=== PATIENT | male | born 1955 | race Caucasian/White ===

== ENCOUNTER 2025-06-23 22:57 | Emergency (ER) | payer SELFPAY ==
--- OUTSIDE RECORDS SUMMARY | 2025-06-04 17:25 | XMS_ITS | Encounter Summary ---
Author Organization [employer] [facility] tem Address [id number] [address] [place] [address] Care Team Providers Care Process Manager Name Role Phone Hansen Clarisadieudonne GUZMAN-GAME PROTECTOR Primary Care Provider Reason for Referral * Misc (Routine) - Pending ReviewSpecialtyDiagnoses / ProceduresReferred By ContactReferred To Contact Procedures Discharge Follow-Up Mable Marroquin MD [address] [place] [address] Phone: tel: fax: Referral IDStatusReasonStart DateExpiration DateVisits RequestedVisits [id number] * Misc (Routine) - Pending ReviewSpecialtyDiagnoses / ProceduresReferred By ContactReferred To Contact Diagnoses Nontraumatic intracerebral hemorrhage, unspecified cerebral location, unspecified laterality ([facility]) Procedures Follow-up with primary care provider Mable Marroquin MD [address] [place] [address] Phone: tel: fax: Referral IDStatusReasonStart DateExpiration DateVisits RequestedVisits [id number] * Diagnostic Imaging (Routine) - Pending ReviewSpecialtyDiagnoses / Procedures Referred By ContactReferred To ContactRadiology Diagnoses Nontraumatic intracerebral hemorrhage, unspecified cerebral location, unspecified laterality ([facility]) Procedures CT brain without contrast Mable Marroquin MD [address] [place] [address] Phone: tel: fax: Referral IDStatusReasonStart DateExpiration DateVisits RequestedVisits [id number] * Vascular (Routine) - AuthorizedSpecialtyDiagnoses / ProceduresReferred By ContactReferred To Contact Diagnoses Nontraumatic intracerebral hemorrhage, unspecified cerebral location, unspecified laterality ([facility]) Procedures Vas venous duplex lwr bilateral Mable Marroquin MD [address] [place] [address] Phone: tel: fax: Referral IDStatusReasonStart DateExpiration DateVisits RequestedVisits [id number]/31/202510/31/202666 Reason for Visit * ReasonCommentsFall * Auth/CertSpecialtyDiagnoses / ProceduresReferred By ContactReferred To Contact Diagnoses ICH (intracerebral hemorrhage) ([facility]) [facility] - Emergency Department [address] [place] [address] Phone: tel: fax: Referral IDStatusReasonStart DateExpiration DateVisits RequestedVisits [id number] Encounter Details DateTypeDepartmentCare Team (Latest Contact Info)Jxngapslzrr54/13/2025 5:25 PM EDT - 06/22/2025 5:58 PM EDTHospital Encounter [facility] - GEN 8 Acute [address] [facility] [place] [address] Carter Smith W, DO [address] [place] [address] Patricia Mcclellan MD [address] [place] [address], [facility] [address] [place] [address] Traumatic intracerebral hemorrhage with unknown loss of consciousness status, unspecified laterality, subsequent encounter (Primary Dx); Type 2 diabetes mellitus with other specified complication, unspecified whether detention insulin use ([facility]); Nontraumatic intracerebral hemorrhage, unspecified cerebral location, unspecified laterality [place] Discharge Disposition: [facility] Facility-Medicare Cert Social History Tobacco UseTypesPacks/DayYears UsedDateSmoking Tobacco: Every VvvHtljoiqqho260.8 Started: 1970Smokeless Tobacco: Never Tobacco Cessation:Ready to Q uit: No; Counseling Given: Yes Alcohol UseStandard Drinks/WeekCommentsYes0 (1 standard drink = 0.6 oz pure alcohol)[facility] UtilitiesAnswerDate RecordedIn the past 12 months has the [employer], gas, oil, or water fitaborate threatened to shut off services in your home?No 06/05/2025UDIT-CAnswerDate RecordedQ1: How often do you have a drink containing alcohol?Patient unable to kjhivb2606/05/2025Q2: How many drinks containing alcohol do you have on a typical day when you are drinking?Patient unable to answer 06/05/2025Q3: How often do you have six or more drinks on one occasion?Patient unable to tqxkbc4206/05/2025PRAPARE - TransportationAnswerDate RecordedIn the past 12 months, [...] as a part of a household?No5ChildcareAnswer Date OtrfpormBumcylxrxDbvarlz57/12/2019EmploymentAnswerDate RecordedEmployment Srvkdsf7102/01/2019Hunger ScreeningAnswerDate RecordedWithin the past 12 months we worried whether our food would run out before we got money to buy more.Never True06/11/2025Within the past 12 months the food we bought just didn't last and we didn't have money to get more.Never True06/11/2025Sex and Gender Information ValueDate RecordedSex Assigned at BirthNot on fileLegal PtoHhbm1203/28/2015 11:52 AM EDTGender IdentityNot on fileSexual OrientationNot on filedocumented as of this encounter Last Filed Vital Signs Vital SignReadingTime TakenCommentsBlood Uizjnugn602/6506/22/2025 11:12 AM EDT Uwdmr939706/22/2025 11:12 AM JXTDuykbeddjtj09.8 ??C (98.3 ??F)06/22/2025 11:12 AM EDTRespiratory Pacd012006/22/2025 11:12 AM EDTOxygen Neyiuawlaf49%06/22/2025 11:12 AM EDTInhaled Oxygen Concentration--Fdxkqj72.6 kg (215 lb 2.7 oz)06/22/2025 5:00 AM RWWCcxkow070.9 cm (6')06/12/2025 4:00 AM EDTBody Mass Index29.181 4:00 AM EDTdocumented in this encounter Functional Status * AUDIT-C ScoreAnswerDate of AssessmentAuthor- 10:09 AM Laura Johnson RN * QuestionAnswerDate of AssessmentAuthorQ1: How often do you have a drink containing alcohol?Patient unable to dyuojt6406/05/2025 10:09 AM Laura Johnson RNQ2: How many drinks containing alcohol do you have on a typical day when you are drinking?Patient unable to hxocxs4006/05/2025 10:09 AM Laura Johnson RNQ3: How often do you have six or more drinks on one occasion?Patient unable to znnmea4606/05/2025 10:09 AM Laura Johnson RN * QuestionAnswerDate of AssessmentAuthorFunctional QzcjdiXfzwpcphmwg86/14/2025 9:59 AM Laura Johnson RN documented as of this encounter Mental Status * QuestionAnswerEntry DateAuthorOverall Cognitive HeuxeyC33/27/2025 9:45 AM EDT Sue Hernandez OTA/Brendon * QuestionAnswerEntry DateAuthorOverall Cognitive LdulceL50/15/2025 9:37 AM EDT Gary Hernandez, RAKEL-HOSPITALITY DIRECTOR documented in this encounter Discharge Instructions * [...] of Discharge MedicationSigDispense QuantityRefillsLast FilledStart DateEnd Date aspirin 81 mg Take 1 tablet (81 mg total) by mouth in the morning. atorvastatin (LIPITOR) 20 mg tablet Take 1 tablet (20 mg total) by mouth every morning. TAKE 1 TABLET (20 MG) BY MOUTH IN THE LYGFOUH6705/15/2025 magnesium aspart,citrate,oxide (TRIPLE MAGNESIUM COMPLEX) 400 mg magnesium capsule Take 400 mg by mouth in the morning. ACCU-CHEK GUIDE ME GLUCOSE MTR misc USE DAILY OR DIRECTED FOR MONITORING OF DIABETES.05/15/2025 ACCU-CHEK GUIDE TEST STRIPS strip USE DAILY05/15/2025 ACCU-CHEK SOFTCLIX LANCETS lancets USE TO TEST DAILY05/15/2025 amLODIPine (NORVASC) 10 mg tablet Take 1 tablet (10 mg total) by mouth in the morning. 90 tablet carvediloL (COREG) 12.5 mg tablet Take 1 [...] mellitus with other specified complication, unspecified whether chain builder insulin use ([facility])Inject 12 Units under the skin in the morning. 15 mL 06/22/2025 insulin lispro (HumaLOG) 100 unit/mL insulin pen Give 6 units with meals and follow sliding scale 15 mL insulin lispro (HumaLOG) 100 unit/mL insulin pen Inject 1-5 Units under the skin 4 (four) times a day with meals and nightly. 15 mL QUEtiapine (SEROquel) 25 mg tablet Take 1 tablet (25 mg total) by mouth nightly. 30 tablet documented as of this encounter Progress Notes * [...] jelly in kit into urethra, advanced 16 Cymro coude into patient's bladder without difficulty, return of yellow urine. Patient tolerated well. As per previous note patient to discharge home with Mayo catheter, and follow up in 1-2 weeks [address]Dr. Bess to discuss possible options for intervention. - ANDREW SERNA 06/22/25 2:54 PM ANDREW Serna 06/22/25 1453 * Renita Matson DO - 06/22/2025 12:23 [...] which is 53. Rheumatoid factor is normal. Ymdk-bydjud-sulxntyf DNA is negative. LUIZA is negative. Glomerular [...] WEIGHT: Wt Readings from Last 3 Encounters: 06/22/25 97.6 kg (215 lb 2.7 oz) 06/04/25 [...] Results from last 7 days Lab Units 06/22/2579906/21/2560906/20/2561006/19/2560006/18/25 0555 SODIUM mmol/L 150* 148* 146 144 [...] from last 7 days Lab Units 06/22/25 0806/21/2560906/20/2561006/19/25 0606/18/25 0555 WBC x10E9/L 5.6 5.0 4.6 5.6 5.5 HEMOGLOBIN g/dL 13.6 13.2 13.3 13.4 13.6 HEMATOCRIT % 40.1 38.9* 39.3 39.3 39.6 PLATELETS X10E9/L 261 270 245 225 225 Results from last 7 days Lab Units 06/22/25 0806/21/2560906/20/2561006/19/25 0606/18/25 0555 PROTEIN TOTAL g/dL 7.2 7.0 6.9 [...] name. RENITA MATSON D.O. [facility] Thank you for your consultation and allowing us to participate in the care of Gianni Montelongo please do not hesitate to call us with any questions at: Office: [phone] Office Answering Service: [phone] Please feel free to contact me through [employer] chat during the daytime hours, if [...] which is 53. Rheumatoid factor is normal. Uprc-ukvnit-zpktmgze DNA is negative. LUIZA is negative. Glomerular [...] 3.9 3.7 3.7 3.8 3.7 AST U/L ALT U/L Vas venous duplex lwr bilateral Result Date: [...] name. RENITA MATSON D.O. [facility] Thank you for your consultation and allowing us to participate in the care of Gianni Montelongo please do not hesitate to call us with any questions at: Office: [phone] Office Answering Service: [phone] Please feel free to contact me through [employer] chat during the daytime hours, if [...] outside hospital and thereafter was transferred to [facility] via air. Past medical history significant [...] by the trauma service and transferred to [facility]. Upon arrival to [facility] ED, vascular neurology consulted. Upon my evaluation [...] Diagnosis Date Diabetes mellitus type 2, controlled ([facility] DVT (deep venous thrombosis) [place] GERD (gastroesophageal reflux disease) Hyperlipidemia Hypertension ICH (intracerebral hemorrhage) ([facility] 06/04/2025 Osteoarthritis Past surgical history: Past Surgical [...] and therefore the patient was transferred to [facility] for further workup. On examination, the patient [...] Heparin 5000U TID Staffed with: Dr. Rimma Butt MD PGY-2 Neurology Resident 06/21/25 11:30 [...] Tests, and Procedures: 06/06- failed BSSE 06/08- HOSPITALITY DIRECTOR still with NPO recs NGT placed 06/11- [...] (H) 06/05/2025 Lab Results Component Value Date NUWINTMC03 274 06/07/2025 Lab Results Component Value Date [...] injection 5,000 Units 5,000 Units subcutaneous Q8H [facility] Alphonse Cuenca MD 5,000 Units at 06/20/25 1332 hydrALAZINE (APRESOLINE) injection 10 mg 10 mg intravenous Q4H PRN Alphonse Cuenca MD 10 mg at 06/05/25 1430 hydrALAZINE (APRESOLINE) tablet 100 mg 100 mg oral Q8H [facility] Vicollin Yuko, DO 100 mg at 06/20/25 1332 [...] mg/mL premix) 4,000 mg intravenous PRN Alphonse uCenca MD melatonin (CIRCADIN) tablet 5 mg 5 [...] Nightly Alphonse Cuenca MD 25 mg at 06/19/252101 sodium phosphate 20 mmol in sodium chloride [...] at 06/20/25 0551 Nutrition Focused Physical Findings stools 2175ml UO Skin (per nursing flow sheets): Skin Color: [place]; Pale (06/20/25 1200) Skin Temp: Dry (06/20/25 [...] Frozen Dessert Supplement Frequency: TID 06/14/25 1053 Inpatient Nutrition Support History: 06/06- TF [...] 06/11) Admit Weight: 117.3kg (Bed Scale, 06/04) [place] Body Weight: 80.9kg Weight Changes: - Admit Body Mass Index: 35.1 kg/m??. Current Body Mass Index: Body mass index is 29.97 kg/m??. Comparative Standards: Estimated Energy Needs: 4041-2796 kcals daily. Method and weight used: 25-32 kcal/kg ibw Estimated Protein Needs: 97-160 grams daily. Method and weight used: 1.2-2g protein/kg ibw Estimated Fluid Needs: 9612-5608 ml daily. Method weight used: 1 ml/kg/kcal [...] EVALUATION: I/O,wts, labs, supplements, POC Pippa Cowart R.D,LRommel Clinical dietitian Patient Touch extension:[phone] Direct Dial phone number: [phone] 06/20/25 2:22 PM * Lux Anglin MD - 06/20/2025 1:00 PM EDT Images from the original note were not included. [facility] Endocrinology [facility] [address] [place] [address] Service Pager: Reinier Patel MD, Interim Chief MD Henry Mulligan MD Margo Joubran, PA-C Alexandrea Vizzaccaro, PA-C Austin Howard, PA-C Manali Pragani, MD, Fellow Herbie Zhao MD, Fellow Ricardo Real MD, Fellow Katrin Jules MD, Fellow NO NEED to PAGE for NEW CONSULTS Secure [employer] chat to Academic Endocrinology Page for immediate [...] appropriate. Blood glucoses above 200 mg/dl are [facility] monitored performance measures. 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 [...] Lux Anglin MD PGY 1 Internal Medicine [facility] Cosigned by Henry Godwin MD at 06/20/2025 [...] appropriate, while patient is in the hospital Henyr Godwin MD 06/20/25 * Ed Ortiz MD [...] which is 53. Rheumatoid factor is normal. Itzl-wsrnjf-efaejhld DNA is negative. LUIZA is negative. Glomerular [...] 114* 112* 110* 110* 112* CO2 mmol/L BUN mg/dL 47* 55* 55* 51* 54* [...] Units 06/20/25 0611 06/19/25 0601 06/18/25 0555 06/17/2508 06/16/25 0548 PROTEIN TOTAL g/dL 6.9 7.0 7.0 7.0 6.9 ALBUMIN g/dL 3.7 3.7 3.8 3.7 3.7 AST U/L 32 ALT U/L No results found. IMPRESSION: Acute Kidney Injuiry [...] scale Ed Ortiz M.D. [facility] Thank you for your consultation and allowing us to participate in the care of Gianni Montelongo please do not hesitate to call us with any questions at: Office: [phone] Office Answering Service: [phone] Please feel free to contact me through [employer] chat during the daytime hours, if [...] outside hospital and thereafter was transferred to [facility] via air. Past medical history significant [...] by the trauma service and transferred to [facility]. Upon arrival to [facility] ED, vascular neurology consulted. Upon my evaluation [...] Diagnosis Date Diabetes mellitus type 2, controlled ([facility] DVT (deep venous thrombosis) [place] GERD (gastroesophageal reflux disease) Hyperlipidemia Hypertension ICH (intracerebral hemorrhage) ([facility] 06/04/2025 Osteoarthritis Past surgical history: Past Surgical [...] and therefore the patient was transferred to [facility] for further workup. On examination, the patient [...] the original note were not included. Jr Mackenzie.Liborio M.D., Peter Bhatti M.D., Gianni Escalante M.D., Leatha [...] Eliquis, diabetes, and hypertension who presented to [facility] on 06/04/2025 due to altered mental status. [...] Units Date/Time Urine Culture Urine, Indwelling Catheter [[id number]] Collected: 06/17/25 1348 Specimen: Urine, Indwelling Catheter Updated: 06/18/25 1246 CULTURE RESULTS NO GROWTH AT <1000 CFU/mL Blood culture #1 [[id number]] Collected: 06/17/25 1320 Specimen: Blood, Venous Updated: 06/19/25 1401 CULTURE RESULTS NO GROWTH 2 DAYS Narrative: Suboptimal volume of blood collected, Results may be affected. Blood culture #2 [[id number]] Collected: 06/17/25 1320 Specimen: Blood, Venous Updated: [...] Units Date/Time Urine Culture Urine, Indwelling Catheter [[id number]] Collected: 06/17/25 1348 Specimen: Urine, Indwelling Catheter Updated: 06/18/25 1246 CULTURE RESULTS NO GROWTH AT <1000 CFU/mL Blood culture #1 [[id number]] Collected: 06/17/25 1320 Specimen: Blood, Venous Updated: 06/19/25 1401 CULTURE RESULTS NO GROWTH 2 DAYS Narrative: Suboptimal volume of blood collected, Results may be affected. Blood culture #2 [[id number]] Collected: 06/17/25 1320 Specimen: Blood, Venous Updated: [...] IMPRESSION: Feeding tube tip in stomach. Wo rkstation:[id number] Finalized by Alexis Sánchez MD on 06/09/2025 [...] from the original result were not included. [facility] Neurology Video/EEG Monitoring REPORT EEG Service Date(s): 06/06/25 from 06:30 until 10:35 Date of Report: 06/06/25 History: Gianni Babin is 70 y.o. male with a history of intraparenchymal hemorrhage and encephalopathy who isundergoing video/EEG monitoring to evaluate for seizures. Centrally active medications: Keppra Procedure: This video/EEG monitoring was acquired with electrodes placed according to the Wlbobcmxyqjwp11-79 electrode placement system,using collodion. The EEG was [...] the referring provider. Jennifer German M.D., Ph.D. [facility] Neurology X-ray abdomen NG Tube placement 1 [...] from the original result were not included. [facility] Neurology Video/EEG Monitoring REPORT EEG Service Date(s): 06/05/25 @ 06:30 until @ 06:30 Date of Report: 06/06/25 History: Gianni Babin is 70 y.o. male with a history of intraparenchymal hemorrhage and encephalopathywho is undergoing video/EEG monitoring to evaluate for seizures. Centrally active medications: Keppra Procedure: This video/EEG monitoring was acquired with electrodes placed according to the Zonxwngbaxmjp79-27 electrode placement system,using collodion. The EEG was [...] the referring provider. Jennifer German M.D., Ph.D. [facility] Neurology Background with right temporal slowing EEG Video Monitoring Daily Result Date: 06/05/2025 Narrative: Images from the original result were not included. [facility] Neurology Video/EEG Monitoring REPORT EEG Service Date(s): 06/05/25 form 04:27 until 06:30 Date of Report: 06/05/25 History: Gianni Babin is 70 y.o. male with a history of intraparenchymal hemorrhage and encephalopathy who isundergoing video/EEG monitoring to evaluate for seizures. Centrally active medications: Keppra Procedure: This video/EEG monitoring was acquired with electrodes placed according to the Oamuktekezauv90-75 electrode placement system,using collodion. The EEG was [...] seizures were recorded. Ronda Rowell M.D., Ph.D. [facility] Neurology Baseline Routine EEG Result Date: 06/05/2025 Narrative: Images from the original result were not included. PA Neurology EEG REPORT EEG Service Date: 06/05/25 Date of Report: 06/05/25 History: Gianni Babin is a 70 y.o. male with alteredmental status and right intraparenchymal hemorrhage who is undergoing EEG to evaluate for seizures. Centrally active medications: Keppra. Procedure: This EEG was acquired with electrodes placed according to the Dxirwcpkoyacv16-62 electrode placement system. The EEG was acquired [...] of intermittent seizures. Jennifer German M.D., Ph.D. [facility] Neurology Background CT brain without contrast [...] Automated exposure control was utilized. The [place] Symptomatic carotid Endarterectomy Trial (NASCET) method for [...] Patient asleep upon my arrival. IMPRESSIONS: 1. 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 Liborio Mann Jr., M.D. [facility] [phone] 3:40 p.m. on 06/20/2025 addendum: Discussed patient's [...] indwelling Mayo catheter. Liborio Mann Jr., M.D. [facility] [phone] * Katrin Jules MD - 06/19/2025 2:07 PM EDT Images from the original note were not included. [facility] Endocrinology [facility] [address] [place] [address] Service Pager: Reinier Patel MD, Interim Chief MD Henry Mulligan MD Margo Joubran, PACASSANDRA Jeffries PA-C Manali Pragani, MD, Fellow Herbie Zhao MD, Fellow Ricardo Real MD, Fellow Katrin Jules MD, Fellow NO NEED to PAGE for NEW CONSULTS Secure [employer] chat to Academic Endocrinology Page for immediate attention. Diabetes Management Service Progress Note Patient : Gianni Babin; 70 y.o. Location: [facility] Admit Date: 06/04/2025 Hospital Day: [...] appropriate. Blood glucoses above 200 mg/dl are [facility] monitored performance measures. 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 [...] 110* 112* -- 116* CO2 mmol/L 23 -- 24 BUN mg/dL 55* 55* [...] which is 53. Rheumatoid factor is normal. Jmor-tndosr-ldivjkmw DNA is negative. LUIZA is negative. Glomerular [...] scale Ed Ortiz M.D. [facility] Thank you for your consultation and allowing us to participate in the care of Gianni Montelongo please do not hesitate to call us with any questions at: Office: [phone] Office Answering Service: [phone] Please feel free to contact me through [employer] chat during the daytime hours, if [...] outside hospital and thereafter was transferred to [facility] via air. Past medical history significant [...] by the trauma service and transferred to [facility]. Upon arrival to [facility] ED, vascular neurology consulted. Upon my evaluation [...] Diagnosis Date Diabetes mellitus type 2, controlled [place] DVT (deep venous thrombosis) [place] GERD (gastroesophageal reflux disease) Hyperlipidemia Hypertension ICH (intracerebral hemorrhage) ([facility] 06/04/2025 Osteoarthritis Past surgical history: Past Surgical [...] and therefore the patient was transferred to [facility] for further workup. On examination, the patient [...] Eliquis, diabetes, and hypertension who presented to [facility] on 06/04/2025 due to altered mental status. [...] Intake/Output Summary (Last 24 hours) at 06/19/2025 075 Last data filed at 06/19/2025 0413 Gross [...] Units Date/Time Urine Culture Urine, Indwelling Catheter [[id number]] Collected: 06/17/25 1348 Specimen: Urine, Indwelling Catheter Updated: 06/18/25 1246 CULTURE RESULTS NO GROWTH AT <1000 CFU/mL Blood culture #1 [[id number]] Collected: 06/17/25 1320 Specimen: Blood, Venous Updated: 06/19/25201 CULTURE RESULTS NO GROWTH AT 36 HOURS Narrative: Suboptimal volume of blood collected, Results may be affected. Blood culture #2 [[id number]] Collected: 06/17/25 1320 Specimen: Blood, Venous Updated: 06/19/25201 CULTURE RESULTS NO GROWTH AT 36 HOURS [...] Units Date/Time Urine Culture Urine, Indwelling Catheter [[id number]] Collected: 06/17/25 1348 Specimen: Urine, Indwelling Catheter Updated: 06/18/25 1246 CULTURE RESULTS NO GROWTH AT <1000 CFU/mL Blood culture #1 [[id number]] Collected: 06/17/25 1320 Specimen: Blood, Venous Updated: 06/19/25 0202 CULTURE RESULTS NO GROWTH AT 36 HOURS Narrative: Suboptimal volume of blood collected, Results may be affected. Blood culture #2 [[id number]] Collected: 06/17/25 1320 Specimen: Blood, Venous Updated: [...] IMPRESSION: Feeding tube tip in stomach. Wo rkstation:[id number] Finalized by Alexis Sánchez MD on 06/09/2025 [...] from the original result were not included. PA Neurology Video/EEG Monitoring REPORT EEG Service Date(s): 06/06/25 from 06:30 until 10:35 Date of Report: 06/06/25 History: Gianni Babin is 70 y.o. male with a history of intraparenchymal hemorrhage and encephalopathy who isundergoing video/EEG monitoring to evaluate for seizures. Centrally active medications: Keppra Procedure: This video/EEG monitoring was acquired with electrodes placed according to the Tmglxtnkaxzro54-66 electrode placement system,using collodion. The EEG was [...] the referring provider. Jennifer German M.D., Ph.D. [facility] X-ray abdomen NG Tube placement 1 [...] from the original result were not included. [facility] Neurology Video/EEG Monitoring REPORT EEG Service Date(s): 06/05/25 @ 06:30 until @ 06:30 Date of Report: 06/06/25 History: Gianni Babin is 70 y.o. male with a history of intraparenchymal hemorrhage and encephalopathywho is undergoing video/EEG monitoring to evaluate for seizures. Centrally active medications: Keppra Procedure: This video/EEG monitoring was acquired with electrodes placed according to the Kwlelslgdfpnd46-20 electrode placement system,using collodion. The EEG was [...] the referring provider. Jennifer German M.D., Ph.D. [facility]rology Background with right temporal slowing EEG Video Monitoring Daily Result Date: 06/05/2025 Narrative: Images from the original result were not included. [facility] Neu[facility] Video/EEG Monitoring REPORT EEG Service Date(s): 06/05/25 form 04:27 until 06:30 Date of Report: 06/05/25 History: Gianni Babin is 70 y.o. male with a history of intraparenchymal hemorrhage and encephalopathy who isundergoing video/EEG monitoring to evaluate for seizures. Centrally active medications: Keppra Procedure: This video/EEG monitoring was acquired with electrodes placed according to the Rwgdvwcylykng45-47 electrode placement system,using collodion. The EEG was [...] seizures were recorded. Ronda Rowell M.D., Ph.D. [facility] Baseline Routine EEG Result Date: 06/05/2025 Narrative: Images from the original result were not included. [facility] Neurology EEG REPORT EEG Service Date: 06/05/25 Date of Report: 06/05/25 History: Gianni Babin is a 70 y.o. male with alteredmental status and right intraparenchymal hemorrhage who is undergoing EEG to evaluate for seizures. Centrally active medications: Keppra. Procedure: This EEG was acquired with electrodes placed according to the Uutxfpamxelix80-95 electrode placement system. The EEG was acquired [...] of intermittent seizures. Jennifer German M.D., Ph.D. [facility] Neurology Background CT brain without contrast [...] Automated exposure control was utilized. The [place] Symptomatic carotid Endarterectomy Trial (NASCET) method for [...] orientation based on speech difficulties. IMPRESSIONS: 1. 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 Liborio Mann Jr., M.D. [facility] [phone] 5:31 p.m. on 06/19/2025 addendum: Very helpful [...] this patient's care. Liborio Mann Jr., M.D. [facility] [phone] * Lux Anglin MD - 06/18/2025 1:25 PM EDT Images from the original note were not included. [facility]ocrinology [facility] [address] [place] [address] Service Pager: Reinier Patel MD, Interim Chief MD Henry Mulligan MD Margo Joubran, CASSANDRA Seth PA-C Manali Pragani, MD, Fellow Herbie Zhao MD, Fellow Ricardo Real MD, Fellow Katrin Jules MD, Fellow NO NEED to PAGE for NEW CONSULTS Secure epic chat to Academic Endocrinology Page for immediate attention. Diabetes Management Service Progress Note Patient : Gianni Babin; 70 y.o. Location: [place] [address] Admit Date: 06/04/2025 Hospital Day: Hospital Day: [...] appropriate. Blood glucoses above 200 mg/dl are [facility] monitored performance measures. 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 [...] 112* CO2 mmol/L 23 -- 24 25 BUN mg/dL 55* 51* 54* -- 49* [...] Lux Anglin MD PGY 1 Internal Medicine [facility] Cosigned by Henry Godwin MD at 06/18/2025 [...] 112* -- 116* 112* CO2 mmol/L 23 26 23 -- 24 25 ANION GAP mmol/L [...] -- 25 32 27 28 ALT U/L - 24 17 15 BILIRUBIN, TOTAL mg/dL 0.6 [...] PLATELETS X10E9/L 225 237 213 201 217 @RESUFAST(IRON,TIBC,FERRITIN,IRONSAT,FOLATE,[id number]))@ Results from last 7 days Lab Units [...] which is 53. Rheumatoid factor is normal. Lfdu-qxxaag-udkonavb DNA is negative. LUIZA is negative. Glomerular [...] For questions please call: Answering Service at [phone] Or Office at [phone] This note was created with the assistance of a speech-recognition program. Although the intention is to generate a document that actually reflects the content of the visit, no guarantees can be provided that every mistake has been identified and corrected by editing. * Guzman Lees MD - 06/18/2025 9:13 AM EDT Images from the original note were not included. Jr. Mann Gregor, M.D., Peter Bhatti M.D., Gianni Escalante M.D., Leatha [...] Eliquis, diabetes, and hypertension who presented to [facility] on 06/04/2025 due to altered mental status. [...] ??F) Axillary 71 23 100 % -- 06/17/25 220 -- -- -- 73 19 99 % [...] Units Date/Time Urine Culture Urine, Indwelling Catheter [[id number]] Collected: 06/17/25 1348 Specimen: Urine, Indwelling Catheter Updated: 06/17/251417 Blood culture #1 [[id number]] Collected: 06/17/251319 Specimen: Blood, Venous Updated: 06/18/25202 CULTURE RESULTS NO GROWTH <24 HRS Narrative: Suboptimal volume of blood collected, Results may be affected. Blood culture #2 [[id number]] Collected: 06/17/251319 Specimen: Blood, Venous Updated: 06/18/25202 CULTURE RESULTS [...] Units Date/Time Urine Culture Urine, Indwelling Catheter [[id number]] Collected: 06/17/25 1348 Specimen: Urine, Indwelling Catheter Updated: 06/17/25 1418 Blood culture #1 [[id number]] Collected: 06/17/25 1320 Specimen: Blood, Venous Updated: 06/18/25202 CULTURE RESULTS NO GROWTH <24 HRS Narrative: Suboptimal volume of blood collected, Results may be affected. Blood culture #2 [[id number]] Collected: 06/17/25 1320 Specimen: Blood, Venous Updated: 10/27/25 0203 CULTURE RESULTS NO GROWTH <24 HRS Narrative: [...] compressible popliteal, posterior tibial and peroneal veins withisoechoic intraluminal content andspontaneous spectral Doppler signals. Common femoral, femoral anddeep calf muscle veins are compressible without intraluminal content. Spontaneous puldatile common femoral, and femoral spectral Doppler signals. Evaluation of superficial veins was not performed. General: In-patient, bedside examination. Conclusions: RIGHT:NO EVIDENCE of deep vein thrombosis (DVT)of the lower extremity. LEFT:CHRONIC post thrombotic popliteal [...] IMPRESSION: Feeding tube tip in stomach. Wo rkstation:[id number] Finalized by Alexis Sánchez MD on 06/09/2025 [...] from the original result were not included. [facility] Neurology Video/EEG Monitoring REPORT EEG Service Date(s): 06/06/25 from 06:30 until 10:35 Date of Report: 06/06/25 History: Gianni Babin is 70 y.o. male with a history of intraparenchymal hemorrhage and encephalopathy who isundergoing video/EEG monitoring to evaluate for seizures. Centrally active medications: Keppra Procedure: This video/EEG monitoring was acquired with electrodes placed according to the Zqwsxyrzudwbx81-26 electrode placement system,using collodion. The EEG was [...] the referring provider. Jennifer German M.D., Ph.D. [facility] Neurology X-ray abdomen NG Tube placement 1 [...] from the original result were not included. [facility] Neurology Video/EEG Monitoring REPORT EEG Service Date(s): 06/05/25 @ 06:30 until @ 06:30 Date of Report: 06/06/25 History: Gianni Babin is 70 y.o. male with a history of intraparenchymal hemorrhage and encephalopathywho is undergoing video/EEG monitoring to evaluate for seizures. Centrally active medications: Keppra Procedure: This video/EEG monitoring was acquired with electrodes placed according to the Kbinzmagrpfsv64-60 electrode placement system,using collodion. The EEG was [...] the referring provider. Jennifer German M.D., Ph.D. [facility]rology Background with right temporal slowing EEG Video Monitoring Daily Result Date: 06/05/2025 Narrative: Images from the original result were not included. [facility] Neurology Video/EEG Monitoring REPORT EEG Service Date(s): 06/05/25 form 04:27 until 06:30 Date of Report: 06/05/25 History: Gianni Babin is 70 y.o. male with a history of intraparenchymal hemorrhage and encephalopathy who isundergoing video/EEG monitoring to evaluate for seizures. Centrally active medications: Keppra Procedure: This video/EEG monitoring was acquired with electrodes placed according to the Mfldencbxcsxu28-04 electrode placement system,using collodion. The EEG was [...] seizures were recorded. Ronda Rowell M.D., Ph.D. [facility]rology Baseline Routine EEG Result Date: 06/05/2025 Narrative: Images from the original result were not included. [facility] Neurology EEG REPORT EEG Service Date: 06/05/25 Date of Report: 06/05/25 History: Gianni Babin is a 70 y.o. male with alteredmental status and right intraparenchymal hemorrhage who is undergoing EEG to evaluate for seizures. Centrally active medications: Keppra. Procedure: This EEG was acquired with electrodes placed according to the Nftfslyzyvkte00-84 electrode placement system. The EEG was acquired [...] of intermittent seizures. Jennifer German M.D., Ph.D. [facility] Neurology Background CT brain without contrast Result [...] Automated exposure control was utilized. The [place] Symptomatic carotid Endarterectomy Trial (NASCET) method for [...] speaks or attempts to speak. IMPRESSIONS: 1. 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 Liborio Mann Jr., M.D. [facility] [phone] * Alphonse Cuenca MD - 06/18/2025 8:50 [...] outside hospital and thereafter was transferred to [facility] via air. Past medical history significant [...] by the trauma service and transferred to [facility]. Upon arrival to [facility] ED, vascular neurology consulted. Upon my evaluation [...] Diagnosis Date Diabetes mellitus type 2, [place] [place]deep [place] [place] GERD (gastroesophageal reflux disease) Hyperlipidemia Hypertension [place] (intracerebral hemorrhage) [place] [place] 06/04/2025 Osteoarthritis Past surgical history: Past Surgical [...] and therefore the patient was transferred to [facility] for further workup. On examination, the patient [...] which is 53. Rheumatoid factor is normal. Pibj-buhiua-kwqpeucz DNA is negative. LUIZA is negative. Glomerular [...] Units 06/17/25 0608 06/16/25 0548 06/15/25 1752 06/15/2559 06/14/2562406/13/25 0558 SODIUM mmol/L 141 145 147* 148* 146 146 POTASSIUM mmol/L 4.3 4.8 4.5 4.4 5.1* 4.7 CHLORIDE mmol/L 110* 112* -- 116* 112* 109 CO2 mmol/L -- BUN mg/dL 51* 54* -- 49* 39* 36* CREATININE mg/dL 1.99* 1.93* -- 1.81* 1.67* 1.61* CALCIUM mg/dL 9.4 9.3 -- 9.1 9.4 9.5 MAGNESIUM mg/dL 2.6 2.6 -- 2.8* 2.5 2.4 PHOSPHORUS mg/dL 4.7 5.1* -- 4.5 4.1 3.5 Results from last 7 days Lab Units 06/17/25 0608 06/16/25 0548 06/15/2559 06/14/2562406/13/25 0558 WBC x10E9/L 5.5 5.5 4.2 6.5 6.3 HEMOGLOBIN g/dL 14.1 13.2 13.1 13.9 14.4 HEMATOCRIT % 41.0 38.8* 38.5* 40.9 41.9 PLATELETS X10E9/L 237 213 201 217 217 Results from last 7 days Lab Units 06/17/25 0608 06/16/25 0548 06/15/25 0659 06/14/2562406/13/25 0558 PROTEIN TOTAL g/dL 7.0 6.9 6.6 [...] family Ed Ortiz M.D. [facility] Thank you for your consultation and allowing us to participate in the care of Gianni Montelongo please do not hesitate to call us with any questions at: Office: [phone] Office Answering Service: [phone] Please feel free to contact me through [employer] Secure chat during the daytime hours, if [...] outside hospital and thereafter was transferred to [facility] via air. Past medical history significant [...] by the trauma service and transferred to [facility]. Upon arrival to [facility] ED, vascular neurology consulted. Upon my evaluation [...] Diagnosis Date Diabetes mellitus type 2, controlled [place] [place]deep [place] [place] [place] GERD (gastroesophageal reflux disease) Hyperlipidemia Hypertension [place]CH (intracerebral hemorrhage) [place] [place] [place] 06/04/2025 Osteoarthritis Past surgical history: Past Surgical [...] and therefore the patient was transferred to [facility] for further workup. On examination, the patient [...] 06/17/2025 7:38 AM EDT UROLOGY PROGRESS NOTE NUIQSUT: Enlarged bladder bilateral hydroureteronephrosis with intracranial hemorrhage. [...] on the drainage pattern there. IMPRESSIONS: 1. 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 Emphasizedthis [...] all oriented. Labs as above. IMPRESSIONS: 1. 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 Liborio Mann Jr., M.D. [facility] [phone] * Ed Ortiz MD - 06/16/2025 12:35 [...] which is 53. Rheumatoid factor is normal. Jjhc-angsad-feydiblg DNA is negative. LUIZA is negative. Glomerular [...] 7 days Lab Units 06/16/25 0548 06/15/25 1752 06/15/25 0659 06/14/25 0625 06/13/25 0558 06/12/25 0424 SODIUM mmol/L 145 147* 148* 146 146 144 POTASSIUM mmol/L 4.8 4.5 4.4 5.1* 4.7 4.6 CHLORIDE mmol/L 112* -- 116* 112* 109 103 CO2 mmol/L BUN mg/dL 54* -- 49* 39* 36* 32* CREATININE mg/dL 1.93* -- 1.81* 1.67* 1.61* 1.62* CALCIUM mg/dL 9.3 -- 9.1 9.4 9.5 9.9 MAGNESIUM mg/dL 2.6 -- 2.8* 2.5 2.4 2.6 PHOSPHORUS mg/dL 5.1* -- 4.5 4.1 3.5 4.6 Results from last 7 days Lab Units 06/16/2548 06/15/2559 06/14/2525 06/13/25 0558 06/12/25 0424 WBC x10E9/L 5.5 4.2 6.5 6.3 5.0 HEMOGLOBIN g/dL 13.2 13.1 13.9 14.4 13.9 HEMATOCRIT % 38.8* 38.5* 40.9 41.9 40.7 PLATELETS X10E9/L 213 201 217 217 211 Results from last 7 days Lab Units 06/16/25 0548 06/15/2559 06/14/2562406/13/2558 06/12/25 0424 PROTEIN TOTAL g/dL 6.9 6.6 [...] stasis on the left may be present. Workstation:[id number] by Bradford Marroquin MD on 06/15/2025 4:29 [...] family Ed Ortiz M.D. [facility] Thank you for your consultation and allowing us to participate in the care of Gianni Montelongo please do not hesitate to call us with any questions at: Office: [phone] Office Answering Service: [phone] Please feel free to contact me through [employer] Secure chat during the daytime hours, if [...] 06/16/2025 9:39 AM EDT UROLOGY PROGRESS NOTE NUIQSUT: Enlarged bladder bilateral hydroureteronephrosis with intracranial hemorrhage [...] on the drainage pattern there. IMPRESSIONS: 1. 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 Emphasizedthis is not an emergent situation. We will follow with you. Thank you very much. I appreciate being asked to help with this patient's care. Liborio Mann Jr., M.D. [facility] [phone] * Alphonse Cuenca MD - 06/16/2025 8:18 AM EDT Neurovascular / Interventional neurology Intraparenchymal Hemorrhage Progress Note Date of admission 06/04/2025 5:25 PM PCP: CLARISA HANSEN APRN-GAME PROTECTOR Reason of admission: IPH Deficit: AMS Last [...] outside hospital and thereafter was transferred to [facility] via air. Past medical history significant [...] by the trauma service and transferred to [facility]. Upon arrival to [facility] ED, vascular neurology consulted. Upon my evaluation [...] Diagnosis Date Diabetes mellitus type 2, controlled [place] [place] [place]deep venous [place] [place] GERD (gastroesophageal reflux disease) Hyperlipidemia Hypertension [place] (intracerebral hemorrhage) [place] [place] [place] 06/04/2025 Osteoarthritis Past surgical history: Past Surgical [...] stasis on the left may be present. Workstation:[id number] by Bradford Marroquin MD on 06/15/2025 4:29 [...] and therefore the patient was transferred to [facility] for further workup. On examination, the patient [...] from the original note were not included. [facility] [address] [place] [address] Service Pager: Reinier Patel MD, Interim Chief MD Henry Mulligan MD Margo Joubran, CASSANDRA Bettencourt, CASSANDRA Marmolejo MD, Fellow Herbie Zhao MD, Fellow Ricardo Real MD, Fellow Katrin Jules MD, Fellow NO NEED to PAGE for NEW CONSULTS Secure [employer] chat to Academic Endocrinology Page for immediate [...] appropriate. Blood glucoses above 200 mg/dl are [facility] monitored performance measures. 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 [...] 0625 06/13/25 0558 06/12/25 0424 06/11/25 0305 SODIUM mmol/L 148* 146 146 144 140 POTASSIUM mmol/L 4.4 5.1* 4.7 4.6 4.3 CHLORIDE mmol/L 116* 112* 109 103 103 CO2 mmol/L 28 31 27 BUN mg/dL 49* 39* [...] which is 53. Rheumatoid factor is normal. Ujpy-jeoaqj-qucoxrvz DNA is negative. LUIZA is negative. Glomerular [...] 0625 06/13/25 0558 06/12/25 0424 06/11/25 0305 SODIUM mmol/L [...] 7 days Lab Units 06/15/25 0659 06/14/25 0606/13/25 0558 06/12/2542306/11/25 0305 PROTEIN TOTAL g/dL 6.6 7.1 7.2 6.7 6.7 ALBUMIN g/dL 3.6 3.7 3.8 3.6 3.6 AST U/L 27 28 20 18 14 ALT U/L 17 15 16 14 7 BILIRUBIN, TOTAL mg/dL 0.5 0.6 0.6 0.5 0.4 ALK PHOS U/L 77 76 75 72 68 Results from last 7 days Lab Units 06/15/25 0659 06/14/25 0606/13/25 0558 06/12/2542306/11/25 0305 WBC x10E9/L 4.2 6.5 6.3 5.0 5.4 HEMOGLOBIN g/dL 13.1 13.9 14.4 13.9 13.3 HEMATOCRIT % 38.5* 40.9 41.9 40.7 39.2 PLATELETS X10E9/L 201 217 217 211 203 @RESUFAST(IRON,TIBC,FERRITIN,IRONSAT,FOLATE,[id number]))@ Results from last 7 days Lab Units 06/15/25 0759 06/15/25 0659 06/14/25 21006/14/25 1632 06/14/25 1145 BEDSIDE GLUCOSE mg/dL 146* -- 107* 145* 210* GLUCOSE mg/dL -- 140* -- -- -- Results from last 7 days Lab Units 06/12/2542306/11/25 0305 06/10/25 0252 BNP pg/mL 101* 314* [...] For questions please call: Answering Service at [phone] Or Office at [phone] This note was created with the assistance [...] outside hospital and thereafter was transferred to [facility] via air. Past medical history significant [...] by the trauma service and transferred to [facility]. Upon arrival to [facility] ED, vascular neurology consulted. Upon my evaluation [...] Diagnosis Date Diabetes mellitus type 2, controlled [place] [place] [place] GERD (gastroesophageal reflux disease) Hyperlipidemia Hypertension [place]intracerebral hemorrhage) [place] [place] [place] 06/04/2025 Osteoarthritis Past surgical history: Past Surgical [...] and therefore the patient was transferred to [facility] for further workup. On examination, the patient [...] F/u with vascular surgery to see if nursing home AC is needed. * ANDREW Serna - [...] which is 53. Rheumatoid factor is normal. Borf-ifaunp-msqnlqaj DNA is negative. LUIZA is negative. Glomerular [...] ??C (97.1 ??F) Pulse: [60-89] 65 Resp: [17-] 23 BP: (113-149)/(48-89) 129/75 SpO2: [95 %-98 [...] Results from last 7 days Lab Units 06/14/2562406/13/2555706/12/2542306/11/2530406/10/25 025 SODIUM mmol/L 146 146 144 140 147* [...] Results from last 7 days Lab Units 06/14/2562406/13/2555706/12/2542306/11/2530406/10/25 025 PROTEIN TOTAL g/dL 7.1 7.2 6.7 6.7 6.4 ALBUMIN g/dL 3.7 3.8 3.6 3.6 3.4 AST U/L 28 20 18 14 13 ALT U/L 15 16 14 7 11 BILIRUBIN, TOTAL mg/dL 0.6 0.6 0.5 0.4 0.5 ALK PHOS U/L 76 75 72 68 64 Results from last 7 days Lab Units 06/14/2562406/13/2555706/12/2542306/11/2530406/10/25 025 WBC x10E9/L 6.5 6.3 5.0 5.4 4.9 HEMOGLOBIN g/dL 13.9 14.4 13.9 13.3 13.1 HEMATOCRIT % 40.9 41.9 40.7 39.2 38.5* PLATELETS X10E9/L 217 217 211 203 209 @RESUFAST(IRON,TIBC,FERRITIN,IRONSAT,FOLATE,[id number]))@ Results from last 7 days Lab Units 06/14/25 1145 06/14/25 0902 06/14/25 0625 06/13/25 2057 06/13/25 1717 BEDSIDE GLUCOSE mg/dL 210* 156* -- [...] For questions please call: Answering Service at [phone] Or Office at [phone] This note was created with the assistance of a speech-recognition program. Although the intention is to generate a document that actually reflects the content of the visit, no guarantees can be provided that every mistake has been identified and corrected by editing. * Lux Anglin MD - 06/14/2025 1:15 PM EDT Images from the original note were not included. [facility] [address] [place] [address] Service Pager: Reinier Patel MD, Interim Chief MD eHnry Mulligan MD Margo Joubran, PA-C Alexandrea Vizzaccaro, PA-C Austin Howard, PA-C Manali Pragani, MD, Fellow Herbie Zhao MD, Fellow Ricardo Real MD, Fellow Katrin Jules MD, Fellow NO NEED to PAGE for NEW CONSULTS Secure [employer] chat to Academic Endocrinology Page for immediate attention. Diabetes Management Service Progress Note Patient : Gianni Babin; 70 y.o. Location: 830 Admit Date: 06/04/2025 Hospital Day: Hospital Day: [...] diabetic management, he did not follow any linotype machinist in thecompliance with the metformin is questionable. [...] Results from last 7 days Lab Units 06/14/2562406/13/2558 06/12/2542306/11/25 03006/10/25 0252 WBC x10E9/L 6.5 6.3 5.0 5.4 4.9 HEMOGLOBIN g/dL 13.9 14.4 13.9 13.3 13.1 HEMATOCRIT % 40.9 41.9 40.7 39.2 38.5* PLATELETS X10E9/L 217 217 211 203 209 Results from last 7 days Lab Units 06/14/2562406/13/2555706/12/2542306/11/2530406/10/25 0252 SODIUM mmol/L 146 146 144 140 [...] Results from last 7 days Lab Units 06/14/2562406/13/2555706/12/2542306/11/25 03006/10/25 0252 ALBUMIN g/dL 3.7 3.8 3.6 3.6 3.4 Last HbA1c: Lab Results Component Value Date HGBA1C 8.3 (H) 06/07/2025 Lux Garcia MD Pgy 1 Internal Medicine [facility] Cosigned by Henry Godwin MD at 06/14/2025 [...] 10 days Admission Diagnosis: ICH (intracerebral hemorrhage) (CMS-HCC) [I61.9] ST elevation [R94.31] Reviewing patient due to his recent transfer out from Intensive Care. Recorded vital signs are stable and the patient is not noted to be in any apparent distress. Telemetry and monitoring noted. Staff may call with any issues or concerns regarding his clinical presentation or stability. Thank you, Christiano Viera RN Rapid Response: [facility] * BRANDON Barahona - 06/14/2025 9:59 AM EDT NUTRITION ADULT FOLLOW UP NUTRITION ASSESSMENT: Patient History: Brief Clinical Summary: Pt admitted for ICH. Not ready for oral feedings per HOSPITALITY DIRECTOR eval today. Past medical history significant for hypertension, DM, HLD, Obesity, DM2, recent DVT on Eliquis. Renal following. NOTE IVF has been discontinued. Biochemical Data, Medical Tests, and Procedures: 06/06- failed BSSE 06/08- HOSPITALITY DIRECTOR still with NPO recs NGT placed 06/11- pulled out NGT 06/12- VFSS- passed for pureed no oral fluids Labs: Results from last 3 days Lab Units 06/14/2562406/13/2555706/12/25 042 SODIUM mmol/L 146 146 144 POTASSIUM mmol/L [...] Results from last 3 days Lab Units 06/14/2562406/13/2558 06/12/25 042 WBC x10E9/L 6.5 6.3 5.0 HEMOGLOBIN g/dL 13.9 14.4 13.9 HEMATOCRIT % 40.9 41.9 40.7 PLATELETS X10E9/L 217 217 211 MCV fL 93 93 92 Results from last 3 days Lab Units 06/14/2562406/13/2555706/12/25 0424 06/11/25 1310 MAGNESIUM mg/dL 2.5 2.4 2.6 -- IONIZED MAGNESIUM mmol/L -- -- -- 0.70 Results from last 3 days Lab Units 06/14/2562406/13/25 0558 06/12/25 0424 PHOSPHORUS mg/dL 4.1 3.5 [...] (H) 06/05/2025 Lab Results Component Value Date [id number] 274 06/07/2025 Lab Results Component Value Date [...] injection 5,000 Units 5,000 Units subcutaneous Q8H [facility] Alphonse Cuenca MD 5,000 Units at 06/14/25 0504 hydrALAZINE (APRESOLINE) injection 10 mg 10 mg intravenous Q4H PRN Alphonse Cuenca MD 10 mg at 06/05/25 1430 hydrALAZINE (APRESOLINE) tablet 25 mg 25 mg oral Q8H [facility] Alphonse Cuenca MD 25 mg at 06/14/25 0504 insulin glargine (LANTUS, SEMGLEE) injection pen 10 Units 10 Units subcutaneous Daily Lux Anglin MD 10 Units at 06/13/25 1444 insulin lispro (HumaLOG) injection 1-5 Units 1-5 Units subcutaneous With meals and nightly Lux Anglin MD 4 Units at 06/13/25 1813 insulin lispro (HumaLOG) injection 1-5 Units 1-5 Units subcutaneous With meals and nightly Lux Anglin MD 1 Units at 06/13/252155 labetaloL (NORMODYNE,TRANDATE) injection 10 mg 10 mg intravenous Q5 Min PRN Alphonse Cuenca MD 10 mgat 06/10/25 192 lisinopriL (PRINIVIL,ZESTRIL) tablet 40 mg 40 mg [...] Skin (per nursing flow sheets): Skin Color: [place]; Pale (06/13/252199) Skin Temp: Cool; Dry (06/13/252199) [...] 06/11) Admit Weight: 117.3kg (Bed Scale, 06/04) [place] Body Weight: 80.9kg Weight Changes: - Admit Body Mass Index: 35.1 kg/m??. Current Body Mass Index: Body mass index is 30.26 kg/m??. Comparative Standards: Estimated Energy Needs: 3062-1674 kcals daily. Method and weight used: 25-32 kcal/kg ibw Estimated Protein Needs: 97-160 grams daily. Method and weight used: 1.2-2g protein/kg ibw Estimated Fluid Needs: 5954-4514 ml daily. Method weight used: 1 ml/kg/kcal [...] I/O,wts, labs TF tolerance, POC Pippa Cowart R.D, L.D. Clinical dietitian Patient Touch extension:[phone] Direct Dial phone number: [phone] 06/14/25 10:00 AM * Mable Butt MD [...] outside hospital and thereafter was transferred to [facility] via air. Past medical history significant [...] by the trauma service and transferred to [facility]. Upon arrival to [facility] ED, vascular neurology consulted. Upon my evaluation [...] Diagnosis Date Diabetes mellitus type 2, [place] GERD (gastroesophageal reflux disease) Hyperlipidemia Hypertension ICH (intracerebral hemorrhage) [place] [place] 06/04/2025 Osteoarthritis Past surgical history: Past Surgical [...] and therefore the patient was transferred to [facility] for further workup. On examination, the patient [...] 9 days Admission Diagnosis: ICH (intracerebral hemorrhage) (CMS-HCC) [I61.9] ST elevation [R94.31] Reviewing patient due to his recent transfer out from Intensive Care. Recorded vital signs are stable and the patient is not noted to be in any apparent distress. Telemetry and monitoring noted. Staff may call with any issues or concerns regarding his clinical presentation or stability. Thank you, Anuj Zheng RN Rapid Response: [facility] * Curt Vogt MD - 06/13/2025 1:43 [...] 0424 06/11/25 0305 06/10/25 0252 06/09/25 0316 WBC x10E9/L 6.3 5.0 5.4 4.9 5.1 HEMOGLOBIN g/dL 14.4 13.9 13.3 13.1 12.8* HEMATOCRIT % 41.9 40.7 39.2 38.5* 37.2* PLATELETS X10E9/L 217 211 203 209 186 @RESUFAST(IRON,TIBC,FERRITIN,IRONSAT,FOLATE,[id number]))@ Results from last 7 days Lab Units [...] which is 53. Rheumatoid factor is normal. Mpgi-dafznz-lfpvppox DNA is negative. LUIZA isnegative. Glomerular basement [...] For questions please call: Answering Service at [phone] Or Office at [phone] This note was created with the assistance of a speech-recognition program. Although the intention is to generate a document that actually reflects the content of the visit, no guarantees can be provided that every mistake has been identified and corrected by editing. * Lux Anglin MD - 06/13/2025 11:27 AM EDT Images from the original note were not included. [facility] Academic Endocrinology [facility] [address] [place] [address] Service Pager: Reinier Patel MD, Interim Chief MD Henry Mulligan MD Margo Joubran, CASSANDRA Bettencourt, CASSANDRA Marmolejo MD, Fellow Herbie Zhao MD, Fellow Ricardo Real MD, Fellow Katrin Jules MD, Fellow NO NEED to PAGE for NEW CONSULTS Secure epic chat to Academic Endocrinology Page for immediate attention. Diabetes Management Service Progress Note Patient : Gianni Babin; 70 y.o. Location: [place] [address] Admit Date: 06/04/2025 Hospital Day: Hospital Day: [...] appropriate. Blood glucoses above 200 mg/dl are [facility] monitored performance measures. 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 [...] Results from last 7 days Lab Units 06/13/2555706/12/2542306/11/2530406/10/2525106/09/256 WBC x10E9/L 6.3 5.0 5.4 4.9 5.1 HEMOGLOBIN g/dL 14.4 13.9 13.3 13.1 12.8* HEMATOCRIT % 41.9 40.7 39.2 38.5* 37.2* PLATELETS X10E9/L 217 211 203 209 186 Results from last 7 days Lab Units 06/13/2555706/12/2542306/11/2530406/10/2525106/09/256 SODIUM mmol/L 146 144 140 147* 146 [...] 0424 06/11/25 0305 06/10/25 0252 06/09/25 0316 ALBUMIN g/dL 3.8 3.6 3.6 3.4 3.2 Last HbA1c: Lab Results Component Value Date HGBA1C 8.3 (H) 06/07/2025 Lux Garcia MD Pgy 1 Internal Medicine [facility] Cosigned by Henry Godwin MD at 06/13/2025 [...] is in the hospital Henry Godwin MD 06/13/25 * Christiano Viera RN - 06/13/2025 9:08 AM EDT Images from the original note were not included. FOLLOW-UP: Post-Intensive Care Rounding Note Patient: Gianni Babin : 1955 Age: 70 y.o. Length of Stay: 9 days Admission Diagnosis: ICH (intracerebral hemorrhage) (CMS-HCC) [I61.9] ST elevation [R94.31] Reviewing patient due to his recent transfer out from Intensive Care. Recorded vital signs are stable and the patient is not noted to be in any apparent distress. Telemetry and monitoring noted. Staff may call with any issues or concerns regarding his clinical presentation or stability. Thank you, Christiano Viera RN Rapid Response: [facility] * Alphonse Cuenca MD - 06/13/2025 8:56 [...] outside hospital and thereafter was transferred to [facility] via air. Past medical history significant [...] by the trauma service and transferred to [facility]. Upon arrival to [facility] ED, vascular neurology consulted. Upon my evaluation [...] Diagnosis Date Diabetes mellitus type 2, controlled ([facility]) [place]deep venous thrombosis) [place] [place] GERD (gastroesophageal reflux disease) Hyperlipidemia Hypertension I[place] (intracerebral hemorrhage) [place] [place] 06/04/2025 Osteoarthritis Past surgical history: Past Surgical [...] and therefore the patient was transferred to [facility] for further workup. On examination, the patient [...] from the original note were not included. [facility] Endocrinology [facility] [address] [place] [address] Service Pager: Reinier Patel MD, Interim Chief MD Henry Mulligan MD Margo Joubran, CASSANDRA Bettencourt, CASSANDRA Marmolejo MD, Fellow Herbie Zhao MD, Fellow Ricardo Real MD, Fellow Katrin Jules MD, Fellow NO NEED to PAGE for NEW CONSULTS Secure epic chat to Academic Endocrinology Page for immediate attention. Diabetes Management Service progress Note Patient : Gianni Babin; 70 y.o. Location: [place] [address] Admit Date: 06/04/2025 Hospital Day: Hospital Day: [...] appropriate. Blood glucoses above 200 mg/dl are [facility] monitored performance measures. ASSESSMENT and PLAN: [x] [...] Diagnosis Date Diabetes mellitus type 2, controlled [place] [place] venous [place]) [place] [place] [place] GERD (gastroesophageal reflux disease) Hyperlipidemia Hypertension ICH (intracerebral hemorrhage) [place] [place] [place] 06/04/2025 Osteoarthritis Past Surgical History: Procedure Laterality [...] mL IVPB, 4,000 mg, intravenous, PRN, Adan Renya MD calcium gluconate IVPB 2000 mg/100 mL (20 mg/mL premix), 2,000 mg, intravenous, PRN, Aadn Plasencia MD carvediloL (COREG) tablet 25 mg, [...] CATRINA, Adan Plasencia MD, 25 mg at 06/12/25 [...] Units 06/12/25 0424 06/11/25 0305 06/10/25 0252 06/09/25 0316 06/08/25 0249 WBC x10E9/L 5.0 5.4 4.9 5.1 5.8 HEMOGLOBIN g/dL 13.9 13.3 13.1 12.8* 13.3 HEMATOCRIT % 40.7 39.2 38.5* 37.2* 39.0 PLATELETS X10E9/L 211 203 209 186 189 Results from last 7 days Lab Units 06/12/25 0424 06/11/25 0305 06/10/25 0252 06/09/25 0316 06/08/25 0249 SODIUM mmol/L 144 140 147* 146 [...] Units 06/12/25 0424 06/11/25 0305 06/10/25 0252 06/09/25 0316 06/08/25 0249 ALBUMIN g/dL 3.6 3.6 3.4 3.2 [...] Units 06/12/25 0424 06/11/25 0305 06/10/25 0252 06/09/25 0316 06/08/25 0249 WBC x10E9/L 5.0 5.4 4.9 5.1 5.8 HEMOGLOBIN g/dL 13.9 13.3 13.1 12.8* 13.3 HEMATOCRIT % 40.7 39.2 38.5* 37.2* 39.0 PLATELETS X10E9/L 211 203 209 186 189 @RESUFAST(IRON,TIBC,FERRITIN,IRONSAT,FOLATE,[id number]))@ Results from last 7 days Lab Units [...] which is 53. Rheumatoid factor is normal. Vmvd-lddeev-duivtnlp DNA is negative. LUIZA isnegative. Glomerular basement [...] For questions please call: Answering Service at [phone] Or Office at [phone] This note was created with the assistance [...] outside hospital and thereafter was transferred to [facility] via air. Past medical history significant [...] by the trauma service and transferred to [facility]. Upon arrival to [facility] ED, vascular neurology consulted. Upon my evaluation [...] Diagnosis Date Diabetes mellitus type 2, controlled [place] [place] [place] venous [place] [place] GERD (gastroesophageal reflux disease) Hyperlipidemia Hypertension [place] (intracerebral hemorrhage) [place] [place] [place] 06/04/2025 Osteoarthritis Past surgical history: Past Surgical [...] and therefore the patient was transferred to [facility] for further workup. On examination, the patient [...] outside hospital and thereafter was transferred to [facility] via air. Past medical history significant [...] by the trauma service and transferred to [facility]. Upon arrival to [facility] ED, vascular neurology consulted. Upon my evaluation [...] Diagnosis Date Diabetes mellitus type 2, controlled [place] [place] venous [place]) [place] GERD (gastroesophageal reflux disease) Hyperlipidemia Hypertension [place]CH (intracerebral hemorrhage) [place] [place] 06/04/2025 Osteoarthritis Past surgical history: Past Surgical [...] and therefore the patient was transferred to [facility] for further workup. On examination, the patient [...] ICH. Not ready for oral feedings per HOSPITALITY DIRECTOR eval today. Past medical history significant for hypertension, DM, HLD, Obesity, DM2, recent DVT on Eliquis. Renal following- today diuretic held and free water / D2.5 continues Biochemical Data, Medical Tests, and Procedures: 06/06- failed BSSE 06/08- HOSPITALITY DIRECTOR still with NPO recs NGT placed Labs: Results from last 3 days Lab Units 06/11/25 0305 06/10/25 0252 06/09/25 0316 SODIUM mmol/L 140 147* 146 POTASSIUM [...] from last 3 days Lab Units 06/11/25 03006/10/252 06/09/25 0316 WBC x10E9/L 5.4 4.9 5.1 HEMOGLOBIN g/dL 13.3 13.1 12.8* HEMATOCRIT % 39.2 38.5* 37.2* PLATELETS X10E9/L 203 209 186 MCV fL 93 93 92 Results from last 3 days Lab Units 06/11/25 03006/10/25 025 MAGNESIUM mg/dL 1.9 2.0 Results from last 3 days Lab Units 06/11/25 0305 06/10/25 0252 PHOSPHORUS mg/dL 4.8 4.7 CALCIUM, IONIZED mg/dL 4.5 5.0 Results from last 3 days Lab Units 06/11/25 03006/10/252 06/09/256 BILIRUBIN, TOTAL mg/dL 0.4 0.5 0.5 Lab [...] (H) 06/05/2025 Lab Results Component Value Date [id number] 274 06/07/2025 Lab Results Component Value Date [...] injection 5,000 Units 5,000 Units subcutaneous Q8H CATRINA Cuenca MD 5,000 Units at 06/11/25 0513 hydrALAZINE (APRESOLINE) injection 10 mg 10 mg intravenous Q4H PRN Alphonse Cuenca MD 10 mg at 06/05/25 1430 hydrALAZINE (APRESOLINE) tablet 25 mg 25 mg g-tube Q8H [facility] Adan Plasencia MD 25 mg at 06/11/25 [...] Skin (per nursing flow sheets): Skin Color: [place]; Pale (06/11/25 0800) Skin Temp: Cool; Dry (06/11/25 0800) Wound (per nursing flow sheets): Gastrointestinal (per nursing flow sheets): Abdomen Assessment: Soft; Nondistended; Rounded (06/11/25 0800) Last BM Date: 06/10/25 (06/10/25 1200) RUQ Bowel Sounds: Active (06/11/25 0800) LUQ Bowel Sounds: Active (06/11/25 0800) RLQ Bowel Sounds: Active (06/11/25 0800) LLQ Bowel Sounds: Active (06/11/25 0800) Edema (per nursing flow sheets): Generalized Edema: +1 (06/11/25 0800) RUE Edema: +1 (06/11/25 0800) LUE Edema: +1 (06/11/25 0800) RLE Edema: +2 (06/11/25 0800) LLE Edema: +2 (06/11/25 0800) Intake/ Output [...] oz) Admit Weight: 117.3kg (Bed Scale, 06/04) [place] Body Weight: 80.9kg Weight Changes: - Admit Body Mass Index: 35.1 kg/m??. Current Body Mass Index: Body mass index is 32.62 kg/m??. Comparative Standards: Estimated Energy Needs: 0586-4916 kcals daily. Method and weight used: 25-32 kcal/kg ibw Estimated Protein Needs: 97-160 grams daily. Method and weight used: 1.2-2g protein/kg ibw Estimated Fluid Needs: 0304-9517 ml daily. Method weight used: 1 ml/kg/kcal [...] Pippa Cowart R.D,L.DPaddy Clinical dietitian Patient Touch extension:[phone] Direct Dial phone number: [phone] 06/11/25 12:30 PM * Curt Vogt MD [...] 7 days Lab Units 06/11/2530406/10/2525106/09/2531506/08/25 0249 06/07/25 1227 06/07/25 0407 06/04/25 1958 06/04/25 [...] Results from last 7 days Lab Units 10/20/25 0305 10/19/25 0252 06/09/2531506/08/2524806/07/25224606/07/25199906/07/25162006/07/25406 PROTEIN TOTAL g/dL 6.7 6.4 5.8* 6.1 [...] Results from last 7 days Lab Units 06/11/2530406/10/2525106/09/2531506/08/2524806/07/25199906/07/25406 WBC x10E9/L 5.4 4.9 5.1 5.8 -- 4.9 HEMOGLOBIN g/dL 13.3 13.1 12.8* 13.3 13.1 13.5 HEMATOCRIT % 39.2 38.5* 37.2* 39.0 38.1* 38.9* PLATELETS X10E9/L 203 209 186 189 -- 211 @RESUFAST(IRON,TIBC,FERRITIN,IRONSAT,FOLATE,[id number]))@ Results from last 7 days Lab Units 06/11/25 0833 06/11/2530406/10/2525106/09/2531506/08/25248 BEDSIDE GLUCOSE mg/dL 328* -- -- -- -- GLUCOSE mg/dL -- 303* 269* 214* 162* Results from last 7 days Lab Units 06/08/25248 CPK ISOENZYMES U/L 123 Results from last 7 days Lab Units 06/11/2530406/10/2525106/07/25406 BNP pg/mL 314* 291* 163* CURRENT MEDICATIONS: [...] which is 53. Rheumatoid factor is normal. Gcol-jemzha-jqxyokva DNA is negative. LUIZA isnegative. Glomerular basement [...] For questions please call: Answering Service at [phone] Or Office at [phone] This note was created with the assistance [...] 0316 06/08/25 0249 06/07/25 1227 06/07/25 0407 1065106/04/25195706/04/25 1345 SODIUM mmol/L 147* 146 143 -- [...] from last 7 days Lab Units 06/10/2525106/09/2531506/08/2524806/07/25224606/07/25162006/07/2540606/06/25 06 PROTEIN TOTAL g/dL 6.4 5.8* 6.1 -- [...] Results from last 7 days Lab Units 06/10/2525106/09/2531506/08/2524806/07/25199906/07/2540606/06/2552 WBC x10E9/L 4.9 5.1 5.8 -- 4.9 4.3 HEMOGLOBIN g/dL 13.1 12.8* 13.3 13.1 13.5 13.7 HEMATOCRIT % 38.5* 37.2* 39.0 38.1* 38.9* 39.2 PLATELETS X10E9/L 209 186 189 -- 211 191 @RESUFAST(IRON,TIBC,FERRITIN,IRONSAT,FOLATE,[id number]))@ Results from last 7 days Lab Units 06/10/25 0252 06/09/25 0316 06/08/25 0249 06/07/25 0407 06/06/25 0652 GLUCOSE mg/dL 269* 214* 162* 171* [...] which is 53. Rheumatoid factor is normal. Tqff-jvirze-zqpiurpb DNA is negative. LUIZA isnegative. Glomerular basement [...] For questions please call: Answering Service at [phone] Or Office at [phone] This note was created with the assistance [...] admission 06/04/2025 5:25 PM PCP: CLARISA HANSEN APRN-GAME PROTECTOR Reason of admission: IPH Deficit: AMS Last [...] outside hospital and thereafter was transferred to [facility] via air. Past medical history significant [...] by the trauma service and transferred to [facility]. Upon arrival to [facility] ED, vascular neurology consulted. Upon my evaluation [...] Diagnosis Date Diabetes mellitus type 2, controlled [place] [place] [place] GERD (gastroesophageal reflux disease) Hyperlipidemia Hypertension ICH (intracerebral hemorrhage) [place] [place] 06/04/2025 Osteoarthritis Past surgical history: Past Surgical [...] and therefore the patient was transferred to [facility] for further workup. On examination, the patient [...] reported) ? Patricia Mcclellan MD Vascular Neurologist [facility] Neurology ([facility])? Important Notice:??This note was created with the [...] outside hospital and thereafter was transferred to [facility] via air. Past medical history significant [...] by the trauma service and transferred to [facility]. Upon arrival to [facility] ED, vascular neurology consulted. Upon my evaluation [...] Diagnosis Date Diabetes mellitus type 2, controlled [place] D[place] venous [place]) [place] GERD (gastroesophageal reflux disease) Hyperlipidemia Hypertension ICH (intracerebral hemorrhage) [place] [place] 06/04/2025 Osteoarthritis Past surgical history: Past Surgical [...] and therefore the patient was transferred to [facility] for further workup. On examination, the patient [...] reported) ? Patricia Mcclellan MD Vascular Neurologist [facility] Neurology ([facility])? Important Notice:??This note was created with the [...] 141/80 Pulse: 78 82 90 83 Resp: Temp: 36.8 ??C (98.3 ??F) TempSrc: Oral [...] Results from last 7 days Lab Units 06/09/2531506/08/25 0249 06/07/25 1227 06/07/25 0407 06/06/25 0652 [...] Results from last 7 days Lab Units 06/09/2531506/08/259 06/07/25 2247 06/07/25 1621 06/07/25 0407 06/06/2552 06/05/25 031 PROTEIN TOTAL g/dL 5.8* 6.1 -- -- [...] from last 7 days Lab Units 06/09/2531506/08/2524806/07/25199906/07/2540606/06/2565106/05/25 031 WBC x10E9/L 5.1 5.8 -- 4.9 4.3 4.4 HEMOGLOBIN g/dL 12.8* 13.3 13.1 13.5 13.7 13.3 HEMATOCRIT % 37.2* 39.0 38.1* 38.9* 39.2 37.3* PLATELETS X10E9/L 186 189 -- 211 191 202 @RESUFAST(IRON,TIBC,FERRITIN,IRONSAT,FOLATE,[id number]))@ Results from last 7 days Lab Units 06/09/2531506/08/2524806/07/2540606/06/2565106/05/25 1552 BEDSIDE GLUCOSE mg/dL -- -- -- -- 145* GLUCOSE mg/dL 214* 162* 171* 145* -- Results from last 7 days Lab Units 06/08/25248 CPK ISOENZYMES U/L 123 Results from last 7 days Lab Units 06/07/25406 BNP pg/mL 163* CURRENT MEDICATIONS: carvediloL, 12.5 [...] are negative C3 is normal. C4 is onthe high side which is 53. Rheumatoid factor is normal. Hcxd-ungovq-ctzhqsse DNA is negative. LUIZA is negative. Glomerular [...] For questions please call: Answering Service at [phone] Or Office at [phone] This note was created with the assistance [...] outside hospital and thereafter was transferred to [facility] via air. Past medical history significant [...] by the trauma service and transferred to [facility]. Upon arrival to [facility] ED, vascular neurology consulted. Upon my evaluation [...] Diagnosis Date Diabetes mellitus type 2, controlled [place]deep venous [place]) [place] GERD (gastroesophageal reflux disease) Hyperlipidemia Hypertension ICH (intracerebral hemorrhage) [place] 06/04/2025 Osteoarthritis Past surgical history: Past Surgical [...] and therefore the patient was transferred to [facility] for further workup. On examination, the patient [...] reported) ? Patricia Mcclellan MD Vascular Neurologist [facility] Neurology ([facility])? Important Notice:??This note was created with the [...] which is 53. Rheumatoid factor is normal. Esft-pwnezk-gdavysul DNA is negative. LUIZA isnegative. Glomerular basement membrane antibodies are negative. SPEP is pending. Anca is pending. Right intraparenchymal hemorrhage with intraventricular extension Type 2 diabetes mellitus DVT on Eliquis GERD Hypertension Hyperlipidemia Osteoarthritis Total hip arthroplasty VITAL SIGNS TREND: Vitals: 06/08/25 0300 06/08/25 0400 06/08/25 0500 06/08/25 0600 BP: 139/64 145/71 (!) 138/93 136/80 Pulse: 82 89 87 84 Resp: 15 Temp: 37.1 ??C (98.7 ??F) TempSrc: [...] 7 days Lab Units 06/08/25 0249 06/07/25 1227 06/07/25 0407 06/06/25 0652 06/05/25 1445 06/05/25 0310 06/04/25 1958 06/04/25 1345 SODIUM mmol/L 143 -- 141 141 [...] Results from last 7 days Lab Units 06/08/2524806/07/25199906/07/2540606/06/2565106/05/2530906/04/251957 WBC x10E9/L 5.8 -- 4.9 4.3 4.4 5.9 HEMOGLOBIN g/dL 13.3 13.1 13.5 13.7 13.3 13.7 HEMATOCRIT % 39.0 38.1* 38.9* 39.2 37.3* 40.5 PLATELETS X10E9/L 189 -- 211 191 202 231 Results from last 7 days Lab Units 06/08/2524806/07/2540606/06/2565106/05/2530906/04/251957 PROTEIN TOTAL g/dL 6.1 6.4 6.2 6.1 6.3 ALBUMIN g/dL 3.3 3.5 3.4 3.3 3.4 AST U/L 22 17 16 15 17 ALT U/L 8 7 8 7 9 Results from last 7 days Lab Units 06/08/25248 CPK ISOENZYMES U/L 123 X-ray abdomen NG [...] patient's Ed Ortiz M.D. [facility] Thank you for your consultation and allowing us to participate in the care of Gianni Montelongo please do not hesitate to call us with any questions at: Office: [phone] Office Answering Service: [phone] Please feel free to contact me through [employer] Secure chat during the daytime hours, if no response after 5 minutes then call the answering service. This note was created with the assistance of a speech-recognition program. Although the intention is to generate a document that actually reflects the content of the visit, no guarantees can be provided that every mistake has been identified and corrected by editing. * PippaBRANDON Baac - 06/08/2025 11:19 AM EDT NUTRITION ADULT FOLLOW UP NUTRITION ASSESSMENT: Patient History: Brief Clinical Summary: Pt admitted for ICH. Not ready for oral feedings per HOSPITALITY DIRECTOR eval today. Past medical history significant for hypertension, DM, HLD, Obesity, DM2, recent DVT on Eliquis. Biochemical Data, Medical Tests, and Procedures: 06/06- failed BSSE 06/08- HOSPITALITY DIRECTOR still with NPO recs Labs: Results from last 3 days Lab Units 06/08/2524806/07/25 1227 06/07/2540606/06/25 0652 SODIUM mmol/L 143 -- 141 141 [...] U/L 8 -- 7 8 AST U/L 22 -- 17 16 Results from last 7 days Lab Units 06/08/2524806/07/25 0407 06/06/25 0652 06/05/25 1552 06/05/25 1158 06/05/25 0820 06/05/25 0310 BEDSIDE GLUCOSE mg/dL -- -- -- 145* 140* 147* -- GLUCOSE mg/dL 162* 171* 145* -- -- -- 163* Results from last 3 days Lab Units 06/08/25 02406/07/25 2000 06/07/25 0407 06/06/25 0652 WBC x10E9/L 5.8 -- 4.9 4.3 HEMOGLOBIN g/dL 13.3 13.1 13.5 13.7 HEMATOCRIT % 39.0 38.1* 38.9* 39.2 PLATELETS X10E9/L 189 -- 211 191 MCV fL 93 -- 92 92 No data from last 3 days. No data from last 3 days. Results from last 3 days Lab Units 06/08/25 0249 06/07/25 2247 06/07/25 1621 BILIRUBIN, TOTAL mg/dL 0.6 -- [...] (H) 06/05/2025 Lab Results Component Value Date [id number] 06/07/2025 Lab Results Component Value Date [...] injection 5,000 Units 5,000 Units subcutaneous Q8H [facility] Alphonse Cuenca MD hydrALAZINE (APRESOLINE) injection 10 mg 10 mg intravenous Q4H PRN Alphonse Cuenca MD 10 mg at 06/05/25 1430 labetaloL (NORMODYNE,TRANDATE) injection 10 mg 10 mg intravenous Q5 Min PRN Alphonse Cuenca MD 10 mg at 06/06/25 0128 levETIRAcetam (KEPPRA) 750 mg in [...] 2 tablet 2 tablet oral PRN Alphonse Ceunca MD thiamine (B-1) 500 mg in sodium chloride 0.9 % 50 mL IVPB 500 mg intravenous TID Alphonse Cuenca MD Nutrition Focused Physical Findings no BM since 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 Current Body Mass Index: Body mass index is 34.06 kg/m??. Comparative Standards: Estimated Energy Needs: 9720-1519 kcals daily. Method and weight used: 25-32 kcal/kg ibw Estimated Protein Needs: 97-160 grams daily. Method and weight used: 1.2-2g protein/kg ibw Estimated Fluid Needs: 6905-0972 ml daily. Method weight used: 1 ml/kg/kcal Comments: general needs Malnutrition Status: Malnutrition Present: not with information reviewed NUTRITION DIAGNOSIS: Intake Diagnosis: Inadequate oral intake (NI 2.1) related to neurological event as evidenced by ICHand HOSPITALITY DIRECTOR BSSE rec pt NPO. NUTRITION INTERVENTIONS: Enteral & parenteral nutrition:continue Osmolite 1.5 25ml/hr with goal rate of 65ml/hr for 2340kcal and 97g protein, 1189ml free water Nutrition related medication management: continue free water flushes of 200ml 4x/day for [id number]. Coordination of nutrition care: contacted RN re consult. GOAL(S): pt to receive estimated nutrition needs NUTRITION MONITORING AND EVALUATION: I/O,wts, labs TF tolerance, POC Pippa Cowart R.D,LRommel Clinical dietitian Patient Touch extension:[phone] Direct Dial phone number: [phone] 06/08/25 11:29 AM * Mable Butt MD [...] sputum and has been gurgling. Subjective: Gianni Babni is a 70 y.o. male who initially presented to an outside hospital and thereafter was transferred to [facility] via air. Past medical history significant [...] by the trauma service and transferred to [facility]. Upon arrival to [facility] ED, vascular neurology consulted. Upon my evaluation [...] Diagnosis Date Diabetes mellitus type 2, [place] GERD (gastroesophageal reflux disease) Hyperlipidemia Hypertension [place] (intracerebral hemorrhage) [place] 06/04/2025 Osteoarthritis Past surgical history: Past Surgical [...] from the original result were not included. PA Neurology Video/EEG Monitoring REPORT EEG Service Date(s): 06/06/25 from 06:30 until 10:35 Date of Report: 06/06/25 History: Gianni Babin is 70 y.o. male with a history of intraparenchymal hemorrhage and encephalopathy who is undergoingvideo/EEG monitoring to evaluate for seizures. Centrally active medications: Keppra Procedure: Thisvideo/EEG monitoring was acquired with electrodes placed according to the Cdyuxkjlvzhnj86-12 electrode placement system,using collodion. The EEG was [...] the referring provider. Jennifer German M.D., Ph.D. Rope [facility] Neurology X-ray abdomen NG Tube placement 1 [...] and therefore the patient was transferred to [facility] for further workup. On examination, the patient [...] reported) ? Patricia Mcclellan MD Vascular Neurologist [facility] Neurology ([facility])? Important Notice:??This note was created with the [...] outside hospital and thereafter was transferred to [facility] via air. Past medical history significant [...] by the trauma service and transferred to [facility]. Upon arrival to [facility] ED, vascular neurology consulted. Upon my evaluation [...] Diagnosis Date Diabetes mellitus type 2, controlled ([facility]) DVT (deep venous thrombosis) ([facility]) GERD (gastroesophageal reflux disease) Hyperlipidemia Hypertension [place] (intracerebral hemorrhage) [place] [place] 06/04/2025 Osteoarthritis Past surgical history: Past Surgical [...] from the original result were not included. PA Neurology Video/EEG Monitoring REPORT EEG Service Date(s): 06/06/25 from 06:30 until 10:35 Date of Report: 06/06/25 History: Gianni Babin is 70 y.o. male with a history of intraparenchymal hemorrhage and encephalopathy who is undergoingvideo/EEG monitoring to evaluate for seizures. Centrally active medications: Keppra Procedure: Thisvideo/EEG monitoring was acquired with electrodes placed according to the Tgmorvqvfdxdj77-80 electrode placement system,using collodion. The EEG was [...] the referring provider. Jennifer German M.D., Ph.D. R[facility] Neurology X-ray abdomen NG Tube placement 1 [...] from the original result were not included. PA Neurology Video/EEG Monitoring REPORT EEG Service Date(s): 06/05/25 @ 06:30 until @ 06:30 Date of Report: 06/06/25 History: Gianni Padilla is 70 y.o. male with a history of intraparenchymal hemorrhage and encephalopathy who is undergoing video/EEG monitoring to evaluate for seizures. Centrally active medications: Keppra Procedure: This video/EEG monitoring was acquired with electrodes placed according to the Loqgzzsmtlske08-88wuolsnltp placement system,using collodion. The EEG was reviewed [...] waves. No electrographic seizure activity is recorded. StageII sleep is noted, correlated with the presence of bilaterally symmetric spindle activity and generalized delta frequencies. EEG diagnosis: This video/EEG monitoring is abnormal due to: Focal intermittent right temporal slowing.. Mild generalized background slowing. EEG interpretation: This video/EE G monitoring is abnormal due to the presence of intermittent right temporal slowing, consistent with structural lesion. Mild generalized background slowing is consistent with encephalopathy of nonspecific etiology. No epileptiform abnormalities or seizures were recorded. Video/EEG monitoring may becontinued or discontinued at the discretion of the referring provider. Jennifer German M.D.,Ph.D. [facility] Neurology Background with right temporal slowing [...] and therefore the patient was transferred to [facility] for further workup. On examination, the patient [...] reported) ? Patricia Mcclellan MD Vascular Neurologist [facility] Neurology ([facility])? Important Notice:??This note was created with the [...] outside hospital and thereafter was transferred to [facility] via air. Past medical history significant [...] by the trauma service and transferred to [facility]. Upon arrival to [facility] ED, vascular neurology consulted. Upon my evaluation [...] Diagnosis Date Diabetes mellitus type 2, controlled [place] [place] [place] GERD (gastroesophageal reflux disease) Hyperlipidemia Hypertension [place] (intracerebral hemorrhage) [place] [place] [place] 06/04/2025 Osteoarthritis Past surgical history: Past Surgical [...] from the original result were not included. PA Neurology Video/EEG Monitoring REPORT EEG Service Date(s): 06/05/25 form 04:27 until 06:30 Date of Report: 06/05/25 History: Gianni Babin is 70 y.o. male with a history of intraparenchymal hemorrhage and encephalopathy who is undergoingvideo/EEG monitoring to evaluate for seizures. Centrally active medications: Keppra Procedure: Thisvideo/EEG monitoring was acquired with electrodes placed according to the Qasvafmpgvsjt92-67 electrode placement system,using collodion. The EEG was [...] noted in the form of spikes or sh kayley waves. No electrographic seizure activity is recorded. Stage II sleep is noted, correlated withthe presence of bilaterally symmetric spindle activity and [...] seizures were recorded. Jennifer German M.D., Ph.D. Rope [facility] Neurology Baseline Routine EEG Result Date: 06/05/2025 Images from the original result were not included. PA Neurology EEG REPORT EEG Service Date: 06/05/25 Date of Report: 06/05/25 History: Gianni Babin is a 70 y.o. male with altered mental status and right intraparenchymal hemorrhage who is undergoing EEG to evaluate for seizures. Centrally active medications: Keppra. Procedure: This EEG was acquired with electrodes placed according to wrkDpyfvtaewfpzf76-04 electrode placement system. The EEG was acquired [...] of intermittent seizures. Jennifer German M.D., Ph.D. AssociateProfessor [place] Neurology Background CT brain without contrast Result [...] are obtained of the abdomen and pelvis [id number] cc omnipaque 300 intravenous contrast. Coronal and [...] Automated exposure control was utilized. The [place] Symptomatic carotid Endarterectomy Trial (NASCET) method for [...] and therefore the patient was transferred to [facility] for further workup. On examination, the patient [...] reported) ? Patricia Mcclellan MD Vascular Neurologist [facility] Neurology ([facility])? Important Notice:??This note was created with the [...] outside hospital and thereafter was transferred to [facility] via air. Past medical history significant [...] by the trauma service and transferred to [facility]. Upon arrival to [facility] ED, vascular neurology consulted. Upon my evaluation [...] are obtained of the abdomen and pelvis vtie275 cc omnipaque 300 intravenous contrast. Coronal and [...] Automated exposure control was utilized. The [place] Symptomatic carotid Endarterectomy Trial (NASCET) method for [...] and therefore the patient was transferred to [facility] for further workup. On examination, the patient [...] reported) ? Patricia Mcclellan MD Vascular Neurologist [facility] ([facility])? 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 Procedure Abnormality Status --------- ------ Light Blue Top[[id number]] In process PST TOP[[id number]] In process Lavender Top[[id number]] In process Cruz Top On Ice[[id number]] In process Please view results for these [...] Automated exposure control was utilized. The [place] Symptomatic carotid Endarterectomy Trial (NASCET) method for [...] Motor: Left Side Strength: Shoulder Elbow: 4/5 Outbound Sales Executive: 4/5 Hip: 4/5 Knee: 4/5 Dorsi/Plantar Flexion: 4/5 Right Side Strength: Shoulder Elbow: 4/5 Outbound Sales Executive: 4/5 Hip: 4/5 Knee: 4/5 Dorsi/Plantar Flexion: [...] Present: Carlton TRUJILLO Trauma Team Arrival time: 6865 Attending: Dr. Peter Rajput MD saw patient on the floor Christiano Novoa MD 06/04/25 6:54 PM Trauma can be reached via Patient Touch Pager: [phone] Cosigned by Peter Rajput MD at 06/04/2025 [...] questions or clarification anytime. Peter Rajput MD [facility] Trauma, Acute Care Surgery and Surgical Critical Care documented in this encounter Consult Notes * BRANDON Mae - 06/13/2025 12:04 PM EDTAssociated Order(s): IP CONSULT TO NUTRITION SERVICES NUTRITION BRIEF NOTE: Consult received as patient repeatedly pulls NGT. Patient is eating 100% of meals, but is not cleared for any fluid intake orally at this time per HOSPITALITY DIRECTOR. Inpatient Nutrition Support History: 06/06 TF started [...] oz) Admit Weight: 117.3kg (Bed Scale, 06/04) [place] Body Weight: 80.9kg Weight Changes: - Admit Body Mass Index: 35.1 kg/m??. Current Body Mass Index: Body mass index is 32.62 kg/m??. Comparative Standards: Estimated Energy Needs: 0774-1364 kcals daily. Method and weight used: 25-32 kcal/kg ibw Estimated Protein Needs: 97-160 grams daily. Method and weight used: 1.2-2g protein/kg ibw Estimated Fluid Needs: 1863-6411 ml daily. Method weight used: 1 ml/kg/kcal Comments: general needs NUTRITION DIAGNOSIS: Intake Diagnosis: Inadequate fluid intake (NI 3.1) related to swallowing difficulty as evidenced byno fluids per HOSPITALITY DIRECTOR. NUTRITION INTERVENTIONS: Continue current diet order Spoke with Clifford TELLEZ and Bang ZULUAGA regarding fluids RECOMMENDATIONS: Provide fluids via IV pending next speech eval May need PEG for fluids pending HOSPITALITY DIRECTOR eval GOAL(S): Meet estimated calorie and protein needs. NUTRITION MONITORING AND EVALUATION: PO intakes, weight trend, labs, POC and overall status. Trini Pradhan RD, LD Clinical Dietitian Direct Line * Pietro Dela Cruz PA-C - 06/11/2025 5:04 PM EDTAssociated Order(s): IP CONSULT TO ENDOCRINOLOGY Images from the original note were not included. [facility] [address] [place] [address] Service Pager: Reinier Patel MD, Interim Chief MD Henry Mulligan MD Margo Joubran, CASSANDRA Seth PA-C Manali Pragani, MD, Fellow Herbie Zhao MD, Fellow Ricardo Real MD, Fellow Katrin Jules MD, Fellow NO NEED to PAGE for NEW CONSULTS Secure [employer] chat to Academic Endocrinology Page for immediate [...] appropriate. Blood glucoses above 200 mg/dl are [facility] monitored performance measures. ASSESSMENT and PLAN: [x] [...] Diagnosis Date Diabetes mellitus type 2, controlled [place] [place] [place] venous [place]) [place] GERD (gastroesophageal reflux disease) Hyperlipidemia Hypertension [place] (intracerebral hemorrhage) [place] [place] 06/04/2025 Osteoarthritis Past Surgical History: Procedure Laterality [...] IVPB W/ADAPTER, 1,000 mg, intravenous, Q24H, Alphonse Cuneca MD, Stopped at 06/11/25 1142 dextrose (GLUTOSE) [...] tablet 25 mg, 25 mg, g-tube, Q8H [facility], Adan Plasencia MD, 25 mg at 06/11/25 [...] last 7 days Lab Units 06/11/25 0305 06/10/25 0252 06/09/25 0316 06/08/25 0249 06/07/25 2000 06/07/25 0407 WBC x10E9/L 5.4 4.9 5.1 5.8 -- 4.9 HEMOGLOBIN g/dL 13.3 13.1 12.8* 13.3 < > 13.5 HEMATOCRIT % 39.2 38.5* 37.2* 39.0 < > 38.9* PLATELETS X10E9/L 203 209 186 189 -- 211 < > = values in this interval not displayed. Results from last 7 days Lab Units 06/11/25 0305 06/10/25 0252 06/09/25 0316 06/08/25 0249 06/07/25 1227 06/07/25 0407 SODIUM mmol/L 140 [...] last 7 days Lab Units 06/11/25 0305 06/10/25 0252 06/09/25 0316 06/08/25 [...] DVT on Eliquis, alcohol abuse, presented to [facility] [place] with AMS with possible fall at home [...] Diagnosis Date Diabetes mellitus type 2, controlled [place] venous [place]) [place] GERD (gastroesophageal reflux disease) Hyperlipidemia Hypertension ICH (intracerebral hemorrhage) [place] 06/04/2025 Osteoarthritis Past Surgical History: Past Surgical [...] Diagnosis Date Diabetes mellitus type 2, controlled [place]deep venous [place]) [place] GERD (gastroesophageal reflux disease) Hyperlipidemia Hypertension ICH (intracerebral hemorrhage) [place] 06/04/2025 Osteoarthritis Past Surgical History: Procedure Laterality [...] BALJIT Referring Physician: Mable Butt MD PCP: CLARISA HANSEN APRN-ANDREA History of Present Illness: Gianni Babin is [...] Diagnosis Date Diabetes mellitus type 2, controlled ([facility]) DVT (deep venous thrombosis) ([facility]) GERD (gastroesophageal reflux disease) Hyperlipidemia Hypertension ICH (intracerebral hemorrhage) ([facility]) 06/04/2025 Osteoarthritis Past Surgical History: Procedure Laterality [...] days Lab Units 06/07/25 0407 06/06/25 0652 06/05/2530906/04/25195706/04/25 1345 WBC x10E9/L 4.9 4.3 4.4 5.9 [...] duplex Ed Ortiz MD [facility] Thank you for your consultation and allowing us to participate in the care of Gianni Montelongo please do not hesitate to call us with any questions at: Office: [phone] Office Answering Service: [phone] Please feel free to contact me through [employer] Secure chat during the daytime hours, if [...] Active Problem List Diagnosis [place]intracerebral [place]) [place] [place] Past Medical History: Past Medical History: Diagnosis Date Diabetes mellitus type 2, controlled [place] [place]deep venous [place]) [place] GERD (gastroesophageal reflux disease) Hyperlipidemia Hypertension ICH (intracerebral hemorrhage) [place] 06/04/2025 Osteoarthritis Past Surgical History: Past Surgical History: Procedure Laterality Date TONSILLECTOMY TOTAL HIP ARTHROPLASTY 06/2010 Social/ Cognitive/ Economic: from home Brief Clinical Summary: PT admitted for ICH. Not ready for oral feedings per HOSPITALITY DIRECTOR eval today. Past medical history significant for hypertension, DM, HLD, Obesity, DM2, recent DVT on Eliquis. Biochemical Data, Medical Tests, and Procedures: 06/06- BSSE Labs: Results from last 3 days Lab Units 06/06/25 0652 06/05/25 1445 06/05/2530906/04/251957 SODIUM mmol/L 141 -- 136 134 POTASSIUM [...] last 3 days Lab Units 06/06/25 0652 06/05/2530906/04/251957 WBC x10E9/L 4.3 4.4 5.9 HEMOGLOBIN g/dL 13.7 13.3 13.7 HEMATOCRIT % 39.2 37.3* 40.5 PLATELETS X10E9/L 191 202 231 MCV fL 92 91 91 Results from last 3 days Lab Units 06/04/25 134 MAGNESIUM mg/dL 1.9 No data from last 3 days. Results from last 3 days Lab Units 06/06/25 0652 06/05/2530906/04/251957 BILIRUBIN, TOTAL mg/dL 0.7 0.6 0.6 Lab [...] 47 (H) 06/05/2025 No results found for: [id number] No results found for: FOLATE No results [...] 250 mL IVPB 20 mmol intravenous PRN Alphones Cuenca MD Or sodium phosphate 20 mmol in sodium chloride 0.9 % 100 mL IVPB 20 mmol intravenous PRN Alphonse Cuenca MD Or sod phos di, mono-K phos mono (K-PHOS NEUTRAL) 250 mg tablet 2 tablet 2 tablet oral PRN Alphonse Cuenca MD Nutrition Focused Physical Findings remote charting at this time Skin (per nursing flow sheets): Skin Color: [place]; Pale (06/06/25 1200) Skin Temp: Warm; Dry (06/06/25 1200) Wound (per nursing flow sheets): Gastrointestinal (per nursing flow sheets): Abdomen Assessment: Distended; Obese (06/06/25 1200) RUQ Bowel Sounds: Active (06/06/25 1200) LUQ Bowel Sounds: Active (06/06/25 1200) RLQ Bowel Sounds: Active (06/06/25 1200) LLQ Bowel Sounds: Active (06/06/25 1200) Edema (per nursing flow sheets): RLE Edema: +2 (06/06/25 1200) LLE Edema: +2 (06/06/25 1200) Intake/ Output Last 24 hrs: Intake/Output Summary (Last 24 hours) at 06/06/2025 1251 Last data filed at 06/06/2025 0900 Gross per 24 hour Intake 746.58 ml Output 1925 ml Net -1178.42 ml Food/Nutrition Related History: Diet History: jose david Allergies: No Known Allergies Diet/ Nutrition Order Review: Dietary Orders (From admission, onward) Start Ordered 06/04/25 191 Adult diet NPO Diet effective now Comments: [...] (Bed Scale, 06/04) Usual Body Weight: NA [place] Body Weight: 80.9kg Percent [place] Body Weight: 145 Weight Changes: - Body Mass Index: Body mass index is 35.1 kg/m??. BMI Category: Obese class 2 (35.00- 39.99) Comparative Standards: Estimated Energy Needs: 0021-0911 kcals daily. Method and weight used: 25-32 kcal/kg ibw Estimated Protein Needs: 97-160 grams daily. Method and weight used: 1.2-2g protein/kg ibw Estimated Fluid Needs: 4049-9518 ml daily. Method weight used: 1 ml/kg/kcal Comments: general needs Malnutrition Status: Malnutrition Present: not with information reviewed NUTRITION DIAGNOSIS: Intake Diagnosis: Inadequate oral intake (NI 2.1) related to neurological event as evidenced by ICHand HOSPITALITY DIRECTOR BSSE rec pt NPO. NUTRITION INTERVENTIONS: Enteral & parenteral nutrition: will use Osmolite 1.5 25ml/hr with goal rate of 65ml/hr for 2340kcal and 97g protein, 1189ml free water Nutrition related medication management: will add free water flushes of 200ml 4x/day for [id number]. Coordination of nutrition care: contacted RN re consult. GOAL(S): pt to receive estimated nutrition needs NUTRITION MONITORING AND EVALUATION: I/O,wts, labs TF tolerance, POC Pippa Cowart R.D,L.D. Clinical dietitian Patient Touch extension:[phone] Direct Dial phone number: [phone] 06/06/25 1:10 PM documented in this encounter [...] Rate (mL/hour): 65 06/06/25 1314 PT OT HOSPITALITY DIRECTOR: PT OT HOSPITALITY DIRECTOR Orders (From admission, onward) Start Ordered 06/04/251916 [...] Rate (mL/hour): 65 06/06/25 1314 PT OT HOSPITALITY DIRECTOR: PT OT HOSPITALITY DIRECTOR Orders (From admission, onward) Start Ordered 06/04/251916 [...] Rate (mL/hour): 65 06/06/25 1314 PT OT HOSPITALITY DIRECTOR: PT OT HOSPITALITY DIRECTOR Orders (From admission, onward) Start Ordered 06/04/251916 [...] Rate (mL/hour): 65 06/06/25 1314 PT OT HOSPITALITY DIRECTOR: PT OT HOSPITALITY DIRECTOR Orders (From admission, onward) Start Ordered 06/04/251916 [...] Diet Type: Answer: NPO 06/04/251917 PT OT HOSPITALITY DIRECTOR: PT OT HOSPITALITY DIRECTOR Orders (From admission, onward) Start Ordered 06/04/251916 [...] Diet Type: Answer: NPO 06/04/251917 PT OT HOSPITALITY DIRECTOR: PT OT HOSPITALITY DIRECTOR Orders (From admission, onward) Start Ordered 06/04/251916 [...] order is placed Reason for PT? Stroke 06/04/258 06/04/251916 ST consult eval and treat Once Question [...] from the original note were not included. [facility] - EMERGENCY DEPARTMENT Pt Name: Gianni Babin Birthdate: 1955 Chief Complaint: Chief Complaint Patient presents with ??? Fall History of Present Illness: Pt is a 70 y.o. male has no past medical history on file. that presents to the ED today with chief complaint of AMS. Patient presents as a transfer from [facility] [place] for trauma consult. Family believes patient might [...] never appears intoxicated. Patient also smokes. At [place], patient was given Kcentra, Keppra and started [...] Summary: Patient presents as a transfer from [place] after he was found to have a [...] at outside facility Discussion with other providers: Tactical Air Control Party Case was discussed with Dr. Smith, who agrees with the plan of care Amount and/or Complexity of Data Reviewed Labs: ordered. ED Course: Clinical Impressions as of 06/05/25 0028 Traumatic intracerebral hemorrhage with unknown loss of consciousness status, unspecified laterality, subsequent encounter . ED Disposition ED Disposition Admit Date/Time WedJun 04, 2025 7:19 PM Comment Diagnosis: ICH (intracerebral hemorrhage) ([facility]) [[id number]] Attending Provider: PATRICIA MCCLELLAN [[id number]] Estimated length of stay?: >2 midnights/In-patient only procedure/<96 hours Critical Access Certification: I certify that inpatient services are medically necessary for this patient for a duration of greater than two midnights. See H&P and MD Progress Notes for additional information about the patient's course of treatment. Medications Prescribed this Visit This print group is not available in inpatient encounters. Please contact a sprinkling system irrigator. Shared/Split Visit 18:03 EDT IDia (scribe), scribed for and in the presence of: Dr. James Smith who performed the aboveservice. I, Dr. James Smith personally performed a gerp-su-thty diagnostic evaluation on this patient. I personally [...] time: Means of arrival: [facility] Comments: [place] Trauma Consult Gianni Babin 70 yrs M (1955) Fall 2 days ago Brain Bleed Trauma Consult Dr Rajput AMS CT brain 2.3cm 2350units K-centra, 2000mg keppra, 20mg Labatolol Cardene started on 10mg/hr IVx2 A&O x2, slightly confused On Eliquis Sinus 74 96% 2L 134/83 ETA 10 minutes documented in this encounter Miscellaneous Notes * Discharge Planning Note - Chloe Denis - 06/22/2025 2:26 PM EDT DISCHARGE PLANNING NOTE CRF/Med Rec [facility] to[facility] (P# ; F# ) * Discharge Planning Note - Chaya Yoder - 06/22/2025 1:58 PM EDT DISCHARGE PLANNING NOTE 2nd IMM letter sent via certified mail Olinda Babin * Discharge Planning Note - Shawna Corral - 06/22/2025 10:48 AM EDT DISCHARGE PLANNING NOTE Clinical updates sent to [facility] (P# ; F# ) * Discharge Planning [...] Disposition SNF SNF Name [facility] SNF Accepted? Yes PreCertification Authorization Number [id number] PreCertification Expiration Date 06/27/25 PreCertification Expiration Time 9735 Does the patient need discharge transportation arranged? Yes Mobility issues discussed with transportation provider No Patient choice offered Yes List Provided Yes CarePort List Provided [facility] Facility Per RN during discharge transition rounds, barriers to discharge are: lab work, planning discharge today. Need DC orders for SNF. Discharge Plan: SNF. [facility] . We received auth today. Dates 06/22- 06/27. PTN BLS scheduled for 3pm. CN called , no answer. CN called and left message for son Raghavendra. Tasked [facility] to send IMM to . Case Planner will continue to follow for any discharge needs. - Olinda Huddleston RN 06/22/25 10:48 AM Addendum: [facility] at 530pm now by BLS. Patient removed mayo and nurse replaced mayo. Discussed discharge plans with this afternoon by phone. HENS completed. DC CRF completed and tasked [facility] to send DC CRF to [facility]. Epic link opened for [facility] - Olinda Huddleston RN 06/22/25 2:29 PM * Plan of Care - Peter Rubio RN - 06/22/2025 10:09 AM EDT Problem: Pain Goal: Patient goal is pain score less than 4, able to rest, and participant in treatment plan as appropriate Description: INTERVENTIONS: 1. Encourage patient or legal sales representative printing supplies to report early pain and ask for [...] per policy 9. Teach patient or legal sales representative printing supplies interventions for comforting Outcome: Adequate for Discharge [...] at the bedside 7. Instruct patient/ patient sales representative printing supplies about use of safety devices 8. Include patient/ patient sales representative printing supplies in decisions related to safety Outcome: Adequate [...] hygiene technique. 7. Identify and instruct patient/patient sales representative printing supplies in use of appropriate isolation precautionsfor identified infection/symptoms. 8. Provide and discuss with patient/patient sales representative printing supplies on educational MDRO sheet. 9. Encourage and monitor nutritional status daily and consult instructor painting if indicated. 10. Implement neutropenic guidelines as needed. Outcome: Adequate for Discharge Problem: Knowledge Deficit Goal: Patient/patient sales representative printing supplies demonstrates understanding of disease process, treatment plan,medications, [...] develop effective communication strategies 4. Include patient/patient sales representative printing supplies in decisions related to communication Outcome: Adequate [...] Collaborate with ancillary departments 14. Include patient/patient sales representative printing supplies in decisions related to anxiety Outcome: Adequate [...] supplement as ordered 13. Collaborate with clinical instructor painting 14. Include patient/ patient's sales representative printing supplies in decisions related to nutrition Outcome: Adequate [...] Score of =/> 25 or indicated by [facility] Assessment Goal: Patient should be free from fall Description: Interventions: 1. [place] to environment 2. Hourly rounds addressing the [...] non-skid footwear 11. Teach patient and patient sales representative printing supplies to maintain environment for safety and engage [...] (cane, walker) within reach 19. Request patient sales representative printing supplies bring adaptive equipment/mobility aids from home or obtain and provide as needed 20. Consult pharmacy regarding effects of med's affecting mobility, cognition, and alternatives 21. Obtain physician order for PT if risk factors associated with mobility are present 22. Obtain physician order for OT as appropriate 23. Utilize diversional activities 24. Educate patient and patient sales representative printing supplies how to maintain a safe environment during visitationtimes (notify nurse prior to leaving bedside) 25. Consider appropriateness of medical or non-medical review specialist 26. Set up voiding schedule as appropriate [...] on patient's door 9. Provide patient/ patient sales representative printing supplies with isolation education. Outcome: Adequate for Discharge Problem: Safety - Medical Restraint Goal: Remains free of injury from restraints (Restraint for Interference with Inventory Control Analyst) Description: INTERVENTIONS: 1. Determine that other, less [...] Free from restraint(s) (Restraint for Interference with Inventory Control Analyst) Description: INTERVENTIONS: 1. Hourly rounds addressing the [...] Prior Auth approved for admission to : [facility] (P# ; F# ) Approval #[id number] Valid for Dates: 06.21.2025-06.27.2025 * Plan of Care - Cooper Zavala RN - 06/22/2025 1:04 AM EDT Problem: Pain Goal: Patient goal is pain score less than 4, able to rest, and participant in treatment plan as appropriate Description: INTERVENTIONS: 1. Encourage patient or legal sales representative printing supplies to report early pain and ask for [...] per policy 9. Teach patient or legal sales representative printing supplies interventions for comforting Outcome: Progressing Note: Patient [...] at the bedside 7. Instruct patient/ patient sales representative printing supplies about use of safety devices 8. Include patient/ patient sales representative printing supplies in decisions related to safety Outcome: Progressing [...] hygiene technique. 7. Identify and instruct patient/patient sales representative printing supplies in use of appropriate isolation precautionsfor identified infection/symptoms. 8. Provide and discuss with patient/patient sales representative printing supplies on educational MDRO sheet. 9. Encourage and monitor nutritional status daily and consult instructor painting if indicated. 10. Implement neutropenic guidelines as needed. Outcome: Progressing Note: Evaluation of progress towards goal: Patient will not acquire any infections during stay Problem: Knowledge Deficit Goal: Patient/patient sales representative printing supplies demonstrates understanding of disease process, treatment plan,medications, [...] develop effective communication strategies 4. Include patient/patient sales representative printing supplies in decisions related to communication Outcome: Progressing [...] Collaborate with ancillary departments 14. Include patient/patient sales representative printing supplies in decisions related to anxiety Outcome: Progressing [...] supplement as ordered 13. Collaborate with clinical instructor painting 14. Include patient/ patient's sales representative printing supplies in decisions related to nutrition Outcome: Progressing [...] Score of =/> 25 or indicated by [facility] Assessment Goal: Patient should be free from fall Description: Interventions: 1. [place] to environment 2. Hourly rounds addressing the [...] non-skid footwear 11. Teach patient and patient sales representative printing supplies to maintain environment for safety and engage [...] (cane, walker) within reach 19. Request patient sales representative printing supplies bring adaptive equipment/mobility aids from home or obtain and provide as needed 20. Consult pharmacy regarding effects of med's affecting mobility, cognition, and alternatives 21. Obtain physician order for PT if risk factors associated with mobility are present 22. Obtain physician order for OT as appropriate 23. Utilize diversional activities 24. Educate patient and patient sales representative printing supplies how to maintain a safe environment during visitationtimes (notify nurse prior to leaving bedside) 25. Consider appropriateness of medical or non-medical review specialist 26. Set up voiding schedule as appropriate [...] on patient's door 9. Provide patient/ patient sales representative printing supplies with isolation education. Outcome: Progressing Note: Patient infection control precautions in place Problem: Safety - Medical Restraint Goal: Remains free of injury from restraints (Restraint for Interference with Inventory Control Analyst) Description: INTERVENTIONS: 1. Determine that other, less [...] Free from restraint(s) (Restraint for Interference with Inventory Control Analyst) Description: INTERVENTIONS: 1. Hourly rounds addressing the [...] Via: Juan On behalf of : [facility] (P# ; F# ) * Discharge Planning Note - Chloe Denis - 06/21/2025 1:42 PM EDT DISCHARGE PLANNING NOTE Referrals sent to [facility] (P# ; F# ), [facility] (P# ; F# ) and to [facility] Bed unit for our records P# ; F# ). E-mail sent to [facility] Patient Access team (#[facility] - [facility] Admits for [facility], regarding acceptance. * Discharge Planning Note - [...] Discharge Disposition Discharge Disposition SNF SNF Name [facility]/ [place] SN[facility] SNF Accepted? Yes Does the patient need discharge transportation arranged? Yes Mobility issues discussed with transportation provider No Patient choice offered Yes List Provided Yes CarePort List Provided [facility] Facility Discussed patient today during rounds. Plan- SNF. Spoke with patient's to get more SNF choices. Tasked [facility] to send referrals. Barriers- dopplers, acceptance, auth. - JODI PAYNE, YUMIKO 06/21/25 1:10 PM Spoke with patient's to update her that [facility] is able to accept. She is in agreement. Tasked [facility] to start auth. - YUMIKO PLASENCIA 06/21/25 3:58 PM * PT/OT/HOSPITALITY DIRECTOR - XANDER Orozco - 06/21/2025 1:07 PM EDT Speech Therapy HOSPITALITY DIRECTOR Type of Visit: Medical deferral Reasons for Medical Deferral: Surgery/procedure/other testing Pt off the floor/ * Plan of Care - Fátima Alvarez RN - 06/20/2025 11:20 PM EDT Problem: Pain Goal: Patient goal is pain score less than 4, able to rest, and participant in treatment plan as appropriate Description: INTERVENTIONS: 1. Encourage patient or legal sales representative printing supplies to report early pain and ask for [...] per policy 9. Teach patient or legal sales representative printing supplies interventions for comforting Outcome: Progressing Note: Pain [...] at the bedside 7. Instruct patient/ patient sales representative printing supplies about use of safety devices 8. Include patient/ patient sales representative printing supplies in decisions related to safety Outcome: Progressing [...] hygiene technique. 7. Identify and instruct patient/patient sales representative printing supplies in use of appropriate isolation precautionsfor identified infection/symptoms. 8. Provide and discuss with patient/patient sales representative printing supplies on educational MDRO sheet. 9. Encourage and monitor nutritional status daily and consult instructor painting if indicated. 10. Implement neutropenic guidelines as [...] Score of =/> 25 or indicated by [facility] Assessment Goal: Patient should be free from fall Description: Interventions: 1. [place] to environment 2. Hourly rounds addressing the [...] non-skid footwear 11. Teach patient and patient sales representative printing supplies to maintain environment for safety and engage [...] (cane, walker) within reach 19. Request patient sales representative printing supplies bring adaptive equipment/mobility aids from home or obtain and provide as needed 20. Consult pharmacy regarding effects of med's affecting mobility, cognition, and alternatives 21. Obtain physician order for PT if risk factors associated with mobility are present 22. Obtain physician order for OT as appropriate 23. Utilize diversional activities 24. Educate patient and patient sales representative printing supplies how to maintain a safe environment during visitationtimes (notify nurse prior to leaving bedside) 25. Consider appropriateness of medical or non-medical review specialist 26. Set up voiding schedule as appropriate (every 2 hours) Outcome: Progressing Note: Evaluation of progress towards goal: Patient educated on proper use of call light before getting up. Fall precautions including bed alarm are on at this time. * Discharge Planning Note - Cheryl Craig - 06/20/2025 2:08 PM EDT DISCHARGE PLANNING NOTE Updates sent to [facility], [facility] (P# ; F# ) [facility] [place], [place] (P# ; F# ) * Discharge [...] Discharge Disposition Discharge Disposition [facility] SN[facility] Accepted? Yes Does the patient need discharge transportation arranged? Yes Mobility issues discussed with transportation provider No Patient choice offered Yes List Provided Yes CarePort List Provided [facility] Discussed patient today during rounds. Plan- SNF. Barriers- restraints removed today at 9:45 am perfloor nurse, bed availability, auth, BRANDON, IVF, mayo. - YUMIKO PLASENCIA 06/20/25 11:15 AM Called admissions at both [facility] and [place] and asked them to call this health underwriter if they can accept patient or not. Left callback #. - YUMIKO PLASENCIA 06/20/25 11:28 AM Tasked [facility] to send updated notes to reviewing SNFs. - YUMIKO PLASENCIA 06/20/25 1:16 PM * PT/OT/HOSPITALITY DIRECTOR - Danny Herrera PTA - 06/20/2025 9:32 AM EDT Physical Therapy [...] ok for therapy per GEOFF Sanchez Equipment: rolling walker, gait belt, Mayo catheter, IV, restraints at this time due to pulling onlines Telemetry/Radiation Control Worker: Yes Oxygen Used: room air Other: high [...] Outcomes Date/Time User Outcome 06/20/25 0917 Danny Hererra HOTEL SERVICE SUPERVISOR Progressing 06/18/25 1034 Bautista Doyle HOTEL SERVICE SUPERVISOR Progressing 06/14/25 1025 Danny Herrera PTA Progressing 06/12/25 1451 Danny Herrera PTA Progressing 06/09/25 1445 [facility], HOTEL SERVICE SUPERVISOR Progressing Goal Note filed on 06/20/25 0917 by Danny Herrera PTA Evaluation of progress towards goal: Problem: Bed Mobility Dates: Start: 06/07/25 Disciplines: PT Goal: Patient will perform bed mobility with Minimum Assist Dates: Start: 06/07/25 Expected End: 06/30/25 Description: Goal Description: Disciplines: PT Outcomes Date/Time User Outcome 06/20/25 0917 Danny Herrera PTA Progressing 06/18/25 1034 Bautista Doyel HOTEL SERVICE SUPERVISOR Progressing 06/14/25 1025 Danny Herrera PTA Progressing 06/09/25 1445 [facility], HOTEL SERVICE SUPERVISOR Progressing Goal Note filed on 06/20/25 0917 by Danny Herrera PTA Evaluation of progress towards goal: Problem: Gait Dates: Start: 06/07/25 Disciplines: PT Goal: Patient will perform gait with Minimum Assist Dates: Start: 06/07/25 Expected End: 06/30/25 Description: 100 feet with RW support for safe mobility Goal Description: Disciplines: PT Outcomes Date/Time User Outcome 06/18/25 1034 Bautista Doyle PTA Progressing 06/14/25 1025 Danny Herrera, HOTEL SERVICE SUPERVISOR Progressing 06/12/25 1451 Danny Herrera, HOTEL SERVICE SUPERVISOR Progressing 06/09/25 1445 Stan Graham, HOTEL SERVICE SUPERVISOR Progressing Goal Note filed on 06/14/25 1025 by Danny Herrera PTA Evaluation of progress towards goal: Problem: Sitting Balance Dates: Start: 06/07/25 Disciplines: PT Goal: Improve balance to good Dates: Start: 06/07/25 Expected End: 06/30/25 Description: Static Dynamic for safe ADLs and transfers Disciplines: PT Outcomes Date/Time User Outcome 06/20/25 0917 Danny Herrera, HOTEL SERVICE SUPERVISOR Progressing 06/18/25 1034 Bautista Doyle, HOTEL SERVICE SUPERVISOR Progressing 06/14/25 1025 Danny Herrera, HOTEL SERVICE SUPERVISOR Progressing 06/12/25 1451 Danny Herrera, HOTEL SERVICE SUPERVISOR Progressing 06/09/25 1445 Stan Graham, HOTEL SERVICE SUPERVISOR Progressing Goal Note filed on 06/20/25 0917 by Danny Herrera PTA Evaluation of progress towards goal: Problem: Standing Balance Dates: Start: 06/07/25 Disciplines: PT Goal: Improve balance to fair Dates: Start: 06/07/25 Expected End: 06/30/25 Description: Static Dynamic with walker support for safe mobility, decreased fall risk Disciplines: PT Outcomes Date/Time User Outcome 06/18/25 1034 Bautista Doyle, HOTEL SERVICE SUPERVISOR Progressing 06/14/25 1025 Danny Herrera, HOTEL SERVICE SUPERVISOR Progressing 06/12/25 1451 Danny Herrera, HOTEL SERVICE SUPERVISOR Progressing 06/09/25 1445 Stan Graham, HOTEL SERVICE SUPERVISOR Progressing Goal Note filed on 06/14/25 1025 by Danny Herrera PTA Evaluation of progress towards goal: Problem: Transfers Dates: Start: 06/07/25 Disciplines: PT Goal: Patient will perform transfers with Minimum Assist Dates: Start: 06/07/25 Expected End: 06/30/25 Description: Goal Description: with RW support Disciplines: PT Outcomes Date/Time User Outcome 06/18/25 1034 Bautista Doyle, HOTEL SERVICE SUPERVISOR Progressing 06/14/25 1025 Danny Herrera, HOTEL SERVICE SUPERVISOR Progressing 06/12/25 1451 Danny Herrera, HOTEL SERVICE SUPERVISOR Progressing 06/09/25 1445 Stan Graham, HOTEL SERVICE SUPERVISOR Progressing Goal Note filed on 06/14/25 1025 by Danny Herrera PTA Evaluation of progress towards goal: Physical Therapy Care Plan (Resolved) There are no resolved problems. Principal Problem: ICH (intracerebral hemorrhage) ([facility]) Cosigned by Yelitza Jauregui PT at 06/20/2025 11:27 AM EDT Associated attestation - Yelitza Jauregui PT - 06/20/2025 11:27 AM EDT I have reviewed and agree with this note and education documentation for this visit. * PT/OT/HOSPITALITY DIRECTOR - MARU Brown - 06/20/2025 9:29 AM EDT Occupational Therapy [...] little Scoring Daily Activity Raw Score: 11 [facility] G Code Modifier: CL Therapy Plan Need [...] Sanchez Equipment: mayo, IV and bed alarm Telemetry/Radiation Control Worker: Yes Oxygen Used: room air Other: high fall risk, seizure precautions, confusion Pain Assessment Pain Assessment: No/denies pain ADL / IADL Hand Dominance: Right Where Assessed: Edge of bed Grooming Assistance: (when health underwriter placed wash cloth in front of pt to offer to wash face with, pt leaned forward and placed face in health underwriter's hand and shook head side to side [...] Date/Time User Outcome 06/20/25 0928 Sue Yousif-Rawls, PRODUCT OWNER/L Not Progressing 06/18/25 1040 Sue Benja-Rawls, PRODUCT OWNER/L Progressing 06/14/25 1035 Sue Benja-Rawls, BATOOL/L Progressing 06/12/25 1458 Phyllis Kunz, SAMUEL/L Progressing 06/09/25 1503 Sue Benja-Rawls, PRODUCT OWNER/L Progressing Problem: Bathing LB Dates: Start: 06/07/25 [...] BATOOL/L Not Progressing 06/18/25 1040 Sue Yousif-Rawls, BATOOL/L Not Progressing 06/14/25 1035 Sue Yousif-Rawls, BATOOL/L Progressing 06/09/25 1503 Sue Yousif-Rawls, BATOOL/L Progressing Problem: Cognition Dates: Start: 06/07/25 Disciplines: OT Goal: Improve cognition Dates: Start: 06/07/25 Expected End: 07/08/25 Description: Follow one step commands 100% of the time Disciplines: OT Outcomes Date/Time User Outcome 06/20/25 0928 Sue Yousif-Rawls, PRODUCT OWNER/L Not Progressing 06/18/25 1040 Sue Yousif-Rawls, PRODUCT OWNER/L Not Progressing 06/14/25 1035 Sue Yousif-Rawls, PRODUCT OWNER/L Not Progressing 06/12/25 1458 Phyllis Kunz, SAMUEL/L [...] BATOOL/L Not Progressing 06/14/25 1035 Sue Yousif-Rawls, PRODUCT OWNER/L Progressing 06/12/25 1458 Phyllis Dickeyllinger, SAMUEL/L Progressing 06/09/25 1503 Sue Yousif-Rawls, BATOOL/L Progressing Problem: Grooming Dates: Start: 06/07/25 Disciplines: OT Goal: Patient will perform grooming with Minimum Assist Dates: Start: 06/07/25 Expected End: 07/08/25 Description: Goal Description: Disciplines: OT Outcomes Date/Time User Outcome 06/20/25 0928 Sue Yousif-Rawls, BATOOL/L Not Progressing 06/12/25 1458 Phyllis Dickeylllois, SAMUEL/L Progressing 06/09/25 1503 Sue Yousif-Rawls, PRODUCT OWNER/L Progressing Problem: Home Management Dates: Start: 06/07/25 [...] BATOOL/L Not Progressing 06/18/25 1040 Sue Yousif-Rawls, PRODUCT OWNER/L Progressing 06/14/25 1035 Sue Yousif-Rawls, BATOOL/L Progressing 06/12/25 1458 Phyllis Hullinger, SAMUEL/L Progressing 06/09/25 1503 Sue Yousif-Rawls, PRODUCT OWNER/L Progressing Problem: Standing Balance Dates: Start: 06/07/25 Disciplines: OT Goal: Improve balance to good Dates: Start: 06/07/25 Expected End: 07/08/25 Description: Good dynamic balance. Disciplines: OT Outcomes Date/Time User Outcome 06/18/25 1040 Sue Yousif-Rawls, PRODUCT OWNER/L Progressing 06/14/25 1035 Sue Yousif-Rawls, PRODUCT OWNER/L Progressing 06/12/25 1458 Phyllis Kunz, SAMUEL/L Progressing 06/09/25 1503 Sue Yousif-Rawls, PRODUCT OWNER/L Progressing Problem: Strength Dates: Start: 06/07/25 Disciplines: OT Goal: Improve strength Dates: Start: 06/07/25 Expected End: 07/08/25 Description: Improve bilateral upper extremity strength to be able to complete full ADL tasks without rest breaks. Disciplines: OT Outcomes Date/Time User Outcome 06/20/25 0928 Sue Yousif-Rawls, PRODUCT OWNER/L Not Progressing 06/18/25 1040 Sue Yousif-Rawls, BATOOL/L Progressing 06/14/25 1035 Sue Yousif-Rawls, BATOOL/L Progressing 06/14/25 1033 Sue Yousif-Rawls, PRODUCT OWNER/L Progressing 06/12/25 1458 Phyllis Kunz, SAMUEL/L Progressing 06/09/25 1503 Sue Yousif-Rawls, PRODUCT OWNER/L Progressing Problem: Toilet Transfers Dates: Start: 06/07/25 Disciplines: OT Goal: Patient will perform toilet transfers with Minimum Assist Dates: Start: 06/07/25 Expected End: 07/08/25 Description: Goal Description: Disciplines: OT Problem: Toileting Dates: Start: 06/07/25 Disciplines: OT Goal: Patient will perform toileting with Minimum Assist Dates: Start: 06/07/25 Expected End: 07/08/25 Description: Goal Description: Disciplines: OT Outcomes Date/Time User Outcome 06/18/25 1040 Sue Yousif-Rawls, PRODUCT OWNER/L Not Progressing 06/09/25 1503 Sue Yousif-Rawls, PRODUCT OWNER/L Not Progressing Problem: Transfers Dates: Start: 06/07/25 Disciplines: OT Goal: Patient will perform transfers with Contact Guard Dates: Start: 06/07/25 Expected End: 07/08/25 Description: Goal Description: Disciplines: OT Outcomes Date/Time User Outcome 06/18/25 1040 Sue Hernandez BATOOL/L Progressing 06/14/25 1035 Sue Hernandez PRODUCT OWNER/L Progressing 06/12/25 1458 Phyllis Kunz SAMUEL/L Progressing 06/09/25 1503 Sue Hernandez BATOOL/L Progressing Occupational Therapy Care Plan (Resolved) There are no resolved problems. Principal Problem: ICH (intracerebral hemorrhage) ([facility]) Cosigned by STEPH Gant/Brendon at 06/20/2025 11:32 AM EDT Associated attestation - Dixon Murphy OTR/Brendon - 06/20/2025 11:32 AM EDT I have reviewed and agree with this note and education documentation for this visit. * Plan of Care - Laura Jeff RN - 06/20/2025 8:38 AM EDT Problem: Pain Goal: Patient goal is pain score less than 4, able to rest, and participant in treatment plan as appropriate Description: INTERVENTIONS: 1. Encourage patient or legal sales representative printing supplies to report early pain and ask for [...] per policy 9. Teach patient or legal sales representative printing supplies interventions for comforting Outcome: Progressing Note: Evaluation [...] at the bedside 7. Instruct patient/ patient sales representative printing supplies about use of safety devices 8. Include patient/ patient sales representative printing supplies in decisions related to safety Outcome: Progressing [...] hygiene technique. 7. Identify and instruct patient/patient sales representative printing supplies in use of appropriate isolation precautionsfor identified infection/symptoms. 8. Provide and discuss with patient/patient sales representative printing supplies on educational MDRO sheet. 9. Encourage and monitor nutritional status daily and consult instructor painting if indicated. 10. Implement neutropenic guidelines as needed. Outcome: Progressing Note: Evaluation of progress towards goal: assess Problem: Knowledge Deficit Goal: Patient/patient sales representative printing supplies demonstrates understanding of disease process, treatment plan,medications, [...] develop effective communication strategies 4. Include patient/patient sales representative printing supplies in decisions related to communication Outcome: Progressing [...] Collaborate with ancillary departments 14. Include patient/patient sales representative printing supplies in decisions related to anxiety Outcome: Progressing [...] supplement as ordered 13. Collaborate with clinical instructor painting 14. Include patient/ patient's sales representative printing supplies in decisions related to nutrition Outcome: Progressing [...] Score of =/> 25 or indicated by [facility] Assessment Goal: Patient should be free from fall Description: Interventions: 1. [place] to environment 2. Hourly rounds addressing the [...] non-skid footwear 11. Teach patient and patient sales representative printing supplies to maintain environment for safety and engage [...] (cane, walker) within reach 19. Request patient sales representative printing supplies bring adaptive equipment/mobility aids from home or obtain and provide as needed 20. Consult pharmacy regarding effects of med's affecting mobility, cognition, and alternatives 21. Obtain physician order for PT if risk factors associated with mobility are present 22. Obtain physician order for OT as appropriate 23. Utilize diversional activities 24. Educate patient and patient sales representative printing supplies how to maintain a safe environment during visitationtimes (notify nurse prior to leaving bedside) 25. Consider appropriateness of medical or non-medical review specialist 26. Set up voiding schedule as appropriate [...] on patient's door 9. Provide patient/ patient sales representative printing supplies with isolation education. Outcome: Progressing Note: Evaluation of progress towards goal: assess Problem: Safety - Medical Restraint Goal: Remains free of injury from restraints (Restraint for Interference with Inventory Control Analyst) Description: INTERVENTIONS: 1. Determine that other, less [...] Free from restraint(s) (Restraint for Interference with Inventory Control Analyst) Description: INTERVENTIONS: 1. Hourly rounds addressing the [...] Description: INTERVENTIONS: 1. Encourage patient or legal sales representative printing supplies to report early pain and ask for [...] per policy 9. Teach patient or legal sales representative printing supplies interventions for comforting Outcome: Progressing Note: Evaluation [...] at the bedside 7. Instruct patient/ patient sales representative printing supplies about use of safety devices 8. Include patient/ patient sales representative printing supplies in decisions related to safety Outcome: Progressing [...] hygiene technique. 7. Identify and instruct patient/patient sales representative printing supplies in use of appropriate isolation precautionsfor identified infection/symptoms. 8. Provide and discuss with patient/patient sales representative printing supplies on educational MDRO sheet. 9. Encourage and monitor nutritional status daily and consult instructor painting if indicated. 10. Implement neutropenic guidelines as needed. Outcome: Progressing Note: Evaluation of progress towards goal: Assess and monitor for signs and symptoms of infection. Problem: Knowledge Deficit Goal: Patient/patient sales representative printing supplies demonstrates understanding of disease process, treatment plan,medications, [...] develop effective communication strategies 4. Include patient/patient sales representative printing supplies in decisions related to communication Outcome: Progressing [...] Collaborate with ancillary departments 14. Include patient/patient sales representative printing supplies in decisions related to anxiety Outcome: Progressing [...] supplement as ordered 13. Collaborate with clinical instructor painting 14. Include patient/ patient's sales representative printing supplies in decisions related to nutrition Outcome: Progressing [...] Score of =/> 25 or indicated by [facility] Assessment Goal: Patient should be free from fall Description: Interventions: 1. [place] to environment 2. Hourly rounds addressing the [...] non-skid footwear 11. Teach patient and patient sales representative printing supplies to maintain environment for safety and engage [...] (cane, walker) within reach 19. Request patient sales representative printing supplies bring adaptive equipment/mobility aids from home or obtain and provide as needed 20. Consult pharmacy regarding effects of med's affecting mobility, cognition, and alternatives 21. Obtain physician order for PT if risk factors associated with mobility are present 22. Obtain physician order for OT as appropriate 23. Utilize diversional activities 24. Educate patient and patient sales representative printing supplies how to maintain a safe environment during visitationtimes (notify nurse prior to leaving bedside) 25. Consider appropriateness of medical or non-medical review specialist 26. Set up voiding schedule as appropriate (every 2 hours) Outcome: Progressing Note: Evaluation of progress towards goal: Hourly rounds addressing the 4 P's (Pain, Positioning, Possessions, Potty) Problem: Safety - Medical Restraint Goal: Remains free of injury from restraints (Restraint for Interference with Inventory Control Analyst) Description: INTERVENTIONS: 1. Determine that other, less [...] Free from restraint(s) (Restraint for Interference with Inventory Control Analyst) Description: INTERVENTIONS: 1. Hourly rounds addressing the [...] on patient's door 9. Provide patient/ patient sales representative printing supplies with isolation education. Outcome: Progressing Note: Evaluation [...] Discharge Disposition Discharge Disposition SNF SNF Name [facility]/ [facility] Accepted? Yes Does the patient need discharge transportation arranged? Yes Mobility issues discussed with transportation provider No Patient choice offered Yes List Provided Yes [facility] List Provided [facility] Facility Discussed patient today during rounds. Plan- [facility] accepting. Barriers- restraints, stent today, BRANDON, IVF, auth. - YUMIKO PLASENCIA 06/19/25 10:04 AM * Plan of Care - Laura Jeff RN - 06/19/2025 8:36 AM EDT Problem: Pain Goal: Patient goal is pain score less than 4, able to rest, and participant in treatment plan as appropriate Description: INTERVENTIONS: 1. Encourage patient or legal sales representative printing supplies to report early pain and ask for [...] per policy 9. Teach patient or legal sales representative printing supplies interventions for comforting Outcome: Progressing Note: Evaluation [...] at the bedside 7. Instruct patient/ patient sales representative printing supplies about use of safety devices 8. Include patient/ patient sales representative printing supplies in decisions related to safety Outcome: Progressing [...] hygiene technique. 7. Identify and instruct patient/patient sales representative printing supplies in use of appropriate isolation precautionsfor identified infection/symptoms. 8. Provide and discuss with patient/patient sales representative printing supplies on educational MDRO sheet. 9. Encourage and monitor nutritional status daily and consult instructor painting if indicated. 10. Implement neutropenic guidelines as needed. Outcome: Progressing Note: Evaluation of progress towards goal: assess Problem: Knowledge Deficit Goal: Patient/patient sales representative printing supplies demonstrates understanding of disease process, treatment plan,medications, [...] develop effective communication strategies 4. Include patient/patient sales representative printing supplies in decisions related to communication Outcome: Progressing [...] Collaborate with ancillary departments 14. Include patient/patient sales representative printing supplies in decisions related to anxiety Outcome: Progressing [...] supplement as ordered 13. Collaborate with clinical instructor painting 14. Include patient/ patient's sales representative printing supplies in decisions related to nutrition Outcome: Progressing [...] Score of =/> 25 or indicated by [facility] Assessment Goal: Patient should be free from fall Description: Interventions: 1. [place] to environment 2. Hourly rounds addressing the [...] non-skid footwear 11. Teach patient and patient sales representative printing supplies to maintain environment for safety and engage [...] (cane, walker) within reach 19. Request patient sales representative printing supplies bring adaptive equipment/mobility aids from home or obtain and provide as needed 20. Consult pharmacy regarding effects of med's affecting mobility, cognition, and alternatives 21. Obtain physician order for PT if risk factors associated with mobility are present 22. Obtain physician order for OT as appropriate 23. Utilize diversional activities 24. Educate patient and patient sales representative printing supplies how to maintain a safe environment during visitationtimes (notify nurse prior to leaving bedside) 25. Consider appropriateness of medical or non-medical review specialist 26. Set up voiding schedule as appropriate [...] on patient's door 9. Provide patient/ patient sales representative printing supplies with isolation education. Outcome: Progressing Note: Evaluation of progress towards goal: assess Problem: Safety - Medical Restraint Goal: Remains free of injury from restraints (Restraint for Interference with Inventory Control Analyst) Description: INTERVENTIONS: 1. Determine that other, less [...] Free from restraint(s) (Restraint for Interference with Inventory Control Analyst) Description: INTERVENTIONS: 1. Hourly rounds addressing the [...] Description: INTERVENTIONS: 1. Encourage patient or legal sales representative printing supplies to report early pain and ask for [...] per policy 9. Teach patient or legal sales representative printing supplies interventions for comforting Outcome: Progressing Note: Evaluation [...] at the bedside 7. Instruct patient/ patient sales representative printing supplies about use of safety devices 8. Include patient/ patient sales representative printing supplies in decisions related to safety Outcome: Progressing [...] hygiene technique. 7. Identify and instruct patient/patient sales representative printing supplies in use of appropriate isolation precautionsfor identified infection/symptoms. 8. Provide and discuss with patient/patient sales representative printing supplies on educational MDRO sheet. 9. Encourage and monitor nutritional status daily and consult instructor painting if indicated. 10. Implement neutropenic guidelines as needed. Outcome: Progressing Note: Evaluation of progress towards goal: assess Problem: Knowledge Deficit Goal: Patient/patient sales representative printing supplies demonstrates understanding of disease process, treatment plan,medications, [...] develop effective communication strategies 4. Include patient/patient sales representative printing supplies in decisions related to communication Outcome: Progressing [...] Collaborate with ancillary departments 14. Include patient/patient sales representative printing supplies in decisions related to anxiety Outcome: Progressing [...] supplement as ordered 13. Collaborate with clinical instructor painting 14. Include patient/ patient's sales representative printing supplies in decisions related to nutrition Outcome: Progressing [...] Score of =/> 25 or indicated by [facility] Assessment Goal: Patient should be free from fall Description: Interventions: 1. [place] to environment 2. Hourly rounds addressing the [...] non-skid footwear 11. Teach patient and patient sales representative printing supplies to maintain environment for safety and engage [...] (cane, walker) within reach 19. Request patient sales representative printing supplies bring adaptive equipment/mobility aids from home or obtain and provide as needed 20. Consult pharmacy regarding effects of med's affecting mobility, cognition, and alternatives 21. Obtain physician order for PT if risk factors associated with mobility are present 22. Obtain physician order for OT as appropriate 23. Utilize diversional activities 24. Educate patient and patient sales representative printing supplies how to maintain a safe environment during visitationtimes (notify nurse prior to leaving bedside) 25. Consider appropriateness of medical or non-medical review specialist 26. Set up voiding schedule as appropriate [...] on patient's door 9. Provide patient/ patient sales representative printing supplies with isolation education. Outcome: Progressing Note: Evaluation of progress towards goal: assess Problem: Safety - Medical Restraint Goal: Remains free of injury from restraints (Restraint for Interference with Inventory Control Analyst) Description: INTERVENTIONS: 1. Determine that other, less [...] Free from restraint(s) (Restraint for Interference with Inventory Control Analyst) Description: INTERVENTIONS: 1. Hourly rounds addressing the [...] Discharge Disposition [facility] Accepted? Yes Does the patient need discharge transportation arranged? Yes Mobility issues discussed with transportation provider No Patient choice offered Yes List Provided Yes [facility] List Provided [facility] Facility Discussed patient today during rounds. Plan- [facility] accepting and will have a bed for him on 06/20/25. Needs to be off restraints for 24 hours prior to d/c. Barriers- restraints, stent needed today, updated therapy notes for auth. - YUMIKO PLASENCIA 06/18/25 11:05 AM * PT/OT/HOSPITALITY DIRECTOR - MARU Brown 06/18/2025 10:42 AM EDT Occupational Therapy Treatment [...] Equipment: gait belt, RW, bed alarm, mayo Telemetry/Radiation Control Worker: Yes Oxygen Used: room air Other: Seizure precautions. High fall risk, confusion Pain Assessment Pain Assessment: No/denies pain ADL / IADL Hand Dominance: Right Where Assessed: Other (Comment) (standing at EOB) Toilet/Commode Assistance: Total assist (for hygiene; once pt was standing at EOB health underwriter noticed stool, pt unaware; required totalA for [...] Date/Time User Outcome 06/18/25 1040 Sue Yousif-Rawls, PRODUCT OWNER/L Progressing 06/14/25 1035 Sue Yousif-Rawls, PRODUCT OWNER/L Progressing 06/12/25 1458 Phyllis Kunz, SAMUEL/L Progressing 06/09/25 1503 Sue Yousif-Rawls, PRODUCT OWNER/L Progressing Problem: Bathing LB Dates: Start: 06/07/25 [...] Progressing 06/14/25 1035 Sue Yousif-Rawls, BATOOL/L Progressing 06/09/25 1503 Sue Yousif-Rawls, PRODUCT OWNER/L Progressing Problem: Cognition Dates: Start: 06/07/25 Disciplines: OT Goal: Improve cognition Dates: Start: 06/07/25 Expected End: 07/08/25 Description: Follow one step commands 100% of the time Disciplines: OT Outcomes Date/Time User Outcome 06/18/25 1040 Sue Yousif-Rawls, PRODUCT OWNER/L Not Progressing 06/14/25 1035 Sue Yousif-Rawls, BATOOL/L Not Progressing 06/12/25 1458 Phyllis Kunz, SAMUEL/L Progressing 06/09/25 1503 Sue Yousif-Rawls, PRODUCT OWNER/L Progressing Problem: Dressing LB Dates: Start: 06/07/25 [...] Date/Time User Outcome 06/18/25 1040 Sue Yousif-Rawls, PRODUCT OWNER/L Not Progressing 06/14/25 1035 Sue Yousif-Rawls, PRODUCT OWNER/L Progressing 06/12/25 1458 Phyllis Kunz, SAMUEL/L Progressing 06/09/25 1503 Sue Yousif-Arwls, BATOOL/L Progressing Problem: Grooming Dates: Start: 06/07/25 [...] Date/Time User Outcome 06/18/25 1040 Sue Yousif-Rawls, PRODUCT OWNER/L Progressing 06/14/25 1035 Sue Yousif-Rawls, BATOOL/L Progressing 06/12/25 1458 Phyllis Kunz, SAMUEL/L Progressing 06/09/25 1503 Sue Yousif-Rawls, PRODUCT OWNER/L Progressing Problem: Standing Balance Dates: Start: 06/07/25 Disciplines: OT Goal: Improve balance to good Dates: Start: 06/07/25 Expected End: 07/08/25 Description: Good dynamic balance. Disciplines: OT Outcomes Date/Time User Outcome 06/18/25 1040 Sue Yousif-Rawls, BATOOL/L Progressing 06/14/25 1035 Sue Yousif-Rawls, PRODUCT OWNER/L Progressing 06/12/25 1458 Phyllis Kunz, SAMUEL/L Progressing [...] Sue Yousif-Rawls, BATOOL/L Progressing 06/14/25 1033 Sue Youisf-Rawls, BATOOL/L Progressing 06/12/25 1458 Phyllis Kunz, SAMUEL/L Progressing 06/09/25 1503 Sue Yousif-Rawls, PRODUCT OWNER/L Progressing Problem: Toilet Transfers Dates: Start: 06/07/25 Disciplines: OT Goal: Patient will perform toilet transfers with Minimum Assist Dates: Start: 06/07/25 Expected End: 07/08/25 Description: Goal Description: Disciplines: OT Problem: Toileting Dates: Start: 06/07/25 Disciplines: OT Goal: Patient will perform toileting with Minimum Assist Dates: Start: 06/07/25 Expected End: 07/08/25 Description: Goal Description: Disciplines: OT Outcomes Date/Time User Outcome 06/18/25 1040 Sue Yousif-Rawls, PRODUCT OWNER/L Not Progressing 06/09/25 1503 Sue Yousif-Rawls, PRODUCT OWNER/L Not Progressing Problem: Transfers Dates: Start: 06/07/25 Disciplines: OT Goal: Patient will perform transfers with Contact Guard Dates: Start: 06/07/25 Expected End: 07/08/25 Description: Goal Description: Disciplines: OT Outcomes Date/Time User Outcome 06/18/25 1040 Sue Hernandez PRODUCT OWNER/L Progressing 06/14/25 1035 Sue Hernandez BATOOL/L Progressing 06/12/25 1458 Phyllis Kunz, SAMUEL/L Progressing 06/09/25 1503 Sue Hernandez PRODUCT OWNER/L Progressing Occupational Therapy Care Plan (Resolved) There are no resolved problems. Principal Problem: ICH (intracerebral hemorrhage) ([facility]) Cosigned by STEPH Gant/Brendon at 06/18/2025 2:47 PM EDT Associated attestation - Dixon Murphy OTR/Brendon - 06/18/2025 2:47 PM EDT I have reviewed and agree with this note and education documentation for this visit. * PT/OT/HOSPITALITY DIRECTOR - Bautista Doyle PTA - 06/18/2025 9:46 [...] at this time due to pulling onlines Telemetry/Radiation Control Worker: Yes Oxygen Used: room air Other: high [...] Danny Herrera PTA Progressing 06/12/25 1451 Danny eHrrera PTA Progressing 06/09/25 1445 Stan Graham PTA Progressing Goal Note filed on 06/14/25 1025 by Danny Herrera PTA Evaluation of progress towards goal: Problem: Bed Mobility Dates: Start: 06/07/25 Disciplines: PT Goal: Patient will perform bed mobility with Minimum Assist Dates: Start: 06/07/25 Expected End: 06/30/25 Description: Goal Description: Disciplines: PT Outcomes Date/Time User Outcome 06/18/25 1034 Bautista Doyle, HOTEL SERVICE SUPERVISOR Progressing 06/14/25 1025 Danny Herrera, HOTEL SERVICE SUPERVISOR Progressing 06/09/25 1445 Stan Erie, HOTEL SERVICE SUPERVISOR Progressing Goal Note filed on 06/14/25 1025 by Danny Herrera PTA Evaluation of progress towards goal: Problem: Gait Dates: Start: 06/07/25 Disciplines: PT Goal: Patient will perform gait with Minimum Assist Dates: Start: 06/07/25 Expected End: 06/30/25 Description: 100 feet with RW support for safe mobility Goal Description: Disciplines: PT Outcomes Date/Time User Outcome 06/18/25 1034 Bautista Doyle, HOTEL SERVICE SUPERVISOR Progressing 06/14/25 1025 Danny Herrera, HOTEL SERVICE SUPERVISOR Progressing 06/12/25 1451 Danny Herrera, HOTEL SERVICE SUPERVISOR Progressing 06/09/25 [facility] HOTEL SERVICE SUPERVISOR Progressing Goal Note filed on 06/14/25 1025 by Danny Herrera PTA Evaluation of progress towards goal: Problem: Sitting Balance Dates: Start: 06/07/25 Disciplines: PT Goal: Improve balance to good Dates: Start: 06/07/25 Expected End: 06/30/25 Description: Static Dynamic for safe ADLs and transfers Disciplines: PT Outcomes Date/Time User Outcome 06/18/25 1034 Bautista Doyle, HOTEL SERVICE SUPERVISOR Progressing 06/14/25 1025 Danny Herrera, HOTEL SERVICE SUPERVISOR Progressing 06/12/25 1451 Danny Herrera, HOTEL SERVICE SUPERVISOR Progressing 06/09/25 1445 Stan Erie, HOTEL SERVICE SUPERVISOR Progressing Goal Note filed on 06/14/25 1025 by Danny Herrera PTA Evaluation of progress towards goal: Problem: Standing Balance Dates: Start: 06/07/25 Disciplines: PT Goal: Improve balance to fair Dates: Start: 06/07/25 Expected End: 06/30/25 Description: Static Dynamic with walker support for safe mobility, decreased fall risk Disciplines: PT Outcomes Date/Time User Outcome 06/18/25 1034 Bautista Doyle, HOTEL SERVICE SUPERVISOR Progressing 06/14/25 1025 Danny Herrera, HOTEL SERVICE SUPERVISOR Progressing 06/12/25 1451 Danny Herrera, HOTEL SERVICE SUPERVISOR Progressing 06/09/25 1445 [facility] HOTEL SERVICE SUPERVISOR Progressing Goal Note filed on 06/14/25 1025 by Danny Herrera PTA Evaluation of progress towards goal: Problem: Transfers Dates: Start: 06/07/25 Disciplines: PT Goal: Patient will perform transfers with Minimum Assist Dates: Start: 06/07/25 Expected End: 06/30/25 Description: Goal Description: with RW support Disciplines: PT Outcomes Date/Time User Outcome 06/18/25 1034 Bautista Doyle, VERN Progressing 06/14/25 1025 Danny Herrera PTA Progressing 06/12/25 1451 Danny Herrera PTA Progressing 06/09/25 1445 [facility], HOTEL SERVICE SUPERVISOR Progressing Goal Note filed on 06/14/25 1025 by Danny Herrera PTA Evaluation of progress towards goal: Physical Therapy Care Plan (Resolved) There are no resolved problems. Principal Problem: ICH (intracerebral hemorrhage) ([facility]) Cosigned by Yelitza Jauregui PT at 06/18/2025 [...] Description: INTERVENTIONS: 1. Encourage patient or legal sales representative printing supplies to report early pain and ask for [...] per policy 9. Teach patient or legal sales representative printing supplies interventions for comforting Outcome: Progressing Note: Evaluation [...] at the bedside 7. Instruct patient/ patient sales representative printing supplies about use of safety devices 8. Include patient/ patient sales representative printing supplies in decisions related to safety Outcome: Progressing [...] hygiene technique. 7. Identify and instruct patient/patient sales representative printing supplies in use of appropriate isolation precautionsfor identified infection/symptoms. 8. Provide and discuss with patient/patient sales representative printing supplies on educational MDRO sheet. 9. Encourage and monitor nutritional status daily and consult instructor painting if indicated. 10. Implement neutropenic guidelines as needed. Outcome: Progressing Note: Evaluation of progress towards goal: assess Problem: Knowledge Deficit Goal: Patient/patient sales representative printing supplies demonstrates understanding of disease process, treatment plan,medications, [...] develop effective communication strategies 4. Include patient/patient sales representative printing supplies in decisions related to communication Outcome: Progressing [...] Collaborate with ancillary departments 14. Include patient/patient sales representative printing supplies in decisions related to anxiety Outcome: Progressing [...] supplement as ordered 13. Collaborate with clinical instructor painting 14. Include patient/ patient's sales representative printing supplies in decisions related to nutrition Outcome: Progressing [...] Score of =/> 25 or indicated by [facility] Assessment Goal: Patient should be free from fall Description: Interventions: 1. [place] to environment 2. Hourly rounds addressing the [...] non-skid footwear 11. Teach patient and patient sales representative printing supplies to maintain environment for safety and engage [...] (cane, walker) within reach 19. Request patient sales representative printing supplies bring adaptive equipment/mobility aids from home or obtain and provide as needed 20. Consult pharmacy regarding effects of med's affecting mobility, cognition, and alternatives 21. Obtain physician order for PT if risk factors associated with mobility are present 22. Obtain physician order for OT as appropriate 23. Utilize diversional activities 24. Educate patient and patient sales representative printing supplies how to maintain a safe environment during visitationtimes (notify nurse prior to leaving bedside) 25. Consider appropriateness of medical or non-medical review specialist 26. Set up voiding schedule as appropriate [...] on patient's door 9. Provide patient/ patient sales representative printing supplies with isolation education. Outcome: Progressing Note: Evaluation of progress towards goal: assess Problem: Safety - Medical Restraint Goal: Remains free of injury from restraints (Restraint for Interference with Inventory Control Analyst) Description: INTERVENTIONS: 1. Determine that other, less [...] Free from restraint(s) (Restraint for Interference with Inventory Control Analyst) Description: INTERVENTIONS: 1. Hourly rounds addressing the [...] maintained * Plan of Care - Tramaine Saeman RN - 06/18/2025 4:37 AM EDT Problem: Pain Goal: Patient goal is pain score less than 4, able to rest, and participant in treatment plan as appropriate Description: INTERVENTIONS: 1. Encourage patient or legal sales representative printing supplies to report early pain and ask for [...] per policy 9. Teach patient or legal sales representative printing supplies interventions for comforting Outcome: Progressing Note: Evaluation [...] at the bedside 7. Instruct patient/ patient sales representative printing supplies about use of safety devices 8. Include patient/ patient sales representative printing supplies in decisions related to safety Outcome: Progressing [...] hygiene technique. 7. Identify and instruct patient/patient sales representative printing supplies in use of appropriate isolation precautionsfor identified infection/symptoms. 8. Provide and discuss with patient/patient sales representative printing supplies on educational MDRO sheet. 9. Encourage and monitor nutritional status daily and consult instructor painting if indicated. 10. Implement neutropenic guidelines as needed. Outcome: Progressing Note: Evaluation of progress towards goal: . Monitor lab/diagnostic results. Problem: Knowledge Deficit Goal: Patient/patient sales representative printing supplies demonstrates understanding of disease process, treatment plan,medications, [...] develop effective communication strategies 4. Include patient/patient sales representative printing supplies in decisions related to communication Outcome: Progressing [...] Collaborate with ancillary departments 14. Include patient/patient sales representative printing supplies in decisions related to anxiety Outcome: Progressing [...] supplement as ordered 13. Collaborate with clinical instructor painting 14. Include patient/ patient's sales representative printing supplies in decisions related to nutrition Outcome: Progressing [...] Score of =/> 25 or indicated by [facility] Assessment Goal: Patient should be free from fall Description: Interventions: 1. [place] to environment 2. Hourly rounds addressing the [...] non-skid footwear 11. Teach patient and patient sales representative printing supplies to maintain environment for safety and engage [...] (cane, walker) within reach 19. Request patient sales representative printing supplies bring adaptive equipment/mobility aids from home or obtain and provide as needed 20. Consult pharmacy regarding effects of med's affecting mobility, cognition, and alternatives 21. Obtain physician order for PT if risk factors associated with mobility are present 22. Obtain physician order for OT as appropriate 23. Utilize diversional activities 24. Educate patient and patient sales representative printing supplies how to maintain a safe environment during visitationtimes (notify nurse prior to leaving bedside) 25. Consider appropriateness of medical or non-medical review specialist 26. Set up voiding schedule as appropriate (every 2 hours) Outcome: Progressing Note: Evaluation of progress towards goal: Problem: Safety - Medical Restraint Goal: Remains free of injury from restraints (Restraint for Interference with Inventory Control Analyst) Description: INTERVENTIONS: 1. Determine that other, less [...] of restraint application 06/17/2025 [id number] by GEOFF Rded Outcome: Progressing Note: Evaluation of progress towards goal: Goal: Free from restraint(s) (Restraint for Interference with Inventory Control Analyst) Description: INTERVENTIONS: 1. Hourly rounds addressing the [...] on patient's door 9. Provide patient/ patient sales representative printing supplies with isolation education. Outcome: Progressing Note: Evaluation of progress towards goal: * Plan of Care - Tramaine Seaman RN - 06/17/2025 10:00 PM EDT Problem: Pain Goal: Patient goal is pain score less than 4, able to rest, and participant in treatment plan as appropriate Description: INTERVENTIONS: 1. Encourage patient or legal sales representative printing supplies to report early pain and ask for [...] per policy 9. Teach patient or legal sales representative printing supplies interventions for comforting Outcome: Progressing Note: Evaluation [...] at the bedside 7. Instruct patient/ patient sales representative printing supplies about use of safety devices 8. Include patient/ patient sales representative printing supplies in decisions related to safety Outcome: Progressing [...] hygiene technique. 7. Identify and instruct patient/patient sales representative printing supplies in use of appropriate isolation precautionsfor identified infection/symptoms. 8. Provide and discuss with patient/patient sales representative printing supplies on educational MDRO sheet. 9. Encourage and monitor nutritional status daily and consult instructor painting if indicated. 10. Implement neutropenic guidelines as needed. Outcome: Progressing Note: Evaluation of progress towards goal: . Monitor lab/diagnostic results. Problem: Knowledge Deficit Goal: Patient/patient sales representative printing supplies demonstrates understanding of disease process, treatment plan,medications, [...] develop effective communication strategies 4. Include patient/patient sales representative printing supplies in decisions related to communication Outcome: Progressing [...] on patient's door 9. Provide patient/ patient sales representative printing supplies with isolation education. Outcome: Progressing Note: Evaluation of progress towards goal: * Plan of Care - Shawna Moncada RN - 06/17/2025 10:08 AM EDT Problem: Pain Goal: Patient goal is pain score less than 4, able to rest, and participant in treatment plan as appropriate Description: INTERVENTIONS: 1. Encourage patient or legal sales representative printing supplies to report early pain and ask for [...] per policy 9. Teach patient or legal sales representative printing supplies interventions for comforting Outcome: Progressing Note: Evaluation [...] at the bedside 7. Instruct patient/ patient sales representative printing supplies about use of safety devices 8. Include patient/ patient sales representative printing supplies in decisions related to safety Outcome: Progressing [...] hygiene technique. 7. Identify and instruct patient/patient sales representative printing supplies in use of appropriate isolation precautionsfor identified infection/symptoms. 8. Provide and discuss with patient/patient sales representative printing supplies on educational MDRO sheet. 9. Encourage and monitor nutritional status daily and consult instructor painting if indicated. 10. Implement neutropenic guidelines as needed. Outcome: Progressing Note: Evaluation of progress towards goal: standard precautions Problem: Knowledge Deficit Goal: Patient/patient sales representative printing supplies demonstrates understanding of disease process, treatment plan,medications, [...] develop effective communication strategies 4. Include patient/patient sales representative printing supplies in decisions related to communication Outcome: Progressing [...] Collaborate with ancillary departments 14. Include patient/patient sales representative printing supplies in decisions related to anxiety Outcome: Progressing [...] supplement as ordered 13. Collaborate with clinical instructor painting 14. Include patient/ patient's sales representative printing supplies in decisions related to nutrition Outcome: Progressing [...] Score of =/> 25 or indicated by [facility] Assessment Goal: Patient should be free from fall Description: Interventions: 1. [place] to environment 2. Hourly rounds addressing the [...] non-skid footwear 11. Teach patient and patient sales representative printing supplies to maintain environment for safety and engage [...] (cane, walker) within reach 19. Request patient sales representative printing supplies bring adaptive equipment/mobility aids from home or obtain and provide as needed 20. Consult pharmacy regarding effects of med's affecting mobility, cognition, and alternatives 21. Obtain physician order for PT if risk factors associated with mobility are present 22. Obtain physician order for OT as appropriate 23. Utilize diversional activities 24. Educate patient and patient sales representative printing supplies how to maintain a safe environment during visitationtimes (notify nurse prior to leaving bedside) 25. Consider appropriateness of medical or non-medical review specialist 26. Set up voiding schedule as appropriate [...] on patient's door 9. Provide patient/ patient sales representative printing supplies with isolation education. Outcome: Progressing Note: Evaluation of progress towards goal: standard precautions Problem: Safety - Medical Restraint Goal: Remains free of injury from restraints (Restraint for Interference with Inventory Control Analyst) Description: INTERVENTIONS: 1. Determine that other, less [...] Free from restraint(s) (Restraint for Interference with Inventory Control Analyst) Description: INTERVENTIONS: 1. Hourly rounds addressing the [...] Description: INTERVENTIONS: 1. Encourage patient or legal sales representative printing supplies to report early pain and ask for [...] per policy 9. Teach patient or legal sales representative printing supplies interventions for comforting Outcome: Progressing Note: Evaluation [...] at the bedside 7. Instruct patient/ patient sales representative printing supplies about use of safety devices 8. Include patient/ patient sales representative printing supplies in decisions related to safety Outcome: Progressing [...] hygiene technique. 7. Identify and instruct patient/patient sales representative printing supplies in use of appropriate isolation precautionsfor identified infection/symptoms. 8. Provide and discuss with patient/patient sales representative printing supplies on educational MDRO sheet. 9. Encourage and monitor nutritional status daily and consult instructor painting if indicated. 10. Implement neutropenic guidelines as needed. Outcome: Progressing Note: Evaluation of progress towards goal: Assess and monitor for signs and symptoms of infection. Problem: Knowledge Deficit Goal: Patient/patient sales representative printing supplies demonstrates understanding of disease process, treatment plan,medications, [...] develop effective communication strategies 4. Include patient/patient sales representative printing supplies in decisions related to communication Outcome: Progressing [...] Collaborate with ancillary departments 14. Include patient/patient sales representative printing supplies in decisions related to anxiety Outcome: Progressing [...] supplement as ordered 13. Collaborate with clinical instructor painting 14. Include patient/ patient's sales representative printing supplies in decisions related to nutrition Outcome: Progressing [...] be free from fall Description: Interventions: 1. [place] to environment 2. Hourly rounds addressing the [...] non-skid footwear 11. Teach patient and patient sales representative printing supplies to maintain environment for safety and engage [...] (cane, walker) within reach 19. Request patient sales representative printing supplies bring adaptive equipment/mobility aids from home or obtain and provide as needed 20. Consult pharmacy regarding effects of med's affecting mobility, cognition, and alternatives 21. Obtain physician order for PT if risk factors associated with mobility are present 22. Obtain physician order for OT as appropriate 23. Utilize diversional activities 24. Educate patient and patient sales representative printing supplies how to maintain a safe environment during visitationtimes (notify nurse prior to leaving bedside) 25. Consider appropriateness of medical or non-medical review specialist 26. Set up voiding schedule as appropriate (every 2 hours) Outcome: Progressing Note: Evaluation of progress towards goal: Hourly rounds addressing the 4 P's (Pain, Positioning, Possessions, Potty) Problem: Safety - Medical Restraint Goal: Remains free of injury from restraints (Restraint for Interference with Inventory Control Analyst) Description: INTERVENTIONS: 1. Determine that other, less [...] Free from restraint(s) (Restraint for Interference with Inventory Control Analyst) Description: INTERVENTIONS: 1. Hourly rounds addressing the [...] on patient's door 9. Provide patient/ patient sales representative printing supplies with isolation education. Outcome: Progressing Note: Evaluation of progress towards goal: Wear gloves for direct and indirect contact with patientor contaminants * Plan of Care - Bella Cintron RN - 06/16/2025 4:08 PM EDT Problem: Pain Goal: Patient goal is pain score less than 4, able to rest, and participant in treatment plan as appropriate Description: INTERVENTIONS: 1. Encourage patient or legal sales representative printing supplies to report early pain and ask for [...] per policy 9. Teach patient or legal sales representative printing supplies interventions for comforting Outcome: Progressing Note: Evaluation [...] at the bedside 7. Instruct patient/ patient sales representative printing supplies about use of safety devices 8. Include patient/ patient sales representative printing supplies in decisions related to safety Outcome: Progressing Note: Evaluation of progress towards goal: Pt safety maintained, hourly rounding, call light withinreach, bed alarm on, family at bedside * PT/OT/HOSPITALITY DIRECTOR - Danny Herrera PTA - 06/16/2025 10:33 [...] and education documentation for this visit. * PT/OT/HOSPITALITY DIRECTOR - MARU Brown - 06/16/2025 10:32 AM EDT Occupational Therapy OT Type of Visit: Medical deferral Reason For Medical Deferral: (pt sleeping soundly; attempted several times to arouse pt however unable) Cosigned by GREGORIO Holliday at 06/16/2025 2:00 PM EDT Associated attestation - Isa Andrade OT/L - 06/16/2025 2:00 PM EDT I have reviewed and agree with this note and education documentation for this visit. * Plan of Care - Serena Prince RN - 06/16/2025 3:10 AM EDT Problem: Safety - Medical Restraint Goal: Remains free of injury from restraints (Restraint for Interference with Inventory Control Analyst) Description: INTERVENTIONS: 1. Determine that other, less [...] Free from restraint(s) (Restraint for Interference with Inventory Control Analyst) Description: INTERVENTIONS: 1. ONCE/SHIFT or MINIMUM Q12H: [...] duration of the episode of care * PT/OT/HOSPITALITY DIRECTOR - Bautista Doyle PTA - 06/15/2025 3:57 [...] Description: INTERVENTIONS: 1. Encourage patient or legal sales representative printing supplies to report early pain and ask for [...] per policy 9. Teach patient or legal sales representative printing supplies interventions for comforting Outcome: Progressing Note: Evaluation [...] at the bedside 7. Instruct patient/ patient sales representative printing supplies about use of safety devices 8. Include patient/ patient sales representative printing supplies in decisions related to safety Outcome: Progressing [...] hygiene technique. 7. Identify and instruct patient/patient sales representative printing supplies in use of appropriate isolation precautionsfor identified infection/symptoms. 8. Provide and discuss with patient/patient sales representative printing supplies on educational MDRO sheet. 9. Encourage and monitor nutritional status daily and consult instructor painting if indicated. 10. Implement neutropenic guidelines as needed. Outcome: Progressing Note: Evaluation of progress towards goal: assess Problem: Knowledge Deficit Goal: Patient/patient sales representative printing supplies demonstrates understanding of disease process, treatment plan,medications, [...] develop effective communication strategies 4. Include patient/patient sales representative printing supplies in decisions related to communication Outcome: Progressing [...] Collaborate with ancillary departments 14. Include patient/patient sales representative printing supplies in decisions related to anxiety Outcome: Progressing [...] supplement as ordered 13. Collaborate with clinical instructor painting 14. Include patient/ patient's sales representative printing supplies in decisions related to nutrition Outcome: Progressing [...] Score of =/> 25 or indicated by [facility] Assessment Goal: Patient should be free from fall Description: Interventions: 1. [place] to environment 2. Hourly rounds addressing the [...] non-skid footwear 11. Teach patient and patient sales representative printing supplies to maintain environment for safety and engage [...] (cane, walker) within reach 19. Request patient sales representative printing supplies bring adaptive equipment/mobility aids from home or obtain and provide as needed 20. Consult pharmacy regarding effects of med's affecting mobility, cognition, and alternatives 21. Obtain physician order for PT if risk factors associated with mobility are present 22. Obtain physician order for OT as appropriate 23. Utilize diversional activities 24. Educate patient and patient sales representative printing supplies how to maintain a safe environment during visitationtimes (notify nurse prior to leaving bedside) 25. Consider appropriateness of medical or non-medical review specialist 26. Set up voiding schedule as appropriate [...] on patient's door 9. Provide patient/ patient sales representative printing supplies with isolation education. Outcome: Progressing Note: Evaluation [...] Discharge Disposition Discharge Disposition SNF SNF Name [facility] [employer] [facility] SN[facility] SNF Accepted? Yes Does the patient need discharge transportation arranged? Yes Mobility issues discussed with transportation provider No Patient choice offered Yes List Provided Yes [facility] List Provided [facility] Facility Case discussed in daily transition rounds and chart reviewed by CN. Barriers to discharge include IVF, mayo, telesitter, venous duplex, renogram, hydration - level 3 mod thick spoon only Discharge Plan remains: SNF. [facility]. CN spoke [...] Description: INTERVENTIONS: 1. Encourage patient or legal sales representative printing supplies to report early pain and ask for [...] per policy 9. Teach patient or legal sales representative printing supplies interventions for comforting Outcome: Progressing Note: Evaluation [...] at the bedside 7. Instruct patient/ patient sales representative printing supplies about use of safety devices 8. Include patient/ patient sales representative printing supplies in decisions related to safety Outcome: Progressing [...] hygiene technique. 7. Identify and instruct patient/patient sales representative printing supplies in use of appropriate isolation precautionsfor identified infection/symptoms. 8. Provide and discuss with patient/patient sales representative printing supplies on educational MDRO sheet. 9. Encourage and monitor nutritional status daily and consult instructor painting if indicated. 10. Implement neutropenic guidelines as [...] be free from fall Description: Interventions: 1. [place] to environment 2. Hourly rounds addressing the [...] non-skid footwear 11. Teach patient and patient sales representative printing supplies to maintain environment for safety and engage [...] (cane, walker) within reach 19. Request patient sales representative printing supplies bring adaptive equipment/mobility aids from home or obtain and provide as needed 20. Consult pharmacy regarding effects of med's affecting mobility, cognition, and alternatives 21. Obtain physician order for PT if risk factors associated with mobility are present 22. Obtain physician order for OT as appropriate 23. Utilize diversional activities 24. Educate patient and patient sales representative printing supplies how to maintain a safe environment during visitationtimes (notify nurse prior to leaving bedside) 25. Consider appropriateness of medical or non-medical review specialist 26. Set up voiding schedule as appropriate [...] Description: INTERVENTIONS: 1. Encourage patient or legal sales representative printing supplies to report early pain and ask for [...] per policy 9. Teach patient or legal sales representative printing supplies interventions for comforting Outcome: Progressing Note: Evaluation [...] at the bedside 7. Instruct patient/ patient sales representative printing supplies about use of safety devices 8. Include patient/ patient sales representative printing supplies in decisions related to safety Outcome: Progressing [...] Q4 hourneurological checks. Clifford Mix RN * HOSPITALITY DIRECTOR Procedure Note - Gary JohnRAKEL tee-HOSPITALITY DIRECTOR - 06/14/2025 2:20 PM EDT Speech Therapy Videofluoroscopic Swallow Study Evaluation Discharge Recommendations for Safe Patient Transition HOSPITALITY DIRECTOR Discharge Disposition Recommendation: Post acute - moderate [...] PO intake following exam. Prognosis Services: Skilled HOSPITALITY DIRECTOR services to address above deficits Prognosis/Potential: Good [...] Dysphagia Problem: Swallowing Dates: Start: 06/06/25 Disciplines: HOSPITALITY DIRECTOR Goal: LTG: Patient will maintain adequate nutrition/ hydration with optimum safety and efficiency of swallowing function of oral intake without overt signs/symptoms of aspiration for the highest appropriate diet level Dates: Start: 06/06/25 Expected End: 07/12/25 Disciplines: HOSPITALITY DIRECTOR Outcomes Date/Time User Outcome 06/08/25 1029 Gary Helnay, CCC-HOSPITALITY DIRECTOR Not Progressing Goal: STG: Pt will tolerate ice chip/therapeutic water trials without overt s/s of aspiration with 90% accuracy with min cues and use of compensatory strategies Dates: Start: 06/06/25 Expected End: 07/12/25 Disciplines: HOSPITALITY DIRECTOR Outcomes Date/Time User Outcome 06/14/25 1152 Gary Helo, CCC-HOSPITALITY DIRECTOR Not Progressing 06/12/25 0849 Gary Hernandez, CCC-HOSPITALITY DIRECTOR Progressing Template: ST - Rehab Speech Problem: Auditory Comprehension Dates: Start: 06/06/25 Disciplines: HOSPITALITY DIRECTOR Goal: LTG: Patient will comprehend communication related to basic medical and social needs and utilize compensatory strategies to maintain safety in a functional living environment Dates: Start: 06/06/25 Expected End: 07/12/25 Disciplines: HOSPITALITY DIRECTOR Goal: STG: Patient will complete complex, paragraph level auditory comprehension tasks with 90% accuracy with minimal cueing Dates: Start: 06/06/25 Expected End: 07/12/25 Disciplines: HOSPITALITY DIRECTOR Problem: Cognitive Linguistic Dates: Start: 06/06/25 Disciplines: HOSPITALITY DIRECTOR Goal: LTG: Patient will display functional cognitive-linguistic skills to demonstrate appropriate communication and safety within daily activities in a functional living environment Dates: Start: 06/06/25 Expected End: 07/12/25 Disciplines: HOSPITALITY DIRECTOR Goal: STG: Patient will recall information discussed during therapy session via retelling/answeringquestions with 90% accuracy with minimal cueing Dates: Start: 06/06/25 Expected End: 07/12/25 Disciplines: HOSPITALITY DIRECTOR Problem: High Level Language Dates: Start: 06/06/25 Disciplines: HOSPITALITY DIRECTOR Goal: LTG: Patient will demonstrate use of self-awareness, goal setting, planning, initiation, self-monitoring and problem solving during daily activities to improve safety and awareness in a functional living environment Dates: Start: 06/06/25 Expected End: 07/12/25 Disciplines: HOSPITALITY DIRECTOR Goal: STG: Patient will demonstrate functional problem solving and safety awareness with 90% accuracy in daily living tasks in order to increase safe interactions with environment and decrease assistance from caregivers Dates: Start: 06/06/25 Expected End: 07/12/25 Disciplines: HOSPITALITY DIRECTOR Goal: STG: Patient will complete simple to complex organization, scheduling, planning and reasoningtasks to improve problem solving and safety awareness with 90% accuracy with minimal cueing Dates: Start: 06/06/25 Expected End: 07/12/25 Disciplines: HOSPITALITY DIRECTOR Problem: Verbal Expression Dates: Start: 06/06/25 Disciplines: HOSPITALITY DIRECTOR Goal: LTG: Patient will utilize compensatory strategies to communicate wants and needs effectively to different conversational partners, maintain safety and participate socially in a functional living environment Dates: Start: 06/06/25 Expected End: 07/12/25 Disciplines: HOSPITALITY DIRECTOR Goal: STG: Patient will complete simple to complex divergent and convergent naming tasks with 90% accuracy with minimal cueing to improve thought organization Dates: Start: 06/06/25 Expected End: 07/12/25 Disciplines: HOSPITALITY DIRECTOR Goal: STG: Patient will complete abstract naming tasks with 90% accuracy with minimum cueing to improve narrative expansion and discourse during activities of daily living Dates: Start: 06/06/25 Expected End: 07/12/25 Disciplines: HOSPITALITY DIRECTOR Speech Therapy Care Plan (Resolved) There are no resolved problems. Principal Problem: ICH (intracerebral hemorrhage) ([facility]) * PT/OT/HOSPITALITY DIRECTOR - XANDER Boland - 06/14/2025 11:52 AM [...] Dysphagia Problem: Swallowing Dates: Start: 06/06/25 Disciplines: HOSPITALITY DIRECTOR Goal: LTG: Patient will maintain adequate nutrition/ hydration with optimum safety and efficiency of swallowing function of oral intake without overt signs/symptoms of aspiration for the highest appropriate diet level Dates: Start: 06/06/25 Expected End: 07/12/25 Disciplines: HOSPITALITY DIRECTOR Outcomes Date/Time User Outcome 06/08/25 1029 Gary Hernandez CCC-HOSPITALITY DIRECTOR Not Progressing Goal: STG: Pt will tolerate ice chip/therapeutic water trials without overt s/s of aspiration with 90% accuracy with min cues and use of compensatory strategies Dates: Start: 06/06/25 Expected End: 07/12/25 Disciplines: HOSPITALITY DIRECTOR Outcomes Date/Time User Outcome 06/14/25 1152 Gary Hernandez CCC-HOSPITALITY DIRECTOR Not Progressing 06/12/25 0849 Gary Hernandez CCC-HOSPITALITY DIRECTOR Progressing Template: ST - Rehab Speech Problem: Auditory Comprehension Dates: Start: 06/06/25 Disciplines: HOSPITALITY DIRECTOR Goal: LTG: Patient will comprehend communication related to basic medical and social needs and utilize compensatory strategies to maintain safety in a functional living environment Dates: Start: 06/06/25 Expected End: 07/12/25 Disciplines: HOSPITALITY DIRECTOR Goal: STG: Patient will complete complex, paragraph level auditory comprehension tasks with 90% accuracy with minimal cueing Dates: Start: 06/06/25 Expected End: 07/12/25 Disciplines: HOSPITALITY DIRECTOR Problem: Cognitive Linguistic Dates: Start: 06/06/25 Disciplines: HOSPITALITY DIRECTOR Goal: LTG: Patient will display functional cognitive-linguistic skills to demonstrate appropriate communication and safety within daily activities in a functional living environment Dates: Start: 06/06/25 Expected End: 07/12/25 Disciplines: HOSPITALITY DIRECTOR Goal: STG: Patient will recall information discussed during therapy session via retelling/answeringquestions with 90% accuracy with minimal cueing Dates: Start: 06/06/25 Expected End: 07/12/25 Disciplines: HOSPITALITY DIRECTOR Problem: High Level Language Dates: Start: 06/06/25 Disciplines: HOSPITALITY DIRECTOR Goal: LTG: Patient will demonstrate use of self-awareness, goal setting, planning, initiation, self-monitoring and problem solving during daily activities to improve safety and awareness in a functional living environment Dates: Start: 06/06/25 Expected End: 07/12/25 Disciplines: HOSPITALITY DIRECTOR Goal: STG: Patient will demonstrate functional problem solving and safety awareness with 90% accuracy in daily living tasks in order to increase safe interactions with environment and decrease assistance from caregivers Dates: Start: 06/06/25 Expected End: 07/12/25 Disciplines: HOSPITALITY DIRECTOR Goal: STG: Patient will complete simple to complex organization, scheduling, planning and reasoningtasks to improve problem solving and safety awareness with 90% accuracy with minimal cueing Dates: Start: 06/06/25 Expected End: 07/12/25 Disciplines: HOSPITALITY DIRECTOR Problem: Verbal Expression Dates: Start: 06/06/25 Disciplines: HOSPITALITY DIRECTOR Goal: LTG: Patient will utilize compensatory strategies to communicate wants and needs effectively to different conversational partners, maintain safety and participate socially in a functional living environment Dates: Start: 06/06/25 Expected End: 07/12/25 Disciplines: HOSPITALITY DIRECTOR Goal: STG: Patient will complete simple to complex divergent and convergent naming tasks with 90% accuracy with minimal cueing to improve thought organization Dates: Start: 06/06/25 Expected End: 07/12/25 Disciplines: HOSPITALITY DIRECTOR Goal: STG: Patient will complete abstract naming tasks with 90% accuracy with minimum cueing to improve narrative expansion and discourse during activities of daily living Dates: Start: 06/06/25 Expected End: 07/12/25 Disciplines: HOSPITALITY DIRECTOR Speech Therapy Care Plan (Resolved) There are no resolved problems. Principal Problem: ICH (intracerebral hemorrhage) ([facility]) * Discharge Planning Note - Shawna Corral - 06/14/2025 11:17 AM EDT DISCHARGE PLANNING NOTE Clinical updates sent to [facility]/ [facility], [place], [place] (P# ; F# ) * Discharge [...] Yes List Provided Yes CarePort List Provided [facility] Facility Discussed patient today during rounds. Plan- SNF. Barriers- tele-sitter, IVF, hydration plan, auth. - YUMIKO PLASENCIA 06/14/25 11:09 AM * PT/OT/HOSPITALITY DIRECTOR - Danny Herrera, VERN - 06/14/2025 10:37 AM EDT Physical Therapy [...] RW, telesitter, IV, mayo and bed alarm Telemetry/Radiation Control Worker: Yes Oxygen Used: room air Other: Seizure [...] 1451 Danny Herrera PTA Progressing 06/09/25 1445 [facility] Progressing Goal Note filed on 06/14/25 1025 [...] Outcomes Date/Time User Outcome 06/14/25 1025 Danny Herrera, HOTEL SERVICE SUPERVISOR Progressing 06/12/25 1451 Danny Herrera PTA Progressing [...] Outcomes Date/Time User Outcome 06/14/25 1025 Danny Herrera, HOTEL SERVICE SUPERVISOR Progressing 06/12/25 1451 Danny eHrrera PTA Progressing 06/09/25 1445 Stan Graham PTA Progressing Goal Note filed on 06/14/25 1025 by Danny Herrera PTA Evaluation of progress towards goal: Physical Therapy Care Plan (Resolved) There are no resolved problems. Principal Problem: ICH (intracerebral hemorrhage) ([facility]) Cosigned by Yelitza Jauregui PT at 06/14/2025 12:02 PM EDT Associated attestation - Yelitza Jauregui PT - 06/14/2025 12:02 PM EDT I have reviewed and agree with this note and education documentation for this visit. * PT/OT/HOSPITALITY DIRECTOR - MARU Brown - 06/14/2025 10:37 AM EDT Occupational Therapy [...] little Scoring Daily Activity Raw Score: 11 [facility] G Code Modifier: CL Therapy Plan Need [...] RW, telesitter, IV, mayo and bed alarm Telemetry/Radiation Control Worker: Yes Oxygen Used: room air Pain Assessment [...] OT Outcomes Date/Time User Outcome 06/14/25 1035 BATOOL Brown/Brendon Progressing 06/12/25 1458 Phyllis Kunz, SAMUEL/L Progressing 06/09/25 1503 Sue Yousif-Rawls, PRODUCT OWNER/L Progressing Problem: Bathing LB Dates: Start: 06/07/25 [...] Date/Time User Outcome 06/14/25 1035 Sue Yousif-Rawls, PRODUCT OWNER/L Progressing 06/09/25 1503 Sue Yousif-Rawls, PRODUCT OWNER/L Progressing Problem: Cognition Dates: Start: 06/07/25 Disciplines: OT Goal: Improve cognition Dates: Start: 06/07/25 Expected End: 07/08/25 Description: Follow one step commands 100% of the time Disciplines: OT Outcomes Date/Time User Outcome 06/14/25 1035 Sue Yousif-Rawls, PRODUCT OWNER/L Not Progressing 06/12/25 1458 Phyllis Kunz, SAMUEL/L [...] Date/Time User Outcome 06/14/25 1035 Sue Yousif-Rawls, PRODUCT OWNER/L Progressing 06/12/25 1458 Phyllis Kunz, SAMUEL/L Progressing 06/09/25 1503 Sue Yousif-Rawls, BATOOL/L Progressing Problem: Grooming Dates: Start: 06/07/25 Disciplines: OT Goal: Patient will perform grooming with Minimum Assist Dates: Start: 06/07/25 Expected End: 07/08/25 Description: Goal Description: Disciplines: OT Outcomes Date/Time User Outcome 06/12/25 1458 Phyllis Kunz, SAMUEL/L Progressing 06/09/25 1503 Sue Yousif-Rawls, PRODUCT OWNER/L Progressing Problem: Home Management Dates: Start: 06/07/25 Disciplines: OT Goal: Patient will perform home management with Minimum Assist Dates: Start: 06/07/25 Expected End: 07/08/25 Description: Goal Description: Disciplines: OT Problem: Sitting Balance Dates: Start: 06/07/25 Disciplines: OT Goal: Improve balance to good Dates: Start: 06/07/25 Expected End: 07/08/25 Description: Good dynamic balance, Disciplines: OT Outcomes Date/Time User Outcome 06/14/25 1035 Sue Yousif-Rawls, PRODUCT OWNER/L Progressing 06/12/25 1458 Phyllis Kunz, SAMUEL/L Progressing 06/09/25 1503 Sue Yousif-Rawls, PRODUCT OWNER/L Progressing Problem: Standing Balance Dates: Start: 06/07/25 Disciplines: OT Goal: Improve balance to good Dates: Start: 06/07/25 Expected End: 07/08/25 Description: Good dynamic balance. Disciplines: OT Outcomes Date/Time User Outcome 06/14/25 1035 Sue Yousif-Rawls, PRODUCT OWNER/L Progressing 06/12/25 1458 Phyllis Kunz, SAMUEL/L Progressing 06/09/25 1503 Sue Yousif-Rawls, BATOOL/L Progressing Problem: Strength Dates: Start: 06/07/25 Disciplines: OT Goal: Improve strength Dates: Start: 06/07/25 Expected End: 07/08/25 Description: Improve bilateral upper extremity strength to be able to complete full ADL tasks without rest breaks. Disciplines: OT Outcomes Date/Time User Outcome 06/14/25 1035 Sue Yousif-Rawls, PRODUCT OWNER/L Progressing 06/14/25 1033 Sue Yousif-Rawls, BATOOL/L Progressing 06/12/25 1458 Phyllis Kunz, SAMUEL/L Progressing 06/09/25 1503 Sue Yousif-Rawls, PRODUCT OWNER/L Progressing Problem: Toilet Transfers Dates: Start: 06/07/25 [...] Kunz, SAMUEL/L Progressing 06/09/25 1503 Sue Yousif-Rawls, PRODUCT OWNER/L Progressing Occupational Therapy Care Plan (Resolved) There are no resolved problems. Principal Problem: ICH (intracerebral hemorrhage) ([facility]) Cosigned by Holli Weston OTR/L at 06/14/2025 [...] Description: INTERVENTIONS: 1. Encourage patient or legal sales representative printing supplies to report early pain and ask for [...] per policy 9. Teach patient or legal sales representative printing supplies interventions for comforting Outcome: Progressing Note: Evaluation [...] at the bedside 7. Instruct patient/ patient sales representative printing supplies about use of safety devices 8. Include patient/ patient sales representative printing supplies in decisions related to safety Outcome: Not [...] hygiene technique. 7. Identify and instruct patient/patient sales representative printing supplies in use of appropriate isolation precautionsfor identified infection/symptoms. 8. Provide and discuss with patient/patient sales representative printing supplies on educational MDRO sheet. 9. Encourage and monitor nutritional status daily and consult instructor painting if indicated. 10. Implement neutropenic guidelines as needed. Outcome: Progressing Note: Evaluation of progress towards goal: Patient was assessed and monitored for signs/symptoms ofinfection. Laboratory and diagnostics results were monitored. Vital signs including temperature were monitored. Problem: Knowledge Deficit Goal: Patient/patient sales representative printing supplies demonstrates understanding of disease process, treatment plan,medications, [...] supplement as ordered 13. Collaborate with clinical instructor painting 14. Include patient/ patient's sales representative printing supplies in decisions related to nutrition Outcome: Progressing Note: Evaluation of progress towards goal: Nutritional intake is being assessed and monitored. Patient is currently tolerating their ordered diet. Problem: Moderate - High Risk Fall Score Description: Long Fall Score of =/> 25 or indicated by [facility] Assessment Goal: Patient should be free from fall Description: Interventions: 1. [place] to environment 2. Hourly rounds addressing the [...] non-skid footwear 11. Teach patient and patient sales representative printing supplies to maintain environment for safety and engage [...] (cane, walker) within reach 19. Request patient sales representative printing supplies bring adaptive equipment/mobility aids from home or obtain and provide as needed 20. Consult pharmacy regarding effects of med's affecting mobility, cognition, and alternatives 21. Obtain physician order for PT if risk factors associated with mobility are present 22. Obtain physician order for OT as appropriate 23. Utilize diversional activities 24. Educate patient and patient sales representative printing supplies how to maintain a safe environment during visitationtimes (notify nurse prior to leaving bedside) 25. Consider appropriateness of medical or non-medical review specialist 26. Set up voiding schedule as appropriate [...] injury from restraints (Restraint for Interference with Inventory Control Analyst) Description: INTERVENTIONS: 1. Determine that other, less [...] Free from restraint(s) (Restraint for Interference with Inventory Control Analyst) Description: INTERVENTIONS: 1. ONCE/SHIFT or MINIMUM Q12H: [...] Description: INTERVENTIONS: 1. Encourage patient or legal sales representative printing supplies to report early pain and ask for [...] per policy 9. Teach patient or legal sales representative printing supplies interventions for comforting Outcome: Progressing Note: Evaluation [...] at the bedside 7. Instruct patient/ patient sales representative printing supplies about use of safety devices 8. Include patient/ patient sales representative printing supplies in decisions related to safety Outcome: Progressing [...] Q4 hourneurological checks. Clifford Mix RN * PT/OT/HOSPITALITY DIRECTOR - BATOOL Brown/Brendon - 06/13/2025 1:53 PM EDT Occupational Therapy OT Type of Visit: Medical deferral Reason For Medical Deferral: (pt w/other staff; waited about 10mins; will check back as able) Cosigned by Dixon Murphy OTR/Brendon at 06/13/2025 2:42 PM EDT Associated attestation - Dixon Murphy OTR/Brendon - 06/13/2025 2:42 PM EDT I have reviewed and agree with this note and education documentation for this visit. * PT/OT/HOSPITALITY DIRECTOR - Danny Herrera PTA - 06/13/2025 1:52 PM EDT Physical Therapy PT Type of Visit: (P) Medical deferral Reason For Medical Deferral: (P) (with other staff, will continue per POC as able.) Cosigned by Yelitza Jauregui PT at 06/13/2025 3:05 PM EDT Associated attestation - Yelitza Jauregui, PT - 06/13/2025 3:05 PM EDT I [...] Yes List Provided Yes [facility]Port List Provided [facility] Facility Discussed patient today during rounds. Plan- [...] Description: INTERVENTIONS: 1. Encourage patient or legal sales representative printing supplies to report early pain and ask for [...] per policy 9. Teach patient or legal sales representative printing supplies interventions for comforting Outcome: Progressing Note: Evaluation [...] at the bedside 7. Instruct patient/ patient sales representative printing supplies about use of safety devices 8. Include patient/ patient sales representative printing supplies in decisions related to safety Outcome: Progressing [...] hygiene technique. 7. Identify and instruct patient/patient sales representative printing supplies in use of appropriate isolation precautionsfor identified infection/symptoms. 8. Provide and discuss with patient/patient sales representative printing supplies on educational MDRO sheet. 9. Encourage and monitor nutritional status daily and consult instructor painting if indicated. 10. Implement neutropenic guidelines as needed. Outcome: Progressing Note: Evaluation of progress towards goal: Patient remains afebrile. No signs and symptoms of infection. Problem: Knowledge Deficit Goal: Patient/patient sales representative printing supplies demonstrates understanding of disease process, treatment plan,medications, [...] develop effective communication strategies 4. Include patient/patient sales representative printing supplies in decisions related to communication Outcome: Progressing [...] Collaborate with ancillary departments 14. Include patient/patient sales representative printing supplies in decisions related to anxiety Outcome: Progressing [...] supplement as ordered 13. Collaborate with clinical instructor painting 14. Include patient/ patient's sales representative printing supplies in decisions related to nutrition Outcome: Progressing Note: Evaluation of progress towards goal: modified diet ordered Problem: Moderate - High Risk Fall Score Description: Long Fall Score of =/> 25 or indicated by [facility] Assessment Goal: Patient should be free from fall Description: Interventions: 1. [place] to environment 2. Hourly rounds addressing the [...] non-skid footwear 11. Teach patient and patient sales representative printing supplies to maintain environment for safety and engage [...] (cane, walker) within reach 19. Request patient sales representative printing supplies bring adaptive equipment/mobility aids from home or obtain and provide as needed 20. Consult pharmacy regarding effects of med's affecting mobility, cognition, and alternatives 21. Obtain physician order for PT if risk factors associated with mobility are present 22. Obtain physician order for OT as appropriate 23. Utilize diversional activities 24. Educate patient and patient sales representative printing supplies how to maintain a safe environment during visitationtimes (notify nurse prior to leaving bedside) 25. Consider appropriateness of medical or non-medical review specialist 26. Set up voiding schedule as appropriate [...] providing care 6. Collaborate with pastoral/spiritual care, psychiatric social worker supervisor, mental health counselor as needed. 7. Instruct patient on diversional activities such as physical activity, distraction, and deep breathing exercises to assist with coping 8. Involve patient's sales representative printing supplies in care Outcome: Completed Note: Evaluation of [...] question(s) below. - Dear Dr. Cuenca, A [id number] relationship between diagnoses and underlying causes may not be assumed. Please document the relationship, if any, between the R IPH w intra- ventricular extension and anticoagulant therapy Eliquis -There is a [id number] relationship between the bleeding/hemorrhage and the anticoagulant therapy -The anticoagulant therapy enhanced/contributed to the bleeding/hemorrhage -There is NOT a [id number] relationship between the bleeding and the anticoagulant therapy -Other (Specify) Thank you for your time and assistance, Yoli Woo RN Clinical Documentation Rose Grower Clinical Revenue Cycle E-Mail: [email or web address] The patient's Clinical Indicators include: - H&P 06/04/25: 70 y/o male presented to OSH for eval of AMS. 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 He was on Eliquis due to recent DVT. In ED Kcentra was given for reversal of Eliquis. He was also given Keppra 2 gm and started on Cardene infusion. Transferred to [facility] for R IPH with intra-ventricular extension, likely 2/2 HTN. CDI RESPONSE TEXT: ICH, likely 2/2 HTN and AC use. Query created by: Yoli Woo on 06/08/2025 9:09 AM Electronically signed by: Alphonse Cuenca MD 06/12/2025 6:07 PM * Discharge Planning Note - Chaya Yoder - 06/12/2025 3:47 PM EDT DISCHARGE PLANNING NOTE Referral sent to [facility], [facility] / [facility] (P# ; F# ) [facility]/ [facility], [place] (P# ; F# ) [facility] in [place], [place] (P# ; F# ) * PT/OT/HOSPITALITY DIRECTOR - PARVEEN Boyd - 06/12/2025 3:11 PM [...] Equipment: gait belt, RW, IV pole, mayo Telemetry/Radiation Control Worker: Yes Oxygen Used: 4L Other: Seizure precautions. [...] Phyllis Kunz, SAMUEL/L Progressing 06/09/25 1503 Sue Benja-Rawls, BATOOL/L Progressing Problem: Bathing LB Dates: Start: [...] Date/Time User Outcome 06/09/25 1503 Sue Yousif-Rawls, PRODUCT OWNER/L Progressing Problem: Cognition Dates: Start: 06/07/25 Disciplines: [...] Kunz, SAMUEL/L Progressing 06/09/25 1503 Sue Yousif-Rawls, PRODUCT OWNER/L Progressing Problem: Grooming Dates: Start: 06/07/25 Disciplines: [...] Dickeyperezlois, SAMUEL/L Progressing 06/09/25 1503 Sue Yousif-Rawls, PRODUCT OWNER/L Progressing Problem: Standing Balance Dates: Start: 06/07/25 Disciplines: OT Goal: Improve balance to good Dates: Start: 06/07/25 Expected End: 07/08/25 Description: Good dynamic balance. Disciplines: OT Outcomes Date/Time User Outcome 06/12/25 1458 Phyllis Kunz, SAMUEL/L Progressing 06/09/25 1503 Sue Yousif-Rawls, PRODUCT OWNER/L Progressing Problem: Strength Dates: Start: 06/07/25 Disciplines: OT Goal: Improve strength Dates: Start: 06/07/25 Expected End: 07/08/25 Description: Improve bilateral upper extremity strength to be able to complete full ADL tasks without rest breaks. Disciplines: OT Outcomes Date/Time User Outcome 06/12/25 1458 Phyllis Kunz, SAMUEL/L Progressing 06/09/25 1503 Sue Yousif-Rawls, PRODUCT OWNER/L Progressing Problem: Toilet Transfers Dates: Start: 06/07/25 Disciplines: OT Goal: Patient will perform toilet transfers with Minimum Assist Dates: Start: 06/07/25 Expected End: 07/08/25 Description: Goal Description: Disciplines: OT Problem: Toileting Dates: Start: 06/07/25 Disciplines: OT Goal: Patient will perform toileting with Minimum Assist Dates: Start: 06/07/25 Expected End: 07/08/25 Description: Goal Description: Disciplines: OT Outcomes Date/Time User Outcome 06/09/25 1503 Sue Yousif-Rawls, PRODUCT OWNER/L Not Progressing Problem: Transfers Dates: Start: 06/07/25 Disciplines: OT Goal: Patient will perform transfers with Contact Guard Dates: Start: 06/07/25 Expected End: 07/08/25 Description: Goal Description: Disciplines: OT Outcomes Date/Time User Outcome 06/12/25 1458 Phyllis Kunz, SAMUEL/L Progressing 06/09/25 1503 Sue Yousif-Rawls, PRODUCT OWNER/L Progressing Occupational Therapy Care Plan (Resolved) There are no resolved problems. Principal Problem: ICH (intracerebral hemorrhage) ([facility]) Cosigned by STEPH Gant/Brendon at 06/13/2025 10:21 AM EDT Associated attestation - Dixon Murphy OTR/L - 06/13/2025 10:21 AM EDT I have [...] Yes List Provided Yes [facility]Port List Provided [facility] Facility Discussed patient today during rounds. Plan- SNF. Spoke with patient's and she asked that referrals be sent to [facility], [facility]. Tasked [facility] to send. Floor nurse aware. - YUMIKO PLASENCIA 06/12/25 3:09 PM * PT/OT/HOSPITALITY DIRECTOR - Danny Herrera PTA - 06/12/2025 3:02 PM EDT Physical Therapy [...] Equipment: gait belt, RW IV pole, mayo Telemetry/Radiation Control Worker: Yes Oxygen Used: 4LO2 via NC Other: [...] Outcomes Date/Time User Outcome 06/09/25 1445 Stan Graham, HOTEL SERVICE SUPERVISOR Progressing Problem: Gait Dates: Start: 06/07/25 Disciplines: [...] resolved problems. Principal Problem: ICH (intracerebral hemorrhage) ([facility]) Cosigned by Yelitza Jauregui PT at 06/12/2025 3:14 PM EDT Associated attestation - Yelitza Jauregui PT - 06/12/2025 3:14 PM EDT I have reviewed and agree with this note and education documentation for this visit. * HOSPITALITY DIRECTOR Procedure Note - Gary Hernandez CCC-HOSPITALITY DIRECTOR - 06/12/2025 10:20 AM EDT Speech Therapy Videofluoroscopic Swallow Study Evaluation Discharge Recommendations for Safe Patient Transition HOSPITALITY DIRECTOR Therapy Recommendations: Continue ST services Recommendations Diet [...] PO intake following exam. Prognosis Services: Skilled HOSPITALITY DIRECTOR services to address above deficits Prognosis/Potential: Good [...] Dysphagia Problem: Swallowing Dates: Start: 06/06/25 Disciplines: HOSPITALITY DIRECTOR Goal: LTG: Patient will maintain adequate nutrition/ hydration with optimum safety and efficiency of swallowing function of oral intake without overt signs/symptoms of aspiration for the highest appropriate diet level Dates: Start: 06/06/25 Expected End: 07/12/25 Disciplines: HOSPITALITY DIRECTOR Outcomes Date/Time User Outcome 06/08/25 1029 XANDER Boland Not Progressing Goal: STG: Pt will tolerate ice chip/therapeutic water trials without overt s/s of aspiration with 90% accuracy with min cues and use of compensatory strategies Dates: Start: 06/06/25 Expected End: 07/12/25 Disciplines: HOSPITALITY DIRECTOR Outcomes Date/Time User Outcome 06/12/25 0849 XANDER Boland Progressing Template: ST - Rehab Speech Problem: Auditory Comprehension Dates: Start: 06/06/25 Disciplines: HOSPITALITY DIRECTOR Goal: LTG: Patient will comprehend communication related to basic medical and social needs and utilize compensatory strategies to maintain safety in a functional living environment Dates: Start: 06/06/25 Expected End: 07/12/25 Disciplines: HOSPITALITY DIRECTOR Goal: STG: Patient will complete complex, paragraph level auditory comprehension tasks with 90% accuracy with minimal cueing Dates: Start: 06/06/25 Expected End: 07/12/25 Disciplines: HOSPITALITY DIRECTOR Problem: Cognitive Linguistic Dates: Start: 06/06/25 Disciplines: HOSPITALITY DIRECTOR Goal: LTG: Patient will display functional cognitive-linguistic skills to demonstrate appropriate communication and safety within daily activities in a functional living environment Dates: Start: 06/06/25 Expected End: 07/12/25 Disciplines: HOSPITALITY DIRECTOR Goal: STG: Patient will recall information discussed during therapy session via retelling/answeringquestions with 90% accuracy with minimal cueing Dates: Start: 06/06/25 Expected End: 07/12/25 Disciplines: HOSPITALITY DIRECTOR Problem: High Level Language Dates: Start: 06/06/25 Disciplines: HOSPITALITY DIRECTOR Goal: LTG: Patient will demonstrate use of self-awareness, goal setting, planning, initiation, self-monitoring and problem solving during daily activities to improve safety and awareness in a functional living environment Dates: Start: 06/06/25 Expected End: 07/12/25 Disciplines: HOSPITALITY DIRECTOR Goal: STG: Patient will demonstrate functional problem solving and safety awareness with 90% accuracy in daily living tasks in order to increase safe interactions with environment and decrease assistance from caregivers Dates: Start: 06/06/25 Expected End: 07/12/25 Disciplines: HOSPITALITY DIRECTOR Goal: STG: Patient will complete simple to complex organization, scheduling, planning and reasoningtasks to improve problem solving and safety awareness with 90% accuracy with minimal cueing Dates: Start: 06/06/25 Expected End: 07/12/25 Disciplines: HOSPITALITY DIRECTOR Problem: Verbal Expression Dates: Start: 06/06/25 Disciplines: HOSPITALITY DIRECTOR Goal: LTG: Patient will utilize compensatory strategies to communicate wants and needs effectively to different conversational partners, maintain safety and participate socially in a functional living environment Dates: Start: 06/06/25 Expected End: 07/12/25 Disciplines: HOSPITALITY DIRECTOR Goal: STG: Patient will complete simple to complex divergent and convergent naming tasks with 90% accuracy with minimal cueing to improve thought organization Dates: Start: 06/06/25 Expected End: 07/12/25 Disciplines: HOSPITALITY DIRECTOR Goal: STG: Patient will complete abstract naming tasks with 90% accuracy with minimum cueing to improve narrative expansion and discourse during activities of daily living Dates: Start: 06/06/25 Expected End: 07/12/25 Disciplines: HOSPITALITY DIRECTOR Speech Therapy Care Plan (Resolved) There are no resolved problems. Principal Problem: ICH (intracerebral hemorrhage) ([facility]) * PT/OT/HOSPITALITY DIRECTOR - XANDER Boland - 06/12/2025 8:49 AM [...] Dysphagia Problem: Swallowing Dates: Start: 06/06/25 Disciplines: HOSPITALITY DIRECTOR Goal: LTG: Patient will maintain adequate nutrition/ hydration with optimum safety and efficiency of swallowing function of oral intake without overt signs/symptoms of aspiration for the highest appropriate diet level Dates: Start: 06/06/25 Expected End: 07/12/25 Disciplines: HOSPITALITY DIRECTOR Outcomes Date/Time User Outcome 06/08/25 1029 XANDER Boland Not Progressing Goal: STG: Pt will tolerate ice chip/therapeutic water trials without overt s/s of aspiration with 90% accuracy with min cues and use of compensatory strategies Dates: Start: 06/06/25 Expected End: 07/12/25 Disciplines: HOSPITALITY DIRECTOR Outcomes Date/Time User Outcome 06/12/25 0849 XANDER Boland Progressing Template: ST - Rehab Speech Problem: Auditory Comprehension Dates: Start: 06/06/25 Disciplines: HOSPITALITY DIRECTOR Goal: LTG: Patient will comprehend communication related to basic medical and social needs and utilize compensatory strategies to maintain safety in a functional living environment Dates: Start: 06/06/25 Expected End: 07/12/25 Disciplines: HOSPITALITY DIRECTOR Goal: STG: Patient will complete complex, paragraph level auditory comprehension tasks with 90% accuracy with minimal cueing Dates: Start: 06/06/25 Expected End: 07/12/25 Disciplines: HOSPITALITY DIRECTOR Problem: Cognitive Linguistic Dates: Start: 06/06/25 Disciplines: HOSPITALITY DIRECTOR Goal: LTG: Patient will display functional cognitive-linguistic skills to demonstrate appropriate communication and safety within daily activities in a functional living environment Dates: Start: 06/06/25 Expected End: 07/12/25 Disciplines: HOSPITALITY DIRECTOR Goal: STG: Patient will recall information discussed during therapy session via retelling/answeringquestions with 90% accuracy with minimal cueing Dates: Start: 06/06/25 Expected End: 07/12/25 Disciplines: HOSPITALITY DIRECTOR Problem: High Level Language Dates: Start: 06/06/25 Disciplines: HOSPITALITY DIRECTOR Goal: LTG: Patient will demonstrate use of self-awareness, goal setting, planning, initiation, self-monitoring and problem solving during daily activities to improve safety and awareness in a functional living environment Dates: Start: 06/06/25 Expected End: 07/12/25 Disciplines: HOSPITALITY DIRECTOR Goal: STG: Patient will demonstrate functional problem solving and safety awareness with 90% accuracy in daily living tasks in order to increase safe interactions with environment and decrease assistance from caregivers Dates: Start: 06/06/25 Expected End: 07/12/25 Disciplines: HOSPITALITY DIRECTOR Goal: STG: Patient will complete simple to complex organization, scheduling, planning and reasoningtasks to improve problem solving and safety awareness with 90% accuracy with minimal cueing Dates: Start: 06/06/25 Expected End: 07/12/25 Disciplines: HOSPITALITY DIRECTOR Problem: Verbal Expression Dates: Start: 06/06/25 Disciplines: HOSPITALITY DIRECTOR Goal: LTG: Patient will utilize compensatory strategies to communicate wants and needs effectively to different conversational partners, maintain safety and participate socially in a functional living environment Dates: Start: 06/06/25 Expected End: 07/12/25 Disciplines: HOSPITALITY DIRECTOR Goal: STG: Patient will complete simple to complex divergent and convergent naming tasks with 90% accuracy with minimal cueing to improve thought organization Dates: Start: 06/06/25 Expected End: 07/12/25 Disciplines: HOSPITALITY DIRECTOR Goal: STG: Patient will complete abstract naming tasks with 90% accuracy with minimum cueing to improve narrative expansion and discourse during activities of daily living Dates: Start: 06/06/25 Expected End: 07/12/25 Disciplines: HOSPITALITY DIRECTOR Speech Therapy Care Plan (Resolved) There are no resolved problems. Principal Problem: ICH (intracerebral hemorrhage) ([facility]) * Plan of Care - Shantel Gunn RN - 06/12/2025 5:49 AM EDT Problem: Pain Goal: Patient goal is pain score less than 4, able to rest, and participant in treatment plan as appropriate Description: INTERVENTIONS: 1. Encourage patient or legal sales representative printing supplies to report early pain and ask for [...] per policy 9. Teach patient or legal sales representative printing supplies interventions for comforting Outcome: Progressing Note: Evaluation [...] at the bedside 7. Instruct patient/ patient sales representative printing supplies about use of safety devices 8. Include patient/ patient sales representative printing supplies in decisions related to safety Outcome: Progressing [...] hygiene technique. 7. Identify and instruct patient/patient sales representative printing supplies in use of appropriate isolation precautionsfor identified infection/symptoms. 8. Provide and discuss with patient/patient sales representative printing supplies on educational MDRO sheet. 9. Encourage and monitor nutritional status daily and consult instructor painting if indicated. 10. Implement neutropenic guidelines as needed. Outcome: Progressing Note: Evaluation of progress towards goal: Patient remains free from signs of infection at this time. Will continue to monitor. Problem: Knowledge Deficit Goal: Patient/patient sales representative printing supplies demonstrates understanding of disease process, treatment plan,medications, [...] develop effective communication strategies 4. Include patient/patient sales representative printing supplies in decisions related to communication Outcome: Progressing [...] Collaborate with ancillary departments 14. Include patient/patient sales representative printing supplies in decisions related to anxiety Outcome: Progressing [...] providing care 6. Collaborate with pastoral/spiritual care, psychiatric social worker supervisor, mental health counselor as needed. 7. Instruct patient on diversional activities such as physical activity, distraction, and deep breathing exercises to assist with coping 8. Involve patient's sales representative printing supplies in care Outcome: Progressing Note: Evaluation of [...] supplement as ordered 13. Collaborate with clinical instructor painting 14. Include patient/ patient's sales representative printing supplies in decisions related to nutrition Outcome: Progressing [...] Score of =/> 25 or indicated by [facility] Assessment Goal: Patient should be free from fall Description: Interventions: 1. [place] to environment 2. Hourly rounds addressing the [...] non-skid footwear 11. Teach patient and patient sales representative printing supplies to maintain environment for safety and engage [...] (cane, walker) within reach 19. Request patient sales representative printing supplies bring adaptive equipment/mobility aids from home or obtain and provide as needed 20. Consult pharmacy regarding effects of med's affecting mobility, cognition, and alternatives 21. Obtain physician order for PT if risk factors associated with mobility are present 22. Obtain physician order for OT as appropriate 23. Utilize diversional activities 24. Educate patient and patient sales representative printing supplies how to maintain a safe environment during visitationtimes (notify nurse prior to leaving bedside) 25. Consider appropriateness of medical or non-medical review specialist 26. Set up voiding schedule as appropriate (every 2 hours) Outcome: Progressing Note: Evaluation of progress towards goal: Fall risk assessment preformed and safety measures in place. Education given to family/patient. Will continue to monitor. Problem: Safety - Medical Restraint Goal: Remains free of injury from restraints (Restraint for Interference with Inventory Control Analyst) Description: INTERVENTIONS: 1. Determine that other, less [...] Free from restraint(s) (Restraint for Interference with Inventory Control Analyst) Description: INTERVENTIONS: 1. ONCE/SHIFT or MINIMUM Q12H: [...] on patient's door 9. Provide patient/ patient sales representative printing supplies with isolation education. Outcome: Progressing Note: Evaluation of progress towards goal: Patient remains free from signs of infection at this time. Will continue to monitor. * Plan of Care - Keshawn Alex MD - 06/11/2025 3:53 PM EDT Images from the original note were not included. [facility] [place] VASCULAR MEDICINE 70-year-old man with recent possibly [...] Yes List Provided Yes [facility]Port List Provided [facility] Facility Discussed patient during rounds today. Met with patient's and son Sanket in room and explained role. Patient is sleeping. Patient was admitted for: ICH. Prior to arrival patient lived with son Raghavendra in a 1 story home with 2 stairs to enter into home. Support system: and sons and dtr. Confirmed PCP with patient's : ANDREA Hansen. Confirmed pharmacy with patient's : [facility]. Previous DME at home: none. Previous Home [...] - YUMIKO PLASENCIA 06/11/25 3:40 PM * PT/OT/HOSPITALITY DIRECTOR - Danny Herrera HOTEL SERVICE SUPERVISOR - 06/11/2025 1:33 PM EDT Physical Therapy [...] and education documentation for this visit. * PT/OT/HOSPITALITY DIRECTOR - BATOOL Brown/Brendon - 06/11/2025 1:29 PM EDT Occupational Therapy OT Type of Visit: Medical deferral (pt sleeping soundly, not able to arouse pt) Cosigned by Dixon Murphy OTR/Brendon at 06/11/2025 2:56 PM EDT Associated attestation [...] Description: INTERVENTIONS: 1. Encourage patient or legal sales representative printing supplies to report early pain and ask for [...] per policy 9. Teach patient or legal sales representative printing supplies interventions for comforting Outcome: Progressing Note: Evaluation [...] at the bedside 7. Instruct patient/ patient sales representative printing supplies about use of safety devices 8. Include patient/ patient sales representative printing supplies in decisions related to safety Outcome: Progressing [...] hygiene technique. 7. Identify and instruct patient/patient sales representative printing supplies in use of appropriate isolation precautionsfor identified infection/symptoms. 8. Provide and discuss with patient/patient sales representative printing supplies on educational MDRO sheet. 9. Encourage and monitor nutritional status daily and consult instructor painting if indicated. 10. Implement neutropenic guidelines as needed. Outcome: Progressing Note: Evaluation of progress towards goal: Gianni was assessed for possible risk of infection. After implementation of interventions the patient remains free of signs and symptoms that might indicate infection at this time. Lab testing, temperature, and skin integrity within defined limits. Infection control interventions maintained. Problem: Knowledge Deficit Goal: Patient/patient sales representative printing supplies demonstrates understanding of disease process, treatment plan,medications, [...] maintained to prevent possible impaired skin integrity. Gianni's skin integrity is maintained at this time. [...] supplement as ordered 13. Collaborate with clinical instructor painting 14. Include patient/ patient's sales representative printing supplies in decisions related to nutrition Outcome: Progressing Note: Evaluation of progress towards goal: Interventions implemented and maintained. Assessment findings indicate no evidence of impaired nutrition at this time. Gianni remains on a Tube Feed diet at a goal rate of 65 at this time. Problem: Moderate - High Risk Fall Score Description: Long Fall Score of =/> 25 or indicated by [facility] Assessment Goal: Patient should be free from fall Description: Interventions: 1. [place] to environment 2. Hourly rounds addressing the [...] non-skid footwear 11. Teach patient and patient sales representative printing supplies to maintain environment for safety and engage [...] (cane, walker) within reach 19. Request patient sales representative printing supplies bring adaptive equipment/mobility aids from home or obtain and provide as needed 20. Consult pharmacy regarding effects of med's affecting mobility, cognition, and alternatives 21. Obtain physician order for PT if risk factors associated with mobility are present 22. Obtain physician order for OT as appropriate 23. Utilize diversional activities 24. Educate patient and patient sales representative printing supplies how to maintain a safe environment during visitationtimes (notify nurse prior to leaving bedside) 25. Consider appropriateness of medical or non-medical review specialist 26. Set up voiding schedule as appropriate [...] injury from restraints (Restraint for Interference with Inventory Control Analyst) Description: INTERVENTIONS: 1. Determine that other, less [...] Free from restraint(s) (Restraint for Interference with Inventory Control Analyst) Description: INTERVENTIONS: 1. ONCE/SHIFT or MINIMUM Q12H: [...] PM EDT Problem: Knowledge Deficit Goal: Patient/patient sales representative printing supplies demonstrates understanding of disease process, treatment plan,medications, [...] injury from restraints (Restraint for Interference with Inventory Control Analyst) Description: INTERVENTIONS: 1. Determine that other, less [...] Free from restraint(s) (Restraint for Interference with Inventory Control Analyst) Description: INTERVENTIONS: 1. ONCE/SHIFT or MINIMUM Q12H: [...] Description: INTERVENTIONS: 1. Encourage patient or legal sales representative printing supplies to report early pain and ask for [...] per policy 9. Teach patient or legal sales representative printing supplies interventions for comforting Outcome: Adequate for Discharge * PT/OT/HOSPITALITY DIRECTOR - BATOOL Brown/Brendon - 06/09/2025 3:05 PM [...] Precautions Activity: ok for therapy per GEOFF Young Equipment: gait belt, RW, NG, bilat UE Telemetry/Radiation Control Worker: Yes Oxygen Used: 4L Pain Assessment Pain [...] User Outcome 06/09/25 1503 BATOOL Brown/Brendon Progressing Problem: Bathing LB Dates: Start: 06/07/25 [...] Date/Time User Outcome 06/09/25 1503 Sue Yousif-Rawls, PRODUCT OWNER/L Progressing Problem: Cognition Dates: Start: 06/07/25 Disciplines: [...] Date/Time User Outcome 06/09/25 1503 Sue Yousif-Rawls, PRODUCT OWNER/L Progressing Problem: Grooming Dates: Start: 06/07/25 Disciplines: OT Goal: Patient will perform grooming with Minimum Assist Dates: Start: 06/07/25 Expected End: 07/08/25 Description: Goal Description: Disciplines: OT Outcomes Date/Time User Outcome 06/09/25 1503 Sue Yousif-Rawls, PRODUCT OWNER/L Progressing Problem: Home Management Dates: Start: 06/07/25 [...] Date/Time User Outcome 06/09/25 1503 Sue Yousif-Rawls, PRODUCT OWNER/L Progressing Problem: Strength Dates: Start: 06/07/25 Disciplines: OT Goal: Improve strength Dates: Start: 06/07/25 Expected End: 07/08/25 Description: Improve bilateral upper extremity strength to be able to complete full ADL tasks without rest breaks. Disciplines: OT Outcomes Date/Time User Outcome 06/09/25 1503 Sue Yousif-Rawls, PRODUCT OWNER/L Progressing Problem: Toilet Transfers Dates: Start: 06/07/25 Disciplines: OT Goal: Patient will perform toilet transfers with Minimum Assist Dates: Start: 06/07/25 Expected End: 07/08/25 Description: Goal Description: Disciplines: OT Problem: Toileting Dates: Start: 06/07/25 Disciplines: OT Goal: Patient will perform toileting with Minimum Assist Dates: Start: 06/07/25 Expected End: 07/08/25 Description: Goal Description: Disciplines: OT Outcomes Date/Time User Outcome 06/09/25 1503 Sue Yousif-Rwals, PRODUCT OWNER/L Not Progressing Problem: Transfers Dates: Start: 06/07/25 Disciplines: OT Goal: Patient will perform transfers with Contact Guard Dates: Start: 06/07/25 Expected End: 07/08/25 Description: Goal Description: Disciplines: OT Outcomes Date/Time User Outcome 06/09/25 1503 Sue Yousif-Rawls, PRODUCT OWNER/L Progressing Occupational Therapy Care Plan (Resolved) There are no resolved problems. Principal Problem: ICH (intracerebral hemorrhage) ([facility]) Cosigned by Holli Weston OTR/Brendon at 06/10/2025 6:51 AM EDT Associated attestation - Holli Weston, OTR/L - 06/10/2025 6:51 AM EDT I have reviewed and agree with this note and education documentation for this visit. * PT/OT/HOSPITALITY DIRECTOR - Stanshiva Graham PTA - 06/09/2025 1:50 PM EDT [...] gait belt, RW, NG, IV pole, mayo Telemetry/Radiation Control Worker: Yes Oxygen Used: 4L O2 via NC [...] PT Outcomes Date/Time User Outcome 06/09/25 1445 [facility], [facility] Progressing Problem: Bed Mobility Dates: Start: 06/07/25 Disciplines: PT Goal: Patient will perform bed mobility with Minimum Assist Dates: Start: 06/07/25 Expected End: 06/30/25 Description: Goal Description: Disciplines: PT Outcomes Date/Time User Outcome 06/09/25 1445 [facility], [facility] Progressing Problem: Gait Dates: Start: 06/07/25 Disciplines: PT Goal: Patient will perform gait with Minimum Assist Dates: Start: 06/07/25 Expected End: 06/30/25 Description: 100 feet with RW support for safe mobility Goal Description: Disciplines: PT Outcomes Date/Time User Outcome 06/09/25 1445 [facility], [facility] Progressing Problem: Sitting Balance Dates: Start: 06/07/25 Disciplines: PT Goal: Improve balance to good Dates: Start: 06/07/25 Expected End: 06/30/25 Description: Static Dynamic for safe ADLs and transfers Disciplines: PT Outcomes Date/Time User Outcome 06/09/25 1445 Stanmateo Graham PTA Progressing Problem: Standing Balance Dates: Start: 06/07/25 Disciplines: PT Goal: Improve balance to fair Dates: Start: 06/07/25 Expected End: 06/30/25 Description: Static Dynamic with walker support for safe mobility, decreased fall risk Disciplines: PT Outcomes Date/Time User Outcome 06/09/25 1445 Stan Graham PTA Progressing Problem: Transfers Dates: Start: 06/07/25 Disciplines: PT Goal: Patient will perform transfers with Minimum Assist Dates: Start: 06/07/25 Expected End: 06/30/25 Description: Goal Description: with RW support Disciplines: PT Outcomes Date/Time User Outcome 06/09/25 1445 Stan VERN Graham Progressing Physical Therapy Care Plan (Resolved) There are no resolved problems. Principal Problem: ICH (intracerebral hemorrhage) ([facility]) Cosigned by Kali Hall PT at 06/10/2025 6:49 AM EDT Associated attestation - Kali Hall, PT - 06/10/2025 6:49 AM EDT I have reviewed and agree with this note and education documentation for this visit. * Plan of Care - Shantel Gunn RN - 06/08/2025 7:42 PM EDT Problem: Pain Goal: Patient goal is pain score less than 4, able to rest, and participant in treatment plan as appropriate Description: INTERVENTIONS: 1. Encourage patient or legal sales representative printing supplies to report early pain and ask for [...] per policy 9. Teach patient or legal sales representative printing supplies interventions for comforting Outcome: Progressing Note: Evaluation [...] at the bedside 7. Instruct patient/ patient sales representative printing supplies about use of safety devices 8. Include patient/ patient sales representative printing supplies in decisions related to safety Outcome: Progressing [...] hygiene technique. 7. Identify and instruct patient/patient sales representative printing supplies in use of appropriate isolation precautionsfor identified infection/symptoms. 8. Provide and discuss with patient/patient sales representative printing supplies on educational MDRO sheet. 9. Encourage and monitor nutritional status daily and consult instructor painting if indicated. 10. Implement neutropenic guidelines as needed. Outcome: Progressing Note: Evaluation of progress towards goal: Patient remains free from signs of infection at this time. Will continue to monitor. Problem: Knowledge Deficit Goal: Patient/patient sales representative printing supplies demonstrates understanding of disease process, treatment plan,medications, [...] develop effective communication strategies 4. Include patient/patient sales representative printing supplies in decisions related to communication Outcome: Progressing [...] Collaborate with ancillary departments 14. Include patient/patient sales representative printing supplies in decisions related to anxiety Outcome: Progressing [...] providing care 6. Collaborate with pastoral/spiritual care, psychiatric social worker supervisor, mental health counselor as needed. 7. Instruct patient on diversional activities such as physical activity, distraction, and deep breathing exercises to assist with coping 8. Involve patient's sales representative printing supplies in care Outcome: Progressing Note: Evaluation of [...] supplement as ordered 13. Collaborate with clinical instructor painting 14. Include patient/ patient's sales representative printing supplies in decisions related to nutrition Outcome: Progressing [...] Score of =/> 25 or indicated by [facility] Assessment Goal: Patient should be free from fall Description: Interventions: 1. [place] to environment 2. Hourly rounds addressing the [...] non-skid footwear 11. Teach patient and patient sales representative printing supplies to maintain environment for safety and engage [...] (cane, walker) within reach 19. Request patient sales representative printing supplies bring adaptive equipment/mobility aids from home or obtain and provide as needed 20. Consult pharmacy regarding effects of med's affecting mobility, cognition, and alternatives 21. Obtain physician order for PT if risk factors associated with mobility are present 22. Obtain physician order for OT as appropriate 23. Utilize diversional activities 24. Educate patient and patient sales representative printing supplies how to maintain a safe environment during visitationtimes (notify nurse prior to leaving bedside) 25. Consider appropriateness of medical or non-medical review specialist 26. Set up voiding schedule as appropriate (every 2 hours) Outcome: Progressing Note: Evaluation of progress towards goal: Fall risk assessment preformed and safety measures in place. Education given to family/patient. Will continue to monitor. Problem: Safety - Medical Restraint Goal: Remains free of injury from restraints (Restraint for Interference with Inventory Control Analyst) Description: INTERVENTIONS: 1. Determine that other, less [...] Free from restraint(s) (Restraint for Interference with Inventory Control Analyst) Description: INTERVENTIONS: 1. ONCE/SHIFT or MINIMUM Q12H: [...] on patient's door 9. Provide patient/ patient sales representative printing supplies with isolation education. Outcome: Progressing Note: Evaluation of progress towards goal: Patient remains free from signs of infection at this time. Will continue to monitor. * PT/OT/HOSPITALITY DIRECTOR - Gary Hernandez CCC-HOSPITALITY DIRECTOR - 06/08/2025 10:29 AM EDT Speech Therapy [...] Dysphagia Problem: Swallowing Dates: Start: 06/06/25 Disciplines: HOSPITALITY DIRECTOR Goal: LTG: Patient will maintain adequate nutrition/ hydration with optimum safety and efficiency of swallowing function of oral intake without overt signs/symptoms of aspiration for the highest appropriate diet level Dates: Start: 06/06/25 Expected End: 07/12/25 Disciplines: HOSPITALITY DIRECTOR Outcomes Date/Time User Outcome 06/08/25 1029 Gary Hernandez CCC-HOSPITALITY DIRECTOR Not Progressing Goal: STG: Pt will tolerate ice chip/therapeutic water trials without overt s/s of aspiration with 90% accuracy with min cues and use of compensatory strategies Dates: Start: 06/06/25 Expected End: 07/12/25 Disciplines: HOSPITALITY DIRECTOR Template: ST - Rehab Speech Problem: Auditory Comprehension Dates: Start: 06/06/25 Disciplines: HOSPITALITY DIRECTOR Goal: LTG: Patient will comprehend communication related to basic medical and social needs and utilize compensatory strategies to maintain safety in a functional living environment Dates: Start: 06/06/25 Expected End: 07/12/25 Disciplines: HOSPITALITY DIRECTOR Goal: STG: Patient will complete complex, paragraph level auditory comprehension tasks with 90% accuracy with minimal cueing Dates: Start: 06/06/25 Expected End: 07/12/25 Disciplines: HOSPITALITY DIRECTOR Problem: Cognitive Linguistic Dates: Start: 06/06/25 Disciplines: HOSPITALITY DIRECTOR Goal: LTG: Patient will display functional cognitive-linguistic skills to demonstrate appropriate communication and safety within daily activities in a functional living environment Dates: Start: 06/06/25 Expected End: 07/12/25 Disciplines: HOSPITALITY DIRECTOR Goal: STG: Patient will recall information discussed during therapy session via retelling/answeringquestions with 90% accuracy with minimal cueing Dates: Start: 06/06/25 Expected End: 07/12/25 Disciplines: HOSPITALITY DIRECTOR Problem: High Level Language Dates: Start: 06/06/25 Disciplines: HOSPITALITY DIRECTOR Goal: LTG: Patient will demonstrate use of self-awareness, goal setting, planning, initiation, self-monitoring and problem solving during daily activities to improve safety and awareness in a functional living environment Dates: Start: 06/06/25 Expected End: 07/12/25 Disciplines: HOSPITALITY DIRECTOR Goal: STG: Patient will demonstrate functional problem solving and safety awareness with 90% accuracy in daily living tasks in order to increase safe interactions with environment and decrease assistance from caregivers Dates: Start: 06/06/25 Expected End: 07/12/25 Disciplines: HOSPITALITY DIRECTOR Goal: STG: Patient will complete simple to complex organization, scheduling, planning and reasoningtasks to improve problem solving and safety awareness with 90% accuracy with minimal cueing Dates: Start: 06/06/25 Expected End: 07/12/25 Disciplines: HOSPITALITY DIRECTOR Problem: Verbal Expression Dates: Start: 06/06/25 Disciplines: HOSPITALITY DIRECTOR Goal: LTG: Patient will utilize compensatory strategies to communicate wants and needs effectively to different conversational partners, maintain safety and participate socially in a functional living environment Dates: Start: 06/06/25 Expected End: 07/12/25 Disciplines: HOSPITALITY DIRECTOR Goal: STG: Patient will complete simple to complex divergent and convergent naming tasks with 90% accuracy with minimal cueing to improve thought organization Dates: Start: 06/06/25 Expected End: 07/12/25 Disciplines: HOSPITALITY DIRECTOR Goal: STG: Patient will complete abstract naming tasks with 90% accuracy with minimum cueing to improve narrative expansion and discourse during activities of daily living Dates: Start: 06/06/25 Expected End: 07/12/25 Disciplines: HOSPITALITY DIRECTOR Speech Therapy Care Plan (Resolved) There are no resolved problems. Principal Problem: ICH (intracerebral hemorrhage) ([facility]) * Plan of Care - Lydia Romero [...] in progress with appropriate multidisciplinary teams. * PT/OT/HOSPITALITY DIRECTOR - XANDER Boland - 06/07/2025 2:41 PM EDT Speech Therapy HOSPITALITY DIRECTOR Type of Visit: Medical deferral Remains inappropriate for PO. * PT/OT/HOSPITALITY DIRECTOR - LALA Coulter - 06/07/2025 12:40 PM EDT Occupational Therapy Evaluation Discharge Recommendations for Safe Patient Transition OT Discharge Disposition Recommendation: Post acute - moderate OT Post Acute Moderate Rehab Needs: Recommend moderate intensity rehab, Tolerate 1-2 hrs of therapy3-5 days/wk, Subacute or chronic functional impairment Current Impairments Informing Therapy Recommendation: Ambulation status/safety, Cognition, ADL status, Communication needs, Endurance level, Swallowing Modified [place] Level of Disability: Moderately severe disability 0= [...] lot Scoring Daily Activity Raw Score: 12 [facility] G Code Modifier: CL Occupational Profile Patient is a 70 year old male admitted 06/04 with confusion. Pt up in AM, able to make coffee and then went to bathroom. Son found him 4 hrs later. Imaging - thalamic bleed. Transfer to [facility]. Possiblefall per family previous week. Hx [...] Diagnosis Date Diabetes mellitus type 2, controlled [place] [place] [place] GERD (gastroesophageal reflux disease) Hyperlipidemia Hypertension [place] (intracerebral hemorrhage) [place] [place] 06/04/2025 Osteoarthritis Past Surgical History: Procedure Laterality [...] telemetry, external cath, IV, bilateral hand mitts. 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 ADL / IADL Where Assessed: Chair (patient was up in chair upon writers arrival. Returned to chair at end of session.) Equipment Utilized: (Had NG tube in at start of session. Patient sneezed and NG tube came out. RNSilverio.) Grooming Assistance: Max assist Bathing/Showering Assistance: Max [...] resolved problems. Principal Problem: ICH (intracerebral hemorrhage) ([facility]) * PT/OT/HOSPITALITY DIRECTOR - Yelitza Jauregui, PT - 06/07/2025 11:53 [...] 6 Clicks: Basic Mobility Raw Score: 9 [facility] G Code Modifier: CL SwePASS score = 10/36 Pt is a 70 yo male to ED 06/04 by family with confusion. Pt up in AM, able to make coffee and then went to bathroom. Son found him 4 hrs later. Imaging - thalamic bleed. Transfer to [facility]. Possible fall per family previous week. [...] Diagnosis Date Diabetes mellitus type 2, controlled [place] [place]deep [place]) [place] [place] [place] GERD (gastroesophageal reflux disease) Hyperlipidemia Hypertension [place]intracerebral hemorrhage) [place] [place] 06/04/2025 Osteoarthritis Past Surgical History: Procedure Laterality Date TONSILLECTOMY TOTAL HIP ARTHROPLASTY 06/2010 Modified [place] Level of Disability: Moderately severe disability 0= [...] restraints, B mitts, chair alarm, walker, IV Telemetry/Radiation Control Worker: Yes Oxygen Used: room air Other: Resp rule-out - panel pending; seizure precautions. High fall risk, confusion Pain Assessment Pain Assessment: No/denies pain Home Living Other : Home info not available due to pt confusion and no family present. 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 Hearing / Speech / Vision Hearing: (appears [...] resolved problems. Principal Problem: ICH (intracerebral hemorrhage) ([facility]) * Plan of Care - Jenniffer Mix RN - 06/06/2025 7:50 PM EDT Problem: Pain Goal: Patient goal is pain score less than 4, able to rest, and participant in treatment plan as appropriate Description: INTERVENTIONS: 1. Encourage patient or legal sales representative printing supplies to report early pain and ask for [...] per policy 9. Teach patient or legal sales representative printing supplies interventions for comforting Outcome: Progressing Note: Evaluation [...] at the bedside 7. Instruct patient/ patient sales representative printing supplies about use of safety devices 8. Include patient/ patient sales representative printing supplies in decisions related to safety Outcome: Progressing [...] hygiene technique. 7. Identify and instruct patient/patient sales representative printing supplies in use of appropriate isolation precautionsfor identified infection/symptoms. 8. Provide and discuss with patient/patient sales representative printing supplies on educational MDRO sheet. 9. Encourage and monitor nutritional status daily and consult instructor painting if indicated. 10. Implement neutropenic guidelines as needed. Outcome: Progressing Note: Evaluation of progress towards goal: Labs and vitals monitored as ordered. Medications administered as ordered. Patient remains free from infection at this time. Problem: Knowledge Deficit Goal: Patient/patient sales representative printing supplies demonstrates understanding of disease process, treatment plan,medications, [...] develop effective communication strategies 4. Include patient/patient sales representative printing supplies in decisions related to communication Outcome: Progressing [...] Collaborate with ancillary departments 14. Include patient/patient sales representative printing supplies in decisions related to anxiety Outcome: Progressing [...] providing care 6. Collaborate with pastoral/spiritual care, psychiatric social worker supervisor, mental health counselor as needed. 7. Instruct patient on diversional activities such as physical activity, distraction, and deep breathing exercises to assist with coping 8. Involve patient's sales representative printing supplies in care Outcome: Progressing Note: Evaluation of [...] supplement as ordered 13. Collaborate with clinical instructor painting 14. Include patient/ patient's sales representative printing supplies in decisions related to nutrition Outcome: Progressing [...] Score of =/> 25 or indicated by [facility] Assessment Goal: Patient should be free from fall Description: Interventions: 1. [place] to environment 2. Hourly rounds addressing the [...] non-skid footwear 11. Teach patient and patient sales representative printing supplies to maintain environment for safety and engage [...] (cane, walker) within reach 19. Request patient sales representative printing supplies bring adaptive equipment/mobility aids from home or obtain and provide as needed 20. Consult pharmacy regarding effects of med's affecting mobility, cognition, and alternatives 21. Obtain physician order for PT if risk factors associated with mobility are present 22. Obtain physician order for OT as appropriate 23. Utilize diversional activities 24. Educate patient and patient sales representative printing supplies how to maintain a safe environment during visitationtimes (notify nurse prior to leaving bedside) 25. Consider appropriateness of medical or non-medical review specialist 26. Set up voiding schedule as appropriate (every 2 hours) Outcome: Progressing Note: Evaluation of progress towards goal: Fall risk assessment preformed and safety measures in place. Education given to family/patient. Will continue to monitor. Problem: Safety - Medical Restraint Goal: Remains free of injury from restraints (Restraint for Interference with Inventory Control Analyst) Description: INTERVENTIONS: 1. Determine that other, less [...] Free from restraint(s) (Restraint for Interference with Inventory Control Analyst) Description: INTERVENTIONS: 1. ONCE/SHIFT or MINIMUM Q12H: [...] aware of need at this time. * PT/OT/HOSPITALITY DIRECTOR - Gary Hernandez CCC-HOSPITALITY DIRECTOR - 06/06/2025 9:37 AM EDT Speech Therapy Evaluation Bedside Swallow/Feeding Evaluation Speech & Language Cognitive Evaluation Discharge Recommendations for Safe Patient Transition HOSPITALITY DIRECTOR Therapy Recommendations: Continue ST services Not appropriate [...] decline resulting from ICH. Prognosis Services: Skilled HOSPITALITY DIRECTOR services to address above deficits Discharge Recommendations for Safe PatientTransition HOSPITALITY DIRECTOR Therapy Recommendations: Continue ST services Impressions Receptive [...] complete SLUMS and PHQ2. Prognosis Services: Skilled HOSPITALITY DIRECTOR services to address the above deficits Prognosis/Potential: [...] Dysphagia Problem: Swallowing Dates: Start: 06/06/25 Disciplines: HOSPITALITY DIRECTOR Goal: LTG: Patient will maintain adequate nutrition/ hydration with optimum safety and efficiency of swallowing function of oral intake without overt signs/symptoms of aspiration for the highest appropriate diet level Dates: Start: 06/06/25 Expected End: 07/12/25 Disciplines: HOSPITALITY DIRECTOR Goal: STG: Pt will tolerate ice chip/therapeutic water trials without overt s/s of aspiration with 90% accuracy with min cues and use of compensatory strategies Dates: Start: 06/06/25 Expected End: 07/12/25 Disciplines: HOSPITALITY DIRECTOR Template: ST - Rehab Speech Problem: Auditory Comprehension Dates: Start: 06/06/25 Disciplines: HOSPITALITY DIRECTOR Goal: LTG: Patient will comprehend communication related to basic medical and social needs and utilize compensatory strategies to maintain safety in a functional living environment Dates: Start: 06/06/25 Expected End: 07/12/25 Disciplines: HOSPITALITY DIRECTOR Goal: STG: Patient will complete complex, paragraph level auditory comprehension tasks with 90% accuracy with minimal cueing Dates: Start: 06/06/25 Expected End: 07/12/25 Disciplines: HOSPITALITY DIRECTOR Problem: Cognitive Linguistic Dates: Start: 06/06/25 Disciplines: HOSPITALITY DIRECTOR Goal: LTG: Patient will display functional cognitive-linguistic skills to demonstrate appropriate communication and safety within daily activities in a functional living environment Dates: Start: 06/06/25 Expected End: 07/12/25 Disciplines: HOSPITALITY DIRECTOR Goal: STG: Patient will recall information discussed during therapy session via retelling/answeringquestions with 90% accuracy with minimal cueing Dates: Start: 06/06/25 Expected End: 07/12/25 Disciplines: HOSPITALITY DIRECTOR Problem: High Level Language Dates: Start: 06/06/25 Disciplines: HOSPITALITY DIRECTOR Goal: LTG: Patient will demonstrate use of self-awareness, goal setting, planning, initiation, self-monitoring and problem solving during daily activities to improve safety and awareness in a functional living environment Dates: Start: 06/06/25 Expected End: 07/12/25 Disciplines: HOSPITALITY DIRECTOR Goal: STG: Patient will demonstrate functional problem solving and safety awareness with 90% accuracy in daily living tasks in order to increase safe interactions with environment and decrease assistance from caregivers Dates: Start: 06/06/25 Expected End: 07/12/25 Disciplines: HOSPITALITY DIRECTOR Goal: STG: Patient will complete simple to complex organization, scheduling, planning and reasoningtasks to improve problem solving and safety awareness with 90% accuracy with minimal cueing Dates: Start: 06/06/25 Expected End: 07/12/25 Disciplines: HOSPITALITY DIRECTOR Problem: Verbal Expression Dates: Start: 06/06/25 Disciplines: HOSPITALITY DIRECTOR Goal: LTG: Patient will utilize compensatory strategies to communicate wants and needs effectively to different conversational partners, maintain safety and participate socially in a functional living environment Dates: Start: 06/06/25 Expected End: 07/12/25 Disciplines: HOSPITALITY DIRECTOR Goal: STG: Patient will complete simple to complex divergent and convergent naming tasks with 90% accuracy with minimal cueing to improve thought organization Dates: Start: 06/06/25 Expected End: 07/12/25 Disciplines: HOSPITALITY DIRECTOR Goal: STG: Patient will complete abstract naming tasks with 90% accuracy with minimum cueing to improve narrative expansion and discourse during activities of daily living Dates: Start: 06/06/25 Expected End: 07/12/25 Disciplines: HOSPITALITY DIRECTOR Speech Therapy Care Plan (Resolved) There are no resolved problems. Principal Problem: ICH (intracerebral hemorrhage) ([facility]) * Plan of Care - Jenniffer Mix RN - 06/05/2025 7:12 PM EDT Problem: Pain Goal: Patient goal is pain score less than 4, able to rest, and participant in treatment plan as appropriate Description: INTERVENTIONS: 1. Encourage patient or legal sales representative printing supplies to report early pain and ask for [...] per policy 9. Teach patient or legal sales representative printing supplies interventions for comforting Outcome: Progressing Note: Evaluation [...] at the bedside 7. Instruct patient/ patient sales representative printing supplies about use of safety devices 8. Include patient/ patient sales representative printing supplies in decisions related to safety Outcome: Progressing [...] hygiene technique. 7. Identify and instruct patient/patient sales representative printing supplies in use of appropriate isolation precautionsfor identified infection/symptoms. 8. Provide and discuss with patient/patient sales representative printing supplies on educational MDRO sheet. 9. Encourage and monitor nutritional status daily and consult instructor painting if indicated. 10. Implement neutropenic guidelines as needed. Outcome: Progressing Note: Evaluation of progress towards goal: Labs and vitals monitored as ordered. Medications administered as ordered. Patient remains free from infection at this time. Problem: Knowledge Deficit Goal: Patient/patient sales representative printing supplies demonstrates understanding of disease process, treatment plan,medications, [...] develop effective communication strategies 4. Include patient/patient sales representative printing supplies in decisions related to communication Outcome: Progressing [...] Collaborate with ancillary departments 14. Include patient/patient sales representative printing supplies in decisions related to anxiety Outcome: Progressing [...] providing care 6. Collaborate with pastoral/spiritual care, psychiatric social worker supervisor, mental health counselor as needed. 7. Instruct patient on diversional activities such as physical activity, distraction, and deep breathing exercises to assist with coping 8. Involve patient's sales representative printing supplies in care Outcome: Progressing Note: Evaluation of [...] supplement as ordered 13. Collaborate with clinical instructor painting 14. Include patient/ patient's sales representative printing supplies in decisions related to nutrition Outcome: Progressing [...] Score of =/> 25 or indicated by [facility] Assessment Goal: Patient should be free from fall Description: Interventions: 1. [place] to environment 2. Hourly rounds addressing the [...] non-skid footwear 11. Teach patient and patient sales representative printing supplies to maintain environment for safety and engage [...] (cane, walker) within reach 19. Request patient sales representative printing supplies bring adaptive equipment/mobility aids from home or obtain and provide as needed 20. Consult pharmacy regarding effects of med's affecting mobility, cognition, and alternatives 21. Obtain physician order for PT if risk factors associated with mobility are present 22. Obtain physician order for OT as appropriate 23. Utilize diversional activities 24. Educate patient and patient sales representative printing supplies how to maintain a safe environment during visitationtimes (notify nurse prior to leaving bedside) 25. Consider appropriateness of medical or non-medical review specialist 26. Set up voiding schedule as appropriate (every 2 hours) Outcome: Progressing Note: Evaluation of progress towards goal: Fall risk assessment preformed and safety measures in place. Education given to family/patient. Will continue to monitor. Problem: Safety - Medical Restraint Goal: Remains free of injury from restraints (Restraint for Interference with Inventory Control Analyst) Description: INTERVENTIONS: 1. Determine that other, less [...] Free from restraint(s) (Restraint for Interference with Inventory Control Analyst) Description: INTERVENTIONS: 1. ONCE/SHIFT or MINIMUM Q12H: [...] aware of need at this time. * PT/OT/HOSPITALITY DIRECTOR - XANDER Patel - 06/05/2025 9:49 AM EDT Speech Therapy HOSPITALITY DIRECTOR Type of Visit: Medical deferral Reasons for Medical Deferral: Other (see comments) Per RN, pt too tired/lethargic for ST eval at this time. * PT/OT/HOSPITALITY DIRECTOR - Juan Kim PT - 06/05/2025 8:18 AM EDT Physical Therapy PT Type of Visit: Medical deferral Reason For Medical Deferral: RN deems inappropriate (hold per morning rounds, will see pt as able) Activity Limitations: Strict bedrest * PT/OT/HOSPITALITY DIRECTOR - STEPH Gant/Brendon - 06/05/2025 7:42 AM EDT Occupational Therapy [...] Description: INTERVENTIONS: 1. Encourage patient or legal sales representative printing supplies to report early pain and ask for [...] per policy 9. Teach patient or legal sales representative printing supplies interventions for comforting Outcome: Progressing Note: Evaluation [...] at the bedside 7. Instruct patient/ patient sales representative printing supplies about use of safety devices 8. Include patient/ patient sales representative printing supplies in decisions related to safety Outcome: Progressing [...] hygiene technique. 7. Identify and instruct patient/patient sales representative printing supplies in use of appropriate isolation precautionsfor identified infection/symptoms. 8. Provide and discuss with patient/patient sales representative printing supplies on educational MDRO sheet. 9. Encourage and monitor nutritional status daily and consult instructor painting if indicated. 10. Implement neutropenic guidelines as needed. Outcome: Progressing Note: Evaluation of progress towards goal: Labs and vitals monitored as ordered. Medications administered as ordered. Patient remains free from infection at this time. Problem: Knowledge Deficit Goal: Patient/patient sales representative printing supplies demonstrates understanding of disease process, treatment plan,medications, [...] develop effective communication strategies 4. Include patient/patient sales representative printing supplies in decisions related to communication Outcome: Progressing [...] Collaborate with ancillary departments 14. Include patient/patient sales representative printing supplies in decisions related to anxiety Outcome: Progressing [...] providing care 6. Collaborate with pastoral/spiritual care, psychiatric social worker supervisor, mental health counselor as needed. 7. Instruct patient on diversional activities such as physical activity, distraction, and deep breathing exercises to assist with coping 8. Involve patient's sales representative printing supplies in care Outcome: Progressing Note: Evaluation of [...] supplement as ordered 13. Collaborate with clinical instructor painting 14. Include patient/ patient's sales representative printing supplies in decisions related to nutrition Outcome: Progressing [...] Score of =/> 25 or indicated by [facility] Assessment Goal: Patient should be free from fall Description: Interventions: 1. [place] to environment 2. Hourly rounds addressing the [...] non-skid footwear 11. Teach patient and patient sales representative printing supplies to maintain environment for safety and engage [...] (cane, walker) within reach 19. Request patient sales representative printing supplies bring adaptive equipment/mobility aids from home or obtain and provide as needed 20. Consult pharmacy regarding effects of med's affecting mobility, cognition, and alternatives 21. Obtain physician order for PT if risk factors associated with mobility are present 22. Obtain physician order for OT as appropriate 23. Utilize diversional activities 24. Educate patient and patient sales representative printing supplies how to maintain a safe environment during visitationtimes (notify nurse prior to leaving bedside) 25. Consider appropriateness of medical or non-medical review specialist 26. Set up voiding schedule as appropriate (every 2 hours) Outcome: Progressing Note: Evaluation of progress towards goal: Fall risk assessment preformed and safety measures in place. Education given to family/patient. Will continue to monitor. Problem: Safety - Medical Restraint Goal: Remains free of injury from restraints (Restraint for Interference with Inventory Control Analyst) Description: INTERVENTIONS: 1. Determine that other, less [...] Free from restraint(s) (Restraint for Interference with Inventory Control Analyst) Description: INTERVENTIONS: 1. ONCE/SHIFT or MINIMUM Q12H: [...] Plan of Treatment DateTypeDepartmentCare Team (Latest Contact Info)Kumlcgzyocn63/06/2025 9:00 AM ESTOffice Visit [facility] [place] [place] [address] Marion Martines, CONSTRUCTION FOREMAN-GAME PROTECTOR NITA SAM [address] [address] 07/18/2025 3:30 PM ESTOffice Visit [facility] Department of [address] [place] [id number] Yani Moses MD [address] [place] [address] [address] [place], [place] [id number] NameTypePriorityAssociated DiagnosesDate/TimeDISCONTINUE IN PROCESS EEG TESTING YlibmbgupXoglwur35/15/2025 10:38 AM EDTNameTypePriorityAssociated DiagnosesOrder ScheduleDISCONTINUE IN PROCESS [...] TypeAssociated ProblemsRecent ProgressPatient-Stated?Author <enter goal here> Jodi Rivera, YUMIKO Note: Evaluation of progress towards goal: SNF documented as of this encounter Procedures Procedure NamePriorityDate/TimeAssociated DiagnosisCommentsBEDSIDE GLUCOSE Gvbhzjl9206/22/2025 4:05 PM EDT BEDSIDE MHGNHFATvjzocf97/31/2025 11:32 AM EDT BEDSIDE EZWLFUCZuowezq53/31/2025 8:29 AM EDT CBC WITH AUTO TQTPVUNKUCLQKirxvzn93/31/2025 8:00 AM EDT VTCJEPVLEMQjwwykz22/31/2025 8:00 AM EDT SYEGTFMLGYzntpsb09/31/2025 8:00 AM EDT IONIZED ITZABKVLexviid27/31/2025 8:00 AM EDT COMPREHENSIVE METABOLIC MRXFURfpoula91/31/2025 8:00 AM EDT BEDSIDE OWXOWOBSqnaaar65/30/2025 9:22 PM EDT BEDSIDE JXVGDCIYgqjfig36/30/2025 4:[address] BRAIN WO GPBLTQRI05/30/2025 2:07 PM EDT VASC VENOUS DUPLEX LOWER EWREFRJLUFcdfwwu06/30/2025 1:26 PM EDT BEDSIDE RFXMQDXPwqkfdz45/30/2025 11:54 AM EDT BEDSIDE IRHNOKXCzikrzu13/30/2025 7:44 AM EDT CBC WITH AUTO PAOIFWEFBGXOKrdrxmg58/30/2025 6:10 AM EDT EMPAFMHCJCWllfmnh04/30/2025 6:10 AM EDT OXFGZKIPSEwrbkah39/30/2025 6:10 AM EDT IONIZED CTLFVBCWobbsdb08/30/2025 6:10 AM EDT COMPREHENSIVE METABOLIC CXDPFQdzeqmb70/30/2025 6:10 AM EDT BEDSIDE FZABMPFVbdyhoq72/29/2025 9:24 PM EDT BEDSIDE QTGDBWUYjcjkng37/29/2025 3:37 PM EDT BEDSIDE SGPSJMDNyrmmia06/29/2025 11:52 AM EDT BEDSIDE ULDKZFIJyqnbuz10/29/2025 7:21 AM EDT CBC WITH AUTO NZECGWXUYKECPyzlprg62/29/2025 6:11 AM EDT SFYDZTNPLUQbuoppz53/29/2025 6:11 AM EDT IFLANPYELYakrdzu97/29/2025 6:11 AM EDT IONIZED QFKVFGOByspsqe09/29/2025 6:11 AM EDT COMPREHENSIVE METABOLIC MHLNLBjchqyv47/29/2025 6:11 AM EDT BEDSIDE EUZAJEBBiirlyj61/28/2025 9:05 PM EDT BEDSIDE FHFHULBUiwkztv76/28/2025 12:09 PM EDT BEDSIDE MGYUZKKAoabqed28/28/2025 7:19 AM EDT CBC WITH AUTO ORUIHNKRJPAYUbrhrld58/28/2025 6:01 AM EDT UTXHQNCKAMHlpohoy27/28/2025 6:01 AM EDT GYQPWUXJXWbjnbiu92/28/2025 6:01 AM EDT IONIZED CJJBGJAHammrko27/28/2025 6:01 AM EDT COMPREHENSIVE METABOLIC ENLUARgscton40/28/2025 6:01 AM EDT BEDSIDE ORSQOXNTjsedlq84/27/2025 9:48 PM EDT BEDSIDE APHZDIQRktotpp91/27/2025 4:25 PM EDT BEDSIDE MGZIFKQYljputc28/27/2025 11:29 AM EDT BEDSIDE CIWTRWDAtlsinf46/27/2025 7:50 AM EDT CBC WITH AUTO CJNOGLHGFYELHrwmaov05/27/2025 5:55 AM EDT ZQYYNBTDAXXznmxyd67/27/2025 5:55 AM EDT HXWRSMDMGVdpcsao04/27/2025 5:55 AM EDT IONIZED QNQWLLDVynjtbo02/27/2025 5:55 AM EDT COMPREHENSIVE METABOLIC BAIASAyntpnp42/27/2025 5:55 AM EDT BEDSIDE BUGYTVZUvqdszn26/26/2025 9:11 PM EDT BEDSIDE HSTTTYWCuijtxd74/26/2025 4:05 PM EDT XR CHEST 1 FSNresmxq99/26/2025 2:34 PM EDT MHBWULHUXHOzafyuz11/26/2025 2:14 PM EDT URINE JWWXXWRCtyzmpj91/26/2025 1:48 PM EDT BLOOD PFLWNGPLEPQ07/26/2025 1:20 PM EDT BLOOD XZQIAWUREFD24/26/2025 1:20 PM EDT BEDSIDE DKHIMEXCxjdiem73/26/2025 11:24 AM EDT BEDSIDE JMYOINDOfxjruf94/26/2025 7:44 AM EDT CBC WITH AUTO WOGXDEVWVXQHOvsczvu03/26/2025 6:08 AM EDT JVTJOANQTDWkbwbwu79/26/2025 6:08 AM EDT BPEBKCISXLbwqgsm82/26/2025 6:08 AM EDT IONIZED GGXPSGMSucusmm50/26/2025 6:08 AM EDT COMPREHENSIVE METABOLIC IOFKVCisuuvu04/26/2025 6:08 AM EDT BEDSIDE VZSOEOTObimlnw21/25/2025 9:06 PM EDT BEDSIDE PYRFBYKWiizqic31/25/2025 3:58 PM EDT BEDSIDE XFUGLXSYlwdmsn77/25/2025 12:36 PM EDT BEDSIDE CWDPVQHSgxztcv00/25/2025 7:55 AM EDT CBC WITH AUTO BNWVFVULNKLKZukxbgo34/25/2025 5:48 AM EDT DIJDNNNTDOJytvnkn61/25/2025 5:48 AM EDT BQGJYBNNRSvehvsn69/25/2025 5:48 AM EDT IONIZED SPOBMWJDwlvcny40/25/2025 5:48 AM EDT COMPREHENSIVE METABOLIC XTPHPAxwciql37/25/2025 5:48 AM EDT BEDSIDE UFORPWOXabmbqr94/24/2025 8:58 PM EDT SLYQQSQkdxdoe56/24/2025 5:52 PM EDT LYTMHPGHPXQWN65/24/2025 5:52 PM EDT BEDSIDE AGRBNWNSdnujwq04/24/2025 4:04 PM EDT VASC VENOUS DUPLEX LOWER MHQBUPEARMzrmhwf88/24/2025 3:37 PM EDT BEDSIDE FZBQOOAHgmfvdg21/24/2025 12:48 PM EDT NM RENOGRAM WITH VLUJMDyqpbwp14/24/2025 12:38 PM EDT BEDSIDE YABJILUQaqhvkt23/24/2025 7:59 AM EDT CBC WITH AUTO EUODWSXZWAPRYdztoqp15/24/2025 6:59 AM EDT KIYYGAGZNAHljedbg66/24/2025 6:59 AM EDT TGAMPMOPVOuhxdsf80/24/2025 6:59 AM EDT IONIZED BNIRCTJBssugej53/24/2025 6:59 AM EDT COMPREHENSIVE METABOLIC MVXLNZqknjdu98/24/2025 6:59 AM EDT BEDSIDE WKMPMDQZbvtvtz44/23/2025 9:02 PM EDT BEDSIDE ZYPJAXBGtknxcb07/23/2025 4:32 PM EDT FL SWALLOW MOTILITY FVHJLVNSVlgnlkp28/23/2025 2:24 PM EDT BEDSIDE RXEVHPIKqpivnv44/23/2025 11:45 AM EDT BEDSIDE IOWQBHHAifnsrt98/23/2025 9:02 AM EDT CBC WITH AUTO PZFBWQLQPYPFOyctdwu42/23/2025 6:25 AM EDT AECQHRMISAImftrff90/23/2025 6:25 AM EDT GAYCTGKRTZbmehiu39/23/2025 6:25 AM EDT IONIZED GCGOKLEJjhegjd56/23/2025 6:25 AM EDT COMPREHENSIVE METABOLIC AKXJDHktdfur40/23/2025 6:25 AM EDT BEDSIDE FSDPVJOMduuluc75/22/2025 8:57 PM EDT BEDSIDE VITDJXIQyhtevt33/22/2025 5:17 PM EDT BEDSIDE MIGJMZSRrtnpea80/22/2025 12:51 PM EDT VASC RENAL ARTERY DUPLEX OKGTZHSYEyqpsye08/22/2025 12:20 PM EDT BEDSIDE JXILIIGSvieotd36/22/2025 8:14 AM EDT CBC WITH AUTO ZCXCSBTYLQCDMudabtu04/22/2025 5:58 AM EDT NWXIOGJKFXAxrrvdv57/22/2025 5:58 AM EDT XZRYXFECJQdjroff48/22/2025 5:58 AM EDT IONIZED WUCKNLRAmzqjrb00/22/2025 5:58 AM EDT COMPREHENSIVE METABOLIC CWMEXDfquvqr29/22/2025 5:58 AM EDT BEDSIDE EOGTSJULukmgsp98/21/2025 9:49 PM EDT BEDSIDE PDESQOOEnctduh27/21/2025 5:14 PM EDT BEDSIDE MWZIIKSZskzavg04/21/2025 10:57 AM EDT FL SWALLOW MOTILITY SPLWLEYHUbmtrwe97/21/2025 10:10 AM EDT BEDSIDE VMSKXGSJcqgffj35/21/2025 9:09 AM EDT BEDSIDE TMYRJFIEhtidsg86/21/2025 6:27 AM EDT XR ABD NG TUBE PLACEMENT 1 RDNSRgwepzz86/21/2025 4:43 AM EDT CBC WITH AUTO BORVEPOHEZCDXwzhpvz38/21/2025 4:24 AM EDT UQERSAWGNXUxpgzxx71/21/2025 4:24 AM EDT B-TYPE NATRIURETIC WTGLJCIMuogwgq55/21/2025 4:24 AM EDT FYBHWTSGWXvlsdzy54/21/2025 4:24 AM EDT IONIZED PJDAICKRbvwzfp93/21/2025 4:24 AM EDT COMPREHENSIVE METABOLIC OGDSWUpkkgfz48/21/2025 4:24 AM EDT BEDSIDE ZDZERDXMbbeqru81/21/2025 4:18 AM EDT BEDSIDE ANKRWOUEglaqbg42/20/2025 11:29 PM EDT BEDSIDE AKNGAAZAtzytha30/20/2025 7:38 PM EDT BEDSIDE VEIHKMPKdshmya35/20/2025 3:14 PM EDT IONIZED UKKHLMPMORfhtckw33/20/2025 1:10 PM EDT BEDSIDE ZJPWCDJUovvoza37/20/2025 12:26 PM EDT CLINICAL PATHOLOGY BWGUBUKerxkay43/20/2025 11:31 AM EDT BEDSIDE NMLKNTHKrrhpcs81/20/2025 8:[address] BRAIN WO EPVZHulnmzi63/20/2025 6:40 AM EDT XR CHEST 1 QVWzekcnr60/20/2025 3:47 AM EDT CBC WITH AUTO HBLGYRAJBFFHXsiewmo04/20/2025 3:05 AM EDT RPEVIVPMZHMmqaipc16/20/2025 3:05 AM EDT B-TYPE NATRIURETIC JHDDXUGIqgyujs34/20/2025 3:05 AM EDT IYAMQZOJQKtfuiue52/20/2025 3:05 AM EDT IONIZED DLCGVCNTeyswhx45/20/2025 3:05 AM EDT COMPREHENSIVE METABOLIC QDLWTDcgkeat24/20/2025 3:05 AM EDT TROP I, HIGH SENSITIVITY 1 WZRTXATH47/19/2025 3:33 AM EDT TROPONIN I, HIGH SENSITIVITY 0 TWVUVCUO05/19/2025 2:52 AM EDT TROPONIN I, HIGH SENSITIVITY 0 LKZEKSXD77/19/2025 2:52 AM EDT CBC WITH AUTO VVJEVYVHICKNXmkhdmi53/19/2025 2:52 AM EDT HSKBVAGFMKXijucrr60/19/2025 2:52 AM EDT B-TYPE NATRIURETIC XUZUMSKFgyijly67/19/2025 2:52 AM EDT BXVAXTCGTXxhmywg63/19/2025 2:52 AM EDT IONIZED OUWNQBXXpgeqou87/19/2025 2:52 AM EDT COMPREHENSIVE METABOLIC BMOMYIoqtlcb14/19/2025 2:52 AM EDT ECG 12-NQUMJaiszpx27/19/2025 1:28 AM EDT XR CHEST 1 MATggekhg10/18/2025 11:46 AM EDT XR ABD NG TUBE PLACEMENT 1 GZZCXduwvnq38/18/2025 4:52 AM EDT CBC WITH AUTO OCHAGVFIJOEDLtsyzul51/18/2025 3:16 AM EDT COMPREHENSIVE METABOLIC RPZRLGuptrdb66/18/2025 3:16 AM EDT VASC VENOUS DUPLEX LOWER OHNISMMMERykzyos04/17/2025 5:51 PM EDT ECHO COMPLETE W NKPNKVMLXjuiyga08/17/2025 2:02 PM EDT XR ABD NG TUBE PLACEMENT 1 TGPHXMYM67/17/2025 12:44 PM EDT CBC WITH AUTO GHAFIRBJCYTOLoqkkha04/17/2025 2:49 AM EDT CK VAVTOOzoyvfz48/17/2025 2:49 AM EDT COMPREHENSIVE METABOLIC ZRXWDJugxzpt06/17/2025 2:49 AM EDT XR ABD NG TUBE PLACEMENT 1 VTQJXJHD41/17/2025 2:38 AM EDT CGSBTBVSJILeplaqu04/16/2025 10:47 PM EDT EXTRA TUBES PST ZJESwdhdnk76/16/2025 8:02 PM EDT EXTRA FJQQAMekwxrp08/16/2025 8:02 PM EDT DILUTE SAMIA'S VIPER VENOM AAHBNXLBXSTUEelujxh52/16/2025 8:00 PM EDT CYTOPLASMIC NEUTROPHILIC AB (ANCA), RYmtbupe45/16/2025 8:00 PM EDT ANTI CARDIOLIPIN AB IGG IGA UINTywlxro67/16/2025 8:00 PM EDT GLOMERULAR BASEMENT MEMBRANE IGG RQWvhczlj31/16/2025 8:00 PM EDT COMPLEMENT PROFILE (C3 AND C4)Ilysiqj9806/07/2025 8:00 PM EDT HEMOGLOBIN AND HEMATOCRIT, BLOODAdd-On06/07/2025 8:00 PM EDT HEPATITIS PANEL, MAOGLNqqdjki37/16/2025 8:00 PM EDT KIPCWRsiyvbr94/16/2025 8:00 PM EDT IMMUNOELECTROPHORESIS FOR THERAPY WWWGXNHOBJCniurng59/16/2025 8:00 PM EDT PROTEIN ELECTROPHORESIS, GCKUUPzgetev24/16/2025 8:00 PM EDT HEMOGLOBIN L9QBobnpbw99/16/2025 8:00 PM EDT US RETROPERITONEAL COMPLETE WITH HNSERLSrfninn01/16/2025 7:22 PM EDT PROTEIN CREAT TJFOVSuvsofu95/16/2025 4:21 PM EDT URINE CREATININE,QCQYWZGubqtvh57/16/2025 4:21 PM EDT MICROALBUMIN / CREATININE URINE YJGRECavruab98/16/2025 4:21 PM EDT SODIUM, URINE, MRBEKXIimfyco23/16/2025 4:21 PM EDT SGCNLNAEVRNviowra15/16/2025 4:21 PM EDT XR ABD NG TUBE PLACEMENT 1 AYPMMOQK54/16/2025 2:28 PM EDT LEVETIRACETAM, ZCpuktfc89/16/2025 12:27 PM EDT HIV 1&2 AB/AG SCREEN (P24 AG)Add-On06/07/2025 12:27 PM EDT IRON AND TIBCAdd-On06/07/2025 12:27 PM EDT DOUBLE STRANDED DNA ABAdd-On06/07/2025 12:27 PM EDT BETA-2 GLYCOPROTEIN ANTIBODIESAdd-On06/07/2025 12:27 PM EDT RHEUMATOID FACTORAdd-On06/07/2025 12:27 PM EDT LUIZA SCREEN W/ REFLEXAdd-On06/07/2025 12:27 PM EDT JDIYBGRXDOuatywv71/16/2025 12:27 PM EDT FOLATEAdd-On06/07/2025 12:27 PM EDT FERRITINAdd-On06/07/2025 12:27 PM EDT VITAMIN I50Egw-Cm62/16/2025 12:27 PM EDT RESP PATHOGENS PANEL/GHEN-TSE-4Fbaofhl61/16/2025 11:11 AM EDT XR CHEST 1 KFMnxctgt05/16/2025 9:54 AM EDT CBC WITH AUTO XIDTFABCKYBVHaqdtlb65/16/2025 4:07 AM EDT B-TYPE NATRIURETIC PEPTIDEAdd-On06/07/2025 4:07 AM EDT COMPREHENSIVE METABOLIC ZZCRDGhcqrup34/16/2025 4:07 AM EDT MR BRAIN W WO UXJWDHQH89/15/2025 11:53 PM EDT XR ABD NG TUBE PLACEMENT 1 BXAEOAHC38/15/2025 11:33 AM EDT EEG VIDEO TAKCXLIXGOWlvpwtn89/15/2025 10:38 AM EDT CBC WITH AUTO DGGSWMZCTJBVAykwolx85/15/2025 6:52 AM EDT COMPREHENSIVE METABOLIC ARKBVSnmwqll05/15/2025 6:52 AM EDT EEG VIDEO SOEKIBELDZXvtaqyx96/15/2025 6:00 AM EDT BEDSIDE PQIAOFQEqyjqyl37/14/2025 3:52 PM EDT YXANMWBALFvhbxmn80/14/2025 2:45 PM EDT BEDSIDE OHLDPOCSsbblmx78/14/2025 11:58 AM EDT BEDSIDE MGDYRITVawwdnq26/14/2025 8:[address] BRAIN WO PQNXNLJC29/ 7:42 AM EDT EEG VIDEO TAMZZDGWHFPdcjosk36/14/2025 6:00 AM EDT DJTOcqrhde89/14/2025 4:24 AM EDT CBC WITH AUTO WFIHYXBKBEDPDodnejk41/14/2025 3:10 AM EDT LIPID EOXQHXQKdrnmdh65/14/2025 3:10 AM EDT COMPREHENSIVE METABOLIC SOOFEEnaduii41/14/2025 3:[address] BRAIN WO UDZROzrlawb94/14/2025 1:57 AM EDT BEDSIDE SEEDCMBPmyafzl46/13/2025 9:35 PM EDT CBC WITH AUTO KMASJMKEPCARXOMN11/13/2025 7:58 PM EDT TYPE AND ZNECHRILOI92/13/2025 7:58 PM EDT COMPREHENSIVE METABOLIC UZLFJZOAV78/13/2025 7:58 PM EDT BEDSIDE TIJEFNIAqhzblh71/13/2025 7:54 PM EDT REPEATED DDCHABanfrir66/13/2025 6:00 PM EDT CRUZ TOP ON LQHEHHA5706/04/2025 6:00 PM EDT LAVENDER KSQHRSA0106/04/2025 6:00 PM EDT PST WDJSWVP5706/04/2025 6:00 PM EDT BLUE IBQSXBT1106/04/2025 6:00 PM EDT RAINBOW JDXDUTZK16/13/2025 6:00 PM EDT HEMOGLOBIN E7GGjr-Zq42/13/2025 6:00 PM EDT documented in this encounter Results * (ABNORMAL) Bedside Glucose *Place/Obtain serum glucose if >500 per glucometer. (06/22/2025 4:05 PM EDT)ComponentValueRef RangeTest MethodAnalysis Time Performed AtPathologist SignatureBedside Glucose (POC)143(H)65 - 99 mg/dL 06/22/2025 4:10 PM [facility] LAB[facility]ATORYSpecimen (Source)Anatomical Location / LateralityCollection Method / VolumeCollection TimeReceived Time arterial/hdcdfaowh03/31/2025 4:05 PM EDT1 4:10 PM EDT Narrative Authorizing ProviderResult TypeResult StatusEhad Monika MDPOINT OF CARE TEST ORDERABLESFinal ResultPerforming OrganizationAddressty/State/ZIP CodePhone Number [facility] [address] [place] [address], [place] * (ABNORMAL) Bedside Glucose *Place/Obtain serum glucose if >500 per glucometer. (06/22/2025 11:32AM EDT)ComponentValueRef RangeTest MethodAnalysis Time Performed AtPathologist SignatureBedside Glucose (POC)215(H)65 - 99 mg/dL 06/22/2025 11:42 AM [facility] LABORATORYSpecimen (Source)Anatomical Location / LateralityCollection Method / VolumeCollection TimeReceived Time arterial/odlnrooxq70/31/2025 11:32 AM EDT1 11:42 AM EDT Narrative Authorizing ProviderResult TypeResult StatusEhad Monika MDPOINT OF CARE TEST ORDERABLESFinal ResultPerforming OrganizationAddressC[facility] Clinic Foundation/State/ZIP CodePhone Number [facility] [address] [place] [address], [place] * (ABNORMAL) Bedside Glucose *Place/Obtain serum glucose if >500 per glucometer. (06/22/2025 8:29 AM EDT)ComponentValueRef RangeTest MethodAnalysis Time Performed AtPathologist SignatureBedside Glucose (POC)165(H)65 - 99 mg/dL 06/22/2025 11:32 AM [facility] LABORATORYSpecimen (Source)Anatomical Location / LateralityCollection Method / VolumeCollection TimeReceived Time arterial/xgrjyjcsr90/31/2025 8:29 AM EDT1 11:32 AM EDT Narrative Authorizing ProviderResult TypeResult StatusEhad Monika MDPOINT OF CARE TEST ORDERABLESFinal ResultPerforming OrganizationAddressCity/State/ZIP CodePhone Number [facility] [address] [place] [address], [place] * Ionized calcium (06/22/2025 8:00 AM EDT)ComponentValueRef RangeTest Method Analysis TimePerformed AtPathologist SignatureIONIZED CALCIUM - ICAN5.14.5 - 5.3 mg/dL06/22/2025 9:17 AM [facility] LABORATORYSpecimen (Source)Anatomical Location / LateralityCollection Method / VolumeCollection TimeReceived TimeBloodVenous blood / UnknownVenipuncture / Fzykzdj5006/22/2025 8:00 AM EDT1 9:09 AM EDT Narrative Authorizing ProviderResult TypeResult StatusRamy Luciana BARNES BLOOD ORDERABLES Final ResultPerforming OrganizationAddressCity/State/ZIP CodePhone Number [address] [place] [address], * Phosphorus (06/22/2025 8:00 AM EDT)ComponentValueRef RangeTest MethodAnalysis TimePerformed AtPathologist SignaturePHOSPHORUS4.62.4 - 4.9 mg/dL06/22/2025 9:36 AM [facility] LABORATORYSpecimen (Source)Anatomical Location / LateralityCollection Method / VolumeCollection TimeReceived Time BloodVenous blood / UnknownVenipuncture / Ikmijok5406/22/2025 8:00 AM EDT 06/22/2025 9:07 AM EDT Narrative Authorizing ProviderResult TypeResult StatusRamy Luciana BARNES BLOOD ORDERABLES Final ResultPerforming OrganizationAddressCity/State/ZIP CodePhone Number [facility] [address] [address] [place] [address], [place] [phone] * Magnesium (06/22/2025 8:00 AM EDT)ComponentValueRef RangeTest MethodAnalysis TimePerformed AtPathologist SignatureMAGNESIUM2.31.8 - 2.6 mg/dL06/22/2025 9:36 AM [facility] LABORATORYSpecimen (Source)Anatomical Location / LateralityCollection Method / VolumeCollection TimeReceived Time BloodVenous blood / UnknownVenipuncture / Caorrsf4506/22/2025 8:00 AM EDT 06/22/2025 9:07 AM EDT Narrative Authorizing ProviderResult TypeResult StatusRamy Luciana BARNES BLOOD ORDERABLES Final ResultPerforming OrganizationAddressCity/State/ZIP CodePhone Number [facility] [address] [place] [address], * CBC auto differential (06/22/2025 8:00 AM EDT)ComponentValueRef RangeTest MethodAnalysis TimePerformed AtPathologist SignatureWBC5.64 - 11 x10E9/L 06/22/2025 9:23 AM [facility] LABORATORYRBC Count4.324.1 - 5.7 X10E12/L1 9:23 AM [facility] Ygqbwotqui43.613 - 17 g/dL06/22/2025 9:23 AM [facility] PUGXOUIJCBHedefxious38.139 - 50 %06/22/2025 9:23 AM [facility] PQLSJWFMPNKPZ3778 - 100 fL06/22/2025 9:23 AM [facility] XDPJBIKXYJXWV94.527 - 34 pg06/22/2025 9:23 AM [facility] HYKUOWTPVPBNXV13.032 - 36 g/dL06/22/2025 9:23 AM [facility] IPNFAIQHAVIDH46.211.5 - 15 %06/22/2025 9:23 AM [facility] LABORATORYPlatelet Jbtmi436190 - 450 X10E9/L1 9:23 AM EDT [facility]ORYMPV8.77 - 12 fL06/22/2025 9:23 AM [facility] LABORATORYNeutrophils %58.9%06/22/2025 9:23 AM [facility] LABORATORYLymphocytes %24.8%06/22/2025 9:23 AM [facility] LABORATORYMonocytes %10.5%06/22/2025 9:23 AM [facility] LABORATORYEosinophils %4.8%06/22/2025 9:23 AM [facility] LABORATORYBasophils %1.0%06/22/2025 9:23 AM [facility] LABORATORYNeutrophils Absolute (A)3.31.5 - 6.6 10*3/uL 06/22/2025 9:23 AM [facility] LABORATORYLymphocytes Absolute 1.41.0 - 3.5 10*3/uL06/22/2025 9:23 AM [facility] Monocytes Absolute0.60.0 - 0.9 10*3/uL06/22/2025 9:23 AM [facility] LABORATORYEosinophils Absolute0.30.0 - 0.4 10*3/uL06/22/2025 9:23 AM [facility] LABORATORYBasophils Absolute0.10.0 - 0.2 10*3/uL 06/22/2025 9:23 AM [facility] LABORATORYDifferential Type AUTOMATED FIMZNDWRQVAV40/31/2025 9:23 AM [facility] LABORATORYSpecimen (Source)Anatomical Location / LateralityCollection Method / VolumeCollection TimeReceived TimeBloodVenous blood / UnknownVenipuncture / Zyjspcg1206/22/2025 8:00 AM EDT1 9:07 AM EDT Narrative Authorizing ProviderResult TypeResult StatusFahpipe BARNES BLOOD ORDERABLES Final ResultPerforming OrganizationAddressCity/State/ZIP CodePhone Number [facility] [address] [place] [address], * (ABNORMAL) Comprehensive metabolic panel (06/22/2025 8:00 AM EDT)Component ValueRef RangeTest MethodAnalysis TimePerformed AtPathologist SignatureSODIUM 150(H)134 - 146 mmol/L1 9:36 AM [facility] LABORATORYPOTASSIUM4.63.5 - 5.0 mmol/L1 9:36 AM [facility] WPNYMDWFEETIPKUSOV727(H)98 - 109 mmol/L1 9:36 AM [facility] LABORATORYCARBON DWLSAWQ5256 - 32 mmol/L1 9:36 AM [facility] LABORATORYANION XAN832 - 15 mmol/L1 9:36 AM [facility] LABORATORYBLOOD UREA TRBBGNVG13(H)5 - 27 mg/dL 06/22/2025 9:36 AM [facility] LABORATORYCREATININE1.75(H)0.60 - 1.30 mg/dL06/22/2025 9:36 AM [facility] LABORATORYComment: METHOD TRACEABLE TO IDFL NEEREDXUZAYBVCG437(H)65 - 99 mg/dL06/22/2025 9:36 AM [facility] LABORATORYCALCIUM9.98.5 - 10.5 mg/dL06/22/2025 9:36 AM [facility] LABORATORYTOTAL PROTEIN7.26.0 - 8.0 g/dL 06/22/2025 9:36 AM [facility] LABORATORYALBUMIN3.73.2 - 5.3 g/dL06/22/2025 9:36 AM [facility] LABORATORYALKALINE WKTMUBYFRRJ2149 - 130 U/L1 9:36 AM [facility] EVTGDZYHJXBHG82<=41 U/L1 9:36 AM [facility] KUZLFQQDYHDKA76<=40 U/L1 9:36 AM [facility] LABORATORYBILIRUBIN,TOTAL0.40.3 - 1.2 mg/dL06/22/2025 9:36 AM [facility]OR[facility]ORYEGFR Non-Race Eiynfbrkn18(L)>=60 ml/min/1.73sq.m 06/22/2025 9:36 AM [facility] LABORATORYComment: Reported eGFR is based on the CKD-EPI 2020 equation that does not use a race coefficient. Specimen (Source)Anatomical Location / LateralityCollection Method / Volume Collection TimeReceived TimeBloodVenous blood / UnknownVenipuncture / Unknown 06/22/2025 8:00 AM EDT1 9:07 AM EDT Narrative Authorizing ProviderResult TypeResult StatusAlphonse BARNES BLOOD ORDERABLES Final ResultPerforming OrganizationAddressCity/State/ZIP CodePhone Number [facility] [address] [place] [address], [place] [phone] * (ABNORMAL) Bedside Glucose *Place/Obtain serum glucose if >500 per glucometer. (06/21/2025 9:22 PM EDT)ComponentValueRef RangeTest MethodAnalysis Time Performed AtPathologist SignatureBedside Glucose (POC)177(H)65 - 99 mg/dL 06/21/2025 9:35 PM [facility] LABORATORYSpecimen (Source)Anatomical Location / LateralityCollection Method / VolumeCollection TimeReceived Time arterial/uyxgsgvau86/30/2025 9:22 PM EDT1 9:35 PM EDT Narrative Authorizing ProviderResult TypeResult StatusEhad Monika MDPOINT OF CARE TEST ORDERABLESFinal ResultPerforming OrganizationAddressCity/State/ZIP CodePhone Number [facility] [address] [place] [address], [place] * (ABNORMAL) Bedside Glucose *Place/Obtain serum glucose if >500 per glucometer. (06/21/2025 4:56 PM EDT)ComponentValueRef RangeTest MethodAnalysis Time Performed AtPathologist SignatureBedside Glucose (POC)240(H)65 - 99 mg/dL 06/21/2025 5:02 PM [facility] LABORATORYSpecimen (Source)Anatomical Location / LateralityCollection Method / VolumeCollection TimeReceived Time arterial/rvnfmypfz76/30/2025 4:56 PM EDT1 5:01 PM EDT Narrative Authorizing ProviderResult TypeResult StatusEhad Monika MDPOINT OF CARE TEST ORDERABLESFinal ResultPerforming OrganizationAddressCity/State/ZIP CodePhone Number [facility] [address] [place] [address], [place] * CT brain without contrast (06/21/2025 [...] Sequelae other nonacute ischemic events. Approved by Res Ishan J Vanderhoof, DO ??on 06/21/2025 2:20 PM Stiven Wyman [...] Med Vidal DO on 06/21/2025 2:20 PM Stiven Wmyan MD have personally reviewed the image(s) and agreewith and/or edited the report Finalized by Stiven Vu MD on 06/21/2025 2:55 PM Authorizing ProviderResult TypeResult StatusAhmed Luciana Butt MDIMG CT ORDERABLES Final Result * Vas [...] phone number besidetheir name. Authorizing ProviderResult TypeResult StatusJameyheritage valley health system Bang [facility] VASCULAR ORDERABLESFinal Result * (ABNORMAL) Bedside Glucose *Place/Obtain serum glucose if >500 per glucometer. (06/21/2025 11:54AM EDT)ComponentValueRef RangeTest MethodAnalysis Time Performed AtPathologist SignatureBedside Glucose (POC)148(H)65 - 99 mg/dL 06/21/2025 11:55 AM [facility] LABORATORYSpecimen (Source)Anatomical Location / LateralityCollection Method / VolumeCollection TimeReceived Time arterial/emfkbbvlv91/30/2025 11:54 AM EDT1 11:55 AM EDT Narrative Authorizing ProviderResult TypeResult StatusEhad Monika MDPOINT OF CARE TEST ORDERABLESFinal ResultPerforming OrganizationAddressCity/State/ZIP CodePhone Number [facility] [address] [place] [address], [place] * (ABNORMAL) Bedside Glucose *Place/Obtain serum glucose if >500 per glucometer. (06/21/2025 7:44 AM EDT)ComponentValueRef RangeTest MethodAnalysis Time Performed AtPathologist SignatureBedside Glucose (POC)145(H)65 - 99 mg/dL 06/21/2025 7:45 AM [facility] LABORATORYSpecimen (Source)Anatomical Location / LateralityCollection Method / VolumeCollection TimeReceived Time arterial//30/2025 7:44 AM EDT1 7:45 AM EDT Narrative Authorizing ProviderResult TypeResult StatusEhad Monika MDPOINT OF CARE TEST ORDERABLESFinal ResultPerforming OrganizationAddressty/State/ZIP CodePhone Number [facility] [address] [place] [address], [place] * Ionized calcium (06/21/2025 6:10 AM EDT)ComponentValueRef RangeTest Method Analysis TimePerformed AtPathologist SignatureIONIZED CALCIUM - ICAN5.24.5 - 5.3 mg/dL06/21/2025 6:25 AM [facility] LABORATORYSpecimen (Source)Anatomical Location / LateralityCollection Method / VolumeCollection TimeReceived TimeBloodVenous blood / UnknownVenipuncture / Dwnlhge9206/21/2025 6:10 AM EDT1 6:19 AM EDT Narrative Authorizing ProviderResult TypeResult StatusRamy Luciana BARNES BLOOD ORDERABLES Final ResultPerforming OrganizationAddressCity/State/ZIP CodePhone Number [address] [place] [address], * Phosphorus (06/21/2025 6:10 AM EDT)ComponentValueRef RangeTest MethodAnalysis TimePerformed AtPathologist SignaturePHOSPHORUS4.72.4 - 4.9 mg/dL06/21/2025 6:50 AM [facility] LABORATORYSpecimen (Source)Anatomical Location / LateralityCollection Method / VolumeCollection TimeReceived Time BloodVenous blood / UnknownVenipuncture / Zslfbff3706/21/2025 6:10 AM EDT 06/21/2025 6:20 AM EDT Narrative Authorizing ProviderResult TypeResult StatusRamy Luciana BARNES BLOOD ORDERABLES Final ResultPerforming OrganizationAddressCity/State/ZIP CodePhone Number [address] [place] [address], * Magnesium (06/21/2025 6:10 AM EDT)ComponentValueRef RangeTest MethodAnalysis TimePerformed AtPathologist SignatureMAGNESIUM2.31.8 - 2.6 mg/dL06/21/2025 6:50 AM [facility] LABORATORYSpecimen (Source)Anatomical Location / LateralityCollection Method / VolumeCollection TimeReceived Time BloodVenous blood / UnknownVenipuncture / Jteajcd1406/21/2025 6:10 AM EDT 06/21/2025 6:20 AM EDT Narrative Authorizing ProviderResult TypeResult StatusRamy Lucaina BARNES BLOOD ORDERABLES Final ResultPerforming OrganizationAddressCity/State/ZIP CodePhone Number [facility] [address] [place] [address], * (ABNORMAL) CBC auto differential (06/21/2025 6:10 AM EDT)ComponentValueRef RangeTest MethodAnalysis TimePerformed AtPathologist SignatureWBC5.04 - 11 x10E9/L1 6:32 AM [facility] LABORATORYRBC Count4.16 4.1 - 5.7 X10E12/L1 6:32 AM [facility] Aszrnzttta47.213 - 17 g/dL06/21/2025 6:32 AM [facility] SBRCGUEZMCDsipqwpykg85.9(L)39 - 50 %06/21/2025 6:32 AM [facility] ONZNZOBAKLFAO2466 - 100 fL06/21/2025 6:32 AM [facility] DPHTXWDVLQGPK69.727 - 34 pg06/21/2025 6:32 AM [facility] XVGLKWRSHXIMNA66.932 - 36 g/dL06/21/2025 6:32 AM [facility] KOKBMRWCNWWHP66.211.5 - 15 %06/21/2025 6:32 AM [facility] LABORATORYPlatelet Dfwgx052299 - 450 X10E9/L1 6:32 AM EDT [facility]ORYMPV8.27 - 12 fL06/21/2025 6:32 AM [facility] LABORATORYNeutrophils %55.1%06/21/2025 6:32 AM [facility] LABORATORYLymphocytes %26.7%06/21/2025 6:32 AM [facility] LABORATORYMonocytes %11.8%06/21/2025 6:32 AM [facility] LABORATORYEosinophils %5.7%06/21/2025 6:32 AM [facility] LABORATORYBasophils %0.7%06/21/2025 6:32 AM [facility] LABORATORYNeutrophils Absolute (A)2.71.5 - 6.6 10*3/uL 06/21/2025 6:32 AM [facility] LABORATORYLymphocytes Absolute 1.31.0 - 3.5 10*3/uL06/21/2025 6:32 AM [facility] Monocytes Absolute0.60.0 - 0.9 10*3/uL06/21/2025 6:32 AM [facility] LABORATORYEosinophils Absolute0.30.0 - 0.4 10*3/uL06/21/2025 6:32 AM [facility] LABORATORYBasophils Absolute0.00.0 - 0.2 10*3/uL 06/21/2025 6:32 AM [facility] LABORATORYDifferential Type AUTOMATED NFUZHEZLJVYM28/30/2025 6:32 AM [facility] LABORATORYSpecimen (Source)Anatomical Location / LateralityCollection Method / VolumeCollection TimeReceived TimeBloodVenous blood / UnknownVenipuncture / Fcijpsk9206/21/2025 6:10 AM EDT1 6:20 AM EDT Narrative Authorizing ProviderResult TypeResult StatusFahpipe BARNES BLOOD ORDERABLES Final ResultPerforming OrganizationAddressCity/State/ZIP CodePhone Number [facility] [address] [place] [address], * (ABNORMAL) Comprehensive metabolic panel (06/21/2025 6:10 AM EDT)Component ValueRef RangeTest MethodAnalysis TimePerformed AtPathologist SignatureSODIUM 148(H)134 - 146 mmol/L1 6:50 AM [facility] LABORATORYPOTASSIUM4.83.5 - 5.0 mmol/L1 6:50 AM [facility] ZVFPWGLQUHSWAZWTND315(H)98 - 109 mmol/L1 6:50 AM [facility] LABORATORYCARBON OTVDQHD66(L)22 - 32 mmol/L1 6:50 AM [facility] LABORATORYANION ZEV100 - 15 mmol/L1 6:50 AM [facility] LABORATORYBLOOD UREA AUSIQQMF61(H)5 - 27 mg/dL06/21/2025 6:50 AM [facility] LABORATORYCREATININE1.68 (H)0.60 - 1.30 mg/dL06/21/2025 6:50 AM [facility] Comment:METHOD TRACEABLE TO IDMS OPXYGTOEYYNFFTY940(H)65 - 99 mg/dL06/21/2025 6:50 AM [facility] LABORATORYCALCIUM9.58.5 - 10.5 mg/dL 06/21/2025 6:50 AM [facility] LABORATORYTOTAL PROTEIN7.06.0 - 8.0 g/dL06/21/2025 6:50 AM [facility] LABORATORYALBUMIN3.93.2 - 5.3 g/dL06/21/2025 6:50 AM [facility] LABORATORYALKALINE AMFWDASLTKF6050 - 130 U/L1 6:50 AM [facility] SQATIFIFIBVRU05<=41 U/L1 6:50 AM [facility] GMXMMAOUJZKFQ72<=40 U/L1 6:50 AM [facility] LABORATORYBILIRUBIN,TOTAL0.50.3 - 1.2 mg/dL06/21/2025 6:50 AM [facility] LABORATORYEGFR Non-Race Krlrimpba95(L)>=60 ml/min/1.73sq.m 06/21/2025 6:50 AM [facility] LABORATORYComment: Reported eGFR is based on the CKD-EPI 2020 equation that does not use a race coefficient. Specimen (Source)Anatomical Location / LateralityCollection Method / Volume Collection TimeReceived TimeBloodVenous blood / UnknownVenipuncture / Unknown 06/21/2025 6:10 AM EDT1 6:20 AM EDT Narrative Authorizing ProviderResult TypeResult StatusFahham Bang MDLAB BLOOD ORDERABLES Final ResultPerforming OrganizationAddressty/State/ZIP CodePhone Number [facility] [address] [place] [address], [place] [phone] * (ABNORMAL) Bedside Glucose *Place/Obtain serum glucose if >500 per glucometer. (06/20/2025 9:24 PM EDT)ComponentValueRef RangeTest MethodAnalysis Time Performed AtPathologist SignatureBedside Glucose (POC)164(H)65 - 99 mg/dL 06/20/2025 9:30 PM [facility] LABORATORYSpecimen (Source)Anatomical Location / LateralityCollection Method / VolumeCollection TimeReceived Time arterial/galdxnigu69/29/2025 9:24 PM EDT1 9:30 PM EDT Narrative Authorizing ProviderResult TypeResult StatusEhad Monika MDPOINT OF CARE TEST ORDERABLESFinal ResultPerforming OrganizationAddressCity/State/ZIP CodePhone Number [facility] [address] [place] [address], [place] * Bedside Glucose *Place/Obtain serum glucose if >500 per glucometer. (06/20/2025 3:37 PM EDT)ComponentValueRef RangeTest MethodAnalysis Time Performed AtPathologist SignatureBedside Glucose (POC)9065 - 99 mg/dL 06/20/2025 3:39 PM [facility] LABORATORYSpecimen (Source)Anatomical Location / LateralityCollection Method / VolumeCollection TimeReceived Time arterial/pocyhnnlm43/29/2025 3:37 PM EDT1 3:39 PM EDT Narrative Authorizing ProviderResult TypeResult StatusEhad Monika MDPOINT OF CARE TEST ORDERABLESFinal ResultPerforming OrganizationAddLehigh [facility]/State/ZIP CodePhone Number [facility] [address] [place] [address], [place] * (ABNORMAL) Bedside Glucose *Place/Obtain serum glucose if >500 per glucometer. (06/20/2025 11:52AM EDT)ComponentValueRef RangeTest MethodAnalysis Time Performed AtPathologist SignatureBedside Glucose (POC)223(H)65 - 99 mg/dL 06/20/2025 11:53 AM [facility] LABORATORYSpecimen (Source)Anatomical Location / LateralityCollection Method / VolumeCollection TimeReceived Time arterial/ueclxzkxx59/29/2025 11:52 AM EDT1 11:53 AM EDT Narrative Authorizing ProviderResult TypeResult StatusEhad Monika MDPOINT OF CARE TEST ORDERABLESFinal ResultPerforming OrganizationAddressCity/State/ZIP CodePhone Number [facility] [address] [place] [address], [place] * (ABNORMAL) Bedside Glucose *Place/Obtain serum glucose if >500 per glucometer. (06/20/2025 7:21 AM EDT)ComponentValueRef RangeTest MethodAnalysis Time Performed AtPathologist SignatureBedside Glucose (POC)153(H)65 - 99 mg/dL 06/20/2025 7:22 AM [facility] LABORATORYSpecimen (Source)Anatomical Location / LateralityCollection Method / VolumeCollection TimeReceived Time arterial/itvzdtifw29/29/2025 7:21 AM EDT1 7:22 AM EDT Narrative Authorizing ProviderResult TypeResult StatusEhad Monika MDPOINT OF CARE TEST ORDERABLESFinal ResultPerforming OrganizationAddressty/State/ZIP CodePhone Number [facility] [address] [place] [address], [place] * Ionized calcium (06/20/2025 6:11 AM EDT)ComponentValueRef RangeTest Method Analysis TimePerformed AtPathologist SignatureIONIZED CALCIUM - ICAN5.04.5 - 5.3 mg/dL06/20/2025 7:31 AM [facility] LABORATORYSpecimen (Source)Anatomical Location / LateralityCollection Method / VolumeCollection TimeReceived TimeBloodVenous blood / UnknownVenipuncture / Brhdhsb2006/20/2025 6:11 AM EDT1 6:22 AM EDT Narrative Authorizing ProviderResult TypeResult StatusAdan BARNES BLOOD ORDERABLES Final ResultPerforming OrganizationAddressty/State/ZIP CodePhone Number [facility] [address] [place] [address], [place] [phone] * Phosphorus (06/20/2025 6:11 AM EDT)ComponentValueRef RangeTest MethodAnalysis TimePerformed AtPathologist SignaturePHOSPHORUS4.82.4 - 4.9 mg/dL06/20/2025 6:53 AM [facility] LABORATORYSpecimen (Source)Anatomical Location / LateralityCollection Method / VolumeCollection TimeReceived Time BloodVenous blood / UnknownVenipuncture / Vewfdqu1506/20/2025 6:11 AM EDT 06/20/2025 6:21 AM EDT Narrative Authorizing ProviderResult TypeResult StatusRamy Luciana BARNES BLOOD ORDERABLES Final ResultPerforming OrganizationAddressCity/State/ZIP CodePhone Number [facility] [address] [place] [address], * Magnesium (06/20/2025 6:11 AM EDT)ComponentValueRef RangeTest MethodAnalysis TimePerformed AtPathologist SignatureMAGNESIUM2.51.8 - 2.6 mg/dL06/20/2025 6:53 AM [facility] LABORATORYSpecimen (Source)Anatomical Location / LateralityCollection Method / VolumeCollection TimeReceived Time BloodVenous blood / UnknownVenipuncture / Rlftfee1606/20/2025 6:11 AM EDT 06/20/2025 6:21 AM EDT Narrative Authorizing ProviderResult TypeResult StatusRamy Luciana BARNES BLOOD ORDERABLES Final ResultPerforming OrganizationAddressCity/State/ZIP CodePhone Number [facility] [address] [place] [address], [place] [phone] * CBC auto differential (06/20/2025 6:11 AM EDT)ComponentValueRef RangeTest MethodAnalysis TimePerformed AtPathologist SignatureWBC4.64 - 11 x10E9/L 06/20/2025 6:36 AM [facility] LABORATORYRBC Count4.254.1 - 5.7 X10E12/L1 6:36 AM [facility] Vbymagdsqi27.313 - 17 g/dL06/20/2025 6:36 AM [facility] PLFZUIDSNRBdaudgyjkl14.339 - 50 %06/20/2025 6:36 AM [facility] HXRYSZETPLANT0739 - 100 fL06/20/2025 6:36 AM [facility] JGJZGDHNJNWFE95.327 - 34 pg06/20/2025 6:36 AM [facility] WWMDOVDEBDMXFR23.732 - 36 g/dL06/20/2025 6:36 AM [facility] INJKLOWKBFAQI94.311.5 - 15 %06/20/2025 6:36 AM [facility] LABORATORYPlatelet Vpplj146444 - 450 X10E9/L1 6:36 AM [facility] LABORATORYMPV8.47 - 12 fL06/20/2025 6:36 AM [facility] LABORATORYNeutrophils %52.7%06/20/2025 6:36 AM [facility] LABORATORYLymphocytes %28.3%06/20/2025 6:36 AM [facility] LABORATORYMonocytes %11.9%06/20/2025 6:36 AM [facility] LABORATORYEosinophils %6.1%06/20/2025 6:36 AM [facility] LABORATORYBasophils %1.0%06/20/2025 6:36 AM [facility] LABORATORYNeutrophils Absolute (A)2.41.5 - 6.6 10*3/uL 06/20/2025 6:36 AM [facility] LABORATORYLymphocytes Absolute 1.31.0 - 3.5 10*3/uL06/20/2025 6:36 AM [facility] Monocytes Absolute0.50.0 - 0.9 10*3/uL06/20/2025 6:36 AM [facility] LABORATORYEosinophils Absolute0.30.0 - 0.4 10*3/uL06/20/2025 6:36 AM [facility] LABORATORYBasophils Absolute0.00.0 - 0.2 10*3/uL 06/20/2025 6:36 AM [facility] LABORATORYDifferential Type AUTOMATED OQNGVBEMLNRC48/29/2025 6:36 AM [facility] LABORATORYSpecimen (Source)Anatomical Location / LateralityCollection Method / VolumeCollection TimeReceived TimeBloodVenous blood / UnknownVenipuncture / Iadevpe3506/20/2025 6:11 AM EDT1 6:21 AM EDT Narrative Authorizing ProviderResult TypeResult StatusFahpipe BARNES BLOOD ORDERABLES Final ResultPerforming OrganizationAddressCity/State/ZIP CodePhone Number [facility] [address] [place] [phone], * (ABNORMAL) Comprehensive metabolic panel (06/20/2025 6:11 AM EDT)Component ValueRef RangeTest MethodAnalysis TimePerformed AtPathologist SignatureSODIUM 169261 - 146 mmol/L1 6:53 AM [facility] POTASSIUM4.63.5 - 5.0 mmol/L1 6:53 AM [facility] ZTOHCHMBSWSDTFMPHZ610(H)98 - 109 mmol/L1 6:53 AM [facility] LABORATORYCARBON JBUANTF1923 - 32 mmol/L1 6:53 AM [facility] LABORATORYANION GAP95 - 15 mmol/L1 6:53 AM EDT [facility] LABORATORYBLOOD UREA FSWVRXNZ14(H)5 - 27 mg/dL 06/20/2025 6:53 AM [facility] LABORATORYCREATININE1.71(H)0.60 - 1.30 mg/dL06/20/2025 6:53 AM [facility] LABORATORYComment: METHOD TRACEABLE TO IDMS YHENIFMYLIQBPZR673(H)65 - 99 mg/dL06/20/2025 6:53 AM [facility] LABORATORYCALCIUM9.68.5 - 10.5 mg/dL06/20/2025 6:53 AM [facility] LABORATORYTOTAL PROTEIN6.96.0 - 8.0 g/dL 06/20/2025 6:53 AM [facility] LABORATORYALBUMIN3.73.2 - 5.3 g/dL06/20/2025 6:53 AM [facility] LABORATORYALKALINE KDLFMJKSNCL6488 - 130 U/L1 6:53 AM [facility] BXMKBQWBBTCRB41<=41 U/L1 6:53 AM [facility] EAIVGTDYWTNOV29<=40 U/L1 6:53 AM [facility] LABORATORYBILIRUBIN,TOTAL0.50.3 - 1.2 mg/dL06/20/2025 6:53 AM [facility] LABORATORYEGFR Non-Race Iuoqypbhf11(L)>=60 ml/min/1.73sq.m 06/20/2025 6:53 AM [facility] LABORATORYComment: Reported eGFR is based on the CKD-EPI 2020 equation that does not use a race coefficient. Specimen (Source)Anatomical Location / LateralityCollection Method / Volume Collection TimeReceived TimeBloodVenous blood / UnknownVenipuncture / Unknown 06/20/2025 6:11 AM EDT1 6:21 AM EDT Narrative Authorizing ProviderResult TypeResult StatusFamatthew BARNES BLOOD ORDERABLES Final ResultPerforming OrganizationAddressCity/State/ZIP CodePhone Number [facility] [address] [place] [address], * (ABNORMAL) Bedside Glucose *Place/Obtain serum glucose if >500 per glucometer. (06/19/2025 9:05 PM EDT)ComponentValueRef RangeTest MethodAnalysis Time Performed AtPathologist SignatureBedside Glucose (POC)169(H)65 - 99 mg/dL 06/19/2025 9:11 PM [facility] LABORATORYSpecimen (Source)Anatomical Location / LateralityCollection Method / VolumeCollection TimeReceived Time arterial/hogfiqfvj25/28/2025 9:05 PM EDT1 9:11 PM EDT Narrative Authorizing ProviderResult TypeResult StatusEhad Monika MDPOINT OF CARE TEST ORDERABLESFinal ResultPerforming OrganizationAddressCleveland Clinic Foundation/State/ZIP CodePhone Number [facility] [address] [place] [address], * (ABNORMAL) Bedside Glucose *Place/Obtain serum glucose if >500 per glucometer. (06/19/2025 12:09PM EDT)ComponentValueRef RangeTest MethodAnalysis Time Performed AtPathologist SignatureBedside Glucose (POC)157(H)65 - 99 mg/dL 06/19/2025 4:36 PM [facility] LABORATORYSpecimen (Source)Anatomical Location / LateralityCollection Method / VolumeCollection TimeReceived Time arterial/djgqoidbj81/28/2025 12:09 PM EDT1 4:36 PM EDT Narrative Authorizing ProviderResult TypeResult StatusEhad Monika MDPOINT OF CARE TEST ORDERABLESFinal ResultPerforming OrganizationAddPenn State Health Rehabilitation Hospitalty/State/ZIP CodePhone [facility] [address] [place] [address], [place] * (ABNORMAL) Bedside Glucose *Place/Obtain serum glucose if >500 per glucometer. (06/19/2025 7:19 AM EDT)ComponentValueRef RangeTest MethodAnalysis Time Performed AtPathologist SignatureBedside Glucose (POC)147(H)65 - 99 mg/dL 06/19/2025 7:22 AM [facility] LABORATORYSpecimen (Source)Anatomical Location / LateralityCollection Method / VolumeCollection TimeReceived Time arterial/gjsoqshcf00/28/2025 7:19 AM EDT1 7:21 AM EDT Narrative Authorizing ProviderResult TypeResult StatusEhad Monika MDPOINT OF CARE TEST ORDERABLESFinal ResultPerforming OrganizationAddLe[facility] [facility] [place]/State/ZIP CodePhone Number [facility] [address] [place] [address], [place] * Ionized calcium (06/19/2025 6:01 AM EDT)ComponentValueRef RangeTest Method Analysis TimePerformed AtPathologist SignatureIONIZED CALCIUM - ICAN5.04.5 - 5.3 mg/dL06/19/2025 6:27 AM [facility] LABORATORYSpecimen (Source)Anatomical Location / LateralityCollection Method / VolumeCollection TimeReceived TimeBloodVenous blood / UnknownVenipuncture / Rxzqihq4606/19/2025 6:01 AM EDT1 6:13 AM EDT Narrative Authorizing ProviderResult TypeResult StatusRamy Luciana BARNES BLOOD ORDERABLES Final ResultPerforming OrganizationAddressCity/State/ZIP CodePhone Number [address] [place] [address], * Phosphorus (06/19/2025 6:01 AM EDT)ComponentValueRef RangeTest MethodAnalysis TimePerformed AtPathologist SignaturePHOSPHORUS4.72.4 - 4.9 mg/dL06/19/2025 6:45 AM [facility] LABORATORYSpecimen (Source)Anatomical Location / LateralityCollection Method / VolumeCollection TimeReceived Time BloodVenous blood / UnknownVenipuncture / Rijmfzj9006/19/2025 6:01 AM EDT 06/19/2025 6:14 AM EDT Narrative Authorizing ProviderResult TypeResult StatusRamy Luciana BARNES BLOOD ORDERABLES Final ResultPerforming OrganizationAddressCity/State/ZIP CodePhone Number [address] [place] [phone], * (ABNORMAL) Magnesium (06/19/2025 6:01 AM EDT)ComponentValueRef RangeTest MethodAnalysis TimePerformed AtPathologist SignatureMAGNESIUM2.7(H)1.8 - 2.6 mg/dL06/19/2025 6:45 AM [facility] LABORATORYSpecimen (Source)Anatomical Location / LateralityCollection Method / VolumeCollection TimeReceived TimeBloodVenous blood / UnknownVenipuncture / Emgbkap6006/19/2025 6:01 AM EDT1 6:14 AM EDT Narrative Authorizing ProviderResult TypeResult StatusRamy Luciana BARNES BLOOD ORDERABLES Final ResultPerforming OrganizationAddressCity/State/ZIP CodePhone Number [facility] [address] [place] [phone], * CBC auto differential (06/19/2025 6:01 AM EDT)ComponentValueRef RangeTest MethodAnalysis TimePerformed AtPathologist SignatureWBC5.64 - 11 x10E9/L 06/19/2025 6:28 AM [facility] LABORATORYRBC Count4.234.1 - 5.7 X10E12/L1 6:28 AM [facility] Vdbirabhnw61.413 - 17 g/dL06/19/2025 6:28 AM [facility] GAUQIJCIEOInponetsaw13.339 - 50 %06/19/2025 6:28 AM [facility] RGMGWGAGYFIJB2360 - 100 fL06/19/2025 6:28 AM [facility] IBNMWWCXHMXHN81.627 - 34 pg06/19/2025 6:28 AM [facility] QNEQZGCSXDCDZS36.032 - 36 g/dL06/19/2025 6:28 AM [facility] UOMNNWHCVMYJW77.411.5 - 15 %06/19/2025 6:28 AM [facility] LABORATORYPlatelet Crbue733753 - 450 X10E9/L1 6:28 AM EDT [facility]ATORYMPV8.47 - 12 fL06/19/2025 6:28 AM [facility] LABORATORYNeutrophils %58.6%06/19/2025 6:28 AM [facility] LABORATORYLymphocytes %25.1%06/19/2025 6:28 AM [facility] LABORATORYMonocytes %10.4%06/19/2025 6:28 AM [facility] LABORATORYEosinophils %5.0%06/19/2025 6:28 AM [facility] LABORATORYBasophils %0.9%06/19/2025 6:28 AM [facility] LABORATORYNeutrophils Absolute (A)3.31.5 - 6.6 10*3/uL 06/19/2025 6:28 AM [facility] LABORATORYLymphocytes Absolute 1.41.0 - 3.5 10*3/uL06/19/2025 6:28 AM [facility] Monocytes Absolute0.60.0 - 0.9 10*3/uL06/19/2025 6:28 AM [facility] LABORATORYEosinophils Absolute0.30.0 - 0.4 10*3/uL06/19/2025 6:28 AM [facility] LABORATORYBasophils Absolute0.10.0 - 0.2 10*3/uL 06/19/2025 6:28 AM [facility] LABORATORYDifferential Type AUTOMATED LUPYLRTXHFHG05/28/2025 6:28 AM [facility] LABORATORYSpecimen (Source)Anatomical Location / LateralityCollection Method / VolumeCollection TimeReceived TimeBloodVenous blood / UnknownVenipuncture / Uscjodd8106/19/2025 6:01 AM EDT1 6:14 AM EDT Narrative Authorizing ProviderResult TypeResult StatusFahpipe BARNES BLOOD ORDERABLES Final ResultPerforming OrganizationAddressCity/State/ZIP CodePhone Number [facility] [address] [place] [address], * (ABNORMAL) Comprehensive metabolic panel (06/19/2025 6:01 AM EDT)Component ValueRef RangeTest MethodAnalysis TimePerformed AtPathologist SignatureSODIUM 555548 - 146 mmol/L1 6:45 AM [facility] POTASSIUM4.73.5 - 5.0 mmol/L1 6:45 AM [facility] DNBTDHHDXGIKBKWDFK141(H)98 - 109 mmol/L1 6:45 AM [facility] LABORATORYCARBON LGJWMYY0382 - 32 mmol/L1 6:45 AM [facility] LABORATORYANION GAP95 - 15 mmol/L1 6:45 AM EDT [facility]ATORYBLOOD UREA UWNHQTLC22(H)5 - 27 mg/dL 06/19/2025 6:45 AM [facility] LABORATORYCREATININE1.90(H)0.60 - 1.30 mg/dL06/19/2025 6:45 AM [facility] LABORATORYComment: METHOD TRACEABLE TO IDFL VUTPGWDWQQNUYKD961(H)65 - 99 mg/dL06/19/2025 6:45 AM [facility] LABORATORYCALCIUM9.68.5 - 10.5 mg/dL06/19/2025 6:45 AM [facility] LABORATORYTOTAL PROTEIN7.06.0 - 8.0 g/dL 06/19/2025 6:45 AM [facility] LABORATORYALBUMIN3.73.2 - 5.3 g/dL06/19/2025 6:45 AM [facility] LABORATORYALKALINE XDDZZBSIGQO8770 - 130 U/L1 6:45 AM [facility] TQBIOESRYLSEM68<=41 U/L1 6:45 AM [facility] FFJWIHBIWTPKX99<=40 U/L1 6:45 AM [facility] LABORATORYBILIRUBIN,TOTAL0.50.3 - 1.2 mg/dL06/19/2025 6:45 AM [facility] LABORATORYEGFR Non-Race Qunruttxe80(L)>=60 ml/min/1.73sq.m 06/19/2025 6:45 AM [facility] LABORATORYComment: Reported eGFR is based on the CKD-EPI 2020 equation that does not use a race coefficient. Specimen (Source)Anatomical Location / LateralityCollection Method / Volume Collection TimeReceived TimeBloodVenous blood / UnknownVenipuncture / Unknown 06/19/2025 6:01 AM EDT1 6:14 AM EDT Narrative Authorizing ProviderResult TypeResult StatusFahpipe BARNES BLOOD ORDERABLES Final ResultPerforming OrganizationAddressCity/State/ZIP CodePhone Number [facility] [address] [place] [address], * (ABNORMAL) Bedside Glucose *Place/Obtain serum glucose if >500 per glucometer. (06/18/2025 9:48 PM EDT)ComponentValueRef RangeTest MethodAnalysis Time Performed AtPathologist SignatureBedside Glucose (POC)109(H)65 - 99 mg/dL 06/18/2025 9:53 PM [facility] LABORATORYSpecimen (Source)Anatomical Location / LateralityCollection Method / VolumeCollection TimeReceived Time arterial/lvsectqdn25/27/2025 9:48 PM EDT1 9:53 PM EDT Narrative Authorizing ProviderResult TypeResult StatusEhad Monika MDPOINT OF CARE TEST ORDERABLESFinal ResultPerforming OrganizationAddressCleveland Clinic Foundation/State/ZIP CodePhone [facility] LABORATORY [address] [place] [id number], [place] * (ABNORMAL) Bedside Glucose *Place/Obtain serum glucose if >500 per glucometer. (06/18/2025 4:25 PM EDT)ComponentValueRef RangeTest MethodAnalysis Time Performed AtPathologist SignatureBedside Glucose (POC)173(H)65 - 99 mg/dL 06/18/2025 4:27 PM [facility] LABORATORYSpecimen (Source)Anatomical Location / LateralityCollection Method / VolumeCollection TimeReceived Time arterial/irlkpziae94/27/2025 4:25 PM EDT1 4:27 PM EDT Narrative Authorizing ProviderResult TypeResult StatusEhad Monika MDPOINT OF CARE TEST ORDERABLESFinal ResultPerforming OrganizationAddressCleveland Clinic Foundation/State/ZIP CodePhone Number [facility] [address] [place] [address], [place] * (ABNORMAL) Bedside Glucose *Place/Obtain serum glucose if >500 per glucometer. (06/18/2025 11:29AM EDT)ComponentValueRef RangeTest MethodAnalysis Time Performed AtPathologist SignatureBedside Glucose (POC)242(H)65 - 99 mg/dL 06/18/2025 11:31 AM [facility] LABORATORYSpecimen (Source)Anatomical Location / LateralityCollection Method / VolumeCollection TimeReceived Time arterial/aputshqou44/27/2025 11:29 AM EDT1 11:31 AM EDT Narrative Authorizing ProviderResult TypeResult StatusEhad Monika MDPOINT OF CARE TEST ORDERABLESFinal ResultPerforming OrganizationAddressty/State/ZIP CodePhone Number [facility] [address] [place] [address], * (ABNORMAL) Bedside Glucose *Place/Obtain serum glucose if >500 per glucometer. (06/18/2025 7:50 AM EDT)ComponentValueRef RangeTest MethodAnalysis Time Performed AtPathologist SignatureBedside Glucose (POC)146(H)65 - 99 mg/dL 06/18/2025 7:52 AM [facility] LABORATORYSpecimen (Source)Anatomical Location / LateralityCollection Method / VolumeCollection TimeReceived Time arterial/lpybabwlr77/27/2025 7:50 AM EDT1 7:52 AM EDT Narrative Authorizing ProviderResult TypeResult StatusEhad Monika MDPOINT OF CARE TEST ORDERABLESFinal ResultPerforming OrganizationAddressCity/State/ZIP CodePhone Number [facility] [address] [place] [address], [place] * Ionized calcium (06/18/2025 5:55 AM EDT)ComponentValueRef RangeTest Method Analysis TimePerformed AtPathologist SignatureIONIZED CALCIUM - ICAN5.04.5 - 5.3 mg/dL06/18/2025 6:32 AM [facility] LABORATORYSpecimen (Source)Anatomical Location / LateralityCollection Method / VolumeCollection TimeReceived TimeBloodVenous blood / UnknownVenipuncture / Vgejkaz8306/18/2025 5:55 AM EDT1 6:05 AM EDT Narrative Authorizing ProviderResult TypeResult StatusAdan BARNES BLOOD ORDERABLES Final ResultPerforming OrganizationAddressty/State/ZIP CodePhone Number [facility] [address] [place] [address], [place] [phone] * Phosphorus (06/18/2025 5:55 AM EDT)ComponentValueRef RangeTest MethodAnalysis TimePerformed AtPathologist SignaturePHOSPHORUS4.72.4 - 4.9 mg/dL06/18/2025 6:44 AM [facility] LABORATORYSpecimen (Source)Anatomical Location / LateralityCollection Method / VolumeCollection TimeReceived Time BloodVenous blood / UnknownVenipuncture / Ktinxbi0806/18/2025 5:55 AM EDT 06/18/2025 6:06 AM EDT Narrative Authorizing ProviderResult TypeResult StatusRamy Luciana BARNES BLOOD ORDERABLES Final ResultPerforming OrganizationAddressCity/State/ZIP CodePhone Number [facility] [address] [place] [address], * (ABNORMAL) Magnesium (06/18/2025 5:55 AM EDT)ComponentValueRef RangeTest MethodAnalysis TimePerformed AtPathologist SignatureMAGNESIUM2.7(H)1.8 - 2.6 mg/dL06/18/2025 6:44 AM [facility] LABORATORYSpecimen (Source)Anatomical Location / LateralityCollection Method / VolumeCollection TimeReceived TimeBloodVenous blood / UnknownVenipuncture / Cabkbql9406/18/2025 5:55 AM EDT1 6:06 AM EDT Narrative Authorizing ProviderResult TypeResult StatusRamy Luciana BARNES BLOOD ORDERABLES Final ResultPerforming OrganizationAddressCity/State/ZIP CodePhone Number [facility] [address] [place] [address], * CBC auto differential (06/18/2025 5:55 AM EDT)ComponentValueRef RangeTest MethodAnalysis TimePerformed AtPathologist SignatureWBC5.54 - 11 x10E9/L 06/18/2025 6:18 AM [facility] LABORATORYRBC Count4.284.1 - 5.7 X10E12/L1 6:18 AM [facility] Owtgcncybw80.613 - 17 g/dL06/18/2025 6:18 AM [facility] TKJUYEJFNMDtwaypvdye28.639 - 50 %06/18/2025 6:18 AM [facility] LEVDWOAQTLHZI9118 - 100 fL06/18/2025 6:18 AM [facility] MIKJOXSTIUZRK27.727 - 34 pg06/18/2025 6:18 AM [facility] XHWNHYOGSFJLMZ40.332 - 36 g/dL06/18/2025 6:18 AM [facility] CZIRNCQMDIOTH89.211.5 - 15 %06/18/2025 6:18 AM [facility] LABORATORYPlatelet Mhwin586311 - 450 X10E9/L1 6:18 AM [facility] LABORATORYMPV8.37 - 12 fL06/18/2025 6:18 AM [facility] LABORATORYNeutrophils %55.5%06/18/2025 6:18 AM [facility] LABORATORYLymphocytes %26.2%06/18/2025 6:18 AM [facility] LABORATORYMonocytes %11.5%06/18/2025 6:18 AM [facility] LABORATORYEosinophils %5.6%06/18/2025 6:18 AM [facility] LABORATORYBasophils %1.2%06/18/2025 6:18 AM [facility] LABORATORYNeutrophils Absolute (A)3.11.5 - 6.6 10*3/uL 06/18/2025 6:18 AM [facility] LABORATORYLymphocytes Absolute 1.41.0 - 3.5 10*3/uL06/18/2025 6:18 AM [facility] Monocytes Absolute0.60.0 - 0.9 10*3/uL06/18/2025 6:18 AM [facility] LABORATORYEosinophils Absolute0.30.0 - 0.4 10*3/uL06/18/2025 6:18 AM [facility] LABORATORYBasophils Absolute0.10.0 - 0.2 10*3/uL 06/18/2025 6:18 AM [facility] LABORATORYDifferential Type AUTOMATED QOEZUCIRCBVP07/27/2025 6:18 AM [facility] LABORATORYSpecimen (Source)Anatomical Location / LateralityCollection Method / VolumeCollection TimeReceived TimeBloodVenous blood / UnknownVenipuncture / Hsruqsd4306/18/2025 5:55 AM EDT1 6:06 AM EDT Narrative Authorizing ProviderResult TypeResult StatusFamatthew BARNES BLOOD ORDERABLES Final ResultPerforming OrganizationAddressCity/State/ZIP CodePhone Number [facility] [address] [place] [address], * (ABNORMAL) Comprehensive metabolic panel (06/18/2025 5:55 AM EDT)Component ValueRef RangeTest MethodAnalysis TimePerformed AtPathologist SignatureSODIUM 321285 - 146 mmol/L1 6:44 AM [facility] POTASSIUM4.43.5 - 5.0 mmol/L1 6:44 AM [facility] OXJAEPVINDHLLIAQQJ345(H)98 - 109 mmol/L1 6:44 AM [facility] LABORATORYCARBON ECZHZJU6911 - 32 mmol/L1 6:44 AM [facility] LABORATORYANION LJB387 - 15 mmol/L1 6:44 AM EDT [facility] LABORATORYBLOOD UREA EUFRGOCE98(H)5 - 27 mg/dL 06/18/2025 6:44 AM [facility] LABORATORYCREATININE2.04(H)0.60 - 1.30 mg/dL06/18/2025 6:44 AM [facility] LABORATORYComment: METHOD TRACEABLE TO IDMS EMCPUESZYPFYOVE192(H)65 - 99 mg/dL06/18/2025 6:44 AM [facility] LABORATORYCALCIUM9.58.5 - 10.5 mg/dL06/18/2025 6:44 AM [facility] LABORATORYTOTAL PROTEIN7.06.0 - 8.0 g/dL 06/18/2025 6:44 AM [facility] LABORATORYALBUMIN3.83.2 - 5.3 g/dL06/18/2025 6:44 AM [facility] LABORATORYALKALINE RBUNTMGGIZR4578 - 130 U/L1 6:44 AM [facility] AIIHSBJAACCNP35<=41 U/L1 6:44 AM [facility] THCENBZEJXVJJ95<=40 U/L1 6:44 AM [facility] LABORATORYBILIRUBIN,TOTAL0.60.3 - 1.2 mg/dL06/18/2025 6:44 AM [facility] LABORATORYEGFR Non-Race Arorvaxzl70(L)>=60 ml/min/1.73sq.m 06/18/2025 6:44 AM [facility] LABORATORYComment: Reported eGFR is based on the CKD-EPI 2020 equation that does not use a race coefficient. Specimen (Source)Anatomical Location / LateralityCollection Method / Volume Collection TimeReceived TimeBloodVenous blood / UnknownVenipuncture / Unknown 06/18/2025 5:55 AM EDT1 6:06 AM EDT Narrative Authorizing ProviderResult TypeResult StatusFamatthew BARNES BLOOD ORDERABLES Final ResultPerforming OrganizationAddressCity/State/ZIP CodePhone Number [facility] [address] [place] [address], * (ABNORMAL) Bedside Glucose *Place/Obtain serum glucose if >500 per glucometer. (06/17/2025 9:11 PM EDT)ComponentValueRef RangeTest MethodAnalysis Time Performed AtPathologist SignatureBedside Glucose (POC)166(H)65 - 99 mg/dL 06/17/2025 9:24 PM [facility] LABORATORYSpecimen (Source)Anatomical Location / LateralityCollection Method / VolumeCollection TimeReceived Time arterial/wbybqlebx49/26/2025 9:11 PM EDT1 9:24 PM EDT Narrative Authorizing ProviderResult TypeResult StatusEhad Monika MDPOINT OF CARE TEST ORDERABLESFinal ResultPerforming OrganizationAddressCity/State/ZIP CodePhone Number [facility] [address] [facility] [place] [address], [place] * Bedside Glucose *Place/Obtain serum glucose if >500 per glucometer. (06/17/2025 4:05 PM EDT)ComponentValueRef RangeTest MethodAnalysis Time Performed AtPathologist SignatureBedside Glucose (POC)9865 - 99 mg/dL 06/17/2025 4:10 PM [facility] LABORATORYSpecimen (Source)Anatomical Location / LateralityCollection Method / VolumeCollection TimeReceived Time arterial//26/2025 4:05 PM EDT1 4:10 PM EDT Narrative Authorizing ProviderResult TypeResult StatusEhad Monika MDPOINT OF CARE TEST ORDERABLESFinal ResultPerforming OrganizationAddressCity/State/ZIP CodePhone Number [facility] [address] [facility] [place] [address], [place] * X-ray chest 1 view (06/17/2025 2:34 [...] on 06/17/2025 3:12 PM Authorizing ProviderResult TypeResult Janet WASSERMAN DIAGNOST[facility] IMAG[facility] ORDERABLESFinal Result * (ABNORMAL) Urinalysis (06/17/2025 2:14 PM EDT)ComponentValueRef RangeTest MethodAnalysis TimePerformed AtPathologist SignatureCOLORYellowYellow 06/17/2025 2:55 PM [facility] LABORATORYTURBIDITYHazy(A)Clear 06/17/2025 2:55 PM [facility] LABORATORYSPECIFIC GRAVITY1.015 1.003 - 1.9150906/17/2025 2:55 PM [facility] LABORATORYNITRITE JuhhzruaZgxbqahb07/26/2025 2:55 PM [facility] PH,URINE6.05.0 - 8. 2:55 PM [facility] LEUKOCYTE ESTERASESmall(A)Vgrefvmf92/26/2025 2:55 PM [facility] DHXBJHOVJDFNAZBRL947 mg/dL(A)Gwrahvrx93/26/2025 2:55 PM [facility] LABORATORYKETONES (URINE)GppuevwwLdziqxxq97/26/2025 2:55 PM [facility] LABORATORYUROBILINOGEN<1.1 eu/dL<1.1 eu/dL 06/17/2025 2:55 PM [facility] LABORATORYBILIRUBIN (URINE) QnebbxqlSiwzvzxf54/26/2025 2:55 PM [facility] BLOOD/HGBLarge(A)Sbnjujdz32/26/2025 2:55 PM [facility] LABORATORYHYALINE CASTS4(H)0 - 2:55 PM [facility] LABORATORYR.B.CELLS>720(H)0 - 2:55 PM [facility] LABORATORYW.B.CELLS11(H)0 - 2:55 PM [facility] LABORATORYGLUCOSE (URINE)XctnybjoBtavwakb47/26/2025 2:55 PM [facility] LABORATORYSpecimen (Source)Anatomical Location / LateralityCollection Method / VolumeCollection TimeReceived TimeUrine (Urine, Indwelling Catheter) 06/17/2025 2:14 PM EDT1 2:18 PM EDT Narrative Authorizing ProviderResult TypeResult StatusAlphonse LEWIS ORDERABLES Final ResultPerforming OrganizationAddressCity/State/ZIP CodePhone Number [facility] [address] [place] [address], [place] [phone] * Urine Culture Urine, Indwelling Catheter (06/17/2025 1:48 PM EDT)Component ValueRef RangeTest MethodAnalysis TimePerformed AtPathologist SignatureCULTURE RESULTSNO GROWTH AT <1000 CFU/mL06/18/2025 12:46 PM [facility] LABORATORYSpecimen (Source)Anatomical Location / LateralityCollection Method / VolumeCollection TimeReceived TimeUrine (Urine, Indwelling Catheter) 06/17/2025 1:48 PM EDT1 2:18 PM EDT Narrative Authorizing ProviderResult TypeResult StatusAlphonse LUCIANOICROBIOLOGY - GENERAL ORDERABLESFinal ResultPerforming OrganizationAddressCity/State/ZIP Code Phone Number [facility] [address] [place] [address], [place] [phone] * Blood culture #2 (06/17/2025 1:20 PM EDT)ComponentValueRef RangeTest Method Analysis TimePerformed AtPathologist SignatureCULTURE RESULTSNO GROWTH 5 DAYS 06/22/2025 2:02 PM [facility] LABORATORYSpecimen (Source) Anatomical Location / LateralityCollection Method / VolumeCollection Time Received TimeBloodVenous blood / UnknownVenipuncture / Gdpgmot3306/17/2025 1:20 PM EDT1 1:49 PM EDT Narrative [facility] - 06/22/2025 2:02 PM EDT Suboptimal volume of blood collected, Results may be affected. Authorizing ProviderResult TypeResult StatusAlphonse LUCIANOICROBIOLOGY - GENERAL ORDERABLESFinal ResultPerforming OrganizationAddressCity/State/ZIP Code Phone Number [facility] [address] [place] [address], [place] [phone] * Blood culture #1 (06/17/2025 1:20 PM EDT)ComponentValueRef RangeTest Method Analysis TimePerformed AtPathologist SignatureCULTURE RESULTSNO GROWTH 5 DAYS 06/22/2025 2:02 PM [facility] LABORATORYSpecimen (Source) Anatomical Location / LateralityCollection Method / VolumeCollection Time Received TimeBloodVenous blood / UnknownVenipuncture / Huxtndt0006/17/2025 1:20 PM EDT1 1:49 PM EDT Narrative [facility] - 06/22/2025 2:02 PM EDT Suboptimal volume of blood collected, Results may be affected. Authorizing ProviderResult TypeResult StatusFaheritage valley health system Abng MDMICROBIOLOGY - GENERAL ORDERABLESFinal ResultPerforming OrganizationAddressCity/State/ZIP Code Phone Number [facility] [address] [place] [address], [place] [phone] * (ABNORMAL) Bedside Glucose *Place/Obtain serum glucose if >500 per glucometer. (06/17/2025 11:24AM EDT)ComponentValueRef RangeTest MethodAnalysis Time Performed AtPathologist SignatureBedside Glucose (POC)146(H)65 - 99 mg/dL 06/17/2025 11:31 AM [facility] LABORATORYSpecimen (Source)Anatomical Location / LateralityCollection Method / VolumeCollection TimeReceived Time arterial/tbivnsczs44/26/2025 11:24 AM EDT1 11:31 AM EDT Narrative Authorizing ProviderResult TypeResult StatusEhad Monika MDPOINT OF CARE TEST ORDERABLESFinal ResultPerforming OrganizationAddressCity/State/ZIP CodePhone Number [facility] [address] [place] [address], [place] * (ABNORMAL) Bedside Glucose *Place/Obtain serum glucose if >500 per glucometer. (06/17/2025 7:44 AM EDT)ComponentValueRef RangeTest MethodAnalysis Time Performed AtPathologist SignatureBedside Glucose (POC)163(H)65 - 99 mg/dL 06/17/2025 7:49 AM [facility] LABORATORYSpecimen (Source)Anatomical Location / LateralityCollection Method / VolumeCollection TimeReceived Time arterial/jvgymnrkk83/26/2025 7:44 AM EDT1 7:49 AM EDT Narrative Authorizing ProviderResult TypeResult StatusEhad Monika MDPOINT OF CARE TEST ORDERABLESFinal ResultPerforming OrganizationAddressCity/State/ZIP CodePhone Number [facility] [address] [place] [address], [place] * Ionized calcium (06/17/2025 6:08 AM EDT)ComponentValueRef RangeTest Method Analysis TimePerformed AtPathologist SignatureIONIZED CALCIUM - ICAN5.04.5 - 5.3 mg/dL06/17/2025 6:51 AM [facility] LABORATORYSpecimen (Source)Anatomical Location / LateralityCollection Method / VolumeCollection TimeReceived TimeBloodVenous blood / UnknownVenipuncture / Icyhqnk7306/17/2025 6:08 AM EDT1 6:43 AM EDT Narrative Authorizing ProviderResult TypeResult StatusRampreston BARNES BLOOD ORDERABLES Final ResultPerforming OrganizationAddressCity/State/ZIP CodePhone Number [facility] [address] [place] [address], * Phosphorus (06/17/2025 6:08 AM EDT)ComponentValueRef RangeTest MethodAnalysis TimePerformed AtPathologist SignaturePHOSPHORUS4.72.4 - 4.9 mg/dL06/17/2025 7:16 AM [facility] LABORATORYSpecimen (Source)Anatomical Location / LateralityCollection Method / VolumeCollection TimeReceived Time BloodVenous blood / UnknownVenipuncture / Fshuzhf0706/17/2025 6:08 AM EDT 06/17/2025 6:42 AM EDT Narrative Authorizing ProviderResult TypeResult StatusRampreston BARNES BLOOD ORDERABLES Final ResultPerforming OrganizationAddressCity/State/ZIP CodePhone Number [facility] [address] [place] [address], * Magnesium (06/17/2025 6:08 AM EDT)ComponentValueRef RangeTest MethodAnalysis TimePerformed AtPathologist SignatureMAGNESIUM2.61.8 - 2.6 mg/dL06/17/2025 7:16 AM [facility] LABORATORYSpecimen (Source)Anatomical Location / LateralityCollection Method / VolumeCollection TimeReceived Time BloodVenous blood / UnknownVenipuncture / Fdctalu9006/17/2025 6:08 AM EDT 06/17/2025 6:42 AM EDT Narrative Authorizing ProviderResult TypeResult StatusRamy Luciana BARNES BLOOD ORDERABLES Final ResultPerforming OrganizationAddressCity/State/ZIP CodePhone Number [facility] [address] [place] [address], * CBC auto differential (06/17/2025 6:08 AM EDT)ComponentValueRef RangeTest MethodAnalysis TimePerformed AtPathologist SignatureWBC5.54 - 11 x10E9/L 06/17/2025 6:58 AM [facility] LABORATORYRBC Count4.404.1 - 5.7 X10E12/L1 6:58 AM [facility] Uxnlusqqwk47.113 - 17 g/dL06/17/2025 6:58 AM [facility] KHSJGBVAPELcxinlckmo99.039 - 50 %06/17/2025 6:58 AM [facility] XIJTARYEONRSF3516 - 100 fL06/17/2025 6:58 AM [facility] PYJUEVMRQAUOT42.127 - 34 pg06/17/2025 6:58 AM [facility] MPABIYANKKVFUG63.432 - 36 g/dL06/17/2025 6:58 AM [facility] UGUUUGLFGXCLS26.111.5 - 15 %06/17/2025 6:58 AM [facility] LABORATORYPlatelet Onbnu011567 - 450 X10E9/L1 6:58 AM EDT [facility]MPV8.67 - 12 fL06/17/2025 6:58 AM [facility] LABORATORYNeutrophils %56.4%06/17/2025 6:58 AM [facility] LABORATORYLymphocytes %27.1%06/17/2025 6:58 AM [facility] LABORATORYMonocytes %10.8%06/17/2025 6:58 AM [facility] LABORATORYEosinophils %4.9%06/17/2025 6:58 AM [facility] LABORATORYBasophils %0.8%06/17/2025 6:58 AM [facility] LABORATORYNeutrophils Absolute (A)3.11.5 - 6.6 10*3/uL 06/17/2025 6:58 AM [facility] LABORATORYLymphocytes Absolute 1.51.0 - 3.5 10*3/uL06/17/2025 6:58 AM [facility] Monocytes Absolute0.60.0 - 0.9 10*3/uL06/17/2025 6:58 AM [facility] LABORATORYEosinophils Absolute0.30.0 - 0.4 10*3/uL06/17/2025 6:58 AM [facility] LABORATORYBasophils Absolute0.00.0 - 0.2 10*3/uL 06/17/2025 6:58 AM [facility] LABORATORYDifferential Type AUTOMATED SAQDQJBRHIDB14/26/2025 6:58 AM [facility] LABORATORYSpecimen (Source)Anatomical Location / LateralityCollection Method / VolumeCollection TimeReceived TimeBloodVenous blood / UnknownVenipuncture / Fymyvjh1406/17/2025 6:08 AM EDT1 6:42 AM EDT Narrative Authorizing ProviderResult TypeResult StatusFahpipe BARNES BLOOD ORDERABLES Final ResultPerforming OrganizationAddressCity/State/ZIP CodePhone Number [facility] [address] [place] [address], [place] [phone] * (ABNORMAL) Comprehensive metabolic panel (06/17/2025 6:08 AM EDT)Component ValueRef RangeTest MethodAnalysis TimePerformed AtPathologist SignatureSODIUM 243172 - 146 mmol/L1 7:16 AM [facility] POTASSIUM4.33.5 - 5.0 mmol/L1 7:16 AM [facility] ASPZAIPZOLTZHUTLBD033(H)98 - 109 mmol/L1 7:16 AM [facility] LABORATORYCARBON REYMCUB6054 - 32 mmol/L1 7:16 AM [facility] LABORATORYANION GAP55 - 15 mmol/L1 7:16 AM [facility] LABORATORYBLOOD UREA CRJLFRNX69(H)5 - 27 mg/dL 06/17/2025 7:16 AM [facility] LABORATORYCREATININE1.99(H)0.60 - 1.30 mg/dL06/17/2025 7:16 AM [facility] LABORATORYComment: METHOD TRACEABLE TO IDMS DHTJOKSKERYMWUC341(H)65 - 99 mg/dL06/17/2025 7:16 AM [facility] LABORATORYCALCIUM9.48.5 - 10.5 mg/dL06/17/2025 7:16 AM [facility] LABORATORYTOTAL PROTEIN7.06.0 - 8.0 g/dL 06/17/2025 7:16 AM [facility] LABORATORYALBUMIN3.73.2 - 5.3 g/dL06/17/2025 7:16 AM [facility] LABORATORYALKALINE YSXCLQGKVIM8727 - 130 U/L1 7:16 AM [facility] QUVOHSWDAXIMC82<=41 U/L1 7:16 AM [facility] CPYIQFRZEPYBU07<=40 U/L1 7:16 AM [facility] LABORATORYBILIRUBIN,TOTAL0.60.3 - 1.2 mg/dL06/17/2025 7:16 AM [facility] LABORATORYEGFR Non-Race Fiwdypoaw73(L)>=60 ml/min/1.73sq.m 06/17/2025 7:16 AM [facility] LABORATORYComment: Reported eGFR is based on the CKD-EPI 2020 equation that does not use a race coefficient. Specimen (Source)Anatomical Location / LateralityCollection Method / Volume Collection TimeReceived TimeBloodVenous blood / UnknownVenipuncture / Unknown 06/17/2025 6:08 AM EDT1 6:42 AM EDT Narrative Authorizing ProviderResult TypeResult StatusAlphonse BARNES BLOOD ORDERABLES Final ResultPerforming OrganizationAddressCity/State/ZIP CodePhone Number [facility] [address] [place] [address], [place] [phone] * (ABNORMAL) Bedside Glucose *Place/Obtain serum glucose if >500 per glucometer. (06/16/2025 9:06 PM EDT)ComponentValueRef RangeTest MethodAnalysis Time Performed AtPathologist SignatureBedside Glucose (POC)230(H)65 - 99 mg/dL 06/16/2025 9:08 PM [facility] LABORATORYSpecimen (Source)Anatomical Location / LateralityCollection Method / VolumeCollection TimeReceived Time arterial/pncupinah45/25/2025 9:06 PM EDT1 9:08 PM EDT Narrative Authorizing ProviderResult TypeResult StatusEhad Monika MDPOINT OF CARE TEST ORDERABLESFinal ResultPerforming OrganizationAddressCity/State/ZIP CodePhone Number [facility] [address] [place] [address], [place] * (ABNORMAL) Bedside Glucose *Place/Obtain serum glucose if >500 per glucometer. (06/16/2025 3:58 PM EDT)ComponentValueRef RangeTest MethodAnalysis Time Performed AtPathologist SignatureBedside Glucose (POC)145(H)65 - 99 mg/dL 06/16/2025 4:03 PM [facility] LABORATORYSpecimen (Source)Anatomical Location / LateralityCollection Method / VolumeCollection TimeReceived Time arterial/yahxdqssq22/25/2025 3:58 PM EDT1 4:03 PM EDT Narrative Authorizing ProviderResult TypeResult StatusEhad Monika MDPOINT OF CARE TEST ORDERABLESFinal ResultPerforming OrganizationAddressCity/State/ZIP CodePhone Number [facility] [address] [place] [address], [place] * (ABNORMAL) Bedside Glucose *Place/Obtain serum glucose if >500 per glucometer. (06/16/2025 12:36PM EDT)ComponentValueRef RangeTest MethodAnalysis Time Performed AtPathologist SignatureBedside Glucose (POC)154(H)65 - 99 mg/dL 06/16/2025 12:41 PM [facility] LABORATORYSpecimen (Source)Anatomical Location / LateralityCollection Method / VolumeCollection TimeReceived Time arterial/viqnhcxdd91/25/2025 12:36 PM EDT1 12:41 PM EDT Narrative Authorizing ProviderResult TypeResult StatusEhad Monika MDPOINT OF CARE TEST ORDERABLESFinal ResultPerforming OrganizationAddressCity/State/ZIP CodePhone Number [facility] [address] [place] [address], [place] * (ABNORMAL) Bedside Glucose *Place/Obtain serum glucose if >500 per glucometer. (06/16/2025 7:55 AM EDT)ComponentValueRef RangeTest MethodAnalysis Time Performed AtPathologist SignatureBedside Glucose (POC)162(H)65 - 99 mg/dL 06/16/2025 8:01 AM [facility] LABORATORYSpecimen (Source)Anatomical Location / LateralityCollection Method / VolumeCollection TimeReceived Time arterial/naklhkxdr43/25/2025 7:55 AM EDT1 8:01 AM EDT Narrative Authorizing ProviderResult TypeResult StatusEhad Monika MDPOINT OF CARE TEST ORDERABLESFinal ResultPerforming OrganizationAddressty/State/ZIP CodePhone Number [facility] [address] [place] [address], [place] * Ionized calcium (06/16/2025 5:48 AM EDT)ComponentValueRef RangeTest Method Analysis TimePerformed AtPathologist SignatureIONIZED CALCIUM - ICAN4.64.5 - 5.3 mg/dL06/16/2025 10:18 AM [facility] MAIN LABSpecimen (Source) Anatomical Location / LateralityCollection Method / VolumeCollection Time Received TimeBloodVenous blood / UnknownVenipuncture / Lpqqkmu4506/16/2025 5:48 AM EDT1 6:24 AM EDT Narrative Authorizing ProviderResult TypeResult StatusRamy Luciana BARNES BLOOD ORDERABLES Final ResultPerforming OrganizationAddressCity/State/ZIP CodePhone Number [facility] [address] [place] [address], [place] * (ABNORMAL) Phosphorus (06/16/2025 5:48 AM EDT)ComponentValueRef RangeTest MethodAnalysis TimePerformed AtPathologist SignaturePHOSPHORUS5.1(H)2.4 - 4.9 mg/dL06/16/2025 7:00 AM [facility] LABORATORYComment:R- Specimen slightly hemolyzed, results increasedSpecimen (Source)Anatomical Location / LateralityCollection Method / VolumeCollection TimeReceived Time BloodVenous blood / UnknownVenipuncture / Apkafay5206/16/2025 5:48 AM EDT 06/16/2025 6:39 AM EDT Narrative Authorizing ProviderResult TypeResult StatusRamy Luciana Plasencia MDLAB BLOOD ORDERABLES Final ResultPerforming OrganizationAddressCity/State/ZIP CodePhone Number [facility] [address] [place] [address], * Magnesium (06/16/2025 5:48 AM EDT)ComponentValueRef RangeTest MethodAnalysis TimePerformed AtPathologist SignatureMAGNESIUM2.61.8 - 2.6 mg/dL06/16/2025 7:00 AM [facility] LABORATORYSpecimen (Source)Anatomical Location / LateralityCollection Method / VolumeCollection TimeReceived Time BloodVenous blood / UnknownVenipuncture / Qxzkndf3206/16/2025 5:48 AM EDT 06/16/2025 6:39 AM EDT Narrative Authorizing ProviderResult TypeResult StatusRamy Luciana Plasencia MDLAB BLOOD ORDERABLES Final ResultPerforming OrganizationAddressCity/State/ZIP CodePhone Number [facility] [address] [place] [address], * (ABNORMAL) CBC auto differential (06/16/2025 5:48 AM EDT)ComponentValueRef RangeTest MethodAnalysis TimePerformed AtPathologist SignatureWBC5.54 - 11 x10E9/L1 6:38 AM [facility] LABORATORYRBC Count4.17 4.1 - 5.7 X10E12/L1 6:38 AM [facility] Dphvpafixw18.213 - 17 g/dL06/16/2025 6:38 AM [facility] PKEBZEPTPYJrnpqradmy49.8(L)39 - 50 %06/16/2025 6:38 AM [facility] DDGVOBXLLIXZV7877 - 100 fL06/16/2025 6:38 AM [facility] BVYWRSPGVKHDF01.527 - 34 pg06/16/2025 6:38 AM [facility] UDRFFDOKDVJQIA03.932 - 36 g/dL06/16/2025 6:38 AM [facility] TDZEKZZUABRXU15.411.5 - 15 %06/16/2025 6:38 AM [facility] LABORATORYPlatelet Szyjy058690 - 450 X10E9/L1 6:38 AM EDT [facility]ORYMPV8.67 - 12 fL06/16/2025 6:38 AM [facility] LABORATORYNeutrophils %56.3%06/16/2025 6:38 AM [facility] LABORATORYLymphocytes %27.7%06/16/2025 6:38 AM [facility] LABORATORYMonocytes %10.8%06/16/2025 6:38 AM [facility] LABORATORYEosinophils %4.1%06/16/2025 6:38 AM [facility] LABORATORYBasophils %1.1%06/16/2025 6:38 AM [facility] LABORATORYNeutrophils Absolute (A)3.11.5 - 6.6 10*3/uL 06/16/2025 6:38 AM [facility] LABORATORYLymphocytes Absolute 1.51.0 - 3.5 10*3/uL06/16/2025 6:38 AM [facility] Monocytes Absolute0.60.0 - 0.9 10*3/uL06/16/2025 6:38 AM [facility] LABORATORYEosinophils Absolute0.20.0 - 0.4 10*3/uL06/16/2025 6:38 AM [facility] LABORATORYBasophils Absolute0.10.0 - 0.2 10*3/uL 06/16/2025 6:38 AM [facility] LABORATORYDifferential Type AUTOMATED MMPDCRPJCEXZ58/25/2025 6:38 AM [facility] LABORATORYSpecimen (Source)Anatomical Location / LateralityCollection Method / VolumeCollection TimeReceived TimeBloodVenous blood / UnknownVenipuncture / Mocnwyq9506/16/2025 5:48 AM EDT1 6:22 AM EDT Narrative Authorizing ProviderResult TypeResult StatusFamatthew BARNES BLOOD ORDERABLES Final ResultPerforming OrganizationAddressCity/State/ZIP CodePhone Number [facility] [address] [place] [address], * (ABNORMAL) Comprehensive metabolic panel (06/16/2025 5:48 AM EDT)Component ValueRef RangeTest MethodAnalysis TimePerformed AtPathologist SignatureSODIUM 732639 - 146 mmol/L1 7:00 AM [facility] POTASSIUM4.83.5 - 5.0 mmol/L1 7:00 AM [facility] SFPGCFLBMCMZHBRRFA998(H)98 - 109 mmol/L1 7:00 AM [facility] LABORATORYCARBON XFJCEWG3361 - 32 mmol/L1 7:00 AM [facility] LABORATORYANION ELY815 - 15 mmol/L1 7:00 AM EDT [facility]ORYBLOOD UREA AQSXWMDZ66(H)5 - 27 mg/dL 06/16/2025 7:00 AM [facility] LABORATORYCREATININE1.93(H)0.60 - 1.30 mg/dL06/16/2025 7:00 AM [facility] LABORATORYComment: METHOD TRACEABLE TO IDMS JNCMXAWNCORAILB950(H)65 - 99 mg/dL06/16/2025 7:00 AM [facility] LABORATORYCALCIUM9.38.5 - 10.5 mg/dL06/16/2025 7:00 AM [facility] LABORATORYTOTAL PROTEIN6.96.0 - 8.0 g/dL 06/16/2025 7:00 AM [facility] LABORATORYALBUMIN3.73.2 - 5.3 g/dL06/16/2025 7:00 AM [facility] LABORATORYALKALINE EVSFUNKCCWQ3737 - 130 U/L1 7:00 AM [facility] QUSCTKNUTKUXU57<=41 U/L1 7:00 AM [facility] LJBERZRSVWNCA93<=40 U/L1 7:00 AM [facility] LABORATORYBILIRUBIN,TOTAL0.50.3 - 1.2 mg/dL06/16/2025 7:00 AM [facility] LABORATORYEGFR Non-Race Thhgplvhx09(L)>=60 ml/min/1.73sq.m 06/16/2025 7:00 AM [facility] LABORATORYComment: Reported eGFR is based on the CKD-EPI 2020 equation that does not use a race coefficient. Specimen (Source)Anatomical Location / LateralityCollection Method / Volume Collection TimeReceived TimeBloodVenous blood / UnknownVenipuncture / Unknown 06/16/2025 5:48 AM EDT1 6:39 AM EDT Narrative Authorizing ProviderResult TypeResult StatusFamatthew BARNES BLOOD ORDERABLES Final ResultPerforming OrganizationAddressCity/State/ZIP CodePhone Number [facility] [address] [place] [address], * (ABNORMAL) Bedside Glucose *Place/Obtain serum glucose if >500 per glucometer. (06/15/2025 8:58 PM EDT)ComponentValueRef RangeTest MethodAnalysis Time Performed AtPathologist SignatureBedside Glucose (POC)193(H)65 - 99 mg/dL 06/15/2025 9:03 PM [facility] LABORATORYSpecimen (Source)Anatomical Location / LateralityCollection Method / VolumeCollection TimeReceived Time arterial/ojyzujptt75/24/2025 8:58 PM EDT1 9:03 PM EDT Narrative Authorizing ProviderResult TypeResult StatusEhad Monika MDPOINT OF CARE TEST ORDERABLESFinal ResultPerforming OrganizationAddressCity/State/ZIP CodePhone Number [facility] [address] [place] [address], [place] * (ABNORMAL) Sodium (06/15/2025 5:52 PM EDT)ComponentValueRef RangeTest Method Analysis TimePerformed AtPathologist ZubsforunOMATUR138(H)134 - 146 mmol/L 06/15/2025 7:11 PM [facility] LABORATORYSpecimen (Source) Anatomical Location / LateralityCollection Method / VolumeCollection Time Received TimeBloodVenous blood / UnknownVenipuncture / Irbgpak2006/15/2025 5:52 PM EDT1 6:31 PM EDT Narrative Authorizing ProviderResult TypeResult StatusVidhit Yuko DOLAB BLOOD ORDERABLES Final ResultPerforming OrganizationAddressCity/State/ZIP CodePhone Number [facility] [address] [place] [address], [place] [phone] * Potassium (06/15/2025 5:52 PM EDT)ComponentValueRef RangeTest MethodAnalysis TimePerformed AtPathologist SignaturePOTASSIUM4.53.5 - 5.0 mmol/L1 7:11 PM [facility] LABORATORYSpecimen (Source)Anatomical Location / LateralityCollection Method / VolumeCollection TimeReceived Time BloodVenous blood / UnknownVenipuncture / Ofbhvqy9106/15/2025 5:52 PM EDT 06/15/2025 6:31 PM EDT Narrative Authorizing ProviderResult TypeResult StatusAlphonse BARNES BLOOD ORDERABLES Final ResultPerforming OrganizationAddressCity/State/ZIP CodePhone Number [facility] [address] [place] [address], [place] [phone] * (ABNORMAL) Bedside Glucose *Place/Obtain serum glucose if >500 per glucometer. (06/15/2025 4:04 PM EDT)ComponentValueRef RangeTest MethodAnalysis Time Performed AtPathologist SignatureBedside Glucose (POC)227(H)65 - 99 mg/dL 06/15/2025 4:10 PM [facility]TTO[facility] LABORATORYSpecimen (Source)Anatomical Location / LateralityCollection Method / VolumeCollection TimeReceived Time arterial/ygrgykbkc62/24/2025 4:04 PM EDT1 4:10 PM EDT Narrative Authorizing ProviderResult TypeResult StatusEhad Monika MDPOINT OF CARE TEST ORDERABLESFinal ResultPerforming OrganizationAddressCity/State/ZIP CodePhone Number [facility] [address] [place] [address], [place] * Vas venous duplex lwr bilateral [...] number beside their name. Procedure Note Sen Rice DO - 06/15/2025 Right: Limited visualization of [...] besidetheir name. Authorizing ProviderResult TypeResult StatusFahham Bang [facility] VASCULAR ORDERABLESFinal Result * (ABNORMAL) Bedside Glucose *Place/Obtain serum glucose if >500 per glucometer. (06/15/2025 12:48PM EDT)ComponentValueRef RangeTest MethodAnalysis Time Performed AtPathologist SignatureBedside Glucose (POC)231(H)65 - 99 mg/dL 06/15/2025 12:53 PM [facility] LABORATORYSpecimen (Source)Anatomical Location / LateralityCollection Method / VolumeCollection TimeReceived Time arterial/mhikvjacr46/24/2025 12:48 PM EDT1 12:53 PM EDT Narrative Authorizing ProviderResult TypeResult StatusEhad Monika MDPOINT OF CARE TEST ORDERABLESFinal ResultPerforming OrganizationAddressCity/State/ZIP CodePhone Number [facility] [address] [place] [address], * NM renogram with lasix (06/15/2025 12:38 [...] on 06/15/2025 4:29 PM Authorizing ProviderResult TypeResult StatusRebecca Bob [facility] ORDERABLESFinal Result * (ABNORMAL) Bedside Glucose *Place/Obtain serum glucose if >500 per glucometer. (06/15/2025 7:59 AM EDT)ComponentValueRef RangeTest MethodAnalysis Time Performed AtPathologist SignatureBedside Glucose (POC)146(H)65 - 99 mg/dL 06/15/2025 8:11 AM [facility] LABORATORYSpecimen (Source)Anatomical Location / LateralityCollection Method / VolumeCollection TimeReceived Time arterial/vqyaazkcz55/24/2025 7:59 AM EDT1 8:11 AM EDT Narrative Authorizing ProviderResult TypeResult StatusEhad Monika MDPOINT OF CARE TEST ORDERABLESFinal ResultPerforming OrganizationAddressCity/State/ZIP CodePhone Number [facility] [address] [place] [address], [place] * Ionized calcium (06/15/2025 6:59 AM EDT)ComponentValueRef RangeTest Method Analysis TimePerformed AtPathologist SignatureIONIZED CALCIUM - ICAN4.74.5 - 5.3 mg/dL06/15/2025 7:50 AM [facility] LABORATORYSpecimen (Source)Anatomical Location / LateralityCollection Method / VolumeCollection TimeReceived TimeBloodVenous blood / UnknownVenipuncture / Riflsst3706/15/2025 6:59 AM EDT1 7:23 AM EDT Narrative Authorizing ProviderResult TypeResult StatusRamy Luciana BARNES BLOOD ORDERABLES Final ResultPerforming OrganizationAddressCity/State/ZIP CodePhone Number [facility] [address] [place] [address], [place] [phone] * Phosphorus (06/15/2025 6:59 AM EDT)ComponentValueRef RangeTest MethodAnalysis TimePerformed AtPathologist SignaturePHOSPHORUS4.52.4 - 4.9 mg/dL06/15/2025 7:58 AM [facility] LABORATORYSpecimen (Source)Anatomical Location / LateralityCollection Method / VolumeCollection TimeReceived Time BloodVenous blood / UnknownVenipuncture / Joftoks7406/15/2025 6:59 AM EDT 06/15/2025 7:23 AM EDT Narrative Authorizing ProviderResult TypeResult StatusRamy Luciana BARNES BLOOD ORDERABLES Final ResultPerforming OrganizationAddressCity/State/ZIP CodePhone Number [facility] [address] [place] [address], [place] [phone] * (ABNORMAL) Magnesium (06/15/2025 6:59 AM EDT)ComponentValueRef RangeTest MethodAnalysis TimePerformed AtPathologist SignatureMAGNESIUM2.8(H)1.8 - 2.6 mg/dL06/15/2025 7:58 AM [facility] LABORATORYSpecimen (Source)Anatomical Location / LateralityCollection Method / VolumeCollection TimeReceived TimeBloodVenous blood / UnknownVenipuncture / Pzfmtrk9306/15/2025 6:59 AM EDT1 7:23 AM EDT Narrative Authorizing ProviderResult TypeResult StatusRamy Luciana BARNES BLOOD ORDERABLES Final ResultPerforming OrganizationAddressCity/State/ZIP CodePhone Number [facility] [address] [place] [address], * (ABNORMAL) CBC auto differential (06/15/2025 6:59 AM EDT)ComponentValueRef RangeTest MethodAnalysis TimePerformed AtPathologist SignatureWBC4.24 - 11 x10E9/L1 7:37 AM [facility] LABORATORYRBC Count4.13 4.1 - 5.7 X10E12/L1 7:37 AM [facility] Dxrqfbpows23.113 - 17 g/dL06/15/2025 7:37 AM [facility] VYDYWNHRKTZqgpkkqnsg53.5(L)39 - 50 %06/15/2025 7:37 AM [facility] JKJFQFRZZMPGX2465 - 100 fL06/15/2025 7:37 AM [facility] RUPQDRXTZOSHU65.627 - 34 pg06/15/2025 7:37 AM [facility] BJFHARBVPGSALG60.932 - 36 g/dL06/15/2025 7:37 AM [facility] KZXJLVEFLLFLK06.111.5 - 15 %06/15/2025 7:37 AM [facility] LABORATORYPlatelet Owuij813680 - 450 X10E9/L1 7:37 AM EDT [facility]ORYMPV8.67 - 12 fL06/15/2025 7:37 AM [facility] LABORATORYNeutrophils %51.2%06/15/2025 7:37 AM [facility] LABORATORYLymphocytes %33.5%06/15/2025 7:37 AM [facility] LABORATORYMonocytes %9.5%06/15/2025 7:37 AM [facility] LABORATORYEosinophils %4.8%06/15/2025 7:37 AM [facility] LABORATORYBasophils %1.0%06/15/2025 7:37 AM [facility] LABORATORYNeutrophils Absolute (A)2.21.5 - 6.6 10*3/uL 06/15/2025 7:37 AM [facility] LABORATORYLymphocytes Absolute 1.41.0 - 3.5 10*3/uL06/15/2025 7:37 AM [facility] Monocytes Absolute0.40.0 - 0.9 10*3/uL06/15/2025 7:37 AM [facility] LABORATORYEosinophils Absolute0.20.0 - 0.4 10*3/uL06/15/2025 7:37 AM [facility] LABORATORYBasophils Absolute0.00.0 - 0.2 10*3/uL 06/15/2025 7:37 AM [facility] LABORATORYDifferential Type AUTOMATED BGQVYXGOYNDB84/24/2025 7:37 AM [facility] LABORATORYSpecimen (Source)Anatomical Location / LateralityCollection Method / VolumeCollection TimeReceived TimeBloodVenous blood / UnknownVenipuncture / Tylecfh1706/15/2025 6:59 AM EDT1 7:24 AM EDT Narrative Authorizing ProviderResult TypeResult StatusFapipe BARNES BLOOD ORDERABLES Final ResultPerforming OrganizationAddressCity/State/ZIP CodePhone Number [facility] [address] [place] [address], * (ABNORMAL) Comprehensive metabolic panel (06/15/2025 6:59 AM EDT)Component ValueRef RangeTest MethodAnalysis TimePerformed AtPathologist SignatureSODIUM 148(H)134 - 146 mmol/L1 7:58 AM [facility] LABORATORYPOTASSIUM4.43.5 - 5.0 mmol/L1 7:58 AM [facility] MXZKVWINSOMPUCGMER713(H)98 - 109 mmol/L1 7:58 AM [facility] LABORATORYCARBON [id number] - 32 mmol/L1 7:58 AM [place] [facility]ORYANION GAP85 - 15 mmol/L1 7:58 AM [facility] LABORATORYBLOOD UREA BFGHXQRH74(H)5 - 27 mg/dL 06/15/2025 7:58 AM [facility] LABORATORYCREATININE1.81(H)0.60 - 1.30 mg/dL06/15/2025 7:58 AM [facility] LABORATORYComment: METHOD TRACEABLE TO IDMS [id number](H)65 - 99 mg/dL06/15/2025 7:58 AM [facility] LABORATORYCALCIUM9.18.5 - 10.5 mg/dL06/15/2025 7:58 AM [facility] LABORATORYTOTAL PROTEIN6.66.0 - 8.0 g/dL 06/15/2025 7:58 AM [facility] LABORATORYALBUMIN3.63.2 - 5.3 g/dL06/15/2025 7:58 AM [facility] LABORATORYALKALINE GPBYTUNOFHK2734 - 130 U/L1 7:58 AM [facility] EFCMOXVOWDIQD45<=41 U/L1 7:58 AM [facility] JKBLYPZZSRWZJ05<=40 U/L1 7:58 AM [facility] LABORATORYBILIRUBIN,TOTAL0.50.3 - 1.2 mg/dL06/15/2025 7:58 AM [facility] LABORATORYEGFR Non-Race Wdqczqsbu69(L)>=60 ml/min/1.73sq.m 06/15/2025 7:58 AM [facility] LABORATORYComment: Reported eGFR is based on the CKD-EPI 2020 equation that does not use a race coefficient. Specimen (Source)Anatomical Location / LateralityCollection Method / Volume Collection TimeReceived TimeBloodVenous blood / UnknownVenipuncture / Unknown 06/15/2025 6:59 AM EDT1 7:23 AM EDT Narrative Authorizing ProviderResult TypeResult Janet BARNES BLOOD ORDERABLES Final ResultPerforming OrganizationAddressty/State/ZIP CodePhone Number [facility] [address] [place] [address], [place] [phone] * (ABNORMAL) Bedside Glucose *Place/Obtain serum glucose if >500 per glucometer. (06/14/2025 9:02 PM EDT)ComponentValueRef RangeTest MethodAnalysis Time Performed AtPathologist SignatureBedside Glucose (POC)107(H)65 - 99 mg/dL 06/14/2025 9:10 PM [facility] LABORATORYSpecimen (Source)Anatomical Location / LateralityCollection Method / VolumeCollection TimeReceived Time arterial/ynqissxgg97/23/2025 9:02 PM EDT1 9:10 PM EDT Narrative Authorizing ProviderResult TypeResult StatusEhad Monika MDPOINT OF CARE TEST ORDERABLESFinal ResultPerforming OrganizationAddressCity/State/ZIP CodePhone Number [facility] [address] [place] [address], [place] * (ABNORMAL) Bedside Glucose *Place/Obtain serum glucose if >500 per glucometer. (06/14/2025 4:32 PM EDT)ComponentValueRef RangeTest MethodAnalysis Time Performed AtPathologist SignatureBedside Glucose (POC)145(H)65 - 99 mg/dL 06/14/2025 4:33 PM [facility] LABORATORYSpecimen (Source)Anatomical Location / LateralityCollection Method / VolumeCollection TimeReceived Time arterial/ogmchjefv22/23/2025 4:32 PM EDT1 4:33 PM EDT Narrative Authorizing ProviderResult TypeResult StatusEhad Monika MDPOINT OF CARE TEST ORDERABLESFinal ResultPerforming OrganizationAddLehigh [facility]/State/ZIP CodePhone Number [facility] [address] [place] [address], [place] * Fluoroscopy swallow motility function (06/14/2025 [...] on 06/14/2025 2:38 PM Authorizing ProviderResult TypeResult StatusVieh Josué MDIMG FLUOROSCOPY ORDERABLESFinal Result * (ABNORMAL) Bedside Glucose *Place/Obtain serum glucose if >500 per glucometer. (06/14/2025 11:45AM EDT)ComponentValueRef RangeTest MethodAnalysis Time Performed AtPathologist SignatureBedside Glucose (POC)210(H)65 - 99 mg/dL 06/14/2025 11:46 AM [facility] LABORATORYSpecimen (Source)Anatomical Location / LateralityCollection Method / VolumeCollection TimeReceived Time arterial/wmgisbvpw94/23/2025 11:45 AM EDT1 11:46 AM EDT Narrative Authorizing ProviderResult TypeResult StatusEhad Monika MDPOINT OF CARE TEST ORDERABLESFinal ResultPerforming OrganizationAddressty/State/ZIP CodePhone [facility]AT[facility] [address] [place] [phone], * (ABNORMAL) Bedside Glucose *Place/Obtain serum glucose if >500 per glucometer. (06/14/2025 9:02 AM EDT)ComponentValueRef RangeTest MethodAnalysis Time Performed AtPathologist SignatureBedside Glucose (POC)156(H)65 - 99 mg/dL 06/14/2025 9:03 AM [facility] LABORATORYSpecimen (Source)Anatomical Location / LateralityCollection Method / VolumeCollection TimeReceived Time arterial//23/2025 9:02 AM EDT1 9:03 AM EDT Narrative Authorizing ProviderResult TypeResult StatusEhad Monika MDPOINT OF CARE TEST ORDERABLESFinal ResultPerforming OrganizationAddressC[facility] Clinic Foundation/State/ZIP CodePhone Number [facility] [address] [place] [phone], [place] * Ionized calcium (06/14/2025 6:25 AM EDT)ComponentValueRef RangeTest Method Analysis TimePerformed AtPathologist SignatureIONIZED CALCIUM - ICAN4.94.5 - 5.3 mg/dL06/14/2025 7:24 AM [facility] LABORATORYSpecimen (Source)Anatomical Location / LateralityCollection Method / VolumeCollection TimeReceived TimeBloodVenous blood / UnknownVenipuncture / Ccldlfg19/ 6:25 AM EDT1 7:08 AM EDT Narrative Authorizing ProviderResult TypeResult StatusRamy Luciana BARNES BLOOD ORDERABLES Final ResultPerforming OrganizationAddressCity/State/ZIP CodePhone Number [facility] [address] [place] [address], * Phosphorus (06/14/2025 6:25 AM EDT)ComponentValueRef RangeTest MethodAnalysis TimePerformed AtPathologist SignaturePHOSPHORUS4.12.4 - 4.9 mg/dL06/14/2025 7:41 AM [facility] LABORATORYComment:R-Specimen moderately hemolyzed, results increasedSpecimen (Source)Anatomical Location / Laterality Collection Method / VolumeCollection TimeReceived TimeBloodVenous blood / UnknownVenipuncture / Yxsdwre8806/14/2025 6:25 AM EDT1 7:04 AM EDT Narrative Authorizing ProviderResult TypeResult StatusRamy Luciana Plasencia MDLAB BLOOD ORDERABLES Final ResultPerforming OrganizationAddressCity/State/ZIP CodePhone Number [facility] [address] [place] [address], * Magnesium (06/14/2025 6:25 AM EDT)ComponentValueRef RangeTest MethodAnalysis TimePerformed AtPathologist SignatureMAGNESIUM2.51.8 - 2.6 mg/dL06/14/2025 7:41 AM [facility] LABORATORYSpecimen (Source)Anatomical Location / LateralityCollection Method / VolumeCollection TimeReceived Time BloodVenous blood / UnknownVenipuncture / Cweurme1206/14/2025 6:25 AM EDT 06/14/2025 7:04 AM EDT Narrative Authorizing ProviderResult TypeResult StatusRamy Luciana Plasencia MDLAB BLOOD ORDERABLES Final ResultPerforming OrganizationAddressCity/State/ZIP CodePhone Number [facility] [address] [place] [address], * CBC auto differential (06/14/2025 6:25 AM EDT)ComponentValueRef RangeTest MethodAnalysis TimePerformed AtPathologist SignatureWBC6.54 - 11 x10E9/L 06/14/2025 7:23 AM [facility] LABORATORYRBC Count4.384.1 - 5.7 X10E12/L1 7:23 AM [facility] Bmrkudbqiv97.913 - 17 g/dL06/14/2025 7:23 AM [facility] ZVXNFDTFYVZyqyvrsmzd56.939 - 50 %06/14/2025 7:23 AM [facility] VDTSEZPSHAFTB1278 - 100 fL06/14/2025 7:23 AM [facility] DLEURDOWCXRHV82.827 - 34 pg06/14/2025 7:23 AM [facility] KZOAOKZCTYEMOH50.132 - 36 g/dL06/14/2025 7:23 AM [facility] FZHIYONFUMQVG46.311.5 - 15 %06/14/2025 7:23 AM [facility] LABORATORYPlatelet Avfmg660763 - 450 X10E9/L1 7:23 AM [facility] LABORATORYMPV8.67 - 12 fL06/14/2025 7:23 AM [facility] LABORATORYNeutrophils %63.6%06/14/2025 7:23 AM [facility] LABORATORYLymphocytes %22.8%06/14/2025 7:23 AM [facility] LABORATORYMonocytes %9.3%06/14/2025 7:23 AM [facility] LABORATORYEosinophils %3.3%06/14/2025 7:23 AM [facility] LABORATORYBasophils %1.0%06/14/2025 7:23 AM [facility] LABORATORYNeutrophils Absolute (A)4.11.5 - 6.6 10*3/uL 06/14/2025 7:23 AM [facility] LABORATORYLymphocytes Absolute 1.51.0 - 3.5 10*3/uL06/14/2025 7:23 AM [facility] Monocytes Absolute0.60.0 - 0.9 10*3/uL06/14/2025 7:23 AM [facility] LABORATORYEosinophils Absolute0.20.0 - 0.4 10*3/uL06/14/2025 7:23 AM [facility] LABORATORYBasophils Absolute0.10.0 - 0.2 10*3/uL 06/14/2025 7:23 AM [facility] LABORATORYDifferential Type AUTOMATED NRJPSWXWXEMB02/23/2025 7:23 AM [facility] LABORATORYSpecimen (Source)Anatomical Location / LateralityCollection Method / VolumeCollection TimeReceived TimeBloodVenous blood / UnknownVenipuncture / Qwmbvvz3806/14/2025 6:25 AM EDT1 7:04 AM EDT Narrative Authorizing ProviderResult TypeResult StatusFahpipe BARNES BLOOD ORDERABLES Final ResultPerforming OrganizationAddressCity/State/ZIP CodePhone Number [facility] [address] [place] [address], * (ABNORMAL) Comprehensive metabolic panel (06/14/2025 6:25 AM EDT)Component ValueRef RangeTest MethodAnalysis TimePerformed AtPathologist SignatureSODIUM 756335 - 146 mmol/L1 7:41 AM [facility] POTASSIUM5.1(H)3.5 - 5.0 mmol/L1 7:41 AM [facility] LABORATORYComment:R-Specimen moderately hemolyzed, results increasedCHLORIDE 112(H)98 - 109 mmol/L1 7:41 AM [facility] CARBON MGKSJZF2191 - 32 mmol/L1 7:41 AM [facility] LABORATORYANION GAP95 - 15 mmol/L1 7:41 AM [facility] LABORATORYBLOOD UREA OAAFAFWX02(H)5 - 27 mg/dL06/14/2025 7:41 AM EDT [facility]ORATORYCREATININE1.67(H)0.60 - 1.30 mg/dL 06/14/2025 7:41 AM [facility] LABORATORYComment:METHOD TRACEABLE TO IDMS [id number](H)65 - 99 mg/dL06/14/2025 7:41 AM EDT [facility]ORATORYCALCIUM9.48.5 - 10.5 mg/dL06/14/2025 7:41 AM [facility] LABORATORYTOTAL PROTEIN7.16.0 - 8.0 g/dL 06/14/2025 7:41 AM [facility] LABORATORYALBUMIN3.73.2 - 5.3 g/dL06/14/2025 7:41 AM [facility] LABORATORYALKALINE FLNBLQQOJAW0208 - 130 U/L1 7:41 AM [facility] GJJMDKAMDBSEM10<=41 U/L1 7:41 AM [facility] UHFZQYDNKFUUT92<=40 U/L1 7:41 AM [facility] LABORATORYBILIRUBIN,TOTAL0.60.3 - 1.2 mg/dL06/14/2025 7:41 AM [facility] LABORATORYEGFR Non-Race Vqkilahiy97(L)>=60 ml/min/1.73sq.m 06/14/2025 7:41 AM [facility] LABORATORYComment: Reported eGFR is based on the CKD-EPI 2020 equation that does not use a race coefficient. Specimen (Source)Anatomical Location / LateralityCollection Method / Volume Collection TimeReceived TimeBloodVenous blood / UnknownVenipuncture / Unknown 06/14/2025 6:25 AM EDT1 7:04 AM EDT Narrative Authorizing ProviderResult TypeResult StatusFahpipe BARNES BLOOD ORDERABLES Final ResultPerforming OrganizationAddressCity/State/ZIP CodePhone Number [facility] [address] [place] [address], * (ABNORMAL) Bedside Glucose *Place/Obtain serum glucose if >500 per glucometer. (06/13/2025 8:57 PM EDT)ComponentValueRef RangeTest MethodAnalysis Time Performed AtPathologist SignatureBedside Glucose (POC)161(H)65 - 99 mg/dL 06/13/2025 8:58 PM [facility] LABORATORYSpecimen (Source)Anatomical Location / LateralityCollection Method / VolumeCollection TimeReceived Time arterial/fxpqcyicb92/22/2025 8:57 PM EDT1 8:58 PM EDT Narrative Authorizing ProviderResult TypeResult StatusEhad Monika MDPOINT OF CARE TEST ORDERABLESFinal ResultPerforming OrganizationAddressty/State/ZIP CodePhone Number [facility] [address] [place] [address], [place] * (ABNORMAL) Bedside Glucose *Place/Obtain serum glucose if >500 per glucometer. (06/13/2025 5:17 PM EDT)ComponentValueRef RangeTest MethodAnalysis Time Performed AtPathologist SignatureBedside Glucose (POC)266(H)65 - 99 mg/dL 06/13/2025 5:18 PM [facility] LABORATORYSpecimen (Source)Anatomical Location / LateralityCollection Method / VolumeCollection TimeReceived Time arterial/trnvccote80/22/2025 5:17 PM EDT1 5:18 PM EDT Narrative Authorizing ProviderResult TypeResult StatusEhad Monika MDPOINT OF CARE TEST ORDERABLESFinal ResultPerforming OrganizationAddressty/State/ZIP CodePhone Number [facility] [address] [place] [address], [place] * (ABNORMAL) Bedside Glucose *Place/Obtain serum glucose if >500 per glucometer. (06/13/2025 12:51PM EDT)ComponentValueRef RangeTest MethodAnalysis Time Performed AtPathologist SignatureBedside Glucose (POC)211(H)65 - 99 mg/dL 06/13/2025 12:53 PM [facility] LABORATORYSpecimen (Source)Anatomical Location / LateralityCollection Method / VolumeCollection TimeReceived Time arterial/qultjbmux92/22/2025 12:51 PM EDT1 12:53 PM EDT Narrative Authorizing ProviderResult TypeResult StatusEhad Monika MDPOINT OF CARE TEST ORDERABLESFinal ResultPerforming OrganizationAddressCity/State/ZIP CodePhone Number [facility] [address] [place] [address], [place] * Vas renal artery duplex complete [...] phone number besidetheir name. Authorizing ProviderResult TypeResult StatusMohamjoyce Ortiz [facility] VASCULAR ORDERABLESFinal Result * (ABNORMAL) Bedside Glucose *Place/Obtain serum glucose if >500 per glucometer. (06/13/2025 8:14 AM EDT)ComponentValueRef RangeTest MethodAnalysis Time Performed AtPathologist SignatureBedside Glucose (POC)184(H)65 - 99 mg/dL 06/13/2025 8:16 AM [facility] LABORATORYSpecimen (Source)Anatomical Location / LateralityCollection Method / VolumeCollection TimeReceived Time arterial/eyhkgvula48/22/2025 8:14 AM EDT1 8:15 AM EDT Narrative Authorizing ProviderResult TypeResult StatusEhad Monika MDPOINT OF CARE TEST ORDERABLESFinal ResultPerforming OrganizationAddressCity/State/ZIP CodePhone Number [facility] [address] [place] [address], [place] * Ionized calcium (06/13/2025 5:58 AM EDT)ComponentValueRef RangeTest Method Analysis TimePerformed AtPathologist SignatureIONIZED CALCIUM - ICAN5.14.5 - 5.3 mg/dL06/13/2025 7:51 AM [facility] LABORATORYSpecimen (Source)Anatomical Location / LateralityCollection Method / VolumeCollection TimeReceived TimeBloodVenous blood / UnknownVenipuncture / Velcpyk8706/13/2025 5:58 AM EDT1 6:12 AM EDT Narrative Authorizing ProviderResult TypeResult StatusRampreston BARNES BLOOD ORDERABLES Final ResultPerforming OrganizationAddressCity/State/ZIP CodePhone Number [facility] [address] [place] [address], [place] [phone] * Phosphorus (06/13/2025 5:58 AM EDT)ComponentValueRef RangeTest MethodAnalysis TimePerformed AtPathologist SignaturePHOSPHORUS3.52.4 - 4.9 mg/dL06/13/2025 6:46 AM [facility] LABORATORYSpecimen (Source)Anatomical Location / LateralityCollection Method / VolumeCollection TimeReceived Time BloodVenous blood / UnknownVenipuncture / Voxollh6106/13/2025 5:58 AM EDT 06/13/2025 6:17 AM EDT Narrative Authorizing ProviderResult TypeResult StatusRamy Luciana BARNES BLOOD ORDERABLES Final ResultPerforming OrganizationAddressCity/State/ZIP CodePhone Number [facility] [address] [address] [place] [address], * Magnesium (06/13/2025 5:58 AM EDT)ComponentValueRef RangeTest MethodAnalysis TimePerformed AtPathologist SignatureMAGNESIUM2.41.8 - 2.6 mg/dL06/13/2025 6:46 AM [facility] LABORATORYSpecimen (Source)Anatomical Location / LateralityCollection Method / VolumeCollection TimeReceived Time BloodVenous blood / UnknownVenipuncture / Gfckzey0206/13/2025 5:58 AM EDT 06/13/2025 6:17 AM EDT Narrative Authorizing ProviderResult TypeResult StatusRamy Luciana BARNES BLOOD ORDERABLES Final ResultPerforming OrganizationAddressCity/State/ZIP CodePhone Number [facility] [address] [place] [address], * CBC auto differential (06/13/2025 5:58 AM EDT)ComponentValueRef RangeTest MethodAnalysis TimePerformed AtPathologist SignatureWBC6.34 - 11 x10E9/L 06/13/2025 6:31 AM [facility] LABORATORYRBC Count4.514.1 - 5.7 X10E12/L1 6:31 AM [facility] Vxmpjplcqr07.413 - 17 g/dL06/13/2025 6:31 AM [facility] MRRWGPQTHFIxyvybjqtv37.939 - 50 %06/13/2025 6:31 AM [facility] HJKMSKMXSGFVB3368 - 100 fL06/13/2025 6:31 AM [facility] BBKTPAPYGSVSO82.027 - 34 pg06/13/2025 6:31 AM [facility] MDMCGVBVXOTRJG59.532 - 36 g/dL06/13/2025 6:31 AM [facility] XANSXSVCJZSDW63.211.5 - 15 %06/13/2025 6:31 AM [facility] LABORATORYPlatelet Gosnk815615 - 450 X10E9/L1 6:31 AM [facility] LABORATORYMPV8.47 - 12 fL06/13/2025 6:31 AM [facility] LABORATORYNeutrophils %63.1%06/13/2025 6:31 AM [facility] LABORATORYLymphocytes %22.0%06/13/2025 6:31 AM [facility] LABORATORYMonocytes %9.8%06/13/2025 6:31 AM [facility] LABORATORYEosinophils %3.7%06/13/2025 6:31 AM [facility] LABORATORYBasophils %1.4%06/13/2025 6:31 AM [facility] LABORATORYNeutrophils Absolute (A)4.01.5 - 6.6 10*3/uL 06/13/2025 6:31 AM [facility] LABORATORYLymphocytes Absolute 1.41.0 - 3.5 10*3/uL06/13/2025 6:31 AM [facility] Monocytes Absolute0.60.0 - 0.9 10*3/uL06/13/2025 6:31 AM [facility] LABORATORYEosinophils Absolute0.20.0 - 0.4 10*3/uL06/13/2025 6:31 AM [facility] LABORATORYBasophils Absolute0.10.0 - 0.2 10*3/uL 06/13/2025 6:31 AM [facility] LABORATORYDifferential Type AUTOMATED EHRRDIBQWXIC24/22/2025 6:31 AM [facility] LABORATORYSpecimen (Source)Anatomical Location / LateralityCollection Method / VolumeCollection TimeReceived TimeBloodVenous blood / UnknownVenipuncture / Nftbmxi6706/13/2025 5:58 AM EDT1 6:17 AM EDT Narrative Authorizing ProviderResult TypeResult StatusFamatthew BARNES BLOOD ORDERABLES Final ResultPerforming OrganizationAddressCity/State/ZIP CodePhone Number [facility] [address] [place] [address], * (ABNORMAL) Comprehensive metabolic panel (06/13/2025 5:58 AM EDT)Component ValueRef RangeTest MethodAnalysis TimePerformed AtPathologist SignatureSODIUM 259768 - 146 mmol/L1 6:46 AM [facility] POTASSIUM4.73.5 - 5.0 mmol/L1 6:46 AM [facility] FBOVLVWYBZMIKIJQXL08671 - 109 mmol/L1 6:46 AM [facility] LABORATORYCARBON VIVJIAG1182 - 32 mmol/L1 6:46 AM [facility] LABORATORYANION GAP95 - 15 mmol/L1 6:46 AM EDT [facility]ORATORYBLOOD UREA ZBGXVNZR53(H)5 - 27 mg/dL 06/13/2025 6:46 AM [facility] LABORATORYCREATININE1.61(H)0.60 - 1.30 mg/dL06/13/2025 6:46 AM [facility] LABORATORYComment: METHOD TRACEABLE TO IDMS [id number](H)65 - 99 mg/dL06/13/2025 6:46 AM [facility] LABORATORYCALCIUM9.58.5 - 10.5 mg/dL06/13/2025 6:46 AM [facility] LABORATORYTOTAL PROTEIN7.26.0 - 8.0 g/dL 06/13/2025 6:46 AM [facility] LABORATORYALBUMIN3.83.2 - 5.3 g/dL06/13/2025 6:46 AM [facility] LABORATORYALKALINE OKGHICEPCWX8303 - 130 U/L1 6:46 AM [facility] WSNXTQTGCPHRN78<=41 U/L1 6:46 AM [facility] UDDZQYJVQCILC48<=40 U/L1 6:46 AM [facility] LABORATORYBILIRUBIN,TOTAL0.60.3 - 1.2 mg/dL06/13/2025 6:46 AM [facility] LABORATORYEGFR Non-Race Mhvpzkvbu83(L)>=60 ml/min/1.73sq.m 06/13/2025 6:46 AM [facility] LABORATORYComment: Reported eGFR is based on the CKD-EPI 2020 equation that does not use a race coefficient. Specimen (Source)Anatomical Location / LateralityCollection Method / Volume Collection TimeReceived TimeBloodVenous blood / UnknownVenipuncture / Unknown 06/13/2025 5:58 AM EDT1 6:17 AM EDT Narrative Authorizing ProviderResult TypeResult StatusFahpipe BARNES BLOOD ORDERABLES Final ResultPerforming OrganizationAddressCity/State/ZIP CodePhone Number [facility] [address] [place] [address], * (ABNORMAL) Bedside Glucose *Place/Obtain serum glucose if >500 per glucometer. (06/12/2025 9:49 PM EDT)ComponentValueRef RangeTest MethodAnalysis Time Performed AtPathologist SignatureBedside Glucose (POC)187(H)65 - 99 mg/dL 06/12/2025 9:54 PM [facility] LABORATORYSpecimen (Source)Anatomical Location / LateralityCollection Method / VolumeCollection TimeReceived Time arterial/qkidcupxx50/21/2025 9:49 PM EDT1 9:54 PM EDT Narrative Authorizing ProviderResult TypeResult StatusEhad Monika MDPOINT OF CARE TEST ORDERABLESFinal ResultPerforming OrganizationAddressCity/State/ZIP CodePhone Number [facility] [address] [place] [address], [place] * (ABNORMAL) Bedside Glucose *Place/Obtain serum glucose if >500 per glucometer. (06/12/2025 5:14 PM EDT)ComponentValueRef RangeTest MethodAnalysis Time Performed AtPathologist SignatureBedside Glucose (POC)205(H)65 - 99 mg/dL 06/12/2025 5:19 PM [facility] LABORATORYSpecimen (Source)Anatomical Location / LateralityCollection Method / VolumeCollection TimeReceived Time arterial/edowwsfhl40/21/2025 5:14 PM EDT1 5:19 PM EDT Narrative Authorizing ProviderResult TypeResult StatusEhad Monika MDPOINT OF CARE TEST ORDERABLESFinal ResultPerforming OrganizationAddressty/State/ZIP CodePhone Number [facility] [address] [place] [address], [place] * (ABNORMAL) Bedside Glucose *Place/Obtain serum glucose if >500 per glucometer. (06/12/2025 10:57AM EDT)ComponentValueRef RangeTest MethodAnalysis Time Performed AtPathologist SignatureBedside Glucose (POC)115(H)65 - 99 mg/dL 06/12/2025 11:02 AM [facility] LABORATORYSpecimen (Source)Anatomical Location / LateralityCollection Method / VolumeCollection TimeReceived Time arterial/zckldfuds48/21/2025 10:57 AM EDT1 11:02 AM EDT Narrative Authorizing ProviderResult TypeResult StatusEhad Monika MDPOINT OF CARE TEST ORDERABLESFinal ResultPerforming OrganizationAddressty/State/ZIP CodePhone Number [facility] [address] [place] [address], [place] * Fluoroscopy swallow motility function (06/12/2025 [...] agree withand/or edited the report Finalized by Uli Dinh MD on 06/12/2025 10:47 AM Authorizing ProviderResult TypeResult StatusFahst. mary medical center Bang [place] FLUOROSCOPY ORDERABLESFinal Result * (ABNORMAL) Bedside Glucose *Place/Obtain serum glucose if >500 per glucometer. (06/12/2025 9:09 AM EDT)ComponentValueRef RangeTest MethodAnalysis Time Performed AtPathologist SignatureBedside Glucose (POC)117(H)65 - 99 mg/dL 06/12/2025 9:14 AM [facility] LABORATORYSpecimen (Source)Anatomical Location / LateralityCollection Method / VolumeCollection TimeReceived Time arterial/agvdkpwba13/21/2025 9:09 AM EDT1 9:14 AM EDT Narrative Authorizing ProviderResult TypeResult StatusEhad Monika MDPOINT OF CARE TEST ORDERABLESFinal ResultPerforming OrganizationAddLehigh [facility]/ZIP CodePhone Number [facility] [address] [place], [place] [id number], * (ABNORMAL) Bedside Glucose *Place/Obtain serum glucose if >500 per glucometer. (06/12/2025 6:27 AM EDT)ComponentValueRef RangeTest MethodAnalysis Time Performed AtPathologist SignatureBedside Glucose (POC)145(H)65 - 99 mg/dL 06/12/2025 6:29 AM [facility] LABORATORYSpecimen (Source)Anatomical Location / LateralityCollection Method / VolumeCollection TimeReceived Time arterial/uhdvxcjxe57/21/2025 6:27 AM EDT1 6:29 AM EDT Narrative Authorizing ProviderResult TypeResult StatusEhad Monika MDPOINT OF CARE TEST ORDERABLESFinal ResultPerforming OrganizationAddLehigh [facility] Hospital [facility]/ZIP CodePhone Number [facility] [address] [place] [address], [place] * X-ray abdomen NG Tube placement 1 [...] Peter Sarabia MD on 06/12/2025 4:47 AM Procedure Note [...] - ICAN5.14.5 - 5.3 mg/dL06/12/2025 6:04 AM [facility] LABORATORYSpecimen (Source)Anatomical Location / LateralityCollection Method / VolumeCollection TimeReceived TimeBloodVenous blood / UnknownVenipuncture / Gdqvoqn4806/12/2025 4:24 AM EDT1 5:27 AM EDT Narrative Authorizing ProviderResult TypeResult StatusRampreston BARNES BLOOD ORDERABLES Final ResultPerforming OrganizationAddressCity/State/ZIP CodePhone Number [facility] [address] [place] [address], * Phosphorus (06/12/2025 4:24 AM EDT)ComponentValueRef RangeTest MethodAnalysis TimePerformed AtPathologist SignaturePHOSPHORUS4.62.4 - 4.9 mg/dL06/12/2025 6:09 AM [facility] LABORATORYSpecimen (Source)Anatomical Location / LateralityCollection Method / VolumeCollection TimeReceived Time BloodVenous blood / UnknownVenipuncture / Jphvgwl1206/12/2025 4:24 AM EDT 06/12/2025 5:30 AM EDT Narrative Authorizing ProviderResult TypeResult StatusRampreston BARNES BLOOD ORDERABLES Final ResultPerforming OrganizationAddressCity/State/ZIP CodePhone Number [facility] [address] [place] [address], * Magnesium (06/12/2025 4:24 AM EDT)ComponentValueRef RangeTest MethodAnalysis TimePerformed AtPathologist SignatureMAGNESIUM2.61.8 - 2.6 mg/dL06/12/2025 6:09 AM [facility] LABORATORYSpecimen (Source)Anatomical Location / LateralityCollection Method / VolumeCollection TimeReceived Time BloodVenous blood / UnknownVenipuncture / Ulqvcyl2706/12/2025 4:24 AM EDT 06/12/2025 5:30 AM EDT Narrative Authorizing ProviderResult TypeResult StatusRamy Luciana BARNES BLOOD ORDERABLES Final ResultPerforming OrganizationAddressCity/State/ZIP CodePhone Number [facility] [address] [place] [address], * CBC auto differential (06/12/2025 4:24 AM EDT)ComponentValueRef RangeTest MethodAnalysis TimePerformed AtPathologist SignatureWBC5.04 - 11 x10E9/L 06/12/2025 5:49 AM [facility] LABORATORYRBC Count4.414.1 - 5.7 X10E12/L1 5:49 AM [facility] Kupohaisrn31.913 - 17 g/dL06/12/2025 5:49 AM [facility] NHAVGJTUFNZhirznazvf27.739 - 50 %06/12/2025 5:49 AM [facility] RFOEEJHWRBLBI9207 - 100 fL06/12/2025 5:49 AM [facility] DQGPVDXTJZQXP68.627 - 34 pg06/12/2025 5:49 AM [facility] UFJWILPRGIXVQT92.232 - 36 g/dL06/12/2025 5:49 AM [facility] YDRPCJCEXNTJU43.111.5 - 15 %06/12/2025 5:49 AM [facility] LABORATORYPlatelet Dutru280529 - 450 X10E9/L1 5:49 AM EDT [facility]ORYMPV8.67 - 12 fL06/12/2025 5:49 AM [facility] LABORATORYNeutrophils %54.3%06/12/2025 5:49 AM [facility] LABORATORYLymphocytes %28.2%06/12/2025 5:49 AM [facility] LABORATORYMonocytes %10.3%06/12/2025 5:49 AM [facility] LABORATORYEosinophils %5.7%06/12/2025 5:49 AM [facility] LABORATORYBasophils %1.5%06/12/2025 5:49 AM [facility] LABORATORYNeutrophils Absolute (A)2.71.5 - 6.6 10*3/uL 06/12/2025 5:49 AM [facility] LABORATORYLymphocytes Absolute 1.41.0 - 3.5 10*3/uL06/12/2025 5:49 AM [facility] Monocytes Absolute0.50.0 - 0.9 10*3/uL06/12/2025 5:49 AM [facility] LABORATORYEosinophils Absolute0.30.0 - 0.4 10*3/uL06/12/2025 5:49 AM [facility] LABORATORYBasophils Absolute0.10.0 - 0.2 10*3/uL 06/12/2025 5:49 AM [facility] LABORATORYDifferential Type AUTOMATED OZWKUWGQDBDU96/21/2025 5:49 AM [facility] LABORATORYSpecimen (Source)Anatomical Location / LateralityCollection Method / VolumeCollection TimeReceived TimeBloodVenous blood / UnknownVenipuncture / Zvwsnav2506/12/2025 4:24 AM EDT1 5:30 AM EDT Narrative Authorizing ProviderResult TypeResult StatusFamatthew BARNES BLOOD ORDERABLES Final ResultPerforming OrganizationAddressCity/State/ZIP CodePhone Number [facility] [address] [place] [address], [place] [phone] * (ABNORMAL) Comprehensive metabolic panel (06/12/2025 4:24 AM EDT)Component ValueRef RangeTest MethodAnalysis TimePerformed AtPathologist SignatureSODIUM 291349 - 146 mmol/L1 6:09 AM [facility] POTASSIUM4.63.5 - 5.0 mmol/L1 6:09 AM [facility] LQWXATSGVXGSLKAWEJ34865 - 109 mmol/L1 6:09 AM [facility] LABORATORYCARBON ZBPSXOH1974 - 32 mmol/L1 6:09 AM [facility] LABORATORYANION IXR288 - 15 mmol/L1 6:09 AM [facility] LABORATORYBLOOD UREA EQXSPHLK27(H)5 - 27 mg/dL 06/12/2025 6:09 AM [facility] LABORATORYCREATININE1.62(H)0.60 - 1.30 mg/dL06/12/2025 6:09 AM [facility] LABORATORYComment: METHOD TRACEABLE TO IDMS JOPRMGHRZCIRYDD459(H)65 - 99 mg/dL06/12/2025 6:09 AM [facility] LABORATORYCALCIUM9.98.5 - 10.5 mg/dL06/12/2025 6:09 AM [facility] LABORATORYTOTAL PROTEIN6.76.0 - 8.0 g/dL 06/12/2025 6:09 AM [facility] LABORATORYALBUMIN3.63.2 - 5.3 g/dL06/12/2025 6:09 AM [facility] LABORATORYALKALINE NVQOMNPRPHT2062 - 130 U/L1 6:09 AM [facility] FBQSHPHQFDTUL79<=41 U/L1 6:09 AM [facility] WOSERHTQWQGGE98<=40 U/L1 6:09 AM [facility] LABORATORYBILIRUBIN,TOTAL0.50.3 - 1.2 mg/dL06/12/2025 6:09 AM [facility] LABORATORYEGFR Non-Race Sulngxtqd92(L)>=60 ml/min/1.73sq.m 06/12/2025 6:09 AM [facility] LABORATORYComment: Reported eGFR is based on the CKD-EPI 2020 equation that does not use a race coefficient. Specimen (Source)Anatomical Location / LateralityCollection Method / Volume Collection TimeReceived TimeBloodVenous blood / UnknownVenipuncture / Unknown 06/12/2025 4:24 AM EDT1 5:30 AM EDT Narrative Authorizing ProviderResult TypeResult StatusAlphonse BARNES BLOOD ORDERABLES Final ResultPerforming OrganizationAddressCity/State/ZIP CodePhone Number [facility] [address] [place] [address], * (ABNORMAL) B-type natriuretic peptide (06/12/2025 4:24 AM EDT)ComponentValue Ref RangeTest MethodAnalysis TimePerformed AtPathologist ItybfrbbqTSV021(H) <=100 pg/mL06/12/2025 6:27 AM [facility] LABORATORYSpecimen (Source)Anatomical Location / LateralityCollection Method / VolumeCollection TimeReceived TimeBloodVenous blood / UnknownVenipuncture / Exgzswk6906/12/2025 4:24 AM EDT1 5:30 AM EDT Narrative Authorizing ProviderResult TypeResult StatusAdan BARNES BLOOD ORDERABLES Final ResultPerforming OrganizationAddressCity/State/ZIP CodePhone Number [facility] [address] [place] [address], * (ABNORMAL) Bedside Glucose *Place/Obtain serum glucose if >500 per glucometer. (06/12/2025 4:18 AM EDT)ComponentValueRef RangeTest MethodAnalysis Time Performed AtPathologist SignatureBedside Glucose (POC)204(H)65 - 99 mg/dL 06/12/2025 6:29 AM [facility] LABORATORYSpecimen (Source)Anatomical Location / LateralityCollection Method / VolumeCollection TimeReceived Time arterial/joiuwcaic89/21/2025 4:18 AM EDT1 6:29 AM EDT Narrative Authorizing ProviderResult TypeResult StatusEhad Monika MDPOINT OF CARE TEST ORDERABLESFinal ResultPerforming OrganizationAddressCity/State/ZIP CodePhone Number [facility] [address] [place] [address], [place] * (ABNORMAL) Bedside Glucose *Place/Obtain serum glucose if >500 per glucometer. (06/11/2025 11:29PM EDT)ComponentValueRef RangeTest MethodAnalysis Time Performed AtPathologist SignatureBedside Glucose (POC)194(H)65 - 99 mg/dL 06/11/2025 11:34 PM [facility] LABORATORYSpecimen (Source)Anatomical Location / LateralityCollection Method / VolumeCollection TimeReceived Time arterial/iedtdbzrm01/20/2025 11:29 PM EDT1 11:34 PM EDT Narrative Authorizing ProviderResult TypeResult StatusEhad Monika MDPOINT OF CARE TEST ORDERABLESFinal ResultPerforming OrganizationAddressty/State/ZIP CodePhone Number [facility] [address] [place] [address], [place] * (ABNORMAL) Bedside Glucose *Place/Obtain serum glucose if >500 per glucometer. (06/11/2025 7:38 PM EDT)ComponentValueRef RangeTest MethodAnalysis Time Performed AtPathologist SignatureBedside Glucose (POC)261(H)65 - 99 mg/dL 06/11/2025 11:34 PM [facility] LABORATORYSpecimen (Source)Anatomical Location / LateralityCollection Method / VolumeCollection TimeReceived Time arterial/fonsdikna60/20/2025 7:38 PM EDT1 11:34 PM EDT Narrative Authorizing ProviderResult TypeResult StatusEhad Monika MDPOINT OF CARE TEST ORDERABLESFinal ResultPerforming OrganizationAddPenn State Health Rehabilitation Hospitalty/State/ZIP CodePhone [facility]AT[facility] [address] [place] [address], [place] * (ABNORMAL) Bedside Glucose *Place/Obtain serum glucose if >500 per glucometer. (06/11/2025 3:14 PM EDT)ComponentValueRef RangeTest MethodAnalysis Time Performed AtPathologist SignatureBedside Glucose (POC)330(H)65 - 99 mg/dL 06/11/2025 7:38 PM [facility] LABORATORYSpecimen (Source)Anatomical Location / LateralityCollection Method / VolumeCollection TimeReceived Time arterial/liayhpvoy30/20/2025 3:14 PM EDT1 7:38 PM EDT Narrative Authorizing ProviderResult TypeResult StatusEhad Monika MDPOINT OF CARE TEST ORDERABLESFinal ResultPerforming OrganizationAddressCity/State/ZIP CodePhone Number [facility] [address] [place] [address], [place] * Ionized magnesium (06/11/2025 1:10 PM EDT)ComponentValueRef RangeTest Method Analysis TimePerformed AtPathologist SignatureIONIZED MAGNESIUM0.700.45 - 0.74 mmol/L1 1:43 PM [facility] LABORATORYSpecimen (Source)Anatomical Location / LateralityCollection Method / VolumeCollection TimeReceived TimeBloodVenous blood / UnknownVenipuncture / Cblvfft8406/11/2025 1:10 PM EDT1 1:23 PM EDT Narrative Authorizing ProviderResult TypeResult StatusEhad Monika MDLAB BLOOD ORDERABLES Final ResultPerforming OrganizationAddressCity/State/ZIP CodePhone Number [facility] [address] [place] [address], * (ABNORMAL) Bedside Glucose *Place/Obtain serum glucose if >500 per glucometer. (06/11/2025 12:26PM EDT)ComponentValueRef RangeTest MethodAnalysis Time Performed AtPathologist SignatureBedside Glucose (POC)340(H)65 - 99 mg/dL 06/11/2025 12:32 PM [facility] LABORATORYSpecimen (Source)Anatomical Location / LateralityCollection Method / VolumeCollection TimeReceived Time arterial/vwljwuogq56/20/2025 12:26 PM EDT1 12:32 PM EDT Narrative Authorizing ProviderResult TypeResult StatusEhad Monika MDPOINT OF CARE TEST ORDERABLESFinal ResultPerforming OrganizationAddressCity/State/ZIP CodePhone Number [facility] [address] [place] [address], [place] * Clinical Pathology Review (06/11/2025 11:31 AM EDT)ComponentValueRef RangeTest MethodAnalysis TimePerformed AtPathologist SignatureCase ReportClinical Pathology Report ? Case: [id number] ? Authorizing Provider: ??Ed Ortiz MD ?Collected: ? 06/11/2025 1131 ? [facility] ??Received: ?06/11/2025 1131 ? - GEN 8 ICU ? Pathologist: ? Basilio Garrido MD ? Specimen: ?Blood, Venous ? 06/13/2025 8:09 PM [facility] LABORATORYFinal DiagnosisNo monoclonal protein identified. 06/13/2025 8:09 PM [facility] at 2009 EDTSpecimen (Source)Anatomical Location / LateralityCollection Method / VolumeCollection TimeReceived Time Venous blood / Fblfanl9006/11/2025 11:31 AM EDT1 11:31 AM EDT Narrative Authorizing ProviderResult TypeResult StatusMojose Ortiz MD PATHOLOGY/CYTOLOGY ORDERABLESFinal ResultPerforming OrganizationAddress City/State/ZIP CodePhone Number [facility] [address] [place] [address], [place] [phone] * (ABNORMAL) Bedside Glucose *Place/Obtain serum glucose if >500 per glucometer. (06/11/2025 8:33 AM EDT)ComponentValueRef RangeTest MethodAnalysis Time Performed AtPathologist SignatureBedside Glucose (POC)328(H)65 - 99 mg/dL 06/11/2025 8:39 AM [facility] LABORATORYSpecimen (Source)Anatomical Location / LateralityCollection Method / VolumeCollection TimeReceived Time arterial/kjvyezlfw55/20/2025 8:33 AM EDT1 8:39 AM EDT Narrative Authorizing ProviderResult TypeResult StatusEhad Monika MDPOINT OF CARE TEST ORDERABLESFinal ResultPerforming OrganizationAddressCity/State/ZIP CodePhone Number [facility] [address] [place] [address], [place] * CT brain without contrast (06/11/2025 [...] low as reasonably achievable. Finalized by Lucas Salavdor MD on 06/11/2025 7:13 AM Procedure Note [...] on 06/11/2025 7:13 AM Authorizing ProviderResult TypeResult StatusFapipe WASSERMAN CT ORDERABLES Final Result * X-ray chest [...] - ICAN4.54.5 - 5.3 mg/dL06/11/2025 4:25 AM [facility] LABORATORYSpecimen (Source)Anatomical Location / LateralityCollection Method / VolumeCollection TimeReceived TimeBloodVenous blood / UnknownVenipuncture / Ipzbzag6806/11/2025 3:05 AM EDT1 3:59 AM EDT Narrative Authorizing ProviderResult TypeResult StatusRamy Luciana BARNES BLOOD ORDERABLES Final ResultPerforming OrganizationAddressCity/State/ZIP CodePhone Number [facility] [address] [place] [address], * Phosphorus (06/11/2025 3:05 AM EDT)ComponentValueRef RangeTest MethodAnalysis TimePerformed AtPathologist SignaturePHOSPHORUS4.82.4 - 4.9 mg/dL06/11/2025 4:27 AM [facility] LABORATORYSpecimen (Source)Anatomical Location / LateralityCollection Method / VolumeCollection TimeReceived Time BloodVenous blood / UnknownVenipuncture / Gdofuiz8106/11/2025 3:05 AM EDT 06/11/2025 4:02 AM EDT Narrative Authorizing ProviderResult TypeResult StatusRamy Luciana BARNES BLOOD ORDERABLES Final ResultPerforming OrganizationAddressCity/State/ZIP CodePhone Number [facility] [address] [place] [address] [address] [place] [address], * Magnesium (06/11/2025 3:05 AM EDT)ComponentValueRef RangeTest MethodAnalysis TimePerformed AtPathologist SignatureMAGNESIUM1.91.8 - 2.6 mg/dL06/11/2025 4:27 AM [facility] LABORATORYSpecimen (Source)Anatomical Location / LateralityCollection Method / VolumeCollection TimeReceived Time BloodVenous blood / UnknownVenipuncture / Ccowodq4806/11/2025 3:05 AM EDT 06/11/2025 4:02 AM EDT Narrative Authorizing ProviderResult TypeResult StatusRamy Luciana BARNES BLOOD ORDERABLES Final ResultPerforming OrganizationAddressty/State/ZIP CodePhone Number [facility] [address] [place] [address] [address] [place] [phone], * CBC auto differential (06/11/2025 3:05 AM EDT)ComponentValueRef RangeTest MethodAnalysis TimePerformed AtPathologist SignatureWBC5.44 - 11 x10E9/L 06/11/2025 4:14 AM [facility] LABORATORYRBC Count4.224.1 - 5.7 X10E12/L1 4:14 AM [facility] Kkwslvuwor21.313 - 17 g/dL06/11/2025 4:14 AM [facility] FLZJNUOYNLLqlxrndnsf55.239 - 50 %06/11/2025 4:14 AM [facility] NUMOGVHHLUURM9448 - 100 fL06/11/2025 4:14 AM [facility] DIIFMRBEDYVML97.627 - 34 pg06/11/2025 4:14 AM [facility] JAZYBPRMKNHAQG06.032 - 36 g/dL06/11/2025 4:14 AM [facility] VPMRXXUIYPCEZ35.111.5 - 15 %06/11/2025 4:14 AM [facility] LABORATORYPlatelet Gengq155097 - 450 X10E9/L1 4:14 AM [facility] LABORATORYMPV8.27 - 12 fL06/11/2025 4:14 AM [facility] LABORATORYNeutrophils %52.3%06/11/2025 4:14 AM [facility] LABORATORYLymphocytes %28.7%06/11/2025 4:14 AM [facility] LABORATORYMonocytes %11.0%06/11/2025 4:14 AM [facility] LABORATORYEosinophils %6.0%06/11/2025 4:14 AM [facility] LABORATORYBasophils %2.0%06/11/2025 4:14 AM [facility] LABORATORYNeutrophils Absolute (A)2.81.5 - 6.6 10*3/uL 06/11/2025 4:14 AM [facility] LABORATORYLymphocytes Absolute 1.51.0 - 3.5 10*3/uL06/11/2025 4:14 AM [facility] Monocytes Absolute0.60.0 - 0.9 10*3/uL06/11/2025 4:14 AM [facility] LABORATORYEosinophils Absolute0.30.0 - 0.4 10*3/uL06/11/2025 4:14 AM [facility] LABORATORYBasophils Absolute0.10.0 - 0.2 10*3/uL 06/11/2025 4:14 AM [facility] LABORATORYDifferential Type AUTOMATED ZYSAUTCMRBPS87/20/2025 4:14 AM [facility] LABORATORYSpecimen (Source)Anatomical Location / LateralityCollection Method / VolumeCollection TimeReceived TimeBloodVenous blood / UnknownVenipuncture / Upaxybn8006/11/2025 3:05 AM EDT1 4:02 AM EDT Narrative Authorizing ProviderResult TypeResult StatusFamatthew BARNES BLOOD ORDERABLES Final ResultPerforming OrganizationAddressCity/State/ZIP CodePhone Number [facility] [address] [place] [address], * (ABNORMAL) Comprehensive metabolic panel (06/11/2025 3:05 AM EDT)Component ValueRef RangeTest MethodAnalysis TimePerformed AtPathologist SignatureSODIUM 492382 - 146 mmol/L1 4:27 AM [facility] POTASSIUM4.33.5 - 5.0 mmol/L1 4:27 AM [facility] IRSTOYXULIDJWDILYZ79600 - 109 mmol/L1 4:27 AM [facility] LABORATORYCARBON WWWXVXI1893 - 32 mmol/L1 4:27 AM [facility] LABORATORYANION KGC657 - 15 mmol/L1 4:27 AM EDT [facility] LABORATORYBLOOD UREA CCFFXVZP086 - 27 mg/dL06/11/2025 4:27 AM [facility] LABORATORYCREATININE1.84(H)0.60 - 1.30 mg/dL06/11/2025 4:27 AM [facility] LABORATORYComment:METHOD TRACEABLE TO IDMS XNWSLRVBYVHNAFI208(H)65 - 99 mg/dL06/11/2025 4:27 AM T [facility] LABORATORYCALCIUM9.38.5 - 10.5 mg/dL06/11/2025 4:27 AM [facility] LABORATORYTOTAL PROTEIN6.76.0 - 8.0 g/dL 06/11/2025 4:27 AM [facility] LABORATORYALBUMIN3.63.2 - 5.3 g/dL06/11/2025 4:27 AM [facility] LABORATORYALKALINE HAXWSXHQFPW3034 - 130 U/L1 4:27 AM [facility] VWZVPZCOGKPFF05<=41 U/L1 4:27 AM [facility] LABORATORYALT7<=40 U/L1 4:27 AM [facility] LABORATORYBILIRUBIN,TOTAL0.40.3 - 1.2 mg/dL06/11/2025 4:27 AM [facility] LABORATORYEGFR Non-Race Iacbcwklr97(L)>=60 ml/min/1.73sq.m 06/11/2025 4:27 AM [facility] LABORATORYComment: Reported eGFR is based on the CKD-EPI 2020 equation that does not use a race coefficient. Specimen (Source)Anatomical Location / LateralityCollection Method / Volume Collection TimeReceived TimeBloodVenous blood / UnknownVenipuncture / Unknown 06/11/2025 3:05 AM EDT1 4:02 AM EDT Narrative Authorizing ProviderResult TypeResult StatusFamatthew BARNES BLOOD ORDERABLES Final ResultPerforming OrganizationAddressCity/State/ZIP CodePhone Number [facility] [address] [place] [address], * (ABNORMAL) B-type natriuretic peptide (06/11/2025 3:05 AM EDT)ComponentValue Ref RangeTest MethodAnalysis TimePerformed AtPathologist DpczmzzbgCTZ401(H) <=100 pg/mL06/11/2025 4:51 AM [facility] LABORATORYSpecimen (Source)Anatomical Location / LateralityCollection Method / VolumeCollection TimeReceived TimeBloodVenous blood / UnknownVenipuncture / Ymjqbey8506/11/2025 3:05 AM EDT1 4:02 AM EDT Narrative Authorizing ProviderResult TypeResult StatusRampreston BARNES BLOOD ORDERABLES Final ResultPerforming OrganizationAddressCity/State/ZIP CodePhone Number [facility] [address] [place] [phone], * Troponin I, High Sensitivity 1 Hour (06/10/2025 3:33 AM EDT)ComponentValueRef RangeTest MethodAnalysis TimePerformed AtPathologist SignatureTROPONIN I, HIGH HDBTRZWIUGY64<21 ng/L1 4:15 AM [facility] Specimen (Source)Anatomical Location / LateralityCollection Method / Volume Collection TimeReceived TimeBloodVenous blood / UnknownVenipuncture / Unknown 06/10/2025 3:33 AM EDT1 3:42 AM EDT Narrative Authorizing ProviderResult TypeResult StatusBhavanireji Drake CTLAB BLOOD ORDERABLESFinal ResultPerforming OrganizationAddressCity/State/ZIP CodePhone Number [facility] [address] [place] [address] [address] [place] [address], * Troponin I, High Sensitivity 0 Hour (06/10/2025 2:52 AM EDT)ComponentValueRef RangeTest MethodAnalysis TimePerformed AtPathologist SignatureTROPONIN I, HIGH QRQULWMLTSY59<21 ng/L1 3:35 AM [facility] Specimen (Source)Anatomical Location / LateralityCollection Method / Volume Collection TimeReceived TimeBloodVenous blood / UnknownVenipuncture / Unknown 06/10/2025 2:52 AM EDT1 3:03 AM EDT Narrative Authorizing ProviderResult TypeResult StatusBhavanireji Drake CTLAB BLOOD ORDERABLESFinal ResultPerforming OrganizationAddressty/State/ZIP CodePhone Number [facility] [address] [place] [address], * Ionized calcium (06/10/2025 2:52 AM EDT)ComponentValueRef RangeTest Method Analysis TimePerformed AtPathologist SignatureIONIZED CALCIUM - ICAN5.04.5 - 5.3 mg/dL06/10/2025 3:24 AM [facility] LABORATORYSpecimen (Source)Anatomical Location / LateralityCollection Method / VolumeCollection TimeReceived TimeBloodVenous blood / UnknownVenipuncture / Pqaruee8906/10/2025 2:52 AM EDT1 3:03 AM EDT Narrative Authorizing ProviderResult TypeResult StatusRamy A Erinn MDLAB BLOOD ORDERABLES Final ResultPerforming OrganizationAddressty/State/ZIP CodePhone Number [address] [place] [address], * Phosphorus (06/10/2025 2:52 AM EDT)ComponentValueRef RangeTest MethodAnalysis TimePerformed AtPathologist SignaturePHOSPHORUS4.72.4 - 4.9 mg/dL06/10/2025 3:31 AM [facility] LABORATORYSpecimen (Source)Anatomical Location / LateralityCollection Method / VolumeCollection TimeReceived Time BloodVenous blood / UnknownVenipuncture / Satubit9206/10/2025 2:52 AM EDT 06/10/2025 3:03 AM EDT Narrative Authorizing ProviderResult TypeResult StatusRamy A Erinn MDLAB BLOOD ORDERABLES Final ResultPerforming OrganizationAddressCity/State/ZIP CodePhone Number [address] [place] [address], * Magnesium (06/10/2025 2:52 AM EDT)ComponentValueRef RangeTest MethodAnalysis TimePerformed AtPathologist SignatureMAGNESIUM2.01.8 - 2.6 mg/dL06/10/2025 3:31 AM [facility] LABORATORYSpecimen (Source)Anatomical Location / LateralityCollection Method / VolumeCollection TimeReceived Time BloodVenous blood / UnknownVenipuncture / Mepqsyy0806/10/2025 2:52 AM EDT 06/10/2025 3:03 AM EDT Narrative Authorizing ProviderResult TypeResult StatusRamy A Erinn MDLAB BLOOD ORDERABLES Final ResultPerforming OrganizationAddressty/State/ZIP CodePhone Number [address] [address], * (ABNORMAL) CBC auto differential (06/10/2025 2:52 AM EDT)ComponentValueRef RangeTest MethodAnalysis TimePerformed AtPathologist SignatureWBC4.94 - 11 x10E9/L1 3:06 AM [facility] LABORATORYRBC Count4.17 4.1 - 5.7 X10E12/L1 3:06 AM [facility] Vnmimsoedk39.113 - 17 g/dL06/10/2025 3:06 AM [facility] ZROOJJBVOICcocrplxly23.5(L)39 - 50 %06/10/2025 3:06 AM [facility] QYHGJOCJOMFYK3146 - 100 fL06/10/2025 3:06 AM [facility] JNYDJIKKWJUKL81.627 - 34 pg06/10/2025 3:06 AM [facility] WPOMKGEOUMMRGW95.132 - 36 g/dL06/10/2025 3:06 AM [facility] FWFWGSZNOFYQG24.311.5 - 15 %06/10/2025 3:06 AM [facility] LABORATORYPlatelet Cfkzq917458 - 450 X10E9/L1 3:06 AM [facility] LABORATORYMPV7.47 - 12 fL06/10/2025 3:06 AM [facility] LABORATORYNeutrophils %57.2%06/10/2025 3:06 AM [facility] LABORATORYLymphocytes %26.4%06/10/2025 3:06 AM [facility] LABORATORYMonocytes %11.0%06/10/2025 3:06 AM [facility] LABORATORYEosinophils %4.3%06/10/2025 3:06 AM [facility] LABORATORYBasophils %1.1%06/10/2025 3:06 AM [facility] LABORATORYNeutrophils Absolute (A)2.81.5 - 6.6 10*3/uL 06/10/2025 3:06 AM [facility] LABORATORYLymphocytes Absolute 1.31.0 - 3.5 10*3/uL06/10/2025 3:06 AM [facility] Monocytes Absolute0.50.0 - 0.9 10*3/uL06/10/2025 3:06 AM [facility] LABORATORYEosinophils Absolute0.20.0 - 0.4 10*3/uL06/10/2025 3:06 AM [facility] LABORATORYBasophils Absolute0.10.0 - 0.2 10*3/uL 06/10/2025 3:06 AM [facility] LABORATORYDifferential Type AUTOMATED QDDIJFKOQCFB49/19/2025 3:06 AM [facility] LABORATORYSpecimen (Source)Anatomical Location / LateralityCollection Method / VolumeCollection TimeReceived TimeBloodVenous blood / UnknownVenipuncture / Xbsalbd1206/10/2025 2:52 AM EDT1 3:03 AM EDT Narrative Authorizing ProviderResult TypeResult StatusFahpipe BARNES BLOOD ORDERABLES Final ResultPerforming OrganizationAddressCity/State/ZIP CodePhone Number [facility] [address] [place] [address], * (ABNORMAL) Comprehensive metabolic panel (06/10/2025 2:52 AM EDT)Component ValueRef RangeTest MethodAnalysis TimePerformed AtPathologist SignatureSODIUM 147(H)134 - 146 mmol/L1 3:31 AM [facility] LABORATORYPOTASSIUM3.93.5 - 5.0 mmol/L1 3:31 AM [facility] BHMDZMWKVYNEPQPKYP59878 - 109 mmol/L1 3:31 AM [facility] LABORATORYCARBON GIONGZM9101 - 32 mmol/L1 3:31 AM [facility] LABORATORYANION TQN094 - 15 mmol/L1 3:31 AM [facility] LABORATORYBLOOD UREA GBMSTKZM186 - 27 mg/dL 06/10/2025 3:31 AM [facility] LABORATORYCREATININE1.63(H)0.60 - 1.30 mg/dL06/10/2025 3:31 AM [facility] LABORATORYComment: METHOD TRACEABLE TO IDMS IRIFZIBGJXANOMM575(H)65 - 99 mg/dL06/10/2025 3:31 AM [facility] LABORATORYCALCIUM9.48.5 - 10.5 mg/dL06/10/2025 3:31 AM [facility] LABORATORYTOTAL PROTEIN6.46.0 - 8.0 g/dL 06/10/2025 3:31 AM [facility] LABORATORYALBUMIN3.43.2 - 5.3 g/dL06/10/2025 3:31 AM [facility] LABORATORYALKALINE CBRHJIXVYBZ6258 - 130 U/L1 3:31 AM [facility] CWYCUZTVYKWXK05<=41 U/L1 3:31 AM [facility] IQMUIGQNNEKQK25<=40 U/L1 3:31 AM [facility] LABORATORYBILIRUBIN,TOTAL0.50.3 - 1.2 mg/dL06/10/2025 3:31 AM [facility] LABORATORYEGFR Non-Race Mctwyzvkr20(L)>=60 ml/min/1.73sq.m 06/10/2025 3:31 AM [facility] LABORATORYComment: Reported eGFR is based on the CKD-EPI 2020 equation that does not use a race coefficient. Specimen (Source)Anatomical Location / LateralityCollection Method / Volume Collection TimeReceived TimeBloodVenous blood / UnknownVenipuncture / Unknown 06/10/2025 2:52 AM EDT1 3:03 AM EDT Narrative Authorizing ProviderResult TypeResult StatusFahpipe BARNES BLOOD ORDERABLES Final ResultPerforming OrganizationAddressCity/State/ZIP CodePhone Number [facility] [address] [place] [address], * (ABNORMAL) B-type natriuretic peptide (06/10/2025 2:52 AM EDT)ComponentValue Ref RangeTest MethodAnalysis TimePerformed AtPathologist QknhcvjfzJYU475(H) <=100 pg/mL06/10/2025 3:38 AM [facility] LABORATORYSpecimen (Source)Anatomical Location / LateralityCollection Method / VolumeCollection TimeReceived TimeBloodVenous blood / UnknownVenipuncture / Chzvhbl1606/10/2025 2:52 AM EDT1 3:03 AM EDT Narrative Authorizing ProviderResult TypeResult StatusAdan BARNES BLOOD ORDERABLES Final ResultPerforming OrganizationAddressCity/State/ZIP CodePhone Number [facility] [address] [place] [address], * ECG 12 lead (06/10/2025 1:28 AM EDT)Specimen (Source)Anatomical Location / LateralityCollection Method / VolumeCollection TimeReceived Time06/10/2025 1:28 AM EDT Narrative TRACEMASTERVUE - 06/10/2025 9:22 AM EDT Authorizing ProviderResult TypeResult StatusMargo KENNYG ORDERABLES Final ResultPerforming OrganizationAddressCity/State/ZIP CodePhone Number TRACEMASTERVUE * X-ray chest 1 view (06/09/2025 11:46 [...] on 06/09/2025 12:40 PM Authorizing ProviderResult TypeResult StatusRamy A Erinn [facility] DIAGNOSTIC IMAGING ORDERABLESFinal Result * X-ray abdomen [...] 4:53 AM Authorizing ProviderResult TypeResult StatusEhad Monika MDG DIAGNOSTIC IMAGING ORDERABLESFinal Result * (ABNORMAL) CBC auto differential (06/09/2025 3:16 AM EDT)ComponentValueRef RangeTest MethodAnalysis TimePerformed AtPathologist SignatureWBC5.14 - 11 x10E9/L1 4:24 AM [facility] LABORATORYRBC Count4.02 (L)4.1 - 5.7 X10E12/L1 4:24 AM [facility] Vhaskhrxlb25.8(L)13 - 17 g/dL06/09/2025 4:24 AM [facility] NUCHFKJPNCDaowpgwuxj99.2(L)39 - 50 %06/09/2025 4:24 AM [facility] TWRJXJALDIEEK1931 - 100 fL06/09/2025 4:24 AM [facility] YDMWMVSRPMLYP33.727 - 34 pg06/09/2025 4:24 AM [facility] ARTXHADYTONOOZ99.332 - 36 g/dL06/09/2025 4:24 AM [facility] WHQCUQYPXATLV18.711.5 - 15 %06/09/2025 4:24 AM [facility] LABORATORYPlatelet Ymyuy980273 - 450 X10E9/L1 4:24 AM [facility] LABORATORYMPV7.77 - 12 fL06/09/2025 4:24 AM [facility] LABORATORYNeutrophils %63.1%06/09/2025 4:24 AM [facility] LABORATORYLymphocytes %21.3%06/09/2025 4:24 AM [facility] LABORATORYMonocytes %11.2%06/09/2025 4:24 AM [facility] LABORATORYEosinophils %3.4%06/09/2025 4:24 AM [facility] LABORATORYBasophils %1.0%06/09/2025 4:24 AM [facility] LABORATORYNeutrophils Absolute (A)3.21.5 - 6.6 10*3/uL 06/09/2025 4:24 AM [facility] LABORATORYLymphocytes Absolute 1.11.0 - 3.5 10*3/uL10/ 4:24 AM [facility] Monocytes Absolute0.60.0 - 0.9 10*3/uL06/09/2025 4:24 AM [facility] LABORATORYEosinophils Absolute0.20.0 - 0.4 10*3/uL06/09/2025 4:24 AM [facility] LABORATORYBasophils Absolute0.00.0 - 0.2 10*3/uL 06/09/2025 4:24 AM [facility] LABORATORYDifferential Type AUTOMATED LGYEFNCDBWZN43/18/2025 4:24 AM [facility] LABORATORYSpecimen (Source)Anatomical Location / LateralityCollection Method / VolumeCollection TimeReceived TimeBloodVenous blood / UnknownVenipuncture / Liwbjsx5806/09/2025 3:16 AM EDT1 4:11 AM EDT Narrative Authorizing ProviderResult TypeResult StatusFamatthew BARNES BLOOD ORDERABLES Final ResultPerforming OrganizationAddressCity/State/ZIP CodePhone Number [facility] [address] [place] [address], * (ABNORMAL) Comprehensive metabolic panel (06/09/2025 3:16 AM EDT)Component ValueRef RangeTest MethodAnalysis TimePerformed AtPathologist SignatureSODIUM 999536 - 146 mmol/L1 4:43 AM [facility] POTASSIUM3.93.5 - 5.0 mmol/L1 4:43 AM [facility] ZRNDWTZBJZKOIJWKNY387(H)98 - 109 mmol/L1 4:43 AM [facility] LABORATORYCARBON PXBLIEO4166 - 32 mmol/L1 4:43 AM [facility] LABORATORYANION GAP85 - 15 mmol/L1 4:43 AM EDT [facility] LABORATORYBLOOD UREA DYSFEILN973 - 27 mg/dL06/09/2025 4:43 AM [facility] LABORATORYCREATININE1.47(H)0.60 - 1.30 mg/dL06/09/2025 4:43 AM [facility] LABORATORYComment:METHOD TRACEABLE TO IDMS EBOWKIRYAMALKCU722(H)65 - 99 mg/dL06/09/2025 4:43 AM EDT [facility] LABORATORYCALCIUM9.08.5 - 10.5 mg/dL06/09/2025 4:43 AM [facility] LABORATORYTOTAL PROTEIN5.8(L)6.0 - 8.0 g/dL 06/09/2025 4:43 AM [facility] LABORATORYALBUMIN3.23.2 - 5.3 g/dL06/09/2025 4:43 AM [facility] LABORATORYALKALINE XEMGWQTBJFD2033 - 130 U/L1 4:43 AM [facility] KXILQBUBQTPSG55<=41 U/L1 4:43 AM [facility] LABORATORYALT6<=40 U/L1 4:43 AM [facility] LABORATORYBILIRUBIN,TOTAL0.50.3 - 1.2 mg/dL06/09/2025 4:43 AM [facility] LABORATORYEGFR Non-Race Zcgzqofai41(L)>=60 ml/min/1.73sq.m 06/09/2025 4:43 AM [facility] LABORATORYComment: Reported eGFR is based on the CKD-EPI 2020 equation that does not use a race coefficient. Specimen (Source)Anatomical Location / LateralityCollection Method / Volume Collection TimeReceived TimeBloodVenous blood / UnknownVenipuncture / Unknown 06/09/2025 3:16 AM EDT1 4:11 AM EDT Narrative Authorizing ProviderResult TypeResult StatusFamatthew BARNES BLOOD ORDERABLES Final ResultPerforming OrganizationAddressCity/State/ZIP CodePhone Number [facility] [address] [place] [address], * Vas venous duplex lwr bilateral (06/08/2025 [...] besidetheir name. Authorizing ProviderResult TypeResult StatusOlubode Jonathan Alex [facility] [place] VASCULAR ORDERABLESEdited Result - Final * Echo complete W/ contrast (06/08/2025 2:02 PM EDT)ComponentValueRef RangeTest MethodAnalysis TimePerformed AtPathologist SignatureLVOT stroke .40ml VICHQEYNT6676 - 44 %XCELERALVIDd4.708.34 - 11.59 cmXCELERALVIDs3.204.80 - 7.27 cmXCELERAIVS1.300.6 - 1.1 cmXCELERAPW1.300.6 - 1.1 cmXCELERALVOT diameter2.00 cmXCELERATDI6.96cm/sXCELERAMV TDI E' (medial)6.42cm/sXCELERALA Volume Index 30.6mL/g4ZSMTTWIF/A ratio0.87XCELERAE wave deceleration ogyu211.00msecXCELERA MV Peak E Zbz281.00cm/sXCELERAMV Peak A Wmz441.00cm/sXCELERALA size2.90cm XCELERAAortic root3.90cmXCELERALA .04hu2MGMHEYIJCGSD5.08cmXCELERAAV peak wah279.00cm/sXCELERALVOT peak vel1.31m/sXCELERAAV VTI23.20cmXCELERALVOT peak VTI24.00cmXCELERAAV mean gradient5.00mmHgXCELERAAV peak gradient8.41mmHg XCELERAAV valve area3.25XCELERAValve area - Index1.3XCELERAMV pressure 1/2 time75.00msXCELERAMV valve area p 1/2 method2.70un3FFYTYYLWY peak gradient3.16 mmHgXCELERALV ESV A2C63.40mLXCELERALV ESV A4C75.80mLXCELERALV RWT 2D55.32 XCELERAAV Velocity Ratio1.03XCELERALeft Ventricle Mzsc728.271639282583634s XCELERAInterventricular Septum Diastolic Thickness by 2P45ytFAPVAIGPE area13.1 ke0THAZETGVrkddxrim aorta3.70cmXCELERAAo asc z-score3.46cmXCELERARV diastolic dimension (basal)34.5mmXCELERAEst. RA mvnbqdxl4tsYyXQQGPKTQJKBOU-4.85XCELERA ZLVIDD-7.38XCELERAEnergy loss index28.06XCELERAAnatomical RegionLaterality ModalityChestN/AUltrasoundSpecimen (Source)Anatomical Location [...] follow commands. Authorizing ProviderResult TypeResult StatusAhmed Luciana Farfan [facility] ECHO ORDERABLESFinal Result * X-ray abdomen NG [...] 12:47 PM Authorizing ProviderResult TypeResult StatusSyed Angel MALDONADOG DIAGNOSTIC IMAGING ORDERABLESFinal Result * CBC auto differential (06/08/2025 2:49 AM EDT)ComponentValueRef RangeTest MethodAnalysis TimePerformed AtPathologist SignatureWBC5.84 - 11 x10E9/L 06/08/2025 4:10 AM [facility] LABORATORYRBC Count4.214.1 - 5.7 X10E12/L1 4:10 AM [facility] Txiqbbtihq99.313 - 17 g/dL06/08/2025 4:10 AM [facility] FORXYEAIMHGffvepaspl43.039 - 50 %06/08/2025 4:10 AM [facility] FKPIAVLHZCJQF5317 - 100 fL06/08/2025 4:10 AM [facility] NSUSHBBCWMSQI34.727 - 34 pg06/08/2025 4:10 AM [facility] OBTGGTFXLUZQUG98.232 - 36 g/dL06/08/2025 4:10 AM [facility] DAIKTAQKQGZTV14.611.5 - 15 %06/08/2025 4:10 AM [facility] LABORATORYPlatelet Cnudp516291 - 450 X10E9/L1 4:10 AM [facility] LABORATORYMPV7.37 - 12 fL06/08/2025 4:10 AM [facility] LABORATORYNeutrophils %63.1%06/08/2025 4:10 AM [facility] LABORATORYLymphocytes %21.8%06/08/2025 4:10 AM [facility] LABORATORYMonocytes %11.6%06/08/2025 4:10 AM [facility] LABORATORYEosinophils %2.9%06/08/2025 4:10 AM [facility] LABORATORYBasophils %0.6%06/08/2025 4:10 AM [facility] LABORATORYNeutrophils Absolute (A)3.71.5 - 6.6 10*3/uL 06/08/2025 4:10 AM [facility] LABORATORYLymphocytes Absolute 1.31.0 - 3.5 10*3/uL06/08/2025 4:10 AM [facility] Monocytes Absolute0.70.0 - 0.9 10*3/uL06/08/2025 4:10 AM [facility] LABORATORYEosinophils Absolute0.20.0 - 0.4 10*3/uL06/08/2025 4:10 AM [facility] LABORATORYBasophils Absolute0.00.0 - 0.2 10*3/uL 06/08/2025 4:10 AM [facility] LABORATORYDifferential Type AUTOMATED ZFJJOLCCYHRN03/17/2025 4:10 AM [facility] LABORATORYSpecimen (Source)Anatomical Location / LateralityCollection Method / VolumeCollection TimeReceived TimeBloodVenous blood / UnknownVenipuncture / Cfcclsm7306/08/2025 2:49 AM EDT1 3:53 AM EDT Narrative Authorizing ProviderResult TypeResult StatusFamatthew BARNES BLOOD ORDERABLES Final ResultPerforming OrganizationAddressCity/State/ZIP CodePhone Number [facility] [address] [place] [address], * (ABNORMAL) Comprehensive metabolic panel (06/08/2025 2:49 AM EDT)Component ValueRef RangeTest MethodAnalysis TimePerformed AtPathologist SignatureSODIUM 704646 - 146 mmol/L1 4:36 AM [facility] POTASSIUM3.63.5 - 5.0 mmol/L1 4:36 AM [facility] LABORATORYComment:R-Specimen moderately hemolyzed, results increasedCHLORIDE 111(H)98 - 109 mmol/L1 4:36 AM [facility] [place] RQNPJZS5199 - 32 mmol/L1 4:36 AM [facility] LABORATORYANION GAP75 - 15 mmol/L1 4:36 AM [facility] LABORATORYBLOOD UREA QDGGSCBD653 - 27 mg/dL06/08/2025 4:36 AM [facility] LABORATORYCREATININE1.43(H)0.60 - 1.30 mg/dL06/08/2025 4:36 AM [facility] LABORATORYComment:METHOD TRACEABLE TO IDMS PRFDZQMXZSGBIKV662(H)65 - 99 mg/dL06/08/2025 4:36 AM [facility] LABORATORYCALCIUM9.08.5 - 10.5 mg/dL06/08/2025 4:36 AM [facility] LABORATORYTOTAL PROTEIN6.16.0 - 8.0 g/dL06/08/2025 4:36 AM [facility] LABORATORYALBUMIN3.33.2 - 5.3 g/dL06/08/2025 4:36 AM [facility] LABORATORYALKALINE EXWYCKNONID8132 - 130 U/L 06/08/2025 4:36 AM [facility] ETFUJYBDNMNXJ57<=41 U/L 06/08/2025 4:36 AM [facility] LABORATORYALT8<=40 U/L 06/08/2025 4:36 AM [facility] LABORATORYBILIRUBIN,TOTAL0.60.3 - 1.2 mg/dL06/08/2025 4:36 AM [facility] LABORATORYEGFR Non- Race Afriulpup72(L)>=60 ml/min/1.73sq.m1 4:36 AM [facility] LABORATORYComment: Reported eGFR is based on the CKD-EPI 2020 equation that does not use a race coefficient. Specimen (Source)Anatomical Location / LateralityCollection Method / Volume Collection TimeReceived TimeBloodVenous blood / UnknownVenipuncture / Unknown 06/08/2025 2:49 AM EDT1 3:53 AM EDT Narrative Authorizing ProviderResult TypeResult StatusFamatthew BARNES BLOOD ORDERABLES Final ResultPerforming OrganizationAddressCity/State/ZIP CodePhone Number [facility] [address] [place] [address], * CK Total (06/08/2025 2:49 AM EDT)ComponentValueRef RangeTest MethodAnalysis TimePerformed AtPathologist VoenogpslSHB30944 - 195 U/L1 4:36 AM EDT [facility]ORATORYSpecimen (Source)Anatomical Location / LateralityCollection Method / VolumeCollection TimeReceived TimeBloodVenous blood / UnknownVenipuncture / Qzgapfm7806/08/2025 2:49 AM EDT1 3:53 AM EDT Narrative Authorizing ProviderResult TypeResult StatusMojose BARNES BLOOD ORDERABLESFinal ResultPerforming OrganizationAddressCity/State/ZIP CodePhone Number [facility] [address] [place] [address], [place] [phone] * X-ray abdomen NG Tube placement 1 [...] MethodAnalysis TimePerformed AtPathologist SignatureCOLORRed(A)Yellow 06/07/2025 11:23 PM [facility] LABORATORYTURBIDITYHazy(A) Clear06/07/2025 11:23 PM [facility] LABORATORYSPECIFIC GRAVITY1.0131.003 - 1.3879906/07/2025 11:23 PM [facility] ZDLCTGZGZZRBIAQOROgnzauvqGwookzkj74/16/2025 11:23 PM [facility] LABORATORYPH,URINE7.05.0 - 8.510 11:23 PM [facility] LABORATORYLEUKOCYTE ESTERASETrace(A)Voltgikr51/16/2025 11:23 PM EDT [facility] ZVFDUKCPTDHQZQSXZ447 mg/dL(A)Advwexze24/16/2025 11:23 PM [facility] LABORATORYKETONES (URINE)NegativeNegative 06/07/2025 11:23 PM [facility] LABORATORYUROBILINOGEN<1.1 eu/dL<1.1 eu/dL06/07/2025 11:23 PM [facility] BILIRUBIN (URINE)PreqrdnaIswtursc57/16/2025 11:23 PM [facility] LABORATORYBLOOD/HGBLarge(A)Iexnakto35/16/2025 11:23 PM [facility] LABORATORYMUCOUSPresent(A)None06/07/2025 11:23 PM [facility] LABORATORYR.B.CELLS>720(H)0 - 11:23 PM [facility] LABORATORYW.B.CELLS00 - 11:23 PM [facility] LABORATORYGLUCOSE (URINE)500 mg/dL(A)Nzloqrro90/16/2025 11:23 PM [facility] LABORATORYSpecimen (Source)Anatomical Location / LateralityCollection Method / VolumeCollection TimeReceived Time Urine (Urine, Indwelling Catheter)06/07/2025 10:47 PM EDT1 11:03 PM EDT Narrative Authorizing ProviderResult TypeResult StatusMoeliecer Whaley MDURINE ORDERABLES Final ResultPerforming OrganizationAddressCity/State/ZIP CodePhone Number [facility] [address] [place] [address], [place] [phone] * PST TOP (06/07/2025 8:02 PM EDT)ComponentValueRef RangeTest MethodAnalysis TimePerformed AtPathologist SignatureExtra TubeAuto Xglvaeok23/16/2025 10:02 PM [facility] LABORATORYSpecimen (Source)Anatomical Location / LateralityCollection Method / VolumeCollection TimeReceived TimeBloodVenous blood / Hiivzui9306/07/2025 8:02 PM EDT1 8:16 PM EDT Narrative Authorizing ProviderResult TypeResult StatusEhad Monika ZULUAGALAB BLOOD ORDERABLES Final ResultPerforming OrganizationAddressCity/State/ZIP CodePhone Number [facility] [address] [place] [address], [place] [phone] * Dilute Samia's Viper Venom Confirmation (06/07/2025 8:00 PM EDT)Specimen (Source)Anatomical Location / LateralityCollection Method / VolumeCollection TimeReceived TimeBloodVenous blood / UnknownVenipuncture / Hgqkxaw0206/07/2025 8:00 PM EDT1 8:15 PM EDT Narrative Authorizing ProviderResult TypeResult StatusOlubode Jonathan Alex MDLAB BLOOD ORDERABLESFinal ResultPerforming OrganizationAddressCity/State/ZIP CodePhone Number [facility] [address] [place] [address], * (ABNORMAL) Hemoglobin and hematocrit, blood (06/07/2025 8:00 PM EDT)Component ValueRef RangeTest MethodAnalysis TimePerformed AtPathologist Signature Cwznkgxgkg03.113 - 17 g/dL06/08/2025 3:47 AM [facility] OACQFEVKOGBwwqryzodr98.1(L)39 - 50 %06/08/2025 3:47 AM [facility] LABORATORYSpecimen (Source)Anatomical Location / LateralityCollection Method / VolumeCollection TimeReceived TimeBloodVenous blood / Unknown Venipuncture / Ksnvxeq4306/07/2025 8:00 PM EDT1 8:15 PM EDT Narrative Authorizing ProviderResult TypeResult StatusMohamad Bob BARNES BLOOD ORDERABLESFinal ResultPerforming OrganizationAddressCity/State/ZIP CodePhone Number [facility] [address] [place] [address], [place] [phone] * (ABNORMAL) Immunoelectrophoresis for Therapy Monitoring (06/07/2025 8:00 PM EDT)ComponentValueRef RangeTest MethodAnalysis TimePerformed AtPathologist GhuucglmbOBP15811 - 378 mg/dL06/13/2025 8:15 PM [facility] DPRUKVAPFDXRH703912 - 1,741 mg/dL06/13/2025 8:15 PM [facility] ZURYCDQNHIZZU45695 - 281 mg/dL06/13/2025 8:15 PM [facility] LABORATORYFREE KAPPA LT CHAINS3.96(H)0.33 - 1.94 mg/dL06/13/2025 8:15 PM [facility] LABORATORYImmune Profile InterpretationSee Pathology Dpeehw9106/13/2025 8:15 PM [facility] LABORATORYFREE LAMBDA LT CHAINS2.65(H)0.57 - 2.63 mg/dL06/13/2025 8:15 PM [facility] LABORATORYFREE JULIENNE/LAMBD RATIO1.490.26 - 1.6506/13/2025 8:15 PM EDT [facility]Source)Anatomical Location / LateralityCollection Method / VolumeCollection TimeReceived TimeBloodVenous blood / UnknownVenipuncture / Hlirdjc5506/07/2025 8:00 PM EDT1 8:15 PM EDT Narrative Authorizing ProviderResult TypeResult StatusMohamed Luciana BARNES BLOOD ORDERABLESFinal ResultPerforming OrganizationAddressCity/State/ZIP CodePhone Number [facility] [address] [place] [address], [place] [phone] * Cytoplasmic Neutrophilic Ab (ANCA), S (06/07/2025 8:00 PM EDT)ComponentValue Ref RangeTest MethodAnalysis TimePerformed AtPathologist SignatureC-ANCA XtxqckxxLydfqheo57/17/2025 2:44 PM [facility]IESP-ANCANegative Qsrtijdd53/17/2025 2:44 PM [facility] LABORATORIESComment: Negative for cANCA and pANCA patterns by immunofluorescence. ADDITIONAL INFORMATION This test was developed and its performance characteristics determined by [facility] in a manner consistent with CLIA requirements. This test has not been cleared or approved by the [place]. Food and Drug Administration. Test Performed by: [facility] [address] [facility] [address] [place] [address] [employer] Professional: Anastasiya Alegria Ph.D.; CLIA# [id number] Specimen (Source)Anatomical Location / LateralityCollection Method / Volume Collection TimeReceived TimeBloodVenous blood / UnknownVenipuncture / Unknown 06/07/2025 8:00 PM EDT1 8:15 PM EDT Narrative Authorizing ProviderResult TypeResult StatusMohamed Luciana Tolerx BLOOD ORDERABLESFinal ResultPerforming OrganizationAddressCity/State/ZIP CodePhone Number [facility] [address] [place] [address], * Glomerular basement membrane IgG AB (06/07/2025 8:00 PM EDT)ComponentValueRef RangeTest MethodAnalysis TimePerformed AtPathologist SignatureGBM IGG AB<0.2 <1.0 AI06/07/2025 10:33 PM [facility] LABORATORYSpecimen (Source)Anatomical Location / LateralityCollection Method / VolumeCollection TimeReceived TimeBloodVenous blood / UnknownVenipuncture / Dkgposc6606/07/2025 8:00 PM EDT1 8:15 PM EDT Narrative Authorizing ProviderResult TypeResult StatusMohamed Luciana Tolerx BLOOD ORDERABLESFinal ResultPerforming OrganizationAddressCity/State/ZIP CodePhone Number [facility] [address] [place] [address], [place] [phone] * (ABNORMAL) Hemoglobin A1c (06/07/2025 8:00 PM EDT)ComponentValueRef RangeTest MethodAnalysis TimePerformed AtPathologist SignatureHEMOGLOBIN A1C8.3(H)4.4 - 5.6 %06/07/2025 8:43 PM [facility] LABORATORYComment: ?ADA Guidelines ?Result ?HgbA1c ? Normal : ? less than 5.7 % ? Prediabetes : ?5.7 % ??to 6.4 % Diabetes : > 6.4 % ?Use with caution in patients with abnormal hemoglobin variants as ??the half-life of red blood cells and in vivo glycation rates are ??affected. EST. AVERAGE LPMUAFL267ql/dL06/07/2025 8:43 PM [facility] LABORATORYSpecimen (Source)Anatomical Location / LateralityCollection Method / VolumeCollection TimeReceived TimeBloodVenous blood / UnknownVenipuncture / Kxtiuyu2406/07/2025 8:00 PM EDT1 8:15 PM EDT Narrative Authorizing ProviderResult TypeResult StatusMohamed Luciana BARNES BLOOD ORDERABLESFinal ResultPerforming OrganizationAddressCity/State/ZIP CodePhone Number [facility] [address] [place] [address], [place] [phone] * (ABNORMAL) Protein electrophoresis, serum (06/07/2025 8:00 PM EDT)Component ValueRef RangeTest MethodAnalysis TimePerformed AtPathologist SignatureTOTAL PROTEIN5.9(L)6.0 - 8.0 g/dL06/11/2025 8:47 AM [facility] LABORATORYALPHA 1 GLOBULIN0.30.1 - 0.4 g/dL06/11/2025 8:47 AM [facility] LABORATORYALPHA 2 GLOBULIN0.60.4 - 1.1 g/dL06/11/2025 8:47 AM [facility] LABORATORYBETA GLOBULIN0.90.5 - 1.2 g/dL 06/11/2025 8:47 AM [facility] LABORATORYGAMMA GLOBULIN0.90.5 - 1.6 g/dL06/11/2025 8:47 AM [facility] LABORATORYProtein Electrophoresis InterpUnremarkable protein distribution, no monoclonal bands 06/11/2025 8:47 AM [facility] LABORATORYAlbumin3.3(L)3.4 - 5.3 g/dL06/11/2025 8:47 AM [facility] LABORATORYSpecimen (Source)Anatomical Location / LateralityCollection Method / VolumeCollection TimeReceived TimeBloodVenous blood / UnknownVenipuncture / Qsxwwlg5206/07/2025 8:00 PM EDT1 8:15 PM EDT Narrative Authorizing ProviderResult TypeResult StatusMohamed Luciana Ortiz MDNEWMAN REGION[facility] BLOOD ORDERABLESFinal ResultPerforming OrganizationAddressCity/State/ZIP CodePhone Number [facility] [address] [place] [address], * Hepatitis panel, acute (06/07/2025 8:00 PM EDT)ComponentValueRef RangeTest MethodAnalysis TimePerformed AtPathologist SignatureHEPATITIS B SURF AG Lhf-TbkzaxahJua-Wmxrvocc34/16/2025 10:26 PM [facility] LABORATORYHEPATITIS A IAHBkc-BavjqwjxLtj-Wkbvquqe31/16/2025 10:26 PM [facility] LABORATORYHEPATITIS B CORE YSMSpu-YdmosljiDmd-Hnuonztt 06/07/2025 10:26 PM [facility] LABORATORYANTI HCV W/PCR REFLX Upx-RtwcshrtSoy-Galtognj83/16/2025 10:26 PM [facility] LABORATORYComment: If recent infection suspected, recommend repeat testing (>2 months). Rfcroz-pl-vgpxoy ratio is <1.0. Specimen (Source)Anatomical Location / LateralityCollection Method / Volume Collection TimeReceived TimeBloodVenous blood / UnknownVenipuncture / Unknown 06/07/2025 8:00 PM EDT1 8:15 PM EDT Narrative Authorizing ProviderResult TypeResult StatusMohamed Luciana Ortiz the Shelf BLOOD ORDERABLESFinal ResultPerforming OrganizationAddressCity/State/ZIP CodePhone Number [facility] [address] [place] [address], * (ABNORMAL) Complement profile (C3 AND C4) (06/07/2025 8:00 PM EDT)Component ValueRef RangeTest MethodAnalysis TimePerformed AtPathologist Signature COMPLEMENT [id number] - 184 mg/dL06/07/2025 8:50 PM [facility] LABORATORYCOMPLEMENT C453(H)16 - 47 mg/dL06/07/2025 8:50 PM [facility] LABORATORYSpecimen (Source)Anatomical Location / LateralityCollection Method / VolumeCollection TimeReceived TimeBloodVenous blood / Unknown Venipuncture / Mgfnqse2006/07/2025 8:00 PM EDT1 8:15 PM EDT Narrative Authorizing ProviderResult TypeResult StatusMohamed Luciana Josealejandra the Shelf BLOOD ORDERABLESFinal ResultPerforming OrganizationAddressty/State/ZIP CodePhone Number [facility] [address] [place] [address], * Anti cardiolipin AB IgG IgA IgM (06/07/2025 8:00 PM EDT)ComponentValueRef RangeTest MethodAnalysis TimePerformed AtPathologist SignatureACA IGA<2.00.0 - 19.9 APL06/07/2025 9:47 PM [facility]ORATORYACA IGG<1.6 0.0 - 19.9 GPL1 9:47 PM [facility] LABORATORYACA IGM <1.50.0 - 19.9 MPL06/07/2025 9:47 PM [facility] Specimen (Source)Anatomical Location / LateralityCollection Method / Volume Collection TimeReceived TimeBloodVenous blood / UnknownVenipuncture / Unknown 06/07/2025 8:00 PM EDT1 8:15 PM EDT Narrative Authorizing ProviderResult TypeResult StatusOlubdarline Alex MDLAB BLOOD ORDERABLESFinal ResultPerforming OrganizationAddressCity/State/ZIP CodePhone Number [facility] [address] [place] [address], * DRVVT (06/07/2025 8:00 PM EDT)ComponentValueRef RangeTest MethodAnalysis Time Performed AtPathologist SignatureDILUTE SAMIA'S VIPER VENOMNEGATIVE FOR LUPUS QGUXDWBCDCIPN80/20/2025 9:36 AM [facility] Specimen (Source)Anatomical Location / LateralityCollection Method / Volume Collection TimeReceived TimeBloodVenous blood / UnknownVenipuncture / Unknown 06/07/2025 8:00 PM EDT1 8:15 PM EDT Narrative Authorizing ProviderResult TypeResult StatusOlkaushal BARNES BLOOD ORDERABLESFinal ResultPerforming OrganizationAddressCity/State/ZIP CodePhone Number [facility] [address] [place] [address], * Ultrasound retroperitoneal complete with duplex (06/07/2025 [...] 9:30 PM Authorizing ProviderResult TypeResult StatusMohamed Luciana WASSERMAN ORDERABLESFinal Result * (ABNORMAL) Urinalysis (06/07/2025 4:21 PM EDT)ComponentValueRef RangeTest MethodAnalysis TimePerformed AtPathologist SignatureCOLORYellowYellow 06/07/2025 7:03 PM [facility] LABORATORYTURBIDITYClearClear 06/07/2025 7:03 PM [facility] LABORATORYSPECIFIC GRAVITY1.015 1.003 - 1.4589306/07/2025 7:03 PM [facility] LABORATORYNITRITE MeuiodzzDldzwjnr87/16/2025 7:03 PM [facility] PH,URINE6.55.0 - 8.510 7:03 PM [facility] LEUKOCYTE TRXRAIVUAnimjidtKnvjmeyg42/16/2025 7:03 PM [facility] BQLTEEXAFIBFZYMYB42 mg/dL(A)Stglfmpv78/16/2025 7:03 PM [facility] LABORATORYKETONES (URINE)GaalqazcFfgwukmr94/16/2025 7:03 PM [facility] LABORATORYUROBILINOGEN<1.1 eu/dL<1.1 eu/dL 06/07/2025 7:03 PM [facility] LABORATORYBILIRUBIN (URINE) TnbjsmqlDuuawcjf10/16/2025 7:03 PM [facility] BLOOD/HGBSmall(A)Iaqmxttg81/16/2025 7:03 PM [facility] LABORATORYMUCOUSPresent(A)None06/07/2025 7:03 PM [facility] LABORATORYR.B.CELLS20 - 510 7:03 PM [facility] LABORATORYW.B.CELLS20 - 510 7:03 PM [facility] LABORATORYGLUCOSE (URINE)150 mg/dL(A)Waxzgqgs76/16/2025 7:03 PM [facility] LABORATORYSpecimen (Source)Anatomical Location / Laterality Collection Method / VolumeCollection TimeReceived TimeUrineUrine / Unknown 06/07/2025 4:21 PM EDT1 5:17 PM EDT Narrative Authorizing ProviderResult TypeResult StatusMohamed Luciana LEWIS ORDERABLES Final ResultPerforming OrganizationAddressCity/State/ZIP CodePhone Number [facility] [address] [place] [address], * (ABNORMAL) Protein creat ratio (06/07/2025 4:21 PM EDT)ComponentValueRef Range Test MethodAnalysis TimePerformed AtPathologist SignatureURINE PROTEIN, RANDOM (MG/L)1,120(H)<120 mg/L1 6:31 PM [facility] LABORATORYURINE CREATININE,TDG952.24mg/dL06/07/2025 6:31 PM [facility] LABORATORYU/PRO/MUCKER COFFERDAM RATIO CALC1.00(H)<=0. 6:31 PM EDT [facility]Source)Anatomical Location / LateralityCollection Method / VolumeCollection TimeReceived TimeUrineUrine / Attgecd7706/07/2025 4:21 PM EDT1 5:17 PM EDT Narrative [facility] - 06/07/2025 6:31 PM EDT Nephrotic Syndrome is associated with ratios >3.5 Authorizing ProviderResult TypeResult StatusMohamjoyce LEWIS ORDERABLES Final ResultPerforming OrganizationAddressCity/State/ZIP CodePhone Number [facility] [address] [place] [address], * (ABNORMAL) Microalbumin - Albumin: Creatinine Urine Ratio (06/07/2025 4:21 PM EDT)ComponentValueRef RangeTest MethodAnalysis TimePerformed AtPathologist SignatureURINE CREATININE,JHI855.24mg/dL06/07/2025 6:31 PM [facility] LABORATORYMALB/CREAT JRGKC304.9(H)0.0 - 30.0 mg/g1 6:31 PM [facility] LABORATORYMICROALBUMIN, URINE74.4(H)0.0 - 1.9 mg/dL06/07/2025 6:31 PM [facility] LABORATORYSpecimen (Source)Anatomical Location / LateralityCollection Method / VolumeCollection TimeReceived TimeUrineUrine / Fadfcfs3206/07/2025 4:21 PM EDT1 5:17 PM EDT Narrative Authorizing ProviderResult TypeResult StatusMohamjoyce LEWIS ORDERABLES Final ResultPerforming OrganizationAddressCity/State/ZIP CodePhone Number [facility] [address] [place] [address], * Sodium, urine, random (06/07/2025 4:21 PM EDT)ComponentValueRef RangeTest MethodAnalysis TimePerformed AtPathologist SignatureURINE SODIUM,IOIICH07 mmol/L1 6:31 PM [facility] LABORATORYSpecimen (Source)Anatomical Location / LateralityCollection Method / VolumeCollection TimeReceived TimeUrineUrine / Cnhnczg8906/07/2025 4:21 PM EDT1 5:17 PM EDT Narrative Authorizing ProviderResult TypeResult StatusMohamed Luciana LEWIS ORDERABLES Final ResultPerforming OrganizationAddressCity/State/ZIP CodePhone Number [facility] [address] [place] [address], * Urine Creatinine,random (06/07/2025 4:21 PM EDT)ComponentValueRef RangeTest MethodAnalysis TimePerformed AtPathologist SignatureURINE CREATININE,FZX147.24 mg/dL06/07/2025 6:31 PM [facility] LABORATORYSpecimen (Source)Anatomical Location / LateralityCollection Method / VolumeCollection TimeReceived TimeUrineUrine / Lcdtsva4606/07/2025 4:21 PM EDT1 5:17 PM EDT Narrative Authorizing ProviderResult TypeResult StatusMohamed Luciana LEWIS ORDERABLES Final ResultPerforming OrganizationAddressCity/State/ZIP CodePhone Number [facility] [address] [place] [address], * X-ray abdomen NG Tube placement 1 [...] 2:32 PM Authorizing ProviderResult TypeResult StatusSyed Jagdeep Baltazar MDIMG DIAGNOSTIC IMAGING ORDERABLESFinal Result * Rheumatoid factor (06/07/2025 12:27 PM EDT)ComponentValueRef RangeTest Method Analysis TimePerformed AtPathologist SignatureRHEUMATOID FACTOR<10<20 IU/mL 06/07/2025 3:08 PM [facility] LABORATORYSpecimen (Source) Anatomical Location / LateralityCollection Method / VolumeCollection Time Received TimeBloodVenous blood / UnknownVenipuncture / Yzxgawd3106/07/2025 12:27 PM EDT1 12:38 PM EDT Narrative Authorizing ProviderResult TypeResult StatusMohamed Luciana BARNES BLOOD ORDERABLESFinal ResultPerforming OrganizationAddressCity/State/ZIP CodePhone Number [facility] [address] [place] [address], [place] [phone] * LUIZA Screen w/ Reflex (06/07/2025 12:27 PM EDT)ComponentValueRef RangeTest MethodAnalysis TimePerformed AtPathologist SignatureANA SCREEN W/REFLEX PybnypaaAzueuiie12/16/2025 6:34 PM [facility] Specimen (Source)Anatomical Location / LateralityCollection Method / Volume Collection TimeReceived TimeBloodVenous blood / UnknownVenipuncture / Unknown 06/07/2025 12:27 PM EDT1 12:38 PM EDT Narrative [facility] - 06/07/2025 6:34 PM EDT Testing performed using multiplex flow immunoassay. Eleven difference antigens associated with systemic autoimmunie diseases (dsDNA, Sm, Sm/FIELD MACHINIST, FIELD MACHINIST, Chromatin, SSA, SSB, Katarina-1, Sc170, Ribo P, Centromere B) are included in this sreening tests. Authorizing ProviderResult TypeResult StatusMohamed A Tolerx BLOOD ORDERABLESFinal ResultPerforming OrganizationAddressCity/State/ZIP CodePhone Number [facility] [address] [place] [address], * HIV 1&2 AB/AG Screen (P24 AG) (06/07/2025 12:27 PM EDT)ComponentValueRef Range Test MethodAnalysis TimePerformed AtPathologist SignatureHIV 1 AND 2 AB/AG WGJGFEGep-WrkgwfpjUht-Gckzceee36/16/2025 5:19 PM [facility]ATORYSpecimen (Source)Anatomical Location / LateralityCollection Method / VolumeCollection TimeReceived TimeBloodVenous blood / UnknownVenipuncture / Nygpvix1906/07/2025 12:27 PM EDT1 12:38 PM EDT Narrative [facility] - 06/07/2025 5:19 PM EDT This [...] or diagnoses. Authorizing ProviderResult TypeResult StatusMohamed A Tolerx BLOOD ORDERABLESFinal ResultPerforming OrganizationAddressCity/State/ZIP CodePhone Number [facility] [address] [place] [address], [place] [phone] * DNA double-stranded (dsDNA) Abs (06/07/2025 12:27 PM EDT)ComponentValueRef RangeTest MethodAnalysis TimePerformed AtPathologist SignatureDouble Stranded DNA Ab<1<5 IU/ML06/07/2025 6:34 PM [facility] Specimen (Source)Anatomical Location / LateralityCollection Method / Volume Collection TimeReceived TimeBloodVenous blood / UnknownVenipuncture / Unknown 06/07/2025 12:27 PM EDT1 12:38 PM EDT Narrative [facility] - 06/07/2025 6:34 PM EDT Interpretation < 5 Negative 5 - 9 Indeterminate > 9 Positive Authorizing ProviderResult TypeResult StatusMohamed Luciana BARNES BLOOD ORDERABLESFinal ResultPerforming OrganizationAddressCity/State/ZIP CodePhone Number [facility] [address] [place] [address], * (ABNORMAL) Iron and TIBC (06/07/2025 12:27 PM EDT)ComponentValueRef RangeTest MethodAnalysis TimePerformed AtPathologist GodckaqaeUPBY1083 - 212 ug/dL 06/07/2025 2:44 PM [facility] ZAJTRSHDLDLSIDNEYVMZW997154 - 336 mg/dL06/07/2025 2:44 PM [facility] LABORATORYIRON BINDING 667326 - 425 ug/dL06/07/2025 2:44 PM [facility] IRON VYFYGNMVJA12(L)20 - 50 % UQOCMGNHNN54/16/2025 2:44 PM [facility] LABORATORYSpecimen (Source)Anatomical Location / LateralityCollection Method / VolumeCollection TimeReceived TimeBloodVenous blood / Unknown Venipuncture / Sobxajh7206/07/2025 12:27 PM EDT1 12:38 PM EDT Narrative Authorizing ProviderResult TypeResult StatusMohamed Luciana BARNES BLOOD ORDERABLESFinal ResultPerforming OrganizationAddressCity/State/ZIP CodePhone Number [facility] [address] [place] [address], [place] [phone] * Ferritin (06/07/2025 12:27 PM EDT)ComponentValueRef RangeTest MethodAnalysis TimePerformed AtPathologist KwzyqgfngNWXTQGBL82469 - 336 ng/mL06/07/2025 3:25 PM [facility] LABORATORYSpecimen (Source)Anatomical Location / LateralityCollection Method / VolumeCollection TimeReceived TimeBloodVenous blood / UnknownVenipuncture / Ifjpcrt8606/07/2025 12:27 PM EDT1 12:38 PM EDT Narrative Authorizing ProviderResult TypeResult StatusMohamed Luciana Ortiz MDBrain in Hand BLOOD ORDERABLESFinal ResultPerforming OrganizationAddressCity/State/ZIP CodePhone Number [facility] [address] [place] [address], * Vitamin B12 (06/07/2025 12:27 PM EDT)ComponentValueRef RangeTest Method Analysis TimePerformed AtPathologist SignatureVITAMIN [id number] - 914 pg/mL 06/07/2025 3:29 PM [facility] LABORATORYSpecimen (Source) Anatomical Location / LateralityCollection Method / VolumeCollection Time Received TimeBloodVenous blood / UnknownVenipuncture / Phfwhrb3806/07/2025 12:27 PM EDT1 12:38 PM EDT Narrative Authorizing ProviderResult TypeResult StatusMohamed Luciana Ortiz MDBrain in Hand BLOOD ORDERABLESFinal ResultPerforming OrganizationAddressCity/State/ZIP CodePhone Number [facility] [address] [place] [address], * Folate (06/07/2025 12:27 PM EDT)ComponentValueRef RangeTest MethodAnalysis TimePerformed AtPathologist SignatureFOLIC ACID11.1>5.8 ng/mL06/07/2025 3:28 PM [facility] LABORATORYSpecimen (Source)Anatomical Location / LateralityCollection Method / VolumeCollection TimeReceived TimeBloodVenous blood / UnknownVenipuncture / Luvnzbz7306/07/2025 12:27 PM EDT1 12:38 PM EDT Narrative Authorizing ProviderResult TypeResult StatusMohamed Luciana Ortiz MDBrain in Hand BLOOD ORDERABLESFinal ResultPerforming OrganizationAddressCity/State/ZIP CodePhone Number [facility] [address] [place] [address], * Beta-2 glycoprotein antibodies (06/07/2025 12:27 PM EDT)ComponentValueRef RangeTest MethodAnalysis TimePerformed AtPathologist SignatureBeta-2 Glycoproteins GPI IgG<1.40.0 - 19.9 u/mL06/07/2025 6:36 PM [facility] LABORATORYBeta-2 Glycoproteins GPI IgM<1.50.0 - 19.9 u/mL06/07/2025 6:36 PM [facility] LABORATORYBeta-2 Glycoproteins GPI IgA<2.0 0.0 - 19.9 u/mL06/07/2025 6:36 PM [facility] Specimen (Source)Anatomical Location / LateralityCollection Method / Volume Collection TimeReceived TimeBloodVenous blood / UnknownVenipuncture / Unknown 06/07/2025 12:27 PM EDT1 12:38 PM EDT Narrative Authorizing ProviderResult TypeResult StatusOlubode Jonathan lAex MDLAB BLOOD ORDERABLESFinal ResultPerforming OrganizationAddressCity/State/ZIP CodePhone Number [facility] [address] [place] [address], * Levetiracetam, S (06/07/2025 12:27 PM EDT)ComponentValueRef RangeTest Method Analysis TimePerformed AtPathologist SignatureLEVETIRACETAM, S26.510.0 - 40.0 mcg/mL06/08/2025 11:54 AM [facility]ORATORIESComment: ADDITIONAL INFORMATION This test was developed and its performance characteristics determined by [facility] in a manner consistent with CLIA requirements. This test has not been cleared or approved by the U.S. Food and Drug Administration. Test Performed by: [facility] [address] [facility] [place] [id number] [employer] Professional: Anastasiya Alegria Ph.D.; CLIA# [id number] Specimen (Source)Anatomical Location / LateralityCollection Method / Volume Collection TimeReceived TimeBloodVenous blood / UnknownVenipuncture / Unknown 06/07/2025 12:27 PM EDT1 12:38 PM EDT Narrative Authorizing ProviderResult TypeResult StatusAhmed A Adolph Butt MDLAB BLOOD ORDERABLESFinal ResultPerforming OrganizationAddressCity/State/ZIP CodePhone Number [facility] [address] [place] [address], * Potassium (06/07/2025 12:27 PM EDT)ComponentValueRef RangeTest MethodAnalysis TimePerformed AtPathologist SignaturePOTASSIUM3.63.5 - 5.0 mmol/L1 1:06 PM [facility] LABORATORYSpecimen (Source)Anatomical Location / LateralityCollection Method / VolumeCollection TimeReceived Time BloodVenous blood / UnknownVenipuncture / Wyxgsij4306/07/2025 12:27 PM EDT 06/07/2025 12:38 PM EDT Narrative Authorizing ProviderResult TypeResult StatusEhad Monika MDLAB BLOOD ORDERABLES Final ResultPerforming OrganizationAddressCity/State/ZIP CodePhone Number [facility] [address] [place] [address], * Resp Pathogens Panel/SARS CoV-2 (06/07/2025 11:11 AM EDT)ComponentValueRef RangeTest MethodAnalysis TimePerformed AtPathologist SignatureSARS COV 2 BY PCRNot DetectedNot Rerigjll43/16/2025 12:25 PM [facility] LABORATORYADENOVIRUSNot DetectedNot Qtzwukwz03/16/2025 12:25 PM [facility] LABORATORYCORONAVIRUS 229ENot DetectedNot Gfgucpju29/16/2025 12:25 PM [facility] LABORATORYCORONAVIRUS XMD8Mui DetectedNot Ccguioox65/16/2025 12:25 PM [facility] LABORATORYCORONAVIRUS LX06Syt DetectedNot Goiivhjo53/16/2025 12:25 PM [facility] LABORATORYCORONAVIRUS WU00Ssa DetectedNot Fnrgnzlr32/16/2025 12:25 PM EDT [facility]ORYHUMAN METAPNEUVIRUSNot DetectedNot Detected 06/07/2025 12:25 PM [facility] LABORATORYRHINO/ENTEROVIRUSNot DetectedNot Ltqepint97/16/2025 12:25 PM [facility] INFLUENZA ANot DetectedNot Vezfbtqo67/16/2025 12:25 PM [facility] LABORATORYINFLUENZA BNot DetectedNot Kpjtuswb87/16/2025 12:25 PM EDT [facility]ORYPARAINFLUENZA 1Not DetectedNot Detected 06/07/2025 12:25 PM [facility] LABORATORYPARAINFLUENZA 2Not DetectedNot Joftkroi88/16/2025 12:25 PM [facility] PARAINFLUENZA 3Not DetectedNot Jocqzzoy95/16/2025 12:25 PM [facility] LABORATORYPARAINFLUENZA 4Not DetectedNot Jxamlhpm92/16/2025 12:25 PM [facility] LABORATORYRESP SYNCYTIAL VIRUSNot DetectedNot Euvyndkq07/16/2025 12:25 PM [facility] LABORATORYBORD PARAPERTUSSISNot DetectedNot Nwladuzr28/16/2025 12:25 PM [facility] LABORATORYBORDETELLA PERTUSSISNot DetectedNot Srevhylj56/16/2025 12:25 PM [facility] LABORATORYCHLAM.PNEUMONIAENot DetectedNot Jkqqmqls80/16/2025 12:25 PM [facility] LABORATORYMYCOPLASMA PNEUMONIAENot DetectedNot Ftuwydbc46/16/2025 12:25 PM [facility] LABORATORYSpecimen (Source)Anatomical Location / LateralityCollection Method / VolumeCollection TimeReceived TimeSwabNasopharyngeal structure / Etsxqvj5106/07/2025 11:11 AM EDT1 11:24 AM EDT [facility] - 06/07/2025 12:25 PM EDT [...] other pathogens. The agent(s) detected by the Covestore RP2.1 may not be the definite cause [...] infection. Authorizing ProviderResult TypeResult StatusAhmed A Adolph Theportia MDMICROBIOLOGY - GENERAL ORDERABLESFinal ResultPerforming OrganizationAddressCity/State/ZIP Code Phone Number [facility] [address] [place] [address], * X-ray chest 1 view (06/07/2025 9:54 [...] on 06/07/2025 10:09 AM Authorizing ProviderResult TypeResult StatusMable Butt MDIMG DIAGNOSTIC IMAGING ORDERABLESFinal Result * (ABNORMAL) B-type natriuretic peptide (06/07/2025 4:07 AM EDT)ComponentValue Ref RangeTest MethodAnalysis TimePerformed AtPathologist WvijolpvzKMT013(H) <=100 pg/mL06/07/2025 10:25 AM [facility] LABORATORYSpecimen (Source)Anatomical Location / LateralityCollection Method / VolumeCollection TimeReceived TimeBloodVenous blood / UnknownVenipuncture / Xdgbcnq6606/07/2025 4:07 AM EDT1 4:23 AM EDT Narrative Authorizing ProviderResult TypeResult StatusAhmed Luciana Butt MDLAB BLOOD ORDERABLESFinal ResultPerforming OrganizationAddressCity/State/ZIP CodePhone Number [facility] [address] [place] [address], [place] [phone] * (ABNORMAL) CBC auto differential (06/07/2025 4:07 AM EDT)ComponentValueRef RangeTest MethodAnalysis TimePerformed AtPathologist SignatureWBC4.94 - 11 x10E9/L1 4:38 AM [facility] LABORATORYRBC Count4.22 4.1 - 5.7 X10E12/L1 4:38 AM [facility] Sezexhqacz39.513 - 17 g/dL06/07/2025 4:38 AM [facility] QXCJHJIVNJCjhexqcayr43.9(L)39 - 50 %06/07/2025 4:38 AM [facility] KEFKCHUNHCTZD4174 - 100 fL06/07/2025 4:38 AM [facility] MPUJBWUNXRLUF87.027 - 34 pg06/07/2025 4:38 AM [facility] [facility] DLFCBDWRCUBVHN03.832 - 36 g/dL06/07/2025 4:38 AM [facility] FRMIYAWSFVTTL31.611.5 - 15 %06/07/2025 4:38 AM [facility] LABORATORYPlatelet Cmfzw294764 - 450 X10E9/L1 4:38 AM [facility] LABORATORYMPV7.07 - 12 fL06/07/2025 4:38 AM [facility] LABORATORYNeutrophils %58.4%06/07/2025 4:38 AM [facility] LABORATORYLymphocytes %25.8%06/07/2025 4:38 AM [facility] LABORATORYMonocytes %10.9%06/07/2025 4:38 AM [facility] LABORATORYEosinophils %4.0%06/07/2025 4:38 AM [facility] LABORATORYBasophils %0.9%06/07/2025 4:38 AM [facility] LABORATORYNeutrophils Absolute (A)2.91.5 - 6.6 10*3/uL 06/07/2025 4:38 AM [facility] LABORATORYLymphocytes Absolute 1.31.0 - 3.5 10*3/uL06/07/2025 4:38 AM [facility] Monocytes Absolute0.50.0 - 0.9 10*3/uL06/07/2025 4:38 AM [facility] LABORATORYEosinophils Absolute0.20.0 - 0.4 10*3/uL06/07/2025 4:38 AM [facility] LABORATORYBasophils Absolute0.00.0 - 0.2 10*3/uL 06/07/2025 4:38 AM [facility] LABORATORYDifferential Type AUTOMATED MOTMESREPFIK86/16/2025 4:38 AM [facility] LABORATORYSpecimen (Source)Anatomical Location / LateralityCollection Method / VolumeCollection TimeReceived TimeBloodVenous blood / UnknownVenipuncture / Omdjuuc9006/07/2025 4:07 AM EDT1 4:23 AM EDT Narrative Authorizing ProviderResult TypeResult StatusFamatthew BARNES BLOOD ORDERABLES Final ResultPerforming OrganizationAddressCity/State/ZIP CodePhone Number [facility] [address] [place] [address], * (ABNORMAL) Comprehensive metabolic panel (06/07/2025 4:07 AM EDT)Component ValueRef RangeTest MethodAnalysis TimePerformed AtPathologist SignatureSODIUM 597407 - 146 mmol/L1 4:54 AM [facility] POTASSIUM3.53.5 - 5.0 mmol/L1 4:54 AM [facility] MXMZIYIKJULKXQPQXT17893 - 109 mmol/L1 4:54 AM [facility] LABORATORYCARBON IVKZLIO1113 - 32 mmol/L1 4:54 AM [facility] LABORATORYANION GAP95 - 15 mmol/L1 4:54 AM EDT [facility]ORYBLOOD UREA OLTUBZVN032 - 27 mg/dL06/07/2025 4:54 AM [facility] LABORATORYCREATININE1.49(H)0.60 - 1.30 mg/dL06/07/2025 4:54 AM [facility] LABORATORYComment:METHOD TRACEABLE TO IDMS KGYUZNRCIDPSLJP639(H)65 - 99 mg/dL06/07/2025 4:54 AM EDT [facility]ORATORYCALCIUM9.18.5 - 10.5 mg/dL06/07/2025 4:54 AM [facility] LABORATORYTOTAL PROTEIN6.46.0 - 8.0 g/dL 06/07/2025 4:54 AM [facility] LABORATORYALBUMIN3.53.2 - 5.3 g/dL06/07/2025 4:54 AM [facility] LABORATORYALKALINE PCHDXOPTMUH5859 - 130 U/L1 4:54 AM [facility] VRAPGSIGDUUJT25<=41 U/L1 4:54 AM [facility] LABORATORYALT7<=40 U/L1 4:54 AM [facility] LABORATORYBILIRUBIN,TOTAL0.70.3 - 1.2 mg/dL06/07/2025 4:54 AM [facility] LABORATORYEGFR Non-Race Mpupbmvkt04(L)>=60 ml/min/1.73sq.m 06/07/2025 4:54 AM [facility] LABORATORYComment: Reported eGFR is based on the CKD-EPI 2020 equation that does not use a race coefficient. Specimen (Source)Anatomical Location / LateralityCollection Method / Volume Collection TimeReceived TimeBloodVenous blood / UnknownVenipuncture / Unknown 06/07/2025 4:07 AM EDT1 4:23 AM EDT Narrative Authorizing ProviderResult TypeResult StatusFahpipe BARNES BLOOD ORDERABLES Final ResultPerforming OrganizationAddressCity/State/ZIP CodePhone Number [facility] [address] [place] [address], * MR brain with and without contrast (06/06/2025 11:53 PM EDT)Anatomical Region LateralityModalityNeuro, Head, Head and Neck, Neuro CoveraN/AMagnetic ResonanceSpecimen (Source)Anatomical Location / LateralityCollection Method / VolumeCollection TimeReceived Time06/06/2025 11:57 PM EDT Narrative 06/07/2025 12:03 AM EDT EXAM:MR BRAIN W WO CONT INDICATION: [facility] neuro deficit COMPARISON: CT of the [...] on 06/07/2025 12:03 AM Authorizing ProviderResult TypeResult StatusFapipe WASSERMAN MRI ORDERABLES Final Result * X-ray abdomen [...] the upper stomach, approximately 10 cmbeyond the [place] Finalized by Talat Elkins MD on 06/06/2025 11:38 AM Authorizing ProviderResult TypeResult StatusFaheritage valley health system Bang ZULUAGAIMFreeman DIAGNOSTIC IMAGING ORDERABLESFinal Result * EEG VIDEO MONITORING (06/06/2025 10:38 AM EDT)Specimen (Source)Anatomical Location / LateralityCollection Method / VolumeCollection TimeReceived Time Narrative MANUALLY TRANSCRIBED RESULTS - 06/06/2025 1:02 PM EDT Images from the original result were not included. ?? [facility] Neu[facility] Video/EEG Monitoring REPORT EEG Service Date(s): 06/06/25 from 06:30 until 10:35 Date of Report: 06/06/25 History: Gianni Babin is 70 y.o. 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 Centrally active medications: ??Keppra Procedure: This video/EEG monitoring was acquired with electrodes placed according to the Kyyqsbkginzkv51-62 electrode placement system,using collodion. The EEG was [...] the referring provider. Jennifer German M.D., Ph.D. [facility] Authorizing ProviderResult TypeResult StatusFaheritage valley health system Bang MDNEUROLOGY ORDERABLES Final ResultPerforming OrganizationAddressCity/State/ZIP CodePhone Number MANUALLY TRANSCRIBED RESULTS * CBC auto differential (06/06/2025 6:52 AM EDT)ComponentValueRef RangeTest MethodAnalysis TimePerformed AtPathologist SignatureWBC4.34 - 11 x10E9/L 06/06/2025 7:18 AM [facility] LABORATORYRBC Count4.274.1 - 5.7 X10E12/L1 7:18 AM [facility] Mfcikdinoz43.713 - 17 g/dL06/06/2025 7:18 AM [facility] VZGJDMKKZSIalppcfrsa65.239 - 50 %06/06/2025 7:18 AM [facility] NOVBOLTRDEELQ8021 - 100 fL06/06/2025 7:18 AM [facility] VJKXSFWLAALAC73.127 - 34 pg06/06/2025 7:18 AM [facility] DSKLNUKNCUBOJD79.032 - 36 g/dL06/06/2025 7:18 AM [facility] YAIAIBWRTQXLH78.311.5 - 15 %06/06/2025 7:18 AM [facility] LABORATORYPlatelet Dtstl287838 - 450 X10E9/L1 7:18 AM [facility] LABORATORYMPV7.17 - 12 fL06/06/2025 7:18 AM [facility] LABORATORYNeutrophils %56.3%06/06/2025 7:18 AM [facility] LABORATORYLymphocytes %27.0%06/06/2025 7:18 AM [facility] LABORATORYMonocytes %11.5%06/06/2025 7:18 AM [facility] LABORATORYEosinophils %4.2%06/06/2025 7:18 AM [facility] LABORATORYBasophils %1.0%06/06/2025 7:18 AM [facility] LABORATORYNeutrophils Absolute (A)2.41.5 - 6.6 10*3/uL 06/06/2025 7:18 AM [facility] LABORATORYLymphocytes Absolute 1.21.0 - 3.5 10*3/uL06/06/2025 7:18 AM [facility] Monocytes Absolute0.50.0 - 0.9 10*3/uL06/06/2025 7:18 AM [facility] LABORATORYEosinophils Absolute0.20.0 - 0.4 10*3/uL06/06/2025 7:18 AM [facility] LABORATORYBasophils Absolute0.00.0 - 0.2 10*3/uL 06/06/2025 7:18 AM [facility] LABORATORYDifferential Type AUTOMATED OOJXSTAXZYMB25/15/2025 7:18 AM [facility] LABORATORYSpecimen (Source)Anatomical Location / LateralityCollection Method / VolumeCollection TimeReceived TimeBloodVenous blood / UnknownVenipuncture / Hyxblxl4106/06/2025 6:52 AM EDT1 7:02 AM EDT Narrative Authorizing ProviderResult TypeResult StatusFamatthew BARNES BLOOD ORDERABLES Final ResultPerforming OrganizationAddressCity/State/ZIP CodePhone Number [facility] [address] [place] [phone], * (ABNORMAL) Comprehensive metabolic panel (06/06/2025 6:52 AM EDT)Component ValueRef RangeTest MethodAnalysis TimePerformed AtPathologist SignatureSODIUM 005629 - 146 mmol/L1 7:36 AM [facility] POTASSIUM3.53.5 - 5.0 mmol/L1 7:36 AM [facility] UUWKFFQWYGJKUPVYQV42108 - 109 mmol/L1 7:36 AM [facility] LABORATORYCARBON ULOQZWQ8783 - 32 mmol/L1 7:36 AM [facility] LABORATORYANION VES009 - 15 mmol/L1 7:36 AM EDT [facility]ORYBLOOD UREA HTJKTVUY122 - 27 mg/dL06/06/2025 7:36 AM [facility] LABORATORYCREATININE1.43(H)0.60 - 1.30 mg/dL06/06/2025 7:36 AM [facility] LABORATORYComment:METHOD TRACEABLE TO IDFL MMTZKPYWERIHMIF483(H)65 - 99 mg/dL06/06/2025 7:36 AM EDT [facility]ORATORYCALCIUM8.68.5 - 10.5 mg/dL06/06/2025 7:36 AM [facility] LABORATORYTOTAL PROTEIN6.26.0 - 8.0 g/dL 06/06/2025 7:36 AM [facility] LABORATORYALBUMIN3.43.2 - 5.3 g/dL06/06/2025 7:36 AM [facility] LABORATORYALKALINE TCWVETNDJGS5149 - 130 U/L1 7:36 AM [facility] AKYKZWTXBZEFU07<=41 U/L1 7:36 AM [facility] LABORATORYALT8<=40 U/L1 7:36 AM [facility] LABORATORYBILIRUBIN,TOTAL0.70.3 - 1.2 mg/dL06/06/2025 7:36 AM [facility] LABORATORYEGFR Non-Race Ybubawqvi31(L)>=60 ml/min/1.73sq.m 06/06/2025 7:36 AM [facility] LABORATORYComment: Reported eGFR is based on the CKD-EPI 2020 equation that does not use a race coefficient. Specimen (Source)Anatomical Location / LateralityCollection Method / Volume Collection TimeReceived TimeBloodVenous blood / UnknownVenipuncture / Unknown 06/06/2025 6:52 AM EDT1 7:02 AM EDT Narrative Authorizing ProviderResult TypeResult StatusFahpipe BARNES BLOOD ORDERABLES Final ResultPerforming OrganizationAddressCity/State/ZIP CodePhone Number [facility] [address] [place] [address], * EEG VIDEO MONITORING IN PROGRESS (06/06/2025 6:00 AM EDT)Specimen (Source) Anatomical Location / LateralityCollection Method / VolumeCollection Time Received Time Narrative MANUALLY TRANSCRIBED RESULTS - 06/06/2025 9:20 AM EDT Images from the original result were not included. ?? [facility] Neurology Video/EEG Monitoring REPORT EEG Service Date(s): 06/05/25 @ 06:30 until @ 06:30 Date of Report: 06/06/25 History: Gianni Babin is 70 y.o. 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 Centrally active medications: ??Keppra Procedure: This video/EEG monitoring was acquired with electrodes placed according to the Fgfwdvuuvxbgg48-63 electrode placement system,using collodion. The EEG was [...] the referring provider. Jennifer German M.D., Ph.D. [employer] Background with right temporal slowing Authorizing ProviderResult TypeResult StatusFamatthew Cuenca MDNEUROLOGY ORDERABLES Final ResultPerforming OrganizationAddressCity/State/ZIP CodePhone Number MANUALLY TRANSCRIBED RESULTS * (ABNORMAL) Bedside Glucose *Place/Obtain serum glucose if >500 per glucometer. (06/05/2025 3:52 PM EDT)ComponentValueRef RangeTest MethodAnalysis Time Performed AtPathologist SignatureBedside Glucose (POC)145(H)65 - 99 mg/dL 06/05/2025 3:58 PM [facility] LABORATORYSpecimen (Source)Anatomical Location / LateralityCollection Method / VolumeCollection TimeReceived Time arterial/jfydnfacp20/14/2025 3:52 PM EDT1 3:58 PM EDT Narrative Authorizing ProviderResult TypeResult StatusEhad Monika MDPOINT OF CARE TEST ORDERABLESFinal ResultPerforming OrganizationAddressCity/State/ZIP CodePhone Number [facility] [address] [place] [address], [place] * (ABNORMAL) Potassium (06/05/2025 2:45 PM EDT)ComponentValueRef RangeTest MethodAnalysis TimePerformed AtPathologist SignaturePOTASSIUM3.3(L)3.5 - 5.0 mmol/L1 3:47 PM [facility] LABORATORYSpecimen (Source)Anatomical Location / LateralityCollection Method / VolumeCollection TimeReceived TimeBloodVenous blood / Nbdbyen3406/05/2025 2:45 PM EDT1 3:01 PM EDT Narrative Authorizing ProviderResult TypeResult StatusEhad Monika MDLAB BLOOD ORDERABLES Final ResultPerforming OrganizationAddressCity/State/ZIP CodePhone Number [facility] [address] [place] [address], [place] [phone] * (ABNORMAL) Bedside Glucose *Place/Obtain serum glucose if >500 per glucometer. (06/05/2025 11:58AM EDT)ComponentValueRef RangeTest MethodAnalysis Time Performed AtPathologist SignatureBedside Glucose (POC)140(H)65 - 99 mg/dL 06/05/2025 12:06 PM [facility] LABORATORYSpecimen (Source)Anatomical Location / LateralityCollection Method / VolumeCollection TimeReceived Time arterial/yywqhmxqc08/14/2025 11:58 AM EDT1 12:06 PM EDT Narrative Authorizing ProviderResult TypeResult StatusEhad Monika MDPOINT OF CARE TEST ORDERABLESFinal ResultPerforming OrganizationAddressCity/State/ZIP CodePhone Number [facility] [address] [place] [address], [place] * (ABNORMAL) Bedside Glucose *Place/Obtain serum glucose if >500 per glucometer. (06/05/2025 8:20 AM EDT)ComponentValueRef RangeTest MethodAnalysis Time Performed AtPathologist SignatureBedside Glucose (POC)147(H)65 - 99 mg/dL 06/05/2025 8:25 AM [facility] LABORATORYSpecimen (Source)Anatomical Location / LateralityCollection Method / VolumeCollection TimeReceived Time arterial/ccdflrfug69/14/2025 8:20 AM EDT1 8:25 AM EDT Narrative Authorizing ProviderResult TypeResult StatusEhad Monika MDPOINT OF CARE TEST ORDERABLESFinal ResultPerforming OrganizationAddressCity/State/ZIP CodePhone Number [facility] [address] [place] [address], [place] * CT brain without contrast (06/05/2025 [...] on 06/05/2025 8:18 AM Authorizing ProviderResult TypeResult StatusNakia Delgado MDFreeman CT ORDERABLESFinal Result * EEG VIDEO MONITORING IN PROGRESS (06/05/2025 6:00 AM EDT)Specimen (Source) Anatomical Location / LateralityCollection Method / VolumeCollection Time Received Time Narrative MANUALLY TRANSCRIBED RESULTS - 06/05/2025 10:50 AM EDT Images from the original result were not included. ?? [facility] Neurology Video/EEG Monitoring REPORT EEG Service Date(s): 06/05/25 form 04:27 until 06:30 Date of Report: 06/05/25 History: Gianni Babin is 70 y.o. 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 Centrally active medications: ??Keppra Procedure: This video/EEG monitoring was acquired with electrodes placed according to the Odxwbrqnfxebn67-77 electrode placement system,using collodion. The EEG was [...] seizures were recorded. Jennifer German M.D., Ph.D. [employer] Authorizing ProviderResult TypeResult StatusFaFormerly [facility] MDNEUROLOGY ORDERABLES Final ResultPerforming OrganizationAddressCity/State/ZIP CodePhone Number MANUALLY TRANSCRIBED RESULTS * EEG (06/05/2025 4:24 AM EDT)Specimen (Source)Anatomical Location / Laterality Collection Method / VolumeCollection TimeReceived Time Narrative MANUALLY TRANSCRIBED RESULTS - 06/05/2025 10:46 AM EDT Images from the original result were not included. ?? [facility] Neurology EEG REPORT EEG Service Date: 06/05/25 Date of Report: 06/05/25 History: Gianni Babin is a 70 y.o. male with altered mental status and right intraparenchymal hemorrhage who is undergoing EEG to evaluate for seizures. Centrally active medications: ??Keppra. Procedure: This EEG was acquired with electrodes placed according to the Cvmoyszbdwtwo49-89 electrode placement system. The EEG was acquired [...] intermittent seizures. ?? Jennifer German M.D., Ph.D. [employer] [facility] Background Authorizing ProviderResult TypeResult StatusFaFormerly [facility] MDNEUROLOGY ORDERABLES Final ResultPerforming OrganizationAddressCity/State/ZIP CodePhone Number MANUALLY TRANSCRIBED RESULTS * (ABNORMAL) CBC auto differential (06/05/2025 3:10 AM EDT)ComponentValueRef RangeTest MethodAnalysis TimePerformed AtPathologist SignatureWBC4.44 - 11 x10E9/L1 4:24 AM [facility] LABORATORYRBC Count4.12 4.1 - 5.7 X10E12/L1 4:24 AM [facility] Hrcdmogiuu01.313 - 17 g/dL06/05/2025 4:24 AM [facility] GUHHSKAZLSWcaletxfvq06.3(L)39 - 50 %06/05/2025 4:24 AM [facility] XNCTQPPIFWLZB4561 - 100 fL06/05/2025 4:24 AM [facility] EJPQWIUVGWMBD55.427 - 34 pg06/05/2025 4:24 AM [facility] GWZPBYDKWXZRWJ39.732 - 36 g/dL06/05/2025 4:24 AM [facility] HJVQHHIGCYFQR74.511.5 - 15 %06/05/2025 4:24 AM [facility] LABORATORYPlatelet Zlcaz393787 - 450 X10E9/L1 4:24 AM [facility] LABORATORYMPV7.37 - 12 fL06/05/2025 4:24 AM [facility] LABORATORYNeutrophils %58.2%06/05/2025 4:24 AM [facility] LABORATORYLymphocytes %26.5%06/05/2025 4:24 AM [facility] LABORATORYMonocytes %10.5%06/05/2025 4:24 AM [facility] LABORATORYEosinophils %3.6%06/05/2025 4:24 AM [facility] LABORATORYBasophils %1.2%06/05/2025 4:24 AM [facility] LABORATORYNeutrophils Absolute (A)2.61.5 - 6.6 10*3/uL 06/05/2025 4:24 AM [facility] LABORATORYLymphocytes Absolute 1.21.0 - 3.5 10*3/uL06/05/2025 4:24 AM [facility] Monocytes Absolute0.50.0 - 0.9 10*3/uL06/05/2025 4:24 AM [facility] LABORATORYEosinophils Absolute0.20.0 - 0.4 10*3/uL06/05/2025 4:24 AM [facility] LABORATORYBasophils Absolute0.10.0 - 0.2 10*3/uL 06/05/2025 4:24 AM [facility] LABORATORYDifferential Type AUTOMATED JCZZEOAVKIGQ27/14/2025 4:24 AM [facility] LABORATORYSpecimen (Source)Anatomical Location / LateralityCollection Method / VolumeCollection TimeReceived TimeBloodVenous blood / UnknownVenipuncture / Patjwsx1606/05/2025 3:10 AM EDT1 4:10 AM EDT Narrative Authorizing ProviderResult TypeResult StatusFamatthew BARNES BLOOD ORDERABLES Final ResultPerforming OrganizationAddressCity/State/ZIP CodePhone Number [facility] [address] [place] [address], * (ABNORMAL) Comprehensive metabolic panel (06/05/2025 3:10 AM EDT)Component ValueRef RangeTest MethodAnalysis TimePerformed AtPathologist SignatureSODIUM 570041 - 146 mmol/L1 4:38 AM [facility] POTASSIUM3.3(L)3.5 - 5.0 mmol/L1 4:38 AM [facility] JHIJXARYLREZWGQKWB40594 - 109 mmol/L1 4:38 AM [facility] LABORATORYCARBON UDYTCRE3830 - 32 mmol/L1 4:38 AM [facility] LABORATORYANION GAP85 - 15 mmol/L1 4:38 AM EDT [facility]ATORYBLOOD UREA BFKGMCGS222 - 27 mg/dL06/05/2025 4:38 AM [facility] LABORATORYCREATININE1.44(H)0.60 - 1.30 mg/dL06/05/2025 4:38 AM [facility] LABORATORYComment:METHOD TRACEABLE TO IDMS ISHAUTLHTGZSSUZ792(H)65 - 99 mg/dL06/05/2025 4:38 AM EDT [facility] LABORATORYCALCIUM8.78.5 - 10.5 mg/dL06/05/2025 4:38 AM [facility] LABORATORYTOTAL PROTEIN6.16.0 - 8.0 g/dL 06/05/2025 4:38 AM [facility] LABORATORYALBUMIN3.33.2 - 5.3 g/dL06/05/2025 4:38 AM [facility] LABORATORYALKALINE PIUVAFXXCCV6701 - 130 U/L1 4:38 AM [facility] NMBUDZEUXQUZX32<=41 U/L1 4:38 AM [facility] LABORATORYALT7<=40 U/L1 4:38 AM [facility] LABORATORYBILIRUBIN,TOTAL0.60.3 - 1.2 mg/dL06/05/2025 4:38 AM [facility] LABORATORYEGFR Non-Race Sctmkshdy05(L)>=60 ml/min/1.73sq.m 06/05/2025 4:38 AM [facility] LABORATORYComment: Reported eGFR is based on the CKD-EPI 2020 equation that does not use a race coefficient. Specimen (Source)Anatomical Location / LateralityCollection Method / Volume Collection TimeReceived TimeBloodVenous blood / UnknownVenipuncture / Unknown 06/05/2025 3:10 AM EDT1 4:10 AM EDT Narrative Authorizing ProviderResult TypeResult StatusFamatthew BARNES BLOOD ORDERABLES Final ResultPerforming OrganizationAddressCity/State/ZIP CodePhone Number [facility] [address] [place] [address], * (ABNORMAL) Lipid profile (06/05/2025 3:10 AM EDT)ComponentValueRef RangeTest MethodAnalysis TimePerformed AtPathologist VezphxfjcPPANYKSSNHU500551 - 200 mg/dL06/05/2025 4:38 AM [facility] ARNEHENMNZVRQOISRCNABO372 (H)27 - 150 mg/dL06/05/2025 4:38 AM [facility] LABORATORYHDL URNGOKPTFFX59(L)>39 mg/dL06/05/2025 4:38 AM [facility] LABORATORYComment: HDL <40 mg/dL - High Risk HDL > or = 40mg/dL- Desirable HDL >60 mg/dL - Negative Risk LDL (CALC)77<130 mg/dL06/05/2025 4:38 AM [facility] Comment: LDL <100 mg/dL - Desirable LDL >160 mg/dL - High Risk CHOLESTEROL:HDL5.01.0 - 5.010/ 4:38 AM [facility] LABORATORYVERY LOW RYIKZBICQRL60(H)0 - 30 mg/dL06/05/2025 4:38 AM [facility] LABORATORYSpecimen (Source)Anatomical Location / Laterality Collection Method / VolumeCollection TimeReceived TimeBloodVenous blood / UnknownVenipuncture / Cgzqutg2006/05/2025 3:10 AM EDT1 4:10 AM EDT Narrative Authorizing ProviderResult TypeResult StatusFamatthew BARNES BLOOD ORDERABLES Final ResultPerforming OrganizationAddressCity/State/ZIP CodePhone Number [facility] [address] [place] [address], * CT brain without contrast (06/05/2025 1:57 [...] on 06/05/2025 4:50 AM Authorizing ProviderResult TypeResult StatusRadha Danny MDIMG CT ORDERABLESFinal Result * (ABNORMAL) Bedside Glucose *Place/Obtain serum glucose if >500 per glucometer. (06/04/2025 9:35 PM EDT)ComponentValueRef RangeTest MethodAnalysis Time Performed AtPathologist SignatureBedside Glucose (POC)180(H)65 - 99 mg/dL 06/04/2025 9:41 PM [facility] LABORATORYSpecimen (Source)Anatomical Location / LateralityCollection Method / VolumeCollection TimeReceived Time arterial/dftwcdexn71/13/2025 9:35 PM EDT1 9:41 PM EDT Narrative Authorizing ProviderResult TypeResult StatusEhad Monika MDPOINT OF CARE TEST ORDERABLESFinal ResultPerforming OrganizationAddressCity/State/ZIP CodePhone Number [facility] [address] [place] [address], * CBC auto differential (06/04/2025 7:58 PM EDT)ComponentValueRef RangeTest MethodAnalysis TimePerformed AtPathologist SignatureWBC5.94 - 11 x10E9/L 06/04/2025 8:29 PM [facility] LABORATORYRBC Count4.474.1 - 5.7 X10E12/L1 8:29 PM [facility] Jdpaqznzlf27.713 - 17 g/dL06/04/2025 8:29 PM [facility] MPZCBXRDYKFvnipcnoqt66.539 - 50 %06/04/2025 8:29 PM [facility] SKPGAINUNSNYY1926 - 100 fL06/04/2025 8:29 PM [facility] IEPJYTMVWZRIC69.627 - 34 pg06/04/2025 8:29 PM [facility] XGPPQAGHKYWXEK96.732 - 36 g/dL06/04/2025 8:29 PM [facility] HTJBPZLRYBAHX77.611.5 - 15 %06/04/2025 8:29 PM [facility] LABORATORYPlatelet [id number] - 450 X10E9/L1 8:29 PM [facility]ORYMPV7.17 - 12 fL06/04/2025 8:29 PM [facility] LABORATORYNeutrophils %60.4%06/04/2025 8:29 PM [facility] LABORATORYLymphocytes %26.8%06/04/2025 8:29 PM [facility] LABORATORYMonocytes %9.2%06/04/2025 8:29 PM [facility] LABORATORYEosinophils %2.6%06/04/2025 8:29 PM [facility] LABORATORYBasophils %1.0%06/04/2025 8:29 PM [facility] LABORATORYNeutrophils Absolute (A)3.51.5 - 6.6 10*3/uL 06/04/2025 8:29 PM [facility] LABORATORYLymphocytes Absolute 1.61.0 - 3.5 10*3/uL06/04/2025 8:29 PM [facility] Monocytes Absolute0.50.0 - 0.9 10*3/uL06/04/2025 8:29 PM [facility] LABORATORYEosinophils Absolute0.20.0 - 0.4 10*3/uL06/04/2025 8:29 PM [facility] LABORATORYBasophils Absolute0.10.0 - 0.2 10*3/uL 06/04/2025 8:29 PM [facility] LABORATORYDifferential Type AUTOMATED ECKZTXXZZLYR81/13/2025 8:29 PM [facility] LABORATORYSpecimen (Source)Anatomical Location / LateralityCollection Method / VolumeCollection TimeReceived TimeBloodVenous blood / Colband7806/04/2025 7:58 PM EDT1 8:09 PM EDT Narrative Authorizing ProviderResult TypeResult StatusFamatthew BARNES BLOOD ORDERABLES Final ResultPerforming OrganizationAddressCity/State/ZIP CodePhone Number [facility] [address] [place] [address], * (ABNORMAL) Comprehensive metabolic panel (06/04/2025 7:58 PM EDT)Component ValueRef RangeTest MethodAnalysis TimePerformed AtPathologist SignatureSODIUM [id number] - 146 mmol/L1 8:37 PM [facility] POTASSIUM3.3(L)3.5 - 5.0 mmol/L1 8:37 PM [facility] CXBRIFXCWIHNOYFRNN16103 - 109 mmol/L1 8:37 PM [facility] LABORATORYCARBON VVEYQJI7762 - 32 mmol/L1 8:37 PM [facility] LABORATORYANION GAP95 - 15 mmol/L1 8:37 PM EDT [facility]ORYBLOOD UREA URKKVWBU754 - 27 mg/dL06/04/2025 8:37 PM [facility] LABORATORYCREATININE1.42(H)0.60 - 1.30 mg/dL06/04/2025 8:37 PM [facility] LABORATORYComment:METHOD TRACEABLE TO IDFL TYKVOLWREGYMKLS735(H)65 - 99 mg/dL06/04/2025 8:37 PM EDT [facility]ORYCALCIUM8.88.5 - 10.5 mg/dL06/04/2025 8:37 PM [facility] LABORATORYTOTAL PROTEIN6.36.0 - 8.0 g/dL 06/04/2025 8:37 PM [facility] LABORATORYALBUMIN3.43.2 - 5.3 g/dL06/04/2025 8:37 PM [facility] LABORATORYALKALINE LRDZRARSSJE2626 - 130 U/L1 8:37 PM [facility] WYOTLNFTRBQBQ62<=41 U/L1 8:37 PM [facility] LABORATORYALT9<=40 U/L1 8:37 PM [facility] LABORATORYBILIRUBIN,TOTAL0.60.3 - 1.2 mg/dL06/04/2025 8:37 PM [facility] LABORATORYEGFR Non-Race Pgmimgzdy76(L)>=60 ml/min/1.73sq.m 06/04/2025 8:37 PM [facility] LABORATORYComment: Reported eGFR is based on the CKD-EPI 2020 equation that does not use a race coefficient. Specimen (Source)Anatomical Location / LateralityCollection Method / Volume Collection TimeReceived TimeBloodVenous blood / Sccgths0406/04/2025 7:58 PM EDT 06/04/2025 8:09 PM EDT Narrative Authorizing ProviderResult TypeResult StatusFamatthew BARNES BLOOD ORDERABLES Final ResultPerforming OrganizationAddressCity/State/ZIP CodePhone Number [facility] [address] [place] [address], * Type and screen(includes indirect rita) (06/04/2025 7:58 PM EDT)Component ValueRef RangeTest MethodAnalysis TimePerformed AtPathologist SignatureABOO 06/04/2025 9:01 PM [facility] DTHOBPRBVQRSIphqjqha75/13/2025 9:01 PM [facility] LABORATORYAntibody AfemvjYqewphrz95/13/2025 9:01 PM EDT [facility] LABORATORYSpecimen (Source)Anatomical Location / Laterality Collection Method / VolumeCollection TimeReceived TimeBloodVenous blood / Agouxxn6306/04/2025 7:58 PM EDT1 8:13 PM EDT Narrative Authorizing ProviderResult TypeResult StatusManal W Luis DOBLOOD BANK TEST ORDERABLESEdited Result - FinalPerforming OrganizationAddressCity/State/ZIP Code Phone Number [facility] [address] [place] [address], [facility] [address] [place] [address], * (ABNORMAL) Bedside Glucose *Place/Obtain serum glucose if >500 per glucometer. (06/04/2025 7:54 PM EDT)ComponentValueRef RangeTest MethodAnalysis Time Performed AtPathologist SignatureBedside Glucose (POC)161(H)65 - 99 mg/dL 06/04/2025 7:55 PM [facility] LABORATORYSpecimen (Source)Anatomical Location / LateralityCollection Method / VolumeCollection TimeReceived Time arterial/igjevegqt98/13/2025 7:54 PM EDT1 7:55 PM EDT Narrative Authorizing ProviderResult TypeResult StatusManal W Luis DOPOINT OF CARE TEST ORDERABLESFinal ResultPerforming OrganizationAddressCity/State/ZIP CodePhone Number [facility] [address] [place] [address], * ABO Rh Repeat (06/04/2025 6:00 PM EDT)ComponentValueRef RangeTest Method Analysis TimePerformed AtPathologist IgpjklokcZKNU29/13/2025 6:37 PM [facility] RKTXIYMAYUUSZfjdgwtg20/13/2025 6:37 PM [facility] Specimen (Source)Anatomical Location / LateralityCollection Method / Volume Collection TimeReceived Time06/04/2025 6:00 PM EDT1 6:24 PM EDT Narrative Authorizing ProviderResult TypeResult StatusManal Lanette Smith DOBLOOD BANK TEST ORDERABLESFinal ResultPerforming OrganizationAddressCity/State/ZIP CodePhone Number [facility] [address] [place] [address], * (ABNORMAL) Hemoglobin A1c (06/04/2025 6:00 PM EDT)ComponentValueRef RangeTest MethodAnalysis TimePerformed AtPathologist SignatureHEMOGLOBIN A1C8.9(H)4.4 - 5.6 %06/04/2025 8:33 PM [facility] LABORATORYComment: ?ADA Guidelines ?Result ?HgbA1c ? Normal : ? less than 5.7 % ? Prediabetes : ?5.7 % ??to 6.4 % Diabetes : > 6.4 % ?Use with caution in patients with abnormal hemoglobin variants as ??the half-life of red blood cells and in vivo glycation rates are ??affected. EST. AVERAGE BKZVWHD325yc/dL06/04/2025 8:33 PM [facility] LABORATORYSpecimen (Source)Anatomical Location / LateralityCollection Method / VolumeCollection TimeReceived TimeBloodVenous blood / Slusjsp7906/04/2025 6:00 PM EDT1 6:14 PM EDT Narrative Authorizing ProviderResult TypeResult StatusFamatthew BARNES BLOOD ORDERABLES Final ResultPerforming OrganizationAddressCity/State/ZIP CodePhone Number [facility] [address] [place] [address], * Cruz Top On Ice (06/04/2025 6:00 PM EDT)ComponentValueRef RangeTest Method Analysis TimePerformed AtPathologist SignatureExtra TubeAuto Resulted 06/04/2025 7:01 PM [facility] LABORATORYSpecimen (Source) Anatomical Location / LateralityCollection Method / VolumeCollection Time Received TimeBloodVenous blood / Sxaxxmt0306/04/2025 6:00 PM EDT1 6:14 PM EDT Narrative Authorizing ProviderResult TypeResult StatusManal W Luis DOLAB BLOOD ORDERABLES Final ResultPerforming OrganizationAddressCity/State/ZIP CodePhone Number [facility] [address] [place] [address], * Lavender Top (06/04/2025 6:00 PM EDT)ComponentValueRef RangeTest Method Analysis TimePerformed AtPathologist SignatureExtra TubeAuto Resulted 06/04/2025 7:01 PM [facility] LABORATORYSpecimen (Source) Anatomical Location / LateralityCollection Method / VolumeCollection Time Received TimeBloodVenous blood / Xhnbtdi9306/04/2025 6:00 PM EDT1 6:14 PM EDT Narrative Authorizing ProviderResult TypeResult StatusManal W Luis DOLAB BLOOD ORDERABLES Final ResultPerforming OrganizationAddressCity/State/ZIP CodePhone Number [facility] [address] [place] [address], * PST TOP (06/04/2025 6:00 PM EDT)ComponentValueRef RangeTest MethodAnalysis TimePerformed AtPathologist SignatureExtra TubeAuto Gueyaegk08/13/2025 7:01 PM [facility] LABORATORYSpecimen (Source)Anatomical Location / LateralityCollection Method / VolumeCollection TimeReceived TimeBloodVenous blood / Aolyvzu0306/04/2025 6:00 PM EDT1 6:14 PM EDT Narrative Authorizing ProviderResult TypeResult StatusManal W Luis DOLAB BLOOD ORDERABLES Final ResultPerforming OrganizationAddressCity/State/ZIP CodePhone Number [facility] [address] [place] [address], * Light Blue Top (06/04/2025 6:00 PM EDT)ComponentValueRef RangeTest Method Analysis TimePerformed AtPathologist SignatureExtra TubeAuto Resulted 06/04/2025 7:01 PM [facility] LAB[facility]ATORYSpecimen (Source) Anatomical Location / LateralityCollection Method / VolumeCollection Time Received TimeBloodVenous blood / Ozwfjit0806/04/2025 6:00 PM EDT1 6:14 PM EDT Narrative Authorizing ProviderResult TypeResult StatusManal W Luis ANDERSON BLOOD ORDERABLES Final ResultPerforming OrganizationAddressCity/State/ZIP CodePhone Number [facility] [address] [place] [address], documented in this encounter Visit Diagnoses Diagnosis ICH (intracerebral hemorrhage) ([facility] Primary Intracerebral hemorrhage Traumatic intracerebral hemorrhage with unknown loss of consciousness status, unspecified laterality, subsequent encounter Type 2 diabetes mellitus with other specified complication, unspecified whether detention insulin use ([facility]) Nontraumatic intracerebral hemorrhage, unspecified cerebral location, unspecified laterality ([facility]) documented in this encounter Admitting Diagnoses Diagnosis ICH (intracerebral hemorrhage) ([facility]) Intracerebral hemorrhage documented in this encounter Administered Medications Medication OrderMAR ActionAction DateDoseRateSite acetaminophen (OFIRMEV) IVPB Premix 1,000 mg 1,000 mg, intravenous, at 400 mL/hr, Administer over 15 Minutes, Every 6 hours PRN, mild pain - pain scale 1-3, headaches, Starting on Wed06/04/25 at 2249, For 24 hours New Bag06/05/2025 7:47 PM EDT1,000 mg400 mL/hrNew Bag06/05/2025 4:33 AM EDT1,000 mg400 mL/hrNew Bag06/04/2025 11:00 PM EDT1,000 mg400 mL/hr acetaminophen (OFIRMEV) [...] Once, On Wed06/15/25 at 0400, For1 dose Poaeecdoc52/24/2025 4:34 AM INI949 mL/hrNew 06/15/2025 4:22 AM EDT1,000 mg400 mL/hr acetaminophen (OFIRMEV) IVPB Premix 1,000 mg 1,000 mg, intravenous, at 400 mL/hr, Administer over 15 Minutes, Once, On 06/16/25 at 1215, For1 dose New 06/16/2025 1:54 PM EDT1,000 mg400 mL/hr amLODIPine (NORVASC) tablet 10 mg 10 mg, g-tube, Daily, First dose (after last modification) on 06/11/25 at 0900, Hold for systolic blood pressure less than 110 Look-alike/sound-alike medication - verify indication for use. Avoidgrapefruit juice. Given06/13/2025 8:26 AM EDT10 xdOsqwu7106/12/2025 10:43 AM EDT10 ewSksst4706/11/2025 8:37 AM EDT10 mg amLODIPine (NORVASC) tablet 10 mg 10 mg, oral, Daily, First dose (after last modification) on Joanie 06/14/25 at 0900, Hold for systolicblood pressure less than 110 Look-alike/sound-alike medication - verify indication for use. Avoid grapefruit juice. Given06/22/2025 8:32 AM EDT10 xmVnvqk7906/21/2025 8:26 AM EDT10 wvHfchl3806/20/2025 10:19 AM EDT10 mg amLODIPine (NORVASC) tablet 5 mg 5 mg, g-tube, Daily, First dose on 06/09/25 at 1015, Hold for systolic blood pressure less mvls574 Look-alike/sound-alike medication - verify indication for use. Avoid grapefruit juice. Given06/10/2025 8:16 AM EDT5 hyAnikl0206/09/2025 11:21 AM EDT5 mg amLODIPine (NORVASC) tablet [...] crush or chew. Given06/22/2025 8:32 AM EDT81 dkDfqzj9206/21/2025 8:26 AM EDT81 plDgssc8006/20/2025 10:19 AM EDT81 mg atorvastatin (LIPITOR) tablet 20 mg 20 mg, oral, Nightly, First dose on Joanie 06/14/25 at 2200, Look-alike/sound-alike medication - verify indication for use. Given06/21/2025 9:33 PM EDT20 uzDmclr3106/20/2025 9:26 PM EDT20 eiAqzck6706/19/2025 9:02 PM EDT20 mg barium sulfate (E-Z-HD) [...] % (w/v), 30% (w/w) oralpaste, Starting on Wed06/14/25 at 1424, For 1 dose Given06/14/2025 2:36 PM EDT30 mL barium sulfate (VARIBAR THIN HONEY) 40 %(w/v), 29% (w/w)(1500 CPS) suspension 20 mL 20 mL, oral, Once in imaging, contrast, Radiology, Starting on Wed06/12/25 at 1002, For 1 dose Given06/12/2025 10:13 AM EDT30 mL barium sulfate (VARIBAR THIN HONEY) 40 %(w/v), 29% (w/w)(1500 CPS) suspension 20 mL 20 mL, oral, Once in imaging, contrast, Radiology, Starting on Wed06/14/25 at 1431, For 1 dose Given06/14/2025 2:37 PM EDT30 mL barium sulfate (VARIBAR THIN) 81 % (w/w) powder 148 g 148 g, oral, Once in imaging, contrast, barium sulfate (VARIBAR THIN) 40 % (w/v) powder, Starting on Wed06/12/25 at 1002, For 1 [...] indication for use. Given06/09/2025 8:20 AM EDT12.5 skMkvnu8606/08/2025 8:22 PM EDT12.5 mgGiven 06/08/2025 1:21 PM EDT12.5 mg carvediloL (COREG) tablet 12.5 mg 12.5 mg, oral, Once, On 06/09/25 at 1000, For 1 dose, Additional dose [...] indication for use. Given06/22/2025 8:32 AM EDT12.5 vtVsllg8406/21/2025 9:33 PM EDT12.5 mgGiven 06/21/2025 8:26 AM EDT12.5 mg carvediloL (COREG) tablet 25 mg 25 mg, g-tube, 2 times daily, First dose (after last modification) on Wed06/09/25 at 2100, Hold for systolic blood pressure less than 110 or heart rate less than 60 Give with meal or snack. Look-alike/sound-alike medication - verify indication for use. Given06/13/2025 8:26 AM EDT25 ckIvvby7206/12/2025 9:08 PM EDT25 cpYajtw2206/12/2025 10:43 AM EDT25 mg carvediloL (COREG) tablet 25 mg 25 mg, oral, 2 times daily, First dose (after last modification) on Wed06/13/25 at 2100, Hold for systolic blood pressure less than 110 or heart rate less than 60 Give with meal or snack. Look-alike/sound-alike medication - verify indication for use. Given06/14/2025 10:46 PM EDT25 vkXrgcj6406/14/2025 10:30 AM EDT25 mgGiven 06/13/2025 9:55 PM [...] For 10 hours, solution= dextrose 2.5 % 06/10/2025 1:54 PM CTA916 mL/hr100 mL/hr dextrose 2.5 % in water, 1,000 mL infusion 50 mL/hr, intravenous, Continuous, Starting on Wed06/13/25 at 1400, solution= dextrose 2.5 % 06/13/2025 3:06 PM EDT50 mL/hr50 mL/hr dextrose 2.5 % in water, 1,000 mL infusion 50 mL/hr, intravenous, Continuous, Starting on Wed06/15/25 at 1030, solution= dextrose 2.5 % New 06/17/2025 2:00 PM EDT50 mL/hr50 mL/hrRate/Dose Bclttz4506/17/2025 12:28 PM EDT50 mL/hr50 mL/hrNew 06/17/2025 1:39 AM EDT75 mL/hr75 mL/hr dextrose 2.5 % in water, 1,000 mL infusion 100 mL/hr, intravenous, Continuous, Starting on Wed06/18/25 at 1115, For 6 hours, solution= dextrose 2.5 % New Bag06/18/2025 12:10 PM ZDF233 mL/hr100 mL/hrRate/Dose Ubyadf4606/18/2025 11:15 AM ZLR460 mL/hr100 mL/hr dextrose 2.5 % in water, [...] On Wed06/22/25 at 1230, For 1 dose 06/22/2025 1:10 PM EDT1,000 mL500 mL/hr dextrose 50 [...] = 20 mg/min Given06/11/2025 10:01 AM EDT40 vxDcmml2206/10/2025 9:56 PM EDT40 ofHzyab3606/10/2025 10:58 AM EDT40 mg furosemide (LASIX) injection [...] (RED), Indications: magnetic resonance imaging Indications:magnetic resonance tcexhyfKeqvh34/15/2025 11:40 PM EDT10 mmol glucagon HCL injection [...] for bleeding. Given06/22/2025 1:11 PM EDT5,000 UnitsLeft SqzWryou58/31/2025 6:36 AM EDT5,000 UnitsAbdominal KzcjhtLjlls54/30/2025 9:39 PM EDT5,000 UnitsAbdominal Tissue hydrALAZINE (APRESOLINE) [...] rate: 5 mg/minute. Given06/05/2025 2:30 PM EDT10 afVehbd0506/05/2025 2:20 PM EDT10 nhTjbyy3206/05/2025 10:45 AM EDT10 mg hydrALAZINE (APRESOLINE) tablet 100 mg 100 mg, oral, Every 8 hours scheduled, First dose (after last modification) on Joanie 06/14/25 at 2200, Hold for systolic blood pressure less than 110 Look-alike/sound-alike medication - verify indication for use. Given06/22/2025 1:11 PM RCP373 djKwpdt3806/21/2025 9:31 PM QTK195 mgGiven 06/21/2025 3:29 PM NYN749 mg hydrALAZINE (APRESOLINE) tablet 25 mg 25 mg, g-tube, Every 8 hours scheduled, First dose on Wed06/10/25 at 1000, Hold for systolic bloodpressure less than 110 Look-alike/sound-alike medication - verify indication for use. Given06/13/2025 5:34 AM EDT25 unXgabx6506/12/2025 9:55 PM EDT25 waYxenp7106/12/2025 2:43 PM EDT25 mg hydrALAZINE (APRESOLINE) tablet 25 mg 25 mg, oral, Every 8 hours scheduled, First dose (after last modification) on Wed06/13/25 at 1400,Hold for systolic blood pressure less than 110 Look-alike/sound-alike medication - verify indication for use. Given06/14/2025 1:12 PM EDT25 oiZbxlh8406/14/2025 5:04 AM EDT25 xqWuuco1806/13/2025 9:56 PM EDT25 mg hydrOXYzine (ATARAX) tablet 25 mg 25 mg, oral, Once, On 06/16/25 at 2215, For 1 dose, Look-alike/sound-alike medication - verify indication for use. Given06/16/2025 10:17 PM EDT25 mg insulin glargine (LANTUS, SEMGLEE) injection pen 10 Units 10 Units, subcutaneous, Daily, First dose on Wed06/11/25 at 1715, Look-alike/sound-alike medication - verify indication for use. Prime with 2 units of insulin prior to administration. Basal (long acting) insulin for subcutaneous administration only. Do not mix with any other insulin. Pre-filled pens stable 28 days at room temperature. Given06/12/2025 9:14 AM EDT10 UnitsAbdominal DlgdxiJnhcz53/20/2025 5:48 PM EDT10 UnitsAbdominal Tissue insulin glargine [...] room temperature. Given06/15/2025 10:50 AM EDT10 UnitsAbdominal WlzbelOzxth00/23/2025 10:16 AM EDT 10 UnitsAbdominal QybjyuLznty24/22/2025 2:44 PM EDT10 UnitsAbdominal Tissue insulin glargine (LANTUS, SEMGLEE) injection pen 10 Units 10 Units, subcutaneous, Daily, First dose (after last modification) on Wed06/16/25 at 1315, Look-alike/sound-alike medication - verify indication for use. Prime with 2 units of insulin prior to administration. Basal (long acting) insulin for subcutaneous administration only. Do not mix with any other insulin. Pre-filled pens stable 28 days at room temperature. Indications:Type 2 diabetes mellitus with other specified complication, unspecified whether detention insulin use ([facility])Given06/19/2025 8:47 AM EDT10 UnitsAbdominal IhbbefNasue43/27/2025 9:02 AM EDT10 UnitsAbdominal TissueGiven 06/17/2025 8:46 [...] mellitus with other specified complication, unspecified whether chain builder insulin use ([facility])Given06/22/2025 9:00 AM EDT12 UnitsAbdominal WxebwlHoqaw92/30/2025 8:28 AM EDT12 UnitsLeft HnoCybwq66/29/2025 10:22 AM EDT12 UnitsAbdominal Tissue insulin glargine (LANTUS, SEMGLEE) injection pen 2 Units 2 Units, subcutaneous, Once, On Tu06/19/25 at 1415, For 1 dose, Look-alike/sound-alike medication- verify indication for use. Prime with 2 units of insulin prior to administration. Basal (long acting) insulin for subcutaneous administration only. Do not mix with any other insulin. Pre-filled pens stable 28 days at room temperature. Indications:Type 2 diabetes mellitus with other specified complication, unspecified whether chain builder insulin use ([facility])Given06/19/2025 3:21 PM EDT2 UnitsAbdominal Tissue insulin lispro [...] a meal. Given06/22/2025 1:14 PM EDT7 UnitsAbdominal TlwwlbMloax11/31/2025 9:25 AM EDT10 UnitsAbdominal HavrgxAtrye94/30/2025 5:02 PM EDT6 UnitsLeft Arm insulin lispro [...] a meal. Given06/11/2025 12:27 PM EDT4 UnitsAbdominal MosbjwCydba78/20/2025 8:53 AM EDT4 UnitsAbdominal Tissue insulin lispro (HumaLOG) injection 1-5 Units 1-5 Units, subcutaneous, 4 times daily with meals and nightly, First dose on Wed06/13/25 at 1330, Please give 1 units per 15 grams of carbohydrates up to 5 units per 75 grams of carbohydrates [id number] minutes of finishing meals together with correction insulin when needed. Notify prescriber if blood glucose greater than 400 mg/dL. Look-alike/sound-alike medication - verify indication for use. Prime with 2 units of insulin prior to administration. Prandial/supplemental Insulin. Pre-filled pensstable 28 days at room temperature. Insulin lispro should be administered within 15 minutes before or immediately after a meal. Given06/15/2025 2:47 PM EDT2 UnitsAbdominal QxhpjrGsuao93/24/2025 10:50 AM EDT2 UnitsAbdominal XmgqnyWmpeo06/23/2025 1:10 PM EDT5 UnitsAbdominal Tissue insulin lispro [...] a meal. Given06/22/2025 1:14 PM EDT2 UnitsLeft MjoAykrm24/31/2025 9:25 AM EDT1 UnitsLeft ZyzDqnim59/30/2025 9:46 PM EDT1 UnitsAbdominal Tissue insulin lispro [...] a meal. Given06/12/2025 4:18 AM EDT2 UnitsAbdominal RlmbuoEiptp62/20/2025 11:30 PM EDT2 UnitsAbdominal UczlviBpptb85/20/2025 7:40 PM EDT6 UnitsAbdominal Tissue insulin lispro [...] a meal. Given06/13/2025 1:04 PM EDT4 UnitsAbdominal KnwhqhWjpwz57/22/2025 8:25 AM EDT2 UnitsAbdominal IbezdoAsdwv77/21/2025 5:14 PM EDT4 UnitsLeft Arm insulin lispro [...] a meal. Given06/12/2025 6:28 AM EDT4 UnitsAbdominal YdpidtGscoj98/21/2025 4:20 AM EDT4 UnitsAbdominal HgqkgpTfodh60/20/2025 11:31 PM EDT4 UnitsAbdominal Tissue kit prep [...] indication for use. Given06/10/2025 7:27 PM EDT10 adJtbxi9606/10/2025 5:17 PM EDT10 fgDwxpi2306/10/2025 4:33 AM EDT10 mg levETIRAcetam (KEPPRA) 750 mg in sodium chloride 0.9 % 107.5 mL IVPB 750 mg, intravenous, at 430 mL/hr, Administer over 15 Minutes, Every 12 hours, First dose on Wed06/04/25 at 2300, Look-alike/sound-alike medication. Verify indication for use. New Bag06/09/2025 3:32 AM WKE335 mg430 mL/hrNew Bag06/08/2025 2:00 PM XBG279 mg 430 mL/hrNew Bag06/08/2025 2:36 AM OGB858 mg430 mL/hr levETIRAcetam (KEPPRA) 750 mg in sodium chloride 0.9 % 107.5 mL IVPB 750 mg, intravenous, at 430 mL/hr, Administer over 15 Minutes, Every 12 hours, First dose (after last modification) on Wed06/09/25 at 1400, For 7 doses, Look-alike/sound-alike medication. Verify indication for use. New Bag06/12/2025 2:29 PM BSB385 mg430 mL/hrNew Bag06/12/2025 4:15 AM FKH836 mg 430 mL/hrNew Bag06/11/2025 2:41 PM WUB568 mg430 mL/hr lidocaine (URO-JET) 2 % jelly 1 Application 1 Application, urethral, Once, On Wed06/22/25 at 1330, For 1 dose Given06/22/2025 1:30 PM EDT1 Application lisinopriL (PRINIVIL,ZESTRIL) tablet 40 mg 40 mg, nasogastric, Daily, First dose on Wed06/06/25 at 1030, Hold for systolic blood pressure less than 110 Look-alike/sound-alike medication - verify indication for use. Given06/13/2025 8:26 AM EDT40 pcGumep9906/12/2025 10:43 AM EDT40 xrRchbe8006/11/2025 8:38 AM EDT40 mg lisinopriL (PRINIVIL,ZESTRIL) tablet 40 mg 40 mg, oral, Daily, First dose (after last modification) on Joanie 06/14/25 at 0900, Hold for systolicblood pressure less than 110 Look-alike/sound-alike medication - verify indication for use. Given06/14/2025 10:30 AM EDT40 mg magnesium oxide (MAGOX) tablet 400 mg 400 mg, g-tube, Daily, First dose on 06/09/25 at 1015 Given06/13/2025 8:26 AM WEP936 teSjkhl3506/12/2025 10:43 AM OEY012 mgGiven 06/11/2025 8:37 AM UKY926 mg magnesium oxide (MAGOX) tablet 400 mg 400 mg, oral, Daily, First dose (after last modification) on [facility] 06/14/25 at 0900 Given06/14/2025 10:30 AM NXG791 mg magnesium sulfate IVPB 2000 mg/50 mL [...] 5 mg, oral, Nightly, First dose on [facility] 06/14/25 at 2200 Given06/21/2025 9:32 PM EDT5 rqSyvcd5906/20/2025 9:26 PM EDT5 rsJaxku9806/19/2025 10:00 PM EDT5 mg niCARdipine (CARDENE-IV) infusion [...] Frequency -As Frequent As: 3 minutes Rate/Dose Yzopod0006/09/2025 11:45 AM EDT5 mg/hr25 mL/hrRate/Dose Tlnyyx2606/09/2025 11:32 AM EDT7.5 mg/hr37.5 mL/hrRate/Dose Lajska0906/09/2025 11:22 AM EDT10 mg/hr50 mL/hr OLANZapine (ZyPREXA) [...] 20 mEq, g-tube, Daily, First dose on 06/09/25 at 1015, Hold for potassium more than 4.5 Must dilute before use - Mix in 3-8 ounces of water or juice before administration When administering in feeding tube, flush before and after per policy and monitor potassium levels Given06/11/2025 8:37 AM EDT20 oNiVoyig14/19/2025 8:16 AM EDT20 mEqGiven 06/09/2025 11:21 AM EDT20 mEq potassium chloride (KAYCIEL) 20 mEq/15 mL solution 20-50 mEq 20-50 mEq, oral, As needed, potassium replacement, Starting on 06/04/25 at 1915, Progress to oral potassium replacement [...] monitor potassium levels Given06/08/2025 9:35 AM EDT30 rBrAwhik15/16/2025 5:47 AM EDT20 mEq potassium chloride (KAYCIEL) [...] 1 hour. New Bag06/06/2025 12:15 AM EDT10 cLm961 mL/hrNew Bag06/05/2025 8:34 PM EDT10 mEq 100 mL/hrRate/Dose Nhpxyv4506/05/2025 10:49 AM VGH833 mL/hr potassium chloride IVPB 10 mEq/100 mL in water (0.1 mEq/mL premix) 10 mEq, intravenous, at 100 mL/hr, Administer over 60 Minutes, As needed, POTASSIUM REPLACEMENT, Starting on Wed06/09/25 at 0959, IV if unable to use [...] 1.2 = 40 mEq VESICANT (YELLOW) New Bag06/05/2025 5:29 PM EDT10 mEq50 mL/hr QUEtiapine (SEROquel) tablet 12.5 mg 12.5 mg, oral, Nightly, First dose on Wed06/15/25 at 2200, Look-alike/sound-alike medication - verify indication for use. Given06/15/2025 9:02 PM EDT12.5 mg QUEtiapine (SEROquel) tablet 25 mg 25 mg, oral, Nightly, First dose (after last modification) on Wed06/16/25 at 2200, Look-alike/sound-alike medication - verify indication for use. Given06/21/2025 9:31 PM EDT25 svAxwps3106/20/2025 9:26 PM EDT25 bnXelbl2306/19/2025 9:02 PM EDT25 mg sod phos di, [...] Wed06/12/25 at 1415, For 1 day New Bag06/13/2025 8:50 AM EDT75 mL/hr75 mL/hrRate/Dose Udyoma5206/13/2025 3:53 AM EDT75 mL/jmZzthwaeki10/22/2025 3:27 AM EDT75 mL/hr sodium chloride 0.45 % infusion 50 mL/hr, intravenous, Continuous, Starting on Wed06/14/25 at 1345, For 1 day Rplaevteq85/23/2025 10:31 PM EDT50 mL/hrRate/Dose Mdiocr8406/14/2025 3:15 PM EDT50 mL/hrNew Bag06/14/2025 3:14 PM [...] intravenous, Continuous, Starting on Wed06/12/25 at 1100 06/12/2025 11:01 AM EDT75 mL/hr75 mL/hr sodium chloride 0.9 % infusion 50 mL/hr, intravenous, Continuous, Starting on Wed06/13/25 at 1615, For 12 hours 06/13/2025 5:21 PM EDT50 mL/hr50 mL/hr sodium chloride 0.9 % infusion 50 mL/hr, intravenous, Continuous, Starting on Wed06/14/25 at 1100, For 12 hours 06/14/2025 11:05 AM EDT50 mL/hr50 mL/hr sodium [...] For 1 dose, Indications: diagnostic imaging Indications:diagnostic dukatskDudta67/24/2025 11:23 AM EDT4.4 millicuries thiamine (B-1) 500 mg in sodium chloride 0.9 % 50 mL IVPB 500 mg, intravenous, at 110 mL/hr, Administer over 30 Minutes, 3 times daily, First dose on Wed06/08/25 at 1400, For 5 days, Look-alike/sound-alike medication. Verify indication for use. New 06/13/2025 5:35 AM BJI196 mg110 mL/hrNew Bag06/12/2025 10:00 PM PEG966 mg 110 mL/hrNew Bag06/12/2025 2:50 PM DRH045 mg110 mL/hrdocumented in this encounter Active and [...] * 0826 (Given - Provider: Peter Rubio, GEOFF) * 0832 (Given - Provider: Peter Rubio, RN) atorvastatin (LIPITOR) tablet 20 mg 20 mg, oral, Nightly, First dose on Joanie 06/14/25 at 2200, Look-alike/sound-alike medication - verify indication for use. * 2125 (Given - Provider: Fátima Alvarez RN) * 2132 (Given - Provider: Cooper Zavala, RN) carvediloL (COREG) tablet 12.5 mg 12.5 mg, oral, 2 times daily, First dose (after last modification) on Wed06/15/25 at 2100, Hold for systolic blood pressure less than 110 or heart rate less than 60 Give with meal or snack. Look-alike/sound-alike medication - verify indication for use. * 1019 (Given - Provider: Laura Jeff RN) * 2126 (Given - Provider: Fátima Alvarez, GEOFF) * 0826 (Given - Provider: Peter Rubio, GEOFF) * 2132 (Given - Provider: Cooper Zavala, RN) * [...] * 1528 (New Bag - Provider: Peter Rubio, RN) * 1558 (Stop Bag - Provider: Peter Rubio, RN) * 1647 (New Bag - Provider: Peter Rubio, RN) * 1717 (Stop Bag - Provider: Peter Rubio, RN) dextrose 5 % bolus (COMPLETED) 1,000 mL, intravenous, at 500 mL/hr, Administer over 2 Hours, Once, On Wed06/22/25 at 1230, For 1 dose * 1310 (New Bag - Provider: Peter Rubio, RN) * 1510 (Stop Bag - Provider: Peter Rubio, RN) heparin (porcine) injection 5,000 Units 5,000 Units, subcutaneous, Every 8 hours scheduled, First dose (after last modification) on Wed06/08/25 at 1600, Look-alike/sound-alike medication - verify indication for use. Observe for bleeding. * 0531 (Given - Provider: Fátima Alvarez RN) * 1332 (Given - Provider: Laura Jeff RN) * 2126 (Given - Provider: Fátima Alvarez, RN) * 0511 (Given - Provider: Fátima Alvarez, RN) * 1529 (Given - Provider: Peter Rubio, RN) * 2139 (Given - Provider: Cooper Zavala, RN) * 0636 (Given - Provider: Cooper Zavala, RN) * 1311 (Given - Provider: Peter Rubio, RN) hydrALAZINE (APRESOLINE) tablet 100 mg 100 mg, oral, Every 8 hours scheduled, First dose (after last modification) on Wed06/14/25 at 2200, Hold for systolic blood pressure less than 110 Look-alike/sound-alike medication - verify indication for use. * 0532 (Given - Provider: Fátima Alvarez RN) * 1332 (Given - Provider: Laura Jeff RN) * 2126 (Given - Provider: Fátima Alvarez RN) * 0511 (Given - Provider: Fátima Alvarez RN) * 1529 (Given - Provider: Peter Rubio, GEOFF) * 2131 (Given - Provider: Cooper Zavala, RN) * 0636 (Not Given - Provider: Cooper Zavala RN - Reason: Order parameters not met) * 1311 (Given - Provider: Peter Rubio, RN) insulin glargine (LANTUS, SEMGLEE) injection pen [...] RN) * 0828 (Given - Provider: Peter Rubio, GEOFF) * 0900 (Given - Provider: Peter Rubio, GEOFF) insulin lispro (HumaLOG) injection 1-10 Units 1-10 [...] met) * 2200 (Not Given - Provider: áFtima Alvarez RN - Reason: Order parameters not met) * 0800 (Not Given - Provider: Peter Rubio RN - Reason: Contraindicated) * 1200 (Not Given - Provider: Peter Rubio RN - Reason: Contraindicated - Comment: 148) * 1703 (Given - Provider: Peter Rubio RN - Comment: 240) * 214 (Given - Provider: Cooper Zavala RN) * [...] First dose on Joanie 06/14/25 at 2200 * 2125 (Given - Provider: Fátima Alvarez RN) * 2131 (Given - Provider: Cooper Zavala RN) OLANZapine (ZyPREXA) injection 5 mg 5 [...] (Given - Provider: Cooper Zavala, RN) Medication Order/ dextrose 2.5 % in water, 1,000 mL infusion (CANCELED) 75 mL/hr, intravenous, Continuous, Starting on Joanie 06/21/25 at 1400, Hold for sodium less than 140 solution= dextrose 2.5 % * 1700 (New Bag - Provider: Peter Rubio RN) * 0251 (New Bag - Provider: Cooper Zavala RN) * 1225 (Stop Bag - Provider: Peter Rubio, RN - Comment: [Order ends at this time. Document the following action when infusion is complete: Stop Bag]) sodium chloride 0.45 % infusion (CANCELED) 50 mL/hr, intravenous, Continuous, Starting on Wed06/18/25 at 1800 * 0551 (New Bag - Provider: Fátima Alvarez, RN) * 0510 (New Bag - Provider: Fátima Alvarez, GEOFF) * 1348 (Stop Bag - Provider: Peter Rubio, RN - Comment: [Order ends at this time. Document the following action when infusion is complete: Stop Bag]) Medication Order barium sulfate (E-Z-HD) 98 % suspension 340 [...] calcium 3.5 to 3.9 mg/dL, Starting on Wed06/09/25 at 1000, IV [...] Additional Health Concerns InfectionOnset DateLast IndicatedResolved TimeRespiratory Rule-Out1006/07/2025 12:25 PM EDTdocumented as of this encounter Care Teams Team MemberRelationshipSpecialtyStart DateEnd Date Clarisa Hansen APRN-ANRDEA [address] [place] [address] PCP - GeneralFamily Medicine05/15/25documented as of this encounter
--- NOTE | 2025-06-23 23:05 | ED.GENADUL1 ---
HPI HPI - General Adult General Chief complaint: Urogenital-Male Stated complaint: Other Time Seen by Provider: 06/23/25 22:59 History of Present Illness HPI narrative: 70-year-old male presented to the emergency department for clogged Mayo catheter. He comes in from [facility] by paramedics and is unable to provide any history. 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 It is not clear when this started but when he came in there is been very little urine in the tubing or the bag. No further history is obtainable. Related Data Allergies Allergy/AdvReac Type Severity Reaction Status Date / Time No Known Drug Allergies Allergy Verified 06/23/25 23:16 Review of Systems ROS Narrative Not obtainable Exam Narrative Exam Narrative: Nurses note and vital signs reviewed General:The patient appears well and in no apparent distress.Patient is resting comfortably on cart. Skin:Warm, dry, no pallor noted.There is no rash noted. Head:Normocephalic, atraumatic Eye: no drainage Ears, Nose, Mouth, and Throat: oral mucosa is moist. Nares patent. Cardiovascular:Regular Rate and Rhythm Respiratory:Patient is in no distress, no accessory muscle use, lungs are clear to auscultation, no wheezing, rales or rhonchi Back:non-tender GI: Soft and nontender : Mayo catheter in place with no urine in the bag or in the tubing Musculoskeletal: The patient has no evidence of calf tenderness, no pitting edema, symmetrical pulses noted bilaterally Neurological: Awake and alert. Speech is very difficult to understand. Psychiatric: Not uncooperative Constitutional Vital Signs, click to edit/add: Last Vital Signs Temp 98.0 F 06/23/25 23:06 Pulse 116 H 06/23/25 23:06 Resp 20 06/23/25 23:06 BP 116/68 06/23/25 23:06 Pulse Ox 95 06/23/25 23:06 O2 Del Method Room Air 06/23/25 23:06 Course Vital Signs Vital signs: Vital Signs Temperature 98.0 F 06/23/25 23:06 Pulse Rate 116 H 06/23/25 23:06 Respiratory Rate 20 06/23/25 23:06 Blood Pressure 116/68 06/23/25 23:06 Pulse Oximetry 95 06/23/25 23:06 Oxygen Delivery Method Room Air 06/23/25 23:06 Temperature 98.0 F 06/23/25 23:06 Pulse Rate 116 H 06/23/25 23:06 Respiratory Rate 20 06/23/25 23:06 Blood Pressure 116/68 06/23/25 23:06 Pulse Oximetry 95 06/23/25 23:06 Oxygen Delivery Method Room Air 06/23/25 23:06 Medical Decision Making MDM Narrative Medical decision making narrative: The Mayo catheter was irrigated by nursing staff and this was successful in breaking the obstruction. Some blood clots were obtained through the catheter with irrigation and then the urine cleared and there is no more blood or clots present. No residual urine was present on bladder scan after this was performed by nursing staff. Differential Diagnosis Differential Diagnosis: Mayo catheter obstruction Discharge Plan Discharge Chief Complaint: Urogenital-Male Clinical Impression: Mayo catheter problem Patient Disposition: Home, Self-Care Time of Disposition Decision: 00:25 Condition: Good Mode of Transportation: EMS Print Language: Malawian Instructions: Mayo Catheter Placement and Care (ED) Referrals: JAMES CURRIE DO [Primary Care Provider, Family Practice] - 1 week
[2025-06-23 23:06] VITALS: BP 116/68; PULSE 116; TEMP 36.7; O2SAT 95; BMI 28.7
--- NOTE | 2025-06-23 23:14 | PC.NURSE ---
Mayo catheter in place, draining small amount of bloody urine.
--- OUTSIDE RECORDS SUMMARY | 2025-06-23 23:16 | XMS_ITS | Encounter Summary ---
Author Organization [facility] Address [id number] [address] [place] [address] Care Team Providers Care Review Analyst Name Role Phone Clarisa Nunez DIE CUT OPERATOR-TOOL SALVAGE WORKER Primary Care Provider Encounter Details DateTypeDepartmentCare Team (Latest Contact Info)Bqqukzyyent14/29/2025Telephone [facility] [address] [place], [place] [phone] Liborio Mann Jr., MD [address] [place] [phone] Social History Tobacco UseTypesPacks/DayYears UsedDateSmoking Tobacco: Every QshUsnuvuxcsz761.8 Started: 1970Smokeless Tobacco: NeverAlcohol UseStandard Drinks/WeekCommentsYes0 (1 standard drink = 0.6 oz pure alcohol)[facility] UtilitiesAnswerDate RecordedIn the past 12 months has the [employer] in [place], gas, oil, or water [employer] threatened to shut off services in your home?No06/05/2025UDIT-CAnswerDate RecordedQ1: How often do you have a drink containing alcohol?Patient unable to mpeudm0106/05/2025Q2: How many drinks containing alcohol do you have on a typical day when you are drinking?Patient unable to wetcik5806/05/2025Q3: How often do you have six or more drinks on one occasion?Patient unable to txflho8206/05/2025PRAPARE - TransportationAnswerDate RecordedIn the past 12 months, has lack of transportation kept you from medical appointments or from getting medications?No 06/05/2025In the past 12 months, has lack of transportation kept you from meetings, work, or from getting things needed for daily living?No06/05/2025 Housing InstabilityAnswerDate RecordedAre you worried or concerned that in the next two months you may not have stable housing that you own, rent or stay in as a part of a household?No06/05/2025hildcareAnswerDate RecordedChildcareUnknown 02/01/2019EmploymentAnswerDate TgjfdeofQlzhrycmtcPcckwdb62/12/2019Hunger ScreeningAnswerDate RecordedWithin the past 12 months we worried whether our food would run out before we got money to buy more.Never True06/11/2025Within the past 12 months the food we bought just didn't last and we didn't have money to get more.Never True06/11/2025Sex and Gender InformationValueDate RecordedSex Assigned at BirthNot on fileLegal OvjRbzx0203/28/2015 11:52 AM EDTGender Identity Not on fileSexual OrientationNot on filedocumented as of this encounter Miscellaneous Notes * Telephone Encounter - Liborio Mann Jr., MD - 06/20/2025 3:39 PM EDT Kaye, Established patient of Dr. Bess. Hydronephrosis and thick-walled bladder. Patient still at the hospital. Get him appointment to see Dr. Bess 1-2 weeks off day with hospital discharge summary and urology progress note 06/20/2025. Amanda documented in this encounter Plan of Treatment DateTypeDepartmentCare Team (Latest Contact Info)Vvlxcutdvsl81/06/2025 9:00 AM ESTOffice Visit [facility] [address] [place] [address] Marion Martines, DIE CUT OPERATOR-TOOL SALVAGE WORKER [address] [place] [address] 07/18/2025 3:30 PM ESTOffice Visit [facility] [address] [place] [phone] Yani Moses MD [address] [place] [address] [address] [place] [address] documented as of this encounter Goals GoalPatient Goal TypeAssociated ProblemsRecent ProgressPatient-Stated?Author <enter goal here> Jodi Rivera, YUMIKO Note: Evaluation of progress towards goal: SNF documented as of this encounter Visit Diagnoses Not on filedocumented in this encounter Care Teams Team MemberRelationshipSpecialtyStart DateEnd Date Clarisa Nunez, MEGAN-TOOL SALVAGE WORKER [address] [place] [address] PCP - GeneralFamily Medicine05/15/25documented as of this encounter
--- OUTSIDE RECORDS SUMMARY | 2025-06-23 23:16 | XMS_ITS | Clinical Summary ---
Author Organization [employer] tem Address [id number] [address] [place] [address] Care Team Providers Care Cartoon Designer Name Role Phone Clarisa Nunez MEGAN-CALIBRATION LABORATORY TECHNICIAN Primary Care Provider Allergies No known active allergies Medications MedicationSigDispense QuantityRefillsLast FilledStart DateEnd DateStatus aspirin 81 mg Take 1 tablet (81 mg total) by mouth in the morning.Active atorvastatin (LIPITOR) 20 mg tablet Take 1 tablet (20 mg total) by mouth every morning. TAKE 1 TABLET (20 MG) BY MOUTH IN THE WLCNERA51/23/2025Active ACCU-CHEK GUIDE TEST STRIPS strip USE DAILY5Active ACCU-CHEK GUIDE ME GLUCOSE MTR misc USE DAILY OR DIRECTED FOR MONITORING OF DIABETES.5Active ACCU-CHEK SOFTCLIX LANCETS lancets USE TO TEST DAILY5Active magnesium aspart,citrate,oxide (TRIPLE MAGNESIUM COMPLEX) 400 mg magnesium capsule Take 400 mg by mouth in the morning.Active amLODIPine (NORVASC) 10 mg tablet Take 1 tablet (10 mg total) by mouth in the morning. 90 tablet 5Active carvediloL (COREG) 12.5 mg tablet Take 1 tablet (12.5 mg total) by mouth in the morning and 1 tablet (12.5 mg total) before bedtime. 60 tablet 5Active hydrALAZINE (APRESOLINE) 100 mg tablet Take 0.5 tablets (50 mg total) by mouth every 8 (eight) hours. 45 tablet 5Active QUEtiapine (SEROquel) 25 mg tablet Take 1 tablet (25 mg total) by mouth nightly. 30 tablet 5Active insulin glargine (LANTUS, SEMGLEE) 100 unit/mL (3 mL) insulin pen Indications:Type 2 diabetes mellitus with other specified complication, unspecified whether correction insulin use ([facility])Inject 12 Units under the skin in the morning. 15 mL 5Active insulin lispro (HumaLOG) 100 unit/mL insulin pen Give 6 units with meals and follow sliding scale 15 mL 1215Active insulin lispro (HumaLOG) 100 unit/mL insulin pen Inject 1-5 Units under the skin 4 (four) times a day with meals and nightly. 15 mL 5Active ELIQUIS 5 mg tablet Take 1 tablet (5 mg total) by mouth in the morning and 1 tablet (5 mg total) before bedtime.06/22/2025Discontinued(Stop Taking at Discharge) fenofibrate (LOFIBRA) 160 mg tablet Take 1 tablet (160 mg total) by mouth in the morning. Discontinued(Stop Taking at Discharge) lisinopriL (PRINIVIL,ZESTRIL) 40 mg tablet Take 1 tablet (40 mg total) by mouth in the morning. Discontinued(Stop Taking at Discharge) metFORMIN (GLUCOPHAGE) 1000 mg tablet Take 1 tablet (1,000 mg total) by mouth in the morning and 1 tablet (1,000 mg total) in the evening. Take with meals.Discontinued(Stop Taking at Discharge) Active Problems ProblemNoted DateDiagnosed DateICH (intracerebral hemorrhage)06/04/2025 Encounters DateTypeDepartmentCare WnopSoiyquiruli44/29/2025Telephone [facility] [address] [place] [phone] Liborio Mann Jr., MD 06/04/2025 5:25 PM EDT - 06/22/2025 5:58 PM EDTHospital Encounter [facility] [address] Acute [address] [place] [address] Carter Smith DO Afreen, Ehad, MD Traumatic intracerebral hemorrhage with unknown loss of consciousness status, unspecified laterality, subsequent encounter (Primary Dx); Type 2 diabetes mellitus with other specified complication, unspecified whether correction insulin use ([facility]); Nontraumatic intracerebral hemorrhage, unspecified cerebral location, unspecified laterality ([facility]) Discharge Disposition: Penitentiary Facility-Medicare Cert06/04/2025 1:06 PM EDT - 06/04/2025 4:44 [facility] [address] [place] [address] James Vaughn MD Acute cerebral hemorrhage ([facility]) (Primary Dx) Discharge Disposition: Institution Not Defined Ihajygtdf53/13/2025Travelfrom Last 3 Months Immunizations ImmunizationAdministration DatesNext EebHbbl62/28/2016 Family History Medical HistoryRelationNameCommentsHeart attackFatherPancreatic cancerFather LeukemiaMotherLymphomaMotherRelationNameStatusCommentsFatherMother Social History Tobacco UseTypesPacks/DayYears UsedDateSmoking Tobacco: Every DpfRkqgkolzhu038.8 Started: 1972Smokeless Tobacco: Never Tobacco Cessation:Ready to Q uit: No; Counseling Given: Yes Alcohol UseStandard Drinks/WeekCommentsYes0 (1 standard drink = 0.6 oz pure alcohol)[facility] UtilitiesAnswerDate RecordedIn the past 12 months has the [employer], [employer], or water Dmailer threatened to shut off services in your home?No 06/05/2025UDIT-CAnswerDate RecordedQ1: How often do you have a drink containing alcohol?Patient unable to ptubco9906/05/2025Q2: How many drinks containing alcohol do you have on a typical day when you are drinking?Patient unable to answer 06/05/2025Q3: How often do you have six or more drinks on one occasion?Patient unable to ahwasi3706/05/2025PRAPARE - TransportationAnswerDate RecordedIn the past 12 months, [...] stay in as a part of a household?No06/05/2025hildcareAnswer Date LaqwgatjIvksannukMdyjrbc46/12/2019EmploymentAnswerDate RecordedEmployment Qyotztr4602/01/2019Hunger ScreeningAnswerDate RecordedWithin the past 12 months we worried whether our food would run out before we got money to buy more.Never True06/11/2025Within the past 12 months the food we bought just didn't last and we didn't have money to get more.Never True06/11/2025Sex and Gender Information ValueDate RecordedSex Assigned at BirthNot on fileLegal ZgyJsxq3703/28/2015 11:52 AM EDTGender IdentityNot on fileSexual OrientationNot on file Last Filed Vital Signs Vital SignReadingTime TakenCommentsBlood Bpksltsc833/6506/22/2025 11:12 AM EDT Kutbw852506/22/2025 11:12 AM WYEUaffwgfpeqr63.8 ??C (98.3 ??F)06/22/2025 11:12 AM EDTRespiratory Ddjg624006/22/2025 11:12 AM EDTOxygen Pyjlmfjwai28%06/22/2025 11:12 AM EDTInhaled Oxygen Concentration--Zrqiou50.6 kg (215 lb 2.7 oz)06/22/2025 5:00 AM VPBKopovu576.9 cm (6')06/12/2025 4:00 AM EDTBody Mass Index29.181 4:00 AM EDT Plan of Treatment DateTypeDepartmentCare Team (Latest Contact Info)Eikivlfipmy63/06/2025 9:00 AM ESTOffice Visit [facility] [place] [address] [place] [address] Marion Martines, CAMP MANAGER-CALIBRATION LABORATORY TECHNICIAN [address] [place] [address] 07/18/2025 3:30 PM ESTOffice Visit [facility] [address] [place] [phone] Yani Moses MD [address] [place] [address] [address] [place] [address] Health MaintenanceDue DateLast DoneCommentsDiabetic Ophthalmology Exam1957 Depression Cxtwbbnjd85/16/1969Adult BMI Follow Up Plan1975Diabetic Foot Exam1975Zoster (Shingles) Vaccine (1 of 2)2007RSV ( or age 60+ yrs) (1 - Risk 60-74 years 1-dose series)2017Abdominal Aortic Aneurysm (AAA) Jjdjru0504/07/2022Fall Risk Pfvtmuphh57/16/2022OVID-19 Vaccine ( season), 12/30/2020, 12/02/2020Influenza Bgbiruj7704/23/2025 Statin Use: Jhgvabli37Tobacco Qionppgnc65 Adult BMI Wterdoosv63DTaP,Tdap and Td Vaccines (2 - Td or Tdap)Tobacco Iygrnzidct98 Goals GoalPatient Goal TypeAssociated ProblemsRecent ProgressPatient-Stated?Author <enter goal here> Jodi Rivera LSW Note: Evaluation of progress towards goal: SNF Medical Devices Not on file Procedures Procedure NamePriorityDate/TimeAssociated DiagnosisCommentsBEDSIDE GLUCOSE Uuojhsw4306/22/2025 4:05 PM EDT BEDSIDE IXDLXVDPdfambk85/31/2025 11:32 AM EDT BEDSIDE YBYOLBMTqdntdw32/31/2025 8:29 AM EDT IONIZED VHWNNGGLvauwpo75/31/2025 8:00 AM EDT QILFGVKAIFAplveqx06/31/2025 8:00 AM EDT ECLNERDDQKhezdqa66/31/2025 8:00 AM EDT CBC WITH AUTO ZLMMZKSGJVPPUddyeid72/31/2025 8:00 AM EDT COMPREHENSIVE METABOLIC LOIVQEqiybpk13/31/2025 8:00 AM EDT BEDSIDE DZPFGDBJkogtny06/30/2025 9:22 PM EDT BEDSIDE REDRHVPPrxxsjr77/30/2025 4:[address] BRAIN WO SRVEONLZ55/30/2025 2:07 PM EDT VASC VENOUS DUPLEX LOWER QVOZZKFULLiabunz11/30/2025 1:26 PM EDT BEDSIDE JLNOJPYFfyvwnb38/30/2025 11:54 AM EDT BEDSIDE PKNZPPILkjeljg45/30/2025 7:44 AM EDT IONIZED UMWIALBTcdcico88/30/2025 6:10 AM EDT QRAFQFITJHLdrslsm80/30/2025 6:10 AM EDT DFJBHMAVKKnqitzk18/30/2025 6:10 AM EDT CBC WITH AUTO QMVMYUTEVWDPVoclbvt76/30/2025 6:10 AM EDT COMPREHENSIVE METABOLIC DELZBWkbtgoq96/30/2025 6:10 AM EDT BEDSIDE YPKCHHQSpwdrwd32/29/2025 9:24 PM EDT BEDSIDE ETIICGEHdimmzy40/29/2025 3:37 PM EDT BEDSIDE SZBTVSHKngjbxx26/29/2025 11:52 AM EDT BEDSIDE TXHDSIUYnjlwvt78/29/2025 7:21 AM EDT IONIZED GFPVFYUIziuzce01/29/2025 6:11 AM EDT CNJNUICPQQDtiaidf96/29/2025 6:11 AM EDT FLPULCDNYZdbzblo41/29/2025 6:11 AM EDT CBC WITH AUTO QANVGMCKDGOQXnvzkos58/29/2025 6:11 AM EDT COMPREHENSIVE METABOLIC ZJIDYIphztqp85/29/2025 6:11 AM EDT BEDSIDE WDONSSOCqdhtfe38/28/2025 9:05 PM EDT BEDSIDE JFBMNAZIdbnxoo40/28/2025 12:09 PM EDT BEDSIDE RCUQJQGJkfsmkz81/28/2025 7:19 AM EDT IONIZED GIQLURPQnrsnvu06/28/2025 6:01 AM EDT OIFSGFGQMFCpnizrv55/28/2025 6:01 AM EDT NCDREVWFELxrxghc61/28/2025 6:01 AM EDT CBC WITH AUTO PTANGWHFZIWSZeosjjz83/28/2025 6:01 AM EDT COMPREHENSIVE METABOLIC XSYBUSsvijlz69/28/2025 6:01 AM EDT BEDSIDE TLSTBQZZiauvjj86/27/2025 9:48 PM EDT BEDSIDE ARZXTNUGjhrqww36/27/2025 4:25 PM EDT BEDSIDE DILEMUQIzhxedg19/27/2025 11:29 AM EDT BEDSIDE IZOWYIHSzriaxe78/27/2025 7:50 AM EDT IONIZED CEYVQEDXgjocdl05/27/2025 5:55 AM EDT EVIKPKHPYPHnzcmtw00/27/2025 5:55 AM EDT QMEDUPWCNHzojayx26/27/2025 5:55 AM EDT CBC WITH AUTO HMPPROFKTDLBHvzoriy34/27/2025 5:55 AM EDT COMPREHENSIVE METABOLIC HWIZOTghmsce46/27/2025 5:55 AM EDT BEDSIDE AUJDEMBBslurzy30/26/2025 9:11 PM EDT BEDSIDE VGLDQSISbolbgf86/26/2025 4:05 PM EDT XR CHEST 1 XRUltecoo91/26/2025 2:34 PM EDT QHBRQRWPHKEvqkbsc52/26/2025 2:14 PM EDT URINE ZAWULMJPwcvacd73/26/2025 1:48 PM EDT BLOOD BOYHVQDRBSM86/26/2025 1:20 PM EDT BLOOD FYAVUKYKUGJ70/26/2025 1:20 PM EDT BEDSIDE LQRUHDJLiarqkn72/26/2025 11:24 AM EDT BEDSIDE WVJBAACYyleksh36/26/2025 7:44 AM EDT IONIZED SEALOWRUvxxyep08/26/2025 6:08 AM EDT OUMTGAHVKYRynpusi37/26/2025 6:08 AM EDT GCHSWSPTGQudlsij96/26/2025 6:08 AM EDT CBC WITH AUTO WBYTDNDCVKYAWntyixy15/26/2025 6:08 AM EDT COMPREHENSIVE METABOLIC BXMUKOuocfjp21/26/2025 6:08 AM EDT BEDSIDE WQQPSXKKzkxnvc42/25/2025 9:06 PM EDT BEDSIDE MQDWAUNGewmxcl27/25/2025 3:58 PM EDT BEDSIDE YIIWOBRFuvwele15/25/2025 12:36 PM EDT BEDSIDE GLRQDTQKhpgtdp44/25/2025 7:55 AM EDT IONIZED HPRGTMOHgqfdqb58/25/2025 5:48 AM EDT XLEGDZYGCOFlluvah65/25/2025 5:48 AM EDT AXVCXZZKZLbgmvvj11/25/2025 5:48 AM EDT CBC WITH AUTO WNTJJZCZNEEQQfdrzfo25/25/2025 5:48 AM EDT COMPREHENSIVE METABOLIC VPMJMXgurand24/25/2025 5:48 AM EDT BEDSIDE BFHONQHHsemdod20/24/2025 8:58 PM EDT LNMXWYLtxlfxi13/24/2025 5:52 PM EDT NSSBCCOHAMOWE72/24/2025 5:52 PM EDT BEDSIDE DVPIQBDMnlzito21/24/2025 4:04 PM EDT VASC VENOUS DUPLEX LOWER GMAODIOVKRxewcki22/ 3:37 PM EDT BEDSIDE DECKIKWKajssah77/24/2025 12:48 PM EDT NM RENOGRAM WITH OFBTYVvpknkd03/24/2025 12:38 PM EDT BEDSIDE PHHGYQHCmpoidj30/24/2025 7:59 AM EDT IONIZED TAIGZMOCboaxyp29/24/2025 6:59 AM EDT XJELOKKSQWXlattaa19/24/2025 6:59 AM EDT EIFGLFYVBKxhyfvl22/24/2025 6:59 AM EDT CBC WITH AUTO ARBDZSUFGCUVBylgxrp14/24/2025 6:59 AM EDT COMPREHENSIVE METABOLIC NAYUYJqncnqv47/24/2025 6:59 AM EDT BEDSIDE CSYIQGFJfggbwc88/23/2025 9:02 PM EDT BEDSIDE YAOVPYSSfwkcvn42/23/2025 4:32 PM EDT FL SWALLOW MOTILITY RBLOKNRFNemeeiw09/23/2025 2:24 PM EDT BEDSIDE IVFTXHREjgrflb52/23/2025 11:45 AM EDT BEDSIDE TRVHDIJTgpcdoz70/23/2025 9:02 AM EDT IONIZED DBJLVHARankyaz72/23/2025 6:25 AM EDT GKOJUQZJPKGyluvor62/23/2025 6:25 AM EDT BUHYZORLMMsyskok04/23/2025 6:25 AM EDT CBC WITH AUTO TLIRYEQKWOLUFxtcbry62/23/2025 6:25 AM EDT COMPREHENSIVE METABOLIC AQUSHFvdprwe97/23/2025 6:25 AM EDT BEDSIDE INSMORGGsavypz34/22/2025 8:57 PM EDT BEDSIDE QEDOFDWPdfulpw28/22/2025 5:17 PM EDT BEDSIDE NSFHEEJKtpxttx75/22/2025 12:51 PM EDT VASC RENAL ARTERY DUPLEX IZYYWZZFAqmaeqr64/22/2025 12:20 PM EDT BEDSIDE AFMLHWUIevzrdj22/22/2025 8:14 AM EDT IONIZED AGBDGNUVypbkvn84/22/2025 5:58 AM EDT GVPFLYYMSZAslsaxl22/22/2025 5:58 AM EDT ZCIIUNUGHJqiudof57/22/2025 5:58 AM EDT CBC WITH AUTO MDHKDEYQWZTRMewikif24/22/2025 5:58 AM EDT COMPREHENSIVE METABOLIC TLEFAZcimmue52/22/2025 5:58 AM EDT BEDSIDE RGIIBRXNtwtnjk53/21/2025 9:49 PM EDT BEDSIDE ZGPUKGGWjfppqs13/21/2025 5:14 PM EDT BEDSIDE UEVSUSORfmcopc96/21/2025 10:57 AM EDT FL SWALLOW MOTILITY NJEDBPPEFqovynx07/21/2025 10:10 AM EDT BEDSIDE HLIUOOGLvqczwp61/21/2025 9:09 AM EDT BEDSIDE RGBQERVTvyxcrv85/21/2025 6:27 AM EDT XR ABD NG TUBE PLACEMENT 1 UJIBWhngdmd74/ 4:43 AM EDT B-TYPE NATRIURETIC RBXKTCXJlulxib45/21/2025 4:24 AM EDT IONIZED JIXTROXGonmyll27/21/2025 4:24 AM EDT MOCANZUGDCHwcofeu46/21/2025 4:24 AM EDT JBWZAMFHLCphxnrp11/21/2025 4:24 AM EDT CBC WITH AUTO ZFNYYQNCAKWXQzvfmnd17/21/2025 4:24 AM EDT COMPREHENSIVE METABOLIC OTQAGLomtlmr18/21/2025 4:24 AM EDT BEDSIDE TYBROSNTzgpprd01/21/2025 4:18 AM EDT BEDSIDE NUKFNZJQozvqpu10/20/2025 11:29 PM EDT BEDSIDE SXPOZNYNfhlyxe97/20/2025 7:38 PM EDT BEDSIDE WZHSJXWSdlkprt01/20/2025 3:14 PM EDT IONIZED ZNUOEMJOPRpelvjo21/20/2025 1:10 PM EDT BEDSIDE VEGFLTMVeuupbk61/20/2025 12:26 PM EDT CLINICAL PATHOLOGY IMMEAGHraheak97/20/2025 11:31 AM EDT BEDSIDE VCMNGPJAspujwd09/20/2025 8:[address] BRAIN WO VGTTIagtrnz64/20/2025 6:40 AM EDT XR CHEST 1 PVKyqcuct27/20/2025 3:47 AM EDT B-TYPE NATRIURETIC JJGZRIVUurgmqv39/20/2025 3:05 AM EDT IONIZED UFJFZXFVopndna33/20/2025 3:05 AM EDT REGIYZUIGOHoxggvs45/20/2025 3:05 AM EDT IURCUXKAVSigvthc41/20/2025 3:05 AM EDT CBC WITH AUTO MEGALXTJJUOUJuugkht78/20/2025 3:05 AM EDT COMPREHENSIVE METABOLIC JBZRJHeekhgc86/20/2025 3:05 AM EDT TROP I, HIGH SENSITIVITY 1 UDBMPNRP05/19/2025 3:33 AM EDT TROPONIN I, HIGH SENSITIVITY 0 PBXZTITP25/19/2025 2:52 AM EDT TROPONIN I, HIGH SENSITIVITY 0 EGJUCQHU54/19/2025 2:52 AM EDT B-TYPE NATRIURETIC PBCQISQVgfpobx25/19/2025 2:52 AM EDT IONIZED HIJQROYNeudmnu96/19/2025 2:52 AM EDT OFEMTXIVCSFoiwawj28/19/2025 2:52 AM EDT YFFCEEHLHVgoxwzb96/19/2025 2:52 AM EDT CBC WITH AUTO AHSWCJSLEWSDWvrgbyx27/19/2025 2:52 AM EDT COMPREHENSIVE METABOLIC LUMJZMnvpswy29/19/2025 2:52 AM EDT ECG 12-NHTZMsywwmy42/19/2025 1:28 AM EDT XR CHEST 1 QJPftttnz33/18/2025 11:46 AM EDT XR ABD NG TUBE PLACEMENT 1 HUJMHhlosjw46/18/2025 4:52 AM EDT CBC WITH AUTO GZKLMKJXYTRNJjgrxna05/18/2025 3:16 AM EDT COMPREHENSIVE METABOLIC UAWIIAhocfsu58/18/2025 3:16 AM EDT VASC VENOUS DUPLEX LOWER DCAKOOTSCNhectug86/17/2025 5:51 PM EDT ECHO COMPLETE W ZSCNSHJJIcxppyv47/17/2025 2:02 PM EDT XR ABD NG TUBE PLACEMENT 1 WOHNJAOC65/17/2025 12:44 PM EDT CK QZPQRUefejey60/17/2025 2:49 AM EDT CBC WITH AUTO BEUGNUVYSRHZWtfwozh78/17/2025 2:49 AM EDT COMPREHENSIVE METABOLIC DKUFMPzerevy32/17/2025 2:49 AM EDT XR ABD NG TUBE PLACEMENT 1 LFRTXEXQ20/17/2025 2:38 AM EDT PCZKSPRNTXFigtdqh08/16/2025 10:47 PM EDT EXTRA TUBES PST GTQCzumhum07/16/2025 8:02 PM EDT EXTRA QGCDVYgzcmdf50/16/2025 8:02 PM EDT DILUTE SAMIA'S VIPER VENOM IIEIBRUMAZQHCphcmzt67/16/2025 8:00 PM EDTHEMOGLOBIN AND HEMATOCRIT, BLOODAdd-On06/07/2025 8:00 PM EDT IMMUNOELECTROPHORESIS FOR THERAPY NFNSVFITZOBgzpogj80/16/2025 8:00 PM EDT CYTOPLASMIC NEUTROPHILIC AB (ANCA), TXqvcrbb44/16/2025 8:00 PM EDT GLOMERULAR BASEMENT MEMBRANE IGG VSFxasqlh70/16/2025 8:00 PM EDT HEMOGLOBIN W5IPpfwdqv98/16/2025 8:00 PM EDT PROTEIN ELECTROPHORESIS, DGIHLLogoxxo53/16/2025 8:00 PM EDT HEPATITIS PANEL, XHWOJAzselmo04/16/2025 8:00 PM EDT COMPLEMENT PROFILE (C3 AND C4)Iyitopr8806/07/2025 8:00 PM EDT ANTI CARDIOLIPIN AB IGG IGA TLFInisybl33/16/2025 8:00 PM EDT YOUCUGjpklwk38/16/2025 8:00 PM EDT US RETROPERITONEAL COMPLETE WITH IUOWEQDwggsgf34/16/2025 7:22 PM EDT UVOGJQJXXVKrbtpgg91/16/2025 4:21 PM EDT PROTEIN CREAT METSSBtxcroc96/16/2025 4:21 PM EDT MICROALBUMIN / CREATININE URINE OLJSXKzwdbfk81/16/2025 4:21 PM EDT SODIUM, URINE, RANWQRIfxlnda26/16/2025 4:21 PM EDT URINE CREATININE,UAMIZXHnufeyv54/16/2025 4:21 PM EDT XR ABD NG TUBE PLACEMENT 1 SBVNAYRO39/16/2025 2:28 PM EDT RHEUMATOID FACTORAdd-On06/07/2025 12:27 PM EDT LUIZA SCREEN W/ REFLEXAdd-On06/07/2025 12:27 PM EDT HIV 1&2 AB/AG SCREEN (P24 AG)Add-On06/07/2025 12:27 PM EDT DOUBLE STRANDED DNA ABAdd-On06/07/2025 12:27 PM EDT IRON AND TIBCAdd-On06/07/2025 12:27 PM EDT FERRITINAdd-On06/07/2025 12:27 PM EDT VITAMIN U27Ofh-Lq47/16/2025 12:27 PM EDT FOLATEAdd-On06/07/2025 12:27 PM EDT BETA-2 GLYCOPROTEIN ANTIBODIESAdd-On06/07/2025 12:27 PM EDT LEVETIRACETAM, FHreiziq65/16/2025 12:27 PM EDT CLZZLNJRNMhahgel57/16/2025 12:27 PM EDT RESP PATHOGENS PANEL/NQWI-PLN-0Lfpyfra38/16/2025 11:11 AM EDT XR CHEST 1 KOWnziylx42/16/2025 9:54 AM EDT B-TYPE NATRIURETIC PEPTIDEAdd-On06/07/2025 4:07 AM EDT CBC WITH AUTO IQDQQGPFFVLSComuoqj50/16/2025 4:07 AM EDT COMPREHENSIVE METABOLIC MVTTQGijwvuz97/16/2025 4:07 AM EDT MR BRAIN W WO TAUTILUR04/15/2025 11:53 PM EDT XR ABD NG TUBE PLACEMENT 1 CRHJTMDK33/15/2025 11:33 AM EDT EEG VIDEO KQFXCEXXXPUudttvj59/15/2025 10:38 AM EDT CBC WITH AUTO CVJEVKNHAYSMBmxmpne97/15/2025 6:52 AM EDT COMPREHENSIVE METABOLIC TDRSPQuyvphg09/15/2025 6:52 AM EDT EEG VIDEO YJGDXKHMTTMehpqve19/15/2025 6:00 AM EDT BEDSIDE AHXJTKFAiyflvm64/14/2025 3:52 PM EDT TXGFNCQLPTugheee65/14/2025 2:45 PM EDT BEDSIDE GCFMLLDGtxalwp17/14/2025 11:58 AM EDT BEDSIDE DQNUQDZZwnyvek57/14/2025 8:[address] BRAIN WO HMCJNPOX73/14/2025 7:42 AM EDT EEG VIDEO HHEMGTPTQTRvbptjw46/14/2025 6:00 AM EDT DVEUdtzhfg51/14/2025 4:24 AM EDT LIPID JHBDZQETvscziu91/14/2025 3:10 AM EDT CBC WITH AUTO TNMHBJNQBGJSRnsduxn58/14/2025 3:10 AM EDT COMPREHENSIVE METABOLIC YQDAGBmoymdo94/14/2025 3:[address] BRAIN WO KILEOqpkzxg13/14/2025 1:57 AM EDT BEDSIDE WKOFDFIXsmnnic47/13/2025 9:35 PM EDT TYPE AND OLWEPFOMFR19/13/2025 7:58 PM EDT CBC WITH AUTO OQHYJRIIZAPJXQDT21/13/2025 7:58 PM EDT COMPREHENSIVE METABOLIC PYIKEUIUD81/13/2025 7:58 PM EDT BEDSIDE PSIUNBPJhazajj85/13/2025 7:54 PM EDT REPEATED PGEEUMopmokl37/13/2025 6:00 PM EDT BETHEA TOP ON LAHXVRU1206/04/2025 6:00 PM EDT LAVENDER RSLQVPW8106/04/2025 6:00 PM EDT PST JRBWJIF0206/04/2025 6:00 PM EDT BLUE DIJABSB5306/04/2025 6:00 PM EDT HEMOGLOBIN E3VFba-Ku54/13/2025 6:00 PM EDT RAINBOW PHHFRPTZ97/13/2025 6:[address] ABDOMEN AND PELVIS W HDJXXURK31/13/2025 3:[address] CHEST W FCJQIMZV39/13/2025 3:[address] CERVICAL FXDBGBSRDOHKJYWITJ08/13/2025 2:59 PM EDT REPEATED EZKVHHfbcgmc57/13/2025 2:31 PM EDT FIBRINOGENAdd-On06/04/2025 2:[address] CTA OUFMVWJSSXR48/13/2025 2:[address] CTA FAWDOICT22/13/2025 2:19 PM EDT BLOOD GAS, XBXOVMHOUZ29/13/2025 2:[address] BRAIN WO HWSLAWVD51/13/2025 2:08 PM EDT BB ARC DHTMHFbwifgj91/13/2025 1:45 PM EDT TYPE AND HNJIJVBPKD98/13/2025 1:45 PM EDT SALICYLATE VQXNKHEQG20/13/2025 1:45 PM EDT ACETAMINOPHEN YEBHBNIFB30/13/2025 1:45 PM EDT COMPREHENSIVE METABOLIC NKZZBYPRU21/13/2025 1:45 PM EDT QMKSNBYTKGT77/13/2025 1:45 PM EDT RBNPAOXJZNFPS95/13/2025 1:45 PM EDT LACTATE W/ OCUKLXCTWJ99/13/2025 1:45 PM EDT QZQMVWKNMLU69/13/2025 1:45 PM EDT CBC WITH AUTO TINETAGKKRRZJFVH81/13/2025 1:45 PM EDT EXTRA TUBES BLUE QRJJkkvaea75/13/2025 1:43 PM EDT PROTIME & INRAdd-On06/04/2025 1:43 PM EDT APTTAdd-On06/04/2025 1:43 PM EDT EXTRA DCLFWAbjkidc99/13/2025 1:43 PM EDT ECG 12-JVPSXUEF52/13/2025 1:32 PM EDT PM ED CRITICAL SDNVNmejmau50/13/2025 1:20 PM EDT from Last 3 Months Results * (ABNORMAL) Bedside Glucose *Place/Obtain serum glucose if >500 per glucometer. (06/22/2025 4:05 PM EDT) Only the most recent of54 resultswithin the time period is included. ComponentValueRef RangeTest MethodAnalysis TimePerformed AtPathologist Signature Bedside Glucose (POC)143(H)65 - 99 mg/dL06/22/2025 4:10 PM [facility]YS[facility] (Source)Anatomical Location / LateralityCollection Method / VolumeCollection TimeReceived Timearterial//31/2025 4:05 PM EDT 06/22/2025 4:10 PM EDT Narrative Authorizing ProviderResult TypeResult StatusEhad Monika MDPOINT OF CARE TEST ORDERABLESFinal ResultPerforming OrganizationAddressCity/State/ZIP CodePhone Number [facility] [address] [place] [phone], * CBC auto differential (06/22/2025 8:00 AM EDT) Only the most recent of20 resultswithin the time period is included. ComponentValueRef RangeTest MethodAnalysis TimePerformed AtPathologist Signature WBC5.64 - 11 x10E9/L1 9:23 AM [facility] LABORATORYRBC Count4.324.1 - 5.7 X10E12/L1 9:23 AM [facility] MDYKQGDJUTYcuscupejg76.613 - 17 g/dL06/22/2025 9:23 AM [facility] YVOTBFSSXYSyplnlehkg34.139 - 50 %06/22/2025 9:23 AM [facility] FOYJUZVZWPLCM2721 - 100 fL06/22/2025 9:23 AM [facility] YWIOSFQAEFGDG53.527 - 34 pg06/22/2025 9:23 AM [facility] DMDQATLVACPLAO56.032 - 36 g/dL06/22/2025 9:23 AM [facility] MRFPYRKYDFEGT62.211.5 - 15 %06/22/2025 9:23 AM [facility] LABORATORYPlatelet Dpngo172481 - 450 X10E9/L1 9:23 AM [facility] LABORATORYMPV8.77 - 12 fL06/22/2025 9:23 AM [facility] LABORATORYNeutrophils %58.9%06/22/2025 9:23 AM [facility]ORATORYLymphocytes %24.8%06/22/2025 9:23 AM [facility] LABORATORYMonocytes %10.5%06/22/2025 9:23 AM [facility]ORATORYEosinophils %4.8%06/22/2025 9:23 AM [facility] LABORATORYBasophils %1.0%06/22/2025 9:23 AM [facility] LABORATORYNeutrophils Absolute (A)3.31.5 - 6.6 10*3/uL06/22/2025 9:23 AM EDT [facility]ORYLymphocytes Absolute1.41.0 - 3.5 10*3/uL 06/22/2025 9:23 AM [facility] LABORATORYMonocytes Absolute0.6 0.0 - 0.9 10*3/uL06/22/2025 9:23 AM [facility] Eosinophils Absolute0.30.0 - 0.4 10*3/uL06/22/2025 9:23 AM [facility] LABORATORYBasophils Absolute0.10.0 - 0.2 10*3/uL06/22/2025 9:23 AM EDT [facility] LABORATORYDifferential TypeAUTOMATED DIFFERENTIAL 06/22/2025 9:23 AM [facility]ORATORYSpecimen (Source) Anatomical Location / LateralityCollection Method / VolumeCollection Time Received TimeBloodVenous blood / UnknownVenipuncture / Hbjvnss5306/22/2025 8:00 AM EDT1 9:07 AM EDT Narrative Authorizing ProviderResult TypeResult StatusFahpipe BARNES BLOOD ORDERABLES Final ResultPerforming OrganizationAddressCity/State/ZIP CodePhone Number [facility] [address] [place] [address], * Phosphorus (06/22/2025 8:00 AM EDT) Only the most recent of13 resultswithin the time period is included. ComponentValueRef RangeTest MethodAnalysis TimePerformed AtPathologist Signature PHOSPHORUS4.62.4 - 4.9 mg/dL06/22/2025 9:36 AM [facility]ORATORYSpecimen (Source)Anatomical Location / LateralityCollection Method / VolumeCollection TimeReceived TimeBloodVenous blood / UnknownVenipuncture / Ugobkim5306/22/2025 8:00 AM EDT1 9:07 AM EDT Narrative Authorizing ProviderResult TypeResult StatusRamy A Erinn MDLAB BLOOD ORDERABLES Final ResultPerforming OrganizationAddressCity/State/ZIP CodePhone Number [facility] [address] [place] [address] [address] [place] [address], * Magnesium (06/22/2025 8:00 AM EDT) Only the most recent of14 resultswithin the time period is included. ComponentValueRef RangeTest MethodAnalysis TimePerformed AtPathologist Signature MAGNESIUM2.31.8 - 2.6 mg/dL06/22/2025 9:36 AM [facility]ORATORYSpecimen (Source)Anatomical Location / LateralityCollection Method / VolumeCollection TimeReceived TimeBloodVenous blood / UnknownVenipuncture / Rjvdpjy9006/22/2025 8:00 AM EDT1 9:07 AM EDT Narrative Authorizing ProviderResult TypeResult StatusRamy Luciana Plasencia MDLAB BLOOD ORDERABLES Final ResultPerforming OrganizationAddressCity/State/ZIP CodePhone Number [facility] [address] [place] [address] [address] [place] [address], * Ionized calcium (06/22/2025 8:00 AM EDT) Only the most recent of13 resultswithin the time period is included. ComponentValueRef RangeTest MethodAnalysis TimePerformed AtPathologist Signature IONIZED CALCIUM - ICAN5.14.5 - 5.3 mg/dL06/22/2025 9:17 AM [facility] LABORATORYSpecimen (Source)Anatomical Location / LateralityCollection Method / VolumeCollection TimeReceived TimeBloodVenous blood / Unknown Venipuncture / Yzestpl1806/22/2025 8:00 AM EDT1 9:09 AM EDT Narrative Authorizing ProviderResult TypeResult StatusRamy Luciana BARNES BLOOD ORDERABLES Final ResultPerforming OrganizationAddressCity/State/ZIP CodePhone Number [facility] [address] [place] [address], * (ABNORMAL) Comprehensive metabolic panel (06/22/2025 8:00 AM EDT) Only the most recent of20 resultswithin the time period is included. ComponentValueRef RangeTest MethodAnalysis TimePerformed AtPathologist Signature SRWPWC903(H)134 - 146 mmol/L1 9:36 AM [facility] LABORATORYPOTASSIUM4.63.5 - 5.0 mmol/L1 9:36 AM [facility] QNHTIQXBLCVJQWAWIB672(H)98 - 109 mmol/L1 9:36 AM [facility] LABORATORYCARBON XLICUMR5738 - 32 mmol/L1 9:36 AM EDT [facility]ORYANION MSE630 - 15 mmol/L1 9:36 AM [facility] LABORATORYBLOOD UREA ANHDLKBS78(H)5 - 27 mg/dL 06/22/2025 9:36 AM [facility] LABORATORYCREATININE1.75(H)0.60 - 1.30 mg/dL06/22/2025 9:36 AM [facility]ORATORYComment: METHOD TRACEABLE TO IDMS DYDYQDIZZBEAQQN161(H)65 - 99 mg/dL06/22/2025 9:36 AM [facility] LABORATORYCALCIUM9.98.5 - 10.5 mg/dL06/22/2025 9:36 AM [facility] LABORATORYTOTAL PROTEIN7.26.0 - 8.0 g/dL 06/22/2025 9:36 AM [facility] LABORATORYALBUMIN3.73.2 - 5.3 g/dL06/22/2025 9:36 AM [facility]OR[facility]ORYALKALINE QEDYVQPBTQS7156 - 130 U/L1 9:36 AM [facility] WHEONULDIPCIY73<=41 U/L1 9:36 AM [facility] ALT29<=40 U/L1 9:36 AM [facility] BILIRUBIN,TOTAL0.40.3 - 1.2 mg/dL06/22/2025 9:36 AM [facility]ORYEGFR Non-Race Jkbqhahbp39(L)>=60 ml/min/1.73sq.m1 9:36 AM EDT [facility]Comment: Reported eGFR is based on the CKD-EPI 2020 equation that does not use a race coefficient. Specimen (Source)Anatomical Location / LateralityCollection Method / Volume Collection TimeReceived TimeBloodVenous blood / UnknownVenipuncture / Unknown 06/22/2025 8:00 AM EDT1 9:07 AM EDT Narrative Authorizing ProviderResult TypeResult StatusFahpipe BARNES BLOOD ORDERABLES Final ResultPerforming OrganizationAddressCity/State/ZIP CodePhone Number [facility] [address] [place] [address], * CT brain without contrast (06/21/2025 2:07 PM EDT) Only the most recent of5 resultswithin the time period is included. Anatomical RegionLateralityModalityNeuro, Head, Head and Neck, Neuro CoveraN/A Computed TomographySpecimen (Source)Anatomical Location / LateralityCollection Method / [...] nonacute ischemic events. Approved by Res Ishan Vidal, DO ??on 06/21/2025 2:20 PM IStiven MD have personally [...] PM Authorizing ProviderResult TypeResult StatusAhmed A Adolph The MDIMG CT ORDERABLES Final Result * Vas venous duplex lwr bilateral (06/21/2025 1:26 PM EDT) Only the most recent of3 resultswithin the time period is included. Anatomical RegionLateralityModalityVascularBilateralUltrasoundSpecimen (Source) Anatomical Location / LateralityCollection Method / VolumeCollection Time Received Time06/21/2025 1:29 PM EDT Narrative 06/21/2025 2:00 PM [...] besidetheir name. Authorizing ProviderResult TypeResult StatusFahham Bang [facility] VASCULAR ORDERABLESFinal Result * X-ray chest 1 view (06/17/2025 2:34 PM EDT) Only the most recent of4 resultswithin the time period is included. Anatomical RegionLateralityModalityBody, ChestN/AComputed RadiographySpecimen (Source)Anatomical Location / LateralityCollection Method [...] on 06/17/2025 3:12 PM Authorizing ProviderResult TypeResult StatusFaSumma Health [facility] DIAGNOSTIC IMAGING ORDERABLESFinal Result * (ABNORMAL) Urinalysis (06/17/2025 2:14 PM EDT) Only the most recent of3 resultswithin the time period is included. ComponentValueRef RangeTest MethodAnalysis TimePerformed AtPathologist Signature GRWZFCmetvgOxdiql02/26/2025 2:55 PM [facility] TURBIDITYHazy(A)Clear06/17/2025 2:55 PM [facility] SPECIFIC GRAVITY1.0151.003 - 1.9806206/17/2025 2:55 PM [facility] UQYLWYYJPXWEDAOEUIekwldeuTxvmsgmu66/26/2025 2:55 PM [facility] LABORATORYPH,URINE6.05.0 - 8.510 2:55 PM [facility] LABORATORYLEUKOCYTE ESTERASESmall(A)Xkywiiwn42/26/2025 2:55 PM [facility] JHJDUBMVROGLKTMYG583 mg/dL(A)Aenzxsqe84/26/2025 2:55 PM EDT [facility]ORYKETONES (URINE)VadcxrwpHqdbjyvl80/26/2025 2:55 PM [facility] LABORATORYUROBILINOGEN<1.1 eu/dL<1.1 eu/dL 06/17/2025 2:55 PM [facility] LABORATORYBILIRUBIN (URINE) OvcvkrfxDnbpkxxv44/26/2025 2:55 PM [facility] BLOOD/HGBLarge(A)Lgodisip23/26/2025 2:55 PM [facility]ATORYHYALINE CASTS4(H)0 - 2:55 PM [facility]ORATORYR.B.CELLS>720(H)0 - 2:55 PM [facility] LABORATORYW.B.CELLS11(H)0 - 2:55 PM [facility] LABORATORYGLUCOSE (URINE)TepryxmoXcamriun17/26/2025 2:55 PM [facility] LABORATORYSpecimen (Source)Anatomical Location / LateralityCollection Method / VolumeCollection TimeReceived TimeUrine (Urine, Indwelling Catheter) 06/17/2025 2:14 PM EDT1 2:18 PM EDT Narrative Authorizing ProviderResult TypeResult StatusAlphonse Cuenca MDURINE ORDERABLES Final ResultPerforming OrganizationAddressCity/State/ZIP CodePhone Number [facility] [address] [place] [address], * Urine Culture Urine, Indwelling Catheter (06/17/2025 1:48 PM EDT)Component ValueRef RangeTest MethodAnalysis TimePerformed AtPathologist SignatureCULTURE RESULTSNO GROWTH AT <1000 CFU/mL06/18/2025 12:46 PM [facility] LABORATORYSpecimen (Source)Anatomical Location / LateralityCollection Method / VolumeCollection TimeReceived TimeUrine (Urine, Indwelling Catheter) 06/17/2025 1:48 PM EDT1 2:18 PM EDT Narrative Authorizing ProviderResult TypeResult Janet Cuenca MDMICROBIOLOGY - GENERAL ORDERABLESFinal ResultPerforming OrganizationAddressCity/State/ZIP Code Phone Number [facility] [address] [place] [address], [place] [phone] * Blood culture #2 (06/17/2025 1:20 PM EDT) Only the most recent of2 resultswithin the time period is included. ComponentValueRef RangeTest MethodAnalysis TimePerformed AtPathologist Signature CULTURE RESULTSNO GROWTH 5 DAYS06/22/2025 2:02 PM [facility] LABORATORYSpecimen (Source)Anatomical Location / LateralityCollection Method / VolumeCollection TimeReceived TimeBloodVenous blood / UnknownVenipuncture / Nnzcvmp2206/17/2025 1:20 PM EDT1 1:49 PM EDT Narrative [facility] - 06/22/2025 2:02 PM EDT Suboptimal volume of blood collected, Results may be affected. Authorizing ProviderResult TypeResult StatusFamercy [facility] Bang MDMICROBIOLOGY - GENERAL ORDERABLESFinal ResultPerforming OrganizationAddressCity/State/ZIP Code Phone Number [facility] [address] [place] [address], * (ABNORMAL) Sodium (06/15/2025 5:52 PM EDT)ComponentValueRef RangeTest Method Analysis TimePerformed AtPathologist HdkosadnkZNUBVL293(H)134 - 146 mmol/L 06/15/2025 7:11 PM [facility] LABORATORYSpecimen (Source) Anatomical Location / LateralityCollection Method / VolumeCollection Time Received TimeBloodVenous blood / UnknownVenipuncture / Iqbfoia0006/15/2025 5:52 PM EDT1 6:31 PM EDT Narrative Authorizing ProviderResult TypeResult StatusVidhit Yuko DOLAB BLOOD ORDERABLES Final ResultPerforming OrganizationAddressCity/State/ZIP CodePhone Number [facility] [address] [place] [address], * Potassium (06/15/2025 5:52 PM EDT) Only the most recent of3 resultswithin the time period is included. ComponentValueRef RangeTest MethodAnalysis TimePerformed AtPathologist Signature POTASSIUM4.53.5 - 5.0 mmol/L1 7:11 PM [facility] LABORATORYSpecimen (Source)Anatomical Location / LateralityCollection Method / VolumeCollection TimeReceived TimeBloodVenous blood / UnknownVenipuncture / Vvuapzi3306/15/2025 5:52 PM EDT1 6:31 PM EDT Narrative Authorizing ProviderResult TypeResult StatusFamatthew BARNES BLOOD ORDERABLES Final ResultPerforming OrganizationAddressCity/State/ZIP CodePhone Number [facility] [address] [place] [address], [place] [phone] * NM renogram with lasix (06/15/2025 12:38 [...] StatusRebeckesha Tim PAIMG NM ORDERABLESFinal Result * Fluoroscopy swallow motility function (06/14/2025 2:24 PM EDT) Only the most recent of2 resultswithin the time period is included. Anatomical RegionLateralityModalityChest, Abdomen, BodyRadio FluoroscopySpecimen (Source)Anatomical Location / LateralityCollection Method / VolumeCollection TimeReceived Time06/14/2025 2:33 PM EDT Narrative 06/14/2025 2:38 [...] Med Figueroa MD ??on 06/14/2025 2:33 PM IStiven MD have personally [...] 06/14/2025 2:38 PM Authorizing ProviderResult TypeResult Cas Moses MDIMG FLUOROSCOPY ORDERABLESFinal Result * Vas renal artery duplex complete (06/13/2025 [...] phone number besidetheir name. Authorizing ProviderResult TypeResult StatusMojose Ortiz [facility] [place] VASCULAR ORDERABLESFinal Result * X-ray abdomen NG Tube placement 1 view (06/12/2025 4:43 AM EDT) Only the most recent of6 resultswithin the time period is included. Anatomical RegionLateralityModalityBody, AbdomenN/AComputed RadiographySpecimen (Source)Anatomical Location / LateralityCollection Method / VolumeCollection TimeReceived Time06/12/2025 4:46 AM EDT Narrative 06/12/2025 4:47 [...] on 06/12/2025 4:47 AM Authorizing ProviderResult TypeResult StatusAmee Whaley MDIMG DIAGNOSTIC IMAGING ORDERABLESFinal Result * (ABNORMAL) B-type natriuretic peptide (06/12/2025 4:24 AM EDT) Only the most recent of4 resultswithin the time period is included. ComponentValueRef RangeTest MethodAnalysis TimePerformed AtPathologist Signature AXV453(H)<=100 pg/mL06/12/2025 6:27 AM [facility] Specimen (Source)Anatomical Location / LateralityCollection Method / Volume Collection TimeReceived TimeBloodVenous blood / UnknownVenipuncture / Unknown 06/12/2025 4:24 AM EDT1 5:30 AM EDT Narrative Authorizing ProviderResult TypeResult StatusAdan Plasencia MDLAB BLOOD ORDERABLES Final ResultPerforming OrganizationAddressty/State/ZIP CodePhone Number [facility] [address] [place] [address], * Ionized magnesium (06/11/2025 1:10 PM EDT)ComponentValueRef RangeTest Method Analysis TimePerformed AtPathologist SignatureIONIZED MAGNESIUM0.700.45 - 0.74 mmol/L1 1:43 PM [facility] LABORATORYSpecimen (Source)Anatomical Location / LateralityCollection Method / VolumeCollection TimeReceived TimeBloodVenous blood / UnknownVenipuncture / Pexsnoi4706/11/2025 1:10 PM EDT1 1:23 PM EDT Narrative Authorizing ProviderResult TypeResult StatusEhtaqueria Frank MDLAB BLOOD ORDERABLES Final ResultPerforming OrganizationAddressty/State/ZIP CodePhone Number [facility] [address] [place] [address], * Clinical Pathology Review (06/11/2025 11:31 AM EDT)ComponentValueRef RangeTest MethodAnalysis TimePerformed AtPathologist SignatureCase ReportClinical Pathology Report ? Case: [id number] ? Authorizing Provider: ??Ed Ortiz MD ?Collected: ? 06/11/2025 1131 ? Ordering Location: ? [facility] ??Received: ?06/11/2025 1131 ? - GEN 8 ICU ? Pathologist: ? Basilio Garrido MD ? Specimen: ?Blood, Venous ? 06/13/2025 8:09 PM [facility]ATORYFinal DiagnosisNo monoclonal protein identified. 06/13/2025 8:09 PM [facility] at 2009 EDTSpecimen (Source)Anatomical Location / LateralityCollection Method / VolumeCollection TimeReceived Time Venous blood / Jfgkdvk5006/11/2025 11:31 AM EDT1 11:31 AM EDT Narrative Authorizing ProviderResult TypeResult StatusMohamed Luciana Ortiz MD PATHOLOGY/CYTOLOGY ORDERABLESFinal ResultPerforming OrganizationAddress City/State/ZIP CodePhone Number [facility] [address] [place] [id number], * Troponin I, High Sensitivity 1 Hour (06/10/2025 3:33 AM EDT)ComponentValueRef RangeTest MethodAnalysis TimePerformed AtPathologist SignatureTROPONIN I, HIGH SWSANDFWMZJ36<21 ng/L1 4:15 AM [facility] Specimen (Source)Anatomical Location / LateralityCollection Method / Volume Collection TimeReceived TimeBloodVenous blood / UnknownVenipuncture / Unknown 06/10/2025 3:33 AM EDT1 3:42 AM EDT Narrative Authorizing ProviderResult TypeResult StatusMargo Drake MDLAB BLOOD ORDERABLESFinal ResultPerforming OrganizationAddressCity/State/ZIP CodePhone Number [facility] [address] [place] [address], * Troponin I, High Sensitivity 0 Hour (06/10/2025 2:52 AM EDT)ComponentValueRef RangeTest MethodAnalysis TimePerformed AtPathologist SignatureTROPONIN I, HIGH ADLPEDJIDPS86<21 ng/L1 3:35 AM [facility] Specimen (Source)Anatomical Location / LateralityCollection Method / Volume Collection TimeReceived TimeBloodVenous blood / UnknownVenipuncture / Unknown 06/10/2025 2:52 AM EDT1 3:03 AM EDT Narrative Authorizing ProviderResult TypeResult StatusMargo Drake MDLAB BLOOD ORDERABLESFinal ResultPerforming OrganizationAddressCity/State/ZIP CodePhone Number [facility] [address] [place] [address], * ECG 12 lead (06/10/2025 1:28 AM EDT) Only the most recent of2 resultswithin the time period is included. Specimen (Source)Anatomical Location / LateralityCollection Method / Volume Collection TimeReceived Time06/10/2025 1:28 AM EDT Narrative [facility] - 06/10/2025 9:22 AM EDT Authorizing ProviderResult TypeResult StatusMargo Drake MDECG ORDERABLES Final ResultPerforming OrganizationAddressCity/State/ZIP CodePhone Number [facility] * Echo complete W/ contrast (06/08/2025 2:02 PM EDT)ComponentValueRef RangeTest MethodAnalysis TimePerformed AtPathologist SignatureLVOT stroke flafzx08.40ml TJCEKBOIT4989 - 44 %XCELERALVIDd4.708.34 - 11.59 cmXCELERALVIDs3.204.80 - 7.27 cmXCELERAIVS1.300.6 - 1.1 cmXCELERAPW1.300.6 - 1.1 cmXCELERALVOT diameter2.00 cmXCELERATDI6.96cm/sXCELERAMV TDI E' (medial)6.42cm/sXCELERALA Volume Index 30.6mL/u0WGAISAPB/A ratio0.87XCELERAE wave deceleration otcl707.00msecXCELERA MV Peak E Mkv847.00cm/sXCELERAMV Peak A Mtb038.00cm/sXCELERALA size2.90cm XCELERAAortic root3.90cmXCELERALA masnsa34.35am3LYAPRQTVPSGW2.08cmXCELERAAV peak uvp761.00cm/sXCELERALVOT peak vel1.31m/sXCELERAAV VTI23.20cmXCELERALVOT peak VTI24.00cmXCELERAAV mean gradient5.00mmHgXCELERAAV peak gradient8.41mmHg XCELERAAV valve area3.25XCELERAValve area - Index1.3XCELERAMV pressure 1/2 time75.00msXCELERAMV valve area p 1/2 method2.28wu1UUTVWRUZI peak gradient3.16 mmHgXCELERALV ESV A2C63.40mLXCELERALV ESV A4C75.80mLXCELERALV RWT 2D55.32 XCELERAAV Velocity Ratio1.03XCELERALeft Ventricle Tfmz719.910222112764558o XCELERAInterventricular Septum Diastolic Thickness by 1D42kxCULHROYQT area13.1 aa1YJWIQEUYytrzqtcj aorta3.70cmXCELERAAo asc z-score3.46cmXCELERARV diastolic dimension (basal)34.5mmXCELERAEst. RA ipeugzqs5yjSoWFPCOEPSVLDJT-2.85XCELERA ZLVIDD-7.38XCELERAEnergy loss index28.06XCELERAAnatomical RegionLaterality ModalityChestN/AUltrasoundSpecimen (Source)Anatomical Location [...] to follow commands. Authorizing ProviderResult TypeResult StatusAhmed A Adolph Theeb MDCV ECHO ORDERABLESFinal Result * CK Total (06/08/2025 2:49 AM EDT)ComponentValueRef RangeTest MethodAnalysis TimePerformed AtPathologist YauigqtcqWXB44427 - 195 U/L1 4:36 AM EDT [facility]YSpecimen (Source)Anatomical Location / LateralityCollection Method / VolumeCollection TimeReceived TimeBloodVenous blood / UnknownVenipuncture / Hrhwjut7406/08/2025 2:49 AM EDT1 3:53 AM EDT Narrative Authorizing ProviderResult TypeResult StatusMohamed Luciana Ortiz MDLAB BLOOD ORDERABLESFinal ResultPerforming OrganizationAddressCity/State/ZIP CodePhone Number [facility] [address] [place] [address], * PST TOP (06/07/2025 8:02 PM EDT)ComponentValueRef RangeTest MethodAnalysis TimePerformed AtPathologist SignatureExtra TubeAuto Oinhsfty88/16/2025 10:02 PM [facility]TTC[facility] LABORATORYSpecimen (Source)Anatomical Location / LateralityCollection Method / VolumeCollection TimeReceived TimeBloodVenous blood / Vfmlfpl3806/07/2025 8:02 PM EDT1 8:16 PM EDT Narrative Authorizing ProviderResult TypeResult StatusEhad Monika MDLAB BLOOD ORDERABLES Final ResultPerforming OrganizationAddressCity/State/ZIP CodePhone Number [facility] [address] [place] [address], * Dilute Samia's Viper Venom Confirmation (06/07/2025 8:00 PM EDT)Specimen (Source)Anatomical Location / LateralityCollection Method / VolumeCollection TimeReceived TimeBloodVenous blood / UnknownVenipuncture / Weaejug6606/07/2025 8:00 PM EDT1 8:15 PM EDT Narrative Authorizing ProviderResult TypeResult StatusOlubode Jonathan Alex [facility] BLOOD ORDERABLESFinal ResultPerforming OrganizationAddressCity/State/ZIP CodePhone Number [facility] [address] [place] [address], * Cytoplasmic Neutrophilic Ab (ANCA), S (06/07/2025 8:00 PM EDT)ComponentValue Ref RangeTest MethodAnalysis TimePerformed AtPathologist SignatureC-ANCA SeakjehuYukttqdu12/17/2025 2:44 PM EDHCA [facility] LABORATORIESP-ANCANegative Njkpliqm26/17/2025 2:44 PM [facility] LABORATORIESComment: Negative for cANCA and pANCA patterns by immunofluorescence. ADDITIONAL INFORMATION This test was developed and its performance characteristics determined by [facility] in a manner consistent with CLIA requirements. This test has not been cleared or approved by the [place].S. Food and Drug Administration. Test Performed by: [facility] [address] [place] [address] Tag Stringer: Anastasiya Alegria Ph.D.; CLIA# [id number] Specimen (Source)Anatomical Location / LateralityCollection Method / Volume Collection TimeReceived TimeBloodVenous blood / UnknownVenipuncture / Unknown 06/07/2025 8:00 PM EDT1 8:15 PM EDT Narrative Authorizing ProviderResult TypeResult StatusMohamed Luciana Ortiz [facility] BLOOD ORDERABLESFinal ResultPerforming OrganizationAddressCity/State/ZIP CodePhone Number [facility] [address] [place] [address], * Anti cardiolipin AB IgG IgA IgM (06/07/2025 8:00 PM EDT)ComponentValueRef RangeTest MethodAnalysis TimePerformed AtPathologist SignatureACA IGA<2.00.0 - 19.9 APL06/07/2025 9:47 PM [facility]DUNL[facility] LABORATORYACA IGG<1.6 0.0 - 19.9 GPL1 9:47 PM [facility]ORATORYACA IGM <1.50.0 - 19.9 MPL06/07/2025 9:47 PM [facility] Specimen (Source)Anatomical Location / LateralityCollection Method / Volume Collection TimeReceived TimeBloodVenous blood / UnknownVenipuncture / Unknown 06/07/2025 8:00 PM EDT1 8:15 PM EDT Narrative Authorizing ProviderResult TypeResult StatusOlubode Jonathan Alex UTLAB BLOOD ORDERABLESFinal ResultPerforming OrganizationAddressCity/State/ZIP CodePhone Number [facility] [address] [place] [address], * Glomerular basement membrane IgG AB (06/07/2025 8:00 PM EDT)ComponentValueRef RangeTest MethodAnalysis TimePerformed AtPathologist SignatureGBM IGG AB<0.2 <1.0 06/07/2025 10:33 PM [facility] LABORATORYSpecimen (Source)Anatomical Location / LateralityCollection Method / VolumeCollection TimeReceived TimeBloodVenous blood / UnknownVenipuncture / Nxfgoyp1006/07/2025 8:00 PM EDT1 8:15 PM EDT Narrative Authorizing ProviderResult TypeResult StatusMohamjoyce Luciana Angel [facility] BLOOD ORDERABLESFinal ResultPerforming OrganizationAddressCity/State/ZIP CodePhone Number [facility] [address] [place] [address], * (ABNORMAL) Complement profile (C3 AND C4) (06/07/2025 8:00 PM EDT)Component ValueRef RangeTest MethodAnalysis TimePerformed AtPathologist Signature COMPLEMENT C323893 - 184 mg/dL06/07/2025 8:50 PM [facility] LABORATORYCOMPLEMENT C453(H)16 - 47 mg/dL06/07/2025 8:50 PM [facility] LABORATORYSpecimen (Source)Anatomical Location / LateralityCollection Method / VolumeCollection TimeReceived TimeBloodVenous blood / Unknown Venipuncture / Ajcjegr4406/07/2025 8:00 PM EDT1 8:15 PM EDT Narrative Authorizing ProviderResult TypeResult StatusMohamjoyce Ortiz UTLAB BLOOD ORDERABLESFinal ResultPerforming OrganizationAddressCity/State/ZIP CodePhone Number [facility] [address] [place] [address], * (ABNORMAL) Hemoglobin and hematocrit, blood (06/07/2025 8:00 PM EDT)Component ValueRef RangeTest MethodAnalysis TimePerformed AtPathologist Signature Uniegwyrnu72.113 - 17 g/dL06/08/2025 3:47 AM [facility] NIJMPISPHMLntqpyprmh07.1(L)39 - 50 %06/08/2025 3:47 AM [facility] LABORATORYSpecimen (Source)Anatomical Location / LateralityCollection Method / VolumeCollection TimeReceived TimeBloodVenous blood / Unknown Venipuncture / Uptmymc8906/07/2025 8:00 PM EDT1 8:15 PM EDT Narrative Authorizing ProviderResult TypeResult StatusMohamad Bob Whaley UTLAB BLOOD ORDERABLESFinal ResultPerforming OrganizationAddressCity/State/ZIP CodePhone Number [facility] [address] [place] [address], * Hepatitis panel, acute (06/07/2025 8:00 PM EDT)ComponentValueRef RangeTest MethodAnalysis TimePerformed AtPathologist SignatureHEPATITIS B SURF AG Joy-GvxrgpznPrg-Jvipzhxc59/16/2025 10:26 PM [facility] LABORATORYHEPATITIS A AFJFqr-RpiigkfgHzo-Zpwvjscm99/16/2025 10:26 PM [facility] LABORATORYHEPATITIS B CORE BGVYew-VzuwtqdbOfh-Rendzomt 06/07/2025 10:26 PM [facility] LABORATORYANTI HCV W/PCR REFLX Hna-XnsfsmisLil-Itkeswnx29/16/2025 10:26 PM [facility]ORATORYComment: If recent infection suspected, recommend repeat testing (>2 months). Zlilpa-lt-chskph ratio is <1.0. Specimen (Source)Anatomical Location / LateralityCollection Method / Volume Collection TimeReceived TimeBloodVenous blood / UnknownVenipuncture / Unknown 06/07/2025 8:00 PM EDT1 8:15 PM EDT Narrative Authorizing ProviderResult TypeResult StatusMohamjoyce Ortiz UTLAB BLOOD ORDERABLESFinal ResultPerforming OrganizationAddressCity/State/ZIP CodePhone Number [facility] [address] [place] [address], * DRVVT (06/07/2025 8:00 PM EDT)ComponentValueRef RangeTest MethodAnalysis Time Performed AtPathologist SignatureDILUTE SAMIA'S VIPER VENOMNEGATIVE FOR LUPUS BCUFSPTBGWOOZ98/20/2025 9:36 AM [facility] Specimen (Source)Anatomical Location / LateralityCollection Method / Volume Collection TimeReceived TimeBloodVenous blood / UnknownVenipuncture / Unknown 06/07/2025 8:00 PM EDT1 8:15 PM EDT Narrative Authorizing ProviderResult TypeResult StatusOlubdarline Alex [facility] BLOOD ORDERABLESFinal ResultPerforming OrganizationAddressCity/State/ZIP CodePhone Number [facility] [address] [place] [address], * (ABNORMAL) Immunoelectrophoresis for Therapy Monitoring (06/07/2025 8:00 PM EDT)ComponentValueRef RangeTest MethodAnalysis TimePerformed AtPathologist WckbxdpnhNGF83208 - 378 mg/dL06/13/2025 8:15 PM [facility] MLLWSTDFIQZVK664574 - 1,741 mg/dL06/13/2025 8:15 PM [facility] VNUAGFXJMFKOX03377 - 281 mg/dL06/13/2025 8:15 PM [facility] LABORATORYFREE KAPPA LT CHAINS3.96(H)0.33 - 1.94 mg/dL06/13/2025 8:15 PM [facility] LABORATORYImmune Profile InterpretationSee Pathology Kjujrf6006/13/2025 8:15 PM [facility] LABORATORYFREE LAMBDA LT CHAINS2.65(H)0.57 - 2.63 mg/dL06/13/2025 8:15 PM [facility] LABORATORYFREE JULIENNE/LAMBD RATIO1.490.26 - 1.6506/13/2025 8:15 PM EDT [facility]YSpecimen (Source)Anatomical Location / LateralityCollection Method / VolumeCollection TimeReceived TimeBloodVenous blood / UnknownVenipuncture / Ncobfij5106/07/2025 8:00 PM EDT1 8:15 PM EDT Narrative Authorizing ProviderResult TypeResult StatusMohamed Luciana BARNES BLOOD ORDERABLESFinal ResultPerforming OrganizationAddressCity/State/ZIP CodePhone Number [facility] [address] [place] [address], * (ABNORMAL) Protein electrophoresis, serum (06/07/2025 8:00 PM EDT)Component ValueRef RangeTest MethodAnalysis TimePerformed AtPathologist SignatureTOTAL PROTEIN5.9(L)6.0 - 8.0 g/dL06/11/2025 8:47 AM [facility]ORATORYALPHA 1 GLOBULIN0.30.1 - 0.4 g/dL06/11/2025 8:47 AM [facility]ORYALPHA 2 GLOBULIN0.60.4 - 1.1 g/dL06/11/2025 8:47 AM [facility]ATORYBETA GLOBULIN0.90.5 - 1.2 g/dL 06/11/2025 8:47 AM [facility] LABORATORYGAMMA GLOBULIN0.90.5 - 1.6 g/dL06/11/2025 8:47 AM [facility]ORYProtein Electrophoresis InterpUnremarkable protein distribution, no monoclonal bands 06/11/2025 8:47 AM [facility]ORYAlbumin3.3(L)3.4 - 5.3 g/dL06/11/2025 8:47 AM [facility] LABORATORYSpecimen (Source)Anatomical Location / LateralityCollection Method / VolumeCollection TimeReceived TimeBloodVenous blood / UnknownVenipuncture / Wgmrfvs8306/07/2025 8:00 PM EDT1 8:15 PM EDT Narrative Authorizing ProviderResult TypeResult StatusMohamed Luciana BARNES BLOOD ORDERABLESFinal ResultPerforming OrganizationAddressCity/State/ZIP CodePhone Number [facility] [address] [place] [address], * (ABNORMAL) Hemoglobin A1c (06/07/2025 8:00 PM EDT) Only the most recent of2 resultswithin the time period is included. ComponentValueRef RangeTest MethodAnalysis TimePerformed AtPathologist Signature HEMOGLOBIN A1C8.3(H)4.4 - 5.6 %06/07/2025 8:43 PM [facility]ORATORYComment: ?ADA Guidelines ?Result ?HgbA1c ? Normal : ? less than 5.7 % ? Prediabetes : ?5.7 % ??to 6.4 % Diabetes : > 6.4 % ?Use with caution in patients with abnormal hemoglobin variants as ??the half-life of red blood cells and in vivo glycation rates are ??affected. EST. AVERAGE FHKCIYT251of/dL06/07/2025 8:43 PM [facility]ORATORYSpecimen (Source)Anatomical Location / LateralityCollection Method / VolumeCollection TimeReceived TimeBloodVenous blood / UnknownVenipuncture / Zmsieyx8706/07/2025 8:00 PM EDT1 8:15 PM EDT Narrative Authorizing ProviderResult TypeResult StatusMohamed Luciana BARNES BLOOD ORDERABLESFinal ResultPerforming OrganizationAddressCity/State/ZIP CodePhone Number [facility] [address] [place] [address], [place] [phone] * Ultrasound retroperitoneal complete with duplex (06/07/2025 [...] on 06/07/2025 9:30 PM Authorizing ProviderResult TypeResult StatusMojose WASSERMAN ORDERABLESFinal Result * (ABNORMAL) Protein creat ratio (06/07/2025 4:21 PM EDT)ComponentValueRef Range Test MethodAnalysis TimePerformed AtPathologist SignatureURINE PROTEIN, RANDOM (MG/L)1,120(H)<120 mg/L1 6:31 PM [facility]ORATORYURINE CREATININE,QVF284.24mg/dL06/07/2025 6:31 PM [facility]ORATORYU/PRO/CATCHER PLUG RATIO CALC1.00(H)<=0. 6:31 PM EDT [facility]pecimen (Source)Anatomical Location / LateralityCollection Method / VolumeCollection TimeReceived TimeUrineUrine / Wgkwvgt3106/07/2025 4:21 PM EDT1 5:17 PM EDT Narrative [facility] - 06/07/2025 6:31 PM EDT Nephrotic Syndrome is associated with ratios >3.5 Authorizing ProviderResult TypeResult StatusMohamjoyce LEWIS ORDERABLES Final ResultPerforming OrganizationAddressCity/State/ZIP CodePhone Number [facility] [address] [place] [address], [place] [phone] * Urine Creatinine,random (06/07/2025 4:21 PM EDT)ComponentValueRef RangeTest MethodAnalysis TimePerformed AtPathologist SignatureURINE CREATININE,ZRH197.24 mg/dL06/07/2025 6:31 PM [facility]ORATORYSpecimen (Source)Anatomical Location / LateralityCollection Method / VolumeCollection TimeReceived TimeUrineUrine / Qnrpvup3906/07/2025 4:21 PM EDT1 5:17 PM EDT Narrative Authorizing ProviderResult TypeResult StatusMohamed Luciana LEWIS ORDERABLES Final ResultPerforming OrganizationAddressCity/State/ZIP CodePhone Number [facility] [address] [place] [address], * (ABNORMAL) Microalbumin - Albumin: Creatinine Urine Ratio (06/07/2025 4:21 PM EDT)ComponentValueRef RangeTest MethodAnalysis TimePerformed AtPathologist SignatureURINE CREATININE,OUX160.24mg/dL06/07/2025 6:31 PM [facility] LABORATORYMALB/CREAT EATLR804.9(H)0.0 - 30.0 mg/g1 6:31 PM [facility] LABORATORYMICROALBUMIN, URINE74.4(H)0.0 - 1.9 mg/dL06/07/2025 6:31 PM [facility] LABORATORYSpecimen (Source)Anatomical Location / LateralityCollection Method / VolumeCollection TimeReceived TimeUrineUrine / Vstnxoh2806/07/2025 4:21 PM EDT1 5:17 PM EDT Narrative Authorizing ProviderResult TypeResult StatusMohamed Luciana LEWIS ORDERABLES Final ResultPerforming OrganizationAddressCity/State/ZIP CodePhone Number [facility] [address] [place] [address], [place] [phone] * Sodium, urine, random (06/07/2025 4:21 PM EDT)ComponentValueRef RangeTest MethodAnalysis TimePerformed AtPathologist SignatureURINE SODIUM,NUYFVP93 mmol/L1 6:31 PM [facility]ORATORYSpecimen (Source)Anatomical Location / LateralityCollection Method / VolumeCollection TimeReceived TimeUrineUrine / Okowhlq4806/07/2025 4:21 PM EDT1 5:17 PM EDT Narrative Authorizing ProviderResult TypeResult StatusMohamed Luciana LEWIS ORDERABLES Final ResultPerforming OrganizationAddressCity/State/ZIP CodePhone Number [facility] [address] [place] [address], * Levetiracetam, S (06/07/2025 12:27 PM EDT)ComponentValueRef RangeTest Method Analysis TimePerformed AtPathologist SignatureLEVETIRACETAM, S26.510.0 - 40.0 mcg/mL06/08/2025 11:54 AM [facility]ORATORIESComment: ADDITIONAL INFORMATION This test was developed and its performance characteristics determined by [facility] in a manner consistent with CLIA requirements. This test has not been cleared or approved by the U.S. Food and Drug Administration. Test Performed by: [facility] [address] [place] [address] Tag Stringer: Anastasiya Alegria Ph.D.; CLIA# [id number] Specimen (Source)Anatomical Location / LateralityCollection Method / Volume Collection TimeReceived TimeBloodVenous blood / UnknownVenipuncture / Unknown 06/07/2025 12:27 PM EDT1 12:38 PM EDT Narrative Authorizing ProviderResult TypeResult StatusAhmed Luciana BARNES BLOOD ORDERABLESFinal ResultPerforming OrganizationAddressCity/State/ZIP CodePhone Number [facility] [address] [place] [address], * HIV 1&2 AB/AG Screen (P24 AG) (06/07/2025 12:27 PM EDT)ComponentValueRef Range Test MethodAnalysis TimePerformed AtPathologist SignatureHIV 1 AND 2 AB/AG FIMUDSBii-LkqztqfvJau-Xiodqcgv70/16/2025 5:19 PM [facility]ORATORYSpecimen (Source)Anatomical Location / LateralityCollection Method / VolumeCollection TimeReceived TimeBloodVenous blood / UnknownVenipuncture / Hwcvqgr2206/07/2025 12:27 PM EDT1 12:38 PM EDT Narrative [facility] - 06/07/2025 5:19 PM EDT This [...] results or diagnoses. Authorizing ProviderResult TypeResult StatusMohamed Luciana PagaTuAlquiler BLOOD ORDERABLESFinal ResultPerforming OrganizationAddressCity/State/ZIP CodePhone Number [facility] [address] [place] [address], * (ABNORMAL) Iron and TIBC (06/07/2025 12:27 PM EDT)ComponentValueRef RangeTest MethodAnalysis TimePerformed AtPathologist LofxqronwLHBW5769 - 212 ug/dL 06/07/2025 2:44 PM [facility] JYTTWHPBSSAAIXSKURQRX708722 - 336 mg/dL06/07/2025 2:44 PM [facility] LABORATORYIRON BINDING 761418 - 425 ug/dL06/07/2025 2:44 PM [facility] IRON VSJCYPUFTQ38(L)20 - 50 % FULXUWKGHS12/16/2025 2:44 PM [facility]ORATORYSpecimen (Source)Anatomical Location / LateralityCollection Method / VolumeCollection TimeReceived TimeBloodVenous blood / Unknown Venipuncture / Hzignao9906/07/2025 12:27 PM EDT1 12:38 PM EDT Narrative Authorizing ProviderResult TypeResult StatusMohamed Luciana RashidAffinity Edge BLOOD ORDERABLESFinal ResultPerforming OrganizationAddressCity/State/ZIP CodePhone Number [facility] [address] [place] [address], * DNA double-stranded (dsDNA) Abs (06/07/2025 12:27 PM EDT)ComponentValueRef RangeTest MethodAnalysis TimePerformed AtPathologist SignatureDouble Stranded DNA Ab<1<5 IU/ML06/07/2025 6:34 PM [facility] Specimen (Source)Anatomical Location / LateralityCollection Method / Volume Collection TimeReceived TimeBloodVenous blood / UnknownVenipuncture / Unknown 06/07/2025 12:27 PM EDT1 12:38 PM EDT Narrative [facility] - 06/07/2025 6:34 PM EDT Interpretation < 5 Negative 5 - 9 Indeterminate > 9 Positive Authorizing ProviderResult TypeResult StatusMohamed Luciana Ortiz UTLAB BLOOD ORDERABLESFinal ResultPerforming OrganizationAddressCity/State/ZIP CodePhone Number [facility] [address] [place] [address], * Beta-2 glycoprotein antibodies (06/07/2025 12:27 PM EDT)ComponentValueRef RangeTest MethodAnalysis TimePerformed AtPathologist SignatureBeta-2 Glycoproteins GPI IgG<1.40.0 - 19.9 u/mL06/07/2025 6:36 PM [facility] LABORATORYBeta-2 Glycoproteins GPI IgM<1.50.0 - 19.9 u/mL06/07/2025 6:36 PM [facility] LABORATORYBeta-2 Glycoproteins GPI IgA<2.0 0.0 - 19.9 u/mL06/07/2025 6:36 PM [facility] Specimen (Source)Anatomical Location / LateralityCollection Method / Volume Collection TimeReceived TimeBloodVenous blood / UnknownVenipuncture / Unknown 06/07/2025 12:27 PM EDT1 12:38 PM EDT Narrative Authorizing ProviderResult TypeResult StatusOlubdarline Alex [facility] BLOOD ORDERABLESFinal ResultPerforming OrganizationAddressCity/State/ZIP CodePhone Number [facility] [address] [place] [address], * Rheumatoid factor (06/07/2025 12:27 PM EDT)ComponentValueRef RangeTest Method Analysis TimePerformed AtPathologist SignatureRHEUMATOID FACTOR<10<20 IU/mL 06/07/2025 3:08 PM [facility]ORATORYSpecimen (Source) Anatomical Location / LateralityCollection Method / VolumeCollection Time Received TimeBloodVenous blood / UnknownVenipuncture / Dpmuppd5606/07/2025 12:27 PM EDT1 12:38 PM EDT Narrative Authorizing ProviderResult TypeResult StatusMohamed A RachidAffinity Edge BLOOD ORDERABLESFinal ResultPerforming OrganizationAddressCity/State/ZIP CodePhone Number [facility] [address] [place] [address], * LUIZA Screen w/ Reflex (06/07/2025 12:27 PM EDT)ComponentValueRef RangeTest MethodAnalysis TimePerformed AtPathologist SignatureANA SCREEN W/REFLEX DrewafghOgolgegb79/16/2025 6:34 PM [facility] Specimen (Source)Anatomical Location / LateralityCollection Method / Volume Collection TimeReceived TimeBloodVenous blood / UnknownVenipuncture / Unknown 06/07/2025 12:27 PM EDT1 12:38 PM EDT Narrative [facility] - 06/07/2025 6:34 PM EDT Testing performed using multiplex flow immunoassay. Eleven difference antigens associated with systemic autoimmunie diseases (dsDNA, Sm, Sm/BUILDING APPRAISER, BUILDING APPRAISER, Chromatin, SSA, SSB, Katarina-1, Sc170, Ribo P, Centromere B) are included in this sreening tests. Authorizing ProviderResult TypeResult StatusMohamed A RachidAffinity Edge BLOOD ORDERABLESFinal ResultPerforming OrganizationAddressty/State/ZIP CodePhone Number [facility] [address] [place] [address], * Folate (06/07/2025 12:27 PM EDT)ComponentValueRef RangeTest MethodAnalysis TimePerformed AtPathologist SignatureFOLIC ACID11.1>5.8 ng/mL06/07/2025 3:28 PM [facility]YSpecimen (Source)Anatomical Location / LateralityCollection Method / VolumeCollection TimeReceived TimeBloodVenous blood / UnknownVenipuncture / Cujaybb6406/07/2025 12:27 PM EDT1 12:38 PM EDT Narrative Authorizing ProviderResult TypeResult StatusMohamed A Angel ZULUAGACritique^It BLOOD ORDERABLESFinal ResultPerforming OrganizationAddressCity/State/ZIP CodePhone Number [facility] [address] [place] [address], * Ferritin (06/07/2025 12:27 PM EDT)ComponentValueRef RangeTest MethodAnalysis TimePerformed AtPathologist JxzzqosncTJRXBONO59909 - 336 ng/mL06/07/2025 3:25 PM [facility]YSpecimen (Source)Anatomical Location / LateralityCollection Method / VolumeCollection TimeReceived TimeBloodVenous blood / UnknownVenipuncture / Dywrtsj0106/07/2025 12:27 PM EDT1 12:38 PM EDT Narrative Authorizing ProviderResult TypeResult StatusMohamed Luciana Ortiz MDCritique^It BLOOD ORDERABLESFinal ResultPerforming OrganizationAddressCity/State/ZIP CodePhone Number [facility] [address] [place] [address], * Vitamin B12 (06/07/2025 12:27 PM EDT)ComponentValueRef RangeTest Method Analysis TimePerformed AtPathologist SignatureVITAMIN [id number] - 914 pg/mL 06/07/2025 3:29 PM [facility]YSpecimen (Source) Anatomical Location / LateralityCollection Method / VolumeCollection Time Received TimeBloodVenous blood / UnknownVenipuncture / Vdegowe7406/07/2025 12:27 PM EDT1 12:38 PM EDT Narrative Authorizing ProviderResult TypeResult StatusMohamed A Angel Q.branch BLOOD ORDERABLESFinal ResultPerforming OrganizationAddressCity/State/ZIP CodePhone Number [facility] [address] [place] [address], * Resp Pathogens Panel/SARS CoV-2 (06/07/2025 11:11 AM EDT)ComponentValueRef RangeTest MethodAnalysis TimePerformed AtPathologist SignatureSARS COV 2 BY PCRNot DetectedNot Omngdiyj61/16/2025 12:25 PM [facility]ORATORYADENOVIRUSNot DetectedNot Rhclfhem64/16/2025 12:25 PM [facility] LABORATORYCORONAVIRUS 229ENot DetectedNot Upalfvie60/16/2025 12:25 PM [facility] LABORATORYCORONAVIRUS HWF7Wbn DetectedNot Wjofqmpy11/16/2025 12:25 PM [facility] LABORATORYCORONAVIRUS KB79Iqq DetectedNot Aglvpfdb99/16/2025 12:25 PM [facility] LABORATORYCORONAVIRUS ID13Qye DetectedNot Fdalpuyo02/16/2025 12:25 PM [facility] LABORATORYHUMAN METAPNEUVIRUSNot DetectedNot Detected 06/07/2025 12:25 PM [facility]ORATORYRHINO/ENTEROVIRUSNot DetectedNot Xyrmhkak67/16/2025 12:25 PM [facility] INFLUENZA ANot DetectedNot Amzscgbm24/16/2025 12:25 PM [facility] LABORATORYINFLUENZA BNot DetectedNot Uneypnuh04/16/2025 12:25 PM [facility] LABORATORYPARAINFLUENZA 1Not DetectedNot Detected 06/07/2025 12:25 PM [facility]ATORYPARSIERRA VISTA REGIONAL HEALTH CENTERFLUCLEVELAND CLINIC MERCY HOSPITALA 2Not DetectedNot Lunldxpp38/16/2025 12:25 PM [facility] PARAINFLUENZA 3Not DetectedNot Hsrwywcu38/16/2025 12:25 PM [facility] LABORATORYPARAINFLUENZA 4Not DetectedNot Ljowieqq67/16/2025 12:25 PM [facility]ATORYRESP SYNCYTIAL VIRUSNot DetectedNot Wyzzdqsv59/16/2025 12:25 PM [facility] LABORATORYBORD PARAPERTUSSISNot DetectedNot Kgmovsll41/16/2025 12:25 PM [facility] LABORATORYBORDETELLA PERTUSSISNot DetectedNot Yzkjflgv02/16/2025 12:25 PM [facility] LABORATORYCHLAM.PNEUMONIAENot DetectedNot Caqjlszj91/16/2025 12:25 PM [facility]ATORYMYCOPLASMA PNEUMONIAENot DetectedNot Mdpxfhef39/16/2025 12:25 PM [facility]ORATORYSpecimen (Source)Anatomical Location / LateralityCollection Method / VolumeCollection TimeReceived TimeSwabNasopharyngeal structure / Izhcsfc2606/07/2025 11:11 AM EDT1 11:24 AM EDT [facility] - 06/07/2025 12:25 PM EDT [...] infection. Authorizing ProviderResult TypeResult StatusAhmed A Adolph Theeb MDMICROBIOLOGY - GENERAL ORDERABLESFinal ResultPerforming OrganizationAddressCity/State/ZIP Code Phone Number [facility] [address] [place] [address], * MR brain with and without contrast [...] on 06/07/2025 12:03 AM Authorizing ProviderResult TypeResult StatusF[facility] Bang MDFreeman MRI ORDERABLES Final Result * EEG VIDEO MONITORING (06/06/2025 10:38 AM EDT)Specimen (Source)Anatomical Location / LateralityCollection Method / VolumeCollection TimeReceived Time Narrative MANUALLY TRANSCRIBED RESULTS - 06/06/2025 1:02 PM EDT Images from the original result were not included. ?? [place] [facility] Video/EEG Monitoring REPORT EEG Service Date(s): 06/06/25 from 06:30 until 10:35 Date of Report: 06/06/25 History: Gianni Babin is 70 y.o. 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 Centrally active medications: ??Keppra Procedure: This video/EEG monitoring was acquired with electrodes placed according to the Jetfrhhwkfnbv49-19 electrode placement system,using collodion. The EEG was [...] the referring provider. Jennifer German M.D., Ph.D. [employer] [place] [facility] Authorizing ProviderResult TypeResult StatusF[facility] Bang MDNEUROLOGY ORDERABLES Final ResultPerforming OrganizationAddressCity/State/ZIP CodePhone Number MANUALLY TRANSCRIBED RESULTS * EEG VIDEO MONITORING IN PROGRESS (06/06/2025 6:00 AM EDT)Specimen (Source) Anatomical Location / LateralityCollection Method / VolumeCollection Time Received Time Narrative MANUALLY TRANSCRIBED RESULTS - 06/06/2025 9:20 AM EDT Images from the original result were not included. ?? [facility] Video/EEG Monitoring REPORT EEG Service Date(s): 06/05/25 @ 06:30 until @ 06:30 Date of Report: 06/06/25 History: Gianni Babin is 70 y.o. 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 Centrally active medications: ??Keppra Procedure: This video/EEG monitoring was acquired with electrodes placed according to the Lwwwswcgetdbn96-61 electrode placement system,using collodion. The EEG was [...] the referring provider. Jennifer German M.D., Ph.D. [facility] [place] [facility] Background with right temporal slowing Authorizing ProviderResult TypeResult StatusFapipe Cuenca MDNEUROLOGY ORDERABLES Final ResultPerforming OrganizationAddressCity/State/ZIP CodePhone Number MANUALLY TRANSCRIBED RESULTS * EEG VIDEO MONITORING IN PROGRESS (06/05/2025 6:00 AM EDT)Specimen (Source) Anatomical Location / LateralityCollection Method / VolumeCollection Time Received Time Narrative MANUALLY TRANSCRIBED RESULTS - 06/05/2025 10:50 AM EDT Images from the original result were not included. ?? [place] [facility] Video/EEG Monitoring REPORT EEG Service Date(s): 06/05/25 form 04:27 until 06:30 Date of Report: 06/05/25 History: Gianni Babin is 70 y.o. 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 Centrally active medications: ??Keppra Procedure: This video/EEG monitoring was acquired with electrodes placed according to the Anllvmnlngubs58-16 electrode placement system,using collodion. The EEG was [...] seizures were recorded. Jennifer German M.D., Ph.D. [employer] [place] [facility] Authorizing ProviderResult TypeResult StatusFapipe Resendizghar MDNEUROLOGY ORDERABLES Final ResultPerforming OrganizationAddressCity/State/ZIP CodePhone Number MANUALLY TRANSCRIBED RESULTS * EEG (06/05/2025 4:24 AM EDT)Specimen (Source)Anatomical Location / Laterality Collection Method / VolumeCollection TimeReceived Time Narrative MANUALLY TRANSCRIBED RESULTS - 06/05/2025 10:46 AM EDT Images from the original result were not included. ?? [place] [facility] EEG REPORT EEG Service Date: 06/05/25 Date of Report: 06/05/25 History: Gianni Babin is a 70 y.o. male with altered mental status and right intraparenchymal hemorrhage who is undergoing EEG to evaluate for seizures. Centrally active medications: ??Keppra. Procedure: This EEG was acquired with electrodes placed according to the Lvqjvzttnfmcg85-68 electrode placement system. The EEG was acquired [...] intermittent seizures. ?? Jennifer German M.D., Ph.D. [employer] [place] [facility] Background Authorizing ProviderResult TypeResult Janet Cuenca MDNEUROLOGY ORDERABLES Final ResultPerforming OrganizationAddressCity/State/ZIP CodePhone Number MANUALLY TRANSCRIBED RESULTS * (ABNORMAL) Lipid profile (06/05/2025 3:10 AM EDT)ComponentValueRef RangeTest MethodAnalysis TimePerformed AtPathologist SqwjpzwdrPTLWXOANINV040579 - 200 mg/dL06/05/2025 4:38 AM [facility] VRDTDHEMHUPJQQZYIOHYNI043 (H)27 - 150 mg/dL06/05/2025 4:38 AM [facility] LABORATORYHDL CFBEQDLXKAD45(L)>39 mg/dL06/05/2025 4:38 AM [facility] LABORATORYComment: HDL <40 mg/dL - High Risk HDL > or = 40mg/dL- Desirable HDL >60 mg/dL - Negative Risk LDL (CALC)77<130 mg/dL06/05/2025 4:38 AM [facility] Comment: LDL <100 mg/dL - Desirable LDL >160 mg/dL - High Risk CHOLESTEROL:HDL5.01.0 - 5.010/ 4:38 AM [facility] LABORATORYVERY LOW PZJUOPYLWBA96(H)0 - 30 mg/dL06/05/2025 4:38 AM [facility] LABORATORYSpecimen (Source)Anatomical Location / Laterality Collection Method / VolumeCollection TimeReceived TimeBloodVenous blood / UnknownVenipuncture / Mbeazww9006/05/2025 3:10 AM EDT1 4:10 AM EDT Narrative Authorizing ProviderResult TypeResult Janet BARNES BLOOD ORDERABLES Final ResultPerforming OrganizationAddressCity/State/ZIP CodePhone Number [facility] [address] [place] [address], [place] [phone] * Type and screen(includes indirect rita) (06/04/2025 7:58 PM EDT) Only the most recent of2 resultswithin the time period is included. ComponentValueRef RangeTest MethodAnalysis TimePerformed AtPathologist Signature ABOO1 9:01 PM [facility] HKBYSBDXRJAVAdtogqxw90/13/2025 9:01 PM [facility] LABORATORYAntibody KkjfnoCcsadnke21/13/2025 9:01 PM [facility] LABORATORYSpecimen (Source)Anatomical Location / LateralityCollection Method / VolumeCollection TimeReceived TimeBloodVenous blood / Hqrrobv9606/04/2025 7:58 PM EDT1 8:13 PM EDT Narrative Authorizing ProviderResult TypeResult StatusManal W [place] [employer] BANK TEST ORDERABLESEdited Result - FinalPerforming OrganizationAddressCity/State/ZIP Code Phone Number [facility] [address] [place] [address], [facility] [address] [place] [address], [place] * ABO Rh Repeat (06/04/2025 6:00 PM EDT) Only the most recent of2 resultswithin the time period is included. ComponentValueRef RangeTest MethodAnalysis TimePerformed AtPathologist Signature ABOO1 6:37 PM [facility] TBSKTVDKAGDNIudqaxnv82/13/2025 6:37 PM [facility] LABORATORYSpecimen (Source)Anatomical Location / Laterality Collection Method / VolumeCollection TimeReceived Time06/04/2025 6:00 PM EDT 06/04/2025 6:24 PM EDT Narrative Authorizing ProviderResult TypeResult StatusManal W [place] [employer] BANK TEST ORDERABLESFinal ResultPerforming OrganizationAddressCity/State/ZIP CodePhone Number [facility] [address] [place] [address], [place] * Bethea Top On Ice (06/04/2025 6:00 PM EDT)ComponentValueRef RangeTest Method Analysis TimePerformed AtPathologist SignatureExtra TubeAuto Resulted 06/04/2025 7:01 PM [facility] LABORATORYSpecimen (Source) Anatomical Location / LateralityCollection Method / VolumeCollection Time Received TimeBloodVenous blood / Ljasxdl0706/04/2025 6:00 PM EDT1 6:14 PM EDT Narrative Authorizing ProviderResult TypeResult StatusManal W Luis DOLAB BLOOD ORDERABLES Final ResultPerforming OrganizationAddressCity/State/ZIP CodePhone Number [facility] [address] [place] [address], [place] [phone] * Lavender Top (06/04/2025 6:00 PM EDT)ComponentValueRef RangeTest Method Analysis TimePerformed AtPathologist SignatureExtra TubeAuto Resulted 06/04/2025 7:01 PM [facility] [facility]pecimen (Source) Anatomical Location / LateralityCollection Method / VolumeCollection Time Received TimeBloodVenous blood / Iremrgr6906/04/2025 6:00 PM EDT1 6:14 PM EDT Narrative Authorizing ProviderResult TypeResult StatusManal W Luis DOLAB BLOOD ORDERABLES Final ResultPerforming OrganizationAddressCity/State/ZIP CodePhone Number [facility] [address] [place] [address], [place] [phone] * PST TOP (06/04/2025 6:00 PM EDT)ComponentValueRef RangeTest MethodAnalysis TimePerformed AtPathologist SignatureExtra TubeAuto Qgzugmfx03/13/2025 7:01 PM [facility] LABORATORYSpecimen (Source)Anatomical Location / LateralityCollection Method / VolumeCollection TimeReceived TimeBloodVenous blood / Riycqfp1306/04/2025 6:00 PM EDT1 6:14 PM EDT Narrative Authorizing ProviderResult TypeResult StatusManal W Luis DOLAB BLOOD ORDERABLES Final ResultPerforming OrganizationAddressCity/State/ZIP CodePhone Number [facility] [address] [place] [address], [place] [phone] * Light Blue Top (06/04/2025 6:00 PM EDT)ComponentValueRef RangeTest Method Analysis TimePerformed AtPathologist SignatureExtra TubeAuto Resulted 06/04/2025 7:01 PM [facility] (Source) Anatomical Location / LateralityCollection Method / VolumeCollection Time Received TimeBloodVenous blood / Vveosto1806/04/2025 6:00 PM EDT1 6:14 PM EDT Narrative Authorizing ProviderResult TypeResult StatusManal W Luis DOLAB BLOOD ORDERABLES Final ResultPerforming OrganizationAddressCity/State/ZIP CodePhone Number [facility] [address] [place] [address], [place] [phone] * CT abdomen and pelvis with contrast (06/04/2025 3:35 PM EDT)Anatomical Region LateralityModalityBody, Abdomen, Body CoveraN/AComputed TomographySpecimen (Source)Anatomical Location / LateralityCollection Method / VolumeCollection TimeReceived Time06/04/2025 3:38 PM EDT Narrative 06/04/2025 3:49 PM EDT History: . fall Exam/Technique: ??Contiguous axial images are obtained of the abdomen and pelvis with 100 cc omnipaque 300 intravenous contrast. ??Coronal and sagittal reconstructions were performed and reviewed. Automatic dose exposure reduction technique utilized. Comparison: ??CT chest. Findings: ?? LUNGS AND CARDIOMEDIASTINAL STRUCTURES: no abnormality. LIVER: ??is normal. SPLEEN: ??is normal. GALLBLADDER: normal. BILIARY TREE:Normal PANCREAS: normal. [...] TERMINAL ILEUM: normal. COLON: Colonic diverticulosis with fecal loading without diverticulitis. APPENDIX: normal. HERNIAL [...] Right hip degenerative changes noted. . IMPRESSION: ?? Advanced degenerative changes with chronic artifact in [...] Bradford Marroquin MD on 06/04/2025 3:49 PM Procedure Note Bradford Marroquin MD - 06/04/2025 History: . fall Exam/Technique: Contiguous axial images are obtained of the abdomen andpelvis with 100 cc omnipaque 300 intravenous contrast. Coronal andsagittal reconstructions were performed and reviewed. Automatic doseexposure reduction technique utilized. Comparison: CT chest. Findings: LUNGS AND CARDIOMEDIASTINAL STRUCTURES: no abnormality. LIVER: is normal. SPLEEN: is normal. GALLBLADDER: normal. BILIARY TREE:Normal PANCREAS: normal. ADRENAL GLANDS are normal. RIGHT KIDNEY: Cortical scarring with significant caliectasis andhydronephrosis. The right ureter is dilated down to the urinary bladder.Cortical scarring. LEFT KIDNEY: Significant hydronephrosis and caliectasis. No discretecortical scarring. The left ureter is not opacified and demonstrates thick wall withdilatation. 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 There is extensive disease also traction intothe internal and external vessels. PORTAL VEIN: Patent IVC is normal. There is no paraaortic or paracaval adenopathy. FREE AIR: Absent SIGNIFICANT FREE FLUID:absent MESENTERY: Normal BODY WALL: Normal SMALL BOWEL AND TERMINAL ILEUM: normal. COLON: Colonic diverticulosis with fecal loading without diverticulitis. APPENDIX: normal. HERNIAL ORIFICES:Fat-containing inguinal hernias.. PELVIC ORGANS: Prostate gland with dystrophic calcification. Significant degenerative labrum with thick wall and lobulated outline which may be dueto chronic outlet obstruction, inflammation and neoplastic disease cannotbe completely excluded. BONES AND SOFT TISSUES: Osteopenia degenerative changes. There is no lossof vertebral body height. The left hip arthroplasty partially visualized with no acuteabnormality. Right hip degenerative changes noted. . 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 Significant hydronephrosis and caliectasis and hydroureter bilaterallywith a thick walled urinary bladder likely related to obstruction orchronic inflammation and the enlarged prostate gland. Reflux may be noted bilaterally. All CT scans at this facility use dose modulation, iterativereconstruction, and/or weight based dosing when appropriate to reduceradiation dose to as low as reasonably achievable. Finalized by Bradford Marroquin MD on 06/04/2025 3:49 PM Authorizing ProviderResult TypeResult StatusJames Vaughn MDFreeman CT ORDERABLES Final Result * CT chest with contrast (06/04/2025 3:34 PM EDT)Anatomical RegionLaterality ModalityBody, Lung, Chest, Body CoveraN/AComputed TomographySpecimen (Source) Anatomical Location / LateralityCollection Method / VolumeCollection Time Received Time06/04/2025 3:35 PM EDT Narrative 06/04/2025 3:[address] CHEST W CONT 06/04/2025 3:18 PM INDICATION: Fall. Pain. COMPARISON: None TECHNIQUE: Contrast-enhanced CT images of the chest were obtained. ??All CT scans at this facility use [...] Eron Walton MD on 06/04/2025 3:42 PM Procedure Note Eron Walton MD - 06/04/2025 CT CHEST W CONT 06/04/2025 3:18 PM INDICATION: Fall. Pain. COMPARISON: None TECHNIQUE: Contrast-enhanced CT images of the chest were obtained. All CTscans at this facility use dose modulation, iterative reconstruction,and/or weight based dosing when appropriate to reduce radiation dose to aslow as reasonably achievable. FINDINGS: Evaluation compromised by arm positioning at time of scanning. Thyroid gland is unremarkable. No supraclavicular adenopathy. Ascending thoracic aorta measures 4.4 cm in diameter. Conventionalbranching of the aortic arch. Heart size is within normal limits. No pericardial effusion. Coronaryartery calcifications are present. Main pulmonary trunk size is withinnormal limits. No enlarged mediastinal or hilar lymph nodes by sizecriteria. Trachea shows no acute abnormality. Secretions noted within the midthoracic trachea. Mild nonspecific bilateral peribronchial wallthickening. No pleural effusion. No pneumothorax. Dependent atelectasis. No focal consolidation. Small right posterior diaphragmatic hernia containing fat. Chest wall soft tissue show no acute abnormality. No acute or aggressiveosseous lesion. Degenerative changes of the bilateral shoulders. Remoteleft-sided rib fractures. Multilevel degenerative changes of the thoracicspine with slightly exaggerated thoracic kyphosis. CT abdomen was performed concurrently but reported separately. IMPRESSION: No acute posttraumatic findings within the chest. Finalized by Eron Walton MD on 06/04/2025 3:42 PM Authorizing ProviderResult TypeResult StatusJames Vaughn MDG CT ORDERABLES Final Result * CT cervical reconstruction (06/04/2025 2:59 PM EDT)Anatomical RegionLaterality ModalityMSK, Neuro, Spine, C-spine, Spine CoveraComputed TomographySpecimen (Source)Anatomical Location / LateralityCollection Method / VolumeCollection TimeReceived Time06/04/2025 3:00 PM EDT Narrative 06/04/2025 3:02 PM EDT CLINICAL INFORMATION: Cervical spine pain. Neck pain PROCEDURE: Routine cervical spine protocol CT was obtained without intravenous contrast. Sagittal and coronal reformatted images were obtained from the axial data. Automated exposure control was utilized. ??All CT scans at this facility dose modulation, [...] consider flex-ex radiographs or MRI. IMPRESSION: * ??No acute osseous abnormalities in the cervical spine. Finalized by Stan Overton MD on 06/04/2025 3:02 PM Procedure Note Stan Overton MD - 06/04/2025 CLINICAL INFORMATION: Cervical spine pain. Neck pain PROCEDURE: Routine cervical spine protocol CT was obtained withoutintravenous contrast. Sagittal and coronal reformatted images wereobtained from the axial data. Automated exposure control was utilized.All CT scans at this facility dose modulation, iterative reconstruction,and/or weight based dosing when appropriate to reduce radiation dose to as low as reasonably achievable. FINDINGS: Satisfactory alignment of the cervical spine. The vertebral body heights are preserved. No fracture. No malalignment.Mild multifocal degenerative changes with endplate sclerosis andosteophyte formation. The atlantoaxial space is intact with degenerative sclerosis. Posterior elements are intact with facet hypertrophy. No acute findings inthe soft tissues. Please note, ligamentous injury is not well evaluated on a neutralposition CT. If concern for ligamentous injury consider flex-exradiographs or MRI. IMPRESSION: * No acute osseous abnormalities in the cervical spine. Finalized by Stan Overton MD on 06/04/2025 3:02 PM Authorizing ProviderResult TypeResult Roland WASSERMAN CT ORDERABLES Final Result * Fibrinogen (06/04/2025 2:31 PM EDT)ComponentValueRef RangeTest MethodAnalysis TimePerformed AtPathologist [id number] - 480 mg/dL06/04/2025 10:00 PM EDTTCLEVELAND [facility]YSpecimen (Source)Anatomical Location / LateralityCollection Method / VolumeCollection TimeReceived Time BloodVenous blood / UnknownVenipuncture / Pxmglxx3006/04/2025 2:31 PM EDT 06/04/2025 2:44 PM EDT Narrative Authorizing ProviderResult TypeResult Roland Vaughn MDLAB BLOOD ORDERABLES Final ResultPerforming OrganizationAddressCity/State/ZIP CodePhone Number [facility] [address] [place] [address], * CT angiogram carotid (06/04/2025 2:20 PM EDT)Anatomical RegionLaterality ModalityNeuro, Neck, Vascular, Neuro CoveraN/AComputed TomographySpecimen (Source)Anatomical Location / LateralityCollection Method / VolumeCollection TimeReceived Time06/04/2025 2:23 PM EDT Narrative 06/04/2025 2:26 PM EDT CLINICAL INFORMATION: Stroke. Neurologic deficit. COMPARISON: None PROCEDURE: CT angiogram of the neck with IV contrast. ??Sagittal and coronal reformatted images with 3-D Maximum intensity projection reconstructions constructed under concurrent physician supervision on a independent workstation for evaluation of carotid and vertebral arteries. ??Automated exposure control was utilized. ??The [place] Symptomatic carotid Endarterectomy Trial (NASCET) methodfor calculating the degree of stenosis was utilized for stenosis measurements. 3-D reformatted images confirm the source data findings. stenosis is calculated as compared to the distal lumen of the ICA (NASCET). ??All CT scans at this facility dose modulation, iterative reconstruction, and/or weight based dosing when appropriate to reduce radiation dose to as low as reasonably achievable. FINDINGS: No acute findings at the partially visualized aortic arch. Three-vessel branching pattern. Subclavian arteries are patent. The [...] findings in the soft tissues. IMPRESSION: 1. ??No acute findings. No significant carotid or vertebral artery stenosis. 2. ??Mild atherosclerotic calcification at the bilateral carotid bifurcations and proximal internalcarotid arteries with less than 50% stenosis. Finalized by Stan Overton MD on 06/04/2025 2:26 PM Procedure Note Stan Overton MD - 06/04/2025 CLINICAL INFORMATION: Stroke. Neurologic deficit. COMPARISON: None PROCEDURE: CT angiogram of the neck with IV contrast. Sagittal andcoronal reformatted images with 3-D Maximum intensity projectionreconstructions constructed under concurrent physician supervision on [facility] workstation for evaluation of carotid and vertebral arteries.Automated exposure control was utilized. The [place] Symptomatic carotidEndarterectomy Trial (NASCET) method for calculating the degree ofstenosis was utilized for stenosis measurements. 3-D reformatted images confirm the source data findings. stenosis is calculated as compared to the distal lumen of the ICA(NASCET). All CT scans at this facility dose modulation, iterativereconstruction, and/or weight based dosing when appropriate to reduceradiation dose to as low as reasonably achievable. FINDINGS: No acute findings at the partially visualized aortic arch. Three-vesselbranching pattern. Subclavian arteries are patent. The vertebral arteries originate from the subclavian arteries and arenormal in course and caliber. The common carotid arteries are patent. There is mild scatteredatherosclerotic calcification. There is atherosclerotic calcification at the proximal bilateral internalcarotid arteries with less than 50% stenosis. The internal carotidarteries are otherwise normal in course and caliber. Partially visualizing apices are unremarkable. No acute findings in the soft tissues. IMPRESSION: 1. No acute findings. No significant carotid or vertebral arterystenosis. 2. Mild atherosclerotic calcification at the bilateral carotidbifurcations and proximal internal carotid arteries with less than 50%stenosis. Finalized by Stan Overton MD on 06/04/2025 2:26 PM Authorizing ProviderResult TypeResult Roland WASSERMAN CT ORDERABLES Final Result * CT angiogram head (06/04/2025 2:19 PM EDT)Anatomical RegionLateralityModality Head, Neuro, Vascular, Head and Neck, Neuro CoveraN/AComputed Tomography Specimen (Source)Anatomical Location / LateralityCollection Method / Volume Collection TimeReceived Time06/04/2025 2:24 PM EDT Narrative 06/04/2025 2:26 PM EDT CLINICAL INFORMATION: Altered mental status TECHNIQUE: CT angiogram of the head was performed following intravenous administration of nonionic intravenouscontrast. 3-D maximum intensity projection images generated and reviewed under concurrent physician supervision. Automated exposure control was utilized. Arterial blood flow was measured to assist the stroke clinical team in the diagnosis of large vessel occlusion in patients undergoing screening for acute ischemic stroke using Rapid AI software when clinically indicated. ?? All CT scans at this facility use dose modulation, iterative reconstruction, and/or weight based dosing when appropriate to reduce radiation dose to as low as reasonably achievable. COMPARISON: No relevant prior studies available. FINDINGS: Evaluation significantly limited due to patient motion. The internal carotid arteries are patent throughout their course in the carotid canal and cavernoussegment with moderate atherosclerotic calcification. Evaluation of the anterior cerebral arteries is nondiagnostic due to patient motion. The proximal MCAs are patent, evaluation beyond this is nondiagnostic due to patient motion. The V4 segment of the vertebral arteries is patent, the basilar artery is patent. The P1 segment ofthe posterior cerebral arteries is patent however evaluation beyond this is nondiagnostic. IMPRESSION: * ??Partially nondiagnostic evaluation due to patient motion as described above. Moderate atherosclerotic calcification of the internal carotid arteries within the carotid canal and cavernous segment. Finalized by Amee Vargas MD on 06/04/2025 2:26 PM Procedure Note Amee Vargas MD - 06/04/2025 CLINICAL INFORMATION: Altered mental status TECHNIQUE: CT angiogram of the head was performed following intravenousadministration of nonionic intravenous contrast. 3-D maximum intensity projection images generated and reviewed underconcurrent physician supervision. Automated exposure control wasutilized. Arterial blood flow was measured to assist the stroke clinical team in the diagnosis of large vessel occlusion in patients undergoing screening foracute ischemic stroke using Rapid AI software when clinically indicated. All CT scans at this facility use dose modulation, iterativereconstruction, and/or weight based dosing when appropriate to reduceradiation dose to as low as reasonably achievable. COMPARISON: No relevant prior studies available. FINDINGS: Evaluation significantly limited due to patient motion. The internal carotid arteries are patent throughout their course in thecarotid canal and cavernous segment with moderate atheroscleroticcalcification. Evaluation of the anterior cerebral arteries isnondiagnostic due to patient motion. The proximal MCAs are patent,evaluation beyond this is nondiagnostic due to patient motion. The V4 segment of the vertebral arteries is patent, the basilar artery ispatent. The P1 segment of the posterior cerebral arteries is patenthowever evaluation beyond this is nondiagnostic. IMPRESSION: * Partially nondiagnostic evaluation due to patient motion as describedabove. Moderate atherosclerotic calcification of the internal carotidarteries within the carotid canal and cavernous segment. Finalized by Amee Vargas MD on 06/04/2025 2:26 PM Authorizing ProviderResult TypeResult StatusJames Vaughn MDFreeman CT ORDERABLES Final Result * (ABNORMAL) Blood gas, venous (06/04/2025 2:19 PM EDT)ComponentValueRef Range Test MethodAnalysis TimePerformed AtPathologist SignatureSample typeVENOUS 06/04/2025 2:21 PM EDUNIVERSITY HOSPITALS TRIPOINT MEDICAL CENTERpH, Venous7.4187.320 - 7.7268806/04/2025 2:21 PM EDUNIVERSITY HOSPITALS TRIPOINT MEDICAL CENTERpCO2, Venous 39.235.0 - 50.0 mmHg06/04/2025 2:21 PM [facility] pO2, Glinlx0872 - 50 mmHg06/04/2025 2:21 PM [facility] HOSPITALBase, Excess1.00.0 - 2.0 mmol/L1 2:21 PM [facility] HOSPITALHCO3, Rdqshd81.3(H)20.0 - 24.0 mmol/L1 2:21 PM EDT [facility]%O2 Saturation, Fnzusk68.0%06/04/2025 2:21 PM EDTPCLEVELAND CLINIC HILLCREST HOSPITALAllen's testN/A1 2:21 PM EDT [facility]USample siteN/A1 2:21 PM EDT [facility]ITALInsp. O2 conc.21%06/04/2025 2:21 PM EDT [facility]USource Of OxygenRoom Air06/04/2025 2:21 PM EDPREMIER HEALTH ATRIUM MEDICAL CENTERpececu health chow[facility] hospitaln (Source)Anatomical Location / LateralityCollection Method / VolumeCollection TimeReceived TimevenousVenous blood / Grgdcon7806/04/2025 2:19 PM EDT1 2:21 PM EDT Narrative Authorizing ProviderResult TypeResult StatusJames Vaughn MDLAB BLOOD ORDERABLES Final ResultPerforming OrganizationAddressCity/State/ZIP CodePhone Number [facility] [address] [place] [address], [place] * BB ARC TUBES (06/04/2025 1:45 PM EDT)ComponentValueRef RangeTest Method Analysis TimePerformed AtPathologist SignatureExtra TubeAuto Resulted 06/04/2025 3:01 PM EDTFRE AME Arguello (Source)Anatomical Location / LateralityCollection Method / VolumeCollection TimeReceived TimeBloodVenous blood / UnknownVenipuncture / Vapfcrr7006/04/2025 1:45 PM EDT1 1:47 PM EDT Narrative Authorizing ProviderResult TypeResult StatusJames Vaughn MDBLOOD BANK TEST ORDERABLESFinal ResultPerforming OrganizationAddressty/State/ZIP CodePhone Number [facility] [address] [place] [address], [place] * Lactate w/ Reflex (06/04/2025 1:45 PM EDT)ComponentValueRef RangeTest Method Analysis TimePerformed AtPathologist SignatureLACTATE W/REFLEX1.30.4 - 2.0 mmol/L1 2:09 PM EDPREMIER HEALTH ATRIUM MEDICAL CENTERpecimen (Source)Anatomical Location / LateralityCollection Method / VolumeCollection TimeReceived TimeBloodVenous blood / UnknownVenipuncture / Uulmvnv1806/04/2025 1:45 PM EDT1 1:47 PM EDT Narrative [facility] - 06/04/2025 2:09 PM EDT Result did not trigger repeat Lactate, re-order if needed. Authorizing ProviderResult TypeResult StatusJames Vaughn MDLAB BLOOD ORDERABLES Final ResultPerforming OrganizationAddressCity/State/ZIP CodePhone Number [address] [place] [address], [place] * Ammonia (06/04/2025 1:45 PM EDT)ComponentValueRef RangeTest MethodAnalysis TimePerformed AtPathologist UjmbwzpezNYVPSYA2524 - 35 umol/L1 2:10 PM EDPREMIER HEALTH ATRIUM MEDICAL CENTERpecimen (Source)Anatomical Location / LateralityCollection Method / VolumeCollection TimeReceived TimeBloodVenous blood / UnknownVenipuncture / Icdytqf9506/04/2025 1:45 PM EDT1 1:47 PM EDT Narrative Authorizing ProviderResult TypeResult StatusJames BARNES BLOOD ORDERABLES Final ResultPerforming OrganizationAddressCity/State/ZIP CodePhone Number [address] [place] [address], [place] * Ethanol (06/04/2025 1:45 PM EDT)ComponentValueRef RangeTest MethodAnalysis TimePerformed AtPathologist SignatureETHANOL<0.010<=0.080 g/dL06/04/2025 2:11 PM EDUNIVERSITY HOSPITALS TRIPOINT MEDICAL CENTERComment: This report is intended for use in clinical monitoring or management of patients. Specimen (Source)Anatomical Location / LateralityCollection Method / Volume Collection TimeReceived TimeBloodVenous blood / UnknownVenipuncture / Unknown 06/04/2025 1:45 PM EDT1 1:47 PM EDT Narrative Authorizing ProviderResult TypeResult StatusRyan M Hartle MDLAB BLOOD ORDERABLES Final ResultPerforming OrganizationAddressty/State/ZIP CodePhone Number [address] [place] [address], [place] * (ABNORMAL) Acetaminophen level (06/04/2025 1:45 PM EDT)ComponentValueRef Range Test MethodAnalysis TimePerformed AtPathologist SignatureACETAMINOPHEN6.5(L) 10.0 - 30.0 ug/mL06/04/2025 2:11 PM EDUNIVERSITY HOS[facility]ITALS [facility] Specimen (Source)Anatomical Location / LateralityCollection Method / Volume Collection TimeReceived TimeBloodVenous blood / UnknownVenipuncture / Unknown 06/04/2025 1:45 PM EDT1 1:47 PM EDT Narrative [facility] - 06/04/2025 2:11 PM EDT Reference ranges are for therapeutic limits. Authorizing ProviderResult TypeResult StatusJames BARNES BLOOD ORDERABLES Final ResultPerforming OrganizationAddressty/State/ZIP CodePhone Number [address] [place] [address], [place] * Salicylate level (06/04/2025 1:45 PM EDT)ComponentValueRef RangeTest Method Analysis TimePerformed AtPathologist SignatureSALICYLATE<4.02.0 - 25.0 mg/dL 06/04/2025 2:11 PM EDPREMIER HEALTH ATRIUM MEDICAL CENTERpecimen (Source) Anatomical Location / LateralityCollection Method / VolumeCollection Time Received TimeBloodVenous blood / UnknownVenipuncture / Ftdbkhe4606/04/2025 1:45 PM EDT1 1:47 PM EDT Narrative [facility] - 06/04/2025 2:11 PM EDT Reference ranges are for therapeutic limits. Authorizing ProviderResult TypeResult StatusJames BARNES BLOOD ORDERABLES Final ResultPerforming OrganizationAddressCity/State/ZIP CodePhone Number [address] [place] [address], [place] * Light Blue Top (06/04/2025 1:43 PM EDT)ComponentValueRef RangeTest Method Analysis TimePerformed AtPathologist SignatureExtra TubeAuto Resulted 06/04/2025 3:01 PM EDTPCommunity Regional Medical Center (Source) Anatomical Location / LateralityCollection Method / VolumeCollection Time Received TimeBloodVenous blood / Iezwfva6006/04/2025 1:43 PM EDT1 1:49 PM EDT Narrative Authorizing ProviderResult TypeResult StatusJames Vaughn MDLAB BLOOD ORDERABLES Final ResultPerforming OrganizationAddressCity/State/ZIP CodePhone Number [address] [place] [address], [place] * APTT (06/04/2025 1:43 PM EDT)ComponentValueRef RangeTest MethodAnalysis Time Performed AtPathologist CdixdonemGCZB1576 - 37 sec06/04/2025 2:54 PM EDT [facility] (Source)Anatomical Location / LateralityCollection Method / VolumeCollection TimeReceived TimeBloodVenous blood / Wqgkppq5706/04/2025 1:43 PM EDT1 1:49 PM EDT Narrative Authorizing ProviderResult TypeResult StatusJames BARNES BLOOD ORDERABLES Final ResultPerforming OrganizationAddressty/State/[facility] CodePhone Number [address] [place] [address], [place] * (ABNORMAL) Protime & INR (06/04/2025 1:43 PM EDT)ComponentValueRef RangeTest MethodAnalysis TimePerformed AtPathologist PbpaatwcwFIYLHTP88.7(H)9.8 - 13.2 sec06/04/2025 2:54 PM EDTPCLEVELAND CLINIC HILLCREST HOSPITALINR1.5(H)0.9 - 1.210 2:54 PM EDKettering Health [facility] (Source) Anatomical Location / LateralityCollection Method / VolumeCollection Time Received TimeBloodVenous blood / Ytsfvuu1606/04/2025 1:43 PM EDT1 1:49 PM EDT Narrative Authorizing ProviderResult TypeResult StatusJames Vaughn MDLAB BLOOD ORDERABLES Final ResultPerforming OrganizationAddressCity/State/ZIP CodePhone Number [facility] [address] [place] [address], * Critical Care (06/04/2025 1:20 PM EDT) James Frances MD - 06/04/2025 1:20 PM EDT James Vaughn MD 06/04/2025 2:37 PM Critical Care Performed by: James Vaughn MD Authorized by: James Vaughn MD ?? Critical care provider statement: ??Critical care time (minutes): ??60 ??Critical care time was exclusive of: ??Separately billable procedures and treating other patients and teaching time ??Critical care was necessary to treat or prevent imminent or life-threatening deterioration of the following conditions: ??Trauma ??Critical care was time spent personally by me on the following activities: ??Blood draw for specimens, development of treatment plan with patient or surrogate, discussions with consultants, evaluation of patient's response to treatment, examination of patient, interpretation of cardiac output measurements, obtaining history from patient or surrogate, ordering and review of radiographic studies, ordering and review of laboratory studies, ordering and performing treatments and interventions, re-evaluation of patient's condition, pulse oximetry and review of old charts ??I assumed direction of critical care for this patient from another provider in my specialty: no ?Care discussed with: accepting provider at another facility ?? Authorizing ProviderResult TypeResult StatusJames Vaughn MDPROCEDURE/MINOR SURGICAL ORDERABLESFinal Result from Last 3 Months Insurance * Guarantor: Gianni BabinAccount TypeRelation to PatientDate of PhoneBilling AddressPersonal/EqvfloDnpd1955 [facility] [place] [phone] Advance Directives * Full Code (Latest Code Status on File) Date ActivatedDate QvxceuoexhvEpicbzty43/13/2025 7:19 06/22/2025 8:03 PM Care Teams Team MemberRelationshipSpecialtyStart DateEnd Date Clarisa Nunez APRN-ANDREA [address] [place] [address] PCP - GeneralFamily Medicine05/15/25
--- NOTE | 2025-06-23 23:56 | PC.NURSE ---
Mayo catheter irrigated and multiple large blood clots on return. Mayo catheter drains pink tinged urine for short periods then irrigation needed again. Patient confused and is pulling at catheter tubing and clothing.
--- NOTE | 2025-06-24 01:27 | PC.NURSE ---
Pt not listening and trying to get oob, pt assisted into wheelchair and placed in nursing station. ETa for transport back is 30 min. Report called to half-way, that he would be returning, sending irrigation supplies back with him.
== END 2025-06-24 01:13 | disposition home or self-care (01) ==
PROVIDERS: Emergency Provider Emergency Medicine; PCP Family Medicine
DX: T83.098A Other mechanical complication of other urinary catheter, initial encounter (principal)
CPT/HCPCS: 51798; 99283

== ENCOUNTER 2025-06-25 23:53 | Emergency (ER) | payer SELFPAY ==
--- OUTSIDE RECORDS SUMMARY | 2025-06-04 16:25 | XMS_ITS | Encounter Summary ---
Author Organization Giving Assistant [facility] tem Address [id number] [address] [place] [address] Care Team Providers Care State Trooper Name Role Phone Hansen Clarisadieudonne GUZMAN-OBSTETRICS GYN Primary Care Provider Reason for Referral * Misc (Routine) - Pending ReviewSpecialtyDiagnoses / ProceduresReferred By ContactReferred To Contact Procedures Discharge Follow-Up Mable Marroquin MD [address] [place] [address] Phone: tel: fax: Referral IDStatusReasonStart DateExpiration DateVisits RequestedVisits [id number] * Misc (Routine) - Pending ReviewSpecialtyDiagnoses / ProceduresReferred By ContactReferred To Contact Diagnoses Nontraumatic intracerebral hemorrhage, unspecified cerebral location, unspecified laterality ([facility]) Procedures Follow-up with primary care provider Mable Marroquin MD [address] [place] [address] Phone: tel: fax: Referral IDStatusReasonStart DateExpiration DateVisits RequestedVisits [id number] * Diagnostic Imaging (Routine) - Pending ReviewSpecialtyDiagnoses / Procedures Referred By ContactReferred To ContactRadiology Diagnoses Nontraumatic intracerebral hemorrhage, unspecified cerebral location, unspecified laterality ([facility]) Procedures CT brain without contrast Mable Marroquin MD [address] [place] [address] Phone: tel: fax: Referral IDStatusReasonStart DateExpiration DateVisits RequestedVisits [id number] * Vascular (Routine) - AuthorizedSpecialtyDiagnoses / ProceduresReferred By ContactReferred To Contact Diagnoses Nontraumatic intracerebral hemorrhage, unspecified cerebral location, unspecified laterality ([facility]) Procedures Vas venous duplex lwr bilateral Mable Marroquin MD [address] [place] [address] Phone: tel: fax: Referral IDStatusReasonStart DateExpiration DateVisits RequestedVisits [id number]/[id number]/31/[id number] Reason for Visit * ReasonCommentsFall * Auth/CertSpecialtyDiagnoses / ProceduresReferred By ContactReferred To Contact Diagnoses ICH (intracerebral hemorrhage) ([facility]) [facility] - Emergency Department [address] [place] [address] Phone: tel: fax: Referral IDStatusReasonStart DateExpiration DateVisits RequestedVisits [id number] Encounter Details DateTypeDepartmentCare Team (Latest Contact Info)Blggbfwoqyf49/13/2025 5:25 PM EDT - 06/22/2025 5:58 PM EDTHospital Encounter [facility] - GEN 8 Acute [address] [facility] [place] [address] Carter Smith W, DO [address] [place] [address] Patricia Mcclellan MD [address] [place] [address], [facility] [address] [place] [address] Traumatic intracerebral hemorrhage with unknown loss of consciousness status, unspecified laterality, subsequent encounter (Primary Dx); Type 2 diabetes mellitus with other specified complication, unspecified whether residential insulin use ([facility]); Nontraumatic intracerebral hemorrhage, unspecified cerebral location, unspecified laterality ([facility]) Discharge Disposition: Nursing Home Facility-Medicare Cert Social History Tobacco UseTypesPacks/DayYears UsedDateSmoking Tobacco: Every UblInrwandxxv562.8 Started: 1972Smokeless Tobacco: Never Tobacco Cessation:Ready to Q uit: No; Counseling Given: Yes Alcohol UseStandard Drinks/WeekCommentsYes0 (1 standard drink = 0.6 oz pure alcohol)[facility] UtilitiesAnswerDate RecordedIn the past 12 months has the [employer], gas, oil, or water [employer] threatened to shut off services in your home?No 06/05/2025UDIT-CAnswerDate RecordedQ1: How often do you have a drink containing alcohol?Patient unable to aatbsr9206/05/2025Q2: How many drinks containing alcohol do you have on a typical day when you are drinking?Patient unable to answer 06/05/2025Q3: How often do you have six or more drinks on one occasion?Patient unable to kggxdg4706/05/2025PRAPARE - TransportationAnswerDate RecordedIn the past 12 months, has lack of transportation kept you from medical appointments or from getting medications?No06/05/2025In the past 12 months, has lack of transportation kept you from meetings, work, or from getting things needed for daily living?No06/05/2025Housing InstabilityAnswerDate RecordedAre you worried or concerned that in the next two months you may not have stable housing that you own, rent or stay in as a part of a household?No5ChildcareAnswer Date YddhpqmvGyxpbfixkVwafzpr79/12/2019EmploymentAnswerDate RecordedEmployment Apolrch9002/01/2019Hunger ScreeningAnswerDate RecordedWithin the past 12 months we worried whether our food would run out before we got money to buy more.Never True06/11/2025Within the past 12 months the food we bought just didn't last and we didn't have money to get more.Never True06/11/2025Sex and Gender Information ValueDate RecordedSex Assigned at BirthNot on fileLegal EauTijc8003/28/2015 11:52 AM EDTGender IdentityNot on fileSexual OrientationNot on filedocumented as of this encounter Last Filed Vital Signs Vital SignReadingTime TakenCommentsBlood Agmkkawx805/6506/22/2025 11:12 AM EDT Fbnfu413806/22/2025 11:12 AM HHSZptmfztaste23.8 ??C (98.3 ??F)06/22/2025 11:12 AM EDTRespiratory Gqyf118906/22/2025 11:12 AM EDTOxygen Elcvadeahp87%06/22/2025 11:12 AM EDTInhaled Oxygen Concentration--Mxxldg67.6 kg (215 lb 2.7 oz)06/22/2025 5:00 AM VKHPzfegu870.9 cm (6')06/12/2025 4:00 AM EDTBody Mass Index29.181 4:00 AM EDTdocumented in this encounter Functional Status * AUDIT-C ScoreAnswerDate of AssessmentAuthor- 10:09 AM Laura Johnson RN * QuestionAnswerDate of AssessmentAuthorQ1: How often do you have a drink containing alcohol?Patient unable to nuvdks9606/05/2025 10:09 AM Laura Johnson RNQ2: How many drinks containing alcohol do you have on a typical day when you are drinking?Patient unable to bmimlc8306/05/2025 10:09 AM Laura Johnson RNQ3: How often do you have six or more drinks on one occasion?Patient unable to waeiqs7306/05/2025 10:09 AM Laura Johnson RN * QuestionAnswerDate of AssessmentAuthorFunctional TeedtuLjzbrufbyyy68/14/2025 9:59 AM Laura Johnson RN documented as of this encounter Mental Status * QuestionAnswerEntry DateAuthorOverall Cognitive ZfgucrY24/27/2025 9:45 AM EDT Sue Hernandez BATOOL/L * QuestionAnswerEntry DateAuthorOverall Cognitive SvdnfqG45/15/2025 9:37 AM EDT Gary Hernandez CCC-BLOCK HACKER documented in this encounter Discharge Summaries * Mable Butt MD - 06/22/2025 7:39 AM EDT Images from the original note were not included. Vascular neurology Inpatient Discharge Summary BRIEF OVERVIEW Admitting Provider: Patricia Mcclellan MD Discharge Provider: Patricia Mcclellan MD Primary Care Physician at Discharge: SIENNA BARRIENTOS [phone] Admission Date: 06/04/2025 Discharge Date: No discharge date for patient encounter. Primary Discharge Diagnosis R IPH with intra-ventricular extension, likely 2/2 HTN (ICH score 2) Secondary Discharge Diagnosis Unprovoked DVT, plans for weekly duplex Possible ureteral stent placement in the outpatient setting Discharge Disposition Institution Not Defined Elsewhere Code Status at Discharge: Full Active Issues Requiring Follow-up Vascular medicine follow up to determine if patient needs anticoagulation for previous DVT, plans for weekly duplex Possible ureteral stent placement SOFIA evaluation outpatient BALJIT on CKD Outpatient Follow-Up Future Appointments Date Time Provider Department Center 06/28/2025 9:00 AM SIENNA Walter [facility] 07/18/2025 3:30 PM Yani Moses MD [facility] Referrals and Follow-ups to Schedule CT brain without contrast Release to patient via MyChart?: Immediate Reason for Exam: CVA Test Results Pending at Discharge Pending Labs Order Current Status Bedside Glucose *Place/Obtain serum glucose if >500 per glucometer. Collected (06/04/251954) Blood culture #1 Preliminary result Blood culture #2 Preliminary result DETAILS OF HOSPITAL STAY Presenting Problem/History of Present Illness ICH (intracerebral hemorrhage) ([facility]) [I61.9] ST elevation [R94.31] Deficit: AMS Last known well: Unclear, some time on 06/03/25 Patient seen at: ED Initial NIHSS: 9 Premorbid mRS: 0 Initial imaging: R Thalamic IPH with IVH ICH Score: 2 Initial BP reported: 134/83 Hospital Course Gianni Babin is a 70 y.o. male who initially presented to an outside hospital and thereafter was transferred to [facility] via air. Past medical history significant for hypertension, DM, HLD,Obesity, DM2, recent DVT on Eliquis. Per chart review, the patient was initially taken to an outside hospital ED by EMS for evaluation of altered mental status. The patient was not aware of where he was, what year it was or who the president was. Imaging studies were done at the outside hospital including CT brain which showed 2.3 cm right thalamic hemorrhage with intraventricular extension. He was on Eliquis due to recent DVT and started on Eliquis. In the ED Kcentra was given for reversal of Eliquis. He was also given Keppra 2g at the outside hospital and started on Cardene infusion. The patient was accepted by the trauma service and transferred to [facility]. Upon arrival to [facility] ED, vascular neurology consulted. Upon my evaluation the patient is currently on room air. He appears to be confused, answering questions but incorrectly. He is able to follow commands intermittently. The patient has stable blood pressure, currently 119/80. According to the family he had an episode of fall 3 days back. However, themain onset of confusion was this morning. Past medical history: DVT on Eliquis, HTN, HLD, Obesity, DM2 Home medications: Eliquis, Aspirin, Lipitor, Lisinopril, Metformin Social history: Daily alcohol drinker, chronic smoking CT head showed intraparenchymal hemorrhage with intra-ventricular extension CTA: ICAD, no LVO MRI brain on 06/07: redemonstrated right thalamic hematoma with intraventricular extension HbA1c: 8.9 LDL: 77 Echo: EF 55-60%, normal LA. No mention of PFO Patient was resumed on his home aspirin 81 mg Home Eliquis for recent DVT prior to this admission was held Patient to follow-up with vascular surgery in the outpatient setting and based on further duplex studies, they will determine anticoagulation therapy. Plans for weekly Doppler. Urology wanted to do inpatient procedure pending clearance from neurology attending on service. spoke with Dr. Mann on phone, will recommend holding off any procedures atleast 10 days after discharge for now. Patient was treated for UTI with ceftriaxone Patient had intermittent hypernatremia during his hospital stay as well as BALJIT on CKD, Nephrology was on board Considering patient is chronic alcoholic and slow in communication, completed thiamine 500mg TID course. vEEG discontinued on 06/06. Levetiracetam levels therapeutic. Given Keppra due to provoked seizure at the outside hospital. Completed a 7 day course. Patient exhibited daytime excessive sleepiness along with snoring at night, we will arrange a follow up with for evaluation for SOFIA. OT/PT recommendations: SNF Modified [facility] score on discharge: [address] [facility] score: 0 NIHSS at discharge: 8 Operative Procedures Performed Treatments: home aspirin, Keppra for 7 days Consults: nephrology, urology, and vascular surgery Procedures: None Pertinent Test Results: HbA1c: 8.9 LDL: 77 Echo: EF 55-60%, normal LA. No mention of PFO CT brain without contrast Result Date: 06/21/2025 CT BRAIN WO CONT HISTORY: Lethargy COMPARISON: CT head 06/11/2025, 06/05/2025, MR brain 06/06/2025 TECHNIQUE: CT brain obtained without intravenous contrast. Automated exposure control was utilized. All CT scans at this facility use dose modulation, iterative reconstruction, and/or weight based dosing when appropriate to reduce radiation dose to as low as reasonably achievable. FINDINGS: Expectedevolution sizable right thalamic parenchymal hematoma, decreased in size and attenuation, now approximately 2.3 cm. Intraventricular blood products are conspicuous a hyperdense, overall volume is slightly reduced with respect to 06/11/2025. No new site of intracranial hemorrhage. No ventricular outflow obstruction. Sequelae multiple ischemic events within the basal ganglia, some of which are decidedly nonacute, others which are more recent [such as right lateral lenticulostriate supervision, 1.5 cm [series 3 3 image #34]. No territorial region of diminished velazquez-white differentiation. Moderate heterogeneity throughout the white matter. Fluid left greater than right mastoids. Unremarkable visualized suprahyoid neck. CSF engorged optic nerve sheaths. Unremarkable scalp soft tissues. No depressed or calvarial fracture. IMPRESSION: 1. Evolving hematoma of the right thalamus, volume of intraventricular blood proximal appears slightly reduced. However, there is persistent hyperdensity, which is somewhat unusual for overall time course, slow ongoing bleed is possible, however appearance may also relate to coalescence of prior blood products. No evidence of hydrocephalus or new or enlarging intraparenchymal hemorrhage. 2. Increased conspicuity of recent infarct of the right basal ganglia. Sequelae other nonacute ischemic events. Approved by Med Vidal DO on 06/21/2025 2:20 PM IStiven MD have personally reviewed the image(s) and agree with and/or edited the report Finalized by Stiven Vu MD on 06/21/2025 2:55 PM Vas venous duplex lwr bilateral Result Date: 06/21/2025 Right: Limited visualization of veins in the thigh and calf due to excessive patient movement. Lower extremity deep veins are compressible with spontaneous phasic spectral Doppler waveforms; superficial small saphenous vein is compressible without intraluminal content. Non-visualized, absent or surgically harvested Great saphenous superficial vein in the thigh and calf. Left: Limited visualization of veins in the thigh and calf due to excessive patient movement. Lower extremity deep veins are compressible with spontaneous phasic spectral Doppler waveforms; superficial small saphenous vein is compressible without intraluminal content. Non-visualized, absent or surgically harvested Great saphe nous superficial vein in the thigh and calf. Conclusions: BILATERAL: NO EVIDENCE of deep or superficial vein thrombosis of the lower extremities with limited visualization of lower extremity vein segments as described above. The great saphenous vein is not visualized or surgically absent. Recommendations: Any questions prior to finalization, please call the reading physician during normal business hours at the phone number beside their name. Physical Exam at Discharge Pulse: 76 Resp: 21 BP: 123/65 Temp: 36.8 ??C (98.3 ??F) Weight: 97.6 kg (215 lb 2.7 oz) NIHSS: 1a Level of consciousness: 1=not alert but arousable by minor stimulation to obey, answer or respond 1b. LOC questions: 2=Performs neither task correctly 1c. LOC commands: 2=Performs neither task correctly 2. Best Gaze: 0=normal 3. Visual: 1=Partial hemianopia 4. Facial Palsy: 0=Normal symmetric movement 5a. Motor left arm: 0=No drift, limb holds 90 (or 45) degrees for full 10 seconds 5b. Motor right arm: 0=No drift, limb holds 90 (or 45) degrees for full 10 seconds 6a. motor left le=No drift, limb holds 90 (or 45) degrees for full 10 seconds 6b Motor right le=No drift, limb holds 90 (or 45) degrees for full 10 seconds 7. Limb Ataxia: 0=Absent 8. Sensory: 0=Normal; no sensory loss 9. Best Language: 1=Mild to moderate aphasia; some obvious loss of fluency or facility of comprehension without significant limitation on ideas expressed or form of expression. 10. Dysarthria: 1=Mild to moderate, patient slurs at least some words and at worst, can be understood with some difficulty 11. Extinction and Inattention: 0=No abnormality Medication List START taking these medications Instructions Last Dose Given Next Dose Due amLODIPine 10 mg tablet Commonly known as: NORVASC Start taking on: June 23, 2025 Take 1 tablet (10 mg total) by mouth in the morning. carvediloL 12.5 mg tablet Commonly known as: COREG Take 1 tablet (12.5 mg total) by mouth in the morning and 1 tablet (12.5 mg total) before bedtime. hydrALAZINE 100 mg tablet Commonly known as: APRESOLINE Take 0.5 tablets (50 mg total) by mouth every 8 (eight) hours. insulin glargine 100 unit/mL (3 mL) insulin pen Commonly known as: LANTUS, SEMGLEE Inject 12 Units under the skin in the morning. * insulin lispro 100 unit/mL insulin pen Commonly known as: HumaLOG Give 6 units with meals and follow sliding scale * insulin lispro 100 unit/mL insulin pen Commonly known as: HumaLOG Inject 1-5 Units under the skin 4 (four) times a day with meals and nightly. QUEtiapine 25 mg tablet Commonly known as: SEROquel Take 1 tablet (25 mg total) by mouth nightly. * This list has 2 medication(s) that are the same as other medications prescribed for you. Read thedirections carefully, and ask your doctor or other care provider to review them with you. CONTINUE taking these medications Instructions Last Dose Given Next Dose Due ACCU-CHEK GUIDE ME GLUCOSE MTR misc Generic drug: blood-glucose meter USE DAILY OR DIRECTED FOR MONITORING OF DIABETES. ACCU-CHEK GUIDE TEST STRIPS strip Generic drug: blood sugar diagnostic USE DAILY ACCU-CHEK SOFTCLIX LANCETS lancets Generic drug: lancets USE TO TEST DAILY aspirin 81 mg Take 1 tablet (81 mg total) by mouth in the morning. atorvastatin 20 mg tablet Commonly known as: LIPITOR Take 1 tablet (20 mg total) by mouth every morning. TAKE 1 TABLET (20 MG) BY MOUTH IN THE MORNING TRIPLE MAGNESIUM COMPLEX 400 mg magnesium capsule Generic drug: magnesium aspart,citrate,oxide Take 400 mg by mouth in the morning. STOP taking these medications ELIQUIS 5 mg tablet Generic drug: apixaban lisinopriL 40 mg tablet Commonly known as: PRINIVIL,ZESTRIL metFORMIN 1000 mg tablet Commonly known as: GLUCOPHAGE Where to Get Your Medications These medications were sent to [facility]/pharmacy [address] [place], [place] [id number] amLODIPine 10 mg tablet carvediloL 12.5 mg tablet hydrALAZINE 100 mg tablet insulin glargine 100 unit/mL (3 mL) insulin pen insulin lispro 100 unit/mL insulin pen insulin lispro 100 unit/mL insulin pen QUEtiapine 25 mg tablet Case was seen and discussed with Dr. Rimma Chowdhury. Adolph Butt MD PGY-2 Neurology Resident 06/22/25 Cosigned by Chris Shanks MD at 06/24/2025 9:53 PM EST Associated attestation - Chris Shanks MD - 06/24/2025 9:53 PM EST Patient seen & examined in conjunction with PGy3. I have reviewed and agree with the HPI, Past/Family/Social histories, ROS, examination, assessment and plan as outlined in the H&P/consultation note above. documented in this encounter Discharge Instructions * Discharge Instructions* Mable Butt MD - 06/16/2025 8:25 AM EDT The best way to ensure good health maintenance and avoid rehospitalization is to ensure strict medication compliance and close outpatient follow up. Please ensure you take all medications as prescribed. This includes your home medication regimen, plus the following adjustments: STOP taking Eliquis. This medication is being discontinued because it is a blood thinner and you have a bleed in your brain. The plan was discussed with vascular surgery team who recommend resumptionof the medication only after duplex scan and discussing it with them in their outpatient clinic. You need to follow up with the your PCP for further management in 4-6 weeks You follow up with vascular surgery in 4-6 weeks. On your outpatient appointment with vascular surgery, please discuss when to resume the blood thinner (Eliquis). You will need to do weekly ultrasound duplex of your legs. You will follow up with the urology in 1-2 weeks, and they will discuss doing a seizure for you You will also follow up with stroke in 4-[address] head will be done in 4 weeks You will follow up with Nephrology in 4-6 weeks Please ensure appropriate follow up, including being seen by your primary care provider (PCP), vascular neurologist, vascular surgeon, sleep neurologist within two weeks of discharge for a post-hospitalization follow up. The purpose of this visit is to ensure you are recovering appropriately from your recent hospitalization, and for a medication review. If you develop new or concerning symptoms, including fever, chills, shortness of breath, chest pain, or palpitations, please present to the nearest emergency department. documented in this encounter Medications at Time of Discharge MedicationSigDispense QuantityRefillsLast FilledStart DateEnd Date ACCU-CHEK GUIDE ME GLUCOSE MTR misc USE DAILY OR DIRECTED FOR MONITORING OF DIABETES.05/15/2025 ACCU-CHEK GUIDE TEST STRIPS strip USE DAILY05/15/2025 ACCU-CHEK SOFTCLIX LANCETS lancets USE TO TEST DAILY05/15/2025 amLODIPine (NORVASC) 10 mg tablet Take 1 tablet (10 mg total) by mouth in the morning. 90 tablet aspirin 81 mg Take 1 tablet (81 mg total) by mouth in the morning. atorvastatin (LIPITOR) 20 mg tablet Take 1 tablet (20 mg total) by mouth every morning. TAKE 1 TABLET (20 MG) BY MOUTH IN THE HLEBXLX7805/15/2025 carvediloL (COREG) 12.5 mg tablet Take 1 tablet (12.5 mg total) by mouth in the morning and 1 tablet (12.5 mg total) before bedtime. 60 tablet hydrALAZINE (APRESOLINE) 100 mg tablet Take 0.5 tablets (50 mg total) by mouth every 8 (eight) hours. 45 tablet insulin glargine (LANTUS, SEMGLEE) 100 unit/mL (3 mL) insulin pen Indications:Type 2 diabetes mellitus with other specified complication, unspecified whether terminal superintendent insulin use ([facility])Inject 12 Units under the skin in the morning. 15 mL 06/22/2025 insulin lispro (HumaLOG) 100 unit/mL insulin pen Give 6 units with meals and follow sliding scale 15 mL insulin lispro (HumaLOG) 100 unit/mL insulin pen Inject 1-5 Units under the skin 4 (four) times a day with meals and nightly. 15 mL magnesium aspart,citrate,oxide (TRIPLE MAGNESIUM COMPLEX) 400 mg magnesium capsule Take 400 mg by mouth in the morning. QUEtiapine (SEROquel) 25 mg tablet Take 1 tablet (25 mg total) by mouth nightly. 30 tablet [id number] as of this encounter Progress Notes * ANDREW Serna - 06/22/2025 2:50 PM EDT Called by nursing staff as patient pulled out his Mayo catheter. Advised them to replace it, they were unable to do so. Patient's vitals are stable temp 36.8??, heart rate 76, respirations 21, blood pressure 123/65 General exam no acute distress, remains with some confusion, partially mumbling and unable to understand completely. States does have some urge to void, but unable to. Abdomen is soft, nondistended, some mild suprapubic tenderness, in sterile manner I prepped phalluswith Betadine, injected KY jelly in kit into urethra, advanced 16 Romanian coude into patient's bladder without difficulty, return of yellow urine. Patient tolerated well. As per previous note patient to discharge home with Mayo catheter, and follow up in 1-2 [address]Dr. Bess to discuss possible options for intervention. - ANDREW SERNA 06/22/25 2:54 PM ANDREW Serna 06/22/25 1454 * Renita Matson DO - 06/22/2025 12:23 PM EDT Images from the original note were not included. Nephrology Daily Progress Note IMPRESSION: Nonoliguric acute kidney injury underlying chronic kidney disease stage IIIA with baseline creatinine around 1.3-1.4 mg/dL, renal function near baseline creatinine of 1.7 mg/dL. Bilateral hydronephrosis status post Mayo catheter placement, renal scan showed no evidence of high-grade obstruction, split renal function with 32% of the left kidney and 68% of the right kidney noted. Noted serologies plans for left ureteral stent placement at some point as outpatient. Intrapericardial hemorrhage with intraventricular extension likely secondary to hypertensive emergency, neuro service following Metabolic encephalopathy secondary to above Hypertension, blood pressure currently controlled Hypernatremia due to free water deficit on hypotonic fluids Plan : Give 1 L D 2.5 bolus Renal panel daily Strict I&Os Encourage oral fluid intake Patient will need a BMP to be checked weekly for the next 2 weeks Patient can follow up in our clinic in 8 weeks. INTERVAL HISTORY/History of present illness: Patient seen examined at bedside hemodynamically stable. On room air. Appetite fair. 1.6 L of urineoutput documented over the last 24 hours. Patient ripped out his Mayo catheter. Patient remains confused. PROBLEM LIST: Acute kidney injury on Chronic kidney disease stage IIIA with baseline creatinine around 1.3-1.4 mg/dL: CT scan of abdomen pelvis with contrast on 06/04/2025 showed cortical scarring with significantcaliectasis and hydronephrosis right ureter is dilated down to the urinary bladder. Cortical scarring. Left kidney significant hydronephrosis and caliectasis no discrete cortical scarring. Renal ultrasound showed right hydronephrosis and mild left hydronephrosis. Urine protein to creatinine ratio is 1 g/g. Hepatitis panel and HIV are negative C3 is normal. C4 is on the high side which is 53. Rheumatoid factor is normal. Heoy-ivpnbe-wwhncdnf DNA is negative. LUIZA is negative. Glomerular basement membrane antibodies are negative. SPEP is negative for M bands. Anca was negative. 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 VITAL SIGNS TREND: Vitals: 06/22/25 0500 06/22/25 0636 06/22/25 0740 06/22/25 1112 BP: 95/71 152/89 123/65 Pulse: 74 71 76 Resp: 20 14 21 Temp: 36.6 ??C (97.9 ??F) 36.8 ??C (98.3 ??F) TempSrc: Oral Oral SpO2: 94% 96% Weight: 97.6 kg (215 lb 2.7 oz) Height: INTAKE/OUTPUT: Intake/Output Summary (Last 24 hours) at 06/22/2025 1223 Last data filed at 06/22/2025 1116 Gross per 24 hour Intake -- Output 2100 ml Net -2100 ml I/O this shift: In: - Out: 450 [Urine:450] WEIGHT: Wt Readings from Last 3 Encounters: 10/31/25 97.6 kg (215 lb 2.7 oz) 06/04/25 93 kg (205 lb) amLODIPine, 10 mg, oral, Daily aspirin, 81 mg, oral, Daily atorvastatin, 20 mg, oral, Nightly carvediloL, 12.5 mg, oral, BID cefTRIAXone (ROCEPHIN) IV, 1,000 mg, intravenous, Q24H heparin (porcine), 5,000 Units, subcutaneous, Q8H CATRINA hydrALAZINE, 100 mg, oral, Q8H CATRINA insulin glargine, 12 Units, subcutaneous, Daily insulin lispro, 1-10 Units, subcutaneous, With meals and nightly insulin lispro, 1-5 Units, subcutaneous, With meals and nightly melatonin, 5 mg, oral, Nightly OLANZapine, 5 mg, intramuscular, Once QUEtiapine, 25 mg, oral, Nightly dextrose 2.5 % in water, 1,000 mL infusion, 75 mL/hr, Last Rate: 75 mL/hr (06/22/25 0251) dextrose 5 % in water, 100 mL/hr PHYSICAL EXAM: Blood pressure 123/65, pulse 76, temperature 36.8 ??C (98.3 ??F), temperature source Oral, resp. rate 21, height 182.9 cm (6'), weight 97.6 kg (215 lb 2.7 oz), SpO2 96%. Temp: [36.2 ??C (97.2 ??F)-37 ??C (98.6 ??F)] 36.8 ??C (98.3 ??F) Pulse: [68-86] 76 Resp: [14-21] 21 BP: (95-152)/(65-90) 123/65 SpO2: [93 %-96 %] 96 % O2 Device: None (Room air) O2 Flow Rate (L/min): [0 L/min] 0 L/min General appearance: Confused, awake, in no acute distress HEENT: no JVD, no carotid bruits, no lymphadenopathy. Cardiovascular: normal S1-S2 Respiratory: clear to auscultation bilaterally Gastrointestinal: soft, no tenderness, no guarding, positive bowel sounds Musculoskeletal: no edema Skin : No Rash. Neuro: Awake but confused LABORATORY EVALUATION: Results from last 7 days Lab Units 06/22/25 0800 06/21/25 0610 06/20/25 0611 06/19/25 0601 06/18/25 0555 SODIUM mmol/L 150* 148* 146 144 143 POTASSIUM mmol/L 4.6 4.8 4.6 4.7 4.4 CHLORIDE mmol/L 116* 116* 114* 112* 110* CO2 mmol/L 24 21* 23 23 23 BUN mg/dL 41* 40* 47* 55* 55* CREATININE mg/dL 1.75* 1.68* 1.71* 1.90* 2.04* CALCIUM mg/dL 9.9 9.5 9.6 9.6 9.5 MAGNESIUM mg/dL 2.3 2.3 2.5 2.7* 2.7* PHOSPHORUS mg/dL 4.6 4.7 4.8 4.7 4.7 Results from last 7 days Lab Units 06/22/25 0800 06/21/25 0610 06/20/25 0611 06/19/25 0601 06/18/25 0555 WBC x10E9/L 5.6 5.0 4.6 5.6 5.5 HEMOGLOBIN g/dL 13.6 13.2 13.3 13.4 13.6 HEMATOCRIT % 40.1 38.9* 39.3 39.3 39.6 PLATELETS X10E9/L 261 270 245 225 225 Results from last 7 days Lab Units 06/22/25 0800 06/21/25 0610 06/20/25 0611 06/19/25 0601 06/18/25 0555 PROTEIN TOTAL g/dL 7.2 7.0 6.9 7.0 7.0 ALBUMIN g/dL 3.7 3.9 3.7 3.7 3.8 AST U/L 21 26 23 22 24 ALT U/L [address] brain without contrast Result Date: 06/21/2025 CT BRAIN WO CONT HISTORY: Lethargy COMPARISON: CT head 06/11/2025, 06/05/2025, MR brain 06/06/2025 TECHNIQUE: CT brain obtained without intravenous contrast. Automated exposure control was utilized. All CT scans at this facility use dose modulation, iterative reconstruction, and/or weight based dosing when appropriate to reduce radiation dose to as low as reasonably achievable. FINDINGS: Expectedevolution sizable right thalamic parenchymal hematoma, decreased in size and attenuation, now approximately 2.3 cm. Intraventricular blood products are conspicuous a hyperdense, overall volume is slightly reduced with respect to 06/11/2025. No new site of intracranial hemorrhage. No ventricular outflow obstruction. Sequelae multiple ischemic events within the basal ganglia, some of which are decidedly nonacute, others which are more recent [such as right lateral lenticulostriate supervision, 1.5 cm [series 3 3 image #34]. No territorial region of diminished velazquez-white differentiation. Moderate heterogeneity throughout the white matter. Fluid left greater than right mastoids. Unremarkable visualized suprahyoid neck. CSF engorged optic nerve sheaths. Unremarkable scalp soft tissues. No depressed or calvarial fracture. IMPRESSION: 1. Evolving hematoma of the right thalamus, volume of intraventricular blood proximal appears slightly reduced. However, there is persistent hyperdensity, which is somewhat unusual for overall time course, slow ongoing bleed is possible, however appearance may also relate to coalescence of prior blood products. No evidence of hydrocephalus or new or enlarging intraparenchymal hemorrhage. 2. Increased conspicuity of recent infarct of the right basal ganglia. Sequelae other nonacute ischemic events. Approved by Med Vidal DO on 06/21/2025 2:20 PM I, Stiven Vu MD have personally reviewed the image(s) and agree with and/or edited the report Finalized by Stiven Vu MD on 06/21/2025 2:55 PM Vas venous duplex lwr bilateral Result Date: 06/21/2025 Right: Limited visualization of veins in the thigh and calf due to excessive patient movement. Lower extremity deep veins are compressible with spontaneous phasic spectral Doppler waveforms; superficial small saphenous vein is compressible without intraluminal content. Non-visualized, absent or surgically harvested Great saphenous superficial vein in the thigh and calf. Left: Limited visualization of veins in the thigh and calf due to excessive patient movement. Lower extremity deep veins are compressible with spontaneous phasic spectral Doppler waveforms; superficial small saphenous vein is compressible without intraluminal content. Non-visualized, absent or surgically harvested Great saphe nous superficial vein in the thigh and calf. Conclusions: BILATERAL: NO EVIDENCE of deep or superficial vein thrombosis of the lower extremities with limited visualization of lower extremity vein segments as described above. The great saphenous vein is not visualized or surgically absent. Recommendations: Any questions prior to finalization, please call the reading physician during normal business hours at the phone number beside their name. RENITA MATSON D.O. [facility] Thank you for your consultation and allowing us to participate in the care of Gianni Montelongo please do not hesitate to call us with any questions at: Office: [phone] Office Answering Service: [phone] Please feel free to contact me through [email or web address] Secure chat during the daytime hours, if no response after 5 minutes then call the answering service. This note was created with the assistance of a speech-recognition program. Although the intention is to generate a document that actually reflects the content of the visit, no guarantees can be provided that every mistake has been identified and corrected by editing. * Renita Matson DO - 06/21/2025 1:44 PM EDT Images from the original note were not included. Nephrology Daily Progress Note IMPRESSION: Nonoliguric acute kidney injury underlying chronic kidney disease stage IIIA with baseline creatinine around 1.3-1.4 mg/dL, renal function near baseline creatinine of 1.6 mg/dL. Bilateral hydronephrosis status post Mayo catheter placement, renal scan showed no evidence of high-grade obstruction, split renal function with 32% of the left kidney and 68% of the right kidney noted. Noted serologies plans for left ureteral stent placement at some point. Intrapericardial hemorrhage with intraventricular extension likely secondary to hypertensive emergency, neuro service following Hypertension, blood pressure currently controlled Hypernatremia due to free water deficit Plan : Continue D2.5 with parameters Renal panel daily Strict I&Os Appreciate urology input Plan discussed with patient's sister at bedside Plan discussed with bedside nurse INTERVAL HISTORY/History of present illness: Patient currently not at bedside receiving imaging. Hemodynamically stable. On room air. 2.1 L of urine output documented over the last 24 hours. PROBLEM LIST: Acute kidney injury on Chronic kidney disease stage IIIA with baseline creatinine around 1.3-1.4 mg/dL: CT scan of abdomen pelvis with contrast on 06/04/2025 showed cortical scarring with significantcaliectasis and hydronephrosis right ureter is dilated down to the urinary bladder. Cortical scarring. Left kidney significant hydronephrosis and caliectasis no discrete cortical scarring. Renal ultrasound showed right hydronephrosis and mild left hydronephrosis. Urine protein to creatinine ratio is 1 g/g. Hepatitis panel and HIV are negative C3 is normal. C4 is on the high side which is 53. Rheumatoid factor is normal. Ljde-jsipwu-arkoukzg DNA is negative. LUIZA is negative. Glomerular basement membrane antibodies are negative. SPEP is negative for M bands. Anca was negative. 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 VITAL SIGNS TREND: Vitals: 06/21/25 0400 06/21/25 0500 06/21/25 0745 06/21/25 1138 BP: 125/72 121/72 129/64 Pulse: 79 Resp: 16 Temp: 36.6 ??C (97.8 ??F) 36.7 ??C (98.1 ??F) (!) 35.9 ??C (96.6 ??F) TempSrc: Oral Oral Axillary SpO2: 94% 97% Weight: 98.9 kg (218 lb 0.6 oz) Height: INTAKE/OUTPUT: Intake/Output Summary (Last 24 hours) at 06/21/2025 1344 Last data filed at 06/21/2025 0600 Gross per 24 hour Intake -- Output 1625 ml Net -1625 ml No intake/output data recorded. WEIGHT: Wt Readings from Last 3 Encounters: 06/21/25 98.9 kg (218 lb 0.6 oz) 06/04/25 93 kg (205 lb) amLODIPine, 10 mg, oral, Daily aspirin, 81 mg, oral, Daily atorvastatin, 20 mg, oral, Nightly carvediloL, 12.5 mg, oral, BID cefTRIAXone (ROCEPHIN) IV, 1,000 mg, intravenous, Q24H heparin (porcine), 5,000 Units, subcutaneous, Q8H CATRINA hydrALAZINE, 100 mg, oral, Q8H CATRINA insulin glargine, 12 Units, subcutaneous, Daily insulin lispro, 1-10 Units, subcutaneous, With meals and nightly insulin lispro, 1-5 Units, subcutaneous, With meals and nightly melatonin, 5 mg, oral, Nightly OLANZapine, 5 mg, intramuscular, Once QUEtiapine, 25 mg, oral, Nightly dextrose 5 % in water, 100 mL/hr sodium chloride, 50 mL/hr, Last Rate: 50 mL/hr (06/21/25 0510) PHYSICAL EXAM: Blood pressure 129/64, pulse 79, temperature (!) 35.9 ??C (96.6 ??F), temperature source Axillary, resp. rate 16, height 182.9 cm (6'), weight 98.9 kg (218 lb 0.6 oz), SpO2 97%. Temp: [35.9 ??C (96.6 ??F)-37 ??C (98.6 ??F)] 35.9 ??C (96.6 ??F) Pulse: [76-82] 79 Resp: [16-20] 16 BP: (121-145)/(64-75) 129/64 SpO2: [94 %-97 %] 97 % O2 Device: None (Room air) O2 Flow Rate (L/min): [0 L/min] 0 L/min Unable to assess as patient currently not at bedside receiving imaging LABORATORY EVALUATION: Results from last 7 days Lab Units 06/21/25 0610 06/20/25 0611 06/19/25 0601 06/18/25 0555 06/17/25 0608 SODIUM mmol/L 148* 146 144 143 141 POTASSIUM mmol/L 4.8 4.6 4.7 4.4 4.3 CHLORIDE mmol/L 116* 114* 112* 110* 110* CO2 mmol/L 21* 23 23 23 26 BUN mg/dL 40* 47* 55* 55* 51* CREATININE mg/dL 1.68* 1.71* 1.90* 2.04* 1.99* CALCIUM mg/dL 9.5 9.6 9.6 9.5 9.4 MAGNESIUM mg/dL 2.3 2.5 2.7* 2.7* 2.6 PHOSPHORUS mg/dL 4.7 4.8 4.7 4.7 4.7 Results from last 7 days Lab Units 06/21/25 0610 06/20/25 0611 06/19/25 0601 06/18/25 0555 06/17/25 0608 WBC x10E9/L 5.0 4.6 5.6 5.5 5.5 HEMOGLOBIN g/dL 13.2 13.3 13.4 13.6 14.1 HEMATOCRIT % 38.9* 39.3 39.3 39.6 41.0 PLATELETS X10E9/L 270 245 225 225 237 Results from last 7 days Lab Units 06/21/25 0610 06/20/25 0611 06/19/25 0601 06/18/25 0555 06/17/25 0608 PROTEIN TOTAL g/dL 7.0 6.9 7.0 7.0 7.0 ALBUMIN g/dL 3.9 3.7 3.7 3.8 3.7 AST U/L 26 23 22 24 25 ALT U/L 24 27 27 29 Vas venous duplex lwr bilateral Result Date: 06/21/2025 Right: Limited visualization of veins in the thigh and calf due to excessive patient movement. Lower extremity deep veins are compressible with spontaneous phasic spectral Doppler waveforms; superficial small saphenous vein is compressible without intraluminal content. Non-visualized, absent or surgically harvested Great saphenous superficial vein in the thigh and calf. Left: Limited visualization of veins in the thigh and calf due to excessive patient movement. Lower extremity deep veins are compressible with spontaneous phasic spectral Doppler waveforms; superficial small saphenous vein is compressible without intraluminal content. Non-visualized, absent or surgically harvested Great saphe nous superficial vein in the thigh and calf. Recommendations: Any questions prior to finalization, please call the reading physician during normal business hours at the phone number beside their name. RENITA MATSON D.O. [facility] Thank you for your consultation and allowing us to participate in the care of Gianni Youngbloodorquidea please do not hesitate to call us with any questions at: Office: [phone] Office Answering Service: [phone] Please feel free to contact me through [email or web address] Secure chat during the daytime hours, if no response after 5 minutes then call the answering service. This note was created with the assistance of a speech-recognition program. Although the intention is to generate a document that actually reflects the content of the visit, no guarantees can be provided that every mistake has been identified and corrected by editing. * Mable Butt MD - 06/21/2025 11:30 AM EDT Neurovascular / Interventional neurology Intraparenchymal Hemorrhage Progress Note Date of admission 06/04/2025 5:25 PM PCP: SIENNA BARRIENTOS Reason of admission: IPH Deficit: AMS Last known well: Unclear, some time on 06/03/25 Patient seen at: ED Initial NIHSS: 9 Premorbid mRS: 0 Initial imaging: R Thalamic IPH with IVH ICH Score: 2 Initial BP reported: 134/83 Interval: Patient was seen and examined at bedside this morning. He remains afebrile and vitally stable. Labsare remarkable for Na 148. He was agitated overnight, for which he was given Zyprexa. He remains onSeroquel 25 mg nightly for agitation. Patient seemed more lethargic today, repeat CT head was stable. Restarting patient's Eliquis was discussed with the vascular surgery team who recommend that it is usually a common practice to give anticoagulant medication for 3 months in the setting of unprovokedDVTs, however in the patient's case the resumption of AC can be discussed in the outpatient settingafter discharge and repeating duplex. Subjective: Gianni Babin is a 70 y.o. male who initially presented to an outside hospital and thereafter was transferred to [facility] via air. Past medical history significant for hypertension, DM, HLD,Obesity, DM2, recent DVT on Eliquis. Per chart review, the patient was initially taken to an outside hospital ED by EMS for evaluation of altered mental status. The patient was not aware of where he was, what year it was or who the president was. Imaging studies were done at the outside hospital including CT brain which showed 2.3 cm right thalamic hemorrhage with intraventricular extension. He was on Eliquis due to recent DVT and started on Eliquis. In the ED Kcentra was given for reversal of Eliquis. He was also given Keppra 2g at the outside hospital and started on Cardene infusion. The patient was accepted by the trauma service and transferred to [facility]. Upon arrival to [facility] ED, vascular neurology consulted. Upon my evaluation the patient is currently on room air. He appears to be confused, answering questions but incorrectly. He is able to follow commands intermittently. The patient has stable blood pressure, currently 119/80. According to the family he had an episode of fall 3 days back. However, themain onset of confusion was this morning. Past medical history: DVT on Eliquis, HTN, HLD, Obesity, DM2 Home medications: Eliquis, Aspirin, Lipitor, Lisinopril, Metformin Social history: Daily alcohol drinker, chronic smoking Home medications: Medications Prior to Admission Medication Sig Dispense Refill Last Dose/Taking aspirin 81 mg Take 1 tablet (81 mg total) by mouth in the morning. Taking atorvastatin (LIPITOR) 20 mg tablet Take 1 tablet (20 mg total) by mouth every morning. TAKE 1 TABLET (20 MG) BY MOUTH IN THE MORNING Taking ELIQUIS 5 mg tablet Take 1 tablet (5 mg total) by mouth in the morning and 1 tablet (5 mg total) before bedtime. Taking fenofibrate (LOFIBRA) 160 mg tablet Take 1 tablet (160 mg total) by mouth in the morning. Taking lisinopriL (PRINIVIL,ZESTRIL) 40 mg tablet Take 1 tablet (40 mg total) by mouth in the morning. Taking magnesium aspart,citrate,oxide (TRIPLE MAGNESIUM COMPLEX) 400 mg magnesium capsule Take 400 mg by mouth in the morning. Taking metFORMIN (GLUCOPHAGE) 1000 mg tablet Take 1 tablet (1,000 mg total) by mouth in the morning and 1 tablet (1,000 mg total) in the evening. Take with meals. Taking ACCU-CHEK GUIDE ME GLUCOSE MTR misc USE DAILY OR DIRECTED FOR MONITORING OF DIABETES. ACCU-CHEK GUIDE TEST STRIPS strip USE DAILY ACCU-CHEK SOFTCLIX LANCETS lancets USE TO TEST DAILY Past medical history: Past Medical History: Diagnosis Date Diabetes mellitus type 2, controlled ([facility]) DVT (deep venous thrombosis) ([facility]) GERD (gastroesophageal reflux disease) Hyperlipidemia Hypertension ICH (intracerebral hemorrhage) ([facility]) 06/04/2025 Osteoarthritis Past surgical history: Past Surgical History: Procedure Laterality Date TONSILLECTOMY TOTAL HIP ARTHROPLASTY 06/2010 Family history: Hefamily history includes Heart attack in his father; Leukemia in his mother; Lymphoma in his mother; Pancreatic cancer in his father. Allergies: Hehas no known allergies. Social history: Social History Socioeconomic History Marital status: Spouse name: Not on file Number of children: Not on file Years of education: Not on file Highest education level: Not on file Occupational History Not on file Tobacco Use Smoking status: Every Day Current packs/day: 1.00 Average packs/day: 1 pack/day for 52.8 years (52.8 ttl pk-yrs) Types: Cigarettes Start date: 1972 Smokeless tobacco: Never Substance and Sexual Activity Alcohol use: Yes Drug use: Never Sexual activity: Not on file Other Topics Concern Not on file Social History Narrative Not on file Social Drivers of Health Financial Resource Strain: Not on file Food Insecurity: No Food Insecurity (06/11/2025) Hunger Screening Food Insecurity - Worry: Never True Food Insecurity - Inability: Never True Transportation Needs: No Transportation Needs (06/05/2025) PRAPARE - Transportation Lack of Transportation (Medical): No Lack of Transportation (Non-Medical): No Physical Activity: Not on file Stress: Not on file Social Connections: Not on file Interpersonal Safety: Patient Unable To Answer (06/05/2025) Humiliation, Afraid, Rape, and Kick questionnaire Fear of Current or Ex-Partner: Patient unable to answer Emotionally Abused: Patient unable to answer Physically Abused: Patient unable to answer Sexually Abused: Patient unable to answer Housing Instability: Low Risk (06/05/2025) Housing Instability Housing Instability: No Physical exam: Vital Signs: Blood pressure 121/72, pulse 79, temperature 36.7 ??C (98.1 ??F), temperature source Oral, resp. rate 16, height 182.9 cm (6'), weight 98.9 kg (218 lb 0.6 oz), SpO2 97%. Respiratory Source: O2 Device: None (Room air) Admission Weight: Weight: 117.3 kg (258 lb 9.6 oz) NIHSS: 1a Level of consciousness: 1=not alert but arousable by minor stimulation to obey, answer or respond 1b. LOC questions: 2=Performs neither task correctly 1c. LOC commands: 2=Performs neither task correctly 2. Best Gaze: 0=normal 3. Visual: 1=Partial hemianopia 4. Facial Palsy: 0=Normal symmetric movement 5a. Motor left arm: 0=No drift, limb holds 90 (or 45) degrees for full 10 seconds 5b. Motor right arm: 0=No drift, limb holds 90 (or 45) degrees for full 10 seconds 6a. motor left le=No drift, limb holds 90 (or 45) degrees for full 10 seconds 6b Motor right le=No drift, limb holds 90 (or 45) degrees for full 10 seconds 7. Limb Ataxia: 0=Absent 8. Sensory: 0=Normal; no sensory loss 9. Best Language: 1=Mild to moderate aphasia; some obvious loss of fluency or facility of comprehension without significant limitation on ideas expressed or form of expression. 10. Dysarthria: 1=Mild to moderate, patient slurs at least some words and at worst, can be understood with some difficulty 11. Extinction and Inattention: 0=No abnormality Total: 8 Labs/Imaging: Objective Lab work/Imaging: Lab Results Component Value Date HGBA1C 8.3 (H) 06/07/2025 CALCIUM 9.5 06/21/2025 K 4.8 06/21/2025 CO2 21 (L) 06/21/2025 BUN 40 (H) 06/21/2025 CREATININE 1.68 (H) 06/21/2025 Lab Results Component Value Date WBC 5.0 06/21/2025 HGB 13.2 06/21/2025 MCV 94 06/21/2025 PLT 270 06/21/2025 Lab Results Component Value Date INR 1.5 (H) 06/04/2025 No results found for: LDL , CHOLESTEROLT Imaging: No results found. Assessment: 70 years old male with past medical history of hypertension, hyperlipidemia, diabetes, obesity, recent DVT (on Eliquis) who had an episode of fall 3 days ago. Later on, the patient had an acute onsetof confusion in the morning and was taken to an outside hospital. CT head showed intraparenchymal hemorrhage and therefore the patient was transferred to [facility] for further workup. On examination, the patient was confused but no significant motor deficits at that time. They were admitted to the ICU for workup. MRI brain on 06/07: redemonstrated right thalamic hematoma with intraventricular extension Impression: R IPH with intra-ventricular extension, likely 2/2 HTN (ICH score 2) Others: Unprovoked DVT, plans for weekly duplex Possible ureteral stent placement, urology on board Plan: - Continue care on the intermediate floor with stroke service. - Urology wants to do inpatient procedure pending clearance from neurology attending on service. Dr. Shanks spoke with Dr. Mann on phone, will recommend holding off any procedures atleast 10 days after discharge for now. - Appears encephalopathic, UA positive for LE, continue ceftriaxone course for UTI. - Patient seemed more lethargic, repeat CT head was stable. - Continue nightly Seroquel 25mg. - Resumed home aspirin 81mg OD. - Antithrombotic plans: Patient to follow-up with vascular surgery in the outpatient setting and based on further duplex studies get their advice regarding need for therapy and resumption. - Currently on NaCL 0.45% 50cc/hour. Nephrology on board, appreciate recommendations and management. - Weekly duplex of LE to monitor and DVT prophylaxis per vascular surgery recommended - Fluctuating blood glucose levels after feeds, endocrinology on board, appreciate recommendations and management. - Nephrology on board for blood pressure medication adjustments and CKD. Currently on coreg, amlodipine, lasix, lisinopril. - Considering patient is chronic alcoholic and slow in communication, completed thiamine 500mg TID course. - vEEG discontinued on 06/06. Levetiracetam levels therapeutic. - Given Keppra due to provoked seizure at the outside hospital. Completed a 7 day course. - Target SBP 130-150. PRN Hydralazine and labetalol - Will need outpatient evaluation for SOFIA. - Code status: Full - Dispo: SNF - DVT px: Heparin 5000U TID Staffed with: Dr. Rmima Butt MD PGY-2 Neurology Resident 06/21/25 11:30 AM Cosigned by Chris Shanks MD at 06/21/2025 10:11 PM EDT Associated attestation - Chris Shanks MD - 06/21/2025 10:11 PM EDT Patient seen & examined in conjunction with PGy3. I have reviewed and agree with the HPI, Past/Family/Social histories, ROS, examination, assessment and plan as outlined in the H&P/consultation note above. * BRANDON Barahona - 06/20/2025 2:03 PM EDT NUTRITION ADULT FOLLOW UP NUTRITION ASSESSMENT: Patient History: Brief Clinical Summary: Pt admitted for ICH. . Past medical history significant for hypertension, DM, HLD, Obesity, DM2, recent DVT on Eliquis. Renal following. NOTE IVF has been discontinued. Biochemical Data, Medical Tests, and Procedures: 06/06- failed BSSE 06/08- BLOCK HACKER still with NPO recs NGT placed 06/11- pulled out NGT 06/12- VFSS- passed for pureed no oral fluids 06/14- VFSS- level 3 liquids pureed solids Labs: Results from last 3 days Lab Units 06/20/25 0611 06/19/25 0601 06/18/25 0555 SODIUM mmol/L 146 144 143 POTASSIUM mmol/L 4.6 4.7 4.4 CHLORIDE mmol/L 114* 112* 110* CO2 mmol/L 23 23 23 BUN mg/dL 47* 55* 55* CREATININE mg/dL 1.71* 1.90* 2.04* CALCIUM mg/dL 9.6 9.6 9.5 ALBUMIN g/dL 3.7 3.7 3.8 ALK PHOS U/L 82 87 89 ALT U/L 24 27 27 AST U/L 23 22 24 Results from last 7 days Lab Units 06/20/25 1152 06/20/25 0721 06/20/25 0611 06/19/25 2105 06/19/25 1209 06/19/25 0719 06/19/25 0601 BEDSIDE GLUCOSE mg/dL 223* 153* -- 169* 157* 147* -- GLUCOSE mg/dL -- -- 141* -- -- -- 157* Results from last 3 days Lab Units 06/20/25 0611 06/19/25 0601 06/18/25 0555 WBC x10E9/L 4.6 5.6 5.5 HEMOGLOBIN g/dL 13.3 13.4 13.6 HEMATOCRIT % 39.3 39.3 39.6 PLATELETS X10E9/L 245 225 225 MCV fL 93 93 93 Results from last 3 days Lab Units 06/20/25 0611 06/19/25 0601 06/18/25 0555 MAGNESIUM mg/dL 2.5 2.7* 2.7* Results from last 3 days Lab Units 06/20/25 0611 06/19/25 0601 06/18/25 0555 PHOSPHORUS mg/dL 4.8 4.7 4.7 CALCIUM, IONIZED mg/dL 5.0 5.0 5.0 Results from last 3 days Lab Units 06/20/25 0611 06/19/25 0601 06/18/25 0555 BILIRUBIN, TOTAL mg/dL 0.5 0.5 0.6 Lab Results Component Value Date HGBA1C 8.3 (H) 06/07/2025 Lab Results Component Value Date IRON 55 06/07/2025 TIBC 314 06/07/2025 FERRITIN 127 06/07/2025 Lab Results Component Value Date IRONSAT 18 (L) 06/07/2025 Lab Results Component Value Date CHOL 155 06/05/2025 Lab Results Component Value Date CHDL 5.0 06/05/2025 Lab Results Component Value Date HDL 31 (L) 06/05/2025 Lab Results Component Value Date LDLCALC 77 06/05/2025 Lab Results Component Value Date TRIG 237 (H) 06/05/2025 Lab Results Component Value Date VERYLOWLIP 47 (H) 06/05/2025 Lab Results Component Value Date [id number] 274 06/07/2025 Lab Results Component Value Date FOLATE 11.1 06/07/2025 No results found for: VITD25 Comments (labs): reviewed K 5.1 Medications/ Parenteral: Mag oxide Current Facility-Administered Medications Medication Dose Route Frequency Provider Last Rate Last Admin amLODIPine (NORVASC) tablet 10 mg 10 mg oral Daily Alphonse Cuenca MD 10 mg at 06/20/25 1019 aspirin EC tablet 81 mg 81 mg oral Daily Alphonse Cuenca MD 81 mg at 06/20/25 1019 atorvastatin (LIPITOR) tablet 20 mg 20 mg oral Nightly Mable Butt MD 20 mg at 06/19/252101 barium sulfate (E-Z-HD) 98 % suspension 340 g 340 g oral Once in imaging Patricia Mcclellan MD barium sulfate (VARIBAR HONEY) 40 % (w/v) 29% (w/w) suspension 60 mL 60 mL oral Once in imaging Patricia Mcclellan MD barium sulfate (VARIBAR PUDDING) 40 % (w/v), 30% (w/w) oral paste 60 mL 60 mL oral Once in imaging Patricia Mcclellan MD calcium gluconate 3,000 mg in sodium chloride 0.9 % 100 mL IVPB 3,000 mg intravenous PRN Adan Plasencia MD calcium gluconate 4,000 mg in sodium chloride 0.9 % 250 mL IVPB 4,000 mg intravenous PRN Adan Plasencia MD calcium gluconate IVPB 2000 mg/100 mL (20 mg/mL premix) 2,000 mg intravenous PRN Adan Plasencia MD carvediloL (COREG) tablet 12.5 mg 12.5 mg oral BID Vidhit Yuko, DO 12.5 mg at 06/20/25 1019 cefTRIAXone (ROCEPHIN) 1,000 mg in sodium chloride 0.9 % 50 mL IVPB W/ADAPTER 1,000 mg intravenous Q24H Alphonse Cuenca MD Stopped at 06/19/25 1823 dextrose (GLUTOSE) 40 % gel 15 g 15 g oral PRN Alphonse Cuenca MD dextrose 5 % (D5W) infusion 100 mL/hr intravenous Continuous PRN Alphonse Cuenca MD dextrose 50 % in water (D50W) 50% solution 25 mL 25 mL intravenous PRN Alphonse Cuenca MD glucagon HCL injection 1 mg 1 mg intramuscular PRN Alphonse Cuenca MD heparin (porcine) injection 5,000 Units 5,000 Units subcutaneous Q8H [facility] Alphonse Cuenca MD 5,000 Units at 06/20/25 1332 hydrALAZINE (APRESOLINE) injection 10 mg 10 mg intravenous Q4H PRN Alphonse Cuenca MD 10 mg at 06/05/25 1430 hydrALAZINE (APRESOLINE) tablet 100 mg 100 mg oral Q8H [facility] Vidhit Yuko, DO 100 mg at 06/20/25 1332 insulin glargine (LANTUS, SEMGLEE) injection pen 12 Units 12 Units subcutaneous Daily Katrin Jules MD 12 Units at 06/20/25 1022 insulin lispro (HumaLOG) injection 1-10 Units 1-10 Units subcutaneous With meals and nightly Henry Chi MD 10 Units at 06/20/25 1329 insulin lispro (HumaLOG) injection 1-5 Units 1-5 Units subcutaneous With meals and nightly Lux Anglin MD 2 Units at 06/20/25 1329 kit prep Tc 99m-pentetic acid 20 mg recon soln 5 millicurie 5 millicurie intravenous Once in imaging Patricia Mcclellan MD labetaloL (NORMODYNE,TRANDATE) injection 10 mg 10 mg intravenous Q5 Min PRN Alphonse Cuenca MD 10 mgat 06/10/25 1927 magnesium sulfate IVPB 2000 mg/50 mL in iso-osmotic water (40 mg/mL premix) 2,000 mg intravenous PRN Alphonse Cuenca MD Stopped at 06/11/25 0643 Or magnesium sulfate IVPB 4000 mg/100 mL in iso-osmotic water (40 mg/mL premix) 4,000 mg intravenous PRN Alphonse Cuenca MD melatonin (CIRCADIN) tablet 5 mg 5 mg oral Nightly Mable Butt MD 5 mg at 06/19/25 2200 potassium chloride (K-TAB,KLOR-CON) CR tablet 20-60 mEq 20-60 mEq oral PRN Adan Plasencia MD Or potassium chloride (KAYCIEL) 20 mEq/15 mL solution 20-60 mEq 20-60 mEq oral PRN Adan Plasencia MD Or potassium chloride IVPB 10 mEq/100 mL in water (0.1 mEq/mL premix) 10 mEq intravenous PRN Adan Plasencia MD QUEtiapine (SEROquel) tablet 25 mg 25 mg oral Nightly Alphonse Cuenca MD 25 mg at 06/19/25 210 sodium phosphate 20 mmol in sodium chloride 0.9 % 250 mL IVPB 20 mmol intravenous PRN Adan Plasencia MD Or sodium phosphate 20 mmol in sodium chloride 0.9 % 100 mL IVPB 20 mmol intravenous PRN Adan Plasencia MD Or sod phos di, mono-K phos mono (K-PHOS NEUTRAL) 250 mg tablet 2 tablet 2 tablet oral PRN Adan Plasencia MD sodium chloride 0.45 % infusion 50 mL/hr intravenous Continuous Adan Plasencia MD 50 mL/hr at 06/20/25 0551 50 mL/hr at 06/20/25 0551 Nutrition Focused Physical Findings 06/19- stools 2175ml UO Skin (per nursing flow sheets): Skin Color: [place]; Pale (06/20/25 1200) Skin Temp: Dry (06/20/25 1200) Wound (per nursing flow sheets): Gastrointestinal (per nursing flow sheets): Abdomen Assessment: Soft; Nondistended (06/20/25 1200) Last BM Date: 06/20/25 (06/20/25 1000) Passing Flatus: Yes (06/17/25 0800) RUQ Bowel Sounds: Active (06/20/25 1200) LUQ Bowel Sounds: Active (06/20/25 1200) RLQ Bowel Sounds: Active (06/20/25 1200) LLQ Bowel Sounds: Active (06/20/25 1200) GI Symptoms: None (06/17/25 0800) Edema (per nursing flow sheets): Generalized Edema: +1 (06/20/25 1200) RUE Edema: +1 (06/20/25 1200) LUE Edema: +1 (06/20/25 1200) RLE Edema: +2 (06/20/25 1200) LLE Edema: +2 (06/20/25 1200) Intake/ Output Last 24 hrs: Intake/Output Summary (Last 24 hours) at 06/20/2025 1404 Last data filed at 06/20/2025 1000 Gross per 24 hour Intake -- Output 2675 ml Net -2675 ml Food/Nutrition Related History: Diet/ Nutrition Order Review: Dietary Orders (From admission, onward) Start Ordered 06/19/25 1619 Adult diet Level 4 Pureed diet; Level 3 Moderately Thick Diet effective now Question Answer Comment Diet Type: Level 4 Pureed diet Liquid Modifiers: Level 3 Moderately Thick 06/19/25 1619 06/14/25 1054 Adult nutrition supplements Continuous Question Answer Comment Diet Type or Consistency: Level 4 Pureed diet Select Supplement: Thick Frozen Dessert Supplement Frequency: TID 10/23/25 1053 Inpatient Nutrition Support History: 06/06- TF started 06/12- TF stopped with pulling of NGT 06/12- oral diet started NO oral fluids magic cups added 06/14- pureed diet with moderately thick liquids Anthropometrics: Ht Readings from Last 1 Encounters: 06/12/25 182.9 cm (6') Last 3 Weight Readings 06/16/25 0500 06/17/25 0500 06/18/25 0500 Weight: 101.7 kg (224 lb 3.3 oz) 100.4 kg (221 lb 5.5 oz) 100.2 kg (221 lb) Current 101.2kg ( 06/11) Admit Weight: 117.3kg (Bed Scale, 06/04) [place] Body Weight: 80.9kg Weight Changes: - Admit Body Mass Index: 35.1 kg/m??. Current Body Mass Index: Body mass index is 29.97 kg/m??. Comparative Standards: Estimated Energy Needs: 7972-6167 kcals daily. Method and weight used: 25-32 kcal/kg ibw Estimated Protein Needs: 97-160 grams daily. Method and weight used: 1.2-2g protein/kg ibw Estimated Fluid Needs: 9529-6979 ml daily. Method weight used: 1 ml/kg/kcal Comments: general needs Malnutrition Status: Malnutrition Present: not with information reviewed NUTRITION DIAGNOSIS: Intake Diagnosis: Inadequate oral intake (NI 2.1) -progressing NUTRITION INTERVENTIONS: Meals/Snacks-will add magic cups to trays, pt is taking his pureed diet very well. Supplements- will also add Ensure plus TID for 350 kcal and 20 g protein per serving ( thickened) GOAL(S): pt to receive estimated nutrition needs NUTRITION MONITORING AND EVALUATION: I/O,wts, labs, supplements, POC Pippa Cowart R.D,L.D. Clinical dietitian Patient Touch extension:[phone] Direct Dial phone number: [phone] 06/20/25 2:22 PM * Lux Anglin MD - 06/20/2025 1:00 PM EDT Images from the original note were not included. [facility] Academic Endocrin[facility] [place] [facility] [address] [place] [address] Service Pager: Reinier Patel MD, Interim Chief MD Henry Mulligan MD Margo Joubran, CASSANDRA Bettencourt, CASSANDRA Marmolejo MD, Fellow Herbie Zhao MD, Fellow Ricardo Real MD, Fellow Katrin Jules MD, Fellow NO NEED to PAGE for NEW CONSULTS Secure Giving Assistant chat to Academic Endocrinology Page for immediate attention. Diabetes Management Service Progress Note Patient : Gianni Babin; 70 y.o. Location: [facility] Admit Date: 06/04/2025 Hospital Day: Hospital Day: 17 Reason for Consult: Diabetes management Assessment/Plan Blood Glucose Monitoring Results, Interpretation Results from last 7 days Lab Units 06/20/25 1152 06/20/25 0721 06/20/25 0611 06/19/25 2105 06/19/25 1209 06/19/25 0719 06/19/25 0601 06/18/25 2148 BEDSIDE GLUCOSE mg/dL 223* 153* -- 169* 157* 147* -- 109* GLUCOSE mg/dL -- -- 141* -- -- -- 157* -- Results/Impression/Conclusion: [] Basal/Bolus insulin imbalance with significant glycemic variability: consider adjusting basal insulin-bolus insulin ratio close to 50%-50% of TDD (total daily insulin) [] Overnight blood glucose reduction: consider decreasing basal insulin (Lantus) or bedtime correctional insulin (Humalog) [] Fasting hypoglycemia: consider decreasing basal insulin (Lantus) or bedtime correctional insulin(Humalog) [] Postprandial hypoglyemia: consider decreasing prandial or meal insulin (Humalog) after [] breakfast [] lunch [] evening meal [] nighttime snack [] Hypoglycemia due to over-correction [x] Fasting hyperglycemia: consider increasing basal insulin (Lantus) [x] Postprandial hyperglycemia: consider increasing prandial or meal insulin (Humalog) after [x] breakfast [] lunch [] evening meal [] nighttime snack [] Hyperglycemia due to missing or improper timing of the scheduled dose of insulin/glucose-lowering medication Generally, change insulin by 10 to 30 % depending on the severity of glycemic excursions. For noncritically ill individuals (those not in the ICU), a glycemic goal of 100-180 mg/dL (premeal<140 mg/dL) is recommended. For most critically ill individuals (those in the ICU), a glycemic goal of 140- 180 mg/dL is recommended. For selected individuals (e.g., those undergoing cardiac surgery), more stringent glycemic goals (110-140 mg/dL) may be appropriate. Blood glucoses above 200 mg/dl are [facility] monitored performance measures. ASSESSMENT and PLAN: Gianni Babin has diabetes mellitus type 2 complicated by cardiovascular disease. Admitted with Intracerebral hemorrhage.. 1. Hypoglycemia due to current illness -Tube feeding discontinued on 06/12/25 -Patient on Pureed diet. -Will continue the same regimen of insulin since fasting glucose responded to increasing insulin lantus to 12 units nightly. 2. DM Type 2 with hyperglycemia Last HbA1c: Lab Results Component Value Date HGBA1C 8.3 (H) 06/07/2025 Results from last 7 days Lab Units 06/20/25 0611 CREATININE mg/dL 1.71* EGFR (CKD-EPI) NON-RACE DEPENDENT ml/min/1.73sq.m 43* [x] Unstable-Improving but further adjustment needed as below [] Unstable-Worse and significant adjustment needed as below [] Stable and no changes needed The following changes were made: Basal insulin: Glargine (or Lantus) : _12_units, (increased from 10 units) [] daily AM [x] daily at bedtime [] BID (9 AM, 9 PM) Prandial or meal insulin: Lispro (or Humalog) [x] by insulin to carb ratio = _1_units: 10 grams of carbohydrate in a meal AC [] _ _ units every 4 hours for continuous tube feeding (Provide ~30% of TDI as basal insulin) Correctional insulin: Lispro (or Humalog): [x] 1-5 AC (above 150), 1-4 HS (above 200) [] 2-10 AC (above 150), 2-8 HS (above 200) [] 3-15 AC (above 150), 3-12 HS (above 200) For while NPO or tube feeding or TPN [] 1-5 q4h (above 180) [] 2-10 q4h (above 180) [] 3-15 q4h (above 180) Thank you for consulting our Diabetes Management Team (Endocrinology). We will continue to follow up. Subjective Chief Complaint Patient presents with Fall Mr Archer was seen at bedside with fellow and attending, he is looking same in terms of his orientation , his speech is partially understate and not corresponds exactly to the question asked . His blood glucose was 141 and 153 in morning indicating good response to increasing the lomg actinginsulin. History: Gianni Babin is a 70-year-old male known case of hypertension, hyperlipidemia, DM type 2 admitted with a complaint of fall and had an intracranial hemorrhage found to be at the site of the right thalamic area and ventricular extension of the bleed. The patient was consulted for the diabetic management, he did not follow any electrical parts reconditioner in thecompliance with the metformin is questionable. No use of insulin previously. A1c is 8.3 on June 07, 2025. ROS/Subjective/Interval history: Patient is pleasantly confused Food intake: [x] Good [] Decreased [] Poor [] NPO Symptom Yes No Comment Hypoglycemia [] [x] When: Decreased appetite [] [x] Nausea [] [x] Vomiting [] [x] Abdominal discomfort/pain [] [x] Review of Systems Constitutional: Negative for activity change, fatigue and fever. HENT: Negative for congestion and drooling. Respiratory: Negative for apnea and choking. Cardiovascular: Negative for chest pain and leg swelling. Gastrointestinal: Negative for abdominal distention and abdominal pain. Endocrine: Negative for polydipsia, polyphagia and polyuria. Psychiatric/Behavioral: Positive for confusion. Objective Physical Exam: BP 115/69 Pulse 65 Temp 36.9 ??C (98.5 ??F) (Oral) Resp 13 Ht 182.9 cm (6') Wt 100.2 kg (221 lb) SpO2 97% BMI 29.97 kg/m?? Physical Exam HENT: Head: Normocephalic. Nose: Nose normal. Mouth/Throat: Mouth: Mucous membranes are moist. Cardiovascular: Rate and Rhythm: Normal rate. Pulses: Normal pulses. Heart sounds: Normal heart sounds. Pulmonary: Effort: Pulmonary effort is normal. Abdominal: Palpations: Abdomen is soft. Musculoskeletal: General: Normal range of motion. Cervical back: Normal range of motion. Skin: General: Skin is warm. Neurological: Mental Status: He is alert. Comments: Not oriented Psychiatric: Mood and Affect: Mood normal. Intake/Output: Intake/Output Summary (Last 24 hours) at 06/20/2025 1459 Last data filed at 06/20/2025 1000 Gross per 24 hour Intake -- Output 2675 ml Net -2675 ml Steroids / Other Glycemia-Affecting Medications: [No] Diet/Nutrition: Dietary Orders (From admission, onward) Start Ordered 06/20/25 1431 Adult nutrition supplements Continuous Question Answer Comment Diet Type or Consistency: Level 4 Pureed diet Select Supplement: Standard House Supplement 8 oz Supplement Frequency: TID 06/20/25 1431 06/19/25 1619 Adult diet Level 4 Pureed diet; Level 3 Moderately Thick Diet effective now Question Answer Comment Diet Type: Level 4 Pureed diet Liquid Modifiers: Level 3 Moderately Thick 06/19/25 1619 06/14/25 1054 Adult nutrition supplements Continuous Question Answer Comment Diet Type or Consistency: Level 4 Pureed diet Select Supplement: Thick Frozen Dessert Supplement Frequency: TID 06/14/25 1053 Recent Labs: Results from last 7 days Lab Units 06/20/25 0611 06/19/25 0601 06/18/25 0555 06/17/25 0608 06/16/25 0548 WBC x10E9/L 4.6 5.6 5.5 5.5 5.5 HEMOGLOBIN g/dL 13.3 13.4 13.6 14.1 13.2 HEMATOCRIT % 39.3 39.3 39.6 41.0 38.8* PLATELETS X10E9/L 245 225 225 237 213 Results from last 7 days Lab Units 06/20/25 0611 06/19/25 0601 06/18/25 0555 06/17/25 0608 06/16/25 0548 SODIUM mmol/L 146 144 143 141 145 POTASSIUM mmol/L 4.6 4.7 4.4 4.3 4.8 CHLORIDE mmol/L 114* 112* 110* 110* 112* CO2 mmol/L 23 23 23 26 23 BUN mg/dL 47* 55* 55* 51* 54* CREATININE mg/dL 1.71* 1.90* 2.04* 1.99* 1.93* EGFR (CKD-EPI) NON-RACE DEPENDENT ml/min/1.73sq.m 43* 38* 35* 36* 37* CALCIUM mg/dL 9.6 9.6 9.5 9.4 9.3 Results from last 7 days Lab Units 06/20/25 0611 06/19/25 0601 06/18/25 0555 06/17/25 0608 06/16/25 0548 ALBUMIN g/dL 3.7 3.7 3.8 3.7 3.7 Last HbA1c: Lab Results Component Value Date HGBA1C 8.3 (H) 06/07/2025 Lux Anglin MD PGY 1 Internal Medicine [facility] Cosigned by Henry Godwin MD at 06/20/2025 3:53 PM EDT Associated attestation - Henry Godwin MD - 06/20/2025 3:53 PM EDT I have discussed the patient's history, exam findings and reviewed pertinent studies with Dr. Anglin. I personally evaluated this patient on the day of the encounter, performed dill portion(s) of the service, participated in the management and agree with overall evaluation plan as delineated above. I have the following additional comments: 70 year old male with T2DM admitted for ICH - We have maintained inpatient glucose lowering regimen as follows: Glargine 12 units daily + lispro CR 10 + STUART, potential modification if preprandial hyperglycemia persists We will continue to monitor blood glucose trends and adjust glucose lowering regimen as appropriate, while patient is in the hospital Henry Godwin MD 06/20/25 * Ed Ortiz MD - 06/20/2025 11:52 AM EDT Images from the original note were not included. Nephrology Daily Progress Note INTERVAL HISTORY/History of present illness: Patient remained confused PROBLEM LIST: Acute kidney injury on Chronic kidney disease stage IIIA with baseline creatinine around 1.3-1.4 mg/dL: CT scan of abdomen pelvis with contrast on 06/04/2025 showed cortical scarring with significantcaliectasis and hydronephrosis right ureter is dilated down to the urinary bladder. Cortical scarring. Left kidney significant hydronephrosis and caliectasis no discrete cortical scarring. Renal ultrasound showed right hydronephrosis and mild left hydronephrosis. Urine protein to creatinine ratio is 1 g/g. Hepatitis panel and HIV are negative C3 is normal. C4 is on the high side which is 53. Rheumatoid factor is normal. Iuki-epgcag-iwfkaqcf DNA is negative. LUIZA is negative. Glomerular basement membrane antibodies are negative. SPEP is negative for M bands. Anca was negative. 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 VITAL SIGNS TREND: Vitals: 06/20/25 0715 06/20/25 1005 06/20/25 1020 06/20/25 1025 BP: 134/80 129/80 Pulse: 57 69 73 74 Resp: 14 13 17 16 Temp: TempSrc: SpO2: Weight: Height: INTAKE/OUTPUT: Intake/Output Summary (Last 24 hours) at 06/20/2025 1152 Last data filed at 06/20/2025 1000 Gross per 24 hour Intake -- Output 2675 ml Net -2675 ml I/O this shift: In: - Out: 500 [Urine:500] WEIGHT: Wt Readings from Last 3 Encounters: 06/18/25 100.2 kg (221 lb) 06/04/25 93 kg (205 lb) amLODIPine, 10 mg, oral, Daily aspirin, 81 mg, oral, Daily atorvastatin, 20 mg, oral, Nightly carvediloL, 12.5 mg, oral, BID cefTRIAXone (ROCEPHIN) IV, 1,000 mg, intravenous, Q24H heparin (porcine), 5,000 Units, subcutaneous, Q8H [place] hydrALAZINE, 100 mg, oral, Q8H [place] insulin glargine, 12 Units, subcutaneous, Daily insulin lispro, 1-10 Units, subcutaneous, With meals and nightly insulin lispro, 1-5 Units, subcutaneous, With meals and nightly melatonin, 5 mg, oral, Nightly QUEtiapine, 25 mg, oral, Nightly dextrose 5 % in water, 100 mL/hr sodium chloride, 50 mL/hr, Last Rate: 50 mL/hr (06/20/25 0551) PHYSICAL EXAM: Blood pressure 129/80, pulse 74, temperature 36.5 ??C (97.7 ??F), temperature source Oral, resp. rate 16, height 182.9 cm (6'), weight 100.2 kg (221 lb), SpO2 97%. Temp: [36.2 ??C (97.2 ??F)-36.8 ??C (98.3 ??F)] 36.5 ??C (97.7 ??F) Pulse: [57-78] 74 Resp: [13-23] 16 BP: (124-142)/(58-90) 129/80 SpO2: [94 %-97 %] 97 % O2 Device: None (Room air) General appearance: Confused. Lying in bed. HEENT: no JVD, no carotid bruits, no lymphadenopathy. Cardiovascular: normal S1-S2 Respiratory: clear to auscultation bilaterally Gastrointestinal: soft, no tenderness, no guarding, positive bowel sounds Musculoskeletal: no edema Skin : No Rash. Neuro: Awake but confused LABORATORY EVALUATION: Results from last 7 days Lab Units 06/20/25 0611 06/19/25 0601 06/18/25 0555 06/17/25 0608 06/16/25 0548 SODIUM mmol/L 146 144 143 141 145 POTASSIUM mmol/L 4.6 4.7 4.4 4.3 4.8 CHLORIDE mmol/L 114* 112* 110* 110* 112* CO2 mmol/L 23 23 23 26 23 BUN mg/dL 47* 55* 55* 51* 54* CREATININE mg/dL 1.71* 1.90* 2.04* 1.99* 1.93* CALCIUM mg/dL 9.6 9.6 9.5 9.4 9.3 MAGNESIUM mg/dL 2.5 2.7* 2.7* 2.6 2.6 PHOSPHORUS mg/dL 4.8 4.7 4.7 4.7 5.1* Results from last 7 days Lab Units 06/20/25 0611 06/19/25 0601 06/18/25 0555 06/17/25 0608 06/16/25 0548 WBC x10E9/L 4.6 5.6 5.5 5.5 5.5 HEMOGLOBIN g/dL 13.3 13.4 13.6 14.1 13.2 HEMATOCRIT % 39.3 39.3 39.6 41.0 38.8* PLATELETS X10E9/L 245 225 225 237 213 Results from last 7 days Lab Units 06/20/25 0611 06/19/25 0601 06/18/25 0555 06/17/25 0608 06/16/25 0548 PROTEIN TOTAL g/dL 6.9 7.0 7.0 7.0 6.9 ALBUMIN g/dL 3.7 3.7 3.8 3.7 3.7 AST U/L 23 22 24 25 32 ALT U/L 24 27 27 29 24 No results found. IMPRESSION: Acute Kidney Injuiry on Chronic kidney disease stage IIIA baseline creatinine is around 1.3-1.4 mg/dL. Creatinine is better today Bilateral hydronephrosis status post Mayo catheter placement. Renal ultrasound on [id number] showed bilateral hydronephrosis urology service is following. Renal scan showed no evidence of high-grade obstruction. Split renal function was 32% on the left and 68% on the right. Cysto with stent placement is pending Hypertensive emergency: Blood pressure is currently under good control Hypernatremia due to free water deficit. Improved Encephalopathy with intraparenchymal hemorrhage with intraventricular extension likely secondary tohypertensive emergency. Neuro interventional is following Plan : Continue with hypotonic IV fluid. Awaiting further input from Urology Replace electrolytes per scale Ed Ortiz M.D. [facility] Thank you for your consultation and allowing us to participate in the care of Gianni Montelongo please do not hesitate to call us with any questions at: Office: [phone] Office Answering Service: [phone] Please feel free to contact me through [email or web address] Secure chat during the daytime hours, if no response after 5 minutes then call the answering service. This note was created with the assistance of a speech-recognition program. Although the intention is to generate a document that actually reflects the content of the visit, no guarantees can be provided that every mistake has been identified and corrected by editing. * Alphonse Cuenca MD - 06/20/2025 8:57 AM EDT Neurovascular / Interventional neurology Intraparenchymal Hemorrhage Progress Note Date of admission 06/04/2025 5:25 PM PCP: SIENNA BARRIENTOS Reason of admission: IPH Deficit: AMS Last known well: Unclear, some time on 06/03/25 Patient seen at: ED Initial NIHSS: 9 Premorbid mRS: 0 Initial imaging: R Thalamic IPH with IVH ICH Score: 2 Initial BP reported: 134/83 Interval: Patient was seen and examined at bedside this morning. Vitals stable overnight, afebrile, CBC and CMP are stable. Discussed with team Urology yesterday and currently recommend no procedures requiringgeneral anesthesia for at least 10 days after discharge. Restarting patient's Eliquis was discussed with the vascular surgery team who recommend that it is usually a common practice to give anticoagulant medication for 3 months in the setting of unprovokedDVTs, however in the patient's case the resumption of AC can be discussed in the outpatient settingafter discharge and repeating duplex. Subjective: Gianni Babin is a 70 y.o. male who initially presented to an outside hospital and thereafter was transferred to [facility] via air. Past medical history significant for hypertension, DM, HLD,Obesity, DM2, recent DVT on Eliquis. Per chart review, the patient was initially taken to an outside hospital ED by EMS for evaluation of altered mental status. The patient was not aware of where he was, what year it was or who the president was. Imaging studies were done at the outside hospital including CT brain which showed 2.3 cm right thalamic hemorrhage with intraventricular extension. He was on Eliquis due to recent DVT and started on Eliquis. In the ED Kcentra was given for reversal of Eliquis. He was also given Keppra 2g at the outside hospital and started on Cardene infusion. The patient was accepted by the trauma service and transferred to [facility]. Upon arrival to [facility] ED, vascular neurology consulted. Upon my evaluation the patient is currently on room air. He appears to be confused, answering questions but incorrectly. He is able to follow commands intermittently. The patient has stable blood pressure, currently 119/80. According to the family he had an episode of fall 3 days back. However, themain onset of confusion was this morning. Past medical history: DVT on Eliquis, HTN, HLD, Obesity, DM2 Home medications: Eliquis, Aspirin, Lipitor, Lisinopril, Metformin Social history: Daily alcohol drinker, chronic smoking Home medications: Medications Prior to Admission Medication Sig Dispense Refill Last Dose/Taking aspirin 81 mg Take 1 tablet (81 mg total) by mouth in the morning. Taking atorvastatin (LIPITOR) 20 mg tablet Take 1 tablet (20 mg total) by mouth every morning. TAKE 1 TABLET (20 MG) BY MOUTH IN THE MORNING Taking ELIQUIS 5 mg tablet Take 1 tablet (5 mg total) by mouth in the morning and 1 tablet (5 mg total) before bedtime. Taking fenofibrate (LOFIBRA) 160 mg tablet Take 1 tablet (160 mg total) by mouth in the morning. Taking lisinopriL (PRINIVIL,ZESTRIL) 40 mg tablet Take 1 tablet (40 mg total) by mouth in the morning. Taking magnesium aspart,citrate,oxide (TRIPLE MAGNESIUM COMPLEX) 400 mg magnesium capsule Take 400 mg by mouth in the morning. Taking metFORMIN (GLUCOPHAGE) 1000 mg tablet Take 1 tablet (1,000 mg total) by mouth in the morning and 1 tablet (1,000 mg total) in the evening. Take with meals. Taking ACCU-CHEK GUIDE ME GLUCOSE MTR misc USE DAILY OR DIRECTED FOR MONITORING OF DIABETES. ACCU-CHEK GUIDE TEST STRIPS strip USE DAILY ACCU-CHEK SOFTCLIX LANCETS lancets USE TO TEST DAILY Past medical history: Past Medical History: Diagnosis Date Diabetes mellitus type 2, controlled ([facility]) DVT (deep venous thrombosis) ([facility]) GERD (gastroesophageal reflux disease) Hyperlipidemia Hypertension ICH (intracerebral hemorrhage) ([facility]) 06/04/2025 Osteoarthritis Past surgical history: Past Surgical History: Procedure Laterality Date TONSILLECTOMY TOTAL HIP ARTHROPLASTY 06/2010 Family history: Hefamily history includes Heart attack in his father; Leukemia in his mother; Lymphoma in his mother; Pancreatic cancer in his father. Allergies: Hehas no known allergies. Social history: Social History Socioeconomic History Marital status: Spouse name: Not on file Number of children: Not on file Years of education: Not on file Highest education level: Not on file Occupational History Not on file Tobacco Use Smoking status: Every Day Current packs/day: 1.00 Average packs/day: 1 pack/day for 52.8 years (52.8 ttl pk-yrs) Types: Cigarettes Start date: 1972 Smokeless tobacco: Never Substance and Sexual Activity Alcohol use: Yes Drug use: Never Sexual activity: Not on file Other Topics Concern Not on file Social History Narrative Not on file Social Drivers of Health Financial Resource Strain: Not on file Food Insecurity: No Food Insecurity (06/11/2025) Hunger Screening Food Insecurity - Worry: Never True Food Insecurity - Inability: Never True Transportation Needs: No Transportation Needs (06/05/2025) PRAPARE - Transportation Lack of Transportation (Medical): No Lack of Transportation (Non-Medical): No Physical Activity: Not on file Stress: Not on file Social Connections: Not on file Interpersonal Safety: Patient Unable To Answer (06/05/2025) Humiliation, Afraid, Rape, and Kick questionnaire Fear of Current or Ex-Partner: Patient unable to answer Emotionally Abused: Patient unable to answer Physically Abused: Patient unable to answer Sexually Abused: Patient unable to answer Housing Instability: Low Risk (06/05/2025) Housing Instability Housing Instability: No Physical exam: Vital Signs: Blood pressure 134/80, pulse 57, temperature 36.3 ??C (97.3 ??F), temperature source Oral, resp. rate 14, height 182.9 cm (6'), weight 100.2 kg (221 lb), SpO2 94%. Respiratory Source: O2 Device: None (Room air) Admission Weight: Weight: 117.3 kg (258 lb 9.6 oz) NIHSS: 1a Level of consciousness: 1=not alert but arousable by minor stimulation to obey, answer or respond 1b. LOC questions: 2=Performs neither task correctly 1c. LOC commands: 2=Performs neither task correctly 2. Best Gaze: 0=normal 3. Visual: 1=Partial hemianopia 4. Facial Palsy: 0=Normal symmetric movement 5a. Motor left arm: 0=No drift, limb holds 90 (or 45) degrees for full 10 seconds 5b. Motor right arm: 0=No drift, limb holds 90 (or 45) degrees for full 10 seconds 6a. motor left le=No drift, limb holds 90 (or 45) degrees for full 10 seconds 6b Motor right le=No drift, limb holds 90 (or 45) degrees for full 10 seconds 7. Limb Ataxia: 0=Absent 8. Sensory: 0=Normal; no sensory loss 9. Best Language: 1=Mild to moderate aphasia; some obvious loss of fluency or facility of comprehension without significant limitation on ideas expressed or form of expression. 10. Dysarthria: 1=Mild to moderate, patient slurs at least some words and at worst, can be understood with some difficulty 11. Extinction and Inattention: 0=No abnormality Total: 8 Labs/Imaging: Objective Lab work/Imaging: Lab Results Component Value Date HGBA1C 8.3 (H) 06/07/2025 CALCIUM 9.6 06/20/2025 K 4.6 06/20/2025 CO2 23 06/20/2025 BUN 47 (H) 06/20/2025 CREATININE 1.71 (H) 06/20/2025 Lab Results Component Value Date WBC 4.6 06/20/2025 HGB 13.3 06/20/2025 MCV 93 06/20/2025 PLT 245 06/20/2025 Lab Results Component Value Date INR 1.5 (H) 06/04/2025 No results found for: LDL , CHOLESTEROLT Imaging: No results found. Assessment: 70 years old male with past medical history of hypertension, hyperlipidemia, diabetes, obesity, recent DVT (on Eliquis) who had an episode of fall 3 days ago. Later on, the patient had an acute onsetof confusion in the morning and was taken to an outside hospital. CT head showed intraparenchymal hemorrhage and therefore the patient was transferred to [facility] for further workup. On examination, the patient was confused but no significant motor deficits at that time. They were admitted to the ICU for workup. MRI brain on 06/07: redemonstrated right thalamic hematoma with intraventricular extension Impression: R IPH with intra-ventricular extension, likely 2/2 HTN (ICH score 2) Others: Unprovoked DVT, plans for weekly duplex Possible ureteral stent placement, urology on board Plan: - Continue care on the intermediate floor with stroke service. - Urology wants to do inpatient procedure pending clearance from neurology attending on service. Dr. Shanks spoke with Dr. Mann on phone, will recommend holding off any procedures atleast 10 days after discharge for now. - Appears encephalopathic, UA positive for LE, continue ceftriaxone course for UTI. - Continue nightly Seroquel 25mg. - Resumed home aspirin 81mg OD. - Antithrombotic plans: Patient to follow-up with vascular surgery in the outpatient setting and based on further duplex studies get their advice regarding need for therapy and resumption. - Currently on NaCL 0.45% 50cc/hour. Nephrology on board, appreciate recommendations and management. - Weekly duplex of LE to monitor and DVT prophylaxis per vascular surgery recommended - Fluctuating blood glucose levels after feeds, endocrinology on board, appreciate recommendations and management. - Nephrology on board for blood pressure medication adjustments and CKD. Currently on coreg, amlodipine, lasix, lisinopril. - Considering patient is chronic alcoholic and slow in communication, completed thiamine 500mg TID course. - vEEG discontinued on 06/06. Levetiracetam levels therapeutic. - Given Keppra due to provoked seizure at the outside hospital. Completed a 7 day course. - Target SBP 130-150. PRN Hydralazine and labetalol - Will need outpatient evaluation for SOFIA. - Code status: Full - Dispo: SNF - DVT px: Heparin 5000U TID Staffed with: Dr. Rimma Cuenca MD PGY-3 Neurology Resident 06/20/25 8:58 AM Cosigned by Chris Shanks MD at 06/21/2025 10:11 PM EDT Associated attestation - Chris Shanks MD - 06/21/2025 10:11 PM EDT Patient seen & examined in conjunction with PGy3. I have reviewed and agree with the HPI, Past/Family/Social histories, ROS, examination, assessment and plan as outlined in the H&P/consultation note above. * Char Khoury MD - 06/20/2025 8:44 AM EDT Images from the original note were not included. Jr. Mackenzie, Kim Capone., Peter Bhatti M.D., Gianni Escalante M.D., Leatha Fajardo M.D., Candie Schreiber M.D., Carl Bess M.D., Raghu Davila M.D., Arash Lan M.D, Dk Tam M.D. Hospital day: 16 Chief Complaint: Bilateral hydroureteronephrosis Subjective: No acute overnight events reported to me. Vital signs stable and afebrile. Patient appeared confused and disorientated this morning. Mayo catheter draining clear yellow urine. Urine output last 24 hours, 2175 cc. On labs, no leukocytosis and hemoglobin stable. Creatinine further improved, 1.71 today. No new events reported. Impression: Patient is a 70-year-old male with past medical history of lobe of the left lower extremity DVT on chronic Eliquis, diabetes, and hypertension who presented to [facility] on 06/04/2025 due to altered mental status. Patient was noted to have an intra thalamic hemorrhage, secondary to a fall that same day. Additionally, CT imaging revealed bilateral hydroureteronephrosis, more pronounced on the left. Throughout this hospital admission, patient with a Mayo catheter and creatininewith initially increasing and then decreasing trend Mag 3 nuclear scan suggestive of left-sided obstruction Plan: Diet as tolerated Nausea and pain control via p.r.n. medication Trend creatinine Maintain Mayo catheter Monitor urine output Further plans of care pending interdisciplinary discussions, neurology input appreciated. Please see attending attestation from 06/19/25 Rest of medical management per primary and other consultants Patient Vitals for the past 24 hrs: BP Temp Temp src Pulse Resp SpO2 06/20/25 0715 134/80 -- -- 57 14 -- 06/20/25 0357 142/77 36.3 ??C (97.3 ??F) Oral 77 17 94 % 06/20/25 0300 -- -- -- 71 14 -- 06/19/25 2334 124/58 36.2 ??C (97.2 ??F) Oral 63 23 -- 06/19/25 1927 136/74 36.4 ??C (97.6 ??F) Oral 78 17 94 % 06/19/25 1514 133/73 36.8 ??C (98.3 ??F) Oral 61 16 94 % 06/19/25 1202 125/90 36.5 ??C (97.7 ??F) Oral 73 19 -- Intake/Output Summary (Last 24 hours) at 06/20/2025 0844 Last data filed at 06/20/2025 0300 Gross per 24 hour Intake -- Output 2175 ml Net -2175 ml Results from last 7 days Lab Units 06/20/25 0721 06/20/25 0611 06/19/25 0719 06/19/25 0601 WBC x10E9/L -- 4.6 -- 5.6 HEMOGLOBIN g/dL -- 13.3 -- 13.4 MCV fL -- 93 -- 93 MCHC g/dL -- 33.7 -- 34.0 PLATELETS X10E9/L -- 245 -- 225 SODIUM mmol/L -- 146 -- 144 POTASSIUM mmol/L -- 4.6 -- 4.7 PHOSPHORUS mg/dL -- 4.8 -- 4.7 CALCIUM mg/dL -- 9.6 -- 9.6 ANION GAP mmol/L -- 9 -- 9 CREATININE mg/dL -- 1.71* -- 1.90* BUN mg/dL -- 47* -- 55* BEDSIDE GLUCOSE mg/dL 153* -- < > -- GLUCOSE mg/dL -- 141* -- 157* ALBUMIN g/dL -- 3.7 -- 3.7 BILIRUBIN, TOTAL mg/dL -- 0.5 -- 0.5 AST U/L -- 23 -- 22 ALT U/L -- 24 -- 27 ALK PHOS U/L -- 82 -- 87 < > = values in this interval not displayed. Microbiology Results Procedure Component Value Units Date/Time Urine Culture Urine, Indwelling Catheter [[id number]] Collected: 06/17/25 1348 Specimen: Urine, Indwelling Catheter Updated: 06/18/25 1246 CULTURE RESULTS NO GROWTH AT <1000 CFU/mL Blood culture #1 [[id number]] Collected: 06/17/25 1320 Specimen: Blood, Venous Updated: 06/19/25 1401 CULTURE RESULTS NO GROWTH 2 DAYS Narrative: Suboptimal volume of blood collected, Results may be affected. Blood culture #2 [[id number]] Collected: 06/17/25 1320 Specimen: Blood, Venous Updated: 06/19/25 1401 CULTURE RESULTS NO GROWTH 2 DAYS Narrative: Suboptimal volume of blood collected, Results may be affected. Weight: 100.2 kg (221 lb) Results from last 7 days Lab Units 06/20/25 0721 06/20/25 0611 06/19/25 0719 06/19/25 0601 06/18/25 0750 06/18/25 0555 POTASSIUM mmol/L -- 4.6 -- 4.7 -- 4.4 CHLORIDE mmol/L -- 114* -- 112* -- 110* CO2 mmol/L -- 23 -- 23 -- 23 BUN mg/dL -- 47* -- 55* -- 55* CREATININE mg/dL -- 1.71* -- 1.90* -- 2.04* BEDSIDE GLUCOSE mg/dL 153* -- < > -- < > -- GLUCOSE mg/dL -- 141* -- 157* -- 144* CALCIUM mg/dL -- 9.6 -- 9.6 -- 9.5 < > = values in this interval not displayed. Results from last 7 days Lab Units 06/20/25 0611 06/19/25 0601 06/18/25 0555 WBC x10E9/L 4.6 5.6 5.5 HEMOGLOBIN g/dL 13.3 13.4 13.6 HEMATOCRIT % 39.3 39.3 39.6 PLATELETS X10E9/L 245 225 225 Lab Results Component Value Date SPECIFICGRA 1.015 06/17/2025 LEUKOCYTE Small (A) 06/17/2025 GLU 153 (H) 06/20/2025 UROBILINOGEN <1.1 eu/dL 06/17/2025 Additional Lab/culture results: Microbiology Results Procedure Component Value Units Date/Time Urine Culture Urine, Indwelling Catheter [[id number]] Collected: 06/17/25 1348 Specimen: Urine, Indwelling Catheter Updated: 06/18/25 1246 CULTURE RESULTS NO GROWTH AT <1000 CFU/mL Blood culture #1 [[id number]] Collected: 06/17/25 1320 Specimen: Blood, Venous Updated: 06/19/25 1401 CULTURE RESULTS NO GROWTH 2 DAYS Narrative: Suboptimal volume of blood collected, Results may be affected. Blood culture #2 [[id number]] Collected: 06/17/25 1320 Specimen: Blood, Venous Updated: 06/19/25 1401 CULTURE RESULTS NO GROWTH 2 DAYS Narrative: Suboptimal volume of blood collected, Results may be affected. Lab Results Component Value Date SPECIFICGRA 1.015 06/17/2025 LEUKOCYTE Small (A) 06/17/2025 GLU 153 (H) 06/20/2025 UROBILINOGEN <1.1 eu/dL 06/17/2025 Physical Exam: Constitutional: NAD. Chronically ill HEENT: NCAT, PERRLA, EOMI Card: RRR, extremities warm well perfused Pulm: no SOB, no increased WOB Abdominal: no tenderness, distension, pain. exam: no suprapubic tenderness, no flank pain. Mayo catheter in place, clear yellow urine MSK: no overt deformities Neuro: no focal deficits Interval Imaging Findings: X-ray chest 1 view Result Date: 06/17/2025 Narrative: Single view chest History:Sepsis Difficulty breathing, shortness of breath Comparison: 06/11/2025 Findings: Single portable view of the chest. Stable cardiac mediastinal silhouette. No newfocal opacity, effusion or pneumothorax. Impression: No definitive acute process. Finalized by Peter Sarabia MD on 06/17/2025 3:12 PM Vas venous duplex lwr bilateral Result Date: 06/15/2025 Narrative: Right: Limited visualization of veins in the thigh and calf due to body habitus and patient positioning. Lower extremity deep veins are compressible with spontaneous phasic spectral Doppler waveforms; superficial veins are compressible without intraluminal content. Left: Limited visualization of veins in the thigh and calf due to body habitus and patient positioning. Lower extremity deep veins are compressible with spontaneous phasic spectral Doppler waveforms; superficial veins are compressible without intraluminal content. Conclusions: BILATERAL: NO EVIDENCE of deep or superficial vein thrombosis of the lower extremities with limited visualization of lower extremity vein segments as described above. Recommendations: Any questions prior to finalization, please call the readingphysician during normal business hours at the phone number beside their name. NM renogram with lasix Result Date: 06/15/2025 Narrative: NM RENOGRAM WITH LASIX CLINICAL INDICATION: evaluate for obstructive uropathy . PREPARATION: Oral hydration. TECHNIQUE: Following intravenous injection of 4.4 mCi of Tc-99m MAG-3, dynamic renal blood flow and excretory phase imaging with quantitative analysis were performed. At 7 minutespost- tracer, intravenous furosemide, 40 mg, was administered and sequential imaging monitoring diuretic response and quantitative analysis were performed COMPARISON: Ultrasound dated 06/07/2025. Patient demonstrated mild right hydronephrosis and left hydronephrosis. There was prominence of both extrarenal pelvis. FINDINGS: Timing of renal blood flow, cortical uptake, and excretion are prompt and symmetric. Parenchymal uptake is asymmetrical. Some delay and decrease in the right No gross cortical defect. The effective renal plasma flow in the right kidney 139.6mL/m and the left kidney is 65.1 mL/m. Time to maximum radiotracer uptake on the right is 12 minutes and the left is 8 minutes.(Normal <= 5 min.) Relative uptake right kidney 68% and left kidney 32%. 20min after T peak/max:Mild bilateral delayed. (Normal<= 35%). After administration of intravenous furosemide, there was promptclearance of radiotracer from the right and left renal pelves with T-1/2 on the right of 64.8 minutes and the left 85.1 minutes. (T1/2 Normal<= 10-15 min). IMPRESSION: 1. No scintigraphic evidenceof high-grade obstruction. 2. Split renal function 32% on the left and 68% on the right. 3. There is persistent retention of activity in the dilated collecting systems no obstruction on the right andno high-grade obstruction but low-grade obstruction or stasis on the left may be present. Finalized by Bradford Marroquin MD on 06/15/2025 4:29 PM Fluoroscopy swallow motility function Result Date: 06/14/2025 Narrative: FL SWALLOW MOTILITY FUNCTION HISTORY: Oropharyngeal dysphagia COMPARISON: Swallow study 06/12/2025 TECHNIQUE: Video fluoroscopic swallow study was performed in conjunction with speech pathologist. Barium contrast materials of varying consistencies administered. FINDINGS: Fluoroscopy time: 2.4 minutes Reference air kerma: 6.3 mGy Runs: 11 Thin: Penetration. Mildly thick: Penetration. Moderately thick: No penetration or aspiration. Applesauce: No penetration or aspiration. IMPRESSION: 1. Abnormal swallow study as outlined above. 2. Please correlate with dedicated speech pathology report for additional details and recommendations. Approved by Med Figueroa MD on 06/14/2025 2:33 PM I, Stiven Vu MD have personally reviewed the image(s) and agree with and/or edited the report Finalized by Stiven Vu MD on 06/14/2025 2:38 PM Vas renal artery duplex complete Result Date: 06/13/2025 Narrative: Right: Non-visualization of the renal artery, renal vein, and parenchymal arteries due to patient body habitus, positioning, and excessive patient breathing. Normal kidney size noted (9-12cm) with color flow. Left: Non- visualization of the renal artery and renal vein due to patient bodyhabitus, positioning, and excessive patient breathing. Normal kidney size noted (9-12 cm) with color flow. Normal parenchymal resistive index (RI), normal range is 0.53- 0.70 noted. Conclusions: RIGHT:Non-visualization of the abdomen, as describe above Technically inadequate renal duplex evaluation as described above, suggest alternative imaging modality if clinically warranted.LEFT:Non-visualization of the renal artery and renal veins due to body habitus; alternative imaging is recommended. Normal kidney size Recommendations: Any questions prior to finalization, please call the reading physician during normal business hours at the phone number beside their name. Fluoroscopy swallow motility function Result Date: 06/12/2025 Narrative: FL SWALLOW MOTILITY FUNCTION HISTORY: Oropharyngeal dysphagia COMPARISON: None TECHNIQUE: Video fluoroscopic swallow study was performed in conjunction with speech pathologist. Barium contrast materials of varying consistencies administered. FINDINGS: Fluoroscopy time: 2.3 minutes Reference air kerma: 5.1 mGy Runs: 17 Thin: Aspiration. Mildly thick: Penetration. Moderately thick: Penetration. Applesauce: No penetration or aspiration. Fruit: No penetration or aspiration. Cracker: No penetration or aspiration. IMPRESSION: 1. Abnormal swallow study as outlined above. 2. Please correlate with dedicated speech pathology report for additional details and recommendations. Approved by Med Figueroa MD on 06/12/2025 10:32 AM Uli Wyman MD have personally reviewed the image(s) and agree with and/or edited the report Finalized by Uli Dinh MD on 06/12/2025 10:47 AM X-ray abdomen NG Tube placement 1 view Result Date: 06/12/2025 Narrative: XR ABD NG TUBE PLACEMENT 1 VIEW Clinical history:NG placement enteric catheter placementand verification Comparison: 06/09/2025 Impression: Enteric catheter tip in the region of the distal stomach. Finalized by Peter Sarabia MD on 06/12/2025 4:[address] brain without contrast Result Date: 06/11/2025 Narrative: STUDY: CT HEAD WITHOUT CONTRAST CLINICAL HISTORY: Intraparenchymal hematoma COMPARISON: 06/05/2025 TECHNIQUE: CT head was performed without contrast utilizing axial reconstruction with images reviewed in bone and brain windows. Automated exposure control was utilized. FINDINGS: Focal hemorrhage involving the right thalamus with intraventricular extension. On today's exam there is significantly less. Blood within the ventricles. Ventricular size stable. The hemorrhage is approximately2.4 cm in similar to the previous exam. No new hemorrhages. Motion artifact present. No midline shift nor mass effect. Chronic microvascular ischemic changes present. Chronic inflammation involving the sphenoid sinus. IMPRESSION: * Stable hemorrhage involving the right thalamus. There is persistentbut reduced intraventricular blood as compared to previous exam. No new nor advancing abnormality All CT scans at this facility use dose modulation, iterative reconstruction, and/or weight based dosing when appropriate to reduce radiation dose to as low as reasonably achievable. Finalized by Lucas Salvador MD on 06/11/2025 7:13 AM X-ray chest 1 view Result Date: 06/11/2025 Narrative: CHEST ONE VIEW COMPARISON: 06/09/2025 HISTORY: Pulmonary edema. Impression: 1. Enteric catheter extends at least to the diaphragm, with the discs catheter not well-visualized due to body habitus. 2. Stable cardiomediastinal silhouette. Pulmonary vasculature is now within normal limits. 2. No evidence for a pneumothorax, focal consolidation, or pleural effusion. Finalized by Mason Berry MD on 06/11/2025 3:53 AM Vas venous duplex lwr bilateral Result Date: 06/09/2025 Narrative: Right: Portable lower extremity deep vein thrombosis (DVT) exam performed. Common femoral, femoral, popliteal and deep calf muscle veins are compressible without intraluminal content. Spontaneous pulsatile common femoral, femoral and popliteal spectral Doppler signals. Evaluation of superficial veins was not performed. Left: Portable lower extremity deep vein thrombosis (DVT) exam performed. Minimally dilated partially compressible popliteal, posterior tibial and peroneal veins with isoechoic intraluminal content andspontaneous spectral Doppler signals. Common femoral, femoral and deep calf muscle veins are compressible without intraluminal content. Spontaneous puldatile common fe moral, and femoral spectral Doppler signals. Evaluation of superficial veins was not performed. General: In-patient, bedside examination. Conclusions: RIGHT:NO EVIDENCE of deep vein thrombosis (DVT) of the lower extremity. LEFT:CHRONIC post thrombotic popliteal venous disease. CHRONIC post thrombotic tibioperoneal venous disease. Recommendations: Any questions prior to finalization, please call the reading physician during normal business hours at the phone number beside their name. X-ray chest 1 view Result Date: 06/09/2025 Narrative: Clinical History: Hypoxia. Portable Upright chest: 06/09/2025 Comparison: 06/07/2025 Findings: A single portable view of the chest was obtained. The enteric tube extends through the mediastinum to the upper abdomen, the tip beyond the field of visualization. There is no acute pulmonary in filtrate. The aorta is tortuous with mild passive prominent centrally. There is no pneumothorax. IMPRESSION: Aortic tortuosity with no definite change. Mild vascular prominence with no peripheral infiltrate. Finalized by Gianni Levy MD on 06/09/2025 12:40 PM X-ray abdomen NG Tube placement 1 view Result Date: 06/09/2025 Narrative: EXAM: XR ABD NG TUBE PLACEMENT 1 VIEW CLINICAL INFORMATION: NG placement. COMPARISON: 06/08/2025 FINDINGS: There is a feeding tube with the tip extending into the stomach. The visualized lungs are well aerated. There are no focal consolidations. IMPRESSION: Feeding tube tip in stomach. Wo rkstation:[id number] Finalized by Alexis Sánchez MD on 06/09/2025 4:53 AM Echo complete W/ contrast Result Date: 06/08/2025 Narrative: Left Ventricle: Left ventricle appears normal in size. Systolic function is normal with an ejection fraction of 55-60%. X-ray abdomen NG Tube placement 1 view Result Date: 06/08/2025 Narrative: XR ABD NG TUBE PLACEMENT 1 VIEW Clinical history:ng placement enteric catheter placementand verification Comparison: 06/08/2025 Impression: Enteric catheter tip in the expected location of the proximal stomach. Finalized by Peter Sarabia MD on 06/08/2025 12:47 PM X-ray abdomen NG Tube placement 1 view Result Date: 06/08/2025 Narrative: History: NG tube placement Exam/Technique: Supine views of the abdomen were obtained. Comparison: 06/07/2025 Findings: A feeding tube is again seen with its tip just distal to the gastroesophageal junction. Advancement further the stomach is recommended. The visualized portions of the bowel gas pattern are nonspecific. IMPRESSION: Feeding tube has its tip just distal to the gastroesophageal junction and advancement further into the stomach is recommended. Finalized by aRghu Villegas MD on 06/08/2025 2:56 AM Ultrasound retroperitoneal complete with duplex Result Date: 06/07/2025 Narrative: History: Acute renal failure Exam/Technique: Ultrasound of the kidneys with duplex Doppler. Comparison: Contrast-enhanced CT from 06/04/2025 Findings: On the right there is prominent dilatation of the extrarenal pelvis redemonstrated with just minimal calyceal dilatation. On the left there is very severe renal pelvis dilatation and mild dilatation of calyces. No focal renal lesions aredisplayed on either side with patient body habitus and positioning significantly compromising depiction of the right kidney.. The right kidney measures 11.2 centimeters in length , and the left kidney 12.7 centimeters. Resistive indices in the right kidney range from 0.57-0.62, and in the left kidney from 0.63-0.69 The urinary bladder is decompressed with a Mayo catheter in place. IMPRESSION: Mild right hydronephrosis and mild left hydronephrosis are decreased from the appearance on CT 3 days ago with significant dilatation of both extrarenal pelves remaining. Finalized by Mason Cruz MD on 06/07/2025 9:30 PM X-ray abdomen NG Tube placement 1 view Result Date: 06/07/2025 Narrative: Portable upright single view abdomen dated 06/07/2025 at 2:28 PM INDICATION: NG tube placement. FINDINGS: Comparison is 06/06/2015. Feeding tube tip at the GE junction. IMPRESSION: 1. Feeding tube tip at the GE junction. Finalized by Mamie Nazario MD on 06/07/2025 2:32 PM X-ray chest 1 view Result Date: 06/07/2025 Narrative: Single view chest History:Congestion Difficulty breathing, shortness of breath Comparison: None Findings: Single portable view of the chest. Enteric catheter extends below the inferior edge of the radiograph. There is hypoventilatory change with lower lung atelectasis. Mild vascular congestion. Impression: Mild vascular congestion with bilateral lower lung atelectasis. Finalized by Peter Sarabia MD on 06/07/2025 10:09 AM MR brain with and without contrast Result Date: 06/07/2025 Narrative: EXAM:MR BRAIN W WO CONT INDICATION: IPH neuro deficit COMPARISON: CT of the head from 06/05/2025 TECHNIQUE: Multiplanar multisequence pre and post contrast MR sequences through the head/brain. CONTRAST: 20mL ProHance IV. BRAIN FINDINGS: The study is motion degraded Brain Parenchyma: Redemonstrated intraparenchymal hematoma centered along the anterior right thalamus. The overall size and configuration of the hematoma is not significantly changed given variation in imaging technique. Maximal dimension is approximately 2.4 cm. Intraventricular extension into the adjacent anterior bodyof the right lateral ventricle. There is layering blood within the bilateral occipital horns, similar volume to prior from 06/05/2025. There are scattered bilateral acute to subacute infarcts within the right basal ganglia and bilateral centrum semiovale. No definite evidence of convexity subarachnoid hemorrhage however evaluation is limited due to motion. Intracranial Flow-Voids: Arterial and gabi ous sinus flow voids appear normal. Orbits: Normal Paranasal Sinuses: Normal Mastoid Air Cells: Bilateral mastoid effusions Cranium: Normal Extracranial Soft Tissues: Normal IMPRESSION: Significantlylimited study due to motion. Redemonstrated right thalamic hematoma with intraventricular extension. Overall size and morphology is not significantly changed compared to prior CT. Similar volume of intraventricular layering blood products. Enhancement along the anterior basal ganglia likely involving the putamen and caudate head likely sequelae of subacute infarct. There is corresponding diffusion restriction. Characterization is limited by motion. Metastatic disease favored to be less likely in the absence of a known malignancy. Consider short interval follow-up to assess for expected evolution of the infarcted territories and hematoma. Finalized by Peter Ramon on 06/07/2025 12:03 AM EEG Video Monitoring Daily Result Date: 06/06/2025 Narrative: Images from the original result were not included. [facility] Video/EEG Monitoring REPORT EEG Service Date(s): 06/06/25 from 06:30 until 10:35 Date of Report: 06/06/25 History: Gianni Babin is 70 y.o. male with a history of intraparenchymal hemorrhage and encephalopathy who isundergoing video/EEG monitoring to evaluate for seizures. Centrally active medications: Keppra Procedure: This video/EEG monitoring was acquired with electrodes placed according to the [id number] electrode placement system,using collodion. The EEG was reviewed using multiple, reformattable montages. Closed captioned video monitoring of behavior, synchronous with EEG recording is included in the analysis, as is digital/spectral analysis of EEG waveforms. A single EKG channel was recordedfor cardiac rhythm monitoring. Technical description: Background over the left hemisphere is composed of 5-10 ??V frontal and centrally predominant intermittent beta frequency intermixed with 20-25 ??V posterior slow alpha and theta frequencies. There is an 8 Hz posterior dominant rhyhtm seen over the left hemisphere, but not on the right side. Background over the right hemisphere is composed of 5 ??V frontal and centrally predominant intermittent beta frequency intermixed with 20-30 ??V posterior alpha>theta frequency and intermittent right temporal polymorphic delta frequencies. No epileptiform abnormalities are noted in the form of spikes or sharp waves. No electrographic seizure activity is recorded. Stage II sleep is noted, correlated with the presence of bilaterally symmetric spindle activity and generalized delta frequencies. Events: None. EEG diagnosis: This video/EEG monitoring is abnormal due to: Focal intermittent right temporal slowing.. Mild generalized background slowing. EEG interpretation: This video/EEG monitoring is abnormal due to the presence of intermittent right temporal slowing, consistent with structural lesion. Mild generalized background slowing is consistent with encephalopathy of nonspecific etiology. No epileptiform abnormalities or seizures were recorded. Video/EEG monitoring may be continued or discontinued at the discretion of the referring provider. Jennifer German M.D., Ph.D. [facility] X-ray abdomen NG Tube placement 1 view Result Date: 06/06/2025 Narrative: ABDOMEN RADIOGRAPH DATE: 06/06/2025 11:32 AM CLINICAL INDICATION: Verify NG tube placement TECHNIQUE: Single radiograph of the lower chest/upper abdomen COMPARISON: None FINDINGS: Lung bases: Unremarkable Bowel: No free air under the diaphragm. Bowel gas pattern appears nonobstructive. Bones / soft tissue: No acute appearing bony abnormality is noted Other: Enteric tube projects belowthe diaphragm, with the tip in the location of the upper stomach. IMPRESSION: 1. Enteric tube tip location is in the upper stomach, approximately 10 cm beyond the GE junction Finalized by Talat Elkins MD on 06/06/2025 11:38 AM EEG Video Monitoring Daily Result Date: 06/06/2025 Narrative: Images from the original result were not included. [facility] Video/EEG Monitoring REPORT EEG Service Date(s): 06/05/25 @ 06:30 until @ 06:30 Date of Report: 06/06/25 History: Gianni Babin is 70 y.o. male with a history of intraparenchymal hemorrhage and encephalopathywho is undergoing video/EEG monitoring to evaluate for seizures. Centrally active medications: Keppra Procedure: This video/EEG monitoring was acquired with electrodes placed according to the [id number] electrode placement system,using collodion. The EEG was reviewed using multiple, reformattable montages. Closed captioned video monitoring of behavior, synchronous with EEG recording is included in the analysis, as is digital/spectral analysis of EEG waveforms. A single EKG channel was recorded for cardiac rhythm monitoring. Technical description: Background over the left hemisphere iscomposed of 5-10 ??V frontal and centrally predominant intermittent beta frequency intermixed with 20-25 ??V posterior slow alpha and theta frequencies. There is an 8 Hz posterior dominant rhyhtm seen over the left hemisphere, but not on the right side. Background over the right hemisphere is composed of 5 ??V frontal and centrally predominant intermittent beta frequency intermixed with 20-40 ??V posterior theta and intermittent right temporal polymorphic delta frequencies. No epileptiform abnormalities are noted in the form of spikes or sharp waves. No electrographic seizure activity is recorded. Stage II sleep is noted, correlated with the presence of bilaterally symmetric spindle activity and generalized delta frequencies. EEG diagnosis: This video/EEG monitoring is abnormal due to: Focal intermittent right temporal slowing.. Mild generalized background slowing. EEG interpretation: This video/EEG monitoring is abnormal due to the presence of intermittent right temporal slowing, consistent with structural lesion. Mild generalized background slowing is consistent with encephalopathy of nonspecific etiology. No epileptiform abnormalities or seizures were recorded. Video/EEG monitoring may be continued or discontinued at the discretion of the referring provider. Jennifer German M.D., Ph.D. [facility] Background with right temporal slowing EEG Video Monitoring Daily Result Date: 06/05/2025 Narrative: Images from the original result were not included. [facility] Video/EEG Monitoring REPORT EEG Service Date(s): 06/05/25 form 04:27 until 06:30 Date of Report: 06/05/25 History: Gianni Babin is 70 y.o. male with a history of intraparenchymal hemorrhage and encephalopathy who isundergoing video/EEG monitoring to evaluate for seizures. Centrally active medications: Keppra Procedure: This video/EEG monitoring was acquired with electrodes placed according to the [id number] electrode placement system,using collodion. The EEG was reviewed using multiple, reformattable montages. Closed captioned video monitoring of behavior, synchronous with EEG recording is included in the analysis, as is digital/spectral analysis of EEG waveforms. A single EKG channel was recordedfor cardiac rhythm monitoring. Technical description: Background over the left hemisphere is composed of 5-10 ??V frontal and centrally predominant intermittent beta frequency intermixed with 20-25 ??V posterior slow alpha and theta frequencies. There is an 8 Hz posterior dominant rhyhtm seen over the left hemisphere, but not on the right side. Background over the right hemisphere is composed of 5 ??V frontal and centrally predominant intermittent beta frequency intermixed with 20-40 ??V posterior theta and polymorphic delta frequencies. No epileptiform abnormalities are noted in the form of spikes or sharp waves. No electrographic seizure activity is recorded. Stage II sleep is noted, correlated with the presence of bilaterally symmetric spindle activity and generalized delta frequencies. EEG diagnosis: This video/EEG monitoring is abnormal due to: Hemispheric asymmetry with lower amplitudes and frequencies on the right side. Mild generalized background slowing. EEG interpretation: This video/EEG monitoring is abnormal due to the presence of right hemispheric slowing and lower amplitudes, consistent with structural lesion. Mild generalized background slowing is consistent with encephalopathy of nonspecific etiology. No epileptiform abnormalities or seizures were recorded. Ronda Rowell M.D., Ph.D. [facility] Baseline Routine EEG Result Date: 06/05/2025 Narrative: Images from the original result were not included. [facility] EEG REPORT EEG Service Date: 06/05/25 Date of Report: 06/05/25 History: Gianni Babin is a 70 y.o. male with alteredmental status and right intraparenchymal hemorrhage who is undergoing EEG to evaluate for seizures. Centrally active medications: Keppra. Procedure: This EEG was acquired with electrodes placed according to the [id number] electrode placement system. The EEG was acquired and reviewed using multiple, reformattable montages. A single EKG channel was recorded for cardiac rhythm monitoring. Sina hnical description: Background over the left hemisphere is composed of 5-10 ??V frontal and centrally predominant intermittent beta frequency intermixed with 20-25 ??V posterior slow alpha and theta frequencies. There is an 8 Hz posterior dominant rhyhtm seen over the left hemisphere, but not on the right side. Background over the right hemisphere is composed of 5 ??V frontal and centrally predominant intermittent beta frequency intermixed with 20-40 ??V posterior theta and polymorphic delta frequencies. No epileptiform abnormalities are noted in the form of spikes or sharp waves. No electrographic seizure activity is recorded. Stage II sleep is noted, correlated with the presence of bilaterally symmetric spindle activity and generalized delta frequencies. Hyperventilation was deferred. Photic stimulation failed to elicit posterior driving responses. EEG diagnosis: This EEG is abnormal due to: Hemispheric asymmetry with lower amplitudes and frequencies on the right side. Mild generalized background slowing. EEG interpretation: This EEG is abnormal due to the presence of right hemispheric slowing and lower amplitudes, consistent with structural lesion. Mild generalized background slowing is consistent with encephalopathy of nonspecific etiology. The absence of epileptiform abnormalities does not exclude the possibility of intermittent seizures. Jennifer German M.D., Ph.D. [facility] Background CT brain without contrast Result Date: 06/05/2025 Narrative: CT BRAIN WO CONT CLINICAL HISTORY: Follow-up for intracranial hemorrhage. COMPARISON: CTbrain 06/05/2025 and 06/04/2025. TECHNIQUE: CT brain without intravenous contrast. Automated exposure control was utilized. All CT scans at this facility use dose modulation, iterative reconstruction, and/or weight based dosing when appropriate to reduce radiation dose to as low as reasonably achievable. FINDINGS: Redemonstrated acute parenchymal hemorrhage centered within the anterior right thalamus with adjacent edema. Intraventricular extension within the right lateral ventricle, third ventricle, and dependent portions of the lateral ventricles. Ventricular system size and morphology are unchanged, basal cisterns are patent. No new or enlarging intracranial hemorrhage. Patchy areas of hypoattenuation within the supratentorial white matter nonspecific but most commonly associated with ch ronic microvascular ischemic change. Orbits are symmetric. No depressed or displaced calvarial fracture. Partial opacification of the bilateral mastoid air cells. Partially visualized cystic lesion within the right maxillary alveolar recess is unchanged. IMPRESSION: * Similar intraparenchymal hemorrhage centered within the anterior right thalamus with intraventricular extension. No change in sizeor configuration of the ventricular system. All CT scans at this facility use dose modulation, iterative reconstruction, and/or weight based dosing when appropriate to reduce radiation dose to as lowas reasonably achievable. Finalized by Eron Walton MD on 06/05/2025 8:[address] brain without contrast Result Date: 06/05/2025 Narrative: History: Stroke Technique: Contiguous axial images through the brain were obtained without the administration of intravenous contrast material. Automated exposure control was utilized. Comparison: 06/04/2025 Findings: The previous described acute intracranial hemorrhage involving the right thalamus and extending into the right lateral ventricle is again seen and has not changed significantly since the prior study. There is now increasing blood products in the dependent portion of thelateral ventricles bilaterally. No new areas of hemorrhage are identified. There is no evidence of major vessel infarct or mass lesion. Impression: Stable appearance of the acute hemorrhage in the right thalamus with intraventricular extension with more acute blood product now seen layering in the dependent portion of the lateral ventricles since the previous examination dated 06/04/2025. All CT scans at this facility use dose modulation, iterative reconstruction, and/or weight based dosing when appropriate to reduce radiation dose to as low as reasonably achievable. Fi nalized by Raghu Villegas MD on 06/05/2025 4:[address] abdomen and pelvis with contrast Result Date: 06/04/2025 Narrative: History: . fall Exam/Technique: Contiguous axial images are obtained of the abdomen and pelvis with 100 cc omnipaque 300 intravenous contrast. Coronal and sagittal reconstructions were performed and reviewed. Automatic dose exposure reduction technique utilized. Comparison: CT chest. Findings: LUNGS AND CARDIOMEDIASTINAL STRUCTURES: no abnormality. LIVER: is normal. SPLEEN: is normal. GALLBLADDER: normal. BILIARY TREE:Normal PANCREAS: normal. ADRENAL GLANDS are normal. RIGHT KIDNEY: Cortical scarring with significant caliectasis and hydronephrosis. The right ureter is dilated down to the urinary bladder. Cortical scarring. LEFT KIDNEY: Significant hydronephrosis and caliectasis. No discrete cortical scarring. The left ureter is not opacified and demonstrates thick wall with dilatation. 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 There is extensive disease also traction into the internal and external vessels. PORTAL VEIN: Patent IVC is normal. There is no paraaortic or paracaval adenopathy. FREE AIR: Absent SIGNIFICANT FREE FLUID:absent MESENTERY: Normal BODY WALL: Normal SMALL BOWEL AND TERMINAL ILEUM: normal. COLON: Colonic diverticulosiswith fecal loading without diverticulitis. APPENDIX: normal. HERNIAL ORIFICES:Fat-containing inguinal hernias.. PELVIC ORGANS: Prostate gland with dystrophic calcification. Significant degenerative labrum with thick wall and lobulated outline which may be due to chronic outlet obstruction, inflammation and neoplastic disease cannot be completely excluded. BONES AND SOFT TISSUES: Osteopenia degenerative changes. There is no loss of vertebral body height. The left hip arthroplasty partially visualized with no acute abnormality. Right hip degenerative changes noted. . 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 Significant hydronephrosis and caliectasis andhydroureter bilaterally with a thick walled urinary bladder likely related to obstruction or chronic inflammation and the enlarged prostate gland. Reflux may be noted bilaterally. All CT scans at this facility use dose modulation, iterative reconstruction, and/or weight based dosing when appropriate to reduce radiation dose to as low as reasonably achievable. Finalized by Bradford Marroquin MD on 06/04/2025 3:[address] chest with contrast Result Date: 06/04/2025 Narrative: CT CHEST W CONT 06/04/2025 3:18 PM INDICATION: Fall. Pain. COMPARISON: None TECHNIQUE: Contrast-enhanced CT images of the chest were obtained. All CT scans at this facility use dose modulation, iterative reconstruction, and/or weight based dosing when appropriate to reduce radiation doseto as low as reasonably achievable. FINDINGS: Evaluation compromised by arm positioning at time of scanning. Thyroid gland is unremarkable. No supraclavicular adenopathy. Ascending thoracic aorta measures 4.4 cm in diameter. Conventional branching of the aortic arch. Heart size is within normal limits. No pericardial effusion. Coronary artery calcifications are present. Main pulmonary trunk size is within normal limits. No enlarged mediastinal or hilar lymph nodes by size criteria. Trachea shows no acute abnormality. Secretions noted within the mid thoracic trachea. Mild nonspecific bilateral peribronchial wall thickening. No pleural effusion. No pneumothorax. Dependent atelectasis. No focal consolidation. Small right posterior diaphragmatic hernia containing fat. Chest wall soft tissue show no acute abnormality. No acute or aggressive osseous lesion. Degenerative changes of the bilateral shoulders. Remote left-sided rib fractures. Multilevel degenerative changes of the thoracic spinewith slightly exaggerated thoracic kyphosis. CT abdomen was performed concurrently but reported separately. IMPRESSION: No acute posttraumatic findings within the chest. Finalized by Eron Walton MD on 06/04/2025 3:[address] cervical reconstruction Result Date: 06/04/2025 Narrative: CLINICAL INFORMATION: Cervical spine pain. Neck pain PROCEDURE: Routine cervical spine protocol CT was obtained without intravenous contrast. Sagittal and coronal reformatted images were obtained from the axial data. Automated exposure control was utilized. All CT scans at this facility dose modulation, iterative reconstruction, and/or weight based dosing when appropriate to reduce radiation dose to as low as reasonably achievable. FINDINGS: Satisfactory alignment of the cervical spine. The vertebral body heights are preserved. No fracture. No malalignment. Mild multifocal degenerat nighat changes with endplate sclerosis and osteophyte formation. The atlantoaxial space is intact withdegenerative sclerosis. Posterior elements are intact with facet hypertrophy. No acute findings in the soft tissues. Please note, ligamentous injury is not well evaluated on a neutral position CT. Ifconcern for ligamentous injury consider flex-ex radiographs or MRI. IMPRESSION: * No acute osseous abnormalities in the cervical spine. Finalized by Stan Overton MD on 06/04/2025 3:[address] angiogram head Result Date: 06/04/2025 Narrative: CLINICAL INFORMATION: Altered mental status TECHNIQUE: CT angiogram of the head was performed following intravenous administration of nonionic intravenous contrast. 3-D maximum intensity projection images generated and reviewed under concurrent physician supervision. Automated exposure control was utilized. Arterial blood flow was measured to assist the stroke clinical team in the diagnosis of large vessel occlusion in patients undergoing screening for acute ischemic stroke using Rapid AI software when clinically indicated. All CT scans at this facility use dose modulation, iterative reconstruction, and/or weight based dosing when appropriate to reduce radiation dose to as low as reasonably achievable. COMPARISON: No relevant prior studies available. FINDINGS: Evaluation significantly limited due to patient motion. The internal carotid arteries are patent throughout their course in the carotid canal and cavernous segment with moderate atherosclerotic calcification. Evaluation of the anterior cerebral arteries is nondiagnostic due to patient motion. The proximal MCAs are patent, evaluation beyond this is nondiagnostic due to patient motion. The V4 segment of the vertebral arteries is patent, the basilar artery is patent. The P1 segment of the posterior cerebral arteries is patent however evaluation beyond this is nondiagnostic. IMPRESSION: * Partially nondiagnostic evaluation due to patient motion as described above. Moderate atherosclerotic calcification of the internal carotid arteries within the carotid canal and cavernous segment. Finalized by Amee Vargas MD on 06/04/2025 2:[address] angiogram carotid Result Date: 06/04/2025 Narrative: CLINICAL INFORMATION: Stroke. Neurologic deficit. COMPARISON: None PROCEDURE: CT angiogram of the neck with IV contrast. Sagittal and coronal reformatted images with 3-D Maximum intensity projection reconstructions constructed under concurrent physician supervision on a independent workstation for evaluation of carotid and vertebral arteries. Automated exposure control was utilized. The [place] Symptomatic carotid Endarterectomy Trial (NASCET) method for calculating the degreeof stenosis was utilized for stenosis measurements. 3-D reformatted images confirm the source data findings. stenosis is calculated as compared to the distal lumen of the ICA (NASCET). All CT scans at this facility dose modulation, iterative reconstruction, and/or weight based dosing when appropriate to reduce radiation dose to as low as reasonably achievable. FINDINGS: No acute findings at the partially visualized aortic arch. Three-vessel branching pattern. Subclavian arteries are patent. Thevertebral arteries originate from the subclavian arteries and are normal in course and caliber. Thecommon carotid arteries are patent. There is mild scattered atherosclerotic calcification. There isatherosclerotic calcification at the proximal bilateral internal carotid arteries with less than 50% stenosis. The internal carotid arteries are otherwise normal in course and caliber. Partially visualizing apices are unremarkable. No acute findings in the soft tissues. IMPRESSION: 1. No acute findings. No significant carotid or vertebral artery stenosis. 2. Mild atherosclerotic calcification at the bilateral carotid bifurcations and proximal internal carotid arteries with less than 50% stenosis. Finalized by Stan Overton MD on 06/04/2025 2:[address] brain without contrast Result Date: 06/04/2025 Narrative: CLINICAL INFORMATION: Altered mental status TECHNIQUE: CT BRAIN WO CONT CT images of thebrain were obtained. There is a 2.3 cm right thalamic hemorrhage with intraventricular extension ofblood products. Blood proximal within mid the lateral ventricles as well as the third ventricle. Nomidline shift or basilar cisternal effacement. Chronic ischemic changes appear moderate. IMPRESSION: 2.3 cm right thalamic hemorrhage with intraventricular extension. I personally called these findings to the emergency department at time of dictation. Dr. Vaughn aware of findings. All CT scans at this facility use dose modulation, iterative reconstruction, and/or weight based dosing when appropria te to reduce radiation dose to as low as reasonably achievable. Finalized by Cdoy Orourke MD on 06/04/2025 2:17 PM Char Khoury MD PGY2 Urology Resident 06/20/25 Cosigned by Liborio Mann Jr., MD at 06/20/2025 3:42 PM EDT Associated attestation - Liborio Mann Jr., MD - 06/20/2025 3:42 PM EDT Attending Attestation: I saw the patient. I participated and was physically present during the critical/dill portions of the service. I was directly involved in the management and treatment plan of the patient. I reviewed the resident's note. Additional Notes/Findings: Interval endocrinology note reviewed. Creatinine was previously 2.04 on 06/18/2025, now 1.71. Patient asleep upon my arrival. IMPRESSIONS: 1. 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 Confirmed with conversation with neurology attending 06/19/2025 Dr. Shanks neurologic risks wouldbe improved if procedures with general anesthesia could be avoided until at least 06/29/2025 Recommendations: 1. Extensive telephone conversation 06/18/2025 with patient's discussion options of nonintervention with consideration of clinical expectations from his intracranial bleed, observation, cystoscopy, left retrograde pyelogram with possible placement left ureteral stent requiring a general anesthetic, or left nephrostomy tube placement request. The procedure of cystoscopic stent insertion was described. Risks of bleeding, infection, inability to place stent, possible need for retrograde pyelogram, stent side effects and need for timely removal or replacement, ureteroscopy, or nephrostomy tube, injury to urinary tract structures, and anesthetic risks including , mi, CVA, DVT, and PE were reviewed. Reviewed empirically there would be some increased risk with general anesthetic given his intracranial bleed. Also reviewed risks of nephrostomy tube including bleeding, infection, pain, inability to place tube, and injury to kidney or surrounding structures and need for maintenance of nephrostomy tube. Further advised nephrostomy tube would give more definitive relief of any obstruction present, and I am not particularly confident that a stent will improve his renal function, and a nephrostomy tubemay not either. Reviewed and nephrostomy tube could always be removed if it fails to improve the situation. She states she spoken with family,, and they desire placement of a left ureteral stent, despite risks as discussed above. We reviewed this is not an emergent procedure. Anticoagulants would not need to be held. We will follow with you. To rediscuss with family again and Dr. Bess as able. Thank you very much. I appreciate being asked to help with this patient's care. Liborio Mann Jr., M.D. [facility] [phone] 3:40 p.m. on 06/20/2025 addendum: Discussed patient's care with Dr. Bess as well as subsequently with patient's by telephone. Due to the above concerns regarding short term surgery as well as stabilization and actually short term improvement of patient's renal function, the plan will be discharge to home with Mayo catheter when acceptable to other services and follow up 1-2 weeks in the office with Dr. Bess to further assess the patient and possible options for intervention or not intervention regarding a stent or other pathway. We will sign off for now. Okay to discharge from Urology standpoint with indwelling Mayo catheter. Liborio Mann Jr., M.D. [facility] [phone] * Katrin Jules MD - 06/19/2025 2:07 PM EDT Images from the original note were not included. [facility] [place] [facility] [address] [place] [address] Service Pager: Reinier Patel MD, Interim Chief Kathrin Skinner, MD Henry Jodeh, MD CASSANDRA Ayala PA-C Austin Howard, PA-C Manali Pragani, MD, Fellow Herbie Zhao MD, Fellow Ricardo Real MD, Fellow Katrin Jules MD, Fellow NO NEED to PAGE for NEW CONSULTS Secure Giving Assistant chat to Academic Endocrinology Page for immediate attention. Diabetes Management Service Progress Note Patient : Gianni Babin; 70 y.o. Location: [id number] Admit Date: 06/04/2025 Hospital Day: Hospital Day: 16 Reason for Consult: Diabetes management Assessment/Plan Blood Glucose Monitoring Results, Interpretation Results from last 7 days Lab Units 06/19/25 0719 06/19/25 0601 06/18/25 2148 06/18/25 1625 06/18/25 1129 06/18/25 0750 06/18/25 0555 06/17/25 2111 BEDSIDE GLUCOSE mg/dL 147* -- 109* 173* 242* 146* -- 166* GLUCOSE mg/dL -- 157* -- -- -- -- 144* -- Results/Impression/Conclusion: [] Basal/Bolus insulin imbalance with significant glycemic variability: consider adjusting basal insulin-bolus insulin ratio close to 50%-50% of TDD (total daily insulin) [] Overnight blood glucose reduction: consider decreasing basal insulin (Lantus) or bedtime correctional insulin (Humalog) [] Fasting hypoglycemia: consider decreasing basal insulin (Lantus) or bedtime correctional insulin(Humalog) [] Postprandial hypoglyemia: consider decreasing prandial or meal insulin (Humalog) after [] breakfast [] lunch [] evening meal [] nighttime snack [] Hypoglycemia due to over-correction [x] Fasting hyperglycemia: consider increasing basal insulin (Lantus) [x] Postprandial hyperglycemia: consider increasing prandial or meal insulin (Humalog) after [x] breakfast [] lunch [] evening meal [] nighttime snack [] Hyperglycemia due to missing or improper timing of the scheduled dose of insulin/glucose-lowering medication Generally, change insulin by 10 to 30 % depending on the severity of glycemic excursions. For noncritically ill individuals (those not in the ICU), a glycemic goal of 100-180 mg/dL (premeal<140 mg/dL) is recommended. For most critically ill individuals (those in the ICU), a glycemic goal of 140- 180 mg/dL is recommended. For selected individuals (e.g., those undergoing cardiac surgery), more stringent glycemic goals (110-140 mg/dL) may be appropriate. Blood glucoses above 200 mg/dl are CMS monitored performance measures. ASSESSMENT and PLAN: Gianni Babin has diabetes mellitus type 2 complicated by cardiovascular disease. Admitted with Intracerebral hemorrhage.. 1. Hypoglycemia due to current illness -Tube feeding discontinued on 06/12/25 -Patient on Pureed diet. 2. DM Type 2 with hyperglycemia Last HbA1c: Lab Results Component Value Date HGBA1C 8.3 (H) 06/07/2025 Results from last 7 days Lab Units 06/19/25 0601 CREATININE mg/dL 1.90* EGFR (CKD-EPI) NON-RACE DEPENDENT ml/min/1.73sq.m 38* [x] Unstable-Improving but further adjustment needed as below [] Unstable-Worse and significant adjustment needed as below [] Stable and no changes needed The following changes were made: Basal insulin: Glargine (or Lantus) : _12_units, (increased from 10 units) [] daily AM [x] daily at bedtime [] BID (9 AM, 9 PM) Prandial or meal insulin: Lispro (or Humalog) [x] by insulin to carb ratio = _1_units: 10 grams of carbohydrate in a meal AC [] _ _ units every 4 hours for continuous tube feeding (Provide ~30% of TDI as basal insulin) Correctional insulin: Lispro (or Humalog): [x] 1-5 AC (above 150), 1-4 HS (above 200) [] 2-10 AC (above 150), 2-8 HS (above 200) [] 3-15 AC (above 150), 3-12 HS (above 200) For while NPO or tube feeding or TPN [] 1-5 q4h (above 180) [] 2-10 q4h (above 180) [] 3-15 q4h (above 180) Thank you for consulting our Diabetes Management Team (Endocrinology). We will continue to follow up. Subjective Chief Complaint Patient presents with Fall Visited the patient bedside he was sleeping without any fiend or family accompanied,. No over nightevent was documented. Will folloew the bllod glucose at dinner time and adjust the insulin accordingly. History: Gianni Babin is a 70-year-old male known case of hypertension, hyperlipidemia, DM type 2 admitted with a complaint of fall and had an intracranial hemorrhage found to be at the site of the right thalamic area and ventricular extension of the bleed. The patient was consulted for the diabetic management, he did not follow any electrical parts reconditioner in thecompliance with the metformin is questionable. No use of insulin previously. A1c is 8.3 on June 07, 2025. ROS/Subjective/Interval history: Patient is pleasantly confused Food intake: [x] Good [] Decreased [] Poor [] NPO Symptom Yes No Comment Hypoglycemia [] [x] When: Decreased appetite [] [x] Nausea [] [x] Vomiting [] [x] Abdominal discomfort/pain [] [x] Review of Systems Constitutional: Negative for fever. Gastrointestinal: Negative for abdominal distention and abdominal pain. Psychiatric/Behavioral: Positive for confusion. Objective Physical Exam: BP 125/90 Pulse 73 Temp 36.5 ??C (97.7 ??F) (Oral) Resp 19 Ht 182.9 cm (6') Wt 100.2 kg (221 lb) SpO2 92% BMI 29.97 kg/m?? Physical Exam HENT: Head: Normocephalic. Nose: Nose normal. Mouth/Throat: Mouth: Mucous membranes are moist. Cardiovascular: Rate and Rhythm: Normal rate. Pulses: Normal pulses. Heart sounds: Normal heart sounds. Pulmonary: Effort: Pulmonary effort is normal. Abdominal: Palpations: Abdomen is soft. Musculoskeletal: General: Normal range of motion. Cervical back: Normal range of motion. Skin: General: Skin is warm. Intake/Output: Intake/Output Summary (Last 24 hours) at 06/19/2025 1407 Last data filed at 06/19/2025 0413 Gross per 24 hour Intake -- Output 1150 ml Net -1150 ml Steroids / Other Glycemia-Affecting Medications: [No] Diet/Nutrition: Dietary Orders (From admission, onward) Start Ordered 06/19/25 0630 Adult diet NPO; Except medications Diet effective now Question Answer Comment Diet Type: NPO NPO Except: Except medications 06/19/25 0629 06/14/25 1054 Adult nutrition supplements Continuous Question Answer Comment Diet Type or Consistency: Level 4 Pureed diet Select Supplement: Thick Frozen Dessert Supplement Frequency: TID 06/14/25 1053 Recent Labs: Results from last 7 days Lab Units 06/19/25 0601 06/18/25 0555 06/17/25 0608 06/16/25 0548 06/15/25 0659 WBC x10E9/L 5.6 5.5 5.5 5.5 4.2 HEMOGLOBIN g/dL 13.4 13.6 14.1 13.2 13.1 HEMATOCRIT % 39.3 39.6 41.0 38.8* 38.5* PLATELETS X10E9/L 225 225 237 213 201 Results from last 7 days Lab Units 06/19/25 0601 06/18/25 0555 06/17/25 0608 06/16/25 0548 06/15/25 1752 06/15/25 0659 SODIUM mmol/L 144 143 141 145 < > 148* POTASSIUM mmol/L 4.7 4.4 4.3 4.8 < > 4.4 CHLORIDE mmol/L 112* 110* 110* 112* -- 116* CO2 mmol/L 23 23 26 23 -- 24 BUN mg/dL 55* 55* 51* 54* -- 49* CREATININE mg/dL 1.90* 2.04* 1.99* 1.93* -- 1.81* EGFR (CKD-EPI) NON-RACE DEPENDENT ml/min/1.73sq.m 38* 35* 36* 37* -- 40* CALCIUM mg/dL 9.6 9.5 9.4 9.3 -- 9.1 < > = values in this interval not displayed. Results from last 7 days Lab Units 06/19/25 0601 06/18/25 0555 06/17/25 0608 06/16/25 0548 06/15/25 0659 ALBUMIN g/dL 3.7 3.8 3.7 3.7 3.6 Last HbA1c: Lab Results Component Value Date HGBA1C 8.3 (H) 06/07/2025 Cosigned by Henry Godwin MD at 06/19/2025 8:08 PM EDT Associated attestation - Henry Godwin MD - 06/19/2025 8:08 PM EDT I have discussed the patient's history, exam findings and reviewed pertinent studies with Dr. Jules. I personally evaluated this patient on the day of the encounter, performed dill portion(s) of the service, participated in the management and agree with overall evaluation plan as delineated above. I have the following additional comments: 70 year old male with T2DM admitted for ICH - We have updated inpatient glucose lowering regimen as follows: Glargine 12 units daily + lispro CR 10 + STUART, potential modification if preprandial hyperglycemia persists We will continue to monitor blood glucose trends and adjust glucose lowering regimen as appropriate, while patient is in the hospital Henry Godwin MD 06/19/25 * Ed Ortiz MD - 06/19/2025 10:46 AM EDT Images from the original note were not included. Nephrology Daily Progress Note INTERVAL HISTORY/History of present illness: Patient remained confused. No events overnight PROBLEM LIST: Acute kidney injury on Chronic kidney disease stage IIIA with baseline creatinine around 1.3-1.4 mg/dL: CT scan of abdomen pelvis with contrast on 06/04/2025 showed cortical scarring with significantcaliectasis and hydronephrosis right ureter is dilated down to the urinary bladder. Cortical scarring. Left kidney significant hydronephrosis and caliectasis no discrete cortical scarring. Renal ultrasound showed right hydronephrosis and mild left hydronephrosis. Urine protein to creatinine ratio is 1 g/g. Hepatitis panel and HIV are negative C3 is normal. C4 is on the high side which is 53. Rheumatoid factor is normal. Ylxt-vxqgjq-vjisgqlw DNA is negative. LUIZA is negative. Glomerular basement membrane antibodies are negative. SPEP is negative for M bands. Anca was negative. 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 VITAL SIGNS TREND: Vitals: 06/19/25 0414 06/19/25 0457 06/19/25 0715 06/19/25 0836 BP: 154/55 138/65 127/62 Pulse: 64 67 61 Resp: 14 14 16 Temp: 36.7 ??C (98.1 ??F) TempSrc: Axillary SpO2: 92% Weight: Height: INTAKE/OUTPUT: Intake/Output Summary (Last 24 hours) at 06/19/2025 1046 Last data filed at 06/19/2025 0413 Gross per 24 hour Intake -- Output 1800 ml Net -1800 ml No intake/output data recorded. WEIGHT: Wt Readings from Last 3 Encounters: 06/18/25 100.2 kg (221 lb) 06/04/25 93 kg (205 lb) amLODIPine, 10 mg, oral, Daily aspirin, 81 mg, oral, Daily atorvastatin, 20 mg, oral, Nightly carvediloL, 12.5 mg, oral, BID cefTRIAXone (ROCEPHIN) IV, 1,000 mg, intravenous, Q24H heparin (porcine), 5,000 Units, subcutaneous, Q8H CATRINA hydrALAZINE, 100 mg, oral, Q8H CATRINA insulin glargine, 10 Units, subcutaneous, Daily insulin lispro, 1-10 Units, subcutaneous, With meals and nightly insulin lispro, 1-5 Units, subcutaneous, With meals and nightly melatonin, 5 mg, oral, Nightly QUEtiapine, 25 mg, oral, Nightly dextrose 5 % in water, 100 mL/hr sodium chloride, 50 mL/hr, Last Rate: 50 mL/hr (06/18/25 1808) PHYSICAL EXAM: Blood pressure 127/62, pulse 61, temperature 36.7 ??C (98.1 ??F), temperature source Axillary, resp. rate 16, height 182.9 cm (6'), weight 100.2 kg (221 lb), SpO2 92%. Temp: [36.6 ??C (97.8 ??F)-36.8 ??C (98.3 ??F)] 36.7 ??C (98.1 ??F) Pulse: [61-75] 61 Resp: [14-27] 16 BP: (114-154)/(55-89) 127/62 SpO2: [92 %] 92 % O2 Device: None (Room air) O2 Flow Rate (L/min): [0 L/min] 0 L/min General appearance: Confused. Lying in bed. HEENT: no JVD, no carotid bruits, no lymphadenopathy. Cardiovascular: normal S1-S2 Respiratory: clear to auscultation bilaterally Gastrointestinal: soft, no tenderness, no guarding, positive bowel sounds Musculoskeletal: no edema Skin : No Rash. Neuro: Awake but confused LABORATORY EVALUATION: Results from last 7 days Lab Units 06/19/25 0606/18/25 0555 06/17/25 0608 06/16/25 0548 06/15/25 1752 06/15/25 0659 SODIUM mmol/L 144 143 141 145 147* 148* POTASSIUM mmol/L 4.7 4.4 4.3 4.8 4.5 4.4 CHLORIDE mmol/L 112* 110* 110* 112* -- 116* CO2 mmol/L 23 23 26 23 -- 24 BUN mg/dL 55* 55* 51* 54* -- 49* CREATININE mg/dL 1.90* 2.04* 1.99* 1.93* -- 1.81* CALCIUM mg/dL 9.6 9.5 9.4 9.3 -- 9.1 MAGNESIUM mg/dL 2.7* 2.7* 2.6 2.6 -- 2.8* PHOSPHORUS mg/dL 4.7 4.7 4.7 5.1* -- 4.5 Results from last 7 days Lab Units 06/19/25 0601 06/18/25 0555 06/17/25 0608 06/16/25 0548 06/15/25 0659 WBC x10E9/L 5.6 5.5 5.5 5.5 4.2 HEMOGLOBIN g/dL 13.4 13.6 14.1 13.2 13.1 HEMATOCRIT % 39.3 39.6 41.0 38.8* 38.5* PLATELETS X10E9/L 225 225 237 213 201 Results from last 7 days Lab Units 06/19/25 0601 06/18/25 0555 06/17/25 0608 06/16/25 0548 06/15/25 0659 PROTEIN TOTAL g/dL 7.0 7.0 7.0 6.9 6.6 ALBUMIN g/dL 3.7 3.8 3.7 3.7 3.6 AST U/L 22 24 25 32 27 ALT U/L 27 27 29 24 17 No results found. IMPRESSION: Acute Kidney Injuiry on Chronic kidney disease stage IIIA baseline creatinine is around 1.3-1.4 mg/dL. Creatinine is relatively stable Bilateral hydronephrosis status post Mayo catheter placement. Renal ultrasound on [id number] showed bilateral hydronephrosis urology service is following. Renal scan showed no evidence of high-grade obstruction. Split renal function was 32% on the left and 68% on the right. Cysto with stent placement is pending Hypertensive emergency: Blood pressure is currently under good control Hypernatremia due to free water deficit. Improved Encephalopathy with intraparenchymal hemorrhage with intraventricular extension likely secondary tohypertensive emergency. Neuro interventional is following Plan : Continue with hypotonic IV fluid Awaiting further input from Urology regarding cystoscopy/ureteral stent placement Replace electrolytes per scale Ed Ortiz M.D. [facility] Thank you for your consultation and allowing us to participate in the care of Gianni Montelongo please do not hesitate to call us with any questions at: Office: [phone] Office Answering Service: [phone] Please feel free to contact me through [email or web address] Secure chat during the daytime hours, if no response after 5 minutes then call the answering service. This note was created with the assistance of a speech-recognition program. Although the intention is to generate a document that actually reflects the content of the visit, no guarantees can be provided that every mistake has been identified and corrected by editing. * Alphonse Cuenca MD - 06/19/2025 9:47 AM EDT Neurovascular / Interventional neurology Intraparenchymal Hemorrhage Progress Note Date of admission 06/04/2025 5:25 PM PCP: CLARISA HANSEN APRN-OBSTETRICS GYN Reason of admission: IPH Deficit: AMS Last known well: Unclear, some time on 06/03/25 Patient seen at: ED Initial NIHSS: 9 Premorbid mRS: 0 Initial imaging: R Thalamic IPH with IVH ICH Score: 2 Initial BP reported: 134/83 Interval: Patient was seen and examined at bedside this morning. Vitals stable, no acute events reported overnight. Afebrile, WBC 5.6. Renogram shows findings suggestive of left-sided obstruction and Urology wants to do a stent placement under general anesthesia pending clearance from Neurology. The attending Urologist only wants to discuss the plan with the attending physician and not the resident on service at this time. Restarting patient's Eliquis was discussed with the vascular surgery team who recommend that it is usually a common practice to give anticoagulant medication for 3 months in the setting of unprovokedDVTs, however in the patient's case the resumption of AC can be discussed in the outpatient settingafter discharge and repeating duplex. Subjective: Gianni Babin is a 70 y.o. male who initially presented to an outside hospital and thereafter was transferred to [facility] via air. Past medical history significant for hypertension, DM, HLD,Obesity, DM2, recent DVT on Eliquis. Per chart review, the patient was initially taken to an outside hospital ED by EMS for evaluation of altered mental status. The patient was not aware of where he was, what year it was or who the president was. Imaging studies were done at the outside hospital including CT brain which showed 2.3 cm right thalamic hemorrhage with intraventricular extension. He was on Eliquis due to recent DVT and started on Eliquis. In the ED Kcentra was given for reversal of Eliquis. He was also given Keppra 2g at the outside hospital and started on Cardene infusion. The patient was accepted by the trauma service and transferred to [facility]. Upon arrival to [facility] ED, vascular neurology consulted. Upon my evaluation the patient is currently on room air. He appears to be confused, answering questions but incorrectly. He is able to follow commands intermittently. The patient has stable blood pressure, currently 119/80. According to the family he had an episode of fall 3 days back. However, themain onset of confusion was this morning. Past medical history: DVT on Eliquis, HTN, HLD, Obesity, DM2 Home medications: Eliquis, Aspirin, Lipitor, Lisinopril, Metformin Social history: Daily alcohol drinker, chronic smoking Home medications: Medications Prior to Admission Medication Sig Dispense Refill Last Dose/Taking aspirin 81 mg Take 1 tablet (81 mg total) by mouth in the morning. Taking atorvastatin (LIPITOR) 20 mg tablet Take 1 tablet (20 mg total) by mouth every morning. TAKE 1 TABLET (20 MG) BY MOUTH IN THE MORNING Taking ELIQUIS 5 mg tablet Take 1 tablet (5 mg total) by mouth in the morning and 1 tablet (5 mg total) before bedtime. Taking fenofibrate (LOFIBRA) 160 mg tablet Take 1 tablet (160 mg total) by mouth in the morning. Taking lisinopriL (PRINIVIL,ZESTRIL) 40 mg tablet Take 1 tablet (40 mg total) by mouth in the morning. Taking magnesium aspart,citrate,oxide (TRIPLE MAGNESIUM COMPLEX) 400 mg magnesium capsule Take 400 mg by mouth in the morning. Taking metFORMIN (GLUCOPHAGE) 1000 mg tablet Take 1 tablet (1,000 mg total) by mouth in the morning and 1 tablet (1,000 mg total) in the evening. Take with meals. Taking ACCU-CHEK GUIDE ME GLUCOSE MTR misc USE DAILY OR DIRECTED FOR MONITORING OF DIABETES. ACCU-CHEK GUIDE TEST STRIPS strip USE DAILY ACCU-CHEK SOFTCLIX LANCETS lancets USE TO TEST DAILY Past medical history: Past Medical History: Diagnosis Date Diabetes mellitus type 2, controlled ([facility]) DVT (deep venous thrombosis) ([facility]) GERD (gastroesophageal reflux disease) Hyperlipidemia Hypertension ICH (intracerebral hemorrhage) ([facility]) 06/04/2025 Osteoarthritis Past surgical history: Past Surgical History: Procedure Laterality Date TONSILLECTOMY TOTAL HIP ARTHROPLASTY 06/2010 Family history: Hefamily history includes Heart attack in his father; Leukemia in his mother; Lymphoma in his mother; Pancreatic cancer in his father. Allergies: Hehas no known allergies. Social history: Social History Socioeconomic History Marital status: Spouse name: Not on file Number of children: Not on file Years of education: Not on file Highest education level: Not on file Occupational History Not on file Tobacco Use Smoking status: Every Day Current packs/day: 1.00 Average packs/day: 1 pack/day for 52.8 years (52.8 ttl pk-yrs) Types: Cigarettes Start date: 1972 Smokeless tobacco: Never Substance and Sexual Activity Alcohol use: Yes Drug use: Never Sexual activity: Not on file Other Topics Concern Not on file Social History Narrative Not on file Social Drivers of Health Financial Resource Strain: Not on file Food Insecurity: No Food Insecurity (06/11/2025) Hunger Screening Food Insecurity - Worry: Never True Food Insecurity - Inability: Never True Transportation Needs: No Transportation Needs (06/05/2025) PRAPARE - Transportation Lack of Transportation (Medical): No Lack of Transportation (Non-Medical): No Physical Activity: Not on file Stress: Not on file Social Connections: Not on file Interpersonal Safety: Patient Unable To Answer (06/05/2025) Humiliation, Afraid, Rape, and Kick questionnaire Fear of Current or Ex-Partner: Patient unable to answer Emotionally Abused: Patient unable to answer Physically Abused: Patient unable to answer Sexually Abused: Patient unable to answer Housing Instability: Low Risk (06/05/2025) Housing Instability Housing Instability: No Physical exam: Vital Signs: Blood pressure 127/62, pulse 61, temperature 36.7 ??C (98.1 ??F), temperature source Axillary, resp. rate 16, height 182.9 cm (6'), weight 100.2 kg (221 lb), SpO2 92%. Respiratory Source: O2 Device: None (Room air) Admission Weight: Weight: 117.3 kg (258 lb 9.6 oz) NIHSS: 1a Level of consciousness: 1=not alert but arousable by minor stimulation to obey, answer or respond 1b. LOC questions: 2=Performs neither task correctly 1c. LOC commands: 2=Performs neither task correctly 2. Best Gaze: 0=normal 3. Visual: 1=Partial hemianopia 4. Facial Palsy: 0=Normal symmetric movement 5a. Motor left arm: 0=No drift, limb holds 90 (or 45) degrees for full 10 seconds 5b. Motor right arm: 0=No drift, limb holds 90 (or 45) degrees for full 10 seconds 6a. motor left le=No drift, limb holds 90 (or 45) degrees for full 10 seconds 6b Motor right le=No drift, limb holds 90 (or 45) degrees for full 10 seconds 7. Limb Ataxia: 0=Absent 8. Sensory: 0=Normal; no sensory loss 9. Best Language: 1=Mild to moderate aphasia; some obvious loss of fluency or facility of comprehension without significant limitation on ideas expressed or form of expression. 10. Dysarthria: 1=Mild to moderate, patient slurs at least some words and at worst, can be understood with some difficulty 11. Extinction and Inattention: 0=No abnormality Total: 8 Labs/Imaging: Objective Lab work/Imaging: Lab Results Component Value Date HGBA1C 8.3 (H) 06/07/2025 CALCIUM 9.6 06/19/2025 K 4.7 06/19/2025 CO2 23 06/19/2025 BUN 55 (H) 06/19/2025 CREATININE 1.90 (H) 06/19/2025 Lab Results Component Value Date WBC 5.6 06/19/2025 HGB 13.4 06/19/2025 MCV 93 06/19/2025 PLT 225 06/19/2025 Lab Results Component Value Date INR 1.5 (H) 06/04/2025 No results found for: LDL , CHOLESTEROLT Imaging: No results found. Assessment: 70 years old male with past medical history of hypertension, hyperlipidemia, diabetes, obesity, recent DVT (on Eliquis) who had an episode of fall 3 days ago. Later on, the patient had an acute onsetof confusion in the morning and was taken to an outside hospital. CT head showed intraparenchymal hemorrhage and therefore the patient was transferred to [facility] for further workup. On examination, the patient was confused but no significant motor deficits at that time. They were admitted to the ICU for workup. MRI brain on 06/07: redemonstrated right thalamic hematoma with intraventricular extension Impression: R IPH with intra-ventricular extension, likely 2/2 HTN (ICH score 2) Others: Unprovoked DVT, plans for weekly duplex Possible ureteral stent placement, urology on board Plan: - Continue care on the intermediate floor with stroke service. - Urology wants to do inpatient procedure pending clearance from neurology attending on service. Dr. Shanks spoke with Dr. Mann on phone, will recommend holding off any procedures atleast 10 days after discharge for now. - Appears encephalopathic, UA positive for LE, continue ceftriaxone course for UTI. - Continue nightly Seroquel 25mg. - Resumed home aspirin 81mg OD. - Antithrombotic plans: Patient to follow-up with vascular surgery in the outpatient setting and based on further duplex studies get their advice regarding need for therapy and resumption. - Currently on NaCL 0.45% 50cc/hour. Nephrology on board, appreciate recommendations and management. - Weekly duplex of LE to monitor and DVT prophylaxis per vascular surgery recommended - Fluctuating blood glucose levels after feeds, endocrinology on board, appreciate recommendations and management. - Nephrology on board for blood pressure medication adjustments and CKD. Currently on coreg, amlodipine, lasix, lisinopril. - Considering patient is chronic alcoholic and slow in communication, completed thiamine 500mg TID course. - vEEG discontinued on 06/06. Levetiracetam levels therapeutic. - Given Keppra due to provoked seizure at the outside hospital. Completed a 7 day course. - Target SBP 130-150. PRN Hydralazine and labetalol - Will need outpatient evaluation for SOFIA. - Code status: Full - Dispo: SNF - DVT px: Heparin 5000U TID Staffed with: Dr. Rimma Cuenca MD PGY-3 Neurology Resident 06/19/25 9:47 AM Cosigned by Chris Shanks MD at 06/21/2025 10:10 PM EDT Associated attestation - Chris Shanks MD - 06/21/2025 10:10 PM EDT Patient seen & examined in conjunction with PGy3. I have reviewed and agree with the HPI, Past/Family/Social histories, ROS, examination, assessment and plan as outlined in the H&P/consultation note above. * Char Khoury MD - 06/19/2025 7:53 AM EDT Images from the original note were not included. Jr Mackenzie., Kim Capone., Peter Bhatti M.D., Gianni Escalante M.D., Leatha Fajardo M.D., Candie Schreiber M.D., Carl Bess M.D., Raghu Davila M.D., Arash Lan M.D, Dk Tam M.D. Hospital day: 15 Chief Complaint: Bilateral hydroureteronephrosis Subjective: No acute overnight events reported. Vital signs stable and afebrile. Patient appeared confused and disorientated this morning. Mayo catheter draining clear yellow urine. Urine output last 24 hours, 1000 cc. On labs, no leukocytosis and hemoglobin stable. Creatinine slightly improved, 1.9 today. Nonew events reported. Impression: Patient is a 70-year-old male with past medical history of lobe of the left lower extremity DVT on chronic Eliquis, diabetes, and hypertension who presented to [facility] on 06/04/2025 due to altered mental status. Patient was noted to have an intra thalamic hemorrhage, secondary to a fall that same day. Additionally, CT imaging revealed bilateral hydroureteronephrosis, more pronounced on the left. Throughout this hospital admission, patient with a Mayo catheter and creatininewith increasing trend. Mag 3 nuclear scan suggestive of left-sided obstruction Plan: Diet as tolerated Nausea and pain control via p.r.n. medication Trend creatinine Maintain Mayo catheter Monitor urine output Further plans of care pending interdisciplinary discussions, neurology input appreciated Rest of medical management per primary and other consultants Patient Vitals for the past 24 hrs: BP Temp Temp src Pulse Resp SpO2 06/19/25 0715 127/62 36.7 ??C (98.1 ??F) Axillary 67 14 92 % 06/19/25 0457 138/65 -- -- -- -- -- 06/19/25 0414 154/55 -- -- 64 14 -- 06/18/25 2345 114/89 36.8 ??C (98.3 ??F) Axillary 75 (!) 27 -- 06/18/25 1942 124/73 36.7 ??C (98 ??F) Axillary -- -- 92 % 06/18/25 1626 134/64 36.6 ??C (97.8 ??F) Oral 66 17 -- 06/18/25 1505 152/87 -- -- 70 19 -- 06/18/25 1125 118/71 -- -- 64 16 -- 06/18/25 1114 -- -- -- 69 15 -- Intake/Output Summary (Last 24 hours) at 06/19/2025 0753 Last data filed at 06/19/2025 0413 Gross per 24 hour Intake -- Output 1800 ml Net -1800 ml Results from last 7 days Lab Units 06/19/25 0719 06/19/25 0601 06/18/25 0750 06/18/25 0555 WBC x10E9/L -- 5.6 -- 5.5 HEMOGLOBIN g/dL -- 13.4 -- 13.6 MCV fL -- 93 -- 93 MCHC g/dL -- 34.0 -- 34.3 PLATELETS X10E9/L -- 225 -- 225 SODIUM mmol/L -- 144 -- 143 POTASSIUM mmol/L -- 4.7 -- 4.4 PHOSPHORUS mg/dL -- 4.7 -- 4.7 CALCIUM mg/dL -- 9.6 -- 9.5 ANION GAP mmol/L -- 9 -- 10 CREATININE mg/dL -- 1.90* -- 2.04* BUN mg/dL -- 55* -- 55* BEDSIDE GLUCOSE mg/dL 147* -- < > -- GLUCOSE mg/dL -- 157* -- 144* ALBUMIN g/dL -- 3.7 -- 3.8 BILIRUBIN, TOTAL mg/dL -- 0.5 -- 0.6 AST U/L -- 22 -- 24 ALT U/L -- 27 -- 27 ALK PHOS U/L -- 87 -- 89 < > = values in this interval not displayed. Microbiology Results Procedure Component Value Units Date/Time Urine Culture Urine, Indwelling Catheter [[id number]] Collected: 06/17/25 1348 Specimen: Urine, Indwelling Catheter Updated: 06/18/25 1246 CULTURE RESULTS NO GROWTH AT <1000 CFU/mL Blood culture #1 [[id number]] Collected: 06/17/25 1320 Specimen: Blood, Venous Updated: 06/19/25 0202 CULTURE RESULTS NO GROWTH AT 36 HOURS Narrative: Suboptimal volume of blood collected, Results may be affected. Blood culture #2 [[id number]] Collected: 06/17/25 1320 Specimen: Blood, Venous Updated: 06/19/25 020 CULTURE RESULTS NO GROWTH AT 36 HOURS Narrative: Suboptimal volume of blood collected, Results may be affected. Weight: 100.2 kg (221 lb) Results from last 7 days Lab Units 06/19/25 0719 06/19/25 0601 06/18/25 0750 06/18/25 0555 06/17/25 0744 06/17/25 0608 POTASSIUM mmol/L -- 4.7 -- 4.4 -- 4.3 CHLORIDE mmol/L -- 112* -- 110* -- 110* CO2 mmol/L -- 23 -- 23 -- 26 BUN mg/dL -- 55* -- 55* -- 51* CREATININE mg/dL -- 1.90* -- 2.04* -- 1.99* BEDSIDE GLUCOSE mg/dL 147* -- < > -- < > -- GLUCOSE mg/dL -- 157* -- 144* -- 155* CALCIUM mg/dL -- 9.6 -- 9.5 -- 9.4 < > = values in this interval not displayed. Results from last 7 days Lab Units 06/19/25 0601 06/18/25 0555 06/17/25 0608 WBC x10E9/L 5.6 5.5 5.5 HEMOGLOBIN g/dL 13.4 13.6 14.1 HEMATOCRIT % 39.3 39.6 41.0 PLATELETS X10E9/L 225 225 237 Lab Results Component Value Date SPECIFICGRA 1.015 06/17/2025 LEUKOCYTE Small (A) 06/17/2025 GLU 147 (H) 06/19/2025 UROBILINOGEN <1.1 eu/dL 06/17/2025 Additional Lab/culture results: Microbiology Results Procedure Component Value Units Date/Time Urine Culture Urine, Indwelling Catheter [[id number]] Collected: 06/17/25 1348 Specimen: Urine, Indwelling Catheter Updated: 06/18/25 1246 CULTURE RESULTS NO GROWTH AT <1000 CFU/mL Blood culture #1 [[id number]] Collected: 06/17/25 1320 Specimen: Blood, Venous Updated: 06/19/25 0202 CULTURE RESULTS NO GROWTH AT 36 HOURS Narrative: Suboptimal volume of blood collected, Results may be affected. Blood culture #2 [[id number]] Collected: 06/17/25 1320 Specimen: Blood, Venous Updated: 06/19/25 0202 CULTURE RESULTS NO GROWTH AT 36 HOURS Narrative: Suboptimal volume of blood collected, Results may be affected. Lab Results Component Value Date SPECIFICGRA 1.015 06/17/2025 LEUKOCYTE Small (A) 06/17/2025 GLU 147 (H) 06/19/2025 UROBILINOGEN <1.1 eu/dL 06/17/2025 Physical Exam: Constitutional: NAD. Chronically ill HEENT: NCAT, PERRLA, EOMI Card: RRR, extremities warm well perfused Pulm: no SOB, no increased WOB Abdominal: no tenderness, distension, pain. exam: no suprapubic tenderness, no flank pain. Mayo catheter in place, clear yellow urine MSK: no overt deformities Neuro: no focal deficits Interval Imaging Findings: X-ray chest 1 view Result Date: 06/17/2025 Narrative: Single view chest History:Sepsis Difficulty breathing, shortness of breath Comparison: 06/11/2025 Findings: Single portable view of the chest. Stable cardiac mediastinal silhouette. No newfocal opacity, effusion or pneumothorax. Impression: No definitive acute process. Finalized by Peter Sarabia MD on 06/17/2025 3:12 PM Vas venous duplex lwr bilateral Result Date: 06/15/2025 Narrative: Right: Limited visualization of veins in the thigh and calf due to body habitus and patient positioning. Lower extremity deep veins are compressible with spontaneous phasic spectral Doppler waveforms; superficial veins are compressible without intraluminal content. Left: Limited visualization of veins in the thigh and calf due to body habitus and patient positioning. Lower extremity deep veins are compressible with spontaneous phasic spectral Doppler waveforms; superficial veins are compressible without intraluminal content. Conclusions: BILATERAL: NO EVIDENCE of deep or superficial vein thrombosis of the lower extremities with limited visualization of lower extremity vein segments as described above. Recommendations: Any questions prior to finalization, please call the readingphysician during normal business hours at the phone number beside their name. NM renogram with lasix Result Date: 06/15/2025 Narrative: NM RENOGRAM WITH LASIX CLINICAL INDICATION: evaluate for obstructive uropathy . PREPARATION: Oral hydration. TECHNIQUE: Following intravenous injection of 4.4 mCi of Tc-99m MAG-3, dynamic renal blood flow and excretory phase imaging with quantitative analysis were performed. At 7 minutespost- tracer, intravenous furosemide, 40 mg, was administered and sequential imaging monitoring diuretic response and quantitative analysis were performed COMPARISON: Ultrasound dated 06/07/2025. Patient demonstrated mild right hydronephrosis and left hydronephrosis. There was prominence of both extrarenal pelvis. FINDINGS: Timing of renal blood flow, cortical uptake, and excretion are prompt and symmetric. Parenchymal uptake is asymmetrical. Some delay and decrease in the right No gross cortical defect. The effective renal plasma flow in the right kidney 139.6mL/m and the left kidney is 65.1 mL/m. Time to maximum radiotracer uptake on the right is 12 minutes and the left is 8 minutes.(Normal <= 5 min.) Relative uptake right kidney 68% and left kidney 32%. 20min after T peak/max:Mild bilateral delayed. (Normal<= 35%). After administration of intravenous furosemide, there was promptclearance of radiotracer from the right and left renal pelves with T-1/2 on the right of 64.8 minutes and the left 85.1 minutes. (T1/2 Normal<= 10-15 min). IMPRESSION: 1. No scintigraphic evidenceof high-grade obstruction. 2. Split renal function 32% on the left and 68% on the right. 3. There is persistent retention of activity in the dilated collecting systems no obstruction on the right andno high-grade obstruction but low-grade obstruction or stasis on the left may be present. Finalized by Bradford Marroquin MD on 06/15/2025 4:29 PM Fluoroscopy swallow motility function Result Date: 06/14/2025 Narrative: FL SWALLOW MOTILITY FUNCTION HISTORY: Oropharyngeal dysphagia COMPARISON: Swallow study 06/12/2025 TECHNIQUE: Video fluoroscopic swallow study was performed in conjunction with speech pathologist. Barium contrast materials of varying consistencies administered. FINDINGS: Fluoroscopy time: 2.4 minutes Reference air kerma: 6.3 mGy Runs: 11 Thin: Penetration. Mildly thick: Penetration. Moderately thick: No penetration or aspiration. Applesauce: No penetration or aspiration. IMPRESSION: 1. Abnormal swallow study as outlined above. 2. Please correlate with dedicated speech pathology report for additional details and recommendations. Approved by Med Figueroa MD on 06/14/2025 2:33 PM Stiven Wyman MD have personally reviewed the image(s) and agree with and/or edited the report Finalized by Stiven Vu MD on 06/14/2025 2:38 PM Vas renal artery duplex complete Result Date: 06/13/2025 Narrative: Right: Non-visualization of the renal artery, renal vein, and parenchymal arteries due to patient body habitus, positioning, and excessive patient breathing. Normal kidney size noted (9-12cm) with color flow. Left: Non- visualization of the renal artery and renal vein due to patient bodyhabitus, positioning, and excessive patient breathing. Normal kidney size noted (9-12 cm) with color flow. Normal parenchymal resistive index (RI), normal range is 0.53- 0.70 noted. Conclusions: RIGHT:Non-visualization of the abdomen, as describe above Technically inadequate renal duplex evaluation as described above, suggest alternative imaging modality if clinically warranted.LEFT:Non-visualization of the renal artery and renal veins due to body habitus; alternative imaging is recommended. Normal kidney size Recommendations: Any questions prior to finalization, please call the reading physician during normal business hours at the phone number beside their name. Fluoroscopy swallow motility function Result Date: 06/12/2025 Narrative: FL SWALLOW MOTILITY FUNCTION HISTORY: Oropharyngeal dysphagia COMPARISON: None TECHNIQUE: Video fluoroscopic swallow study was performed in conjunction with speech pathologist. Barium contrast materials of varying consistencies administered. FINDINGS: Fluoroscopy time: 2.3 minutes Reference air kerma: 5.1 mGy Runs: 17 Thin: Aspiration. Mildly thick: Penetration. Moderately thick: Penetration. Applesauce: No penetration or aspiration. Fruit: No penetration or aspiration. Cracker: No penetration or aspiration. IMPRESSION: 1. Abnormal swallow study as outlined above. 2. Please correlate with dedicated speech pathology report for additional details and recommendations. Approved by Med Figueroa MD on 06/12/2025 10:32 AM Uli Wyman MD have personally reviewed the image(s) and agree with and/or edited the report Finalized by Uli Dinh MD on 06/12/2025 10:47 AM X-ray abdomen NG Tube placement 1 view Result Date: 06/12/2025 Narrative: XR ABD NG TUBE PLACEMENT 1 VIEW Clinical history:NG placement enteric catheter placementand verification Comparison: 06/09/2025 Impression: Enteric catheter tip in the region of the distal stomach. Finalized by Peter Sarabia MD on 06/12/2025 4:[address] brain without contrast Result Date: 06/11/2025 Narrative: STUDY: CT HEAD WITHOUT CONTRAST CLINICAL HISTORY: Intraparenchymal hematoma COMPARISON: 06/05/2025 TECHNIQUE: CT head was performed without contrast utilizing axial reconstruction with images reviewed in bone and brain windows. Automated exposure control was utilized. FINDINGS: Focal hemorrhage involving the right thalamus with intraventricular extension. On today's exam there is significantly less. Blood within the ventricles. Ventricular size stable. The hemorrhage is approximately2.4 cm in similar to the previous exam. No new hemorrhages. Motion artifact present. No midline shift nor mass effect. Chronic microvascular ischemic changes present. Chronic inflammation involving the sphenoid sinus. IMPRESSION: * Stable hemorrhage involving the right thalamus. There is persistentbut reduced intraventricular blood as compared to previous exam. No new nor advancing abnormality All CT scans at this facility use dose modulation, iterative reconstruction, and/or weight based dosing when appropriate to reduce radiation dose to as low as reasonably achievable. Finalized by Lucas Salvador MD on 06/11/2025 7:13 AM X-ray chest 1 view Result Date: 06/11/2025 Narrative: CHEST ONE VIEW COMPARISON: 06/09/2025 HISTORY: Pulmonary edema. Impression: 1. Enteric catheter extends at least to the diaphragm, with the discs catheter not well-visualized due to body habitus. 2. Stable cardiomediastinal silhouette. Pulmonary vasculature is now within normal limits. 2. No evidence for a pneumothorax, focal consolidation, or pleural effusion. Finalized by Mason Berry MD on 06/11/2025 3:53 AM Vas venous duplex lwr bilateral Result Date: 06/09/2025 Narrative: Right: Portable lower extremity deep vein thrombosis (DVT) exam performed. Common femoral, femoral, popliteal and deep calf muscle veins are compressible without intraluminal content. Spontaneous pulsatile common femoral, femoral and popliteal spectral Doppler signals. Evaluation of superficial veins was not performed. Left: Portable lower extremity deep vein thrombosis (DVT) exam performed. Minimally dilated partially compressible popliteal, posterior tibial and peroneal veins with isoechoic intraluminal content andspontaneous spectral Doppler signals. Common femoral, femoral and deep calf muscle veins are compressible without intraluminal content. Spontaneous puldatile common fe moral, and femoral spectral Doppler signals. Evaluation of superficial veins was not performed. General: In-patient, bedside examination. Conclusions: RIGHT:NO EVIDENCE of deep vein thrombosis (DVT) of the lower extremity. LEFT:CHRONIC post thrombotic popliteal venous disease. CHRONIC post thrombotic tibioperoneal venous disease. Recommendations: Any questions prior to finalization, please call the reading physician during normal business hours at the phone number beside their name. X-ray chest 1 view Result Date: 06/09/2025 Narrative: Clinical History: Hypoxia. Portable Upright chest: 06/09/2025 Comparison: 06/07/2025 Findings: A single portable view of the chest was obtained. The enteric tube extends through the mediastinum to the upper abdomen, the tip beyond the field of visualization. There is no acute pulmonary in filtrate. The aorta is tortuous with mild passive prominent centrally. There is no pneumothorax. IMPRESSION: Aortic tortuosity with no definite change. Mild vascular prominence with no peripheral infiltrate. Finalized by Gianni Levy MD on 06/09/2025 12:40 PM X-ray abdomen NG Tube placement 1 view Result Date: 06/09/2025 Narrative: EXAM: XR ABD NG TUBE PLACEMENT 1 VIEW CLINICAL INFORMATION: NG placement. COMPARISON: 06/08/2025 FINDINGS: There is a feeding tube with the tip extending into the stomach. The visualized lungs are well aerated. There are no focal consolidations. IMPRESSION: Feeding tube tip in stomach. Wo rkstation:[id number] Finalized by Alexis Sánchez MD on 06/09/2025 4:53 AM Echo complete W/ contrast Result Date: 06/08/2025 Narrative: Left Ventricle: Left ventricle appears normal in size. Systolic function is normal with an ejection fraction of 55-60%. X-ray abdomen NG Tube placement 1 view Result Date: 06/08/2025 Narrative: XR ABD NG TUBE PLACEMENT 1 VIEW Clinical history:ng placement enteric catheter placementand verification Comparison: 06/08/2025 Impression: Enteric catheter tip in the expected location of the proximal stomach. Finalized by Peter Sarabia MD on 06/08/2025 12:47 PM X-ray abdomen NG Tube placement 1 view Result Date: 06/08/2025 Narrative: History: NG tube placement Exam/Technique: Supine views of the abdomen were obtained. Comparison: 06/07/2025 Findings: A feeding tube is again seen with its tip just distal to the gastroesophageal junction. Advancement further the stomach is recommended. The visualized portions of the bowel gas pattern are nonspecific. IMPRESSION: Feeding tube has its tip just distal to the gastroesophageal junction and advancement further into the stomach is recommended. Finalized by Raghu Villegas MD on 06/08/2025 2:56 AM Ultrasound retroperitoneal complete with duplex Result Date: 06/07/2025 Narrative: History: Acute renal failure Exam/Technique: Ultrasound of the kidneys with duplex Doppler. Comparison: Contrast-enhanced CT from 06/04/2025 Findings: On the right there is prominent dilatation of the extrarenal pelvis redemonstrated with just minimal calyceal dilatation. On the left there is very severe renal pelvis dilatation and mild dilatation of calyces. No focal renal lesions aredisplayed on either side with patient body habitus and positioning significantly compromising depiction of the right kidney.. The right kidney measures 11.2 centimeters in length , and the left kidney 12.7 centimeters. Resistive indices in the right kidney range from 0.57-0.62, and in the left kidney from 0.63-0.69 The urinary bladder is decompressed with a Mayo catheter in place. IMPRESSION: Mild right hydronephrosis and mild left hydronephrosis are decreased from the appearance on CT 3 days ago with significant dilatation of both extrarenal pelves remaining. Finalized by Mason Cruz MD on 06/07/2025 9:30 PM X-ray abdomen NG Tube placement 1 view Result Date: 06/07/2025 Narrative: Portable upright single view abdomen dated 06/07/2025 at 2:28 PM INDICATION: NG tube placement. FINDINGS: Comparison is 06/06/2015. Feeding tube tip at the GE junction. IMPRESSION: 1. Feeding tube tip at the GE junction. Finalized by Mamie Nazario MD on 06/07/2025 2:32 PM X-ray chest 1 view Result Date: 06/07/2025 Narrative: Single view chest History:Congestion Difficulty breathing, shortness of breath Comparison: None Findings: Single portable view of the chest. Enteric catheter extends below the inferior edge of the radiograph. There is hypoventilatory change with lower lung atelectasis. Mild vascular congestion. Impression: Mild vascular congestion with bilateral lower lung atelectasis. Finalized by Peter Sarabia MD on 06/07/2025 10:09 AM MR brain with and without contrast Result Date: 06/07/2025 Narrative: EXAM:MR BRAIN W WO CONT INDICATION: IPH neuro deficit COMPARISON: CT of the head from 06/05/2025 TECHNIQUE: Multiplanar multisequence pre and post contrast MR sequences through the head/brain. CONTRAST: 20mL ProHance IV. BRAIN FINDINGS: The study is motion degraded Brain Parenchyma: Redemonstrated intraparenchymal hematoma centered along the anterior right thalamus. The overall size and configuration of the hematoma is not significantly changed given variation in imaging technique. Maximal dimension is approximately 2.4 cm. Intraventricular extension into the adjacent anterior bodyof the right lateral ventricle. There is layering blood within the bilateral occipital horns, similar volume to prior from 06/05/2025. There are scattered bilateral acute to subacute infarcts within the right basal ganglia and bilateral centrum semiovale. No definite evidence of convexity subarachnoid hemorrhage however evaluation is limited due to motion. Intracranial Flow-Voids: Arterial and gabi ous sinus flow voids appear normal. Orbits: Normal Paranasal Sinuses: Normal Mastoid Air Cells: Bilateral mastoid effusions Cranium: Normal Extracranial Soft Tissues: Normal IMPRESSION: Significantlylimited study due to motion. Redemonstrated right thalamic hematoma with intraventricular extension. Overall size and morphology is not significantly changed compared to prior CT. Similar volume of intraventricular layering blood products. Enhancement along the anterior basal ganglia likely involving the putamen and caudate head likely sequelae of subacute infarct. There is corresponding diffusion restriction. Characterization is limited by motion. Metastatic disease favored to be less likely in the absence of a known malignancy. Consider short interval follow-up to assess for expected evolution of the infarcted territories and hematoma. Finalized by Peter Ramon on 06/07/2025 12:03 AM EEG Video Monitoring Daily Result Date: 06/06/2025 Narrative: Images from the original result were not included. [facility] Video/EEG Monitoring REPORT EEG Service Date(s): 06/06/25 from 06:30 until 10:35 Date of Report: 06/06/25 History: Gianni Babin is 70 y.o. male with a history of intraparenchymal hemorrhage and encephalopathy who isundergoing video/EEG monitoring to evaluate for seizures. Centrally active medications: Keppra Procedure: This video/EEG monitoring was acquired with electrodes placed according to the [id number] electrode placement system,using collodion. The EEG was reviewed using multiple, reformattable montages. Closed captioned video monitoring of behavior, synchronous with EEG recording is included in the analysis, as is digital/spectral analysis of EEG waveforms. A single EKG channel was recordedfor cardiac rhythm monitoring. Technical description: Background over the left hemisphere is composed of 5-10 ??V frontal and centrally predominant intermittent beta frequency intermixed with 20-25 ??V posterior slow alpha and theta frequencies. There is an 8 Hz posterior dominant rhyhtm seen over the left hemisphere, but not on the right side. Background over the right hemisphere is composed of 5 ??V frontal and centrally predominant intermittent beta frequency intermixed with 20-30 ??V posterior alpha>theta frequency and intermittent right temporal polymorphic delta frequencies. No epileptiform abnormalities are noted in the form of spikes or sharp waves. No electrographic seizure activity is recorded. Stage II sleep is noted, correlated with the presence of bilaterally symmetric spindle activity and generalized delta frequencies. Events: None. EEG diagnosis: This video/EEG monitoring is abnormal due to: Focal intermittent right temporal slowing.. Mild generalized background slowing. EEG interpretation: This video/EEG monitoring is abnormal due to the presence of intermittent right temporal slowing, consistent with structural lesion. Mild generalized background slowing is consistent with encephalopathy of nonspecific etiology. No epileptiform abnormalities or seizures were recorded. Video/EEG monitoring may be continued or discontinued at the discretion of the referring provider. Jennifer German M.D., Ph.D. [facility] X-ray abdomen NG Tube placement 1 view Result Date: 06/06/2025 Narrative: ABDOMEN RADIOGRAPH DATE: 06/06/2025 11:32 AM CLINICAL INDICATION: Verify NG tube placement TECHNIQUE: Single radiograph of the lower chest/upper abdomen COMPARISON: None FINDINGS: Lung bases: Unremarkable Bowel: No free air under the diaphragm. Bowel gas pattern appears nonobstructive. Bones / soft tissue: No acute appearing bony abnormality is noted Other: Enteric tube projects below the diaphragm, with the tip in the location of the upper stomach. IMPRESSION: 1. Enteric tube tip location is in the upper stomach, approximately 10 cm beyond the GE junction Finalized by Talat Elkins MD on 06/06/2025 11:38 AM EEG Video Monitoring Daily Result Date: 06/06/2025 Narrative: Images from the original result were not included. [facility] Video/EEG Monitoring REPORT EEG Service Date(s): 06/05/25 @ 06:30 until @ 06:30 Date of Report: 06/06/25 History: Gianni Babin is 70 y.o. male with a history of intraparenchymal hemorrhage and encephalopathywho is undergoing video/EEG monitoring to evaluate for seizures. Centrally active medications: Keppra Procedure: This video/EEG monitoring was acquired with electrodes placed according to the [id number] electrode placement system,using collodion. The EEG was reviewed using multiple, reformattable montages. Closed captioned video monitoring of behavior, synchronous with EEG recording is included in the analysis, as is digital/spectral analysis of EEG waveforms. A single EKG channel was recorded for cardiac rhythm monitoring. Technical description: Background over the left hemisphere iscomposed of 5-10 ??V frontal and centrally predominant intermittent beta frequency intermixed with 20-25 ??V posterior slow alpha and theta frequencies. There is an 8 Hz posterior dominant rhyhtm seen over the left hemisphere, but not on the right side. Background over the right hemisphere is composed of 5 ??V frontal and centrally predominant intermittent beta frequency intermixed with 20-40 ??V posterior theta and intermittent right temporal polymorphic delta frequencies. No epileptiform abnormalities are noted in the form of spikes or sharp waves. No electrographic seizure activity is recorded. Stage II sleep is noted, correlated with the presence of bilaterally symmetric spindle activity and generalized delta frequencies. EEG diagnosis: This video/EEG monitoring is abnormal due to: Focal intermittent right temporal slowing.. Mild generalized background slowing. EEG interpretation: This video/EEG monitoring is abnormal due to the presence of intermittent right temporal slowing, consistent with structural lesion. Mild generalized background slowing is consistent with encephalopathy of nonspecific etiology. No epileptiform abnormalities or seizures were recorded. Video/EEG monitoring may be continued or discontinued at the discretion of the referring provider. Jennifer German M.D., Ph.D. [facility] Background with right temporal slowing EEG Video Monitoring Daily Result Date: 06/05/2025 Narrative: Images from the original result were not included. [facility] Video/EEG Monitoring REPORT EEG Service Date(s): 06/05/25 form 04:27 until 06:30 Date of Report: 06/05/25 History: Gianni Babin is 70 y.o. male with a history of intraparenchymal hemorrhage and encephalopathy who isundergoing video/EEG monitoring to evaluate for seizures. Centrally active medications: Keppra Procedure: This video/EEG monitoring was acquired with electrodes placed according to the [id number] electrode placement system,using collodion. The EEG was reviewed using multiple, reformattable montages. Closed captioned video monitoring of behavior, synchronous with EEG recording is included in the analysis, as is digital/spectral analysis of EEG waveforms. A single EKG channel was recordedfor cardiac rhythm monitoring. Technical description: Background over the left hemisphere is composed of 5-10 ??V frontal and centrally predominant intermittent beta frequency intermixed with 20-25 ??V posterior slow alpha and theta frequencies. There is an 8 Hz posterior dominant rhyhtm seen over the left hemisphere, but not on the right side. Background over the right hemisphere is composed of 5 ??V frontal and centrally predominant intermittent beta frequency intermixed with 20-40 ??V posterior theta and polymorphic delta frequencies. No epileptiform abnormalities are noted in the form of spikes or sharp waves. No electrographic seizure activity is recorded. Stage II sleep is noted, correlated with the presence of bilaterally symmetric spindle activity and generalized delta frequencies. EEG diagnosis: This video/EEG monitoring is abnormal due to: Hemispheric asymmetry with lower amplitudes and frequencies on the right side. Mild generalized background slowing. EEG interpretation: This video/EEG monitoring is abnormal due to the presence of right hemispheric slowing and lower amplitudes, consistent with structural lesion. Mild generalized background slowing is consistent with encephalopathy of nonspecific etiology. No epileptiform abnormalities or seizures were recorded. Ronda Rowell M.D., Ph.D. [facility] Baseline Routine EEG Result Date: 06/05/2025 Narrative: Images from the original result were not included. [facility] EEG REPORT EEG Service Date: 06/05/25 Date of Report: 06/05/25 History: Gianni Babin is a 70 y.o. male with alteredmental status and right intraparenchymal hemorrhage who is undergoing EEG to evaluate for seizures. Centrally active medications: Keppra. Procedure: This EEG was acquired with electrodes placed according to the [id number] electrode placement system. The EEG was acquired and reviewed using multiple, reformattable montages. A single EKG channel was recorded for cardiac rhythm monitoring. Sina hnical description: Background over the left hemisphere is composed of 5-10 ??V frontal and centrally predominant intermittent beta frequency intermixed with 20-25 ??V posterior slow alpha and theta frequencies. There is an 8 Hz posterior dominant rhyhtm seen over the left hemisphere, but not on the right side. Background over the right hemisphere is composed of 5 ??V frontal and centrally predominant intermittent beta frequency intermixed with 20-40 ??V posterior theta and polymorphic delta frequencies. No epileptiform abnormalities are noted in the form of spikes or sharp waves. No electrographic seizure activity is recorded. Stage II sleep is noted, correlated with the presence of bilaterally symmetric spindle activity and generalized delta frequencies. Hyperventilation was deferred. Photic stimulation failed to elicit posterior driving responses. EEG diagnosis: This EEG is abnormal due to: Hemispheric asymmetry with lower amplitudes and frequencies on the right side. Mild generalized background slowing. EEG interpretation: This EEG is abnormal due to the presence of right hemispheric slowing and lower amplitudes, consistent with structural lesion. Mild generalized background slowing is consistent with encephalopathy of nonspecific etiology. The absence of epileptiform abnormalities does not exclude the possibility of intermittent seizures. Jennifer German M.D., Ph.D. [facility] Background CT brain without contrast Result Date: 06/05/2025 Narrative: CT BRAIN WO CONT CLINICAL HISTORY: Follow-up for intracranial hemorrhage. COMPARISON: CTbrain 06/05/2025 and 06/04/2025. TECHNIQUE: CT brain without intravenous contrast. Automated exposure control was utilized. All CT scans at this facility use dose modulation, iterative reconstruction, and/or weight based dosing when appropriate to reduce radiation dose to as low as reasonably achievable. FINDINGS: Redemonstrated acute parenchymal hemorrhage centered within the anterior right thalamus with adjacent edema. Intraventricular extension within the right lateral ventricle, third ventricle, and dependent portions of the lateral ventricles. Ventricular system size and morphology are unchanged, basal cisterns are patent. No new or enlarging intracranial hemorrhage. Patchy areas of hypoattenuation within the supratentorial white matter nonspecific but most commonly associated with ch ronic microvascular ischemic change. Orbits are symmetric. No depressed or displaced calvarial fracture. Partial opacification of the bilateral mastoid air cells. Partially visualized cystic lesion within the right maxillary alveolar recess is unchanged. IMPRESSION: * Similar intraparenchymal hemorrhage centered within the anterior right thalamus with intraventricular extension. No change in sizeor configuration of the ventricular system. All CT scans at this facility use dose modulation, iterative reconstruction, and/or weight based dosing when appropriate to reduce radiation dose to as lowas reasonably achievable. Finalized by Eron Walton MD on 06/05/2025 8:[address] brain without contrast Result Date: 06/05/2025 Narrative: History: Stroke Technique: Contiguous axial images through the brain were obtained without the administration of intravenous contrast material. Automated exposure control was utilized. Comparison: 06/04/2025 Findings: The previous described acute intracranial hemorrhage involving the right thalamus and extending into the right lateral ventricle is again seen and has not changed significantly since the prior study. There is now increasing blood products in the dependent portion of thelateral ventricles bilaterally. No new areas of hemorrhage are identified. There is no evidence of major vessel infarct or mass lesion. Impression: Stable appearance of the acute hemorrhage in the right thalamus with intraventricular extension with more acute blood product now seen layering in the dependent portion of the lateral ventricles since the previous examination dated 06/04/2025. All CT scans at this facility use dose modulation, iterative reconstruction, and/or weight based dosing when appropriate to reduce radiation dose to as low as reasonably achievable. Fi nalized by Raghu Villegas MD on 06/05/2025 4:[address] abdomen and pelvis with contrast Result Date: 06/04/2025 Narrative: History: . fall Exam/Technique: Contiguous axial images are obtained of the abdomen and pelvis with 100 cc omnipaque 300 intravenous contrast. Coronal and sagittal reconstructions were performed and reviewed. Automatic dose exposure reduction technique utilized. Comparison: CT chest. Findings: LUNGS AND CARDIOMEDIASTINAL STRUCTURES: no abnormality. LIVER: is normal. SPLEEN: is normal. GALLBLADDER: normal. BILIARY TREE:Normal PANCREAS: normal. ADRENAL GLANDS are normal. RIGHT KIDNEY: Cortical scarring with significant caliectasis and hydronephrosis. The right ureter is dilated down to the urinary bladder. Cortical scarring. LEFT KIDNEY: Significant hydronephrosis and caliectasis. No discrete cortical scarring. The left ureter is not opacified and demonstrates thick wall with dilatation. 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 There is extensive disease also traction into the internal and external vessels. PORTAL VEIN: Patent IVC is normal. There is no paraaortic or paracaval adenopathy. FREE AIR: Absent SIGNIFICANT FREE FLUID:absent MESENTERY: Normal BODY WALL: Normal SMALL BOWEL AND TERMINAL ILEUM: normal. COLON: Colonic diverticulosiswith fecal loading without diverticulitis. APPENDIX: normal. HERNIAL ORIFICES:Fat-containing inguinal hernias.. PELVIC ORGANS: Prostate gland with dystrophic calcification. Significant degenerative labrum with thick wall and lobulated outline which may be due to chronic outlet obstruction, inflammation and neoplastic disease cannot be completely excluded. BONES AND SOFT TISSUES: Osteopenia degenerative changes. There is no loss of vertebral body height. The left hip arthroplasty partially visualized with no acute abnormality. Right hip degenerative changes noted. . 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 Significant hydronephrosis and caliectasis andhydroureter bilaterally with a thick walled urinary bladder likely related to obstruction or chronic inflammation and the enlarged prostate gland. Reflux may be noted bilaterally. All CT scans at this facility use dose modulation, iterative reconstruction, and/or weight based dosing when appropriate to reduce radiation dose to as low as reasonably achievable. Finalized by Bradford Marroquin MD on 06/04/2025 3:[address] chest with contrast Result Date: 06/04/2025 Narrative: CT CHEST W CONT 06/04/2025 3:18 PM INDICATION: Fall. Pain. COMPARISON: None TECHNIQUE: Contrast-enhanced CT images of the chest were obtained. All CT scans at this facility use dose modulation, iterative reconstruction, and/or weight based dosing when appropriate to reduce radiation doseto as low as reasonably achievable. FINDINGS: Evaluation compromised by arm positioning at time of scanning. Thyroid gland is unremarkable. No supraclavicular adenopathy. Ascending thoracic aorta measures 4.4 cm in diameter. Conventional branching of the aortic arch. Heart size is within normal limits. No pericardial effusion. Coronary artery calcifications are present. Main pulmonary trunk size is within normal limits. No enlarged mediastinal or hilar lymph nodes by size criteria. Trachea shows no acute abnormality. Secretions noted within the mid thoracic trachea. Mild nonspecific bilateral peribronchial wall thickening. No pleural effusion. No pneumothorax. Dependent atelectasis. No focal consolidation. Small right posterior diaphragmatic hernia containing fat. Chest wall soft tissue show no acute abnormality. No acute or aggressive osseous lesion. Degenerative changes of the bilateral shoulders. Remote left-sided rib fractures. Multilevel degenerative changes of the thoracic spinewith slightly exaggerated thoracic kyphosis. CT abdomen was performed concurrently but reported separately. IMPRESSION: No acute posttraumatic findings within the chest. Finalized by Eron Walton MD on 06/04/2025 3:[address] cervical reconstruction Result Date: 06/04/2025 Narrative: CLINICAL INFORMATION: Cervical spine pain. Neck pain PROCEDURE: Routine cervical spine protocol CT was obtained without intravenous contrast. Sagittal and coronal reformatted images were obtained from the axial data. Automated exposure control was utilized. All CT scans at this facility dose modulation, iterative reconstruction, and/or weight based dosing when appropriate to reduce radiation dose to as low as reasonably achievable. FINDINGS: Satisfactory alignment of the cervical spine. The vertebral body heights are preserved. No fracture. No malalignment. Mild multifocal degenerat nighat changes with endplate sclerosis and osteophyte formation. The atlantoaxial space is intact withdegenerative sclerosis. Posterior elements are intact with facet hypertrophy. No acute findings in the soft tissues. Please note, ligamentous injury is not well evaluated on a neutral position CT. Ifconcern for ligamentous injury consider flex-ex radiographs or MRI. IMPRESSION: * No acute osseous abnormalities in the cervical spine. Finalized by Stan Overton MD on 06/04/2025 3:[address] angiogram head Result Date: 06/04/2025 Narrative: CLINICAL INFORMATION: Altered mental status TECHNIQUE: CT angiogram of the head was performed following intravenous administration of nonionic intravenous contrast. 3-D maximum intensity projection images generated and reviewed under concurrent physician supervision. Automated exposure control was utilized. Arterial blood flow was measured to assist the stroke clinical team in the diagnosis of large vessel occlusion in patients undergoing screening for acute ischemic stroke using Rapid AI software when clinically indicated. All CT scans at this facility use dose modulation, iterative reconstruction, and/or weight based dosing when appropriate to reduce radiation dose to as low as reasonably achievable. COMPARISON: No relevant prior studies available. FINDINGS: Evaluation significantly limited due to patient motion. The internal carotid arteries are patent throughout their course in the carotid canal and cavernous segment with moderate atherosclerotic calcification. Evaluation of the anterior cerebral arteries is nondiagnostic due to patient motion. The proximal MCAs are patent, evaluation beyond this is nondiagnostic due to patient motion. The V4 segment of the vertebral arteries is patent, the basilar artery is patent. The P1 segment of the posterior cerebral arteries is patent however evaluation beyond this is nondiagnostic. IMPRESSION: * Partially nondiagnostic evaluation due to patient motion as described above. Moderate atherosclerotic calcification of the internal carotid arteries within the carotid canal and cavernous segment. Finalized by Amee Vargas MD on 06/04/2025 2:[address] angiogram carotid Result Date: 06/04/2025 Narrative: CLINICAL INFORMATION: Stroke. Neurologic deficit. COMPARISON: None PROCEDURE: CT angiogram of the neck with IV contrast. Sagittal and coronal reformatted images with 3-D Maximum intensity projection reconstructions constructed under concurrent physician supervision on a independent workstation for evaluation of carotid and vertebral arteries. Automated exposure control was utilized. The [place] Symptomatic carotid Endarterectomy Trial (NASCET) method for calculating the degreeof stenosis was utilized for stenosis measurements. 3-D reformatted images confirm the source data findings. stenosis is calculated as compared to the distal lumen of the ICA (NASCET). All CT scans at this facility dose modulation, iterative reconstruction, and/or weight based dosing when appropriate to reduce radiation dose to as low as reasonably achievable. FINDINGS: No acute findings at the partially visualized aortic arch. Three-vessel branching pattern. Subclavian arteries are patent. Thevertebral arteries originate from the subclavian arteries and are normal in course and caliber. Thecommon carotid arteries are patent. There is mild scattered atherosclerotic calcification. There isatherosclerotic calcification at the proximal bilateral internal carotid arteries with less than 50% stenosis. The internal carotid arteries are otherwise normal in course and caliber. Partially visualizing apices are unremarkable. No acute findings in the soft tissues. IMPRESSION: 1. No acute findings. No significant carotid or vertebral artery stenosis. 2. Mild atherosclerotic calcification at the bilateral carotid bifurcations and proximal internal carotid arteries with less than 50% stenosis. Finalized by Stan Overton MD on 06/04/2025 2:[address] brain without contrast Result Date: 06/04/2025 Narrative: CLINICAL INFORMATION: Altered mental status TECHNIQUE: CT BRAIN WO CONT CT images of thebrain were obtained. There is a 2.3 cm right thalamic hemorrhage with intraventricular extension ofblood products. Blood proximal within mid the lateral ventricles as well as the third ventricle. Nomidline shift or basilar cisternal effacement. Chronic ischemic changes appear moderate. IMPRESSION: 2.3 cm right thalamic hemorrhage with intraventricular extension. I personally called these findings to the emergency department at time of dictation. Dr. Vaughn aware of findings. All CT scans at this facility use dose modulation, iterative reconstruction, and/or weight based dosing when appropria te to reduce radiation dose to as low as reasonably achievable. Finalized by Cody Orourke MD on 06/04/2025 2:17 PM Char Khoury MD PGY2 Urology Resident 06/19/25 Cosigned by Liborio Mann Jr., MD at 06/19/2025 5:32 PM EDT Associated attestation - Liborio Mann Jr., MD - 06/19/2025 5:32 PM EDT Attending Attestation: I saw the patient. I participated and was physically present during the critical/dill portions of the service. I was directly involved in the management and treatment plan of the patient. I reviewed the resident's note. Additional Notes/Findings: Patient seems a bit more appropriate today. Difficult to evaluate for his orientation based on speech difficulties. IMPRESSIONS: 1. 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 Extensive telephone conversation 06/18/2025 with patient's discussion options of nonintervention with consideration of clinical expectations from his intracranial bleed, observation, cystoscopy, left retrograde pyelogram with possible placement left ureteral stent requiring a general anesthetic, or left nephrostomy tube placement request. The procedure of cystoscopic stent insertion was described. Risks of bleeding, infection, inability to place stent, possible need for retrograde pyelogram, stent side effects and need for timely removal or replacement, ureteroscopy, or nephrostomy tube, injury to urinary tract structures, and anesthetic risks including , mi, CVA, DVT, and PE were reviewed. Reviewed empirically there would be some increased risk with general anesthetic given his intracranial bleed. Also reviewed risks of nephrostomy tube including bleeding, infection, pain,inability to place tube, and injury to kidney or surrounding structures and need for maintenance ofnephrostomy tube. Further advised nephrostomy tube would give more definitive relief of any obstruction present, and I am not particularly confident that a stent will improve his renal function, and a nephrostomy tubemay not either. Reviewed and nephrostomy tube could always be removed if it fails to improve the situation. She states she spoken with family,, and they desire placement of a left ureteral stent, despite risks as discussed above. We reviewed this is not an emergent procedure. Anticoagulants do not need to be held. We also need medical clearance from Neurology service and comment about safety of proceeding at this time with the needed general anesthesia for the procedure versus deferring to a later date. I did read carefully neurology provider note, and verify that we certainly could perform a left stent placement as an inpatient, and given this patient's issues, that would actually probably be more practical if the procedure is performed. My concern is about subjecting him to a general anesthetic with his altered mental status already, and I would like to speak with Neurology about this directlyand then family as well.. We will follow with you. Thank you very much. I appreciate being asked to help with this patient's care. Liboroi Mann Jr., M.D. [facility] [phone] 5:31 p.m. on 06/19/2025 addendum: Very helpful direct telephone conversation today with urologist Dr. Shanks, who shares concerns regarding patient's acute clinical status and anesthetic/perioperativerisks and agrees we should wait at least 10 days prior to any surgical intervention given that is stent placement is certainly not an emergency procedure in this patient. I actual preference as mentioned to him would be left nephrostomy tube, but family was not in agreement with that. We will follow with you. Thank you very much. I appreciate being asked to help with this patient's care. Liborio Mnan Jr., M.D. [facility] [phone] * Lux Anglin MD - 06/18/2025 1:25 PM EDT Images from the original note were not included. [facility] [place] [facility] [place] [address] [place] [address] Service Pager: Reinier Patel MD, Interim Chief MD Henry Mulligan MD Margo Joubran, PA-C Alexandrea Vizzaccaro, PA-C Austin Howard, PA-C Manali Pragani, MD, Fellow Herbie Zhao MD, Fellow Ricardo Real MD, Fellow Katrin Jules MD, Fellow NO NEED to PAGE for NEW CONSULTS Secure Giving Assistant chat to Academic Endocrinology Page for immediate attention. Diabetes Management Service Progress Note Patient : Gianni Babin; 70 y.o. Location: A83 Admit Date: 06/04/2025 Hospital Day: Hospital Day: 15 Reason for Consult: Diabetes management Assessment/Plan Blood Glucose Monitoring Results, Interpretation Results from last 7 days Lab Units 06/18/25 1129 06/18/25 0750 06/18/25 0555 06/17/25 2111 06/17/25 1605 06/17/25 1124 06/17/25 0744 06/17/25 0608 BEDSIDE GLUCOSE mg/dL 242* 146* -- 166* 98 146* 163* -- GLUCOSE mg/dL -- -- 144* -- -- -- -- 155* Results/Impression/Conclusion: [] Basal/Bolus insulin imbalance with significant glycemic variability: consider adjusting basal insulin-bolus insulin ratio close to 50%-50% of TDD (total daily insulin) [] Overnight blood glucose reduction: consider decreasing basal insulin (Lantus) or bedtime correctional insulin (Humalog) [] Fasting hypoglycemia: consider decreasing basal insulin (Lantus) or bedtime correctional insulin(Humalog) [x] Postprandial hypoglyemia: consider decreasing prandial or meal insulin (Humalog) after [] breakfast [x] lunch [] evening meal [] nighttime snack [] Hypoglycemia due to over-correction [] Fasting hyperglycemia: consider increasing basal insulin (Lantus) [] Postprandial hyperglycemia: consider increasing prandial or meal insulin (Humalog) after [] breakfast [] lunch [] evening meal [] nighttime snack [] Hyperglycemia due to missing or improper timing of the scheduled dose of insulin/glucose-lowering medication Generally, change insulin by 10 to 30 % depending on the severity of glycemic excursions. For noncritically ill individuals (those not in the ICU), a glycemic goal of 100-180 mg/dL (premeal<140 mg/dL) is recommended. For most critically ill individuals (those in the ICU), a glycemic goal of 140- 180 mg/dL is recommended. For selected individuals (e.g., those undergoing cardiac surgery), more stringent glycemic goals (110-140 mg/dL) may be appropriate. Blood glucoses above 200 mg/dl are [facility] monitored performance measures. ASSESSMENT and PLAN: Gianni Babin has diabetes mellitus type 2 complicated by cardiovascular disease. Admitted with Intracerebral hemorrhage.. 1. Hypoglycemia due to current illness -Tube feeding discontinued on 06/12/25 -Patient on Pureed diet. -Continue current dose of insulin and will follow the patient blood glucose before diner and adjustthe insulin dose accordingly. 2. DM Type 2 with hyperglycemia Last HbA1c: Lab Results Component Value Date HGBA1C 8.3 (H) 06/07/2025 Results from last 7 days Lab Units 06/18/25 0555 CREATININE mg/dL 2.04* EGFR (CKD-EPI) NON-RACE DEPENDENT ml/min/1.73sq.m 35* [] Unstable-Improving but further adjustment needed as below [] Unstable-Worse and significant adjustment needed as below [x] Stable and no changes needed The following changes were made: Basal insulin: Glargine (or Lantus) : _10_units, [] daily AM [x] daily at bedtime [] BID (9 AM, 9 PM) Prandial or meal insulin: Lispro (or Humalog) [x] by insulin to carb ratio = _1_units: 10 grams of carbohydrate in a meal AC [] _ _ units every 4 hours for continuous tube feeding (Provide ~30% of TDI as basal insulin) Correctional insulin: Lispro (or Humalog): [x] 1-5 AC (above 150), 1-4 HS (above 200) [] 2-10 AC (above 150), 2-8 HS (above 200) [] 3-15 AC (above 150), 3-12 HS (above 200) For while NPO or tube feeding or TPN [] 1-5 q4h (above 180) [] 2-10 q4h (above 180) [] 3-15 q4h (above 180) Thank you for consulting our Diabetes Management Team (Endocrinology). We will continue to follow up. Subjective Chief Complaint Patient presents with Fall Visited the patient bedside he was sleeping without any fiend or family accompanied,. No over nightevent was documented. Will folloew the bllod glucose at dinner time and adjust the insulin accordingly. History: Gianni Babin is a 70-year-old male known case of hypertension, hyperlipidemia, DM type 2 admitted with a complaint of fall and had an intracranial hemorrhage found to be at the site of the right thalamic area and ventricular extension of the bleed. The patient was consulted for the diabetic management, he did not follow any electrical parts reconditioner in thecompliance with the metformin is questionable. No use of insulin previously. A1c is 8.3 on June 07, 2025. ROS/Subjective/Interval history: Food intake: [x] Good [] Decreased [] Poor [] NPO Symptom Yes No Comment Hypoglycemia [] [x] When: Decreased appetite [] [x] Nausea [] [x] Vomiting [] [x] Abdominal discomfort/pain [] [x] Review of Systems Constitutional: Negative for fever. Gastrointestinal: Negative for abdominal distention and abdominal pain. Endocrine: Negative for polydipsia and polyphagia. Neurological: Negative for headaches. Psychiatric/Behavioral: Negative for agitation and behavioral problems. Objective Physical Exam: BP 136/62 Pulse 69 Temp 36.4 ??C (97.5 ??F) (Oral) Resp 15 Ht 182.9 cm (6') Wt 100.2 kg (221 lb) SpO2 95% BMI 29.97 kg/m?? Physical Exam HENT: Head: Normocephalic. Nose: Nose normal. Mouth/Throat: Mouth: Mucous membranes are moist. Cardiovascular: Rate and Rhythm: Normal rate. Pulses: Normal pulses. Heart sounds: Normal heart sounds. Pulmonary: Effort: Pulmonary effort is normal. Abdominal: Palpations: Abdomen is soft. Musculoskeletal: General: Normal range of motion. Cervical back: Normal range of motion. Skin: General: Skin is warm. Intake/Output: Intake/Output Summary (Last 24 hours) at 06/18/2025 1507 Last data filed at 06/18/2025 1133 Gross per 24 hour Intake -- Output 1650 ml Net -1650 ml Steroids / Other Glycemia-Affecting Medications: [No] Diet/Nutrition: Dietary Orders (From admission, onward) Start Ordered 06/16/25 1635 Adult diet Level 4 Pureed diet; Level 3 Moderately Thick; No fluids on tray Diet effective midnight Question Answer Comment Diet Type: Level 4 Pureed diet Liquid Modifiers: Level 3 Moderately Thick Additional Liquid/Fluid Modifiers: No fluids on tray 06/16/25 1635 06/14/25 1054 Adult nutrition supplements Continuous Question Answer Comment Diet Type or Consistency: Level 4 Pureed diet Select Supplement: Thick Frozen Dessert Supplement Frequency: TID 06/14/25 1053 Recent Labs: Results from last 7 days Lab Units 06/18/25 0555 06/17/25 0608 06/16/25 0548 06/15/25 0659 06/14/25 0625 WBC x10E9/L 5.5 5.5 5.5 4.2 6.5 HEMOGLOBIN g/dL 13.6 14.1 13.2 13.1 13.9 HEMATOCRIT % 39.6 41.0 38.8* 38.5* 40.9 PLATELETS X10E9/L 225 237 213 201 217 Results from last 7 days Lab Units 06/18/25 0555 06/17/25 0608 06/16/25 0548 06/15/25 1752 06/15/25 0659 06/14/25 0625 SODIUM mmol/L 143 141 145 < > 148* 146 POTASSIUM mmol/L 4.4 4.3 4.8 < > 4.4 5.1* CHLORIDE mmol/L 110* 110* 112* -- 116* 112* CO2 mmol/L -- BUN mg/dL 55* 51* 54* -- 49* 39* CREATININE mg/dL 2.04* 1.99* 1.93* -- 1.81* 1.67* EGFR (CKD-EPI) NON-RACE DEPENDENT ml/min/1.73sq.m 35* 36* 37* -- 40* 44* CALCIUM mg/dL 9.5 9.4 9.3 -- 9.1 9.4 < > = values in this interval not displayed. Results from last 7 days Lab Units 06/18/25 0555 06/17/25 0608 06/16/25 0548 06/15/25 0659 06/14/25 0625 ALBUMIN g/dL 3.8 3.7 3.7 3.6 3.7 Last HbA1c: Lab Results Component Value Date HGBA1C 8.3 (H) 06/07/2025 Lux Anglin MD PGY 1 Internal Medicine [facility] Cosigned by Henry Godwin MD at 06/18/2025 3:29 PM EDT Associated attestation - Henry Godwin MD - 06/18/2025 3:29 PM EDT I have discussed the patient's history, exam findings and reviewed pertinent studies with Dr. Anglin. I personally evaluated this patient on the day of the encounter, performed dill portion(s) of the service, participated in the management and agree with overall evaluation plan as delineated above. I have the following additional comments: 70 year old male with T2DM admitted for ICH - We have updated inpatient glucose lowering regimen as follows: Glargine 10 units daily + lispro CR 10 + STUART, potential modification if preprandial hyperglycemia persists We will continue to monitor blood glucose trends and adjust glucose lowering regimen as appropriate, while patient is in the hospital Henry Godwin MD 06/18/25 * Adan Plasencia MD - 06/18/2025 10:27 AM EDT Images from the original note were not included. Nephrology Daily Progress Note INTERVAL HISTORY: Opens his eyes but not answering any of my questions. VITAL SIGNS TREND: Vitals: 06/18/25 0358 06/18/25 0500 06/18/25 0743 06/18/25 0746 BP: 133/78 136/62 136/62 Pulse: 64 65 66 Resp: 15 15 13 Temp: 36.7 ??C (98.1 ??F) 36.4 ??C (97.5 ??F) TempSrc: Oral Oral SpO2: 97% 95% 95% Weight: 100.2 kg (221 lb) Height: INTAKE/OUTPUT: Intake/Output Summary (Last 24 hours) at 06/18/2025 1027 Last data filed at 06/18/2025 0400 Gross per 24 hour Intake -- Output 1000 ml Net -1000 ml No intake/output data recorded. WEIGHT: Last 3 Weight Readings 06/16/25 0500 06/17/25 0500 06/18/25 0500 Weight: 101.7 kg (224 lb 3.3 oz) 100.4 kg (221 lb 5.5 oz) 100.2 kg (221 lb) PHYSICAL EXAM: Blood pressure 136/62, pulse 66, temperature 36.4 ??C (97.5 ??F), temperature source Oral, resp. rate 13, height 182.9 cm (6'), weight 100.2 kg (221 lb), SpO2 95%. Temp: [36.4 ??C (97.5 ??F)-37.1 ??C (98.8 ??F)] 36.4 ??C (97.5 ??F) Pulse: [64-80] 66 Resp: [13-23] 13 BP: (114-136)/(56-89) 136/62 SpO2: [95 %-100 %] 95 % O2 Device: None (Room air) General appearance: opens his eyes, in no apparent distress. HEENT: no JVD, no lymphadenopathy. Heart exam: normal S1-S2 Lungs: clear to auscultation bilaterally Abdomen: soft, no tenderness, no guarding, positive bowel sounds Extremities: no edema Vascular: adequate pulses and no carotid bruits. Musculoskeletal: no joint tenderness or swelling. LABORATORY EVALUATION: Results from last 7 days Lab Units 06/18/25 0555 06/17/25 0608 06/16/25 0548 06/15/25 1752 06/15/25 0659 06/14/25 0625 SODIUM mmol/L 143 141 145 147* 148* 146 POTASSIUM mmol/L 4.4 4.3 4.8 4.5 4.4 5.1* CHLORIDE mmol/L 110* 110* 112* -- 116* 112* CO2 mmol/L 23 -- 24 25 ANION GAP mmol/L 10 5 10 -- 8 9 BUN mg/dL 55* 51* 54* -- 49* 39* CREATININE mg/dL 2.04* 1.99* 1.93* -- 1.81* 1.67* CALCIUM mg/dL 9.5 9.4 9.3 -- 9.1 9.4 MAGNESIUM mg/dL 2.7* 2.6 2.6 -- 2.8* 2.5 PHOSPHORUS mg/dL 4.7 4.7 5.1* -- 4.5 4.1 CALCIUM, IONIZED mg/dL 5.0 5.0 4.6 -- 4.7 4.9 Results from last 7 days Lab Units 06/18/25 0555 06/17/25 1414 06/17/25 0608 06/16/25 0548 06/15/25 0659 06/14/25 0625 PROTEIN TOTAL g/dL 7.0 -- 7.0 6.9 6.6 7.1 ALBUMIN g/dL 3.8 -- 3.7 3.7 3.6 3.7 AST U/L -- 25 32 27 28 ALT U/L -- 24 17 15 BILIRUBIN, TOTAL mg/dL 0.6 -- 0.6 0.5 0.5 0.6 BILIRUBIN URINE -- Negative -- -- -- -- ALK PHOS U/L 89 -- 87 86 77 76 Results from last 7 days Lab Units 06/18/25 0555 06/17/25 0608 06/16/25 0548 06/15/25 0659 06/14/25 0625 WBC x10E9/L 5.5 5.5 5.5 4.2 6.5 HEMOGLOBIN g/dL 13.6 14.1 13.2 13.1 13.9 HEMATOCRIT % 39.6 41.0 38.8* 38.5* 40.9 PLATELETS X10E9/L 225 237 213 201 217 @RESUFAST(IRON,TIBC,FERRITIN,IRONSAT,FOLATE,[id number]))@ Results from last 7 days Lab Units 06/18/25 0750 06/18/25 0555 06/17/25 2111 06/17/25 1605 06/17/25 1124 BEDSIDE GLUCOSE mg/dL 146* -- 166* 98 146* GLUCOSE mg/dL -- 144* -- -- -- Results from last 7 days Lab Units 06/12/25 0424 BNP pg/mL 101* CURRENT MEDICATIONS: amLODIPine, 10 mg, oral, Daily aspirin, 81 mg, oral, Daily atorvastatin, 20 mg, oral, Nightly carvediloL, 12.5 mg, oral, BID cefTRIAXone (ROCEPHIN) IV, 1,000 mg, intravenous, Q24H heparin (porcine), 5,000 Units, subcutaneous, Q8H [facility] hydrALAZINE, 100 mg, oral, Q8H CATRINA insulin glargine, 10 Units, subcutaneous, Daily insulin lispro, 1-10 Units, subcutaneous, With meals and nightly insulin lispro, 1-5 Units, subcutaneous, With meals and nightly melatonin, 5 mg, oral, Nightly QUEtiapine, 25 mg, oral, Nightly PROBLEM LIST: Acute kidney injury on Chronic kidney disease stage IIIA with baseline creatinine around 1.3-1.4 mg/dL: CT scan of abdomen pelvis with contrast on 06/04/2025 showed cortical scarring with significantcaliectasis and hydronephrosis right ureter is dilated down to the urinary bladder. Cortical scarring. Left kidney significant hydronephrosis and caliectasis no discrete cortical scarring. Renal ultrasound showed right hydronephrosis and mild left hydronephrosis. Urine protein to creatinine ratio is 1 g/g. Hepatitis panel and HIV are negative C3 is normal. C4 is on the high side which is 53. Rheumatoid factor is normal. [id number]-[id number] DNA is negative. LUIZA is negative. Glomerular basement membrane antibodies are negative. SPEP is negative for M bands. Anca was negative. 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 IMPRESSION: 1. Acute kidney injury on chronic kidney disease stage IIIA with a baseline creatinine of about 1.3-1.4. Creatinine seems to have plateaued. Urine output is acceptable. 2. Bilateral hydronephrosis status post Mayo catheter placement. Urology was consulted. 3. Hypertensive emergency with the acute kidney injury and intraparenchymal intracranial hemorrhage: Goal systolic blood pressure is 130 to 150. Blood pressure currently well controlled. 4. Hypernatremia : Improved With hypotonic fluids. 5. Altered mental status secondary to right intraparenchymal hemorrhage with intraventricular extension likely secondary to hypertensive emergency: Neurointerventional is following. PLAN: 1. Switch hypotonic fluids to half-normal saline 2. Continue current antihypertensive regimen 3. Continue to follow electrolytes and replace per sliding scale as needed 4. Keep Mayo catheter in for now 5. Reassess need for IV fluids in a.m. Adan Plasencia M.D. For questions please call: Answering Service at [phone] Or Office at [phone] This note was created with the assistance of a speech-recognition program. Although the intention is to generate a document that actually reflects the content of the visit, no guarantees can be provided that every mistake has been identified and corrected by editing. * Guzman Lees MD - 06/18/2025 9:13 AM EDT Images from the original note were not included. Jr. Mackenzie, Kim Capone., Peter Bhatti M.D., Gianni Escalante M.D., Leatha Fajardo M.D., Candie Schreiber M.D., Carl Bess M.D., Raghu Davila M.D., Arash Lan M.D, Dk Tam M.D. Hospital day: 14 Chief Complaint: Bilateral hydroureteronephrosis Subjective: No acute overnight events reported. Vital signs stable and afebrile. Patient appeared confused and disorientated this morning. Mayo catheter draining clear yellow urine. Urine output last 24 hours, 1000 cc. On labs, no leukocytosis and hemoglobin stable. Creatinine 2.04 (1.99). No new events reported by nursing staff. Impression: Patient is a 70-year-old male with past medical history of lobe of the left lower extremity DVT on chronic Eliquis, diabetes, and hypertension who presented to [facility] on 06/04/2025 due to altered mental status. Patient was noted to have an intra thalamic hemorrhage, secondary to a fall that same day. Additionally, CT imaging revealed bilateral hydroureteronephrosis, more pronounced on the left. Throughout this hospital admission, patient with a Mayo catheter and creatinine with increasing trend. Mag 3 nuclear scan suggestive of left-sided obstruction Plan: Diet as tolerated Nausea and pain control via p.r.n. medication Trend creatinine Maintain Mayo catheter Monitor urine output We will reach out to medicine regarding preoperative clearance for possible left-sided ureteral stent placement. Family states her desire for stent placement. Rest of medical management per primary and other consultants Patient Vitals for the past 24 hrs: BP Temp Temp src Pulse Resp SpO2 Weight 06/18/25 0746 136/62 36.4 ??C (97.5 ??F) Oral 66 13 95 % -- 06/18/25 0743 136/62 -- -- 65 15 95 % -- 06/18/25 0500 -- -- -- -- -- -- 100.2 kg (221 lb) 06/18/25 0358 133/78 36.7 ??C (98.1 ??F) Oral 64 15 97 % -- 06/17/25 2345 123/56 36.6 ??C (97.8 ??F) Axillary 71 23 100 % -- 06/17/252199 -- -- -- 73 19 99 % -- 06/17/251999 -- -- -- 70 13 95 % -- 06/17/25 1925 114/73 37.1 ??C (98.8 ??F) Oral 71 16 96 % -- 06/17/25 1549 132/89 36.8 ??C (98.3 ??F) Oral 80 16 97 % -- 06/17/25 1339 123/86 -- -- 70 -- -- -- 06/17/25 1128 114/66 36.8 ??C (98.2 ??F) Oral 67 20 98 % -- Intake/Output Summary (Last 24 hours) at 06/18/2025 0914 Last data filed at 06/18/2025 0400 Gross per 24 hour Intake -- Output 1000 ml Net -1000 ml Results from last 7 days Lab Units 06/18/25 0750 06/18/25 0555 06/17/25 1605 06/17/25 1414 06/17/25 0744 06/17/25 0608 WBC x10E9/L -- 5.5 -- -- -- 5.5 HEMOGLOBIN g/dL -- 13.6 -- -- -- 14.1 MCV fL -- 93 -- -- -- 93 MCHC g/dL -- 34.3 -- -- -- 34.4 PLATELETS X10E9/L -- 225 -- -- -- 237 SODIUM mmol/L -- 143 -- -- -- 141 POTASSIUM mmol/L -- 4.4 -- -- -- 4.3 PHOSPHORUS mg/dL -- 4.7 -- -- -- 4.7 CALCIUM mg/dL -- 9.5 -- -- -- 9.4 ANION GAP mmol/L -- 10 -- -- -- 5 CREATININE mg/dL -- 2.04* -- -- -- 1.99* BUN mg/dL -- 55* -- -- -- 51* BEDSIDE GLUCOSE mg/dL 146* -- < > -- < > -- GLUCOSE mg/dL -- 144* -- -- -- 155* ALBUMIN g/dL -- 3.8 -- -- -- 3.7 BILIRUBIN, TOTAL mg/dL -- 0.6 -- -- -- 0.6 BILIRUBIN URINE -- -- -- Negative -- -- AST U/L -- 24 -- -- -- 25 ALT U/L -- 27 -- -- -- 29 ALK PHOS U/L -- 89 -- -- -- 87 < > = values in this interval not displayed. Microbiology Results Procedure Component Value Units Date/Time Urine Culture Urine, Indwelling Catheter [[id number]] Collected: 06/17/25 1348 Specimen: Urine, Indwelling Catheter Updated: 06/17/25 1418 Blood culture #1 [[id number]] Collected: 06/17/25 1320 Specimen: Blood, Venous Updated: 06/18/25202 CULTURE RESULTS NO GROWTH <24 HRS Narrative: Suboptimal volume of blood collected, Results may be affected. Blood culture #2 [[id number]] Collected: 06/17/25 1320 Specimen: Blood, Venous Updated: 06/18/25202 CULTURE RESULTS NO GROWTH <24 HRS Narrative: Suboptimal volume of blood collected, Results may be affected. Weight: 100.2 kg (221 lb) Results from last 7 days Lab Units 06/18/25 0750 06/18/25 0555 06/17/25 0744 06/17/25 0608 06/16/25 0755 06/16/25 0548 POTASSIUM mmol/L -- 4.4 -- 4.3 -- 4.8 CHLORIDE mmol/L -- 110* -- 110* -- 112* CO2 mmol/L -- 23 -- 26 -- 23 BUN mg/dL -- 55* -- 51* -- 54* CREATININE mg/dL -- 2.04* -- 1.99* -- 1.93* BEDSIDE GLUCOSE mg/dL 146* -- < > -- < > -- GLUCOSE mg/dL -- 144* -- 155* -- 171* CALCIUM mg/dL -- 9.5 -- 9.4 -- 9.3 < > = values in this interval not displayed. Results from last 7 days Lab Units 06/18/25 0555 06/17/25 0608 06/16/25 0548 WBC x10E9/L 5.5 5.5 5.5 HEMOGLOBIN g/dL 13.6 14.1 13.2 HEMATOCRIT % 39.6 41.0 38.8* PLATELETS X10E9/L 225 237 213 Lab Results Component Value Date SPECIFICGRA 1.015 06/17/2025 LEUKOCYTE Small (A) 06/17/2025 GLU 146 (H) 06/18/2025 UROBILINOGEN <1.1 eu/dL 06/17/2025 Additional Lab/culture results: Microbiology Results Procedure Component Value Units Date/Time Urine Culture Urine, Indwelling Catheter [[id number]] Collected: 06/17/25 1348 Specimen: Urine, Indwelling Catheter Updated: 06/17/25 1418 Blood culture #1 [[id number]] Collected: 06/17/25 1320 Specimen: Blood, Venous Updated: 06/18/25 020 CULTURE RESULTS NO GROWTH <24 HRS Narrative: Suboptimal volume of blood collected, Results may be affected. Blood culture #2 [[id number]] Collected: 06/17/25 1320 Specimen: Blood, Venous Updated: 06/18/25 020 CULTURE RESULTS NO GROWTH <24 HRS Narrative: Suboptimal volume of blood collected, Results may be affected. Lab Results Component Value Date SPECIFICGRA 1.015 06/17/2025 LEUKOCYTE Small (A) 06/17/2025 GLU 146 (H) 06/18/2025 UROBILINOGEN <1.1 eu/dL 06/17/2025 Physical Exam: Constitutional: NAD. Chronically ill HEENT: NCAT, PERRLA, EOMI Card: RRR, extremities warm well perfused Pulm: no SOB, no increased WOB Abdominal: no tenderness, distension, pain. exam: no suprapubic tenderness, no flank pain. Mayo catheter in place, clear yellow urine MSK: no overt deformities Neuro: no focal deficits Interval Imaging Findings: X-ray chest 1 view Result Date: 06/17/2025 Narrative: Single view chest History:Sepsis Difficulty breathing, shortness of breath Comparison: 06/11/2025 Findings: Single portable view of the chest. Stable cardiac mediastinal silhouette. No newfocal opacity, effusion or pneumothorax. Impression: No definitive acute process. Finalized by Peter Sarabia MD on 06/17/2025 3:12 PM Vas venous duplex lwr bilateral Result Date: 06/15/2025 Narrative: Right: Limited visualization of veins in the thigh and calf due to body habitus and patient positioning. Lower extremity deep veins are compressible with spontaneous phasic spectral Doppler waveforms; superficial veins are compressible without intraluminal content. Left: Limited visualization of veins in the thigh and calf due to body habitus and patient positioning. Lower extremity deep veins are compressible with spontaneous phasic spectral Doppler waveforms; superficial veins are compressible without intraluminal content. Conclusions: BILATERAL: NO EVIDENCE of deep or superficial vein thrombosis of the lower extremities with limited visualization of lower extremity vein segments as described above. Recommendations: Any questions prior to finalization, please call the readingphysician during normal business hours at the phone number beside their name. NM renogram with lasix Result Date: 06/15/2025 Narrative: NM RENOGRAM WITH LASIX CLINICAL INDICATION: evaluate for obstructive uropathy . PREPARATION: Oral hydration. TECHNIQUE: Following intravenous injection of 4.4 mCi of Tc-99m MAG-3, dynamic renal blood flow and excretory phase imaging with quantitative analysis were performed. At 7 minutespost- tracer, intravenous furosemide, 40 mg, was administered and sequential imaging monitoring diuretic response and quantitative analysis were performed COMPARISON: Ultrasound dated 06/07/2025. Patient demonstrated mild right hydronephrosis and left hydronephrosis. There was prominence of both extrarenal pelvis. FINDINGS: Timing of renal blood flow, cortical uptake, and excretion are prompt and symmetric. Parenchymal uptake is asymmetrical. Some delay and decrease in the right No gross cortical defect. The effective renal plasma flow in the right kidney 139.6mL/m and the left kidney is 65.1 mL/m. Time to maximum radiotracer uptake on the right is 12 minutes and the left is 8 minutes.(Normal <= 5 min.) Relative uptake right kidney 68% and left kidney 32%. 20min after T peak/max:Mild bilateral delayed. (Normal<= 35%). After administration of intravenous furosemide, there was promptclearance of radiotracer from the right and left renal pelves with T-1/2 on the right of 64.8 minutes and the left 85.1 minutes. (T1/2 Normal<= 10-15 min). IMPRESSION: 1. No scintigraphic evidenceof high-grade obstruction. 2. Split renal function 32% on the left and 68% on the right. 3. There is persistent retention of activity in the dilated collecting systems no obstruction on the right andno high-grade obstruction but low-grade obstruction or stasis on the left may be present. Finalized by Bradford Marroquin MD on 06/15/2025 4:29 PM Fluoroscopy swallow motility function Result Date: 06/14/2025 Narrative: FL SWALLOW MOTILITY FUNCTION HISTORY: Oropharyngeal dysphagia COMPARISON: Swallow study 06/12/2025 TECHNIQUE: Video fluoroscopic swallow study was performed in conjunction with speech pathologist. Barium contrast materials of varying consistencies administered. FINDINGS: Fluoroscopy time: 2.4 minutes Reference air kerma: 6.3 mGy Runs: 11 Thin: Penetration. Mildly thick: Penetration. Moderately thick: No penetration or aspiration. Applesauce: No penetration or aspiration. IMPRESSION: 1. Abnormal swallow study as outlined above. 2. Please correlate with dedicated speech pathology report for additional details and recommendations. Approved by Med Figueroa MD on 06/14/2025 2:33 PM IStiven MD have personally reviewed the image(s) and agree with and/or edited the report Finalized by Stiven Vu MD on 06/14/2025 2:38 PM Vas renal artery duplex complete Result Date: 06/13/2025 Narrative: Right: Non-visualization of the renal artery, renal vein, and parenchymal arteries due to patient body habitus, positioning, and excessive patient breathing. Normal kidney size noted (9-12cm) with color flow. Left: Non- visualization of the renal artery and renal vein due to patient bodyhabitus, positioning, and excessive patient breathing. Normal kidney size noted (9-12 cm) with color flow. Normal parenchymal resistive index (RI), normal range is 0.53- 0.70 noted. Conclusions: RIGHT:Non-visualization of the abdomen, as describe above Technically inadequate renal duplex evaluation as described above, suggest alternative imaging modality if clinically warranted.LEFT:Non-visualization of the renal artery and renal veins due to body habitus; alternative imaging is recommended. Normal kidney size Recommendations: Any questions prior to finalization, please call the reading physician during normal business hours at the phone number beside their name. Fluoroscopy swallow motility function Result Date: 06/12/2025 Narrative: FL SWALLOW MOTILITY FUNCTION HISTORY: Oropharyngeal dysphagia COMPARISON: None TECHNIQUE: Video fluoroscopic swallow study was performed in conjunction with speech pathologist. Barium contrast materials of varying consistencies administered. FINDINGS: Fluoroscopy time: 2.3 minutes Reference air kerma: 5.1 mGy Runs: 17 Thin: Aspiration. Mildly thick: Penetration. Moderately thick: Penetration. Applesauce: No penetration or aspiration. Fruit: No penetration or aspiration. Cracker: No penetration or aspiration. IMPRESSION: 1. Abnormal swallow study as outlined above. 2. Please correlate with dedicated speech pathology report for additional details and recommendations. Approved by Med Figueroa MD on 06/12/2025 10:32 AM IUli MD have personally reviewed the image(s) and agree with and/or edited the report Finalized by Uli Dinh MD on 06/12/2025 10:47 AM X-ray abdomen NG Tube placement 1 view Result Date: 06/12/2025 Narrative: XR ABD NG TUBE PLACEMENT 1 VIEW Clinical history:NG placement enteric catheter placementand verification Comparison: 06/09/2025 Impression: Enteric catheter tip in the region of the distal stomach. Finalized by Peter Sarabia MD on 06/12/2025 4:[address] brain without contrast Result Date: 06/11/2025 Narrative: STUDY: CT HEAD WITHOUT CONTRAST CLINICAL HISTORY: Intraparenchymal hematoma COMPARISON: 06/05/2025 TECHNIQUE: CT head was performed without contrast utilizing axial reconstruction with images reviewed in bone and brain windows. Automated exposure control was utilized. FINDINGS: Focal hemorrhage involving the right thalamus with intraventricular extension. On today's exam there is significantly less. Blood within the ventricles. Ventricular size stable. The hemorrhage is approximately2.4 cm in similar to the previous exam. No new hemorrhages. Motion artifact present. No midline shift nor mass effect. Chronic microvascular ischemic changes present. Chronic inflammation involving the sphenoid sinus. IMPRESSION: * Stable hemorrhage involving the right thalamus. There is persistentbut reduced intraventricular blood as compared to previous exam. No new nor advancing abnormality All CT scans at this facility use dose modulation, iterative reconstruction, and/or weight based dosing when appropriate to reduce radiation dose to as low as reasonably achievable. Finalized by Lucas Salvador MD on 06/11/2025 7:13 AM X-ray chest 1 view Result Date: 06/11/2025 Narrative: CHEST ONE VIEW COMPARISON: 06/09/2025 HISTORY: Pulmonary edema. Impression: 1. Enteric catheter extends at least to the diaphragm, with the discs catheter not well-visualized due to body habitus. 2. Stable cardiomediastinal silhouette. Pulmonary vasculature is now within normal limits. 2. No evidence for a pneumothorax, focal consolidation, or pleural effusion. Finalized by Mason Berry MD on 06/11/2025 3:53 AM Vas venous duplex lwr bilateral Result Date: 06/09/2025 Narrative: Right: Portable lower extremity deep vein thrombosis (DVT) exam performed. Common femoral, femoral, popliteal and deep calf muscle veins are compressible without intraluminal content. Spontaneous pulsatile common femoral, femoral and popliteal spectral Doppler signals. Evaluation of superficial veins was not performed. Left: Portable lower extremity deep vein thrombosis (DVT) exam performed. Minimally dilated partially compressible popliteal, posterior tibial and peroneal veins with isoechoic intraluminal content andspontaneous spectral Doppler signals. Common femoral, femoral and deep calf muscle veins are compressible without intraluminal content. Spontaneous puldatile common fe moral, and femoral spectral Doppler signals. Evaluation of superficial veins was not performed. General: In-patient, bedside examination. Conclusions: RIGHT:NO EVIDENCE of deep vein thrombosis (DVT) of the lower extremity. LEFT:CHRONIC post thrombotic popliteal venous disease. CHRONIC post thrombotic tibioperoneal venous disease. Recommendations: Any questions prior to finalization, please call the reading physician during normal business hours at the phone number beside their name. X-ray chest 1 view Result Date: 06/09/2025 Narrative: Clinical History: Hypoxia. Portable Upright chest: 06/09/2025 Comparison: 06/07/2025 Findings: A single portable view of the chest was obtained. The enteric tube extends through the mediastinum to the upper abdomen, the tip beyond the field of visualization. There is no acute pulmonary in filtrate. The aorta is tortuous with mild passive prominent centrally. There is no pneumothorax. IMPRESSION: Aortic tortuosity with no definite change. Mild vascular prominence with no peripheral infiltrate. Finalized by Gianni Levy MD on 06/09/2025 12:40 PM X-ray abdomen NG Tube placement 1 view Result Date: 06/09/2025 Narrative: EXAM: XR ABD NG TUBE PLACEMENT 1 VIEW CLINICAL INFORMATION: NG placement. COMPARISON: 06/08/2025 FINDINGS: There is a feeding tube with the tip extending into the stomach. The visualized lungs are well aerated. There are no focal consolidations. IMPRESSION: Feeding tube tip in stomach. Wo rkstation:[id number] Finalized by Alexis Sánchez MD on 06/09/2025 4:53 AM Echo complete W/ contrast Result Date: 06/08/2025 Narrative: Left Ventricle: Left ventricle appears normal in size. Systolic function is normal with an ejection fraction of 55-60%. X-ray abdomen NG Tube placement 1 view Result Date: 06/08/2025 Narrative: XR ABD NG TUBE PLACEMENT 1 VIEW Clinical history:ng placement enteric catheter placementand verification Comparison: 06/08/2025 Impression: Enteric catheter tip in the expected location of the proximal stomach. Finalized by Peter Sarabia MD on 06/08/2025 12:47 PM X-ray abdomen NG Tube placement 1 view Result Date: 06/08/2025 Narrative: History: NG tube placement Exam/Technique: Supine views of the abdomen were obtained. Comparison: 06/07/2025 Findings: A feeding tube is again seen with its tip just distal to the gastroesophageal junction. Advancement further the stomach is recommended. The visualized portions of the bowel gas pattern are nonspecific. IMPRESSION: Feeding tube has its tip just distal to the gastroesophageal junction and advancement further into the stomach is recommended. Finalized by Raghu Villegas MD on 06/08/2025 2:56 AM Ultrasound retroperitoneal complete with duplex Result Date: 06/07/2025 Narrative: History: Acute renal failure Exam/Technique: Ultrasound of the kidneys with duplex Doppler. Comparison: Contrast-enhanced CT from 06/04/2025 Findings: On the right there is prominent dilatation of the extrarenal pelvis redemonstrated with just minimal calyceal dilatation. On the left there is very severe renal pelvis dilatation and mild dilatation of calyces. No focal renal lesions aredisplayed on either side with patient body habitus and positioning significantly compromising depiction of the right kidney.. The right kidney measures 11.2 centimeters in length , and the left kidney 12.7 centimeters. Resistive indices in the right kidney range from 0.57-0.62, and in the left kidney from 0.63-0.69 The urinary bladder is decompressed with a Mayo catheter in place. IMPRESSION: Mild right hydronephrosis and mild left hydronephrosis are decreased from the appearance on CT 3 days ago with significant dilatation of both extrarenal pelves remaining. Finalized by Mason Cruz MD on 06/07/2025 9:30 PM X-ray abdomen NG Tube placement 1 view Result Date: 06/07/2025 Narrative: Portable upright single view abdomen dated 06/07/2025 at 2:28 PM INDICATION: NG tube placement. FINDINGS: Comparison is 06/06/2015. Feeding tube tip at the GE junction. IMPRESSION: 1. Feeding tube tip at the GE junction. Finalized by Mamie Nazario MD on 06/07/2025 2:32 PM X-ray chest 1 view Result Date: 06/07/2025 Narrative: Single view chest History:Congestion Difficulty breathing, shortness of breath Comparison: None Findings: Single portable view of the chest. Enteric catheter extends below the inferior edge of the radiograph. There is hypoventilatory change with lower lung atelectasis. Mild vascular congestion. Impression: Mild vascular congestion with bilateral lower lung atelectasis. Finalized by Peter Sarabia MD on 06/07/2025 10:09 AM MR brain with and without contrast Result Date: 06/07/2025 Narrative: EXAM:MR BRAIN W WO CONT INDICATION: IPH neuro deficit COMPARISON: CT of the head from 06/05/2025 TECHNIQUE: Multiplanar multisequence pre and post contrast MR sequences through the head/brain. CONTRAST: 20mL ProHance IV. BRAIN FINDINGS: The study is motion degraded Brain Parenchyma: Redemonstrated intraparenchymal hematoma centered along the anterior right thalamus. The overall size and configuration of the hematoma is not significantly changed given variation in imaging technique. Maximal dimension is approximately 2.4 cm. Intraventricular extension into the adjacent anterior bodyof the right lateral ventricle. There is layering blood within the bilateral occipital horns, similar volume to prior from 06/05/2025. There are scattered bilateral acute to subacute infarcts within the right basal ganglia and bilateral centrum semiovale. No definite evidence of convexity subarachnoid hemorrhage however evaluation is limited due to motion. Intracranial Flow-Voids: Arterial and gabi ous sinus flow voids appear normal. Orbits: Normal Paranasal Sinuses: Normal Mastoid Air Cells: Bilateral mastoid effusions Cranium: Normal Extracranial Soft Tissues: Normal IMPRESSION: Significantlylimited study due to motion. Redemonstrated right thalamic hematoma with intraventricular extension. Overall size and morphology is not significantly changed compared to prior CT. Similar volume of intraventricular layering blood products. Enhancement along the anterior basal ganglia likely involving the putamen and caudate head likely sequelae of subacute infarct. There is corresponding diffusion restriction. Characterization is limited by motion. Metastatic disease favored to be less likely in the absence of a known malignancy. Consider short interval follow-up to assess for expected evolution of the infarcted territories and hematoma. Finalized by Peter Ramon on 06/07/2025 12:03 AM EEG Video Monitoring Daily Result Date: 06/06/2025 Narrative: Images from the original result were not included. [facility] Video/EEG Monitoring REPORT EEG Service Date(s): 06/06/25 from 06:30 until 10:35 Date of Report: 06/06/25 History: Gianni Babin is 70 y.o. male with a history of intraparenchymal hemorrhage and encephalopathy who is undergoing video/EEG monitoring to evaluate for seizures. Centrally active medications: Keppra Procedure: This video/EEG monitoring was acquired with electrodes placed according to the [id number] electrode placement system,using collodion. The EEG was reviewed using multiple, reformattablemontages. Closed captioned video monitoring of behavior, synchronous with EEG recording is includedin the analysis, as is digital/spectral analysis of EEG waveforms. A single EKG channel was recorded for cardiac rhythm monitoring. Technical description: Background over the left hemisphere is composed of 5-10 ??V frontal and centrally predominant intermittent beta frequency intermixed with 20-25 ??V posterior slow alpha and theta frequencies. There is an 8 Hz posterior dominant rhyhtm seen overthe left hemisphere, but not on the right side. Background over the right hemisphere is composed of5 ??V frontal and centrally predominant intermittent beta frequency intermixed with 20-30 ??V posterior alpha>theta frequency and intermittent right temporal polymorphic delta frequencies. No epileptiform abnormalities are noted in the form of spikes or sharp waves. No electrographic seizure activity is recorded. Stage II sleep is noted, correlated with the presence of bilaterally symmetric spindle activity and generalized delta frequencies. Events: None. EEG diagnosis: This video/EEG monitoring is abnormal due to: Focal intermittent right temporal slowing.. Mild generalized background slowing. EEG interpretation: This video/EEG monitoring is abnormal due to the presence of intermittent right temporal slowing, consistent with structural lesion. Mild generalized background slowing is consistent with encephalopathy of nonspecific etiology. No epileptiform abnormalities or seizures wererecorded. Video/EEG monitoring may be continued or discontinued at the discretion of the referring provider. Jennifer German M.D., Ph.D. [facility] X-ray abdomen NG Tube placement 1 view Result Date: 06/06/2025 Narrative: ABDOMEN RADIOGRAPH DATE: 06/06/2025 11:32 AM CLINICAL INDICATION: Verify NG tube placement TECHNIQUE: Single radiograph of the lower chest/upper abdomen COMPARISON: None FINDINGS: Lung bases: Unremarkable Bowel: No free air under the diaphragm. Bowel gas pattern appears nonobstructive. Bones / soft tissue: No acute appearing bony abnormality is noted Other: Enteric tube projects below the diaphragm, with the tip in the location of the upper stomach. IMPRESSION: 1. Enteric tube tip location is in the upper stomach, approximately 10 cm beyond the GE junction Finalized by Talat Elkins MD on 06/06/2025 11:38 AM EEG Video Monitoring Daily Result Date: 06/06/2025 Narrative: Images from the original result were not included. [facility] Video/EEG Monitoring REPORT EEG Service Date(s): 06/05/25 @ 06:30 until @ 06:30 Date of Report: 06/06/25 History: Gianni Babin is 70 y.o. male with a history of intraparenchymal hemorrhage and encephalopathywho is undergoing video/EEG monitoring to evaluate for seizures. Centrally active medications: Keppra Procedure: This video/EEG monitoring was acquired with electrodes placed according to the [id number] electrode placement system,using collodion. The EEG was reviewed using multiple, reformattable montages. Closed captioned video monitoring of behavior, synchronous with EEG recording is included in the analysis, as is digital/spectral analysis of EEG waveforms. A single EKG channel was recorded for cardiac rhythm monitoring. Technical description: Background over the left hemisphere iscomposed of 5-10 ??V frontal and centrally predominant intermittent beta frequency intermixed with 20-25 ??V posterior slow alpha and theta frequencies. There is an 8 Hz posterior dominant rhyhtm seen over the left hemisphere, but not on the right side. Background over the right hemisphere is composed of 5 ??V frontal and centrally predominant intermittent beta frequency intermixed with 20-40 ??V posterior theta and intermittent right temporal polymorphic delta frequencies. No epileptiform abnormalities are noted in the form of spikes or sharp waves. No electrographic seizure activity is recorded. Stage II sleep is noted, correlated with the presence of bilaterally symmetric spindle activity and generalized delta frequencies. EEG diagnosis: This video/EEG monitoring is abnormal due to: Focal intermittent right temporal slowing.. Mild generalized background slowing. EEG interpretation: This video/EEG monitoring is abnormal due to the presence of intermittent right temporal slowing, consistent with structural lesion. Mild generalized background slowing is consistent with encephalopathy of nonspecific etiology. No epileptiform abnormalities or seizures were recorded. Video/EEG monitoring may be continued or discontinued at the discretion of the referring provider. Jennifer German M.D., Ph.D. [facility] Background with right temporal slowing EEG Video Monitoring Daily Result Date: 06/05/2025 Narrative: Images from the original result were not included. [facility] Video/EEG Monitoring REPORT EEG Service Date(s): 06/05/25 form 04:27 until 06:30 Date of Report: 06/05/25 History: Gianni Babin is 70 y.o. male with a history of intraparenchymal hemorrhage and encephalopathy who isundergoing video/EEG monitoring to evaluate for seizures. Centrally active medications: Keppra Procedure: This video/EEG monitoring was acquired with electrodes placed according to the [id number] electrode placement system,using collodion. The EEG was reviewed using multiple, reformattable montages. Closed captioned video monitoring of behavior, synchronous with EEG recording is included in the analysis, as is digital/spectral analysis of EEG waveforms. A single EKG channel was recordedfor cardiac rhythm monitoring. Technical description: Background over the left hemisphere is composed of 5-10 ??V frontal and centrally predominant intermittent beta frequency intermixed with 20-25 ??V posterior slow alpha and theta frequencies. There is an 8 Hz posterior dominant rhyhtm seen over the left hemisphere, but not on the right side. Background over the right hemisphere is composed of 5 ??V frontal and centrally predominant intermittent beta frequency intermixed with 20-40 ??V posterior theta and polymorphic delta frequencies. No epileptiform abnormalities are noted in the form of spikes or sharp waves. No electrographic seizure activity is recorded. Stage II sleep is noted, correlated with the presence of bilaterally symmetric spindle activity and generalized delta frequencies. EEG diagnosis: This video/EEG monitoring is abnormal due to: Hemispheric asymmetry with lower amplitudes and frequencies on the right side. Mild generalized background slowing. EEG interpretation: This video/EEG monitoring is abnormal due to the presence of right hemispheric slowing and lower amplitudes, consistent with structural lesion. Mild generalized background slowing is consistent with encephalopathy of nonspecific etiology. No epileptiform abnormalities or seizures were recorded. Ronda Rowell M.D., Ph.D. [facility] Baseline Routine EEG Result Date: 06/05/2025 Narrative: Images from the original result were not included. [facility] EEG REPORT EEG Service Date: 06/05/25 Date of Report: 06/05/25 History: Gianni Babin is a 70 y.o. male with alteredmental status and right intraparenchymal hemorrhage who is undergoing EEG to evaluate for seizures. Centrally active medications: Keppra. Procedure: This EEG was acquired with electrodes placed according to the [id number] electrode placement system. The EEG was acquired and reviewed using multiple, reformattable montages. A single EKG channel was recorded for cardiac rhythm monitoring. Sina hnical description: Background over the left hemisphere is composed of 5-10 ??V frontal and centrally predominant intermittent beta frequency intermixed with 20-25 ??V posterior slow alpha and theta frequencies. There is an 8 Hz posterior dominant rhyhtm seen over the left hemisphere, but not on the right side. Background over the right hemisphere is composed of 5 ??V frontal and centrally predominant intermittent beta frequency intermixed with 20-40 ??V posterior theta and polymorphic delta frequencies. No epileptiform abnormalities are noted in the form of spikes or sharp waves. No electrographic seizure activity is recorded. Stage II sleep is noted, correlated with the presence of bilaterally symmetric spindle activity and generalized delta frequencies. Hyperventilation was deferred. Photic stimulation failed to elicit posterior driving responses. EEG diagnosis: This EEG is abnormal due to: Hemispheric asymmetry with lower amplitudes and frequencies on the right side. Mild generalized background slowing. EEG interpretation: This EEG is abnormal due to the presence of right hemispheric slowing and lower amplitudes, consistent with structural lesion. Mild generalized background slowing is consistent with encephalopathy of nonspecific etiology. The absence of epileptiform abnormalities does not exclude the possibility of intermittent seizures. Jennifer German M.D., Ph.D. [facility] Background CT brain without contrast Result Date: 06/05/2025 Narrative: CT BRAIN WO CONT CLINICAL HISTORY: Follow-up for intracranial hemorrhage. COMPARISON: CTbrain 06/05/2025 and 06/04/2025. TECHNIQUE: CT brain without intravenous contrast. Automated exposure control was utilized. All CT scans at this facility use dose modulation, iterative reconstruction, and/or weight based dosing when appropriate to reduce radiation dose to as low as reasonably achievable. FINDINGS: Redemonstrated acute parenchymal hemorrhage centered within the anterior right thalamus with adjacent edema. Intraventricular extension within the right lateral ventricle, third ventricle, and dependent portions of the lateral ventricles. Ventricular system size and morphology are unchanged, basal cisterns are patent. No new or enlarging intracranial hemorrhage. Patchy areas of hypoattenuation within the supratentorial white matter nonspecific but most commonly associated with ch ronic microvascular ischemic change. Orbits are symmetric. No depressed or displaced calvarial fracture. Partial opacification of the bilateral mastoid air cells. Partially visualized cystic lesion within the right maxillary alveolar recess is unchanged. IMPRESSION: * Similar intraparenchymal hemorrhage centered within the anterior right thalamus with intraventricular extension. No change in sizeor configuration of the ventricular system. All CT scans at this facility use dose modulation, iterative reconstruction, and/or weight based dosing when appropriate to reduce radiation dose to as lowas reasonably achievable. Finalized by Eron Walton MD on 06/05/2025 8:[address] brain without contrast Result Date: 06/05/2025 Narrative: History: Stroke Technique: Contiguous axial images through the brain were obtained without the administration of intravenous contrast material. Automated exposure control was utilized. Comparison: 06/04/2025 Findings: The previous described acute intracranial hemorrhage involving the right thalamus and extending into the right lateral ventricle is again seen and has not changed significantly since the prior study. There is now increasing blood products in the dependent portion of thelateral ventricles bilaterally. No new areas of hemorrhage are identified. There is no evidence of major vessel infarct or mass lesion. Impression: Stable appearance of the acute hemorrhage in the right thalamus with intraventricular extension with more acute blood product now seen layering in the dependent portion of the lateral ventricles since the previous examination dated 06/04/2025. All CT scans at this facility use dose modulation, iterative reconstruction, and/or weight based dosing when appropriate to reduce radiation dose to as low as reasonably achievable. Fi nalized by Raghu Villegas MD on 06/05/2025 4:[address] abdomen and pelvis with contrast Result Date: 06/04/2025 Narrative: History: . fall Exam/Technique: Contiguous axial images are obtained of the abdomen and pelvis with 100 cc omnipaque 300 intravenous contrast. Coronal and sagittal reconstructions were performed and reviewed. Automatic dose exposure reduction technique utilized. Comparison: CT chest. Findings: LUNGS AND CARDIOMEDIASTINAL STRUCTURES: no abnormality. LIVER: is normal. SPLEEN: is normal. GALLBLADDER: normal. BILIARY TREE:Normal PANCREAS: normal. ADRENAL GLANDS are normal. RIGHT KIDNEY: Cortical scarring with significant caliectasis and hydronephrosis. The right ureter is dilated down to the urinary bladder. Cortical scarring. LEFT KIDNEY: Significant hydronephrosis and caliectasis. No discrete cortical scarring. The left ureter is not opacified and demonstrates thick wall with dilatation. 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 There is extensive disease also traction into the internal and external vessels. PORTAL VEIN: Patent IVC is normal. There is no paraaortic or paracaval adenopathy. FREE AIR: Absent SIGNIFICANT FREE FLUID:absent MESENTERY: Normal BODY WALL: Normal SMALL BOWEL AND TERMINAL ILEUM: normal. COLON: Colonic diverticulosiswith fecal loading without diverticulitis. APPENDIX: normal. HERNIAL ORIFICES:Fat-containing inguinal hernias.. PELVIC ORGANS: Prostate gland with dystrophic calcification. Significant degenerative labrum with thick wall and lobulated outline which may be due to chronic outlet obstruction, inflammation and neoplastic disease cannot be completely excluded. BONES AND SOFT TISSUES: Osteopenia degenerative changes. There is no loss of vertebral body height. The left hip arthroplasty partially visualized with no acute abnormality. Right hip degenerative changes noted. . 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 Significant hydronephrosis and caliectasis andhydroureter bilaterally with a thick walled urinary bladder likely related to obstruction or chronic inflammation and the enlarged prostate gland. Reflux may be noted bilaterally. All CT scans at this facility use dose modulation, iterative reconstruction, and/or weight based dosing when appropriate to reduce radiation dose to as low as reasonably achievable. Finalized by Bradford Marroquin MD on 06/04/2025 3:[address] chest with contrast Result Date: 06/04/2025 Narrative: CT CHEST W CONT 06/04/2025 3:18 PM INDICATION: Fall. Pain. COMPARISON: None TECHNIQUE: Contrast-enhanced CT images of the chest were obtained. All CT scans at this facility use dose modulation, iterative reconstruction, and/or weight based dosing when appropriate to reduce radiation doseto as low as reasonably achievable. FINDINGS: Evaluation compromised by arm positioning at time of scanning. Thyroid gland is unremarkable. No supraclavicular adenopathy. Ascending thoracic aorta measures 4.4 cm in diameter. Conventional branching of the aortic arch. Heart size is within normal limits. No pericardial effusion. Coronary artery calcifications are present. Main pulmonary trunk size is within normal limits. No enlarged mediastinal or hilar lymph nodes by size criteria. Trachea shows no acute abnormality. Secretions noted within the mid thoracic trachea. Mild nonspecific bilateral peribronchial wall thickening. No pleural effusion. No pneumothorax. Dependent atelectasis. No focal consolidation. Small right posterior diaphragmatic hernia containing fat. Chest wall soft tissue show no acute abnormality. No acute or aggressive osseous lesion. Degenerative changes of the bilateral shoulders. Remote left-sided rib fractures. Multilevel degenerative changes of the thoracic spinewith slightly exaggerated thoracic kyphosis. CT abdomen was performed concurrently but reported separately. IMPRESSION: No acute posttraumatic findings within the chest. Finalized by Eron Walton MD on 06/04/2025 3:[address] cervical reconstruction Result Date: 06/04/2025 Narrative: CLINICAL INFORMATION: Cervical spine pain. Neck pain PROCEDURE: Routine cervical spine protocol CT was obtained without intravenous contrast. Sagittal and coronal reformatted images were obtained from the axial data. Automated exposure control was utilized. All CT scans at this facility dose modulation, iterative reconstruction, and/or weight based dosing when appropriate to reduce radiation dose to as low as reasonably achievable. FINDINGS: Satisfactory alignment of the cervical spine. The vertebral body heights are preserved. No fracture. No malalignment. Mild multifocal degenerat nighat changes with endplate sclerosis and osteophyte formation. The atlantoaxial space is intact withdegenerative sclerosis. Posterior elements are intact with facet hypertrophy. No acute findings in the soft tissues. Please note, ligamentous injury is not well evaluated on a neutral position CT. Ifconcern for ligamentous injury consider flex-ex radiographs or MRI. IMPRESSION: * No acute osseous abnormalities in the cervical spine. Finalized by Stan Overton MD on 06/04/2025 3:[address] angiogram head Result Date: 06/04/2025 Narrative: CLINICAL INFORMATION: Altered mental status TECHNIQUE: CT angiogram of the head was performed following intravenous administration of nonionic intravenous contrast. 3-D maximum intensity projection images generated and reviewed under concurrent physician supervision. Automated exposure control was utilized. Arterial blood flow was measured to assist the stroke clinical team in the diagnosis of large vessel occlusion in patients undergoing screening for acute ischemic stroke using Rapid AI software when clinically indicated. All CT scans at this facility use dose modulation, iterative reconstruction, and/or weight based dosing when appropriate to reduce radiation dose to as low as reasonably achievable. COMPARISON: No relevant prior studies available. FINDINGS: Evaluation significantly limited due to patient motion. The internal carotid arteries are patent throughout their course in the carotid canal and cavernous segment with moderate atherosclerotic calcification. Evaluation of the anterior cerebral arteries is nondiagnostic due to patient motion. The proximal MCAs are patent, evaluation beyond this is nondiagnostic due to patient motion. The V4 segment of the vertebral arteries is patent, the basilar artery is patent. The P1 segment of the posterior cerebral arteries is patent however evaluation beyond this is nondiagnostic. IMPRESSION: * Partially nondiagnostic evaluation due to patient motion as described above. Moderate atherosclerotic calcification of the internal carotid arteries within the carotid canal and cavernous segment. Finalized by Amee Vargas MD on 06/04/2025 2:[address] angiogram carotid Result Date: 06/04/2025 Narrative: CLINICAL INFORMATION: Stroke. Neurologic deficit. COMPARISON: None PROCEDURE: CT angiogram of the neck with IV contrast. Sagittal and coronal reformatted images with 3-D Maximum intensity projection reconstructions constructed under concurrent physician supervision on a independent workstation for evaluation of carotid and vertebral arteries. Automated exposure control was utilized. The [place] Symptomatic carotid Endarterectomy Trial (NASCET) method for calculating the degreeof stenosis was utilized for stenosis measurements. 3-D reformatted images confirm the source data findings. stenosis is calculated as compared to the distal lumen of the ICA (NASCET). All CT scans at this facility dose modulation, iterative reconstruction, and/or weight based dosing when appropriate to reduce radiation dose to as low as reasonably achievable. FINDINGS: No acute findings at the partially visualized aortic arch. Three-vessel branching pattern. Subclavian arteries are patent. Thevertebral arteries originate from the subclavian arteries and are normal in course and caliber. Thecommon carotid arteries are patent. There is mild scattered atherosclerotic calcification. There isatherosclerotic calcification at the proximal bilateral internal carotid arteries with less than 50% stenosis. The internal carotid arteries are otherwise normal in course and caliber. Partially visualizing apices are unremarkable. No acute findings in the soft tissues. IMPRESSION: 1. No acute findings. No significant carotid or vertebral artery stenosis. 2. Mild atherosclerotic calcification at the bilateral carotid bifurcations and proximal internal carotid arteries with less than 50% stenosis. Finalized by Stan Overton MD on 06/04/2025 2:[address] brain without contrast Result Date: 06/04/2025 Narrative: CLINICAL INFORMATION: Altered mental status TECHNIQUE: CT BRAIN WO CONT CT images of thebrain were obtained. There is a 2.3 cm right thalamic hemorrhage with intraventricular extension ofblood products. Blood proximal within mid the lateral ventricles as well as the third ventricle. Nomidline shift or basilar cisternal effacement. Chronic ischemic changes appear moderate. IMPRESSION: 2.3 cm right thalamic hemorrhage with intraventricular extension. I personally called these findings to the emergency department at time of dictation. Dr. Vaughn aware of findings. All CT scans at this facility use dose modulation, iterative reconstruction, and/or weight based dosing when appropria te to reduce radiation dose to as low as reasonably achievable. Finalized by Cody Orourke MD on 06/04/2025 2:17 PM Guzman Lees MD Urology Resident PGY-1 9:14 AM 06/18/2025 Cosigned by Liborio Mann Jr., MD at 06/18/2025 6:02 PM EDT Associated attestation - Liborio Mann Jr., MD - 06/18/2025 6:02 PM EDT Attending Attestation: I saw the patient. I participated and was physically present during the critical/dill portions of the service. I was directly involved in the management and treatment plan of the patient. I reviewed the resident's note. Additional Notes/Findings: Interval Neurology, Nephrology, and endocrinology provider notes reviewed. Patient remains absolutely disoriented and more than difficult to understand when he speaks or attempts to speak. IMPRESSIONS: 1. 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 Extensive telephone conversation 06/18/2025 with patient's discussion options of nonintervention with consideration of clinical expectations from his intracranial bleed, observation, cystoscopy, left retrograde pyelogram with possible placement left ureteral stent requiring a general anesthetic, or left nephrostomy tube placement request. The procedure of cystoscopic stent insertion was described. Risks of bleeding, infection, inability to place stent, possible need for retrograde pyelogram, stent side effects and need for timely removal or replacement, ureteroscopy, or nephrostomy tube, injury to urinary tract structures, and anesthetic risks including , mi, CVA, DVT, and PE were reviewed. Reviewed empirically there would be some increased risk with general anesthetic given his intracranial bleed. Also reviewed risks of nephrostomy tube including bleeding, infection, pain,inability to place tube, and injury to kidney or surrounding structures and need for maintenance ofnephrostomy tube. Further advised nephrostomy tube would give more definitive relief of any obstruction present, and I am not particularly confident that a stent will improve his renal function, and a nephrostomy tubemay not either. Reviewed and nephrostomy tube could always be removed if it fails to improve the situation. She states she spoken with family,, and they desire placement of a left ureteral stent, despite risks as discussed above. We reviewed this is not an emergent procedure. Anticoagulants do not need to be held. We also need medical clearance from Neurology service and comment about safety of proceeding at this time with the needed general anesthesia for the procedure versus deferring to a later date. I did read carefully neurology provider note, and verify that we certainly could perform a left stent placement as an inpatient, and given this patient's issues, that would actually probably be more practical if the procedure is performed. My concern is about subjecting him to a general anesthetic with his altered mental status already, and I would like to speak with Neurology about this directly. We will follow with you. Thank you very much. I appreciate being asked to help with this patient's care. Liborio Mann Jr., M.D. [facility] [phone] * Alphonse Cuenca MD - 06/18/2025 8:50 AM EDT Neurovascular / Interventional neurology Intraparenchymal Hemorrhage Progress Note Date of admission 06/04/2025 5:25 PM PCP: CLARISA HANSEN APRN-ANDREA Reason of admission: IPH Deficit: AMS Last known well: Unclear, some time on 06/03/25 Patient seen at: ED Initial NIHSS: 9 Premorbid mRS: 0 Initial imaging: R Thalamic IPH with IVH ICH Score: 2 Initial BP reported: 134/83 Interval: Patient was seen and examined at bedside this morning. Vitals stable, no acute events reported overnight. Patient appears encephalopathic. Infectious workup showed urinalysis positive for leukocyte esterase and patient was started on ceftriaxone. Discussed with Urology, they will only do the procedure in the outpatient setting as it is not emergent and requires the use of general anesthesia. Restarting patient's Eliquis was discussed with the vascular surgery team who recommend that it is usually a common practice to give anticoagulant medication for 3 months in the setting of unprovokedDVTs, however in the patient's case the resumption of AC can be discussed in the outpatient settingafter discharge and repeating duplex. Subjective: Gianni Babin is a 70 y.o. male who initially presented to an outside hospital and thereafter was transferred to [facility] via air. Past medical history significant for hypertension, DM, HLD,Obesity, DM2, recent DVT on Eliquis. Per chart review, the patient was initially taken to an outside hospital ED by EMS for evaluation of altered mental status. The patient was not aware of where he was, what year it was or who the president was. Imaging studies were done at the outside hospital including CT brain which showed 2.3 cm right thalamic hemorrhage with intraventricular extension. He was on Eliquis due to recent DVT and started on Eliquis. In the ED Kcentra was given for reversal of Eliquis. He was also given Keppra 2g at the outside hospital and started on Cardene infusion. The patient was accepted by the trauma service and transferred to [facility]. Upon arrival to [facility] ED, vascular neurology consulted. Upon my evaluation the patient is currently on room air. He appears to be confused, answering questions but incorrectly. He is able to follow commands intermittently. The patient has stable blood pressure, currently 119/80. According to the family he had an episode of fall 3 days back. However, themain onset of confusion was this morning. Past medical history: DVT on Eliquis, HTN, HLD, Obesity, DM2 Home medications: Eliquis, Aspirin, Lipitor, Lisinopril, Metformin Social history: Daily alcohol drinker, chronic smoking Home medications: Medications Prior to Admission Medication Sig Dispense Refill Last Dose/Taking aspirin 81 mg Take 1 tablet (81 mg total) by mouth in the morning. Taking atorvastatin (LIPITOR) 20 mg tablet Take 1 tablet (20 mg total) by mouth every morning. TAKE 1 TABLET (20 MG) BY MOUTH IN THE MORNING Taking ELIQUIS 5 mg tablet Take 1 tablet (5 mg total) by mouth in the morning and 1 tablet (5 mg total) before bedtime. Taking fenofibrate (LOFIBRA) 160 mg tablet Take 1 tablet (160 mg total) by mouth in the morning. Taking lisinopriL (PRINIVIL,ZESTRIL) 40 mg tablet Take 1 tablet (40 mg total) by mouth in the morning. Taking magnesium aspart,citrate,oxide (TRIPLE MAGNESIUM COMPLEX) 400 mg magnesium capsule Take 400 mg by mouth in the morning. Taking metFORMIN (GLUCOPHAGE) 1000 mg tablet Take 1 tablet (1,000 mg total) by mouth in the morning and 1 tablet (1,000 mg total) in the evening. Take with meals. Taking ACCU-CHEK GUIDE ME GLUCOSE MTR misc USE DAILY OR DIRECTED FOR MONITORING OF DIABETES. ACCU-CHEK GUIDE TEST STRIPS strip USE DAILY ACCU-CHEK SOFTCLIX LANCETS lancets USE TO TEST DAILY Past medical history: Past Medical History: Diagnosis Date Diabetes mellitus type 2, controlled ([facility]) DVT (deep venous thrombosis) ([facility]) GERD (gastroesophageal reflux disease) Hyperlipidemia Hypertension ICH (intracerebral hemorrhage) ([facility]) 06/04/2025 Osteoarthritis Past surgical history: Past Surgical History: Procedure Laterality Date TONSILLECTOMY TOTAL HIP ARTHROPLASTY 06/2010 Family history: Hefamily history includes Heart attack in his father; Leukemia in his mother; Lymphoma in his mother; Pancreatic cancer in his father. Allergies: Hehas no known allergies. Social history: Social History Socioeconomic History Marital status: Spouse name: Not on file Number of children: Not on file Years of education: Not on file Highest education level: Not on file Occupational History Not on file Tobacco Use Smoking status: Every Day Current packs/day: 1.00 Average packs/day: 1 pack/day for 52.8 years (52.8 ttl pk-yrs) Types: Cigarettes Start date: 1972 Smokeless tobacco: Never Substance and Sexual Activity Alcohol use: Yes Drug use: Never Sexual activity: Not on file Other Topics Concern Not on file Social History Narrative Not on file Social Drivers of Health Financial Resource Strain: Not on file Food Insecurity: No Food Insecurity (06/11/2025) Hunger Screening Food Insecurity - Worry: Never True Food Insecurity - Inability: Never True Transportation Needs: No Transportation Needs (06/05/2025) PRAPARE - Transportation Lack of Transportation (Medical): No Lack of Transportation (Non-Medical): No Physical Activity: Not on file Stress: Not on file Social Connections: Not on file Interpersonal Safety: Patient Unable To Answer (06/05/2025) Humiliation, Afraid, Rape, and Kick questionnaire Fear of Current or Ex-Partner: Patient unable to answer Emotionally Abused: Patient unable to answer Physically Abused: Patient unable to answer Sexually Abused: Patient unable to answer Housing Instability: Low Risk (06/05/2025) Housing Instability Housing Instability: No Physical exam: Vital Signs: Blood pressure 136/62, pulse 66, temperature 36.4 ??C (97.5 ??F), temperature source Oral, resp. rate 13, height 182.9 cm (6'), weight 100.2 kg (221 lb), SpO2 95%. Respiratory Source: O2 Device: None (Room air) Admission Weight: Weight: 117.3 kg (258 lb 9.6 oz) NIHSS: 1a Level of consciousness: 1=not alert but arousable by minor stimulation to obey, answer or respond 1b. LOC questions: 2=Performs neither task correctly 1c. LOC commands: 2=Performs neither task correctly 2. Best Gaze: 0=normal 3. Visual: 1=Partial hemianopia 4. Facial Palsy: 0=Normal symmetric movement 5a. Motor left arm: 0=No drift, limb holds 90 (or 45) degrees for full 10 seconds 5b. Motor right arm: 0=No drift, limb holds 90 (or 45) degrees for full 10 seconds 6a. motor left le=No drift, limb holds 90 (or 45) degrees for full 10 seconds 6b Motor right le=No drift, limb holds 90 (or 45) degrees for full 10 seconds 7. Limb Ataxia: 0=Absent 8. Sensory: 0=Normal; no sensory loss 9. Best Language: 1=Mild to moderate aphasia; some obvious loss of fluency or facility of comprehension without significant limitation on ideas expressed or form of expression. 10. Dysarthria: 1=Mild to moderate, patient slurs at least some words and at worst, can be understood with some difficulty 11. Extinction and Inattention: 0=No abnormality Total: 8 Labs/Imaging: Objective Lab work/Imaging: Lab Results Component Value Date HGBA1C 8.3 (H) 06/07/2025 CALCIUM 9.5 06/18/2025 K 4.4 06/18/2025 CO2 23 06/18/2025 BUN 55 (H) 06/18/2025 CREATININE 2.04 (H) 06/18/2025 Lab Results Component Value Date WBC 5.5 06/18/2025 HGB 13.6 06/18/2025 MCV 93 06/18/2025 PLT 225 06/18/2025 Lab Results Component Value Date INR 1.5 (H) 06/04/2025 No results found for: LDL , CHOLESTEROLT Imaging: X-ray chest 1 view Result Date: 06/17/2025 Single view chest History:Sepsis Difficulty breathing, shortness of breath Comparison: 06/11/2025 Findings: Single portable view of the chest. Stable cardiac mediastinal silhouette. No new focal opacity, effusion or pneumothorax. Impression: No definitive acute process. Finalized by Peter Sarabia MD on 06/17/2025 3:12 PM Assessment: 70 years old male with past medical history of hypertension, hyperlipidemia, diabetes, obesity, recent DVT (on Eliquis) who had an episode of fall 3 days ago. Later on, the patient had an acute onsetof confusion in the morning and was taken to an outside hospital. CT head showed intraparenchymal hemorrhage and therefore the patient was transferred to [facility] for further workup. On examination, the patient was confused but no significant motor deficits at that time. They were admitted to the ICU for workup. MRI brain on 06/07: redemonstrated right thalamic hematoma with intraventricular extension Impression: R IPH with intra-ventricular extension, likely 2/2 HTN (ICH score 2) Others: Unprovoked DVT, plans for weekly duplex Possible ureteral stent placement, urology on board Plan: - Continue care on the intermediate floor with stroke service. - Appears encephalopathic, UA positive for LE, continue ceftriaxone course for UTI. - Discussed with urology, the interventions are not urgent. They will do in the outpatient setting once patient stable for general anesthesia. - Continue nightly Seroquel 25mg. - Resumed home aspirin 81mg OD. - Antithrombotic plans: Patient to follow-up with vascular surgery in the outpatient setting and based on further duplex studies get their advice regarding need for therapy and resumption. - Currently on D2.5 75 cc/hour. Nephrology on board, appreciate recommendations and management. - Weekly duplex of LE to monitor and DVT prophylaxis per vascular surgery recommended - Fluctuating blood glucose levels after feeds, endocrinology on board, appreciate recommendations and management. - Nephrology on board for blood pressure medication adjustments and CKD. Currently on coreg, amlodipine, lasix, lisinopril. - Considering patient is chronic alcoholic and slow in communication, completed thiamine 500mg TID course. - vEEG discontinued on 06/06. Levetiracetam levels therapeutic. - Given Keppra due to provoked seizure at the outside hospital. Completed a 7 day course. - Target SBP 130-150. PRN Hydralazine and labetalol - Will need outpatient evaluation for SOFIA. - Code status: Full - Dispo: SNF - DVT px: Heparin 5000U TID Staffed with: Dr. Rimma Cuenca MD PGY-3 Neurology Resident 06/18/25 8:50 AM Cosigned by Chris Shanks MD at 06/18/2025 10:06 PM EDT Associated attestation - Chris Shanks MD - 06/18/2025 10:06 PM EDT Patient seen & examined in conjunction with PGY2. I have reviewed and agree with the HPI, ROS, examination, assessment and plan as outlined in the note above. * Ed Ortiz MD - 06/17/2025 11:08 AM EDT Images from the original note were not included. Nephrology Daily Progress Note INTERVAL HISTORY/History of present illness: Patient is confused. No events overnight PROBLEM LIST: Acute kidney injury on Chronic kidney disease stage IIIA with baseline creatinine around 1.3-1.4 mg/dL: CT scan of abdomen pelvis with contrast on 06/04/2025 showed cortical scarring with significantcaliectasis and hydronephrosis right ureter is dilated down to the urinary bladder. Cortical scarring. Left kidney significant hydronephrosis and caliectasis no discrete cortical scarring. Renal ultrasound showed right hydronephrosis and mild left hydronephrosis. Urine protein to creatinine ratio is 1 g/g. Hepatitis panel and HIV are negative C3 is normal. C4 is on the high side which is 53. Rheumatoid factor is normal. Cnwy-xvakfu-thfgncbd DNA is negative. LUIZA is negative. Glomerular basement membrane antibodies are negative. SPEP is negative for M bands. Anca was negative. 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 VITAL SIGNS TREND: Vitals: 06/16/25 2346 06/17/25 0500 06/17/25 0523 06/17/25 0745 BP: 103/75 114/79 139/67 Pulse: 69 58 62 Resp: 17 15 14 Temp: 36.9 ??C (98.4 ??F) 36.4 ??C (97.6 ??F) 36.8 ??C (98.2 ??F) TempSrc: Oral Oral Axillary SpO2: 96% 94% 100% Weight: 100.4 kg (221 lb 5.5 oz) Height: INTAKE/OUTPUT: Intake/Output Summary (Last 24 hours) at 06/17/2025 1108 Last data filed at 06/17/2025 0800 Gross per 24 hour Intake 745.4 ml Output 1475 ml Net -729.6 ml I/O this shift: In: 50 [P.O.:50] Out: - WEIGHT: Wt Readings from Last 3 Encounters: 06/17/25 100.4 kg (221 lb 5.5 oz) 06/04/25 93 kg (205 lb) amLODIPine, 10 mg, oral, Daily aspirin, 81 mg, oral, Daily atorvastatin, 20 mg, oral, Nightly carvediloL, 12.5 mg, oral, BID heparin (porcine), 5,000 Units, subcutaneous, Q8H CATRINA hydrALAZINE, 100 mg, oral, Q8H CATRINA insulin glargine, 10 Units, subcutaneous, Daily insulin lispro, 1-10 Units, subcutaneous, With meals and nightly insulin lispro, 1-5 Units, subcutaneous, With meals and nightly melatonin, 5 mg, oral, Nightly QUEtiapine, 25 mg, oral, Nightly dextrose 2.5 % in water, 1,000 mL infusion, 75 mL/hr, Last Rate: 75 mL/hr (06/17/25 0139) dextrose 5 % in water, 100 mL/hr PHYSICAL EXAM: Blood pressure 139/67, pulse 62, temperature 36.8 ??C (98.2 ??F), temperature source Axillary, resp. rate 14, height 182.9 cm (6'), weight 100.4 kg (221 lb 5.5 oz), SpO2 100%. Temp: [36.4 ??C (97.6 ??F)-37.1 ??C (98.8 ??F)] 36.8 ??C (98.2 ??F) Pulse: [58-73] 62 Resp: [13-17] 14 BP: (103-141)/(65-97) 139/67 SpO2: [94 %-100 %] 100 % O2 Device: None (Room air) General appearance: alert in no apparent distress. HEENT: no JVD, no carotid bruits, no lymphadenopathy. Cardiovascular: normal S1-S2 Respiratory: clear to auscultation bilaterally Gastrointestinal: soft, no tenderness, no guarding, positive bowel sounds Musculoskeletal: no edema Skin : No Rash. Neuro: Awake but confused LABORATORY EVALUATION: Results from last 7 days Lab Units 06/17/25 0608 06/16/25 0548 06/15/25 1752 06/15/25 0659 06/14/25 0625 06/13/25 0558 SODIUM mmol/L 141 145 147* 148* 146 146 POTASSIUM mmol/L 4.3 4.8 4.5 4.4 5.1* 4.7 CHLORIDE mmol/L 110* 112* -- 116* 112* 109 CO2 mmol/L 23 -- 24 25 28 BUN mg/dL 51* 54* -- 49* 39* 36* CREATININE mg/dL 1.99* 1.93* -- 1.81* 1.67* 1.61* CALCIUM mg/dL 9.4 9.3 -- 9.1 9.4 9.5 MAGNESIUM mg/dL 2.6 2.6 -- 2.8* 2.5 2.4 PHOSPHORUS mg/dL 4.7 5.1* -- 4.5 4.1 3.5 Results from last 7 days Lab Units 06/17/25 0608 06/16/25 0548 06/15/25 0659 06/14/25 0625 06/13/25 0558 WBC x10E9/L 5.5 5.5 4.2 6.5 6.3 HEMOGLOBIN g/dL 14.1 13.2 13.1 13.9 14.4 HEMATOCRIT % 41.0 38.8* 38.5* 40.9 41.9 PLATELETS X10E9/L 237 213 201 217 217 Results from last 7 days Lab Units 06/17/25 0608 06/16/25 0548 06/15/25 0659 06/14/25 0625 06/13/25 0558 PROTEIN TOTAL g/dL 7.0 6.9 6.6 7.1 7.2 ALBUMIN g/dL 3.7 3.7 3.6 3.7 3.8 AST U/L 25 32 27 28 20 ALT U/L 29 24 17 15 16 No results found. IMPRESSION: Acute Kidney Injuiry on Chronic kidney disease stage IIIA baseline creatinine is around 1.3-1.4 mg/dL creatinine 1.99 mg/dL today Bilateral hydronephrosis status post Mayo catheter placement. Renal ultrasound on [id number] showed bilateral hydronephrosis urology service is following. Renal scan showed no evidence of high-grade obstruction. Split renal function was 32% on the left and 68% on the right. Ureteral stent placement byUrology likely tomorrow Hypertensive urgency: Blood pressure Hypernatremia due to free water deficit. Improved with hypotonic IV fluid Plan : Decrease IV fluid to 50 cc/hour Follow-up repeat renal chemistry tomorrow Discussed with the patient's family Ed Ortiz M.D. [facility] Thank you for your consultation and allowing us to participate in the care of Gianni Montelongo please do not hesitate to call us with any questions at: Office: [phone] Office Answering Service: [phone] Please feel free to contact me through [email or web address] Secure chat during the daytime hours, if no response after 5 minutes then call the answering service. This note was created with the assistance of a speech-recognition program. Although the intention is to generate a document that actually reflects the content of the visit, no guarantees can be provided that every mistake has been identified and corrected by editing. * Alphonse Cuenca MD - 06/17/2025 9:05 AM EDT Neurovascular / Interventional neurology Intraparenchymal Hemorrhage Progress Note Date of admission 06/04/2025 5:25 PM PCP: SIENNA BARRIENTOS Reason of admission: IPH Deficit: AMS Last known well: Unclear, some time on 06/03/25 Patient seen at: ED Initial NIHSS: 9 Premorbid mRS: 0 Initial imaging: R Thalamic IPH with IVH ICH Score: 2 Initial BP reported: 134/83 Interval: Patient was seen and examined at bedside this morning. Vitals stable, reportedly mildly agitated overnight requiring soft restraints. Urology on board and currently ongoing discussion with the familyregarding ureteral stent placement whether it needs to be done during this hospital admission on later on. Restarting patient's Eliquis was discussed with the vascular surgery team who recommend that it is usually a common practice to give anticoagulant medication for 3 months in the setting of unprovokedDVTs, however in the patient's case the resumption of AC can be discussed in the outpatient settingafter discharge and repeating duplex. Subjective: Gianni Babin is a 70 y.o. male who initially presented to an outside hospital and thereafter was transferred to [facility] via air. Past medical history significant for hypertension, DM, HLD,Obesity, DM2, recent DVT on Eliquis. Per chart review, the patient was initially taken to an outside hospital ED by EMS for evaluation of altered mental status. The patient was not aware of where he was, what year it was or who the president was. Imaging studies were done at the outside hospital including CT brain which showed 2.3 cm right thalamic hemorrhage with intraventricular extension. He was on Eliquis due to recent DVT and started on Eliquis. In the ED Kcentra was given for reversal of Eliquis. He was also given Keppra 2g at the outside hospital and started on Cardene infusion. The patient was accepted by the trauma service and transferred to [facility]. Upon arrival to [facility] ED, vascular neurology consulted. Upon my evaluation the patient is currently on room air. He appears to be confused, answering questions but incorrectly. He is able to follow commands intermittently. The patient has stable blood pressure, currently 119/80. According to the family he had an episode of fall 3 days back. However, themain onset of confusion was this morning. Past medical history: DVT on Eliquis, HTN, HLD, Obesity, DM2 Home medications: Eliquis, Aspirin, Lipitor, Lisinopril, Metformin Social history: Daily alcohol drinker, chronic smoking Home medications: Medications Prior to Admission Medication Sig Dispense Refill Last Dose/Taking aspirin 81 mg Take 1 tablet (81 mg total) by mouth in the morning. Taking atorvastatin (LIPITOR) 20 mg tablet Take 1 tablet (20 mg total) by mouth every morning. TAKE 1 TABLET (20 MG) BY MOUTH IN THE MORNING Taking ELIQUIS 5 mg tablet Take 1 tablet (5 mg total) by mouth in the morning and 1 tablet (5 mg total) before bedtime. Taking fenofibrate (LOFIBRA) 160 mg tablet Take 1 tablet (160 mg total) by mouth in the morning. Taking lisinopriL (PRINIVIL,ZESTRIL) 40 mg tablet Take 1 tablet (40 mg total) by mouth in the morning. Taking magnesium aspart,citrate,oxide (TRIPLE MAGNESIUM COMPLEX) 400 mg magnesium capsule Take 400 mg by mouth in the morning. Taking metFORMIN (GLUCOPHAGE) 1000 mg tablet Take 1 tablet (1,000 mg total) by mouth in the morning and 1 tablet (1,000 mg total) in the evening. Take with meals. Taking ACCU-CHEK GUIDE ME GLUCOSE MTR misc USE DAILY OR DIRECTED FOR MONITORING OF DIABETES. ACCU-CHEK GUIDE TEST STRIPS strip USE DAILY ACCU-CHEK SOFTCLIX LANCETS lancets USE TO TEST DAILY Past medical history: Past Medical History: Diagnosis Date Diabetes mellitus type 2, controlled ([facility]) DVT (deep venous thrombosis) ([facility]) GERD (gastroesophageal reflux disease) Hyperlipidemia Hypertension ICH (intracerebral hemorrhage) ([facility]) 06/04/2025 Osteoarthritis Past surgical history: Past Surgical History: Procedure Laterality Date TONSILLECTOMY TOTAL HIP ARTHROPLASTY 06/2010 Family history: Hefamily history includes Heart attack in his father; Leukemia in his mother; Lymphoma in his mother; Pancreatic cancer in his father. Allergies: Hehas no known allergies. Social history: Social History Socioeconomic History Marital status: Spouse name: Not on file Number of children: Not on file Years of education: Not on file Highest education level: Not on file Occupational History Not on file Tobacco Use Smoking status: Every Day Current packs/day: 1.00 Average packs/day: 1 pack/day for 52.8 years (52.8 ttl pk-yrs) Types: Cigarettes Start date: 1972 Smokeless tobacco: Never Substance and Sexual Activity Alcohol use: Yes Drug use: Never Sexual activity: Not on file Other Topics Concern Not on file Social History Narrative Not on file Social Drivers of Health Financial Resource Strain: Not on file Food Insecurity: No Food Insecurity (06/11/2025) Hunger Screening Food Insecurity - Worry: Never True Food Insecurity - Inability: Never True Transportation Needs: No Transportation Needs (06/05/2025) PRAPARE - Transportation Lack of Transportation (Medical): No Lack of Transportation (Non-Medical): No Physical Activity: Not on file Stress: Not on file Social Connections: Not on file Interpersonal Safety: Patient Unable To Answer (06/05/2025) Humiliation, Afraid, Rape, and Kick questionnaire Fear of Current or Ex-Partner: Patient unable to answer Emotionally Abused: Patient unable to answer Physically Abused: Patient unable to answer Sexually Abused: Patient unable to answer Housing Instability: Low Risk (06/05/2025) Housing Instability Housing Instability: No Physical exam: Vital Signs: Blood pressure 139/67, pulse 62, temperature 36.8 ??C (98.2 ??F), temperature source Axillary, resp. rate 14, height 182.9 cm (6'), weight 100.4 kg (221 lb 5.5 oz), SpO2 100%. Respiratory Source: O2 Device: None (Room air) Admission Weight: Weight: 117.3 kg (258 lb 9.6 oz) NIHSS: 1a Level of consciousness: 1=not alert but arousable by minor stimulation to obey, answer or respond 1b. LOC questions: 2=Performs neither task correctly 1c. LOC commands: 2=Performs neither task correctly 2. Best Gaze: 0=normal 3. Visual: 1=Partial hemianopia 4. Facial Palsy: 0=Normal symmetric movement 5a. Motor left arm: 0=No drift, limb holds 90 (or 45) degrees for full 10 seconds 5b. Motor right arm: 0=No drift, limb holds 90 (or 45) degrees for full 10 seconds 6a. motor left le=No drift, limb holds 90 (or 45) degrees for full 10 seconds 6b Motor right le=No drift, limb holds 90 (or 45) degrees for full 10 seconds 7. Limb Ataxia: 0=Absent 8. Sensory: 0=Normal; no sensory loss 9. Best Language: 1=Mild to moderate aphasia; some obvious loss of fluency or facility of comprehension without significant limitation on ideas expressed or form of expression. 10. Dysarthria: 1=Mild to moderate, patient slurs at least some words and at worst, can be understood with some difficulty 11. Extinction and Inattention: 0=No abnormality Total: 8 Labs/Imaging: Objective Lab work/Imaging: Lab Results Component Value Date HGBA1C 8.3 (H) 06/07/2025 CALCIUM 9.4 06/17/2025 K 4.3 06/17/2025 CO2 26 06/17/2025 BUN 51 (H) 06/17/2025 CREATININE 1.99 (H) 06/17/2025 Lab Results Component Value Date WBC 5.5 06/17/2025 HGB 14.1 06/17/2025 MCV 93 06/17/2025 PLT 237 06/17/2025 Lab Results Component Value Date INR 1.5 (H) 06/04/2025 No results found for: LDL , CHOLESTEROLT Imaging: No results found. Assessment: 70 years old male with past medical history of hypertension, hyperlipidemia, diabetes, obesity, recent DVT (on Eliquis) who had an episode of fall 3 days ago. Later on, the patient had an acute onsetof confusion in the morning and was taken to an outside hospital. CT head showed intraparenchymal hemorrhage and therefore the patient was transferred to [facility] for further workup. On examination, the patient was confused but no significant motor deficits at that time. They were admitted to the ICU for workup. MRI brain on 06/07: redemonstrated right thalamic hematoma with intraventricular extension Impression: R IPH with intra-ventricular extension, likely 2/2 HTN (ICH score 2) Others: Unprovoked DVT, plans for weekly duplex Possible ureteral stent placement, urology on board Plan: - Continue care on the intermediate floor with stroke service. - Appears encephalopathic at this time, infectious workup till now negative. Will repeat infectiousworkup. - Considering patient had a recent bleed, will convey to team urology to proceed with the planned intervention if under local anesthesia. Would recommend avoiding general anesthesia at this time, unless the procedure is emergent. - Continue nightly Seroquel 25mg. - Resumed home aspirin 81mg OD. - Antithrombotic plans: Patient to follow-up with vascular surgery in the outpatient setting and based on further duplex studies get their advice regarding need for therapy and resumption. - Currently on D2.5 75 cc/hour. Nephrology on board, appreciate recommendations and management. - Weekly duplex of LE to monitor and DVT prophylaxis per vascular surgery recommended - Fluctuating blood glucose levels after feeds, endocrinology on board, appreciate recommendations and management. - Nephrology on board for blood pressure medication adjustments and CKD. Currently on coreg, amlodipine, lasix, lisinopril. - UA positive for LE, completed course of ceftriaxone. - Considering patient is chronic alcoholic and slow in communication, continue thiamine 500mg TID. - vEEG discontinued on 06/06. Levetiracetam levels therapeutic. - Given Keppra due to provoked seizure at the outside hospital. Completed a 7 day course. - Target SBP 130-150. PRN Hydralazine and labetalol - Will need outpatient evaluation for SOFIA. - Code status: Full - Dispo: SNF - DVT px: Heparin 5000U TID Staffed with: Dr. Josué Cuenca MD PGY-3 Neurology Resident 06/17/25 9:06 AM Cosigned by Yani Moses MD at 06/17/2025 1:49 PM EDT Associated attestation - Yani Moses MD - 06/17/2025 1:49 PM EDT Patient seen and examined with resident. I agree with the main component with the resident note including the HPI, ROS, Physical exam and assessment and plan. With the following changes: Continue seroquel at night. Continue ASA. Discharge planning. F/u urology recs. Do not recommend general anesthesia at this time. * Char Khoury MD - 06/17/2025 7:38 AM EDT UROLOGY PROGRESS NOTE WIYOT: Enlarged bladder bilateral hydroureteronephrosis with intracranial hemorrhage. Remains agitated, significant dysarthria. REVIEW OF SYSTEMS: Unable to assess. Patient unable to speak. PHYSICAL EXAMINATION: Not alert or oriented, agitation, dysarthria. Difficult to arouse from sleep.Clear tank urine in Mayo catheter. Latest labs as follows, demonstrating slightly worsening creatinine. Recent Results (from the past 48 hours) Bedside Glucose *Place/Obtain serum glucose if >500 per glucometer. Collection Time: 06/15/25 7:59 AM Result Value Ref Range Bedside Glucose (POC) 146 (H) 65 - 99 mg/dL Bedside Glucose *Place/Obtain serum glucose if >500 per glucometer. Collection Time: 06/15/25 12:48 PM Result Value Ref Range Bedside Glucose (POC) 231 (H) 65 - 99 mg/dL Bedside Glucose *Place/Obtain serum glucose if >500 per glucometer. Collection Time: 06/15/25 4:04 PM Result Value Ref Range Bedside Glucose (POC) 227 (H) 65 - 99 mg/dL Potassium Collection Time: 06/15/25 5:52 PM Result Value Ref Range POTASSIUM 4.5 3.5 - 5.0 mmol/L Sodium Collection Time: 06/15/25 5:52 PM Result Value Ref Range SODIUM 147 (H) 134 - 146 mmol/L Bedside Glucose *Place/Obtain serum glucose if >500 per glucometer. Collection Time: 06/15/25 8:58 PM Result Value Ref Range Bedside Glucose (POC) 193 (H) 65 - 99 mg/dL Comprehensive metabolic panel Collection Time: 06/16/25 5:48 AM Result Value Ref Range SODIUM 145 134 - 146 mmol/L POTASSIUM 4.8 3.5 - 5.0 mmol/L CHLORIDE 112 (H) 98 - 109 mmol/L CARBON DIOXIDE 23 22 - 32 mmol/L ANION GAP 10 5 - 15 mmol/L BLOOD UREA NITROGEN 54 (H) 5 - 27 mg/dL CREATININE 1.93 (H) 0.60 - 1.30 mg/dL GLUCOSE 171 (H) 65 - 99 mg/dL CALCIUM 9.3 8.5 - 10.5 mg/dL TOTAL PROTEIN 6.9 6.0 - 8.0 g/dL ALBUMIN 3.7 3.2 - 5.3 g/dL ALKALINE PHOSPHATASE 86 39 - 130 U/L AST 32 <=41 U/L ALT 24 <=40 U/L BILIRUBIN,TOTAL 0.5 0.3 - 1.2 mg/dL EGFR Non-Race Dependent 37 (L) >=60 ml/min/1.73sq.m CBC auto differential Collection Time: 06/16/25 5:48 AM Result Value Ref Range WBC 5.5 4 - 11 x10E9/L RBC Count 4.17 4.1 - 5.7 X10E12/L Hemoglobin 13.2 13 - 17 g/dL Hematocrit 38.8 (L) 39 - 50 % MCV 93 80 - 100 fL MCH 31.5 27 - 34 pg MCHC 33.9 32 - 36 g/dL RDW 13.4 11.5 - 15 % Platelet Count 213 150 - 450 X10E9/L MPV 8.6 7 - 12 fL Neutrophils % 56.3 % Lymphocytes % 27.7 % Monocytes % 10.8 % Eosinophils % 4.1 % Basophils % 1.1 % Neutrophils Absolute (A) 3.1 1.5 - 6.6 10*3/uL Lymphocytes Absolute 1.5 1.0 - 3.5 10*3/uL Monocytes Absolute 0.6 0.0 - 0.9 10*3/uL Eosinophils Absolute 0.2 0.0 - 0.4 10*3/uL Basophils Absolute 0.1 0.0 - 0.2 10*3/uL Differential Type AUTOMATED DIFFERENTIAL Magnesium Collection Time: 06/16/25 5:48 AM Result Value Ref Range MAGNESIUM 2.6 1.8 - 2.6 mg/dL Phosphorus Collection Time: 06/16/25 5:48 AM Result Value Ref Range PHOSPHORUS 5.1 (H) 2.4 - 4.9 mg/dL Ionized calcium Collection Time: 06/16/25 5:48 AM Result Value Ref Range IONIZED CALCIUM - ICAN 4.6 4.5 - 5.3 mg/dL Bedside Glucose *Place/Obtain serum glucose if >500 per glucometer. Collection Time: 06/16/25 7:55 AM Result Value Ref Range Bedside Glucose (POC) 162 (H) 65 - 99 mg/dL Bedside Glucose *Place/Obtain serum glucose if >500 per glucometer. Collection Time: 06/16/25 12:36 PM Result Value Ref Range Bedside Glucose (POC) 154 (H) 65 - 99 mg/dL Bedside Glucose *Place/Obtain serum glucose if >500 per glucometer. Collection Time: 06/16/25 3:58 PM Result Value Ref Range Bedside Glucose (POC) 145 (H) 65 - 99 mg/dL Bedside Glucose *Place/Obtain serum glucose if >500 per glucometer. Collection Time: 06/16/25 9:06 PM Result Value Ref Range Bedside Glucose (POC) 230 (H) 65 - 99 mg/dL Comprehensive metabolic panel Collection Time: 06/17/25 6:08 AM Result Value Ref Range SODIUM 141 134 - 146 mmol/L POTASSIUM 4.3 3.5 - 5.0 mmol/L CHLORIDE 110 (H) 98 - 109 mmol/L CARBON DIOXIDE 26 22 - 32 mmol/L ANION GAP 5 5 - 15 mmol/L BLOOD UREA NITROGEN 51 (H) 5 - 27 mg/dL CREATININE 1.99 (H) 0.60 - 1.30 mg/dL GLUCOSE 155 (H) 65 - 99 mg/dL CALCIUM 9.4 8.5 - 10.5 mg/dL TOTAL PROTEIN 7.0 6.0 - 8.0 g/dL ALBUMIN 3.7 3.2 - 5.3 g/dL ALKALINE PHOSPHATASE 87 39 - 130 U/L AST 25 <=41 U/L ALT 29 <=40 U/L BILIRUBIN,TOTAL 0.6 0.3 - 1.2 mg/dL EGFR Non-Race Dependent 36 (L) >=60 ml/min/1.73sq.m CBC auto differential Collection Time: 06/17/25 6:08 AM Result Value Ref Range WBC 5.5 4 - 11 x10E9/L RBC Count 4.40 4.1 - 5.7 X10E12/L Hemoglobin 14.1 13 - 17 g/dL Hematocrit 41.0 39 - 50 % MCV 93 80 - 100 fL MCH 32.1 27 - 34 pg MCHC 34.4 32 - 36 g/dL RDW 13.1 11.5 - 15 % Platelet Count 237 150 - 450 X10E9/L MPV 8.6 7 - 12 fL Neutrophils % 56.4 % Lymphocytes % 27.1 % Monocytes % 10.8 % Eosinophils % 4.9 % Basophils % 0.8 % Neutrophils Absolute (A) 3.1 1.5 - 6.6 10*3/uL Lymphocytes Absolute 1.5 1.0 - 3.5 10*3/uL Monocytes Absolute 0.6 0.0 - 0.9 10*3/uL Eosinophils Absolute 0.3 0.0 - 0.4 10*3/uL Basophils Absolute 0.0 0.0 - 0.2 10*3/uL Differential Type AUTOMATED DIFFERENTIAL Magnesium Collection Time: 06/17/25 6:08 AM Result Value Ref Range MAGNESIUM 2.6 1.8 - 2.6 mg/dL Phosphorus Collection Time: 06/17/25 6:08 AM Result Value Ref Range PHOSPHORUS 4.7 2.4 - 4.9 mg/dL Ionized calcium Collection Time: 06/17/25 6:08 AM Result Value Ref Range IONIZED CALCIUM - ICAN 5.0 4.5 - 5.3 mg/dL Reviewed imaging: Patient with improved left greater than right bilateral hydroureteronephrosis with right ureter seen completely to the bladder and left ureter to my view at least to the pelvis, actually with creatinine rising from 1.31 at admission to 1.93 presently with only 32% differential function of the left kidney and substantial concern for some degree of obstruction on the drainage pattern there. IMPRESSIONS: 1. [facility] resident history alcohol abuse, chronic Eliquis from left lower extremity DVT,diabetes admitted [facility] 06/04/2025 with intra thalamic hemorrhage, AMS, from a fall with same date CT bilateral left greater than right hydroureteronephrosis on the right clearly to the bladder and on the left to at least the pelvis with thick-walled bladder and elevated creatinine 1.31 subsequently rising to 1.93 despite Mayo catheter, 32% differential function left kidney with T1 half washout times 85.1 minutes left and 64.8 minutes right Mag 3 nuclear scan 06/14/2025; [facility] Latest labs: W 5.5 Cr 1.99 Recommendations: 1. Different treatment options were discussed with the his yesterday, including nonintervention with consideration of clinical expectations from his intracranial bleed, observation, cystoscopy, left retrograde pyelogram with possible placement left ureteral stent requiring a general anesthetic, or left nephrostomy tube placement request. The procedure of cystoscopic stent insertion was described. Risks of bleeding, infection, inability to place stent, possible need for retrograde pyelogram, stent side effects and need for timely removal or replacement, ureteroscopy, or nephrostomy tube, injury to urinary tract structures, and anesthetic risks including , mi, CVA, DVT, and PE were r eviewed. Reviewed empirically there would be some increased risk with general anesthetic given his intracranial bleed. Also reviewed risks of nephrostomy tube including bleeding, infection, pain, inability to place tube, and injury to kidney or surrounding structures and need for maintenance of nephrostomy tube. Further advised nephrostomy tube would give more definitive relief of any obstruction present, as astent may not improve his renal function, and a nephrostomy tube may not either. Reviewed and nephrostomy tube could always be removed if it fails to improve the situation. She understandably wished to discuss with her [id number] who is in the medical field. Emphasizedthis is not an emergent situation. We will follow up with family today regarding their decisions. Further recommendations to follow accordingly. Please see attending attestation below. Char Khoury MD PGY2 Urology Resident 06/17/25 Cosigned by Liborio Mann Jr., MD at 06/17/2025 10:50 AM EDT Associated attestation - Liborio Mann Jr., MD - 06/17/2025 10:50 AM EDT Attending Attestation: I saw the patient. I participated and was physically present during the critical/dill portions of the service. I was directly involved in the management and treatment plan of the patient. I reviewed the resident's note. Additional Notes/Findings: Interval Nephrology and neurology provider notes reviewed. By the time I arrived in the room this morning, the patient was actually awake and being fed by staff. He was in fact able to speak, but his speech is very difficult to understand, and he is not at all oriented. Labs as above. IMPRESSIONS: 1. 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 Extensive telephone conversation yesterday with patient's discussion options of nonintervention with consideration of clinical expectations from his intracranial bleed, observation, cystoscopy, left retrograde pyelogram with possible placement left ureteral stent requiring a general anesthetic, or left nephrostomy tube placement request. The procedure of cystoscopic stent insertion was described. Risks of bleeding, infection, inability to place stent, possible need for retrograde pyelogram, stent side effects and need for timely removal or replacement, ureteroscopy, or nephrostomy tube, injury to urinary tract structures, and anesthetic risks including , mi, CVA, DVT, and PE were reviewed. Reviewed empirically there would be some increased risk with general anesthetic given his intracranial bleed. Also reviewed risks of nephrostomy tube including bleeding, infection, pain, inability to place tube, and injury to kidney or surrounding structures and need for maintenance of nephrostomy tube. Further advised nephrostomy tube would give more definitive relief of any obstruction present, and I am not particularly confident that a stent will improve his renal function, and a nephrostomy tubemay not either. Reviewed and nephrostomy tube could always be removed if it fails to improve the situation. She states she spoken with family,, and they desire placement of a left ureteral stent, despite risks as discussed above. We reviewed this is not an emergent procedure. I will reach out to our scheduling staff tomorrow to work on getting this scheduled this admission. Anticoagulants do not need to be held. We also need medical clearance from Neurology service and comment about safety of proceeding at this time with the needed general anesthesia for the procedure versus deferring to a later date. We will follow with you. Thank you very much. I appreciate being asked to help with this patient's care. Liborio Mann Jr., M.D. [facility] [phone] * Ed Ortiz MD - 06/16/2025 12:35 PM EDT Images from the original note were not included. Nephrology Daily Progress Note INTERVAL HISTORY/History of present illness: Patient is lying in bed and comfortable. He is sleepy PROBLEM LIST: Acute kidney injury on Chronic kidney disease stage IIIA with baseline creatinine around 1.3-1.4 mg/dL: CT scan of abdomen pelvis with contrast on 06/04/2025 showed cortical scarring with significantcaliectasis and hydronephrosis right ureter is dilated down to the urinary bladder. Cortical scarring. Left kidney significant hydronephrosis and caliectasis no discrete cortical scarring. Renal ultrasound showed right hydronephrosis and mild left hydronephrosis. Urine protein to creatinine ratio is 1 g/g. Hepatitis panel and HIV are negative C3 is normal. C4 is on the high side which is 53. Rheumatoid factor is normal. Ayiu-[id number] DNA is negative. LUIZA is negative. Glomerular basement membrane antibodies are negative. SPEP is negative for M bands. Anca was negative. 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 VITAL SIGNS TREND: Vitals: 06/16/25 0025 06/16/25 0400 06/16/25 0500 06/16/25 0800 BP: (!) 139/119 117/77 99/66 Pulse: 69 73 59 70 Resp: 15 15 21 Temp: 37.1 ??C (98.8 ??F) 36.8 ??C (98.3 ??F) TempSrc: Oral Axillary SpO2: 90% 90% Weight: 101.7 kg (224 lb 3.3 oz) Height: INTAKE/OUTPUT: Intake/Output Summary (Last 24 hours) at 06/16/2025 1235 Last data filed at 06/16/2025 0700 Gross per 24 hour Intake 1715.3 ml Output 3050 ml Net -1334.7 ml I/O this shift: In: - Out: 250 [Urine:250] WEIGHT: Wt Readings from Last 3 Encounters: 06/16/25 101.7 kg (224 lb 3.3 oz) 06/04/25 93 kg (205 lb) acetaminophen, 1,000 mg, intravenous, Once amLODIPine, 10 mg, oral, Daily aspirin, 81 mg, oral, Daily atorvastatin, 20 mg, oral, Nightly carvediloL, 12.5 mg, oral, BID heparin (porcine), 5,000 Units, subcutaneous, Q8H CATRINA hydrALAZINE, 100 mg, oral, Q8H CATRINA insulin glargine, 10 Units, subcutaneous, Daily insulin lispro, 1-10 Units, subcutaneous, With meals and nightly insulin lispro, 1-5 Units, subcutaneous, With meals and nightly melatonin, 5 mg, oral, Nightly QUEtiapine, 25 mg, oral, Nightly dextrose 2.5 % in water, 1,000 mL infusion, 100 mL/hr, Last Rate: 100 mL/hr (06/16/25 0625) dextrose 5 % in water, 100 mL/hr PHYSICAL EXAM: Blood pressure 99/66, pulse 70, temperature 36.8 ??C (98.3 ??F), temperature source Axillary, resp.rate 21, height 182.9 cm (6'), weight 101.7 kg (224 lb 3.3 oz), SpO2 90%. Temp: [36.4 ??C (97.5 ??F)-37.1 ??C (98.8 ??F)] 36.8 ??C (98.3 ??F) Pulse: [59-74] 70 Resp: [15-21] 21 BP: (99-139)/(65-119) 99/66 SpO2: [90 %-99 %] 90 % O2 Device: Nasal cannula O2 Flow Rate (L/min): [2 L/min] 2 L/min General appearance sleepy HEENT: no JVD, no carotid bruits, no lymphadenopathy. Cardiovascular: normal S1-S2 Respiratory: clear to auscultation bilaterally Gastrointestinal: soft, no tenderness, no guarding, positive bowel sounds Musculoskeletal: no edema Skin : No Rash. Neuro: Sleepy LABORATORY EVALUATION: Results from last 7 days Lab Units 06/16/2548 06/15/25175106/15/2559 06/14/2562406/13/2558 06/12/25 0424 SODIUM mmol/L 145 147* 148* 146 146 144 POTASSIUM mmol/L 4.8 4.5 4.4 5.1* 4.7 4.6 CHLORIDE mmol/L 112* -- 116* 112* 109 103 CO2 mmol/L -- 24 28 31 BUN mg/dL 54* -- 49* 39* 36* 32* CREATININE mg/dL 1.93* -- 1.81* 1.67* 1.61* 1.62* CALCIUM mg/dL 9.3 -- 9.1 9.4 9.5 9.9 MAGNESIUM mg/dL 2.6 -- 2.8* 2.5 2.4 2.6 PHOSPHORUS mg/dL 5.1* -- 4.5 4.1 3.5 4.6 Results from last 7 days Lab Units 06/16/25 0548 06/15/25 0659 06/14/25 0625 06/13/25 0558 06/12/25 0424 WBC x10E9/L 5.5 4.2 6.5 6.3 5.0 HEMOGLOBIN g/dL 13.2 13.1 13.9 14.4 13.9 HEMATOCRIT % 38.8* 38.5* 40.9 41.9 40.7 PLATELETS X10E9/L 213 201 217 217 211 Results from last 7 days Lab Units 06/16/25 0548 06/15/25 0659 06/14/25 0625 06/13/25 0558 06/12/25 0424 PROTEIN TOTAL g/dL 6.9 6.6 7.1 7.2 6.7 ALBUMIN g/dL 3.7 3.6 3.7 3.8 3.6 AST U/L 32 27 28 20 18 ALT U/L 24 17 15 16 14 Vas venous duplex lwr bilateral Result Date: 06/15/2025 Right: Limited visualization of veins in the thigh and calf due to body habitus and patient positioning. Lower extremity deep veins are compressible with spontaneous phasic spectral Doppler waveforms; superficial veins are compressible without intraluminal content. Left: Limited visualization of veins in the thigh and calf due to body habitus and patient positioning. Lower extremity deep veins are compressible with spontaneous phasic spectral Doppler waveforms; superficial veins are compressible without intraluminal content. Conclusions: BILATERAL: NO EVIDENCE of deep or superficial vein thrombosis of the lower extremities with limited visualization of lower extremity vein segments as described above. Recommendations: Any questions prior to finalization, please call the reading physician during normal business hours at the phone number beside their name. NM renogram with lasix Result Date: 06/15/2025 NM RENOGRAM WITH LASIX CLINICAL INDICATION: evaluate for obstructive uropathy . PREPARATION: Oral hydration. TECHNIQUE: Following intravenous injection of 4.4 mCi of Tc-99m MAG-3, dynamic renal bloodflow and excretory phase imaging with quantitative analysis were performed. At 7 minutes post-tracer, intravenous furosemide, 40 mg, was administered and sequential imaging monitoring diuretic response and quantitative analysis were performed COMPARISON: Ultrasound dated 06/07/2025. Patient demonstrated mild right hydronephrosis and left hydronephrosis. There was prominence of both extrarenal pelvis. FINDINGS: Timing of renal blood flow, cortical uptake, and excretion are prompt and symmetric. P arenchymal uptake is asymmetrical. Some delay and decrease in the right No gross cortical defect. The effective renal plasma flow in the right kidney 139.6mL/m and the left kidney is 65.1 mL/m. Time to maximum radiotracer uptake on the right is 12 minutes and the left is 8 minutes.(Normal <= 5 min.) Relative uptake right kidney 68% and left kidney 32%. 20min after T peak/max:Mild bilateral barry yed. (Normal<= 35%). After administration of intravenous furosemide, there was prompt clearance of radiotracer from the right and left renal pelves with T-1/2 on the right of 64.8 minutes and the left 85.1 minutes. (T1/2 Normal<= 10-15 min). IMPRESSION: 1. No scintigraphic evidence of high-grade obstruction. 2. Split renal function 32% on the left and 68% on the right. 3. There is persistent retention of activity in the dilated collecting systems no obstruction on the right and no high-grade obstruction but low-grade obstruction or stasis on the left may be present. Workstation:[id number] by Bradford Marroquin MD on 06/15/2025 4:29 PM IMPRESSION: Acute Kidney Injuiry on Chronic kidney disease stage IIIA baseline creatinine is around 1.3-1.4 mg/dL creatinine 1.9 mg/dL today Bilateral hydronephrosis status post Mayo catheter placement. Renal ultrasound on [id number] showed bilateral hydronephrosis urology service is following. Renal scan showed no evidence of high-grade obstruction. Split renal function was 32% on the left and 68% on the right. Plan for ureteral stent versus nephrostomy tube Hypertensive urgency: Blood pressure Hypernatremia due to free water deficit. Currently on hypotonic IV fluid per scale Plan : Continue with hypotonic IV fluid at fix rate at 75 cc/hour Follow-up repeat renal chemistry tomorrow Repeat renal chemistry tomorrow Discussed with the patient's family Ed Ortiz M.D. [facility] Thank you for your consultation and allowing us to participate in the care of Gianni Montelongo please do not hesitate to call us with any questions at: Office: [phone] Office Answering Service: [phone] Please feel free to contact me through [email or web address] Secure chat during the daytime hours, if no response after 5 minutes then call the answering service. This note was created with the assistance of a speech-recognition program. Although the intention is to generate a document that actually reflects the content of the visit, no guarantees can be provided that every mistake has been identified and corrected by editing. * Liborio Mann Jr., MD - 06/16/2025 9:39 AM EDT UROLOGY PROGRESS NOTE WIYOT: Enlarged bladder bilateral hydroureteronephrosis with intracranial hemorrhage REVIEW OF SYSTEMS: Unable to assess. Patient asleep PHYSICAL EXAMINATION: Not alert or oriented. Can not arouse from sleep.As above. Clear tank urine Mayo catheter. I REVIEWED THE FOLLOWING: Interval endocrinology and nephrology provider notes and original urology consult. Recent Results (from the past 48 hours) Bedside Glucose *Place/Obtain serum glucose if >500 per glucometer. Collection Time: 06/14/25 11:45 AM Result Value Ref Range Bedside Glucose (POC) 210 (H) 65 - 99 mg/dL Bedside Glucose *Place/Obtain serum glucose if >500 per glucometer. Collection Time: 06/14/25 4:32 PM Result Value Ref Range Bedside Glucose (POC) 145 (H) 65 - 99 mg/dL Bedside Glucose *Place/Obtain serum glucose if >500 per glucometer. Collection Time: 06/14/25 9:02 PM Result Value Ref Range Bedside Glucose (POC) 107 (H) 65 - 99 mg/dL Comprehensive metabolic panel Collection Time: 06/15/25 6:59 AM Result Value Ref Range SODIUM 148 (H) 134 - 146 mmol/L POTASSIUM 4.4 3.5 - 5.0 mmol/L CHLORIDE 116 (H) 98 - 109 mmol/L CARBON DIOXIDE 24 22 - 32 mmol/L ANION GAP 8 5 - 15 mmol/L BLOOD UREA NITROGEN 49 (H) 5 - 27 mg/dL CREATININE 1.81 (H) 0.60 - 1.30 mg/dL GLUCOSE 140 (H) 65 - 99 mg/dL CALCIUM 9.1 8.5 - 10.5 mg/dL TOTAL PROTEIN 6.6 6.0 - 8.0 g/dL ALBUMIN 3.6 3.2 - 5.3 g/dL ALKALINE PHOSPHATASE 77 39 - 130 U/L AST 27 <=41 U/L ALT 17 <=40 U/L BILIRUBIN,TOTAL 0.5 0.3 - 1.2 mg/dL EGFR Non-Race Dependent 40 (L) >=60 ml/min/1.73sq.m CBC auto differential Collection Time: 06/15/25 6:59 AM Result Value Ref Range WBC 4.2 4 - 11 x10E9/L RBC Count 4.13 4.1 - 5.7 X10E12/L Hemoglobin 13.1 13 - 17 g/dL Hematocrit 38.5 (L) 39 - 50 % MCV 93 80 - 100 fL MCH 31.6 27 - 34 pg MCHC 33.9 32 - 36 g/dL RDW 13.1 11.5 - 15 % Platelet Count 201 150 - 450 X10E9/L MPV 8.6 7 - 12 fL Neutrophils % 51.2 % Lymphocytes % 33.5 % Monocytes % 9.5 % Eosinophils % 4.8 % Basophils % 1.0 % Neutrophils Absolute (A) 2.2 1.5 - 6.6 10*3/uL Lymphocytes Absolute 1.4 1.0 - 3.5 10*3/uL Monocytes Absolute 0.4 0.0 - 0.9 10*3/uL Eosinophils Absolute 0.2 0.0 - 0.4 10*3/uL Basophils Absolute 0.0 0.0 - 0.2 10*3/uL Differential Type AUTOMATED DIFFERENTIAL Magnesium Collection Time: 06/15/25 6:59 AM Result Value Ref Range MAGNESIUM 2.8 (H) 1.8 - 2.6 mg/dL Phosphorus Collection Time: 06/15/25 6:59 AM Result Value Ref Range PHOSPHORUS 4.5 2.4 - 4.9 mg/dL Ionized calcium Collection Time: 06/15/25 6:59 AM Result Value Ref Range IONIZED CALCIUM - ICAN 4.7 4.5 - 5.3 mg/dL Bedside Glucose *Place/Obtain serum glucose if >500 per glucometer. Collection Time: 06/15/25 7:59 AM Result Value Ref Range Bedside Glucose (POC) 146 (H) 65 - 99 mg/dL Bedside Glucose *Place/Obtain serum glucose if >500 per glucometer. Collection Time: 06/15/25 12:48 PM Result Value Ref Range Bedside Glucose (POC) 231 (H) 65 - 99 mg/dL Bedside Glucose *Place/Obtain serum glucose if >500 per glucometer. Collection Time: 06/15/25 4:04 PM Result Value Ref Range Bedside Glucose (POC) 227 (H) 65 - 99 mg/dL Potassium Collection Time: 06/15/25 5:52 PM Result Value Ref Range POTASSIUM 4.5 3.5 - 5.0 mmol/L Sodium Collection Time: 06/15/25 5:52 PM Result Value Ref Range SODIUM 147 (H) 134 - 146 mmol/L Bedside Glucose *Place/Obtain serum glucose if >500 per glucometer. Collection Time: 06/15/25 8:58 PM Result Value Ref Range Bedside Glucose (POC) 193 (H) 65 - 99 mg/dL Comprehensive metabolic panel Collection Time: 06/16/25 5:48 AM Result Value Ref Range SODIUM 145 134 - 146 mmol/L POTASSIUM 4.8 3.5 - 5.0 mmol/L CHLORIDE 112 (H) 98 - 109 mmol/L CARBON DIOXIDE 23 22 - 32 mmol/L ANION GAP 10 5 - 15 mmol/L BLOOD UREA NITROGEN 54 (H) 5 - 27 mg/dL CREATININE 1.93 (H) 0.60 - 1.30 mg/dL GLUCOSE 171 (H) 65 - 99 mg/dL CALCIUM 9.3 8.5 - 10.5 mg/dL TOTAL PROTEIN 6.9 6.0 - 8.0 g/dL ALBUMIN 3.7 3.2 - 5.3 g/dL ALKALINE PHOSPHATASE 86 39 - 130 U/L AST 32 <=41 U/L ALT 24 <=40 U/L BILIRUBIN,TOTAL 0.5 0.3 - 1.2 mg/dL EGFR Non-Race Dependent 37 (L) >=60 ml/min/1.73sq.m CBC auto differential Collection Time: 06/16/25 5:48 AM Result Value Ref Range WBC 5.5 4 - 11 x10E9/L RBC Count 4.17 4.1 - 5.7 X10E12/L Hemoglobin 13.2 13 - 17 g/dL Hematocrit 38.8 (L) 39 - 50 % MCV 93 80 - 100 fL MCH 31.5 27 - 34 pg MCHC 33.9 32 - 36 g/dL RDW 13.4 11.5 - 15 % Platelet Count 213 150 - 450 X10E9/L MPV 8.6 7 - 12 fL Neutrophils % 56.3 % Lymphocytes % 27.7 % Monocytes % 10.8 % Eosinophils % 4.1 % Basophils % 1.1 % Neutrophils Absolute (A) 3.1 1.5 - 6.6 10*3/uL Lymphocytes Absolute 1.5 1.0 - 3.5 10*3/uL Monocytes Absolute 0.6 0.0 - 0.9 10*3/uL Eosinophils Absolute 0.2 0.0 - 0.4 10*3/uL Basophils Absolute 0.1 0.0 - 0.2 10*3/uL Differential Type AUTOMATED DIFFERENTIAL Magnesium Collection Time: 06/16/25 5:48 AM Result Value Ref Range MAGNESIUM 2.6 1.8 - 2.6 mg/dL Phosphorus Collection Time: 06/16/25 5:48 AM Result Value Ref Range PHOSPHORUS 5.1 (H) 2.4 - 4.9 mg/dL Bedside Glucose *Place/Obtain serum glucose if >500 per glucometer. Collection Time: 06/16/25 7:55 AM Result Value Ref Range Bedside Glucose (POC) 162 (H) 65 - 99 mg/dL I also reviewed his abdominal pelvic CT, retroperitoneal ultrasound, and nuclear scan films and reports. Patient with improved left greater than right bilateral hydroureteronephrosis with right ureter seen completely to the bladder and left ureter to my view at least to the pelvis, actually with creatinine rising from 1.31 at admission to 1.93 presently with only 32% differential function of the l eft kidney and substantial concern for some degree of obstruction on the drainage pattern there. IMPRESSIONS: 1. [facility] resident history alcohol abuse, chronic Eliquis from left lower extremity DVT,diabetes admitted [facility] 06/04/2025 with intra thalamic hemorrhage, AMS, from a fall with same date CT bilateral left greater than right hydroureteronephrosis on the right clearly to the bladder and on the left to at least the pelvis with thick-walled bladder and elevated creatinine 1.31 subsequently rising to 1.93 despite Mayo catheter, 32% differential function left kidney with T1 half washout times 85.1 minutes left and 64.8 minutes right Mag 3 nuclear scan 06/14/2025; Ol[place] Recommendations: 1. Extensive telephone conversation today with patient's discussion options of noninterventionwith consideration of clinical expectations from his intracranial bleed, observation, cystoscopy, left retrograde pyelogram with possible placement left ureteral stent requiring a general anesthetic,or left nephrostomy tube placement request. The procedure of cystoscopic stent insertion was described. Risks of bleeding, infection, inability to place stent, possible need for retrograde pyelogram,stent side effects and need for timely removal or replacement, ureteroscopy, or nephrostomy tube, injury to urinary tract structures, and anesthetic risks including , mi, CVA, DVT, and PE were re viewed. Reviewed empirically there would be some increased risk with general anesthetic given his intracranial bleed. Also reviewed risks of nephrostomy tube including bleeding, infection, pain, inability to place tube, and injury to kidney or surrounding structures and need for maintenance of nephrostomy tube. Further advised nephrostomy tube would give more definitive relief of any obstruction present, and I am not particularly confident that a stent will improve his renal function, and a nephrostomy tubemay not either. Reviewed and nephrostomy tube could always be removed if it fails to improve the situation. She understandably wishes to discuss with her [id number] who is in the medical field. Emphasizedthis is not an emergent situation. We will follow with you. Thank you very much. I appreciate being asked to help with this patient's care. Liborio Mann Jr., M.D. [facility] [phone] * Alphonse Cuenca MD - 06/16/2025 8:18 AM EDT Neurovascular / Interventional neurology Intraparenchymal Hemorrhage Progress Note Date of admission 06/04/2025 5:25 PM PCP: CLARISA HANSEN APRN-OBSTETRICS GYN Reason of admission: IPH Deficit: AMS Last known well: Unclear, some time on 06/03/25 Patient seen at: ED Initial NIHSS: 9 Premorbid mRS: 0 Initial imaging: R Thalamic IPH with IVH ICH Score: 2 Initial BP reported: 134/83 Interval: Patient was seen and examined at bedside this morning. Vitals stable, no acute events reported overnight. Creatinine 1.9. NM Renogram obtained by Urology which shows no evidence of obstruction. Lowerextremity duplex obtained yesterday which shows no evidence of DVT or SVT. Restarting patient's Eliquis was discussed with the vascular surgery team who recommend that it is usually a common practice to give anticoagulant medication for 3 months in the setting of unprovokedDVTs, however in the patient's case the resumption of AC can be discussed in the outpatient settingafter discharge and repeating duplex. Subjective: Gianni Babin is a 70 y.o. male who initially presented to an outside hospital and thereafter was transferred to [facility] via air. Past medical history significant for hypertension, DM, HLD,Obesity, DM2, recent DVT on Eliquis. Per chart review, the patient was initially taken to an outside hospital ED by EMS for evaluation of altered mental status. The patient was not aware of where he was, what year it was or who the president was. Imaging studies were done at the outside hospital including CT brain which showed 2.3 cm right thalamic hemorrhage with intraventricular extension. He was on Eliquis due to recent DVT and started on Eliquis. In the ED Kcentra was given for reversal of Eliquis. He was also given Keppra 2g at the outside hospital and started on Cardene infusion. The patient was accepted by the trauma service and transferred to [facility]. Upon arrival to [facility] ED, vascular neurology consulted. Upon my evaluation the patient is currently on room air. He appears to be confused, answering questions but incorrectly. He is able to follow commands intermittently. The patient has stable blood pressure, currently 119/80. According to the family he had an episode of fall 3 days back. However, themain onset of confusion was this morning. Past medical history: DVT on Eliquis, HTN, HLD, Obesity, DM2 Home medications: Eliquis, Aspirin, Lipitor, Lisinopril, Metformin Social history: Daily alcohol drinker, chronic smoking Home medications: Medications Prior to Admission Medication Sig Dispense Refill Last Dose/Taking aspirin 81 mg Take 1 tablet (81 mg total) by mouth in the morning. Taking atorvastatin (LIPITOR) 20 mg tablet Take 1 tablet (20 mg total) by mouth every morning. TAKE 1 TABLET (20 MG) BY MOUTH IN THE MORNING Taking ELIQUIS 5 mg tablet Take 1 tablet (5 mg total) by mouth in the morning and 1 tablet (5 mg total) before bedtime. Taking fenofibrate (LOFIBRA) 160 mg tablet Take 1 tablet (160 mg total) by mouth in the morning. Taking lisinopriL (PRINIVIL,ZESTRIL) 40 mg tablet Take 1 tablet (40 mg total) by mouth in the morning. Taking magnesium aspart,citrate,oxide (TRIPLE MAGNESIUM COMPLEX) 400 mg magnesium capsule Take 400 mg by mouth in the morning. Taking metFORMIN (GLUCOPHAGE) 1000 mg tablet Take 1 tablet (1,000 mg total) by mouth in the morning and 1 tablet (1,000 mg total) in the evening. Take with meals. Taking ACCU-CHEK GUIDE ME GLUCOSE MTR misc USE DAILY OR DIRECTED FOR MONITORING OF DIABETES. ACCU-CHEK GUIDE TEST STRIPS strip USE DAILY ACCU-CHEK SOFTCLIX LANCETS lancets USE TO TEST DAILY Past medical history: Past Medical History: Diagnosis Date Diabetes mellitus type 2, controlled ([facility]) DVT (deep venous thrombosis) ([facility]) GERD (gastroesophageal reflux disease) Hyperlipidemia Hypertension ICH (intracerebral hemorrhage) ([facility]) 06/04/2025 Osteoarthritis Past surgical history: Past Surgical History: Procedure Laterality Date TONSILLECTOMY TOTAL HIP ARTHROPLASTY 06/2010 Family history: Hefamily history includes Heart attack in his father; Leukemia in his mother; Lymphoma in his mother; Pancreatic cancer in his father. Allergies: Hehas no known allergies. Social history: Social History Socioeconomic History Marital status: Spouse name: Not on file Number of children: Not on file Years of education: Not on file Highest education level: Not on file Occupational History Not on file Tobacco Use Smoking status: Every Day Current packs/day: 1.00 Average packs/day: 1 pack/day for 52.8 years (52.8 ttl pk-yrs) Types: Cigarettes Start date: 1972 Smokeless tobacco: Never Substance and Sexual Activity Alcohol use: Yes Drug use: Never Sexual activity: Not on file Other Topics Concern Not on file Social History Narrative Not on file Social Drivers of Health Financial Resource Strain: Not on file Food Insecurity: No Food Insecurity (06/11/2025) Hunger Screening Food Insecurity - Worry: Never True Food Insecurity - Inability: Never True Transportation Needs: No Transportation Needs (06/05/2025) PRAPARE - Transportation Lack of Transportation (Medical): No Lack of Transportation (Non-Medical): No Physical Activity: Not on file Stress: Not on file Social Connections: Not on file Interpersonal Safety: Patient Unable To Answer (06/05/2025) Humiliation, Afraid, Rape, and Kick questionnaire Fear of Current or Ex-Partner: Patient unable to answer Emotionally Abused: Patient unable to answer Physically Abused: Patient unable to answer Sexually Abused: Patient unable to answer Housing Instability: Low Risk (06/05/2025) Housing Instability Housing Instability: No Physical exam: Vital Signs: Blood pressure 99/66, pulse 70, temperature 36.8 ??C (98.3 ??F), temperature source Axillary, resp. rate 21, height 182.9 cm (6'), weight 101.7 kg (224 lb 3.3 oz), SpO2 90%. Respiratory Source: O2 Device: Nasal cannula Admission Weight: Weight: 117.3 kg (258 lb 9.6 oz) NIHSS: 1a Level of consciousness: 1=not alert but arousable by minor stimulation to obey, answer or respond 1b. LOC questions: 0=Performs both tasks correctly 1c. LOC commands: 0=Performs both tasks correctly 2. Best Gaze: 0=normal 3. Visual: 1=Partial hemianopia 4. Facial Palsy: 0=Normal symmetric movement 5a. Motor left arm: 0=No drift, limb holds 90 (or 45) degrees for full 10 seconds 5b. Motor right arm: 0=No drift, limb holds 90 (or 45) degrees for full 10 seconds 6a. motor left le=No drift, limb holds 90 (or 45) degrees for full 10 seconds 6b Motor right le=No drift, limb holds 90 (or 45) degrees for full 10 seconds 7. Limb Ataxia: 0=Absent 8. Sensory: 0=Normal; no sensory loss 9. Best Language: 1=Mild to moderate aphasia; some obvious loss of fluency or facility of comprehension without significant limitation on ideas expressed or form of expression. 10. Dysarthria: 1=Mild to moderate, patient slurs at least some words and at worst, can be understood with some difficulty 11. Extinction and Inattention: 0=No abnormality Total: 4 Labs/Imaging: Objective Lab work/Imaging: Lab Results Component Value Date HGBA1C 8.3 (H) 06/07/2025 CALCIUM 9.3 06/16/2025 K 4.8 06/16/2025 CO2 23 06/16/2025 BUN 54 (H) 06/16/2025 CREATININE 1.93 (H) 06/16/2025 Lab Results Component Value Date WBC 5.5 06/16/2025 HGB 13.2 06/16/2025 MCV 93 06/16/2025 PLT 213 06/16/2025 Lab Results Component Value Date INR 1.5 (H) 06/04/2025 No results found for: LDL , CHOLESTEROLT Imaging: Vas venous duplex lwr bilateral Result Date: 06/15/2025 Right: Limited visualization of veins in the thigh and calf due to body habitus and patient positioning. Lower extremity deep veins are compressible with spontaneous phasic spectral Doppler waveforms; superficial veins are compressible without intraluminal content. Left: Limited visualization of veins in the thigh and calf due to body habitus and patient positioning. Lower extremity deep veins are compressible with spontaneous phasic spectral Doppler waveforms; superficial veins are compressible without intraluminal content. Conclusions: BILATERAL: NO EVIDENCE of deep or superficial vein thrombosis of the lower extremities with limited visualization of lower extremity vein segments as described above. Recommendations: Any questions prior to finalization, please call the reading physician during normal business hours at the phone number beside their name. NM renogram with lasix Result Date: 06/15/2025 NM RENOGRAM WITH LASIX CLINICAL INDICATION: evaluate for obstructive uropathy . PREPARATION: Oral hydration. TECHNIQUE: Following intravenous injection of 4.4 mCi of Tc-99m MAG-3, dynamic renal bloodflow and excretory phase imaging with quantitative analysis were performed. At 7 minutes post-tracer, intravenous furosemide, 40 mg, was administered and sequential imaging monitoring diuretic response and quantitative analysis were performed COMPARISON: Ultrasound dated 06/07/2025. Patient demonstrated mild right hydronephrosis and left hydronephrosis. There was prominence of both extrarenal pelvis. FINDINGS: Timing of renal blood flow, cortical uptake, and excretion are prompt and symmetric. P arenchymal uptake is asymmetrical. Some delay and decrease in the right No gross cortical defect. The effective renal plasma flow in the right kidney 139.6mL/m and the left kidney is 65.1 mL/m. Time to maximum radiotracer uptake on the right is 12 minutes and the left is 8 minutes.(Normal <= 5 min.) Relative uptake right kidney 68% and left kidney 32%. 20min after T peak/max:Mild bilateral barry yed. (Normal<= 35%). After administration of intravenous furosemide, there was prompt clearance of radiotracer from the right and left renal pelves with T-1/2 on the right of 64.8 minutes and the left 85.1 minutes. (T1/2 Normal<= 10-15 min). IMPRESSION: 1. No scintigraphic evidence of high-grade obstruction. 2. Split renal function 32% on the left and 68% on the right. 3. There is persistent retention of activity in the dilated collecting systems no obstruction on the right and no high-grade obstruction but low-grade obstruction or stasis on the left may be present. Workstation:[id number] by Bradford Marroquin MD on 06/15/2025 4:29 PM Assessment: 70 years old male with past medical history of hypertension, hyperlipidemia, diabetes, obesity, recent DVT (on Eliquis) who had an episode of fall 3 days ago. Later on, the patient had an acute onsetof confusion in the morning and was taken to an outside hospital. CT head showed intraparenchymal hemorrhage and therefore the patient was transferred to [facility] for further workup. On examination, the patient was confused but no significant motor deficits at that time. They were admitted to the ICU for workup. MRI brain on 06/07: redemonstrated right thalamic hematoma with intraventricular extension Impression: R IPH with intra-ventricular extension, likely 2/2 HTN (ICH score 2) Others: Unprovoked DVT, plans for weekly duplex Plan: - Continue care on the intermediate floor with stroke service. - Increase nightly Seroquel to 25mg. - Resume home aspirin 81mg OD starting today. - Resumption of Eliquis discussed with vascular surgery, recommend following with outpatient vascular surgery and resumption will be decided at that time. - Currently on D2.5 100 cc/hour. Nephrology on board, appreciate recommendations and management. - Weekly duplex of LE to monitor and DVT prophylaxis per vascular surgery recommended - Fluctuating blood glucose levels after feeds, endocrinology on board, appreciate recommendations and management. - Nephrology on board for blood pressure medication adjustments and CKD. Currently on coreg, amlodipine, lasix, lisinopril. - Antithrombotic plans: Patient to follow-up with vascular surgery in the outpatient setting and based on further duplex studies get their advice regarding need for therapy and resumption. - UA positive for LE, completed course of ceftriaxone. - Considering patient is chronic alcoholic and slow in communication, continue thiamine 500mg TID. - vEEG discontinued on 06/06. Levetiracetam levels therapeutic. - Given Keppra due to provoked seizure at the outside hospital. Completed a 7 day course. - Target SBP 130-150. PRN Hydralazine and labetalol - Will need outpatient evaluation for SOFIA. - Code status: Full - Dispo: TBD - DVT px: Heparin 5000U TID Staffed with: Dr. Josué Cuenca MD PGY-3 Neurology Resident 06/16/25 8:18 AM Cosigned by Yani Moses MD at 06/16/2025 1:51 PM EDT Associated attestation - Yani Moses MD - 06/16/2025 1:51 PM EDT Patient seen and examined with resident. I agree with the main component with the resident note including the HPI, ROS, Physical exam and assessment and plan. With the following changes: Will start ASA as long as other services are done with procedures,etc. Vascular surgery will continue to follow the patient outpatient. * Katrin Jules MD - 06/15/2025 1:27 PM EDT Images from the original note were not included. [facility] Endocrinology [place] [facility] [address] [place] [address] Service Pager: Reinier Patel MD, Interim Chief MD Henry Mulligan MD Margo Joubran, PA-C Alexandrea Vizzaccaro, PA-C Austin Howard, PA-C Manali Pragani, MD, Fellow Herbie Zhao MD, Fellow Ricardo Real MD, Fellow Katrin Jules MD, Fellow NO NEED to PAGE for NEW CONSULTS Secure Giving Assistant chat to Academic Endocrinology Page for immediate attention. Diabetes Management Service Progress Note Patient : Gianni Babin; 70 y.o. Location: A0/ Admit Date: 06/04/2025 Hospital Day: Hospital Day: 12 Reason for Consult: Diabetes management Assessment/Plan Blood Glucose Monitoring Results, Interpretation Results from last 7 days Lab Units 06/15/25 1248 06/15/25 0759 06/15/25 0659 06/14/25 2102 06/14/25 1632 06/14/25 1145 06/14/25 0902 06/14/25 0625 BEDSIDE GLUCOSE mg/dL 231* 146* -- 107* 145* 210* 156* -- GLUCOSE mg/dL -- -- 140* -- -- -- -- 156* Results/Impression/Conclusion: [] Basal/Bolus insulin imbalance with significant glycemic variability: consider adjusting basal insulin-bolus insulin ratio close to 50%-50% of TDD (total daily insulin) [] Overnight blood glucose reduction: consider decreasing basal insulin (Lantus) or bedtime correctional insulin (Humalog) [] Fasting hypoglycemia: consider decreasing basal insulin (Lantus) or bedtime correctional insulin(Humalog) [] Postprandial hypoglyemia: consider decreasing prandial or meal insulin (Humalog) after [] breakfast [] lunch [] evening meal [] nighttime snack [] Hypoglycemia due to over-correction [] Fasting hyperglycemia: consider increasing basal insulin (Lantus) [x] Postprandial hyperglycemia: consider increasing prandial or meal insulin (Humalog) after [] breakfast [x] lunch [] evening meal [] nighttime snack [] Hyperglycemia due to tube feeds Generally, change insulin by 10 to 30 % depending on the severity of glycemic excursions. For noncritically ill individuals (those not in the ICU), a glycemic goal of 100-180 mg/dL (premeal<140 mg/dL) is recommended. For most critically ill individuals (those in the ICU), a glycemic goal of 140- 180 mg/dL is recommended. For selected individuals (e.g., those undergoing cardiac surgery), more stringent glycemic goals (110-140 mg/dL) may be appropriate. Blood glucoses above 200 mg/dl are [facility] monitored performance measures. ASSESSMENT and PLAN: Gianni Babin has diabetes mellitus type 2 complicated by cardiovascular disease. Admitted with Intracerebral hemorrhage. 1. Hypoglycemia due to current illness Tube feeding discontinued on 06/12/25 Patient on Pureed diet 2. DM Type 2 with hyperglycemia Last HbA1c: Lab Results Component Value Date HGBA1C 8.3 (H) 06/07/2025 Results from last 7 days Lab Units 06/15/25 0659 CREATININE mg/dL 1.81* EGFR (CKD-EPI) NON-RACE DEPENDENT ml/min/1.73sq.m 40* [] Unstable-Improving but further adjustment needed as below [] Unstable-Worse and significant adjustment needed as below [x] Stable and no changes are mentioned below. The following changes were made: Will continue the same treatment and will monitor the postprandial glucose for one more day and make changes accordingly. Basal insulin: Glargine (or Lantus) : _10_units, [] daily AM [x] daily at bedtime [] BID (9 AM, 9 PM) Prandial or meal insulin: Lispro (or Humalog) [x] by insulin to carb ratio = _1: 15 grams of carbohydrate in a meal AC [] _ _ units every 4 hours for continuous tube feeding (Provide ~30% of TDI as basal insulin) Correctional insulin: Lispro (or Humalog): [x] 1-5 AC (above 150), 1-4 HS (above 200) [] 2-10 AC (above 150), 2-8 HS (above 200) [] 3-15 AC (above 150), 3-12 HS (above 200) For while NPO or tube feeding or TPN [] 1-5 q4h (above 180) [] 2-10 q4h (above 180) [] 3-15 q4h (above 180) Thank you for consulting our Diabetes Management Team (Endocrinology). We will continue to follow up. Subjective No acute over night event, no acute concerns today.Hemodynamically stable. On room air. Chief Complaint Patient presents with Fall History: Gianni Babin is a 70-year-old male known case of hypertension, hyperlipidemia, DM type 2 admitted with a complaint of fall and had an intracranial hemorrhage found to be at the site of the right thalamic area and ventricular extension of the bleed. The patient was consulted for the diabetic management, he did not follow any electrical parts reconditioner in thecompliance with the metformin is questionable. No use of insulin previously. A1c is 8.3 on June 07, 2025. Diabetes History:* history provided by patient's Duration of Diabetes: Diagnosed- 2018 Complications of Diabetes: Retinopathy: No Nephropathy: No Peripheral neuropathy: No Autonomic neuropathy: No Cardiovascular disease: No Cerebrovascular disease: Yes Peripheral arterial disease: No Home regimen: Diabetes medications: metformin 1000 mg b.I.d. Home blood glucose monitoring: no Hypoglycemia frequency: unsure Hypoglycemic awareness: unsure Family History: Family history of diabetes: unsure Steroids / Other Glycemia-Affecting Medications: [No] Inpatient diet/nutrition: Dietary Orders (From admission, onward) Adult nutrition supplements Adult diet Level 4 Pureed diet; Level 3 Moderately Thick; No fluids on tray Medical History ROS/Subjective/Interval history: Food intake: [x] Good [] Decreased [] Poor [] NPO Symptom Yes No Comment Hypoglycemia [] [x] When: Decreased appetite [] [x] Nausea [] [x] Vomiting [] [x] Abdominal discomfort/pain [] [x] Review of Systems As mentioned above Objective Physical Exam: BP 101/70 Pulse 63 Temp 36.3 ??C (97.3 ??F) (Oral) Resp 21 Ht 182.9 cm (6') Wt 101.2 kg (223 lb 1.7 oz) SpO2 94% BMI 30.26 kg/m?? Physical ExamNot oriented to time and place General appearance: NAD HEENT: no JVD, no lymphadenopathy. Heart exam: normal S1-S2 Lungs: clear to auscultation bilaterally Abdomen: soft, no tenderness, no guarding, positive bowel sounds Extremities: no edema Vascular: adequate pulses and no carotid bruits. Musculoskeletal: no joint tenderness or swelling. Intake/Output: Intake/Output Summary (Last 24 hours) at 06/15/2025 1327 Last data filed at 06/15/2025 1249 Gross per 24 hour Intake 697.79 ml Output 2250 ml Net -1552.21 ml Steroids / Other Glycemia-Affecting Medications: [No] Diet/Nutrition: Dietary Orders (From admission, onward) Start Ordered 06/14/25 1511 Adult diet Level 4 Pureed diet; Level 3 Moderately Thick; No fluids on tray Diet effective now Comments: Meds in puree, small bites, liquids given by spoon only and supervision needed during meals Question Answer Comment Diet Type: Level 4 Pureed diet Liquid Modifiers: Level 3 Moderately Thick Additional Liquid/Fluid Modifiers: No fluids on tray 06/14/25 1510 06/14/25 1054 Adult nutrition supplements Continuous Question Answer Comment Diet Type or Consistency: Level 4 Pureed diet Select Supplement: Thick Frozen Dessert Supplement Frequency: TID 06/14/25 1053 Recent Labs: Results from last 7 days Lab Units 06/15/25 0659 06/14/2525 06/13/25 0558 06/12/254 06/11/25 0305 WBC x10E9/L 4.2 6.5 6.3 5.0 5.4 HEMOGLOBIN g/dL 13.1 13.9 14.4 13.9 13.3 HEMATOCRIT % 38.5* 40.9 41.9 40.7 39.2 PLATELETS X10E9/L 201 217 217 211 203 Results from last 7 days Lab Units 06/15/25 0659 06/14/25 0625 06/13/25 0558 06/12/254 06/11/25 0305 SODIUM mmol/L 148* 146 146 144 140 POTASSIUM mmol/L 4.4 5.1* 4.7 4.6 4.3 CHLORIDE mmol/L 116* 112* 109 103 103 CO2 mmol/L 24 25 28 31 27 BUN mg/dL 49* 39* 36* 32* 26 CREATININE mg/dL 1.81* 1.67* 1.61* 1.62* 1.84* EGFR (CKD-EPI) NON-RACE DEPENDENT ml/min/1.73sq.m 40* 44* 46* 46* 39* CALCIUM mg/dL 9.1 9.4 9.5 9.9 9.3 Results from last 7 days Lab Units 06/15/25 0659 06/14/25 0625 06/13/25 0558 06/12/25 0424 06/11/25 0305 ALBUMIN g/dL 3.6 3.7 3.8 3.6 3.6 Last HbA1c: Lab Results Component Value Date HGBA1C 8.3 (H) 06/07/2025 Cosigned by Henry Godwin MD at 06/15/2025 4:49 PM EDT Associated attestation - Henry Godwin MD - 06/15/2025 4:49 PM EDT I have discussed the patient's history, exam findings and reviewed pertinent studies with Dr. Jules. I personally evaluated this patient on the day of the encounter, performed dill portion(s) of the service, participated in the management and agree with overall evaluation plan as delineated above. I have the following additional comments: 70 year old male with T2DM admitted for ICH - We have updated inpatient glucose lowering regimen as follows: Glargine 10 units daily + lispro CR 10 + STUART We will continue to monitor blood glucose trends and adjust glucose lowering regimen as appropriate, while patient is in the hospital Henry Godwin MD 06/15/25 * Renita Matson DO - 06/15/2025 10:05 AM EDT Images from the original note were not included. Nephrology Daily Progress Note IMPRESSION: Nonoliguric acute kidney injury on underlying chronic kidney disease stage IIIA with baseline creatinine around 1.3-1.4 mg/dL, acute kidney injury likely secondary to obstructive uropathy, renal function initially improving creatinine again rising this morning up to 1.8 mg/dL. Bilateral hydronephrosis, status post Mayo catheter placement renal ultrasound from 06/07/2025 still showing bilateral hydronephrosis. Urology following with plans of Lasix scan. Hypertensive emergency, now improved blood pressure is currently at goal Pseudo hyperkalemia secondary to hemolyzed specimen Hypernatremia due to free water deficit, on hypotonic fluids Diabetes mellitus type 2 management per primary Pyuria, patient completed course of antibiotics Dysphagia: On level 4. Diet PLAN: 1. Start D2.5 per scale 2. Renal panel daily 3. Strict I&Os 4. Awaiting Urology input for further evaluation of ongoing hydronephrosis 5. Currently hold RAAS blockade 6. Noted urology's plans for Lasix scan INTERVAL HISTORY Patient seen examined at bedside. Hemodynamically stable. On room air. 1.5 L of urine output documented over the last 24 hours. PROBLEM LIST: Acute kidney injury on Chronic kidney disease stage IIIA with baseline creatinine around 1.3-1.4 mg/dL: CT scan of abdomen pelvis with contrast on 06/04/2025 showed cortical scarring with significantcaliectasis and hydronephrosis right ureter is dilated down to the urinary bladder. Cortical scarring. Left kidney significant hydronephrosis and caliectasis no discrete cortical scarring. Renal ultrasound showed right hydronephrosis and mild left hydronephrosis. Urine protein to creatinine ratio is 1 g/g. Hepatitis panel and HIV are negative C3 is normal. C4 is on the high side which is 53. Rheumatoid factor is normal. Eerf-jcjnol-dejxeppz DNA is negative. LUIZA is negative. Glomerular basement membrane antibodies are negative. SPEP is negative for M bands. Anca was negative. 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 VITAL SIGNS TREND: Vitals: 06/15/25 0008 06/15/25 0436 06/15/25 0504 06/15/25 0743 BP: 103/55 97/60 108/53 113/66 Pulse: 67 59 70 53 Resp: 23 16 20 15 Temp: 36.5 ??C (97.7 ??F) 36.2 ??C (97.2 ??F) 36.3 ??C (97.3 ??F) TempSrc: Oral Oral Oral SpO2: 95% 96% 98% 93% Weight: Height: INTAKE/OUTPUT: Intake/Output Summary (Last 24 hours) at 06/15/2025 1005 Last data filed at 06/15/2025 0451 Gross per 24 hour Intake 697.79 ml Output 1150 ml Net -452.21 ml No intake/output data recorded. WEIGHT: Last 3 Weight Readings 06/11/25 0445 06/12/25 0400 06/13/25 0500 Weight: 109.1 kg (240 lb 8.4 oz) 110.3 kg (243 lb 2.7 oz) 101.2 kg (223 lb 1.7 oz) PHYSICAL EXAM: Blood pressure 113/66, pulse 53, temperature 36.3 ??C (97.3 ??F), temperature source Oral, resp. rate 15, height 182.9 cm (6'), weight 101.2 kg (223 lb 1.7 oz), SpO2 93%. Temp: [36.2 ??C (97.1 ??F)-36.6 ??C (97.9 ??F)] 36.3 ??C (97.3 ??F) Pulse: [53-73] 53 Resp: [15-23] 15 BP: (97-135)/(53-78) 113/66 SpO2: [90 %-98 %] 93 % O2 Device: None (Room air) O2 Flow Rate (L/min): [0 L/min-2 L/min] 2 L/min General appearance: Continues to be encephalopathic, HEENT: no JVD, no lymphadenopathy. Heart exam: normal S1-S2 Lungs: clear to auscultation bilaterally Abdomen: soft, no tenderness, no guarding, positive bowel sounds Extremities: no edema Vascular: adequate pulses and no carotid bruits. Musculoskeletal: no joint tenderness or swelling. LABORATORY EVALUATION: Results from last 7 days Lab Units 06/15/2565806/14/2562406/13/25 0558 06/12/25 0424 06/11/25 0305 SODIUM mmol/L 148* 146 146 144 140 POTASSIUM mmol/L 4.4 5.1* 4.7 4.6 4.3 CHLORIDE mmol/L 116* 112* 109 103 103 CO2 mmol/L 24 25 28 31 27 ANION GAP mmol/L 8 9 9 10 10 BUN mg/dL 49* 39* 36* 32* 26 CREATININE mg/dL 1.81* 1.67* 1.61* 1.62* 1.84* CALCIUM mg/dL 9.1 9.4 9.5 9.9 9.3 MAGNESIUM mg/dL 2.8* 2.5 2.4 2.6 1.9 PHOSPHORUS mg/dL 4.5 4.1 3.5 4.6 4.8 CALCIUM, IONIZED mg/dL 4.7 4.9 5.1 5.1 4.5 Results from last 7 days Lab Units 06/15/2559 06/14/2562406/13/25 0558 06/12/25 0424 06/11/25 0305 PROTEIN TOTAL g/dL 6.6 7.1 7.2 6.7 6.7 ALBUMIN g/dL 3.6 3.7 3.8 3.6 3.6 AST U/L 27 28 20 18 14 ALT U/L 17 15 16 14 7 BILIRUBIN, TOTAL mg/dL 0.5 0.6 0.6 0.5 0.4 ALK PHOS U/L 77 76 75 72 68 Results from last 7 days Lab Units 06/15/25 0659 06/14/25 0625 06/13/25 0558 06/12/25 0424 06/11/25 0305 WBC x10E9/L 4.2 6.5 6.3 5.0 5.4 HEMOGLOBIN g/dL 13.1 13.9 14.4 13.9 13.3 HEMATOCRIT % 38.5* 40.9 41.9 40.7 39.2 PLATELETS X10E9/L 201 217 217 211 203 @RESUFAST(IRON,TIBC,FERRITIN,IRONSAT,FOLATE,[id number]))@ Results from last 7 days Lab Units 06/15/25 0759 06/15/25 0659 06/14/25 2102 06/14/25 1632 06/14/25 1145 BEDSIDE GLUCOSE mg/dL 146* -- 107* 145* 210* GLUCOSE mg/dL -- 140* -- -- -- Results from last 7 days Lab Units 06/12/25 0424 06/11/25 0305 06/10/25 0252 BNP pg/mL 101* 314* 291* CURRENT MEDICATIONS: amLODIPine, 10 mg, oral, Daily atorvastatin, 20 mg, oral, Nightly carvediloL, 25 mg, oral, BID heparin (porcine), 5,000 Units, subcutaneous, Q8H CATRINA hydrALAZINE, 100 mg, oral, Q8H CATRINA insulin glargine, 10 Units, subcutaneous, Daily insulin lispro, 1-5 Units, subcutaneous, With meals and nightly insulin lispro, 1-5 Units, subcutaneous, With meals and nightly magnesium oxide, 400 mg, oral, Daily melatonin, 5 mg, oral, Nightly RENITA MATSON D.O. For questions please call: Answering Service at [phone] Or Office at [phone] This note was created with the assistance of a speech-recognition program. Although the intention is to generate a document that actually reflects the content of the visit, no guarantees can be provided that every mistake has been identified and corrected by editing. * Alphonse Cuenca MD - 06/15/2025 8:26 AM EDT Neurovascular / Interventional neurology Intraparenchymal Hemorrhage Progress Note Date of admission 06/04/2025 5:25 PM PCP: SIENNA BARRIENTOS Reason of admission: IPH Deficit: AMS Last known well: Unclear, some time on 06/03/25 Patient seen at: ED Initial NIHSS: 9 Premorbid mRS: 0 Initial imaging: R Thalamic IPH with IVH ICH Score: 2 Initial BP reported: 134/83 Interval: Patient was seen and examined at bedside this morning. Vitals stable, reportedly agitated overnightrequiring Valium. On examination this morning, the patient appears irritated by a repeat examination also using slang words and angry saying everyone waking me up all the time . Currently on 0.45 NaCl. Nephrology on board. Subjective: Gianni Babin is a 70 y.o. male who initially presented to an outside hospital and thereafter was transferred to [facility] via air. Past medical history significant for hypertension, DM, HLD,Obesity, DM2, recent DVT on Eliquis. Per chart review, the patient was initially taken to an outside hospital ED by EMS for evaluation of altered mental status. The patient was not aware of where he was, what year it was or who the president was. Imaging studies were done at the outside hospital including CT brain which showed 2.3 cm right thalamic hemorrhage with intraventricular extension. He was on Eliquis due to recent DVT and started on Eliquis. In the ED Kcentra was given for reversal of Eliquis. He was also given Keppra 2g at the outside hospital and started on Cardene infusion. The patient was accepted by the trauma service and transferred to [facility]. Upon arrival to [facility] ED, vascular neurology consulted. Upon my evaluation the patient is currently on room air. He appears to be confused, answering questions but incorrectly. He is able to follow commands intermittently. The patient has stable blood pressure, currently 119/80. According to the family he had an episode of fall 3 days back. However, themain onset of confusion was this morning. Past medical history: DVT on Eliquis, HTN, HLD, Obesity, DM2 Home medications: Eliquis, Aspirin, Lipitor, Lisinopril, Metformin Social history: Daily alcohol drinker, chronic smoking Home medications: Medications Prior to Admission Medication Sig Dispense Refill Last Dose/Taking aspirin 81 mg Take 1 tablet (81 mg total) by mouth in the morning. Taking atorvastatin (LIPITOR) 20 mg tablet Take 1 tablet (20 mg total) by mouth every morning. TAKE 1 TABLET (20 MG) BY MOUTH IN THE MORNING Taking ELIQUIS 5 mg tablet Take 1 tablet (5 mg total) by mouth in the morning and 1 tablet (5 mg total) before bedtime. Taking fenofibrate (LOFIBRA) 160 mg tablet Take 1 tablet (160 mg total) by mouth in the morning. Taking lisinopriL (PRINIVIL,ZESTRIL) 40 mg tablet Take 1 tablet (40 mg total) by mouth in the morning. Taking magnesium aspart,citrate,oxide (TRIPLE MAGNESIUM COMPLEX) 400 mg magnesium capsule Take 400 mg by mouth in the morning. Taking metFORMIN (GLUCOPHAGE) 1000 mg tablet Take 1 tablet (1,000 mg total) by mouth in the morning and 1 tablet (1,000 mg total) in the evening. Take with meals. Taking ACCU-CHEK GUIDE ME GLUCOSE MTR misc USE DAILY OR DIRECTED FOR MONITORING OF DIABETES. ACCU-CHEK GUIDE TEST STRIPS strip USE DAILY ACCU-CHEK SOFTCLIX LANCETS lancets USE TO TEST DAILY Past medical history: Past Medical History: Diagnosis Date Diabetes mellitus type 2, controlled ([facility]) DVT (deep venous thrombosis) ([facility]) GERD (gastroesophageal reflux disease) Hyperlipidemia Hypertension ICH (intracerebral hemorrhage) ([facility]) 06/04/2025 Osteoarthritis Past surgical history: Past Surgical History: Procedure Laterality Date TONSILLECTOMY TOTAL HIP ARTHROPLASTY 06/2010 Family history: Hefamily history includes Heart attack in his father; Leukemia in his mother; Lymphoma in his mother; Pancreatic cancer in his father. Allergies: Hehas no known allergies. Social history: Social History Socioeconomic History Marital status: Spouse name: Not on file Number of children: Not on file Years of education: Not on file Highest education level: Not on file Occupational History Not on file Tobacco Use Smoking status: Every Day Current packs/day: 1.00 Average packs/day: 1 pack/day for 52.8 years (52.8 ttl pk-yrs) Types: Cigarettes Start date: 1972 Smokeless tobacco: Never Substance and Sexual Activity Alcohol use: Yes Drug use: Never Sexual activity: Not on file Other Topics Concern Not on file Social History Narrative Not on file Social Drivers of Health Financial Resource Strain: Not on file Food Insecurity: No Food Insecurity (06/11/2025) Hunger Screening Food Insecurity - Worry: Never True Food Insecurity - Inability: Never True Transportation Needs: No Transportation Needs (06/05/2025) PRAPARE - Transportation Lack of Transportation (Medical): No Lack of Transportation (Non-Medical): No Physical Activity: Not on file Stress: Not on file Social Connections: Not on file Interpersonal Safety: Patient Unable To Answer (06/05/2025) Humiliation, Afraid, Rape, and Kick questionnaire Fear of Current or Ex-Partner: Patient unable to answer Emotionally Abused: Patient unable to answer Physically Abused: Patient unable to answer Sexually Abused: Patient unable to answer Housing Instability: Low Risk (06/05/2025) Housing Instability Housing Instability: No Physical exam: Vital Signs: Blood pressure 113/66, pulse 53, temperature 36.3 ??C (97.3 ??F), temperature source Oral, resp. rate 15, height 182.9 cm (6'), weight 101.2 kg (223 lb 1.7 oz), SpO2 93%. Respiratory Source: O2 Device: None (Room air) Admission Weight: Weight: 117.3 kg (258 lb 9.6 oz) NIHSS: 1a Level of consciousness: 1=not alert but arousable by minor stimulation to obey, answer or respond 1b. LOC questions: 0=Performs both tasks correctly 1c. LOC commands: 0=Performs both tasks correctly 2. Best Gaze: 0=normal 3. Visual: 1=Partial hemianopia 4. Facial Palsy: 0=Normal symmetric movement 5a. Motor left arm: 0=No drift, limb holds 90 (or 45) degrees for full 10 seconds 5b. Motor right arm: 0=No drift, limb holds 90 (or 45) degrees for full 10 seconds 6a. motor left le=No drift, limb holds 90 (or 45) degrees for full 10 seconds 6b Motor right le=No drift, limb holds 90 (or 45) degrees for full 10 seconds 7. Limb Ataxia: 0=Absent 8. Sensory: 0=Normal; no sensory loss 9. Best Language: 1=Mild to moderate aphasia; some obvious loss of fluency or facility of comprehension without significant limitation on ideas expressed or form of expression. 10. Dysarthria: 1=Mild to moderate, patient slurs at least some words and at worst, can be understood with some difficulty 11. Extinction and Inattention: 0=No abnormality Total: 4 Labs/Imaging: Objective Lab work/Imaging: Lab Results Component Value Date HGBA1C 8.3 (H) 06/07/2025 CALCIUM 9.1 06/15/2025 K 4.4 06/15/2025 CO2 24 06/15/2025 BUN 49 (H) 06/15/2025 CREATININE 1.81 (H) 06/15/2025 Lab Results Component Value Date WBC 4.2 06/15/2025 HGB 13.1 06/15/2025 MCV 93 06/15/2025 PLT 201 06/15/2025 Lab Results Component Value Date INR 1.5 (H) 06/04/2025 No results found for: LDL , CHOLESTEROLT Imaging: Fluoroscopy swallow motility function Result Date: 06/14/2025 FL SWALLOW MOTILITY FUNCTION HISTORY: Oropharyngeal dysphagia COMPARISON: Swallow study 06/12/2025 TECHNIQUE: Video fluoroscopic swallow study was performed in conjunction with speech pathologist. Barium contrast materials of varying consistencies administered. FINDINGS: Fluoroscopy time: 2.4 minutes Reference air kerma: 6.3 mGy Runs: 11 Thin: Penetration. Mildly thick: Penetration. Moderately thick: No penetration or aspiration. Applesauce: No penetration or aspiration. IMPRESSION: 1. Abnormalswallow study as outlined above. 2. Please correlate with dedicated speech pathology report for additional details and recommendations. Approved by Med Figueroa MD on 06/14/2025 2:33 PM Stiven Wyman MD have personally reviewed the image(s) and agree with and/or edited the report Finalized by Stiven Vu MD on 06/14/2025 2:38 PM Assessment: 70 years old male with past medical history of hypertension, hyperlipidemia, diabetes, obesity, recent DVT (on Eliquis) who had an episode of fall 3 days ago. Later on, the patient had an acute onsetof confusion in the morning and was taken to an outside hospital. CT head showed intraparenchymal hemorrhage and therefore the patient was transferred to [facility] for further workup. On examination, the patient was confused but no significant motor deficits at that time. They were admitted to the ICU for workup. MRI brain on 06/07: redemonstrated right thalamic hematoma with intraventricular extension Impression: R IPH with intra-ventricular extension, likely 2/2 HTN (ICH score 2) Others: Unprovoked DVT, plans for weekly duplex Plan: - Continue care on the intermediate floor with stroke service. - Reportedly agitated overnight, will start nightly Seroquel 12.5mg BID. Can give additional dosageif remains agitated. - Currently on 0.45% NS 50 cc/hour. Nephrology on board, appreciate recommendations and management. - Speech therapy today still recommends level 4 Pureed and no liquids - Weekly duplex of LE to monitor and DVT prophylaxis per vascular surgery recommended - Fluctuating blood glucose levels after feeds, endocrinology on board, appreciate recommendations and management. - Nephrology on board for blood pressure medication adjustments and CKD. Currently on coreg, amlodipine, lasix, lisinopril. - Antithrombotic plans: Plans to resume home Eliquis 4 weeks after the event. - UA positive for LE, completed course of ceftriaxone. - Considering patient is chronic alcoholic and slow in communication, continue thiamine 500mg TID. - vEEG discontinued on 06/06. Levetiracetam levels therapeutic. - Given Keppra due to provoked seizure at the outside hospital. Completed a 7 day course. - Target SBP 130-150. PRN Hydralazine and labetalol - Will need outpatient evaluation for SOFIA. - Code status: Full - Dispo: TBD - DVT px: Heparin 5000U TID Staffed with: Dr. Josué Cuenca MD PGY-3 Neurology Resident 06/15/25 8:26 AM Cosigned by Yani Moses MD at 06/15/2025 12:56 PM EDT Associated attestation - Yani Moses MD - 06/15/2025 12:56 PM EDT Patient seen and examined with resident. I agree with the main component with the resident note including the HPI, ROS, Physical exam and assessment and plan. With the following changes: Maintain normotension. Will plan for MRI w/ and w/o in approx. 4 weeks. If benign, will resume eliquis at that time. F/u with vascular surgery to see if detention AC is needed. * ANDREW Serna - 06/14/2025 3:03 PM EDT Pt with likely chronic bladder outlet obstruction. Bilateral hydronephrosis was much improved post mayo catheter on SENA 06/[address] 06/04, however with BALJIT remaining, will order Lasix renoscan to confirm no obstructive uropathy. D/W Dr Escalante. - ANDREW SERNA 06/14/25 3:07 PM ANDREW Serna 06/14/25 1507 * Renita Matson DO - 06/14/2025 1:22 PM EDT Images from the original note were not included. Nephrology Daily Progress Note IMPRESSION: Nonoliguric acute kidney injury on underlying chronic kidney disease stage IIIA with baseline creatinine around 1.3-1.4 mg/dL, acute kidney injury likely secondary to obstructive uropathy, renal function plateauing creatinine at 1.6 mg/dL. Bilateral hydronephrosis, status post Mayo catheter placement renal ultrasound from 06/07/2025 still showing bilateral hydronephrosis. Awaiting serologies further evaluation. Hypertensive emergency, now improved blood pressure is currently at goal Pseudo hyperkalemia secondary to hemolyzed specimen Hypernatremia due to free water deficit, now improved Diabetes mellitus type 2 management per primary Pyuria , patient completed course of antibiotics Dysphagia: On level 4. Diet PLAN: 1. Continue IV fluids for 24 hours to 0.45% saline 2. Renal panel daily 3. Strict I&Os 4. Awaiting Urology input for further evaluation of ongoing hydronephrosis 5. Currently hold RAAS blockade with ongoing acute kidney injury will increase hydralazine and stoplisinopril. INTERVAL HISTORY Patient seen examined at bedside. Hemodynamically stable. On room air. 2.3 L of urine output documented over the last 24 hours. PROBLEM LIST: Chronic kidney disease stage IIIA with baseline creatinine around 1.3-1.4 mg/dL: CT scan of abdomenpelvis with contrast on 06/04/2025 showed cortical scarring with significant caliectasis and hydronephrosis right ureter is dilated down to the urinary bladder. Cortical scarring. Left kidney significant hydronephrosis and caliectasis no discrete cortical scarring. Renal ultrasound showed right hydronephrosis and mild left hydronephrosis. Urine protein to creatinine ratio is 1 g/g. Hepatitis panel and HIV are negative C3 is normal. C4 is on the high side which is 53. Rheumatoid factor is normal. Vpcj-ldluqt-vrngfyak DNA is negative. LUIZA is negative. Glomerular basement membrane antibodies arenegative. SPEP is negative for M bands. Anca was negative. 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 VITAL SIGNS TREND: Vitals: 06/14/25 0339 06/14/25 0448 06/14/25 0910 06/14/25 1146 BP: 120/82 126/75 139/79 129/75 Pulse: 63 62 71 65 Resp: Temp: 36.4 ??C (97.5 ??F) 36.3 ??C (97.3 ??F) 36.2 ??C (97.1 ??F) TempSrc: Oral Oral Oral SpO2: 96% 98% 98% 96% Weight: Height: INTAKE/OUTPUT: Intake/Output Summary (Last 24 hours) at 06/14/2025 1322 Last data filed at 06/14/2025 0910 Gross per 24 hour Intake -- Output 2290 ml Net -2290 ml I/O this shift: In: - Out: 350 [Urine:350] WEIGHT: Last 3 Weight Readings 06/11/25 0445 06/12/25 0400 06/13/25 0500 Weight: 109.1 kg (240 lb 8.4 oz) 110.3 kg (243 lb 2.7 oz) 101.2 kg (223 lb 1.7 oz) PHYSICAL EXAM: Blood pressure 129/75, pulse 65, temperature 36.2 ??C (97.1 ??F), temperature source Oral, resp. rate 23, height 182.9 cm (6'), weight 101.2 kg (223 lb 1.7 oz), SpO2 96%. Temp: [35.4 ??C (95.8 ??F)-36.5 ??C (97.7 ??F)] 36.2 ??C (97.1 ??F) Pulse: [60-89] 65 Resp: [17-23] 23 BP: (113-149)/(48-89) 129/75 SpO2: [95 %-98 %] 96 % O2 Device: None (Room air) O2 Flow Rate (L/min): [0 L/min] 0 L/min General appearance: Continues to be encephalopathic, HEENT: no JVD, no lymphadenopathy. Heart exam: normal S1-S2 Lungs: clear to auscultation bilaterally Abdomen: soft, no tenderness, no guarding, positive bowel sounds Extremities: no edema Vascular: adequate pulses and no carotid bruits. Musculoskeletal: no joint tenderness or swelling. LABORATORY EVALUATION: Results from last 7 days Lab Units 06/14/25 0625 06/13/25 0558 06/12/25 0424 06/11/25 0305 06/10/25 0252 SODIUM mmol/L 146 146 144 140 147* POTASSIUM mmol/L 5.1* 4.7 4.6 4.3 3.9 CHLORIDE mmol/L 112* 109 103 103 109 CO2 mmol/L 25 28 31 27 28 ANION GAP mmol/L 9 9 10 10 10 BUN mg/dL 39* 36* 32* 26 22 CREATININE mg/dL 1.67* 1.61* 1.62* 1.84* 1.63* CALCIUM mg/dL 9.4 9.5 9.9 9.3 9.4 MAGNESIUM mg/dL 2.5 2.4 2.6 1.9 2.0 PHOSPHORUS mg/dL 4.1 3.5 4.6 4.8 4.7 CALCIUM, IONIZED mg/dL 4.9 5.1 5.1 4.5 5.0 Results from last 7 days Lab Units 06/14/2562406/13/25 0506/12/2542306/11/2530406/10/25 025 PROTEIN TOTAL g/dL 7.1 7.2 6.7 6.7 6.4 ALBUMIN g/dL 3.7 3.8 3.6 3.6 3.4 AST U/L 28 20 18 14 13 ALT U/L 15 16 14 7 11 BILIRUBIN, TOTAL mg/dL 0.6 0.6 0.5 0.4 0.5 ALK PHOS U/L 76 75 72 68 64 Results from last 7 days Lab Units 06/14/2562406/13/25 0558 06/12/2542306/11/2530406/10/25 025 WBC x10E9/L 6.5 6.3 5.0 5.4 4.9 HEMOGLOBIN g/dL 13.9 14.4 13.9 13.3 13.1 HEMATOCRIT % 40.9 41.9 40.7 39.2 38.5* PLATELETS X10E9/L 217 217 211 203 209 @RESUFAST(IRON,TIBC,FERRITIN,IRONSAT,FOLATE,[id number]))@ Results from last 7 days Lab Units 06/14/25 1145 06/14/25 0902 06/14/25 0606/13/25205606/13/25 1717 BEDSIDE GLUCOSE mg/dL 210* 156* -- 161* 266* GLUCOSE mg/dL -- -- 156* -- -- Results from last 7 days Lab Units 06/08/25 0249 CPK ISOENZYMES U/L 123 Results from last 7 days Lab Units 06/12/25 04206/11/25 03006/10/25 0252 BNP pg/mL 101* 314* 291* CURRENT MEDICATIONS: amLODIPine, 10 mg, oral, Daily carvediloL, 25 mg, oral, BID heparin (porcine), 5,000 Units, subcutaneous, Q8H CATRINA hydrALAZINE, 25 mg, oral, Q8H [place] insulin glargine, 10 Units, subcutaneous, Daily insulin lispro, 1-5 Units, subcutaneous, With meals and nightly insulin lispro, 1-5 Units, subcutaneous, With meals and nightly lisinopriL, 40 mg, oral, Daily magnesium oxide, 400 mg, oral, Daily RENITA MATSON D.O. For questions please call: Answering Service at [phone] Or Office at [phone] This note was created with the assistance of a speech-recognition program. Although the intention is to generate a document that actually reflects the content of the visit, no guarantees can be provided that every mistake has been identified and corrected by editing. * Lux Anglin MD - 06/14/2025 1:15 PM EDT Images from the original note were not included. [facility] Endocrinology [place] [facility] [address] [place] [address] Service Pager: Reinier Patel MD, Interim Chief MD Henry Mulligan MD Margo Joubran, PA-C Alexandrea Vizzaccaro, PA-C Austin Howard, PA-C Manali Pragani, MD, Fellow Herbie Zhao MD, Fellow Ricardo Real MD, Fellow Katrin Jules MD, Fellow NO NEED to PAGE for NEW CONSULTS Secure Giving Assistant chat to Academic Endocrinology Page for immediate attention. Diabetes Management Service Progress Note Patient : Gianni Babin; 70 y.o. Location: [facility] Admit Date: 06/04/2025 Hospital Day: Hospital Day: 11 Reason for Consult: Diabetes management Assessment/Plan Blood Glucose Monitoring Results, Interpretation Results from last 7 days Lab Units 06/14/25 1145 06/14/25 0902 06/14/25 0625 06/13/25 2057 06/13/25 1717 06/13/25 1251 06/13/25 0814 06/13/25 0558 BEDSIDE GLUCOSE mg/dL 210* 156* -- 161* 266* 211* 184* -- GLUCOSE mg/dL -- -- 156* -- -- -- -- 172* Results/Impression/Conclusion: [] Basal/Bolus insulin imbalance with significant glycemic variability: consider adjusting basal insulin-bolus insulin ratio close to 50%-50% of TDD (total daily insulin) [] Overnight blood glucose reduction: consider decreasing basal insulin (Lantus) or bedtime correctional insulin (Humalog) [] Fasting hypoglycemia: consider decreasing basal insulin (Lantus) or bedtime correctional insulin(Humalog) [] Postprandial hypoglyemia: consider decreasing prandial or meal insulin (Humalog) after [] breakfast [] lunch [] evening meal [] nighttime snack [] Hypoglycemia due to over-correction [] Fasting hyperglycemia: consider increasing basal insulin (Lantus) [] Postprandial hyperglycemia: consider increasing prandial or meal insulin (Humalog) after [] breakfast [] lunch [] evening meal [] nighttime snack [x] Hyperglycemia due to tube feeds Generally, change insulin by 10 to 30 % depending on the severity of glycemic excursions. For noncritically ill individuals (those not in the ICU), a glycemic goal of 100-180 mg/dL (premeal<140 mg/dL) is recommended. For most critically ill individuals (those in the ICU), a glycemic goal of 140- 180 mg/dL is recommended. For selected individuals (e.g., those undergoing cardiac surgery), more stringent glycemic goals (110-140 mg/dL) may be appropriate. Blood glucoses above 200 mg/dl are [facility] monitored performance measures. ASSESSMENT and PLAN: Gianni Babin has diabetes mellitus type 2 complicated by cardiovascular disease. Admitted with Intracerebral hemorrhage. 1. Hypoglycemia due to the tube feed at the goal 65 mL /hr .tube feeding has been discontinued on 06/12/25 since patient is able to eat meals completely. 2. DM Type 2 with hyperglycemia Last HbA1c: Lab Results Component Value Date HGBA1C 8.3 (H) 06/07/2025 Results from last 7 days Lab Units 06/14/25 0625 CREATININE mg/dL 1.67* EGFR (CKD-EPI) NON-RACE DEPENDENT ml/min/1.73sq.m 44* [x] Unstable-Improving but further adjustment needed as below [] Unstable-Worse and significant adjustment needed as below [] Stable and no changes are mentioned below. The following changes were made: Will continue the same treatment and will monitor the postprandial glucose for one more day and make changes accordingly. Basal insulin: Glargine (or Lantus) : _10_units, [] daily AM [x] daily at bedtime [] BID (9 AM, 9 PM) Prandial or meal insulin: Lispro (or Humalog) [x] by insulin to carb ratio = _1: 15 grams of carbohydrate in a meal AC [] _ _ units every 4 hours for continuous tube feeding (Provide ~30% of TDI as basal insulin) Correctional insulin: Lispro (or Humalog): [x] 1-5 AC (above 150), 1-4 HS (above 200) [] 2-10 AC (above 150), 2-8 HS (above 200) [] 3-15 AC (above 150), 3-12 HS (above 200) For while NPO or tube feeding or TPN [] 1-5 q4h (above 180) [] 2-10 q4h (above 180) [] 3-15 q4h (above 180) Thank you for consulting our Diabetes Management Team (Endocrinology). We will continue to follow up. Subjective On the visit to the patient room he was sent down to have swallow evaluation. No over night event was documented. Chief Complaint Patient presents with Fall History: Gianni Babin is a 70-year-old male known case of hypertension, hyperlipidemia, DM type 2 admitted with a complaint of fall and had an intracranial hemorrhage found to be at the site of the right thalamic area and ventricular extension of the bleed. The patient was consulted for the diabetic management, he did not follow any electrical parts reconditioner in thecompliance with the metformin is questionable. No use of insulin previously. A1c is 8.3 on June 07, 2025. Diabetes History:* history provided by patient's Duration of Diabetes: Diagnosed- 2018 Complications of Diabetes: Retinopathy: No Nephropathy: No Peripheral neuropathy: No Autonomic neuropathy: No Cardiovascular disease: No Cerebrovascular disease: Yes Peripheral arterial disease: No Home regimen: Diabetes medications: metformin 1000 mg b.I.d. Home blood glucose monitoring: no Hypoglycemia frequency: unsure Hypoglycemic awareness: unsure Family History: Family history of diabetes: unsure Steroids / Other Glycemia-Affecting Medications: [No] Inpatient diet/nutrition: Dietary Orders (From admission, onward) Adult diet Level 4 Pureed diet; No fluids on tray Adult nutrition supplements Medical History ROS/Subjective/Interval history: Food intake: [x] Good [] Decreased [] Poor [] NPO Symptom Yes No Comment Hypoglycemia [] [x] When: Decreased appetite [] [x] Nausea [] [x] Vomiting [] [x] Abdominal discomfort/pain [] [x] Review of Systems Objective Physical Exam: BP 129/75 Pulse 65 Temp 36.2 ??C (97.1 ??F) (Oral) Resp 23 Ht 182.9 cm (6') Wt 101.2 kg (223 lb 1.7 oz) SpO2 96% BMI 30.26 kg/m?? Physical ExamNot oriented to time and place Intake/Output: Intake/Output Summary (Last 24 hours) at 06/14/2025 1433 Last data filed at 06/14/2025 0910 Gross per 24 hour Intake -- Output 2290 ml Net -2290 ml Steroids / Other Glycemia-Affecting Medications: [No] Diet/Nutrition: Dietary Orders (From admission, onward) Start Ordered 06/14/25 1054 Adult nutrition supplements Continuous Question Answer Comment Diet Type or Consistency: Level 4 Pureed diet Select Supplement: Thick Frozen Dessert Supplement Frequency: TID 06/14/25 1053 06/13/25 0835 Adult diet Level 4 Pureed diet; No fluids on tray Diet effective now Comments: Meds in puree, small bites Question Answer Comment Diet Type: Level 4 Pureed diet Additional Liquid/Fluid Modifiers: No fluids on tray 06/13/25 0834 Recent Labs: Results from last 7 days Lab Units 06/14/25 0625 06/13/25 0558 06/12/25 0424 06/11/25 0305 06/10/25 0252 WBC x10E9/L 6.5 6.3 5.0 5.4 4.9 HEMOGLOBIN g/dL 13.9 14.4 13.9 13.3 13.1 HEMATOCRIT % 40.9 41.9 40.7 39.2 38.5* PLATELETS X10E9/L 217 217 211 203 209 Results from last 7 days Lab Units 06/14/25 0625 06/13/25 0558 06/12/25 0424 06/11/25 0305 06/10/25 0252 SODIUM mmol/L 146 146 144 140 147* POTASSIUM mmol/L 5.1* 4.7 4.6 4.3 3.9 CHLORIDE mmol/L 112* 109 103 103 109 CO2 mmol/L 25 28 31 27 28 BUN mg/dL 39* 36* 32* 26 22 CREATININE mg/dL 1.67* 1.61* 1.62* 1.84* 1.63* EGFR (CKD-EPI) NON-RACE DEPENDENT ml/min/1.73sq.m 44* 46* 46* 39* 46* CALCIUM mg/dL 9.4 9.5 9.9 9.3 9.4 Results from last 7 days Lab Units 06/14/25 0625 06/13/25 0558 06/12/25 0424 06/11/25 0305 06/10/25 0252 ALBUMIN g/dL 3.7 3.8 3.6 3.6 3.4 Last HbA1c: Lab Results Component Value Date HGBA1C 8.3 (H) 06/07/2025 Lux Garcia MD Pgy 1 Internal Medicine [facility] Cosigned by Henry Godwin MD at 06/14/2025 8:57 PM EDT Associated attestation - Henry Godwin MD - 06/14/2025 8:57 PM EDT I have discussed the patient's history, exam findings and reviewed pertinent studies with Dr. Anglin. I personally evaluated this patient on the day of the encounter, performed dill portion(s) of the service, participated in the management and agree with overall evaluation plan as delineated above. I have the following additional comments: 70 year old male with T2DM admitted for ICH - We have updated inpatient glucose lowering regimen as follows: Glargine 10 units daily + lispro CR 15 + STUART We will continue to monitor blood glucose trends and adjust glucose lowering regimen as appropriate, while patient is in the hospital Henry Godwin MD 06/14/25 * Christiano Viera RN - 06/14/2025 11:27 AM EDT Images from the original note were not included. FOLLOW-UP: Post-Intensive Care Rounding Note Patient: Gianni Babin : 1955 Age: 70 y.o. Length of Stay: 10 days Admission Diagnosis: ICH (intracerebral hemorrhage) ([facility]) [I61.9] ST elevation [R94.31] Reviewing patient due to his recent transfer out from Intensive Care. Recorded vital signs are stable and the patient is not noted to be in any apparent distress. Telemetry and monitoring noted. Staff may call with any issues or concerns regarding his clinical presentation or stability. Thank you, Christiano Viera RN Rapid Response: [facility] * BRANDON Barahona - 06/14/2025 9:59 AM EDT NUTRITION ADULT FOLLOW UP NUTRITION ASSESSMENT: Patient History: Brief Clinical Summary: Pt admitted for ICH. Not ready for oral feedings per BLOCK HACKER eval today. Past medical history significant for hypertension, DM, HLD, Obesity, DM2, recent DVT on Eliquis. Renal following. NOTE IVF has been discontinued. Biochemical Data, Medical Tests, and Procedures: 06/06- failed BSSE 06/08- BLOCK HACKER still with NPO recs NGT placed 06/11- pulled out NGT 06/12- VFSS- passed for pureed no oral fluids Labs: Results from last 3 days Lab Units 06/14/25 0625 06/13/25 0558 06/12/25 0424 SODIUM mmol/L 146 146 144 POTASSIUM mmol/L 5.1* 4.7 4.6 CHLORIDE mmol/L 112* 109 103 CO2 mmol/L 25 28 31 BUN mg/dL 39* 36* 32* CREATININE mg/dL 1.67* 1.61* 1.62* CALCIUM mg/dL 9.4 9.5 9.9 ALBUMIN g/dL 3.7 3.8 3.6 ALK PHOS U/L 76 75 72 ALT U/L 15 16 14 AST U/L 28 20 18 Results from last 7 days Lab Units 06/14/25 0902 06/14/25 0625 06/13/25 2057 06/13/25 1717 06/13/25 1251 06/13/25 0814 06/13/25 0558 BEDSIDE GLUCOSE mg/dL 156* -- 161* 266* 211* 184* -- GLUCOSE mg/dL -- 156* -- -- -- -- 172* Results from last 3 days Lab Units 06/14/25 0606/13/25 0558 06/12/25 0424 WBC x10E9/L 6.5 6.3 5.0 HEMOGLOBIN g/dL 13.9 14.4 13.9 HEMATOCRIT % 40.9 41.9 40.7 PLATELETS X10E9/L 217 217 211 MCV fL 93 93 92 Results from last 3 days Lab Units 06/14/25 0625 06/13/25 0558 06/12/25 0424 06/11/25 1310 MAGNESIUM mg/dL 2.5 2.4 2.6 -- IONIZED MAGNESIUM mmol/L -- -- -- 0.70 Results from last 3 days Lab Units 06/14/25 0606/13/25 0558 06/12/25 0424 PHOSPHORUS mg/dL 4.1 3.5 4.6 CALCIUM, IONIZED mg/dL 4.9 5.1 5.1 Results from last 3 days Lab Units 06/14/25 0625 06/13/25 0558 06/12/25 0424 BILIRUBIN, TOTAL mg/dL 0.6 0.6 0.5 Lab Results Component Value Date HGBA1C 8.3 (H) 06/07/2025 Lab Results Component Value Date IRON 55 06/07/2025 TIBC 314 06/07/2025 FERRITIN 127 06/07/2025 Lab Results Component Value Date IRONSAT 18 (L) 06/07/2025 Lab Results Component Value Date CHOL 155 06/05/2025 Lab Results Component Value Date CHDL 5.0 06/05/2025 Lab Results Component Value Date HDL 31 (L) 06/05/2025 Lab Results Component Value Date LDLCALC 77 06/05/2025 Lab Results Component Value Date TRIG 237 (H) 06/05/2025 Lab Results Component Value Date VERYLOWLIP 47 (H) 06/05/2025 Lab Results Component Value Date [id number] 274 06/07/2025 Lab Results Component Value Date FOLATE 11.1 06/07/2025 No results found for: VITD25 Comments (labs): reviewed K 5.1 Medications/ Parenteral: Mag oxide Current Facility-Administered Medications Medication Dose Route Frequency Provider Last Rate Last Admin amLODIPine (NORVASC) tablet 10 mg 10 mg oral Daily Alphonse Cuenca MD barium sulfate (E-Z-HD) 98 % suspension 340 g 340 g oral Once in imaging Patricia Mcclellan MD barium sulfate (VARIBAR HONEY) 40 % (w/v) 29% (w/w) suspension 60 mL 60 mL oral Once in imaging Patricia Mcclellan MD barium sulfate (VARIBAR PUDDING) 40 % (w/v), 30% (w/w) oral paste 60 mL 60 mL oral Once in imaging Patricia Mcclellan MD calcium gluconate 3,000 mg in sodium chloride 0.9 % 100 mL IVPB 3,000 mg intravenous PRN Adan Plasencia MD calcium gluconate 4,000 mg in sodium chloride 0.9 % 250 mL IVPB 4,000 mg intravenous PRN Adan Plasencia MD calcium gluconate IVPB 2000 mg/100 mL (20 mg/mL premix) 2,000 mg intravenous PRN Adan Plasencia MD carvediloL (COREG) tablet 25 mg 25 mg oral BID Alphonse Cuenca MD 25 mg at 06/13/252154 dextrose (GLUTOSE) 40 % gel 15 g 15 g oral PRN Alphonse Cuenca MD dextrose 5 % (D5W) infusion 100 mL/hr intravenous Continuous PRN Alphonse Cuenca MD dextrose 50 % in water (D50W) 50% solution 25 mL 25 mL intravenous PRN Alphonse Cuenca MD glucagon HCL injection 1 mg 1 mg intramuscular PRN Alphonse Cuenca MD heparin (porcine) injection 5,000 Units 5,000 Units subcutaneous Q8H [facility] Alphonse Cuenca MD 5,000 Units at 06/14/25 0504 hydrALAZINE (APRESOLINE) injection 10 mg 10 mg intravenous Q4H PRN Alphonse Cuenca MD 10 mg at 06/05/25 1430 hydrALAZINE (APRESOLINE) tablet 25 mg 25 mg oral Q8H [facility] Alphonse Cuenca MD 25 mg at 06/14/25 0504 insulin glargine (LANTUS, SEMGLEE) injection pen 10 Units 10 Units subcutaneous Daily Fnu MD L[place] 10 Units at 06/13/25 1444 insulin lispro (HumaLOG) injection 1-5 Units 1-5 Units subcutaneous With meals and nightly Fnu MD Linnette 4 Units at 06/13/25 1813 insulin lispro (HumaLOG) injection 1-5 Units 1-5 Units subcutaneous With meals and nightly Fnu MD Linnette 1 Units at 06/13/25 2156 labetaloL (NORMODYNE,TRANDATE) injection 10 mg 10 mg intravenous Q5 Min PRN Alphonse Cuenca MD 10 mgat 06/10/25 1927 lisinopriL (PRINIVIL,ZESTRIL) tablet 40 mg 40 mg oral Daily Alphonse Cuenca MD magnesium oxide (MAGOX) tablet 400 mg 400 mg oral Daily Alphonse Cuenca MD magnesium sulfate IVPB 2000 mg/50 mL in iso-osmotic water (40 mg/mL premix) 2,000 mg intravenous PRN Alphonse Cuenca MD Stopped at 06/11/25 0643 Or magnesium sulfate IVPB 4000 mg/100 mL in iso-osmotic water (40 mg/mL premix) 4,000 mg intravenous PRN Alphonse Cuenca MD potassium chloride (K-TAB,KLOR-CON) CR tablet 20-60 mEq 20-60 mEq oral PRN Adan Plasencia MD Or potassium chloride (KAYCIEL) 20 mEq/15 mL solution 20-60 mEq 20-60 mEq oral PRN Adan Plasencia MD Or potassium chloride IVPB 10 mEq/100 mL in water (0.1 mEq/mL premix) 10 mEq intravenous PRN Adan Plasencia MD potassium chloride (KAYCIEL) 20 mEq/15 mL solution 20 mEq 20 mEq oral Daily Alphonse Cuenca MD sodium phosphate 20 mmol in sodium chloride 0.9 % 250 mL IVPB 20 mmol intravenous PRN Adan Plasencia MD Or sodium phosphate 20 mmol in sodium chloride 0.9 % 100 mL IVPB 20 mmol intravenous PRN Adan Plasencia MD Or sod phos di, mono-K phos mono (K-PHOS NEUTRAL) 250 mg tablet 2 tablet 2 tablet oral PRN Adan Plasencia MD Nutrition Focused Physical Findings 06/10- BMx2 Skin (per nursing flow sheets): Skin Color: [place]; Pale (06/13/252199) Skin Temp: Cool; Dry (06/13/252199) Wound (per nursing flow sheets): Gastrointestinal (per nursing flow sheets): Abdomen Assessment: Soft; Nondistended (06/13/252199) Last BM Date: 06/14/25 (06/14/25199) Passing Flatus: Yes (06/13/252199) RUQ Bowel Sounds: Active (06/13/252199) LUQ Bowel Sounds: Active (06/13/252199) RLQ Bowel Sounds: Active (06/13/252199) LLQ Bowel Sounds: Active (06/13/252199) GI Symptoms: None (06/13/252199) Edema (per nursing flow sheets): Generalized Edema: +1 (06/13/252199) RUE Edema: +1 (06/13/252199) LUE Edema: +1 (06/13/252199) RLE Edema: +2 (06/13/252199) LLE Edema: +2 (06/13/252199) Intake/ Output Last 24 hrs: Intake/Output Summary (Last 24 hours) at 06/14/2025 1000 Last data filed at 06/14/2025 0910 Gross per 24 hour Intake -- Output 2290 ml Net -2290 ml Food/Nutrition Related History: Diet/ Nutrition Order Review: Dietary Orders (From admission, onward) Start Ordered 06/13/25 0835 Adult diet Level 4 Pureed diet; No fluids on tray Diet effective now Comments: Meds in puree, small bites Question Answer Comment Diet Type: Level 4 Pureed diet Additional Liquid/Fluid Modifiers: No fluids on tray 06/13/25 0834 Inpatient Nutrition Support History: 06/06- TF started 06/12- TF stopped with pulling of NGT 06/12- oral diet started NO oral fluids Anthropometrics: Ht Readings from Last 1 Encounters: 06/12/25 182.9 cm (6') Last 3 Weight Readings 06/11/25 0445 06/12/25 0400 06/13/25 0500 Weight: 109.1 kg (240 lb 8.4 oz) 110.3 kg (243 lb 2.7 oz) 101.2 kg (223 lb 1.7 oz) Current 101.2kg ( 06/11) Admit Weight: 117.3kg (Bed Scale, 06/04) [place] Body Weight: 80.9kg Weight Changes: - Admit Body Mass Index: 35.1 kg/m??. Current Body Mass Index: Body mass index is 30.26 kg/m??. Comparative Standards: Estimated Energy Needs: 3393-0803 kcals daily. Method and weight used: 25-32 kcal/kg ibw Estimated Protein Needs: 97-160 grams daily. Method and weight used: 1.2-2g protein/kg ibw Estimated Fluid Needs: 3722-3077 ml daily. Method weight used: 1 ml/kg/kcal Comments: general needs Malnutrition Status: Malnutrition Present: not with information reviewed NUTRITION DIAGNOSIS: Intake Diagnosis: Inadequate oral intake (NI 2.1) -progressing NUTRITION INTERVENTIONS: Meals/Snacks-will add magic cups to trays, pt is taking his pureed diet very well. Recommendations: pt will need IVF for fluid needs while NPO for oral fluids. IF a repeat swallow study still shows pt needs to be NPO for fluids , then PEG will be next step for hydration route. GOAL(S): pt to receive estimated nutrition needs NUTRITION MONITORING AND EVALUATION: I/O,wts, labs TF tolerance, POC Pippa Cowart R.D,L.DPaddy Clinical dietitian Patient Touch extension:[phone] Direct Dial phone number: [phone] 06/14/25 10:00 AM * Mable Butt MD - 06/14/2025 8:33 AM EDT Neurovascular / Interventional neurology Intraparenchymal Hemorrhage Progress Note Date of admission 06/04/2025 5:25 PM PCP: SIENNA BARRIENTOS Reason of admission: IPH Deficit: AMS Last known well: Unclear, some time on 06/03/25 Patient seen at: ED Initial NIHSS: 9 Premorbid mRS: 0 Initial imaging: R Thalamic IPH with IVH ICH Score: 2 Initial BP reported: 134/83 Interval: Patient was seen and examined this morning. He was hypothermic overnight. He received 2 doses of Valium overnight due to agitation. Speech evaluated the patient, level 4 pureed and no Eliquis Subjective: Gianni Babin is a 70 y.o. male who initially presented to an outside hospital and thereafter was transferred to [facility] via air. Past medical history significant for hypertension, DM, HLD,Obesity, DM2, recent DVT on Eliquis. Per chart review, the patient was initially taken to an outside hospital ED by EMS for evaluation of altered mental status. The patient was not aware of where he was, what year it was or who the president was. Imaging studies were done at the outside hospital including CT brain which showed 2.3 cm right thalamic hemorrhage with intraventricular extension. He was on Eliquis due to recent DVT and started on Eliquis. In the ED Kcentra was given for reversal of Eliquis. He was also given Keppra 2g at the outside hospital and started on Cardene infusion. The patient was accepted by the trauma service and transferred to [facility]. Upon arrival to [facility] ED, vascular neurology consulted. Upon my evaluation the patient is currently on room air. He appears to be confused, answering questions but incorrectly. He is able to follow commands intermittently. The patient has stable blood pressure, currently 119/80. According to the family he had an episode of fall 3 days back. However, themain onset of confusion was this morning. Past medical history: DVT on Eliquis, HTN, HLD, Obesity, DM2 Home medications: Eliquis, Aspirin, Lipitor, Lisinopril, Metformin Social history: Daily alcohol drinker, chronic smoking Home medications: Medications Prior to Admission Medication Sig Dispense Refill Last Dose/Taking aspirin 81 mg Take 1 tablet (81 mg total) by mouth in the morning. Taking atorvastatin (LIPITOR) 20 mg tablet Take 1 tablet (20 mg total) by mouth every morning. TAKE 1 TABLET (20 MG) BY MOUTH IN THE MORNING Taking ELIQUIS 5 mg tablet Take 1 tablet (5 mg total) by mouth in the morning and 1 tablet (5 mg total) before bedtime. Taking fenofibrate (LOFIBRA) 160 mg tablet Take 1 tablet (160 mg total) by mouth in the morning. Taking lisinopriL (PRINIVIL,ZESTRIL) 40 mg tablet Take 1 tablet (40 mg total) by mouth in the morning. Taking magnesium aspart,citrate,oxide (TRIPLE MAGNESIUM COMPLEX) 400 mg magnesium capsule Take 400 mg by mouth in the morning. Taking metFORMIN (GLUCOPHAGE) 1000 mg tablet Take 1 tablet (1,000 mg total) by mouth in the morning and 1 tablet (1,000 mg total) in the evening. Take with meals. Taking ACCU-CHEK GUIDE ME GLUCOSE MTR misc USE DAILY OR DIRECTED FOR MONITORING OF DIABETES. ACCU-CHEK GUIDE TEST STRIPS strip USE DAILY ACCU-CHEK SOFTCLIX LANCETS lancets USE TO TEST DAILY Past medical history: Past Medical History: Diagnosis Date Diabetes mellitus type 2, controlled ([facility]) DVT (deep venous thrombosis) ([facility]) GERD (gastroesophageal reflux disease) Hyperlipidemia Hypertension ICH (intracerebral hemorrhage) ([facility]) 06/04/2025 Osteoarthritis Past surgical history: Past Surgical History: Procedure Laterality Date TONSILLECTOMY TOTAL HIP ARTHROPLASTY 06/2010 Family history: Hefamily history includes Heart attack in his father; Leukemia in his mother; Lymphoma in his mother; Pancreatic cancer in his father. Allergies: Hehas no known allergies. Social history: Social History Socioeconomic History Marital status: Spouse name: Not on file Number of children: Not on file Years of education: Not on file Highest education level: Not on file Occupational History Not on file Tobacco Use Smoking status: Every Day Current packs/day: 1.00 Average packs/day: 1 pack/day for 52.8 years (52.8 ttl pk-yrs) Types: Cigarettes Start date: 1973 Smokeless tobacco: Never Substance and Sexual Activity Alcohol use: Yes Drug use: Never Sexual activity: Not on file Other Topics Concern Not on file Social History Narrative Not on file Social Drivers of Health Financial Resource Strain: Not on file Food Insecurity: No Food Insecurity (06/11/2025) Hunger Screening Food Insecurity - Worry: Never True Food Insecurity - Inability: Never True Transportation Needs: No Transportation Needs (06/05/2025) PRAPARE - Transportation Lack of Transportation (Medical): No Lack of Transportation (Non-Medical): No Physical Activity: Not on file Stress: Not on file Social Connections: Not on file Interpersonal Safety: Patient Unable To Answer (06/05/2025) Humiliation, Afraid, Rape, and Kick questionnaire Fear of Current or Ex-Partner: Patient unable to answer Emotionally Abused: Patient unable to answer Physically Abused: Patient unable to answer Sexually Abused: Patient unable to answer Housing Instability: Low Risk (06/05/2025) Housing Instability Housing Instability: No Physical exam: Vital Signs: Blood pressure 126/75, pulse 62, temperature 36.4 ??C (97.5 ??F), temperature source Oral, resp. rate 20, height 182.9 cm (6'), weight 101.2 kg (223 lb 1.7 oz), SpO2 98%. Respiratory Source: O2 Device: None (Room air) Admission Weight: Weight: 117.3 kg (258 lb 9.6 oz) NIHSS: 1a Level of consciousness: 1=not alert but arousable by minor stimulation to obey, answer or respond 1b. LOC questions: 0=Performs both tasks correctly 1c. LOC commands: 0=Performs both tasks correctly 2. Best Gaze: 0=normal 3. Visual: 1=Partial hemianopia 4. Facial Palsy: 0=Normal symmetric movement 5a. Motor left arm: 0=No drift, limb holds 90 (or 45) degrees for full 10 seconds 5b. Motor right arm: 0=No drift, limb holds 90 (or 45) degrees for full 10 seconds 6a. motor left le=No drift, limb holds 90 (or 45) degrees for full 10 seconds 6b Motor right le=No drift, limb holds 90 (or 45) degrees for full 10 seconds 7. Limb Ataxia: 0=Absent 8. Sensory: 0=Normal; no sensory loss 9. Best Language: 1=Mild to moderate aphasia; some obvious loss of fluency or facility of comprehension without significant limitation on ideas expressed or form of expression. 10. Dysarthria: 1=Mild to moderate, patient slurs at least some words and at worst, can be understood with some difficulty 11. Extinction and Inattention: 0=No abnormality Total: 4 Labs/Imaging: Objective Lab work/Imaging: Lab Results Component Value Date HGBA1C 8.3 (H) 06/07/2025 CALCIUM 9.4 06/14/2025 K 5.1 (H) 06/14/2025 CO2 25 06/14/2025 BUN 39 (H) 06/14/2025 CREATININE 1.67 (H) 06/14/2025 Lab Results Component Value Date WBC 6.5 06/14/2025 HGB 13.9 06/14/2025 MCV 93 06/14/2025 PLT 217 06/14/2025 Lab Results Component Value Date INR 1.5 (H) 06/04/2025 No results found for: LDL , CHOLESTEROLT Imaging: Vas renal artery duplex complete Result Date: 06/13/2025 Right: Non-visualization of the renal artery, renal vein, and parenchymal arteries due to patient body habitus, positioning, and excessive patient breathing. Normal kidney size noted (9-12 cm) with color flow. Left: Non- visualization of the renal artery and renal vein due to patient body habitus, po sitioning, and excessive patient breathing. Normal kidney size noted (9-12 cm) with color flow. Normal parenchymal resistive index (RI), normal range is 0.53- 0.70 noted. Conclusions: RIGHT:Non-visualization of the abdomen, as describe above Technically inadequate renal duplex evaluation as described above, suggest alternative imaging modality if clinically warranted.LEFT:Non-visualization of the renal artery and renal veins due to body habitus; alternative imaging is recommended. Normal kidney size Recommendations: Any questions prior to finalization, please call the reading physician during normal business hours at the phone number beside their name. Assessment: 70 years old male with past medical history of hypertension, hyperlipidemia, diabetes, obesity, recent DVT (on Eliquis) who had an episode of fall 3 days ago. Later on, the patient had an acute onsetof confusion in the morning and was taken to an outside hospital. CT head showed intraparenchymal hemorrhage and therefore the patient was transferred to [facility] for further workup. On examination, the patient was confused but no significant motor deficits at that time. They were admitted to the ICU for workup. MRI brain on 06/07: redemonstrated right thalamic hematoma with intraventricular extension Impression: R IPH with intra-ventricular extension, likely 2/2 HTN (ICH score 2) Plan: - Continue care on the intermediate floor with stroke service. - Currently on NS 50 cc/hour. Considering patient's IPH, will recommend not being too aggressive atthis time. - Speech therapy today still recommends level for Pureed and no liquids - Weekly duplex of LE to monitor and DVT prophylaxis per vascular surgery recommended - Fluctuating blood glucose levels after feeds, endocrinology on board, appreciate recommendations and management. - Nephrology on board for blood pressure medication adjustments and CKD. Currently on coreg, amlodipine, lasix, lisinopril. - Antithrombotic plans: Plans to resume home Eliquis 4 weeks after the event. - UA positive for LE, completed course of ceftriaxone. - Considering patient is chronic alcoholic and slow in communication, continue thiamine 500mg TID. - vEEG discontinued on 06/06. Levetiracetam levels therapeutic. - NG tube was placed on 06/06 - Currently on Keppra due to provoked seizure at the outside hospital. Complete a 7 day course. - Target SBP 130-150. PRN Hydralazine and labetalol - Will need outpatient evaluation for SOFIA. - Code status: Full - Dispo: TBD - DVT px: Heparin 5000U TID Staffed with: Dr. Josué Butt MD PGY-2 Neurology Resident 06/14/25 8:33 AM Cosigned by Yani Moses MD at 06/14/2025 1:12 PM EDT Associated attestation - Yani Moses MD - 06/14/2025 1:12 PM EDT Patient seen and examined with resident. I agree with the main component with the resident note including the HPI, ROS, Physical exam and assessment and plan. With the following changes: Keep normotensive. F/u on swallow study. * Anuj Zheng RN - 06/13/2025 9:49 PM EDT Images from the original note were not included. FOLLOW-UP: Post-Intensive Care Rounding Note Patient: Gianni Babin : 1955 Age: 70 y.o. Length of Stay: 9 days Admission Diagnosis: ICH (intracerebral hemorrhage) ([facility]) [I61.9] ST elevation [R94.31] Reviewing patient due to his recent transfer out from Intensive Care. Recorded vital signs are stable and the patient is not noted to be in any apparent distress. Telemetry and monitoring noted. Staff may call with any issues or concerns regarding his clinical presentation or stability. Thank you, Anuj Zheng RN Rapid Response: [facility] * Curt Vogt MD - 06/13/2025 1:43 PM EDT Images from the original note were not included. Nephrology Daily Progress Note SUBJECTIVE He is awake. Speech is garbled. He seems to be talking about work. VITAL SIGNS TREND: Vitals: 06/12/25 2144 06/13/25 0340 06/13/25 0500 06/13/25 0744 BP: 131/73 140/71 146/81 Pulse: 65 59 63 73 Resp: 19 18 18 Temp: 36.4 ??C (97.5 ??F) 36.4 ??C (97.5 ??F) (!) 35.6 ??C (96 ??F) TempSrc: Oral Oral Axillary SpO2: 95% 96% 95% 98% Weight: 101.2 kg (223 lb 1.7 oz) Height: INTAKE/OUTPUT: Intake/Output Summary (Last 24 hours) at 06/13/2025 1343 Last data filed at 06/13/2025 0749 Gross per 24 hour Intake 1052.19 ml Output 1730 ml Net -677.81 ml I/O this shift: In: - Out: 360 [Urine:360] WEIGHT: Last 3 Weight Readings 06/11/25 0445 06/12/25 0400 06/13/25 0500 Weight: 109.1 kg (240 lb 8.4 oz) 110.3 kg (243 lb 2.7 oz) 101.2 kg (223 lb 1.7 oz) PHYSICAL EXAM: Blood pressure 146/81, pulse 73, temperature (!) 35.6 ??C (96 ??F), temperature source Axillary, resp. rate 18, height 182.9 cm (6'), weight 101.2 kg (223 lb 1.7 oz), SpO2 98%. Temp: [35.6 ??C (96 ??F)-36.4 ??C (97.5 ??F)] 35.6 ??C (96 ??F) Pulse: [59-73] 73 Resp: [13-21] 18 BP: (93-158)/(40-108) 146/81 SpO2: [89 %-98 %] 98 % O2 Device: None (Room air) O2 Flow Rate (L/min): [0 L/min-3 L/min] 0 L/min General appearance: Continues to be encephalopathic, HEENT: no JVD, no lymphadenopathy. Heart exam: normal S1-S2 Lungs: clear to auscultation bilaterally Abdomen: soft, no tenderness, no guarding, positive bowel sounds Extremities: no edema Vascular: adequate pulses and no carotid bruits. Musculoskeletal: no joint tenderness or swelling. LABORATORY EVALUATION: Results from last 7 days Lab Units 06/13/25 0558 06/12/25 0424 06/11/25 0305 06/10/25 0252 06/09/25 0316 SODIUM mmol/L 146 144 140 147* 146 POTASSIUM mmol/L 4.7 4.6 4.3 3.9 3.9 CHLORIDE mmol/L 109 103 103 109 115* CO2 mmol/L 28 31 27 28 23 ANION GAP mmol/L 9 10 10 10 8 BUN mg/dL 36* 32* 26 22 20 CREATININE mg/dL 1.61* 1.62* 1.84* 1.63* 1.47* CALCIUM mg/dL 9.5 9.9 9.3 9.4 9.0 MAGNESIUM mg/dL 2.4 2.6 1.9 2.0 -- PHOSPHORUS mg/dL 3.5 4.6 4.8 4.7 -- CALCIUM, IONIZED mg/dL 5.1 5.1 4.5 5.0 -- Results from last 7 days Lab Units 06/13/25 0558 06/12/25 0424 06/11/25 0305 06/10/25 0252 06/09/25 0316 PROTEIN TOTAL g/dL 7.2 6.7 6.7 6.4 5.8* ALBUMIN g/dL 3.8 3.6 3.6 3.4 3.2 AST U/L 20 18 14 13 14 ALT U/L 16 14 7 11 6 BILIRUBIN, TOTAL mg/dL 0.6 0.5 0.4 0.5 0.5 ALK PHOS U/L 75 72 68 64 58 Results from last 7 days Lab Units 06/13/25 0558 06/12/2542306/11/2530406/10/2525106/09/25 0316 WBC x10E9/L 6.3 5.0 5.4 4.9 5.1 HEMOGLOBIN g/dL 14.4 13.9 13.3 13.1 12.8* HEMATOCRIT % 41.9 40.7 39.2 38.5* 37.2* PLATELETS X10E9/L 217 211 203 209 186 @RESUFAST(IRON,TIBC,FERRITIN,IRONSAT,FOLATE,[id number]))@ Results from last 7 days Lab Units 06/13/25 1251 06/13/25 0814 06/13/25 0558 06/12/25 2149 06/12/25 1714 BEDSIDE GLUCOSE mg/dL 211* 184* -- 187* 205* GLUCOSE mg/dL -- -- 172* -- -- Results from last 7 days Lab Units 06/08/25 0249 CPK ISOENZYMES U/L 123 Results from last 7 days Lab Units 06/12/25 0424 06/11/25 0305 06/10/25 0252 06/07/25 0407 BNP pg/mL 101* 314* 291* 163* CURRENT MEDICATIONS: [START ON 06/14/2025] amLODIPine, 10 mg, oral, Daily carvediloL, 25 mg, oral, BID heparin (porcine), 5,000 Units, subcutaneous, Q8H CATRINA hydrALAZINE, 25 mg, oral, Q8H CATRINA insulin glargine, 10 Units, subcutaneous, Daily insulin lispro, 1-5 Units, subcutaneous, With meals and nightly insulin lispro, 1-5 Units, subcutaneous, With meals and nightly [START ON 06/14/2025] lisinopriL, 40 mg, oral, Daily [START ON 06/14/2025] magnesium oxide, 400 mg, oral, Daily [START ON 06/14/2025] potassium chloride, 20 mEq, oral, Daily 1. PROBLEM LIST: Chronic kidney disease stage IIIA: CT scan of abdomen pelvis with contrast on 06/04/2025 showed cortical scarring with significant caliectasis and hydronephrosis right ureter is dilated down to the urinary bladder. Cortical scarring. Left kidney significant hydronephrosis and caliectasis no discrete cortical scarring. Renal ultrasound showed right hydronephrosis and mild left hydronephrosis. Urine protein to creatinine ratio is 1 g/g. Hepatitis panel and HIV are negative C3 is normal. C4 is on the high side which is 53. Rheumatoid factor is normal. Cuwd-zbnvsb-qtcfrxau DNA is negative. LUIZA isnegative. Glomerular basement membrane antibodies are negative. SPEP is pending. Anca was negative. 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 IMPRESSION: 1. Chronic kidney disease stage IIIA: Creatinine down to 1.62 mg/dL. 2. Bilateral hydronephrosis with cortical scarring of both kidneys. Status post Mayo catheter placement The renal ultrasound on June 07 2025 showed mild right hydronephrosis mild left hydronephrosis decreased from CT scan performed 3 days prior. However significant dilatation of both extrarenal pelvises remains. Await further input from our Urology colleagues 3. 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 Neurology is following. Note recommendation to resume anticoagulation (Eliquis) 4 weeks after event. 4. Hypertensive emergency: Blood pressure continues to fluctuate likely related to agitation. Recent blood pressure is better 146/81, 131/73. Now on lisinopril 40 mg daily, hydralazine 25 mg q.8 hours, Norvasc 10 mg daily, Coreg 25 mg b.i.d. 5. Volume status: The patient had 1.1 L of intake and 1.9 L of urine output yesterday. 6. Hypernatremia: sodium back up to 146 mEq per L since the discontinuation of free water. The patient on his on a non liquid diet in his at high-risk for persistent hypernatremia. 7. Type 2 diabetes mellitus: Being managed by the endocrinology service 8. Pyuria: Urinalysis June 07, 2025 showed 300 mg/dL protein trace leukocyte esterase large amount of blood there were was greater than 720 red blood cells but 0 white blood cells per high-power field. Nitrite was negative. He completed course of ceftriaxone 10. Dysphagia: He is now on level 4 pureed diet no liquids. Swallow studies to be repeated. PLAN: 1. IV fluids revised 2. Monitor serial sodium levels. Curt Vogt MD PhD FACP For questions please call: Answering Service at [phone] Or Office at [phone] This note was created with the assistance of a speech-recognition program. Although the intention is to generate a document that actually reflects the content of the visit, no guarantees can be provided that every mistake has been identified and corrected by editing. * Lux Anglin MD - 06/13/2025 11:27 AM EDT Images from the original note were not included. [facility] Endocrinology [place] [facility] [address] [place] [address] Service Pager: Reinier Patel MD, Interim Chief MD Henry Mulligan MD Margo Joubran, PA-C Alexandrea Vizzaccaro, PA-C Austin Howard, PA-C Manali Pragani, MD, Fellow Herbie Zhao MD, Fellow Ricarod Real MD, Fellow Katrin Jules MD, Fellow NO NEED to PAGE for NEW CONSULTS Secure Giving Assistant chat to Academic Endocrinology Page for immediate attention. Diabetes Management Service Progress Note Patient : Gianni Babin; 70 y.o. Location: A830/01 Admit Date: 06/04/2025 Hospital Day: Hospital Day: 10 Reason for Consult: Diabetes management Assessment/Plan Blood Glucose Monitoring Results, Interpretation Results from last 7 days Lab Units 06/13/25 1251 06/13/25 0814 06/13/25 0558 06/12/25 2149 06/12/25 1714 06/12/25 1057 06/12/25 0909 06/12/25 0627 BEDSIDE GLUCOSE mg/dL 211* 184* -- 187* 205* 115* 117* 145* GLUCOSE mg/dL -- -- 172* -- -- -- -- -- Results/Impression/Conclusion: [] Basal/Bolus insulin imbalance with significant glycemic variability: consider adjusting basal insulin-bolus insulin ratio close to 50%-50% of TDD (total daily insulin) [] Overnight blood glucose reduction: consider decreasing basal insulin (Lantus) or bedtime correctional insulin (Humalog) [] Fasting hypoglycemia: consider decreasing basal insulin (Lantus) or bedtime correctional insulin(Humalog) [] Postprandial hypoglyemia: consider decreasing prandial or meal insulin (Humalog) after [] breakfast [] lunch [] evening meal [] nighttime snack [] Hypoglycemia due to over-correction [] Fasting hyperglycemia: consider increasing basal insulin (Lantus) [] Postprandial hyperglycemia: consider increasing prandial or meal insulin (Humalog) after [] breakfast [] lunch [] evening meal [] nighttime snack [x] Hyperglycemia due to tube feeds Generally, change insulin by 10 to 30 % depending on the severity of glycemic excursions. For noncritically ill individuals (those not in the ICU), a glycemic goal of 100-180 mg/dL (premeal<140 mg/dL) is recommended. For most critically ill individuals (those in the ICU), a glycemic goal of 140- 180 mg/dL is recommended. For selected individuals (e.g., those undergoing cardiac surgery), more stringent glycemic goals (110-140 mg/dL) may be appropriate. Blood glucoses above 200 mg/dl are [facility] monitored performance measures. ASSESSMENT and PLAN: Gianni Babin has diabetes mellitus type 2 complicated by cardiovascular disease. Admitted with Intracerebral hemorrhage. 1. Hypoglycemia due to the tube feed at the goal 65 mL /hr .tube feeding has been discontinued on 06/12/25 since patient is able to eat meals completely. 2. DM Type 2 with hyperglycemia Last HbA1c: Lab Results Component Value Date HGBA1C 8.3 (H) 06/07/2025 Results from last 7 days Lab Units 06/13/25 0558 CREATININE mg/dL 1.61* EGFR (CKD-EPI) NON-RACE DEPENDENT ml/min/1.73sq.m 46* [x] Unstable-Improving but further adjustment needed as below [] Unstable-Worse and significant adjustment needed as below [] Stable and no changes are mentioned below. The following changes were made: Basal insulin: Glargine (or Lantus) : _10_units, [] daily AM [x] daily at bedtime [] BID (9 AM, 9 PM) Prandial or meal insulin: Lispro (or Humalog) [x] by insulin to carb ratio = _1: 15 grams of carbohydrate in a meal AC [] _ _ units every 4 hours for continuous tube feeding (Provide ~30% of TDI as basal insulin) Correctional insulin: Lispro (or Humalog): [x] 1-5 AC (above 150), 1-4 HS (above 200) [] 2-10 AC (above 150), 2-8 HS (above 200) [] 3-15 AC (above 150), 3-12 HS (above 200) For while NPO or tube feeding or TPN [] 1-5 q4h (above 180) [] 2-10 q4h (above 180) [] 3-15 q4h (above 180) Thank you for consulting our Diabetes Management Team (Endocrinology). We will continue to follow up. Subjective Chief Complaint Patient presents with Fall On the visited the patient I was informed by the nurse that the patient is sent for ultrasound. On re visit patient was accompanied by daughter in the room . He is not well oriented to time place andperson, he did not pass the swallow study but is able yo eat meals without any choking vomiting , his abdomen looks distended and he is constipated from 5 days. History: Gianni Babin is a 70-year-old male known case of hypertension, hyperlipidemia, DM type 2 admitted with a complaint of fall and had an intracranial hemorrhage found to be at the site of the right thalamic area and ventricular extension of the bleed. The patient was consulted for the diabetic management, he did not follow any electrical parts reconditioner in thecompliance with the metformin is questionable. No use of insulin previously. A1c is 8.3 on June 07, 2025. Diabetes History:* history provided by patient's Duration of Diabetes: Diagnosed- 2018 Complications of Diabetes: Retinopathy: No Nephropathy: No Peripheral neuropathy: No Autonomic neuropathy: No Cardiovascular disease: No Cerebrovascular disease: Yes Peripheral arterial disease: No Home regimen: Diabetes medications: metformin 1000 mg b.I.d. Home blood glucose monitoring: no Hypoglycemia frequency: unsure Hypoglycemic awareness: unsure Family History: Family history of diabetes: unsure Steroids / Other Glycemia-Affecting Medications: [No] Inpatient diet/nutrition: Dietary Orders (From admission, onward) Adult diet Level 4 Pureed diet; No fluids on tray Medical History ROS/Subjective/Interval history: Food intake: [x] Good [] Decreased [] Poor [] NPO Symptom Yes No Comment Hypoglycemia [] [x] When: Decreased appetite [] [x] Nausea [] [x] Vomiting [] [x] Abdominal discomfort/pain [] [x] Review of Systems HENT: Negative for drooling and mouth sores. Gastrointestinal: Positive for abdominal distention. Negative for nausea and vomiting. Skin: Negative for color change. Neurological: Positive for speech difficulty and weakness. Psychiatric/Behavioral: Positive for confusion and sleep disturbance. Objective Physical Exam: BP 146/81 Pulse 73 Temp (!) 35.6 ??C (96 ??F) (Axillary) Resp 18 Ht 182.9 cm (6') Wt 101.2 kg (223 lb 1.7 oz) SpO2 98% BMI 30.26 kg/m?? Physical Exam HENT: Head: Atraumatic. Nose: Nose normal. Mouth/Throat: Mouth: Mucous membranes are moist. Cardiovascular: Rate and Rhythm: Normal rate and regular rhythm. Pulses: Normal pulses. Heart sounds: Normal heart sounds. Abdominal: General: There is no distension. Palpations: Abdomen is soft. Musculoskeletal: Cervical back: Normal range of motion. Neurological: Coordination: Coordination abnormal. Not oriented to time and place Intake/Output: Intake/Output Summary (Last 24 hours) at 06/13/2025 1414 Last data filed at 06/13/2025 0749 Gross per 24 hour Intake 1052.19 ml Output 1455 ml Net -402.81 ml Steroids / Other Glycemia-Affecting Medications: [No] Diet/Nutrition: Dietary Orders (From admission, onward) Start Ordered 06/13/25 0835 Adult diet Level 4 Pureed diet; No fluids on tray Diet effective now Comments: Meds in puree, small bites Question Answer Comment Diet Type: Level 4 Pureed diet Additional Liquid/Fluid Modifiers: No fluids on tray 06/13/25 0834 Recent Labs: Results from last 7 days Lab Units 06/13/2555706/12/2542306/11/2530406/10/2525106/09/25 0316 WBC x10E9/L 6.3 5.0 5.4 4.9 5.1 HEMOGLOBIN g/dL 14.4 13.9 13.3 13.1 12.8* HEMATOCRIT % 41.9 40.7 39.2 38.5* 37.2* PLATELETS X10E9/L 217 211 203 209 186 Results from last 7 days Lab Units 06/13/2555706/12/2542306/11/2530406/10/2525106/09/25 0316 SODIUM mmol/L 146 144 140 147* 146 POTASSIUM mmol/L 4.7 4.6 4.3 3.9 3.9 CHLORIDE mmol/L 109 103 103 109 115* CO2 mmol/L 28 31 27 28 23 BUN mg/dL 36* 32* 26 22 20 CREATININE mg/dL 1.61* 1.62* 1.84* 1.63* 1.47* EGFR (CKD-EPI) NON-RACE DEPENDENT ml/min/1.73sq.m 46* 46* 39* 46* 52* CALCIUM mg/dL 9.5 9.9 9.3 9.4 9.0 Results from last 7 days Lab Units 06/13/2555706/12/2542306/11/2530406/10/2525106/09/25 0316 ALBUMIN g/dL 3.8 3.6 3.6 3.4 3.2 Last HbA1c: Lab Results Component Value Date HGBA1C 8.3 (H) 06/07/2025 Lux Garcia MD Pgy 1 Internal Medicine [facility] Cosigned by Henry Godwin MD at 06/13/2025 9:58 PM EDT Associated attestation - Henry Godwin MD - 06/13/2025 9:58 PM EDT I have discussed the patient's history, exam findings and reviewed pertinent studies with Dr. Anglin. I personally evaluated this patient on the day of the encounter, performed dill portion(s) of the service, participated in the management and agree with overall evaluation plan as delineated above. I have the following additional comments: 70 year old male with T2DM admitted for ICH - We have updated inpatient glucose lowering regimen as follows: Glargine 10 units daily + lispro CR 15 + STUART We will continue to monitor blood glucose trends and adjust glucose lowering regimen as appropriate, while patient is in the hospital eHnry Godwin MD 06/13/25 * Christiano Viera RN - 06/13/2025 9:08 AM EDT Images from the original note were not included. FOLLOW-UP: Post-Intensive Care Rounding Note Patient: Gianni Babin : 1955 Age: 70 y.o. Length of Stay: 9 days Admission Diagnosis: ICH (intracerebral hemorrhage) ([facility]) [I61.9] ST elevation [R94.31] Reviewing patient due to his recent transfer out from Intensive Care. Recorded vital signs are stable and the patient is not noted to be in any apparent distress. Telemetry and monitoring noted. Staff may call with any issues or concerns regarding his clinical presentation or stability. Thank you, Christiano Viera RN Rapid Response: [facility] * Alphonse Cuenca MD - 06/13/2025 8:56 AM EDT Neurovascular / Interventional neurology Intraparenchymal Hemorrhage Progress Note Date of admission 06/04/2025 5:25 PM PCP: SIENNA BARRIENTOS Reason of admission: IPH Deficit: AMS Last known well: Unclear, some time on 06/03/25 Patient seen at: ED Initial NIHSS: 9 Premorbid mRS: 0 Initial imaging: R Thalamic IPH with IVH ICH Score: 2 Initial BP reported: 134/83 Interval: Patient was seen and examined at bedside this morning. Vitals stable, no acute events reported overnight. Nephrology on board for managing patient's CKD and hypertension. Subjective: Gianni Babin is a 70 y.o. male who initially presented to an outside hospital and thereafter was transferred to [facility] via air. Past medical history significant for hypertension, DM, HLD,Obesity, DM2, recent DVT on Eliquis. Per chart review, the patient was initially taken to an outside hospital ED by EMS for evaluation of altered mental status. The patient was not aware of where he was, what year it was or who the president was. Imaging studies were done at the outside hospital including CT brain which showed 2.3 cm right thalamic hemorrhage with intraventricular extension. He was on Eliquis due to recent DVT and started on Eliquis. In the ED Kcentra was given for reversal of Eliquis. He was also given Keppra 2g at the outside hospital and started on Cardene infusion. The patient was accepted by the trauma service and transferred to [facility]. Upon arrival to [facility] ED, vascular neurology consulted. Upon my evaluation the patient is currently on room air. He appears to be confused, answering questions but incorrectly. He is able to follow commands intermittently. The patient has stable blood pressure, currently 119/80. According to the family he had an episode of fall 3 days back. However, themain onset of confusion was this morning. Past medical history: DVT on Eliquis, HTN, HLD, Obesity, DM2 Home medications: Eliquis, Aspirin, Lipitor, Lisinopril, Metformin Social history: Daily alcohol drinker, chronic smoking Home medications: Medications Prior to Admission Medication Sig Dispense Refill Last Dose/Taking aspirin 81 mg Take 1 tablet (81 mg total) by mouth in the morning. Taking atorvastatin (LIPITOR) 20 mg tablet Take 1 tablet (20 mg total) by mouth every morning. TAKE 1 TABLET (20 MG) BY MOUTH IN THE MORNING Taking ELIQUIS 5 mg tablet Take 1 tablet (5 mg total) by mouth in the morning and 1 tablet (5 mg total) before bedtime. Taking fenofibrate (LOFIBRA) 160 mg tablet Take 1 tablet (160 mg total) by mouth in the morning. Taking lisinopriL (PRINIVIL,ZESTRIL) 40 mg tablet Take 1 tablet (40 mg total) by mouth in the morning. Taking magnesium aspart,citrate,oxide (TRIPLE MAGNESIUM COMPLEX) 400 mg magnesium capsule Take 400 mg by mouth in the morning. Taking metFORMIN (GLUCOPHAGE) 1000 mg tablet Take 1 tablet (1,000 mg total) by mouth in the morning and 1 tablet (1,000 mg total) in the evening. Take with meals. Taking ACCU-CHEK GUIDE ME GLUCOSE MTR misc USE DAILY OR DIRECTED FOR MONITORING OF DIABETES. ACCU-CHEK GUIDE TEST STRIPS strip USE DAILY ACCU-CHEK SOFTCLIX LANCETS lancets USE TO TEST DAILY Past medical history: Past Medical History: Diagnosis Date Diabetes mellitus type 2, controlled ([facility]) DVT (deep venous thrombosis) ([facility]) GERD (gastroesophageal reflux disease) Hyperlipidemia Hypertension ICH (intracerebral hemorrhage) ([facility]) 06/04/2025 Osteoarthritis Past surgical history: Past Surgical History: Procedure Laterality Date TONSILLECTOMY TOTAL HIP ARTHROPLASTY 06/2010 Family history: Hefamily history includes Heart attack in his father; Leukemia in his mother; Lymphoma in his mother; Pancreatic cancer in his father. Allergies: Hehas no known allergies. Social history: Social History Socioeconomic History Marital status: Spouse name: Not on file Number of children: Not on file Years of education: Not on file Highest education level: Not on file Occupational History Not on file Tobacco Use Smoking status: Every Day Current packs/day: 1.00 Average packs/day: 1 pack/day for 52.8 years (52.8 ttl pk-yrs) Types: Cigarettes Start date: 1972 Smokeless tobacco: Never Substance and Sexual Activity Alcohol use: Yes Drug use: Never Sexual activity: Not on file Other Topics Concern Not on file Social History Narrative Not on file Social Drivers of Health Financial Resource Strain: Not on file Food Insecurity: No Food Insecurity (06/11/2025) Hunger Screening Food Insecurity - Worry: Never True Food Insecurity - Inability: Never True Transportation Needs: No Transportation Needs (06/05/2025) PRAPARE - Transportation Lack of Transportation (Medical): No Lack of Transportation (Non-Medical): No Physical Activity: Not on file Stress: Not on file Social Connections: Not on file Interpersonal Safety: Patient Unable To Answer (06/05/2025) Humiliation, Afraid, Rape, and Kick questionnaire Fear of Current or Ex-Partner: Patient unable to answer Emotionally Abused: Patient unable to answer Physically Abused: Patient unable to answer Sexually Abused: Patient unable to answer Housing Instability: Low Risk (06/05/2025) Housing Instability Housing Instability: No Physical exam: Vital Signs: Blood pressure 146/81, pulse 73, temperature (!) 35.6 ??C (96 ??F), temperature sourceAxillary, resp. rate 18, height 182.9 cm (6'), weight 101.2 kg (223 lb 1.7 oz), SpO2 98%. Respiratory Source: O2 Device: None (Room air) Admission Weight: Weight: 117.3 kg (258 lb 9.6 oz) NIHSS: 1a Level of consciousness: 1=not alert but arousable by minor stimulation to obey, answer or respond 1b. LOC questions: 0=Performs both tasks correctly 1c. LOC commands: 0=Performs both tasks correctly 2. Best Gaze: 0=normal 3. Visual: 1=Partial hemianopia 4. Facial Palsy: 0=Normal symmetric movement 5a. Motor left arm: 0=No drift, limb holds 90 (or 45) degrees for full 10 seconds 5b. Motor right arm: 0=No drift, limb holds 90 (or 45) degrees for full 10 seconds 6a. motor left le=No drift, limb holds 90 (or 45) degrees for full 10 seconds 6b Motor right le=No drift, limb holds 90 (or 45) degrees for full 10 seconds 7. Limb Ataxia: 0=Absent 8. Sensory: 0=Normal; no sensory loss 9. Best Language: 1=Mild to moderate aphasia; some obvious loss of fluency or facility of comprehension without significant limitation on ideas expressed or form of expression. 10. Dysarthria: 1=Mild to moderate, patient slurs at least some words and at worst, can be understood with some difficulty 11. Extinction and Inattention: 0=No abnormality Total: 4 Labs/Imaging: Objective Lab work/Imaging: Lab Results Component Value Date HGBA1C 8.3 (H) 06/07/2025 CALCIUM 9.5 06/13/2025 K 4.7 06/13/2025 CO2 28 06/13/2025 BUN 36 (H) 06/13/2025 CREATININE 1.61 (H) 06/13/2025 Lab Results Component Value Date WBC 6.3 06/13/2025 HGB 14.4 06/13/2025 MCV 93 06/13/2025 PLT 217 06/13/2025 Lab Results Component Value Date INR 1.5 (H) 06/04/2025 No results found for: LDL , CHOLESTEROLT Imaging: No results found. Assessment: 70 years old male with past medical history of hypertension, hyperlipidemia, diabetes, obesity, recent DVT (on Eliquis) who had an episode of fall 3 days ago. Later on, the patient had an acute onsetof confusion in the morning and was taken to an outside hospital. CT head showed intraparenchymal hemorrhage and therefore the patient was transferred to [facility] for further workup. On examination, the patient was confused but no significant motor deficits at that time. They were admitted to the ICU for workup. MRI brain on 06/07: redemonstrated right thalamic hematoma with intraventricular extension Impression: R IPH with intra-ventricular extension, likely 2/2 HTN (ICH score 2) Plan: - Continue care on the intermediate floor with stroke service. - Will communicate with nephrology regarding hypotonic fluids, considering patient's IPH, will recommend not being too aggressive at this time. - Weekly duplex of LE to monitor. - VFSS done, no liquids. - Fluctuating blood glucose levels after feeds, endocrinology on board, appreciate recommendations and management. - Nephrology on board for blood pressure medication adjustments. Currently on coreg, amlodipine, lasix, lisinopril. - Antithrombotic plans: Plans to resume home Eliquis 4 weeks after the event. - UA positive for LE, completed course of ceftriaxone. - Considering patient is chronic alcoholic and slow in communication, continue thiamine 500mg TID. - vEEG discontinued on 06/06. Levetiracetam levels therapeutic. - Consulted nephrology and Urology for BALJIT on CKD in the setting of bilateral hydronephrosis, appreciate recommendations and management. - Consulted vascular surgery for DVT management, recommended DVT prophylaxis. - NG tube was placed on 06/06 - Currently on Keppra due to provoked seizure at the outside hospital. Complete a 7 day course. - Target SBP 130-150. PRN Hydralazine and labetalol - Will need outpatient evaluation for SOFIA. - Code status: Full - Dispo: TBD - DVT px: Heparin 5000U TID Staffed with: Dr. Josué Cuenca MD PGY-3 Neurology Resident 06/13/25 11:44 AM Cosigned by Yani Moses MD at 06/13/2025 11:57 AM EDT Associated attestation - Yani Moses MD - 06/13/2025 11:57 AM EDT Patient seen and examined with resident. I agree with the main component with the resident note including the HPI, ROS, Physical exam and assessment and plan. With the following changes: Keep normotensive. F/u nephrology recs. * Pietro Dela Cruz PA-C - 06/12/2025 2:41 PM EDT Images from the original note were not included. [facility] Endocrinology [place] [facility] [address] [place] [address] Service Pager: Reinier Patel MD, Interim Chief MD Henry Mulligan MD Margo Joubran, PA-C Alexandrea Vizzaccaro, CASSANDRA Marmolejo MD, Fellow Herbie Zhao MD, Fellow Ricardo Real MD, Fellow Katrin Jules MD, Fellow NO NEED to PAGE for NEW CONSULTS Secure Giving Assistant chat to Academic Endocrinology Page for immediate attention. Diabetes Management Service progress Note Patient : Gianni Babin; 70 y.o. Location: [id number] Admit Date: 06/04/2025 Hospital Day: Hospital Day: 9 Reason for Consult: Diabetes management Assessment/Plan Blood Glucose Monitoring Results, Interpretation Results from last 7 days Lab Units 06/12/25 1057 06/12/25 0909 06/12/25 0627 06/12/25 0424 06/12/25 0418 06/11/25 2329 06/11/25 1938 06/11/25 1514 BEDSIDE GLUCOSE mg/dL 115* 117* 145* -- 204* 194* 261* 330* GLUCOSE mg/dL -- -- -- 191* -- -- -- -- Results/Impression/Conclusion: [] Basal/Bolus insulin imbalance with significant glycemic variability: consider adjusting basal insulin-bolus insulin ratio close to 50%-50% of TDD (total daily insulin) [] Overnight blood glucose reduction: consider decreasing basal insulin (Lantus) or bedtime correctional insulin (Humalog) [] Fasting hypoglycemia: consider decreasing basal insulin (Lantus) or bedtime correctional insulin(Humalog) [] Postprandial hypoglyemia: consider decreasing prandial or meal insulin (Humalog) after [] breakfast [] lunch [] evening meal [] nighttime snack [] Hypoglycemia due to over-correction [] Fasting hyperglycemia: consider increasing basal insulin (Lantus) [] Postprandial hyperglycemia: consider increasing prandial or meal insulin (Humalog) after [] breakfast [] lunch [] evening meal [] nighttime snack [x] Hyperglycemia due to tube feeds Generally, change insulin by 10 to 30 % depending on the severity of glycemic excursions. For noncritically ill individuals (those not in the ICU), a glycemic goal of 100-180 mg/dL (premeal<140 mg/dL) is recommended. For most critically ill individuals (those in the ICU), a glycemic goal of 140- 180 mg/dL is recommended. For selected individuals (e.g., those undergoing cardiac surgery), more stringent glycemic goals (110-140 mg/dL) may be appropriate. Blood glucoses above 200 mg/dl are [facility] monitored performance measures. ASSESSMENT and PLAN: [x] Lab results below were reviewed Gianni Liam Haubert has diabetes mellitus type 2 complicated by cardiovascular disease. Admitted with intracerebral hemorrhage. 1. Hyperglycemia due to tube feeds - at goal 65 ml/h -dCD 06/12/25 2. DM Type 2 with hyperglycemia Last HbA1c: Lab Results Component Value Date HGBA1C 8.3 (H) 06/07/2025 Results from last 7 days Lab Units 06/12/25 0424 CREATININE mg/dL 1.62* EGFR (CKD-EPI) NON-RACE DEPENDENT ml/min/1.73sq.m 46* The following changes were made: Basal insulin: Glargine (or Lantus) : __units, [] daily AM [] daily at bedtime [] BID (9 AM, 9 PM) Prandial or meal insulin: Lispro (or Humalog) [] by insulin to carb ratio = __ units: 15 grams of carbohydrate in a meal AC _ _ units every 4 hours for continuous tube feeding (Provide ~30% of TDI as basal insulin) Correctional insulin: Lispro (or Humalog): [] 1-5 AC (above 150), 1-4 HS (above 200) [x] 2-10 AC (above 150), 2-8 HS (above 200) [] 3-15 AC (above 150), 3-12 HS (above 200) For while NPO or tube feeding or TPN [] 1-5 q4h (above 180) [] 2-10 q4h (above 180) [] 3-15 q4h (above 180 Thank you for consulting our Diabetes Management Team (Endocrinology). We will continue to follow up. Subjective History of Present Illness: Gianni Babin is a 70 y.o. male with HLD, HTN, diabetes mellitus type 2 who was admitted with intracerebral hemorrhage. HPI provided by patient's / Chart review. Consult for diabetes management. Denies seeing endocrinology for outpatient management previously. Unsure of compliance to metformin. Denies prior insulin use, glp1, or additional p.o. antihyperglycemics. A1c 8.3% 06/07/2025 Diabetes History:* history provided by patient's Duration of Diabetes: Diagnosed- 2018 Complications of Diabetes: Retinopathy: No Nephropathy: No Peripheral neuropathy: No Autonomic neuropathy: No Cardiovascular disease: No Cerebrovascular disease: Yes Peripheral arterial disease: No Home regimen: Diabetes medications: metformin 1000 mg b.I.d. Home blood glucose monitoring: no Hypoglycemia frequency: unsure Hypoglycemic awareness: unsure Family History: Family history of diabetes: unsure Steroids / Other Glycemia-Affecting Medications: [No] Inpatient diet/nutrition: Dietary Orders (From admission, onward) Start Ordered 06/12/25 1036 Adult diet NO liquids; Level 4 Pureed diet; No fluids on tray Diet effective now Comments: Meds in puree, small bites Question Answer Comment Nursing Instructions: NO liquids Diet Type: Level 4 Pureed diet Additional Liquid/Fluid Modifiers: No fluids on tray 06/12/25 1036 Past Medical History: Diagnosis Date Diabetes mellitus type 2, controlled ([facility]) DVT (deep venous thrombosis) ([facility]) GERD (gastroesophageal reflux disease) Hyperlipidemia Hypertension ICH (intracerebral hemorrhage) ([facility]) 06/04/2025 Osteoarthritis Past Surgical History: Procedure Laterality Date TONSILLECTOMY TOTAL HIP ARTHROPLASTY 06/2010 Prior to Admission medications Medication Sig Start Date End Date Taking? Authorizing Provider aspirin 81 mg Take 1 tablet (81 mg total) by mouth in the morning. Yes Not In System Ref Prov atorvastatin (LIPITOR) 20 mg tablet Take 1 tablet (20 mg total) by mouth every morning. TAKE 1 TABLET (20 MG) BY MOUTH IN THE MORNING 05/15/25 Yes Not In System Ref Prov ELIQUIS 5 mg tablet Take 1 tablet (5 mg total) by mouth in the morning and 1 tablet (5 mg total) before bedtime. Yes Not In System Ref Prov fenofibrate (LOFIBRA) 160 mg tablet Take 1 tablet (160 mg total) by mouth in the morning. 05/15/25 Yes Not In System Ref Prov lisinopriL (PRINIVIL,ZESTRIL) 40 mg tablet Take 1 tablet (40 mg total) by mouth in the morning. 05/15/25 02/09/26 Yes Not In System Ref Prov magnesium aspart,citrate,oxide (TRIPLE MAGNESIUM COMPLEX) 400 mg magnesium capsule Take 400 mg by mouth in the morning. Yes Not In System Ref Prov metFORMIN (GLUCOPHAGE) 1000 mg tablet Take 1 tablet (1,000 mg total) by mouth in the morning and 1 tablet (1,000 mg total) in the evening. Take with meals. 05/15/25 05/10/26 Yes Not In System Ref Prov ACCU-CHEK GUIDE ME GLUCOSE MTR misc USE DAILY OR DIRECTED FOR MONITORING OF DIABETES. 05/15/25 Not In System Ref Prov ACCU-CHEK GUIDE TEST STRIPS strip USE DAILY 05/15/25 Not In System Ref Prov ACCU-CHEK SOFTCLIX LANCETS lancets USE TO TEST DAILY 05/15/25 Not In System Ref Prov Current Facility-Administered Medications: amLODIPine (NORVASC) tablet 10 mg, 10 mg, g-tube, Daily, Adan Plasencia MD, 10 mg at 06/12/25 1043 barium sulfate (E-Z-HD) 98 % suspension 340 g, 340 g, oral, Once in imaging, Patricia Mcclellan MD barium sulfate (VARIBAR HONEY) 40 % (w/v) 29% (w/w) suspension 60 mL, 60 mL, oral, Once in imaging,Patricia Mcclellan MD barium sulfate (VARIBAR PUDDING) 40 % (w/v), 30% (w/w) oral paste 60 mL, 60 mL, oral, Once in imaging, Patricia Mcclellan MD calcium gluconate 3,000 mg in sodium chloride 0.9 % 100 mL IVPB, 3,000 mg, intravenous, PRN, Adan Reyna MD calcium gluconate 4,000 mg in sodium chloride 0.9 % 250 mL IVPB, 4,000 mg, intravenous, PRN, Adan Reyna MD calcium gluconate IVPB 2000 mg/100 mL (20 mg/mL premix), 2,000 mg, intravenous, PRN, Adan Plasencia MD carvediloL (COREG) tablet 25 mg, 25 mg, g-tube, BID, Adan Plasencia MD, 25 mg at 06/12/25 1043 dextrose (GLUTOSE) 40 % gel 15 g, 15 g, oral, PRN, Alphonse Cuenca MD dextrose 5 % (D5W) infusion, 100 mL/hr, intravenous, Continuous PRN, Alphonse Cuenca MD dextrose 50 % in water (D50W) 50% solution 25 mL, 25 mL, intravenous, PRN, Alphonse Cuenca MD glucagon HCL injection 1 mg, 1 mg, intramuscular, PRN, Alphonse Cuenca MD heparin (porcine) injection 5,000 Units, 5,000 Units, subcutaneous, Q8H CATR[place], Alphonse Cuenca MD, 5,000 Units at 06/12/25 1438 hydrALAZINE (APRESOLINE) injection 10 mg, 10 mg, intravenous, Q4H PRN, Alphones Cuenca MD, 10 mg at 06/05/25 1430 hydrALAZINE (APRESOLINE) tablet 25 mg, 25 mg, g-tube, Q8H [facility], Adan Plasencia MD, 25 mg at 06/12/25 0619 insulin lispro (HumaLOG) injection 2-10 Units, 2-10 Units, subcutaneous, TID with meals, Pietro Dela Cruz PA-C insulin lispro (HumaLOG) injection 2-8 Units, 2-8 Units, subcutaneous, Nightly, Pietro Dela Cruz PA-C labetaloL (NORMODYNE,TRANDATE) injection 10 mg, 10 mg, intravenous, Q5 Min PRN, Alphonse Cuenca MD, 10 mg at 06/10/25 1927 levETIRAcetam (KEPPRA) 750 mg in sodium chloride 0.9 % 107.5 mL IVPB, 750 mg, intravenous, Q12H, Alphonse Cuenca MD, Last Rate: 430 mL/hr at 06/12/25 1429, 750 mg at 06/12/25 1429 lisinopriL (PRINIVIL,ZESTRIL) tablet 40 mg, 40 mg, nasogastric, Daily, Adan Plasencia MD, 40 mg at 06/12/25 1043 magnesium oxide (MAGOX) tablet 400 mg, 400 mg, g-tube, Daily, Adan Plasencia MD, 400 mg at 06/12/25 1043 magnesium sulfate IVPB 2000 mg/50 mL in iso-osmotic water (40 mg/mL premix), 2,000 mg, intravenous,PRN, Stopped at 06/11/25 0643 OR magnesium sulfate IVPB 4000 mg/100 mL in iso-osmotic water (40mg/mL premix), 4,000 mg, intravenous, PRN, Alphonse Cuenca MD potassium chloride (K-TAB,KLOR-CON) CR tablet 20-60 mEq, 20-60 mEq, oral, PRN OR potassium chloride (KAYCIEL) 20 mEq/15 mL solution 20-60 mEq, 20-60 mEq, oral, PRN OR potassium chloride IVPB 10 mEq/100 mL in water (0.1 mEq/mL premix), 10 mEq, intravenous, PRN, Adan Plasencia MD potassium chloride (KAYCIEL) 20 mEq/15 mL solution 20 mEq, 20 mEq, g-tube, Daily, Adan Plasencia MD,20 mEq at 06/11/25 0837 sodium phosphate 20 mmol in sodium chloride 0.9 % 250 mL IVPB, 20 mmol, intravenous, PRN OR sodium phosphate 20 mmol in sodium chloride 0.9 % 100 mL IVPB, 20 mmol, intravenous, PRN OR sod phos di, mono-K phos mono (K-PHOS NEUTRAL) 250 mg tablet 2 tablet, 2 tablet, oral, PRN, Adan Plasencia MD sodium chloride 0.45 % infusion, 75 mL/hr, intravenous, Continuous, Curt Vogt MD, Last Rate: 75 mL/hr at 06/12/25 1428, 75 mL/hr at 06/12/25 1428 thiamine (B-1) 500 mg in sodium chloride 0.9 % 50 mL IVPB, 500 mg, intravenous, TID, Alphonse Cuenca MD, Stopped at 06/12/25 0655 No Known Allergies Social History Tobacco Use Smoking status: Every Day Current packs/day: 1.00 Average packs/day: 1 pack/day for 52.8 years (52.8 ttl pk-yrs) Types: Cigarettes Start date: 1972 Smokeless tobacco: Never Substance Use Topics Alcohol use: Yes Drug use: Never Review of Systems: Review of Systems Reason unable to perform ROS: ICH. Objective Physical Exam: BP 116/76 Pulse 66 Temp 36.6 ??C (97.9 ??F) (Oral) Resp 15 Ht 182.9 cm (6') Wt 110.3 kg (243 lb 2.7 oz) SpO2 90% BMI 32.98 kg/m?? Physical Exam Constitutional: Appearance: He is obese. He is ill-appearing. Pulmonary: Effort: Respiratory distress present. Abdominal: General: There is no distension. Palpations: Abdomen is soft. Tenderness: There is no abdominal tenderness. There is no guarding. Musculoskeletal: Right lower leg: No edema. Left lower leg: No edema. Intake/Output: Intake/Output Summary (Last 24 hours) at 06/12/2025 1441 Last data filed at 06/12/2025 1437 Gross per 24 hour Intake 1574.52 ml Output 2200 ml Net -625.48 ml Recent Labs: Results from last 7 days Lab Units 06/12/2542306/11/2530406/10/2525106/09/2531506/08/25 0249 WBC x10E9/L 5.0 5.4 4.9 5.1 5.8 HEMOGLOBIN g/dL 13.9 13.3 13.1 12.8* 13.3 HEMATOCRIT % 40.7 39.2 38.5* 37.2* 39.0 PLATELETS X10E9/L 211 203 209 186 189 Results from last 7 days Lab Units 06/12/2542306/11/2530406/10/2525106/09/2531506/08/25 0249 SODIUM mmol/L 144 140 147* 146 143 POTASSIUM mmol/L 4.6 4.3 3.9 3.9 3.6 CHLORIDE mmol/L 103 103 109 115* 111* CO2 mmol/L 31 27 28 23 25 BUN mg/dL 32* 26 22 20 18 CREATININE mg/dL 1.62* 1.84* 1.63* 1.47* 1.43* EGFR (CKD-EPI) NON-RACE DEPENDENT ml/min/1.73sq.m 46* 39* 46* 52* 53* CALCIUM mg/dL 9.9 9.3 9.4 9.0 9.0 Results from last 7 days Lab Units 06/12/2542306/11/2530406/10/2525106/09/2531506/08/25 0249 ALBUMIN g/dL 3.6 3.6 3.4 3.2 3.3 Last HbA1c: Lab Results Component Value Date HGBA1C 8.3 (H) 06/07/2025 Pietro Dela Cruz PA-C 06/12/25 1443 * Curt Vogt MD - 06/12/2025 1:40 PM EDT Images from the original note were not included. Nephrology Daily Progress Note SUBJECTIVE VITAL SIGNS TREND: Vitals: 06/12/25 0900 06/12/25 1000 06/12/25 1100 06/12/25 1200 BP: 116/78 146/76 127/83 116/76 Pulse: 64 66 67 66 Resp: 18 19 13 15 Temp: 36.6 ??C (97.9 ??F) TempSrc: Oral SpO2: 93% 91% 92% 90% Weight: Height: INTAKE/OUTPUT: Intake/Output Summary (Last 24 hours) at 06/12/2025 1340 Last data filed at 06/12/2025 1139 Gross per 24 hour Intake 1329.58 ml Output 2200 ml Net -870.42 ml I/O this shift: In: 114.6 [I.V.:47.2; IV Piggyback:67.4] Out: 375 [Urine:375] WEIGHT: Last 3 Weight Readings 06/10/25 0500 06/11/25 0445 06/12/25 0400 Weight: 111.4 kg (245 lb 9.5 oz) 109.1 kg (240 lb 8.4 oz) 110.3 kg (243 lb 2.7 oz) PHYSICAL EXAM: Blood pressure 116/76, pulse 66, temperature 36.6 ??C (97.9 ??F), temperature source Oral, resp. rate 15, height 182.9 cm (6'), weight 110.3 kg (243 lb 2.7 oz), SpO2 90%. Temp: [36.3 ??C (97.3 ??F)-36.6 ??C (97.9 ??F)] 36.6 ??C (97.9 ??F) Pulse: [56-71] 66 Resp: [13-25] 15 BP: (112-157)/(57-101) 116/76 SpO2: [90 %-99 %] 90 % O2 Device: Nasal cannula O2 Flow Rate (L/min): [3 L/min-5 L/min] 3 L/min General appearance: Continues to be encephalopathic, agitated in no apparent distress. HEENT: no JVD, no lymphadenopathy. Heart exam: normal S1-S2 Lungs: clear to auscultation bilaterally Abdomen: soft, no tenderness, no guarding, positive bowel sounds Extremities: no edema Vascular: adequate pulses and no carotid bruits. Musculoskeletal: no joint tenderness or swelling. LABORATORY EVALUATION: Results from last 7 days Lab Units 06/12/2542306/11/2530406/10/2525106/09/2531506/08/25 0249 SODIUM mmol/L 144 140 147* 146 143 POTASSIUM mmol/L 4.6 4.3 3.9 3.9 3.6 CHLORIDE mmol/L 103 103 109 115* 111* CO2 mmol/L 31 27 28 23 25 ANION GAP mmol/L 10 10 10 8 7 BUN mg/dL 32* 26 22 20 18 CREATININE mg/dL 1.62* 1.84* 1.63* 1.47* 1.43* CALCIUM mg/dL 9.9 9.3 9.4 9.0 9.0 MAGNESIUM mg/dL 2.6 1.9 2.0 -- -- PHOSPHORUS mg/dL 4.6 4.8 4.7 -- -- CALCIUM, IONIZED mg/dL 5.1 4.5 5.0 -- -- Results from last 7 days Lab Units 06/12/2542306/11/2530406/10/2525106/09/2531506/08/25 0249 PROTEIN TOTAL g/dL 6.7 6.7 6.4 5.8* 6.1 ALBUMIN g/dL 3.6 3.6 3.4 3.2 3.3 AST U/L 18 14 13 14 22 ALT U/L 14 7 11 6 8 BILIRUBIN, TOTAL mg/dL 0.5 0.4 0.5 0.5 0.6 ALK PHOS U/L 72 68 64 58 56 Results from last 7 days Lab Units 06/12/2542306/11/2530406/10/2525106/09/2531506/08/25 0249 WBC x10E9/L 5.0 5.4 4.9 5.1 5.8 HEMOGLOBIN g/dL 13.9 13.3 13.1 12.8* 13.3 HEMATOCRIT % 40.7 39.2 38.5* 37.2* 39.0 PLATELETS X10E9/L 211 203 209 186 189 @RESUFAST(IRON,TIBC,FERRITIN,IRONSAT,FOLATE,[id number]))@ Results from last 7 days Lab Units 06/12/25 1057 06/12/25 0909 06/12/25 0627 06/12/25 0424 06/12/25 0418 BEDSIDE GLUCOSE mg/dL 115* 117* 145* -- 204* GLUCOSE mg/dL -- -- -- 191* -- Results from last 7 days Lab Units 06/08/25 0249 CPK ISOENZYMES U/L 123 Results from last 7 days Lab Units 06/12/25 0424 06/11/25 0305 06/10/25 0252 06/07/25 0407 BNP pg/mL 101* 314* 291* 163* CURRENT MEDICATIONS: amLODIPine, 10 mg, g-tube, Daily carvediloL, 25 mg, g-tube, BID heparin (porcine), 5,000 Units, subcutaneous, Q8H CATRINA hydrALAZINE, 25 mg, g-tube, Q8H CATRINA insulin glargine, 10 Units, subcutaneous, Daily insulin lispro, 2-10 Units, subcutaneous, Q4H insulin lispro, 4 Units, subcutaneous, Q4H levETIRAcetam, 750 mg, intravenous, Q12H lisinopriL, 40 mg, nasogastric, Daily magnesium oxide, 400 mg, g-tube, Daily potassium chloride, 20 mEq, g-tube, Daily thiamine (B-1) 500 mg in sodium chloride 0.9 % 50 mL IVPB, 500 mg, intravenous, TID 1. PROBLEM LIST: Chronic kidney disease stage IIIA: CT scan of abdomen pelvis with contrast on 06/04/2025 showed cortical scarring with significant caliectasis and hydronephrosis right ureter is dilated down to the urinary bladder. Cortical scarring. Left kidney significant hydronephrosis and caliectasis no discrete cortical scarring. Renal ultrasound showed right hydronephrosis and mild left hydronephrosis. Urine protein to creatinine ratio is 1 g/g. Hepatitis panel and HIV are negative C3 is normal. C4 is on the high side which is 53. Rheumatoid factor is normal. Wohd-ipfcox-xnksyqnn DNA is negative. LUIZA isnegative. Glomerular basement membrane antibodies are negative. SPEP is pending. Anca was negative. 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 IMPRESSION: 1. Chronic kidney disease stage IIIA: Creatinine down to 1.62 mg/dL. 2. Bilateral hydronephrosis with cortical scarring of both kidneys. Status post Mayo catheter placement The renal ultrasound on June 07 2025 showed mild right hydronephrosis mild left hydronephrosis decreased from CT scan performed 3 days prior. However significant dilatation of both extrarenal pelvises remains. Await further input from our Urology colleagues 3. 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 Neurology is following. Note recommendation to resume anticoagulation (Eliquis) 4 weeks after event. 4. Hypertensive emergency: Blood pressure continues to fluctuate likely related to agitation. Recent blood pressure is better 133/78 136/70. Now on lisinopril 40 mg daily, hydralazine 25 mg q.8 hours, Norvasc 10 mg daily, Coreg 25 mg b.i.d. 5. Volume status: The patient had 1.5 L in and 2.7 L of urine output. 6. Hypernatremia: On free water per G-tube 300 mL 4 times daily. Sodium is satisfactory at 144 mEq per L. 7. Type 2 diabetes mellitus: Being managed by the endocrinology service 8. Pyuria: Urinalysis June 07, 2025 showed 300 mg/dL protein trace leukocyte esterase large amount of blood there were was greater than 720 red blood cells but 0 white blood cells per high-power field. Nitrite was negative. On ceftriaxone. 10. Dysphagia: He is now on level 4 pureed diet no liquids. PLAN: 1. Would like Urology opinion regarding persistent mild right hydronephrosis and mild left hydronephrosis on renal ultrasound June 07, 2025. 2. Continue free water 300 mL 4 time. 3. IV fluids revised. The patient is at risk for recrudescent hypernatremia now that his free waterhas been discontinued and that he is on a no liquid diet at this point Curt Vogt MD PhD FACP For questions please call: Answering Service at [phone] Or Office at [phone] This note was created with the assistance of a speech-recognition program. Although the intention is to generate a document that actually reflects the content of the visit, no guarantees can be provided that every mistake has been identified and corrected by editing. * Alphonse Cuenca MD - 06/12/2025 8:57 AM EDT Neurovascular / Interventional neurology Intraparenchymal Hemorrhage Progress Note Date of admission 06/04/2025 5:25 PM PCP: SIENNA BARRIENTOS Reason of admission: IPH Deficit: AMS Last known well: Unclear, some time on 06/03/25 Patient seen at: ED Initial NIHSS: 9 Premorbid mRS: 0 Initial imaging: R Thalamic IPH with IVH ICH Score: 2 Initial BP reported: 134/83 Interval: Patient was seen and examined at bedside this morning. Vitals stable, blood glucose is well controlled. White count stable. Currently on 5L via nasal cannula and able to move all 4 extremities antigravity. Overnight, patient pulled out their NG tube three times. Patient had video fluoroscopic swallow study done today. Subjective: Gianni Babin is a 70 y.o. male who initially presented to an outside hospital and thereafter was transferred to [facility] via air. Past medical history significant for hypertension, DM, HLD,Obesity, DM2, recent DVT on Eliquis. Per chart review, the patient was initially taken to an outside hospital ED by EMS for evaluation of altered mental status. The patient was not aware of where he was, what year it was or who the president was. Imaging studies were done at the outside hospital including CT brain which showed 2.3 cm right thalamic hemorrhage with intraventricular extension. He was on Eliquis due to recent DVT and started on Eliquis. In the ED Kcentra was given for reversal of Eliquis. He was also given Keppra 2g at the outside hospital and started on Cardene infusion. The patient was accepted by the trauma service and transferred to [facility]. Upon arrival to [facility] ED, vascular neurology consulted. Upon my evaluation the patient is currently on room air. He appears to be confused, answering questions but incorrectly. He is able to follow commands intermittently. The patient has stable blood pressure, currently 119/80. According to the family he had an episode of fall 3 days back. However, themain onset of confusion was this morning. Past medical history: DVT on Eliquis, HTN, HLD, Obesity, DM2 Home medications: Eliquis, Aspirin, Lipitor, Lisinopril, Metformin Social history: Daily alcohol drinker, chronic smoking Home medications: Medications Prior to Admission Medication Sig Dispense Refill Last Dose/Taking aspirin 81 mg Take 1 tablet (81 mg total) by mouth in the morning. Taking atorvastatin (LIPITOR) 20 mg tablet Take 1 tablet (20 mg total) by mouth every morning. TAKE 1 TABLET (20 MG) BY MOUTH IN THE MORNING Taking ELIQUIS 5 mg tablet Take 1 tablet (5 mg total) by mouth in the morning and 1 tablet (5 mg total) before bedtime. Taking fenofibrate (LOFIBRA) 160 mg tablet Take 1 tablet (160 mg total) by mouth in the morning. Taking lisinopriL (PRINIVIL,ZESTRIL) 40 mg tablet Take 1 tablet (40 mg total) by mouth in the morning. Taking magnesium aspart,citrate,oxide (TRIPLE MAGNESIUM COMPLEX) 400 mg magnesium capsule Take 400 mg by mouth in the morning. Taking metFORMIN (GLUCOPHAGE) 1000 mg tablet Take 1 tablet (1,000 mg total) by mouth in the morning and 1 tablet (1,000 mg total) in the evening. Take with meals. Taking ACCU-CHEK GUIDE ME GLUCOSE MTR misc USE DAILY OR DIRECTED FOR MONITORING OF DIABETES. ACCU-CHEK GUIDE TEST STRIPS strip USE DAILY ACCU-CHEK SOFTCLIX LANCETS lancets USE TO TEST DAILY Past medical history: Past Medical History: Diagnosis Date Diabetes mellitus type 2, controlled ([facility]) DVT (deep venous thrombosis) ([facility]) GERD (gastroesophageal reflux disease) Hyperlipidemia Hypertension ICH (intracerebral hemorrhage) ([facility]) 06/04/2025 Osteoarthritis Past surgical history: Past Surgical History: Procedure Laterality Date TONSILLECTOMY TOTAL HIP ARTHROPLASTY 06/2010 Family history: Hefamily history includes Heart attack in his father; Leukemia in his mother; Lymphoma in his mother; Pancreatic cancer in his father. Allergies: Hehas no known allergies. Social history: Social History Socioeconomic History Marital status: Spouse name: Not on file Number of children: Not on file Years of education: Not on file Highest education level: Not on file Occupational History Not on file Tobacco Use Smoking status: Every Day Current packs/day: 1.00 Average packs/day: 1 pack/day for 52.8 years (52.8 ttl pk-yrs) Types: Cigarettes Start date: 1972 Smokeless tobacco: Never Substance and Sexual Activity Alcohol use: Yes Drug use: Never Sexual activity: Not on file Other Topics Concern Not on file Social History Narrative Not on file Social Drivers of Health Financial Resource Strain: Not on file Food Insecurity: No Food Insecurity (06/11/2025) Hunger Screening Food Insecurity - Worry: Never True Food Insecurity - Inability: Never True Transportation Needs: No Transportation Needs (06/05/2025) PRAPARE - Transportation Lack of Transportation (Medical): No Lack of Transportation (Non-Medical): No Physical Activity: Not on file Stress: Not on file Social Connections: Not on file Interpersonal Safety: Patient Unable To Answer (06/05/2025) Humiliation, Afraid, Rape, and Kick questionnaire Fear of Current or Ex-Partner: Patient unable to answer Emotionally Abused: Patient unable to answer Physically Abused: Patient unable to answer Sexually Abused: Patient unable to answer Housing Instability: Low Risk (06/05/2025) Housing Instability Housing Instability: No Physical exam: Vital Signs: Blood pressure 131/70, pulse 65, temperature 36.4 ??C (97.6 ??F), temperature source Axillary, resp. rate 19, height 182.9 cm (6'), weight 110.3 kg (243 lb 2.7 oz), SpO2 92%. Respiratory Source: O2 Device: Nasal cannula Admission Weight: Weight: 117.3 kg (258 lb 9.6 oz) NIHSS: 1a Level of consciousness: 1=not alert but arousable by minor stimulation to obey, answer or respond 1b. LOC questions: 0=Performs both tasks correctly 1c. LOC commands: 0=Performs both tasks correctly 2. Best Gaze: 0=normal 3. Visual: 1=Partial hemianopia 4. Facial Palsy: 0=Normal symmetric movement 5a. Motor left arm: 0=No drift, limb holds 90 (or 45) degrees for full 10 seconds 5b. Motor right arm: 0=No drift, limb holds 90 (or 45) degrees for full 10 seconds 6a. motor left le=No drift, limb holds 90 (or 45) degrees for full 10 seconds 6b Motor right le=No drift, limb holds 90 (or 45) degrees for full 10 seconds 7. Limb Ataxia: 0=Absent 8. Sensory: 0=Normal; no sensory loss 9. Best Language: 1=Mild to moderate aphasia; some obvious loss of fluency or facility of comprehension without significant limitation on ideas expressed or form of expression. 10. Dysarthria: 1=Mild to moderate, patient slurs at least some words and at worst, can be understood with some difficulty 11. Extinction and Inattention: 0=No abnormality Total: 4 Labs/Imaging: Objective Lab work/Imaging: Lab Results Component Value Date HGBA1C 8.3 (H) 06/07/2025 CALCIUM 9.9 06/12/2025 K 4.6 06/12/2025 CO2 31 06/12/2025 BUN 32 (H) 06/12/2025 CREATININE 1.62 (H) 06/12/2025 Lab Results Component Value Date WBC 5.0 06/12/2025 HGB 13.9 06/12/2025 MCV 92 06/12/2025 PLT 211 06/12/2025 Lab Results Component Value Date INR 1.5 (H) 06/04/2025 No results found for: LDL , CHOLESTEROLT Imaging: X-ray abdomen NG Tube placement 1 view Result Date: 06/12/2025 XR ABD NG TUBE PLACEMENT 1 VIEW Clinical history:NG placement enteric catheter placement and verification Comparison: 06/09/2025 Impression: Enteric catheter tip in the region of the distal stomach. Finalized by Peter Sarabia MD on 06/12/2025 4:47 AM Assessment: 70 years old male with past medical history of hypertension, hyperlipidemia, diabetes, obesity, recent DVT (on Eliquis) who had an episode of fall 3 days ago. Later on, the patient had an acute onsetof confusion in the morning and was taken to an outside hospital. CT head showed intraparenchymal hemorrhage and therefore the patient was transferred to [facility] for further workup. On examination, the patient was confused but no significant motor deficits at that time. They were admitted to the ICU for workup. MRI brain on 06/07: redemonstrated right thalamic hematoma with intraventricular extension Impression: R IPH with intra-ventricular extension, likely 2/2 HTN (ICH score 2) Plan: - Clinically stable, will transfer to the floor. - VFSS done, no liquids. Will start normal saline @ 75cc/hr. - Fluctuating blood glucose levels after feeds, endocrinology on board, appreciate recommendations and management. - Nephrology on board for blood pressure medication adjustments. Currently on coreg, amlodipine, lasix, lisinopril. - Antithrombotic plans: Plans to resume home Eliquis 4 weeks after the event. - UA positive for LE, will continue ceftriaxone. - Considering patient is chronic alcoholic and slow in communication, continue thiamine 500mg TID. - vEEG discontinued on 06/06. Levetiracetam levels therapeutic. - Consulted nephrology and Urology for BALJIT on CKD in the setting of bilateral hydronephrosis, appreciate recommendations and management. - Consulted vascular surgery for DVT management, recommended DVT prophylaxis. - NG tube was placed on 06/06 - Currently on Keppra due to provoked seizure at the outside hospital. Complete a 7 day course. - Target SBP 130-150. PRN Hydralazine and labetalol - Will need outpatient evaluation for SOFIA. - Code status: Full - Dispo: TBD - DVT px: Heparin 5000U TID Staffed with: Dr. Josué Cuenca MD PGY-3 Neurology Resident 06/12/25 8:57 AM Cosigned by Yani Moses MD at 06/12/2025 1:47 PM EDT Associated attestation - Yani Moses MD - 06/12/2025 1:47 PM EDT Patient seen and examined with resident. I agree with the main component with the resident note including the HPI, ROS, Physical exam and assessment and plan. With the following changes: F/u VSS results. * Alphonse Cuenca MD - 06/11/2025 1:00 PM EDT Neurovascular / Interventional neurology Intraparenchymal Hemorrhage Progress Note Date of admission 06/04/2025 5:25 PM PCP: SIENNA BARRIENTOS Reason of admission: IPH Deficit: AMS Last known well: Unclear, some time on 06/03/25 Patient seen at: ED Initial NIHSS: 9 Premorbid mRS: 0 Initial imaging: R Thalamic IPH with IVH ICH Score: 2 Initial BP reported: 134/83 Interval: Patient was seen and examined at bedside this morning. Systolic blood pressure ranging 120-140s, BNP slightly up trending and increased from 291 to 314, patient has baseline CKD with creatinine around 1.8. Nephrology on board and managing antihypertensive medications. Up trending glucose levels. CThead was repeated this morning which appears stable. Subjective: Gianni Babin is a 70 y.o. male who initially presented to an outside hospital and thereafter was transferred to [facility] via air. Past medical history significant for hypertension, DM, HLD,Obesity, DM2, recent DVT on Eliquis. Per chart review, the patient was initially taken to an outside hospital ED by EMS for evaluation of altered mental status. The patient was not aware of where he was, what year it was or who the president was. Imaging studies were done at the outside hospital including CT brain which showed 2.3 cm right thalamic hemorrhage with intraventricular extension. He was on Eliquis due to recent DVT and started on Eliquis. In the ED Kcentra was given for reversal of Eliquis. He was also given Keppra 2g at the outside hospital and started on Cardene infusion. The patient was accepted by the trauma service and transferred to [facility]. Upon arrival to [facility] ED, vascular neurology consulted. Upon my evaluation the patient is currently on room air. He appears to be confused, answering questions but incorrectly. He is able to follow commands intermittently. The patient has stable blood pressure, currently 119/80. According to the family he had an episode of fall 3 days back. However, themain onset of confusion was this morning. Past medical history: DVT on Eliquis, HTN, HLD, Obesity, DM2 Home medications: Eliquis, Aspirin, Lipitor, Lisinopril, Metformin Social history: Daily alcohol drinker, chronic smoking Home medications: Medications Prior to Admission Medication Sig Dispense Refill Last Dose/Taking aspirin 81 mg Take 1 tablet (81 mg total) by mouth in the morning. Taking atorvastatin (LIPITOR) 20 mg tablet Take 1 tablet (20 mg total) by mouth every morning. TAKE 1 TABLET (20 MG) BY MOUTH IN THE MORNING Taking ELIQUIS 5 mg tablet Take 1 tablet (5 mg total) by mouth in the morning and 1 tablet (5 mg total) before bedtime. Taking fenofibrate (LOFIBRA) 160 mg tablet Take 1 tablet (160 mg total) by mouth in the morning. Taking lisinopriL (PRINIVIL,ZESTRIL) 40 mg tablet Take 1 tablet (40 mg total) by mouth in the morning. Taking magnesium aspart,citrate,oxide (TRIPLE MAGNESIUM COMPLEX) 400 mg magnesium capsule Take 400 mg by mouth in the morning. Taking metFORMIN (GLUCOPHAGE) 1000 mg tablet Take 1 tablet (1,000 mg total) by mouth in the morning and 1 tablet (1,000 mg total) in the evening. Take with meals. Taking ACCU-CHEK GUIDE ME GLUCOSE MTR misc USE DAILY OR DIRECTED FOR MONITORING OF DIABETES. ACCU-CHEK GUIDE TEST STRIPS strip USE DAILY ACCU-CHEK SOFTCLIX LANCETS lancets USE TO TEST DAILY Past medical history: Past Medical History: Diagnosis Date Diabetes mellitus type 2, controlled ([facility]) DVT (deep venous thrombosis) ([facility]) GERD (gastroesophageal reflux disease) Hyperlipidemia Hypertension ICH (intracerebral hemorrhage) ([facility]) 06/04/2025 Osteoarthritis Past surgical history: Past Surgical History: Procedure Laterality Date TONSILLECTOMY TOTAL HIP ARTHROPLASTY 06/2010 Family history: Hefamily history includes Heart attack in his father; Leukemia in his mother; Lymphoma in his mother; Pancreatic cancer in his father. Allergies: Hehas no known allergies. Social history: Social History Socioeconomic History Marital status: Spouse name: Not on file Number of children: Not on file Years of education: Not on file Highest education level: Not on file Occupational History Not on file Tobacco Use Smoking status: Every Day Current packs/day: 1.00 Average packs/day: 1 pack/day for 52.8 years (52.8 ttl pk-yrs) Types: Cigarettes Start date: 1972 Smokeless tobacco: Never Substance and Sexual Activity Alcohol use: Yes Drug use: Never Sexual activity: Not on file Other Topics Concern Not on file Social History Narrative Not on file Social Drivers of Health Financial Resource Strain: Not on file Food Insecurity: No Food Insecurity (06/05/2025) Hunger Screening Food Insecurity - Worry: Never True Food Insecurity - Inability: Never True Transportation Needs: No Transportation Needs (06/05/2025) PRAPARE - Transportation Lack of Transportation (Medical): No Lack of Transportation (Non-Medical): No Physical Activity: Not on file Stress: Not on file Social Connections: Not on file Interpersonal Safety: Patient Unable To Answer (06/05/2025) Humiliation, Afraid, Rape, and Kick questionnaire Fear of Current or Ex-Partner: Patient unable to answer Emotionally Abused: Patient unable to answer Physically Abused: Patient unable to answer Sexually Abused: Patient unable to answer Housing Instability: Low Risk (06/05/2025) Housing Instability Housing Instability: No Physical exam: Vital Signs: Blood pressure 125/69, pulse 57, temperature 36.7 ??C (98.1 ??F), temperature source Axillary, resp. rate 18, height 182.9 cm (6'), weight 109.1 kg (240 lb 8.4 oz), SpO2 97%. Respiratory Source: O2 Device: Nasal cannula Admission Weight: Weight: 117.3 kg (258 lb 9.6 oz) NIHSS: 1a Level of consciousness: 1=not alert but arousable by minor stimulation to obey, answer or respond 1b. LOC questions: 0=Performs both tasks correctly 1c. LOC commands: 0=Performs both tasks correctly 2. Best Gaze: 0=normal 3. Visual: 1=Partial hemianopia 4. Facial Palsy: 0=Normal symmetric movement 5a. Motor left arm: 0=No drift, limb holds 90 (or 45) degrees for full 10 seconds 5b. Motor right arm: 0=No drift, limb holds 90 (or 45) degrees for full 10 seconds 6a. motor left le=No drift, limb holds 90 (or 45) degrees for full 10 seconds 6b Motor right le=No drift, limb holds 90 (or 45) degrees for full 10 seconds 7. Limb Ataxia: 0=Absent 8. Sensory: 0=Normal; no sensory loss 9. Best Language: 1=Mild to moderate aphasia; some obvious loss of fluency or facility of comprehension without significant limitation on ideas expressed or form of expression. 10. Dysarthria: 1=Mild to moderate, patient slurs at least some words and at worst, can be understood with some difficulty 11. Extinction and Inattention: 0=No abnormality Total: 4 Labs/Imaging: Objective Lab work/Imaging: Lab Results Component Value Date HGBA1C 8.3 (H) 06/07/2025 CALCIUM 9.3 06/11/2025 K 4.3 06/11/2025 CO2 27 06/11/2025 BUN 26 06/11/2025 CREATININE 1.84 (H) 06/11/2025 Lab Results Component Value Date WBC 5.4 06/11/2025 HGB 13.3 06/11/2025 MCV 93 06/11/2025 PLT 203 06/11/2025 Lab Results Component Value Date INR 1.5 (H) 06/04/2025 No results found for: LDL , CHOLESTEROLT Imaging: CT brain without contrast Result Date: 06/11/2025 STUDY: CT HEAD WITHOUT CONTRAST CLINICAL HISTORY: Intraparenchymal hematoma COMPARISON: 06/05/2025 TECHNIQUE: CT head was performed without contrast utilizing axial reconstruction with images reviewed in bone and brain windows. Automated exposure control was utilized. FINDINGS: Focal hemorrhage involving the right thalamus with intraventricular extension. On today's exam there is significantly less. Blood within the ventricles. Ventricular size stable. The hemorrhage is approximately 2.4 cm in similar to the previous exam. No new hemorrhages. Motion artifact present. No midline shift nor masseffect. Chronic microvascular ischemic changes present. Chronic inflammation involving the sphenoidsinus. IMPRESSION: * Stable hemorrhage involving the right thalamus. There is persistent but reduced intraventricular blood as compared to previous exam. No new nor advancing abnormality All CT scansat this facility use dose modulation, iterative reconstruction, and/or weight based dosing when appr opriate to reduce radiation dose to as low as reasonably achievable. Finalizedby Lucas Salvador MD on 06/11/2025 7:13 AM X-ray chest 1 view Result Date: 06/11/2025 CHEST ONE VIEW COMPARISON: 06/09/2025 HISTORY: Pulmonary edema. Impression: 1. Enteric catheter extends at least to the diaphragm, with the discs catheter not well-visualized due to body habitus. 2. Stable cardiomediastinal silhouette. Pulmonary vasculature is now within normal limits. 2. No evidence for a pneumothorax, focal consolidation, or pleural effusion. Finalized by Mason Berry MD on 06/11/2025 3:53 AM Assessment: 70 years old male with past medical history of hypertension, hyperlipidemia, diabetes, obesity, recent DVT (on Eliquis) who had an episode of fall 3 days ago. Later on, the patient had an acute onsetof confusion in the morning and was taken to an outside hospital. CT head showed intraparenchymal hemorrhage and therefore the patient was transferred to [facility] for further workup. On examination, the patient was confused but no significant motor deficits at that time. They were admitted to the ICU for workup. MRI brain on 06/07: redemonstrated right thalamic hematoma with intraventricular extension Impression: R IPH with intra-ventricular extension, likely 2/2 HTN (ICH score 2) Plan: - Continue care in the intensive care unit with stroke service. - Fluctuating blood glucose levels after feeds, will start sliding scale insulin low intensity, cantransition to high intensity if needed. - Nephrology on board for blood pressure medication adjustments. Currently on coreg, amlodipine, lasix, lisinopril. - Antithrombotic plans: Plans to resume home Eliquis 4 weeks after the event. - UA positive for LE, will continue ceftriaxone. - Considering patient is chronic alcoholic and slow in communication, continue thiamine 500mg TID. - vEEG discontinued on 06/06. Levetiracetam levels therapeutic. - Consulted nephrology and Urology for BALJIT on CKD in the setting of bilateral hydronephrosis, appreciate recommendations and management. - Consulted vascular surgery for DVT management, recommended DVT prophylaxis. - NG tube was placed on 06/06 - Currently on Keppra due to provoked seizure at the outside hospital. Complete a 7 day course. - Target SBP 130-150. PRN Hydralazine and labetalol - Will need outpatient evaluation for SOFIA. - Code status: Full - Dispo: TBD - DVT px: Heparin 5000U TID Staffed with: Dr. Josué Cuenca MD PGY-3 Neurology Resident 06/11/25 1:00 PM Cosigned by Yani Moses MD at 06/12/2025 1:46 PM EDT Associated attestation - Yani Moses MD - 06/12/2025 1:46 PM EDT Patient seen and examined with resident. I agree with the main component with the resident note including the HPI, ROS, Physical exam and assessment and plan. * BRANDON Barahona - 06/11/2025 12:30 PM EDT NUTRITION ADULT FOLLOW UP NUTRITION ASSESSMENT: Patient History: Brief Clinical Summary: Pt admitted for ICH. Not ready for oral feedings per BLOCK HACKER eval today. Past medical history significant for hypertension, DM, HLD, Obesity, DM2, recent DVT on Eliquis. Renal following- today diuretic held and free water / D2.5 continues Biochemical Data, Medical Tests, and Procedures: 06/06- failed BSSE 06/08- BLOCK HACKER still with NPO recs NGT placed Labs: Results from last 3 days Lab Units 06/11/25 0305 06/10/2525106/09/25 0316 SODIUM mmol/L 140 147* 146 POTASSIUM mmol/L 4.3 3.9 3.9 CHLORIDE mmol/L 103 109 115* CO2 mmol/L 27 28 23 BUN mg/dL 26 22 20 CREATININE mg/dL 1.84* 1.63* 1.47* CALCIUM mg/dL 9.3 9.4 9.0 ALBUMIN g/dL 3.6 3.4 3.2 ALK PHOS U/L 68 64 58 ALT U/L 7 11 6 AST U/L 14 13 14 Results from last 7 days Lab Units 06/11/25 0833 06/11/25 0305 06/10/25 0252 06/09/25 0316 06/08/25 0249 06/07/25 0407 06/06/25 0652 BEDSIDE GLUCOSE mg/dL 328* -- -- -- -- -- -- GLUCOSE mg/dL -- 303* 269* 214* 162* 171* 145* Results from last 3 days Lab Units 06/11/2530406/10/252 06/09/25 0316 WBC x10E9/L 5.4 4.9 5.1 HEMOGLOBIN g/dL 13.3 13.1 12.8* HEMATOCRIT % 39.2 38.5* 37.2* PLATELETS X10E9/L 203 209 186 MCV fL 93 93 92 Results from last 3 days Lab Units 06/11/255 06/10/25 025 MAGNESIUM mg/dL 1.9 2.0 Results from last 3 days Lab Units 06/11/255 06/10/25 025 PHOSPHORUS mg/dL 4.8 4.7 CALCIUM, IONIZED mg/dL 4.5 5.0 Results from last 3 days Lab Units 06/11/2530406/10/2525106/09/25 0316 BILIRUBIN, TOTAL mg/dL 0.4 0.5 0.5 Lab Results Component Value Date HGBA1C 8.3 (H) 06/07/2025 Lab Results Component Value Date IRON 55 06/07/2025 TIBC 314 06/07/2025 FERRITIN 127 06/07/2025 Lab Results Component Value Date IRONSAT 18 (L) 06/07/2025 Lab Results Component Value Date CHOL 155 06/05/2025 Lab Results Component Value Date CHDL 5.0 06/05/2025 Lab Results Component Value Date HDL 31 (L) 06/05/2025 Lab Results Component Value Date LDLCALC 77 06/05/2025 Lab Results Component Value Date TRIG 237 (H) 06/05/2025 Lab Results Component Value Date VERYLOWLIP 47 (H) 06/05/2025 Lab Results Component Value Date [id number] 274 06/07/2025 Lab Results Component Value Date FOLATE 11.1 06/07/2025 No results found for: VITD25 Comments (labs): reviewed Medications/ Parenteral: magoxide Current Facility-Administered Medications Medication Dose Route Frequency Provider Last Rate Last Admin amLODIPine (NORVASC) tablet 10 mg 10 mg g-tube Daily Adan Plasencia MD 10 mg at 06/11/25 0837 calcium gluconate 3,000 mg in sodium chloride 0.9 % 100 mL IVPB 3,000 mg intravenous PRN Adan Plasencia MD calcium gluconate 4,000 mg in sodium chloride 0.9 % 250 mL IVPB 4,000 mg intravenous PRN Adan Plasencia MD calcium gluconate IVPB 2000 mg/100 mL (20 mg/mL premix) 2,000 mg intravenous PRN Adan Plasencia MD carvediloL (COREG) tablet 25 mg 25 mg g-tube BID Adan Plasencia MD 25 mg at 06/11/25 0837 cefTRIAXone (ROCEPHIN) 1,000 mg in sodium chloride 0.9 % 50 mL IVPB W/ADAPTER 1,000 mg intravenous Q24H Alphonse Cuenca MD Stopped at 06/11/25 1142 dextrose (GLUTOSE) 40 % gel 15 g 15 g oral PRN Alphonse Cuenca MD dextrose 5 % (D5W) infusion 100 mL/hr intravenous Continuous PRN Alphonse Cuenca MD dextrose 50 % in water (D50W) 50% solution 25 mL 25 mL intravenous PRN Alphonse Cuenca MD glucagon HCL injection 1 mg 1 mg intramuscular PRN Alphonse Cuenca MD heparin (porcine) injection 5,000 Units 5,000 Units subcutaneous Q8H [facility] Alphonse Cuenca MD 5,000 Units at 06/11/25 0513 hydrALAZINE (APRESOLINE) injection 10 mg 10 mg intravenous Q4H PRN Alphonse Cuenca MD 10 mg at 06/05/25 1430 hydrALAZINE (APRESOLINE) tablet 25 mg 25 mg g-tube Q8H [facility] Adan Plasencia MD 25 mg at 06/11/25 0513 insulin lispro (HumaLOG) injection 1-4 Units 1-4 Units subcutaneous Nightly Alphonse Cuenca MD insulin lispro (HumaLOG) injection 1-5 Units 1-5 Units subcutaneous TID with meals Alphonse Cuenca MD 4 Units at 06/11/25 1227 labetaloL (NORMODYNE,TRANDATE) injection 10 mg 10 mg intravenous Q5 Min PRN Alphonse Cuenca MD 10 mgat 06/10/25 1927 levETIRAcetam (KEPPRA) 750 mg in sodium chloride 0.9 % 107.5 mL IVPB 750 mg intravenous Q12H MD Brianna Stopped at 06/11/25 0348 lisinopriL (PRINIVIL,ZESTRIL) tablet 40 mg 40 mg nasogastric Daily Adan Plasencia MD 40 mg at 06/11/25 0838 magnesium oxide (MAGOX) tablet 400 mg 400 mg g-tube Daily Adan Plasencia MD 400 mg at 06/11/25 0837 magnesium sulfate IVPB 2000 mg/50 mL in iso-osmotic water (40 mg/mL premix) 2,000 mg intravenous PRN Alphonse Cuenca MD Stopped at 06/11/25 0643 Or magnesium sulfate IVPB 4000 mg/100 mL in iso-osmotic water (40 mg/mL premix) 4,000 mg intravenous PRN Alphonse Cuenca MD niCARdipine (CARDENE-IV) infusion 40 mg/200 mL in iso-osmotic sodium chloride (0.2 mg/mL premix) 2.5-15 mg/hr intravenous Continuous Alphonse Cuenca MD Stopped at 06/09/25 1200 potassium chloride (K-TAB,KLOR-CON) CR tablet 20-60 mEq 20-60 mEq oral PRN Adan Plasencia MD Or potassium chloride (KAYCIEL) 20 mEq/15 mL solution 20-60 mEq 20-60 mEq oral PRN Adan Plasencia MD Or potassium chloride IVPB 10 mEq/100 mL in water (0.1 mEq/mL premix) 10 mEq intravenous PRN Adan Plasencia MD potassium chloride (KAYCIEL) 20 mEq/15 mL solution 20 mEq 20 mEq g-tube Daily Adan Plasencia MD 20 mEq at 06/11/25 0837 sodium phosphate 20 mmol in sodium chloride 0.9 % 250 mL IVPB 20 mmol intravenous PRN Adan Plasencia MD Or sodium phosphate 20 mmol in sodium chloride 0.9 % 100 mL IVPB 20 mmol intravenous PRN Adan Plasencia MD Or sod phos di, mono-K phos mono (K-PHOS NEUTRAL) 250 mg tablet 2 tablet 2 tablet oral PRN Adan Plasencia MD thiamine (B-1) 500 mg in sodium chloride 0.9 % 50 mL IVPB 500 mg intravenous TID Alphonse Cuenca MD Stopped at 06/11/25 0543 Nutrition Focused Physical Findings 06/10- BMx2 Skin (per nursing flow sheets): Skin Color: [place]; Pale (06/11/25 0800) Skin Temp: Cool; Dry (06/11/25 0800) Wound (per nursing flow sheets): Gastrointestinal (per nursing flow sheets): Abdomen Assessment: Soft; Nondistended; Rounded (06/11/25 0800) Last BM Date: 06/10/25 (06/10/25 1200) RUQ Bowel Sounds: Active (06/11/25 0800) LUQ Bowel Sounds: Active (06/11/25 0800) RLQ Bowel Sounds: Active (06/11/25 0800) LLQ Bowel Sounds: Active (06/11/25 08) Edema (per nursing flow sheets): Generalized Edema: +1 (06/11/25 0800) RUE Edema: +1 (06/11/25 0800) LUE Edema: +1 (06/11/25 08) RLE Edema: +2 (06/11/25 08) LLE Edema: +2 (06/11/25 0800) Intake/ Output Last 24 hrs: Intake/Output Summary (Last 24 hours) at 06/11/2025 1230 Last data filed at 06/11/2025 1229 Gross per 24 hour Intake 1111.36 ml Output 4420 ml Net -3308.64 ml Food/Nutrition Related History: Diet/ Nutrition Order Review: Dietary Orders (From admission, onward) Start Ordered 06/10/25 1300 Free water 4 times daily Question: Amount in mL Answer: 300 06/10/25 0952 06/06/25 1313 Tube feeding No tray-Continuous Tube feeding No Tray-Continuous; Nasogastric or Oral gastric feeding tube; Standard 1.5 kcal; 25 (once enterla access placement is confirmed); 10; Every 6 hours; 65 Continuous Comments: Osmolite 1.5 References: Formulary Card Question Answer Comment Diet Type: Tube feeding No Tray-Continuous Tube Type: Nasogastric or Oral gastric feeding tube Tube Feeding Formula: Standard 1.5 kcal Tube Feeding Start Rate (mL/hour): 25 once enterla access placement is confirmed Increase Rate by (mL/hour): 10 Frequency of Rate increase: Every 6 hours Goal Rate (mL/hour): 65 06/06/25 1314 Inpatient Nutrition Support History: 06/06- TF started TF: Osmolite 1.5 at 65 ml/hr to provide 2340kcal 97g protein 1189ml free water plus `1200ml free water flushes for 2389ml/day 100% RDI Anthropometrics: Ht Readings from Last 1 Encounters: 06/09/25 182.9 cm (6') Last 3 Weight Readings 06/09/25 0000 06/10/25 0500 06/11/25 0445 Weight: 116.3 kg (256 lb 6.3 oz) 111.4 kg (245 lb 9.5 oz) 109.1 kg (240 lb 8.4 oz) Admit Weight: 117.3kg (Bed Scale, 06/04) [place] Body Weight: 80.9kg Weight Changes: - Admit Body Mass Index: 35.1 kg/m??. Current Body Mass Index: Body mass index is 32.62 kg/m??. Comparative Standards: Estimated Energy Needs: 4381-2283 kcals daily. Method and weight used: 25-32 kcal/kg ibw Estimated Protein Needs: 97-160 grams daily. Method and weight used: 1.2-2g protein/kg ibw Estimated Fluid Needs: 5548-3848 ml daily. Method weight used: 1 ml/kg/kcal Comments: general needs Malnutrition Status: Malnutrition Present: not with information reviewed NUTRITION DIAGNOSIS: Intake Diagnosis: Inadequate oral intake (NI 2.1) -TF meeting needs NUTRITION INTERVENTIONS: Enteral & parenteral nutrition:continue Osmolite 1.5 with goal rate of 65ml/hr for 2340kcal and97g protein, 1189ml free water Nutrition related medication management: continue free water flushes per MD GOAL(S): pt to receive estimated nutrition needs NUTRITION MONITORING AND EVALUATION: I/O,wts, labs TF tolerance, POC Pippa Cowart R.D,L.D. Clinical dietitian Patient Touch extension:[phone] Direct Dial phone number: [phone] 06/11/25 12:30 PM * Curt Vogt MD - 06/11/2025 9:07 AM EDT Images from the original note were not included. Nephrology Daily Progress Note SUBJECTIVE Agitated. NG in place. On oxygen via nasal cannula. Blood pressure continues to be labile because of agitation. VITAL SIGNS TREND: Vitals: 06/11/25 0500 06/11/25 0600 06/11/25 0700 06/11/25 0800 BP: 149/80 136/77 140/71 145/64 Pulse: 70 60 64 58 Resp: (!) 26 20 21 24 Temp: TempSrc: SpO2: 92% 95% 95% 95% Weight: Height: INTAKE/OUTPUT: Intake/Output Summary (Last 24 hours) at 06/11/2025 0907 Last data filed at 06/11/2025 0851 Gross per 24 hour Intake 1539.36 ml Output 4110 ml Net -2570.64 ml I/O this shift: In: - Out: 225 [Urine:225] WEIGHT: Last 3 Weight Readings 06/09/25 0000 06/10/25 0500 06/11/25 0445 Weight: 116.3 kg (256 lb 6.3 oz) 111.4 kg (245 lb 9.5 oz) 109.1 kg (240 lb 8.4 oz) PHYSICAL EXAM: Blood pressure 145/64, pulse 58, temperature 36.9 ??C (98.4 ??F), temperature source Axillary, resp. rate 24, height 182.9 cm (6'), weight 109.1 kg (240 lb 8.4 oz), SpO2 95%. Temp: [36.7 ??C (98.1 ??F)-37.2 ??C (99 ??F)] 36.9 ??C (98.4 ??F) Pulse: [58-76] 58 Resp: [17-28] 24 BP: (124-159)/(64-119) 145/64 SpO2: [89 %-96 %] 95 % O2 Device: Nasal cannula O2 Flow Rate (L/min): [2 L/min-4 L/min] 4 L/min General appearance: Continues to be encephalopathic, agitated in no apparent distress. HEENT: no JVD, no lymphadenopathy. Heart exam: normal S1-S2 Lungs: clear to auscultation bilaterally Abdomen: soft, no tenderness, no guarding, positive bowel sounds Extremities: no edema Vascular: adequate pulses and no carotid bruits. Musculoskeletal: no joint tenderness or swelling. LABORATORY EVALUATION: Results from last 7 days Lab Units 06/11/2530406/10/2525106/09/2531506/08/259 06/07/25 1227 06/07/25 0407 06/04/25 1958 06/04/25 1345 SODIUM mmol/L 140 147* 146 143 -- 141 < > 135 POTASSIUM mmol/L 4.3 3.9 3.9 3.6 3.6 3.5 < > 3.4* CHLORIDE mmol/L 103 109 115* 111* -- 108 < > 99 CO2 mmol/L 27 28 23 25 -- 24 < > 24 ANION GAP mmol/L 10 10 8 7 -- 9 < > 12 BUN mg/dL 26 22 20 18 -- 16 < > 12 CREATININE mg/dL 1.84* 1.63* 1.47* 1.43* -- 1.49* < > 1.31* CALCIUM mg/dL 9.3 9.4 9.0 9.0 -- 9.1 < > 8.9 MAGNESIUM mg/dL 1.9 2.0 -- -- -- -- -- 1.9 PHOSPHORUS mg/dL 4.8 4.7 -- -- -- -- -- -- CALCIUM, IONIZED mg/dL 4.5 5.0 -- -- -- -- -- -- < > = values in this interval not displayed. Results from last 7 days Lab Units 06/11/2530406/10/2525106/09/2531506/08/25 02406/07/25 2247 06/07/25199906/07/25 1621 06/07/25 0407 PROTEIN TOTAL g/dL 6.7 6.4 5.8* 6.1 -- 5.9* -- 6.4 ALBUMIN g/dL 3.6 3.4 3.2 3.3 -- -- -- 3.5 AST U/L 14 13 14 22 -- -- -- 17 ALT U/L 7 11 6 8 -- -- -- 7 BILIRUBIN, TOTAL mg/dL 0.4 0.5 0.5 0.6 -- -- -- 0.7 BILIRUBIN URINE -- -- -- -- Negative -- < > -- ALK PHOS U/L 68 64 58 56 -- -- -- 58 < > = values in this interval not displayed. Results from last 7 days Lab Units 06/11/2530406/10/2525106/09/2531506/08/2524806/07/25 2000 06/07/25 040 WBC x10E9/L 5.4 4.9 5.1 5.8 -- 4.9 HEMOGLOBIN g/dL 13.3 13.1 12.8* 13.3 13.1 13.5 HEMATOCRIT % 39.2 38.5* 37.2* 39.0 38.1* 38.9* PLATELETS X10E9/L 203 209 186 189 -- 211 @RESUFAST(IRON,TIBC,FERRITIN,IRONSAT,FOLATE,[id number]))@ Results from last 7 days Lab Units 06/11/25 0833 06/11/2530406/10/2525106/09/2531506/08/25 024 BEDSIDE GLUCOSE mg/dL 328* -- -- -- -- GLUCOSE mg/dL -- 303* 269* 214* 162* Results from last 7 days Lab Units 06/08/25248 CPK ISOENZYMES U/L 123 Results from last 7 days Lab Units 06/11/2530406/10/2525106/07/25 040 BNP pg/mL 314* 291* 163* CURRENT MEDICATIONS: amLODIPine, 10 mg, g-tube, Daily carvediloL, 25 mg, g-tube, BID cefTRIAXone (ROCEPHIN) IV, 1,000 mg, intravenous, Q24H furosemide, 40 mg, intravenous, Q12H heparin (porcine), 5,000 Units, subcutaneous, Q8H CATRINA hydrALAZINE, 25 mg, g-tube, Q8H CATRINA insulin lispro, 1-4 Units, subcutaneous, Nightly insulin lispro, 1-5 Units, subcutaneous, TID with meals levETIRAcetam, 750 mg, intravenous, Q12H lisinopriL, 40 mg, nasogastric, Daily magnesium oxide, 400 mg, g-tube, Daily potassium chloride, 20 mEq, g-tube, Daily thiamine (B-1) 500 mg in sodium chloride 0.9 % 50 mL IVPB, 500 mg, intravenous, TID 1. Enteric catheter extends at least to the diaphragm, with the discs catheter not well-visualized due to body habitus. 2. Stable cardiomediastinal silhouette. Pulmonary vasculature is now within normal limits. 2. No evidence for a pneumothorax, focal consolidation, or pleural effusion. PROBLEM LIST: Chronic kidney disease stage IIIA: CT scan of abdomen pelvis with contrast on 06/04/2025 showed cortical scarring with significant caliectasis and hydronephrosis right ureter is dilated down to the urinary bladder. Cortical scarring. Left kidney significant hydronephrosis and caliectasis no discrete cortical scarring. Renal ultrasound showed right hydronephrosis and mild left hydronephrosis. Urine protein to creatinine ratio is 1 g/g. Hepatitis panel and HIV are negative C3 is normal. C4 is on the high side which is 53. Rheumatoid factor is normal. Reil-hajoij-goewibya DNA is negative. LUIZA isnegative. Glomerular basement membrane antibodies are negative. SPEP is pending. Anca was negative. 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 IMPRESSION: 1. Chronic kidney disease stage IIIA: Creatinine up to 1.84 mg/dL. 2. Bilateral hydronephrosis with cortical scarring of both kidneys. Status post Mayo catheter placement. Urology is following. The renal ultrasound on June 07 2025 showed mild right hydronephrosis mild left hydronephrosis decreased from CT scan performed 3 days prior. However significant dilatation of both extrarenal pelvises remains. Await further input from our Urology colleagues 3. 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 Neurology is following. 4. Hypertensive emergency: Blood pressure continues to fluctuate likely related to agitation. Recent blood pressure is better 133/78 136/70. Now on lisinopril 40 mg daily, hydralazine 25 mg q.8 hours, Norvasc 10 mg daily, Coreg 25 mg b.i.d. 5. Volume status: No edema on exam. He had mild pulmonary edema on x-ray. Had 2.4 L in and 4.3 L ofurine output overall is down 1.9 L. 6. Hypernatremia: On free water per G-tube 300 mL 4 times daily. D2.5 W was ordered. PLAN: 1. Await further input from Urology regarding persistent hydronephrosis 2. Continue free water per G-tube. 3. Discontinue IV Lasix 4. Monitor serial renal chemistries Discussed with the patient's sister at bedside. Curt Vogt MD PhD FACP For questions please call: Answering Service at [phone] Or Office at [phone] This note was created with the assistance of a speech-recognition program. Although the intention is to generate a document that actually reflects the content of the visit, no guarantees can be provided that every mistake has been identified and corrected by editing. * Adan Plasencia MD - 06/10/2025 9:49 AM EDT Images from the original note were not included. Nephrology Daily Progress Note INTERVAL HISTORY: Agitated. NG in place. On oxygen via nasal cannula. Blood pressure continues to be labile because of agitation. VITAL SIGNS TREND: Vitals: 06/10/25 0500 06/10/25 0600 06/10/25 0700 06/10/25 0800 BP: 136/69 (!) 167/116 156/82 160/85 Pulse: 75 72 78 81 Resp: 23 23 (!) 28 (!) 26 Temp: TempSrc: SpO2: 94% 92% 90% 93% Weight: 111.4 kg (245 lb 9.5 oz) Height: INTAKE/OUTPUT: Intake/Output Summary (Last 24 hours) at 06/10/2025 0949 Last data filed at 06/10/2025 0800 Gross per 24 hour Intake 3565.5 ml Output 5965 ml Net -2399.5 ml I/O this shift: In: 923 [NG/GT:923] Out: 330 [Urine:330] WEIGHT: Last 3 Weight Readings 06/08/25 0100 06/09/25 0000 06/10/25 0500 Weight: 113.9 kg (251 lb 1.7 oz) 116.3 kg (256 lb 6.3 oz) 111.4 kg (245 lb 9.5 oz) PHYSICAL EXAM: Blood pressure 160/85, pulse 81, temperature 36.6 ??C (97.8 ??F), temperature source Axillary, resp. rate (!) 26, height 182.9 cm (6'), weight 111.4 kg (245 lb 9.5 oz), SpO2 93%. Temp: [36.5 ??C (97.7 ??F)-36.7 ??C (98.1 ??F)] 36.6 ??C (97.8 ??F) Pulse: [68-90] 81 Resp: [13-28] 26 BP: (124-167)/(63-116) 160/85 SpO2: [88 %-97 %] 93 % O2 Device: Nasal cannula O2 Flow Rate (L/min): [2 L/min] 2 L/min General appearance: Continues to be encephalopathic, agitated in no apparent distress. HEENT: no JVD, no lymphadenopathy. Heart exam: normal S1-S2 Lungs: clear to auscultation bilaterally Abdomen: soft, no tenderness, no guarding, positive bowel sounds Extremities: no edema Vascular: adequate pulses and no carotid bruits. Musculoskeletal: no joint tenderness or swelling. LABORATORY EVALUATION: Results from last 7 days Lab Units 06/10/25 0252 06/09/25 0316 06/08/25 0249 06/07/25 1227 06/07/25 0407 06/06/25 0652 06/04/25 1958 06/04/25 1345 SODIUM mmol/L 147* 146 143 -- 141 141 < > 135 POTASSIUM mmol/L 3.9 3.9 3.6 3.6 3.5 3.5 < > 3.4* CHLORIDE mmol/L 109 115* 111* -- 108 107 < > 99 CO2 mmol/L 28 23 25 -- 24 23 < > 24 ANION GAP mmol/L 10 8 7 -- 9 11 < > 12 BUN mg/dL 22 20 18 -- 16 13 < > 12 CREATININE mg/dL 1.63* 1.47* 1.43* -- 1.49* 1.43* < > 1.31* CALCIUM mg/dL 9.4 9.0 9.0 -- 9.1 8.6 < > 8.9 MAGNESIUM mg/dL 2.0 -- -- -- -- -- -- 1.9 PHOSPHORUS mg/dL 4.7 -- -- -- -- -- -- -- CALCIUM, IONIZED mg/dL 5.0 -- -- -- -- -- -- -- < > = values in this interval not displayed. Results from last 7 days Lab Units 06/10/2525106/09/2531506/08/2524806/07/25224606/07/25162006/07/2540606/06/25 0652 PROTEIN TOTAL g/dL 6.4 5.8* 6.1 -- -- 6.4 6.2 ALBUMIN g/dL 3.4 3.2 3.3 -- -- 3.5 3.4 AST U/L 13 14 22 -- -- 17 16 ALT U/L 11 6 8 -- -- 7 8 BILIRUBIN, TOTAL mg/dL 0.5 0.5 0.6 -- -- 0.7 0.7 BILIRUBIN URINE -- -- -- Negative Negative -- -- ALK PHOS U/L 64 58 56 -- -- 58 56 Results from last 7 days Lab Units 06/10/2525106/09/2531506/08/2524806/07/25199906/07/2540606/06/25 0652 WBC x10E9/L 4.9 5.1 5.8 -- 4.9 4.3 HEMOGLOBIN g/dL 13.1 12.8* 13.3 13.1 13.5 13.7 HEMATOCRIT % 38.5* 37.2* 39.0 38.1* 38.9* 39.2 PLATELETS X10E9/L 209 186 189 -- 211 191 @RESUFAST(IRON,TIBC,FERRITIN,IRONSAT,FOLATE,[id number]))@ Results from last 7 days Lab Units 06/10/2525106/09/2531506/08/2524806/07/2540606/06/25 0652 GLUCOSE mg/dL 269* 214* 162* 171* 145* Results from last 7 days Lab Units 06/08/25 0249 CPK ISOENZYMES U/L 123 Results from last 7 days Lab Units 06/10/25 0252 06/07/25 0407 BNP pg/mL 291* 163* CURRENT MEDICATIONS: amLODIPine, 5 mg, g-tube, Daily carvediloL, 25 mg, g-tube, BID cefTRIAXone (ROCEPHIN) IV, 1,000 mg, intravenous, Q24H furosemide, 40 mg, intravenous, Q12H heparin (porcine), 5,000 Units, subcutaneous, Q8H CATRINA levETIRAcetam, 750 mg, intravenous, Q12H lisinopriL, 40 mg, nasogastric, Daily magnesium oxide, 400 mg, g-tube, Daily potassium chloride, 20 mEq, g-tube, Daily thiamine (B-1) 500 mg in sodium chloride 0.9 % 50 mL IVPB, 500 mg, intravenous, TID PROBLEM LIST: Chronic kidney disease stage IIIA: CT scan of abdomen pelvis with contrast on 06/04/2025 showed cortical scarring with significant caliectasis and hydronephrosis right ureter is dilated down to the urinary bladder. Cortical scarring. Left kidney significant hydronephrosis and caliectasis no discrete cortical scarring. Renal ultrasound showed right hydronephrosis and mild left hydronephrosis. Urine protein to creatinine ratio is 1 g/g. Hepatitis panel and HIV are negative C3 is normal. C4 is on the high side which is 53. Rheumatoid factor is normal. Yduo-xourgq-ukpvpkzd DNA is negative. LUIZA isnegative. Glomerular basement membrane antibodies are negative. SPEP is pending. Anca was negative. 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 IMPRESSION: 1. Chronic kidney disease stage IIIA: Creatinine continues to be relatively stable. 2. Bilateral hydronephrosis with cortical scarring of both kidneys. Status post Mayo catheter placement. Urology is following. Repeat renal ultrasound revealed improvement in hydronephrosis 3. 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 Neurology is following. 4. Hypertensive emergency: Blood pressure continues to fluctuate likely related to agitation. 5. Volume status: No edema on exam. Mild pulmonary edema on chest x-ray. On IV Lasix 6. Hypernatremia: On free water per G-tube. D2.5 W was ordered. PLAN: 1. Continue IV Lasix 40 mg IV q.12 2. D2.5 W x1 liter for hypernatremia 3. Increase free water per G-tube for hypernatremia 4. Increase amlodipine for better blood pressure control 5. Chest x-ray in a.m. 6. Reassess blood pressure in a.m. 7. Reassess volume status in a.m. Discussed with his nurse in person at the bedside Adan Plasencia M.D. For questions please call: Answering Service at [phone] Or Office at [phone] This note was created with the assistance of a speech-recognition program. Although the intention is to generate a document that actually reflects the content of the visit, no guarantees can be provided that every mistake has been identified and corrected by editing. * Alphonse Cuenca MD - 06/10/2025 9:14 AM EDT Neurovascular / Interventional neurology Intraparenchymal Hemorrhage Progress Note Date of admission 06/04/2025 5:25 PM PCP: SIENNA BARRIENTOS Reason of admission: IPH Deficit: AMS Last known well: Unclear, some time on 06/03/25 Patient seen at: ED Initial NIHSS: 9 Premorbid mRS: 0 Initial imaging: R Thalamic IPH with IVH ICH Score: 2 Initial BP reported: 134/83 Interval: Patient was seen and examined at bedside this morning. Systolic blood pressure 150-167 with intermittent need for labetalol. Afebrile, BNP slightly trending from 163-291. Sodium 147, creatinine 1.6, team nephrology on board. 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 Of note, also had ST-elevation on EKG overnight, troponins negative and asymptomatic. Subjective: Gianni Babin is a 70 y.o. male who initially presented to an outside hospital and thereafter was transferred to [facility] via air. Past medical history significant for hypertension, DM, HLD,Obesity, DM2, recent DVT on Eliquis. Per chart review, the patient was initially taken to an outside hospital ED by EMS for evaluation of altered mental status. The patient was not aware of where he was, what year it was or who the president was. Imaging studies were done at the outside hospital including CT brain which showed 2.3 cm right thalamic hemorrhage with intraventricular extension. He was on Eliquis due to recent DVT and started on Eliquis. In the ED Kcentra was given for reversal of Eliquis. He was also given Keppra 2g at the outside hospital and started on Cardene infusion. The patient was accepted by the trauma service and transferred to [facility]. Upon arrival to [facility] ED, vascular neurology consulted. Upon my evaluation the patient is currently on room air. He appears to be confused, answering questions but incorrectly. He is able to follow commands intermittently. The patient has stable blood pressure, currently 119/80. According to the family he had an episode of fall 3 days back. However, themain onset of confusion was this morning. Past medical history: DVT on Eliquis, HTN, HLD, Obesity, DM2 Home medications: Eliquis, Aspirin, Lipitor, Lisinopril, Metformin Social history: Daily alcohol drinker, chronic smoking Home medications: Medications Prior to Admission Medication Sig Dispense Refill Last Dose/Taking aspirin 81 mg Take 1 tablet (81 mg total) by mouth in the morning. Taking atorvastatin (LIPITOR) 20 mg tablet Take 1 tablet (20 mg total) by mouth every morning. TAKE 1 TABLET (20 MG) BY MOUTH IN THE MORNING Taking ELIQUIS 5 mg tablet Take 1 tablet (5 mg total) by mouth in the morning and 1 tablet (5 mg total) before bedtime. Taking fenofibrate (LOFIBRA) 160 mg tablet Take 1 tablet (160 mg total) by mouth in the morning. Taking lisinopriL (PRINIVIL,ZESTRIL) 40 mg tablet Take 1 tablet (40 mg total) by mouth in the morning. Taking magnesium aspart,citrate,oxide (TRIPLE MAGNESIUM COMPLEX) 400 mg magnesium capsule Take 400 mg by mouth in the morning. Taking metFORMIN (GLUCOPHAGE) 1000 mg tablet Take 1 tablet (1,000 mg total) by mouth in the morning and 1 tablet (1,000 mg total) in the evening. Take with meals. Taking ACCU-CHEK GUIDE ME GLUCOSE MTR misc USE DAILY OR DIRECTED FOR MONITORING OF DIABETES. ACCU-CHEK GUIDE TEST STRIPS strip USE DAILY ACCU-CHEK SOFTCLIX LANCETS lancets USE TO TEST DAILY Past medical history: Past Medical History: Diagnosis Date Diabetes mellitus type 2, controlled ([facility]) DVT (deep venous thrombosis) ([facility]) GERD (gastroesophageal reflux disease) Hyperlipidemia Hypertension ICH (intracerebral hemorrhage) ([facility]) 06/04/2025 Osteoarthritis Past surgical history: Past Surgical History: Procedure Laterality Date TONSILLECTOMY TOTAL HIP ARTHROPLASTY 06/2010 Family history: Hefamily history includes Heart attack in his father; Leukemia in his mother; Lymphoma in his mother; Pancreatic cancer in his father. Allergies: Hehas no known allergies. Social history: Social History Socioeconomic History Marital status: Spouse name: Not on file Number of children: Not on file Years of education: Not on file Highest education level: Not on file Occupational History Not on file Tobacco Use Smoking status: Every Day Current packs/day: 1.00 Average packs/day: 1 pack/day for 52.8 years (52.8 ttl pk-yrs) Types: Cigarettes Start date: 1972 Smokeless tobacco: Never Substance and Sexual Activity Alcohol use: Yes Drug use: Never Sexual activity: Not on file Other Topics Concern Not on file Social History Narrative Not on file Social Drivers of Health Financial Resource Strain: Not on file Food Insecurity: No Food Insecurity (06/05/2025) Hunger Screening Food Insecurity - Worry: Never True Food Insecurity - Inability: Never True Transportation Needs: No Transportation Needs (06/05/2025) PRAPARE - Transportation Lack of Transportation (Medical): No Lack of Transportation (Non-Medical): No Physical Activity: Not on file Stress: Not on file Social Connections: Not on file Interpersonal Safety: Patient Unable To Answer (06/05/2025) Humiliation, Afraid, Rape, and Kick questionnaire Fear of Current or Ex-Partner: Patient unable to answer Emotionally Abused: Patient unable to answer Physically Abused: Patient unable to answer Sexually Abused: Patient unable to answer Housing Instability: Low Risk (06/05/2025) Housing Instability Housing Instability: No Physical exam: Vital Signs: Blood pressure 160/85, pulse 81, temperature 36.6 ??C (97.8 ??F), temperature source Axillary, resp. rate (!) 26, height 182.9 cm (6'), weight 111.4 kg (245 lb 9.5 oz), SpO2 93%. Respiratory Source: O2 Device: Nasal cannula Admission Weight: Weight: 117.3 kg (258 lb 9.6 oz) NIHSS: 1a Level of consciousness: 1=not alert but arousable by minor stimulation to obey, answer or respond 1b. LOC questions: 1=Performs one task correctly 1c. LOC commands: 1=Performs one task correctly 2. Best Gaze: 0=normal 3. Visual: 1=Partial hemianopia 4. Facial Palsy: 0=Normal symmetric movement 5a. Motor left arm: 0=No drift, limb holds 90 (or 45) degrees for full 10 seconds 5b. Motor right arm: 0=No drift, limb holds 90 (or 45) degrees for full 10 seconds 6a. motor left le=Drift, limb holds 90 (or 45) degrees but drifts down before full 10 seconds: does not hit bed 6b Motor right le=Drift, limb holds 90 (or 45) degrees but drifts down before full 10 seconds: does not hit bed 7. Limb Ataxia: 1=Present in one limb 8. Sensory: 0=Normal; no sensory loss 9. Best Language: 1=Mild to moderate aphasia; some obvious loss of fluency or facility of comprehension without significant limitation on ideas expressed or form of expression 10. Dysarthria: 1=Mild to moderate, patient slurs at least some words and at worst, can be understood with some difficulty 11. Extinction and Inattention: 0=No abnormality Total: 9 Labs/Imaging: Objective Lab work/Imaging: Lab Results Component Value Date HGBA1C 8.3 (H) 06/07/2025 CALCIUM 9.4 06/10/2025 K 3.9 06/10/2025 CO2 28 06/10/2025 BUN 22 06/10/2025 CREATININE 1.63 (H) 06/10/2025 Lab Results Component Value Date WBC 4.9 06/10/2025 HGB 13.1 06/10/2025 MCV 93 06/10/2025 PLT 209 06/10/2025 Lab Results Component Value Date INR 1.5 (H) 06/04/2025 No results found for: LDL , CHOLESTEROLT Imaging: X-ray chest 1 view Result Date: 06/09/2025 Clinical History: Hypoxia. Portable Upright chest: 06/09/2025 Comparison: 06/07/2025 Findings: A single portable view of the chest was obtained. The enteric tube extends through the mediastinum to the upper abdomen, the tip beyond the field of visualization. There is no acute pulmonary infiltrate. The aorta is tortuous with mild passive prominent centrally. There is no pneumothorax. IMPRESSION: Aortic tortuosity with no definite change. Mild vascular prominence with no peripheral infiltrate. Finalized by Gianni Levy MD on 06/09/2025 12:40 PM Assessment: 70 years old male with past medical history of hypertension, hyperlipidemia, diabetes, obesity, recent DVT (on Eliquis) who had an episode of fall 3 days ago. Later on, the patient had an acute onsetof confusion in the morning and was taken to an outside hospital. CT head showed intraparenchymal hemorrhage and therefore the patient was transferred to [facility] for further workup. On examination, the patient was confused but no significant motor deficits at that time. They were admitted to the ICU for workup. MRI brain on 06/07: redemonstrated right thalamic hematoma with intraventricular extension Impression: R IPH with intra-ventricular extension, likely 2/2 HTN (ICH score 2) Plan: - Continue care in the intensive care unit with stroke service. - On cardene, nephrology on board for blood pressure medication adjustments. Currently on coreg, amlodipine, lasix, lisinopril. - Antithrombotic plans: Repeat CTH tomorrow morning, if stable will start Aspirin. Plans to resume home Eliquis 4 weeks after the event. - Consider patient has a small bleed and there is a risk of ischemic stroke, clinically appropriateat this time to resume aspirin once CTH is stable. - UA positive for LE, will continue ceftriaxone. - Considering patient is chronic alcoholic and slow in communication, continue thiamine 500mg TID. - vEEG discontinued on 06/06. Levetiracetam levels therapeutic. - Consulted nephrology and Urology for BALJIT on CKD in the setting of bilateral hydronephrosis, appreciate recommendations and management. - Consulted vascular surgery for DVT management, recommended DVT prophylaxis. - NG tube was placed on 06/06 - Currently on Keppra due to provoked seizure at the outside hospital. Complete a 7 day course. - Target SBP 130-150. PRN Hydralazine and labetalol - Will need outpatient evaluation for SOFIA. - Code status: Full - Dispo: TBD - DVT px: Heparin 5000U TID Staffed with: Dr. Monika Cuenca MD PGY-3 Neurology Resident 06/10/25 9:15 AM Cosigned by Patricia Mcclellan MD at 06/20/2025 12:22 AM EDT Associated attestation - Patricia Mcclellan MD - 06/20/2025 12:22 AM EDT ?Attending?Attestation: ?I saw the patient. I performed the critical/dill portions of the service.? I was directly involved in the management and treatment plan of the patient.? I reviewed the residents' notes. ?Additional Notes/Findings: None. ?The clinical encounter comprised of: The patient is being evaluated for stroke and is at risk for neurological deterioration. Preparing to see the patient (e.g., review of tests) Obtaining and/or reviewing separately obtained history Performing a medically appropriate examination and/or evaluation Counseling and educating the patient/family/caregiver Documenting clinical information in the electronic or other health record Independently interpreting results (not separately reported) and communicating results to the patient/family/caregiver Care coordination (not separately reported) ? Patricia Mcclellan MD Vascular Neurologist [facility] Neurology ([facility])? Important Notice:??This note was created with the assistance of a speech recognition program.? While intending to generate a timely document that accurately reflects the content of the encounter, no guarantee can be provided that every grammatical or spelling mistake has been or will be identified or corrected.? Thank you for your understanding. * Alphonse Cuenca MD - 06/09/2025 9:20 AM EDT Neurovascular / Interventional neurology Intraparenchymal Hemorrhage Progress Note Date of admission 06/04/2025 5:25 PM PCP: SIENNA BARRIENTOS Reason of admission: IPH Deficit: AMS Last known well: Unclear, some time on 06/03/25 Patient seen at: ED Initial NIHSS: 9 Premorbid mRS: 0 Initial imaging: R Thalamic IPH with IVH ICH Score: 2 Initial BP reported: 134/83 Interval: Patient was seen and examined at bedside this morning. Vitals stable, on Cardene infusion, no acuteevents reported overnight. Levetiracetam levels are therapeutic. NG in place. Lower extremity duplex normal. Currently on ceftriaxone for leukocyte esterase positive on urinalysis. Subjective: Gianni Babin is a 70 y.o. male who initially presented to an outside hospital and thereafter was transferred to [facility] via air. Past medical history significant for hypertension, DM, HLD,Obesity, DM2, recent DVT on Eliquis. Per chart review, the patient was initially taken to an outside hospital ED by EMS for evaluation of altered mental status. The patient was not aware of where he was, what year it was or who the president was. Imaging studies were done at the outside hospital including CT brain which showed 2.3 cm right thalamic hemorrhage with intraventricular extension. He was on Eliquis due to recent DVT and started on Eliquis. In the ED Kcentra was given for reversal of Eliquis. He was also given Keppra 2g at the outside hospital and started on Cardene infusion. The patient was accepted by the trauma service and transferred to [facility]. Upon arrival to [facility] ED, vascular neurology consulted. Upon my evaluation the patient is currently on room air. He appears to be confused, answering questions but incorrectly. He is able to follow commands intermittently. The patient has stable blood pressure, currently 119/80. According to the family he had an episode of fall 3 days back. However, themain onset of confusion was this morning. Past medical history: DVT on Eliquis, HTN, HLD, Obesity, DM2 Home medications: Eliquis, Aspirin, Lipitor, Lisinopril, Metformin Social history: Daily alcohol drinker, chronic smoking Home medications: Medications Prior to Admission Medication Sig Dispense Refill Last Dose/Taking aspirin 81 mg Take 1 tablet (81 mg total) by mouth in the morning. Taking atorvastatin (LIPITOR) 20 mg tablet Take 1 tablet (20 mg total) by mouth every morning. TAKE 1 TABLET (20 MG) BY MOUTH IN THE MORNING Taking ELIQUIS 5 mg tablet Take 1 tablet (5 mg total) by mouth in the morning and 1 tablet (5 mg total) before bedtime. Taking fenofibrate (LOFIBRA) 160 mg tablet Take 1 tablet (160 mg total) by mouth in the morning. Taking lisinopriL (PRINIVIL,ZESTRIL) 40 mg tablet Take 1 tablet (40 mg total) by mouth in the morning. Taking magnesium aspart,citrate,oxide (TRIPLE MAGNESIUM COMPLEX) 400 mg magnesium capsule Take 400 mg by mouth in the morning. Taking metFORMIN (GLUCOPHAGE) 1000 mg tablet Take 1 tablet (1,000 mg total) by mouth in the morning and 1 tablet (1,000 mg total) in the evening. Take with meals. Taking ACCU-CHEK GUIDE ME GLUCOSE MTR misc USE DAILY OR DIRECTED FOR MONITORING OF DIABETES. ACCU-CHEK GUIDE TEST STRIPS strip USE DAILY ACCU-CHEK SOFTCLIX LANCETS lancets USE TO TEST DAILY Past medical history: Past Medical History: Diagnosis Date Diabetes mellitus type 2, controlled ([facility]) DVT (deep venous thrombosis) ([facility]) GERD (gastroesophageal reflux disease) Hyperlipidemia Hypertension ICH (intracerebral hemorrhage) ([facility]) 06/04/2025 Osteoarthritis Past surgical history: Past Surgical History: Procedure Laterality Date TONSILLECTOMY TOTAL HIP ARTHROPLASTY 06/2010 Family history: Hefamily history includes Heart attack in his father; Leukemia in his mother; Lymphoma in his mother; Pancreatic cancer in his father. Allergies: Hehas no known allergies. Social history: Social History Socioeconomic History Marital status: Spouse name: Not on file Number of children: Not on file Years of education: Not on file Highest education level: Not on file Occupational History Not on file Tobacco Use Smoking status: Every Day Current packs/day: 1.00 Average packs/day: 1 pack/day for 52.8 years (52.8 ttl pk-yrs) Types: Cigarettes Start date: 1972 Smokeless tobacco: Never Substance and Sexual Activity Alcohol use: Yes Drug use: Never Sexual activity: Not on file Other Topics Concern Not on file Social History Narrative Not on file Social Drivers of Health Financial Resource Strain: Not on file Food Insecurity: No Food Insecurity (06/05/2025) Hunger Screening Food Insecurity - Worry: Never True Food Insecurity - Inability: Never True Transportation Needs: No Transportation Needs (06/05/2025) PRAPARE - Transportation Lack of Transportation (Medical): No Lack of Transportation (Non-Medical): No Physical Activity: Not on file Stress: Not on file Social Connections: Not on file Interpersonal Safety: Patient Unable To Answer (06/05/2025) Humiliation, Afraid, Rape, and Kick questionnaire Fear of Current or Ex-Partner: Patient unable to answer Emotionally Abused: Patient unable to answer Physically Abused: Patient unable to answer Sexually Abused: Patient unable to answer Housing Instability: Low Risk (06/05/2025) Housing Instability Housing Instability: No Physical exam: Vital Signs: Blood pressure 159/66, pulse 83, temperature 36.8 ??C (98.3 ??F), temperature source Oral, resp. rate 24, height 182.9 cm (6'), weight 116.3 kg (256 lb 6.3 oz), SpO2 94%. Respiratory Source: O2 Device: Nasal cannula Admission Weight: Weight: 117.3 kg (258 lb 9.6 oz) NIHSS: 1a Level of consciousness: 1=not alert but arousable by minor stimulation to obey, answer or respond 1b. LOC questions: 1=Performs one task correctly 1c. LOC commands: 1=Performs one task correctly 2. Best Gaze: 0=normal 3. Visual: 1=Partial hemianopia 4. Facial Palsy: 0=Normal symmetric movement 5a. Motor left arm: 0=No drift, limb holds 90 (or 45) degrees for full 10 seconds 5b. Motor right arm: 0=No drift, limb holds 90 (or 45) degrees for full 10 seconds 6a. motor left le=Drift, limb holds 90 (or 45) degrees but drifts down before full 10 seconds: does not hit bed 6b Motor right le=Drift, limb holds 90 (or 45) degrees but drifts down before full 10 seconds: does not hit bed 7. Limb Ataxia: 1=Present in one limb 8. Sensory: 0=Normal; no sensory loss 9. Best Language: 1=Mild to moderate aphasia; some obvious loss of fluency or facility of comprehension without significant limitation on ideas expressed or form of expression 10. Dysarthria: 1=Mild to moderate, patient slurs at least some words and at worst, can be understood with some difficulty 11. Extinction and Inattention: 0=No abnormality Total: 9 Labs/Imaging: Objective Lab work/Imaging: Lab Results Component Value Date HGBA1C 8.3 (H) 06/07/2025 CALCIUM 9.0 06/09/2025 K 3.9 06/09/2025 CO2 23 06/09/2025 BUN 20 06/09/2025 CREATININE 1.47 (H) 06/09/2025 Lab Results Component Value Date WBC 5.1 06/09/2025 HGB 12.8 (L) 06/09/2025 MCV 92 06/09/2025 PLT 186 06/09/2025 Lab Results Component Value Date INR 1.5 (H) 06/04/2025 No results found for: LDL , CHOLESTEROLT Imaging: X-ray abdomen NG Tube placement 1 view Result Date: 06/09/2025 EXAM: XR ABD NG TUBE PLACEMENT 1 VIEW CLINICAL INFORMATION: NG placement. COMPARISON: 06/08/2025 FINDINGS: There is a feeding tube with the tip extending into the stomach. The visualized lungs are well aerated. There are no focal consolidations. IMPRESSION: Feeding tube tip in stomach. Finalized by Alexis Sánchez MD on 06/09/2025 4:53 AM Vas venous duplex lwr bilateral Result Date: 06/08/2025 Right: Portable lower extremity deep vein thrombosis (DVT) exam performed. Common femoral, femoral,popliteal and deep calf muscle veins are compressible without intraluminal content. Spontaneous pulsatile common femoral, femoral and popliteal spectral Doppler signals. Evaluation of superficial veins was not performed. Left: Portable lower extremity deep vein thrombosis (DVT) exam performed. Minimally dilated partially compressible popliteal, posterior tibial and peroneal veins with isoechoic intraluminal content andspontaneous spectral Doppler signals. Common femoral, femoral and deep calf muscle veins are compressible without intraluminal content. Spontaneous puldatile common femoral, andfemoral spectral Doppler signals. Evaluation of superficial veins was not performed. General: In-patient, bedside examination. Recommendations: Any questions prior to finalization, please call the reading physician during normal business hours at the phone number beside their name. Echo complete W/ contrast Result Date: 06/08/2025 Left Ventricle: Left ventricle appears normal in size. Systolic function is normal with an ejectionfraction of 55-60%. X-ray abdomen NG Tube placement 1 view Result Date: 06/08/2025 XR ABD NG TUBE PLACEMENT 1 VIEW Clinical history:ng placement enteric catheter placement and verification Comparison: 06/08/2025 Impression: Enteric catheter tip in the expected location of the proximal stomach. Finalized by Peter Sarabia MD on 06/08/2025 12:47 PM Assessment: 70 years old male with past medical history of hypertension, hyperlipidemia, diabetes, obesity, recent DVT (on Eliquis) who had an episode of fall 3 days ago. Later on, the patient had an acute onsetof confusion earlier this morning and was taken to an outside hospital. CT head showed intraparenchymal hemorrhage and therefore the patient was transferred to [facility] for further workup. On examination, the patient appears confused but no significant motor deficits at this time. MRI brain on 06/07: redemonstrated right thalamic hematoma with intraventricular extension Impression: R IPH with intra-ventricular extension, likely 2/2 HTN (ICH score 2) Plan: - Continue care in the intensive care unit with stroke service. - On cardene, nephrology on board for blood pressure medication adjustments. - UA positive for LE, will continue ceftriaxone. - Considering patient is chronic alcoholic and slow in communication, continue thiamine 500mg TID. - vEEG discontinued on 06/06. Levetiracetam levels therapeutic. - Consulted nephrology and Urology for BALJIT on CKD in the setting of bilateral hydronephrosis, appreciate recommendations and management. - Consulted vascular surgery for DVT management, recommended DVT prophylax - NG tube was placed on 06/06 - Currently on home lisinopril 40 mg for better blood pressure control. - Currently on Keppra due to provoked seizure at the outside hospital. Complete a 7 day course. - Target SBP 130-150. PRN Hydralazine and labetalol - Will need outpatient evaluation for SOFIA. - Code status: Full - Dispo: TBD - DVT px: Heparin 5000U TID Staffed with: Dr. Monika Cuenca MD PGY-3 Neurology Resident 06/09/25 9:20 AM Cosigned by Patricia Mcclellan MD at 06/20/2025 12:21 AM EDT Associated attestation - Patricia Mcclellan MD - 06/20/2025 12:21 AM EDT ?Attending?Attestation: ?I saw the patient. I performed the critical/dill portions of the service.? I was directly involved in the management and treatment plan of the patient.? I reviewed the residents' notes. ?Additional Notes/Findings: None. ?The clinical encounter comprised of: The patient is being evaluated for stroke and is at risk for neurological deterioration. Preparing to see the patient (e.g., review of tests) Obtaining and/or reviewing separately obtained history Performing a medically appropriate examination and/or evaluation Counseling and educating the patient/family/caregiver Documenting clinical information in the electronic or other health record Independently interpreting results (not separately reported) and communicating results to the patient/family/caregiver Care coordination (not separately reported) ? Patricia Mcclellan MD Vascular Neurologist [facility] Neurology ([facility])? Important Notice:??This note was created with the assistance of a speech recognition program.? While intending to generate a timely document that accurately reflects the content of the encounter, no guarantee can be provided that every grammatical or spelling mistake has been or will be identified or corrected.? Thank you for your understanding. * Adan Plasencia MD - 06/09/2025 7:06 AM EDT Images from the original note were not included. Nephrology Daily Progress Note INTERVAL HISTORY: Sleepy, opens his eyes, in no apparent distress. Continues to be on Cardene drip. VITAL SIGNS TREND: Vitals: 06/09/25 0300 06/09/25 0400 06/09/25 0500 06/09/25 0600 BP: 144/71 146/82 144/78 141/80 Pulse: 78 82 90 83 Resp: 20 17 16 24 Temp: 36.8 ??C (98.3 ??F) TempSrc: Oral SpO2: 93% 92% 94% 94% Weight: Height: INTAKE/OUTPUT: Intake/Output Summary (Last 24 hours) at 06/09/2025 0706 Last data filed at 06/09/2025 0600 Gross per 24 hour Intake 3347 ml Output 2005 ml Net 1342 ml No intake/output data recorded. WEIGHT: Last 3 Weight Readings 06/07/25 0500 06/08/25 0100 06/09/25 0000 Weight: 115.9 kg (255 lb 8.2 oz) 113.9 kg (251 lb 1.7 oz) 116.3 kg (256 lb 6.3 oz) PHYSICAL EXAM: Blood pressure 141/80, pulse 83, temperature 36.8 ??C (98.3 ??F), temperature source Oral, resp. rate 24, height 182.9 cm (6'), weight 116.3 kg (256 lb 6.3 oz), SpO2 94%. Temp: [36.8 ??C (98.3 ??F)-37.1 ??C (98.8 ??F)] 36.8 ??C (98.3 ??F) Pulse: [72-92] 83 Resp: [14-25] 24 BP: (123-158)/(67-113) 141/80 SpO2: [90 %-96 %] 94 % O2 Device: Nasal cannula O2 Flow Rate (L/min): [4 L/min] 4 L/min General appearance: Continues to be encephalopathic in no apparent distress. HEENT: no JVD, no lymphadenopathy. Heart exam: normal S1-S2 Lungs: clear to auscultation bilaterally Abdomen: soft, no tenderness, no guarding, positive bowel sounds Extremities: no edema Vascular: adequate pulses and no carotid bruits. Musculoskeletal: no joint tenderness or swelling. LABORATORY EVALUATION: Results from last 7 days Lab Units 06/09/25 0316 06/08/25 0249 06/07/25 1227 06/07/25 0407 06/06/25 0652 06/05/25 1445 06/05/25 0310 06/04/25 1958 06/04/25 1345 SODIUM mmol/L 146 143 -- 141 141 -- 136 < > 135 POTASSIUM mmol/L 3.9 3.6 3.6 3.5 3.5 < > 3.3* < > 3.4* CHLORIDE mmol/L 115* 111* -- 108 107 -- 102 < > 99 CO2 mmol/L 23 25 -- 24 23 -- 26 < > 24 ANION GAP mmol/L 8 7 -- 9 11 -- 8 < > 12 BUN mg/dL 20 18 -- 16 13 -- 13 < > 12 CREATININE mg/dL 1.47* 1.43* -- 1.49* 1.43* -- 1.44* < > 1.31* CALCIUM mg/dL 9.0 9.0 -- 9.1 8.6 -- 8.7 < > 8.9 MAGNESIUM mg/dL -- -- -- -- -- -- -- -- 1.9 < > = values in this interval not displayed. Results from last 7 days Lab Units 06/09/2531506/08/2524806/07/25224606/07/25162006/07/2540606/06/2565106/05/25 0310 PROTEIN TOTAL g/dL 5.8* 6.1 -- -- 6.4 6.2 6.1 ALBUMIN g/dL 3.2 3.3 -- -- 3.5 3.4 3.3 AST U/L 14 22 -- -- 17 16 15 ALT U/L 6 8 -- -- 7 8 7 BILIRUBIN, TOTAL mg/dL 0.5 0.6 -- -- 0.7 0.7 0.6 BILIRUBIN URINE -- -- Negative Negative -- -- -- ALK PHOS U/L 58 56 -- -- 58 56 58 Results from last 7 days Lab Units 06/09/2531506/08/2524806/07/25199906/07/2540606/06/2565106/05/25 0310 WBC x10E9/L 5.1 5.8 -- 4.9 4.3 4.4 HEMOGLOBIN g/dL 12.8* 13.3 13.1 13.5 13.7 13.3 HEMATOCRIT % 37.2* 39.0 38.1* 38.9* 39.2 37.3* PLATELETS X10E9/L 186 189 -- 211 191 202 @RESUFAST(IRON,TIBC,FERRITIN,IRONSAT,FOLATE,[id number]))@ Results from last 7 days Lab Units 06/09/25 0316 06/08/25 0249 06/07/25 0407 06/06/25 0652 06/05/25 1552 BEDSIDE GLUCOSE mg/dL -- -- -- -- 145* GLUCOSE mg/dL 214* 162* 171* 145* -- Results from last 7 days Lab Units 06/08/25 0249 CPK ISOENZYMES U/L 123 Results from last 7 days Lab Units 06/07/25 0407 BNP pg/mL 163* CURRENT MEDICATIONS: carvediloL, 12.5 mg, oral, BID cefTRIAXone (ROCEPHIN) IV, 1,000 mg, intravenous, Q24H heparin (porcine), 5,000 Units, subcutaneous, Q8H CATRINA levETIRAcetam, 750 mg, intravenous, Q12H lisinopriL, 40 mg, nasogastric, Daily thiamine (B-1) 500 mg in sodium chloride 0.9 % 50 mL IVPB, 500 mg, intravenous, TID PROBLEM LIST: Chronic kidney disease stage IIIA: CT scan of abdomen pelvis with contrast on 06/04/2025 showed cortical scarring with significant caliectasis and hydronephrosis right ureter is dilated down to the urinary bladder. Cortical scarring. Left kidney significant hydronephrosis and caliectasis no discrete cortical scarring. Renal ultrasound showed right hydronephrosis and mild left hydronephrosis. Urine protein to creatinine ratio is 1 g/g. Hepatitis panel and HIV are negative C3 is normal. C4 is on the high side which is 53. Rheumatoid factor is normal. Dqwq-nwtskc-zrhyojvt DNA is negative. LUIZA isnegative. Glomerular basement membrane antibodies are negative. SPEP is pending. Anca was negative. 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 IMPRESSION: 1. Chronic kidney disease stage IIIA: Creatinine continues to be relatively stable. 2. Bilateral hydronephrosis with cortical scarring of both kidneys. Status post Mayo catheter placement. Urology is following. Repeat renal ultrasound revealed improvement in hydronephrosis 3. 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 Neurology is following. 4. Hypertensive emergency: Continues to be on a Cardene drip. On carvedilol. On lisinopril. 5. Volume status: He does have some trace edema. Chest x-ray was ordered. IV Lasix was orders. PLAN: 1. Increase carvedilol for better blood pressure control 2. Continue lisinopril 3. Add amlodipine for better blood pressure control 4. Continue to wean Cardene drip as tolerated 5. Continue to follow electrolytes and replace per sliding scale as needed 6. Chest x-ray for hypoxia 8. Start gentle diuresis with IV Lasix given hypoxia and pedal edema. 9. Add potassium and magnesium supplementation 10. Reassess blood pressure in a.m. 11. Reassess volume status in a.m. Discussed with his nurse in person at the bedside Adan Plasencia M.D. For questions please call: Answering Service at [phone] Or Office at [phone] This note was created with the assistance of a speech-recognition program. Although the intention is to generate a document that actually reflects the content of the visit, no guarantees can be provided that every mistake has been identified and corrected by editing. * Alphonse Cuenca MD - 06/08/2025 1:33 PM EDT Neurovascular / Interventional neurology Intraparenchymal Hemorrhage Progress Note Date of admission 06/04/2025 5:25 PM PCP: SIENNA BARRIENTOS Reason of admission: IPH Deficit: AMS Last known well: Unclear, some time on 06/03/25 Patient seen at: ED Initial NIHSS: 9 Premorbid mRS: 0 Initial imaging: R Thalamic IPH with IVH ICH Score: 2 Initial BP reported: 134/83 Interval: Patient was seen and examined at bedside this morning. Blood pressure stable overnight, Na 143, Cr 1.43, urinalysis positive for hematuria and trace leukocyte esterase. Elevated BNP at 163. Ultrasound abdomen shows improving hydronephrosis with Urology on board. Pending lower extremity venous duplex. Subjective: Gianni Babin is a 70 y.o. male who initially presented to an outside hospital and thereafter was transferred to [facility] via air. Past medical history significant for hypertension, DM, HLD,Obesity, DM2, recent DVT on Eliquis. Per chart review, the patient was initially taken to an outside hospital ED by EMS for evaluation of altered mental status. The patient was not aware of where he was, what year it was or who the president was. Imaging studies were done at the outside hospital including CT brain which showed 2.3 cm right thalamic hemorrhage with intraventricular extension. He was on Eliquis due to recent DVT and started on Eliquis. In the ED Kcentra was given for reversal of Eliquis. He was also given Keppra 2g at the outside hospital and started on Cardene infusion. The patient was accepted by the trauma service and transferred to [facility]. Upon arrival to [facility] ED, vascular neurology consulted. Upon my evaluation the patient is currently on room air. He appears to be confused, answering questions but incorrectly. He is able to follow commands intermittently. The patient has stable blood pressure, currently 119/80. According to the family he had an episode of fall 3 days back. However, themain onset of confusion was this morning. Past medical history: DVT on Eliquis, HTN, HLD, Obesity, DM2 Home medications: Eliquis, Aspirin, Lipitor, Lisinopril, Metformin Social history: Daily alcohol drinker, chronic smoking Home medications: Medications Prior to Admission Medication Sig Dispense Refill Last Dose/Taking aspirin 81 mg Take 1 tablet (81 mg total) by mouth in the morning. Taking atorvastatin (LIPITOR) 20 mg tablet Take 1 tablet (20 mg total) by mouth every morning. TAKE 1 TABLET (20 MG) BY MOUTH IN THE MORNING Taking ELIQUIS 5 mg tablet Take 1 tablet (5 mg total) by mouth in the morning and 1 tablet (5 mg total) before bedtime. Taking fenofibrate (LOFIBRA) 160 mg tablet Take 1 tablet (160 mg total) by mouth in the morning. Taking lisinopriL (PRINIVIL,ZESTRIL) 40 mg tablet Take 1 tablet (40 mg total) by mouth in the morning. Taking magnesium aspart,citrate,oxide (TRIPLE MAGNESIUM COMPLEX) 400 mg magnesium capsule Take 400 mg by mouth in the morning. Taking metFORMIN (GLUCOPHAGE) 1000 mg tablet Take 1 tablet (1,000 mg total) by mouth in the morning and 1 tablet (1,000 mg total) in the evening. Take with meals. Taking ACCU-CHEK GUIDE ME GLUCOSE MTR misc USE DAILY OR DIRECTED FOR MONITORING OF DIABETES. ACCU-CHEK GUIDE TEST STRIPS strip USE DAILY ACCU-CHEK SOFTCLIX LANCETS lancets USE TO TEST DAILY Past medical history: Past Medical History: Diagnosis Date Diabetes mellitus type 2, controlled ([facility]) DVT (deep venous thrombosis) ([facility]) GERD (gastroesophageal reflux disease) Hyperlipidemia Hypertension ICH (intracerebral hemorrhage) ([facility]) 06/04/2025 Osteoarthritis Past surgical history: Past Surgical History: Procedure Laterality Date TONSILLECTOMY TOTAL HIP ARTHROPLASTY 06/2010 Family history: Hefamily history includes Heart attack in his father; Leukemia in his mother; Lymphoma in his mother; Pancreatic cancer in his father. Allergies: Hehas no known allergies. Social history: Social History Socioeconomic History Marital status: Spouse name: Not on file Number of children: Not on file Years of education: Not on file Highest education level: Not on file Occupational History Not on file Tobacco Use Smoking status: Every Day Current packs/day: 1.00 Average packs/day: 1 pack/day for 52.8 years (52.8 ttl pk-yrs) Types: Cigarettes Start date: 1972 Smokeless tobacco: Never Substance and Sexual Activity Alcohol use: Yes Drug use: Never Sexual activity: Not on file Other Topics Concern Not on file Social History Narrative Not on file Social Drivers of Health Financial Resource Strain: Not on file Food Insecurity: No Food Insecurity (06/05/2025) Hunger Screening Food Insecurity - Worry: Never True Food Insecurity - Inability: Never True Transportation Needs: No Transportation Needs (06/05/2025) PRAPARE - Transportation Lack of Transportation (Medical): No Lack of Transportation (Non-Medical): No Physical Activity: Not on file Stress: Not on file Social Connections: Not on file Interpersonal Safety: Patient Unable To Answer (06/05/2025) Humiliation, Afraid, Rape, and Kick questionnaire Fear of Current or Ex-Partner: Patient unable to answer Emotionally Abused: Patient unable to answer Physically Abused: Patient unable to answer Sexually Abused: Patient unable to answer Housing Instability: Low Risk (06/05/2025) Housing Instability Housing Instability: No Physical exam: Vital Signs: Blood pressure 147/80, pulse 86, temperature 37.1 ??C (98.8 ??F), resp. rate 14, height 182.9 cm (6'), weight 113.9 kg (251 lb 1.7 oz), SpO2 93%. Respiratory Source: O2 Device: Nasal cannula Admission Weight: Weight: 117.3 kg (258 lb 9.6 oz) NIHSS: 1a Level of consciousness: 1=not alert but arousable by minor stimulation to obey, answer or respond 1b. LOC questions: 1=Performs one task correctly 1c. LOC commands: 1=Performs one task correctly 2. Best Gaze: 0=normal 3. Visual: 1=Partial hemianopia 4. Facial Palsy: 0=Normal symmetric movement 5a. Motor left arm: 0=No drift, limb holds 90 (or 45) degrees for full 10 seconds 5b. Motor right arm: 0=No drift, limb holds 90 (or 45) degrees for full 10 seconds 6a. motor left le=Drift, limb holds 90 (or 45) degrees but drifts down before full 10 seconds: does not hit bed 6b Motor right le=Drift, limb holds 90 (or 45) degrees but drifts down before full 10 seconds: does not hit bed 7. Limb Ataxia: 1=Present in one limb 8. Sensory: 0=Normal; no sensory loss 9. Best Language: 1=Mild to moderate aphasia; some obvious loss of fluency or facility of comprehension without significant limitation on ideas expressed or form of expression 10. Dysarthria: 1=Mild to moderate, patient slurs at least some words and at worst, can be understood with some difficulty 11. Extinction and Inattention: 0=No abnormality Total: 9 Labs/Imaging: Objective Lab work/Imaging: Lab Results Component Value Date HGBA1C 8.3 (H) 06/07/2025 CALCIUM 9.0 06/08/2025 K 3.6 06/08/2025 CO2 25 06/08/2025 BUN 18 06/08/2025 CREATININE 1.43 (H) 06/08/2025 Lab Results Component Value Date WBC 5.8 06/08/2025 HGB 13.3 06/08/2025 MCV 93 06/08/2025 PLT 189 06/08/2025 Lab Results Component Value Date INR 1.5 (H) 06/04/2025 No results found for: LDL , CHOLESTEROLT Imaging: X-ray abdomen NG Tube placement 1 view Result Date: 06/08/2025 XR ABD NG TUBE PLACEMENT 1 VIEW Clinical history:ng placement enteric catheter placement and verification Comparison: 06/08/2025 Impression: Enteric catheter tip in the expected location of the proximal stomach. Finalized by Peter Sarabia MD on 06/08/2025 12:47 PM X-ray abdomen NG Tube placement 1 view Result Date: 06/08/2025 History: NG tube placement Exam/Technique: Supine views of the abdomen were obtained. Comparison: 06/07/2025 Findings: A feeding tube is again seen with its tip just distal to the gastroesophageal junction. Advancement further the stomach is recommended. The visualized portions of the bowel gas pattern are nonspecific. IMPRESSION: Feeding tube has its tip just distal to the gastroesophageal junction and advancement further into the stomach is recommended. Finalized by Raghu Villegas MD on 06/08/2025 2:56 AM Ultrasound retroperitoneal complete with duplex Result Date: 06/07/2025 History: Acute renal failure Exam/Technique: Ultrasound of the kidneys with duplex Doppler. Comparison: Contrast-enhanced CT from 06/04/2025 Findings: On the right there is prominent dilatation of the extrarenal pelvis redemonstrated with just minimal calyceal dilatation. On the left there is very severe renal pelvis dilatation and mild dilatation of calyces. No focal renal lesions are displayed on either side with patient body habitus and positioning significantly compromising depiction of theright kidney.. The right kidney measures 11.2 centimeters in length , and the left kidney 12.7 centimeters. Resistive indices in the right kidney range from 0.57-0.62, and in the left kidney from 0.63-0.69 The urinary bladder is decompressed with a Mayo catheter in place. IMPRESSION: Mild right hydronephrosis and mild left hydronephrosis are decreased from the appearance on CT 3 days ago with significant dilatation of both extrarenal pelves remaining. Finalized by Mason Cruz MD on 06/07/2025 9:30 PM X-ray abdomen NG Tube placement 1 view Result Date: 06/07/2025 Portable upright single view abdomen dated 06/07/2025 at 2:28 PM INDICATION: NG tube placement. FINDINGS: Comparison is 06/06/2015. Feeding tube tip at the GE junction. IMPRESSION: 1. Feeding tube tip at the GE junction. Finalized by Mamie Nazario MD on 06/07/2025 2:32 PM Assessment: 70 years old male with past medical history of hypertension, hyperlipidemia, diabetes, obesity, recent DVT (on Eliquis) who had an episode of fall 3 days ago. Later on, the patient had an acute onsetof confusion earlier this morning and was taken to an outside hospital. CT head showed intraparenchymal hemorrhage and therefore the patient was transferred to [facility] for further workup. On examination, the patient is currently on room air, appears confused but no significant motor deficits at this time. MRI brain on 06/07: redemonstrated right thalamic hematoma with intraventricular extension Impression: R IPH with intra-ventricular extension, likely 2/2 HTN (ICH score 2) Plan: - Continue care in the intensive care unit with stroke service, possible transfer to floor tomorrowif stable. - UA positive for LE, will start ceftriaxone. - Considering patient is chronic alcoholic and slow in communication, will start thiamine 500mg TID. - vEEG discontinued on 06/06. Levetiracetam levels therapeutic. - Consulted nephrology and Urology for BALJIT on CKD in the setting of bilateral hydronephrosis, appreciate recommendations and management. - Consulted vascular surgery for DVT management, recommended DVT prophylax - NG tube was placed on 06/06 - Currently on home lisinopril 40 mg for better blood pressure control. - Currently on Keppra due to provoked seizure at the outside hospital. - Target SBP 130-150. PRN Hydralazine and labetalol - Follow up echocardiogram with bubble study - Code status: Full - Dispo: TBD - DVT px: Heparin 5000U TID Staffed with: Dr. Monika Cuenca MD PGY-3 Neurology Resident 06/08/25 1:35 PM Cosigned by Patricia Mcclellan MD at 06/20/2025 12:21 AM EDT Associated attestation - Patricia Mcclellan MD - 06/20/2025 12:21 AM EDT ?Attending?Attestation: ?I saw the patient. I performed the critical/dill portions of the service.? I was directly involved in the management and treatment plan of the patient.? I reviewed the residents' notes. ?Additional Notes/Findings: None. ?The clinical encounter comprised of: The patient is being evaluated for stroke and is at risk for neurological deterioration. Preparing to see the patient (e.g., review of tests) Obtaining and/or reviewing separately obtained history Performing a medically appropriate examination and/or evaluation Counseling and educating the patient/family/caregiver Documenting clinical information in the electronic or other health record Independently interpreting results (not separately reported) and communicating results to the patient/family/caregiver Care coordination (not separately reported) ? Patricia Mcclellan MD Vascular Neurologist [facility] Neurology ([facility])? Important Notice:??This note was created with the assistance of a speech recognition program.? While intending to generate a timely document that accurately reflects the content of the encounter, no guarantee can be provided that every grammatical or spelling mistake has been or will be identified or corrected.? Thank you for your understanding. * Ed Ortiz MD - 06/08/2025 12:22 PM EDT Images from the original note were not included. Nephrology Daily Progress Note INTERVAL HISTORY/History of present illness: Patient is sleepy. Confused PROBLEM LIST: Chronic kidney disease stage IIIA: CT scan of abdomen pelvis with contrast on 06/04/2025 showed cortical scarring with significant caliectasis and hydronephrosis right ureter is dilated down to the urinary bladder. Cortical scarring. Left kidney significant hydronephrosis and caliectasis no discrete cortical scarring. Renal ultrasound showed right hydronephrosis and mild left hydronephrosis. Urine protein to creatinine ratio is 1 g/g. Hepatitis panel and HIV are negative C3 is normal. C4 is on the high side which is 53. Rheumatoid factor is normal. Iiea-mdgwrm-yfdqcawx DNA is negative. LUIZA isnegative. Glomerular basement membrane antibodies are negative. SPEP is pending. Anca is pending. Right intraparenchymal hemorrhage with intraventricular extension Type 2 diabetes mellitus DVT on Eliquis GERD Hypertension Hyperlipidemia Osteoarthritis Total hip arthroplasty VITAL SIGNS TREND: Vitals: 06/08/25 0300 06/08/25 0400 06/08/25 0500 06/08/25 0600 BP: 139/64 145/71 (!) 138/93 136/80 Pulse: 82 89 87 84 Resp: 20 15 Temp: 37.1 ??C (98.7 ??F) TempSrc: Oral SpO2: 93% 94% 95% 95% Weight: Height: INTAKE/OUTPUT: Intake/Output Summary (Last 24 hours) at 06/08/2025 1222 Last data filed at 06/08/2025 0900 Gross per 24 hour Intake 4175.71 ml Output 1345 ml Net 2830.71 ml I/O this shift: In: - Out: 375 [Urine:375] WEIGHT: Wt Readings from Last 3 Encounters: 06/08/25 113.9 kg (251 lb 1.7 oz) 06/04/25 93 kg (205 lb) cefTRIAXone (ROCEPHIN) IV, 1,000 mg, intravenous, Q24H [START ON 06/09/2025] heparin (porcine), 5,000 Units, subcutaneous, Q8H CATRINA levETIRAcetam, 750 mg, intravenous, Q12H lisinopriL, 40 mg, nasogastric, Daily thiamine (B-1) 500 mg in sodium chloride 0.9 % 50 mL IVPB, 500 mg, intravenous, TID dextrose 5 % in water, 100 mL/hr niCARdipine, 2.5-15 mg/hr, Last Rate: 15 mg/hr (06/08/25 1004) PHYSICAL EXAM: Blood pressure 136/80, pulse 84, temperature 37.1 ??C (98.7 ??F), temperature source Oral, resp. rate 15, height 182.9 cm (6'), weight 113.9 kg (251 lb 1.7 oz), SpO2 95%. Temp: [36.8 ??C (98.2 ??F)-37.1 ??C (98.7 ??F)] 37.1 ??C (98.7 ??F) Pulse: [81-102] 84 Resp: [7-22] 15 BP: (136-155)/(64-93) 136/80 SpO2: [90 %-95 %] 95 % O2 Device: Nasal cannula O2 Flow Rate (L/min): [2 L/min-3 L/min] 3 L/min General appearance: alert in no apparent distress. HEENT: no JVD, no carotid bruits, no lymphadenopathy. Cardiovascular: normal S1-S2 Respiratory: clear to auscultation bilaterally Gastrointestinal: soft, no tenderness, no guarding, positive bowel sounds Musculoskeletal: no edema Skin : No Rash. Neuro: AAOX3 , grossly intact. LABORATORY EVALUATION: Results from last 7 days Lab Units 06/08/2524806/07/25122606/07/2540606/06/2552 06/05/25144406/05/2530906/04/25195706/04/25 1345 SODIUM mmol/L 143 -- 141 141 -- 136 134 135 POTASSIUM mmol/L 3.6 3.6 3.5 3.5 3.3* 3.3* 3.3* 3.4* CHLORIDE mmol/L 111* -- 108 107 -- 102 100 99 CO2 mmol/L 25 -- 24 23 -- 26 25 24 BUN mg/dL 18 -- 16 13 -- 13 12 12 CREATININE mg/dL 1.43* -- 1.49* 1.43* -- 1.44* 1.42* 1.31* CALCIUM mg/dL 9.0 -- 9.1 8.6 -- 8.7 8.8 8.9 MAGNESIUM mg/dL -- -- -- -- -- -- -- 1.9 Results from last 7 days Lab Units 06/08/2524806/07/25199906/07/25 0407 06/06/2552 06/05/2530906/04/251957 WBC x10E9/L 5.8 -- 4.9 4.3 4.4 5.9 HEMOGLOBIN g/dL 13.3 13.1 13.5 13.7 13.3 13.7 HEMATOCRIT % 39.0 38.1* 38.9* 39.2 37.3* 40.5 PLATELETS X10E9/L 189 -- 211 191 202 231 Results from last 7 days Lab Units 06/08/25 0249 06/07/25 0407 06/06/25 0652 06/05/25 0310 06/04/25 1958 PROTEIN TOTAL g/dL 6.1 6.4 6.2 6.1 6.3 ALBUMIN g/dL 3.3 3.5 3.4 3.3 3.4 AST U/L 22 17 16 15 17 ALT U/L 8 7 8 7 9 Results from last 7 days Lab Units 06/08/25 0249 CPK ISOENZYMES U/L 123 X-ray abdomen NG Tube placement 1 view Result Date: 06/08/2025 History: NG tube placement Exam/Technique: Supine views of the abdomen were obtained. Comparison: 06/07/2025 Findings: A feeding tube is again seen with its tip just distal to the gastroesophageal junction. Advancement further the stomach is recommended. The visualized portions of the bowel gas pattern are nonspecific. IMPRESSION: Feeding tube has its tip just distal to the gastroesophageal junction and advancement further into the stomach is recommended. Finalized by Raghu Villegas MD on 06/08/2025 2:56 AM Ultrasound retroperitoneal complete with duplex Result Date: 06/07/2025 History: Acute renal failure Exam/Technique: Ultrasound of the kidneys with duplex Doppler. Comparison: Contrast-enhanced CT from 06/04/2025 Findings: On the right there is prominent dilatation of the extrarenal pelvis redemonstrated with just minimal calyceal dilatation. On the left there is very severe renal pelvis dilatation and mild dilatation of calyces. No focal renal lesions are displayed on either side with patient body habitus and positioning significantly compromising depiction of theright kidney.. The right kidney measures 11.2 centimeters in length , and the left kidney 12.7 centimeters. Resistive indices in the right kidney range from 0.57-0.62, and in the left kidney from 0.63-0.69 The urinary bladder is decompressed with a Mayo catheter in place. IMPRESSION: Mild right hydronephrosis and mild left hydronephrosis are decreased from the appearance on CT 3 days ago with significant dilatation of both extrarenal pelves remaining. Finalized by Mason Cruz MD on 06/07/2025 9:30 PM X-ray abdomen NG Tube placement 1 view Result Date: 06/07/2025 Portable upright single view abdomen dated 06/07/2025 at 2:28 PM INDICATION: NG tube placement. FINDINGS: Comparison is 06/06/2015. Feeding tube tip at the GE junction. IMPRESSION: 1. Feeding tube tip at the GE junction. Finalized by Mamie Nazario MD on 06/07/2025 2:32 PM IMPRESSION: Chronic kidney disease stage IIIA: Creatinine is relatively stable. Bilateral hydronephrosis with cortical scarring on both kidneys on the CAT scan of abdomen pelvis. Status post Mayo catheter placement. Urology has been consulted. Renal ultrasound showing improvement in the hydronephrosis Right intraparenchymal hemorrhage with intraventricular extension likely due to uncontrolled hypertension Hypertension: Blood pressure is currently at goal. We will pressure is around 130-150. Patient is requiring Cardene drip Volume status he looks euvolemic Nutrition on tube feeding Plan : Add Coreg Follow-up rest of serology workup. Strict Is&Os. Discussed with the patient's Ed Ortiz M.D. [facility] Thank you for your consultation and allowing us to participate in the care of Gianni Montelongo please do not hesitate to call us with any questions at: Office: [phone] Office Answering Service: [phone] Please feel free to contact me through [email or web address] Secure chat during the daytime hours, if no response after 5 minutes then call the answering service. This note was created with the assistance of a speech-recognition program. Although the intention is to generate a document that actually reflects the content of the visit, no guarantees can be provided that every mistake has been identified and corrected by editing. * BRANDON Barahona - 06/08/2025 11:19 AM EDT NUTRITION ADULT FOLLOW UP NUTRITION ASSESSMENT: Patient History: Brief Clinical Summary: Pt admitted for ICH. Not ready for oral feedings per BLOCK HACKER eval today. Past medical history significant for hypertension, DM, HLD, Obesity, DM2, recent DVT on Eliquis. Biochemical Data, Medical Tests, and Procedures: 06/06- failed BSSE 06/08- BLOCK HACKER still with NPO recs Labs: Results from last 3 days Lab Units 06/08/2524806/07/25122606/07/2540606/06/25 0652 SODIUM mmol/L 143 -- 141 141 POTASSIUM mmol/L 3.6 3.6 3.5 3.5 CHLORIDE mmol/L 111* -- 108 107 CO2 mmol/L 25 -- 24 23 BUN mg/dL 18 -- 16 13 CREATININE mg/dL 1.43* -- 1.49* 1.43* CALCIUM mg/dL 9.0 -- 9.1 8.6 ALBUMIN g/dL 3.3 -- 3.5 3.4 ALK PHOS U/L 56 -- 58 56 ALT U/L 8 -- 7 8 AST U/L -- 17 Results from last 7 days Lab Units 06/08/25 0249 06/07/25 0407 06/06/25 0652 06/05/25 1552 06/05/25 1158 06/05/25 0820 06/05/25 0310 BEDSIDE GLUCOSE mg/dL -- -- -- 145* 140* 147* -- GLUCOSE mg/dL 162* 171* 145* -- -- -- 163* Results from last 3 days Lab Units 06/08/25 02406/07/25199906/07/25 04006/06/25 0652 WBC x10E9/L 5.8 -- 4.9 4.3 HEMOGLOBIN g/dL 13.3 13.1 13.5 13.7 HEMATOCRIT % 39.0 38.1* 38.9* 39.2 PLATELETS X10E9/L 189 -- 211 191 MCV fL 93 -- 92 92 No data from last 3 days. No data from last 3 days. Results from last 3 days Lab Units 06/08/2524806/07/257 06/07/25 1621 BILIRUBIN, TOTAL mg/dL 0.6 -- -- BILIRUBIN URINE -- Negative Negative Lab Results Component Value Date HGBA1C 8.3 (H) 06/07/2025 Lab Results Component Value Date IRON 55 06/07/2025 TIBC 314 06/07/2025 FERRITIN 127 06/07/2025 Lab Results Component Value Date IRONSAT 18 (L) 06/07/2025 Lab Results Component Value Date CHOL 155 06/05/2025 Lab Results Component Value Date CHDL 5.0 06/05/2025 Lab Results Component Value Date HDL 31 (L) 06/05/2025 Lab Results Component Value Date LDLCALC 77 06/05/2025 Lab Results Component Value Date TRIG 237 (H) 06/05/2025 Lab Results Component Value Date VERYLOWLIP 47 (H) 06/05/2025 Lab Results Component Value Date [id number] 274 06/07/2025 Lab Results Component Value Date FOLATE 11.1 06/07/2025 No results found for: VITD25 Comments (labs): reviewed Medications/ Parenteral: Current Facility-Administered Medications Medication Dose Route Frequency Provider Last Rate Last Admin calcium gluconate IVPB 1000 mg/50 mL (20 mg/mL premix) 1,000 mg intravenous PRN Alphonse Cuenca MD Or calcium gluconate IVPB 2000 mg/100 mL (20 mg/mL premix) 2,000 mg intravenous PRN Alphonse Cuenca MD Or calcium gluconate 3,000 mg in sodium chloride 0.9 % 100 mL IVPB 3,000 mg intravenous PRN Alphonse Cuenca MD cefTRIAXone (ROCEPHIN) 1,000 mg in sodium chloride 0.9 % 50 mL IVPB W/ADAPTER 1,000 mg intravenous Q24H Alphonse Cuenca MD dextrose (GLUTOSE) 40 % gel 15 g 15 g oral PRN Alphonse Cuenca MD dextrose 5 % (D5W) infusion 100 mL/hr intravenous Continuous PRN Alphonse Cuenca MD dextrose 50 % in water (D50W) 50% solution 25 mL 25 mL intravenous PRN Alphonse Cuenca MD glucagon HCL injection 1 mg 1 mg intramuscular PRN Alphonse Cuenca MD [START ON 06/09/2025] heparin (porcine) injection 5,000 Units 5,000 Units subcutaneous Q8H [facility] Alphonse Cuenca MD hydrALAZINE (APRESOLINE) injection 10 mg 10 mg intravenous Q4H PRN Alphonse Cuenca MD 10 mg at 06/05/25 1430 labetaloL (NORMODYNE,TRANDATE) injection 10 mg 10 mg intravenous Q5 Min PRN Alphonse Cuenca MD 10 mgat 06/06/25 0128 levETIRAcetam (KEPPRA) 750 mg in sodium chloride 0.9 % 107.5 mL IVPB 750 mg intravenous Q12H MD Brianna Stopped at 06/08/25 0251 lisinopriL (PRINIVIL,ZESTRIL) tablet 40 mg 40 mg nasogastric Daily Alphonse Cuenca MD 40 mg at 06/08/25 0936 magnesium sulfate IVPB 2000 mg/50 mL in iso-osmotic water (40 mg/mL premix) 2,000 mg intravenous PRN Alphonse Cuenca MD Or magnesium sulfate IVPB 4000 mg/100 mL in iso-osmotic water (40 mg/mL premix) 4,000 mg intravenous PRN Alphonse Cuenca MD niCARdipine (CARDENE-IV) infusion 40 mg/200 mL in iso-osmotic sodium chloride (0.2 mg/mL premix) 2.5-15 mg/hr intravenous Continuous Alphonse Cuenca MD 75 mL/hr at 06/08/25 1004 15 mg/hr at 06/08/25 1004 potassium chloride (K-TAB,KLOR-CON) CR tablet 20-50 mEq 20-50 mEq oral PRN Alphonse Cuenca MD Or potassium chloride (KAYCIEL) 20 mEq/15 mL solution 20-50 mEq 20-50 mEq oral PRN Alphonse Cuenca MD 30 mEq at 06/08/25 0935 potassium chloride IVPB 10 mEq/50 mL in water (0.2 mEq/mL premix) 10 mEq intravenous PRN Alphonse Cuenca MD Stopped at 06/05/25 1829 Or potassium chloride IVPB 10 mEq/100 mL in water (0.1 mEq/mL premix) 10 mEq intravenous PRN Alphonse Cuenca MD Stopped at 06/06/25 0115 sodium phosphate 20 mmol in sodium chloride 0.9 % 250 mL IVPB 20 mmol intravenous PRN Alphonse Cuenca MD Or sodium phosphate 20 mmol in sodium chloride 0.9 % 100 mL IVPB 20 mmol intravenous PRN Alphonse Cuenca MD Or sod phos di, mono-K phos mono (K-PHOS NEUTRAL) 250 mg tablet 2 tablet 2 tablet oral PRN Alphonse Cuenca MD thiamine (B-1) 500 mg in sodium chloride 0.9 % 50 mL IVPB 500 mg intravenous TID Alphonse Cuenca MD Nutrition Focused Physical Findings no BM since [employer] Skin (per nursing flow sheets): Skin Color: [place]; Pale (06/08/25399) Skin Temp: Warm; Dry (06/08/25399) Wound (per nursing flow sheets): Gastrointestinal (per nursing flow sheets): Abdomen Assessment: Distended; Obese (06/08/25399) RUQ Bowel Sounds: Present (06/08/25399) LUQ Bowel Sounds: Present (06/08/25399) RLQ Bowel Sounds: Present (06/08/25399) LLQ Bowel Sounds: Present (06/08/25399) Edema (per nursing flow sheets): RLE Edema: +2 (06/08/25399) LLE Edema: +2 (06/08/25399) Intake/ Output Last 24 hrs: Intake/Output Summary (Last 24 hours) at 06/08/2025 1119 Last data filed at 06/08/2025 0900 Gross per 24 hour Intake 4175.71 ml Output 1345 ml Net 2830.71 ml Food/Nutrition Related History: Diet/ Nutrition Order Review: Dietary Orders (From admission, onward) Start Ordered 06/06/25 1800 Free water 4 times daily Question: Amount in mL Answer: 200 06/06/25 1314 06/06/25 1313 Tube feeding No tray-Continuous Tube feeding No Tray-Continuous; Nasogastric or Oral gastric feeding tube; Standard 1.5 kcal; 25 (once enterla access placement is confirmed); 10; Every 6 hours; 65 Continuous Comments: Osmolite 1.5 References: Formulary Card Question Answer Comment Diet Type: Tube feeding No Tray-Continuous Tube Type: Nasogastric or Oral gastric feeding tube Tube Feeding Formula: Standard 1.5 kcal Tube Feeding Start Rate (mL/hour): 25 once enterla access placement is confirmed Increase Rate by (mL/hour): 10 Frequency of Rate increase: Every 6 hours Goal Rate (mL/hour): 65 06/06/25 1314 Inpatient Nutrition Support History: 06/06- TF started TF: Osmolite 1.5 at 65 ml/hr to provide 2340kcal 97g protein 1189ml free water plus 800ml free water flushes for 1989ml/day 100% RDI Anthropometrics: Ht Readings from Last 1 Encounters: 06/04/25 182.9 cm (6') Last 3 Weight Readings 06/06/25 0000 06/07/25 0500 06/08/25 0100 Weight: 117.4 kg (258 lb 13.1 oz) 115.9 kg (255 lb 8.2 oz) 113.9 kg (251 lb 1.7 oz) Admit Weight: 117.3kg (Bed Scale, 06/04) [place] Body Weight: 80.9kg Weight Changes: - Admit Body Mass Index: 35.1 kg/m??. Current Body Mass Index: Body mass index is 34.06 kg/m??. Comparative Standards: Estimated Energy Needs: 6162-1491 kcals daily. Method and weight used: 25-32 kcal/kg ibw Estimated Protein Needs: 97-160 grams daily. Method and weight used: 1.2-2g protein/kg ibw Estimated Fluid Needs: 1262-0783 ml daily. Method weight used: 1 ml/kg/kcal Comments: general needs Malnutrition Status: Malnutrition Present: not with information reviewed NUTRITION DIAGNOSIS: Intake Diagnosis: Inadequate oral intake (NI 2.1) related to neurological event as evidenced by ICHand BLOCK HACKER BSSE rec pt NPO. NUTRITION INTERVENTIONS: Enteral & parenteral nutrition:continue Osmolite 1.5 25ml/hr with goal rate of 65ml/hr for 2340kcal and 97g protein, 1189ml free water Nutrition related medication management: continue free water flushes of 200ml 4x/day for [id number]. Coordination of nutrition care: contacted RN re consult. GOAL(S): pt to receive estimated nutrition needs NUTRITION MONITORING AND EVALUATION: I/O,wts, labs TF tolerance, POC Pippa Cowart R.D,L.D. Clinical dietitian Patient Touch extension:[phone] Direct Dial phone number: [phone] 06/08/25 11:29 AM * Mable Butt MD - 06/07/2025 7:14 AM EDT Neurovascular / Interventional neurology Intraparenchymal Hemorrhage Progress Note Date of admission 06/04/2025 5:25 PM PCP: SIENNA BARRIENTOS Reason of admission: IPH Deficit: AMS Last known well: Unclear, some time on 06/03/25 Patient seen at: ED Initial NIHSS: 9 Premorbid mRS: 0 Initial imaging: R Thalamic IPH with IVH ICH Score: 2 Initial BP reported: 134/83 Interval: Patient was seen and examined at bedside this morning. His blood pressure has been in the 130-150, but overall more stable than yesterday. He was started on lisinopril 40 mg yesterday. No acute events overnight. Creatinine is stable at 1.49. He has been sleepy and has thick sputum and has been gurgling. Subjective: Gianni Babin is a 70 y.o. male who initially presented to an outside hospital and thereafter was transferred to [facility] via air. Past medical history significant for hypertension, DM, HLD,Obesity, DM2, recent DVT on Eliquis. Per chart review, the patient was initially taken to an outside hospital ED by EMS for evaluation of altered mental status. The patient was not aware of where he was, what year it was or who the president was. Imaging studies were done at the outside hospital including CT brain which showed 2.3 cm right thalamic hemorrhage with intraventricular extension. He was on Eliquis due to recent DVT and started on Eliquis. In the ED Kcentra was given for reversal of Eliquis. He was also given Keppra 2g at the outside hospital and started on Cardene infusion. The patient was accepted by the trauma service and transferred to [facility]. Upon arrival to [facility] ED, vascular neurology consulted. Upon my evaluation the patient is currently on room air. He appears to be confused, answering questions but incorrectly. He is able to follow commands intermittently. The patient has stable blood pressure, currently 119/80. According to the family he had an episode of fall 3 days back. However, themain onset of confusion was this morning. Past medical history: DVT on Eliquis, HTN, HLD, Obesity, DM2 Home medications: Eliquis, Aspirin, Lipitor, Lisinopril, Metformin Social history: Daily alcohol drinker, chronic smoking Home medications: Medications Prior to Admission Medication Sig Dispense Refill Last Dose/Taking aspirin 81 mg Take 1 tablet (81 mg total) by mouth in the morning. Taking atorvastatin (LIPITOR) 20 mg tablet Take 1 tablet (20 mg total) by mouth every morning. TAKE 1 TABLET (20 MG) BY MOUTH IN THE MORNING Taking ELIQUIS 5 mg tablet Take 1 tablet (5 mg total) by mouth in the morning and 1 tablet (5 mg total) before bedtime. Taking fenofibrate (LOFIBRA) 160 mg tablet Take 1 tablet (160 mg total) by mouth in the morning. Taking lisinopriL (PRINIVIL,ZESTRIL) 40 mg tablet Take 1 tablet (40 mg total) by mouth in the morning. Taking magnesium aspart,citrate,oxide (TRIPLE MAGNESIUM COMPLEX) 400 mg magnesium capsule Take 400 mg by mouth in the morning. Taking metFORMIN (GLUCOPHAGE) 1000 mg tablet Take 1 tablet (1,000 mg total) by mouth in the morning and 1 tablet (1,000 mg total) in the evening. Take with meals. Taking ACCU-CHEK GUIDE ME GLUCOSE MTR misc USE DAILY OR DIRECTED FOR MONITORING OF DIABETES. ACCU-CHEK GUIDE TEST STRIPS strip USE DAILY ACCU-CHEK SOFTCLIX LANCETS lancets USE TO TEST DAILY Past medical history: Past Medical History: Diagnosis Date Diabetes mellitus type 2, controlled ([facility]) DVT (deep venous thrombosis) ([facility]) GERD (gastroesophageal reflux disease) Hyperlipidemia Hypertension ICH (intracerebral hemorrhage) ([facility]) 06/04/2025 Osteoarthritis Past surgical history: Past Surgical History: Procedure Laterality Date TONSILLECTOMY TOTAL HIP ARTHROPLASTY 06/2010 Family history: Hefamily history includes Heart attack in his father; Leukemia in his mother; Lymphoma in his mother; Pancreatic cancer in his father. Allergies: Hehas no known allergies. Social history: Social History Socioeconomic History Marital status: Spouse name: Not on file Number of children: Not on file Years of education: Not on file Highest education level: Not on file Occupational History Not on file Tobacco Use Smoking status: Every Day Current packs/day: 1.00 Average packs/day: 1 pack/day for 52.8 years (52.8 ttl pk-yrs) Types: Cigarettes Start date: 1972 Smokeless tobacco: Never Substance and Sexual Activity Alcohol use: Yes Drug use: Never Sexual activity: Not on file Other Topics Concern Not on file Social History Narrative Not on file Social Drivers of Health Financial Resource Strain: Not on file Food Insecurity: No Food Insecurity (06/05/2025) Hunger Screening Food Insecurity - Worry: Never True Food Insecurity - Inability: Never True Transportation Needs: No Transportation Needs (06/05/2025) PRAPARE - Transportation Lack of Transportation (Medical): No Lack of Transportation (Non-Medical): No Physical Activity: Not on file Stress: Not on file Social Connections: Not on file Interpersonal Safety: Patient Unable To Answer (06/05/2025) Humiliation, Afraid, Rape, and Kick questionnaire Fear of Current or Ex-Partner: Patient unable to answer Emotionally Abused: Patient unable to answer Physically Abused: Patient unable to answer Sexually Abused: Patient unable to answer Housing Instability: Low Risk (06/05/2025) Housing Instability Housing Instability: No Physical exam: Vital Signs: Blood pressure 139/68, pulse 85, temperature 36.6 ??C (97.8 ??F), temperature source Oral, resp. rate 17, height 182.9 cm (6'), weight 115.9 kg (255 lb 8.2 oz), SpO2 91%. Respiratory Source: O2 Device: Nasal cannula Admission Weight: Weight: 117.3 kg (258 lb 9.6 oz) NIHSS: 1a Level of consciousness: 1=not alert but arousable by minor stimulation to obey, answer or respond 1b. LOC questions: 1=Performs one task correctly 1c. LOC commands: 1=Performs one task correctly 2. Best Gaze: 0=normal 3. Visual: 1=Partial hemianopia 4. Facial Palsy: 0=Normal symmetric movement 5a. Motor left arm: 0=No drift, limb holds 90 (or 45) degrees for full 10 seconds 5b. Motor right arm: 0=No drift, limb holds 90 (or 45) degrees for full 10 seconds 6a. motor left le=Drift, limb holds 90 (or 45) degrees but drifts down before full 10 seconds: does not hit bed 6b Motor right le=Drift, limb holds 90 (or 45) degrees but drifts down before full 10 seconds: does not hit bed 7. Limb Ataxia: 1=Present in one limb 8. Sensory: 0=Normal; no sensory loss 9. Best Language: 1=Mild to moderate aphasia; some obvious loss of fluency or facility of comprehension without significant limitation on ideas expressed or form of expression 10. Dysarthria: 1=Mild to moderate, patient slurs at least some words and at worst, can be understood with some difficulty 11. Extinction and Inattention: 0=No abnormality Total: 9 Labs/Imaging: Objective Lab work/Imaging: Lab Results Component Value Date HGBA1C 8.9 (H) 06/04/2025 CALCIUM 9.1 06/07/2025 K 3.5 06/07/2025 CO2 24 06/07/2025 BUN 16 06/07/2025 CREATININE 1.49 (H) 06/07/2025 Lab Results Component Value Date WBC 4.9 06/07/2025 HGB 13.5 06/07/2025 MCV 92 06/07/2025 PLT 211 06/07/2025 Lab Results Component Value Date INR 1.5 (H) 06/04/2025 No results found for: LDL , CHOLESTEROLT Imaging: MR brain with and without contrast Result Date: 06/07/2025 EXAM:MR BRAIN W WO CONT INDICATION: IPH neuro deficit COMPARISON: CT of the head from 06/05/2025 TECHNIQUE: Multiplanar multisequence pre and post contrast MR sequences through the head/brain. CONTRAST: 20mL ProHance IV. BRAIN FINDINGS: The study is motion degraded Brain Parenchyma: Redemonstrated intraparenchymal hematoma centered along the anterior right thalamus. The overall size and configuration of the hematoma is not significantly changed given variation in imaging technique. Maximal dimension is approximately 2.4 cm. Intraventricular extension into the adjacent anterior body of the right lateral ventricle. There is layering blood within the bilateral occipital horns, similar volume to prior from 06/05/2025. There are scattered bilateral acute to subacute infarcts within the right basal ganglia and bilateral centrum semiovale. No definite evidence of convexity subarachnoid hemorrhage however evaluation is limited due to motion. Intracranial Flow-Voids: Arterial and venous sinus flow voids appear normal. Orbits: Normal Paranasal Sinuses: Normal Mastoid Air Cells: Bilateral mastoid effusions Cranium: Normal Extracranial Soft Tissues: Normal IMPRESSION: Significantly limited study due to motion. Redemonstrated right thalamic hematoma with intraventricular extension. Overall size and morphology is not significantly changed compared to prior CT. Similar volume of intraventricular layering blood products. Enhancement along the anterior basal ganglia likely involving the putamen and caudate head likely sequelae of subacute infarct. There is corresponding diffusion restriction. Characterization is limited by motion. Metastatic disease favored to be less likely in the absence of a known malignancy. Consider short interval follow-up to assess for expected evolution of the infarcted territories and hematoma. Finalized by Peter Ramon on 06/07/2025 12:03 AM EEG Video Monitoring Daily Result Date: 06/06/2025 Images from the original result were not included. [facility] Video/EEG Monitoring REPORT EEG Service Date(s): 06/06/25 from 06:30 until 10:35 Date of Report: 06/06/25 History: Gianni Babin is 70 y.o. male with a history of intraparenchymal hemorrhage and encephalopathy who is undergoingvideo/EEG monitoring to evaluate for seizures. Centrally active medications: Keppra Procedure: Thisvideo/EEG monitoring was acquired with electrodes placed according to the [id number] electrode placement system,using collodion. The EEG was reviewed using multiple, reformattable montages. Closed captioned video monitoring of behavior, synchronous with EEG recording is included in the analysis, as is digital/spectral analysis of EEG waveforms. A single EKG channel was recorded for cardiac rhythm monitoring. Technical description: Background over the left hemisphere is composed of 5-10 ??V frontal and centrally predominant intermittent beta frequency intermixed with 20-25 ??V posterior slow alpha and theta frequencies. There is an 8 Hz posterior dominant rhyhtm seen over the left hemisphere, but not on the right side. Background over the right hemisphere is composed of 5 ??V frontal and centrally predominant intermittent beta frequency intermixed with 20-30 V posterior alpha>theta frequency and intermittent right temporal polymorphic delta frequencies. No epileptiform abnormalities are noted in the form of spikes or sharp waves. No electrographic seizure activity is recorded. Stage II sleep is noted, correlated with the presence of bilaterally symmetric spindle activity and generalized delta frequencies. Events: None. EEG diagnosis: This video/EEG monitoring is abnormal due to: Focal intermittent right temporal slowing.. Mild generalized background slowing. EEG interpretation: This video/EEG monitoring is abnormal due to the presence of intermittent right temporal slowing, consistent with structural lesion. Mild generalized background slowing is consistent with encephalopathy of nonspecific etiology. No epileptiform abnormalities or seizures were recorded. Video/EEG monitoring may be continued or discontinued at the discretion of the referring provider. Jennifer German M.D., Ph.D. Bra[facility] Folder [facility] X-ray abdomen NG Tube placement 1 view Result Date: 06/06/2025 ABDOMEN RADIOGRAPH DATE: 06/06/2025 11:32 AM CLINICAL INDICATION: Verify NG tube placement TECHNIQUE: Single radiograph of the lower chest/upper abdomen COMPARISON: None FINDINGS: Lung bases: Unremarkable Bowel: No free air under the diaphragm. Bowel gas pattern appears nonobstructive. Bones / softtissue: No acute appearing bony abnormality is noted Other: Enteric tube projects below the diaphragm, with the tip in the location of the upper stomach. IMPRESSION: 1. Enteric tube tip location is in the upper stomach, approximately 10 cm beyond the GE junction Finalized by Talat Elkins MD on 06/06/2025 11:38 AM Assessment: 70 years old male with past medical history of hypertension, hyperlipidemia, diabetes, obesity, recent DVT (on Eliquis) who had an episode of fall 3 days ago. Later on, the patient had an acute onsetof confusion earlier this morning and was taken to an outside hospital. CT head showed intraparenchymal hemorrhage and therefore the patient was transferred to [facility] for further workup. On examination, the patient is currently on room air, appears confused but no significant motor deficits at this time. MRI brain on 06/07: redemonstrated right thalamic hematoma with intraventricular extension Impression: R IPH with intra-ventricular extension, likely 2/2 HTN (ICH score 2) Plan: - Continue care in the intensive care unit with stroke service. - vEEG discontinued on 06/06. Follow up on levetiracetam level - Patient has thick sputum and mild congestion, follow up on CXR, BMP, echocardiogram, respiratory pathogen panel, sputum culture - Consult nephrology and Urology for BALJIT on CKD in the setting of bilateral hydronephrosis - Consult vascular surgery for DVT management, recommended DVT prophylax - NG tube was placed on 06/06 - currently on home lisinopril 40 mg for better blood pressure control. - Currently on home Keppra 750 mg b.i.d. for history of seizure disorder - Target SBP 130-150. PRN Hydralazine and labetalol - Follow up echocardiogram with bubble study - Might transfer to the floor later on if clinically stable. - Code status: Full - Dispo: TBD - DVT px: consider starting chemical prophylaxis on 06/08 Staffed with: Dr. Monika Butt MD PGY-2 Neurology Resident 06/07/25 7:15 AM Cosigned by Patricia Mcclellan MD at 06/20/2025 12:20 AM EDT Associated attestation - Patricia Mcclellan MD - 06/20/2025 12:20 AM EDT ?Attending?Attestation: ?I saw the patient. I performed the critical/dill portions of the service.? I was directly involved in the management and treatment plan of the patient.? I reviewed the residents' notes. ?Additional Notes/Findings: None. ?The clinical encounter comprised of: The patient is being evaluated for stroke and is at risk for neurological deterioration. Preparing to see the patient (e.g., review of tests) Obtaining and/or reviewing separately obtained history Performing a medically appropriate examination and/or evaluation Counseling and educating the patient/family/caregiver Documenting clinical information in the electronic or other health record Independently interpreting results (not separately reported) and communicating results to the patient/family/caregiver Care coordination (not separately reported) ? Patricia Mcclellan MD Vascular Neurologist [facility] Neurology ([facility])? Important Notice:??This note was created with the assistance of a speech recognition program.? While intending to generate a timely document that accurately reflects the content of the encounter, no guarantee can be provided that every grammatical or spelling mistake has been or will be identified or corrected.? Thank you for your understanding. * Alphonse Cuenca MD - 06/06/2025 2:01 PM EDT Neurovascular / Interventional neurology Intraparenchymal Hemorrhage Progress Note Date of admission 06/04/2025 5:25 PM PCP: SIENNA BARRIENTOS Reason of admission: IPH Deficit: AMS Last known well: Unclear, some time on 06/03/25 Patient seen at: ED Initial NIHSS: 9 Premorbid mRS: 0 Initial imaging: R Thalamic IPH with IVH ICH Score: 2 Initial BP reported: 134/83 Interval: Patient was seen and examined at bedside this morning. Had varying blood pressures overnight requiring p.r.n. medications. Creatinine 1.4 in the setting of CKD. EEG does not show any epileptiform discharges. Subjective: Gianni Babin is a 70 y.o. male who initially presented to an outside hospital and thereafter was transferred to [facility] via air. Past medical history significant for hypertension, DM, HLD,Obesity, DM2, recent DVT on Eliquis. Per chart review, the patient was initially taken to an outside hospital ED by EMS for evaluation of altered mental status. The patient was not aware of where he was, what year it was or who the president was. Imaging studies were done at the outside hospital including CT brain which showed 2.3 cm right thalamic hemorrhage with intraventricular extension. He was on Eliquis due to recent DVT and started on Eliquis. In the ED Kcentra was given for reversal of Eliquis. He was also given Keppra 2g at the outside hospital and started on Cardene infusion. The patient was accepted by the trauma service and transferred to [facility]. Upon arrival to [facility] ED, vascular neurology consulted. Upon my evaluation the patient is currently on room air. He appears to be confused, answering questions but incorrectly. He is able to follow commands intermittently. The patient has stable blood pressure, currently 119/80. According to the family he had an episode of fall 3 days back. However, themain onset of confusion was this morning. Past medical history: DVT on Eliquis, HTN, HLD, Obesity, DM2 Home medications: Eliquis, Aspirin, Lipitor, Lisinopril, Metformin Social history: Daily alcohol drinker, chronic smoking Home medications: Medications Prior to Admission Medication Sig Dispense Refill Last Dose/Taking aspirin 81 mg Take 1 tablet (81 mg total) by mouth in the morning. Taking atorvastatin (LIPITOR) 20 mg tablet Take 1 tablet (20 mg total) by mouth every morning. TAKE 1 TABLET (20 MG) BY MOUTH IN THE MORNING Taking ELIQUIS 5 mg tablet Take 1 tablet (5 mg total) by mouth in the morning and 1 tablet (5 mg total) before bedtime. Taking fenofibrate (LOFIBRA) 160 mg tablet Take 1 tablet (160 mg total) by mouth in the morning. Taking lisinopriL (PRINIVIL,ZESTRIL) 40 mg tablet Take 1 tablet (40 mg total) by mouth in the morning. Taking magnesium aspart,citrate,oxide (TRIPLE MAGNESIUM COMPLEX) 400 mg magnesium capsule Take 400 mg by mouth in the morning. Taking metFORMIN (GLUCOPHAGE) 1000 mg tablet Take 1 tablet (1,000 mg total) by mouth in the morning and 1 tablet (1,000 mg total) in the evening. Take with meals. Taking ACCU-CHEK GUIDE ME GLUCOSE MTR misc USE DAILY OR DIRECTED FOR MONITORING OF DIABETES. ACCU-CHEK GUIDE TEST STRIPS strip USE DAILY ACCU-CHEK SOFTCLIX LANCETS lancets USE TO TEST DAILY Past medical history: Past Medical History: Diagnosis Date Diabetes mellitus type 2, controlled ([facility]) DVT (deep venous thrombosis) ([facility]) GERD (gastroesophageal reflux disease) Hyperlipidemia Hypertension ICH (intracerebral hemorrhage) ([facility]) 06/04/2025 Osteoarthritis Past surgical history: Past Surgical History: Procedure Laterality Date TONSILLECTOMY TOTAL HIP ARTHROPLASTY 06/2010 Family history: Hefamily history includes Heart attack in his father; Leukemia in his mother; Lymphoma in his mother; Pancreatic cancer in his father. Allergies: Hehas no known allergies. Social history: Social History Socioeconomic History Marital status: Spouse name: Not on file Number of children: Not on file Years of education: Not on file Highest education level: Not on file Occupational History Not on file Tobacco Use Smoking status: Every Day Current packs/day: 1.00 Average packs/day: 1 pack/day for 52.8 years (52.8 ttl pk-yrs) Types: Cigarettes Start date: 1972 Smokeless tobacco: Never Substance and Sexual Activity Alcohol use: Yes Drug use: Never Sexual activity: Not on file Other Topics Concern Not on file Social History Narrative Not on file Social Drivers of Health Financial Resource Strain: Not on file Food Insecurity: No Food Insecurity (06/05/2025) Hunger Screening Food Insecurity - Worry: Never True Food Insecurity - Inability: Never True Transportation Needs: No Transportation Needs (06/05/2025) PRAPARE - Transportation Lack of Transportation (Medical): No Lack of Transportation (Non-Medical): No Physical Activity: Not on file Stress: Not on file Social Connections: Not on file Interpersonal Safety: Patient Unable To Answer (06/05/2025) Humiliation, Afraid, Rape, and Kick questionnaire Fear of Current or Ex-Partner: Patient unable to answer Emotionally Abused: Patient unable to answer Physically Abused: Patient unable to answer Sexually Abused: Patient unable to answer Housing Instability: Low Risk (06/05/2025) Housing Instability Housing Instability: No Physical exam: Vital Signs: Blood pressure (!) 117/99, pulse 76, temperature 36.6 ??C (97.8 ??F), temperature source Oral, resp. rate 16, height 182.9 cm (6'), weight 117.4 kg (258 lb 13.1 oz), SpO2 96%. Respiratory Source: O2 Device: None (Room air) Admission Weight: Weight: 117.3 kg (258 lb 9.6 oz) NIHSS: 1a Level of consciousness: 1=not alert but arousable by minor stimulation to obey, answer or respond 1b. LOC questions: 1=Performs one task correctly 1c. LOC commands: 1=Performs one task correctly 2. Best Gaze: 0=normal 3. Visual: 1=Partial hemianopia 4. Facial Palsy: 0=Normal symmetric movement 5a. Motor left arm: 0=No drift, limb holds 90 (or 45) degrees for full 10 seconds 5b. Motor right arm: 0=No drift, limb holds 90 (or 45) degrees for full 10 seconds 6a. motor left le=Drift, limb holds 90 (or 45) degrees but drifts down before full 10 seconds: does not hit bed 6b Motor right le=Drift, limb holds 90 (or 45) degrees but drifts down before full 10 seconds: does not hit bed 7. Limb Ataxia: 1=Present in one limb 8. Sensory: 0=Normal; no sensory loss 9. Best Language: 1=Mild to moderate aphasia; some obvious loss of fluency or facility of comprehension without significant limitation on ideas expressed or form of expression 10. Dysarthria: 1=Mild to moderate, patient slurs at least some words and at worst, can be understood with some difficulty 11. Extinction and Inattention: 0=No abnormality Total: 9 Labs/Imaging: Objective Lab work/Imaging: Lab Results Component Value Date HGBA1C 8.9 (H) 06/04/2025 CALCIUM 8.6 06/06/2025 K 3.5 06/06/2025 CO2 23 06/06/2025 BUN 13 06/06/2025 CREATININE 1.43 (H) 06/06/2025 Lab Results Component Value Date WBC 4.3 06/06/2025 HGB 13.7 06/06/2025 MCV 92 06/06/2025 PLT 191 06/06/2025 Lab Results Component Value Date INR 1.5 (H) 06/04/2025 No results found for: LDL , CHOLESTEROLT Imaging: EEG Video Monitoring Daily Result Date: 06/06/2025 Images from the original result were not included. [facility] Video/EEG Monitoring REPORT EEG Service Date(s): 06/06/25 from 06:30 until 10:35 Date of Report: 06/06/25 History: Gianni Babin is 70 y.o. male with a history of intraparenchymal hemorrhage and encephalopathy who is undergoingvideo/EEG monitoring to evaluate for seizures. Centrally active medications: Keppra Procedure: Thisvideo/EEG monitoring was acquired with electrodes placed according to the [id number] electrode placement system,using collodion. The EEG was reviewed using multiple, reformattable montages. Closed captioned video monitoring of behavior, synchronous with EEG recording is included in the analysis, as is digital/spectral analysis of EEG waveforms. A single EKG channel was recorded for cardiac rhythm monitoring. Technical description: Background over the left hemisphere is composed of 5-10 ??V frontal and centrally predominant intermittent beta frequency intermixed with 20-25 ??V posterior slow alpha and theta frequencies. There is an 8 Hz posterior dominant rhyhtm seen over the left hemisphere, but not on the right side. Background over the right hemisphere is composed of 5 ??V frontal and centrally predominant intermittent beta frequency intermixed with 20-30 V posterior alpha>theta frequency and intermittent right temporal polymorphic delta frequencies. No epileptiform abnormalities are noted in the form of spikes or sharp waves. No electrographic seizure activity is recorded. Stage II sleep is noted, correlated with the presence of bilaterally symmetric spindle activity and generalized delta frequencies. Events: None. EEG diagnosis: This video/EEG monitoring is abnormal due to: Focal intermittent right temporal slowing.. Mild generalized background slowing. EEG interpretation: This video/EEG monitoring is abnormal due to the presence of intermittent right temporal slowing, consistent with structural lesion. Mild generalized background slowing is consistent with encephalopathy of nonspecific etiology. No epileptiform abnormalities or seizures were recorded. Video/EEG monitoring may be continued or discontinued at the discretion of the referring provider. Jennifer German M.D., Ph.D. [facility] X-ray abdomen NG Tube placement 1 view Result Date: 06/06/2025 ABDOMEN RADIOGRAPH DATE: 06/06/2025 11:32 AM CLINICAL INDICATION: Verify NG tube placement TECHNIQUE: Single radiograph of the lower chest/upper abdomen COMPARISON: None FINDINGS: Lung bases: Unremarkable Bowel: No free air under the diaphragm. Bowel gas pattern appears nonobstructive. Bones / softtissue: No acute appearing bony abnormality is noted Other: Enteric tube projects below the diaphragm, with the tip in the location of the upper stomach. IMPRESSION: 1. Enteric tube tip location is in the upper stomach, approximately 10 cm beyond the GE junction Finalized by Talat Elkins MD on 06/06/2025 11:38 AM EEG Video Monitoring Daily Result Date: 06/06/2025 Images from the original result were not included. [facility] Video/EEG Monitoring REPORT EEG Service Date(s): 06/05/25 @ 06:30 until @ 06:30 Date of Report: 06/06/25 History: Gianni Padilla is 70 y.o. male with a history of intraparenchymal hemorrhage and encephalopathy who is undergoing video/EEG monitoring to evaluate for seizures. Centrally active medications: Keppra Procedure: This video/EEG monitoring was acquired with electrodes placed according to the [id number] placement system,using collodion. The EEG was reviewed using multiple, reformattable montages. Closed captioned video monitoring of behavior, synchronous with EEG recording is included in the analysis, as is digital/spectral analysis of EEG waveforms. A single EKG channel was recorded forcardiac rhythm monitoring. Technical description: Background over the left hemisphere is composed of 5-10 ??V frontal and centrally predominant intermittent beta frequency intermixed with 20-25 ??V posterior slow alpha and theta frequencies. There is an 8 Hz posterior dominant rhyhtm seen over the left hemisphere, but not on the right side. Background over the right hemisphere is composed of 5 ??V frontal and centrally predominant intermittent beta frequency intermixed with 20-40 ??V posterior theta and intermittent right temporal polymorphic delta frequencies. No epileptiform abnormalities are noted in the form of spikes or sharp waves. No electrographic seizure activity is recorded. Stage II sleep is noted, correlated with the presence of bilaterally symmetric spindle activity and generalized delta frequencies. EEG diagnosis: This video/EEG monitoring is abnormal due to: Focal intermittent right temporal slowing.. Mild generalized background slowing. EEG interpretation: This video/E EG monitoring is abnormal due to the presence of intermittent right temporal slowing, consistent with structural lesion. Mild generalized background slowing is consistent with encephalopathy of nonspecific etiology. No epileptiform abnormalities or seizures were recorded. Video/EEG monitoring may be continued or discontinued at the discretion of the referring provider. Jennifer Rowell M.D., Ph.D. [facility] Background with right temporal slowing Assessment: 70 years old male with past medical history of hypertension, hyperlipidemia, diabetes, obesity, recent DVT (on Eliquis) who had an episode of fall 3 days ago. Later on, the patient had an acute onsetof confusion earlier this morning and was taken to an outside hospital. CT head showed intraparenchymal hemorrhage and therefore the patient was transferred to [facility] for further workup. On examination, the patient is currently on room air, appears confused but no significant motor deficits at this time. Impression: R IPH with intra-ventricular extension, likely 2/2 HTN Plan: - Continue care in the intensive care unit with stroke service. - Repeat CTH stable, will continue to monitor clinically - Discontinue vEEG monitoring. - ST evaluated the patient and recommends NG tube at this time, will consult nutrition services. - Resume home lisinopril for better blood pressure control. - Target SBP 130-150. PRN Hydralazine and labetalol - MRI Brain with and without contrast. - Might transfer to the floor later on if clinically stable. - Code status: Full - Dispo: TBD - DVT px: Hold for now Staffed with: Dr. Monika Cuenca MD PGY-3 Neurology Resident 06/06/25 2:00 PM Cosigned by Patricia Mcclellan MD at 06/20/2025 12:19 AM EDT Associated attestation - Patricia Mcclellan MD - 06/20/2025 12:19 AM EDT ?Attending?Attestation: ?I saw the patient. I performed the critical/dill portions of the service.? I was directly involved in the management and treatment plan of the patient.? I reviewed the residents' notes. ?Additional Notes/Findings: None. ?The clinical encounter comprised of: The patient is being evaluated for stroke and is at risk for neurological deterioration. Preparing to see the patient (e.g., review of tests) Obtaining and/or reviewing separately obtained history Performing a medically appropriate examination and/or evaluation Counseling and educating the patient/family/caregiver Documenting clinical information in the electronic or other health record Independently interpreting results (not separately reported) and communicating results to the patient/family/caregiver Care coordination (not separately reported) ? Patricia Mcclellan MD Vascular Neurologist [facility] Neurology ([facility])? Important Notice:??This note was created with the assistance of a speech recognition program.? While intending to generate a timely document that accurately reflects the content of the encounter, no guarantee can be provided that every grammatical or spelling mistake has been or will be identified or corrected.? Thank you for your understanding. * Alphonse Cuenca MD - 06/05/2025 8:54 AM EDT Neurovascular / Interventional neurology Intraparenchymal Hemorrhage Progress Note Date of admission 06/04/2025 5:25 PM PCP: CLARISA HANSEN APRN-ANDREA Reason of admission: IPH Deficit: AMS Last known well: Unclear, some time on 06/03/25 Patient seen at: ED Initial NIHSS: 9 Premorbid mRS: 0 Initial imaging: R Thalamic IPH with IVH ICH Score: 2 Initial BP reported: 134/83 Interval: Patient was seen and examined at bedside this morning. Vitals stable, no acute events reported overnight. Blood pressure well controlled. Currently on video EEG, pending reports. Patient on examination appears to be significantly sleepy and keeps falling asleep intermittently requiring repeated stimulation for examination. Repeat CTH seems stable. Subjective: Gianni Babin is a 70 y.o. male who initially presented to an outside hospital and thereafter was transferred to [facility] via air. Past medical history significant for hypertension, DM, HLD,Obesity, DM2, recent DVT on Eliquis. Per chart review, the patient was initially taken to an outside hospital ED by EMS for evaluation of altered mental status. The patient was not aware of where he was, what year it was or who the president was. Imaging studies were done at the outside hospital including CT brain which showed 2.3 cm right thalamic hemorrhage with intraventricular extension. He was on Eliquis due to recent DVT and started on Eliquis. In the ED Kcentra was given for reversal of Eliquis. He was also given Keppra 2g at the outside hospital and started on Cardene infusion. The patient was accepted by the trauma service and transferred to [facility]. Upon arrival to [facility] ED, vascular neurology consulted. Upon my evaluation the patient is currently on room air. He appears to be confused, answering questions but incorrectly. He is able to follow commands intermittently. The patient has stable blood pressure, currently 119/80. According to the family he had an episode of fall 3 days back. However, themain onset of confusion was this morning. Past medical history: DVT on Eliquis, HTN, HLD, Obesity, DM2 Home medications: Eliquis, Aspirin, Lipitor, Lisinopril, Metformin Social history: Daily alcohol drinker, chronic smoking Home medications: Medications Prior to Admission Medication Sig Dispense Refill Last Dose/Taking aspirin 81 mg Take 1 tablet (81 mg total) by mouth in the morning. Taking atorvastatin (LIPITOR) 20 mg tablet Take 1 tablet (20 mg total) by mouth every morning. TAKE 1 TABLET (20 MG) BY MOUTH IN THE MORNING Taking ELIQUIS 5 mg tablet Take 1 tablet (5 mg total) by mouth in the morning and 1 tablet (5 mg total) before bedtime. Taking fenofibrate (LOFIBRA) 160 mg tablet Take 1 tablet (160 mg total) by mouth in the morning. Taking lisinopriL (PRINIVIL,ZESTRIL) 40 mg tablet Take 1 tablet (40 mg total) by mouth in the morning. Taking magnesium aspart,citrate,oxide (TRIPLE MAGNESIUM COMPLEX) 400 mg magnesium capsule Take 400 mg by mouth in the morning. Taking metFORMIN (GLUCOPHAGE) 1000 mg tablet Take 1 tablet (1,000 mg total) by mouth in the morning and 1 tablet (1,000 mg total) in the evening. Take with meals. Taking ACCU-CHEK GUIDE ME GLUCOSE MTR misc USE DAILY OR DIRECTED FOR MONITORING OF DIABETES. ACCU-CHEK GUIDE TEST STRIPS strip USE DAILY ACCU-CHEK SOFTCLIX LANCETS lancets USE TO TEST DAILY Past medical history: Past Medical History: Diagnosis Date Diabetes mellitus type 2, controlled ([facility]) DVT (deep venous thrombosis) ([facility]) GERD (gastroesophageal reflux disease) Hyperlipidemia Hypertension ICH (intracerebral hemorrhage) ([facility]) 06/04/2025 Osteoarthritis Past surgical history: Past Surgical History: Procedure Laterality Date TONSILLECTOMY TOTAL HIP ARTHROPLASTY 06/2010 Family history: Hefamily history includes Heart attack in his father; Leukemia in his mother; Lymphoma in his mother; Pancreatic cancer in his father. Allergies: Hehas no known allergies. Social history: Social History Socioeconomic History Marital status: Spouse name: Not on file Number of children: Not on file Years of education: Not on file Highest education level: Not on file Occupational History Not on file Tobacco Use Smoking status: Every Day Current packs/day: 1.00 Average packs/day: 1 pack/day for 52.8 years (52.8 ttl pk-yrs) Types: Cigarettes Start date: 1972 Smokeless tobacco: Never Substance and Sexual Activity Alcohol use: Yes Drug use: Never Sexual activity: Not on file Other Topics Concern Not on file Social History Narrative Not on file Social Drivers of Health Financial Resource Strain: Not on file Food Insecurity: No Food Insecurity (06/05/2025) Hunger Screening Food Insecurity - Worry: Never True Food Insecurity - Inability: Never True Transportation Needs: No Transportation Needs (06/05/2025) PRAPARE - Transportation Lack of Transportation (Medical): No Lack of Transportation (Non-Medical): No Physical Activity: Not on file Stress: Not on file Social Connections: Not on file Interpersonal Safety: Patient Unable To Answer (06/05/2025) Humiliation, Afraid, Rape, and Kick questionnaire Fear of Current or Ex-Partner: Patient unable to answer Emotionally Abused: Patient unable to answer Physically Abused: Patient unable to answer Sexually Abused: Patient unable to answer Housing Instability: Low Risk (06/05/2025) Housing Instability Housing Instability: No Physical exam: Vital Signs: Blood pressure 143/90, pulse 85, temperature 36.6 ??C (97.8 ??F), temperature source Oral, resp. rate 12, height 182.9 cm (6'), weight 117.3 kg (258 lb 9.6 oz), SpO2 99%. Respiratory Source: O2 Device: None (Room air) Admission Weight: Weight: 117.3 kg (258 lb 9.6 oz) NIHSS: 1a Level of consciousness: 1=not alert but arousable by minor stimulation to obey, answer or respond 1b. LOC questions: 1=Performs one task correctly 1c. LOC commands: 1=Performs one task correctly 2. Best Gaze: 0=normal 3. Visual: 1=Partial hemianopia 4. Facial Palsy: 0=Normal symmetric movement 5a. Motor left arm: 0=No drift, limb holds 90 (or 45) degrees for full 10 seconds 5b. Motor right arm: 0=No drift, limb holds 90 (or 45) degrees for full 10 seconds 6a. motor left le=Drift, limb holds 90 (or 45) degrees but drifts down before full 10 seconds: does not hit bed 6b Motor right le=Drift, limb holds 90 (or 45) degrees but drifts down before full 10 seconds: does not hit bed 7. Limb Ataxia: 1=Present in one limb 8. Sensory: 0=Normal; no sensory loss 9. Best Language: 1=Mild to moderate aphasia; some obvious loss of fluency or facility of comprehension without significant limitation on ideas expressed or form of expression 10. Dysarthria: 1=Mild to moderate, patient slurs at least some words and at worst, can be understood with some difficulty 11. Extinction and Inattention: 0=No abnormality Total: 9 Labs/Imaging: Objective Lab work/Imaging: Lab Results Component Value Date HGBA1C 8.9 (H) 06/04/2025 CALCIUM 8.7 06/05/2025 K 3.3 (L) 06/05/2025 CO2 26 06/05/2025 BUN 13 06/05/2025 CREATININE 1.44 (H) 06/05/2025 Lab Results Component Value Date WBC 4.4 06/05/2025 HGB 13.3 06/05/2025 MCV 91 06/05/2025 PLT 202 06/05/2025 Lab Results Component Value Date INR 1.5 (H) 06/04/2025 No results found for: LDL , CHOLESTEROLT Imaging: EEG Video Monitoring Daily Result Date: 06/05/2025 Images from the original result were not included. [facility] Video/EEG Monitoring REPORT EEG Service Date(s): 06/05/25 form 04:27 until 06:30 Date of Report: 06/05/25 History: Gianni Babin is 70 y.o. male with a history of intraparenchymal hemorrhage and encephalopathy who is undergoing video/EEG monitoring to evaluate for seizures. Centrally active medications: Keppra Procedure: This video/EEG monitoring was acquired with electrodes placed according to the [id number] electrode placement system,using collodion. The EEG was reviewed using multiple, reformattable montages. Closed captioned video monitoring of behavior, synchronous with EEG recording is included in the analysis, as is digital/spectral analysis of EEG waveforms. A single EKG channel was recorded for cardiac rhythm monitoring. Technical description: Background over the left hemisphere is composed of 5-10??V frontal and centrally predominant intermittent beta frequency intermixed with 20-25 ??V posterior slow alpha and theta frequencies. There is an 8 Hz posterior dominant rhyhtm seen over the left hemisphere, but not on the right side. Background over the right hemisphere is composed of 5 ??V frontal and centrally predominant intermittent beta frequency intermixed with 20-40 ??V posterior theta and polymorphic delta frequencies. No epileptiform abnormalities are noted in the form of spikes or s harp waves. No electrographic seizure activity is recorded. Stage II sleep is noted, correlated with the presence of bilaterally symmetric spindle activity and generalized delta frequencies. EEG diagnosis: This video/EEG monitoring is abnormal due to: Hemispheric asymmetry with lower amplitudes andfrequencies on the right side. Mild generalized background slowing. EEG interpretation: This video/EEG monitoring is abnormal due to the presence of right hemispheric slowing and lower amplitudes, consistent with structural lesion. Mild generalized background slowing is consistent with encephalopathy of nonspecific etiology. No epileptiform abnormalities or seizures were recorded. Jennifer German M.D., Ph.D. [facility] Baseline Routine EEG Result Date: 06/05/2025 Images from the original result were not included. [facility] EEG REPORT EEG Service Date: 06/05/25 Date of Report: 06/05/25 History: Gianni Babin is a 70 y.o. male with altered mental status and right intraparenchymal hemorrhage who is undergoing EEG to evaluate for seizures. Centrally active medications: Keppra. Procedure: This EEG was acquired with electrodes placed according to [id number] electrode placement system. The EEG was acquired and reviewed using multiple, reformattable montages. A single EKG channel was recorded for cardiac rhythm monitoring. Technical description: Background over the left hemisphere is composed of 5-10 ??V frontal and centrally predominant intermittent beta frequency intermixed with 20-25 ??V posterior slow alpha and theta frequencies. There is an 8 Hz posterior dominant rhyhtm seen over the left hemisphere, but not on the right side. Background over the right hemisphere is composed of 5 ??V frontal and centrally predominant intermittent beta frequency intermixed with 20-40 ??V posterior theta and polymorphic delta frequencies. No epileptiform abnormalities are noted in the form of spikes or sharp waves. No electrographic seizure activity is recorded. Stage II sleep is noted, correlated with the presence of bilaterally symmetric spindle activity and generalized delta frequencies. Hyperventilation was deferred. Photic stimulation failed to elicit posterior driving responses. EEG diagnosis: This EEG is abnormal due to: Hemispheric asymmetry with lower amplitudes and frequencies on the right side. Mild generalized background slowing. EEG interpretation: This EEG is abnormal due to the presence of right hemispheric slowing and lower amplitudes, consistent with structural lesion. Mild generalized background slowing is consistent with encephalopathy of nonspecific etiology. The absence of epileptiform abnormalities does not exclude the possibility of intermittent seizures. Jennifer German M.D., Ph.D. [facility] Background CT brain without contrast Result Date: 06/05/2025 CT BRAIN WO CONT CLINICAL HISTORY: Follow-up for intracranial hemorrhage. COMPARISON: CT brain 06/05/2025 and 06/04/2025. TECHNIQUE: CT brain without intravenous contrast. Automated exposure control was utilized. All CT scans at this facility use dose modulation, iterative reconstruction, and/or weight based dosing when appropriate to reduce radiation dose to as low as reasonably achievable. FINDINGS: Redemonstrated acute parenchymal hemorrhage centered within the anterior right thalamus with adjacent edema. Intraventricular extension within the right lateral ventricle, third ventricle, and dependent portions of the lateral ventricles. Ventricular system size and morphology are unchanged, basal cisterns are patent. No new or enlarging intracranial hemorrhage. Patchy areas of hypoattenuation within the supratentorial white matter nonspecific but most commonly associated with chronic microvascular ischemic change. Orbits are symmetric. No depressed or displaced calvarial fracture. Partial opacification of the bilateral mastoid air cells. Partially visualized cystic lesion within the right maxillary alveolar recess is unchanged. IMPRESSION: * Similar intraparenchymal hemorrhage centered within the anterior right thalamus with intraventricular extension. No change in size or configuration of the ventricular system. All CT scans at this facility use dose modulation, iterative reconstruction, and/or weight based dosing when appropriate to reduce radiation dose to as low as reasonably achievable. Finalized by Eron Walton MD on 06/05/2025 8:[address] brain without contrast Result Date: 06/05/2025 History: Stroke Technique: Contiguous axial images through the brain were obtained without the administration of intravenous contrast material. Automated exposure control was utilized. Comparison: 06/04/2025 Findings: The previous described acute intracranial hemorrhage involving the right thalamusand extending into the right lateral ventricle is again seen and has not changed significantly since the prior study. There is now increasing blood products in the dependent portion of the lateral ventricles bilaterally. No new areas of hemorrhage are identified. There is no evidence of major vessel infarct or mass lesion. Impression: Stable appearance of the acute hemorrhage in the right thalamus with intraventricular extension with more acute blood product now seen layering in the dependent portion of the lateral ventricles since the previous examination dated 06/04/2025. All CT scans at this facility use dose modulation, iterative reconstruction, and/or weight based dosing when appropriate to reduce radiation dose to as low as reasonably achievable. Finalized byRaghu Villegas MD on 06/05/2025 4:[address] abdomen and pelvis with contrast Result Date: 06/04/2025 History: . fall Exam/Technique: Contiguous axial images are obtained of the abdomen and pelvis [id number] cc omnipaque 300 intravenous contrast. Coronal and sagittal reconstructions were performed and reviewed. Automatic dose exposure reduction technique utilized. Comparison: CT chest. Findings: LUNGS AND CARDIOMEDIASTINAL STRUCTURES: no abnormality. LIVER: is normal. SPLEEN: is normal. GALLBLADDER: normal. BILIARY TREE:Normal PANCREAS: normal. ADRENAL GLANDS are normal. RIGHT KIDNEY: Cortical scarring with significant caliectasis and hydronephrosis. The right ureter is dilated down to the urinary bladder. Cortical scarring. LEFT KIDNEY: Significant hydronephrosis and caliectasis. No discretecortical scarring. The left ureter is not opacified and demonstrates thick wall with dilatation. 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 There is extensive disease a lso traction into the internal and external vessels. PORTAL VEIN: Patent IVC is normal. There is noparaaortic or paracaval adenopathy. FREE AIR: Absent SIGNIFICANT FREE FLUID:absent MESENTERY: Normal BODY WALL: Normal SMALL BOWEL AND TERMINAL ILEUM: normal. COLON: Colonic diverticulosis with fecalloading without diverticulitis. APPENDIX: normal. HERNIAL ORIFICES:Fat-containing inguinal hernias.. PELVIC ORGANS: Prostate gland with dystrophic calcification. Significant degenerative labrum with thick wall and lobulated outline which may be due to chronic outlet obstruction, inflammation and neoplastic disease cannot be completely excluded. BONES AND SOFT TISSUES: Osteopenia degenerative changes. There is no loss of vertebral body height. The left hip arthroplasty partially visualized with no acute abnormality. Right hip degenerative changes noted. . 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 Significant hydronephrosis and caliectasis and hydroureter bilaterally with a thick walled urinary bladder likely related to obstruction or chronic inflammati on and the enlarged prostate gland. Reflux may be noted bilaterally. All CT scans at this facility use dose modulation, iterative reconstruction, and/or weight based dosing when appropriate to reduceradiation dose to as low as reasonably achievable. Finalized by Bradford Marroquin MD on 06/04/2025 3:[address] chest with contrast Result Date: 06/04/2025 CT CHEST W CONT 06/04/2025 3:18 PM INDICATION: Fall. Pain. COMPARISON: None TECHNIQUE: Contrast-enhanced CT images of the chest were obtained. All CT scans at this facility use dose modulation, iterative reconstruction, and/or weight based dosing when appropriate to reduce radiation dose to as low as reasonably achievable. FINDINGS: Evaluation compromised by arm positioning at time of scanning. Thyroid gland is unremarkable. No supraclavicular adenopathy. Ascending thoracic aorta measures 4.4 cm in diameter. Conventional branching of the aortic arch. Heart size is within normal limits. No pericardial effusion. Coronary artery calcifications are present. Main pulmonary trunk size is within normal limits. No enlarged mediastinal or hilar lymph nodes by size criteria. Trachea shows no acute abnormality. Secretions noted within the mid thoracic trachea. Mild nonspecific bilateral peribronchial wall thickening. No pleural effusion. No pneumothorax. Dependent atelectasis. No focal consolidation. Small right posterior diaphragmatic hernia containing fat. Chest wall soft tissue show no acute abnormality. No acute or aggressive osseous lesion. Degenerative changes of the bilateral shoulders. Remote left-sided rib fractures. Multilevel degenerative changes of the thoracic spine with slightly exaggerated thoracic kyphosis. CT abdomen was performed concurrently but reported separately. IMP RESSION: No acute posttraumatic findings within the chest. Finalized by Eron Walton MD on 06/04/2025 3:[address] cervical reconstruction Result Date: 06/04/2025 CLINICAL INFORMATION: Cervical spine pain. Neck pain PROCEDURE: Routine cervical spine protocol CT was obtained without intravenous contrast. Sagittal and coronal reformatted images were obtained from the axial data. Automated exposure control was utilized. All CT scans at this facility dose modulation, iterative reconstruction, and/or weight based dosing when appropriate to reduce radiation doseto as low as reasonably achievable. FINDINGS: Satisfactory alignment of the cervical spine. The vertebral body heights are preserved. No fracture. No malalignment. Mild multifocal degenerative changes with endplate sclerosis and osteophyte formation. The atlantoaxial space is intact with degenerative sclerosis. Posterior elements are intact with facet hypertrophy. No acute findings in the soft tissues. Please note, ligamentous injury is not well evaluated on a neutral position CT. If concern for ligamentous injury consider flex-ex radiographs or MRI. IMPRESSION: * No acute osseous abnormalities in the cervical spine. Finalized by Stan Overton MD on 06/04/2025 3:[address] angiogram head Result Date: 06/04/2025 CLINICAL INFORMATION: Altered mental status TECHNIQUE: CT angiogram of the head was performed following intravenous administration of nonionic intravenous contrast. 3-D maximum intensity projection images generated and reviewed under concurrent physician supervision. Automated exposure control was utilized. Arterial blood flow was measured to assist the stroke clinical team in the diagnosis of large vessel occlusion in patients undergoing screening for acute ischemic stroke using Rapid AI software when clinically indicated. All CT scans at this facility use dose modulation, iterative reconstruction, and/or weight based dosing when appropriate to reduce radiation dose to as low as reasonably achievable. COMPARISON: No relevant prior studies available. FINDINGS: Evaluation significantly limited due to patient motion. The internal carotid arteries are patent throughout their course in the carotid canal and cavernous segment with moderate atherosclerotic calcification. Evaluation of the anterior cerebral arteries is nondiagnostic due to patient motion. The proximal MCAs are patent, evaluation beyond this is nondiagnostic due to patient motion. The V4 segment of the vertebral arteries is patent, the basilar artery is patent. The P1 segment of the posterior cerebral arteries is patenthowever evaluation beyond this is nondiagnostic. IMPRESSION: * Partially nondiagnostic evaluation due to patient motion as described above. Moderate atherosclerotic calcification of the internal carotid arteries within the carotid canal and cavernous segment. Finalized by Amee Vargas MD on 06/04/2025 2:[address] angiogram carotid Result Date: 06/04/2025 CLINICAL INFORMATION: Stroke. Neurologic deficit. COMPARISON: None PROCEDURE: CT angiogram of the neck with IV contrast. Sagittal and coronal reformatted images with 3-D Maximum intensity projection reconstructions constructed under concurrent physician supervision on a independent workstation for evaluation of carotid and vertebral arteries. Automated exposure control was utilized. The [place] Symptomatic carotid Endarterectomy Trial (NASCET) method for calculating the degree of stenosis was utilized for stenosis measurements. 3-D reformatted images confirm the source data findings. stenosis is calculated as compared to the distal lumen of the ICA (NASCET). All CT scans at this facility dose modulation, iterative reconstruction, and/or weight based dosing when appropriate to reduce radiation dose to as low as reasonably achievable. FINDINGS: No acute findings at the partially visualized aortic arch. Three- vessel branching pattern. Subclavian arteries are patent. The vertebral arteries originate from the subclavian arteries and are normal in course and caliber. The common carotid arteries are patent. There is mild scattered atherosclerotic calcification. There is atherosclerotic calcification at the proximal bilateral internal carotid arteries with less than 50% stenosis.The internal carotid arteries are otherwise normal in course and caliber. Partially visualizing apic es are unremarkable. No acute findings in the soft tissues. IMPRESSION: 1. No acute findings. No significant carotid or vertebral artery stenosis. 2. Mild atherosclerotic calcification at the bilateral carotid bifurcations and proximal internal carotid arteries with less than 50% stenosis. Finalized by Stan Overton MD on 06/04/2025 2:[address] brain without contrast Result Date: 06/04/2025 CLINICAL INFORMATION: Altered mental status TECHNIQUE: CT BRAIN WO CONT CT images of the brain wereobtained. There is a 2.3 cm right thalamic hemorrhage with intraventricular extension of blood products. Blood proximal within mid the lateral ventricles as well as the third ventricle. No midline shift or basilar cisternal effacement. Chronic ischemic changes appear moderate. IMPRESSION: 2.3 cm right thalamic hemorrhage with intraventricular extension. I personally called these findings to the emergency department at time of dictation. Dr. Vaughn aware of findings. All CT scans at this facility use dose modulation, iterative reconstruction, and/or weight based dosing when appropriate to reduce radiation dose to as low as reasonably achievable. Finalized by Cody Orourke MD on 06/04/2025 2:17 PM Assessment: 70 years old male with past medical history of hypertension, hyperlipidemia, diabetes, obesity, recent DVT (on Eliquis) who had an episode of fall 3 days ago. Later on, the patient had an acute onsetof confusion earlier this morning and was taken to an outside hospital. CT head showed intraparenchymal hemorrhage and therefore the patient was transferred to [facility] for further workup. On examination, the patient is currently on room air, appears confused but no significant motor deficits at this time. Impression: R IPH with intra-ventricular extension, likely 2/2 HTN Plan: - Continue care in the intensive care unit with stroke service. - Repeat CTH stable, will continue to monitor clinically - Continue vEEG monitoring, pending reports and continue Keppra 750mg BID - Target SBP 130-150. PRN Hydralazine and labetalol - MRI Brain with and without contrast. - Code status: Full - Dispo: TBD - DVT px: Hold for now Staffed with: Dr. Monika Cuenca MD PGY-3 Neurology Resident 06/05/25 11:55 AM Cosigned by Patricia Mcclellan MD at 06/20/2025 12:18 AM EDT Associated attestation - Patricia Mcclellan MD - 06/20/2025 12:18 AM EDT ?Attending?Attestation: ?I saw the patient. I performed the critical/dill portions of the service.? I was directly involved in the management and treatment plan of the patient.? I reviewed the residents' notes. ?Additional Notes/Findings: None. ?The clinical encounter comprised of: The patient is being evaluated for stroke and is at risk for neurological deterioration. Preparing to see the patient (e.g., review of tests) Obtaining and/or reviewing separately obtained history Performing a medically appropriate examination and/or evaluation Counseling and educating the patient/family/caregiver Documenting clinical information in the electronic or other health record Independently interpreting results (not separately reported) and communicating results to the patient/family/caregiver Care coordination (not separately reported) ? Patricia Mcclellan MD Vascular Neurologist [facility] Neurology ([facility])? Important Notice:??This note was created with the assistance of a speech recognition program.? While intending to generate a timely document that accurately reflects the content of the encounter, no guarantee can be provided that every grammatical or spelling mistake has been or will be identified or corrected.? Thank you for your understanding. documented in this encounter H&P Notes * Alphonse Cuenca MD - 06/04/2025 7:30 PM EDT Neurovascular / Interventional neurology Intraparenchymal Hemorrhage Admission Note Date of admission 06/04/2025 5:25 PM PCP: CLARISA HANSEN APRN-ANDREA Reason of admission: IPH Deficit: AMS Last known well: Unclear, some time on 06/03/25 Patient seen at: ED Initial NIHSS: 9 Premorbid mRS: 0 Initial imaging: R Thalamic IPH with IVH ICH Score: 2 Initial BP reported: 134/83 Subjective: Gianni Babin is a 70 y.o. male who initially presented to an outside hospital and thereafter was transferred to [facility] via air. Past medical history significant for hypertension, DM, HLD,Obesity, DM2, recent DVT on Eliquis. Per chart review, the patient was initially taken to an outside hospital ED by EMS for evaluation of altered mental status. The patient was not aware of where he was, what year it was or who the president was. Imaging studies were done at the outside hospital including CT brain which showed 2.3 cm right thalamic hemorrhage with intraventricular extension. He was on Eliquis due to recent DVT and started on Eliquis. In the ED Kcentra was given for reversal of Eliquis. He was also given Keppra 2g at the outside hospital and started on Cardene infusion. The patient was accepted by the trauma service and transferred to [facility]. Upon arrival to [facility] ED, vascular neurology consulted. Upon my evaluation the patient is currently on room air. He appears to be confused, answering questions but incorrectly. He is able to follow commands intermittently. The patient has stable blood pressure, currently 119/80. According to the family he had an episode of fall 3 days back. However, themain onset of confusion was this morning. Past medical history: DVT on Eliquis, HTN, HLD, Obesity, DM2 Home medications: Eliquis, Aspirin, Lipitor, Lisinopril, Metformin Social history: Daily alcohol drinker, chronic smoking Home medications: (Not in a hospital admission) Past medical history: History reviewed. No pertinent past medical history. Past surgical history: No past surgical history on file. Family history: Hefamily history is not on file. Allergies: Hehas no known allergies. Social history: Social History Socioeconomic History Marital status: Spouse name: Not on file Number of children: Not on file Years of education: Not on file Highest education level: Not on file Occupational History Not on file Tobacco Use Smoking status: Not on file Smokeless tobacco: Not on file Substance and Sexual Activity Alcohol use: Not on file Drug use: Not on file Sexual activity: Not on file Other Topics Concern Not on file Social History Narrative Not on file Social Drivers of Health Financial Resource Strain: Not on file Food Insecurity: No Food Insecurity (06/04/2025) Hunger Screening Food Insecurity - Worry: Never True Food Insecurity - Inability: Never True Transportation Needs: Not on file Physical Activity: Not on file Stress: Not on file Social Connections: Not on file Interpersonal Safety: Not on file Housing Instability: Not on file Physical exam: Vital Signs: Blood pressure 120/79, pulse 79, temperature 36.7 ??C (98.1 ??F), temperature source Oral, resp. rate 14, SpO2 92%. Respiratory Source: O2 Device: Nasal cannula Admission Weight: NIHSS: 1a Level of consciousness: 1=not alert but arousable by minor stimulation to obey, answer or respond 1b. LOC questions: 1=Performs one task correctly 1c. LOC commands: 1=Performs one task correctly 2. Best Gaze: 0=normal 3. Visual: 1=Partial hemianopia 4. Facial Palsy: 0=Normal symmetric movement 5a. Motor left arm: 0=No drift, limb holds 90 (or 45) degrees for full 10 seconds 5b. Motor right arm: 0=No drift, limb holds 90 (or 45) degrees for full 10 seconds 6a. motor left le=Drift, limb holds 90 (or 45) degrees but drifts down before full 10 seconds: does not hit bed 6b Motor right le=Drift, limb holds 90 (or 45) degrees but drifts down before full 10 seconds: does not hit bed 7. Limb Ataxia: 1=Present in one limb 8. Sensory: 0=Normal; no sensory loss 9. Best Language: 1=Mild to moderate aphasia; some obvious loss of fluency or facility of comprehension without significant limitation on ideas expressed or form of expression 10. Dysarthria: 1=Mild to moderate, patient slurs at least some words and at worst, can be understood with some difficulty 11. Extinction and Inattention: 0=No abnormality Total: 9 Labs/Imaging: Objective Lab work/Imaging: Lab Results Component Value Date CALCIUM 8.9 06/04/2025 K 3.4 (L) 06/04/2025 CO2 24 06/04/2025 BUN 12 06/04/2025 CREATININE 1.31 (H) 06/04/2025 Lab Results Component Value Date WBC 4.6 06/04/2025 HGB 15.1 06/04/2025 MCV 90 06/04/2025 PLT 241 06/04/2025 Lab Results Component Value Date INR 1.5 (H) 06/04/2025 No results found for: LDL , CHOLESTEROLT Imaging: CT abdomen and pelvis with contrast Result Date: 06/04/2025 History: . fall Exam/Technique: Contiguous axial images are obtained of the abdomen and pelvis [id number] cc omnipaque 300 intravenous contrast. Coronal and sagittal reconstructions were performed and reviewed. Automatic dose exposure reduction technique utilized. Comparison: CT chest. Findings: LUNGS AND CARDIOMEDIASTINAL STRUCTURES: no abnormality. LIVER: is normal. SPLEEN: is normal. GALLBLADDER: normal. BILIARY TREE:Normal PANCREAS: normal. ADRENAL GLANDS are normal. RIGHT KIDNEY: Cortical scarring with significant caliectasis and hydronephrosis. The right ureter is dilated down to the urinary bladder. Cortical scarring. LEFT KIDNEY: Significant hydronephrosis and caliectasis. No discretecortical scarring. The left ureter is not opacified and demonstrates thick wall with dilatation. 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 There is extensive disease a lso traction into the internal and external vessels. PORTAL VEIN: Patent IVC is normal. There is noparaaortic or paracaval adenopathy. FREE AIR: Absent SIGNIFICANT FREE FLUID:absent MESENTERY: Normal BODY WALL: Normal SMALL BOWEL AND TERMINAL ILEUM: normal. COLON: Colonic diverticulosis with fecalloading without diverticulitis. APPENDIX: normal. HERNIAL ORIFICES:Fat-containing inguinal hernias.. PELVIC ORGANS: Prostate gland with dystrophic calcification. Significant degenerative labrum with thick wall and lobulated outline which may be due to chronic outlet obstruction, inflammation and neoplastic disease cannot be completely excluded. BONES AND SOFT TISSUES: Osteopenia degenerative changes. There is no loss of vertebral body height. The left hip arthroplasty partially visualized with no acute abnormality. Right hip degenerative changes noted. . 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 Significant hydronephrosis and caliectasis and hydroureter bilaterally with a thick walled urinary bladder likely related to obstruction or chronic inflammati on and the enlarged prostate gland. Reflux may be noted bilaterally. All CT scans at this facility use dose modulation, iterative reconstruction, and/or weight based dosing when appropriate to reduceradiation dose to as low as reasonably achievable. Finalized by Bradford Marroquin MD on 06/04/2025 3:[address] chest with contrast Result Date: 06/04/2025 CT CHEST W CONT 06/04/2025 3:18 PM INDICATION: Fall. Pain. COMPARISON: None TECHNIQUE: Contrast-enhanced CT images of the chest were obtained. All CT scans at this facility use dose modulation, iterative reconstruction, and/or weight based dosing when appropriate to reduce radiation dose to as low as reasonably achievable. FINDINGS: Evaluation compromised by arm positioning at time of scanning. Thyroid gland is unremarkable. No supraclavicular adenopathy. Ascending thoracic aorta measures 4.4 cm in diameter. Conventional branching of the aortic arch. Heart size is within normal limits. No pericardial effusion. Coronary artery calcifications are present. Main pulmonary trunk size is within normal limits. No enlarged mediastinal or hilar lymph nodes by size criteria. Trachea shows no acute abnormality. Secretions noted within the mid thoracic trachea. Mild nonspecific bilateral peribronchial wall thickening. No pleural effusion. No pneumothorax. Dependent atelectasis. No focal consolidation. Small right posterior diaphragmatic hernia containing fat. Chest wall soft tissue show no acute abnormality. No acute or aggressive osseous lesion. Degenerative changes of the bilateral shoulders. Remote left-sided rib fractures. Multilevel degenerative changes of the thoracic spine with slightly exaggerated thoracic kyphosis. CT abdomen was performed concurrently but reported separately. IMP RESSION: No acute posttraumatic findings within the chest. Finalized by Eron Walton MD on 06/04/2025 3:[address] cervical reconstruction Result Date: 06/04/2025 CLINICAL INFORMATION: Cervical spine pain. Neck pain PROCEDURE: Routine cervical spine protocol CT was obtained without intravenous contrast. Sagittal and coronal reformatted images were obtained from the axial data. Automated exposure control was utilized. All CT scans at this facility dose modulation, iterative reconstruction, and/or weight based dosing when appropriate to reduce radiation doseto as low as reasonably achievable. FINDINGS: Satisfactory alignment of the cervical spine. The vertebral body heights are preserved. No fracture. No malalignment. Mild multifocal degenerative changes with endplate sclerosis and osteophyte formation. The atlantoaxial space is intact with degenerative sclerosis. Posterior elements are intact with facet hypertrophy. No acute findings in the soft tissues. Please note, ligamentous injury is not well evaluated on a neutral position CT. If concern for ligamentous injury consider flex-ex radiographs or MRI. IMPRESSION: * No acute osseous abnormalities in the cervical spine. Finalized by Stan Overton MD on 06/04/2025 3:[address] angiogram head Result Date: 06/04/2025 CLINICAL INFORMATION: Altered mental status TECHNIQUE: CT angiogram of the head was performed following intravenous administration of nonionic intravenous contrast. 3-D maximum intensity projection images generated and reviewed under concurrent physician supervision. Automated exposure control was utilized. Arterial blood flow was measured to assist the stroke clinical team in the diagnosis of large vessel occlusion in patients undergoing screening for acute ischemic stroke using Rapid AI software when clinically indicated. All CT scans at this facility use dose modulation, iterative reconstruction, and/or weight based dosing when appropriate to reduce radiation dose to as low as reasonably achievable. COMPARISON: No relevant prior studies available. FINDINGS: Evaluation significantly limited due to patient motion. The internal carotid arteries are patent throughout their course in the carotid canal and cavernous segment with moderate atherosclerotic calcification. Evaluation of the anterior cerebral arteries is nondiagnostic due to patient motion. The proximal MCAs are patent, evaluation beyond this is nondiagnostic due to patient motion. The V4 segment of the vertebral arteries is patent, the basilar artery is patent. The P1 segment of the posterior cerebral arteries is patenthowever evaluation beyond this is nondiagnostic. IMPRESSION: * Partially nondiagnostic evaluation due to patient motion as described above. Moderate atherosclerotic calcification of the internal carotid arteries within the carotid canal and cavernous segment. Finalized by Amee Vargas MD on 06/04/2025 2:[address] angiogram carotid Result Date: 06/04/2025 CLINICAL INFORMATION: Stroke. Neurologic deficit. COMPARISON: None PROCEDURE: CT angiogram of the neck with IV contrast. Sagittal and coronal reformatted images with 3-D Maximum intensity projection reconstructions constructed under concurrent physician supervision on a independent workstation for evaluation of carotid and vertebral arteries. Automated exposure control was utilized. The [place] Symptomatic carotid Endarterectomy Trial (NASCET) method for calculating the degree of stenosis was utilized for stenosis measurements. 3-D reformatted images confirm the source data findings. stenosis is calculated as compared to the distal lumen of the ICA (NASCET). All CT scans at this facility dose modulation, iterative reconstruction, and/or weight based dosing when appropriate to reduce radiation dose to as low as reasonably achievable. FINDINGS: No acute findings at the partially visualized aortic arch. Three- vessel branching pattern. Subclavian arteries are patent. The vertebral arteries originate from the subclavian arteries and are normal in course and caliber. The common carotid arteries are patent. There is mild scattered atherosclerotic calcification. There is atherosclerotic calcification at the proximal bilateral internal carotid arteries with less than 50% stenosis.The internal carotid arteries are otherwise normal in course and caliber. Partially visualizing apic es are unremarkable. No acute findings in the soft tissues. IMPRESSION: 1. No acute findings. No significant carotid or vertebral artery stenosis. 2. Mild atherosclerotic calcification at the bilateral carotid bifurcations and proximal internal carotid arteries with less than 50% stenosis. Finalized by Stan Overton MD on 06/04/2025 2:[address] brain without contrast Result Date: 06/04/2025 CLINICAL INFORMATION: Altered mental status TECHNIQUE: CT BRAIN WO CONT CT images of the brain wereobtained. There is a 2.3 cm right thalamic hemorrhage with intraventricular extension of blood products. Blood proximal within mid the lateral ventricles as well as the third ventricle. No midline shift or basilar cisternal effacement. Chronic ischemic changes appear moderate. IMPRESSION: 2.3 cm right thalamic hemorrhage with intraventricular extension. I personally called these findings to the emergency department at time of dictation. Dr. Vaughn aware of findings. All CT scans at this facility use dose modulation, iterative reconstruction, and/or weight based dosing when appropriate to reduce radiation dose to as low as reasonably achievable. Finalized by Cody Orourke MD on 06/04/2025 2:17 PM Assessment: 70 years old male with past medical history of hypertension, hyperlipidemia, diabetes, obesity, recent DVT (on Eliquis) who had an episode of fall 3 days ago. Later on, the patient had an acute onsetof confusion earlier this morning and was taken to an outside hospital. CT head showed intraparenchymal hemorrhage and therefore the patient was transferred to [facility] for further workup. On examination, the patient is currently on room air, appears confused but no significant motor deficits at this time. Impression: R IPH with intra-ventricular extension, likely 2/2 HTN Plan: - Admit to intensive care unit with stroke service. - Repeat CTH in 6 hours, if any worsening will consult neurosurgery STAT. - Start vEEG monitoring and continue Keppra 750mg BID - Target SBP 130-150. PRN Hydralazine and labetalol - MRI Brain with and without contrast. - Code status: Full, discussed with family - Dispo: TBD - DVT px: Hold for now Discussed with Dr. Jennifer Cuenca MD PGY-3 Neurology Resident 06/04/25 7:30 PM Cosigned by Patricia Mcclellan MD at 06/20/2025 12:15 AM EDT Associated attestation - Patricia Mcclellan MD - 06/20/2025 12:15 AM EDT ?Attending?Attestation: ?I saw the patient. I performed the critical/dill portions of the service.? I was directly involved in the management and treatment plan of the patient.? I reviewed the residents' notes. ?Additional Notes/Findings: None. ?The clinical encounter comprised of: The patient is being evaluated for stroke and is at risk for neurological deterioration. Preparing to see the patient (e.g., review of tests) Obtaining and/or reviewing separately obtained history Performing a medically appropriate examination and/or evaluation Counseling and educating the patient/family/caregiver Documenting clinical information in the electronic or other health record Independently interpreting results (not separately reported) and communicating results to the patient/family/caregiver Care coordination (not separately reported) ? Patricia Mcclellan MD Vascular Neurologist [facility] Neurology ([facility])? Important Notice:??This note was created with the assistance of a speech recognition program.? While intending to generate a timely document that accurately reflects the content of the encounter, no guarantee can be provided that every grammatical or spelling mistake has been or will be identified or corrected.? Thank you for your understanding. * Christiano Novoa MD - 06/04/2025 6:54 PM EDT Images from the original note were not included. Trauma Surgery History & Physical Examination /Consultation Note Patient: Gianni Babin Date of : 1955 Estimated time of injury: unsure LOC: Unknown Transport: EMS from scene Trauma level: Trauma Consult Work related: No History of Present Illness Gianni Babin is an 70 y.o. White or male. He was brought in to the ED by his sonan brother today. According to family he woke up this morning around 530 am and was able to make his coffee and then went into the bathroom. He soon found him there approximately 4 hours later. He was confused at the time and through in was the . He was taken to an outside facility where he was found to have a thalamic bleed and transferred to us. He is still AOx2 on arrival only oriented to person and place. Family states that he might have fallen on Wednesday but unsure if he hit his head or LOC. He was diagnosed with a DVT of the left leg and was started on eliquis. He currently denies any pain, except for a headache. Independently reviewed external notes from outside hospital when available. Past Medical History History reviewed. No pertinent past medical history. Trauma Past Surgical History No past surgical history on file. Travel Screening Question Response Have you been in contact with someone who was sick? No / Unsure Do you have any of the following new or worsening symptoms? None of these Have you traveled internationally or domestically in the last month? No Travel History Travel since 05/05/25 No documented travel since 05/05/25 Family History History reviewed. No pertinent family history. Review of Systems Review of Systems (Positive Findings in Bold) Const: Fever / Chills / Weight Loss / Recent falls Eyes: Blurry vision/ Vision Change HEENT: LANDERS / Neck Pain / Otorrhea / Rhinorrhea RESP: SOB / Cough / Wheeze CARDIAC: CP / Palpitations / Edema GI: N / V / Abd Pain / Diarrhea / Constipation : Hematuria / Discharge MS: Weakness / Pain / Dec ROM Integ: Rashes / Poorly healing wounds Neuro: LANDERS / Gait imbalance / Increased confusion / Numbness / Tingling / Paralysis Psych: Depression / Anxiety / Hallucinations / Suicide Allergies No Known Allergies Home Meds Prior to Admission medications Not on File Immunizatons Immunization History Administered Date(s) Administered COVID-19, mRNA, LNP-S, PF, 100mcg/0.5mL Dose 12/02/2020, 12/30/2020, 08/19/2021 Last Tetanus: Unsure Social History Social History Socioeconomic History Marital status: Spouse name: Not on file Number of children: Not on file Years of education: Not on file Highest education level: Not on file Occupational History Not on file Tobacco Use Smoking status: Not on file Smokeless tobacco: Not on file Substance and Sexual Activity Alcohol use: Not on file Drug use: Not on file Sexual activity: Not on file Other Topics Concern Not on file Social History Narrative Not on file Social Drivers of Health Financial Resource Strain: Not on file Food Insecurity: No Food Insecurity (06/04/2025) Hunger Screening Food Insecurity - Worry: Never True Food Insecurity - Inability: Never True Transportation Needs: Not on file Physical Activity: Not on file Stress: Not on file Social Connections: Not on file Interpersonal Safety: Not on file Housing Instability: Not on file Substance Use: ETOH Yes, heavy drinker approximately 10-12 beers a day Tobacco Yes, about 1 pack a day Drugs No Support: Lives with Son 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 Last Weights: Wt Readings from Last 3 Encounters: 06/04/25 93 kg (205 lb) I/O's:No intake or output data in the 24 hours ending 06/04/25 1854 O2 Device: Nasal cannula Last 24 hr Labs Recent Results (from the past 24 hours) Extra Tubes Collection Time: 06/04/25 1:43 PM Narrative The following orders were created for panel order Extra Tubes. Procedure Abnormality Status --------- ------ Light Blue Top[[id number]] Final result Please view results for these tests on the individual orders. Light Blue Top Collection Time: 06/04/25 1:43 PM Result Value Ref Range Extra Tube Auto Resulted APTT Collection Time: 06/04/25 1:43 PM Result Value Ref Range APTT 35 26 - 37 sec Protime & INR Collection Time: 06/04/25 1:43 PM Result Value Ref Range PROTIME 16.7 (H) 9.8 - 13.2 sec INR 1.5 (H) 0.9 - 1.2 CBC auto differential Collection Time: 06/04/25 1:45 PM Result Value Ref Range WBC 4.6 4 - 11 x10E9/L RBC Count 4.84 4.1 - 5.7 X10E12/L Hemoglobin 15.1 13 - 17 g/dL Hematocrit 43.6 39 - 50 % MCV 90 80 - 100 fL MCH 31.2 27 - 34 pg MCHC 34.7 32 - 36 g/dL RDW 13.7 11.5 - 15 % Platelet Count 241 150 - 450 X10E9/L MPV 6.8 (L) 7 - 12 fL Neutrophils % 54.2 % Lymphocytes % 30.5 % Monocytes % 10.3 % Eosinophils % 3.9 % Basophils % 1.1 % Neutrophils Absolute (A) 2.5 1.5 - 6.6 10*3/uL Lymphocytes Absolute 1.4 1.0 - 3.5 10*3/uL Monocytes Absolute 0.5 0.0 - 0.9 10*3/uL Eosinophils Absolute 0.2 0.0 - 0.4 10*3/uL Basophils Absolute 0.1 0.0 - 0.2 10*3/uL Differential Type AUTOMATED DIFFERENTIAL Type and screen(includes indirect rita) Collection Time: 06/04/25 1:45 PM Result Value Ref Range ABO O RH Positive Antibody Screen Negative Ethanol Collection Time: 06/04/25 1:45 PM Result Value Ref Range ETHANOL <0.010 <=0.080 g/dL Lactate w/ Reflex Collection Time: 06/04/25 1:45 PM Result Value Ref Range LACTATE W/REFLEX 1.3 0.4 - 2.0 mmol/L Narrative Result did not trigger repeat Lactate, re-order if needed. Magnesium Collection Time: 06/04/25 1:45 PM Result Value Ref Range MAGNESIUM 1.9 1.8 - 2.6 mg/dL Ammonia Collection Time: 06/04/25 1:45 PM Result Value Ref Range AMMONIA 22 11 - 35 umol/L Comprehensive metabolic panel Collection Time: 06/04/25 1:45 PM Result Value Ref Range SODIUM 135 134 - 146 mmol/L POTASSIUM 3.4 (L) 3.5 - 5.0 mmol/L CHLORIDE 99 98 - 109 mmol/L CARBON DIOXIDE 24 22 - 32 mmol/L ANION GAP 12 5 - 15 mmol/L BLOOD UREA NITROGEN 12 5 - 27 mg/dL CREATININE 1.31 (H) 0.70 - 1.20 mg/dL GLUCOSE 169 (H) 65 - 99 mg/dL CALCIUM 8.9 8.5 - 10.5 mg/dL TOTAL PROTEIN 7.1 6.0 - 8.0 g/dL ALBUMIN 3.7 3.2 - 5.3 g/dL ALKALINE PHOSPHATASE 71 39 - 130 U/L AST 21 <=41 U/L ALT 15 <=40 U/L BILIRUBIN,TOTAL 0.7 0.3 - 1.2 mg/dL EGFR Non-Race Dependent 59 (L) >=60 ml/min/1.73sq.m Acetaminophen level Collection Time: 06/04/25 1:45 PM Result Value Ref Range ACETAMINOPHEN 6.5 (L) 10.0 - 30.0 ug/mL Narrative Reference ranges are for therapeutic limits. Salicylate level Collection Time: 06/04/25 1:45 PM Result Value Ref Range SALICYLATE <4.0 2.0 - 25.0 mg/dL Narrative Reference ranges are for therapeutic limits. BB ARC TUBES Collection Time: 06/04/25 1:45 PM Result Value Ref Range Extra Tube Auto Resulted Blood gas, venous Collection Time: 06/04/25 2:19 PM Result Value Ref Range Sample type VENOUS pH, Venous 7.418 7.320 - 7.420 pCO2, Venous 39.2 35.0 - 50.0 mmHg pO2, Venous 48 30 - 50 mmHg Base, Excess 1.0 0.0 - 2.0 mmol/L HCO3, Venous 25.3 (H) 20.0 - 24.0 mmol/L %O2 Saturation, Venous 84.0 % Curt's test N/A Sample site N/A Insp. O2 conc. 21 % Source Of Oxygen Room Air ABO Rh Repeat Collection Time: 06/04/25 2:31 PM Result Value Ref Range ABO O RH Positive [place] draw Collection Time: 06/04/25 6:00 PM Narrative The following orders were created for panel order [place] draw. Procedure Abnormality Status --------- ------ Light Blue Top[[id number]] In process PST TOP[[id number]] In process Lavender Top[[id number]] In process Cruz Top On Ice[[id number]] In process Please view results for these tests on the individual orders. ABO Rh Repeat Collection Time: 06/04/25 6:00 PM Result Value Ref Range ABO O RH Positive Cultures: Microbiology Results (last 21 days) No results found for the last 504 hours. Independently reviewed trauma specific results. Radiology Results CT abdomen and pelvis with contrast Result Date: 06/04/2025 Narrative: History: . fall Exam/Technique: Contiguous axial images are obtained of the abdomen and pelvis with 100 cc omnipaque 300 intravenous contrast. Coronal and sagittal reconstructions were performed and reviewed. Automatic dose exposure reduction technique utilized. Comparison: CT chest. Findings: LUNGS AND CARDIOMEDIASTINAL STRUCTURES: no abnormality. LIVER: is normal. SPLEEN: is normal. GALLBLADDER: normal. BILIARY TREE:Normal PANCREAS: normal. ADRENAL GLANDS are normal. RIGHT KIDNEY: Cortical scarring with significant caliectasis and hydronephrosis. The right ureter is dilated down to the urinary bladder. Cortical scarring. LEFT KIDNEY: Significant hydronephrosis and caliectasis. No discrete cortical scarring. The left ureter is not opacified and demonstrates thick wall with dilatation. 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 There is extensive disease also traction into the internal and external vessels. PORTAL VEIN: Patent IVC is normal. There is no paraaortic or paracaval adenopathy. FREE AIR: Absent SIGNIFICANT FREE FLUID:absent MESENTERY: Normal BODY WALL: Normal SMALL BOWEL AND TERMINAL ILEUM: normal. COLON: Colonic diverticulosiswith fecal loading without diverticulitis. APPENDIX: normal. HERNIAL ORIFICES:Fat-containing inguinal hernias.. PELVIC ORGANS: Prostate gland with dystrophic calcification. Significant degenerative labrum with thick wall and lobulated outline which may be due to chronic outlet obstruction, inflammation and neoplastic disease cannot be completely excluded. BONES AND SOFT TISSUES: Osteopenia degenerative changes. There is no loss of vertebral body height. The left hip arthroplasty partially visualized with no acute abnormality. Right hip degenerative changes noted. . 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 Significant hydronephrosis and caliectasis andhydroureter bilaterally with a thick walled urinary bladder likely related to obstruction or chronic inflammation and the enlarged prostate gland. Reflux may be noted bilaterally. All CT scans at this facility use dose modulation, iterative reconstruction, and/or weight based dosing when appropriate to reduce radiation dose to as low as reasonably achievable. Finalized by Bradford Marroquin MD on 06/04/2025 3:[address] chest with contrast Result Date: 06/04/2025 Narrative: CT CHEST W CONT 06/04/2025 3:18 PM INDICATION: Fall. Pain. COMPARISON: None TECHNIQUE: Contrast-enhanced CT images of the chest were obtained. All CT scans at this facility use dose modulation, iterative reconstruction, and/or weight based dosing when appropriate to reduce radiation doseto as low as reasonably achievable. FINDINGS: Evaluation compromised by arm positioning at time of scanning. Thyroid gland is unremarkable. No supraclavicular adenopathy. Ascending thoracic aorta measures 4.4 cm in diameter. Conventional branching of the aortic arch. Heart size is within normal limits. No pericardial effusion. Coronary artery calcifications are present. Main pulmonary trunk size is within normal limits. No enlarged mediastinal or hilar lymph nodes by size criteria. Trachea shows no acute abnormality. Secretions noted within the mid thoracic trachea. Mild nonspecific bilateral peribronchial wall thickening. No pleural effusion. No pneumothorax. Dependent atelectasis. No focal consolidation. Small right posterior diaphragmatic hernia containing fat. Chest wall soft tissue show no acute abnormality. No acute or aggressive osseous lesion. Degenerative changes of the bilateral shoulders. Remote left-sided rib fractures. Multilevel degenerative changes of the thoracic spinewith slightly exaggerated thoracic kyphosis. CT abdomen was performed concurrently but reported separately. IMPRESSION: No acute posttraumatic findings within the chest. Finalized by Eron Walton MD on 06/04/2025 3:[address] cervical reconstruction Result Date: 06/04/2025 Narrative: CLINICAL INFORMATION: Cervical spine pain. Neck pain PROCEDURE: Routine cervical spine protocol CT was obtained without intravenous contrast. Sagittal and coronal reformatted images were obtained from the axial data. Automated exposure control was utilized. All CT scans at this facility dose modulation, iterative reconstruction, and/or weight based dosing when appropriate to reduce radiation dose to as low as reasonably achievable. FINDINGS: Satisfactory alignment of the cervical spine. The vertebral body heights are preserved. No fracture. No malalignment. Mild multifocal degenerat nighat changes with endplate sclerosis and osteophyte formation. The atlantoaxial space is intact withdegenerative sclerosis. Posterior elements are intact with facet hypertrophy. No acute findings in the soft tissues. Please note, ligamentous injury is not well evaluated on a neutral position CT. Ifconcern for ligamentous injury consider flex-ex radiographs or MRI. IMPRESSION: * No acute osseous abnormalities in the cervical spine. Finalized by Stan Overton MD on 06/04/2025 3:[address] angiogram head Result Date: 06/04/2025 Narrative: CLINICAL INFORMATION: Altered mental status TECHNIQUE: CT angiogram of the head was performed following intravenous administration of nonionic intravenous contrast. 3-D maximum intensity projection images generated and reviewed under concurrent physician supervision. Automated exposure control was utilized. Arterial blood flow was measured to assist the stroke clinical team in the diagnosis of large vessel occlusion in patients undergoing screening for acute ischemic stroke using Rapid AI software when clinically indicated. All CT scans at this facility use dose modulation, iterative reconstruction, and/or weight based dosing when appropriate to reduce radiation dose to as low as reasonably achievable. COMPARISON: No relevant prior studies available. FINDINGS: Evaluation significantly limited due to patient motion. The internal carotid arteries are patent throughout their course in the carotid canal and cavernous segment with moderate atherosclerotic calcification. Evaluation of the anterior cerebral arteries is nondiagnostic due to patient motion. The proximal MCAs are patent, evaluation beyond this is nondiagnostic due to patient motion. The V4 segment of the vertebral arteries is patent, the basilar artery is patent. The P1 segment of the posterior cerebral arteries is patent however evaluation beyond this is nondiagnostic. IMPRESSION: * Partially nondiagnostic evaluation due to patient motion as described above. Moderate atherosclerotic calcification of the internal carotid arteries within the carotid canal and cavernous segment. Finalized by Amee Vargas MD on 06/04/2025 2:[address] angiogram carotid Result Date: 06/04/2025 Narrative: CLINICAL INFORMATION: Stroke. Neurologic deficit. COMPARISON: None PROCEDURE: CT angiogram of the neck with IV contrast. Sagittal and coronal reformatted images with 3-D Maximum intensity projection reconstructions constructed under concurrent physician supervision on a independent workstation for evaluation of carotid and vertebral arteries. Automated exposure control was utilized. The [place] Symptomatic carotid Endarterectomy Trial (NASCET) method for calculating the degreeof stenosis was utilized for stenosis measurements. 3-D reformatted images confirm the source data findings. stenosis is calculated as compared to the distal lumen of the ICA (NASCET). All CT scans at this facility dose modulation, iterative reconstruction, and/or weight based dosing when appropriate to reduce radiation dose to as low as reasonably achievable. FINDINGS: No acute findings at the partially visualized aortic arch. Three-vessel branching pattern. Subclavian arteries are patent. Thevertebral arteries originate from the subclavian arteries and are normal in course and caliber. Thecommon carotid arteries are patent. There is mild scattered atherosclerotic calcification. There isatherosclerotic calcification at the proximal bilateral internal carotid arteries with less than 50% stenosis. The internal carotid arteries are otherwise normal in course and caliber. Partially visualizing apices are unremarkable. No acute findings in the soft tissues. IMPRESSION: 1. No acute findings. No significant carotid or vertebral artery stenosis. 2. Mild atherosclerotic calcification at the bilateral carotid bifurcations and proximal internal carotid arteries with less than 50% stenosis. Finalized by Stan Overton MD on 06/04/2025 2:[address] brain without contrast Result Date: 06/04/2025 Narrative: CLINICAL INFORMATION: Altered mental status TECHNIQUE: CT BRAIN WO CONT CT images of thebrain were obtained. There is a 2.3 cm right thalamic hemorrhage with intraventricular extension ofblood products. Blood proximal within mid the lateral ventricles as well as the third ventricle. Nomidline shift or basilar cisternal effacement. Chronic ischemic changes appear moderate. IMPRESSION: 2.3 cm right thalamic hemorrhage with intraventricular extension. I personally called these findings to the emergency department at time of dictation. Dr. Vaughn aware of findings. All CT scans at this facility use dose modulation, iterative reconstruction, and/or weight based dosing when appropria te to reduce radiation dose to as low as reasonably achievable. Finalized by Cody Orourke MD on 06/04/2025 2:17 PM Vas venous duplex lwr single left Result Date: 05/15/2025 Narrative: HISTORY: Left leg swelling. COMPARISON: None. TECHNIQUE: The left lower extremity veins were evaluated with color Doppler, grayscale imaging, and spectral analysis while using compression and augmentation when possible. RESULT: Abnormal compression involving the left popliteal vein with apparent segment of lack of vascular flow, suggestive of occlusive DVT, with other areas of vascularflow in the left popliteal vein. Abnormal compression involving the left peroneal and posterior tibial deep calf veins suggestive of DVT. Normal compression and vascular flow of the left common femoral vein and left superficial femoral vein. Normal compression of the greater saphenous vein without evidence for SVT. Impression: Positive for acute DVT involving the left popliteal vein and left deep calf veins. ELECTRONICALLY SIGNED BY: Rick Tidwell MD Independently reviewed radiographic studies to evaluate for acute traumatic injuries. Physical Exam Physical Exam Constitutional He appears well-developed and well-nourished. No distress. HENT Head Normocephalic and atraumatic. Ears Right Ear: External ear normal. Left Ear: External ear normal. Eyes: EOM are normal. Pupils are equal, round, and reactive to light. Pupils are 3mm and reactive to light Neck Normal range of motion. Cardiovascular: Normal rate and regular rhythm. Pulses: intact distal pulses Heart Sounds: normal heart sounds. Pulmonary/Chest: Effort normal and breath sounds normal. Abdominal: Bowel sounds are normal. Soft. There is no abdominal tenderness. Musculoskeletal: General: Normal range of motion. Cervical back: Normal range of motion. Neurological: He is alert. Orientation: He oriented to person and oriented to place. Aox1-2. He knows he name, birthday, and that he's at an ER but not sure which one. He unsure what year it is or who the current president is. No muscle weakness or paresthesia Motor: Left Side Strength: Shoulder Elbow: 4/5 Skydiving Instructor: 4/5 Hip: 4/5 Knee: 4/5 Dorsi/Plantar Flexion: 4/5 Right Side Strength: Shoulder Elbow: 4/5 Skydiving Instructor: 4/5 Hip: 4/5 Knee: 4/5 Dorsi/Plantar Flexion: 4/5 Skin: Skin is warm and dry. No obvious signs of trauma. Bilateral lower extremity pitting edema 2+ bilaterally Airway: Intact Breathing: Intact Circulation: Intact GCS: 15 Eye: Verbal Motor 1 Does not open 1 No sounds 1 No movement 2 Opens to pain 2 Incomprehensible sounds 2 Extension w/pain 3 Opens to voice 3 Incoherent words 3 Flex w/ pain 4 Spontaneous 4 Confused / disoriented 4 Withdraw from pain 5 Oriented 5 Localizes to painful stimuli 6 Obeys commands CAGE-AID Andrzej [employer] 1994 Have you felt the need to cut down on your drinking or drug use? no Do you feel annoyed by people complaining about your drinking or drug use? no Do you ever feel guilty about your drinking or drug use? no Have you ever had a drink or used drugs first thing in the morning to steady your nerves or to get rid of a hangover? no Scorin or more positive terms indicate the need for a brief intervention or social work consult. ASSESSMENT / PLAN Gianni Babin is an 70 y.o. White or male. He was brought in to the ED by his sonan brother today. According to family he woke up this morning around 530 am and was able to make his coffee and then went into the bathroom. He soon found him there approximately 4 hours later. He was confused at the time and through in was the s. He was taken to an outside facility where he was found to have a thalamic bleed and transferred to us. He is still AOx2 on arrival only oriented to person and place. Family states that he might have fallen on Wednesday but unsure if he hit his head or LOC. He was diagnosed with a DVT of the left leg and was started on eliquis. He currently denies any pain, except for a headache. Mechanism: Unknown Tertiary Examination: To be completed within 24hrs of admission if possible. Injuries/Traumatic issues: 1 Unknown -TraumaGram -CT Head -CT Cervical spine -CT Chest -CT Abdomen and pelvis -TraumaLabs -CMP -CBC -Coags, PT/INR -Amylase -Lipase -Ethanol -Urine Drug screen -Urinalysis -Trauma Meds -Ancef -Pepcid -Tetanus Acute post traumatic pain - currently on multimodal therapy - reassess daily and as needed for adequacy - pain is currently controlled Thalamic Bleed as evidenced by CT findings on 06/04/25 without cerebral edema without brain compression without loss of consciousness -Consult to neurosurgery Dr. Tiwari -Awaiting plan -Neuro interventional was Consulted -Awaiting recommendations -Frequent neuro checks - All intracranial hemorrhages come with the risk of worsening mentation which could result in needfor emergent operative intervention or intubation for airway protection. -Repeat CT Brain in AM -Maintain systolic blood pressure <140mmHg -Keppra for seizure prophylaxis -Load 1g STAT followed by 500mg BID for 7 days -Chemical anticoagulation on hold -Speech therapy for cognitive evaluation History of Alcohol abuse as evidence by positive CAGE screen or family report - BAL on admission <.010 - Monitor for signs of withdrawal including tremulousness, agitation and hallucinations - May require dose titration based on symptoms - Symptoms may progress to DT's and require closer observation - Consult social work for resources related substance abuse Comorbidities/Medical issues: Neuro- Pulm- Cardio- GI- - Heme- DVT, diagnosed 05/15/25 started on eliquis ID- MSK- Endo- Lytes- Lines and Tubes: Bilateral IV's Nutrition: NPO Prophylaxis: Keppra Last BM: unsure Disposition: Sign off to Neuro Interventional, Bleed is non traumatic and no other traumatic injuries seen. Medical Decision Making: Medium ER Procedures: 1. None CONSULTATIONS Consultations:Neurology and Neuro Interventional Did consultants call back in 10min: yes Trauma Team Present: Carlton TRUJILLO Trauma Team Arrival time: 1755 Attending: Dr. Peter Rajput MD saw patient on the floor Christiano Novoa MD 06/04/25 6:54 PM Trauma can be reached via Patient Touch Pager: [phone] Cosigned by Peter Rajput MD at 06/04/2025 11:23 PM EDT Associated attestation - Peter Rajput MD - 06/04/2025 11:23 PM EDT ATTENDING NOTE I saw the patient. I Performed or participated and was physically present during the critical/dill portions of the service. I was directly involved in the management and treatment plan of the patient.I reviewed the resident's note. Trauma consult from outside facility with a history of alcohol abuse. Clear decline in neurologic status but remained hemodynamically stable. However, clear acute bleed in the setting of DOAC use. Noclear traumatic injuries. We will defer management to stroke and neurosurgery following tertiary examination. Admit to neurosurgical ICU for q.1 hour neuro checks, received PCC at outside hospital for Eliquis induced coagulopathy, if any need for trauma to participate in care, we will happily do so. Evaluation included: Preparing to see the patient (e.g., review of tests) Obtaining and/or reviewing separately obtained history Independent interpretation of imaging: Performing a medically appropriate examination and/or evaluation Counseling and educating the patient/family/caregiver Call with questions or clarification anytime. Peter Rajput MD [facility] Robotic Surgery Trauma, Acute Care Surgery and Surgical Critical Care documented in this encounter Consult Notes * Trini Pradhan, BRANDON - 06/13/2025 12:04 PM EDTAssociated Order(s): IP CONSULT TO NUTRITION SERVICES NUTRITION BRIEF NOTE: Consult received as patient repeatedly pulls NGT. Patient is eating 100% of meals, but is not cleared for any fluid intake orally at this time per BLOCK HACKER. Inpatient Nutrition Support History: 06/06 TF started 06/13 - TF discontinued TF: Osmolite 1.5 at 65 ml/hr to provide 2340kcal 97g protein 1189ml free water plus `1200ml free water flushes for 2389ml/day 100% RDI Anthropometrics: Ht Readings from Last 1 Encounters: 06/09/25 182.9 cm (6') Vitals Last 3 Weight Readings 06/09/25 0000 06/10/25 0500 06/11/25 0445 Weight: 116.3 kg (256 lb 6.3 oz) 111.4 kg (245 lb 9.5 oz) 109.1 kg (240 lb 8.4 oz) Admit Weight: 117.3kg (Bed Scale, 06/04) [place] Body Weight: 80.9kg Weight Changes: - Admit Body Mass Index: 35.1 kg/m??. Current Body Mass Index: Body mass index is 32.62 kg/m??. Comparative Standards: Estimated Energy Needs: 3633-8975 kcals daily. Method and weight used: 25-32 kcal/kg ibw Estimated Protein Needs: 97-160 grams daily. Method and weight used: 1.2-2g protein/kg ibw Estimated Fluid Needs: 5337-7464 ml daily. Method weight used: 1 ml/kg/kcal Comments: general needs NUTRITION DIAGNOSIS: Intake Diagnosis: Inadequate fluid intake (NI 3.1) related to swallowing difficulty as evidenced byno fluids per BLOCK HACKER. NUTRITION INTERVENTIONS: Continue current diet order Spoke with Clifford TELLEZ and Bang ZULUAGA regarding fluids RECOMMENDATIONS: Provide fluids via IV pending next speech eval May need PEG for fluids pending BLOCK HACKER eval GOAL(S): Meet estimated calorie and protein needs. NUTRITION MONITORING AND EVALUATION: PO intakes, weight trend, labs, POC and overall status. Trini Pradhan RD, BRANDON Clinical Dietitian Direct Line * Pietro Dela Cruz PA-C - 06/11/2025 5:04 PM EDTAssociated Order(s): IP CONSULT TO ENDOCRINOLOGY Images from the original note were not included. [facility] [place] [facility] [address] [place] [address] Service Pager: Reinier Patel MD, Interim Chief MD Henry Mulligan MD Margo Joubran, PA-C Alexandrea Vizzaccaro, PA-C Austin Howard, PA-C Manali Pragani, MD, Fellow Herbie Zhao MD, Fellow Ricardo Real MD, Fellow Katrin Jules MD, Fellow NO NEED to PAGE for NEW CONSULTS Secure Giving Assistant chat to Academic Endocrinology Page for immediate attention. Diabetes Management Service Consult Note Patient : Gianni Babin; 70 y.o. Location: A805/[id number] Admit Date: 06/04/2025 Hospital Day: Hospital Day: 8 Reason for Consult: Diabetes management Assessment/Plan Blood Glucose Monitoring Results, Interpretation Results from last 7 days Lab Units 06/11/25 1226 06/11/25 0833 06/11/25 0305 06/10/25 0252 06/09/25 0316 06/08/25 0249 06/07/25 0407 06/06/25 0652 BEDSIDE GLUCOSE mg/dL 340* 328* -- -- -- -- -- -- GLUCOSE mg/dL -- -- 303* 269* 214* 162* 171* 145* Results/Impression/Conclusion: [] Basal/Bolus insulin imbalance with significant glycemic variability: consider adjusting basal insulin-bolus insulin ratio close to 50%-50% of TDD (total daily insulin) [] Overnight blood glucose reduction: consider decreasing basal insulin (Lantus) or bedtime correctional insulin (Humalog) [] Fasting hypoglycemia: consider decreasing basal insulin (Lantus) or bedtime correctional insulin(Humalog) [] Postprandial hypoglyemia: consider decreasing prandial or meal insulin (Humalog) after [] breakfast [] lunch [] evening meal [] nighttime snack [] Hypoglycemia due to over-correction [] Fasting hyperglycemia: consider increasing basal insulin (Lantus) [] Postprandial hyperglycemia: consider increasing prandial or meal insulin (Humalog) after [] breakfast [] lunch [] evening meal [] nighttime snack [x] Hyperglycemia due to tube feeds Generally, change insulin by 10 to 30 % depending on the severity of glycemic excursions. For noncritically ill individuals (those not in the ICU), a glycemic goal of 100-180 mg/dL (premeal<140 mg/dL) is recommended. For most critically ill individuals (those in the ICU), a glycemic goal of 140- 180 mg/dL is recommended. For selected individuals (e.g., those undergoing cardiac surgery), more stringent glycemic goals (110-140 mg/dL) may be appropriate. Blood glucoses above 200 mg/dl are CMS monitored performance measures. ASSESSMENT and PLAN: [x] Lab results below were reviewed Gianni Babin has diabetes mellitus type 2 complicated by cardiovascular disease. Admitted with intracerebral hemorrhage. 1. Hyperglycemia due to tube feeds - at goal 65 ml/h 2. DM Type 2 with hyperglycemia Last HbA1c: Lab Results Component Value Date HGBA1C 8.3 (H) 06/07/2025 Results from last 7 days Lab Units 06/11/25 0305 CREATININE mg/dL 1.84* EGFR (CKD-EPI) NON-RACE DEPENDENT ml/min/1.73sq.m 39* The following changes were made: Basal insulin: Glargine (or Lantus) : _10_units, [x] daily AM [] daily at bedtime [] BID (9 AM, 9 PM) Prandial or meal insulin: Lispro (or Humalog) [] by insulin to carb ratio = __ units: 15 grams of carbohydrate in a meal AC [x] _ 4 _ units every 4 hours for continuous tube feeding (Provide ~30% of TDI as basal insulin) Correctional insulin: Lispro (or Humalog): [] 1-5 AC (above 150), 1-4 HS (above 200) [] 2-10 AC (above 150), 2-8 HS (above 200) [] 3-15 AC (above 150), 3-12 HS (above 200) For while NPO or tube feeding or TPN [] 1-5 q4h (above 180) [x] 2-10 q4h (above 180) [] 3-15 q4h (above 180) -starting scheduled Humalog 4 units q.4h while on tube feeds -continue medium intensity sliding scale q.4h -starting Lantus 10 units daily Thank you for consulting our Diabetes Management Team (Endocrinology). We will continue to follow up. Subjective History of Present Illness: Gianni Babin is a 70 y.o. male with HLD, HTN, diabetes mellitus type 2 who was admitted with intracerebral hemorrhage. HPI provided by patient's / Chart review. Consult for diabetes management. Denies seeing endocrinology for outpatient management previously. Unsure of compliance to metformin. Denies prior insulin use, glp1, or additional p.o. antihyperglycemics. A1c 8.3% 06/07/2025 Diabetes History:* history provided by patient's Duration of Diabetes: Diagnosed- unsure Complications of Diabetes: Retinopathy: No Nephropathy: No Peripheral neuropathy: No Autonomic neuropathy: No Cardiovascular disease: No Cerebrovascular disease: Yes Peripheral arterial disease: No Home regimen: * per chart review Diabetes medications: metformin 1000 mg b.I.d. Home blood glucose monitoring: no Hypoglycemia frequency: unsure Hypoglycemic awareness: unsure Family History: Family history of diabetes: unsure Steroids / Other Glycemia-Affecting Medications: [No] Inpatient diet/nutrition: Dietary Orders (From admission, onward) Start Ordered 06/10/25 1300 Free water 4 times daily Question: Amount in mL Answer: 300 06/10/25 0952 06/06/25 1313 Tube feeding No tray-Continuous Tube feeding No Tray-Continuous; Nasogastric or Oralgastric feeding tube; Standard 1.5 kcal; 25 (once enterla access placement is confirmed); 10; Every6 hours; 65 Continuous Comments: Osmolite 1.5 References: Formulary Card Question Answer Comment Diet Type: Tube feeding No Tray-Continuous Tube Type: Nasogastric or Oral gastric feeding tube Tube Feeding Formula: Standard 1.5 kcal Tube Feeding Start Rate (mL/hour): 25 once enterla access placement is confirmed Increase Rate by (mL/hour): 10 Frequency of Rate increase: Every 6 hours Goal Rate (mL/hour): 65 06/06/25 1314 Past Medical History: Diagnosis Date Diabetes mellitus type 2, controlled ([facility]) DVT (deep venous thrombosis) ([facility]) GERD (gastroesophageal reflux disease) Hyperlipidemia Hypertension ICH (intracerebral hemorrhage) ([facility]) 06/04/2025 Osteoarthritis Past Surgical History: Procedure Laterality Date TONSILLECTOMY TOTAL HIP ARTHROPLASTY 06/2010 Prior to Admission medications Medication Sig Start Date End Date Taking? Authorizing Provider aspirin 81 mg Take 1 tablet (81 mg total) by mouth in the morning. Yes Not In System Ref Prov atorvastatin (LIPITOR) 20 mg tablet Take 1 tablet (20 mg total) by mouth every morning. TAKE 1 TABLET (20 MG) BY MOUTH IN THE MORNING 05/15/25 Yes Not In System Ref Prov ELIQUIS 5 mg tablet Take 1 tablet (5 mg total) by mouth in the morning and 1 tablet (5 mg total) before bedtime. Yes Not In System Ref Prov fenofibrate (LOFIBRA) 160 mg tablet Take 1 tablet (160 mg total) by mouth in the morning. 05/15/25 Yes Not In System Ref Prov lisinopriL (PRINIVIL,ZESTRIL) 40 mg tablet Take 1 tablet (40 mg total) by mouth in the morning. 05/15/25 02/09/26 Yes Not In System Ref Prov magnesium aspart,citrate,oxide (TRIPLE MAGNESIUM COMPLEX) 400 mg magnesium capsule Take 400 mg by mouth in the morning. Yes Not In System Ref Prov metFORMIN (GLUCOPHAGE) 1000 mg tablet Take 1 tablet (1,000 mg total) by mouth in the morning and 1 tablet (1,000 mg total) in the evening. Take with meals. 05/15/25 05/10/26 Yes Not In System Ref Prov ACCU-CHEK GUIDE ME GLUCOSE MTR misc USE DAILY OR DIRECTED FOR MONITORING OF DIABETES. 05/15/25 Not In System Ref Prov ACCU-CHEK GUIDE TEST STRIPS strip USE DAILY 05/15/25 Not In System Ref Prov ACCU-CHEK SOFTCLIX LANCETS lancets USE TO TEST DAILY 05/15/25 Not In System Ref Prov Current Facility-Administered Medications: amLODIPine (NORVASC) tablet 10 mg, 10 mg, g-tube, Daily, Adan Plasencia MD, 10 mg at 06/11/25 0837 calcium gluconate 3,000 mg in sodium chloride 0.9 % 100 mL IVPB, 3,000 mg, intravenous, PRN, Adan Reyna MD calcium gluconate 4,000 mg in sodium chloride 0.9 % 250 mL IVPB, 4,000 mg, intravenous, PRN, Adan Reyna MD calcium gluconate IVPB 2000 mg/100 mL (20 mg/mL premix), 2,000 mg, intravenous, PRN, Adan Plasencia MD carvediloL (COREG) tablet 25 mg, 25 mg, g-tube, BID, Adan Plasencia MD, 25 mg at 06/11/25 0837 cefTRIAXone (ROCEPHIN) 1,000 mg in sodium chloride 0.9 % 50 mL IVPB W/ADAPTER, 1,000 mg, intravenous, Q24H, Alphonse Cuenca MD, Stopped at 06/11/25 1142 dextrose (GLUTOSE) 40 % gel 15 g, 15 g, oral, PRN, Alphonse Cuenca MD dextrose 5 % (D5W) infusion, 100 mL/hr, intravenous, Continuous PRN, Alphonse Cuenca MD dextrose 50 % in water (D50W) 50% solution 25 mL, 25 mL, intravenous, PRN, Alphonse Cuenca MD glucagon HCL injection 1 mg, 1 mg, intramuscular, PRN, Alphonse Cuenca MD heparin (porcine) injection 5,000 Units, 5,000 Units, subcutaneous, Q8H CATRINA, Alphonse Cuenca MD, 5,000 Units at 06/11/25 1435 hydrALAZINE (APRESOLINE) injection 10 mg, 10 mg, intravenous, Q4H PRN, Alphonse Cuenca MD, 10 mg at 06/05/25 1430 hydrALAZINE (APRESOLINE) tablet 25 mg, 25 mg, g-tube, Q8H CATRINA, Adan Plasencia MD, 25 mg at 06/11/25 1436 insulin lispro (HumaLOG) injection 2-10 Units, 2-10 Units, subcutaneous, Q4H, Pietro Dela Cruz PA-C, 8 Units at 06/11/25 1515 labetaloL (NORMODYNE,TRANDATE) injection 10 mg, 10 mg, intravenous, Q5 Min PRN, Alphonse Cuenca MD, 10 mg at 06/10/25 1927 levETIRAcetam (KEPPRA) 750 mg in sodium chloride 0.9 % 107.5 mL IVPB, 750 mg, intravenous, Q12H, Alphonse Cuenca MD, Stopped at 06/11/25 1456 lisinopriL (PRINIVIL,ZESTRIL) tablet 40 mg, 40 mg, nasogastric, Daily, Adan Plasencia MD, 40 mg at 06/11/25 0838 magnesium oxide (MAGOX) tablet 400 mg, 400 mg, g-tube, Daily, Adan Plasencia MD, 400 mg at 06/11/25 0837 magnesium sulfate IVPB 2000 mg/50 mL in iso-osmotic water (40 mg/mL premix), 2,000 mg, intravenous,PRN, Stopped at 06/11/25 0643 OR magnesium sulfate IVPB 4000 mg/100 mL in iso-osmotic water (40mg/mL premix), 4,000 mg, intravenous, PRN, Alphonse Cuenca MD niCARdipine (CARDENE-IV) infusion 40 mg/200 mL in iso-osmotic sodium chloride (0.2 mg/mL premix), 2.5-15 mg/hr, intravenous, Continuous, Alphonse Cuenca MD, Stopped at 06/09/25 1200 potassium chloride (K-TAB,KLOR-CON) CR tablet 20-60 mEq, 20-60 mEq, oral, PRN OR potassium chloride (KAYCIEL) 20 mEq/15 mL solution 20-60 mEq, 20-60 mEq, oral, PRN OR potassium chloride IVPB 10 mEq/100 mL in water (0.1 mEq/mL premix), 10 mEq, intravenous, PRN, Adan Plasencia MD potassium chloride (KAYCIEL) 20 mEq/15 mL solution 20 mEq, 20 mEq, g-tube, Daily, Adan Plasencia MD,20 mEq at 06/11/25 0837 sodium phosphate 20 mmol in sodium chloride 0.9 % 250 mL IVPB, 20 mmol, intravenous, PRN OR sodium phosphate 20 mmol in sodium chloride 0.9 % 100 mL IVPB, 20 mmol, intravenous, PRN OR sod phos di, mono-K phos mono (K-PHOS NEUTRAL) 250 mg tablet 2 tablet, 2 tablet, oral, PRN, Adan Plasencia MD thiamine (B-1) 500 mg in sodium chloride 0.9 % 50 mL IVPB, 500 mg, intravenous, TID, Alphonse Cuenca MD, Stopped at 06/11/25 1505 No Known Allergies Social History Tobacco Use Smoking status: Every Day Current packs/day: 1.00 Average packs/day: 1 pack/day for 52.8 years (52.8 ttl pk-yrs) Types: Cigarettes Start date: 1972 Smokeless tobacco: Never Substance Use Topics Alcohol use: Yes Drug use: Never Review of Systems: Review of Systems Reason unable to perform ROS: ICH. Objective Physical Exam: BP 140/77 Pulse 67 Temp 36.3 ??C (97.3 ??F) (Axillary) Resp 24 Ht 182.9 cm (6') Wt 109.1 kg (240 lb 8.4 oz) SpO2 93% BMI 32.62 kg/m?? Physical Exam Constitutional: Appearance: He is obese. He is ill-appearing. Pulmonary: Effort: Respiratory distress present. Abdominal: General: There is no distension. Palpations: Abdomen is soft. Tenderness: There is no abdominal tenderness. There is no guarding. Musculoskeletal: Right lower leg: No edema. Left lower leg: No edema. Intake/Output: Intake/Output Summary (Last 24 hours) at 06/11/2025 1704 Last data filed at 06/11/2025 1615 Gross per 24 hour Intake 1471.36 ml Output 3395 ml Net -1923.64 ml Recent Labs: Results from last 7 days Lab Units 06/11/2530406/10/2525106/09/2531506/08/25 0249 06/07/25 2000 06/07/25 0407 WBC x10E9/L 5.4 4.9 5.1 5.8 -- 4.9 HEMOGLOBIN g/dL 13.3 13.1 12.8* 13.3 < > 13.5 HEMATOCRIT % 39.2 38.5* 37.2* 39.0 < > 38.9* PLATELETS X10E9/L 203 209 186 189 -- 211 < > = values in this interval not displayed. Results from last 7 days Lab Units 06/11/2530406/10/2525106/09/2531506/08/259 06/07/25 1227 06/07/25 0407 SODIUM mmol/L 140 147* 146 143 -- 141 POTASSIUM mmol/L 4.3 3.9 3.9 3.6 < > 3.5 CHLORIDE mmol/L 103 109 115* 111* -- 108 CO2 mmol/L 27 28 23 25 -- 24 BUN mg/dL 26 22 20 18 -- 16 CREATININE mg/dL 1.84* 1.63* 1.47* 1.43* -- 1.49* EGFR (CKD-EPI) NON-RACE DEPENDENT ml/min/1.73sq.m 39* 46* 52* 53* -- 51* CALCIUM mg/dL 9.3 9.4 9.0 9.0 -- 9.1 < > = values in this interval not displayed. Results from last 7 days Lab Units 06/11/2530425 0252 06/09/25 0316 06/08/25 0249 06/07/25 0407 ALBUMIN g/dL 3.6 3.4 3.2 3.3 3.5 Last HbA1c: Lab Results Component Value Date HGBA1C 8.3 (H) 06/07/2025 Pietro Dela Cruz PA-C 06/11/25 1714 * Carl Bess MD - 06/07/2025 2:16 PM EDTAssociated Order(s): IP CONSULT TO UROLOGY Urology Consultation Patient: Gianni Babin Date of : 1955 CHIEF COMPLAINT: bilateral hydronephrosis, baljit HISTORY OF PRESENT ILLNESS: The patient is a 70 y.o. male with hx of DM, HTN, DVT on Eliquis, alcohol abuse, presented to [facility] with AMS with possible fall at home 2 days ago, foung to have 2.3cm thalamic hemorrhage with intraventricular extension. Eliquis being held, neurology awaiting MRI. Urology was consulted for bilateral hydronephrosis on CT 06/04. Currently pt with external mayo catheter. Pt denies abdominal or back pain. He sts he thinks he voids ok at home, however pt not oriented to place and is lethargic and I am not sure his accuracy on his history. Denies constipation. Patient's old records, notes and chart reviewed and summarized above. Past Medical History: Past Medical History: Diagnosis Date Diabetes mellitus type 2, controlled ([facility]) DVT (deep venous thrombosis) ([facility]) GERD (gastroesophageal reflux disease) Hyperlipidemia Hypertension ICH (intracerebral hemorrhage) ([facility]) 06/04/2025 Osteoarthritis Past Surgical History: Past Surgical History: Procedure Laterality Date TONSILLECTOMY TOTAL HIP ARTHROPLASTY 06/2010 Medications: Scheduled Meds: levETIRAcetam, 750 mg, intravenous, Q12H lisinopriL, 40 mg, nasogastric, Daily Continuous Infusions: dextrose 5 % in water, 100 mL/hr niCARdipine, 2.5-15 mg/hr, Last Rate: 10 mg/hr (06/07/25 1245) PRN Meds:. calcium gluconate OR calcium gluconate OR calcium gluconate dextrose dextrose 5 % in water dextrose 50 % in water (D50W) glucagon (human recombinant) hydrALAZINE labetalol magnesium sulfate OR magnesium sulfate potassium chloride OR potassium chloride potassium chloride in water OR potassium chloride in water sodium phosphate IV OR sodium phosphate IV - central line OR sod phos di, mono-K phos mono Allergies: Patient has no known allergies. Social History: Social History Socioeconomic History Marital status: Spouse name: Not on file Number of children: Not on file Years of education: Not on file Highest education level: Not on file Occupational History Not on file Tobacco Use Smoking status: Every Day Current packs/day: 1.00 Average packs/day: 1 pack/day for 52.8 years (52.8 ttl pk-yrs) Types: Cigarettes Start date: 1972 Smokeless tobacco: Never Substance and Sexual Activity Alcohol use: Yes Drug use: Never Sexual activity: Not on file Other Topics Concern Not on file Social History Narrative Not on file Social Drivers of Health Financial Resource Strain: Not on file Food Insecurity: No Food Insecurity (06/05/2025) Hunger Screening Food Insecurity - Worry: Never True Food Insecurity - Inability: Never True Transportation Needs: No Transportation Needs (06/05/2025) PRAPARE - Transportation Lack of Transportation (Medical): No Lack of Transportation (Non-Medical): No Physical Activity: Not on file Stress: Not on file Social Connections: Not on file Interpersonal Safety: Patient Unable To Answer (06/05/2025) Humiliation, Afraid, Rape, and Kick questionnaire Fear of Current or Ex-Partner: Patient unable to answer Emotionally Abused: Patient unable to answer Physically Abused: Patient unable to answer Sexually Abused: Patient unable to answer Housing Instability: Low Risk (06/05/2025) Housing Instability Housing Instability: No Family History: Family History Problem Relation Age of Onset Lymphoma Mother Leukemia Mother Pancreatic cancer Father Heart attack Father REVIEW OF SYSTEMS: Unable to review, afebrile Review of Systems Physical Exam: This a 70 y.o. male Patient Vitals for the past 24 hrs: BP Temp Temp src Pulse Resp SpO2 Weight 06/07/25 0700 139/88 -- -- 78 19 92 % -- 06/07/25 0600 139/68 -- -- 85 17 91 % -- 06/07/25 0500 135/77 -- -- 89 21 91 % 115.9 kg (255 lb 8.2 oz) 06/07/25 0400 127/82 36.6 ??C (97.8 ??F) Oral 93 18 93 % -- 06/07/25 0300 137/77 -- -- 86 19 91 % -- 06/07/25 0200 144/71 -- -- 91 16 91 % -- 06/07/25 0100 (!) 142/96 -- -- 96 24 92 % -- 06/07/25 0000 150/87 36.5 ??C (97.7 ??F) Oral 91 22 94 % -- 06/06/25 2300 142/76 -- -- 89 21 94 % -- 06/06/25 2200 148/90 -- -- 94 19 92 % -- 06/06/25 2100 (!) 143/93 -- -- 97 19 92 % -- 06/06/25 2000 148/84 36.6 ??C (97.9 ??F) Oral 87 19 93 % -- 06/06/25 1900 (!) 147/102 -- -- 94 24 95 % -- 06/06/25 1737 162/90 -- -- 86 -- -- -- 06/06/25 1700 137/80 -- -- 87 15 91 % -- 06/06/25 1600 145/87 36.8 ??C (98.2 ??F) Oral 78 18 94 % -- 06/06/25 1545 134/87 -- -- 83 14 91 % -- 06/06/25 1540 162/89 -- -- 84 10 93 % -- 06/06/25 1500 149/85 -- -- 80 18 92 % -- Constitutional: Patient in no acute distress. Responds to verbal stimuli with minimally opening hiseyes. Oriented to person Psych: mood and affect normal, lethargic HEENT negative, vision and hearing grossly intact. Lungs: Respiratory effort is unlabored Cardiovascular: Normal peripheral pulses, +2/4 bilaterally Abdomen: Soft, non-tender, non-distended with no CVA, flank pain or hepatosplenomegaly. No hernias or masses palpable Lymphatics: No palpable lymphadenopathy. Bladder non-tender external mayo in place with translucent yellow urine LABS: Unknown baseline cr, cr 1.33 on admit 06/04/25 Lab Results Component Value Date CREATININE 1.49 (H) 06/07/2025 BUN 16 06/07/2025 K 3.6 06/07/2025 CL 108 06/07/2025 CO2 24 06/07/2025 Lab Results Component Value Date WBC 4.9 06/07/2025 HGB 13.5 06/07/2025 HCT 38.9 (L) 06/07/2025 MCV 92 06/07/2025 PLT 211 06/07/2025 No urine studies ordered Imaging Results 06/04/25 CT-scan of abdomen and pelvis Advanced degenerative changes with chronic artifact in the left hip. Significant hydronephrosis and caliectasis and hydroureter bilaterally with a thick walled urinary bladder likely related to obstruction or chronic inflammation and the enlarged prostate gland. Reflux may be noted bilaterally. Assessment and Plan Impression: 70 yo male with bilateral hydroureteronephrosis with bladder wall thickening likely due to bladder outlet obstruction Plan: check ua and CX to rule out additional source of confusion Place indwelling mayo, will need follow up [facility] to confirm bilateral hydronephrosis is resolved. Monitor Cr Will d/w Dr Bess. - ANDREW SERNA 06/07/25 2:30 PM ANDREW Serna 06/07/25 1430 I, CARL BESS MD, personally performed the face to face diagnostic evaluation on this patient. My findings are as follows: review of imaging reveals significant trabeculation of bladder, enlarged bladder. Concerning for defunctionalization 2/2 BPH. Consider Flomax. Consider VT 1 week. If fails, will need cysto, FUDS as outpt. * Keshawn Alex MD - 06/07/2025 1:04 PM EDTAssociated Order(s): CONSULT VASCULAR MEDICINE Images from the original note were not included. VASCULAR, INPATIENT INITIAL CONSULTATION: Patient ID: Gianni Babin, 70 y.o. male. Date of Admission: 06/04/2025 5:25 PM Reason for Consult: Hemorrhagic stroke in patient with a recent DVT Referring Physician: Patricia Mcclellan MD PCP: SIENNA BARRIENTOS ASSESSMENT: 70-year-old man with recent possibly unprovoked left lower extremity DVT, now admitted for right thalamic hemorrhagic stroke. Anticoagulation has been held since admission 3 days ago. Repeat brain imaging performed shows relatively stable findings. RECOMMENDATIONS: Agree with Neurology regarding holding therapeutic anticoagulation for now Recommend initiation of prophylactic anticoagulation (Lovenox 40 mg daily or subacute heparin 5000 units t.i.d.) once cleared by Neurology Ensure sequential compression devices on bilateral lower extremity when not ambulating Obtain antiphospholipid syndrome labs as initial step in hypercoagulable workup Until the patient can resume therapeutic anticoagulation, we recommend weekly duplex venous ultrasound of bilateral lower extremities to rule out proximal propagation of the thrombosis or new proximal DVTs, which would be an indication for an IVC filter. Vascular medicine will follow Keshawn Alex MD, MPH Chief Complaint: Fall History of Present Illness: Gianni Babin is a 70 y.o. White or male with a prior history of hypertension, diabetes, hyperlipidemia, obesity, diabetes mellitus andrecent DVT (on Eliquis), who was admitted on 06/04/2025 for altered mental status and found to havea right thalamic intraparenchymal hemorrhage with intraventricular extension. His anticoagulation was reversed on admission with Kcentra and he has since been off any anticoagulation. Repeat brain imaging performed since admission shows stable findings. He was diagnosed with a left popliteal and tibioperoneal DVT on 05/15/2025. He was subsequently started on Eliquis with a loading dose at an outside hospital. No clear identifiable etiologies were noted per chart review. No known prior venous thromboembolism. He is a current smoker with at least 50pack-year history. Details of his family history could not be obtained due to his mental status. Past Medical History: Diagnosis Date Diabetes mellitus type 2, controlled ([facility] [place]) DVT (deep venous thrombosis) ([facility]) GERD (gastroesophageal reflux disease) Hyperlipidemia Hypertension ICH (intracerebral hemorrhage) ([facility]) 06/04/2025 Osteoarthritis Past Surgical History: Procedure Laterality Date TONSILLECTOMY TOTAL HIP ARTHROPLASTY 06/2010 No Known Allergies Meds: Scheduled Meds: levETIRAcetam, 750 mg, intravenous, Q12H lisinopriL, 40 mg, nasogastric, Daily Continuous Infusions: dextrose 5 % in water, 100 mL/hr niCARdipine, 2.5-15 mg/hr, Last Rate: 10 mg/hr (06/07/25 1245) PRN Meds:. calcium gluconate OR calcium gluconate OR calcium gluconate dextrose dextrose 5 % in water dextrose 50 % in water (D50W) glucagon (human recombinant) hydrALAZINE labetalol magnesium sulfate OR magnesium sulfate potassium chloride OR potassium chloride potassium chloride in water OR potassium chloride in water sodium phosphate IV OR sodium phosphate IV - central line OR sod phos di, mono-K phos mono Social History Socioeconomic History Marital status: Spouse name: Not on file Number of children: Not on file Years of education: Not on file Highest education level: Not on file Occupational History Not on file Tobacco Use Smoking status: Every Day Current packs/day: 1.00 Average packs/day: 1 pack/day for 52.8 years (52.8 ttl pk-yrs) Types: Cigarettes Start date: 1972 Smokeless tobacco: Never Substance and Sexual Activity Alcohol use: Yes Drug use: Never Sexual activity: Not on file Other Topics Concern Not on file Social History Narrative Not on file Social Drivers of Health Financial Resource Strain: Not on file Food Insecurity: No Food Insecurity (06/05/2025) Hunger Screening Food Insecurity - Worry: Never True Food Insecurity - Inability: Never True Transportation Needs: No Transportation Needs (06/05/2025) PRAPARE - Transportation Lack of Transportation (Medical): No Lack of Transportation (Non-Medical): No Physical Activity: Not on file Stress: Not on file Social Connections: Not on file Interpersonal Safety: Patient Unable To Answer (06/05/2025) Humiliation, Afraid, Rape, and Kick questionnaire Fear of Current or Ex-Partner: Patient unable to answer Emotionally Abused: Patient unable to answer Physically Abused: Patient unable to answer Sexually Abused: Patient unable to answer Housing Instability: Low Risk (06/05/2025) Housing Instability Housing Instability: No Family History Problem Relation Age of Onset Lymphoma Mother Leukemia Mother Pancreatic cancer Father Heart attack Father Review of Systems Unable to obtain -- altered mental status Physical Exam Vital Signs: Blood pressure 139/88, pulse 78, temperature 36.6 ??C (97.8 ??F), temperature source Oral, resp. rate 19, height 182.9 cm (6'), weight 115.9 kg (255 lb 8.2 oz), SpO2 92%. Respiratory Source: O2 Device: Nasal cannula Admission Weight: Weight: 117.3 kg (258 lb 9.6 oz) General appearance: Awake, somnolent, O x 1 in no acute distress. Skin: Skin warm and intact. HEENT: pupils equal and throat not injected. Neck: supple, Neg Adenopathy, No JVD, No Bruits. Lungs: no wheezing or rhonchi, lungs clear to auscultation. Heart: NL S1S2 . RRR without murmur, gallop, or rubs. No ectopy. Abdomen: Abdomen soft, non-tender. Bowel sounds normal. No masses, organomegaly. Upper Extremities: No deformities, or skin discoloration. Good capillary refill. No clubbing, cyanosis. Right forearm swelling. Peripheral pulses: carotid radial femoral pop DP/PT R 2 2 2 2 2/2 L 2 2 2 2 2/2 Lower Extremities: Feet and toes warm. Good capillary refill. Negative for Venous stasis/ hyperpigmentation/ atrophie madisyn. Mild swelling of left lower extremity up to the calf with tenderness Musculoskeletal: Range of motion normal in hips, knees, shoulders, and spine. No hyperpermeability,Foot deformity. Neuro Exam: Negative for focal deficit, weakness or loss of sensation. Imaging, reviewed: Venous Duplex Scan Left Lower Extremity (05/15/2025) Abnormal compression involving the left popliteal vein with apparent segment of lack of vascular flow, suggestive of occlusive DVT, with other areas of vascular flow in the left popliteal vein. Abnormal compression involving the left peroneal and posterior tibial deep calf veins suggestive of DVT. Normal compression and vascular flow of the left common femoral vein and left superficial femoral vein. Normal compression of the greater saphenous vein without evidence for SVT. IMPRESSION: Positive for acute DVT involving the left popliteal vein and left deep calf veins. CT BRAIN WO CONT (06/04/2025) CT images of the brain were obtained. There is a 2.3 cm right thalamic hemorrhage with intraventricular extension of blood products. Blood proximal within mid the lateral ventricles as well as the third ventricle. No midline shift or basilar cisternal effacement. Chronic ischemic changes appear moderate. IMPRESSION: 2.3 cm right thalamic hemorrhage with intraventricular extension. MR BRAIN W WO CONT(06/06/2025) BRAIN FINDINGS: The study is motion degraded Brain Parenchyma: Redemonstrated intraparenchymal hematoma centered along the anterior right thalamus. The overall size and configuration of the hematoma is not significantly changed given variation in imaging technique. Maximal dimension is approximately 2.4 cm. Intraventricular extension into the adjacent anterior body of the right lateral ventricle. There is layering blood within the bilateraloccipital horns, similar volume to prior from 06/05/2025. There are scattered bilateral acute to subacute infarcts within the right basal ganglia and bilateral centrum semiovale. No definite evidence of convexity subarachnoid hemorrhage however evaluation is limited due to motion. Intracranial Flow-Voids: Arterial and venous sinus flow voids appear normal. Orbits: Normal Paranasal Sinuses: Normal Mastoid Air Cells: Bilateral mastoid effusions Cranium: Normal Extracranial Soft Tissues: Normal IMPRESSION: Significantly limited study due to motion. Redemonstrated right thalamic hematoma with intraventricular extension. Overall size and morphologyis not significantly changed compared to prior CT. Similar volume of intraventricular layering blood products. Enhancement along the anterior basal ganglia likely involving the putamen and caudate head likely sequelae of subacute infarct. There is corresponding diffusion restriction. Characterization is limited by motion. Metastatic disease favored to be less likely in the absence of a known malignancy. Consider short interval follow-up to assess for expected evolution of the infarcted territories andhematoma. Lab Review Lab Results Component Value Date WBC 4.9 06/07/2025 HGB 13.5 06/07/2025 HCT 38.9 (L) 06/07/2025 MCV 92 06/07/2025 PLT 211 06/07/2025 Lab Results Component Value Date GLU 171 (H) 06/07/2025 CALCIUM 9.1 06/07/2025 K 3.5 06/07/2025 CO2 24 06/07/2025 BUN 16 06/07/2025 CREATININE 1.49 (H) 06/07/2025 Lab Results Component Value Date INR 1.5 (H) 06/04/2025 PROTIME 16.7 (H) 06/04/2025 Lab Results Component Value Date PTT 35 06/04/2025 Keshawn Alex MD, MPH Cosigned by Timbo Fleming MD at 06/08/2025 9:04 PM EDT Associated attestation - Timbo Fleming MD - 06/08/2025 9:04 PM EDT I reviewed the resident's note and discussed the case with the resident. This specific service willnot be billed. Additional findings/notes: Discussed case with vascular medicine fellow. Agree with above. Recent DVT and now with intracranial hemorrhage. Hold anticoagulation. Resume VTE ppx when able. Monitor with serial duplex. Vascular medicine team will follow along. Timbo Fleming MD [facility] * Ed Ortiz MD - 06/07/2025 11:42 AM EDTAssociated Order(s): IP CONSULT TO NEPHROLOGY Images from the original note were not included. NEPHROLOGY CONSULT NOTE Date of Admission: 06/04/2025 5:25 PM Reason for Consult: BALJIT Referring Physician: Mable Butt MD PCP: SIENNA BARRIENTOS History of Present Illness: Gianni Babin is a 70 y.o. male with past medical history significant for type 2 diabetes mellitus, hypertension, hyperlipidemia, osteoarthritis, GERD patient was transferred from outside hospital for evaluation of altered mental status. In the outside facility the patient CT brain showed 2-3 cm right thalamic hemorrhage with intraventricular extension. Patientwas on Eliquis for DVT. Patient was started on Cardene infusion. We are consulted for acute kidney injury Creatinine on admission was 1.3 mg/dL creatinine today is 1.49 mg/dL with EGFR of 51 mL creatinine Patient is poor historian most of the history has been obtained from the available records there was no family member reachable at this point Problem list Chronic kidney disease stage IIIA: CT scan of abdomen pelvis with contrast on 06/04/2025 showed cortical scarring with significant caliectasis and hydronephrosis right ureter is dilated down to the urinary bladder. Cortical scarring. Left kidney significant hydronephrosis and caliectasis no discrete cortical scarring Right intraparenchymal hemorrhage with intraventricular extension Type 2 diabetes mellitus DVT on Eliquis GERD Hypertension Hyperlipidemia Osteoarthritis Total hip arthroplasty Past Medical and Surgical History: Past Medical History: Diagnosis Date Diabetes mellitus type 2, controlled ([facility] [place]) DVT (deep venous thrombosis) ([facility]) GERD (gastroesophageal reflux disease) Hyperlipidemia Hypertension ICH (intracerebral hemorrhage) ([facility] [place]) 06/04/2025 Osteoarthritis Past Surgical History: Procedure Laterality Date TONSILLECTOMY TOTAL HIP ARTHROPLASTY 06/2010 Allergies: No Known Allergies Home Meds: Medications Prior to Admission Medication Sig Dispense Refill Last Dose/Taking aspirin 81 mg Take 1 tablet (81 mg total) by mouth in the morning. Taking atorvastatin (LIPITOR) 20 mg tablet Take 1 tablet (20 mg total) by mouth every morning. TAKE 1 TABLET (20 MG) BY MOUTH IN THE MORNING Taking ELIQUIS 5 mg tablet Take 1 tablet (5 mg total) by mouth in the morning and 1 tablet (5 mg total) before bedtime. Taking fenofibrate (LOFIBRA) 160 mg tablet Take 1 tablet (160 mg total) by mouth in the morning. Taking lisinopriL (PRINIVIL,ZESTRIL) 40 mg tablet Take 1 tablet (40 mg total) by mouth in the morning. Taking magnesium aspart,citrate,oxide (TRIPLE MAGNESIUM COMPLEX) 400 mg magnesium capsule Take 400 mg by mouth in the morning. Taking metFORMIN (GLUCOPHAGE) 1000 mg tablet Take 1 tablet (1,000 mg total) by mouth in the morning and 1 tablet (1,000 mg total) in the evening. Take with meals. Taking ACCU-CHEK GUIDE ME GLUCOSE MTR misc USE DAILY OR DIRECTED FOR MONITORING OF DIABETES. ACCU-CHEK GUIDE TEST STRIPS strip USE DAILY ACCU-CHEK SOFTCLIX LANCETS lancets USE TO TEST DAILY Social History: Social History Socioeconomic History Marital status: Spouse name: Not on file Number of children: Not on file Years of education: Not on file Highest education level: Not on file Occupational History Not on file Tobacco Use Smoking status: Every Day Current packs/day: 1.00 Average packs/day: 1 pack/day for 52.8 years (52.8 ttl pk-yrs) Types: Cigarettes Start date: 1972 Smokeless tobacco: Never Substance and Sexual Activity Alcohol use: Yes Drug use: Never Sexual activity: Not on file Other Topics Concern Not on file Social History Narrative Not on file Social Drivers of Health Financial Resource Strain: Not on file Food Insecurity: No Food Insecurity (06/05/2025) Hunger Screening Food Insecurity - Worry: Never True Food Insecurity - Inability: Never True Transportation Needs: No Transportation Needs (06/05/2025) PRAPARE - Transportation Lack of Transportation (Medical): No Lack of Transportation (Non-Medical): No Physical Activity: Not on file Stress: Not on file Social Connections: Not on file Interpersonal Safety: Patient Unable To Answer (06/05/2025) Humiliation, Afraid, Rape, and Kick questionnaire Fear of Current or Ex-Partner: Patient unable to answer Emotionally Abused: Patient unable to answer Physically Abused: Patient unable to answer Sexually Abused: Patient unable to answer Housing Instability: Low Risk (06/05/2025) Housing Instability Housing Instability: No Family History: Family History Problem Relation Age of Onset Lymphoma Mother Leukemia Mother Pancreatic cancer Father Heart attack Father Review of Systems: Unable to obtain at this point as patient is currently confused Physical Exam Vitals: 06/07/25 0400 06/07/25 0500 06/07/25 0600 06/07/25 0700 BP: 127/82 135/77 139/68 139/88 Pulse: 93 89 85 78 Resp: 18 21 17 19 Temp: 36.6 ??C (97.8 ??F) TempSrc: Oral SpO2: 93% 91% 91% 92% Weight: 115.9 kg (255 lb 8.2 oz) Height: INTAKE/OUTPUT: Intake/Output Summary (Last 24 hours) at 06/07/2025 1142 Last data filed at 06/07/2025 0600 Gross per 24 hour Intake 810 ml Output 600 ml Net 210 ml No intake/output data recorded. Vital Signs: Blood pressure 139/88, pulse 78, temperature 36.6 ??C (97.8 ??F), temperature source Oral, resp. rate 19, height 182.9 cm (6'), weight 115.9 kg (255 lb 8.2 oz), SpO2 92%. Respiratory Source: O2 Device: Nasal cannula Admission Weight: Weight: 117.3 kg (258 lb 9.6 oz) Constitutional: Debilitated HEENT head atraumatic normocephalic. Eyes extraocular movements intact sclera not icteric conjunctivae not pale. Cardiovascular: Regular rate and rhythm S1-S2 normal, No murmur, gallop, or rub no JVD no carotid bruit. Respiratory nonlabored breathing, Lungs CTA BL Gastrointestinal abdomen is soft nontender nondistended with positive bowel sounds, no rebound or guarding revealed no CVA tenderness. Neurological is alert awake confused Musculoskeletal : No Joints deformities. Lower extremities no edema. Psychiatric normal affect without depression anxiety. Skin warm and dry without rash. Hematological: No Petechiae or bruising Lymphatics: no supraclavicular submandibular or cervical lymphadenopathy Laboratory Workup: Results from last 7 days Lab Units 06/07/25 0407 06/06/25 0652 06/05/25 1445 06/05/25 0310 06/04/25195706/04/25 1345 SODIUM mmol/L 141 141 -- 136 134 135 POTASSIUM mmol/L 3.5 3.5 3.3* 3.3* 3.3* 3.4* CHLORIDE mmol/L 108 107 -- 102 100 99 CO2 mmol/L 24 23 -- 26 25 24 BUN mg/dL 16 13 -- 13 12 12 CREATININE mg/dL 1.49* 1.43* -- 1.44* 1.42* 1.31* CALCIUM mg/dL 9.1 8.6 -- 8.7 8.8 8.9 MAGNESIUM mg/dL -- -- -- -- -- 1.9 No results found for: PTH Lab Results Component Value Date TOTALPROTEI 6.4 06/07/2025 ALBUMIN 3.5 06/07/2025 AST 17 06/07/2025 ALT 7 06/07/2025 Results from last 7 days Lab Units 06/07/25 0407 06/06/25 0652 06/05/25 0310 06/04/25 1958 06/04/25 1345 WBC x10E9/L 4.9 4.3 4.4 5.9 4.6 HEMOGLOBIN g/dL 13.5 13.7 13.3 13.7 15.1 HEMATOCRIT % 38.9* 39.2 37.3* 40.5 43.6 PLATELETS X10E9/L 211 191 202 231 241 No results found for: IRON , TIBC , FERRITIN , IRONSAT Urine No results found for: COLOR , TURBIDITY , SPECIFICGRA , NITRITE , PHURINE , LEUKOCYTE , PROTEIN , KETONES , UROBILINOGEN , BLOODHGB No results found for: URINECREATI , PROTUR , MICROALBUR , MICRAU Immunology Profile No results found for: PROTELECTR , SEDRATE , CRP , RF , ANASCREEN , ANTIDSDNA , C3 , C4 , MYELOP , PROTEINASE3 No results found for: HAV , HEPAIGM , HEPBIGM , HEPBCAB , HBEAG , HEPCAB Imaging: X-ray chest 1 view Result Date: 06/07/2025 Single view chest History:Congestion Difficulty breathing, shortness of breath Comparison: None Findings: Single portable view of the chest. Enteric catheter extends below the inferior edge of the radiograph. There is hypoventilatory change with lower lung atelectasis. Mild vascular congestion. Impression: Mild vascular congestion with bilateral lower lung atelectasis. Finalized by Peter Sarabia MD on 06/07/2025 10:09 AM MR brain with and without contrast Result Date: 06/07/2025 EXAM:MR BRAIN W WO CONT INDICATION: [facility] neuro deficit COMPARISON: CT of the head from 06/05/2025 TECHNIQUE: Multiplanar multisequence pre and post contrast MR sequences through the head/brain. CONTRAST: 20mL ProHance IV. BRAIN FINDINGS: The study is motion degraded Brain Parenchyma: Redemonstrated intraparenchymal hematoma centered along the anterior right thalamus. The overall size and configuration of the hematoma is not significantly changed given variation in imaging technique. Maximal dimension is approximately 2.4 cm. Intraventricular extension into the adjacent anterior body of the right lateral ventricle. There is layering blood within the bilateral occipital horns, similar volume to prior from 06/05/2025. There are scattered bilateral acute to subacute infarcts within the right basal ganglia and bilateral centrum semiovale. No definite evidence of convexity subarachnoid hemorrhage however evaluation is limited due to motion. Intracranial Flow-Voids: Arterial and venous sinus flow voids appear normal. Orbits: Normal Paranasal Sinuses: Normal Mastoid Air Cells: Bilateral mastoid effusions Cranium: Normal Extracranial Soft Tissues: Normal IMPRESSION: Significantly limited study due to motion. Redemonstrated right thalamic hematoma with intraventricular extension. Overall size and morphology is not significantly changed compared to prior CT. Similar volume of intraventricular layering blood products. Enhancement along the anterior basal ganglia likely involving the putamen and caudate head likely sequelae of subacute infarct. There is corresponding diffusion restriction. Characterization is limited by motion. Metastatic disease favored to be less likely in the absence of a known malignancy. Consider short interval follow-up to assess for expected evolution of the infarcted territories and hematoma. Finalized by Peter Ramon on 06/07/2025 12:03 AM Impression: Chronic kidney disease stage IIIA his creatinine is slightly worse at this point. Bilateral hydronephrosis with cortical scarring on both kidneys on the CAT scan of abdomen pelvis we Right intraparenchymal hemorrhage with intraventricular extension likely due to uncontrolled hypertension Hypertension: Blood pressure is currently at goal. We will pressure is around 130-150. Volume status he looks euvolemic Plan: No indication for IV fluid at this point. Encourage oral intake. Check renal ultrasound Check PVR Check serology workup Check multiple myeloma workup Patient needs urology evaluation. Discuss with the primary service. Monitor for contrast induced nephropathy Urine studies Check renal artery duplex Ed Ortiz MD [facility] Thank you for your consultation and allowing us to participate in the care of Gianni Wheeler Haubertand please do not hesitate to call us with any questions at: Office: [phone] Office Answering Service: [phone] Please feel free to contact me through [email or web address] Secure chat during the daytime hours, if no response after 5 minutes then call the answering service. This note was created with the assistance of a speech-recognition program. Although the intention is to generate a document that actually reflects the content of the visit, no guarantees can be provided that every mistake has been identified and corrected by editing. * BRANDON Barahona - 06/06/2025 12:51 PM EDTAssociated Order(s): IP CONSULT TO NUTRITION SERVICES NUTRITION ADULT INITIAL EVALUATION NUTRITION ASSESSMENT: Reason to be seen: TF/TPN/assessment/jayson cts Patient History: Admit Diagnosis: Patient Active Problem List Diagnosis ICH (intracerebral hemorrhage) ([facility]) Past Medical History: Past Medical History: Diagnosis Date Diabetes mellitus type 2, controlled ([facility]) DVT (deep venous thrombosis) ([facility]) GERD (gastroesophageal reflux disease) Hyperlipidemia Hypertension ICH (intracerebral hemorrhage) ([facility]) 06/04/2025 Osteoarthritis Past Surgical History: Past Surgical History: Procedure Laterality Date TONSILLECTOMY TOTAL HIP ARTHROPLASTY 06/2010 Social/ Cognitive/ Economic: from home Brief Clinical Summary: PT admitted for ICH. Not ready for oral feedings per BLOCK HACKER eval today. Past medical history significant for hypertension, DM, HLD, Obesity, DM2, recent DVT on Eliquis. Biochemical Data, Medical Tests, and Procedures: 06/06- BSSE Labs: Results from last 3 days Lab Units 06/06/25 0652 06/05/25 1445 06/05/25 0310 06/04/25 1958 SODIUM mmol/L 141 -- 136 134 POTASSIUM mmol/L 3.5 3.3* 3.3* 3.3* CHLORIDE mmol/L 107 -- 102 100 CO2 mmol/L 23 -- 26 25 BUN mg/dL 13 -- 13 12 CREATININE mg/dL 1.43* -- 1.44* 1.42* CALCIUM mg/dL 8.6 -- 8.7 8.8 ALBUMIN g/dL 3.4 -- 3.3 3.4 ALK PHOS U/L 56 -- 58 62 ALT U/L 8 -- 7 9 AST U/L 16 -- 15 17 Results from last 7 days Lab Units 06/06/25 0652 06/05/25 1552 06/05/25 1158 06/05/25 0820 06/05/2530906/04/25213406/04/251957 BEDSIDE GLUCOSE mg/dL -- 145* 140* 147* -- 180* -- GLUCOSE mg/dL 145* -- -- -- 163* -- 185* Results from last 3 days Lab Units 06/06/25 0606/05/2530906/04/251957 WBC x10E9/L 4.3 4.4 5.9 HEMOGLOBIN g/dL 13.7 13.3 13.7 HEMATOCRIT % 39.2 37.3* 40.5 PLATELETS X10E9/L 191 202 231 MCV fL 92 91 91 Results from last 3 days Lab Units 06/04/25 1345 MAGNESIUM mg/dL 1.9 No data from last 3 days. Results from last 3 days Lab Units 06/06/2565106/05/2530906/04/251957 BILIRUBIN, TOTAL mg/dL 0.7 0.6 0.6 Lab Results Component Value Date HGBA1C 8.9 (H) 06/04/2025 No results found for: IRON , TIBC , FERRITIN No results found for: IRONSAT Lab Results Component Value Date CHOL 155 06/05/2025 Lab Results Component Value Date CHDL 5.0 06/05/2025 Lab Results Component Value Date HDL 31 (L) 06/05/2025 Lab Results Component Value Date LDLCALC 77 06/05/2025 Lab Results Component Value Date TRIG 237 (H) 06/05/2025 Lab Results Component Value Date VERYLOWLIP 47 (H) 06/05/2025 No results found for: [id number] No results found for: FOLATE No results found for: VITD25 Comments (labs): reviewed Medications/ Parenteral: Medications Prior to Admission Medication Sig Dispense Refill Last Dose/Taking aspirin 81 mg Take 1 tablet (81 mg total) by mouth in the morning. Taking atorvastatin (LIPITOR) 20 mg tablet Take 1 tablet (20 mg total) by mouth every morning. TAKE 1 TABLET (20 MG) BY MOUTH IN THE MORNING Taking ELIQUIS 5 mg tablet Take 1 tablet (5 mg total) by mouth in the morning and 1 tablet (5 mg total) before bedtime. Taking fenofibrate (LOFIBRA) 160 mg tablet Take 1 tablet (160 mg total) by mouth in the morning. Taking lisinopriL (PRINIVIL,ZESTRIL) 40 mg tablet Take 1 tablet (40 mg total) by mouth in the morning. Taking magnesium aspart,citrate,oxide (TRIPLE MAGNESIUM COMPLEX) 400 mg magnesium capsule Take 400 mg by mouth in the morning. Taking metFORMIN (GLUCOPHAGE) 1000 mg tablet Take 1 tablet (1,000 mg total) by mouth in the morning and 1 tablet (1,000 mg total) in the evening. Take with meals. Taking ACCU-CHEK GUIDE ME GLUCOSE MTR misc USE DAILY OR DIRECTED FOR MONITORING OF DIABETES. ACCU-CHEK GUIDE TEST STRIPS strip USE DAILY ACCU-CHEK SOFTCLIX LANCETS lancets USE TO TEST DAILY Current Facility-Administered Medications Medication Dose Route Frequency Provider Last Rate Last Admin acetaminophen (OFIRMEV) IVPB Premix 1,000 mg 1,000 mg intravenous Q6H PRN Nakia Delgado MD Stopped at 06/06/25 0637 calcium gluconate IVPB 1000 mg/50 mL (20 mg/mL premix) 1,000 mg intravenous PRN Alphonse Cuenca MD Or calcium gluconate IVPB 2000 mg/100 mL (20 mg/mL premix) 2,000 mg intravenous PRN Alphonse Cuenca MD Or calcium gluconate 3,000 mg in sodium chloride 0.9 % 100 mL IVPB 3,000 mg intravenous PRN Alphonse Cuenca MD dextrose (GLUTOSE) 40 % gel 15 g 15 g oral PRN Alphonse Cuenca MD dextrose 5 % (D5W) infusion 100 mL/hr intravenous Continuous PRN Alphonse Cuenca MD dextrose 50 % in water (D50W) 50% solution 25 mL 25 mL intravenous PRN Alphonse Cuenca MD glucagon HCL injection 1 mg 1 mg intramuscular PRN Alphonse Cuenca MD hydrALAZINE (APRESOLINE) injection 10 mg 10 mg intravenous Q4H PRN Alphonse Cuenca MD 10 mg at 06/05/25 1430 labetaloL (NORMODYNE,TRANDATE) injection 10 mg 10 mg intravenous Q5 Min PRN Alphonse Cuenca MD 10 mgat 06/06/25 0128 levETIRAcetam (KEPPRA) 750 mg in sodium chloride 0.9 % 107.5 mL IVPB 750 mg intravenous Q12H MD Brianna Stopped at 06/06/25 0209 lisinopriL (PRINIVIL,ZESTRIL) tablet 40 mg 40 mg nasogastric Daily Alphonse Cuenca MD 40 mg at 06/06/25 1229 magnesium sulfate IVPB 2000 mg/50 mL in iso-osmotic water (40 mg/mL premix) 2,000 mg intravenous PRN Alphonse Cuenca MD Or magnesium sulfate IVPB 4000 mg/100 mL in iso-osmotic water (40 mg/mL premix) 4,000 mg intravenous PRN Alphonse Cuenca MD niCARdipine (CARDENE-IV) infusion 40 mg/200 mL in iso-osmotic sodium chloride (0.2 mg/mL premix) 2.5-15 mg/hr intravenous Continuous Alphonse Cuenca MD 25 mL/hr at 06/06/25 1202 5 mg/hr at 06/06/25 1202 potassium chloride (K-TAB,KLOR-CON) CR tablet 20-50 mEq 20-50 mEq oral PRN Alphonse Cuenca MD Or potassium chloride (KAYCIEL) 20 mEq/15 mL solution 20-50 mEq 20-50 mEq oral PRN Alphonse Cuenca MD potassium chloride IVPB 10 mEq/50 mL in water (0.2 mEq/mL premix) 10 mEq intravenous PRN Alphonse Cuenca MD Stopped at 06/05/25 1829 Or potassium chloride IVPB 10 mEq/100 mL in water (0.1 mEq/mL premix) 10 mEq intravenous PRN Alphonse Cuenca MD Stopped at 06/06/25 0115 sodium phosphate 20 mmol in sodium chloride 0.9 % 250 mL IVPB 20 mmol intravenous PRN Alphonse Cuenca MD Or sodium phosphate 20 mmol in sodium chloride 0.9 % 100 mL IVPB 20 mmol intravenous PRN Alphonse Cuenca MD Or sod phos di, mono-K phos mono (K-PHOS NEUTRAL) 250 mg tablet 2 tablet 2 tablet oral PRN Alphonse Cuenca MD Nutrition Focused Physical Findings remote charting at this time Skin (per nursing flow sheets): Skin Color: [place]; Pale (06/06/25 1200) Skin Temp: Warm; Dry (06/06/251199) Wound (per nursing flow sheets): Gastrointestinal (per nursing flow sheets): Abdomen Assessment: Distended; Obese (06/06/25 1200) RUQ Bowel Sounds: Active (06/06/25 1200) LUQ Bowel Sounds: Active (06/06/25 1200) RLQ Bowel Sounds: Active (06/06/251199) LLQ Bowel Sounds: Active (06/06/251199) Edema (per nursing flow sheets): RLE Edema: +2 (06/06/25 1200) LLE Edema: +2 (06/06/251199) Intake/ Output Last 24 hrs: Intake/Output Summary (Last 24 hours) at 06/06/2025 1251 Last data filed at 06/06/2025 0900 Gross per 24 hour Intake 746.58 ml Output 1925 ml Net -1178.42 ml Food/Nutrition Related History: Diet History: jose david Allergies: No Known Allergies Diet/ Nutrition Order Review: Dietary Orders (From admission, onward) Start Ordered 06/04/251916 Adult diet NPO Diet effective now Comments: Contact physician for diet order if patient passes bedside dysphagia screen. Question: Diet Type: Answer: NPO 06/04/251917 Anthropometrics: Ht Readings from Last 1 Encounters: 06/04/25 182.9 cm (6') Wt Readings from Last 20 Encounters: 06/06/25 117.4 kg (258 lb 13.1 oz) 06/04/25 93 kg (205 lb) Last 3 Weight Readings 06/04/25 2130 06/05/25 0500 06/06/25 0000 Weight: 117.3 kg (258 lb 9.6 oz) 117.3 kg (258 lb 9.6 oz) 117.4 kg (258 lb 13.1 oz) Admit Weight: 117.3kg (Bed Scale, 06/04) Usual Body Weight: NA [place] Body Weight: 80.9kg Percent [place] Body Weight: 145 Weight Changes: - Body Mass Index: Body mass index is 35.1 kg/m??. BMI Category: Obese class 2 (35.00- 39.99) Comparative Standards: Estimated Energy Needs: 2065-6217 kcals daily. Method and weight used: 25-32 kcal/kg ibw Estimated Protein Needs: 97-160 grams daily. Method and weight used: 1.2-2g protein/kg ibw Estimated Fluid Needs: 2348-6129 ml daily. Method weight used: 1 ml/kg/kcal Comments: general needs Malnutrition Status: Malnutrition Present: not with information reviewed NUTRITION DIAGNOSIS: Intake Diagnosis: Inadequate oral intake (NI 2.1) related to neurological event as evidenced by ICHand BLOCK HACKER BSSE rec pt NPO. NUTRITION INTERVENTIONS: Enteral & parenteral nutrition: will use Osmolite 1.5 25ml/hr with goal rate of 65ml/hr for 2340kcal and 97g protein, 1189ml free water Nutrition related medication management: will add free water flushes of 200ml 4x/day for [id number]. Coordination of nutrition care: contacted RN re consult. GOAL(S): pt to receive estimated nutrition needs NUTRITION MONITORING AND EVALUATION: I/O,wts, labs TF tolerance, POC Pippa Cowart R.D,L.D. Clinical dietitian Patient Touch extension:[phone] Direct Dial phone number: [phone] 06/06/25 1:10 PM documented in this encounter Nursing Notes * Jeana Osei RN - 06/11/2025 8:10 AM EDT Multidisciplinary Rounds Attendees: Bedside RN, Unit clinical lead, and Stroke RN Diet: Dietary Orders (From admission, onward) Start Ordered 06/10/25 1300 Free water 4 times daily Question: Amount in mL Answer: 300 06/10/25 0952 06/06/25 1313 Tube feeding No tray-Continuous Tube feeding No Tray-Continuous; Nasogastric or Oral gastric feeding tube; Standard 1.5 kcal; 25 (once enterla access placement is confirmed); 10; Every 6 hours; 65 Continuous Comments: Osmolite 1.5 References: Formulary Card Question Answer Comment Diet Type: Tube feeding No Tray-Continuous Tube Type: Nasogastric or Oral gastric feeding tube Tube Feeding Formula: Standard 1.5 kcal Tube Feeding Start Rate (mL/hour): 25 once enterla access placement is confirmed Increase Rate by (mL/hour): 10 Frequency of Rate increase: Every 6 hours Goal Rate (mL/hour): 65 06/06/25 1314 PT OT BLOCK HACKER: PT OT BLOCK HACKER Orders (From admission, onward) Start Ordered 06/04/251916 OT consult eval and treat Once Question Answer Comment Does patient currently have an order for bedrest? Yes - please change activity order before proceeding Has nursing attempted to mobilize this patient? NO - should occur before consult order is placed Reason for OT Stroke 06/04/25191706/04/251916 PT consult eval and treat Once Question Answer Comment Does patient currently have an order for bedrest? Yes - please change activity order before proceeding Has nursing attempted to mobilize this patient? NO - should occur before consult order is placed Reason for PT? Stroke 06/04/25191706/04/251916 ST consult eval and treat Once Question Answer Comment Reason for ST? Speech/Language/Cognition Reason for ST? Stroke Reason for ST? Bedside Swallow 06/04/251917 Activity: EM Comments: [place]: Y CVL: No Drips: Intubated: No Family Issues: None Outstanding Tests/Procedures: Barriers: Discharge Plan: SNF * Rosaura Leiva RN - 06/10/2025 7:28 AM EDT Multidisciplinary Rounds Attendees: Bedside RN, Unit clinical lead, and Stroke RN Diet: Dietary Orders (From admission, onward) Start Ordered 06/06/25 1800 Free water 4 times daily Question: Amount in mL Answer: 200 06/06/25 1314 06/06/25 1313 Tube feeding No tray-Continuous Tube feeding No Tray-Continuous; Nasogastric or Oral gastric feeding tube; Standard 1.5 kcal; 25 (once enterla access placement is confirmed); 10; Every 6 hours; 65 Continuous Comments: Osmolite 1.5 References: Formulary Card Question Answer Comment Diet Type: Tube feeding No Tray-Continuous Tube Type: Nasogastric or Oral gastric feeding tube Tube Feeding Formula: Standard 1.5 kcal Tube Feeding Start Rate (mL/hour): 25 once enterla access placement is confirmed Increase Rate by (mL/hour): 10 Frequency of Rate increase: Every 6 hours Goal Rate (mL/hour): 65 06/06/25 1314 PT OT BLOCK HACKER: PT OT BLOCK HACKER Orders (From admission, onward) Start Ordered 06/04/251916 OT consult eval and treat Once Question Answer Comment Does patient currently have an order for bedrest? Yes - please change activity order before proceeding Has nursing attempted to mobilize this patient? NO - should occur before consult order is placed Reason for OT Stroke 06/04/25191706/04/251916 PT consult eval and treat Once Question Answer Comment Does patient currently have an order for bedrest? Yes - please change activity order before proceeding Has nursing attempted to mobilize this patient? NO - should occur before consult order is placed Reason for PT? Stroke 06/04/25191706/04/251916 ST consult eval and treat Once Question Answer Comment Reason for ST? Speech/Language/Cognition Reason for ST? Stroke Reason for ST? Bedside Swallow 06/04/251917 Activity: Bedrest Comments: [place]: Y CVL: No Drips: Intubated: No Family Issues: None Outstanding Tests/Procedures: Barriers: Discharge Plan: SNF * Rosaura Leiva RN - 06/09/2025 7:40 AM EDT Multidisciplinary Rounds Attendees: Bedside RN, Unit clinical lead, and Stroke RN Diet: Dietary Orders (From admission, onward) Start Ordered 06/06/25 1800 Free water 4 times daily Question: Amount in mL Answer: 200 06/06/25 1314 06/06/25 1313 Tube feeding No tray-Continuous Tube feeding No Tray-Continuous; Nasogastric or Oral gastric feeding tube; Standard 1.5 kcal; 25 (once enterla access placement is confirmed); 10; Every 6 hours; 65 Continuous Comments: Osmolite 1.5 References: Formulary Card Question Answer Comment Diet Type: Tube feeding No Tray-Continuous Tube Type: Nasogastric or Oral gastric feeding tube Tube Feeding Formula: Standard 1.5 kcal Tube Feeding Start Rate (mL/hour): 25 once enterla access placement is confirmed Increase Rate by (mL/hour): 10 Frequency of Rate increase: Every 6 hours Goal Rate (mL/hour): 65 06/06/25 1314 PT OT BLOCK HACKER: PT OT BLOCK HACKER Orders (From admission, onward) Start Ordered 06/04/251916 OT consult eval and treat Once Question Answer Comment Does patient currently have an order for bedrest? Yes - please change activity order before proceeding Has nursing attempted to mobilize this patient? NO - should occur before consult order is placed Reason for OT Stroke 06/04/25191706/04/251916 PT consult eval and treat Once Question Answer Comment Does patient currently have an order for bedrest? Yes - please change activity order before proceeding Has nursing attempted to mobilize this patient? NO - should occur before consult order is placed Reason for PT? Stroke 06/04/25191706/04/251916 ST consult eval and treat Once Question Answer Comment Reason for ST? Speech/Language/Cognition Reason for ST? Stroke Reason for ST? Bedside Swallow 06/04/251917 Activity: Bedrest Comments: [place]: Y CVL: No Drips: cardene Intubated: No Family Issues: None Outstanding Tests/Procedures: Barriers: cardene Discharge Plan: SNF * Rosaura Leiva RN - 06/08/2025 8:01 AM EDT Multidisciplinary Rounds Attendees: Bedside RN, Unit clinical lead, and Stroke RN Diet: Dietary Orders (From admission, onward) Start Ordered 06/06/25 1800 Free water 4 times daily Question: Amount in mL Answer: 200 06/06/25 1314 06/06/25 1313 Tube feeding No tray-Continuous Tube feeding No Tray-Continuous; Nasogastric or Oral gastric feeding tube; Standard 1.5 kcal; 25 (once enterla access placement is confirmed); 10; Every 6 hours; 65 Continuous Comments: Osmolite 1.5 References: Formulary Card Question Answer Comment Diet Type: Tube feeding No Tray-Continuous Tube Type: Nasogastric or Oral gastric feeding tube Tube Feeding Formula: Standard 1.5 kcal Tube Feeding Start Rate (mL/hour): 25 once enterla access placement is confirmed Increase Rate by (mL/hour): 10 Frequency of Rate increase: Every 6 hours Goal Rate (mL/hour): 65 06/06/25 1314 PT OT BLOCK HACKER: PT OT BLOCK HACKER Orders (From admission, onward) Start Ordered 06/04/251916 OT consult eval and treat Once Question Answer Comment Does patient currently have an order for bedrest? Yes - please change activity order before proceeding Has nursing attempted to mobilize this patient? NO - should occur before consult order is placed Reason for OT Stroke 06/04/25191706/04/251916 PT consult eval and treat Once Question Answer Comment Does patient currently have an order for bedrest? Yes - please change activity order before proceeding Has nursing attempted to mobilize this patient? NO - should occur before consult order is placed Reason for PT? Stroke 06/04/25191706/04/251916 ST consult eval and treat Once Question Answer Comment Reason for ST? Speech/Language/Cognition Reason for ST? Stroke Reason for ST? Bedside Swallow 06/04/251917 Activity: Bedrest Comments: Mayo: No CVL: No Drips: cardene Intubated: No Family Issues: None Outstanding Tests/Procedures: EEG Barriers: cardene Discharge Plan: Needs PT/OT evaluation * Elizabeth Kenny RN - 06/06/2025 8:28 AM EDT Multidisciplinary Rounds Attendees: Bedside RN, Unit clinical lead, and Stroke RN Diet: Dietary Orders (From admission, onward) Start Ordered 06/04/251916 Adult diet NPO Diet effective now Comments: Contact physician for diet order if patient passes bedside dysphagia screen. Question: Diet Type: Answer: NPO 06/04/251917 PT OT BLOCK HACKER: PT OT BLOCK HACKER Orders (From admission, onward) Start Ordered 06/04/251916 OT consult eval and treat Once Question Answer Comment Does patient currently have an order for bedrest? Yes - please change activity order before proceeding Has nursing attempted to mobilize this patient? NO - should occur before consult order is placed Reason for OT Stroke 06/04/25191706/04/251916 PT consult eval and treat Once Question Answer Comment Does patient currently have an order for bedrest? Yes - please change activity order before proceeding Has nursing attempted to mobilize this patient? NO - should occur before consult order is placed Reason for PT? Stroke 06/04/25191706/04/251916 ST consult eval and treat Once Question Answer Comment Reason for ST? Speech/Language/Cognition Reason for ST? Stroke Reason for ST? Bedside Swallow 06/04/251917 Activity: Bedrest Comments: Mayo: No CVL: No Drips: None Intubated: No Family Issues: None Outstanding Tests/Procedures: MRI and EEG Barriers: new bleed, MRI Discharge Plan: Needs PT/OT evaluation * Jeana Osei RN - 06/05/2025 8:27 AM EDT Multidisciplinary Rounds Attendees: Bedside RN, Unit clinical lead, and Stroke RN Diet: Dietary Orders (From admission, onward) Start Ordered 06/04/251916 Adult diet NPO Diet effective now Comments: Contact physician for diet order if patient passes bedside dysphagia screen. Question: Diet Type: Answer: NPO 06/04/251917 PT OT BLOCK HACKER: PT OT BLOCK HACKER Orders (From admission, onward) Start Ordered 06/04/251916 OT consult eval and treat Once Question Answer Comment Does patient currently have an order for bedrest? Yes - please change activity order before proceeding Has nursing attempted to mobilize this patient? NO - should occur before consult order is placed Reason for OT Stroke 06/04/25191706/04/251916 PT consult eval and treat Once Question Answer Comment Does patient currently have an order for bedrest? Yes - please change activity order before proceeding Has nursing attempted to mobilize this patient? NO - should occur before consult order is placed Reason for PT? Stroke 06/04/25191706/04/251916 ST consult eval and treat Once Question Answer Comment Reason for ST? Speech/Language/Cognition Reason for ST? Stroke Reason for ST? Bedside Swallow 06/04/251917 Activity: Bedrest Comments: Mayo: No CVL: No Drips: None Intubated: No Family Issues: None Outstanding Tests/Procedures: MRI and EEG Barriers: new bleed, MRI Discharge Plan: Needs PT/OT evaluation documented in this encounter ED Notes * Jennifer Alex PA-C - 06/04/2025 5:33 PM EDT Images from the original note were not included. [facility] [place] - EMERGENCY DEPARTMENT Pt Name: Gianni Babin Birthdate: 1955 Chief Complaint: Chief Complaint Patient presents with ??? Fall History of Present Illness: Pt is a 70 y.o. male has no past medical history on file. that presents to the ED today with chief complaint of AMS. Patient presents as a transfer from [facility] for trauma consult. Family believes patient might have fallen 2 days ago, unsure if he did fall. Today his son found him acting altered and to come to the ER for evaluation. They found a 2.3 cm thalamic hemorrhage with intraventricular extension. Patient unable to tell us what happened. Daughter states patient started Eliquis within the past 2 weeks due to a blood clot in his left lower leg. Daughter also states that patient is a high functioning alcoholic - states he drinks 12-13 beers per day but never appears intoxicated. Patient also smokes. At [place], patient was given Kcentra, Keppra and started on a Cardene drip History provided by: Medical records and relative Past Medical History: History reviewed. No pertinent past medical history. Past Surgical History: No past surgical history on file. Family History: History reviewed. No pertinent family history. Social History: Social History Socioeconomic History ??? Marital status: Social Drivers of Health Food Insecurity: No Food Insecurity (06/04/2025) Hunger Screening ??? Food Insecurity - Worry: Never True ??? Food Insecurity - Inability: Never True Review of Systems: Review of Systems Physical Exam: ED Triage Vitals Temp Pulse Resp BP SpO2 -- -- -- -- -- Temp src Heart Rate Source Patient Position BP Location FiO2 (%) -- -- -- -- -- Vitals: 06/04/25 2100 06/04/25 2130 06/04/25 2200 06/04/25 2300 BP: 119/78 (!) 114/97 105/50 Temp: 36.5 ??C (97.7 ??F) TempSrc: Oral Pulse: 85 86 82 77 Resp: 18 19 14 18 SpO2: 94% 92% 93% 90% MAP (mmHg): 92 104 66 Height: 182.9 cm (6') Weight: 117.3 kg (258 lb 9.6 oz) 92 Physical Exam Vitals and nursing note reviewed. Constitutional: Appearance: Normal appearance. HENT: Head: Normocephalic and atraumatic. Eyes: Extraocular Movements: Extraocular movements intact. Pupils: Pupils are equal, round, and reactive to light. Cardiovascular: Rate and Rhythm: Normal rate. Pulmonary: Effort: Pulmonary effort is normal. No respiratory distress. Comments: On nasal cannula Abdominal: General: Abdomen is protuberant. Tenderness: There is no abdominal tenderness. Musculoskeletal: Comments: Bilateral LE swelling, L>R. Mild erythema to left lower leg. Known DVT in left lower leg. Skin: General: Skin is warm and dry. Comments: Bruising to bilateral upper extremities Neurological: General: No focal deficit present. Mental Status: He is alert. He is disoriented. GCS: GCS eye subscore is 4. GCS verbal subscore is 5. GCS motor subscore is 6. Sensory: Sensation is intact. Motor: Weakness (weakness to bilateral lower extremities with leg lift, dorsiflexion, plantarflexion) present. Comments: Oriented to person and place. Patient believes it is 1982 and the president is Sameer Reilly. He is unsure why he is here and does not know if he had any head trauma. Patient follows commands but is sleepy Procedure: Procedures Re-evaluation: Re-Evaluation Medical Decision Making Medical Decision Making History obtained from: Family member Chief Complaint: AMS Chronic illnesses impacting care: This patient has no past medical history on file. Social determinants impacting care: Tobacco use and Alcohol use Discussion with patient: Patient is agreeable to initial plan of care. All questions and concerns addressed. Decision regarding hospitalization: If patient has reassuring testing, anticipate discharge with close PCP follow up and return precautions. Otherwise, will pursue hospital observation or admission. Summary: Patient presents as a transfer from [place] after he was found to have a intracranial hemorrhage. On arrival patient is sleepy but is easily aroused. He is oriented to self and place during my exam however his orientation seems to fluctuate throughout his time in the ER. Trauma team was consulted. Trauma team consulted Neurology. Patient accepted for admission under neurology team. Family agreeable with plan Initial plan of care: Continue Jerrod giraldo, consult Trauma Labs notable for: Performed at outside facility Imaging notable for: Performed at outside facility Discussion with other providers: Gamma Ray Operator Case was discussed with Dr. Smith, who agrees with the plan of care Amount and/or Complexity of Data Reviewed Labs: ordered. ED Course: Clinical Impressions as of 06/05/25 0028 Traumatic intracerebral hemorrhage with unknown loss of consciousness status, unspecified laterality, subsequent encounter . ED Disposition ED Disposition Admit Date/Time WedJun 04, 2025 7:19 PM Comment Diagnosis: ICH (intracerebral hemorrhage) ([facility]) [[id number]] Attending Provider: PATRICIA MCCLELLAN [[id number]] Estimated length of stay?: >2 midnights/In-patient only procedure/<96 hours Critical Access Certification: I certify that inpatient services are medically necessary for this patient for a duration of greater than two midnights. See H&P and MD Progress Notes for additional information about the patient's course of treatment. Medications Prescribed this Visit This print group is not available in inpatient encounters. Please contact a security system administrator. Shared/Split Visit 18:03 EDT Dia Wyman (scribe), scribed for and in the presence of: Dr. James Smith who performed the aboveservice. I, Dr. James Smith personally performed a [id number] diagnostic evaluation on this patient. I personally made and approved the management plan for this patient and take responsibility for the patient management. Additional Notes/Findings: Gianni Babin is a 70 y.o. male presenting to the ED for chief complaint of fall. Patient arrives with his daughter. Exam findings as follows: Constitutional: Awake and alert HENT: Head normocephalic and atraumatic Eyes: conjunctiva unremarkable Cardiovascular: Heart rate regular Pulmonary: Easy work of breathing, speaking full sentences Abdominal: Flat and non-distended Skin: Warm and dry Musculoskeletal: Moving all extremities spontaneously Neurological: Altered, confused. Not at baseline Please note that portions of this note were completed with a voice recognition program. Efforts were made to edit the dictations but occasionally words are mis-transcribed. Jennifer Alex PA-C 06/04/25 1733 Jennifer Alex PA-C 06/04/25 1801 Dia Root 06/04/25 1807 Jennifer Alex PA-C 06/05/25 0003 * Tegan Kelly RN - 06/04/2025 5:25 PM EDT Bed: 27 Expected date: Expected time: Means of arrival: [facility] Comments: [place] Trauma Consult Gianni Babin 70 yrs M (1955) Fall 2 days ago Brain Bleed Trauma Consult Dr Rajput [facility] CT brain 2.3cm 2350units K-centra, 2000mg keppra, 20mg Labatolol Cardene started on 10mg/hr IVx2 A&O x2, slightly confused On Eliquis Sinus 74 96% 2L 134/83 ETA 10 minutes documented in this encounter Miscellaneous Notes * Discharge Planning Note - Chloe Denis - 06/22/2025 2:26 PM EDT DISCHARGE PLANNING NOTE CRF/Med Rec sent to. [facility] [place] (P# ; F# ) * Discharge Planning Note - Chaya Yoder - 06/22/2025 1:58 PM EDT DISCHARGE PLANNING NOTE 2nd IMM letter sent via certified mail Olinda Babin * Discharge Planning Note - Shawna Corral - 06/22/2025 10:48 AM EDT DISCHARGE PLANNING NOTE Clinical updates sent to [facility] (P# ; F# ) * Discharge Planning Note - Olinda Huddleston RN - 06/22/2025 10:42 AM EDT Ongoing Assessment for Discharge Needs Reviewed discharge milestones and patient needs related to discharge plan. Current estimated discharge date of Jun 22, 2025 has been reviewed by treatment team. Ongoing Assessment for Discharge Needs Flowsheet Row Most Recent Value Referral To Community Referrals / Resources Provided Denies needs Services Requested Patient expects to be discharged to: SNF Does the patient wish to have family/friend/caregiver involved in their discharge planning? Yes Does the patient plan to return home to a community setting? No, patient to discharge to facility-based provider. See Discharge Disposition Discharge Disposition SNF SNF Name [facility] SNF Accepted? Yes PreCertification Authorization Number [id number] PreCertification Expiration Date 06/27/25 PreCertification Expiration Time 0363 Does the patient need discharge transportation arranged? Yes Mobility issues discussed with transportation provider No Patient choice offered Yes List Provided Yes [facility] List Provided Nursing Home Facility Per RN during discharge transition rounds, barriers to discharge are: lab work, planning discharge today. Need DC orders for SNF. Discharge Plan: SNF. [facility] . We received auth today. Dates 06/22- 06/27. PTN BLS scheduled for 3pm. CN called , no answer. CN called and left message for son Raghavendra. Tasked [facility] to send IMM to . Hospital Admitting Clerk will continue to follow for any discharge needs. - Olinda Huddleston RN 06/22/25 10:48 AM Addendum: [facility] transport at 530pm now by BLS. Patient removed mayo and nurse replaced mayo. Discussed discharge plans with this afternoon by phone. HENS completed. DC CRF completed and tasked [facility] to send DC CRF to [facility]. Epic link opened for [facility] - Olinda Huddleston RN 06/22/25 2:29 PM * Plan of Care - Peter Rubio RN - 06/22/2025 10:09 AM EDT Problem: Pain Goal: Patient goal is pain score less than 4, able to rest, and participant in treatment plan as appropriate Description: INTERVENTIONS: 1. Encourage patient or legal junior sales representative to report early pain and ask for pain medicine when needed 2. Assess pain using appropriate pain scale and include the scale used when documenting 3. Administer analgesics based on type and severity of pain and evaluate response within appropriate time frame 4. Implement non-pharmacological measures as appropriate and evaluate response 5. Consider cultural and social influences on pain and pain management 6. Notify LIP if interventions ineffective or patient reports new pain 7. Monitor vital signs including pulse ox, end-tidal CO2 based on pain intervention 8. Reassess pain per policy 9. Teach patient or legal junior sales representative interventions for comforting Outcome: Adequate for Discharge Problem: Safety Goal: Patient will be injury free during hospitalization Description: INTERVENTIONS: 1. Assess patient's risk for falls and implement fall prevention plan of care per policy 2. Provide and maintain a safe environment 3. Proper use of double Identifiers 4. Medication administration using the 5 rights 5. Hand hygiene 6. Specimens are labeled at the bedside 7. Instruct patient/ patient junior sales representative about use of safety devices 8. Include patient/ patient junior sales representative in decisions related to safety Outcome: Adequate for Discharge Problem: Infection Goal: Absence of infection during hospitalization Description: INTERVENTIONS 1. Assess and monitor for signs and symptoms of infection. 2. Monitor lab/diagnostic results. 3. Monitor all insertion sites i.e., indwelling lines, tubes and drains. 4. Monitor endotracheal (as able) and nasal secretions for changes in amount and color. 5. Administer medications as ordered. 6. Instruct and encourage patient and family to use good hand hygiene technique. 7. Identify and instruct patient/patient junior sales representative in use of appropriate isolation precautionsfor identified infection/symptoms. 8. Provide and discuss with patient/patient junior sales representative on educational MDRO sheet. 9. Encourage and monitor nutritional status daily and consult cleaner window if indicated. 10. Implement neutropenic guidelines as needed. Outcome: Adequate for Discharge Problem: Knowledge Deficit Goal: Patient/patient junior sales representative demonstrates understanding of disease process, treatment plan,medications, and discharge instructions Description: INTERVENTIONS 1. Complete learning assessment and assess knowledge base 2. Provide teaching at level of understanding 3. Provide teaching via preferred learning method(s) Outcome: Adequate for Discharge Problem: Discharge Planning Goal: Discharge to post-acute care, other facility, or home with appropriate resources Description: Patient's goal is: INTERVENTIONS 1. Conduct assessment to determine patient/family and health care team treatment goals, and need for post-acute services based on payer coverage, community resources, and patient preferences, and barriers to discharge 2. Coordinate with Social work, Care Navigation, and Utilization Review to arrange appropriate level of services according to patient's needs based on patient preference and payer coverage in collaboration with the physician and health care team 3. Address psychosocial, clinical, and financial barriers to discharge as identified in assessment in conjunction with the patient/family and health care team 4. Consult appropriate ancillary services (i.e.. PT/OT/ST, etc) as needed 5. Communicate with and update the patient/family, physician, and health care team regarding progress on the discharge plan 6. Identify discharge learning needs (meds, wound care, etc). 7. Arrange for needed discharge transportation as appropriate Outcome: Adequate for Discharge Problem: Neurological Deficit Goal: Neurological status is stable or improving Description: Patient's goal is: INTERVENTIONS 1. Complete Neurological assessment as indicated/ordered 2. Initiate measures to prevent increased intracranial pressure 3. Monitor and assess patient's level of consciousness, motor function, sensory function, and levelof assistance needed for ADLs 4. Monitor and report changes from baseline 5. Maintain blood pressure and fluid volume within ordered parameters to optimize cerebral perfusion and minimize risk of hemorrhage 6. Monitor labs and diagnostic tests 7. Administer anti-seizure medications as ordered 8. Maintain airway, patient safety and administer oxygen as ordered 9. Monitor patient for seizure activity, document and report duration and description of seizure toLIP 10. If seizure occurs, turn patient to side and suction secretions as needed 11. Reorient patient post seizure 12. Seizure pads on all 4 side rails 13. Instruct patient/family to notify RN of any seizure activity 14. Instruct patient/family to call for assistance with activity based on assessment 15. Utilize bleeding precautions if thrombolytic given Outcome: Adequate for Discharge Problem: Activity Intolerance/Impaired Mobility Goal: Mobility/activity is maintained at optimum level for patient Description: Patient's goal is: INTERVENTIONS 1. Assess and monitor patient barriers to mobility and need for assistive/adaptive devices 2. Assess patient's emotional response to limitations 3. Collaborate with interdisciplinary teams and initiate plans and interventions as ordered 4. Encourage independent activity per tolerance 5. Maintain proper body alignment 6. Perform active/passive ROM as tolerated/ordered 7. Coordinate activities to conserve energy 8. Reposition patient 9. Ensure adequate rest/sleep time Outcome: Adequate for Discharge Problem: Communication Impairment Goal: Ability to express needs and understand communication Description: INTERVENTIONS 1. Assess patient's communication skills and ability to understand information 2. Provide alternate method of communication if needed i.e. ipad, sign board, pen/paper 3. Collaborate with Speech Therapy to develop effective communication strategies 4. Include patient/patient junior sales representative in decisions related to communication Outcome: Adequate for Discharge Problem: Potential for Aspiration Goal: Patient's risk of aspiration is minimized Description: INTERVENTIONS 1. Assess and monitor vital signs, respiratory status, and labs (WBC) 2. Monitor for signs of aspiration (tachypnea, cough, rales, wheezing, cyanosis, fever) 3. Assess and monitor patient's ability to swallow 4. Place patient up in chair to eat if possible 5. Elevate head of bed 90 degrees to eat if unable to get patient up into chair 6. Supervise patient during oral intake 7. Instruct patient to take small bites 8. Instruct patient to take small single sips when taking liquids 9. Follow patient-specific strategies generated by speech pathologist 10. Complete bedside swallow screen if appropriate and take actions as indicated. 11. Administer prescribed medications and monitor effects Outcome: Adequate for Discharge Problem: Anxiety Goal: Anxiety is at manageable level Description: Patient's goal is: INTERVENTIONS 1. Assess and monitor patient's anxiety level 2. Monitor for signs and symptoms of anxiety both physical and emotional (heart palpitations, chestpain, shortness of breath, headaches, nausea, feeling jumpy, restlessness, irritable, apprehensive) 3. Reorient/orient patient to unit/surroundings 4. Explain treatment plan 5. Explain tests/procedures prior to initiation 6. Encourage participation in care 7. Encourage verbalization of concerns/fears 8. Assess coping mechanisms 9. Assist in developing anxiety-reducing skills 10. Administer complimentary therapies 11. Manage patient's environment 12. Limit or eliminate stimulants such as caffeine and nicotine 13. Collaborate with ancillary departments 14. Include patient/patient junior sales representative in decisions related to anxiety Outcome: Adequate for Discharge Problem: Potential for Compromised Skin Integrity Goal: Skin integrity is maintained or improved Description: Patient's goal is: INTERVENTIONS 1. Perform initial skin assessment on admission and as needed 2. Turn patient every 2 hours and PRN 3. Relieve pressure to bony prominences 4. Avoid shearing 5. Keep skin clean and dry 6. Alternate a full bath with partial baths for elderly 7. Apply lotion/moisturizer on skin 8. Monitor patient's hygiene practices 9. Float heels 10. Collaborate with interdisciplinary team and initiate plans and interventions as needed Outcome: Adequate for Discharge Goal: Patient's nutritional intake is adequate Description: Patient's goal is: INTERVENTIONS 1. Assess and monitor food intake and supplements, patient food preferences, nausea, vomiting, labs, oral cavity (gums, teeth, tongue, mucosa), proper denture fit, and cultural beliefs 2. Monitor for signs of hypoglycemia and hyperglycemia 3. Collaborate with interdisciplinary team and initiate plan and interventions as ordered 4. Monitor patient's weight 5. Assist patient with meals/food selection 6. Assist patient with eating 7. Allow adequate time for meals 8. Provide pleasant environment during mealtime 9. Increase social contact during mealtimes 10. Plan activities to conserve energy 11. Encourage/perform oral hygiene as appropriate 12. Encourage patient to take dietary supplement as ordered 13. Collaborate with clinical cleaner window 14. Include patient/ patient's junior sales representative in decisions related to nutrition Outcome: Adequate for Discharge Problem: Self Care Deficit Goal: Return ADL status to a safe level of function Description: Patient's goal is: INTERVENTIONS 1. Administer medication as ordered 2. Assess ADL deficits and provide assistive devices as needed 3. Obtain PT/OT consults as needed 4. Assist and instruct patient to increase activity and self care as tolerated Outcome: Adequate for Discharge Problem: Moderate - High Risk Fall Score Description: Triangle Fall Score of =/> 25 or indicated by [facility] Assessment Goal: Patient should be free from fall Description: Interventions: 1. [place] to environment 2. Hourly rounds addressing the 4 P's (Pain, Positioning, Possessions, Potty) 3. Clear area of hazards (spills, clutter, electrical cords, unnecessary equipment) 4. Place equipment (bed & TV controls, call light, phone, urinal) within reach 5. Encourage patient to wear glasses and hearing aides as appropriate 6. Maintain bed in lowest position 7. Lock wheels on bed/wheelchair 8. Provide adequate lighting, including night light 9. Assess need for additional bedding, food/fluids, pain med's prior to sleep/routinely 10. Provide gripper slippers or personal non-skid footwear 11. Teach patient and patient junior sales representative to maintain environment for safety and engage in all aspects of fall prevention program 12. Remind patient to call for help before getting out of bed 13. Initiate bed/chair/exit alarms supportive devices as appropriate, (chair wedge, no-skid floor mat, raised edge mattress, hip protectors) 14. Locate patient bed assignment for optimal visualization 15. Evaluate and identify Safe Patient Handling Equipment needs 16. Provide supervision when out of bed or chair 17. Utilize gait belt as needed to assist with ambulation 18. Place adaptive equipment (cane, walker) within reach 19. Request patient junior sales representative bring adaptive equipment/mobility aids from home or obtain and provide as needed 20. Consult pharmacy regarding effects of med's affecting mobility, cognition, and alternatives 21. Obtain physician order for PT if risk factors associated with mobility are present 22. Obtain physician order for OT as appropriate 23. Utilize diversional activities 24. Educate patient and patient junior sales representative how to maintain a safe environment during visitationtimes (notify nurse prior to leaving bedside) 25. Consider appropriateness of medical or non-medical surgical tech 26. Set up voiding schedule as appropriate (every 2 hours) Outcome: Adequate for Discharge Problem: Multi-Drug Resistant Organism / Rule-Out Infection Prevention Goal: Prevent transmission of infection Description: INTERVENTIONS 1. Place patient in private room or in room with patient with same disease 2. Discard single-use items 3. Clean reusable equipment between patients 4. Wear gloves for direct and indirect contact with patient or contaminants 5. Change gloves between tasks and procedures 6. Wash hands before and after caring for each patient 7. Wear appropriate personal protective equipment in relation to the indicated isolation type 8. Place appropriate isolation signage on patient's door 9. Provide patient/ patient junior sales representative with isolation education. Outcome: Adequate for Discharge Problem: Safety - Medical Restraint Goal: Remains free of injury from restraints (Restraint for Interference with Radio Script Writer) Description: INTERVENTIONS: 1. Determine that other, less restrictive measures have been tried or would not be effective beforeapplying the restraint 2. Evaluate the patient's condition at the time of restraint application 3. Inform patient/family regarding the reason for restraint 4. Q2H: Monitor safety, Vital signs, psychosocial status, signs of injury, skin integrity, circulation, neurovascular status in affected extremities, respiratory status, comfort, nutrition and hydration, hygiene, ROM, elimination needs 5. Doctor will be notified of restraint 6. RN properly applies restraints per physician order Outcome: Adequate for Discharge Goal: Free from restraint(s) (Restraint for Interference with Radio Script Writer) Description: INTERVENTIONS: 1. Hourly rounds addressing the 4 P's (Pain, Positioning, Possessions, Potty) 2. Order is valid for the duration of the episode of care 3. Discontinue at the earliest possible time once the reason for restraints no longer exists 4. Identify and implement measures to help patient regain control 5. Food, fluids, and toilet offered at a minimum of every 2 hours 6. RN modifies the patient's plan of care by entering a problem statement related to safety; individualizes the safety outcome Outcome: Adequate for Discharge * Discharge Planning Note - Yanci Mix - 06/22/2025 7:50 AM EDT DISCHARGE PLANNING NOTE Prior Auth approved for admission to : [facility] (P# ; F# ) Approval #[id number] Valid for Dates: 06.21.2025-06.27.2025 * Plan of Care - Cooper Zavala RN - 06/22/2025 1:04 AM EDT Problem: Pain Goal: Patient goal is pain score less than 4, able to rest, and participant in treatment plan as appropriate Description: INTERVENTIONS: 1. Encourage patient or legal junior sales representative to report early pain and ask for pain medicine when needed 2. Assess pain using appropriate pain scale and include the scale used when documenting 3. Administer analgesics based on type and severity of pain and evaluate response within appropriate time frame 4. Implement non-pharmacological measures as appropriate and evaluate response 5. Consider cultural and social influences on pain and pain management 6. Notify LIP if interventions ineffective or patient reports new pain 7. Monitor vital signs including pulse ox, end-tidal CO2 based on pain intervention 8. Reassess pain per policy 9. Teach patient or legal junior sales representative interventions for comforting Outcome: Progressing Note: Patient able to rest without being in pain Problem: Safety Goal: Patient will be injury free during hospitalization Description: INTERVENTIONS: 1. Assess patient's risk for falls and implement fall prevention plan of care per policy 2. Provide and maintain a safe environment 3. Proper use of double Identifiers 4. Medication administration using the 5 rights 5. Hand hygiene 6. Specimens are labeled at the bedside 7. Instruct patient/ patient junior sales representative about use of safety devices 8. Include patient/ patient junior sales representative in decisions related to safety Outcome: Progressing Note: Patient will not incur any injuries during stay Problem: Infection Goal: Absence of infection during hospitalization Description: INTERVENTIONS 1. Assess and monitor for signs and symptoms of infection. 2. Monitor lab/diagnostic results. 3. Monitor all insertion sites i.e., indwelling lines, tubes and drains. 4. Monitor endotracheal (as able) and nasal secretions for changes in amount and color. 5. Administer medications as ordered. 6. Instruct and encourage patient and family to use good hand hygiene technique. 7. Identify and instruct patient/patient junior sales representative in use of appropriate isolation precautionsfor identified infection/symptoms. 8. Provide and discuss with patient/patient junior sales representative on educational MDRO sheet. 9. Encourage and monitor nutritional status daily and consult cleaner window if indicated. 10. Implement neutropenic guidelines as needed. Outcome: Progressing Note: Evaluation of progress towards goal: Patient will not acquire any infections during stay Problem: Knowledge Deficit Goal: Patient/patient junior sales representative demonstrates understanding of disease process, treatment plan,medications, and discharge instructions Description: INTERVENTIONS 1. Complete learning assessment and assess knowledge base 2. Provide teaching at level of understanding 3. Provide teaching via preferred learning method(s) Outcome: Progressing Note: Evaluation of progress towards goal: Patient will be educated on treatment plan during stay Problem: Discharge Planning Goal: Discharge to post-acute care, other facility, or home with appropriate resources Description: Patient's goal is: INTERVENTIONS 1. Conduct assessment to determine patient/family and health care team treatment goals, and need for post-acute services based on payer coverage, community resources, and patient preferences, and barriers to discharge 2. Coordinate with Social work, Care Navigation, and Utilization Review to arrange appropriate level of services according to patient's needs based on patient preference and payer coverage in collaboration with the physician and health care team 3. Address psychosocial, clinical, and financial barriers to discharge as identified in assessment in conjunction with the patient/family and health care team 4. Consult appropriate ancillary services (i.e.. PT/OT/ST, etc) as needed 5. Communicate with and update the patient/family, physician, and health care team regarding progress on the discharge plan 6. Identify discharge learning needs (meds, wound care, etc). 7. Arrange for needed discharge transportation as appropriate Outcome: Progressing Note: Evaluation of progress towards goal: Patient will be informed on discharge plan during stay Problem: Neurological Deficit Goal: Neurological status is stable or improving Description: Patient's goal is: INTERVENTIONS 1. Complete Neurological assessment as indicated/ordered 2. Initiate measures to prevent increased intracranial pressure 3. Monitor and assess patient's level of consciousness, motor function, sensory function, and levelof assistance needed for ADLs 4. Monitor and report changes from baseline 5. Maintain blood pressure and fluid volume within ordered parameters to optimize cerebral perfusion and minimize risk of hemorrhage 6. Monitor labs and diagnostic tests 7. Administer anti-seizure medications as ordered 8. Maintain airway, patient safety and administer oxygen as ordered 9. Monitor patient for seizure activity, document and report duration and description of seizure toLIP 10. If seizure occurs, turn patient to side and suction secretions as needed 11. Reorient patient post seizure 12. Seizure pads on all 4 side rails 13. Instruct patient/family to notify RN of any seizure activity 14. Instruct patient/family to call for assistance with activity based on assessment 15. Utilize bleeding precautions if thrombolytic given Outcome: Progressing Note: Patient will have improved neurological status over stay Problem: Activity Intolerance/Impaired Mobility Goal: Mobility/activity is maintained at optimum level for patient Description: Patient's goal is: INTERVENTIONS 1. Assess and monitor patient barriers to mobility and need for assistive/adaptive devices 2. Assess patient's emotional response to limitations 3. Collaborate with interdisciplinary teams and initiate plans and interventions as ordered 4. Encourage independent activity per tolerance 5. Maintain proper body alignment 6. Perform active/passive ROM as tolerated/ordered 7. Coordinate activities to conserve energy 8. Reposition patient 9. Ensure adequate rest/sleep time Outcome: Progressing Note: Evaluation of progress towards goal: Patient will have improved mobility during stay Problem: Communication Impairment Goal: Ability to express needs and understand communication Description: INTERVENTIONS 1. Assess patient's communication skills and ability to understand information 2. Provide alternate method of communication if needed i.e. ipad, sign board, pen/paper 3. Collaborate with Speech Therapy to develop effective communication strategies 4. Include patient/patient junior sales representative in decisions related to communication Outcome: Progressing Note: Evaluation of progress towards goal: Patient will be able to express care needs over stay Problem: Potential for Aspiration Goal: Patient's risk of aspiration is minimized Description: INTERVENTIONS 1. Assess and monitor vital signs, respiratory status, and labs (WBC) 2. Monitor for signs of aspiration (tachypnea, cough, rales, wheezing, cyanosis, fever) 3. Assess and monitor patient's ability to swallow 4. Place patient up in chair to eat if possible 5. Elevate head of bed 90 degrees to eat if unable to get patient up into chair 6. Supervise patient during oral intake 7. Instruct patient to take small bites 8. Instruct patient to take small single sips when taking liquids 9. Follow patient-specific strategies generated by speech pathologist 10. Complete bedside swallow screen if appropriate and take actions as indicated. 11. Administer prescribed medications and monitor effects Outcome: Progressing Note: Evaluation of progress towards goal: Patient head above 30 degrees Problem: Anxiety Goal: Anxiety is at manageable level Description: Patient's goal is: INTERVENTIONS 1. Assess and monitor patient's anxiety level 2. Monitor for signs and symptoms of anxiety both physical and emotional (heart palpitations, chestpain, shortness of breath, headaches, nausea, feeling jumpy, restlessness, irritable, apprehensive) 3. Reorient/orient patient to unit/surroundings 4. Explain treatment plan 5. Explain tests/procedures prior to initiation 6. Encourage participation in care 7. Encourage verbalization of concerns/fears 8. Assess coping mechanisms 9. Assist in developing anxiety-reducing skills 10. Administer complimentary therapies 11. Manage patient's environment 12. Limit or eliminate stimulants such as caffeine and nicotine 13. Collaborate with ancillary departments 14. Include patient/patient junior sales representative in decisions related to anxiety Outcome: Progressing Note: Evaluation of progress towards goal: Patient anxiety will be managed during stay Problem: Potential for Compromised Skin Integrity Goal: Skin integrity is maintained or improved Description: Patient's goal is: INTERVENTIONS 1. Perform initial skin assessment on admission and as needed 2. Turn patient every 2 hours and PRN 3. Relieve pressure to bony prominences 4. Avoid shearing 5. Keep skin clean and dry 6. Alternate a full bath with partial baths for elderly 7. Apply lotion/moisturizer on skin 8. Monitor patient's hygiene practices 9. Float heels 10. Collaborate with interdisciplinary team and initiate plans and interventions as needed Outcome: Progressing Note: Evaluation of progress towards goal: Patient skin assessed every shift Goal: Patient's nutritional intake is adequate Description: Patient's goal is: INTERVENTIONS 1. Assess and monitor food intake and supplements, patient food preferences, nausea, vomiting, labs, oral cavity (gums, teeth, tongue, mucosa), proper denture fit, and cultural beliefs 2. Monitor for signs of hypoglycemia and hyperglycemia 3. Collaborate with interdisciplinary team and initiate plan and interventions as ordered 4. Monitor patient's weight 5. Assist patient with meals/food selection 6. Assist patient with eating 7. Allow adequate time for meals 8. Provide pleasant environment during mealtime 9. Increase social contact during mealtimes 10. Plan activities to conserve energy 11. Encourage/perform oral hygiene as appropriate 12. Encourage patient to take dietary supplement as ordered 13. Collaborate with clinical cleaner window 14. Include patient/ patient's junior sales representative in decisions related to nutrition Outcome: Progressing Note: Evaluation of progress towards goal: Patient nutritional intake will be adequate Problem: Self Care Deficit Goal: Return ADL status to a safe level of function Description: Patient's goal is: INTERVENTIONS 1. Administer medication as ordered 2. Assess ADL deficits and provide assistive devices as needed 3. Obtain PT/OT consults as needed 4. Assist and instruct patient to increase activity and self care as tolerated Outcome: Progressing Note: Evaluation of progress towards goal: Patient activity level will improve over stay Problem: Moderate - High Risk Fall Score Description: Long Fall Score of =/> 25 or indicated by [facility] Assessment Goal: Patient should be free from fall Description: Interventions: 1. [place] to environment 2. Hourly rounds addressing the 4 P's (Pain, Positioning, Possessions, Potty) 3. Clear area of hazards (spills, clutter, electrical cords, unnecessary equipment) 4. Place equipment (bed & TV controls, call light, phone, urinal) within reach 5. Encourage patient to wear glasses and hearing aides as appropriate 6. Maintain bed in lowest position 7. Lock wheels on bed/wheelchair 8. Provide adequate lighting, including night light 9. Assess need for additional bedding, food/fluids, pain med's prior to sleep/routinely 10. Provide gripper slippers or personal non-skid footwear 11. Teach patient and patient junior sales representative to maintain environment for safety and engage in all aspects of fall prevention program 12. Remind patient to call for help before getting out of bed 13. Initiate bed/chair/exit alarms supportive devices as appropriate, (chair wedge, no-skid floor mat, raised edge mattress, hip protectors) 14. Locate patient bed assignment for optimal visualization 15. Evaluate and identify Safe Patient Handling Equipment needs 16. Provide supervision when out of bed or chair 17. Utilize gait belt as needed to assist with ambulation 18. Place adaptive equipment (cane, walker) within reach 19. Request patient junior sales representative bring adaptive equipment/mobility aids from home or obtain and provide as needed 20. Consult pharmacy regarding effects of med's affecting mobility, cognition, and alternatives 21. Obtain physician order for PT if risk factors associated with mobility are present 22. Obtain physician order for OT as appropriate 23. Utilize diversional activities 24. Educate patient and patient junior sales representative how to maintain a safe environment during visitationtimes (notify nurse prior to leaving bedside) 25. Consider appropriateness of medical or non-medical surgical tech 26. Set up voiding schedule as appropriate (every 2 hours) Outcome: Progressing Note: Evaluation of progress towards goal: Patient will have fall risk precautions in place Problem: Multi-Drug Resistant Organism / Rule-Out Infection Prevention Goal: Prevent transmission of infection Description: INTERVENTIONS 1. Place patient in private room or in room with patient with same disease 2. Discard single-use items 3. Clean reusable equipment between patients 4. Wear gloves for direct and indirect contact with patient or contaminants 5. Change gloves between tasks and procedures 6. Wash hands before and after caring for each patient 7. Wear appropriate personal protective equipment in relation to the indicated isolation type 8. Place appropriate isolation signage on patient's door 9. Provide patient/ patient junior sales representative with isolation education. Outcome: Progressing Note: Patient infection control precautions in place Problem: Safety - Medical Restraint Goal: Remains free of injury from restraints (Restraint for Interference with Radio Script Writer) Description: INTERVENTIONS: 1. Determine that other, less restrictive measures have been tried or would not be effective beforeapplying the restraint 2. Evaluate the patient's condition at the time of restraint application 3. Inform patient/family regarding the reason for restraint 4. Q2H: Monitor safety, Vital signs, psychosocial status, signs of injury, skin integrity, circulation, neurovascular status in affected extremities, respiratory status, comfort, nutrition and hydration, hygiene, ROM, elimination needs 5. Doctor will be notified of restraint 6. RN properly applies restraints per physician order Outcome: Progressing Note: Patient will be free from restraints Goal: Free from restraint(s) (Restraint for Interference with Radio Script Writer) Description: INTERVENTIONS: 1. Hourly rounds addressing the 4 P's (Pain, Positioning, Possessions, Potty) 2. Order is valid for the duration of the episode of care 3. Discontinue at the earliest possible time once the reason for restraints no longer exists 4. Identify and implement measures to help patient regain control 5. Food, fluids, and toilet offered at a minimum of every 2 hours 6. RN modifies the patient's plan of care by entering a problem statement related to safety; individualizes the safety outcome Outcome: Progressing * Discharge Planning Note - Viridiana Negrete - 06/21/2025 4:45 PM EDT DISCHARGE PLANNING NOTE Prior auth submitted to: [employer] Via: Juan On behalf of : [facility] (P# ; F# ) * Discharge Planning Note - Chloe Denis - 06/21/2025 1:42 PM EDT DISCHARGE PLANNING NOTE Referrals sent to [facility] (P# ; F# ), [facility] (P# ; F# ) and to [facility] unit for our records P# ; F# ). E-mail sent to [facility] Post[facility] Patient Access team (#[facility] - [facility] Admits for [facility], regarding acceptance. * Discharge Planning Note - YUMIKO Plasencia - 06/21/2025 1:09 PM EDT Ongoing Assessment for Discharge Needs Reviewed discharge milestones and patient needs related to discharge plan. Current estimated discharge date of Jun 23, 2025 has been reviewed by treatment team. Ongoing Assessment for Discharge Needs Flowsheet Row Most Recent Value Referral To Community Referrals / Resources Provided Denies needs Services Requested Patient expects to be discharged to: SNF Does the patient wish to have family/friend/caregiver involved in their discharge planning? Yes Does the patient plan to return home to a community setting? No, patient to discharge to facility-based provider. See Discharge Disposition Discharge Disposition SNF [facility] SN[facility] SNF Accepted? Yes Does the patient need discharge transportation arranged? Yes Mobility issues discussed with transportation provider No Patient choice offered Yes List Provided Yes [facility] List Provided Nursing Home Facility Discussed patient today during rounds. Plan- SNF. Spoke with patient's to get more SNF choices. Tasked [facility] to send referrals. Barriers- dopplers, acceptance, auth. - YUMIKO PLASENCIA 06/21/25 1:10 PM Spoke with patient's to update her that [facility] is able to accept. She is in agreement. Tasked [facility] to start auth. - YUMIKO PLASENCIA 06/21/25 3:58 PM * PT/OT/BLOCK HACKER - Irinajung López CCC-BLOCK HACKER - 06/21/2025 1:07 PM EDT Speech Therapy BLOCK HACKER Type of Visit: Medical deferral Reasons for Medical Deferral: Surgery/procedure/other testing Pt off the floor/ * Plan of Care - Fátima Alvarez RN - 06/20/2025 11:20 PM EDT Problem: Pain Goal: Patient goal is pain score less than 4, able to rest, and participant in treatment plan as appropriate Description: INTERVENTIONS: 1. Encourage patient or legal junior sales representative to report early pain and ask for pain medicine when needed 2. Assess pain using appropriate pain scale and include the scale used when documenting 3. Administer analgesics based on type and severity of pain and evaluate response within appropriate time frame 4. Implement non-pharmacological measures as appropriate and evaluate response 5. Consider cultural and social influences on pain and pain management 6. Notify LIP if interventions ineffective or patient reports new pain 7. Monitor vital signs including pulse ox, end-tidal CO2 based on pain intervention 8. Reassess pain per policy 9. Teach patient or legal junior sales representative interventions for comforting Outcome: Progressing Note: Pain controlled with current PRN regimen. Will continue to assess during hourly rounding. Problem: Safety Goal: Patient will be injury free during hospitalization Description: INTERVENTIONS: 1. Assess patient's risk for falls and implement fall prevention plan of care per policy 2. Provide and maintain a safe environment 3. Proper use of double Identifiers 4. Medication administration using the 5 rights 5. Hand hygiene 6. Specimens are labeled at the bedside 7. Instruct patient/ patient junior sales representative about use of safety devices 8. Include patient/ patient junior sales representative in decisions related to safety Outcome: Progressing Note: Patient educated on safety precautions, remains safe at this time. Problem: Infection Goal: Absence of infection during hospitalization Description: INTERVENTIONS 1. Assess and monitor for signs and symptoms of infection. 2. Monitor lab/diagnostic results. 3. Monitor all insertion sites i.e., indwelling lines, tubes and drains. 4. Monitor endotracheal (as able) and nasal secretions for changes in amount and color. 5. Administer medications as ordered. 6. Instruct and encourage patient and family to use good hand hygiene technique. 7. Identify and instruct patient/patient junior sales representative in use of appropriate isolation precautionsfor identified infection/symptoms. 8. Provide and discuss with patient/patient junior sales representative on educational MDRO sheet. 9. Encourage and monitor nutritional status daily and consult cleaner window if indicated. 10. Implement neutropenic guidelines as needed. Outcome: Progressing Note: Evaluation of progress towards goal: Patient verbalized understanding proper handwashing as being the first line of infection prevention.Will continue to assess for S/S of infection. Problem: Discharge Planning Goal: Discharge to post-acute care, other facility, or home with appropriate resources Description: Patient's goal is: INTERVENTIONS 1. Conduct assessment to determine patient/family and health care team treatment goals, and need for post-acute services based on payer coverage, community resources, and patient preferences, and barriers to discharge 2. Coordinate with Social work, Care Navigation, and Utilization Review to arrange appropriate level of services according to patient's needs based on patient preference and payer coverage in collaboration with the physician and health care team 3. Address psychosocial, clinical, and financial barriers to discharge as identified in assessment in conjunction with the patient/family and health care team 4. Consult appropriate ancillary services (i.e.. PT/OT/ST, etc) as needed 5. Communicate with and update the patient/family, physician, and health care team regarding progress on the discharge plan 6. Identify discharge learning needs (meds, wound care, etc). 7. Arrange for needed discharge transportation as appropriate Outcome: Progressing Note: Evaluation of progress towards goal: Discharge goals discussed and set. Problem: Potential for Compromised Skin Integrity Goal: Skin integrity is maintained or improved Description: Patient's goal is: INTERVENTIONS 1. Perform initial skin assessment on admission and as needed 2. Turn patient every 2 hours and PRN 3. Relieve pressure to bony prominences 4. Avoid shearing 5. Keep skin clean and dry 6. Alternate a full bath with partial baths for elderly 7. Apply lotion/moisturizer on skin 8. Monitor patient's hygiene practices 9. Float heels 10. Collaborate with interdisciplinary team and initiate plans and interventions as needed Outcome: Progressing Note: Evaluation of progress towards goal: Perineal skin integrity maintained. Perineal skin cleaned, and dried. Problem: Moderate - High Risk Fall Score Description: Long Fall Score of =/> 25 or indicated by [facility] Assessment Goal: Patient should be free from fall Description: Interventions: 1. [place] to environment 2. Hourly rounds addressing the 4 P's (Pain, Positioning, Possessions, Potty) 3. Clear area of hazards (spills, clutter, electrical cords, unnecessary equipment) 4. Place equipment (bed & TV controls, call light, phone, urinal) within reach 5. Encourage patient to wear glasses and hearing aides as appropriate 6. Maintain bed in lowest position 7. Lock wheels on bed/wheelchair 8. Provide adequate lighting, including night light 9. Assess need for additional bedding, food/fluids, pain med's prior to sleep/routinely 10. Provide gripper slippers or personal non-skid footwear 11. Teach patient and patient junior sales representative to maintain environment for safety and engage in all aspects of fall prevention program 12. Remind patient to call for help before getting out of bed 13. Initiate bed/chair/exit alarms supportive devices as appropriate, (chair wedge, no-skid floor mat, raised edge mattress, hip protectors) 14. Locate patient bed assignment for optimal visualization 15. Evaluate and identify Safe Patient Handling Equipment needs 16. Provide supervision when out of bed or chair 17. Utilize gait belt as needed to assist with ambulation 18. Place adaptive equipment (cane, walker) within reach 19. Request patient junior sales representative bring adaptive equipment/mobility aids from home or obtain and provide as needed 20. Consult pharmacy regarding effects of med's affecting mobility, cognition, and alternatives 21. Obtain physician order for PT if risk factors associated with mobility are present 22. Obtain physician order for OT as appropriate 23. Utilize diversional activities 24. Educate patient and patient junior sales representative how to maintain a safe environment during visitationtimes (notify nurse prior to leaving bedside) 25. Consider appropriateness of medical or non-medical surgical tech 26. Set up voiding schedule as appropriate (every 2 hours) Outcome: Progressing Note: Evaluation of progress towards goal: Patient educated on proper use of call light before getting up. Fall precautions including bed alarm are on at this time. * Discharge Planning Note - Cheryl Craig - 06/20/2025 2:08 PM EDT DISCHARGE PLANNING NOTE Updates sent to [facility], [facility] (P# ; F# ) [facility] in [place], [place] (P# ; F# ) * Discharge Planning Note - YUMIKO Plasencia - 06/20/2025 11:14 AM EDT Ongoing Assessment for Discharge Needs Reviewed discharge milestones and patient needs related to discharge plan. Current estimated discharge date of Jun 23, 2025 has been reviewed by treatment team. Ongoing Assessment for Discharge Needs Flowsheet Row Most Recent Value Referral To Community Referrals / Resources Provided Denies needs Services Requested Patient expects to be discharged to: SNF Does the patient wish to have family/friend/caregiver involved in their discharge planning? Yes Does the patient plan to return home to a community setting? No, patient to discharge to facility-based provider. See Discharge Disposition Discharge Disposition SNF [facility] SNF Accepted? Yes Does the patient need discharge transportation arranged? Yes Mobility issues discussed with transportation provider No Patient choice offered Yes List Provided Yes [facility] List Provided Nursing Home Facility Discussed patient today during rounds. Plan- SNF. Barriers- restraints removed today at 9:45 am perfloor nurse, bed availability, auth, BRANDON, IVF, mayo. - YUMIKO PLASENCIA 06/20/25 11:15 AM Called admissions at both [facility] and [facility] and asked them to call this movie writer if they can accept patient or not. Left callback #. - YUMIKO PLASENCIA 06/20/25 11:28 AM Tasked [facility] to send updated notes to reviewing SNFs. - YUMIKO PLASENCIA 06/20/25 1:16 PM * PT/OT/BLOCK HACKER - Danny Herrera, BARROW WORKER HELPER - 06/20/2025 9:32 AM EDT Physical Therapy Treatment Discharge Recommendations for Safe Patient Transition PT Discharge Disposition Recommendation: Post acute - moderate PT Post Acute Moderate Rehab Needs: Recommend moderate intensity rehab, Tolerate 1-2 hrs of therapy3-5 days/wk, Subacute or chronic functional impairment 6 Clicks: Basic Mobility Turning from your back to your side while in a flat bed without using bed rails?: A lot Moving from lying on your back to sitting on side of flat bed without using bed rails?: A lot Moving to and from bed to a chair (including w/c)?: A lot Standing up from a chair using your arms (e.g. w/c or bedside chair)?: A lot To walk in hospital room?: A lot Climbing 3-5 steps with a railing?: Total Scoring 6 Clicks: Basic Mobility Raw Score: 11 CMS G Code Modifier: CL Assessment Patient Assessment Patient Response to Treatment: Slow progress, decreased activity tolerance Visit RN Communication: Yes Medical Record Reviewed: Yes PT Type of Visit: Treatment Precautions Activity: ok for therapy per RN Laura Equipment: rolling walker, gait belt, Mayo catheter, IV, restraints at this time due to pulling onlines Telemetry/Refractory Specialist: Yes Oxygen Used: room air Other: high fall risk, confusion Pain Assessment Pain Assessment: No/denies pain 06/20/25 0913 LE Seated LE seated exercises performed? Yes Ankle pumps x Long arc quads x Seated marching x Other AAROM BLE Repetitions 15x Bed Mobility Supine to Sit: Total assist Sit to Supine: Max assist Other: pt found and left supine in bed with bilat restraints in place, Transfers Other: unable to attempt this AM. Gait Other: NT Balance Sitting Balance: Static: Poor Sitting Balance: Dynamic: Poor Other: pt sat EOB for approx. 20 minutes to improve balance and tolerace, pt pushing back throughout sitting Activity Tolerance Endurance: Tolerates 30 minutes activity with rest breaks Other: minimal participation. Plan Physical Therapy Care Plan Physical Therapy Care Plan (Active) Template: PT - Physical Therapy Problem: Activity Tolerance Dates: Start: 06/07/25 Disciplines: PT Goal: Tolerate 30 minutes of activity WITH rest breaks Dates: Start: 06/07/25 Expected End: 06/30/25 Description: Goal Description: For seated and standing activities for improved mobility Disciplines: PT Outcomes Date/Time User Outcome 06/20/25 0917 Danny Herrera BARROW WORKER HELPER Progressing 06/18/25 1034 Bautista Doyle, BARROW WORKER HELPER Progressing 06/14/25 1025 Danny Herrera, BARROW WORKER HELPER Progressing 06/12/25 1451 Danny Herrera, BARROW WORKER HELPER Progressing 06/09/25 1445 [facility], BARROW WORKER HELPER Progressing Goal Note filed on 06/20/25 0917 by Danny Herrera PTA Evaluation of progress towards goal: Problem: Bed Mobility Dates: Start: 06/07/25 Disciplines: PT Goal: Patient will perform bed mobility with Minimum Assist Dates: Start: 06/07/25 Expected End: 06/30/25 Description: Goal Description: Disciplines: PT Outcomes Date/Time User Outcome 06/20/25 0917 Danny Herrera, BARROW WORKER HELPER Progressing 06/18/25 1034 Bautista Doyle, BARROW WORKER HELPER Progressing 06/14/25 1025 Danny Herrera, BARROW WORKER HELPER Progressing 06/09/25 1445 [facility], BARROW WORKER HELPER Progressing Goal Note filed on 06/20/25 0917 by Danny Herrera PTA Evaluation of progress towards goal: Problem: Gait Dates: Start: 06/07/25 Disciplines: PT Goal: Patient will perform gait with Minimum Assist Dates: Start: 06/07/25 Expected End: 06/30/25 Description: 100 feet with RW support for safe mobility Goal Description: Disciplines: PT Outcomes Date/Time User Outcome 06/18/25 1034 Bautista Doyle, BARROW WORKER HELPER Progressing 06/14/25 1025 Danny Herrera, BARROW WORKER HELPER Progressing 06/12/25 1451 Danny Herrera, BARROW WORKER HELPER Progressing 06/09/25 1445 [facility], BARROW WORKER HELPER Progressing Goal Note filed on 06/14/25 1025 by Danny Herrera PTA Evaluation of progress towards goal: Problem: Sitting Balance Dates: Start: 06/07/25 Disciplines: PT Goal: Improve balance to good Dates: Start: 06/07/25 Expected End: 06/30/25 Description: Static Dynamic for safe ADLs and transfers Disciplines: PT Outcomes Date/Time User Outcome 06/20/25 0917 Danny Herrera, BARROW WORKER HELPER Progressing 06/18/25 1034 Bautista Doyle, BARROW WORKER HELPER Progressing 06/14/25 1025 Danny Herrera, BARROW WORKER HELPER Progressing 06/12/25 1451 Danny Herrera PTA Progressing 06/09/25 1445 Stan Graham PTA Progressing Goal Note filed on 06/20/25 0917 by Danny Herrera PTA Evaluation of progress towards goal: Problem: Standing Balance Dates: Start: 06/07/25 Disciplines: PT Goal: Improve balance to fair Dates: Start: 06/07/25 Expected End: 06/30/25 Description: Static Dynamic with walker support for safe mobility, decreased fall risk Disciplines: PT Outcomes Date/Time User Outcome 06/18/25 1034 Bautista Doyle, BARROW WORKER HELPER Progressing 06/14/25 1025 Danny Herrera, BARROW WORKER HELPER Progressing 06/12/25 1451 Danny Herrera BARROW WORKER HELPER Progressing 06/09/25 1445 Stan Graham, BARROW WORKER HELPER Progressing Goal Note filed on 06/14/25 1025 by Danny Herrera PTA Evaluation of progress towards goal: Problem: Transfers Dates: Start: 06/07/25 Disciplines: PT Goal: Patient will perform transfers with Minimum Assist Dates: Start: 06/07/25 Expected End: 06/30/25 Description: Goal Description: with RW support Disciplines: PT Outcomes Date/Time User Outcome 06/18/25 1034 Bautista Doyle, BARROW WORKER HELPER Progressing 06/14/25 1025 Danny Herrera, VERN Progressing 06/12/25 1451 Danny Herrera PTA Progressing 06/09/25 1445 Stan Graham, BARROW WORKER HELPER Progressing Goal Note filed on 06/14/25 1025 by Danny Herrera PTA Evaluation of progress towards goal: Physical Therapy Care Plan (Resolved) There are no resolved problems. Principal Problem: ICH (intracerebral hemorrhage) ([facility]) Cosigned by Yelitza Jauregui PT at 06/20/2025 11:27 AM EDT Associated attestation - Yelitza Jauregui PT - 06/20/2025 11:27 AM EDT I have reviewed and agree with this note and education documentation for this visit. * PT/OT/BLOCK HACKER - BATOOL Brown/Brendon - 06/20/2025 9:29 AM EDT Occupational Therapy Treatment Discharge Recommendations for Safe Patient Transition OT Discharge Disposition Recommendation: Post acute - moderate OT Post Acute Moderate Rehab Needs: Recommend moderate intensity rehab, Tolerate 1-2 hrs of therapy3-5 days/wk, Subacute or chronic functional impairment 6 Clicks: Daily Activity Putting on and taking off regular lower body clothing?: Total Bathing (including washing, rinsing, drying)?: A lot Toileting, which includes using toilet, bedpan or urinal?: Total Putting on and taking off regular upper body clothing?: A lot Taking care of personal grooming such as brushing teeth?: A lot Eating meals?: A little Scoring Daily Activity Raw Score: 11 CMS G Code Modifier: CL Therapy Plan Need for skilled Occupational Therapy to address deficits in ADL independence and functional mobility due to a status decline resulting from 06/20/25 0844 UE ROM UE ROM exercises performed? Yes Shoulder flexion/extension x Shoulder horizontal abduction/adduction x Elbow flexion/extension x Repetitions 15 reps w/bilat UE; required tactile cuing; pt demo'd difficulty tending to task and ptfalling asleep during tx OT Treatment/Interventions: ADL retraining, Functional transfer training, UE strengthening/ROM, Endurance training, Cognitive reorientation, Patient/family training, Equipment eval/education, Balance, Compensatory technique education, Functional activities OT Frequency: 4-5days/week Assessment Patient Assessment Patient Response to Treatment: No functional improvements Visit RN Communication: Yes Medical Record Reviewed: Yes OT Type of Visit: Treatment Precautions Activity: ok for therapy per GEOFF Sanchez Equipment: mayo, IV and bed alarm Telemetry/Refractory Specialist: Yes Oxygen Used: room air Other: high fall risk, seizure precautions, confusion Pain Assessment Pain Assessment: No/denies pain ADL / IADL Hand Dominance: Right Where Assessed: Edge of bed Grooming Assistance: (when movie writer placed wash cloth in front of pt to offer to wash face with, pt leaned forward and placed face in movie writer's hand and shook head side to side while grumbling to wash face) Footwear Assistance: Total assist (to don socks) Hearing / Speech / Vision Hearing: Within Functional Limits Speech: Garbled, Expressive aphasia, Receptive aphasia Cognition Arousal/Alertness: Lethargic (falls asleep sporadically throughout tx, usually able to easily wake pt up enough to engage briefly) Attention Span: Difficulty attending to directions Following Commands: Follows one step commands with increased time, Follows one step commands with repetition Bed Mobility Supine to Sit: Total assist Sit to Supine: Max assist Other: pt in bed after tx w/call light within reach, bed alarm on and wrist restraints on Transfers Other: not safe to attempt this date as pt keeps falling asleep and unable to maintain sitting balance Balance Sitting Balance: Static: Poor Sitting Balance: Dynamic: Poor Other: sat at EOB about 20mins to increase endruance and partcipation; demo'd heavy posterior push Activity Tolerance Endurance: Tolerates 30 minutes activity with rest breaks Plan Occupational Therapy Care Plan Occupational Therapy Care Plan (Active) Template: OT - Occupational Therapy Problem: Activity Tolerance Dates: Start: 06/07/25 Disciplines: OT Goal: Tolerate 30 minutes of activity WITH rest breaks Dates: Start: 06/07/25 Expected End: 07/08/25 Description: Goal Description: Disciplines: OT Outcomes Date/Time User Outcome 06/20/25 0928 Sue Yousif-Arwls, TECHNICAL SUPPORT COORDINATOR/L Not Progressing 06/18/25 1040 Sue Yousif-Rawls, BATOOL/L Progressing 06/14/25 1035 Sue Yousif-Rawls, BATOOL/L Progressing 06/12/25 1458 Phyllis Stinger, SAMUEL/L Progressing 06/09/25 1503 Sue Yousif-Rawls, BATOOL/L Progressing Problem: Bathing LB Dates: Start: 06/07/25 Disciplines: OT Goal: Patient will perform bathing LB with Minimum Assist Dates: Start: 06/07/25 Expected End: 07/08/25 Description: Goal Description: Disciplines: OT Problem: Bathing UB Dates: Start: 06/07/25 Disciplines: OT Goal: Patient will perform bathing UB with Set-Up Dates: Start: 06/07/25 Expected End: 07/08/25 Description: Goal Description: Disciplines: OT Problem: Bed Mobility Dates: Start: 06/07/25 Disciplines: OT Goal: Patient will perform bed mobility with Contact Guard Dates: Start: 06/07/25 Expected End: 07/08/25 Description: Goal Description: Disciplines: OT Outcomes Date/Time User Outcome 06/20/25 0928 Sue Yousif-Rawls, BATOOL/L Not Progressing 06/18/25 1040 Sue Yousif-Rawls, TECHNICAL SUPPORT COORDINATOR/L Not Progressing 06/14/25 1035 Sue Yousif-Rawls, TECHNICAL SUPPORT COORDINATOR/L Progressing 06/09/25 1503 Sue Yousif-Rawls, TECHNICAL SUPPORT COORDINATOR/L Progressing Problem: Cognition Dates: Start: 06/07/25 Disciplines: OT Goal: Improve cognition Dates: Start: 06/07/25 Expected End: 07/08/25 Description: Follow one step commands 100% of the time Disciplines: OT Outcomes Date/Time User Outcome 06/20/25 0928 Sue Yousif-Rawls, BATOOL/L Not Progressing 06/18/25 1040 Sue Yousif-Rawls, TECHNICAL SUPPORT COORDINATOR/L Not Progressing 06/14/25 1035 Sue Yousif-Rawls, TECHNICAL SUPPORT COORDINATOR/L Not Progressing 06/12/25 1458 Phyllis Kunz, SAMUEL/L Progressing 06/09/25 1503 Sue Yousif-Rawls, TECHNICAL SUPPORT COORDINATOR/L Progressing Problem: Dressing LB Dates: Start: 06/07/25 Disciplines: OT Goal: Patient will perform dressing LB with Minimum Assist Dates: Start: 06/07/25 Expected End: 07/08/25 Description: Goal Description: Disciplines: OT Outcomes Date/Time User Outcome 06/20/25 0928 Sue Yousif-Rawls, BATOOL/L Not Progressing Problem: Dressing UB Dates: Start: 06/07/25 Disciplines: OT Goal: Patient will perform dressing UB with Set-Up Dates: Start: 06/07/25 Expected End: 07/08/25 Description: Goal Description: Disciplines: OT Problem: Functional Mobility Dates: Start: 06/07/25 Disciplines: OT Goal: Patient will perform functional mobility with Minimum Assist Dates: Start: 06/07/25 Expected End: 07/08/25 Description: Goal Description: Disciplines: OT Outcomes Date/Time User Outcome 06/18/25 1040 Sue Yousif-Rawls, BATOOL/L Not Progressing 06/14/25 1035 Sue Yousif-Rawls, BATOOL/L Progressing 06/12/25 1458 Phyllis Kunz, SAMUEL/L Progressing 06/09/25 1503 Sue Yousif-Rawls, BATOOL/L Progressing Problem: Grooming Dates: Start: 06/07/25 Disciplines: OT Goal: Patient will perform grooming with Minimum Assist Dates: Start: 06/07/25 Expected End: 07/08/25 Description: Goal Description: Disciplines: OT Outcomes Date/Time User Outcome 06/20/25 0928 Sue Yousif-Rawls, TECHNICAL SUPPORT COORDINATOR/L Not Progressing 06/12/25 1458 Phyllis Kunz, SAMUEL/L Progressing 06/09/25 1503 Sue Yousif-Rawls, TECHNICAL SUPPORT COORDINATOR/L Progressing Problem: Home Management Dates: Start: 06/07/25 Disciplines: OT Goal: Patient will perform home management with Minimum Assist Dates: Start: 06/07/25 Expected End: 07/08/25 Description: Goal Description: Disciplines: OT Problem: Sitting Balance Dates: Start: 06/07/25 Disciplines: OT Goal: Improve balance to good Dates: Start: 06/07/25 Expected End: 07/08/25 Description: Good dynamic balance, Disciplines: OT Outcomes Date/Time User Outcome 06/20/25 0928 Sue Yousif-Rawls, TECHNICAL SUPPORT COORDINATOR/L Not Progressing 06/18/25 1040 Sue Yousif-Rawls, BATOOL/L Progressing 06/14/25 1035 Sue Yousif-Rawls, BATOOL/L Progressing 06/12/25 1458 Phyllis Kunz, SAMUEL/L Progressing 06/09/25 1503 Sue Yousif-Rawls, BATOOL/L Progressing Problem: Standing Balance Dates: Start: 06/07/25 Disciplines: OT Goal: Improve balance to good Dates: Start: 06/07/25 Expected End: 07/08/25 Description: Good dynamic balance. Disciplines: OT Outcomes Date/Time User Outcome 06/18/25 1040 Sue Yousif-Rawls, BATOOL/L Progressing 06/14/25 1035 Sue Yousif-Rawls, TECHNICAL SUPPORT COORDINATOR/L Progressing 06/12/25 1458 Phyllis Kunz, SAMUEL/L Progressing 06/09/25 1503 Sue Yousif-Rawls, BATOOL/L Progressing Problem: Strength Dates: Start: 06/07/25 Disciplines: OT Goal: Improve strength Dates: Start: 06/07/25 Expected End: 07/08/25 Description: Improve bilateral upper extremity strength to be able to complete full ADL tasks without rest breaks. Disciplines: OT Outcomes Date/Time User Outcome 06/20/25 0928 Sue Yousif-Rawls, TECHNICAL SUPPORT COORDINATOR/L Not Progressing 06/18/25 1040 Sue Yousif-Rawls, BATOOL/L Progressing 06/14/25 1035 Sue Yousif-Rawls, BATOOL/L Progressing 06/14/25 1033 Sue Yousif-Rawls, BATOOL/L Progressing 06/12/25 1458 Phyllis Kunz, SAMUEL/L Progressing 06/09/25 1503 Sue Yousif-Rawls, TECHNICAL SUPPORT COORDINATOR/L Progressing Problem: Toilet Transfers Dates: Start: 06/07/25 Disciplines: OT Goal: Patient will perform toilet transfers with Minimum Assist Dates: Start: 06/07/25 Expected End: 07/08/25 Description: Goal Description: Disciplines: OT Problem: Toileting Dates: Start: 06/07/25 Disciplines: OT Goal: Patient will perform toileting with Minimum Assist Dates: Start: 06/07/25 Expected End: 07/08/25 Description: Goal Description: Disciplines: OT Outcomes Date/Time User Outcome 06/18/25 1040 Sue Yousif-Rawls, BATOOL/L Not Progressing 06/09/25 1503 Sue Yousif-Rawls, TECHNICAL SUPPORT COORDINATOR/L Not Progressing Problem: Transfers Dates: Start: 06/07/25 Disciplines: OT Goal: Patient will perform transfers with Contact Guard Dates: Start: 06/07/25 Expected End: 07/08/25 Description: Goal Description: Disciplines: OT Outcomes Date/Time User Outcome 06/18/25 1040 Sue Yousif-Rawls, BATOOL/L Progressing 06/14/25 1035 Sue Yousif-Rawls, BATOOL/L Progressing 06/12/25 1458 Phyllis Kunz, SAMUEL/L Progressing 06/09/25 1503 Sue Yousif-Rawls, BATOOL/L Progressing Occupational Therapy Care Plan (Resolved) There are no resolved problems. Principal Problem: ICH (intracerebral hemorrhage) ([facility] Cosigned by STEPH Gant/L at 06/20/2025 11:32 AM EDT Associated attestation - Dixon Murphy OTR/L - 06/20/2025 11:32 AM EDT I have reviewed and agree with this note and education documentation for this visit. * Plan of Care - Laura Jeff RN - 06/20/2025 8:38 AM EDT Problem: Pain Goal: Patient goal is pain score less than 4, able to rest, and participant in treatment plan as appropriate Description: INTERVENTIONS: 1. Encourage patient or legal junior sales representative to report early pain and ask for pain medicine when needed 2. Assess pain using appropriate pain scale and include the scale used when documenting 3. Administer analgesics based on type and severity of pain and evaluate response within appropriate time frame 4. Implement non-pharmacological measures as appropriate and evaluate response 5. Consider cultural and social influences on pain and pain management 6. Notify LIP if interventions ineffective or patient reports new pain 7. Monitor vital signs including pulse ox, end-tidal CO2 based on pain intervention 8. Reassess pain per policy 9. Teach patient or legal junior sales representative interventions for comforting Outcome: Progressing Note: Evaluation of progress towards goal: assess Problem: Safety Goal: Patient will be injury free during hospitalization Description: INTERVENTIONS: 1. Assess patient's risk for falls and implement fall prevention plan of care per policy 2. Provide and maintain a safe environment 3. Proper use of double Identifiers 4. Medication administration using the 5 rights 5. Hand hygiene 6. Specimens are labeled at the bedside 7. Instruct patient/ patient junior sales representative about use of safety devices 8. Include patient/ patient junior sales representative in decisions related to safety Outcome: Progressing Note: Evaluation of progress towards goal: assess, restraints on, will assess Problem: Infection Goal: Absence of infection during hospitalization Description: INTERVENTIONS 1. Assess and monitor for signs and symptoms of infection. 2. Monitor lab/diagnostic results. 3. Monitor all insertion sites i.e., indwelling lines, tubes and drains. 4. Monitor endotracheal (as able) and nasal secretions for changes in amount and color. 5. Administer medications as ordered. 6. Instruct and encourage patient and family to use good hand hygiene technique. 7. Identify and instruct patient/patient junior sales representative in use of appropriate isolation precautionsfor identified infection/symptoms. 8. Provide and discuss with patient/patient junior sales representative on educational MDRO sheet. 9. Encourage and monitor nutritional status daily and consult cleaner window if indicated. 10. Implement neutropenic guidelines as needed. Outcome: Progressing Note: Evaluation of progress towards goal: assess Problem: Knowledge Deficit Goal: Patient/patient junior sales representative demonstrates understanding of disease process, treatment plan,medications, and discharge instructions Description: INTERVENTIONS 1. Complete learning assessment and assess knowledge base 2. Provide teaching at level of understanding 3. Provide teaching via preferred learning method(s) Outcome: Progressing Note: Evaluation of progress towards goal: assess Problem: Discharge Planning Goal: Discharge to post-acute care, other facility, or home with appropriate resources Description: Patient's goal is: INTERVENTIONS 1. Conduct assessment to determine patient/family and health care team treatment goals, and need for post-acute services based on payer coverage, community resources, and patient preferences, and barriers to discharge 2. Coordinate with Social work, Care Navigation, and Utilization Review to arrange appropriate level of services according to patient's needs based on patient preference and payer coverage in collaboration with the physician and health care team 3. Address psychosocial, clinical, and financial barriers to discharge as identified in assessment in conjunction with the patient/family and health care team 4. Consult appropriate ancillary services (i.e.. PT/OT/ST, etc) as needed 5. Communicate with and update the patient/family, physician, and health care team regarding progress on the discharge plan 6. Identify discharge learning needs (meds, wound care, etc). 7. Arrange for needed discharge transportation as appropriate Outcome: Progressing Note: Evaluation of progress towards goal: assess Problem: Neurological Deficit Goal: Neurological status is stable or improving Description: Patient's goal is: INTERVENTIONS 1. Complete Neurological assessment as indicated/ordered 2. Initiate measures to prevent increased intracranial pressure 3. Monitor and assess patient's level of consciousness, motor function, sensory function, and levelof assistance needed for ADLs 4. Monitor and report changes from baseline 5. Maintain blood pressure and fluid volume within ordered parameters to optimize cerebral perfusion and minimize risk of hemorrhage 6. Monitor labs and diagnostic tests 7. Administer anti-seizure medications as ordered 8. Maintain airway, patient safety and administer oxygen as ordered 9. Monitor patient for seizure activity, document and report duration and description of seizure toLIP 10. If seizure occurs, turn patient to side and suction secretions as needed 11. Reorient patient post seizure 12. Seizure pads on all 4 side rails 13. Instruct patient/family to notify RN of any seizure activity 14. Instruct patient/family to call for assistance with activity based on assessment 15. Utilize bleeding precautions if thrombolytic given Outcome: Progressing Note: Evaluation of progress towards goal: assess Problem: Activity Intolerance/Impaired Mobility Goal: Mobility/activity is maintained at optimum level for patient Description: Patient's goal is: INTERVENTIONS 1. Assess and monitor patient barriers to mobility and need for assistive/adaptive devices 2. Assess patient's emotional response to limitations 3. Collaborate with interdisciplinary teams and initiate plans and interventions as ordered 4. Encourage independent activity per tolerance 5. Maintain proper body alignment 6. Perform active/passive ROM as tolerated/ordered 7. Coordinate activities to conserve energy 8. Reposition patient 9. Ensure adequate rest/sleep time Outcome: Progressing Note: Evaluation of progress towards goal: assess Problem: Communication Impairment Goal: Ability to express needs and understand communication Description: INTERVENTIONS 1. Assess patient's communication skills and ability to understand information 2. Provide alternate method of communication if needed i.e. ipad, sign board, pen/paper 3. Collaborate with Speech Therapy to develop effective communication strategies 4. Include patient/patient junior sales representative in decisions related to communication Outcome: Progressing Note: Evaluation of progress towards goal: assess Problem: Potential for Aspiration Goal: Patient's risk of aspiration is minimized Description: INTERVENTIONS 1. Assess and monitor vital signs, respiratory status, and labs (WBC) 2. Monitor for signs of aspiration (tachypnea, cough, rales, wheezing, cyanosis, fever) 3. Assess and monitor patient's ability to swallow 4. Place patient up in chair to eat if possible 5. Elevate head of bed 90 degrees to eat if unable to get patient up into chair 6. Supervise patient during oral intake 7. Instruct patient to take small bites 8. Instruct patient to take small single sips when taking liquids 9. Follow patient-specific strategies generated by speech pathologist 10. Complete bedside swallow screen if appropriate and take actions as indicated. 11. Administer prescribed medications and monitor effects Outcome: Progressing Note: Evaluation of progress towards goal: assess Problem: Anxiety Goal: Anxiety is at manageable level Description: Patient's goal is: INTERVENTIONS 1. Assess and monitor patient's anxiety level 2. Monitor for signs and symptoms of anxiety both physical and emotional (heart palpitations, chestpain, shortness of breath, headaches, nausea, feeling jumpy, restlessness, irritable, apprehensive) 3. Reorient/orient patient to unit/surroundings 4. Explain treatment plan 5. Explain tests/procedures prior to initiation 6. Encourage participation in care 7. Encourage verbalization of concerns/fears 8. Assess coping mechanisms 9. Assist in developing anxiety-reducing skills 10. Administer complimentary therapies 11. Manage patient's environment 12. Limit or eliminate stimulants such as caffeine and nicotine 13. Collaborate with ancillary departments 14. Include patient/patient junior sales representative in decisions related to anxiety Outcome: Progressing Note: Evaluation of progress towards goal: assess Problem: Potential for Compromised Skin Integrity Goal: Skin integrity is maintained or improved Description: Patient's goal is: INTERVENTIONS 1. Perform initial skin assessment on admission and as needed 2. Turn patient every 2 hours and PRN 3. Relieve pressure to bony prominences 4. Avoid shearing 5. Keep skin clean and dry 6. Alternate a full bath with partial baths for elderly 7. Apply lotion/moisturizer on skin 8. Monitor patient's hygiene practices 9. Float heels 10. Collaborate with interdisciplinary team and initiate plans and interventions as needed Outcome: Progressing Note: Evaluation of progress towards goal: assess Goal: Patient's nutritional intake is adequate Description: Patient's goal is: INTERVENTIONS 1. Assess and monitor food intake and supplements, patient food preferences, nausea, vomiting, labs, oral cavity (gums, teeth, tongue, mucosa), proper denture fit, and cultural beliefs 2. Monitor for signs of hypoglycemia and hyperglycemia 3. Collaborate with interdisciplinary team and initiate plan and interventions as ordered 4. Monitor patient's weight 5. Assist patient with meals/food selection 6. Assist patient with eating 7. Allow adequate time for meals 8. Provide pleasant environment during mealtime 9. Increase social contact during mealtimes 10. Plan activities to conserve energy 11. Encourage/perform oral hygiene as appropriate 12. Encourage patient to take dietary supplement as ordered 13. Collaborate with clinical cleaner window 14. Include patient/ patient's junior sales representative in decisions related to nutrition Outcome: Progressing Note: Evaluation of progress towards goal: feed assist Problem: Self Care Deficit Goal: Return ADL status to a safe level of function Description: Patient's goal is: INTERVENTIONS 1. Administer medication as ordered 2. Assess ADL deficits and provide assistive devices as needed 3. Obtain PT/OT consults as needed 4. Assist and instruct patient to increase activity and self care as tolerated Outcome: Progressing Note: Evaluation of progress towards goal: assess Problem: Moderate - High Risk Fall Score Description: Long Fall Score of =/> 25 or indicated by [facility] Assessment Goal: Patient should be free from fall Description: Interventions: 1. [place] to environment 2. Hourly rounds addressing the 4 P's (Pain, Positioning, Possessions, Potty) 3. Clear area of hazards (spills, clutter, electrical cords, unnecessary equipment) 4. Place equipment (bed & TV controls, call light, phone, urinal) within reach 5. Encourage patient to wear glasses and hearing aides as appropriate 6. Maintain bed in lowest position 7. Lock wheels on bed/wheelchair 8. Provide adequate lighting, including night light 9. Assess need for additional bedding, food/fluids, pain med's prior to sleep/routinely 10. Provide gripper slippers or personal non-skid footwear 11. Teach patient and patient junior sales representative to maintain environment for safety and engage in all aspects of fall prevention program 12. Remind patient to call for help before getting out of bed 13. Initiate bed/chair/exit alarms supportive devices as appropriate, (chair wedge, no-skid floor mat, raised edge mattress, hip protectors) 14. Locate patient bed assignment for optimal visualization 15. Evaluate and identify Safe Patient Handling Equipment needs 16. Provide supervision when out of bed or chair 17. Utilize gait belt as needed to assist with ambulation 18. Place adaptive equipment (cane, walker) within reach 19. Request patient junior sales representative bring adaptive equipment/mobility aids from home or obtain and provide as needed 20. Consult pharmacy regarding effects of med's affecting mobility, cognition, and alternatives 21. Obtain physician order for PT if risk factors associated with mobility are present 22. Obtain physician order for OT as appropriate 23. Utilize diversional activities 24. Educate patient and patient junior sales representative how to maintain a safe environment during visitationtimes (notify nurse prior to leaving bedside) 25. Consider appropriateness of medical or non-medical surgical tech 26. Set up voiding schedule as appropriate (every 2 hours) Outcome: Progressing Note: Evaluation of progress towards goal: assess, safety interventions maintained Problem: Multi-Drug Resistant Organism / Rule-Out Infection Prevention Goal: Prevent transmission of infection Description: INTERVENTIONS 1. Place patient in private room or in room with patient with same disease 2. Discard single-use items 3. Clean reusable equipment between patients 4. Wear gloves for direct and indirect contact with patient or contaminants 5. Change gloves between tasks and procedures 6. Wash hands before and after caring for each patient 7. Wear appropriate personal protective equipment in relation to the indicated isolation type 8. Place appropriate isolation signage on patient's door 9. Provide patient/ patient junior sales representative with isolation education. Outcome: Progressing Note: Evaluation of progress towards goal: assess Problem: Safety - Medical Restraint Goal: Remains free of injury from restraints (Restraint for Interference with Radio Script Writer) Description: INTERVENTIONS: 1. Determine that other, less restrictive measures have been tried or would not be effective beforeapplying the restraint 2. Evaluate the patient's condition at the time of restraint application 3. Inform patient/family regarding the reason for restraint 4. Q2H: Monitor safety, Vital signs, psychosocial status, signs of injury, skin integrity, circulation, neurovascular status in affected extremities, respiratory status, comfort, nutrition and hydration, hygiene, ROM, elimination needs 5. Doctor will be notified of restraint 6. RN properly applies restraints per physician order Outcome: Progressing Note: Evaluation of progress towards goal: safety interventions maintained per policy, restraints maintained for safety purposes. Will monitor Goal: Free from restraint(s) (Restraint for Interference with Radio Script Writer) Description: INTERVENTIONS: 1. Hourly rounds addressing the 4 P's (Pain, Positioning, Possessions, Potty) 2. Order is valid for the duration of the episode of care 3. Discontinue at the earliest possible time once the reason for restraints no longer exists 4. Identify and implement measures to help patient regain control 5. Food, fluids, and toilet offered at a minimum of every 2 hours 6. RN modifies the patient's plan of care by entering a problem statement related to safety; individualizes the safety outcome Outcome: Progressing Note: Evaluation of progress towards goal: assess, restraints maintained * Plan of Care - Fátima Alvarez RN - 06/19/2025 11:24 PM EDT Problem: Pain Goal: Patient goal is pain score less than 4, able to rest, and participant in treatment plan as appropriate Description: INTERVENTIONS: 1. Encourage patient or legal junior sales representative to report early pain and ask for pain medicine when needed 2. Assess pain using appropriate pain scale and include the scale used when documenting 3. Administer analgesics based on type and severity of pain and evaluate response within appropriate time frame 4. Implement non-pharmacological measures as appropriate and evaluate response 5. Consider cultural and social influences on pain and pain management 6. Notify LIP if interventions ineffective or patient reports new pain 7. Monitor vital signs including pulse ox, end-tidal CO2 based on pain intervention 8. Reassess pain per policy 9. Teach patient or legal junior sales representative interventions for comforting Outcome: Progressing Note: Evaluation of progress towards goal: Assess pain using appropriate pain scale and include thescale used when documenting Problem: Safety Goal: Patient will be injury free during hospitalization Description: INTERVENTIONS: 1. Assess patient's risk for falls and implement fall prevention plan of care per policy 2. Provide and maintain a safe environment 3. Proper use of double Identifiers 4. Medication administration using the 5 rights 5. Hand hygiene 6. Specimens are labeled at the bedside 7. Instruct patient/ patient junior sales representative about use of safety devices 8. Include patient/ patient junior sales representative in decisions related to safety Outcome: Progressing Note: Evaluation of progress towards goal: Assess patient's risk for falls and implement fall prevention plan of care per policy Problem: Infection Goal: Absence of infection during hospitalization Description: INTERVENTIONS 1. Assess and monitor for signs and symptoms of infection. 2. Monitor lab/diagnostic results. 3. Monitor all insertion sites i.e., indwelling lines, tubes and drains. 4. Monitor endotracheal (as able) and nasal secretions for changes in amount and color. 5. Administer medications as ordered. 6. Instruct and encourage patient and family to use good hand hygiene technique. 7. Identify and instruct patient/patient junior sales representative in use of appropriate isolation precautionsfor identified infection/symptoms. 8. Provide and discuss with patient/patient junior sales representative on educational MDRO sheet. 9. Encourage and monitor nutritional status daily and consult cleaner window if indicated. 10. Implement neutropenic guidelines as needed. Outcome: Progressing Note: Evaluation of progress towards goal: Assess and monitor for signs and symptoms of infection. Problem: Knowledge Deficit Goal: Patient/patient junior sales representative demonstrates understanding of disease process, treatment plan,medications, and discharge instructions Description: INTERVENTIONS 1. Complete learning assessment and assess knowledge base 2. Provide teaching at level of understanding 3. Provide teaching via preferred learning method(s) Outcome: Progressing Note: Evaluation of progress towards goal: Provide teaching at level of understanding Problem: Discharge Planning Goal: Discharge to post-acute care, other facility, or home with appropriate resources Description: Patient's goal is: INTERVENTIONS 1. Conduct assessment to determine patient/family and health care team treatment goals, and need for post-acute services based on payer coverage, community resources, and patient preferences, and barriers to discharge 2. Coordinate with Social work, Care Navigation, and Utilization Review to arrange appropriate level of services according to patient's needs based on patient preference and payer coverage in collaboration with the physician and health care team 3. Address psychosocial, clinical, and financial barriers to discharge as identified in assessment in conjunction with the patient/family and health care team 4. Consult appropriate ancillary services (i.e.. PT/OT/ST, etc) as needed 5. Communicate with and update the patient/family, physician, and health care team regarding progress on the discharge plan 6. Identify discharge learning needs (meds, wound care, etc). 7. Arrange for needed discharge transportation as appropriate Outcome: Progressing Note: Evaluation of progress towards goal: Identify discharge learning needs (meds, wound care, etc). Problem: Neurological Deficit Goal: Neurological status is stable or improving Description: Patient's goal is: INTERVENTIONS 1. Complete Neurological assessment as indicated/ordered 2. Initiate measures to prevent increased intracranial pressure 3. Monitor and assess patient's level of consciousness, motor function, sensory function, and levelof assistance needed for ADLs 4. Monitor and report changes from baseline 5. Maintain blood pressure and fluid volume within ordered parameters to optimize cerebral perfusion and minimize risk of hemorrhage 6. Monitor labs and diagnostic tests 7. Administer anti-seizure medications as ordered 8. Maintain airway, patient safety and administer oxygen as ordered 9. Monitor patient for seizure activity, document and report duration and description of seizure toLIP 10. If seizure occurs, turn patient to side and suction secretions as needed 11. Reorient patient post seizure 12. Seizure pads on all 4 side rails 13. Instruct patient/family to notify RN of any seizure activity 14. Instruct patient/family to call for assistance with activity based on assessment 15. Utilize bleeding precautions if thrombolytic given Outcome: Progressing Note: Evaluation of progress towards goal: Complete Neurological assessment as indicated/ordered Problem: Activity Intolerance/Impaired Mobility Goal: Mobility/activity is maintained at optimum level for patient Description: Patient's goal is: INTERVENTIONS 1. Assess and monitor patient barriers to mobility and need for assistive/adaptive devices 2. Assess patient's emotional response to limitations 3. Collaborate with interdisciplinary teams and initiate plans and interventions as ordered 4. Encourage independent activity per tolerance 5. Maintain proper body alignment 6. Perform active/passive ROM as tolerated/ordered 7. Coordinate activities to conserve energy 8. Reposition patient 9. Ensure adequate rest/sleep time Outcome: Progressing Note: Evaluation of progress towards goal: Assess patient's emotional response to limitations Problem: Communication Impairment Goal: Ability to express needs and understand communication Description: INTERVENTIONS 1. Assess patient's communication skills and ability to understand information 2. Provide alternate method of communication if needed i.e. ipad, sign board, pen/paper 3. Collaborate with Speech Therapy to develop effective communication strategies 4. Include patient/patient junior sales representative in decisions related to communication Outcome: Progressing Note: Evaluation of progress towards goal: Collaborate with Speech Therapy to develop effective communication strategies Problem: Potential for Aspiration Goal: Patient's risk of aspiration is minimized Description: INTERVENTIONS 1. Assess and monitor vital signs, respiratory status, and labs (WBC) 2. Monitor for signs of aspiration (tachypnea, cough, rales, wheezing, cyanosis, fever) 3. Assess and monitor patient's ability to swallow 4. Place patient up in chair to eat if possible 5. Elevate head of bed 90 degrees to eat if unable to get patient up into chair 6. Supervise patient during oral intake 7. Instruct patient to take small bites 8. Instruct patient to take small single sips when taking liquids 9. Follow patient-specific strategies generated by speech pathologist 10. Complete bedside swallow screen if appropriate and take actions as indicated. 11. Administer prescribed medications and monitor effects Outcome: Progressing Note: Evaluation of progress towards goal: Monitor for signs of aspiration (tachypnea, cough, rales, wheezing, cyanosis, fever) Problem: Anxiety Goal: Anxiety is at manageable level Description: Patient's goal is: INTERVENTIONS 1. Assess and monitor patient's anxiety level 2. Monitor for signs and symptoms of anxiety both physical and emotional (heart palpitations, chestpain, shortness of breath, headaches, nausea, feeling jumpy, restlessness, irritable, apprehensive) 3. Reorient/orient patient to unit/surroundings 4. Explain treatment plan 5. Explain tests/procedures prior to initiation 6. Encourage participation in care 7. Encourage verbalization of concerns/fears 8. Assess coping mechanisms 9. Assist in developing anxiety-reducing skills 10. Administer complimentary therapies 11. Manage patient's environment 12. Limit or eliminate stimulants such as caffeine and nicotine 13. Collaborate with ancillary departments 14. Include patient/patient junior sales representative in decisions related to anxiety Outcome: Progressing Note: Evaluation of progress towards goal: Assess and monitor patient's anxiety level Problem: Potential for Compromised Skin Integrity Goal: Skin integrity is maintained or improved Description: Patient's goal is: INTERVENTIONS 1. Perform initial skin assessment on admission and as needed 2. Turn patient every 2 hours and PRN 3. Relieve pressure to bony prominences 4. Avoid shearing 5. Keep skin clean and dry 6. Alternate a full bath with partial baths for elderly 7. Apply lotion/moisturizer on skin 8. Monitor patient's hygiene practices 9. Float heels 10. Collaborate with interdisciplinary team and initiate plans and interventions as needed Outcome: Progressing Note: Evaluation of progress towards goal: Relieve pressure to bony prominences Goal: Patient's nutritional intake is adequate Description: Patient's goal is: INTERVENTIONS 1. Assess and monitor food intake and supplements, patient food preferences, nausea, vomiting, labs, oral cavity (gums, teeth, tongue, mucosa), proper denture fit, and cultural beliefs 2. Monitor for signs of hypoglycemia and hyperglycemia 3. Collaborate with interdisciplinary team and initiate plan and interventions as ordered 4. Monitor patient's weight 5. Assist patient with meals/food selection 6. Assist patient with eating 7. Allow adequate time for meals 8. Provide pleasant environment during mealtime 9. Increase social contact during mealtimes 10. Plan activities to conserve energy 11. Encourage/perform oral hygiene as appropriate 12. Encourage patient to take dietary supplement as ordered 13. Collaborate with clinical cleaner window 14. Include patient/ patient's junior sales representative in decisions related to nutrition Outcome: Progressing Note: Evaluation of progress towards goal: Perform initial skin assessment on admission and as needed Problem: Potential for Inadequate Tissue Perfusion - Venous Goal: Tissue perfusion is adequate - venous Description: Patient's goal is: INTERVENTIONS 1. Assess and monitor skin color and temperature, skin integrity, pulses, capillary refill, edema, pain in extremities and Homans' sign 2. Monitor for signs and symptoms (dyspnea, tachypnea, and tachycardia) 3. Encourage ambulation/activity per patient's tolerance and physician order 4. Elevate feet when in chair 5. Encourage patient to do ankle pump exercises 6. Apply anti-embolism stockings/devices as ordered Outcome: Progressing Note: Evaluation of progress towards goal: Elevate feet when in chair Problem: Self Care Deficit Goal: Return ADL status to a safe level of function Description: Patient's goal is: INTERVENTIONS 1. Administer medication as ordered 2. Assess ADL deficits and provide assistive devices as needed 3. Obtain PT/OT consults as needed 4. Assist and instruct patient to increase activity and self care as tolerated Outcome: Progressing Note: Evaluation of progress towards goal: Assess ADL deficits and provide assistive devices as needed Problem: Moderate - High Risk Fall Score Description: Long Fall Score of =/> 25 or indicated by [facility] Assessment Goal: Patient should be free from fall Description: Interventions: 1. [place] to environment 2. Hourly rounds addressing the 4 P's (Pain, Positioning, Possessions, Potty) 3. Clear area of hazards (spills, clutter, electrical cords, unnecessary equipment) 4. Place equipment (bed & TV controls, call light, phone, urinal) within reach 5. Encourage patient to wear glasses and hearing aides as appropriate 6. Maintain bed in lowest position 7. Lock wheels on bed/wheelchair 8. Provide adequate lighting, including night light 9. Assess need for additional bedding, food/fluids, pain med's prior to sleep/routinely 10. Provide gripper slippers or personal non-skid footwear 11. Teach patient and patient junior sales representative to maintain environment for safety and engage in all aspects of fall prevention program 12. Remind patient to call for help before getting out of bed 13. Initiate bed/chair/exit alarms supportive devices as appropriate, (chair wedge, no-skid floor mat, raised edge mattress, hip protectors) 14. Locate patient bed assignment for optimal visualization 15. Evaluate and identify Safe Patient Handling Equipment needs 16. Provide supervision when out of bed or chair 17. Utilize gait belt as needed to assist with ambulation 18. Place adaptive equipment (cane, walker) within reach 19. Request patient junior sales representative bring adaptive equipment/mobility aids from home or obtain and provide as needed 20. Consult pharmacy regarding effects of med's affecting mobility, cognition, and alternatives 21. Obtain physician order for PT if risk factors associated with mobility are present 22. Obtain physician order for OT as appropriate 23. Utilize diversional activities 24. Educate patient and patient junior sales representative how to maintain a safe environment during visitationtimes (notify nurse prior to leaving bedside) 25. Consider appropriateness of medical or non-medical surgical tech 26. Set up voiding schedule as appropriate (every 2 hours) Outcome: Progressing Note: Evaluation of progress towards goal: Hourly rounds addressing the 4 P's (Pain, Positioning, Possessions, Potty) Problem: Safety - Medical Restraint Goal: Remains free of injury from restraints (Restraint for Interference with Radio Script Writer) Description: INTERVENTIONS: 1. Determine that other, less restrictive measures have been tried or would not be effective beforeapplying the restraint 2. Evaluate the patient's condition at the time of restraint application 3. Inform patient/family regarding the reason for restraint 4. Q2H: Monitor safety, Vital signs, psychosocial status, signs of injury, skin integrity, circulation, neurovascular status in affected extremities, respiratory status, comfort, nutrition and hydration, hygiene, ROM, elimination needs 5. Doctor will be notified of restraint 6. RN properly applies restraints per physician order Outcome: Progressing Note: Evaluation of progress towards goal: Hourly rounds addressing the 4 P's (Pain, Positioning, Possessions, Potty) Goal: Free from restraint(s) (Restraint for Interference with Radio Script Writer) Description: INTERVENTIONS: 1. Hourly rounds addressing the 4 P's (Pain, Positioning, Possessions, Potty) 2. Order is valid for the duration of the episode of care 3. Discontinue at the earliest possible time once the reason for restraints no longer exists 4. Identify and implement measures to help patient regain control 5. Food, fluids, and toilet offered at a minimum of every 2 hours 6. RN modifies the patient's plan of care by entering a problem statement related to safety; individualizes the safety outcome Outcome: Progressing Note: Evaluation of progress towards goal: Hourly rounds addressing the 4 P's (Pain, Positioning, Possessions, Potty) Problem: Multi-Drug Resistant Organism / Rule-Out Infection Prevention Goal: Prevent transmission of infection Description: INTERVENTIONS 1. Place patient in private room or in room with patient with same disease 2. Discard single-use items 3. Clean reusable equipment between patients 4. Wear gloves for direct and indirect contact with patient or contaminants 5. Change gloves between tasks and procedures 6. Wash hands before and after caring for each patient 7. Wear appropriate personal protective equipment in relation to the indicated isolation type 8. Place appropriate isolation signage on patient's door 9. Provide patient/ patient junior sales representative with isolation education. Outcome: Progressing Note: Evaluation of progress towards goal: Wear gloves for direct and indirect contact with patientor contaminants * Discharge Planning Note - YUMIKO Plasencia - 06/19/2025 10:04 AM EDT Ongoing Assessment for Discharge Needs Reviewed discharge milestones and patient needs related to discharge plan. Current estimated discharge date of Jun 22, 2025 has been reviewed by treatment team. Ongoing Assessment for Discharge Needs Flowsheet Row Most Recent Value Referral To Community Referrals / Resources Provided Denies needs Services Requested Patient expects to be discharged to: SNF Does the patient wish to have family/friend/caregiver involved in their discharge planning? Yes Does the patient plan to return home to a community setting? No, patient to discharge to facility-based provider. See Discharge Disposition Discharge Disposition [facility] Accepted? Yes Does the patient need discharge transportation arranged? Yes Mobility issues discussed with transportation provider No Patient choice offered Yes List Provided Yes [facility] List Provided Nursing Home Facility Discussed patient today during rounds. Plan- [place] accepting. Barriers- restraints, stent today, [facility], IVF, auth. - YUMIKO PLASENCIA 06/19/25 10:04 AM * Plan of Care - Laura Jeff RN - 06/19/2025 8:36 AM EDT Problem: Pain Goal: Patient goal is pain score less than 4, able to rest, and participant in treatment plan as appropriate Description: INTERVENTIONS: 1. Encourage patient or legal junior sales representative to report early pain and ask for pain medicine when needed 2. Assess pain using appropriate pain scale and include the scale used when documenting 3. Administer analgesics based on type and severity of pain and evaluate response within appropriate time frame 4. Implement non-pharmacological measures as appropriate and evaluate response 5. Consider cultural and social influences on pain and pain management 6. Notify LIP if interventions ineffective or patient reports new pain 7. Monitor vital signs including pulse ox, end-tidal CO2 based on pain intervention 8. Reassess pain per policy 9. Teach patient or legal junior sales representative interventions for comforting Outcome: Progressing Note: Evaluation of progress towards goal: assess Problem: Safety Goal: Patient will be injury free during hospitalization Description: INTERVENTIONS: 1. Assess patient's risk for falls and implement fall prevention plan of care per policy 2. Provide and maintain a safe environment 3. Proper use of double Identifiers 4. Medication administration using the 5 rights 5. Hand hygiene 6. Specimens are labeled at the bedside 7. Instruct patient/ patient junior sales representative about use of safety devices 8. Include patient/ patient junior sales representative in decisions related to safety Outcome: Progressing Note: Evaluation of progress towards goal: restraint maintained per safety reasons, safety interventions maintained per protocol Problem: Infection Goal: Absence of infection during hospitalization Description: INTERVENTIONS 1. Assess and monitor for signs and symptoms of infection. 2. Monitor lab/diagnostic results. 3. Monitor all insertion sites i.e., indwelling lines, tubes and drains. 4. Monitor endotracheal (as able) and nasal secretions for changes in amount and color. 5. Administer medications as ordered. 6. Instruct and encourage patient and family to use good hand hygiene technique. 7. Identify and instruct patient/patient junior sales representative in use of appropriate isolation precautionsfor identified infection/symptoms. 8. Provide and discuss with patient/patient junior sales representative on educational MDRO sheet. 9. Encourage and monitor nutritional status daily and consult cleaner window if indicated. 10. Implement neutropenic guidelines as needed. Outcome: Progressing Note: Evaluation of progress towards goal: assess Problem: Knowledge Deficit Goal: Patient/patient junior sales representative demonstrates understanding of disease process, treatment plan,medications, and discharge instructions Description: INTERVENTIONS 1. Complete learning assessment and assess knowledge base 2. Provide teaching at level of understanding 3. Provide teaching via preferred learning method(s) Outcome: Progressing Note: Evaluation of progress towards goal: assess Problem: Discharge Planning Goal: Discharge to post-acute care, other facility, or home with appropriate resources Description: Patient's goal is: INTERVENTIONS 1. Conduct assessment to determine patient/family and health care team treatment goals, and need for post-acute services based on payer coverage, community resources, and patient preferences, and barriers to discharge 2. Coordinate with Social work, Care Navigation, and Utilization Review to arrange appropriate level of services according to patient's needs based on patient preference and payer coverage in collaboration with the physician and health care team 3. Address psychosocial, clinical, and financial barriers to discharge as identified in assessment in conjunction with the patient/family and health care team 4. Consult appropriate ancillary services (i.e.. PT/OT/ST, etc) as needed 5. Communicate with and update the patient/family, physician, and health care team regarding progress on the discharge plan 6. Identify discharge learning needs (meds, wound care, etc). 7. Arrange for needed discharge transportation as appropriate Outcome: Progressing Note: Evaluation of progress towards goal: assess Problem: Neurological Deficit Goal: Neurological status is stable or improving Description: Patient's goal is: INTERVENTIONS 1. Complete Neurological assessment as indicated/ordered 2. Initiate measures to prevent increased intracranial pressure 3. Monitor and assess patient's level of consciousness, motor function, sensory function, and levelof assistance needed for ADLs 4. Monitor and report changes from baseline 5. Maintain blood pressure and fluid volume within ordered parameters to optimize cerebral perfusion and minimize risk of hemorrhage 6. Monitor labs and diagnostic tests 7. Administer anti-seizure medications as ordered 8. Maintain airway, patient safety and administer oxygen as ordered 9. Monitor patient for seizure activity, document and report duration and description of seizure toLIP 10. If seizure occurs, turn patient to side and suction secretions as needed 11. Reorient patient post seizure 12. Seizure pads on all 4 side rails 13. Instruct patient/family to notify RN of any seizure activity 14. Instruct patient/family to call for assistance with activity based on assessment 15. Utilize bleeding precautions if thrombolytic given Outcome: Progressing Note: Evaluation of progress towards goal: assess Problem: Activity Intolerance/Impaired Mobility Goal: Mobility/activity is maintained at optimum level for patient Description: Patient's goal is: INTERVENTIONS 1. Assess and monitor patient barriers to mobility and need for assistive/adaptive devices 2. Assess patient's emotional response to limitations 3. Collaborate with interdisciplinary teams and initiate plans and interventions as ordered 4. Encourage independent activity per tolerance 5. Maintain proper body alignment 6. Perform active/passive ROM as tolerated/ordered 7. Coordinate activities to conserve energy 8. Reposition patient 9. Ensure adequate rest/sleep time Outcome: Progressing Note: Evaluation of progress towards goal: assess Problem: Communication Impairment Goal: Ability to express needs and understand communication Description: INTERVENTIONS 1. Assess patient's communication skills and ability to understand information 2. Provide alternate method of communication if needed i.e. ipad, sign board, pen/paper 3. Collaborate with Speech Therapy to develop effective communication strategies 4. Include patient/patient junior sales representative in decisions related to communication Outcome: Progressing Note: Evaluation of progress towards goal: assess Problem: Potential for Aspiration Goal: Patient's risk of aspiration is minimized Description: INTERVENTIONS 1. Assess and monitor vital signs, respiratory status, and labs (WBC) 2. Monitor for signs of aspiration (tachypnea, cough, rales, wheezing, cyanosis, fever) 3. Assess and monitor patient's ability to swallow 4. Place patient up in chair to eat if possible 5. Elevate head of bed 90 degrees to eat if unable to get patient up into chair 6. Supervise patient during oral intake 7. Instruct patient to take small bites 8. Instruct patient to take small single sips when taking liquids 9. Follow patient-specific strategies generated by speech pathologist 10. Complete bedside swallow screen if appropriate and take actions as indicated. 11. Administer prescribed medications and monitor effects Outcome: Progressing Note: Evaluation of progress towards goal: assess Problem: Anxiety Goal: Anxiety is at manageable level Description: Patient's goal is: INTERVENTIONS 1. Assess and monitor patient's anxiety level 2. Monitor for signs and symptoms of anxiety both physical and emotional (heart palpitations, chestpain, shortness of breath, headaches, nausea, feeling jumpy, restlessness, irritable, apprehensive) 3. Reorient/orient patient to unit/surroundings 4. Explain treatment plan 5. Explain tests/procedures prior to initiation 6. Encourage participation in care 7. Encourage verbalization of concerns/fears 8. Assess coping mechanisms 9. Assist in developing anxiety-reducing skills 10. Administer complimentary therapies 11. Manage patient's environment 12. Limit or eliminate stimulants such as caffeine and nicotine 13. Collaborate with ancillary departments 14. Include patient/patient junior sales representative in decisions related to anxiety Outcome: Progressing Note: Evaluation of progress towards goal: assess Problem: Potential for Compromised Skin Integrity Goal: Skin integrity is maintained or improved Description: Patient's goal is: INTERVENTIONS 1. Perform initial skin assessment on admission and as needed 2. Turn patient every 2 hours and PRN 3. Relieve pressure to bony prominences 4. Avoid shearing 5. Keep skin clean and dry 6. Alternate a full bath with partial baths for elderly 7. Apply lotion/moisturizer on skin 8. Monitor patient's hygiene practices 9. Float heels 10. Collaborate with interdisciplinary team and initiate plans and interventions as needed Outcome: Progressing Note: Evaluation of progress towards goal: assess Goal: Patient's nutritional intake is adequate Description: Patient's goal is: INTERVENTIONS 1. Assess and monitor food intake and supplements, patient food preferences, nausea, vomiting, labs, oral cavity (gums, teeth, tongue, mucosa), proper denture fit, and cultural beliefs 2. Monitor for signs of hypoglycemia and hyperglycemia 3. Collaborate with interdisciplinary team and initiate plan and interventions as ordered 4. Monitor patient's weight 5. Assist patient with meals/food selection 6. Assist patient with eating 7. Allow adequate time for meals 8. Provide pleasant environment during mealtime 9. Increase social contact during mealtimes 10. Plan activities to conserve energy 11. Encourage/perform oral hygiene as appropriate 12. Encourage patient to take dietary supplement as ordered 13. Collaborate with clinical cleaner window 14. Include patient/ patient's junior sales representative in decisions related to nutrition Outcome: Progressing Note: Evaluation of progress towards goal: assess, assist with feeds Problem: Self Care Deficit Goal: Return ADL status to a safe level of function Description: Patient's goal is: INTERVENTIONS 1. Administer medication as ordered 2. Assess ADL deficits and provide assistive devices as needed 3. Obtain PT/OT consults as needed 4. Assist and instruct patient to increase activity and self care as tolerated Outcome: Progressing Note: Evaluation of progress towards goal: total care for adls Problem: Moderate - High Risk Fall Score Description: Long Fall Score of =/> 25 or indicated by [facility] Assessment Goal: Patient should be free from fall Description: Interventions: 1. [place] to environment 2. Hourly rounds addressing the 4 P's (Pain, Positioning, Possessions, Potty) 3. Clear area of hazards (spills, clutter, electrical cords, unnecessary equipment) 4. Place equipment (bed & TV controls, call light, phone, urinal) within reach 5. Encourage patient to wear glasses and hearing aides as appropriate 6. Maintain bed in lowest position 7. Lock wheels on bed/wheelchair 8. Provide adequate lighting, including night light 9. Assess need for additional bedding, food/fluids, pain med's prior to sleep/routinely 10. Provide gripper slippers or personal non-skid footwear 11. Teach patient and patient junior sales representative to maintain environment for safety and engage in all aspects of fall prevention program 12. Remind patient to call for help before getting out of bed 13. Initiate bed/chair/exit alarms supportive devices as appropriate, (chair wedge, no-skid floor mat, raised edge mattress, hip protectors) 14. Locate patient bed assignment for optimal visualization 15. Evaluate and identify Safe Patient Handling Equipment needs 16. Provide supervision when out of bed or chair 17. Utilize gait belt as needed to assist with ambulation 18. Place adaptive equipment (cane, walker) within reach 19. Request patient junior sales representative bring adaptive equipment/mobility aids from home or obtain and provide as needed 20. Consult pharmacy regarding effects of med's affecting mobility, cognition, and alternatives 21. Obtain physician order for PT if risk factors associated with mobility are present 22. Obtain physician order for OT as appropriate 23. Utilize diversional activities 24. Educate patient and patient junior sales representative how to maintain a safe environment during visitationtimes (notify nurse prior to leaving bedside) 25. Consider appropriateness of medical or non-medical surgical tech 26. Set up voiding schedule as appropriate (every 2 hours) Outcome: Progressing Note: Evaluation of progress towards goal: patient restrained for safety purposes, safety interventions maintained per policy Problem: Multi-Drug Resistant Organism / Rule-Out Infection Prevention Goal: Prevent transmission of infection Description: INTERVENTIONS 1. Place patient in private room or in room with patient with same disease 2. Discard single-use items 3. Clean reusable equipment between patients 4. Wear gloves for direct and indirect contact with patient or contaminants 5. Change gloves between tasks and procedures 6. Wash hands before and after caring for each patient 7. Wear appropriate personal protective equipment in relation to the indicated isolation type 8. Place appropriate isolation signage on patient's door 9. Provide patient/ patient junior sales representative with isolation education. Outcome: Progressing Note: Evaluation of progress towards goal: assess Problem: Safety - Medical Restraint Goal: Remains free of injury from restraints (Restraint for Interference with Radio Script Writer) Description: INTERVENTIONS: 1. Determine that other, less restrictive measures have been tried or would not be effective beforeapplying the restraint 2. Evaluate the patient's condition at the time of restraint application 3. Inform patient/family regarding the reason for restraint 4. Q2H: Monitor safety, Vital signs, psychosocial status, signs of injury, skin integrity, circulation, neurovascular status in affected extremities, respiratory status, comfort, nutrition and hydration, hygiene, ROM, elimination needs 5. Doctor will be notified of restraint 6. RN properly applies restraints per physician order Outcome: Progressing Note: Evaluation of progress towards goal: patient maintains safety with restraints Goal: Free from restraint(s) (Restraint for Interference with Radio Script Writer) Description: INTERVENTIONS: 1. Hourly rounds addressing the 4 P's (Pain, Positioning, Possessions, Potty) 2. Order is valid for the duration of the episode of care 3. Discontinue at the earliest possible time once the reason for restraints no longer exists 4. Identify and implement measures to help patient regain control 5. Food, fluids, and toilet offered at a minimum of every 2 hours 6. RN modifies the patient's plan of care by entering a problem statement related to safety; individualizes the safety outcome Outcome: Progressing Note: Evaluation of progress towards goal: patient required to maintained restraints at this time.,will reassess if applicable * Plan of Care - Fátima Alvarez RN - 06/19/2025 4:15 AM EDT Problem: Pain Goal: Patient goal is pain score less than 4, able to rest, and participant in treatment plan as appropriate Description: INTERVENTIONS: 1. Encourage patient or legal junior sales representative to report early pain and ask for pain medicine when needed 2. Assess pain using appropriate pain scale and include the scale used when documenting 3. Administer analgesics based on type and severity of pain and evaluate response within appropriate time frame 4. Implement non-pharmacological measures as appropriate and evaluate response 5. Consider cultural and social influences on pain and pain management 6. Notify LIP if interventions ineffective or patient reports new pain 7. Monitor vital signs including pulse ox, end-tidal CO2 based on pain intervention 8. Reassess pain per policy 9. Teach patient or legal junior sales representative interventions for comforting Outcome: Progressing Note: Evaluation of progress towards goal: assess Problem: Safety Goal: Patient will be injury free during hospitalization Description: INTERVENTIONS: 1. Assess patient's risk for falls and implement fall prevention plan of care per policy 2. Provide and maintain a safe environment 3. Proper use of double Identifiers 4. Medication administration using the 5 rights 5. Hand hygiene 6. Specimens are labeled at the bedside 7. Instruct patient/ patient junior sales representative about use of safety devices 8. Include patient/ patient junior sales representative in decisions related to safety Outcome: Progressing Note: Evaluation of progress towards goal: bilateral wrist restraints maintained for safety purposes, safety interventions maintained per policy Problem: Infection Goal: Absence of infection during hospitalization Description: INTERVENTIONS 1. Assess and monitor for signs and symptoms of infection. 2. Monitor lab/diagnostic results. 3. Monitor all insertion sites i.e., indwelling lines, tubes and drains. 4. Monitor endotracheal (as able) and nasal secretions for changes in amount and color. 5. Administer medications as ordered. 6. Instruct and encourage patient and family to use good hand hygiene technique. 7. Identify and instruct patient/patient junior sales representative in use of appropriate isolation precautionsfor identified infection/symptoms. 8. Provide and discuss with patient/patient junior sales representative on educational MDRO sheet. 9. Encourage and monitor nutritional status daily and consult cleaner window if indicated. 10. Implement neutropenic guidelines as needed. Outcome: Progressing Note: Evaluation of progress towards goal: assess Problem: Knowledge Deficit Goal: Patient/patient junior sales representative demonstrates understanding of disease process, treatment plan,medications, and discharge instructions Description: INTERVENTIONS 1. Complete learning assessment and assess knowledge base 2. Provide teaching at level of understanding 3. Provide teaching via preferred learning method(s) Outcome: Progressing Note: Evaluation of progress towards goal: assess Problem: Discharge Planning Goal: Discharge to post-acute care, other facility, or home with appropriate resources Description: Patient's goal is: INTERVENTIONS 1. Conduct assessment to determine patient/family and health care team treatment goals, and need for post-acute services based on payer coverage, community resources, and patient preferences, and barriers to discharge 2. Coordinate with Social work, Care Navigation, and Utilization Review to arrange appropriate level of services according to patient's needs based on patient preference and payer coverage in collaboration with the physician and health care team 3. Address psychosocial, clinical, and financial barriers to discharge as identified in assessment in conjunction with the patient/family and health care team 4. Consult appropriate ancillary services (i.e.. PT/OT/ST, etc) as needed 5. Communicate with and update the patient/family, physician, and health care team regarding progress on the discharge plan 6. Identify discharge learning needs (meds, wound care, etc). 7. Arrange for needed discharge transportation as appropriate Outcome: Progressing Note: Evaluation of progress towards goal: assess Problem: Neurological Deficit Goal: Neurological status is stable or improving Description: Patient's goal is: INTERVENTIONS 1. Complete Neurological assessment as indicated/ordered 2. Initiate measures to prevent increased intracranial pressure 3. Monitor and assess patient's level of consciousness, motor function, sensory function, and levelof assistance needed for ADLs 4. Monitor and report changes from baseline 5. Maintain blood pressure and fluid volume within ordered parameters to optimize cerebral perfusion and minimize risk of hemorrhage 6. Monitor labs and diagnostic tests 7. Administer anti-seizure medications as ordered 8. Maintain airway, patient safety and administer oxygen as ordered 9. Monitor patient for seizure activity, document and report duration and description of seizure toLIP 10. If seizure occurs, turn patient to side and suction secretions as needed 11. Reorient patient post seizure 12. Seizure pads on all 4 side rails 13. Instruct patient/family to notify RN of any seizure activity 14. Instruct patient/family to call for assistance with activity based on assessment 15. Utilize bleeding precautions if thrombolytic given Outcome: Progressing Note: Evaluation of progress towards goal: assess Problem: Activity Intolerance/Impaired Mobility Goal: Mobility/activity is maintained at optimum level for patient Description: Patient's goal is: INTERVENTIONS 1. Assess and monitor patient barriers to mobility and need for assistive/adaptive devices 2. Assess patient's emotional response to limitations 3. Collaborate with interdisciplinary teams and initiate plans and interventions as ordered 4. Encourage independent activity per tolerance 5. Maintain proper body alignment 6. Perform active/passive ROM as tolerated/ordered 7. Coordinate activities to conserve energy 8. Reposition patient 9. Ensure adequate rest/sleep time Outcome: Progressing Note: Evaluation of progress towards goal: assess Problem: Communication Impairment Goal: Ability to express needs and understand communication Description: INTERVENTIONS 1. Assess patient's communication skills and ability to understand information 2. Provide alternate method of communication if needed i.e. ipad, sign board, pen/paper 3. Collaborate with Speech Therapy to develop effective communication strategies 4. Include patient/patient junior sales representative in decisions related to communication Outcome: Progressing Note: Evaluation of progress towards goal: assess Problem: Potential for Aspiration Goal: Patient's risk of aspiration is minimized Description: INTERVENTIONS 1. Assess and monitor vital signs, respiratory status, and labs (WBC) 2. Monitor for signs of aspiration (tachypnea, cough, rales, wheezing, cyanosis, fever) 3. Assess and monitor patient's ability to swallow 4. Place patient up in chair to eat if possible 5. Elevate head of bed 90 degrees to eat if unable to get patient up into chair 6. Supervise patient during oral intake 7. Instruct patient to take small bites 8. Instruct patient to take small single sips when taking liquids 9. Follow patient-specific strategies generated by speech pathologist 10. Complete bedside swallow screen if appropriate and take actions as indicated. 11. Administer prescribed medications and monitor effects Outcome: Progressing Note: Evaluation of progress towards goal: assess, feed Problem: Anxiety Goal: Anxiety is at manageable level Description: Patient's goal is: INTERVENTIONS 1. Assess and monitor patient's anxiety level 2. Monitor for signs and symptoms of anxiety both physical and emotional (heart palpitations, chestpain, shortness of breath, headaches, nausea, feeling jumpy, restlessness, irritable, apprehensive) 3. Reorient/orient patient to unit/surroundings 4. Explain treatment plan 5. Explain tests/procedures prior to initiation 6. Encourage participation in care 7. Encourage verbalization of concerns/fears 8. Assess coping mechanisms 9. Assist in developing anxiety-reducing skills 10. Administer complimentary therapies 11. Manage patient's environment 12. Limit or eliminate stimulants such as caffeine and nicotine 13. Collaborate with ancillary departments 14. Include patient/patient junior sales representative in decisions related to anxiety Outcome: Progressing Note: Evaluation of progress towards goal: assess Problem: Potential for Compromised Skin Integrity Goal: Skin integrity is maintained or improved Description: Patient's goal is: INTERVENTIONS 1. Perform initial skin assessment on admission and as needed 2. Turn patient every 2 hours and PRN 3. Relieve pressure to bony prominences 4. Avoid shearing 5. Keep skin clean and dry 6. Alternate a full bath with partial baths for elderly 7. Apply lotion/moisturizer on skin 8. Monitor patient's hygiene practices 9. Float heels 10. Collaborate with interdisciplinary team and initiate plans and interventions as needed Outcome: Progressing Note: Evaluation of progress towards goal: assess Goal: Patient's nutritional intake is adequate Description: Patient's goal is: INTERVENTIONS 1. Assess and monitor food intake and supplements, patient food preferences, nausea, vomiting, labs, oral cavity (gums, teeth, tongue, mucosa), proper denture fit, and cultural beliefs 2. Monitor for signs of hypoglycemia and hyperglycemia 3. Collaborate with interdisciplinary team and initiate plan and interventions as ordered 4. Monitor patient's weight 5. Assist patient with meals/food selection 6. Assist patient with eating 7. Allow adequate time for meals 8. Provide pleasant environment during mealtime 9. Increase social contact during mealtimes 10. Plan activities to conserve energy 11. Encourage/perform oral hygiene as appropriate 12. Encourage patient to take dietary supplement as ordered 13. Collaborate with clinical cleaner window 14. Include patient/ patient's junior sales representative in decisions related to nutrition Outcome: Progressing Note: Evaluation of progress towards goal: assess, patient is a feed for assistance Problem: Self Care Deficit Goal: Return ADL status to a safe level of function Description: Patient's goal is: INTERVENTIONS 1. Administer medication as ordered 2. Assess ADL deficits and provide assistive devices as needed 3. Obtain PT/OT consults as needed 4. Assist and instruct patient to increase activity and self care as tolerated Outcome: Progressing Note: Evaluation of progress towards goal: assess Problem: Moderate - High Risk Fall Score Description: Long Fall Score of =/> 25 or indicated by [facility] Assessment Goal: Patient should be free from fall Description: Interventions: 1. [place] to environment 2. Hourly rounds addressing the 4 P's (Pain, Positioning, Possessions, Potty) 3. Clear area of hazards (spills, clutter, electrical cords, unnecessary equipment) 4. Place equipment (bed & TV controls, call light, phone, urinal) within reach 5. Encourage patient to wear glasses and hearing aides as appropriate 6. Maintain bed in lowest position 7. Lock wheels on bed/wheelchair 8. Provide adequate lighting, including night light 9. Assess need for additional bedding, food/fluids, pain med's prior to sleep/routinely 10. Provide gripper slippers or personal non-skid footwear 11. Teach patient and patient junior sales representative to maintain environment for safety and engage in all aspects of fall prevention program 12. Remind patient to call for help before getting out of bed 13. Initiate bed/chair/exit alarms supportive devices as appropriate, (chair wedge, no-skid floor mat, raised edge mattress, hip protectors) 14. Locate patient bed assignment for optimal visualization 15. Evaluate and identify Safe Patient Handling Equipment needs 16. Provide supervision when out of bed or chair 17. Utilize gait belt as needed to assist with ambulation 18. Place adaptive equipment (cane, walker) within reach 19. Request patient junior sales representative bring adaptive equipment/mobility aids from home or obtain and provide as needed 20. Consult pharmacy regarding effects of med's affecting mobility, cognition, and alternatives 21. Obtain physician order for PT if risk factors associated with mobility are present 22. Obtain physician order for OT as appropriate 23. Utilize diversional activities 24. Educate patient and patient junior sales representative how to maintain a safe environment during visitationtimes (notify nurse prior to leaving bedside) 25. Consider appropriateness of medical or non-medical surgical tech 26. Set up voiding schedule as appropriate (every 2 hours) Outcome: Progressing Note: Evaluation of progress towards goal: assess, restraints per policy, safety interventions maintained Problem: Multi-Drug Resistant Organism / Rule-Out Infection Prevention Goal: Prevent transmission of infection Description: INTERVENTIONS 1. Place patient in private room or in room with patient with same disease 2. Discard single-use items 3. Clean reusable equipment between patients 4. Wear gloves for direct and indirect contact with patient or contaminants 5. Change gloves between tasks and procedures 6. Wash hands before and after caring for each patient 7. Wear appropriate personal protective equipment in relation to the indicated isolation type 8. Place appropriate isolation signage on patient's door 9. Provide patient/ patient junior sales representative with isolation education. Outcome: Progressing Note: Evaluation of progress towards goal: assess Problem: Safety - Medical Restraint Goal: Remains free of injury from restraints (Restraint for Interference with Radio Script Writer) Description: INTERVENTIONS: 1. Determine that other, less restrictive measures have been tried or would not be effective beforeapplying the restraint 2. Evaluate the patient's condition at the time of restraint application 3. Inform patient/family regarding the reason for restraint 4. Q2H: Monitor safety, Vital signs, psychosocial status, signs of injury, skin integrity, circulation, neurovascular status in affected extremities, respiratory status, comfort, nutrition and hydration, hygiene, ROM, elimination needs 5. Doctor will be notified of restraint 6. RN properly applies restraints per physician order Outcome: Progressing Note: Evaluation of progress towards goal: restraints maintained Goal: Free from restraint(s) (Restraint for Interference with Radio Script Writer) Description: INTERVENTIONS: 1. Hourly rounds addressing the 4 P's (Pain, Positioning, Possessions, Potty) 2. Order is valid for the duration of the episode of care 3. Discontinue at the earliest possible time once the reason for restraints no longer exists 4. Identify and implement measures to help patient regain control 5. Food, fluids, and toilet offered at a minimum of every 2 hours 6. RN modifies the patient's plan of care by entering a problem statement related to safety; individualizes the safety outcome Outcome: Progressing Note: Evaluation of progress towards goal: restraints remained, assessed, safety interventions maintained * Discharge Planning Note - YUMIKO Plasencia - 06/18/2025 11:04 AM EDT Ongoing Assessment for Discharge Needs Reviewed discharge milestones and patient needs related to discharge plan. Current estimated discharge date of Jun 21, 2025 has been reviewed by treatment team. Ongoing Assessment for Discharge Needs Flowsheet Row Most Recent Value Referral To Community Referrals / Resources Provided Denies needs Services Requested Patient expects to be discharged to: SNF Does the patient wish to have family/friend/caregiver involved in their discharge planning? Yes Does the patient plan to return home to a community setting? No, patient to discharge to facility-based provider. See Discharge Disposition Discharge Disposition SNF SNF Name [facility] SNF Accepted? Yes Does the patient need discharge transportation arranged? Yes Mobility issues discussed with transportation provider No Patient choice offered Yes List Provided Yes [facility] List Provided Nursing Home Facility Discussed patient today during rounds. Plan- [facility] accepting and will have a bed for him on 06/20/25. Needs to be off restraints for 24 hours prior to d/c. Barriers- restraints, stent needed today, updated therapy notes for auth. - YUMIKO PLASENCIA 06/18/25 11:05 AM * PT/OT/BLOCK HACKER - MARU Brown - 06/18/2025 10:42 AM EDT Occupational Therapy Treatment Discharge Recommendations for Safe Patient Transition OT Discharge Disposition Recommendation: Post acute - moderate OT Post Acute Moderate Rehab Needs: Recommend moderate intensity rehab, Tolerate 1-2 hrs of therapy3-5 days/wk, Subacute or chronic functional impairment 6 Clicks: Daily Activity Putting on and taking off regular lower body clothing?: Total Bathing (including washing, rinsing, drying)?: A lot Toileting, which includes using toilet, bedpan or urinal?: Total Putting on and taking off regular upper body clothing?: A lot Taking care of personal grooming such as brushing teeth?: A lot Eating meals?: A little Scoring Daily Activity Raw Score: 11 CMS G Code Modifier: CL Therapy Plan Need for skilled Occupational Therapy to address deficits in ADL independence and functional mobility due to a status decline resulting from 06/18/25 0945 UE ROM UE ROM exercises performed? Yes Shoulder flexion/extension x Shoulder horizontal abduction/adduction x Elbow flexion/extension x Repetitions 15 reps w/bilat UE w/2lbs; required restbreaks;completed 1 UE at a time, increased weakness noted on L OT Treatment/Interventions: ADL retraining, Functional transfer training, UE strengthening/ROM, Endurance training, Cognitive reorientation, Patient/family training, Equipment eval/education, Balance, Compensatory technique education, Functional activities OT Frequency: 4-5days/week Assessment Patient Assessment Patient Response to Treatment: Slow progress, decreased activity tolerance, Slow progress, cognitive deficits, Slow progress, medical status limitations Visit RN Communication: Yes Medical Record Reviewed: Yes OT Type of Visit: Treatment Precautions Activity: ok for therapy per GEOFF Sanchez Equipment: gait belt, RW, bed alarm, mayo Telemetry/Refractory Specialist: Yes Oxygen Used: room air Other: Seizure precautions. High fall risk, confusion Pain Assessment Pain Assessment: No/denies pain ADL / IADL Hand Dominance: Right Where Assessed: Other (Comment) (standing at EOB) Toilet/Commode Assistance: Total assist (for hygiene; once pt was standing at EOB movie writer noticed stool, pt unaware; required totalA for hygiene d/t required bilat UE support to maintain standing) UE Dressing Assistance: Max assist (to don/doff gown) Hearing / Speech / Vision Hearing: Within Functional Limits Speech: Garbled, Expressive aphasia, Receptive aphasia Cognition Overall Cognitive Status: Exceptions to Within Functional Limits Arousal/Alertness: Generalized responses Insight of Deficits: Decreased awareness of deficits Problem Solving: Reduced Interfering Components: Processing speed, Working memory, Attention - sustained, Attention - divided, Attention to detail, Motor planning, Attention - selective Other: pt very fidgity and difficult to maintain safety d/t pt constantly pulling on lines, mayo Bed Mobility Supine to Sit: Min assist Sit to Supine: Max assist Other: pt in bed after tx w/call light in reach, bed alarm on and pt w/wrist restraints on Transfers Sit to Stand: Min assist, Verbal cues Stand to Sit: Min assist, Verbal cues Other: completed STS 3xs Gait Gait Assistance: Mod assist, Verbal cues Assistive Device: Rolling walker Gait Distance: side stepped to HOB 3xs, required assist to weight shift and to advance either LE Limiting Factors to Gait: Fatigue, Weakness, Decreased safety, Cognition/difficulty following directions Balance Sitting Balance: Static: (fair- d/t a posterior drift, pt able to correct w/cuing) Sitting Balance: Dynamic: (fair- to poor+ d/t posterior drift) Standing Balance: Static: (poor+ w/bilat UE support) Standing Balance: Dynamic: Poor (w/RW) Other: sat at EOB about 20mins while completing ADL's and exercises, required CGA to [place]jam[place] to maintain balance d/t posterior drift; stood 3minx2 to increase endurance and steadiness, fatigues quickly Activity Tolerance Endurance: Tolerates 30 minutes activity with rest breaks Plan Occupational Therapy Care Plan Occupational Therapy Care Plan (Active) Template: OT - Occupational Therapy Problem: Activity Tolerance Dates: Start: 06/07/25 Disciplines: OT Goal: Tolerate 30 minutes of activity WITH rest breaks Dates: Start: 06/07/25 Expected End: 07/08/25 Description: Goal Description: Disciplines: OT Outcomes Date/Time User Outcome 06/18/25 1040 Sue Hernandez BATOOL/L Progressing 06/14/25 1035 Sue Hernandez TECHNICAL SUPPORT COORDINATOR/L Progressing 06/12/25 1458 Phyllis Kunz SAMUEL/L Progressing 06/09/25 1503 Sue Hernandez BATOOL/L Progressing Problem: Bathing LB Dates: Start: 06/07/25 Disciplines: OT Goal: Patient will perform bathing LB with Minimum Assist Dates: Start: 06/07/25 Expected End: 07/08/25 Description: Goal Description: Disciplines: OT Problem: Bathing UB Dates: Start: 06/07/25 Disciplines: OT Goal: Patient will perform bathing UB with Set-Up Dates: Start: 06/07/25 Expected End: 07/08/25 Description: Goal Description: Disciplines: OT Problem: Bed Mobility Dates: Start: 06/07/25 Disciplines: OT Goal: Patient will perform bed mobility with Contact Guard Dates: Start: 06/07/25 Expected End: 07/08/25 Description: Goal Description: Disciplines: OT Outcomes Date/Time User Outcome 06/18/25 1040 Sue Yousif-Rawls, BATOOL/L Not Progressing 06/14/25 1035 Sue Yousif-Rawls, TECHNICAL SUPPORT COORDINATOR/L Progressing 06/09/25 1503 Sue Yousif-Rawls, TECHNICAL SUPPORT COORDINATOR/L Progressing Problem: Cognition Dates: Start: 06/07/25 Disciplines: OT Goal: Improve cognition Dates: Start: 06/07/25 Expected End: 07/08/25 Description: Follow one step commands 100% of the time Disciplines: OT Outcomes Date/Time User Outcome 06/18/25 1040 Sue Yousif-Rawls, TECHNICAL SUPPORT COORDINATOR/L Not Progressing 06/14/25 1035 Sue Yousif-Rawls, TECHNICAL SUPPORT COORDINATOR/L Not Progressing 06/12/25 1458 Phyllis Kunz, SAMUEL/L Progressing 06/09/25 1503 Sue Yousif-Rawls, BATOOL/L Progressing Problem: Dressing LB Dates: Start: 06/07/25 Disciplines: OT Goal: Patient will perform dressing LB with Minimum Assist Dates: Start: 06/07/25 Expected End: 07/08/25 Description: Goal Description: Disciplines: OT Problem: Dressing UB Dates: Start: 06/07/25 Disciplines: OT Goal: Patient will perform dressing UB with Set-Up Dates: Start: 06/07/25 Expected End: 07/08/25 Description: Goal Description: Disciplines: OT Problem: Functional Mobility Dates: Start: 06/07/25 Disciplines: OT Goal: Patient will perform functional mobility with Minimum Assist Dates: Start: 06/07/25 Expected End: 07/08/25 Description: Goal Description: Disciplines: OT Outcomes Date/Time User Outcome 06/18/25 1040 Sue Yousif-Rawls, TECHNICAL SUPPORT COORDINATOR/L Not Progressing 06/14/25 1035 Sue Yousif-Rawls, TECHNICAL SUPPORT COORDINATOR/L Progressing 06/12/25 1458 Phyllis Kunz, SAMUEL/L Progressing 06/09/25 1503 Sue Yousif-Rawls, BATOOL/L Progressing Problem: Grooming Dates: Start: 06/07/25 Disciplines: OT Goal: Patient will perform grooming with Minimum Assist Dates: Start: 06/07/25 Expected End: 07/08/25 Description: Goal Description: Disciplines: OT Outcomes Date/Time User Outcome 06/12/25 1458 Phyllis Kunz, SAMUEL/L Progressing 06/09/25 1503 Sue Yousif-Rawls, BATOOL/L Progressing Problem: Home Management Dates: Start: 06/07/25 Disciplines: OT Goal: Patient will perform home management with Minimum Assist Dates: Start: 06/07/25 Expected End: 07/08/25 Description: Goal Description: Disciplines: OT Problem: Sitting Balance Dates: Start: 06/07/25 Disciplines: OT Goal: Improve balance to good Dates: Start: 06/07/25 Expected End: 07/08/25 Description: Good dynamic balance, Disciplines: OT Outcomes Date/Time User Outcome 06/18/25 1040 Sue Yousif-Rawls, BATOOL/L Progressing 06/14/25 1035 Sue Yousif-Rawls, BATOOL/L Progressing 06/12/25 1458 Phyllis Kunz, SAMUEL/L Progressing 06/09/25 1503 Sue Yousif-Rawls, BATOOL/L Progressing Problem: Standing Balance Dates: Start: 06/07/25 Disciplines: OT Goal: Improve balance to good Dates: Start: 06/07/25 Expected End: 07/08/25 Description: Good dynamic balance. Disciplines: OT Outcomes Date/Time User Outcome 06/18/25 1040 Sue Yousif-Rawls, BATOOL/L Progressing 06/14/25 1035 Sue Yousif-Rawls, BATOOL/L Progressing 06/12/25 1458 Phyllis Kunz, SAMUEL/L Progressing 06/09/25 1503 Sue Yousif-Rawls, BATOOL/L Progressing Problem: Strength Dates: Start: 06/07/25 Disciplines: OT Goal: Improve strength Dates: Start: 06/07/25 Expected End: 07/08/25 Description: Improve bilateral upper extremity strength to be able to complete full ADL tasks without rest breaks. Disciplines: OT Outcomes Date/Time User Outcome 06/18/25 1040 Sue Yousif-Rawls, TECHNICAL SUPPORT COORDINATOR/L Progressing 06/14/25 1035 Sue Yousif-Rawls, BATOOL/L Progressing 06/14/25 1033 Sue Yousif-Rawls, BATOOL/L Progressing 06/12/25 1458 Phyllis Kunz, SAMUEL/L Progressing 06/09/25 1503 Sue Yousif-Rawls, BATOOL/L Progressing Problem: Toilet Transfers Dates: Start: 06/07/25 Disciplines: OT Goal: Patient will perform toilet transfers with Minimum Assist Dates: Start: 06/07/25 Expected End: 07/08/25 Description: Goal Description: Disciplines: OT Problem: Toileting Dates: Start: 06/07/25 Disciplines: OT Goal: Patient will perform toileting with Minimum Assist Dates: Start: 06/07/25 Expected End: 07/08/25 Description: Goal Description: Disciplines: OT Outcomes Date/Time User Outcome 06/18/25 1040 Sue Yousif-Rawls, TECHNICAL SUPPORT COORDINATOR/L Not Progressing 06/09/25 1503 Sue Yousif-Rawls, BATOOL/L Not Progressing Problem: Transfers Dates: Start: 06/07/25 Disciplines: OT Goal: Patient will perform transfers with Contact Guard Dates: Start: 06/07/25 Expected End: 07/08/25 Description: Goal Description: Disciplines: OT Outcomes Date/Time User Outcome 06/18/25 1040 Sue Yousif-Rawls, BATOOL/L Progressing 06/14/25 1035 Sue Yousif-Rawls, TECHNICAL SUPPORT COORDINATOR/L Progressing 06/12/25 1458 Phyllis Kunz, SAMUEL/L Progressing 06/09/25 1503 Sue Yousif-Rawls, TECHNICAL SUPPORT COORDINATOR/L Progressing Occupational Therapy Care Plan (Resolved) There are no resolved problems. Principal Problem: ICH (intracerebral hemorrhage) ([facility]) Cosigned by STEPH Gant/Brendon at 06/18/2025 2:47 PM EDT Associated attestation - Dixon Murphy, OTR/L - 06/18/2025 2:47 PM EDT I have reviewed and agree with this note and education documentation for this visit. * PT/OT/BLOCK HACKER - Bautista Doyle PTA - 06/18/2025 9:46 AM EDT Physical Therapy Treatment Discharge Recommendations for Safe Patient Transition PT Discharge Disposition Recommendation: Post acute - moderate PT Post Acute Moderate Rehab Needs: Recommend moderate intensity rehab, Tolerate 1-2 hrs of therapy3-5 days/wk, Subacute or chronic functional impairment Current Impairments Informing Therapy Recommendation: Ambulation status/safety, Cognition, Fall risk, Endurance level 6 Clicks: Basic Mobility Turning from your back to your side while in a flat bed without using bed rails?: A lot Moving from lying on your back to sitting on side of flat bed without using bed rails?: A lot Moving to and from bed to a chair (including w/c)?: A lot Standing up from a chair using your arms (e.g. w/c or bedside chair)?: A lot To walk in hospital room?: A lot Climbing 3-5 steps with a railing?: Total Scoring 6 Clicks: Basic Mobility Raw Score: 11 CMS G Code Modifier: CL PT Treatment/Interventions: Functional transfer training, LE strengthening/ROM, Patient/family training, Equipment eval/education, Balance, Bed mobility, Gait training, Neuromuscular reeducation PT Frequency: 4-5days/week PT Duration: 06/30/25 Assessment Patient Assessment Patient Response to Treatment: Slow progress, decreased activity tolerance, Slow progress, cognitive deficits, Slow progress, medical status limitations Mood/Affect: Appropriate for circumstances Rehab Prognosis: Good, With continued PT status post acute discharge, 24 hour supervision recommended Visit RN Communication: Yes Medical Record Reviewed: Yes PT Type of Visit: Treatment Precautions Activity: GEOFF Sanchez states PT appropriate. early mobility:pass Equipment: rolling walker, gait belt, Mayo catheter, IV, restraints at this time due to pulling onlines Telemetry/Refractory Specialist: Yes Oxygen Used: room air Other: high fall risk, seizure precautions, confusion Pain Assessment Pain Assessment: No/denies pain Hearing / Speech / Vision Hearing: Within Functional Limits Speech: Garbled, Expressive aphasia, Receptive aphasia (patient following commands on occasion and able to answer with short answers.) Cognition Arousal/Alertness: Generalized responses Attention Span: Difficulty attending to directions Memory: Decreased recall of precautions, Decreased recall of biographical information, Decreased recall of recent events Following Commands: Follows one step commands with increased time, Follows one step commands with repetition Safety Judgment: Decreased awareness of need for assistance, Decreased awareness of need for safety Awareness of Errors: Assistance required to correct errors made, Decreased awareness of errors, Assistance required to identify errors made Insight of Deficits: Decreased awareness of deficits Problem Solving: Reduced Interfering Components: Processing speed, Working memory, Attention - sustained, Attention - divided, Attention to detail, Motor planning, Attention - selective Other: patient willing to participate though still confused and reaching for lines once restraints taken off. given cues for safety and distraction to prevent patient from pulling on cords. Bed Mobility Supine to Sit: Min assist Sit to Supine: Max assist (x2) Other: patient given cues for step by step technique with assist to push up to seated position and scoot to edge of bed. patient required increased assist for B LEs and upper body support for return to supine due to increased fatigue. Transfers Sit to Stand: Min assist Stand to Sit: Min assist Other: cues for hand placement to increase safety and body position for balance. assist needed for balance during transitions. performed times 3 reps during session for cleaning and for side steps next to bed. Gait Base of Support: Narrow Pattern: Decreased shani, R Decreased foot clearance, L Decreased foot clearance, Forward trunk, R Foot flat, L Foot flat Gait Assistance: Mod assist Assistive Device: Rolling walker Gait Distance: 3 steps with walker for support. side steps to head of bed due to posterior lean during movement and weakness. nursing requested patient back to bed at this time due to restraints. Limiting Factors to Gait: Fatigue, Weakness, Decreased safety Balance Sitting Balance: Static: Fair (-) Sitting Balance: Dynamic: Fair (-) Standing Balance: Static: Poor (+) Standing Balance: Dynamic: Poor Other: patient sat at edge of bed times 20 minutes while performing exercises and to work on balance due to posterior lean. assist needed for balance throughout seated position. stood times 3 reps atwalker with assist for balance. occasional posterior lean during standing and side steps to L with assist to maintain upright. Activity Tolerance Endurance: Tolerates >30 minutes activity with rest breaks Other: returned to supine with call light within reach and nursing aware. bed alarm set and restraints back in place. LE Seated LE seated exercises performed?: Yes Ankle pumps: x Long arc quads: x Seated marching: x Other: AROM B LEs with verbal and visual cues for proper technique and to remain on task. performedat edge of bed with assist needed for support due to posterior lean. Repetitions: 15 Plan Physical Therapy Care Plan Physical Therapy Care Plan (Active) Template: PT - Physical Therapy Problem: Activity Tolerance Dates: Start: 06/07/25 Disciplines: PT Goal: Tolerate 30 minutes of activity WITH rest breaks Dates: Start: 06/07/25 Expected End: 06/30/25 Description: Goal Description: For seated and standing activities for improved mobility Disciplines: PT Outcomes Date/Time User Outcome 06/18/25 1034 Bautista Doyle PTA Progressing 06/14/25 1025 Danny Herrera PTA Progressing 06/12/25 1451 Danny Herrera PTA Progressing 06/09/25 1445 Stan Graham PTA Progressing Goal Note filed on 06/14/25 1025 by Danny Herrera PTA Evaluation of progress towards goal: Problem: Bed Mobility Dates: Start: 06/07/25 Disciplines: PT Goal: Patient will perform bed mobility with Minimum Assist Dates: Start: 06/07/25 Expected End: 06/30/25 Description: Goal Description: Disciplines: PT Outcomes Date/Time User Outcome 06/18/25 1034 Bautista Doyle PTA Progressing 06/14/25 1025 Danny Herrera PTA Progressing 06/09/25 1445 Stan Graham PTA Progressing Goal Note filed on 06/14/25 1025 by Danny Herrera PTA Evaluation of progress towards goal: Problem: Gait Dates: Start: 06/07/25 Disciplines: PT Goal: Patient will perform gait with Minimum Assist Dates: Start: 06/07/25 Expected End: 06/30/25 Description: 100 feet with RW support for safe mobility Goal Description: Disciplines: PT Outcomes Date/Time User Outcome 06/18/25 1034 Bautista Doyle, BARROW WORKER HELPER Progressing 06/14/25 1025 Danny Herrera, BARROW WORKER HELPER Progressing 06/12/25 1451 Danny Herrera, BARROW WORKER HELPER Progressing 06/09/25 [facility]OW WORKER HEL[facility] Progressing Goal Note filed on 06/14/25 1025 by Danny Herrera PTA Evaluation of progress towards goal: Problem: Sitting Balance Dates: Start: 06/07/25 Disciplines: PT Goal: Improve balance to good Dates: Start: 06/07/25 Expected End: 06/30/25 Description: Static Dynamic for safe ADLs and transfers Disciplines: PT Outcomes Date/Time User Outcome 06/18/25 1034 Bautista Dolye, BARROW WORKER HELPER Progressing 06/14/25 1025 Danny Herrera, BARROW WORKER HELPER Progressing 06/12/25 1451 Danny Herrera, BARROW WORKER HELPER Progressing 06/09/25 1445 [facility] BARROW WORKER HELPER Progressing Goal Note filed on 06/14/25 1025 by Danny Herrera PTA Evaluation of progress towards goal: Problem: Standing Balance Dates: Start: 06/07/25 Disciplines: PT Goal: Improve balance to fair Dates: Start: 06/07/25 Expected End: 06/30/25 Description: Static Dynamic with walker support for safe mobility, decreased fall risk Disciplines: PT Outcomes Date/Time User Outcome 06/18/25 1034 Bautista Doyle, BARROW WORKER HELPER Progressing 06/14/25 1025 Danny Herrera, BARROW WORKER HELPER Progressing 06/12/25 1451 Danny Herrera, BARROW WORKER HELPER Progressing 06/09/25 1445 Stan Morrill, BARROW WORKER HELPER Progressing Goal Note filed on 06/14/25 1025 by Danny Herrera PTA Evaluation of progress towards goal: Problem: Transfers Dates: Start: 06/07/25 Disciplines: PT Goal: Patient will perform transfers with Minimum Assist Dates: Start: 06/07/25 Expected End: 06/30/25 Description: Goal Description: with RW support Disciplines: PT Outcomes Date/Time User Outcome 06/18/25 1034 Bautista Doyle, BARROW WORKER HELPER Progressing 06/14/25 1025 Danny Herrera, BARROW WORKER HELPER Progressing 06/12/25 1451 Danny Herrera, BARROW WORKER HELPER Progressing 06/09/25 1445 Stan Graham, BARROW WORKER HELPER Progressing Goal Note filed on 06/14/25 1025 by Danny Herrera PTA Evaluation of progress towards goal: Physical Therapy Care Plan (Resolved) There are no resolved problems. Principal Problem: ICH (intracerebral hemorrhage) ([facility]) Cosigned by Yelitza Jauregui PT at 06/18/2025 12:01 PM EDT Associated attestation - Yelitza Jauregui PT - 06/18/2025 12:01 PM EDT I have reviewed and agree with this note and education documentation for this visit. * Plan of Care - Laura Jeff RN - 06/18/2025 7:51 AM EDT Problem: Pain Goal: Patient goal is pain score less than 4, able to rest, and participant in treatment plan as appropriate Description: INTERVENTIONS: 1. Encourage patient or legal junior sales representative to report early pain and ask for pain medicine when needed 2. Assess pain using appropriate pain scale and include the scale used when documenting 3. Administer analgesics based on type and severity of pain and evaluate response within appropriate time frame 4. Implement non-pharmacological measures as appropriate and evaluate response 5. Consider cultural and social influences on pain and pain management 6. Notify LIP if interventions ineffective or patient reports new pain 7. Monitor vital signs including pulse ox, end-tidal CO2 based on pain intervention 8. Reassess pain per policy 9. Teach patient or legal junior sales representative interventions for comforting Outcome: Progressing Note: Evaluation of progress towards goal: assess Problem: Safety Goal: Patient will be injury free during hospitalization Description: INTERVENTIONS: 1. Assess patient's risk for falls and implement fall prevention plan of care per policy 2. Provide and maintain a safe environment 3. Proper use of double Identifiers 4. Medication administration using the 5 rights 5. Hand hygiene 6. Specimens are labeled at the bedside 7. Instruct patient/ patient junior sales representative about use of safety devices 8. Include patient/ patient junior sales representative in decisions related to safety Outcome: Progressing Note: Evaluation of progress towards goal: bilateral wrist restraints maintained for safety purposes, safety interventions maintained per policy Problem: Infection Goal: Absence of infection during hospitalization Description: INTERVENTIONS 1. Assess and monitor for signs and symptoms of infection. 2. Monitor lab/diagnostic results. 3. Monitor all insertion sites i.e., indwelling lines, tubes and drains. 4. Monitor endotracheal (as able) and nasal secretions for changes in amount and color. 5. Administer medications as ordered. 6. Instruct and encourage patient and family to use good hand hygiene technique. 7. Identify and instruct patient/patient junior sales representative in use of appropriate isolation precautionsfor identified infection/symptoms. 8. Provide and discuss with patient/patient junior sales representative on educational MDRO sheet. 9. Encourage and monitor nutritional status daily and consult cleaner window if indicated. 10. Implement neutropenic guidelines as needed. Outcome: Progressing Note: Evaluation of progress towards goal: assess Problem: Knowledge Deficit Goal: Patient/patient junior sales representative demonstrates understanding of disease process, treatment plan,medications, and discharge instructions Description: INTERVENTIONS 1. Complete learning assessment and assess knowledge base 2. Provide teaching at level of understanding 3. Provide teaching via preferred learning method(s) Outcome: Progressing Note: Evaluation of progress towards goal: assess Problem: Discharge Planning Goal: Discharge to post-acute care, other facility, or home with appropriate resources Description: Patient's goal is: INTERVENTIONS 1. Conduct assessment to determine patient/family and health care team treatment goals, and need for post-acute services based on payer coverage, community resources, and patient preferences, and barriers to discharge 2. Coordinate with Social work, Care Navigation, and Utilization Review to arrange appropriate level of services according to patient's needs based on patient preference and payer coverage in collaboration with the physician and health care team 3. Address psychosocial, clinical, and financial barriers to discharge as identified in assessment in conjunction with the patient/family and health care team 4. Consult appropriate ancillary services (i.e.. PT/OT/ST, etc) as needed 5. Communicate with and update the patient/family, physician, and health care team regarding progress on the discharge plan 6. Identify discharge learning needs (meds, wound care, etc). 7. Arrange for needed discharge transportation as appropriate Outcome: Progressing Note: Evaluation of progress towards goal: assess Problem: Neurological Deficit Goal: Neurological status is stable or improving Description: Patient's goal is: INTERVENTIONS 1. Complete Neurological assessment as indicated/ordered 2. Initiate measures to prevent increased intracranial pressure 3. Monitor and assess patient's level of consciousness, motor function, sensory function, and levelof assistance needed for ADLs 4. Monitor and report changes from baseline 5. Maintain blood pressure and fluid volume within ordered parameters to optimize cerebral perfusion and minimize risk of hemorrhage 6. Monitor labs and diagnostic tests 7. Administer anti-seizure medications as ordered 8. Maintain airway, patient safety and administer oxygen as ordered 9. Monitor patient for seizure activity, document and report duration and description of seizure toLIP 10. If seizure occurs, turn patient to side and suction secretions as needed 11. Reorient patient post seizure 12. Seizure pads on all 4 side rails 13. Instruct patient/family to notify RN of any seizure activity 14. Instruct patient/family to call for assistance with activity based on assessment 15. Utilize bleeding precautions if thrombolytic given Outcome: Progressing Note: Evaluation of progress towards goal: assess Problem: Activity Intolerance/Impaired Mobility Goal: Mobility/activity is maintained at optimum level for patient Description: Patient's goal is: INTERVENTIONS 1. Assess and monitor patient barriers to mobility and need for assistive/adaptive devices 2. Assess patient's emotional response to limitations 3. Collaborate with interdisciplinary teams and initiate plans and interventions as ordered 4. Encourage independent activity per tolerance 5. Maintain proper body alignment 6. Perform active/passive ROM as tolerated/ordered 7. Coordinate activities to conserve energy 8. Reposition patient 9. Ensure adequate rest/sleep time Outcome: Progressing Note: Evaluation of progress towards goal: assess Problem: Communication Impairment Goal: Ability to express needs and understand communication Description: INTERVENTIONS 1. Assess patient's communication skills and ability to understand information 2. Provide alternate method of communication if needed i.e. ipad, sign board, pen/paper 3. Collaborate with Speech Therapy to develop effective communication strategies 4. Include patient/patient junior sales representative in decisions related to communication Outcome: Progressing Note: Evaluation of progress towards goal: assess Problem: Potential for Aspiration Goal: Patient's risk of aspiration is minimized Description: INTERVENTIONS 1. Assess and monitor vital signs, respiratory status, and labs (WBC) 2. Monitor for signs of aspiration (tachypnea, cough, rales, wheezing, cyanosis, fever) 3. Assess and monitor patient's ability to swallow 4. Place patient up in chair to eat if possible 5. Elevate head of bed 90 degrees to eat if unable to get patient up into chair 6. Supervise patient during oral intake 7. Instruct patient to take small bites 8. Instruct patient to take small single sips when taking liquids 9. Follow patient-specific strategies generated by speech pathologist 10. Complete bedside swallow screen if appropriate and take actions as indicated. 11. Administer prescribed medications and monitor effects Outcome: Progressing Note: Evaluation of progress towards goal: assess, feed Problem: Anxiety Goal: Anxiety is at manageable level Description: Patient's goal is: INTERVENTIONS 1. Assess and monitor patient's anxiety level 2. Monitor for signs and symptoms of anxiety both physical and emotional (heart palpitations, chestpain, shortness of breath, headaches, nausea, feeling jumpy, restlessness, irritable, apprehensive) 3. Reorient/orient patient to unit/surroundings 4. Explain treatment plan 5. Explain tests/procedures prior to initiation 6. Encourage participation in care 7. Encourage verbalization of concerns/fears 8. Assess coping mechanisms 9. Assist in developing anxiety-reducing skills 10. Administer complimentary therapies 11. Manage patient's environment 12. Limit or eliminate stimulants such as caffeine and nicotine 13. Collaborate with ancillary departments 14. Include patient/patient junior sales representative in decisions related to anxiety Outcome: Progressing Note: Evaluation of progress towards goal: assess Problem: Potential for Compromised Skin Integrity Goal: Skin integrity is maintained or improved Description: Patient's goal is: INTERVENTIONS 1. Perform initial skin assessment on admission and as needed 2. Turn patient every 2 hours and PRN 3. Relieve pressure to bony prominences 4. Avoid shearing 5. Keep skin clean and dry 6. Alternate a full bath with partial baths for elderly 7. Apply lotion/moisturizer on skin 8. Monitor patient's hygiene practices 9. Float heels 10. Collaborate with interdisciplinary team and initiate plans and interventions as needed Outcome: Progressing Note: Evaluation of progress towards goal: assess Goal: Patient's nutritional intake is adequate Description: Patient's goal is: INTERVENTIONS 1. Assess and monitor food intake and supplements, patient food preferences, nausea, vomiting, labs, oral cavity (gums, teeth, tongue, mucosa), proper denture fit, and cultural beliefs 2. Monitor for signs of hypoglycemia and hyperglycemia 3. Collaborate with interdisciplinary team and initiate plan and interventions as ordered 4. Monitor patient's weight 5. Assist patient with meals/food selection 6. Assist patient with eating 7. Allow adequate time for meals 8. Provide pleasant environment during mealtime 9. Increase social contact during mealtimes 10. Plan activities to conserve energy 11. Encourage/perform oral hygiene as appropriate 12. Encourage patient to take dietary supplement as ordered 13. Collaborate with clinical cleaner window 14. Include patient/ patient's junior sales representative in decisions related to nutrition Outcome: Progressing Note: Evaluation of progress towards goal: assess, patient is a feed for assistance Problem: Self Care Deficit Goal: Return ADL status to a safe level of function Description: Patient's goal is: INTERVENTIONS 1. Administer medication as ordered 2. Assess ADL deficits and provide assistive devices as needed 3. Obtain PT/OT consults as needed 4. Assist and instruct patient to increase activity and self care as tolerated Outcome: Progressing Note: Evaluation of progress towards goal: assess Problem: Moderate - High Risk Fall Score Description: Long Fall Score of =/> 25 or indicated by [facility] Assessment Goal: Patient should be free from fall Description: Interventions: 1. [place] to environment 2. Hourly rounds addressing the 4 P's (Pain, Positioning, Possessions, Potty) 3. Clear area of hazards (spills, clutter, electrical cords, unnecessary equipment) 4. Place equipment (bed & TV controls, call light, phone, urinal) within reach 5. Encourage patient to wear glasses and hearing aides as appropriate 6. Maintain bed in lowest position 7. Lock wheels on bed/wheelchair 8. Provide adequate lighting, including night light 9. Assess need for additional bedding, food/fluids, pain med's prior to sleep/routinely 10. Provide gripper slippers or personal non-skid footwear 11. Teach patient and patient junior sales representative to maintain environment for safety and engage in all aspects of fall prevention program 12. Remind patient to call for help before getting out of bed 13. Initiate bed/chair/exit alarms supportive devices as appropriate, (chair wedge, no-skid floor mat, raised edge mattress, hip protectors) 14. Locate patient bed assignment for optimal visualization 15. Evaluate and identify Safe Patient Handling Equipment needs 16. Provide supervision when out of bed or chair 17. Utilize gait belt as needed to assist with ambulation 18. Place adaptive equipment (cane, walker) within reach 19. Request patient junior sales representative bring adaptive equipment/mobility aids from home or obtain and provide as needed 20. Consult pharmacy regarding effects of med's affecting mobility, cognition, and alternatives 21. Obtain physician order for PT if risk factors associated with mobility are present 22. Obtain physician order for OT as appropriate 23. Utilize diversional activities 24. Educate patient and patient junior sales representative how to maintain a safe environment during visitationtimes (notify nurse prior to leaving bedside) 25. Consider appropriateness of medical or non-medical surgical tech 26. Set up voiding schedule as appropriate (every 2 hours) Outcome: Progressing Note: Evaluation of progress towards goal: assess, restraints per policy, safety interventions maintained Problem: Multi-Drug Resistant Organism / Rule-Out Infection Prevention Goal: Prevent transmission of infection Description: INTERVENTIONS 1. Place patient in private room or in room with patient with same disease 2. Discard single-use items 3. Clean reusable equipment between patients 4. Wear gloves for direct and indirect contact with patient or contaminants 5. Change gloves between tasks and procedures 6. Wash hands before and after caring for each patient 7. Wear appropriate personal protective equipment in relation to the indicated isolation type 8. Place appropriate isolation signage on patient's door 9. Provide patient/ patient junior sales representative with isolation education. Outcome: Progressing Note: Evaluation of progress towards goal: assess Problem: Safety - Medical Restraint Goal: Remains free of injury from restraints (Restraint for Interference with Radio Script Writer) Description: INTERVENTIONS: 1. Determine that other, less restrictive measures have been tried or would not be effective beforeapplying the restraint 2. Evaluate the patient's condition at the time of restraint application 3. Inform patient/family regarding the reason for restraint 4. Q2H: Monitor safety, Vital signs, psychosocial status, signs of injury, skin integrity, circulation, neurovascular status in affected extremities, respiratory status, comfort, nutrition and hydration, hygiene, ROM, elimination needs 5. Doctor will be notified of restraint 6. RN properly applies restraints per physician order Outcome: Progressing Note: Evaluation of progress towards goal: restraints maintained Goal: Free from restraint(s) (Restraint for Interference with Radio Script Writer) Description: INTERVENTIONS: 1. Hourly rounds addressing the 4 P's (Pain, Positioning, Possessions, Potty) 2. Order is valid for the duration of the episode of care 3. Discontinue at the earliest possible time once the reason for restraints no longer exists 4. Identify and implement measures to help patient regain control 5. Food, fluids, and toilet offered at a minimum of every 2 hours 6. RN modifies the patient's plan of care by entering a problem statement related to safety; individualizes the safety outcome Outcome: Progressing Note: Evaluation of progress towards goal: restraints remained, assessed, safety interventions maintained * Plan of Care - Tramaine Seaman RN - 06/18/2025 4:37 AM EDT Problem: Pain Goal: Patient goal is pain score less than 4, able to rest, and participant in treatment plan as appropriate Description: INTERVENTIONS: 1. Encourage patient or legal junior sales representative to report early pain and ask for pain medicine when needed 2. Assess pain using appropriate pain scale and include the scale used when documenting 3. Administer analgesics based on type and severity of pain and evaluate response within appropriate time frame 4. Implement non-pharmacological measures as appropriate and evaluate response 5. Consider cultural and social influences on pain and pain management 6. Notify LIP if interventions ineffective or patient reports new pain 7. Monitor vital signs including pulse ox, end-tidal CO2 based on pain intervention 8. Reassess pain per policy 9. Teach patient or legal junior sales representative interventions for comforting Outcome: Progressing Note: Evaluation of progress towards goal: Assess pain using appropriate pain scale and include thescale used when documenting Problem: Safety Goal: Patient will be injury free during hospitalization Description: INTERVENTIONS: 1. Assess patient's risk for falls and implement fall prevention plan of care per policy 2. Provide and maintain a safe environment 3. Proper use of double Identifiers 4. Medication administration using the 5 rights 5. Hand hygiene 6. Specimens are labeled at the bedside 7. Instruct patient/ patient junior sales representative about use of safety devices 8. Include patient/ patient junior sales representative in decisions related to safety Outcome: Progressing Note: Evaluation of progress towards goal: Provide and maintain a safe environment Problem: Infection Goal: Absence of infection during hospitalization Description: INTERVENTIONS 1. Assess and monitor for signs and symptoms of infection. 2. Monitor lab/diagnostic results. 3. Monitor all insertion sites i.e., indwelling lines, tubes and drains. 4. Monitor endotracheal (as able) and nasal secretions for changes in amount and color. 5. Administer medications as ordered. 6. Instruct and encourage patient and family to use good hand hygiene technique. 7. Identify and instruct patient/patient junior sales representative in use of appropriate isolation precautionsfor identified infection/symptoms. 8. Provide and discuss with patient/patient junior sales representative on educational MDRO sheet. 9. Encourage and monitor nutritional status daily and consult cleaner window if indicated. 10. Implement neutropenic guidelines as needed. Outcome: Progressing Note: Evaluation of progress towards goal: . Monitor lab/diagnostic results. Problem: Knowledge Deficit Goal: Patient/patient junior sales representative demonstrates understanding of disease process, treatment plan,medications, and discharge instructions Description: INTERVENTIONS 1. Complete learning assessment and assess knowledge base 2. Provide teaching at level of understanding 3. Provide teaching via preferred learning method(s) Outcome: Progressing Note: Evaluation of progress towards goal: Complete learning assessment and assess knowledge base Problem: Discharge Planning Goal: Discharge to post-acute care, other facility, or home with appropriate resources Description: Patient's goal is: INTERVENTIONS 1. Conduct assessment to determine patient/family and health care team treatment goals, and need for post-acute services based on payer coverage, community resources, and patient preferences, and barriers to discharge 2. Coordinate with Social work, Care Navigation, and Utilization Review to arrange appropriate level of services according to patient's needs based on patient preference and payer coverage in collaboration with the physician and health care team 3. Address psychosocial, clinical, and financial barriers to discharge as identified in assessment in conjunction with the patient/family and health care team 4. Consult appropriate ancillary services (i.e.. PT/OT/ST, etc) as needed 5. Communicate with and update the patient/family, physician, and health care team regarding progress on the discharge plan 6. Identify discharge learning needs (meds, wound care, etc). 7. Arrange for needed discharge transportation as appropriate Outcome: Progressing Note: Evaluation of progress towards goal: Conduct assessment to determine patient/family and health care team treatment goals, and need for post-acute services based on payer coverage, community resources, and patient preferences, and barriers to discharge Problem: Neurological Deficit Goal: Neurological status is stable or improving Description: Patient's goal is: INTERVENTIONS 1. Complete Neurological assessment as indicated/ordered 2. Initiate measures to prevent increased intracranial pressure 3. Monitor and assess patient's level of consciousness, motor function, sensory function, and levelof assistance needed for ADLs 4. Monitor and report changes from baseline 5. Maintain blood pressure and fluid volume within ordered parameters to optimize cerebral perfusion and minimize risk of hemorrhage 6. Monitor labs and diagnostic tests 7. Administer anti-seizure medications as ordered 8. Maintain airway, patient safety and administer oxygen as ordered 9. Monitor patient for seizure activity, document and report duration and description of seizure toLIP 10. If seizure occurs, turn patient to side and suction secretions as needed 11. Reorient patient post seizure 12. Seizure pads on all 4 side rails 13. Instruct patient/family to notify RN of any seizure activity 14. Instruct patient/family to call for assistance with activity based on assessment 15. Utilize bleeding precautions if thrombolytic given Outcome: Progressing Note: Evaluation of progress towards goal: Complete Neurological assessment as indicated/ordered Problem: Activity Intolerance/Impaired Mobility Goal: Mobility/activity is maintained at optimum level for patient Description: Patient's goal is: INTERVENTIONS 1. Assess and monitor patient barriers to mobility and need for assistive/adaptive devices 2. Assess patient's emotional response to limitations 3. Collaborate with interdisciplinary teams and initiate plans and interventions as ordered 4. Encourage independent activity per tolerance 5. Maintain proper body alignment 6. Perform active/passive ROM as tolerated/ordered 7. Coordinate activities to conserve energy 8. Reposition patient 9. Ensure adequate rest/sleep time Outcome: Progressing Note: Evaluation of progress towards goal: Assess and monitor patient barriers to mobility and needfor assistive/adaptive devices Problem: Communication Impairment Goal: Ability to express needs and understand communication Description: INTERVENTIONS 1. Assess patient's communication skills and ability to understand information 2. Provide alternate method of communication if needed i.e. ipad, sign board, pen/paper 3. Collaborate with Speech Therapy to develop effective communication strategies 4. Include patient/patient junior sales representative in decisions related to communication Outcome: Progressing Note: Evaluation of progress towards goal: Assess patient's communication skills and ability to understand information Problem: Potential for Aspiration Goal: Patient's risk of aspiration is minimized Description: INTERVENTIONS 1. Assess and monitor vital signs, respiratory status, and labs (WBC) 2. Monitor for signs of aspiration (tachypnea, cough, rales, wheezing, cyanosis, fever) 3. Assess and monitor patient's ability to swallow 4. Place patient up in chair to eat if possible 5. Elevate head of bed 90 degrees to eat if unable to get patient up into chair 6. Supervise patient during oral intake 7. Instruct patient to take small bites 8. Instruct patient to take small single sips when taking liquids 9. Follow patient-specific strategies generated by speech pathologist 10. Complete bedside swallow screen if appropriate and take actions as indicated. 11. Administer prescribed medications and monitor effects Outcome: Progressing Note: Evaluation of progress towards goal: Assess and monitor vital signs, respiratory status, and labs (WBC) Problem: Anxiety Goal: Anxiety is at manageable level Description: Patient's goal is: INTERVENTIONS 1. Assess and monitor patient's anxiety level 2. Monitor for signs and symptoms of anxiety both physical and emotional (heart palpitations, chestpain, shortness of breath, headaches, nausea, feeling jumpy, restlessness, irritable, apprehensive) 3. Reorient/orient patient to unit/surroundings 4. Explain treatment plan 5. Explain tests/procedures prior to initiation 6. Encourage participation in care 7. Encourage verbalization of concerns/fears 8. Assess coping mechanisms 9. Assist in developing anxiety-reducing skills 10. Administer complimentary therapies 11. Manage patient's environment 12. Limit or eliminate stimulants such as caffeine and nicotine 13. Collaborate with ancillary departments 14. Include patient/patient junior sales representative in decisions related to anxiety Outcome: Progressing Note: Evaluation of progress towards goal: Assess and monitor patient's anxiety level Problem: Potential for Compromised Skin Integrity Goal: Skin integrity is maintained or improved Description: Patient's goal is: INTERVENTIONS 1. Perform initial skin assessment on admission and as needed 2. Turn patient every 2 hours and PRN 3. Relieve pressure to bony prominences 4. Avoid shearing 5. Keep skin clean and dry 6. Alternate a full bath with partial baths for elderly 7. Apply lotion/moisturizer on skin 8. Monitor patient's hygiene practices 9. Float heels 10. Collaborate with interdisciplinary team and initiate plans and interventions as needed Outcome: Progressing Note: Evaluation of progress towards goal: Goal: Patient's nutritional intake is adequate Description: Patient's goal is: INTERVENTIONS 1. Assess and monitor food intake and supplements, patient food preferences, nausea, vomiting, labs, oral cavity (gums, teeth, tongue, mucosa), proper denture fit, and cultural beliefs 2. Monitor for signs of hypoglycemia and hyperglycemia 3. Collaborate with interdisciplinary team and initiate plan and interventions as ordered 4. Monitor patient's weight 5. Assist patient with meals/food selection 6. Assist patient with eating 7. Allow adequate time for meals 8. Provide pleasant environment during mealtime 9. Increase social contact during mealtimes 10. Plan activities to conserve energy 11. Encourage/perform oral hygiene as appropriate 12. Encourage patient to take dietary supplement as ordered 13. Collaborate with clinical cleaner window 14. Include patient/ patient's junior sales representative in decisions related to nutrition Outcome: Progressing Note: Evaluation of progress towards goal: Problem: Self Care Deficit Goal: Return ADL status to a safe level of function Description: Patient's goal is: INTERVENTIONS 1. Administer medication as ordered 2. Assess ADL deficits and provide assistive devices as needed 3. Obtain PT/OT consults as needed 4. Assist and instruct patient to increase activity and self care as tolerated Outcome: Progressing Note: Evaluation of progress towards goal: Problem: Moderate - High Risk Fall Score Description: Long Fall Score of =/> 25 or indicated by [facility] Assessment Goal: Patient should be free from fall Description: Interventions: 1. [place] to environment 2. Hourly rounds addressing the 4 P's (Pain, Positioning, Possessions, Potty) 3. Clear area of hazards (spills, clutter, electrical cords, unnecessary equipment) 4. Place equipment (bed & TV controls, call light, phone, urinal) within reach 5. Encourage patient to wear glasses and hearing aides as appropriate 6. Maintain bed in lowest position 7. Lock wheels on bed/wheelchair 8. Provide adequate lighting, including night light 9. Assess need for additional bedding, food/fluids, pain med's prior to sleep/routinely 10. Provide gripper slippers or personal non-skid footwear 11. Teach patient and patient junior sales representative to maintain environment for safety and engage in all aspects of fall prevention program 12. Remind patient to call for help before getting out of bed 13. Initiate bed/chair/exit alarms supportive devices as appropriate, (chair wedge, no-skid floor mat, raised edge mattress, hip protectors) 14. Locate patient bed assignment for optimal visualization 15. Evaluate and identify Safe Patient Handling Equipment needs 16. Provide supervision when out of bed or chair 17. Utilize gait belt as needed to assist with ambulation 18. Place adaptive equipment (cane, walker) within reach 19. Request patient junior sales representative bring adaptive equipment/mobility aids from home or obtain and provide as needed 20. Consult pharmacy regarding effects of med's affecting mobility, cognition, and alternatives 21. Obtain physician order for PT if risk factors associated with mobility are present 22. Obtain physician order for OT as appropriate 23. Utilize diversional activities 24. Educate patient and patient junior sales representative how to maintain a safe environment during visitationtimes (notify nurse prior to leaving bedside) 25. Consider appropriateness of medical or non-medical surgical tech 26. Set up voiding schedule as appropriate (every 2 hours) Outcome: Progressing Note: Evaluation of progress towards goal: Problem: Safety - Medical Restraint Goal: Remains free of injury from restraints (Restraint for Interference with Radio Script Writer) Description: INTERVENTIONS: 1. Determine that other, less restrictive measures have been tried or would not be effective beforeapplying the restraint 2. Evaluate the patient's condition at the time of restraint application 3. Inform patient/family regarding the reason for restraint 4. Q2H: Monitor safety, Vital signs, psychosocial status, signs of injury, skin integrity, circulation, neurovascular status in affected extremities, respiratory status, comfort, nutrition and hydration, hygiene, ROM, elimination needs 5. Doctor will be notified of restraint 6. RN properly applies restraints per physician order 06/18/2025 [id number] by GEOFF Redd Outcome: Progressing Note: Evaluation of progress towards goal: Evaluate the patient's condition at the time of restraint application 06/17/2025 [id number] by GEOFF Redd Outcome: Progressing Note: Evaluation of progress towards goal: Goal: Free from restraint(s) (Restraint for Interference with Radio Script Writer) Description: INTERVENTIONS: 1. Hourly rounds addressing the 4 P's (Pain, Positioning, Possessions, Potty) 2. Order is valid for the duration of the episode of care 3. Discontinue at the earliest possible time once the reason for restraints no longer exists 4. Identify and implement measures to help patient regain control 5. Food, fluids, and toilet offered at a minimum of every 2 hours 6. RN modifies the patient's plan of care by entering a problem statement related to safety; individualizes the safety outcome Outcome: Progressing Note: Evaluation of progress towards goal: Problem: Multi-Drug Resistant Organism / Rule-Out Infection Prevention Goal: Prevent transmission of infection Description: INTERVENTIONS 1. Place patient in private room or in room with patient with same disease 2. Discard single-use items 3. Clean reusable equipment between patients 4. Wear gloves for direct and indirect contact with patient or contaminants 5. Change gloves between tasks and procedures 6. Wash hands before and after caring for each patient 7. Wear appropriate personal protective equipment in relation to the indicated isolation type 8. Place appropriate isolation signage on patient's door 9. Provide patient/ patient junior sales representative with isolation education. Outcome: Progressing Note: Evaluation of progress towards goal: * Plan of Care - Tramaine Seaman RN - 06/17/2025 10:00 PM EDT Problem: Pain Goal: Patient goal is pain score less than 4, able to rest, and participant in treatment plan as appropriate Description: INTERVENTIONS: 1. Encourage patient or legal junior sales representative to report early pain and ask for pain medicine when needed 2. Assess pain using appropriate pain scale and include the scale used when documenting 3. Administer analgesics based on type and severity of pain and evaluate response within appropriate time frame 4. Implement non-pharmacological measures as appropriate and evaluate response 5. Consider cultural and social influences on pain and pain management 6. Notify LIP if interventions ineffective or patient reports new pain 7. Monitor vital signs including pulse ox, end-tidal CO2 based on pain intervention 8. Reassess pain per policy 9. Teach patient or legal junior sales representative interventions for comforting Outcome: Progressing Note: Evaluation of progress towards goal: Assess pain using appropriate pain scale and include thescale used when documenting Problem: Safety Goal: Patient will be injury free during hospitalization Description: INTERVENTIONS: 1. Assess patient's risk for falls and implement fall prevention plan of care per policy 2. Provide and maintain a safe environment 3. Proper use of double Identifiers 4. Medication administration using the 5 rights 5. Hand hygiene 6. Specimens are labeled at the bedside 7. Instruct patient/ patient junior sales representative about use of safety devices 8. Include patient/ patient junior sales representative in decisions related to safety Outcome: Progressing Note: Evaluation of progress towards goal: Provide and maintain a safe environment Problem: Infection Goal: Absence of infection during hospitalization Description: INTERVENTIONS 1. Assess and monitor for signs and symptoms of infection. 2. Monitor lab/diagnostic results. 3. Monitor all insertion sites i.e., indwelling lines, tubes and drains. 4. Monitor endotracheal (as able) and nasal secretions for changes in amount and color. 5. Administer medications as ordered. 6. Instruct and encourage patient and family to use good hand hygiene technique. 7. Identify and instruct patient/patient junior sales representative in use of appropriate isolation precautionsfor identified infection/symptoms. 8. Provide and discuss with patient/patient junior sales representative on educational MDRO sheet. 9. Encourage and monitor nutritional status daily and consult cleaner window if indicated. 10. Implement neutropenic guidelines as needed. Outcome: Progressing Note: Evaluation of progress towards goal: . Monitor lab/diagnostic results. Problem: Knowledge Deficit Goal: Patient/patient junior sales representative demonstrates understanding of disease process, treatment plan,medications, and discharge instructions Description: INTERVENTIONS 1. Complete learning assessment and assess knowledge base 2. Provide teaching at level of understanding 3. Provide teaching via preferred learning method(s) Outcome: Progressing Note: Evaluation of progress towards goal: Complete learning assessment and assess knowledge base Problem: Discharge Planning Goal: Discharge to post-acute care, other facility, or home with appropriate resources Description: Patient's goal is: INTERVENTIONS 1. Conduct assessment to determine patient/family and health care team treatment goals, and need for post-acute services based on payer coverage, community resources, and patient preferences, and barriers to discharge 2. Coordinate with Social work, Care Navigation, and Utilization Review to arrange appropriate level of services according to patient's needs based on patient preference and payer coverage in collaboration with the physician and health care team 3. Address psychosocial, clinical, and financial barriers to discharge as identified in assessment in conjunction with the patient/family and health care team 4. Consult appropriate ancillary services (i.e.. PT/OT/ST, etc) as needed 5. Communicate with and update the patient/family, physician, and health care team regarding progress on the discharge plan 6. Identify discharge learning needs (meds, wound care, etc). 7. Arrange for needed discharge transportation as appropriate Outcome: Progressing Note: Evaluation of progress towards goal: Conduct assessment to determine patient/family and health care team treatment goals, and need for post-acute services based on payer coverage, community resources, and patient preferences, and barriers to discharge Problem: Neurological Deficit Goal: Neurological status is stable or improving Description: Patient's goal is: INTERVENTIONS 1. Complete Neurological assessment as indicated/ordered 2. Initiate measures to prevent increased intracranial pressure 3. Monitor and assess patient's level of consciousness, motor function, sensory function, and levelof assistance needed for ADLs 4. Monitor and report changes from baseline 5. Maintain blood pressure and fluid volume within ordered parameters to optimize cerebral perfusion and minimize risk of hemorrhage 6. Monitor labs and diagnostic tests 7. Administer anti-seizure medications as ordered 8. Maintain airway, patient safety and administer oxygen as ordered 9. Monitor patient for seizure activity, document and report duration and description of seizure toLIP 10. If seizure occurs, turn patient to side and suction secretions as needed 11. Reorient patient post seizure 12. Seizure pads on all 4 side rails 13. Instruct patient/family to notify RN of any seizure activity 14. Instruct patient/family to call for assistance with activity based on assessment 15. Utilize bleeding precautions if thrombolytic given Outcome: Progressing Note: Evaluation of progress towards goal: Complete Neurological assessment as indicated/ordered Problem: Activity Intolerance/Impaired Mobility Goal: Mobility/activity is maintained at optimum level for patient Description: Patient's goal is: INTERVENTIONS 1. Assess and monitor patient barriers to mobility and need for assistive/adaptive devices 2. Assess patient's emotional response to limitations 3. Collaborate with interdisciplinary teams and initiate plans and interventions as ordered 4. Encourage independent activity per tolerance 5. Maintain proper body alignment 6. Perform active/passive ROM as tolerated/ordered 7. Coordinate activities to conserve energy 8. Reposition patient 9. Ensure adequate rest/sleep time Outcome: Progressing Note: Evaluation of progress towards goal: Assess and monitor patient barriers to mobility and needfor assistive/adaptive devices Problem: Communication Impairment Goal: Ability to express needs and understand communication Description: INTERVENTIONS 1. Assess patient's communication skills and ability to understand information 2. Provide alternate method of communication if needed i.e. ipad, sign board, pen/paper 3. Collaborate with Speech Therapy to develop effective communication strategies 4. Include patient/patient junior sales representative in decisions related to communication Outcome: Progressing Note: Evaluation of progress towards goal: Assess patient's communication skills and ability to understand information Problem: Potential for Aspiration Goal: Patient's risk of aspiration is minimized Description: INTERVENTIONS 1. Assess and monitor vital signs, respiratory status, and labs (WBC) 2. Monitor for signs of aspiration (tachypnea, cough, rales, wheezing, cyanosis, fever) 3. Assess and monitor patient's ability to swallow 4. Place patient up in chair to eat if possible 5. Elevate head of bed 90 degrees to eat if unable to get patient up into chair 6. Supervise patient during oral intake 7. Instruct patient to take small bites 8. Instruct patient to take small single sips when taking liquids 9. Follow patient-specific strategies generated by speech pathologist 10. Complete bedside swallow screen if appropriate and take actions as indicated. 11. Administer prescribed medications and monitor effects Outcome: Progressing Note: Evaluation of progress towards goal: Assess and monitor vital signs, respiratory status, and labs (WBC) Problem: Multi-Drug Resistant Organism / Rule-Out Infection Prevention Goal: Prevent transmission of infection Description: INTERVENTIONS 1. Place patient in private room or in room with patient with same disease 2. Discard single-use items 3. Clean reusable equipment between patients 4. Wear gloves for direct and indirect contact with patient or contaminants 5. Change gloves between tasks and procedures 6. Wash hands before and after caring for each patient 7. Wear appropriate personal protective equipment in relation to the indicated isolation type 8. Place appropriate isolation signage on patient's door 9. Provide patient/ patient junior sales representative with isolation education. Outcome: Progressing Note: Evaluation of progress towards goal: * Plan of Care - Shawna Moncada RN - 06/17/2025 10:08 AM EDT Problem: Pain Goal: Patient goal is pain score less than 4, able to rest, and participant in treatment plan as appropriate Description: INTERVENTIONS: 1. Encourage patient or legal junior sales representative to report early pain and ask for pain medicine when needed 2. Assess pain using appropriate pain scale and include the scale used when documenting 3. Administer analgesics based on type and severity of pain and evaluate response within appropriate time frame 4. Implement non-pharmacological measures as appropriate and evaluate response 5. Consider cultural and social influences on pain and pain management 6. Notify LIP if interventions ineffective or patient reports new pain 7. Monitor vital signs including pulse ox, end-tidal CO2 based on pain intervention 8. Reassess pain per policy 9. Teach patient or legal junior sales representative interventions for comforting Outcome: Progressing Note: Evaluation of progress towards goal: pain will be controlled to allow for rest and adl's Problem: Safety Goal: Patient will be injury free during hospitalization Description: INTERVENTIONS: 1. Assess patient's risk for falls and implement fall prevention plan of care per policy 2. Provide and maintain a safe environment 3. Proper use of double Identifiers 4. Medication administration using the 5 rights 5. Hand hygiene 6. Specimens are labeled at the bedside 7. Instruct patient/ patient junior sales representative about use of safety devices 8. Include patient/ patient junior sales representative in decisions related to safety Outcome: Progressing Note: Evaluation of progress towards goal: fall bundle Problem: Infection Goal: Absence of infection during hospitalization Description: INTERVENTIONS 1. Assess and monitor for signs and symptoms of infection. 2. Monitor lab/diagnostic results. 3. Monitor all insertion sites i.e., indwelling lines, tubes and drains. 4. Monitor endotracheal (as able) and nasal secretions for changes in amount and color. 5. Administer medications as ordered. 6. Instruct and encourage patient and family to use good hand hygiene technique. 7. Identify and instruct patient/patient junior sales representative in use of appropriate isolation precautionsfor identified infection/symptoms. 8. Provide and discuss with patient/patient junior sales representative on educational MDRO sheet. 9. Encourage and monitor nutritional status daily and consult cleaner window if indicated. 10. Implement neutropenic guidelines as needed. Outcome: Progressing Note: Evaluation of progress towards goal: standard precautions Problem: Knowledge Deficit Goal: Patient/patient junior sales representative demonstrates understanding of disease process, treatment plan,medications, and discharge instructions Description: INTERVENTIONS 1. Complete learning assessment and assess knowledge base 2. Provide teaching at level of understanding 3. Provide teaching via preferred learning method(s) Outcome: Progressing Note: Evaluation of progress towards goal: will have knowledge of disease process and treatment by discharge Problem: Discharge Planning Goal: Discharge to post-acute care, other facility, or home with appropriate resources Description: Patient's goal is: INTERVENTIONS 1. Conduct assessment to determine patient/family and health care team treatment goals, and need for post-acute services based on payer coverage, community resources, and patient preferences, and barriers to discharge 2. Coordinate with Social work, Care Navigation, and Utilization Review to arrange appropriate level of services according to patient's needs based on patient preference and payer coverage in collaboration with the physician and health care team 3. Address psychosocial, clinical, and financial barriers to discharge as identified in assessment in conjunction with the patient/family and health care team 4. Consult appropriate ancillary services (i.e.. PT/OT/ST, etc) as needed 5. Communicate with and update the patient/family, physician, and health care team regarding progress on the discharge plan 6. Identify discharge learning needs (meds, wound care, etc). 7. Arrange for needed discharge transportation as appropriate Outcome: Progressing Note: Evaluation of progress towards goal: snf Problem: Neurological Deficit Goal: Neurological status is stable or improving Description: Patient's goal is: INTERVENTIONS 1. Complete Neurological assessment as indicated/ordered 2. Initiate measures to prevent increased intracranial pressure 3. Monitor and assess patient's level of consciousness, motor function, sensory function, and levelof assistance needed for ADLs 4. Monitor and report changes from baseline 5. Maintain blood pressure and fluid volume within ordered parameters to optimize cerebral perfusion and minimize risk of hemorrhage 6. Monitor labs and diagnostic tests 7. Administer anti-seizure medications as ordered 8. Maintain airway, patient safety and administer oxygen as ordered 9. Monitor patient for seizure activity, document and report duration and description of seizure toLIP 10. If seizure occurs, turn patient to side and suction secretions as needed 11. Reorient patient post seizure 12. Seizure pads on all 4 side rails 13. Instruct patient/family to notify RN of any seizure activity 14. Instruct patient/family to call for assistance with activity based on assessment 15. Utilize bleeding precautions if thrombolytic given Outcome: Progressing Note: Evaluation of progress towards goal: remains stable with goal of baseline Problem: Activity Intolerance/Impaired Mobility Goal: Mobility/activity is maintained at optimum level for patient Description: Patient's goal is: INTERVENTIONS 1. Assess and monitor patient barriers to mobility and need for assistive/adaptive devices 2. Assess patient's emotional response to limitations 3. Collaborate with interdisciplinary teams and initiate plans and interventions as ordered 4. Encourage independent activity per tolerance 5. Maintain proper body alignment 6. Perform active/passive ROM as tolerated/ordered 7. Coordinate activities to conserve energy 8. Reposition patient 9. Ensure adequate rest/sleep time Outcome: Progressing Note: Evaluation of progress towards goal: assist with mobility and encourage reposition and rom Problem: Communication Impairment Goal: Ability to express needs and understand communication Description: INTERVENTIONS 1. Assess patient's communication skills and ability to understand information 2. Provide alternate method of communication if needed i.e. ipad, sign board, pen/paper 3. Collaborate with Speech Therapy to develop effective communication strategies 4. Include patient/patient junior sales representative in decisions related to communication Outcome: Progressing Note: Evaluation of progress towards goal: assist with alternat communication Problem: Potential for Aspiration Goal: Patient's risk of aspiration is minimized Description: INTERVENTIONS 1. Assess and monitor vital signs, respiratory status, and labs (WBC) 2. Monitor for signs of aspiration (tachypnea, cough, rales, wheezing, cyanosis, fever) 3. Assess and monitor patient's ability to swallow 4. Place patient up in chair to eat if possible 5. Elevate head of bed 90 degrees to eat if unable to get patient up into chair 6. Supervise patient during oral intake 7. Instruct patient to take small bites 8. Instruct patient to take small single sips when taking liquids 9. Follow patient-specific strategies generated by speech pathologist 10. Complete bedside swallow screen if appropriate and take actions as indicated. 11. Administer prescribed medications and monitor effects Outcome: Progressing Note: Evaluation of progress towards goal: aspiration precautions Problem: Anxiety Goal: Anxiety is at manageable level Description: Patient's goal is: INTERVENTIONS 1. Assess and monitor patient's anxiety level 2. Monitor for signs and symptoms of anxiety both physical and emotional (heart palpitations, chestpain, shortness of breath, headaches, nausea, feeling jumpy, restlessness, irritable, apprehensive) 3. Reorient/orient patient to unit/surroundings 4. Explain treatment plan 5. Explain tests/procedures prior to initiation 6. Encourage participation in care 7. Encourage verbalization of concerns/fears 8. Assess coping mechanisms 9. Assist in developing anxiety-reducing skills 10. Administer complimentary therapies 11. Manage patient's environment 12. Limit or eliminate stimulants such as caffeine and nicotine 13. Collaborate with ancillary departments 14. Include patient/patient junior sales representative in decisions related to anxiety Outcome: Progressing Note: Evaluation of progress towards goal: listen and reassure Problem: Potential for Compromised Skin Integrity Goal: Skin integrity is maintained or improved Description: Patient's goal is: INTERVENTIONS 1. Perform initial skin assessment on admission and as needed 2. Turn patient every 2 hours and PRN 3. Relieve pressure to bony prominences 4. Avoid shearing 5. Keep skin clean and dry 6. Alternate a full bath with partial baths for elderly 7. Apply lotion/moisturizer on skin 8. Monitor patient's hygiene practices 9. Float heels 10. Collaborate with interdisciplinary team and initiate plans and interventions as needed Outcome: Progressing Note: Evaluation of progress towards goal: q2h turns Goal: Patient's nutritional intake is adequate Description: Patient's goal is: INTERVENTIONS 1. Assess and monitor food intake and supplements, patient food preferences, nausea, vomiting, labs, oral cavity (gums, teeth, tongue, mucosa), proper denture fit, and cultural beliefs 2. Monitor for signs of hypoglycemia and hyperglycemia 3. Collaborate with interdisciplinary team and initiate plan and interventions as ordered 4. Monitor patient's weight 5. Assist patient with meals/food selection 6. Assist patient with eating 7. Allow adequate time for meals 8. Provide pleasant environment during mealtime 9. Increase social contact during mealtimes 10. Plan activities to conserve energy 11. Encourage/perform oral hygiene as appropriate 12. Encourage patient to take dietary supplement as ordered 13. Collaborate with clinical cleaner window 14. Include patient/ patient's junior sales representative in decisions related to nutrition Outcome: Progressing Note: Evaluation of progress towards goal: I&O's Problem: Self Care Deficit Goal: Return ADL status to a safe level of function Description: Patient's goal is: INTERVENTIONS 1. Administer medication as ordered 2. Assess ADL deficits and provide assistive devices as needed 3. Obtain PT/OT consults as needed 4. Assist and instruct patient to increase activity and self care as tolerated Outcome: Progressing Note: Evaluation of progress towards goal: assist with adl's and encourage self care Problem: Moderate - High Risk Fall Score Description: Triangle Fall Score of =/> 25 or indicated by [facility] Assessment Goal: Patient should be free from fall Description: Interventions: 1. [place] to environment 2. Hourly rounds addressing the 4 P's (Pain, Positioning, Possessions, Potty) 3. Clear area of hazards (spills, clutter, electrical cords, unnecessary equipment) 4. Place equipment (bed & TV controls, call light, phone, urinal) within reach 5. Encourage patient to wear glasses and hearing aides as appropriate 6. Maintain bed in lowest position 7. Lock wheels on bed/wheelchair 8. Provide adequate lighting, including night light 9. Assess need for additional bedding, food/fluids, pain med's prior to sleep/routinely 10. Provide gripper slippers or personal non-skid footwear 11. Teach patient and patient junior sales representative to maintain environment for safety and engage in all aspects of fall prevention program 12. Remind patient to call for help before getting out of bed 13. Initiate bed/chair/exit alarms supportive devices as appropriate, (chair wedge, no-skid floor mat, raised edge mattress, hip protectors) 14. Locate patient bed assignment for optimal visualization 15. Evaluate and identify Safe Patient Handling Equipment needs 16. Provide supervision when out of bed or chair 17. Utilize gait belt as needed to assist with ambulation 18. Place adaptive equipment (cane, walker) within reach 19. Request patient junior sales representative bring adaptive equipment/mobility aids from home or obtain and provide as needed 20. Consult pharmacy regarding effects of med's affecting mobility, cognition, and alternatives 21. Obtain physician order for PT if risk factors associated with mobility are present 22. Obtain physician order for OT as appropriate 23. Utilize diversional activities 24. Educate patient and patient junior sales representative how to maintain a safe environment during visitationtimes (notify nurse prior to leaving bedside) 25. Consider appropriateness of medical or non-medical surgical tech 26. Set up voiding schedule as appropriate (every 2 hours) Outcome: Progressing Note: Evaluation of progress towards goal: fall bundle Problem: Multi-Drug Resistant Organism / Rule-Out Infection Prevention Goal: Prevent transmission of infection Description: INTERVENTIONS 1. Place patient in private room or in room with patient with same disease 2. Discard single-use items 3. Clean reusable equipment between patients 4. Wear gloves for direct and indirect contact with patient or contaminants 5. Change gloves between tasks and procedures 6. Wash hands before and after caring for each patient 7. Wear appropriate personal protective equipment in relation to the indicated isolation type 8. Place appropriate isolation signage on patient's door 9. Provide patient/ patient junior sales representative with isolation education. Outcome: Progressing Note: Evaluation of progress towards goal: standard precautions Problem: Safety - Medical Restraint Goal: Remains free of injury from restraints (Restraint for Interference with Radio Script Writer) Description: INTERVENTIONS: 1. Determine that other, less restrictive measures have been tried or would not be effective beforeapplying the restraint 2. Evaluate the patient's condition at the time of restraint application 3. Inform patient/family regarding the reason for restraint 4. Q2H: Monitor safety, Vital signs, psychosocial status, signs of injury, skin integrity, circulation, neurovascular status in affected extremities, respiratory status, comfort, nutrition and hydration, hygiene, ROM, elimination needs 5. Doctor will be notified of restraint 6. RN properly applies restraints per physician order Outcome: Progressing Note: Evaluation of progress towards goal: remain in place per orders and protocol Goal: Free from restraint(s) (Restraint for Interference with Radio Script Writer) Description: INTERVENTIONS: 1. Hourly rounds addressing the 4 P's (Pain, Positioning, Possessions, Potty) 2. Order is valid for the duration of the episode of care 3. Discontinue at the earliest possible time once the reason for restraints no longer exists 4. Identify and implement measures to help patient regain control 5. Food, fluids, and toilet offered at a minimum of every 2 hours 6. RN modifies the patient's plan of care by entering a problem statement related to safety; individualizes the safety outcome Outcome: Progressing Note: Evaluation of progress towards goal: per order and protocol * Plan of Care - Tramaine Seaman RN - 06/17/2025 6:37 AM EDT Problem: Pain Goal: Patient goal is pain score less than 4, able to rest, and participant in treatment plan as appropriate Description: INTERVENTIONS: 1. Encourage patient or legal junior sales representative to report early pain and ask for pain medicine when needed 2. Assess pain using appropriate pain scale and include the scale used when documenting 3. Administer analgesics based on type and severity of pain and evaluate response within appropriate time frame 4. Implement non-pharmacological measures as appropriate and evaluate response 5. Consider cultural and social influences on pain and pain management 6. Notify LIP if interventions ineffective or patient reports new pain 7. Monitor vital signs including pulse ox, end-tidal CO2 based on pain intervention 8. Reassess pain per policy 9. Teach patient or legal junior sales representative interventions for comforting Outcome: Progressing Note: Evaluation of progress towards goal: Assess pain using appropriate pain scale and include thescale used when documenting Problem: Safety Goal: Patient will be injury free during hospitalization Description: INTERVENTIONS: 1. Assess patient's risk for falls and implement fall prevention plan of care per policy 2. Provide and maintain a safe environment 3. Proper use of double Identifiers 4. Medication administration using the 5 rights 5. Hand hygiene 6. Specimens are labeled at the bedside 7. Instruct patient/ patient junior sales representative about use of safety devices 8. Include patient/ patient junior sales representative in decisions related to safety Outcome: Progressing Note: Evaluation of progress towards goal: Assess patient's risk for falls and implement fall prevention plan of care per policy Problem: Infection Goal: Absence of infection during hospitalization Description: INTERVENTIONS 1. Assess and monitor for signs and symptoms of infection. 2. Monitor lab/diagnostic results. 3. Monitor all insertion sites i.e., indwelling lines, tubes and drains. 4. Monitor endotracheal (as able) and nasal secretions for changes in amount and color. 5. Administer medications as ordered. 6. Instruct and encourage patient and family to use good hand hygiene technique. 7. Identify and instruct patient/patient junior sales representative in use of appropriate isolation precautionsfor identified infection/symptoms. 8. Provide and discuss with patient/patient junior sales representative on educational MDRO sheet. 9. Encourage and monitor nutritional status daily and consult cleaner window if indicated. 10. Implement neutropenic guidelines as needed. Outcome: Progressing Note: Evaluation of progress towards goal: Assess and monitor for signs and symptoms of infection. Problem: Knowledge Deficit Goal: Patient/patient junior sales representative demonstrates understanding of disease process, treatment plan,medications, and discharge instructions Description: INTERVENTIONS 1. Complete learning assessment and assess knowledge base 2. Provide teaching at level of understanding 3. Provide teaching via preferred learning method(s) Outcome: Progressing Note: Evaluation of progress towards goal: Provide teaching at level of understanding Problem: Discharge Planning Goal: Discharge to post-acute care, other facility, or home with appropriate resources Description: Patient's goal is: INTERVENTIONS 1. Conduct assessment to determine patient/family and health care team treatment goals, and need for post-acute services based on payer coverage, community resources, and patient preferences, and barriers to discharge 2. Coordinate with Social work, Care Navigation, and Utilization Review to arrange appropriate level of services according to patient's needs based on patient preference and payer coverage in collaboration with the physician and health care team 3. Address psychosocial, clinical, and financial barriers to discharge as identified in assessment in conjunction with the patient/family and health care team 4. Consult appropriate ancillary services (i.e.. PT/OT/ST, etc) as needed 5. Communicate with and update the patient/family, physician, and health care team regarding progress on the discharge plan 6. Identify discharge learning needs (meds, wound care, etc). 7. Arrange for needed discharge transportation as appropriate Outcome: Progressing Note: Evaluation of progress towards goal: Identify discharge learning needs (meds, wound care, etc). Problem: Neurological Deficit Goal: Neurological status is stable or improving Description: Patient's goal is: INTERVENTIONS 1. Complete Neurological assessment as indicated/ordered 2. Initiate measures to prevent increased intracranial pressure 3. Monitor and assess patient's level of consciousness, motor function, sensory function, and levelof assistance needed for ADLs 4. Monitor and report changes from baseline 5. Maintain blood pressure and fluid volume within ordered parameters to optimize cerebral perfusion and minimize risk of hemorrhage 6. Monitor labs and diagnostic tests 7. Administer anti-seizure medications as ordered 8. Maintain airway, patient safety and administer oxygen as ordered 9. Monitor patient for seizure activity, document and report duration and description of seizure toLIP 10. If seizure occurs, turn patient to side and suction secretions as needed 11. Reorient patient post seizure 12. Seizure pads on all 4 side rails 13. Instruct patient/family to notify RN of any seizure activity 14. Instruct patient/family to call for assistance with activity based on assessment 15. Utilize bleeding precautions if thrombolytic given Outcome: Progressing Note: Evaluation of progress towards goal: Complete Neurological assessment as indicated/ordered Problem: Activity Intolerance/Impaired Mobility Goal: Mobility/activity is maintained at optimum level for patient Description: Patient's goal is: INTERVENTIONS 1. Assess and monitor patient barriers to mobility and need for assistive/adaptive devices 2. Assess patient's emotional response to limitations 3. Collaborate with interdisciplinary teams and initiate plans and interventions as ordered 4. Encourage independent activity per tolerance 5. Maintain proper body alignment 6. Perform active/passive ROM as tolerated/ordered 7. Coordinate activities to conserve energy 8. Reposition patient 9. Ensure adequate rest/sleep time Outcome: Progressing Note: Evaluation of progress towards goal: Assess patient's emotional response to limitations Problem: Communication Impairment Goal: Ability to express needs and understand communication Description: INTERVENTIONS 1. Assess patient's communication skills and ability to understand information 2. Provide alternate method of communication if needed i.e. ipad, sign board, pen/paper 3. Collaborate with Speech Therapy to develop effective communication strategies 4. Include patient/patient junior sales representative in decisions related to communication Outcome: Progressing Note: Evaluation of progress towards goal: Collaborate with Speech Therapy to develop effective communication strategies Problem: Potential for Aspiration Goal: Patient's risk of aspiration is minimized Description: INTERVENTIONS 1. Assess and monitor vital signs, respiratory status, and labs (WBC) 2. Monitor for signs of aspiration (tachypnea, cough, rales, wheezing, cyanosis, fever) 3. Assess and monitor patient's ability to swallow 4. Place patient up in chair to eat if possible 5. Elevate head of bed 90 degrees to eat if unable to get patient up into chair 6. Supervise patient during oral intake 7. Instruct patient to take small bites 8. Instruct patient to take small single sips when taking liquids 9. Follow patient-specific strategies generated by speech pathologist 10. Complete bedside swallow screen if appropriate and take actions as indicated. 11. Administer prescribed medications and monitor effects Outcome: Progressing Note: Evaluation of progress towards goal: Monitor for signs of aspiration (tachypnea, cough, rales, wheezing, cyanosis, fever) Problem: Anxiety Goal: Anxiety is at manageable level Description: Patient's goal is: INTERVENTIONS 1. Assess and monitor patient's anxiety level 2. Monitor for signs and symptoms of anxiety both physical and emotional (heart palpitations, chestpain, shortness of breath, headaches, nausea, feeling jumpy, restlessness, irritable, apprehensive) 3. Reorient/orient patient to unit/surroundings 4. Explain treatment plan 5. Explain tests/procedures prior to initiation 6. Encourage participation in care 7. Encourage verbalization of concerns/fears 8. Assess coping mechanisms 9. Assist in developing anxiety-reducing skills 10. Administer complimentary therapies 11. Manage patient's environment 12. Limit or eliminate stimulants such as caffeine and nicotine 13. Collaborate with ancillary departments 14. Include patient/patient junior sales representative in decisions related to anxiety Outcome: Progressing Note: Evaluation of progress towards goal: Assess and monitor patient's anxiety level Problem: Potential for Compromised Skin Integrity Goal: Skin integrity is maintained or improved Description: Patient's goal is: INTERVENTIONS 1. Perform initial skin assessment on admission and as needed 2. Turn patient every 2 hours and PRN 3. Relieve pressure to bony prominences 4. Avoid shearing 5. Keep skin clean and dry 6. Alternate a full bath with partial baths for elderly 7. Apply lotion/moisturizer on skin 8. Monitor patient's hygiene practices 9. Float heels 10. Collaborate with interdisciplinary team and initiate plans and interventions as needed Outcome: Progressing Note: Evaluation of progress towards goal: Relieve pressure to bony prominences Goal: Patient's nutritional intake is adequate Description: Patient's goal is: INTERVENTIONS 1. Assess and monitor food intake and supplements, patient food preferences, nausea, vomiting, labs, oral cavity (gums, teeth, tongue, mucosa), proper denture fit, and cultural beliefs 2. Monitor for signs of hypoglycemia and hyperglycemia 3. Collaborate with interdisciplinary team and initiate plan and interventions as ordered 4. Monitor patient's weight 5. Assist patient with meals/food selection 6. Assist patient with eating 7. Allow adequate time for meals 8. Provide pleasant environment during mealtime 9. Increase social contact during mealtimes 10. Plan activities to conserve energy 11. Encourage/perform oral hygiene as appropriate 12. Encourage patient to take dietary supplement as ordered 13. Collaborate with clinical cleaner window 14. Include patient/ patient's junior sales representative in decisions related to nutrition Outcome: Progressing Note: Evaluation of progress towards goal: Perform initial skin assessment on admission and as needed Problem: Potential for Inadequate Tissue Perfusion - Venous Goal: Tissue perfusion is adequate - venous Description: Patient's goal is: INTERVENTIONS 1. Assess and monitor skin color and temperature, skin integrity, pulses, capillary refill, edema, pain in extremities and Homans' sign 2. Monitor for signs and symptoms (dyspnea, tachypnea, and tachycardia) 3. Encourage ambulation/activity per patient's tolerance and physician order 4. Elevate feet when in chair 5. Encourage patient to do ankle pump exercises 6. Apply anti-embolism stockings/devices as ordered Outcome: Progressing Note: Evaluation of progress towards goal: Elevate feet when in chair Problem: Self Care Deficit Goal: Return ADL status to a safe level of function Description: Patient's goal is: INTERVENTIONS 1. Administer medication as ordered 2. Assess ADL deficits and provide assistive devices as needed 3. Obtain PT/OT consults as needed 4. Assist and instruct patient to increase activity and self care as tolerated Outcome: Progressing Note: Evaluation of progress towards goal: Assess ADL deficits and provide assistive devices as needed Problem: Moderate - High Risk Fall Score Description: Long Fall Score of =/> 25 or indicated by [facility] Assessment Goal: Patient should be free from fall Description: Interventions: 1. [place] to environment 2. Hourly rounds addressing the 4 P's (Pain, Positioning, Possessions, Potty) 3. Clear area of hazards (spills, clutter, electrical cords, unnecessary equipment) 4. Place equipment (bed & TV controls, call light, phone, urinal) within reach 5. Encourage patient to wear glasses and hearing aides as appropriate 6. Maintain bed in lowest position 7. Lock wheels on bed/wheelchair 8. Provide adequate lighting, including night light 9. Assess need for additional bedding, food/fluids, pain med's prior to sleep/routinely 10. Provide gripper slippers or personal non-skid footwear 11. Teach patient and patient junior sales representative to maintain environment for safety and engage in all aspects of fall prevention program 12. Remind patient to call for help before getting out of bed 13. Initiate bed/chair/exit alarms supportive devices as appropriate, (chair wedge, no-skid floor mat, raised edge mattress, hip protectors) 14. Locate patient bed assignment for optimal visualization 15. Evaluate and identify Safe Patient Handling Equipment needs 16. Provide supervision when out of bed or chair 17. Utilize gait belt as needed to assist with ambulation 18. Place adaptive equipment (cane, walker) within reach 19. Request patient junior sales representative bring adaptive equipment/mobility aids from home or obtain and provide as needed 20. Consult pharmacy regarding effects of med's affecting mobility, cognition, and alternatives 21. Obtain physician order for PT if risk factors associated with mobility are present 22. Obtain physician order for OT as appropriate 23. Utilize diversional activities 24. Educate patient and patient junior sales representative how to maintain a safe environment during visitationtimes (notify nurse prior to leaving bedside) 25. Consider appropriateness of medical or non-medical surgical tech 26. Set up voiding schedule as appropriate (every 2 hours) Outcome: Progressing Note: Evaluation of progress towards goal: Hourly rounds addressing the 4 P's (Pain, Positioning, Possessions, Potty) Problem: Safety - Medical Restraint Goal: Remains free of injury from restraints (Restraint for Interference with Radio Script Writer) Description: INTERVENTIONS: 1. Determine that other, less restrictive measures have been tried or would not be effective beforeapplying the restraint 2. Evaluate the patient's condition at the time of restraint application 3. Inform patient/family regarding the reason for restraint 4. Q2H: Monitor safety, Vital signs, psychosocial status, signs of injury, skin integrity, circulation, neurovascular status in affected extremities, respiratory status, comfort, nutrition and hydration, hygiene, ROM, elimination needs 5. Doctor will be notified of restraint 6. RN properly applies restraints per physician order Outcome: Progressing Note: Evaluation of progress towards goal: Hourly rounds addressing the 4 P's (Pain, Positioning, Possessions, Potty) Goal: Free from restraint(s) (Restraint for Interference with Radio Script Writer) Description: INTERVENTIONS: 1. Hourly rounds addressing the 4 P's (Pain, Positioning, Possessions, Potty) 2. Order is valid for the duration of the episode of care 3. Discontinue at the earliest possible time once the reason for restraints no longer exists 4. Identify and implement measures to help patient regain control 5. Food, fluids, and toilet offered at a minimum of every 2 hours 6. RN modifies the patient's plan of care by entering a problem statement related to safety; individualizes the safety outcome Outcome: Progressing Note: Evaluation of progress towards goal: Hourly rounds addressing the 4 P's (Pain, Positioning, Possessions, Potty) Problem: Multi-Drug Resistant Organism / Rule-Out Infection Prevention Goal: Prevent transmission of infection Description: INTERVENTIONS 1. Place patient in private room or in room with patient with same disease 2. Discard single-use items 3. Clean reusable equipment between patients 4. Wear gloves for direct and indirect contact with patient or contaminants 5. Change gloves between tasks and procedures 6. Wash hands before and after caring for each patient 7. Wear appropriate personal protective equipment in relation to the indicated isolation type 8. Place appropriate isolation signage on patient's door 9. Provide patient/ patient junior sales representative with isolation education. Outcome: Progressing Note: Evaluation of progress towards goal: Wear gloves for direct and indirect contact with patientor contaminants * Plan of Care - Bella Cintron RN - 06/16/2025 4:08 PM EDT Problem: Pain Goal: Patient goal is pain score less than 4, able to rest, and participant in treatment plan as appropriate Description: INTERVENTIONS: 1. Encourage patient or legal junior sales representative to report early pain and ask for pain medicine when needed 2. Assess pain using appropriate pain scale and include the scale used when documenting 3. Administer analgesics based on type and severity of pain and evaluate response within appropriate time frame 4. Implement non-pharmacological measures as appropriate and evaluate response 5. Consider cultural and social influences on pain and pain management 6. Notify LIP if interventions ineffective or patient reports new pain 7. Monitor vital signs including pulse ox, end-tidal CO2 based on pain intervention 8. Reassess pain per policy 9. Teach patient or legal junior sales representative interventions for comforting Outcome: Progressing Note: Evaluation of progress towards goal: scheduled pain meds controlling pt pain Problem: Safety Goal: Patient will be injury free during hospitalization Description: INTERVENTIONS: 1. Assess patient's risk for falls and implement fall prevention plan of care per policy 2. Provide and maintain a safe environment 3. Proper use of double Identifiers 4. Medication administration using the 5 rights 5. Hand hygiene 6. Specimens are labeled at the bedside 7. Instruct patient/ patient junior sales representative about use of safety devices 8. Include patient/ patient junior sales representative in decisions related to safety Outcome: Progressing Note: Evaluation of progress towards goal: Pt safety maintained, hourly rounding, call light withinreach, bed alarm on, family at bedside * PT/OT/BLOCK HACKER - Danny Herrera PTA - 06/16/2025 10:33 AM EDT Physical Therapy PT Type of Visit: (P) Medical deferral Reason For Medical Deferral: (P) (immense fatigue, pt sleeping soundly.) Cosigned by Julee Huston PT at 06/16/2025 10:45 AM EDT Associated attestation - Julee Huston PT - 06/16/2025 10:45 AM EDT I have reviewed and agree with this note and education documentation for this visit. * PT/OT/BLOCK HACKER - BATOOL Brown/Brendon - 06/16/2025 10:32 AM EDT Occupational Therapy OT Type of Visit: Medical deferral Reason For Medical Deferral: (pt sleeping soundly; attempted several times to arouse pt however unable) Cosigned by Isa Andrade OT/L at 06/16/2025 2:00 PM EDT Associated attestation - Isa Andrade OT/L - 06/16/2025 2:00 PM EDT I have reviewed and agree with this note and education documentation for this visit. * Plan of Care - Serena Prince RN - 06/16/2025 3:10 AM EDT Problem: Safety - Medical Restraint Goal: Remains free of injury from restraints (Restraint for Interference with Radio Script Writer) Description: INTERVENTIONS: 1. Determine that other, less restrictive measures have been tried or would not be effective beforeapplying the restraint 2. Evaluate the patient's condition at the time of restraint application 3. Inform patient/family regarding the reason for restraint 4. Q2H: Monitor safety, Vital signs, psychosocial status, signs of injury, skin integrity, circulation, neurovascular status in affected extremities, respiratory status, comfort, nutrition and hydration, hygiene, ROM, elimination needs 5. Doctor will be notified of restraint 6. RN properly applies restraints per physician order Outcome: Progressing Note: Evaluation of progress towards goal: Determine that other, less restrictive measures have been tried or would not be effective before applying the restraint Goal: Free from restraint(s) (Restraint for Interference with Radio Script Writer) Description: INTERVENTIONS: 1. ONCE/SHIFT or MINIMUM Q12H: Assess and document the continuing need for restraints 2. Order is valid for the duration of the episode of care 3. Discontinue at the earliest possible time once the reason for restraints no longer exists 4. Identify and implement measures to help patient regain control 5. Food, fluids, and toilet offered at a minimum of every 2 hours 6. RN modifies the patient's plan of care by entering a problem statement related to safety; individualizes the safety outcome Outcome: Progressing Note: Evaluation of progress towards goal: Assess and document the continuing need for restraints 2. Order is valid for the duration of the episode of care * PT/OT/BLOCK HACKER - Bautista Doyle PTA - 06/15/2025 3:57 PM EDT Physical Therapy PT Type of Visit: (P) Medical deferral Reason For Medical Deferral: (P) Off unit Off Unit: (P) Testing (patient in nuclear medicine in AM and vascular upon attempt this PM. will check back on patient as appropriate and able.) Cosigned by Julee Huston PT at 06/16/2025 10:45 AM EDT Associated attestation - Julee Huston, PT - 06/16/2025 10:45 AM EDT I have reviewed and agree with this note and education documentation for this visit. * Plan of Care - Laura Jeff RN - 06/15/2025 12:15 PM EDT Problem: Pain Goal: Patient goal is pain score less than 4, able to rest, and participant in treatment plan as appropriate Description: INTERVENTIONS: 1. Encourage patient or legal junior sales representative to report early pain and ask for pain medicine when needed 2. Assess pain using appropriate pain scale and include the scale used when documenting 3. Administer analgesics based on type and severity of pain and evaluate response within appropriate time frame 4. Implement non-pharmacological measures as appropriate and evaluate response 5. Consider cultural and social influences on pain and pain management 6. Notify LIP if interventions ineffective or patient reports new pain 7. Monitor vital signs including pulse ox, end-tidal CO2 based on pain intervention 8. Reassess pain per policy 9. Teach patient or legal junior sales representative interventions for comforting Outcome: Progressing Note: Evaluation of progress towards goal: assess Problem: Safety Goal: Patient will be injury free during hospitalization Description: INTERVENTIONS: 1. Assess patient's risk for falls and implement fall prevention plan of care per policy 2. Provide and maintain a safe environment 3. Proper use of double Identifiers 4. Medication administration using the 5 rights 5. Hand hygiene 6. Specimens are labeled at the bedside 7. Instruct patient/ patient junior sales representative about use of safety devices 8. Include patient/ patient junior sales representative in decisions related to safety Outcome: Progressing Note: Evaluation of progress towards goal: assess, safety interventions maintained per policy Problem: Infection Goal: Absence of infection during hospitalization Description: INTERVENTIONS 1. Assess and monitor for signs and symptoms of infection. 2. Monitor lab/diagnostic results. 3. Monitor all insertion sites i.e., indwelling lines, tubes and drains. 4. Monitor endotracheal (as able) and nasal secretions for changes in amount and color. 5. Administer medications as ordered. 6. Instruct and encourage patient and family to use good hand hygiene technique. 7. Identify and instruct patient/patient junior sales representative in use of appropriate isolation precautionsfor identified infection/symptoms. 8. Provide and discuss with patient/patient junior sales representative on educational MDRO sheet. 9. Encourage and monitor nutritional status daily and consult cleaner window if indicated. 10. Implement neutropenic guidelines as needed. Outcome: Progressing Note: Evaluation of progress towards goal: assess Problem: Knowledge Deficit Goal: Patient/patient junior sales representative demonstrates understanding of disease process, treatment plan,medications, and discharge instructions Description: INTERVENTIONS 1. Complete learning assessment and assess knowledge base 2. Provide teaching at level of understanding 3. Provide teaching via preferred learning method(s) Outcome: Progressing Note: Evaluation of progress towards goal: assess Problem: Discharge Planning Goal: Discharge to post-acute care, other facility, or home with appropriate resources Description: Patient's goal is: INTERVENTIONS 1. Conduct assessment to determine patient/family and health care team treatment goals, and need for post-acute services based on payer coverage, community resources, and patient preferences, and barriers to discharge 2. Coordinate with Social work, Care Navigation, and Utilization Review to arrange appropriate level of services according to patient's needs based on patient preference and payer coverage in collaboration with the physician and health care team 3. Address psychosocial, clinical, and financial barriers to discharge as identified in assessment in conjunction with the patient/family and health care team 4. Consult appropriate ancillary services (i.e.. PT/OT/ST, etc) as needed 5. Communicate with and update the patient/family, physician, and health care team regarding progress on the discharge plan 6. Identify discharge learning needs (meds, wound care, etc). 7. Arrange for needed discharge transportation as appropriate Outcome: Progressing Note: Evaluation of progress towards goal: assess Problem: Neurological Deficit Goal: Neurological status is stable or improving Description: Patient's goal is: INTERVENTIONS 1. Complete Neurological assessment as indicated/ordered 2. Initiate measures to prevent increased intracranial pressure 3. Monitor and assess patient's level of consciousness, motor function, sensory function, and levelof assistance needed for ADLs 4. Monitor and report changes from baseline 5. Maintain blood pressure and fluid volume within ordered parameters to optimize cerebral perfusion and minimize risk of hemorrhage 6. Monitor labs and diagnostic tests 7. Administer anti-seizure medications as ordered 8. Maintain airway, patient safety and administer oxygen as ordered 9. Monitor patient for seizure activity, document and report duration and description of seizure toLIP 10. If seizure occurs, turn patient to side and suction secretions as needed 11. Reorient patient post seizure 12. Seizure pads on all 4 side rails 13. Instruct patient/family to notify RN of any seizure activity 14. Instruct patient/family to call for assistance with activity based on assessment 15. Utilize bleeding precautions if thrombolytic given Outcome: Progressing Note: Evaluation of progress towards goal: assess Problem: Activity Intolerance/Impaired Mobility Goal: Mobility/activity is maintained at optimum level for patient Description: Patient's goal is: INTERVENTIONS 1. Assess and monitor patient barriers to mobility and need for assistive/adaptive devices 2. Assess patient's emotional response to limitations 3. Collaborate with interdisciplinary teams and initiate plans and interventions as ordered 4. Encourage independent activity per tolerance 5. Maintain proper body alignment 6. Perform active/passive ROM as tolerated/ordered 7. Coordinate activities to conserve energy 8. Reposition patient 9. Ensure adequate rest/sleep time Outcome: Progressing Note: Evaluation of progress towards goal: assess Problem: Communication Impairment Goal: Ability to express needs and understand communication Description: INTERVENTIONS 1. Assess patient's communication skills and ability to understand information 2. Provide alternate method of communication if needed i.e. ipad, sign board, pen/paper 3. Collaborate with Speech Therapy to develop effective communication strategies 4. Include patient/patient junior sales representative in decisions related to communication Outcome: Progressing Note: Evaluation of progress towards goal: assess Problem: Potential for Aspiration Goal: Patient's risk of aspiration is minimized Description: INTERVENTIONS 1. Assess and monitor vital signs, respiratory status, and labs (WBC) 2. Monitor for signs of aspiration (tachypnea, cough, rales, wheezing, cyanosis, fever) 3. Assess and monitor patient's ability to swallow 4. Place patient up in chair to eat if possible 5. Elevate head of bed 90 degrees to eat if unable to get patient up into chair 6. Supervise patient during oral intake 7. Instruct patient to take small bites 8. Instruct patient to take small single sips when taking liquids 9. Follow patient-specific strategies generated by speech pathologist 10. Complete bedside swallow screen if appropriate and take actions as indicated. 11. Administer prescribed medications and monitor effects Outcome: Progressing Note: Evaluation of progress towards goal: assess Problem: Anxiety Goal: Anxiety is at manageable level Description: Patient's goal is: INTERVENTIONS 1. Assess and monitor patient's anxiety level 2. Monitor for signs and symptoms of anxiety both physical and emotional (heart palpitations, chestpain, shortness of breath, headaches, nausea, feeling jumpy, restlessness, irritable, apprehensive) 3. Reorient/orient patient to unit/surroundings 4. Explain treatment plan 5. Explain tests/procedures prior to initiation 6. Encourage participation in care 7. Encourage verbalization of concerns/fears 8. Assess coping mechanisms 9. Assist in developing anxiety-reducing skills 10. Administer complimentary therapies 11. Manage patient's environment 12. Limit or eliminate stimulants such as caffeine and nicotine 13. Collaborate with ancillary departments 14. Include patient/patient junior sales representative in decisions related to anxiety Outcome: Progressing Note: Evaluation of progress towards goal: assess Problem: Potential for Compromised Skin Integrity Goal: Skin integrity is maintained or improved Description: Patient's goal is: INTERVENTIONS 1. Perform initial skin assessment on admission and as needed 2. Turn patient every 2 hours and PRN 3. Relieve pressure to bony prominences 4. Avoid shearing 5. Keep skin clean and dry 6. Alternate a full bath with partial baths for elderly 7. Apply lotion/moisturizer on skin 8. Monitor patient's hygiene practices 9. Float heels 10. Collaborate with interdisciplinary team and initiate plans and interventions as needed Outcome: Progressing Note: Evaluation of progress towards goal: assess Goal: Patient's nutritional intake is adequate Description: Patient's goal is: INTERVENTIONS 1. Assess and monitor food intake and supplements, patient food preferences, nausea, vomiting, labs, oral cavity (gums, teeth, tongue, mucosa), proper denture fit, and cultural beliefs 2. Monitor for signs of hypoglycemia and hyperglycemia 3. Collaborate with interdisciplinary team and initiate plan and interventions as ordered 4. Monitor patient's weight 5. Assist patient with meals/food selection 6. Assist patient with eating 7. Allow adequate time for meals 8. Provide pleasant environment during mealtime 9. Increase social contact during mealtimes 10. Plan activities to conserve energy 11. Encourage/perform oral hygiene as appropriate 12. Encourage patient to take dietary supplement as ordered 13. Collaborate with clinical cleaner window 14. Include patient/ patient's junior sales representative in decisions related to nutrition Outcome: Progressing Note: Evaluation of progress towards goal: assess Problem: Potential for Inadequate Tissue Perfusion - Venous Goal: Tissue perfusion is adequate - venous Description: Patient's goal is: INTERVENTIONS 1. Assess and monitor skin color and temperature, skin integrity, pulses, capillary refill, edema, pain in extremities and Homans' sign 2. Monitor for signs and symptoms (dyspnea, tachypnea, and tachycardia) 3. Encourage ambulation/activity per patient's tolerance and physician order 4. Elevate feet when in chair 5. Encourage patient to do ankle pump exercises 6. Apply anti-embolism stockings/devices as ordered Outcome: Progressing Note: Evaluation of progress towards goal: assess Problem: Self Care Deficit Goal: Return ADL status to a safe level of function Description: Patient's goal is: INTERVENTIONS 1. Administer medication as ordered 2. Assess ADL deficits and provide assistive devices as needed 3. Obtain PT/OT consults as needed 4. Assist and instruct patient to increase activity and self care as tolerated Outcome: Progressing Note: Evaluation of progress towards goal: assess Problem: Moderate - High Risk Fall Score Description: Triangle Fall Score of =/> 25 or indicated by [facility] Assessment Goal: Patient should be free from fall Description: Interventions: 1. [place] to environment 2. Hourly rounds addressing the 4 P's (Pain, Positioning, Possessions, Potty) 3. Clear area of hazards (spills, clutter, electrical cords, unnecessary equipment) 4. Place equipment (bed & TV controls, call light, phone, urinal) within reach 5. Encourage patient to wear glasses and hearing aides as appropriate 6. Maintain bed in lowest position 7. Lock wheels on bed/wheelchair 8. Provide adequate lighting, including night light 9. Assess need for additional bedding, food/fluids, pain med's prior to sleep/routinely 10. Provide gripper slippers or personal non-skid footwear 11. Teach patient and patient junior sales representative to maintain environment for safety and engage in all aspects of fall prevention program 12. Remind patient to call for help before getting out of bed 13. Initiate bed/chair/exit alarms supportive devices as appropriate, (chair wedge, no-skid floor mat, raised edge mattress, hip protectors) 14. Locate patient bed assignment for optimal visualization 15. Evaluate and identify Safe Patient Handling Equipment needs 16. Provide supervision when out of bed or chair 17. Utilize gait belt as needed to assist with ambulation 18. Place adaptive equipment (cane, walker) within reach 19. Request patient junior sales representative bring adaptive equipment/mobility aids from home or obtain and provide as needed 20. Consult pharmacy regarding effects of med's affecting mobility, cognition, and alternatives 21. Obtain physician order for PT if risk factors associated with mobility are present 22. Obtain physician order for OT as appropriate 23. Utilize diversional activities 24. Educate patient and patient junior sales representative how to maintain a safe environment during visitationtimes (notify nurse prior to leaving bedside) 25. Consider appropriateness of medical or non-medical surgical tech 26. Set up voiding schedule as appropriate (every 2 hours) Outcome: Progressing Note: Evaluation of progress towards goal: assess Problem: Multi-Drug Resistant Organism / Rule-Out Infection Prevention Goal: Prevent transmission of infection Description: INTERVENTIONS 1. Place patient in private room or in room with patient with same disease 2. Discard single-use items 3. Clean reusable equipment between patients 4. Wear gloves for direct and indirect contact with patient or contaminants 5. Change gloves between tasks and procedures 6. Wash hands before and after caring for each patient 7. Wear appropriate personal protective equipment in relation to the indicated isolation type 8. Place appropriate isolation signage on patient's door 9. Provide patient/ patient junior sales representative with isolation education. Outcome: Progressing Note: Evaluation of progress towards goal: assess * Discharge Planning Note - Benigno Munoz RN - 06/15/2025 11:40 AM EDT Ongoing Assessment for Discharge Needs Reviewed discharge milestones and patient needs related to discharge plan. Current estimated discharge date of Jun 18, 2025 has been reviewed by treatment team. Ongoing Assessment for Discharge Needs Flowsheet Row Most Recent Value Referral To Community Referrals / Resources Provided Denies needs Services Requested Patient expects to be discharged to: SNF Does the patient wish to have family/friend/caregiver involved in their discharge planning? Yes Does the patient plan to return home to a community setting? No, patient to discharge to facility-based provider. See Discharge Disposition Discharge Disposition SNF SNF Name [facility] SN[facility] Accepted? Yes Does the patient need discharge transportation arranged? Yes Mobility issues discussed with transportation provider No Patient choice offered Yes List Provided Yes [facility] List Provided Nursing Home Facility Case discussed in daily transition rounds and chart reviewed by CN. Barriers to discharge include IVF, mayo, telesitter, venous duplex, renogram, hydration - level 3 mod thick spoon only Discharge Plan remains: SNF. [facility] will accept and is [facility]. CN spoke with patient's sister at bedside to confirm SNF choice. CN will continue to follow and is available should any further needs arise. - Benigno Munoz RN 06/15/25 11:40 AM * Query Response - Mable Butt MD - 06/15/2025 7:46 AM EDT Query Response Note AUTOMATED QUERY TEXT: Type of Epilepsy: This query seeks further clarification of documentation to reflect all conditionsthat you are monitoring, evaluating, treating or that extend hospitalization or utilize additional resources. Please utilize your independent clinical judgment when addressing the question(s) below. Please provide further specificity and note if with or without status epilepticus. Clinical indicators include: ams, altered mental status, fall, seizure disorder Options provided: -- Generalized epilepsy -- Epilepsy with intractable seizures -- Epilepsy with simple partial seizures -- Epilepsy with complex partial seizures -- Epilepsy with grand mal (tonic/clonic) seizures -- Other - I will add my own diagnosis -- Dismiss - Not applicable / Not valid AUTOMATED QUERY RESPONSE TEXT: Provoked generalized seizures due to unknown etiology Electronically signed by: Mable Butt MD 06/15/2025 7:44 AM * Plan of Care - Piter Perez RN - 06/14/2025 10:00 PM EDT Problem: Pain Goal: Patient goal is pain score less than 4, able to rest, and participant in treatment plan as appropriate Description: INTERVENTIONS: 1. Encourage patient or legal junior sales representative to report early pain and ask for pain medicine when needed 2. Assess pain using appropriate pain scale and include the scale used when documenting 3. Administer analgesics based on type and severity of pain and evaluate response within appropriate time frame 4. Implement non-pharmacological measures as appropriate and evaluate response 5. Consider cultural and social influences on pain and pain management 6. Notify LIP if interventions ineffective or patient reports new pain 7. Monitor vital signs including pulse ox, end-tidal CO2 based on pain intervention 8. Reassess pain per policy 9. Teach patient or legal junior sales representative interventions for comforting Outcome: Progressing Note: Evaluation of progress towards goal: Routine pain assessments provided and pain medication given as needed or upon request. Problem: Safety Goal: Patient will be injury free during hospitalization Description: INTERVENTIONS: 1. Assess patient's risk for falls and implement fall prevention plan of care per policy 2. Provide and maintain a safe environment 3. Proper use of double Identifiers 4. Medication administration using the 5 rights 5. Hand hygiene 6. Specimens are labeled at the bedside 7. Instruct patient/ patient junior sales representative about use of safety devices 8. Include patient/ patient junior sales representative in decisions related to safety Outcome: Progressing Note: Evaluation of progress towards goal: Patient safety maintained, call light in reach, area clear of hazards, hourly rounding continued, bed locked in lowest position, alarm on as applicable, nonskid socks on, safety education completed with patient/family alarms activated, no injuries noted at this time. Problem: Infection Goal: Absence of infection during hospitalization Description: INTERVENTIONS 1. Assess and monitor for signs and symptoms of infection. 2. Monitor lab/diagnostic results. 3. Monitor all insertion sites i.e., indwelling lines, tubes and drains. 4. Monitor endotracheal (as able) and nasal secretions for changes in amount and color. 5. Administer medications as ordered. 6. Instruct and encourage patient and family to use good hand hygiene technique. 7. Identify and instruct patient/patient junior sales representative in use of appropriate isolation precautionsfor identified infection/symptoms. 8. Provide and discuss with patient/patient junior sales representative on educational MDRO sheet. 9. Encourage and monitor nutritional status daily and consult cleaner window if indicated. 10. Implement neutropenic guidelines as needed. Outcome: Progressing Note: Evaluation of progress towards goal: Patient was assessed and monitored for signs/symptoms ofinfection. Laboratory and diagnostics results were monitored. Vital signs including temperature were monitored. Problem: Moderate - High Risk Fall Score Description: Long Fall Score of =/> 25 or indicated by [facility] Assessment Goal: Patient should be free from fall Description: Interventions: 1. [place] to environment 2. Hourly rounds addressing the 4 P's (Pain, Positioning, Possessions, Potty) 3. Clear area of hazards (spills, clutter, electrical cords, unnecessary equipment) 4. Place equipment (bed & TV controls, call light, phone, urinal) within reach 5. Encourage patient to wear glasses and hearing aides as appropriate 6. Maintain bed in lowest position 7. Lock wheels on bed/wheelchair 8. Provide adequate lighting, including night light 9. Assess need for additional bedding, food/fluids, pain med's prior to sleep/routinely 10. Provide gripper slippers or personal non-skid footwear 11. Teach patient and patient junior sales representative to maintain environment for safety and engage in all aspects of fall prevention program 12. Remind patient to call for help before getting out of bed 13. Initiate bed/chair/exit alarms supportive devices as appropriate, (chair wedge, no-skid floor mat, raised edge mattress, hip protectors) 14. Locate patient bed assignment for optimal visualization 15. Evaluate and identify Safe Patient Handling Equipment needs 16. Provide supervision when out of bed or chair 17. Utilize gait belt as needed to assist with ambulation 18. Place adaptive equipment (cane, walker) within reach 19. Request patient junior sales representative bring adaptive equipment/mobility aids from home or obtain and provide as needed 20. Consult pharmacy regarding effects of med's affecting mobility, cognition, and alternatives 21. Obtain physician order for PT if risk factors associated with mobility are present 22. Obtain physician order for OT as appropriate 23. Utilize diversional activities 24. Educate patient and patient junior sales representative how to maintain a safe environment during visitationtimes (notify nurse prior to leaving bedside) 25. Consider appropriateness of medical or non-medical surgical tech 26. Set up voiding schedule as appropriate (every 2 hours) Outcome: Progressing Note: Evaluation of progress towards goal: Environment frequently assessed and maintained for safety, alarms activated, no falls nor injuries, provided continuous education to promote safety. * Plan of Care - Clifford Mix RN - 06/14/2025 4:15 PM EDT Problem: Pain Goal: Patient goal is pain score less than 4, able to rest, and participant in treatment plan as appropriate Description: INTERVENTIONS: 1. Encourage patient or legal junior sales representative to report early pain and ask for pain medicine when needed 2. Assess pain using appropriate pain scale and include the scale used when documenting 3. Administer analgesics based on type and severity of pain and evaluate response within appropriate time frame 4. Implement non-pharmacological measures as appropriate and evaluate response 5. Consider cultural and social influences on pain and pain management 6. Notify LIP if interventions ineffective or patient reports new pain 7. Monitor vital signs including pulse ox, end-tidal CO2 based on pain intervention 8. Reassess pain per policy 9. Teach patient or legal junior sales representative interventions for comforting Outcome: Progressing Note: Evaluation of progress towards goal: Patient notifies nursing staff of pain characteristics, location, duration, and severity. Patient reports 0/10 pain. Problem: Safety Goal: Patient will be injury free during hospitalization Description: INTERVENTIONS: 1. Assess patient's risk for falls and implement fall prevention plan of care per policy 2. Provide and maintain a safe environment 3. Proper use of double Identifiers 4. Medication administration using the 5 rights 5. Hand hygiene 6. Specimens are labeled at the bedside 7. Instruct patient/ patient junior sales representative about use of safety devices 8. Include patient/ patient junior sales representative in decisions related to safety Outcome: Progressing Note: Evaluation of progress towards goal: Patient remains injury-free amid hospitalization due to proper safety precautions. Problem: Neurological Deficit Goal: Neurological status is stable or improving Description: Patient's goal is: INTERVENTIONS 1. Complete Neurological assessment as indicated/ordered 2. Initiate measures to prevent increased intracranial pressure 3. Monitor and assess patient's level of consciousness, motor function, sensory function, and levelof assistance needed for ADLs 4. Monitor and report changes from baseline 5. Maintain blood pressure and fluid volume within ordered parameters to optimize cerebral perfusion and minimize risk of hemorrhage 6. Monitor labs and diagnostic tests 7. Administer anti-seizure medications as ordered 8. Maintain airway, patient safety and administer oxygen as ordered 9. Monitor patient for seizure activity, document and report duration and description of seizure toLIP 10. If seizure occurs, turn patient to side and suction secretions as needed 11. Reorient patient post seizure 12. Seizure pads on all 4 side rails 13. Instruct patient/family to notify RN of any seizure activity 14. Instruct patient/family to call for assistance with activity based on assessment 15. Utilize bleeding precautions if thrombolytic given Outcome: Progressing Note: Evaluation of progress towards goal: Patient's neurological status remains stable via Q4 hourneurological checks. Clifford Mix RN * BLOCK HACKER Procedure Note - Gary Hernandez CCC-BLOCK HACKER - 06/14/2025 2:20 PM EDT Speech Therapy Videofluoroscopic Swallow Study Evaluation Discharge Recommendations for Safe Patient Transition BLOCK HACKER Discharge Disposition Recommendation: Post acute - moderate Current Impairments Informing Therapy Recommendation: Swallowing, Cognition, Communication needs Recommendations Diet Level: Level 4 Pureed Liquid Level: Level 3 Moderately Thick (BY SPOON ONLY!!) Compensatory Strategies: Small sips/bites, One sip/bite at a time, Follow aspiration precautions Supervision/Positioning: Patient at 90 degress for all PO intake (including medication), Patient toremain upright 15 minutes after meals, Supervise all PO intake, Assist with feeding Medications: In applesauce/puree Impressions Oral Phase: Moderate Pharyngeal Phase: Moderate Functional Oral Intake Scale: Total PO with multiple consistencies requiring special prep Plan Frequency: 3-4days/week Duration: until discharge Need for skilled Speech Language Pathology Services to address deficits in feeding/swallowing due to a 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 Pt educated on purpose of exam, contrast administration, and procedural techniques prior to initiation of exam. Pt educated on diet recommendations, plan of care, and encouraged to use safety strategies in order to maintain safe PO intake following exam. Prognosis Services: Skilled BLOCK HACKER services to address above deficits Prognosis/Potential: Good Considerations: Age, Cognition Assessment Baseline Assessment Allergies Marked As Reviewed: Complete Consistencies Tested Views: Lateral position Level 0 Thin: Spoon, Cup, Straw Level 2 Mildly Thick: Cup, Straw Level 3 Moderately Thick: Spoon Level 4 Pureed: Spoon Modified Barium Swallow Impairment Profile (MBSImP) Oral Impairment: Yes Component 1: Lip Closure: escape from interlabial space or lateral junction, no extension beyond rhett border Component 2: Tongue Control During Bolus Hold: posterior escape of less than half of bolus Component 3: Bolus Preparation/Mastication: logistical reasons Component 4: Bolus Transport/Lingual Motion: slowed tongue motion Component 5: Oral Residue: residue collection on oral structures Component 6: Initiation of Pharyngeal Swallow: bolus head in pyriforms Pharyngeal Impairment: Yes Component 7: Soft Palate Elevation: no bolus between soft palate/posterior pharyngeal wall Component 8: Laryngeal Elevation: partial superior movement of thyroid cartilage/partial approximation of arytenoids to epiglottic petiole Component 9: Anterior Hyoid Excursion: partial anterior movement Component 10: Epiglottic Movement: partial inversion Component 11: Laryngeal Vestibular Closure - Height of the Swallow: incomplete, narrow column of contrast/air in laryngeal vestibule Component 12: Pharyngeal Stripping Wave: present - diminished Component 13: Pharyngeal Contraction (A/P view only): could not be determined due to logistical reasons not related to physiologic impairment Component 14: Pharyngoesophageal Segment Opening: minimal distension/minimal duration, marked obstruction of flow Component 15: Tongue Base Retraction: narrow column of contrast/air between tongue base and posterior pharyngeal wall Component 16: Pharyngeal Residue: collection of residue within or on pharyngeal structures MBSImP Overall Impression Scores Oral Impairment Total: 11 Pharyngeal Impairment Total: 11 Penetration/Aspiration Scale Penetration/Aspiration Scale Performed: Yes Level 0 Thin: Contrast entered the airway, remained above the vocal folds, and was not ejected fromthe airway Level 2 Mildly Thick: Contrast entered the airway, contacted the vocal folds, and was not ejected from the airway Level 3 Moderately Thick: Contrast did not enter the airway Level 4 Pureed: Contrast did not enter the airway Trialed Compensatory Strategies Strategies Utilized: Small sips/bites Effective: Yes Pain Assessment Pain Assessment: No/denies pain Plan Diagnosis Code Swallowing: R13.12 Dysphagia, oropharyngeal phase, I69.191 Dysphagia following nontraumatic intracerebral hemorrhage + Speech Therapy Care Plan Speech Therapy Care Plan (Active) Template: ST - Dysphagia Problem: Swallowing Dates: Start: 06/06/25 Disciplines: BLOCK HACKER Goal: LTG: Patient will maintain adequate nutrition/ hydration with optimum safety and efficiency of swallowing function of oral intake without overt signs/symptoms of aspiration for the highest appropriate diet level Dates: Start: 06/06/25 Expected End: 07/12/25 Disciplines: BLOCK HACKER Outcomes Date/Time User Outcome 06/08/25 1029 XANDER Boland Not Progressing Goal: STG: Pt will tolerate ice chip/therapeutic water trials without overt s/s of aspiration with 90% accuracy with min cues and use of compensatory strategies Dates: Start: 06/06/25 Expected End: 07/12/25 Disciplines: BLOCK HACKER Outcomes Date/Time User Outcome 06/14/25 1152 XANDER Boland Not Progressing 06/12/25 0849 XANDER Boland Progressing Template: ST - Rehab Speech Problem: Auditory Comprehension Dates: Start: 06/06/25 Disciplines: BLOCK HACKER Goal: LTG: Patient will comprehend communication related to basic medical and social needs and utilize compensatory strategies to maintain safety in a functional living environment Dates: Start: 06/06/25 Expected End: 07/12/25 Disciplines: BLOCK HACKER Goal: STG: Patient will complete complex, paragraph level auditory comprehension tasks with 90% accuracy with minimal cueing Dates: Start: 06/06/25 Expected End: 07/12/25 Disciplines: BLOCK HACKER Problem: Cognitive Linguistic Dates: Start: 06/06/25 Disciplines: BLOCK HACKER Goal: LTG: Patient will display functional cognitive-linguistic skills to demonstrate appropriate communication and safety within daily activities in a functional living environment Dates: Start: 06/06/25 Expected End: 07/12/25 Disciplines: BLOCK HACKER Goal: STG: Patient will recall information discussed during therapy session via retelling/answeringquestions with 90% accuracy with minimal cueing Dates: Start: 06/06/25 Expected End: 07/12/25 Disciplines: BLOCK HACKER Problem: High Level Language Dates: Start: 06/06/25 Disciplines: BLOCK HACKER Goal: LTG: Patient will demonstrate use of self-awareness, goal setting, planning, initiation, self-monitoring and problem solving during daily activities to improve safety and awareness in a functional living environment Dates: Start: 06/06/25 Expected End: 07/12/25 Disciplines: BLOCK HACKER Goal: STG: Patient will demonstrate functional problem solving and safety awareness with 90% accuracy in daily living tasks in order to increase safe interactions with environment and decrease assistance from caregivers Dates: Start: 06/06/25 Expected End: 07/12/25 Disciplines: BLOCK HACKER Goal: STG: Patient will complete simple to complex organization, scheduling, planning and reasoningtasks to improve problem solving and safety awareness with 90% accuracy with minimal cueing Dates: Start: 06/06/25 Expected End: 07/12/25 Disciplines: BLOCK HACKER Problem: Verbal Expression Dates: Start: 06/06/25 Disciplines: BLOCK HACKER Goal: LTG: Patient will utilize compensatory strategies to communicate wants and needs effectively to different conversational partners, maintain safety and participate socially in a functional living environment Dates: Start: 06/06/25 Expected End: 07/12/25 Disciplines: BLOCK HACKER Goal: STG: Patient will complete simple to complex divergent and convergent naming tasks with 90% accuracy with minimal cueing to improve thought organization Dates: Start: 06/06/25 Expected End: 07/12/25 Disciplines: BLOCK HACKER Goal: STG: Patient will complete abstract naming tasks with 90% accuracy with minimum cueing to improve narrative expansion and discourse during activities of daily living Dates: Start: 06/06/25 Expected End: 07/12/25 Disciplines: BLOCK HACKER Speech Therapy Care Plan (Resolved) There are no resolved problems. Principal Problem: ICH (intracerebral hemorrhage) ([facility]) * PT/OT/BLOCK HACKER - XANDER Boland - 06/14/2025 11:52 AM EDT Speech Therapy Dysphagia Treatment Note Assessment: Current Diet Tolerance: Level 4 Pureed and no liquids Progress: improving Ok for repeat video swallow. Pain Assessment Pain Assessment: No/denies pain Recommendations Diet: Level 4 Pureed and no liquids Discharge: Post acute - moderate Precautions aspiration Plan: Plan of Care: continue with current plan of care Continue with Current Diet: yes Diet: Level 4 Pureed Liquids: No liquids Safety Strategies: medications in applesauce and small sips/bites, 1 at a time Subjective Setting: bedside Arrival Status: awake and alert Mental Status: confused/disoriented and pleasant Therapy Tolerance: good Change in Medical Status: no Received Recent Medications: no Objective NMES: No 1. Therapy Activity: Swallow Strategies Number of Trials: 15 Cueing/Assistance Required: moderate Cueing Type: verbal Diet Trials: Level 3 Moderately Thick and Level 4 Pureed Outcome: s/s aspiration present Plan Speech Therapy Care Plan Speech Therapy Care Plan (Active) Template: ST - Dysphagia Problem: Swallowing Dates: Start: 06/06/25 Disciplines: BLOCK HACKER Goal: LTG: Patient will maintain adequate nutrition/ hydration with optimum safety and efficiency of swallowing function of oral intake without overt signs/symptoms of aspiration for the highest appropriate diet level Dates: Start: 06/06/25 Expected End: 07/12/25 Disciplines: BLOCK HACKER Outcomes Date/Time User Outcome 06/08/25 1029 XANDER Boland Not Progressing Goal: STG: Pt will tolerate ice chip/therapeutic water trials without overt s/s of aspiration with 90% accuracy with min cues and use of compensatory strategies Dates: Start: 06/06/25 Expected End: 07/12/25 Disciplines: BLOCK HACKER Outcomes Date/Time User Outcome 06/14/25 1152 XANDER Boland Not Progressing 06/12/25 0849 Mofida Helo, CCC-BLOCK HACKER Progressing Template: ST - Rehab Speech Problem: Auditory Comprehension Dates: Start: 06/06/25 Disciplines: BLOCK HACKER Goal: LTG: Patient will comprehend communication related to basic medical and social needs and utilize compensatory strategies to maintain safety in a functional living environment Dates: Start: 06/06/25 Expected End: 07/12/25 Disciplines: BLOCK HACKER Goal: STG: Patient will complete complex, paragraph level auditory comprehension tasks with 90% accuracy with minimal cueing Dates: Start: 06/06/25 Expected End: 07/12/25 Disciplines: BLOCK HACKER Problem: Cognitive Linguistic Dates: Start: 06/06/25 Disciplines: BLOCK HACKER Goal: LTG: Patient will display functional cognitive-linguistic skills to demonstrate appropriate communication and safety within daily activities in a functional living environment Dates: Start: 06/06/25 Expected End: 07/12/25 Disciplines: BLOCK HACKER Goal: STG: Patient will recall information discussed during therapy session via retelling/answeringquestions with 90% accuracy with minimal cueing Dates: Start: 06/06/25 Expected End: 07/12/25 Disciplines: BLOCK HACKER Problem: High Level Language Dates: Start: 06/06/25 Disciplines: BLOCK HACKER Goal: LTG: Patient will demonstrate use of self-awareness, goal setting, planning, initiation, self-monitoring and problem solving during daily activities to improve safety and awareness in a functional living environment Dates: Start: 06/06/25 Expected End: 07/12/25 Disciplines: BLOCK HACKER Goal: STG: Patient will demonstrate functional problem solving and safety awareness with 90% accuracy in daily living tasks in order to increase safe interactions with environment and decrease assistance from caregivers Dates: Start: 06/06/25 Expected End: 07/12/25 Disciplines: BLOCK HACKER Goal: STG: Patient will complete simple to complex organization, scheduling, planning and reasoningtasks to improve problem solving and safety awareness with 90% accuracy with minimal cueing Dates: Start: 06/06/25 Expected End: 07/12/25 Disciplines: BLOCK HACKER Problem: Verbal Expression Dates: Start: 06/06/25 Disciplines: BLOCK HACKER Goal: LTG: Patient will utilize compensatory strategies to communicate wants and needs effectively to different conversational partners, maintain safety and participate socially in a functional living environment Dates: Start: 06/06/25 Expected End: 07/12/25 Disciplines: BLOCK HACKER Goal: STG: Patient will complete simple to complex divergent and convergent naming tasks with 90% accuracy with minimal cueing to improve thought organization Dates: Start: 06/06/25 Expected End: 07/12/25 Disciplines: BLOCK HACKER Goal: STG: Patient will complete abstract naming tasks with 90% accuracy with minimum cueing to improve narrative expansion and discourse during activities of daily living Dates: Start: 06/06/25 Expected End: 07/12/25 Disciplines: BLOCK HACKER Speech Therapy Care Plan (Resolved) There are no resolved problems. Principal Problem: ICH (intracerebral hemorrhage) ([facility]) * Discharge Planning Note - Shawna Corral - 06/14/2025 11:17 AM EDT DISCHARGE PLANNING NOTE Clinical updates sent to [facility], [place], [place] (P# ; F# ) * Discharge Planning Note - YUMIKO Plasencia - 06/14/2025 11:04 AM EDT Ongoing Assessment for Discharge Needs Reviewed discharge milestones and patient needs related to discharge plan. Current estimated discharge date of Jun 16, 2025 has been reviewed by treatment team. Ongoing Assessment for Discharge Needs Flowsheet Row Most Recent Value Referral To Community Referrals / Resources Provided Denies needs Services Requested Patient expects to be discharged to: SNF Does the patient wish to have family/friend/caregiver involved in their discharge planning? Yes Does the patient plan to return home to a community setting? No, patient to discharge to facility-based provider. See Discharge Disposition Discharge Disposition SNF Does the patient need discharge transportation arranged? Yes Mobility issues discussed with transportation provider No Patient choice offered Yes List Provided Yes [facility] List Provided Nursing Home Facility Discussed patient today during rounds. Plan- SNF. Barriers- tele-sitter, IVF, hydration plan, auth. - YUMIKO PLASENCIA 06/14/25 11:09 AM * PT/OT/BLOCK HACKER - Danny Herrera PTA - 06/14/2025 10:37 AM EDT Physical Therapy Treatment Discharge Recommendations for Safe Patient Transition PT Discharge Disposition Recommendation: Post acute - moderate PT Post Acute Moderate Rehab Needs: Recommend moderate intensity rehab, Tolerate 1-2 hrs of therapy3-5 days/wk, Subacute or chronic functional impairment 6 Clicks: Basic Mobility Turning from your back to your side while in a flat bed without using bed rails?: A lot Moving from lying on your back to sitting on side of flat bed without using bed rails?: A lot Moving to and from bed to a chair (including w/c)?: Total Standing up from a chair using your arms (e.g. w/c or bedside chair)?: A lot To walk in hospital room?: A lot Climbing 3-5 steps with a railing?: Total Scoring 6 Clicks: Basic Mobility Raw Score: 10 CMS G Code Modifier: CL Assessment Patient Assessment Patient Response to Treatment: Slow progress, decreased activity tolerance Visit RN Communication: Yes Medical Record Reviewed: Yes PT Type of Visit: Treatment Precautions Activity: ok for therapy per RN Clifford Equipment: gait belt, RW, telesitter, IV, mayo and bed alarm Telemetry/Refractory Specialist: Yes Oxygen Used: room air Other: Seizure precautions. High fall risk, confusion Pain Assessment Pain Assessment: No/denies pain 06/14/25 0923 UE ROM UE ROM exercises performed? Yes Shoulder flexion/extension x Shoulder horizontal abduction/adduction x Elbow flexion/extension x Repetitions 15 reps w/bilat UE w/2lbs; required restbreaks; required constant cuing to tend to task Bed Mobility Supine to Sit: Min assist (HOB elevated, assist for BLE movement.) Sit to Supine: Mod assist (assist for BLE elevation into bed) Transfers Sit to Stand: Mod assist Stand to Sit: Mod assist Other: cues for proper hand placement. Gait Base of Support: Narrow Pattern: Decreased shani, Antalgic gait, R Decreased heel strike, L Decreased heel strike, R Decreased foot clearance, L Decreased foot clearance, Forward trunk Gait Assistance: Min assist, Mod assist (varrying between Min to Mod) Assistive Device: Rolling walker Gait Distance: 40' x2 with seated rest break between distances Limiting Factors to Gait: Fatigue, Weakness, Decreased safety, Cognition/difficulty following directions Other: cues for proper RW use and safety. Balance Sitting Balance: Static: Fair Sitting Balance: Dynamic: Fair (-) Standing Balance: Static: Fair (-) Standing Balance: Dynamic: Poor Other: pt sat EOB for approx. 10 minutes and stood for approx. 6 minutes to improve balance Activity Tolerance Endurance: Tolerates >30 minutes activity with rest breaks Other: rest breaks as needed Plan Physical Therapy Care Plan Physical Therapy Care Plan (Active) Template: PT - Physical Therapy Problem: Activity Tolerance Dates: Start: 06/07/25 Disciplines: PT Goal: Tolerate 30 minutes of activity WITH rest breaks Dates: Start: 06/07/25 Expected End: 06/30/25 Description: Goal Description: For seated and standing activities for improved mobility Disciplines: PT Outcomes Date/Time User Outcome 06/14/25 1025 Danny Herrera PTA Progressing 06/12/25 1451 Danny Herrera PTA Progressing 06/09/25 1445 Stan Graham PTA Progressing Goal Note filed on 06/14/25 1025 by Danny Herrera PTA Evaluation of progress towards goal: Problem: Bed Mobility Dates: Start: 06/07/25 Disciplines: PT Goal: Patient will perform bed mobility with Minimum Assist Dates: Start: 06/07/25 Expected End: 06/30/25 Description: Goal Description: Disciplines: PT Outcomes Date/Time User Outcome 06/14/25 1025 Danny Herrera PTA Progressing 06/09/25 1445 Stan Graham PTA Progressing Goal Note filed on 06/14/25 1025 by Danny Herrera PTA Evaluation of progress towards goal: Problem: Gait Dates: Start: 06/07/25 Disciplines: PT Goal: Patient will perform gait with Minimum Assist Dates: Start: 06/07/25 Expected End: 06/30/25 Description: 100 feet with RW support for safe mobility Goal Description: Disciplines: PT Outcomes Date/Time User Outcome 06/14/25 1025 Danny Herrera PTA Progressing 06/12/25 1451 Danny Herrera PTA Progressing 06/09/25 1445 Stan Graham PTA Progressing Goal Note filed on 06/14/25 1025 by Danny Herrera PTA Evaluation of progress towards goal: Problem: Sitting Balance Dates: Start: 06/07/25 Disciplines: PT Goal: Improve balance to good Dates: Start: 06/07/25 Expected End: 06/30/25 Description: Static Dynamic for safe ADLs and transfers Disciplines: PT Outcomes Date/Time User Outcome 06/14/25 1025 Danny Herrera PTA Progressing 06/12/25 1451 Danny Herrera PTA Progressing 06/09/25 1445 Stan Graham PTA Progressing Goal Note filed on 06/14/25 1025 by Danny Herrera PTA Evaluation of progress towards goal: Problem: Standing Balance Dates: Start: 06/07/25 Disciplines: PT Goal: Improve balance to fair Dates: Start: 06/07/25 Expected End: 06/30/25 Description: Static Dynamic with walker support for safe mobility, decreased fall risk Disciplines: PT Outcomes Date/Time User Outcome 06/14/25 1025 Danny Herrera PTA Progressing 06/12/25 1451 Danny Herrera PTA Progressing 06/09/25 1445 Stan Graham PTA Progressing Goal Note filed on 06/14/25 1025 by Danny Herrera PTA Evaluation of progress towards goal: Problem: Transfers Dates: Start: 06/07/25 Disciplines: PT Goal: Patient will perform transfers with Minimum Assist Dates: Start: 06/07/25 Expected End: 06/30/25 Description: Goal Description: with RW support Disciplines: PT Outcomes Date/Time User Outcome 06/14/25 1025 Danny Herrera PTA Progressing 06/12/25 1451 Danny Herrera PTA Progressing 06/09/25 1445 Stan Graham PTA Progressing Goal Note filed on 06/14/25 1025 by Danny Herrera PTA Evaluation of progress towards goal: Physical Therapy Care Plan (Resolved) There are no resolved problems. Principal Problem: ICH (intracerebral hemorrhage) ([facility]) Cosigned by Yelitza Jauregui, PT at 06/14/2025 12:02 PM EDT Associated attestation - Yelitza Jauregui PT - 06/14/2025 12:02 PM EDT I have reviewed and agree with this note and education documentation for this visit. * PT/OT/BLOCK HACKER - Sue Hernandez, BATOOL/L - 06/14/2025 10:37 AM EDT Occupational Therapy Treatment Discharge Recommendations for Safe Patient Transition OT Discharge Disposition Recommendation: Post acute - moderate OT Post Acute Moderate Rehab Needs: Recommend moderate intensity rehab, Tolerate 1-2 hrs of therapy3-5 days/wk, Subacute or chronic functional impairment 6 Clicks: Daily Activity Putting on and taking off regular lower body clothing?: Total Bathing (including washing, rinsing, drying)?: A lot Toileting, which includes using toilet, bedpan or urinal?: Total Putting on and taking off regular upper body clothing?: A lot Taking care of personal grooming such as brushing teeth?: A lot Eating meals?: A little Scoring Daily Activity Raw Score: 11 CMS G Code Modifier: CL Therapy Plan Need for skilled Occupational Therapy to address deficits in ADL independence and functional mobility due to a status decline resulting from 06/14/25 0923 UE ROM UE ROM exercises performed? Yes Shoulder flexion/extension x Shoulder horizontal abduction/adduction x Elbow flexion/extension x Repetitions 15 reps w/bilat UE w/2lbs; required restbreaks; required constant cuing to tend to task OT Treatment/Interventions: ADL retraining, Functional transfer training, UE strengthening/ROM, Endurance training, Cognitive reorientation, Patient/family training, Equipment eval/education, Balance, Compensatory technique education, Functional activities OT Frequency: 4-5days/week Assessment Patient Assessment Patient Response to Treatment: Progressing toward goals Visit RN Communication: Yes Medical Record Reviewed: Yes OT Type of Visit: Treatment Precautions Activity: ok for therapy per GEOFF Horton Equipment: gait belt, RW, telesitter, IV, mayo and bed alarm Telemetry/Refractory Specialist: Yes Oxygen Used: room air Pain Assessment Pain Assessment: No/denies pain ADL / IADL Other: ADL's completed prior to tx; will cont to address Home Management - IADL Other: ADL's completed prior to tx; will cont to address Hearing / Speech / Vision Hearing: Within Functional Limits Speech: Garbled, Expressive aphasia, Receptive aphasia (pt is hypertalkative however speech is nonsensical) Cognition Overall Cognitive Status: Exceptions to Within Functional Limits Following Commands: Follows one step commands with repetition, Follows one step commands with increased time Safety Judgment: Decreased awareness of need for assistance, Decreased awareness of need for safety Awareness of Errors: Assistance required to correct errors made, Decreased awareness of errors, Assistance required to identify errors made Insight of Deficits: Decreased awareness of deficits Problem Solving: Reduced Bed Mobility Supine to Sit: Min assist, Verbal cues, Tactile cues (tactile cuing for use of rail) Sit to Supine: Mod assist Other: HOB slightly elevated and use of rail; Transfers Sit to Stand: Mod assist, Verbal cues Stand to Sit: Mod assist, Verbal cues Gait Gait Assistance: Min assist, Mod assist (varies between Benjamín and modA) Assistive Device: Rolling walker Gait Distance: 40ftx2; slow moving, decreased safety Limiting Factors to Gait: Fatigue, Weakness, Decreased safety, Cognition/difficulty following directions Balance Sitting Balance: Static: Fair Sitting Balance: Dynamic: (fair-) Standing Balance: Static: (fair- w/bilat UE support) Standing Balance: Dynamic: Poor (w/RW) Other: sat at EOB about 10mins in prep for mobility, slight posterior drift; stood about 6mins to increase endurance and steadiness Activity Tolerance Endurance: Tolerates >30 minutes activity with rest breaks Plan Occupational Therapy Care Plan Occupational Therapy Care Plan (Active) Template: OT - Occupational Therapy Problem: Activity Tolerance Dates: Start: 06/07/25 Disciplines: OT Goal: Tolerate 30 minutes of activity WITH rest breaks Dates: Start: 06/07/25 Expected End: 07/08/25 Description: Goal Description: Disciplines: OT Outcomes Date/Time User Outcome 06/14/25 1035 Sue Hernandez, BATOOL/L Progressing 06/12/25 1458 Phyllis Kunz SAMUEL/L Progressing 06/09/25 1503 Sue Hernandez, BATOOL/L Progressing Problem: Bathing LB Dates: Start: 06/07/25 Disciplines: OT Goal: Patient will perform bathing LB with Minimum Assist Dates: Start: 06/07/25 Expected End: 07/08/25 Description: Goal Description: Disciplines: OT Problem: Bathing UB Dates: Start: 06/07/25 Disciplines: OT Goal: Patient will perform bathing UB with Set-Up Dates: Start: 06/07/25 Expected End: 07/08/25 Description: Goal Description: Disciplines: OT Problem: Bed Mobility Dates: Start: 06/07/25 Disciplines: OT Goal: Patient will perform bed mobility with Contact Guard Dates: Start: 06/07/25 Expected End: 07/08/25 Description: Goal Description: Disciplines: OT Outcomes Date/Time User Outcome 06/14/25 1035 Sue Yousif-Rawls, BATOOL/L Progressing 06/09/25 1503 Sue Yousif-Rawls, BATOOL/L Progressing Problem: Cognition Dates: Start: 06/07/25 Disciplines: OT Goal: Improve cognition Dates: Start: 06/07/25 Expected End: 07/08/25 Description: Follow one step commands 100% of the time Disciplines: OT Outcomes Date/Time User Outcome 06/14/25 1035 Sue Yousif-Rawls, BATOOL/L Not Progressing 06/12/25 1458 Phyllis Kunz, SAMUEL/L Progressing 06/09/25 1503 Sue Yousif-Rawls, TECHNICAL SUPPORT COORDINATOR/L Progressing Problem: Dressing LB Dates: Start: 06/07/25 Disciplines: OT Goal: Patient will perform dressing LB with Minimum Assist Dates: Start: 06/07/25 Expected End: 07/08/25 Description: Goal Description: Disciplines: OT Problem: Dressing UB Dates: Start: 06/07/25 Disciplines: OT Goal: Patient will perform dressing UB with Set-Up Dates: Start: 06/07/25 Expected End: 07/08/25 Description: Goal Description: Disciplines: OT Problem: Functional Mobility Dates: Start: 06/07/25 Disciplines: OT Goal: Patient will perform functional mobility with Minimum Assist Dates: Start: 06/07/25 Expected End: 07/08/25 Description: Goal Description: Disciplines: OT Outcomes Date/Time User Outcome 06/14/25 1035 Sue Yousif-Rawls, BATOOL/L Progressing 06/12/25 1458 Phyllis Kunz, SAMUEL/L Progressing 06/09/25 1503 Sue Yousif-Rawls, BATOOL/L Progressing Problem: Grooming Dates: Start: 06/07/25 Disciplines: OT Goal: Patient will perform grooming with Minimum Assist Dates: Start: 06/07/25 Expected End: 07/08/25 Description: Goal Description: Disciplines: OT Outcomes Date/Time User Outcome 06/12/25 1458 Phyllis Kunz, SAMUEL/L Progressing 06/09/25 1503 Sue Yousif-Rawls, BATOOL/L Progressing Problem: Home Management Dates: Start: 06/07/25 Disciplines: OT Goal: Patient will perform home management with Minimum Assist Dates: Start: 06/07/25 Expected End: 07/08/25 Description: Goal Description: Disciplines: OT Problem: Sitting Balance Dates: Start: 06/07/25 Disciplines: OT Goal: Improve balance to good Dates: Start: 06/07/25 Expected End: 07/08/25 Description: Good dynamic balance, Disciplines: OT Outcomes Date/Time User Outcome 06/14/25 1035 Sue Yousif-Rawls, BATOOL/L Progressing 06/12/25 1458 Phyllis Dickeyllinger, SAMUEL/L Progressing 06/09/25 1503 Sue Yousif-Rawls, TECHNICAL SUPPORT COORDINATOR/L Progressing Problem: Standing Balance Dates: Start: 06/07/25 Disciplines: OT Goal: Improve balance to good Dates: Start: 06/07/25 Expected End: 07/08/25 Description: Good dynamic balance. Disciplines: OT Outcomes Date/Time User Outcome 06/14/25 1035 Sue Yousif-Rawls, TECHNICAL SUPPORT COORDINATOR/L Progressing 06/12/25 1458 Phyllis Stinger, SAMUEL/L Progressing 06/09/25 1503 Sue Yousif-Rawls, BATOOL/L Progressing Problem: Strength Dates: Start: 06/07/25 Disciplines: OT Goal: Improve strength Dates: Start: 06/07/25 Expected End: 07/08/25 Description: Improve bilateral upper extremity strength to be able to complete full ADL tasks without rest breaks. Disciplines: OT Outcomes Date/Time User Outcome 06/14/25 1035 Sue Yousif-Rwals, TECHNICAL SUPPORT COORDINATOR/L Progressing 06/14/25 1033 Sue Yousif-Rawls, TECHNICAL SUPPORT COORDINATOR/L Progressing 06/12/25 1458 Phyllis Stinger, SAMUEL/L Progressing 06/09/25 1503 Sue Yousif-Rawls, TECHNICAL SUPPORT COORDINATOR/L Progressing Problem: Toilet Transfers Dates: Start: 06/07/25 Disciplines: OT Goal: Patient will perform toilet transfers with Minimum Assist Dates: Start: 06/07/25 Expected End: 07/08/25 Description: Goal Description: Disciplines: OT Problem: Toileting Dates: Start: 06/07/25 Disciplines: OT Goal: Patient will perform toileting with Minimum Assist Dates: Start: 06/07/25 Expected End: 07/08/25 Description: Goal Description: Disciplines: OT Outcomes Date/Time User Outcome 06/09/25 1503 Sue Yousif-Rawls, TECHNICAL SUPPORT COORDINATOR/L Not Progressing Problem: Transfers Dates: Start: 06/07/25 Disciplines: OT Goal: Patient will perform transfers with Contact Guard Dates: Start: 06/07/25 Expected End: 07/08/25 Description: Goal Description: Disciplines: OT Outcomes Date/Time User Outcome 06/14/25 1035 Sue Yousif-Rawls, TECHNICAL SUPPORT COORDINATOR/L Progressing 06/12/25 1458 Phyllis Dickeydelmar, SAMUEL/L Progressing 06/09/25 1503 Sue Yousif-Rawls, TECHNICAL SUPPORT COORDINATOR/L Progressing Occupational Therapy Care Plan (Resolved) There are no resolved problems. Principal Problem: ICH (intracerebral hemorrhage) ([facility]) Cosigned by Holli Weston OTR/L at 06/14/2025 12:48 PM EDT Associated attestation - Holli Weston OTR/L - 06/14/2025 12:48 PM EDT I have reviewed and agree with this note and education documentation for this visit. * Plan of Care - Piter Perez RN - 06/13/2025 10:00 PM EDT Problem: Pain Goal: Patient goal is pain score less than 4, able to rest, and participant in treatment plan as appropriate Description: INTERVENTIONS: 1. Encourage patient or legal junior sales representative to report early pain and ask for pain medicine when needed 2. Assess pain using appropriate pain scale and include the scale used when documenting 3. Administer analgesics based on type and severity of pain and evaluate response within appropriate time frame 4. Implement non-pharmacological measures as appropriate and evaluate response 5. Consider cultural and social influences on pain and pain management 6. Notify LIP if interventions ineffective or patient reports new pain 7. Monitor vital signs including pulse ox, end-tidal CO2 based on pain intervention 8. Reassess pain per policy 9. Teach patient or legal junior sales representative interventions for comforting Outcome: Progressing Note: Evaluation of progress towards goal: Routine pain assessments provided and pain medication given as needed or upon request. Problem: Safety Goal: Patient will be injury free during hospitalization Description: INTERVENTIONS: 1. Assess patient's risk for falls and implement fall prevention plan of care per policy 2. Provide and maintain a safe environment 3. Proper use of double Identifiers 4. Medication administration using the 5 rights 5. Hand hygiene 6. Specimens are labeled at the bedside 7. Instruct patient/ patient junior sales representative about use of safety devices 8. Include patient/ patient junior sales representative in decisions related to safety Outcome: Not Progressing Note: Evaluation of progress towards goal: Patient safety maintained, call light in reach, area clear of hazards, hourly rounding continued, bed locked in lowest position, alarm on as applicable, nonskid socks on, safety education completed with patient/family alarms activated, no injuries noted at this time. Problem: Infection Goal: Absence of infection during hospitalization Description: INTERVENTIONS 1. Assess and monitor for signs and symptoms of infection. 2. Monitor lab/diagnostic results. 3. Monitor all insertion sites i.e., indwelling lines, tubes and drains. 4. Monitor endotracheal (as able) and nasal secretions for changes in amount and color. 5. Administer medications as ordered. 6. Instruct and encourage patient and family to use good hand hygiene technique. 7. Identify and instruct patient/patient junior sales representative in use of appropriate isolation precautionsfor identified infection/symptoms. 8. Provide and discuss with patient/patient junior sales representative on educational MDRO sheet. 9. Encourage and monitor nutritional status daily and consult cleaner window if indicated. 10. Implement neutropenic guidelines as needed. Outcome: Progressing Note: Evaluation of progress towards goal: Patient was assessed and monitored for signs/symptoms ofinfection. Laboratory and diagnostics results were monitored. Vital signs including temperature were monitored. Problem: Knowledge Deficit Goal: Patient/patient junior sales representative demonstrates understanding of disease process, treatment plan,medications, and discharge instructions Description: INTERVENTIONS 1. Complete learning assessment and assess knowledge base 2. Provide teaching at level of understanding 3. Provide teaching via preferred learning method(s) Note: Evaluation of progress towards goal: Problem: Neurological Deficit Goal: Neurological status is stable or improving Description: Patient's goal is: INTERVENTIONS 1. Complete Neurological assessment as indicated/ordered 2. Initiate measures to prevent increased intracranial pressure 3. Monitor and assess patient's level of consciousness, motor function, sensory function, and levelof assistance needed for ADLs 4. Monitor and report changes from baseline 5. Maintain blood pressure and fluid volume within ordered parameters to optimize cerebral perfusion and minimize risk of hemorrhage 6. Monitor labs and diagnostic tests 7. Administer anti-seizure medications as ordered 8. Maintain airway, patient safety and administer oxygen as ordered 9. Monitor patient for seizure activity, document and report duration and description of seizure toLIP 10. If seizure occurs, turn patient to side and suction secretions as needed 11. Reorient patient post seizure 12. Seizure pads on all 4 side rails 13. Instruct patient/family to notify RN of any seizure activity 14. Instruct patient/family to call for assistance with activity based on assessment 15. Utilize bleeding precautions if thrombolytic given Outcome: Progressing Note: Evaluation of progress towards goal: Patient's neurological status has been routinely assessed throughout this shift. Patient's neurological deficit is currently stable with no change. Problem: Potential for Compromised Skin Integrity Goal: Skin integrity is maintained or improved Description: Patient's goal is: INTERVENTIONS 1. Perform initial skin assessment on admission and as needed 2. Turn patient every 2 hours and PRN 3. Relieve pressure to bony prominences 4. Avoid shearing 5. Keep skin clean and dry 6. Alternate a full bath with partial baths for elderly 7. Apply lotion/moisturizer on skin 8. Monitor patient's hygiene practices 9. Float heels 10. Collaborate with interdisciplinary team and initiate plans and interventions as needed Outcome: Progressing Note: Evaluation of progress towards goal: Patient offered to be repositioned Q2 hrs. Patient was monitored for s/s of skin breakdown and abnormal findings was treated per doctor's orders and/or facility protocol and communicated with treatment team for continuum of care. . Goal: Patient's nutritional intake is adequate Description: Patient's goal is: INTERVENTIONS 1. Assess and monitor food intake and supplements, patient food preferences, nausea, vomiting, labs, oral cavity (gums, teeth, tongue, mucosa), proper denture fit, and cultural beliefs 2. Monitor for signs of hypoglycemia and hyperglycemia 3. Collaborate with interdisciplinary team and initiate plan and interventions as ordered 4. Monitor patient's weight 5. Assist patient with meals/food selection 6. Assist patient with eating 7. Allow adequate time for meals 8. Provide pleasant environment during mealtime 9. Increase social contact during mealtimes 10. Plan activities to conserve energy 11. Encourage/perform oral hygiene as appropriate 12. Encourage patient to take dietary supplement as ordered 13. Collaborate with clinical cleaner window 14. Include patient/ patient's junior sales representative in decisions related to nutrition Outcome: Progressing Note: Evaluation of progress towards goal: Nutritional intake is being assessed and monitored. Patient is currently tolerating their ordered diet. Problem: Moderate - High Risk Fall Score Description: Long Fall Score of =/> 25 or indicated by [facility] Assessment Goal: Patient should be free from fall Description: Interventions: 1. [place] to environment 2. Hourly rounds addressing the 4 P's (Pain, Positioning, Possessions, Potty) 3. Clear area of hazards (spills, clutter, electrical cords, unnecessary equipment) 4. Place equipment (bed & TV controls, call light, phone, urinal) within reach 5. Encourage patient to wear glasses and hearing aides as appropriate 6. Maintain bed in lowest position 7. Lock wheels on bed/wheelchair 8. Provide adequate lighting, including night light 9. Assess need for additional bedding, food/fluids, pain med's prior to sleep/routinely 10. Provide gripper slippers or personal non-skid footwear 11. Teach patient and patient junior sales representative to maintain environment for safety and engage in all aspects of fall prevention program 12. Remind patient to call for help before getting out of bed 13. Initiate bed/chair/exit alarms supportive devices as appropriate, (chair wedge, no-skid floor mat, raised edge mattress, hip protectors) 14. Locate patient bed assignment for optimal visualization 15. Evaluate and identify Safe Patient Handling Equipment needs 16. Provide supervision when out of bed or chair 17. Utilize gait belt as needed to assist with ambulation 18. Place adaptive equipment (cane, walker) within reach 19. Request patient junior sales representative bring adaptive equipment/mobility aids from home or obtain and provide as needed 20. Consult pharmacy regarding effects of med's affecting mobility, cognition, and alternatives 21. Obtain physician order for PT if risk factors associated with mobility are present 22. Obtain physician order for OT as appropriate 23. Utilize diversional activities 24. Educate patient and patient junior sales representative how to maintain a safe environment during visitationtimes (notify nurse prior to leaving bedside) 25. Consider appropriateness of medical or non-medical surgical tech 26. Set up voiding schedule as appropriate (every 2 hours) Outcome: Progressing Note: Evaluation of progress towards goal: Environment frequently assessed and maintained for safety, alarms activated, no falls nor injuries, provided continuous education to promote safety. * Plan of Care - Clifford Mix RN - 06/13/2025 5:13 PM EDT Problem: Safety - Medical Restraint Goal: Remains free of injury from restraints (Restraint for Interference with Radio Script Writer) Description: INTERVENTIONS: 1. Determine that other, less restrictive measures have been tried or would not be effective beforeapplying the restraint 2. Evaluate the patient's condition at the time of restraint application 3. Inform patient/family regarding the reason for restraint 4. Q2H: Monitor safety, Vital signs, psychosocial status, signs of injury, skin integrity, circulation, neurovascular status in affected extremities, respiratory status, comfort, nutrition and hydration, hygiene, ROM, elimination needs 5. Doctor will be notified of restraint 6. RN properly applies restraints per physician order Outcome: Completed Note: Evaluation of progress towards goal: Patient no longer in restraints. Goal: Free from restraint(s) (Restraint for Interference with Radio Script Writer) Description: INTERVENTIONS: 1. ONCE/SHIFT or MINIMUM Q12H: Assess and document the continuing need for restraints 2. Order is valid for the duration of the episode of care 3. Discontinue at the earliest possible time once the reason for restraints no longer exists 4. Identify and implement measures to help patient regain control 5. Food, fluids, and toilet offered at a minimum of every 2 hours 6. RN modifies the patient's plan of care by entering a problem statement related to safety; individualizes the safety outcome Outcome: Completed Note: Evaluation of progress towards goal: Patient no longer in restraints. Clifford Mix RN * Plan of Care - Clifford Mix RN - 06/13/2025 5:10 PM EDT Problem: Pain Goal: Patient goal is pain score less than 4, able to rest, and participant in treatment plan as appropriate Description: INTERVENTIONS: 1. Encourage patient or legal junior sales representative to report early pain and ask for pain medicine when needed 2. Assess pain using appropriate pain scale and include the scale used when documenting 3. Administer analgesics based on type and severity of pain and evaluate response within appropriate time frame 4. Implement non-pharmacological measures as appropriate and evaluate response 5. Consider cultural and social influences on pain and pain management 6. Notify LIP if interventions ineffective or patient reports new pain 7. Monitor vital signs including pulse ox, end-tidal CO2 based on pain intervention 8. Reassess pain per policy 9. Teach patient or legal junior sales representative interventions for comforting Outcome: Progressing Note: Evaluation of progress towards goal: Patient notifies nursing staff of pain characteristics, location, duration, and severity. Patient reports 0/10 pain. Problem: Safety Goal: Patient will be injury free during hospitalization Description: INTERVENTIONS: 1. Assess patient's risk for falls and implement fall prevention plan of care per policy 2. Provide and maintain a safe environment 3. Proper use of double Identifiers 4. Medication administration using the 5 rights 5. Hand hygiene 6. Specimens are labeled at the bedside 7. Instruct patient/ patient junior sales representative about use of safety devices 8. Include patient/ patient junior sales representative in decisions related to safety Outcome: Progressing Note: Evaluation of progress towards goal: Patient remains injury-free amid hospitalization due to proper safety precautions. Problem: Neurological Deficit Goal: Neurological status is stable or improving Description: Patient's goal is: INTERVENTIONS 1. Complete Neurological assessment as indicated/ordered 2. Initiate measures to prevent increased intracranial pressure 3. Monitor and assess patient's level of consciousness, motor function, sensory function, and levelof assistance needed for ADLs 4. Monitor and report changes from baseline 5. Maintain blood pressure and fluid volume within ordered parameters to optimize cerebral perfusion and minimize risk of hemorrhage 6. Monitor labs and diagnostic tests 7. Administer anti-seizure medications as ordered 8. Maintain airway, patient safety and administer oxygen as ordered 9. Monitor patient for seizure activity, document and report duration and description of seizure toLIP 10. If seizure occurs, turn patient to side and suction secretions as needed 11. Reorient patient post seizure 12. Seizure pads on all 4 side rails 13. Instruct patient/family to notify RN of any seizure activity 14. Instruct patient/family to call for assistance with activity based on assessment 15. Utilize bleeding precautions if thrombolytic given Outcome: Progressing Note: Evaluation of progress towards goal: Patient's neurological status remains stable via Q4 hourneurological checks. Clifford Mix, RN * PT/OT/BLOCK HACKER - BATOOL Brown/L - 06/13/2025 1:53 PM EDT Occupational Therapy OT Type of Visit: Medical deferral Reason For Medical Deferral: (pt w/other staff; waited about 10mins; will check back as able) Cosigned by Dixon Murphy OTR/L at 06/13/2025 2:42 PM EDT Associated attestation - Dixon Murphy OTR/[place] - 06/13/2025 2:42 PM EDT I have reviewed and agree with this note and education documentation for this visit. * PT/OT/BLOCK HACKER - Danny Herrera PTA - 06/13/2025 1:52 PM EDT Physical Therapy PT Type of Visit: (P) Medical deferral Reason For Medical Deferral: (P) (with other staff, will continue per POC as able.) Cosigned by Yelitza Jauregui PT at 06/13/2025 3:05 PM EDT Associated attestation - Yelitza Jauregui PT - 06/13/2025 3:05 PM EDT I have reviewed and agree with this note and education documentation for this visit. * Discharge Planning Note - YUMIKO Plasencia - 06/13/2025 1:41 PM EDT Ongoing Assessment for Discharge Needs Reviewed discharge milestones and patient needs related to discharge plan. Current estimated discharge date of Jun 15, 2025 has been reviewed by treatment team. Ongoing Assessment for Discharge Needs Flowsheet Row Most Recent Value Referral To Community Referrals / Resources Provided Denies needs Services Requested Patient expects to be discharged to: SNF Does the patient wish to have family/friend/caregiver involved in their discharge planning? Yes Does the patient plan to return home to a community setting? No, patient to discharge to facility-based provider. See Discharge Disposition Discharge Disposition SNF Does the patient need discharge transportation arranged? Yes Mobility issues discussed with transportation provider No Patient choice offered Yes List Provided Yes [facility] List Provided Nursing Home Facility Discussed patient today during rounds. Plan- SNF. Barriers- awaiting SNF acceptance, tele-sitter, auth, IVF, hydration plan. - YUMIKO PLASENCIA 06/13/25 1:42 PM * Plan of Care - Keerthi Diaz RN - 06/13/2025 1:55 AM EDT Problem: Pain Goal: Patient goal is pain score less than 4, able to rest, and participant in treatment plan as appropriate Description: INTERVENTIONS: 1. Encourage patient or legal junior sales representative to report early pain and ask for pain medicine when needed 2. Assess pain using appropriate pain scale and include the scale used when documenting 3. Administer analgesics based on type and severity of pain and evaluate response within appropriate time frame 4. Implement non-pharmacological measures as appropriate and evaluate response 5. Consider cultural and social influences on pain and pain management 6. Notify LIP if interventions ineffective or patient reports new pain 7. Monitor vital signs including pulse ox, end-tidal CO2 based on pain intervention 8. Reassess pain per policy 9. Teach patient or legal junior sales representative interventions for comforting Outcome: Progressing Note: Evaluation of progress towards goal: Patient has a pain goal of less than 4. Will medicate asneeded per orders. Assessed every 4 hours. Problem: Safety Goal: Patient will be injury free during hospitalization Description: INTERVENTIONS: 1. Assess patient's risk for falls and implement fall prevention plan of care per policy 2. Provide and maintain a safe environment 3. Proper use of double Identifiers 4. Medication administration using the 5 rights 5. Hand hygiene 6. Specimens are labeled at the bedside 7. Instruct patient/ patient junior sales representative about use of safety devices 8. Include patient/ patient junior sales representative in decisions related to safety Outcome: Progressing Note: Evaluation of progress towards goal: Safety maintained. Bed alarm on. Up with sera steady. Problem: Infection Goal: Absence of infection during hospitalization Description: INTERVENTIONS 1. Assess and monitor for signs and symptoms of infection. 2. Monitor lab/diagnostic results. 3. Monitor all insertion sites i.e., indwelling lines, tubes and drains. 4. Monitor endotracheal (as able) and nasal secretions for changes in amount and color. 5. Administer medications as ordered. 6. Instruct and encourage patient and family to use good hand hygiene technique. 7. Identify and instruct patient/patient junior sales representative in use of appropriate isolation precautionsfor identified infection/symptoms. 8. Provide and discuss with patient/patient junior sales representative on educational MDRO sheet. 9. Encourage and monitor nutritional status daily and consult cleaner window if indicated. 10. Implement neutropenic guidelines as needed. Outcome: Progressing Note: Evaluation of progress towards goal: Patient remains afebrile. No signs and symptoms of infection. Problem: Knowledge Deficit Goal: Patient/patient junior sales representative demonstrates understanding of disease process, treatment plan,medications, and discharge instructions Description: INTERVENTIONS 1. Complete learning assessment and assess knowledge base 2. Provide teaching at level of understanding 3. Provide teaching via preferred learning method(s) Outcome: Progressing Note: Evaluation of progress towards goal: Plan of care discussed throughout shift with patient. Patient states understanding, but needs reinforcement. Problem: Discharge Planning Goal: Discharge to post-acute care, other facility, or home with appropriate resources Description: Patient's goal is: INTERVENTIONS 1. Conduct assessment to determine patient/family and health care team treatment goals, and need for post-acute services based on payer coverage, community resources, and patient preferences, and barriers to discharge 2. Coordinate with Social work, Care Navigation, and Utilization Review to arrange appropriate level of services according to patient's needs based on patient preference and payer coverage in collaboration with the physician and health care team 3. Address psychosocial, clinical, and financial barriers to discharge as identified in assessment in conjunction with the patient/family and health care team 4. Consult appropriate ancillary services (i.e.. PT/OT/ST, etc) as needed 5. Communicate with and update the patient/family, physician, and health care team regarding progress on the discharge plan 6. Identify discharge learning needs (meds, wound care, etc). 7. Arrange for needed discharge transportation as appropriate Outcome: Progressing Note: Evaluation of progress towards goal: Discharge planning discussed throughout shift. Patient states understanding. Problem: Neurological Deficit Goal: Neurological status is stable or improving Description: Patient's goal is: INTERVENTIONS 1. Complete Neurological assessment as indicated/ordered 2. Initiate measures to prevent increased intracranial pressure 3. Monitor and assess patient's level of consciousness, motor function, sensory function, and levelof assistance needed for ADLs 4. Monitor and report changes from baseline 5. Maintain blood pressure and fluid volume within ordered parameters to optimize cerebral perfusion and minimize risk of hemorrhage 6. Monitor labs and diagnostic tests 7. Administer anti-seizure medications as ordered 8. Maintain airway, patient safety and administer oxygen as ordered 9. Monitor patient for seizure activity, document and report duration and description of seizure toLIP 10. If seizure occurs, turn patient to side and suction secretions as needed 11. Reorient patient post seizure 12. Seizure pads on all 4 side rails 13. Instruct patient/family to notify RN of any seizure activity 14. Instruct patient/family to call for assistance with activity based on assessment 15. Utilize bleeding precautions if thrombolytic given Outcome: Progressing Note: Evaluation of progress towards goal: Neuro assessment done every 4 hours. No changes noted from previous exam. Problem: Activity Intolerance/Impaired Mobility Goal: Mobility/activity is maintained at optimum level for patient Description: Patient's goal is: INTERVENTIONS 1. Assess and monitor patient barriers to mobility and need for assistive/adaptive devices 2. Assess patient's emotional response to limitations 3. Collaborate with interdisciplinary teams and initiate plans and interventions as ordered 4. Encourage independent activity per tolerance 5. Maintain proper body alignment 6. Perform active/passive ROM as tolerated/ordered 7. Coordinate activities to conserve energy 8. Reposition patient 9. Ensure adequate rest/sleep time Outcome: Progressing Note: Evaluation of progress towards goal: PT/OT working with patient. Problem: Communication Impairment Goal: Ability to express needs and understand communication Description: INTERVENTIONS 1. Assess patient's communication skills and ability to understand information 2. Provide alternate method of communication if needed i.e. ipad, sign board, pen/paper 3. Collaborate with Speech Therapy to develop effective communication strategies 4. Include patient/patient junior sales representative in decisions related to communication Outcome: Progressing Note: Evaluation of progress towards goal: speech therapy working with patient. Problem: Potential for Aspiration Goal: Patient's risk of aspiration is minimized Description: INTERVENTIONS 1. Assess and monitor vital signs, respiratory status, and labs (WBC) 2. Monitor for signs of aspiration (tachypnea, cough, rales, wheezing, cyanosis, fever) 3. Assess and monitor patient's ability to swallow 4. Place patient up in chair to eat if possible 5. Elevate head of bed 90 degrees to eat if unable to get patient up into chair 6. Supervise patient during oral intake 7. Instruct patient to take small bites 8. Instruct patient to take small single sips when taking liquids 9. Follow patient-specific strategies generated by speech pathologist 10. Complete bedside swallow screen if appropriate and take actions as indicated. 11. Administer prescribed medications and monitor effects Outcome: Progressing Note: Evaluation of progress towards goal: Modified diet ordered. Problem: Anxiety Goal: Anxiety is at manageable level Description: Patient's goal is: INTERVENTIONS 1. Assess and monitor patient's anxiety level 2. Monitor for signs and symptoms of anxiety both physical and emotional (heart palpitations, chestpain, shortness of breath, headaches, nausea, feeling jumpy, restlessness, irritable, apprehensive) 3. Reorient/orient patient to unit/surroundings 4. Explain treatment plan 5. Explain tests/procedures prior to initiation 6. Encourage participation in care 7. Encourage verbalization of concerns/fears 8. Assess coping mechanisms 9. Assist in developing anxiety-reducing skills 10. Administer complimentary therapies 11. Manage patient's environment 12. Limit or eliminate stimulants such as caffeine and nicotine 13. Collaborate with ancillary departments 14. Include patient/patient junior sales representative in decisions related to anxiety Outcome: Progressing Note: Evaluation of progress towards goal: anxiety is manageable. Problem: Potential for Compromised Skin Integrity Goal: Skin integrity is maintained or improved Description: Patient's goal is: INTERVENTIONS 1. Perform initial skin assessment on admission and as needed 2. Turn patient every 2 hours and PRN 3. Relieve pressure to bony prominences 4. Avoid shearing 5. Keep skin clean and dry 6. Alternate a full bath with partial baths for elderly 7. Apply lotion/moisturizer on skin 8. Monitor patient's hygiene practices 9. Float heels 10. Collaborate with interdisciplinary team and initiate plans and interventions as needed Outcome: Progressing Note: Evaluation of progress towards goal: skin remains intact. Goal: Patient's nutritional intake is adequate Description: Patient's goal is: INTERVENTIONS 1. Assess and monitor food intake and supplements, patient food preferences, nausea, vomiting, labs, oral cavity (gums, teeth, tongue, mucosa), proper denture fit, and cultural beliefs 2. Monitor for signs of hypoglycemia and hyperglycemia 3. Collaborate with interdisciplinary team and initiate plan and interventions as ordered 4. Monitor patient's weight 5. Assist patient with meals/food selection 6. Assist patient with eating 7. Allow adequate time for meals 8. Provide pleasant environment during mealtime 9. Increase social contact during mealtimes 10. Plan activities to conserve energy 11. Encourage/perform oral hygiene as appropriate 12. Encourage patient to take dietary supplement as ordered 13. Collaborate with clinical cleaner window 14. Include patient/ patient's junior sales representative in decisions related to nutrition Outcome: Progressing Note: Evaluation of progress towards goal: modified diet ordered Problem: Moderate - High Risk Fall Score Description: Long Fall Score of =/> 25 or indicated by [facility] Assessment Goal: Patient should be free from fall Description: Interventions: 1. [place] to environment 2. Hourly rounds addressing the 4 P's (Pain, Positioning, Possessions, Potty) 3. Clear area of hazards (spills, clutter, electrical cords, unnecessary equipment) 4. Place equipment (bed & TV controls, call light, phone, urinal) within reach 5. Encourage patient to wear glasses and hearing aides as appropriate 6. Maintain bed in lowest position 7. Lock wheels on bed/wheelchair 8. Provide adequate lighting, including night light 9. Assess need for additional bedding, food/fluids, pain med's prior to sleep/routinely 10. Provide gripper slippers or personal non-skid footwear 11. Teach patient and patient junior sales representative to maintain environment for safety and engage in all aspects of fall prevention program 12. Remind patient to call for help before getting out of bed 13. Initiate bed/chair/exit alarms supportive devices as appropriate, (chair wedge, no-skid floor mat, raised edge mattress, hip protectors) 14. Locate patient bed assignment for optimal visualization 15. Evaluate and identify Safe Patient Handling Equipment needs 16. Provide supervision when out of bed or chair 17. Utilize gait belt as needed to assist with ambulation 18. Place adaptive equipment (cane, walker) within reach 19. Request patient junior sales representative bring adaptive equipment/mobility aids from home or obtain and provide as needed 20. Consult pharmacy regarding effects of med's affecting mobility, cognition, and alternatives 21. Obtain physician order for PT if risk factors associated with mobility are present 22. Obtain physician order for OT as appropriate 23. Utilize diversional activities 24. Educate patient and patient junior sales representative how to maintain a safe environment during visitationtimes (notify nurse prior to leaving bedside) 25. Consider appropriateness of medical or non-medical surgical tech 26. Set up voiding schedule as appropriate (every 2 hours) Outcome: Progressing Note: Evaluation of progress towards goal: remains free from falls. Problem: Inadequate Coping Goal: Demonstrates and verbalizes ability to cope effectively Description: Patient's goal is: INTERVENTIONS 1. Patient is able to verbalize feelings related to emotional state 2. Encourage verbalization of feelings, perceptions, fears, stressors, loss of loved ones 3. Encourage verbalization of problems out of their control 4. Encourage participation in care and self management 5. Inform patient of all treatment/care prior to providing care 6. Collaborate with pastoral/spiritual care, social media marketer, mental health counselor as needed. 7. Instruct patient on diversional activities such as physical activity, distraction, and deep breathing exercises to assist with coping 8. Involve patient's junior sales representative in care Outcome: Completed Note: Evaluation of progress towards goal: * Query Response - Alphonse Cuenca MD - 06/12/2025 6:09 PM EDT Query Response Note CDI QUERY TEXT: Bleeding Due To Anticoagulant [id number] Disclaimer: By submitting this query, we are merely seeking further clarification of documentation to accurately reflect all conditions that you are monitoring, evaluating, treating or that extend the hospitalization or utilize additional resources of care. Please utilize your independent clinical judgment when addressing the question(s) below. - Dear Dr. Cuenca, A vveby-kpp-tscydi relationship between diagnoses and underlying causes may not be assumed. Please document the relationship, if any, between the R IPH w intra- ventricular extension and anticoagulant therapy Eliquis -There is a [id number]-[id number] relationship between the bleeding/hemorrhage and the anticoagulant therapy -The anticoagulant therapy enhanced/contributed to the bleeding/hemorrhage -There is NOT a bkfcd-[id number]-fpypac relationship between the bleeding and the anticoagulant therapy -Other (Specify) Thank you for your time and assistance, Yoil Woo RN Clinical Documentation Shoe Clerk Clinical Revenue Cycle E-Mail: [email or web address] The patient's Clinical Indicators include: - H&P 06/04/25: 70 y/o male presented to OSH for eval of AMS. 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 He was on Eliquis due to recent DVT. In ED Kcentra was given for reversal of Eliquis. He was also given Keppra 2 gm and started on Cardene infusion. Transferred to [facility] for R IPH with intra-ventricular extension, likely 2/2 HTN. CDI RESPONSE TEXT: ICH, likely 2/2 HTN and AC use. Query created by: Yoli Woo on 06/08/2025 9:09 AM Electronically signed by: Alphonse Cuenca MD 06/12/2025 6:07 PM * Discharge Planning Note - Chaya Yoder - 06/12/2025 3:47 PM EDT DISCHARGE PLANNING NOTE Referral sent to [facility], [facility] / [facility] (P# ; F# ) [facility]/ [facility], [place], [place] (P# ; F# ) [facility] in [place], [place] (P# ; F# ) * PT/OT/BLOCK HACKER - PARVEEN Boyd - 06/12/2025 3:11 PM EDT Occupational Therapy Treatment Discharge Recommendations for Safe Patient Transition OT Discharge Disposition Recommendation: Post acute - moderate OT Post Acute Moderate Rehab Needs: Recommend moderate intensity rehab, Tolerate 1-2 hrs of therapy3-5 days/wk, Subacute or chronic functional impairment Current Impairments Informing Therapy Recommendation: Ambulation status/safety, Cognition, Fall risk, ADL status, Swallowing, Endurance level, Communication needs 6 Clicks: Daily Activity Putting on and taking off regular lower body clothing?: Total Bathing (including washing, rinsing, drying)?: A lot Toileting, which includes using toilet, bedpan or urinal?: Total Putting on and taking off regular upper body clothing?: A lot Taking care of personal grooming such as brushing teeth?: A lot Eating meals?: A little Scoring Daily Activity Raw Score: 11 CMS G Code Modifier: CL 06/12/25 1408 UE ROM UE ROM exercises performed? Yes Scapular retraction x Shoulder horizontal abduction/adduction x Elbow flexion/extension x Other BUE AAROM/PROM - AAROM initially then needing PROM d/t pt falling asleep during ther ex Repetitions 15 OT Treatment/Interventions: ADL retraining, Functional transfer training, UE strengthening/ROM, Endurance training, Cognitive reorientation, Patient/family training, Equipment eval/education, Balance, Compensatory technique education, Functional activities OT Frequency: 4-5days/week OT Duration: 07-08-2025 Assessment Patient Assessment Therapy Problem List: Decreased ADL status, Decreased balance, Decreased endurance, Decreased mobility, Decreased high-level ADLs, Decreased safe judgement during ADL, Decreased self-care trans, Decreased UE ROM, Decreased UE strength Patient Response to Treatment: Slow progress, decreased activity tolerance Mood/Affect: Appropriate for circumstances Rehab Prognosis: Good, With continued OT status post acute discharge Visit RN Communication: Yes Medical Record Reviewed: Yes OT Type of Visit: Treatment Precautions Activity: ok to tx per RN Equipment: gait belt, RW, IV pole, mayo Telemetry/Refractory Specialist: Yes Oxygen Used: 4L Other: Seizure precautions. High fall risk, confusion Pain Assessment Pain Assessment: No/denies pain ADL / IADL Hand Dominance: Right Where Assessed: Chair Grooming Assistance: Min assist Grooming Deficit: Supervision/safety, Verbal cueing, Increased time to complete, Wash/dry hands, Wash/dry face Other: pt needing increased cueing for sequencing and min A for thoroughness to wash his face whileseated in recliner. increased time and effort to complete Home Management - IADL Other: pt needing increased cueing for sequencing and min A for thoroughness to wash his face whileseated in recliner. increased time and effort to complete Hearing / Speech / Vision Hearing: Within Functional Limits Speech: Garbled, Expressive aphasia, Receptive aphasia Cognition Overall Cognitive Status: Exceptions to Within Functional Limits Arousal/Alertness: Delayed responses to stimuli Attention Span: Difficulty attending to directions Following Commands: Follows one step commands with repetition, Follows one step commands with increased time Safety Judgment: Decreased awareness of need for assistance, Decreased awareness of need for safety Awareness of Errors: Assistance required to correct errors made, Decreased awareness of errors, Assistance required to identify errors made Insight of Deficits: Decreased awareness of deficits Problem Solving: Reduced Other: pt pleasant, cooperative and more alert for participation this date Bed Mobility Other: NT - pt up in recliner upon arrival. use of maxi hernan for chair to bed transfer. pt left in bed at end of session with call light in reach and nurse notified Transfers Sit to Stand: Max assist (x2) Stand to Sit: Max assist (x2) Bed to Chair: Total assist (maxi hernan) Other: pt completed sit<>stand x2 this date from recliner with use of RW for BUE support and max A x2 to initiate and reach full stand. verbal and tactile cues given for proper hand placement and technique with unsteadiness and forward flexed trunk noted with no major LOB. max A x2 for controlled descent into recliner. use of maxi hernan for chair to bed transfer. Gait Gait Assistance: Mod assist (x2) Assistive Device: Rolling walker Gait Distance: 3ft Other: pt able to tolerate short distance within room this date with use of RW for BUE support and mod A x2 for safety, stability and RW management. pt with forward flexed trunk and unsteadiness not with no major LOB. cues given to increase step length and RW safety. close chair follow provided. Balance Sitting Balance: Static: Fair Sitting Balance: Dynamic: Fair (-) Standing Balance: Static: Poor (+) Standing Balance: Dynamic: Poor Other: use of RW for BUE support during amb and transfers with unsteadiness noted with no major LOB. Activity Tolerance Endurance: Tolerates 30 minutes activity with rest breaks Other: pt limited d/t weakness, fatigue and cognition. increased time and effort to complete activity with rest breaks as needed. pt fatiguing quickly and having difficulty keeping eyes open toward end of session Plan Occupational Therapy Care Plan Occupational Therapy Care Plan (Active) Template: OT - Occupational Therapy Problem: Activity Tolerance Dates: Start: 06/07/25 Disciplines: OT Goal: Tolerate 30 minutes of activity WITH rest breaks Dates: Start: 06/07/25 Expected End: 07/08/25 Description: Goal Description: Disciplines: OT Outcomes Date/Time User Outcome 06/12/25 1458 Phyllis Dickeydelmar, SAMUEL/L Progressing 06/09/25 1503 Sue Yousif-Rawls, TECHNICAL SUPPORT COORDINATOR/L Progressing Problem: Bathing LB Dates: Start: 06/07/25 Disciplines: OT Goal: Patient will perform bathing LB with Minimum Assist Dates: Start: 06/07/25 Expected End: 07/08/25 Description: Goal Description: Disciplines: OT Problem: Bathing UB Dates: Start: 06/07/25 Disciplines: OT Goal: Patient will perform bathing UB with Set-Up Dates: Start: 06/07/25 Expected End: 07/08/25 Description: Goal Description: Disciplines: OT Problem: Bed Mobility Dates: Start: 06/07/25 Disciplines: OT Goal: Patient will perform bed mobility with Contact Guard Dates: Start: 06/07/25 Expected End: 07/08/25 Description: Goal Description: Disciplines: OT Outcomes Date/Time User Outcome 06/09/25 1503 Sue Yousif-Rawls, TECHNICAL SUPPORT COORDINATOR/L Progressing Problem: Cognition Dates: Start: 06/07/25 Disciplines: OT Goal: Improve cognition Dates: Start: 06/07/25 Expected End: 07/08/25 Description: Follow one step commands 100% of the time Disciplines: OT Outcomes Date/Time User Outcome 06/12/25 1458 Phyllis Dickeyperezlois, SAMUEL/L Progressing 06/09/25 1503 Sue Yousif-Rawls, TECHNICAL SUPPORT COORDINATOR/L Progressing Problem: Dressing LB Dates: Start: 06/07/25 Disciplines: OT Goal: Patient will perform dressing LB with Minimum Assist Dates: Start: 06/07/25 Expected End: 07/08/25 Description: Goal Description: Disciplines: OT Problem: Dressing UB Dates: Start: 06/07/25 Disciplines: OT Goal: Patient will perform dressing UB with Set-Up Dates: Start: 06/07/25 Expected End: 07/08/25 Description: Goal Description: Disciplines: OT Problem: Functional Mobility Dates: Start: 06/07/25 Disciplines: OT Goal: Patient will perform functional mobility with Minimum Assist Dates: Start: 06/07/25 Expected End: 07/08/25 Description: Goal Description: Disciplines: OT Outcomes Date/Time User Outcome 06/12/25 1458 Phyllis Kunz, SAMUEL/L Progressing 06/09/25 1503 Sue Yousif-Rawls, BATOOL/L Progressing Problem: Grooming Dates: Start: 06/07/25 Disciplines: OT Goal: Patient will perform grooming with Minimum Assist Dates: Start: 06/07/25 Expected End: 07/08/25 Description: Goal Description: Disciplines: OT Outcomes Date/Time User Outcome 06/12/25 1458 Phyllis Kunz, SAMUEL/L Progressing 06/09/25 1503 Sue Yousif-Rawls, BATOOL/L Progressing Problem: Home Management Dates: Start: 06/07/25 Disciplines: OT Goal: Patient will perform home management with Minimum Assist Dates: Start: 06/07/25 Expected End: 07/08/25 Description: Goal Description: Disciplines: OT Problem: Sitting Balance Dates: Start: 06/07/25 Disciplines: OT Goal: Improve balance to good Dates: Start: 06/07/25 Expected End: 07/08/25 Description: Good dynamic balance, Disciplines: OT Outcomes Date/Time User Outcome 06/12/25 1458 Phyllis Dickeyperezlois, SAMUEL/L Progressing 06/09/25 1503 Sue Yousif-Rawls, BATOOL/L Progressing Problem: Standing Balance Dates: Start: 06/07/25 Disciplines: OT Goal: Improve balance to good Dates: Start: 06/07/25 Expected End: 07/08/25 Description: Good dynamic balance. Disciplines: OT Outcomes Date/Time User Outcome 06/12/25 1458 Phyllis Dickeyperezlois, SAMUEL/L Progressing 06/09/25 1503 Sue Yousif-Rawls, TECHNICAL SUPPORT COORDINATOR/L Progressing Problem: Strength Dates: Start: 06/07/25 Disciplines: OT Goal: Improve strength Dates: Start: 06/07/25 Expected End: 07/08/25 Description: Improve bilateral upper extremity strength to be able to complete full ADL tasks without rest breaks. Disciplines: OT Outcomes Date/Time User Outcome 06/12/25 1458 Phyllis Kunz SAMUEL/L Progressing 06/09/25 1503 Sue Yousif-Rawls, BATOOL/L Progressing Problem: Toilet Transfers Dates: Start: 06/07/25 Disciplines: OT Goal: Patient will perform toilet transfers with Minimum Assist Dates: Start: 06/07/25 Expected End: 07/08/25 Description: Goal Description: Disciplines: OT Problem: Toileting Dates: Start: 06/07/25 Disciplines: OT Goal: Patient will perform toileting with Minimum Assist Dates: Start: 06/07/25 Expected End: 07/08/25 Description: Goal Description: Disciplines: OT Outcomes Date/Time User Outcome 06/09/25 1503 Sue Yousif-Rawls, BATOOL/L Not Progressing Problem: Transfers Dates: Start: 06/07/25 Disciplines: OT Goal: Patient will perform transfers with Contact Guard Dates: Start: 06/07/25 Expected End: 07/08/25 Description: Goal Description: Disciplines: OT Outcomes Date/Time User Outcome 06/12/25 1458 Phyllis Kunz SAMUEL/L Progressing 06/09/25 1503 Sue Yousif-Rawls, BATOOL/L Progressing Occupational Therapy Care Plan (Resolved) There are no resolved problems. Principal Problem: ICH (intracerebral hemorrhage) ([facility]) Cosigned by STEPH Gant/Brendon at 06/13/2025 10:21 AM EDT Associated attestation - Dixon Murphy OTR/Brendon - 06/13/2025 10:21 AM EDT I have reviewed and agree with this note and education documentation for this visit. * Discharge Planning Note - YUMIKO Plasencia - 06/12/2025 3:08 PM EDT Ongoing Assessment for Discharge Needs Reviewed discharge milestones and patient needs related to discharge plan. Current estimated discharge date of Jun 15, 2025 has been reviewed by treatment team. Ongoing Assessment for Discharge Needs Flowsheet Row Most Recent Value Referral To Community Referrals / Resources Provided Denies needs Services Requested Patient expects to be discharged to: SNF Does the patient wish to have family/friend/caregiver involved in their discharge planning? Yes Does the patient plan to return home to a community setting? No, patient to discharge to facility-based provider. See Discharge Disposition Discharge Disposition SNF Does the patient need discharge transportation arranged? Yes Mobility issues discussed with transportation provider No Patient choice offered Yes List Provided Yes [facility] List Provided Nursing Home Facility Discussed patient today during rounds. Plan- SNF. Spoke with patient's and she asked that referrals be sent to [facility], [place] and [place]. Tasked [facility] to send. Floor nurse aware. - YUMIKO PLASENCIA 06/12/25 3:09 PM * PT/OT/BLOCK HACKER - Danny Herrera, BARROW WORKER HELPER - 06/12/2025 3:02 PM EDT Physical Therapy Treatment Discharge Recommendations for Safe Patient Transition PT Discharge Disposition Recommendation: Post acute - moderate PT Post Acute Moderate Rehab Needs: Recommend moderate intensity rehab, Tolerate 1-2 hrs of therapy3-5 days/wk, Subacute or chronic functional impairment 6 Clicks: Basic Mobility Turning from your back to your side while in a flat bed without using bed rails?: A lot Moving from lying on your back to sitting on side of flat bed without using bed rails?: A lot Moving to and from bed to a chair (including w/c)?: Total Standing up from a chair using your arms (e.g. w/c or bedside chair)?: A lot To walk in hospital room?: A lot Climbing 3-5 steps with a railing?: Total Scoring 6 Clicks: Basic Mobility Raw Score: 10 CMS G Code Modifier: CL Assessment Patient Assessment Patient Response to Treatment: Slow progress, decreased activity tolerance Visit RN Communication: Yes Medical Record Reviewed: Yes PT Type of Visit: Treatment Precautions Activity: early mobility pass, okay per RN Equipment: gait belt, RW IV pole, mayo Telemetry/Refractory Specialist: Yes Oxygen Used: 4LO2 via NC Other: Seizure precautions. High fall risk, confusion Pain Assessment Pain Assessment: No/denies pain 06/12/25 1438 LE Seated LE seated exercises performed? Yes Long arc quads x Seated marching x Hip abduction/adduction x Other verbal and visual cues for proper technique Repetitions 10x AAROM BLE Bed Mobility Other: NT, pt found sitting up in bedside chair and dependently transferred from bed to chair with use of Maxi-hernan lift and repositioning sling. Transfers Sit to Stand: Max assist (x2) Stand to Sit: Max assist (x2) Other: STS from bedside chair to RW, cues for proper hand placement, attempted twice with second attempt being sucessful. Gait Base of Support: Narrow Pattern: Decreased shani, Antalgic gait, R Decreased heel strike, L Decreased heel strike, R Decreased foot clearance, L Decreased foot clearance, Forward trunk Gait Assistance: Mod assist (x2 for weight shifting and RW navigation) Assistive Device: Rolling walker Gait Distance: 3' Limiting Factors to Gait: Fatigue, Weakness, Decreased safety, Cognition/difficulty following directions Other: verbal and tactile cues for postural awareness. Balance Sitting Balance: Static: Fair Sitting Balance: Dynamic: Fair (-) Standing Balance: Static: Poor (+) Standing Balance: Dynamic: Poor Other: pt stood with use of RW. Activity Tolerance Endurance: Tolerates <30 minutes activity WITHOUT vital sign changes Other: rest breaks as needed Plan Physical Therapy Care Plan Physical Therapy Care Plan (Active) Template: PT - Physical Therapy Problem: Activity Tolerance Dates: Start: 06/07/25 Disciplines: PT Goal: Tolerate 30 minutes of activity WITH rest breaks Dates: Start: 06/07/25 Expected End: 06/30/25 Description: Goal Description: For seated and standing activities for improved mobility Disciplines: PT Outcomes Date/Time User Outcome 06/12/25 1451 Danny Herrera PTA Progressing 06/09/25 1445 Stan Graham PTA Progressing Goal Note filed on 06/12/25 1451 by Danny Herrera PTA Evaluation of progress towards goal: Problem: Bed Mobility Dates: Start: 06/07/25 Disciplines: PT Goal: Patient will perform bed mobility with Minimum Assist Dates: Start: 06/07/25 Expected End: 06/30/25 Description: Goal Description: Disciplines: PT Outcomes Date/Time User Outcome 06/09/25 1445 Stan Graham PTA Progressing Problem: Gait Dates: Start: 06/07/25 Disciplines: PT Goal: Patient will perform gait with Minimum Assist Dates: Start: 06/07/25 Expected End: 06/30/25 Description: 100 feet with RW support for safe mobility Goal Description: Disciplines: PT Outcomes Date/Time User Outcome 06/12/25 145 Danny Herrera PTA Progressing 06/09/25 1445 Stan Graham PTA Progressing Goal Note filed on 06/12/25 145 by Danny Herrera PTA Evaluation of progress towards goal: Problem: Sitting Balance Dates: Start: 06/07/25 Disciplines: PT Goal: Improve balance to good Dates: Start: 06/07/25 Expected End: 06/30/25 Description: Static Dynamic for safe ADLs and transfers Disciplines: PT Outcomes Date/Time User Outcome 06/12/25 145 Danny Herrera PTA Progressing 06/09/25 1445 Stan Graham PTA Progressing Goal Note filed on 06/12/25 145 by Danny Herrera PTA Evaluation of progress towards goal: Problem: Standing Balance Dates: Start: 06/07/25 Disciplines: PT Goal: Improve balance to fair Dates: Start: 06/07/25 Expected End: 06/30/25 Description: Static Dynamic with walker support for safe mobility, decreased fall risk Disciplines: PT Outcomes Date/Time User Outcome 06/12/25 145 Danny Herrera PTA Progressing 06/09/25 1445 Stan Graham PTA Progressing Goal Note filed on 06/12/25 145 by Danny Herrera PTA Evaluation of progress towards goal: Problem: Transfers Dates: Start: 06/07/25 Disciplines: PT Goal: Patient will perform transfers with Minimum Assist Dates: Start: 06/07/25 Expected End: 06/30/25 Description: Goal Description: with RW support Disciplines: PT Outcomes Date/Time User Outcome 06/12/25 145 Danny Herrera PTA Progressing 06/09/25 1445 Stan Graham PTA Progressing Goal Note filed on 06/12/25 145 by Danny Herrera PTA Evaluation of progress towards goal: Physical Therapy Care Plan (Resolved) There are no resolved problems. Principal Problem: ICH (intracerebral hemorrhage) ([facility]) Cosigned by Yelitza Jauregui PT at 06/12/2025 3:14 PM EDT Associated attestation - Yelitza Jauregui PT - 06/12/2025 3:14 PM EDT I have reviewed and agree with this note and education documentation for this visit. * BLOCK HACKER Procedure Note - Gary JohnRAKEL tee-BLOCK HACKER - 06/12/2025 10:20 AM EDT Speech Therapy Videofluoroscopic Swallow Study Evaluation Discharge Recommendations for Safe Patient Transition BLOCK HACKER Therapy Recommendations: Continue ST services Recommendations Diet Level: Level 4 Pureed Liquid Level: No liquids Alternate Means Of:: Hydration Compensatory Strategies: Small sips/bites, One sip/bite at a time, Follow aspiration precautions Supervision/Positioning: Patient at 90 degress for all PO intake (including medication), Patient toremain upright 15 minutes after meals Medications: In applesauce/puree, Crushed Impressions Oral Phase: Moderate Pharyngeal Phase: Moderate Functional Oral Intake Scale: Total oral intake of a single consistency Plan Frequency: 3-4days/week Duration: until discharge Need for skilled Speech Language Pathology Services to address deficits in feeding/swallowing due to a status decline resulting from ICH. Pt educated on purpose of exam, contrast administration, and procedural techniques prior to initiation of exam. Pt educated on diet recommendations, plan of care, and encouraged to use safety strategies in order to maintain safe PO intake following exam. Prognosis Services: Skilled BLOCK HACKER services to address above deficits Prognosis/Potential: Good Considerations: Age, Cognition Assessment Baseline Assessment Allergies Marked As Reviewed: Complete Consistencies Tested Views: Lateral position Level 0 Thin: Spoon, Straw Level 2 Mildly Thick: Cup, Straw Level 3 Moderately Thick: Cup, Straw Level 4 Pureed: Spoon Level 6 Soft & Bite-Sized: Spoon Regular Tested: Bite Modified Barium Swallow Impairment Profile (MBSImP) Oral Impairment: Yes Component 1: Lip Closure: no labial escape Component 2: Tongue Control During Bolus Hold: posterior escape of less than half of bolus Component 3: Bolus Preparation/Mastication: minimal chewing/mashing with majority of bolus unchewed Component 4: Bolus Transport/Lingual Motion: repetitive/disorganized tongue motion Component 5: Oral Residue: trace residue lining oral structures Component 6: Initiation of Pharyngeal Swallow: bolus head in pyriforms Pharyngeal Impairment: Yes Component 7: Soft Palate Elevation: no bolus between soft palate/posterior pharyngeal wall Component 8: Laryngeal Elevation: partial superior movement of thyroid cartilage/partial approximation of arytenoids to epiglottic petiole Component 9: Anterior Hyoid Excursion: partial anterior movement Component 10: Epiglottic Movement: partial inversion Component 11: Laryngeal Vestibular Closure - Height of the Swallow: incomplete, narrow column of contrast/air in laryngeal vestibule Component 12: Pharyngeal Stripping Wave: present - diminished Component 13: Pharyngeal Contraction (A/P view only): could not be determined due to logistical reasons not related to physiologic impairment Component 14: Pharyngoesophageal Segment Opening: minimal distension/minimal duration, marked obstruction of flow Component 15: Tongue Base Retraction: narrow column of contrast/air between tongue base and posterior pharyngeal wall Component 16: Pharyngeal Residue: collection of residue within or on pharyngeal structures MBSImP Overall Impression Scores Oral Impairment Total: 12 Pharyngeal Impairment Total: 11 Penetration/Aspiration Scale Penetration/Aspiration Scale Performed: Yes Level 0 Thin: Contrast entered the airway, passed below the vocal folds, and no effort was made to eject Level 2 Mildly Thick: Contrast entered the airway, contacted the vocal folds, and was not ejected from the airway Level 3 Moderately Thick: Contrast entered the airway, contacted the vocal folds, and was not ejected from the airway Level 4 Pureed: Contrast did not enter the airway Level 6 Soft & Bite-Sized: Contrast did not enter the airway Regular: Contrast did not enter the airway Trialed Compensatory Strategies Strategies Utilized: Small sips/bites Effective: No Pain Assessment Pain Assessment: No/denies pain Plan Diagnosis Code Swallowing: R13.12 Dysphagia, oropharyngeal phase, I69.191 Dysphagia following nontraumatic intracerebral hemorrhage + Speech Therapy Care Plan Speech Therapy Care Plan (Active) Template: ST - Dysphagia Problem: Swallowing Dates: Start: 06/06/25 Disciplines: BLOCK HACKER Goal: LTG: Patient will maintain adequate nutrition/ hydration with optimum safety and efficiency of swallowing function of oral intake without overt signs/symptoms of aspiration for the highest appropriate diet level Dates: Start: 06/06/25 Expected End: 07/12/25 Disciplines: BLOCK HACKER Outcomes Date/Time User Outcome 06/08/25 1029 Gary Hernandez CCC-BLOCK HACKER Not Progressing Goal: STG: Pt will tolerate ice chip/therapeutic water trials without overt s/s of aspiration with 90% accuracy with min cues and use of compensatory strategies Dates: Start: 06/06/25 Expected End: 07/12/25 Disciplines: BLOCK HACKER Outcomes Date/Time User Outcome 06/12/25 0849 Gary Hernandez CCC-BLOCK HACKER Progressing Template: ST - Rehab Speech Problem: Auditory Comprehension Dates: Start: 06/06/25 Disciplines: BLOCK HACKER Goal: LTG: Patient will comprehend communication related to basic medical and social needs and utilize compensatory strategies to maintain safety in a functional living environment Dates: Start: 06/06/25 Expected End: 07/12/25 Disciplines: BLOCK HACKER Goal: STG: Patient will complete complex, paragraph level auditory comprehension tasks with 90% accuracy with minimal cueing Dates: Start: 06/06/25 Expected End: 07/12/25 Disciplines: BLOCK HACKER Problem: Cognitive Linguistic Dates: Start: 06/06/25 Disciplines: BLOCK HACKER Goal: LTG: Patient will display functional cognitive-linguistic skills to demonstrate appropriate communication and safety within daily activities in a functional living environment Dates: Start: 06/06/25 Expected End: 07/12/25 Disciplines: BLOCK HACKER Goal: STG: Patient will recall information discussed during therapy session via retelling/answeringquestions with 90% accuracy with minimal cueing Dates: Start: 06/06/25 Expected End: 07/12/25 Disciplines: BLOCK HACKER Problem: High Level Language Dates: Start: 06/06/25 Disciplines: BLOCK HACKER Goal: LTG: Patient will demonstrate use of self-awareness, goal setting, planning, initiation, self-monitoring and problem solving during daily activities to improve safety and awareness in a functional living environment Dates: Start: 06/06/25 Expected End: 07/12/25 Disciplines: BLOCK HACKER Goal: STG: Patient will demonstrate functional problem solving and safety awareness with 90% accuracy in daily living tasks in order to increase safe interactions with environment and decrease assistance from caregivers Dates: Start: 06/06/25 Expected End: 07/12/25 Disciplines: BLOCK HACKER Goal: STG: Patient will complete simple to complex organization, scheduling, planning and reasoningtasks to improve problem solving and safety awareness with 90% accuracy with minimal cueing Dates: Start: 06/06/25 Expected End: 07/12/25 Disciplines: BLOCK HACKER Problem: Verbal Expression Dates: Start: 06/06/25 Disciplines: BLOCK HACKER Goal: LTG: Patient will utilize compensatory strategies to communicate wants and needs effectively to different conversational partners, maintain safety and participate socially in a functional living environment Dates: Start: 06/06/25 Expected End: 07/12/25 Disciplines: BLOCK HACKER Goal: STG: Patient will complete simple to complex divergent and convergent naming tasks with 90% accuracy with minimal cueing to improve thought organization Dates: Start: 06/06/25 Expected End: 07/12/25 Disciplines: BLOCK HACKER Goal: STG: Patient will complete abstract naming tasks with 90% accuracy with minimum cueing to improve narrative expansion and discourse during activities of daily living Dates: Start: 06/06/25 Expected End: 07/12/25 Disciplines: BLOCK HACKER Speech Therapy Care Plan (Resolved) There are no resolved problems. Principal Problem: ICH (intracerebral hemorrhage) ([facility]) * PT/OT/BLOCK HACKER - XANDER Boland - 06/12/2025 8:49 AM EDT Speech Therapy Dysphagia Treatment Note Assessment: Current Diet Tolerance: NPO Progress: improving Pt awake and alert in bed, remains confused and disoriented. Has pulled out his NG tube again. Tolerated PO trials of pureed solids with no overt s/s of aspiration. Ok for video swallow today. Pain Assessment Pain Assessment: No/denies pain Recommendations Diet: NPO Discharge: continued ST services Precautions aspiration Plan: Plan of Care: continue with current plan of care Continue with Current Diet: yes Diet: NPO Liquids: No liquids Safety Strategies: n/a Subjective Setting: bedside Arrival Status: awake Mental Status: confused/disoriented and pleasant Therapy Tolerance: good Change in Medical Status: no Received Recent Medications: no Objective NMES: No 1. Therapy Activity: Swallow Strategies Number of Trials: 5 Cueing/Assistance Required: moderate Cueing Type: verbal Diet Trials: Level 4 Pureed Outcome: tolerated without s/s aspiration Plan Speech Therapy Care Plan Speech Therapy Care Plan (Active) Template: ST - Dysphagia Problem: Swallowing Dates: Start: 06/06/25 Disciplines: BLOCK HACKER Goal: LTG: Patient will maintain adequate nutrition/ hydration with optimum safety and efficiency of swallowing function of oral intake without overt signs/symptoms of aspiration for the highest appropriate diet level Dates: Start: 06/06/25 Expected End: 07/12/25 Disciplines: BLOCK HACKER Outcomes Date/Time User Outcome 06/08/25 1029 XANDER Boland Not Progressing Goal: STG: Pt will tolerate ice chip/therapeutic water trials without overt s/s of aspiration with 90% accuracy with min cues and use of compensatory strategies Dates: Start: 06/06/25 Expected End: 07/12/25 Disciplines: BLOCK HACKER Outcomes Date/Time User Outcome 06/12/25 0849 Gary Hernandez CCC-BLOCK HACKER Progressing Template: ST - Rehab Speech Problem: Auditory Comprehension Dates: Start: 06/06/25 Disciplines: BLOCK HACKER Goal: LTG: Patient will comprehend communication related to basic medical and social needs and utilize compensatory strategies to maintain safety in a functional living environment Dates: Start: 06/06/25 Expected End: 07/12/25 Disciplines: BLOCK HACKER Goal: STG: Patient will complete complex, paragraph level auditory comprehension tasks with 90% accuracy with minimal cueing Dates: Start: 06/06/25 Expected End: 07/12/25 Disciplines: BLOCK HACKER Problem: Cognitive Linguistic Dates: Start: 06/06/25 Disciplines: BLOCK HACKER Goal: LTG: Patient will display functional cognitive-linguistic skills to demonstrate appropriate communication and safety within daily activities in a functional living environment Dates: Start: 06/06/25 Expected End: 07/12/25 Disciplines: BLOCK HACKER Goal: STG: Patient will recall information discussed during therapy session via retelling/answeringquestions with 90% accuracy with minimal cueing Dates: Start: 06/06/25 Expected End: 07/12/25 Disciplines: BLOCK HACKER Problem: High Level Language Dates: Start: 06/06/25 Disciplines: BLOCK HACKER Goal: LTG: Patient will demonstrate use of self-awareness, goal setting, planning, initiation, self-monitoring and problem solving during daily activities to improve safety and awareness in a functional living environment Dates: Start: 06/06/25 Expected End: 07/12/25 Disciplines: BLOCK HACKER Goal: STG: Patient will demonstrate functional problem solving and safety awareness with 90% accuracy in daily living tasks in order to increase safe interactions with environment and decrease assistance from caregivers Dates: Start: 06/06/25 Expected End: 07/12/25 Disciplines: BLOCK HACKER Goal: STG: Patient will complete simple to complex organization, scheduling, planning and reasoningtasks to improve problem solving and safety awareness with 90% accuracy with minimal cueing Dates: Start: 06/06/25 Expected End: 07/12/25 Disciplines: BLOCK HACKER Problem: Verbal Expression Dates: Start: 06/06/25 Disciplines: BLOCK HACKER Goal: LTG: Patient will utilize compensatory strategies to communicate wants and needs effectively to different conversational partners, maintain safety and participate socially in a functional living environment Dates: Start: 06/06/25 Expected End: 07/12/25 Disciplines: BLOCK HACKER Goal: STG: Patient will complete simple to complex divergent and convergent naming tasks with 90% accuracy with minimal cueing to improve thought organization Dates: Start: 06/06/25 Expected End: 07/12/25 Disciplines: BLOCK HACKER Goal: STG: Patient will complete abstract naming tasks with 90% accuracy with minimum cueing to improve narrative expansion and discourse during activities of daily living Dates: Start: 06/06/25 Expected End: 07/12/25 Disciplines: BLOCK HACKER Speech Therapy Care Plan (Resolved) There are no resolved problems. Principal Problem: ICH (intracerebral hemorrhage) ([facility]) * Plan of Care - Shantel Gunn RN - 06/12/2025 5:49 AM EDT Problem: Pain Goal: Patient goal is pain score less than 4, able to rest, and participant in treatment plan as appropriate Description: INTERVENTIONS: 1. Encourage patient or legal junior sales representative to report early pain and ask for pain medicine when needed 2. Assess pain using appropriate pain scale and include the scale used when documenting 3. Administer analgesics based on type and severity of pain and evaluate response within appropriate time frame 4. Implement non-pharmacological measures as appropriate and evaluate response 5. Consider cultural and social influences on pain and pain management 6. Notify LIP if interventions ineffective or patient reports new pain 7. Monitor vital signs including pulse ox, end-tidal CO2 based on pain intervention 8. Reassess pain per policy 9. Teach patient or legal junior sales representative interventions for comforting Outcome: Progressing Note: Evaluation of progress towards goal: Patient has PRN pain medication. Checking with every assessment. Monitoring vitals. Problem: Safety Goal: Patient will be injury free during hospitalization Description: INTERVENTIONS: 1. Assess patient's risk for falls and implement fall prevention plan of care per policy 2. Provide and maintain a safe environment 3. Proper use of double Identifiers 4. Medication administration using the 5 rights 5. Hand hygiene 6. Specimens are labeled at the bedside 7. Instruct patient/ patient junior sales representative about use of safety devices 8. Include patient/ patient junior sales representative in decisions related to safety Outcome: Progressing Note: Evaluation of progress towards goal: Patient safety maintained, call light in reach, area clear of hazards, hourly rounding continued, bed locked in lowest position, alarm on as applicable, nonskid socks on, safety educated completed with patient/family, no injuries noted at this time. Problem: Infection Goal: Absence of infection during hospitalization Description: INTERVENTIONS 1. Assess and monitor for signs and symptoms of infection. 2. Monitor lab/diagnostic results. 3. Monitor all insertion sites i.e., indwelling lines, tubes and drains. 4. Monitor endotracheal (as able) and nasal secretions for changes in amount and color. 5. Administer medications as ordered. 6. Instruct and encourage patient and family to use good hand hygiene technique. 7. Identify and instruct patient/patient junior sales representative in use of appropriate isolation precautionsfor identified infection/symptoms. 8. Provide and discuss with patient/patient junior sales representative on educational MDRO sheet. 9. Encourage and monitor nutritional status daily and consult cleaner window if indicated. 10. Implement neutropenic guidelines as needed. Outcome: Progressing Note: Evaluation of progress towards goal: Patient remains free from signs of infection at this time. Will continue to monitor. Problem: Knowledge Deficit Goal: Patient/patient junior sales representative demonstrates understanding of disease process, treatment plan,medications, and discharge instructions Description: INTERVENTIONS 1. Complete learning assessment and assess knowledge base 2. Provide teaching at level of understanding 3. Provide teaching via preferred learning method(s) Outcome: Progressing Note: Evaluation of progress towards goal: Patient and family is aware of the plan of care. Education provided as needed. Problem: Discharge Planning Goal: Discharge to post-acute care, other facility, or home with appropriate resources Description: Patient's goal is: INTERVENTIONS 1. Conduct assessment to determine patient/family and health care team treatment goals, and need for post-acute services based on payer coverage, community resources, and patient preferences, and barriers to discharge 2. Coordinate with Social work, Care Navigation, and Utilization Review to arrange appropriate level of services according to patient's needs based on patient preference and payer coverage in collaboration with the physician and health care team 3. Address psychosocial, clinical, and financial barriers to discharge as identified in assessment in conjunction with the patient/family and health care team 4. Consult appropriate ancillary services (i.e.. PT/OT/ST, etc) as needed 5. Communicate with and update the patient/family, physician, and health care team regarding progress on the discharge plan 6. Identify discharge learning needs (meds, wound care, etc). 7. Arrange for needed discharge transportation as appropriate Outcome: Progressing Note: Evaluation of progress towards goal: Patient and family are aware of plan of care and discharge plans. Will continue to monitor. Problem: Neurological Deficit Goal: Neurological status is stable or improving Description: Patient's goal is: INTERVENTIONS 1. Complete Neurological assessment as indicated/ordered 2. Initiate measures to prevent increased intracranial pressure 3. Monitor and assess patient's level of consciousness, motor function, sensory function, and levelof assistance needed for ADLs 4. Monitor and report changes from baseline 5. Maintain blood pressure and fluid volume within ordered parameters to optimize cerebral perfusion and minimize risk of hemorrhage 6. Monitor labs and diagnostic tests 7. Administer anti-seizure medications as ordered 8. Maintain airway, patient safety and administer oxygen as ordered 9. Monitor patient for seizure activity, document and report duration and description of seizure toLIP 10. If seizure occurs, turn patient to side and suction secretions as needed 11. Reorient patient post seizure 12. Seizure pads on all 4 side rails 13. Instruct patient/family to notify RN of any seizure activity 14. Instruct patient/family to call for assistance with activity based on assessment 15. Utilize bleeding precautions if thrombolytic given Outcome: Progressing Note: Evaluation of progress towards goal: Neuro assessments are completed per policy. Will continue to monitor the pts LOC, motor function, and sensory function. Will continue to monitor vital signsand lab results. Problem: Activity Intolerance/Impaired Mobility Goal: Mobility/activity is maintained at optimum level for patient Description: Patient's goal is: INTERVENTIONS 1. Assess and monitor patient barriers to mobility and need for assistive/adaptive devices 2. Assess patient's emotional response to limitations 3. Collaborate with interdisciplinary teams and initiate plans and interventions as ordered 4. Encourage independent activity per tolerance 5. Maintain proper body alignment 6. Perform active/passive ROM as tolerated/ordered 7. Coordinate activities to conserve energy 8. Reposition patient 9. Ensure adequate rest/sleep time Outcome: Progressing Note: Evaluation of progress towards goal: Patient's ADL assessed each shift. PT/OT/SP ordered and evaluated as appropriate. Problem: Communication Impairment Goal: Ability to express needs and understand communication Description: INTERVENTIONS 1. Assess patient's communication skills and ability to understand information 2. Provide alternate method of communication if needed i.e. ipad, sign board, pen/paper 3. Collaborate with Speech Therapy to develop effective communication strategies 4. Include patient/patient junior sales representative in decisions related to communication Outcome: Progressing Note: Evaluation of progress towards goal: Patient/family able to express needs and understands communication at this time. Problem: Potential for Aspiration Goal: Patient's risk of aspiration is minimized Description: INTERVENTIONS 1. Assess and monitor vital signs, respiratory status, and labs (WBC) 2. Monitor for signs of aspiration (tachypnea, cough, rales, wheezing, cyanosis, fever) 3. Assess and monitor patient's ability to swallow 4. Place patient up in chair to eat if possible 5. Elevate head of bed 90 degrees to eat if unable to get patient up into chair 6. Supervise patient during oral intake 7. Instruct patient to take small bites 8. Instruct patient to take small single sips when taking liquids 9. Follow patient-specific strategies generated by speech pathologist 10. Complete bedside swallow screen if appropriate and take actions as indicated. 11. Administer prescribed medications and monitor effects Outcome: Progressing Note: Evaluation of progress towards goal: Risk for aspiration assessed continuously for patient. Problem: Anxiety Goal: Anxiety is at manageable level Description: Patient's goal is: INTERVENTIONS 1. Assess and monitor patient's anxiety level 2. Monitor for signs and symptoms of anxiety both physical and emotional (heart palpitations, chestpain, shortness of breath, headaches, nausea, feeling jumpy, restlessness, irritable, apprehensive) 3. Reorient/orient patient to unit/surroundings 4. Explain treatment plan 5. Explain tests/procedures prior to initiation 6. Encourage participation in care 7. Encourage verbalization of concerns/fears 8. Assess coping mechanisms 9. Assist in developing anxiety-reducing skills 10. Administer complimentary therapies 11. Manage patient's environment 12. Limit or eliminate stimulants such as caffeine and nicotine 13. Collaborate with ancillary departments 14. Include patient/patient junior sales representative in decisions related to anxiety Outcome: Progressing Note: Evaluation of progress towards goal: Questions/comments/concerned addressed from patient/family. Anxiety remains at a manageable level. Will continue to monitor. Problem: Inadequate Coping Goal: Demonstrates and verbalizes ability to cope effectively Description: Patient's goal is: INTERVENTIONS 1. Patient is able to verbalize feelings related to emotional state 2. Encourage verbalization of feelings, perceptions, fears, stressors, loss of loved ones 3. Encourage verbalization of problems out of their control 4. Encourage participation in care and self management 5. Inform patient of all treatment/care prior to providing care 6. Collaborate with pastoral/spiritual care, social media marketer, mental health counselor as needed. 7. Instruct patient on diversional activities such as physical activity, distraction, and deep breathing exercises to assist with coping 8. Involve patient's junior sales representative in care Outcome: Progressing Note: Evaluation of progress towards goal: Patient/family demonstrates/verbalizes ability to cope effectively. Will continue to monitor. Problem: Potential for Compromised Skin Integrity Goal: Skin integrity is maintained or improved Description: Patient's goal is: INTERVENTIONS 1. Perform initial skin assessment on admission and as needed 2. Turn patient every 2 hours and PRN 3. Relieve pressure to bony prominences 4. Avoid shearing 5. Keep skin clean and dry 6. Alternate a full bath with partial baths for elderly 7. Apply lotion/moisturizer on skin 8. Monitor patient's hygiene practices 9. Float heels 10. Collaborate with interdisciplinary team and initiate plans and interventions as needed Outcome: Progressing Note: Evaluation of progress towards goal: Patient is turned every 2 hours and as needed. Skin is clean and dry. Will continue to monitor. Goal: Patient's nutritional intake is adequate Description: Patient's goal is: INTERVENTIONS 1. Assess and monitor food intake and supplements, patient food preferences, nausea, vomiting, labs, oral cavity (gums, teeth, tongue, mucosa), proper denture fit, and cultural beliefs 2. Monitor for signs of hypoglycemia and hyperglycemia 3. Collaborate with interdisciplinary team and initiate plan and interventions as ordered 4. Monitor patient's weight 5. Assist patient with meals/food selection 6. Assist patient with eating 7. Allow adequate time for meals 8. Provide pleasant environment during mealtime 9. Increase social contact during mealtimes 10. Plan activities to conserve energy 11. Encourage/perform oral hygiene as appropriate 12. Encourage patient to take dietary supplement as ordered 13. Collaborate with clinical cleaner window 14. Include patient/ patient's junior sales representative in decisions related to nutrition Outcome: Progressing Note: Evaluation of progress towards goal: Pt nutritional needs monitored and addressed as ordered by physician. Dietary recommendations appreciated as ordered. Problem: Potential for Inadequate Tissue Perfusion - Venous Goal: Tissue perfusion is adequate - venous Description: Patient's goal is: INTERVENTIONS 1. Assess and monitor skin color and temperature, skin integrity, pulses, capillary refill, edema, pain in extremities and Homans' sign 2. Monitor for signs and symptoms (dyspnea, tachypnea, and tachycardia) 3. Encourage ambulation/activity per patient's tolerance and physician order 4. Elevate feet when in chair 5. Encourage patient to do ankle pump exercises 6. Apply anti-embolism stockings/devices as ordered Outcome: Progressing Note: Evaluation of progress towards goal: Tissue perfusion remains adequate at this time. Problem: Self Care Deficit Goal: Return ADL status to a safe level of function Description: Patient's goal is: INTERVENTIONS 1. Administer medication as ordered 2. Assess ADL deficits and provide assistive devices as needed 3. Obtain PT/OT consults as needed 4. Assist and instruct patient to increase activity and self care as tolerated Outcome: Progressing Note: Evaluation of progress towards goal: Patient's ADL assessed each shift. PT/OT/SP ordered and evaluated as appropriate. Problem: Moderate - High Risk Fall Score Description: Long Fall Score of =/> 25 or indicated by [facility] Assessment Goal: Patient should be free from fall Description: Interventions: 1. [place] to environment 2. Hourly rounds addressing the 4 P's (Pain, Positioning, Possessions, Potty) 3. Clear area of hazards (spills, clutter, electrical cords, unnecessary equipment) 4. Place equipment (bed & TV controls, call light, phone, urinal) within reach 5. Encourage patient to wear glasses and hearing aides as appropriate 6. Maintain bed in lowest position 7. Lock wheels on bed/wheelchair 8. Provide adequate lighting, including night light 9. Assess need for additional bedding, food/fluids, pain med's prior to sleep/routinely 10. Provide gripper slippers or personal non-skid footwear 11. Teach patient and patient junior sales representative to maintain environment for safety and engage in all aspects of fall prevention program 12. Remind patient to call for help before getting out of bed 13. Initiate bed/chair/exit alarms supportive devices as appropriate, (chair wedge, no-skid floor mat, raised edge mattress, hip protectors) 14. Locate patient bed assignment for optimal visualization 15. Evaluate and identify Safe Patient Handling Equipment needs 16. Provide supervision when out of bed or chair 17. Utilize gait belt as needed to assist with ambulation 18. Place adaptive equipment (cane, walker) within reach 19. Request patient junior sales representative bring adaptive equipment/mobility aids from home or obtain and provide as needed 20. Consult pharmacy regarding effects of med's affecting mobility, cognition, and alternatives 21. Obtain physician order for PT if risk factors associated with mobility are present 22. Obtain physician order for OT as appropriate 23. Utilize diversional activities 24. Educate patient and patient junior sales representative how to maintain a safe environment during visitationtimes (notify nurse prior to leaving bedside) 25. Consider appropriateness of medical or non-medical surgical tech 26. Set up voiding schedule as appropriate (every 2 hours) Outcome: Progressing Note: Evaluation of progress towards goal: Fall risk assessment preformed and safety measures in place. Education given to family/patient. Will continue to monitor. Problem: Safety - Medical Restraint Goal: Remains free of injury from restraints (Restraint for Interference with Radio Script Writer) Description: INTERVENTIONS: 1. Determine that other, less restrictive measures have been tried or would not be effective beforeapplying the restraint 2. Evaluate the patient's condition at the time of restraint application 3. Inform patient/family regarding the reason for restraint 4. Q2H: Monitor safety, Vital signs, psychosocial status, signs of injury, skin integrity, circulation, neurovascular status in affected extremities, respiratory status, comfort, nutrition and hydration, hygiene, ROM, elimination needs 5. Doctor will be notified of restraint 6. RN properly applies restraints per physician order Outcome: Progressing Note: Evaluation of progress towards goal: Patient remains free from injury from restraints at thistime. Goal: Free from restraint(s) (Restraint for Interference with Radio Script Writer) Description: INTERVENTIONS: 1. ONCE/SHIFT or MINIMUM Q12H: Assess and document the continuing need for restraints 2. Order is valid for the duration of the episode of care 3. Discontinue at the earliest possible time once the reason for restraints no longer exists 4. Identify and implement measures to help patient regain control 5. Food, fluids, and toilet offered at a minimum of every 2 hours 6. RN modifies the patient's plan of care by entering a problem statement related to safety; individualizes the safety outcome Outcome: Progressing Note: Evaluation of progress towards goal: Patient remains free from injury from restraints at thistime. Problem: Multi-Drug Resistant Organism / Rule-Out Infection Prevention Goal: Prevent transmission of infection Description: INTERVENTIONS 1. Place patient in private room or in room with patient with same disease 2. Discard single-use items 3. Clean reusable equipment between patients 4. Wear gloves for direct and indirect contact with patient or contaminants 5. Change gloves between tasks and procedures 6. Wash hands before and after caring for each patient 7. Wear appropriate personal protective equipment in relation to the indicated isolation type 8. Place appropriate isolation signage on patient's door 9. Provide patient/ patient junior sales representative with isolation education. Outcome: Progressing Note: Evaluation of progress towards goal: Patient remains free from signs of infection at this time. Will continue to monitor. * Plan of Care - Keshawn Alex MD - 06/11/2025 3:53 PM EDT Images from the original note were not included. 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 Anticoagulation has been held since admission and he is tolerating prophylactic doses of heparin. Repeat brain imaging and DVT scan performed shows relatively stable findings. Follow-up: Agree with Neurology regarding holding therapeutic anticoagulation for now Continue prophylactic anticoagulation (Lovenox 40 mg daily or subacute heparin 5000 units t.i.d.) Ensure sequential compression devices on bilateral lower extremity when not ambulating Until the patient can resume therapeutic anticoagulation, we recommend weekly duplex venous ultrasound of bilateral lower extremities to rule out proximal propagation of the thrombosis or new proximal DVTs, which would be an indication for an IVC filter. Vascular Medicine will sign off, please do not hesitate to contact us with questions or concerns. Keshawn Alex MD, MPH Vascular Medicine Fellow * Discharge Planning Note - YUMIKO Plasencia - 06/11/2025 3:36 PM EDT Ongoing Assessment for Discharge Needs Reviewed discharge milestones and patient needs related to discharge plan. Current estimated discharge date of Jun 15, 2025 has been reviewed by treatment team. Ongoing Assessment for Discharge Needs Flowsheet Row Most Recent Value Referral To Community Referrals / Resources Provided Denies needs Services Requested Patient expects to be discharged to: SNF Does the patient wish to have family/friend/caregiver involved in their discharge planning? Yes Does the patient plan to return home to a community setting? No, patient to discharge to facility-based provider. See Discharge Disposition Discharge Disposition SNF Does the patient need discharge transportation arranged? Yes Mobility issues discussed with transportation provider No Patient choice offered Yes List Provided Yes [facility] List Provided Nursing Home Facility Discussed patient during rounds today. Met with patient's and son Sanket in room and explained role. Patient is sleeping. Patient was admitted for: ICH. Prior to arrival patient lived with son Raghavendra in a 1 story home with 2 stairs to enter into home. Support system: and sons and dtr. Confirmed PCP with patient's : ANDREA Hansen. Confirmed pharmacy with patient's : [facility]. Previous DME at home: none. Previous Home Care agency: none. Patient's and son denied any issues with affording food or medications. Hx of alcohol use: denied. Hx of illicit drug use: denied. Hx of tobacco use: smokes but family unsure how much. Patient's readmission risk is: 10%. Readmission risk w ill be avoided by: patient transferring to a SNF. Provided with Snf list that she will review to provide choices. Floor nurse aware. - YUMIKO PLASENCIA 06/11/25 3:40 PM * PT/OT/BLOCK HACKER - Danny Herrera PTA - 06/11/2025 1:33 PM EDT Physical Therapy PT Type of Visit: (P) Medical deferral Reason For Medical Deferral: (P) (pt sleeping soundly at this time, will continue per POC as able.) Cosigned by Yelitza Jauregui PT at 06/11/2025 3:08 PM EDT Associated attestation - Yelitza Jauregui PT - 06/11/2025 3:08 PM EDT I have reviewed and agree with this note and education documentation for this visit. * PT/OT/BLOCK HACKER - MARU Brown - 06/11/2025 1:29 PM EDT Occupational Therapy OT Type of Visit: Medical deferral (pt sleeping soundly, not able to arouse pt) Cosigned by STEPH Gant/Brendon at 06/11/2025 2:56 PM EDT Associated attestation - Dixon Murphy OTR/Brendon - 06/11/2025 2:56 PM EDT I have reviewed and agree with this note and education documentation for this visit. * Plan of Care - Rick Griffiths RN - 06/10/2025 11:21 PM EDTSummary: Nursing Care Plan for Gianni Babin Nursing Care Plan Problem: Pain Goal: Patient goal is pain score less than 4, able to rest, and participant in treatment plan as appropriate Description: INTERVENTIONS: 1. Encourage patient or legal junior sales representative to report early pain and ask for pain medicine when needed 2. Assess pain using appropriate pain scale and include the scale used when documenting 3. Administer analgesics based on type and severity of pain and evaluate response within appropriate time frame 4. Implement non-pharmacological measures as appropriate and evaluate response 5. Consider cultural and social influences on pain and pain management 6. Notify LIP if interventions ineffective or patient reports new pain 7. Monitor vital signs including pulse ox, end-tidal CO2 based on pain intervention 8. Reassess pain per policy 9. Teach patient or legal junior sales representative interventions for comforting Outcome: Progressing Note: Evaluation of progress towards goal: Gianni was assessed for manifestations of pain. He denies pain at this time. Interventions implemented and maintained to promote patient comfort. Encouraged to report breakthrough pain appropriately. Pain level managed at this time. Problem: Safety Goal: Patient will be injury free during hospitalization Description: INTERVENTIONS: 1. Assess patient's risk for falls and implement fall prevention plan of care per policy 2. Provide and maintain a safe environment 3. Proper use of double Identifiers 4. Medication administration using the 5 rights 5. Hand hygiene 6. Specimens are labeled at the bedside 7. Instruct patient/ patient junior sales representative about use of safety devices 8. Include patient/ patient junior sales representative in decisions related to safety Outcome: Progressing Note: Evaluation of progress towards goal: Safety protocols and interventions maintained. Gianni was assessed with no evidence of injury at this time. Problem: Infection Goal: Absence of infection during hospitalization Description: INTERVENTIONS 1. Assess and monitor for signs and symptoms of infection. 2. Monitor lab/diagnostic results. 3. Monitor all insertion sites i.e., indwelling lines, tubes and drains. 4. Monitor endotracheal (as able) and nasal secretions for changes in amount and color. 5. Administer medications as ordered. 6. Instruct and encourage patient and family to use good hand hygiene technique. 7. Identify and instruct patient/patient junior sales representative in use of appropriate isolation precautionsfor identified infection/symptoms. 8. Provide and discuss with patient/patient junior sales representative on educational MDRO sheet. 9. Encourage and monitor nutritional status daily and consult cleaner window if indicated. 10. Implement neutropenic guidelines as needed. Outcome: Progressing Note: Evaluation of progress towards goal: Gianni was assessed for possible risk of infection. After implementation of interventions the patient remains free of signs and symptoms that might indicate infection at this time. Lab testing, temperature, and skin integrity within defined limits. Infection control interventions maintained. Problem: Knowledge Deficit Goal: Patient/patient junior sales representative demonstrates understanding of disease process, treatment plan,medications, and discharge instructions Description: INTERVENTIONS 1. Complete learning assessment and assess knowledge base 2. Provide teaching at level of understanding 3. Provide teaching via preferred learning method(s) Outcome: Progressing Note: Evaluation of progress towards goal: Gianni was informed of treatment plan. He verbalized understanding of treatment plan. However, reinforcement is needed due to clinical presentation. Encouraged to voice concerns as needed. Problem: Discharge Planning Goal: Discharge to post-acute care, other facility, or home with appropriate resources Description: Patient's goal is: INTERVENTIONS 1. Conduct assessment to determine patient/family and health care team treatment goals, and need for post-acute services based on payer coverage, community resources, and patient preferences, and barriers to discharge 2. Coordinate with Social work, Care Navigation, and Utilization Review to arrange appropriate level of services according to patient's needs based on patient preference and payer coverage in collaboration with the physician and health care team 3. Address psychosocial, clinical, and financial barriers to discharge as identified in assessment in conjunction with the patient/family and health care team 4. Consult appropriate ancillary services (i.e.. PT/OT/ST, etc) as needed 5. Communicate with and update the patient/family, physician, and health care team regarding progress on the discharge plan 6. Identify discharge learning needs (meds, wound care, etc). 7. Arrange for needed discharge transportation as appropriate Outcome: Progressing Note: Evaluation of progress towards goal: Interventions implemented and maintained. Plan in place to discharge/transfer when clinically indicated. Problem: Neurological Deficit Goal: Neurological status is stable or improving Description: Patient's goal is: INTERVENTIONS 1. Complete Neurological assessment as indicated/ordered 2. Initiate measures to prevent increased intracranial pressure 3. Monitor and assess patient's level of consciousness, motor function, sensory function, and levelof assistance needed for ADLs 4. Monitor and report changes from baseline 5. Maintain blood pressure and fluid volume within ordered parameters to optimize cerebral perfusion and minimize risk of hemorrhage 6. Monitor labs and diagnostic tests 7. Administer anti-seizure medications as ordered 8. Maintain airway, patient safety and administer oxygen as ordered 9. Monitor patient for seizure activity, document and report duration and description of seizure toLIP 10. If seizure occurs, turn patient to side and suction secretions as needed 11. Reorient patient post seizure 12. Seizure pads on all 4 side rails 13. Instruct patient/family to notify RN of any seizure activity 14. Instruct patient/family to call for assistance with activity based on assessment 15. Utilize bleeding precautions if thrombolytic given Outcome: Progressing Note: Evaluation of progress towards goal: Interventions implemented and maintained as necessary for clinical presentation. Assessment performed with no evidence of change in neurological functioningat this time. Problem: Potential for Compromised Skin Integrity Goal: Skin integrity is maintained or improved Description: Patient's goal is: INTERVENTIONS 1. Perform initial skin assessment on admission and as needed 2. Turn patient every 2 hours and PRN 3. Relieve pressure to bony prominences 4. Avoid shearing 5. Keep skin clean and dry 6. Alternate a full bath with partial baths for elderly 7. Apply lotion/moisturizer on skin 8. Monitor patient's hygiene practices 9. Float heels 10. Collaborate with interdisciplinary team and initiate plans and interventions as needed Outcome: Progressing Note: Evaluation of progress towards goal: Skin assessment performed. Skin breakdown interventions as listed above implemented and maintained to prevent possible impaired skin integrity. Richard skin integrity is maintained at this time. Goal: Patient's nutritional intake is adequate Description: Patient's goal is: INTERVENTIONS 1. Assess and monitor food intake and supplements, patient food preferences, nausea, vomiting, labs, oral cavity (gums, teeth, tongue, mucosa), proper denture fit, and cultural beliefs 2. Monitor for signs of hypoglycemia and hyperglycemia 3. Collaborate with interdisciplinary team and initiate plan and interventions as ordered 4. Monitor patient's weight 5. Assist patient with meals/food selection 6. Assist patient with eating 7. Allow adequate time for meals 8. Provide pleasant environment during mealtime 9. Increase social contact during mealtimes 10. Plan activities to conserve energy 11. Encourage/perform oral hygiene as appropriate 12. Encourage patient to take dietary supplement as ordered 13. Collaborate with clinical cleaner window 14. Include patient/ patient's junior sales representative in decisions related to nutrition Outcome: Progressing Note: Evaluation of progress towards goal: Interventions implemented and maintained. Assessment findings indicate no evidence of impaired nutrition at this time. Gianni remains on a Tube Feed diet at a goal rate of 65 at this time. Problem: Moderate - High Risk Fall Score Description: Long Fall Score of =/> 25 or indicated by [facility] Assessment Goal: Patient should be free from fall Description: Interventions: 1. [place] to environment 2. Hourly rounds addressing the 4 P's (Pain, Positioning, Possessions, Potty) 3. Clear area of hazards (spills, clutter, electrical cords, unnecessary equipment) 4. Place equipment (bed & TV controls, call light, phone, urinal) within reach 5. Encourage patient to wear glasses and hearing aides as appropriate 6. Maintain bed in lowest position 7. Lock wheels on bed/wheelchair 8. Provide adequate lighting, including night light 9. Assess need for additional bedding, food/fluids, pain med's prior to sleep/routinely 10. Provide gripper slippers or personal non-skid footwear 11. Teach patient and patient junior sales representative to maintain environment for safety and engage in all aspects of fall prevention program 12. Remind patient to call for help before getting out of bed 13. Initiate bed/chair/exit alarms supportive devices as appropriate, (chair wedge, no-skid floor mat, raised edge mattress, hip protectors) 14. Locate patient bed assignment for optimal visualization 15. Evaluate and identify Safe Patient Handling Equipment needs 16. Provide supervision when out of bed or chair 17. Utilize gait belt as needed to assist with ambulation 18. Place adaptive equipment (cane, walker) within reach 19. Request patient junior sales representative bring adaptive equipment/mobility aids from home or obtain and provide as needed 20. Consult pharmacy regarding effects of med's affecting mobility, cognition, and alternatives 21. Obtain physician order for PT if risk factors associated with mobility are present 22. Obtain physician order for OT as appropriate 23. Utilize diversional activities 24. Educate patient and patient junior sales representative how to maintain a safe environment during visitationtimes (notify nurse prior to leaving bedside) 25. Consider appropriateness of medical or non-medical surgical tech 26. Set up voiding schedule as appropriate (every 2 hours) Outcome: Progressing Note: Evaluation of progress towards goal: Gianni was identified as having a high risk of falling as indicated by the Long Fall Risk Scale. Fall prevention measures implemented and maintained. He remains free of falls at this time. Problem: Safety - Medical Restraint Goal: Remains free of injury from restraints (Restraint for Interference with Radio Script Writer) Description: INTERVENTIONS: 1. Determine that other, less restrictive measures have been tried or would not be effective beforeapplying the restraint 2. Evaluate the patient's condition at the time of restraint application 3. Inform patient/family regarding the reason for restraint 4. Q2H: Monitor safety, Vital signs, psychosocial status, signs of injury, skin integrity, circulation, neurovascular status in affected extremities, respiratory status, comfort, nutrition and hydration, hygiene, ROM, elimination needs 5. Doctor will be notified of restraint 6. RN properly applies restraints per physician order Outcome: Progressing Note: Evaluation of progress towards goal: Restraints assessed, pulses palpable, skin warm, and skin integrity intact. Less restrictive alternatives implemented with no effect. Restraint implemented and maintained per provider order. No evidence noted of injury from restraint at this time. Goal: Free from restraint(s) (Restraint for Interference with Radio Script Writer) Description: INTERVENTIONS: 1. ONCE/SHIFT or MINIMUM Q12H: Assess and document the continuing need for restraints 2. Order is valid for the duration of the episode of care 3. Discontinue at the earliest possible time once the reason for restraints no longer exists 4. Identify and implement measures to help patient regain control 5. Food, fluids, and toilet offered at a minimum of every 2 hours 6. RN modifies the patient's plan of care by entering a problem statement related to safety; individualizes the safety outcome Outcome: Progressing Note: Evaluation of progress towards goal: Restraints assessed, pulses palpable, skin warm, and skin integrity intact. Less restrictive alternatives implemented with no effect. Restraint implemented and maintained per provider order. * Plan of Care - Jose Howard RN - 06/09/2025 11:51 PM EDT Problem: Knowledge Deficit Goal: Patient/patient junior sales representative demonstrates understanding of disease process, treatment plan,medications, and discharge instructions Description: INTERVENTIONS 1. Complete learning assessment and assess knowledge base 2. Provide teaching at level of understanding 3. Provide teaching via preferred learning method(s) Outcome: Progressing Problem: Potential for Aspiration Goal: Patient's risk of aspiration is minimized Description: INTERVENTIONS 1. Assess and monitor vital signs, respiratory status, and labs (WBC) 2. Monitor for signs of aspiration (tachypnea, cough, rales, wheezing, cyanosis, fever) 3. Assess and monitor patient's ability to swallow 4. Place patient up in chair to eat if possible 5. Elevate head of bed 90 degrees to eat if unable to get patient up into chair 6. Supervise patient during oral intake 7. Instruct patient to take small bites 8. Instruct patient to take small single sips when taking liquids 9. Follow patient-specific strategies generated by speech pathologist 10. Complete bedside swallow screen if appropriate and take actions as indicated. 11. Administer prescribed medications and monitor effects Outcome: Progressing Problem: Potential for Inadequate Tissue Perfusion - Venous Goal: Tissue perfusion is adequate - venous Description: Patient's goal is: INTERVENTIONS 1. Assess and monitor skin color and temperature, skin integrity, pulses, capillary refill, edema, pain in extremities and Homans' sign 2. Monitor for signs and symptoms (dyspnea, tachypnea, and tachycardia) 3. Encourage ambulation/activity per patient's tolerance and physician order 4. Elevate feet when in chair 5. Encourage patient to do ankle pump exercises 6. Apply anti-embolism stockings/devices as ordered Outcome: Progressing Problem: Safety - Medical Restraint Goal: Remains free of injury from restraints (Restraint for Interference with Radio Script Writer) Description: INTERVENTIONS: 1. Determine that other, less restrictive measures have been tried or would not be effective beforeapplying the restraint 2. Evaluate the patient's condition at the time of restraint application 3. Inform patient/family regarding the reason for restraint 4. Q2H: Monitor safety, Vital signs, psychosocial status, signs of injury, skin integrity, circulation, neurovascular status in affected extremities, respiratory status, comfort, nutrition and hydration, hygiene, ROM, elimination needs 5. Doctor will be notified of restraint 6. RN properly applies restraints per physician order Outcome: Progressing Goal: Free from restraint(s) (Restraint for Interference with Radio Script Writer) Description: INTERVENTIONS: 1. ONCE/SHIFT or MINIMUM Q12H: Assess and document the continuing need for restraints 2. Order is valid for the duration of the episode of care 3. Discontinue at the earliest possible time once the reason for restraints no longer exists 4. Identify and implement measures to help patient regain control 5. Food, fluids, and toilet offered at a minimum of every 2 hours 6. RN modifies the patient's plan of care by entering a problem statement related to safety; individualizes the safety outcome Outcome: Progressing Problem: Pain Goal: Patient goal is pain score less than 4, able to rest, and participant in treatment plan as appropriate Description: INTERVENTIONS: 1. Encourage patient or legal junior sales representative to report early pain and ask for pain medicine when needed 2. Assess pain using appropriate pain scale and include the scale used when documenting 3. Administer analgesics based on type and severity of pain and evaluate response within appropriate time frame 4. Implement non-pharmacological measures as appropriate and evaluate response 5. Consider cultural and social influences on pain and pain management 6. Notify LIP if interventions ineffective or patient reports new pain 7. Monitor vital signs including pulse ox, end-tidal CO2 based on pain intervention 8. Reassess pain per policy 9. Teach patient or legal junior sales representative interventions for comforting Outcome: Adequate for Discharge * PT/OT/BLOCK HACKER - BATOOL Brown/Brendon - 06/09/2025 3:05 PM EDT Occupational Therapy Treatment Discharge Recommendations for Safe Patient Transition OT Discharge Disposition Recommendation: Post acute - moderate OT Post Acute Moderate Rehab Needs: Recommend moderate intensity rehab, Tolerate 1-2 hrs of therapy3-5 days/wk, Subacute or chronic functional impairment 6 Clicks: Daily Activity Putting on and taking off regular lower body clothing?: Total Bathing (including washing, rinsing, drying)?: A lot Toileting, which includes using toilet, bedpan or urinal?: Total Putting on and taking off regular upper body clothing?: A lot Taking care of personal grooming such as brushing teeth?: A lot Eating meals?: Total (NG) Scoring Daily Activity Raw Score: 9 CMS G Code Modifier: CL Therapy Plan Need for skilled Occupational Therapy to address deficits in ADL independence and functional mobility due to a status decline resulting from 06/09/25 1349 UE ROM UE ROM exercises performed? Yes Shoulder horizontal abduction/adduction x Elbow flexion/extension x Other punches Repetitions 15 reps w/bilat UE; required tactile cuing for technique OT Treatment/Interventions: ADL retraining, UE strengthening/ROM, Cognitive reorientation, Balance,Bed mobility, Functional transfer training, Patient/family training, Home management, Gait training, Functional activities OT Frequency: 4-5days/week Assessment Patient Assessment Patient Response to Treatment: Progressing toward goals Visit RN Communication: Yes Medical Record Reviewed: Yes OT Type of Visit: Treatment Precautions Activity: ok for therapy per RN Hannah Equipment: gait belt, RW, NG, bilat UE Telemetry/Refractory Specialist: Yes Oxygen Used: 4L Pain Assessment Pain Assessment: No/denies pain ADL / IADL Hand Dominance: Right Where Assessed: Edge of bed Grooming Assistance: Mod assist (for thoroughness and safety when washing face d/t NG; completed seated) Grooming Deficit: Wash/dry face Toilet/Commode Assistance: Total assist (for hygiene d/t BM noted once standing; completed in standing;) Hearing / Speech / Vision Hearing: Within Functional Limits Speech: Garbled, Expressive aphasia, Receptive aphasia Cognition Overall Cognitive Status: Exceptions to Within Functional Limits Following Commands: Follows one step commands with increased time, Follows one step commands with repetition Other: very fidgity, required constant cuing to prevent pulling on lines and NG Bed Mobility Supine to Sit: Mod assist, Left (x2; HOB slightly elevated) Sit to Supine: Max assist (x2) Transfers Sit to Stand: Mod assist, Min assist (modx2 w/1st attempt; Benjamín w/2nd attempt) Stand to Sit: Min assist, Verbal cues Other: completed STS 2xs Gait Gait Assistance: Mod assist, Verbal cues Assistive Device: Rolling walker Gait Distance: to side step to HOB Balance Sitting Balance: Static: (fair-) Sitting Balance: Dynamic: (poor+ d/t posterior drift) Standing Balance: Static: (fair- to poor+) Standing Balance: Dynamic: (poor+ to poor w/RW) Other: stood about 10mins and 7mins to increase endurance and steadiness, engaged in a balloon volley w/2nd stand, required cuing for techique, demo'd difficutly w/following cues Activity Tolerance Endurance: Tolerates 30 minutes activity with rest breaks Plan Occupational Therapy Care Plan Occupational Therapy Care Plan (Active) Template: OT - Occupational Therapy Problem: Activity Tolerance Dates: Start: 06/07/25 Disciplines: OT Goal: Tolerate 30 minutes of activity WITH rest breaks Dates: Start: 06/07/25 Expected End: 07/08/25 Description: Goal Description: Disciplines: OT Outcomes Date/Time User Outcome 06/09/25 1503 Sue Benaj-Rawls, BATOOL/L Progressing Problem: Bathing LB Dates: Start: 06/07/25 Disciplines: OT Goal: Patient will perform bathing LB with Minimum Assist Dates: Start: 06/07/25 Expected End: 07/08/25 Description: Goal Description: Disciplines: OT Problem: Bathing UB Dates: Start: 06/07/25 Disciplines: OT Goal: Patient will perform bathing UB with Set-Up Dates: Start: 06/07/25 Expected End: 07/08/25 Description: Goal Description: Disciplines: OT Problem: Bed Mobility Dates: Start: 06/07/25 Disciplines: OT Goal: Patient will perform bed mobility with Contact Guard Dates: Start: 06/07/25 Expected End: 07/08/25 Description: Goal Description: Disciplines: OT Outcomes Date/Time User Outcome 06/09/25 1503 Sue Yousif-Rawls, TECHNICAL SUPPORT COORDINATOR/L Progressing Problem: Cognition Dates: Start: 06/07/25 Disciplines: OT Goal: Improve cognition Dates: Start: 06/07/25 Expected End: 07/08/25 Description: Follow one step commands 100% of the time Disciplines: OT Outcomes Date/Time User Outcome 06/09/25 1503 Sue Yousif-Rawls, TECHNICAL SUPPORT COORDINATOR/L Progressing Problem: Dressing LB Dates: Start: 06/07/25 Disciplines: OT Goal: Patient will perform dressing LB with Minimum Assist Dates: Start: 06/07/25 Expected End: 07/08/25 Description: Goal Description: Disciplines: OT Problem: Dressing UB Dates: Start: 06/07/25 Disciplines: OT Goal: Patient will perform dressing UB with Set-Up Dates: Start: 06/07/25 Expected End: 07/08/25 Description: Goal Description: Disciplines: OT Problem: Functional Mobility Dates: Start: 06/07/25 Disciplines: OT Goal: Patient will perform functional mobility with Minimum Assist Dates: Start: 06/07/25 Expected End: 07/08/25 Description: Goal Description: Disciplines: OT Outcomes Date/Time User Outcome 06/09/25 1503 Sue Yousif-Rawls, TECHNICAL SUPPORT COORDINATOR/L Progressing Problem: Grooming Dates: Start: 06/07/25 Disciplines: OT Goal: Patient will perform grooming with Minimum Assist Dates: Start: 06/07/25 Expected End: 07/08/25 Description: Goal Description: Disciplines: OT Outcomes Date/Time User Outcome 06/09/25 1503 Sue Yousif-Rawls, TECHNICAL SUPPORT COORDINATOR/L Progressing Problem: Home Management Dates: Start: 06/07/25 Disciplines: OT Goal: Patient will perform home management with Minimum Assist Dates: Start: 06/07/25 Expected End: 07/08/25 Description: Goal Description: Disciplines: OT Problem: Sitting Balance Dates: Start: 06/07/25 Disciplines: OT Goal: Improve balance to good Dates: Start: 06/07/25 Expected End: 07/08/25 Description: Good dynamic balance, Disciplines: OT Outcomes Date/Time User Outcome 06/09/25 1503 Sue Yousif-Rawls, BATOOL/L Progressing Problem: Standing Balance Dates: Start: 06/07/25 Disciplines: OT Goal: Improve balance to good Dates: Start: 06/07/25 Expected End: 07/08/25 Description: Good dynamic balance. Disciplines: OT Outcomes Date/Time User Outcome 06/09/25 1503 Sue Yousif-Rawls, BATOOL/L Progressing Problem: Strength Dates: Start: 06/07/25 Disciplines: OT Goal: Improve strength Dates: Start: 06/07/25 Expected End: 07/08/25 Description: Improve bilateral upper extremity strength to be able to complete full ADL tasks without rest breaks. Disciplines: OT Outcomes Date/Time User Outcome 06/09/25 1503 Sue Hernandez TECHNICAL SUPPORT COORDINATOR/L Progressing Problem: Toilet Transfers Dates: Start: 06/07/25 Disciplines: OT Goal: Patient will perform toilet transfers with Minimum Assist Dates: Start: 06/07/25 Expected End: 07/08/25 Description: Goal Description: Disciplines: OT Problem: Toileting Dates: Start: 06/07/25 Disciplines: OT Goal: Patient will perform toileting with Minimum Assist Dates: Start: 06/07/25 Expected End: 07/08/25 Description: Goal Description: Disciplines: OT Outcomes Date/Time User Outcome 06/09/25 1503 BATOOL Brown/L Not Progressing Problem: Transfers Dates: Start: 06/07/25 Disciplines: OT Goal: Patient will perform transfers with Contact Guard Dates: Start: 06/07/25 Expected End: 07/08/25 Description: Goal Description: Disciplines: OT Outcomes Date/Time User Outcome 06/09/25 1503 BATOOL Brown/Brendon Progressing Occupational Therapy Care Plan (Resolved) There are no resolved problems. Principal Problem: ICH (intracerebral hemorrhage) ([facility]) Cosigned by STEPH Coulter/Brendon at 06/10/2025 6:51 AM EDT Associated attestation - Holli Weston OTR/Brendon - 06/10/2025 6:51 AM EDT I have reviewed and agree with this note and education documentation for this visit. * PT/OT/BLOCK HACKER - Stan Graham PTA - 06/09/2025 1:50 PM EDT Physical Therapy Treatment Discharge Recommendations for Safe Patient Transition PT Discharge Disposition Recommendation: Post acute - moderate PT Post Acute Moderate Rehab Needs: Recommend moderate intensity rehab, Tolerate 1-2 hrs of therapy3-5 days/wk, Subacute or chronic functional impairment Current Impairments Informing Therapy Recommendation: Ambulation status/safety, Cognition, Fall risk, ADL status, Endurance level 6 Clicks: Basic Mobility Turning from your back to your side while in a flat bed without using bed rails?: A lot Moving from lying on your back to sitting on side of flat bed without using bed rails?: A lot Moving to and from bed to a chair (including w/c)?: Total Standing up from a chair using your arms (e.g. w/c or bedside chair)?: A lot To walk in hospital room?: Total Climbing 3-5 steps with a railing?: Total Scoring 6 Clicks: Basic Mobility Raw Score: 9 CMS G Code Modifier: CL PT Treatment/Interventions: Functional transfer training, LE strengthening/ROM, Patient/family training, Equipment eval/education, Balance, Bed mobility, Gait training, Neuromuscular reeducation PT Frequency: 4-5days/week PT Duration: 06/30/25 Assessment Patient Assessment Therapy Problem List: Decreased balance, Decreased mobility, Decreased cognition, Decreased safe judgement during ADL, Decreased UE strength, Decreased LE strength Patient Response to Treatment: Progressing toward goals Mood/Affect: Appropriate for circumstances Rehab Prognosis: Good, With continued PT status post acute discharge Visit RN Communication: Yes Medical Record Reviewed: Yes PT Type of Visit: Treatment Precautions Activity: early mobility pass, okay per RN Equipment: gait belt, RW, NG, IV pole, mayo Telemetry/Refractory Specialist: Yes Oxygen Used: 4L O2 via NC Other: Seizure precautions. High fall risk, confusion, bilat mittens/soft restraints Pain Assessment Pain Assessment: No/denies pain Pain Score: 0 Hearing / Speech / Vision Speech: Garbled, Expressive aphasia, Receptive aphasia Cognition Overall Cognitive Status: Exceptions to Within Functional Limits Arousal/Alertness: Delayed responses to stimuli Attention Span: Difficulty attending to directions Following Commands: Follows one step commands with repetition, Follows one step commands with increased time Safety Judgment: Decreased awareness of need for assistance, Decreased awareness of need for safety Awareness of Errors: Assistance required to correct errors made, Decreased awareness of errors, Assistance required to identify errors made Insight of Deficits: Decreased awareness of deficits Problem Solving: Nonfunctional Interfering Components: Processing speed, Working memory, Attention - sustained, Attention - divided, Attention to detail, Motor planning, Attention - selective Other: Pt with poor safety awarness and increased time needed for processing. Bed Mobility Supine to Sit: Mod assist, Verbal cues, Left (x2) Sit to Supine: Max assist, Verbal cues, Left (x2) Other: Supine/sit modA x 2. Sit/supine maxA x 2. Cues needed for technique/particapation with poor understanding. HOB partially raised during supine/sit and flat during sit/supine. No use of bed rail. Transfers Sit to Stand: Mod assist, Verbal cues, Min assist (x 1-2) Stand to Sit: Min assist, Verbal cues (x1) Other: First sit/stand from EOB to RW modA x 2. Second sit/stand from EOB to RW Benjamín x 1. Stand/sitminAx 1. Cues needed for hand placement and increased eccentric control. Poor to fair understandingof cues. Gait Base of Support: Wide Pattern: Decreased shani, Antalgic gait, R Decreased heel strike, L Decreased heel strike, R Decreased foot clearance, L Decreased foot clearance, Forward trunk (decreased step length) Gait Assistance: Min assist, Verbal cues (x2) Assistive Device: Rolling walker Gait Distance: 3 side steps toward HOB Limiting Factors to Gait: Fatigue, Weakness, Decreased safety, Cognition/difficulty following directions Other: Completed 3 side steps toward HOB with RW and Benjamín x 2. Cues needed for posture, step length, and safety with AD. Poor to fair understanding. Balance Balance Evaluation: Exceptions to Functional Limits Sitting Balance: Static: Fair Sitting Balance: Dynamic: Fair (-) Standing Balance: Static: Fair (-) Standing Balance: Dynamic: Poor (+) Other: Unsupported sitting on EOB for extended periods in prep for standing and to complete ther ex. CGA/Benjamín x 1 needed to maintain balance d/t slight posterior lean. Stood at RW ~10 min x 1, 6 min x 1 with Benjamín/modA x 1 to maintain his balance. During second stand pt complete balloon tap using RUE while LUE on RW. During stand pt needed cues for posture, hand placement, and increased TKE bilat. 06/09/25 1350 LE Seated LE seated exercises performed? Yes Ankle pumps 15 Long arc quads 10 Other Exercises completed AROM with cues for technique. Fatigued quickly. Activity Tolerance Endurance: Tolerates >30 minutes activity with rest breaks Other: Rest breaks as needed d/t fatigue. Cues to redirect and stay on task. Plan Physical Therapy Care Plan Physical Therapy Care Plan (Active) Template: PT - Physical Therapy Problem: Activity Tolerance Dates: Start: 06/07/25 Disciplines: PT Goal: Tolerate 30 minutes of activity WITH rest breaks Dates: Start: 06/07/25 Expected End: 06/30/25 Description: Goal Description: For seated and standing activities for improved mobility Disciplines: PT Outcomes Date/Time User Outcome 06/09/25 144Rivera Graham PTA Progressing Problem: Bed Mobility Dates: Start: 06/07/25 Disciplines: PT Goal: Patient will perform bed mobility with Minimum Assist Dates: Start: 06/07/25 Expected End: 06/30/25 Description: Goal Description: Disciplines: PT Outcomes Date/Time User Outcome 06/09/25 144Rivera Graham PTA Progressing Problem: Gait Dates: Start: 06/07/25 Disciplines: PT Goal: Patient will perform gait with Minimum Assist Dates: Start: 06/07/25 Expected End: 06/30/25 Description: 100 feet with RW support for safe mobility Goal Description: Disciplines: PT Outcomes Date/Time User Outcome 06/09/25 144Rivera Graham BARROW WORKER HELPER Progressing Problem: Sitting Balance Dates: Start: 06/07/25 Disciplines: PT Goal: Improve balance to good Dates: Start: 06/07/25 Expected End: 06/30/25 Description: Static Dynamic for safe ADLs and transfers Disciplines: PT Outcomes Date/Time User Outcome 06/09/25 144Rivera Graham BARROW WORKER HELPER Progressing Problem: Standing Balance Dates: Start: 06/07/25 Disciplines: PT Goal: Improve balance to fair Dates: Start: 06/07/25 Expected End: 06/30/25 Description: Static Dynamic with walker support for safe mobility, decreased fall risk Disciplines: PT Outcomes Date/Time User Outcome 06/09/25 144Rivera Graham BARROW WORKER HELPER Progressing Problem: Transfers Dates: Start: 06/07/25 Disciplines: PT Goal: Patient will perform transfers with Minimum Assist Dates: Start: 06/07/25 Expected End: 06/30/25 Description: Goal Description: with RW support Disciplines: PT Outcomes Date/Time User Outcome 06/09/25 4595 Stan Graham PTA Progressing Physical Therapy Care Plan (Resolved) There are no resolved problems. Principal Problem: ICH (intracerebral hemorrhage) ([facility]) Cosigned by Kali Hall PT at 06/10/2025 6:49 AM EDT Associated attestation - Kali Hall PT - 06/10/2025 6:49 AM EDT I have reviewed and agree with this note and education documentation for this visit. * Plan of Care - Shantel Gunn RN - 06/08/2025 7:42 PM EDT Problem: Pain Goal: Patient goal is pain score less than 4, able to rest, and participant in treatment plan as appropriate Description: INTERVENTIONS: 1. Encourage patient or legal junior sales representative to report early pain and ask for pain medicine when needed 2. Assess pain using appropriate pain scale and include the scale used when documenting 3. Administer analgesics based on type and severity of pain and evaluate response within appropriate time frame 4. Implement non-pharmacological measures as appropriate and evaluate response 5. Consider cultural and social influences on pain and pain management 6. Notify LIP if interventions ineffective or patient reports new pain 7. Monitor vital signs including pulse ox, end-tidal CO2 based on pain intervention 8. Reassess pain per policy 9. Teach patient or legal junior sales representative interventions for comforting Outcome: Progressing Note: Evaluation of progress towards goal: Patient has PRN pain medication. Checking with every assessment. Monitoring vitals. Problem: Safety Goal: Patient will be injury free during hospitalization Description: INTERVENTIONS: 1. Assess patient's risk for falls and implement fall prevention plan of care per policy 2. Provide and maintain a safe environment 3. Proper use of double Identifiers 4. Medication administration using the 5 rights 5. Hand hygiene 6. Specimens are labeled at the bedside 7. Instruct patient/ patient junior sales representative about use of safety devices 8. Include patient/ patient junior sales representative in decisions related to safety Outcome: Progressing Note: Evaluation of progress towards goal: Patient safety maintained, call light in reach, area clear of hazards, hourly rounding continued, bed locked in lowest position, alarm on as applicable, nonskid socks on, safety educated completed with patient/family, no injuries noted at this time. Problem: Infection Goal: Absence of infection during hospitalization Description: INTERVENTIONS 1. Assess and monitor for signs and symptoms of infection. 2. Monitor lab/diagnostic results. 3. Monitor all insertion sites i.e., indwelling lines, tubes and drains. 4. Monitor endotracheal (as able) and nasal secretions for changes in amount and color. 5. Administer medications as ordered. 6. Instruct and encourage patient and family to use good hand hygiene technique. 7. Identify and instruct patient/patient junior sales representative in use of appropriate isolation precautionsfor identified infection/symptoms. 8. Provide and discuss with patient/patient junior sales representative on educational MDRO sheet. 9. Encourage and monitor nutritional status daily and consult cleaner window if indicated. 10. Implement neutropenic guidelines as needed. Outcome: Progressing Note: Evaluation of progress towards goal: Patient remains free from signs of infection at this time. Will continue to monitor. Problem: Knowledge Deficit Goal: Patient/patient junior sales representative demonstrates understanding of disease process, treatment plan,medications, and discharge instructions Description: INTERVENTIONS 1. Complete learning assessment and assess knowledge base 2. Provide teaching at level of understanding 3. Provide teaching via preferred learning method(s) Outcome: Progressing Note: Evaluation of progress towards goal: Patient and family is aware of the plan of care. Education provided as needed. Problem: Discharge Planning Goal: Discharge to post-acute care, other facility, or home with appropriate resources Description: Patient's goal is: INTERVENTIONS 1. Conduct assessment to determine patient/family and health care team treatment goals, and need for post-acute services based on payer coverage, community resources, and patient preferences, and barriers to discharge 2. Coordinate with Social work, Care Navigation, and Utilization Review to arrange appropriate level of services according to patient's needs based on patient preference and payer coverage in collaboration with the physician and health care team 3. Address psychosocial, clinical, and financial barriers to discharge as identified in assessment in conjunction with the patient/family and health care team 4. Consult appropriate ancillary services (i.e.. PT/OT/ST, etc) as needed 5. Communicate with and update the patient/family, physician, and health care team regarding progress on the discharge plan 6. Identify discharge learning needs (meds, wound care, etc). 7. Arrange for needed discharge transportation as appropriate Outcome: Progressing Note: Evaluation of progress towards goal: Patient and family are aware of plan of care and discharge plans. Will continue to monitor. Problem: Neurological Deficit Goal: Neurological status is stable or improving Description: Patient's goal is: INTERVENTIONS 1. Complete Neurological assessment as indicated/ordered 2. Initiate measures to prevent increased intracranial pressure 3. Monitor and assess patient's level of consciousness, motor function, sensory function, and levelof assistance needed for ADLs 4. Monitor and report changes from baseline 5. Maintain blood pressure and fluid volume within ordered parameters to optimize cerebral perfusion and minimize risk of hemorrhage 6. Monitor labs and diagnostic tests 7. Administer anti-seizure medications as ordered 8. Maintain airway, patient safety and administer oxygen as ordered 9. Monitor patient for seizure activity, document and report duration and description of seizure toLIP 10. If seizure occurs, turn patient to side and suction secretions as needed 11. Reorient patient post seizure 12. Seizure pads on all 4 side rails 13. Instruct patient/family to notify RN of any seizure activity 14. Instruct patient/family to call for assistance with activity based on assessment 15. Utilize bleeding precautions if thrombolytic given Outcome: Progressing Note: Evaluation of progress towards goal: Neuro assessments are completed per policy. Will continue to monitor the pts LOC, motor function, and sensory function. Will continue to monitor vital signsand lab results. Problem: Activity Intolerance/Impaired Mobility Goal: Mobility/activity is maintained at optimum level for patient Description: Patient's goal is: INTERVENTIONS 1. Assess and monitor patient barriers to mobility and need for assistive/adaptive devices 2. Assess patient's emotional response to limitations 3. Collaborate with interdisciplinary teams and initiate plans and interventions as ordered 4. Encourage independent activity per tolerance 5. Maintain proper body alignment 6. Perform active/passive ROM as tolerated/ordered 7. Coordinate activities to conserve energy 8. Reposition patient 9. Ensure adequate rest/sleep time Outcome: Progressing Note: Evaluation of progress towards goal: Patient's ADL assessed each shift. PT/OT/SP ordered and evaluated as appropriate. Problem: Communication Impairment Goal: Ability to express needs and understand communication Description: INTERVENTIONS 1. Assess patient's communication skills and ability to understand information 2. Provide alternate method of communication if needed i.e. ipad, sign board, pen/paper 3. Collaborate with Speech Therapy to develop effective communication strategies 4. Include patient/patient junior sales representative in decisions related to communication Outcome: Progressing Note: Evaluation of progress towards goal: Patient/family able to express needs and understands communication at this time. Problem: Potential for Aspiration Goal: Patient's risk of aspiration is minimized Description: INTERVENTIONS 1. Assess and monitor vital signs, respiratory status, and labs (WBC) 2. Monitor for signs of aspiration (tachypnea, cough, rales, wheezing, cyanosis, fever) 3. Assess and monitor patient's ability to swallow 4. Place patient up in chair to eat if possible 5. Elevate head of bed 90 degrees to eat if unable to get patient up into chair 6. Supervise patient during oral intake 7. Instruct patient to take small bites 8. Instruct patient to take small single sips when taking liquids 9. Follow patient-specific strategies generated by speech pathologist 10. Complete bedside swallow screen if appropriate and take actions as indicated. 11. Administer prescribed medications and monitor effects Outcome: Progressing Note: Evaluation of progress towards goal: Risk for aspiration assessed continuously for patient. Problem: Anxiety Goal: Anxiety is at manageable level Description: Patient's goal is: INTERVENTIONS 1. Assess and monitor patient's anxiety level 2. Monitor for signs and symptoms of anxiety both physical and emotional (heart palpitations, chestpain, shortness of breath, headaches, nausea, feeling jumpy, restlessness, irritable, apprehensive) 3. Reorient/orient patient to unit/surroundings 4. Explain treatment plan 5. Explain tests/procedures prior to initiation 6. Encourage participation in care 7. Encourage verbalization of concerns/fears 8. Assess coping mechanisms 9. Assist in developing anxiety-reducing skills 10. Administer complimentary therapies 11. Manage patient's environment 12. Limit or eliminate stimulants such as caffeine and nicotine 13. Collaborate with ancillary departments 14. Include patient/patient junior sales representative in decisions related to anxiety Outcome: Progressing Note: Evaluation of progress towards goal: Questions/comments/concerned addressed from patient/family. Anxiety remains at a manageable level. Will continue to monitor. Problem: Inadequate Coping Goal: Demonstrates and verbalizes ability to cope effectively Description: Patient's goal is: INTERVENTIONS 1. Patient is able to verbalize feelings related to emotional state 2. Encourage verbalization of feelings, perceptions, fears, stressors, loss of loved ones 3. Encourage verbalization of problems out of their control 4. Encourage participation in care and self management 5. Inform patient of all treatment/care prior to providing care 6. Collaborate with pastoral/spiritual care, social media marketer, mental health counselor as needed. 7. Instruct patient on diversional activities such as physical activity, distraction, and deep breathing exercises to assist with coping 8. Involve patient's junior sales representative in care Outcome: Progressing Note: Evaluation of progress towards goal: Patient/family demonstrates/verbalizes ability to cope effectively. Will continue to monitor. Problem: Potential for Compromised Skin Integrity Goal: Skin integrity is maintained or improved Description: Patient's goal is: INTERVENTIONS 1. Perform initial skin assessment on admission and as needed 2. Turn patient every 2 hours and PRN 3. Relieve pressure to bony prominences 4. Avoid shearing 5. Keep skin clean and dry 6. Alternate a full bath with partial baths for elderly 7. Apply lotion/moisturizer on skin 8. Monitor patient's hygiene practices 9. Float heels 10. Collaborate with interdisciplinary team and initiate plans and interventions as needed Outcome: Progressing Note: Evaluation of progress towards goal: Patient is turned every 2 hours and as needed. Skin is clean and dry. Will continue to monitor. Goal: Patient's nutritional intake is adequate Description: Patient's goal is: INTERVENTIONS 1. Assess and monitor food intake and supplements, patient food preferences, nausea, vomiting, labs, oral cavity (gums, teeth, tongue, mucosa), proper denture fit, and cultural beliefs 2. Monitor for signs of hypoglycemia and hyperglycemia 3. Collaborate with interdisciplinary team and initiate plan and interventions as ordered 4. Monitor patient's weight 5. Assist patient with meals/food selection 6. Assist patient with eating 7. Allow adequate time for meals 8. Provide pleasant environment during mealtime 9. Increase social contact during mealtimes 10. Plan activities to conserve energy 11. Encourage/perform oral hygiene as appropriate 12. Encourage patient to take dietary supplement as ordered 13. Collaborate with clinical cleaner window 14. Include patient/ patient's junior sales representative in decisions related to nutrition Outcome: Progressing Note: Evaluation of progress towards goal: Pt nutritional needs monitored and addressed as ordered by physician. Dietary recommendations appreciated as ordered. Problem: Potential for Inadequate Tissue Perfusion - Venous Goal: Tissue perfusion is adequate - venous Description: Patient's goal is: INTERVENTIONS 1. Assess and monitor skin color and temperature, skin integrity, pulses, capillary refill, edema, pain in extremities and Homans' sign 2. Monitor for signs and symptoms (dyspnea, tachypnea, and tachycardia) 3. Encourage ambulation/activity per patient's tolerance and physician order 4. Elevate feet when in chair 5. Encourage patient to do ankle pump exercises 6. Apply anti-embolism stockings/devices as ordered Outcome: Progressing Note: Evaluation of progress towards goal: Tissue perfusion remains adequate at this time. Problem: Self Care Deficit Goal: Return ADL status to a safe level of function Description: Patient's goal is: INTERVENTIONS 1. Administer medication as ordered 2. Assess ADL deficits and provide assistive devices as needed 3. Obtain PT/OT consults as needed 4. Assist and instruct patient to increase activity and self care as tolerated Outcome: Progressing Note: Evaluation of progress towards goal: Patient's ADL assessed each shift. PT/OT/SP ordered and evaluated as appropriate. Problem: Moderate - High Risk Fall Score Description: Long Fall Score of =/> 25 or indicated by [facility] Assessment Goal: Patient should be free from fall Description: Interventions: 1. [place] to environment 2. Hourly rounds addressing the 4 P's (Pain, Positioning, Possessions, Potty) 3. Clear area of hazards (spills, clutter, electrical cords, unnecessary equipment) 4. Place equipment (bed & TV controls, call light, phone, urinal) within reach 5. Encourage patient to wear glasses and hearing aides as appropriate 6. Maintain bed in lowest position 7. Lock wheels on bed/wheelchair 8. Provide adequate lighting, including night light 9. Assess need for additional bedding, food/fluids, pain med's prior to sleep/routinely 10. Provide gripper slippers or personal non-skid footwear 11. Teach patient and patient junior sales representative to maintain environment for safety and engage in all aspects of fall prevention program 12. Remind patient to call for help before getting out of bed 13. Initiate bed/chair/exit alarms supportive devices as appropriate, (chair wedge, no-skid floor mat, raised edge mattress, hip protectors) 14. Locate patient bed assignment for optimal visualization 15. Evaluate and identify Safe Patient Handling Equipment needs 16. Provide supervision when out of bed or chair 17. Utilize gait belt as needed to assist with ambulation 18. Place adaptive equipment (cane, walker) within reach 19. Request patient junior sales representative bring adaptive equipment/mobility aids from home or obtain and provide as needed 20. Consult pharmacy regarding effects of med's affecting mobility, cognition, and alternatives 21. Obtain physician order for PT if risk factors associated with mobility are present 22. Obtain physician order for OT as appropriate 23. Utilize diversional activities 24. Educate patient and patient junior sales representative how to maintain a safe environment during visitationtimes (notify nurse prior to leaving bedside) 25. Consider appropriateness of medical or non-medical surgical tech 26. Set up voiding schedule as appropriate (every 2 hours) Outcome: Progressing Note: Evaluation of progress towards goal: Fall risk assessment preformed and safety measures in place. Education given to family/patient. Will continue to monitor. Problem: Safety - Medical Restraint Goal: Remains free of injury from restraints (Restraint for Interference with Radio Script Writer) Description: INTERVENTIONS: 1. Determine that other, less restrictive measures have been tried or would not be effective beforeapplying the restraint 2. Evaluate the patient's condition at the time of restraint application 3. Inform patient/family regarding the reason for restraint 4. Q2H: Monitor safety, Vital signs, psychosocial status, signs of injury, skin integrity, circulation, neurovascular status in affected extremities, respiratory status, comfort, nutrition and hydration, hygiene, ROM, elimination needs 5. Doctor will be notified of restraint 6. RN properly applies restraints per physician order Outcome: Progressing Note: Evaluation of progress towards goal: Patient remains free from injury from restraints at thistime. Goal: Free from restraint(s) (Restraint for Interference with Radio Script Writer) Description: INTERVENTIONS: 1. ONCE/SHIFT or MINIMUM Q12H: Assess and document the continuing need for restraints 2. Order is valid for the duration of the episode of care 3. Discontinue at the earliest possible time once the reason for restraints no longer exists 4. Identify and implement measures to help patient regain control 5. Food, fluids, and toilet offered at a minimum of every 2 hours 6. RN modifies the patient's plan of care by entering a problem statement related to safety; individualizes the safety outcome Outcome: Progressing Note: Evaluation of progress towards goal: Patient remains free from injury from restraints at thistime. Problem: Multi-Drug Resistant Organism / Rule-Out Infection Prevention Goal: Prevent transmission of infection Description: INTERVENTIONS 1. Place patient in private room or in room with patient with same disease 2. Discard single-use items 3. Clean reusable equipment between patients 4. Wear gloves for direct and indirect contact with patient or contaminants 5. Change gloves between tasks and procedures 6. Wash hands before and after caring for each patient 7. Wear appropriate personal protective equipment in relation to the indicated isolation type 8. Place appropriate isolation signage on patient's door 9. Provide patient/ patient junior sales representative with isolation education. Outcome: Progressing Note: Evaluation of progress towards goal: Patient remains free from signs of infection at this time. Will continue to monitor. * PT/OT/BLOCK HACKER - MARYSOL BolandBLOCK HACKER - 06/08/2025 10:29 AM EDT Speech Therapy Dysphagia Treatment Note Assessment: Current Diet Tolerance: NPO Progress: worse - more lethargic today Pt seen to assess readiness for PO as NG fell out again. Pt extremely lethargic and unable to remain alert. Remains disoriented. Not appropriate for PO trials. Continue NPO with alternate means of nutrition and hydration. Pain Assessment Pain Assessment: No/denies pain Recommendations Diet: NPO Discharge: continued ST services Precautions aspiration Plan: Plan of Care: continue with current plan of care Continue with Current Diet: yes Diet: NPO Liquids: No liquids Safety Strategies: n/a Subjective Setting: bedside Arrival Status: lethargic Mental Status: confused/disoriented Therapy Tolerance: poor Change in Medical Status: no Received Recent Medications: no Objective NMES: No 1. Therapy Activity: Oral Motor Range of Motion (1, 2, 3, 4, 5, 6) Number of Trials: 5 Cueing/Assistance Required: maximum Cueing Type: tactile Plan Speech Therapy Care Plan Speech Therapy Care Plan (Active) Template: ST - Dysphagia Problem: Swallowing Dates: Start: 06/06/25 Disciplines: BLOCK HACKER Goal: LTG: Patient will maintain adequate nutrition/ hydration with optimum safety and efficiency of swallowing function of oral intake without overt signs/symptoms of aspiration for the highest appropriate diet level Dates: Start: 06/06/25 Expected End: 07/12/25 Disciplines: BLOCK HACKER Outcomes Date/Time User Outcome 06/08/25 1029 MARYSOL BolandBLOCK HACKER Not Progressing Goal: STG: Pt will tolerate ice chip/therapeutic water trials without overt s/s of aspiration with 90% accuracy with min cues and use of compensatory strategies Dates: Start: 06/06/25 Expected End: 07/12/25 Disciplines: BLOCK HACKER Template: ST - Rehab Speech Problem: Auditory Comprehension Dates: Start: 06/06/25 Disciplines: BLOCK HACKER Goal: LTG: Patient will comprehend communication related to basic medical and social needs and utilize compensatory strategies to maintain safety in a functional living environment Dates: Start: 06/06/25 Expected End: 07/12/25 Disciplines: BLOCK HACKER Goal: STG: Patient will complete complex, paragraph level auditory comprehension tasks with 90% accuracy with minimal cueing Dates: Start: 06/06/25 Expected End: 07/12/25 Disciplines: BLOCK HACKER Problem: Cognitive Linguistic Dates: Start: 06/06/25 Disciplines: BLOCK HACKER Goal: LTG: Patient will display functional cognitive-linguistic skills to demonstrate appropriate communication and safety within daily activities in a functional living environment Dates: Start: 06/06/25 Expected End: 07/12/25 Disciplines: BLOCK HACKER Goal: STG: Patient will recall information discussed during therapy session via retelling/answeringquestions with 90% accuracy with minimal cueing Dates: Start: 06/06/25 Expected End: 07/12/25 Disciplines: BLOCK HACKER Problem: High Level Language Dates: Start: 06/06/25 Disciplines: BLOCK HACKER Goal: LTG: Patient will demonstrate use of self-awareness, goal setting, planning, initiation, self-monitoring and problem solving during daily activities to improve safety and awareness in a functional living environment Dates: Start: 06/06/25 Expected End: 07/12/25 Disciplines: BLOCK HACKER Goal: STG: Patient will demonstrate functional problem solving and safety awareness with 90% accuracy in daily living tasks in order to increase safe interactions with environment and decrease assistance from caregivers Dates: Start: 06/06/25 Expected End: 07/12/25 Disciplines: BLOCK HACKER Goal: STG: Patient will complete simple to complex organization, scheduling, planning and reasoningtasks to improve problem solving and safety awareness with 90% accuracy with minimal cueing Dates: Start: 06/06/25 Expected End: 07/12/25 Disciplines: BLOCK HACKER Problem: Verbal Expression Dates: Start: 06/06/25 Disciplines: BLOCK HACKER Goal: LTG: Patient will utilize compensatory strategies to communicate wants and needs effectively to different conversational partners, maintain safety and participate socially in a functional living environment Dates: Start: 06/06/25 Expected End: 07/12/25 Disciplines: BLOCK HACKER Goal: STG: Patient will complete simple to complex divergent and convergent naming tasks with 90% accuracy with minimal cueing to improve thought organization Dates: Start: 06/06/25 Expected End: 07/12/25 Disciplines: BLOCK HACKER Goal: STG: Patient will complete abstract naming tasks with 90% accuracy with minimum cueing to improve narrative expansion and discourse during activities of daily living Dates: Start: 06/06/25 Expected End: 07/12/25 Disciplines: BLOCK HACKER Speech Therapy Care Plan (Resolved) There are no resolved problems. Principal Problem: ICH (intracerebral hemorrhage) ([facility]) * Plan of Care - Lydia Romero - 06/07/2025 11:53 PM EDT Problem: Discharge Planning Goal: Discharge to post-acute care, other facility, or home with appropriate resources Description: Patient's goal is: INTERVENTIONS 1. Conduct assessment to determine patient/family and health care team treatment goals, and need for post-acute services based on payer coverage, community resources, and patient preferences, and barriers to discharge 2. Coordinate with Social work, Care Navigation, and Utilization Review to arrange appropriate level of services according to patient's needs based on patient preference and payer coverage in collaboration with the physician and health care team 3. Address psychosocial, clinical, and financial barriers to discharge as identified in assessment in conjunction with the patient/family and health care team 4. Consult appropriate ancillary services (i.e.. PT/OT/ST, etc) as needed 5. Communicate with and update the patient/family, physician, and health care team regarding progress on the discharge plan 6. Identify discharge learning needs (meds, wound care, etc). 7. Arrange for needed discharge transportation as appropriate Outcome: Progressing Note: Evaluation of progress towards goal: Discharge planning in progress with appropriate multidisciplinary teams. * PT/OT/BLOCK HACKER - XANDER Boland - 06/07/2025 2:41 PM EDT Speech Therapy BLOCK HACKER Type of Visit: Medical deferral Remains inappropriate for PO. * PT/OT/BLOCK HACKER - STEPH Coulter/Brendon - 06/07/2025 12:40 PM EDT Occupational Therapy Evaluation Discharge Recommendations for Safe Patient Transition OT Discharge Disposition Recommendation: Post acute - moderate OT Post Acute Moderate Rehab Needs: Recommend moderate intensity rehab, Tolerate 1-2 hrs of therapy3-5 days/wk, Subacute or chronic functional impairment Current Impairments Informing Therapy Recommendation: Ambulation status/safety, Cognition, ADL status, Communication needs, Endurance level, Swallowing Modified Nga Level of Disability: Moderately severe disability 0= No symptom at all 1= No significant disability despite symptoms: able to carry out all usual duties and activities 2= Slight disability: unable to carry out all previous activities, but able to look after own affairs without assistance 3= Moderate disability: requiring some help, but able to walk without assistance 4= Moderately severe disability: unable to walk without assistance and unable to attend to own bodily needs without assistance 5- Severe disability: bedridden, incontinent and requiring constant nursing care and attention. 6= 6 Clicks: Daily Activity Putting on and taking off regular lower body clothing?: A lot Bathing (including washing, rinsing, drying)?: A lot Toileting, which includes using toilet, bedpan or urinal?: A lot Putting on and taking off regular upper body clothing?: A lot Taking care of personal grooming such as brushing teeth?: A lot Eating meals?: A lot Scoring Daily Activity Raw Score: 12 CMS G Code Modifier: CL Occupational Profile Patient is a 70 year old male admitted 06/04 with confusion. Pt up in AM, able to make coffee and then went to bathroom. Son found him 4 hrs later. Imaging - thalamic bleed. Transfer to [facility]. Possiblefall per family previous week. Hx DVT L LE - on Eliquis. 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 Keep SBP 130-150 NIHSS = 9 (LOC, drift B LE, ataxia, aphasia) EEG - no epileptiform discharges ST - mod/severe rec/expressive Resp path panel pending - resp isolation MRI brain - stable R thalamic hematoma with I'VE; Echo pending CXR - mild vascular congestion with B LL atelectasis. Unable to obtain prior to admission information due to aphasia. Family not in room at time of evaluation. See below for past medical and past surgical history. Past Medical History: Diagnosis Date Diabetes mellitus type 2, controlled ([facility]) DVT (deep venous thrombosis) ([facility]) GERD (gastroesophageal reflux disease) Hyperlipidemia Hypertension ICH (intracerebral hemorrhage) ([facility]) 06/04/2025 Osteoarthritis Past Surgical History: Procedure Laterality Date TONSILLECTOMY TOTAL HIP ARTHROPLASTY 06/2010 Therapy Plan Need for skilled Occupational Therapy to address deficits in ADL independence and functional mobility due to a status decline resulting from confusion and rule out stroke. OT Treatment/Interventions: ADL retraining, UE strengthening/ROM, Cognitive reorientation, Balance,Bed mobility, Functional transfer training, Patient/family training, Home management, Gait training, Functional activities OT Frequency: 4-5days/week OT Duration: 07-08-2025 Assessment Patient Assessment Therapy Problem List: Decreased ADL status, Decreased balance, Decreased cognition, Decreased endurance, Decreased high-level ADLs, Decreased mobility, Decreased safe judgement during ADL, Decreased self-care trans, Decreased UE ROM, Decreased UE strength, Decreased LE ROM, Decreased LE strength Patient Response to Treatment: Slow progress, decreased activity tolerance, Slow progress, cognitive deficits Mood/Affect: Appropriate for circumstances Rehab Prognosis: Good, With continued OT status post acute discharge, Patient remains in ICU/critical care Visit RN Communication: Yes Medical Record Reviewed: Yes OT Type of Visit: Evaluation Precautions Activity: advance activity as tolerated per early mobility guidelines Equipment: NG tube, gait belt, walker, telemetry, external cath, IV, bilateral hand mitts. Telemetry/Refractory Specialist: Yes Oxygen Used: room air Other: respiratory rule out: panel pending Pain Assessment Pain Assessment: (unable to test due to cognition.) Home Living Other : patient was not able to provide home information due to aphasia. Patient lives with his sonper EMR. Patient works. Prior Function Lives With: Son (SonRaghavendra) Vocational: (patient works) Other: patient is not able to provide prior function due to aphasia. 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 ADL / IADL Where Assessed: Chair (patient was up in chair upon writers arrival. Returned to chair at end of session.) Equipment Utilized: (Had NG tube in at start of session. Patient sneezed and NG tube came out. RN, Silverio leon.) Grooming Assistance: Max assist Bathing/Showering Assistance: Max assist Toilet/Commode Assistance: Max assist UE Dressing Assistance: Max assist LE Dressing Assistance: Max assist Footwear Assistance: Max assist Other: ADL levels based on cognition and balance as well as clinical judgement. Home Management - IADL Other: ADL levels based on cognition and balance as well as clinical judgement. Hearing / Speech / Vision Hearing: Other (Comment) (appears to be able to hear.) Speech: Garbled, Global aphasia Cognition Overall Cognitive Status: Exceptions to Within Functional Limits Arousal/Alertness: Delayed responses to stimuli Orientation Level: Oriented to person, Other (Comment) (unable to recall age. [facility]ble to [facility] but not [facility].) Following Commands: (follows some one step commands with increased time and repetition.) Safety Judgment: Decreased awareness of need for assistance, Decreased awareness of need for safety Awareness of Errors: Assistance required to correct errors made, Decreased awareness of errors, Assistance required to identify errors made Insight of Deficits: Decreased awareness of deficits Problem Solving: Nonfunctional Interfering Components: Processing speed, Working memory, Attention - sustained, Attention - divided, Attention to detail, Motor planning, Attention - selective Sensation Overall Sensation Status: Unable to Assess Bed Mobility Other: RN used maxi hernan from bed to chair. Patient was up in chair upon writers arrival Transfers Sit to Stand: Max assist, Verbal cues (max assist of two.) Stand to Sit: Max assist, Verbal cues (max assist of two.) Gait Gait Distance: sit to stand from chair with max assist of two. Patient was able to static stand at edge of chair with min assist of two. Unable to take steps. Limiting Factors to Gait: Cognition/difficulty following directions, Weakness, Decreased safety Balance Sitting Balance: Static: Fair Sitting Balance: Dynamic: Poor Standing Balance: Static: Fair (fair-) Standing Balance: Dynamic: Poor Other: with walker RUE Assessment: (generalized weakness.) LUE Assessment: (generalized weakness) Activity Tolerance Endurance: Tolerates <30 minutes activity WITHOUT vital sign changes Other: room air Plan Occupational Therapy Care Plan Occupational Therapy Care Plan (Active) Template: OT - Occupational Therapy Problem: Activity Tolerance Dates: Start: 06/07/25 Disciplines: OT Goal: Tolerate 30 minutes of activity WITH rest breaks Dates: Start: 06/07/25 Expected End: 07/08/25 Description: Goal Description: Disciplines: OT Problem: Bathing LB Dates: Start: 06/07/25 Disciplines: OT Goal: Patient will perform bathing LB with Minimum Assist Dates: Start: 06/07/25 Expected End: 07/08/25 Description: Goal Description: Disciplines: OT Problem: Bathing UB Dates: Start: 06/07/25 Disciplines: OT Goal: Patient will perform bathing UB with Set-Up Dates: Start: 06/07/25 Expected End: 07/08/25 Description: Goal Description: Disciplines: OT Problem: Bed Mobility Dates: Start: 06/07/25 Disciplines: OT Goal: Patient will perform bed mobility with Contact Guard Dates: Start: 06/07/25 Expected End: 07/08/25 Description: Goal Description: Disciplines: OT Problem: Cognition Dates: Start: 06/07/25 Disciplines: OT Goal: Improve cognition Dates: Start: 06/07/25 Expected End: 07/08/25 Description: Follow one step commands 100% of the time Disciplines: OT Problem: Dressing LB Dates: Start: 06/07/25 Disciplines: OT Goal: Patient will perform dressing LB with Minimum Assist Dates: Start: 06/07/25 Expected End: 07/08/25 Description: Goal Description: Disciplines: OT Problem: Dressing UB Dates: Start: 06/07/25 Disciplines: OT Goal: Patient will perform dressing UB with Set-Up Dates: Start: 06/07/25 Expected End: 07/08/25 Description: Goal Description: Disciplines: OT Problem: Functional Mobility Dates: Start: 06/07/25 Disciplines: OT Goal: Patient will perform functional mobility with Minimum Assist Dates: Start: 06/07/25 Expected End: 07/08/25 Description: Goal Description: Disciplines: OT Problem: Grooming Dates: Start: 06/07/25 Disciplines: OT Goal: Patient will perform grooming with Minimum Assist Dates: Start: 06/07/25 Expected End: 07/08/25 Description: Goal Description: Disciplines: OT Problem: Home Management Dates: Start: 06/07/25 Disciplines: OT Goal: Patient will perform home management with Minimum Assist Dates: Start: 06/07/25 Expected End: 07/08/25 Description: Goal Description: Disciplines: OT Problem: Sitting Balance Dates: Start: 06/07/25 Disciplines: OT Goal: Improve balance to good Dates: Start: 06/07/25 Expected End: 07/08/25 Description: Good dynamic balance, Disciplines: OT Problem: Standing Balance Dates: Start: 06/07/25 Disciplines: OT Goal: Improve balance to good Dates: Start: 06/07/25 Expected End: 07/08/25 Description: Good dynamic balance. Disciplines: OT Problem: Strength Dates: Start: 06/07/25 Disciplines: OT Goal: Improve strength Dates: Start: 06/07/25 Expected End: 07/08/25 Description: Improve bilateral upper extremity strength to be able to complete full ADL tasks without rest breaks. Disciplines: OT Problem: Toilet Transfers Dates: Start: 06/07/25 Disciplines: OT Goal: Patient will perform toilet transfers with Minimum Assist Dates: Start: 06/07/25 Expected End: 07/08/25 Description: Goal Description: Disciplines: OT Problem: Toileting Dates: Start: 06/07/25 Disciplines: OT Goal: Patient will perform toileting with Minimum Assist Dates: Start: 06/07/25 Expected End: 07/08/25 Description: Goal Description: Disciplines: OT Problem: Transfers Dates: Start: 06/07/25 Disciplines: OT Goal: Patient will perform transfers with Contact Guard Dates: Start: 06/07/25 Expected End: 07/08/25 Description: Goal Description: Disciplines: OT Occupational Therapy Care Plan (Resolved) There are no resolved problems. Principal Problem: ICH (intracerebral hemorrhage) ([facility]) * PT/OT/BLOCK HACKER - Yelitza Jauregui, PT - 06/07/2025 11:53 AM EDT Physical Therapy Evaluation Discharge Recommendations for Safe Patient Transition PT Discharge Disposition Recommendation: Post acute - moderate PT Post Acute Moderate Rehab Needs: Recommend moderate intensity rehab, Tolerate 1-2 hrs of therapy3-5 days/wk, Subacute or chronic functional impairment Current Impairments Informing Therapy Recommendation: Ambulation status/safety, Cognition, Fall risk 6 Clicks: Basic Mobility Turning from your back to your side while in a flat bed without using bed rails?: A lot Moving from lying on your back to sitting on side of flat bed without using bed rails?: A lot Moving to and from bed to a chair (including w/c)?: Total Standing up from a chair using your arms (e.g. w/c or bedside chair)?: A lot To walk in hospital room?: Total Climbing 3-5 steps with a railing?: Total Scoring 6 Clicks: Basic Mobility Raw Score: 9 [facility] G Code Modifier: CL SwePASS score = Pt is a 70 yo male to ED 06/04 by family with confusion. Pt up in AM, able to make coffee and then went to bathroom. Son found him 4 hrs later. Imaging - thalamic bleed. Transfer to [facility]. Possible fall per family previous week. Hx DVT L LE - on Eliquis. 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 Keep SBP 130-150 NIHSS = 9 (LOC, drift B LE, ataxia, aphasia) EEG - no epileptiform discharges ST - mod/severe rec/expressive Resp path panel pending - resp isolation MRI brain - stable R thalamic hematoma with NIGHAT; Echo pending CXR - mild vascular congestion with B LL atelectasis Past Medical History: Diagnosis Date Diabetes mellitus type 2, controlled ([facility]) DVT (deep venous thrombosis) ([facility]) GERD (gastroesophageal reflux disease) Hyperlipidemia Hypertension ICH (intracerebral hemorrhage) ([facility]) 06/04/2025 Osteoarthritis Past Surgical History: Procedure Laterality Date TONSILLECTOMY TOTAL HIP ARTHROPLASTY 06/[address] [facility] Level of Disability: Moderately severe disability 0= No symptom at all 1= No significant disability despite symptoms: able to carry out all usual duties and activities 2= Slight disability: unable to carry out all previous activities, but able to look after own affairs without assistance 3= Moderate disability: requiring some help, but able to walk without assistance 4= Moderately severe disability: unable to walk without assistance and unable to attend to own bodily needs without assistance 5- Severe disability: bedridden, incontinent and requiring constant nursing care and attention. 6= Therapy Plan Need for skilled Physical Therapy to address deficits in functional mobility due to a status decline resulting from admit for R thalamic hemorrhage with intraventricular extension. PT Treatment/Interventions: Functional transfer training, LE strengthening/ROM, Patient/family training, Equipment eval/education, Balance, Bed mobility, Gait training, Neuromuscular reeducation PT Frequency: 4-5days/week PT Duration: 06/30/25 Assessment Patient Assessment Therapy Problem List: Decreased balance, Decreased mobility, Decreased cognition, Decreased safe judgement during ADL, Decreased UE strength, Decreased LE strength Patient Response to Treatment: Tolerated evaluation without adverse reaction, Slow progress, decreased activity tolerance, Slow progress, cognitive deficits Mood/Affect: Appropriate for circumstances Rehab Prognosis: Good, With continued PT status post acute discharge Visit RN Communication: Yes Medical Record Reviewed: Yes PT Type of Visit: Evaluation Precautions Activity: act as tolerated, NPO - NG tube feed Equipment: gait belt, NG tube, B wrist restraints, B mitts, chair alarm, walker, IV Telemetry/Refractory Specialist: Yes Oxygen Used: room air Other: Resp rule-out - panel pending; seizure precautions. High fall risk, confusion Pain Assessment Pain Assessment: No/denies pain Home Living Other : Home info not available due to pt confusion and no family present. 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 Hearing / Speech / Vision Hearing: (appears intact) Speech: Garbled, Global aphasia Current Vision: (Difficult to fully assess - eyes open, pt tracking appropriately) Cognition Overall Cognitive Status: Exceptions to Within Functional Limits Arousal/Alertness: Delayed responses to stimuli Attention Span: Difficulty attending to directions Memory: Unable to assess (due to aphasia, confusion) Orientation Level: Oriented to person, Disoriented to place, Disoriented to time, Disoriented to situation, Disoriented to age (able to state he is in hospital but not which one.) Following Commands: (follows some commands but not consistent - needs repetition) Safety Judgment: Decreased awareness of need for assistance, Decreased awareness of need for safety Awareness of Errors: Assistance required to correct errors made, Decreased awareness of errors, Assistance required to identify errors made Insight of Deficits: Decreased awareness of deficits Problem Solving: Nonfunctional Interfering Components: Processing speed, Working memory, Attention - sustained, Attention - divided, Attention to detail, Motor planning, Attention - selective Sensation Overall Sensation Status: Unable to Assess (due to aphasia, confusion) Bed Mobility Other: not tested as pt up in chair via maxi hernan lift and remained up in chair Transfers Sit to Stand: Max assist, Verbal cues, Tactile cues (2 assist) Stand to Sit: Max assist (2 assist) Bed to Chair: Total assist Other: sit to stand from recliner chair after placement of B hands on walker and blocking B feet. Recommend use of maxi hernan lift for safe transfers Gait Other: pt stood at walker with min A x 2 support, cues for upright posture for 1 minute. Limited byfatigue, confusion and generalized weakness. Unable to take steps this date. Upon sitting down, pt sneezed and dislodged NG tube - RN Silverio aware Balance Sitting Balance: Static: Fair Sitting Balance: Dynamic: Poor Standing Balance: Static: (Fair-) Standing Balance: Dynamic: Poor RLE Assessment: (grossly 3+/5 - limited following of commands for MMT) LLE Assessment: (Grossly 3/5 - limited following of commands for MMT. LE edema with recent DVT) Activity Tolerance Endurance: Tolerates <30 minutes activity WITHOUT vital sign changes Other: limited by confusion, generalized weakness and decreased balance Plan Physical Therapy Care Plan Physical Therapy Care Plan (Active) Template: PT - Physical Therapy Problem: Activity Tolerance Dates: Start: 06/07/25 Disciplines: PT Goal: Tolerate 30 minutes of activity WITH rest breaks Dates: Start: 06/07/25 Expected End: 06/30/25 Description: Goal Description: For seated and standing activities for improved mobility Disciplines: PT Problem: Bed Mobility Dates: Start: 06/07/25 Disciplines: PT Goal: Patient will perform bed mobility with Minimum Assist Dates: Start: 06/07/25 Expected End: 06/30/25 Description: Goal Description: Disciplines: PT Problem: Gait Dates: Start: 06/07/25 Disciplines: PT Goal: Patient will perform gait with Minimum Assist Dates: Start: 06/07/25 Expected End: 06/30/25 Description: 100 feet with RW support for safe mobility Goal Description: Disciplines: PT Problem: Sitting Balance Dates: Start: 06/07/25 Disciplines: PT Goal: Improve balance to good Dates: Start: 06/07/25 Expected End: 06/30/25 Description: Static Dynamic for safe ADLs and transfers Disciplines: PT Problem: Standing Balance Dates: Start: 06/07/25 Disciplines: PT Goal: Improve balance to fair Dates: Start: 06/07/25 Expected End: 06/30/25 Description: Static Dynamic with walker support for safe mobility, decreased fall risk Disciplines: PT Problem: Transfers Dates: Start: 06/07/25 Disciplines: PT Goal: Patient will perform transfers with Minimum Assist Dates: Start: 06/07/25 Expected End: 06/30/25 Description: Goal Description: with RW support Disciplines: PT Physical Therapy Care Plan (Resolved) There are no resolved problems. Principal Problem: ICH (intracerebral hemorrhage) ([facility]) * Plan of Care - Jenniffer Mix RN - 06/06/2025 7:50 PM EDT Problem: Pain Goal: Patient goal is pain score less than 4, able to rest, and participant in treatment plan as appropriate Description: INTERVENTIONS: 1. Encourage patient or legal junior sales representative to report early pain and ask for pain medicine when needed 2. Assess pain using appropriate pain scale and include the scale used when documenting 3. Administer analgesics based on type and severity of pain and evaluate response within appropriate time frame 4. Implement non-pharmacological measures as appropriate and evaluate response 5. Consider cultural and social influences on pain and pain management 6. Notify LIP if interventions ineffective or patient reports new pain 7. Monitor vital signs including pulse ox, end-tidal CO2 based on pain intervention 8. Reassess pain per policy 9. Teach patient or legal junior sales representative interventions for comforting Outcome: Progressing Note: Evaluation of progress towards goal: Patient has PRN pain medication. Checking with every assessment. Monitoring vitals. Problem: Safety Goal: Patient will be injury free during hospitalization Description: INTERVENTIONS: 1. Assess patient's risk for falls and implement fall prevention plan of care per policy 2. Provide and maintain a safe environment 3. Proper use of double Identifiers 4. Medication administration using the 5 rights 5. Hand hygiene 6. Specimens are labeled at the bedside 7. Instruct patient/ patient junior sales representative about use of safety devices 8. Include patient/ patient junior sales representative in decisions related to safety Outcome: Progressing Note: Evaluation of progress towards goal: Patient remains injury free through hospital stay at this time. Fall risk precautions in place as appropriate for patient. Will continue to monitor. Problem: Infection Goal: Absence of infection during hospitalization Description: INTERVENTIONS 1. Assess and monitor for signs and symptoms of infection. 2. Monitor lab/diagnostic results. 3. Monitor all insertion sites i.e., indwelling lines, tubes and drains. 4. Monitor endotracheal (as able) and nasal secretions for changes in amount and color. 5. Administer medications as ordered. 6. Instruct and encourage patient and family to use good hand hygiene technique. 7. Identify and instruct patient/patient junior sales representative in use of appropriate isolation precautionsfor identified infection/symptoms. 8. Provide and discuss with patient/patient junior sales representative on educational MDRO sheet. 9. Encourage and monitor nutritional status daily and consult cleaner window if indicated. 10. Implement neutropenic guidelines as needed. Outcome: Progressing Note: Evaluation of progress towards goal: Labs and vitals monitored as ordered. Medications administered as ordered. Patient remains free from infection at this time. Problem: Knowledge Deficit Goal: Patient/patient junior sales representative demonstrates understanding of disease process, treatment plan,medications, and discharge instructions Description: INTERVENTIONS 1. Complete learning assessment and assess knowledge base 2. Provide teaching at level of understanding 3. Provide teaching via preferred learning method(s) Outcome: Progressing Note: Evaluation of progress towards goal: Care plan discussed & goals for shift set with patient input appreciated. All questions answered. Problem: Discharge Planning Goal: Discharge to post-acute care, other facility, or home with appropriate resources Description: Patient's goal is: INTERVENTIONS 1. Conduct assessment to determine patient/family and health care team treatment goals, and need for post-acute services based on payer coverage, community resources, and patient preferences, and barriers to discharge 2. Coordinate with Social work, Care Navigation, and Utilization Review to arrange appropriate level of services according to patient's needs based on patient preference and payer coverage in collaboration with the physician and health care team 3. Address psychosocial, clinical, and financial barriers to discharge as identified in assessment in conjunction with the patient/family and health care team 4. Consult appropriate ancillary services (i.e.. PT/OT/ST, etc) as needed 5. Communicate with and update the patient/family, physician, and health care team regarding progress on the discharge plan 6. Identify discharge learning needs (meds, wound care, etc). 7. Arrange for needed discharge transportation as appropriate Outcome: Progressing Note: Evaluation of progress towards goal: Discharge orders not yet completed. Problem: Neurological Deficit Goal: Neurological status is stable or improving Description: Patient's goal is: INTERVENTIONS 1. Complete Neurological assessment as indicated/ordered 2. Initiate measures to prevent increased intracranial pressure 3. Monitor and assess patient's level of consciousness, motor function, sensory function, and levelof assistance needed for ADLs 4. Monitor and report changes from baseline 5. Maintain blood pressure and fluid volume within ordered parameters to optimize cerebral perfusion and minimize risk of hemorrhage 6. Monitor labs and diagnostic tests 7. Administer anti-seizure medications as ordered 8. Maintain airway, patient safety and administer oxygen as ordered 9. Monitor patient for seizure activity, document and report duration and description of seizure toLIP 10. If seizure occurs, turn patient to side and suction secretions as needed 11. Reorient patient post seizure 12. Seizure pads on all 4 side rails 13. Instruct patient/family to notify RN of any seizure activity 14. Instruct patient/family to call for assistance with activity based on assessment 15. Utilize bleeding precautions if thrombolytic given Outcome: Progressing Note: Evaluation of progress towards goal: Patient's level of consciousness, motor function, sensory function, and level of assistance needed for ADLs all monitored and assessed at this time. Changesfrom baseline reported to necessary personal when needed. Patients care is optimized for cerebral perfusion accordingly to patients orders. Problem: Activity Intolerance/Impaired Mobility Goal: Mobility/activity is maintained at optimum level for patient Description: Patient's goal is: INTERVENTIONS 1. Assess and monitor patient barriers to mobility and need for assistive/adaptive devices 2. Assess patient's emotional response to limitations 3. Collaborate with interdisciplinary teams and initiate plans and interventions as ordered 4. Encourage independent activity per tolerance 5. Maintain proper body alignment 6. Perform active/passive ROM as tolerated/ordered 7. Coordinate activities to conserve energy 8. Reposition patient 9. Ensure adequate rest/sleep time Outcome: Progressing Note: Evaluation of progress towards goal: Patient's ADL assessed each shift. PT/OT/SP ordered and evaluated as appropriate. Problem: Communication Impairment Goal: Ability to express needs and understand communication Description: INTERVENTIONS 1. Assess patient's communication skills and ability to understand information 2. Provide alternate method of communication if needed i.e. ipad, sign board, pen/paper 3. Collaborate with Speech Therapy to develop effective communication strategies 4. Include patient/patient junior sales representative in decisions related to communication Outcome: Progressing Note: Evaluation of progress towards goal: Patient/family able to express needs and understands communication at this time. Problem: Potential for Aspiration Goal: Patient's risk of aspiration is minimized Description: INTERVENTIONS 1. Assess and monitor vital signs, respiratory status, and labs (WBC) 2. Monitor for signs of aspiration (tachypnea, cough, rales, wheezing, cyanosis, fever) 3. Assess and monitor patient's ability to swallow 4. Place patient up in chair to eat if possible 5. Elevate head of bed 90 degrees to eat if unable to get patient up into chair 6. Supervise patient during oral intake 7. Instruct patient to take small bites 8. Instruct patient to take small single sips when taking liquids 9. Follow patient-specific strategies generated by speech pathologist 10. Complete bedside swallow screen if appropriate and take actions as indicated. 11. Administer prescribed medications and monitor effects Outcome: Progressing Note: Evaluation of progress towards goal: Risk for aspiration assessed continuously for patient. Problem: Anxiety Goal: Anxiety is at manageable level Description: Patient's goal is: INTERVENTIONS 1. Assess and monitor patient's anxiety level 2. Monitor for signs and symptoms of anxiety both physical and emotional (heart palpitations, chestpain, shortness of breath, headaches, nausea, feeling jumpy, restlessness, irritable, apprehensive) 3. Reorient/orient patient to unit/surroundings 4. Explain treatment plan 5. Explain tests/procedures prior to initiation 6. Encourage participation in care 7. Encourage verbalization of concerns/fears 8. Assess coping mechanisms 9. Assist in developing anxiety-reducing skills 10. Administer complimentary therapies 11. Manage patient's environment 12. Limit or eliminate stimulants such as caffeine and nicotine 13. Collaborate with ancillary departments 14. Include patient/patient junior sales representative in decisions related to anxiety Outcome: Progressing Note: Evaluation of progress towards goal: Questions/comments/concerned addressed from patient/family. Anxiety remains at a manageable level. Will continue to monitor. Problem: Inadequate Coping Goal: Demonstrates and verbalizes ability to cope effectively Description: Patient's goal is: INTERVENTIONS 1. Patient is able to verbalize feelings related to emotional state 2. Encourage verbalization of feelings, perceptions, fears, stressors, loss of loved ones 3. Encourage verbalization of problems out of their control 4. Encourage participation in care and self management 5. Inform patient of all treatment/care prior to providing care 6. Collaborate with pastoral/spiritual care, social media marketer, mental health counselor as needed. 7. Instruct patient on diversional activities such as physical activity, distraction, and deep breathing exercises to assist with coping 8. Involve patient's junior sales representative in care Outcome: Progressing Note: Evaluation of progress towards goal: Patient/family demonstrates/verbalizes ability to cope effectively. Will continue to monitor. Problem: Potential for Compromised Skin Integrity Goal: Skin integrity is maintained or improved Description: Patient's goal is: INTERVENTIONS 1. Perform initial skin assessment on admission and as needed 2. Turn patient every 2 hours and PRN 3. Relieve pressure to bony prominences 4. Avoid shearing 5. Keep skin clean and dry 6. Alternate a full bath with partial baths for elderly 7. Apply lotion/moisturizer on skin 8. Monitor patient's hygiene practices 9. Float heels 10. Collaborate with interdisciplinary team and initiate plans and interventions as needed Outcome: Progressing Note: Evaluation of progress towards goal: Patient repositioned Q2 hrs. Monitor for s/s of skin breakdown and treat/communicate with treatment team as needed. Goal: Patient's nutritional intake is adequate Description: Patient's goal is: INTERVENTIONS 1. Assess and monitor food intake and supplements, patient food preferences, nausea, vomiting, labs, oral cavity (gums, teeth, tongue, mucosa), proper denture fit, and cultural beliefs 2. Monitor for signs of hypoglycemia and hyperglycemia 3. Collaborate with interdisciplinary team and initiate plan and interventions as ordered 4. Monitor patient's weight 5. Assist patient with meals/food selection 6. Assist patient with eating 7. Allow adequate time for meals 8. Provide pleasant environment during mealtime 9. Increase social contact during mealtimes 10. Plan activities to conserve energy 11. Encourage/perform oral hygiene as appropriate 12. Encourage patient to take dietary supplement as ordered 13. Collaborate with clinical cleaner window 14. Include patient/ patient's junior sales representative in decisions related to nutrition Outcome: Progressing Note: Evaluation of progress towards goal: Intake documented, weight documented every day. Monitoring for any nausea, vomiting and diarrhea. Patients nutritional intake is adequate at this time. Willcontinue to monitor Problem: Potential for Inadequate Tissue Perfusion - Venous Goal: Tissue perfusion is adequate - venous Description: Patient's goal is: INTERVENTIONS 1. Assess and monitor skin color and temperature, skin integrity, pulses, capillary refill, edema, pain in extremities and Homans' sign 2. Monitor for signs and symptoms (dyspnea, tachypnea, and tachycardia) 3. Encourage ambulation/activity per patient's tolerance and physician order 4. Elevate feet when in chair 5. Encourage patient to do ankle pump exercises 6. Apply anti-embolism stockings/devices as ordered Outcome: Progressing Note: Evaluation of progress towards goal: Tissue perfusion remains adequate at this time. Problem: Self Care Deficit Goal: Return ADL status to a safe level of function Description: Patient's goal is: INTERVENTIONS 1. Administer medication as ordered 2. Assess ADL deficits and provide assistive devices as needed 3. Obtain PT/OT consults as needed 4. Assist and instruct patient to increase activity and self care as tolerated Outcome: Progressing Note: Evaluation of progress towards goal: Patients level of function will be assessed throughout shift. Problem: Moderate - High Risk Fall Score Description: Triangle Fall Score of =/> 25 or indicated by [facility] Assessment Goal: Patient should be free from fall Description: Interventions: 1. [place] to environment 2. Hourly rounds addressing the 4 P's (Pain, Positioning, Possessions, Potty) 3. Clear area of hazards (spills, clutter, electrical cords, unnecessary equipment) 4. Place equipment (bed & TV controls, call light, phone, urinal) within reach 5. Encourage patient to wear glasses and hearing aides as appropriate 6. Maintain bed in lowest position 7. Lock wheels on bed/wheelchair 8. Provide adequate lighting, including night light 9. Assess need for additional bedding, food/fluids, pain med's prior to sleep/routinely 10. Provide gripper slippers or personal non-skid footwear 11. Teach patient and patient junior sales representative to maintain environment for safety and engage in all aspects of fall prevention program 12. Remind patient to call for help before getting out of bed 13. Initiate bed/chair/exit alarms supportive devices as appropriate, (chair wedge, no-skid floor mat, raised edge mattress, hip protectors) 14. Locate patient bed assignment for optimal visualization 15. Evaluate and identify Safe Patient Handling Equipment needs 16. Provide supervision when out of bed or chair 17. Utilize gait belt as needed to assist with ambulation 18. Place adaptive equipment (cane, walker) within reach 19. Request patient junior sales representative bring adaptive equipment/mobility aids from home or obtain and provide as needed 20. Consult pharmacy regarding effects of med's affecting mobility, cognition, and alternatives 21. Obtain physician order for PT if risk factors associated with mobility are present 22. Obtain physician order for OT as appropriate 23. Utilize diversional activities 24. Educate patient and patient junior sales representative how to maintain a safe environment during visitationtimes (notify nurse prior to leaving bedside) 25. Consider appropriateness of medical or non-medical surgical tech 26. Set up voiding schedule as appropriate (every 2 hours) Outcome: Progressing Note: Evaluation of progress towards goal: Fall risk assessment preformed and safety measures in place. Education given to family/patient. Will continue to monitor. Problem: Safety - Medical Restraint Goal: Remains free of injury from restraints (Restraint for Interference with Radio Script Writer) Description: INTERVENTIONS: 1. Determine that other, less restrictive measures have been tried or would not be effective beforeapplying the restraint 2. Evaluate the patient's condition at the time of restraint application 3. Inform patient/family regarding the reason for restraint 4. Q2H: Monitor safety, Vital signs, psychosocial status, signs of injury, skin integrity, circulation, neurovascular status in affected extremities, respiratory status, comfort, nutrition and hydration, hygiene, ROM, elimination needs 5. Doctor will be notified of restraint 6. RN properly applies restraints per physician order Outcome: Progressing Note: Evaluation of progress towards goal: Patient remains free from injury from restraints at thistime. Goal: Free from restraint(s) (Restraint for Interference with Radio Script Writer) Description: INTERVENTIONS: 1. ONCE/SHIFT or MINIMUM Q12H: Assess and document the continuing need for restraints 2. Order is valid for the duration of the episode of care 3. Discontinue at the earliest possible time once the reason for restraints no longer exists 4. Identify and implement measures to help patient regain control 5. Food, fluids, and toilet offered at a minimum of every 2 hours 6. RN modifies the patient's plan of care by entering a problem statement related to safety; individualizes the safety outcome Outcome: Progressing Note: Evaluation of progress towards goal: Patient remains in need of restraints at this time due to the risk for pulling lines/tubes out. Education given. Family aware of need at this time. * PT/OT/BLOCK HACKER - Gary Hernandez CCC-BLOCK HACKER - 06/06/2025 9:37 AM EDT Speech Therapy Evaluation Bedside Swallow/Feeding Evaluation Speech & Language Cognitive Evaluation Discharge Recommendations for Safe Patient Transition BLOCK HACKER Therapy Recommendations: Continue ST services Not appropriate for PO at this time. Recommending alternate means of nutrition and hydration for now. Recommendations Diet Level: NPO Liquid Level: No liquids Alternate Means Of:: Nutrition, Hydration Referrals: (VFSS when appropriate) Impressions Oral Dysphagia: Moderate-severe Pharyngeal Dysphagia Suspected: Yes Plan Frequency: 3-4days/week Duration: until discharge Need for skilled Speech Language Pathology Services to address deficits in feeding/swallowing due to a status decline resulting from ICH. 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 Diagnostic therapy and education were provided. Pt benefited from cueing and repetition. Pt informed on results and recommendations of evaluation. Unable to complete SLUMS and PHQ2. Prognosis Services: Skilled BLOCK HACKER services to address the above deficits Prognosis/Potential: Good Considerations: Age, Cognition Assessment Bedside Swallow/Feeding Eval Speech & Language Cognitive Eval Baseline Assessment Additional Testing Results: Computed Tomography Associated Problems: Mental status changes Respiratory Status: Room Air Behavior/Cognition: Lethargic Patient Positioning: Upright in bed Baseline Vocal Quality: Weak Volitional Swallow: Delayed Laryngectomy: No Ability to Control Secretions: Yes Allergies Marked As Reviewed: Complete Oral/Motor Overall Oral/Motor Status: Exceptions to Within Functional Limits Labial ROM: Reduced Labial Strength: Reduced Labial Coordination: Reduced Lingual ROM: Reduced Lingual Strength: Reduced Lingual Coordination: Reduced Facial Strength: Reduced Facial Coordination: Reduced Vocal Quality: Exceptions to WFL Wet: Mild Weak: Moderate Vocal Intensity: Moderately decreased Intelligibility: Intelligibility reduced Intelligibility Rating: Moderate Breath Support: Adequate for speech Xerostomia: Yes Hearing: Within Functional Limits Consistencies Assessed: Yes Ice Chips Presentation: Spoon Oral: Suspect premature spillage Pharyngeal: Decreased laryngeal elevation, Delayed swallow initiation Level 4 Pureed Presentation: Spoon Oral: Suspect premature spillage Pharyngeal: Decreased laryngeal elevation, Delayed swallow initiation Pain Assessment Pain Assessment: No/denies pain Oral/Motor Overall Oral/Motor Status: Exceptions to Within Functional Limits Labial ROM: Reduced Labial Strength: Reduced Labial Coordination: Reduced Lingual ROM: Reduced Lingual Strength: Reduced Lingual Coordination: Reduced Facial Strength: Reduced Facial Coordination: Reduced Vocal Quality: Exceptions to WFL Wet: Mild Weak: Moderate Vocal Intensity: Moderately decreased Intelligibility: Intelligibility reduced Intelligibility Rating: Moderate Breath Support: Adequate for speech Xerostomia: Yes Hearing: Within Functional Limits Auditory Comprehension Overall Auditory Comphension Status: Exceptions to Within Functional Limits Yes/No Questions: Exceptions to WFL Basic Questions: Moderate Complex Questions: Severe Commands: Exceptions to WFL One Step Basic Commands: Moderate Two Step Basic Commands: Severe Multistep Basic Commands: Severe Complex/Abstract Commands: Severe Expression Overall Expression Status: Exceptions to Within Functional Limits Primary Mode of Expression: Verbal Verbal Expression Overall Verbal Expression Status: Exceptions to Within Functional Limits Initiation: Impairment Automatics: Impairment Repetition: Impairment Naming: Impairment Confrontation: Moderate Convergent: Severe Divergent: Severe Responsive: Severe Speech Production Overall Speech Production: Exceptions to Within Functional Limits Dysarthria: Present Pragmatics/Social Functioning Overall Pragmatic Status: Exceptions to Within Functional Limits Topic Initiation: Severe Topic Maintenance: Severe Fluency Phrase Level: Impaired High Level Language Overall High Level Language Status: Unable to assess Cognition Overall Cognitive Status: Exceptions to Within Functional Limits Arousal/Alertness: Delayed responses to stimuli Attention Span: Difficulty attending to directions Memory: Decreased short term memory, Decreased recall of recent events Orientation Level: Oriented to person, Disoriented to place, Disoriented to time, Disoriented to situation Following Commands: Follows one step commands with repetition, Follows one step commands with increased time Safety Judgment: Decreased awareness of need for safety, Decreased awareness of need for assistance Awareness of Errors: Decreased awareness of errors Insight of Deficits: Decreased awareness of deficits Problem Solving: Assistance required to identify errors made, Assistance required to generate solutions Pain Assessment Pain Assessment: No/denies pain Plan Diagnosis Code Swallowing: R13.12 Dysphagia, oropharyngeal phase, I69.191 Dysphagia following nontraumatic intracerebral hemorrhage + Intracerebral Hemorrhage: I69.128 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 Speech Therapy Care Plan Speech Therapy Care Plan (Active) Template: ST - Dysphagia Problem: Swallowing Dates: Start: 06/06/25 Disciplines: BLOCK HACKER Goal: LTG: Patient will maintain adequate nutrition/ hydration with optimum safety and efficiency of swallowing function of oral intake without overt signs/symptoms of aspiration for the highest appropriate diet level Dates: Start: 06/06/25 Expected End: 07/12/25 Disciplines: BLOCK HACKER Goal: STG: Pt will tolerate ice chip/therapeutic water trials without overt s/s of aspiration with 90% accuracy with min cues and use of compensatory strategies Dates: Start: 06/06/25 Expected End: 07/12/25 Disciplines: BLOCK HACKER Template: ST - Rehab Speech Problem: Auditory Comprehension Dates: Start: 06/06/25 Disciplines: BLOCK HACKER Goal: LTG: Patient will comprehend communication related to basic medical and social needs and utilize compensatory strategies to maintain safety in a functional living environment Dates: Start: 06/06/25 Expected End: 07/12/25 Disciplines: BLOCK HACKER Goal: STG: Patient will complete complex, paragraph level auditory comprehension tasks with 90% accuracy with minimal cueing Dates: Start: 06/06/25 Expected End: 07/12/25 Disciplines: BLOCK HACKER Problem: Cognitive Linguistic Dates: Start: 06/06/25 Disciplines: BLOCK HACKER Goal: LTG: Patient will display functional cognitive-linguistic skills to demonstrate appropriate communication and safety within daily activities in a functional living environment Dates: Start: 06/06/25 Expected End: 07/12/25 Disciplines: BLOCK HACKER Goal: STG: Patient will recall information discussed during therapy session via retelling/answeringquestions with 90% accuracy with minimal cueing Dates: Start: 06/06/25 Expected End: 07/12/25 Disciplines: BLOCK HACKER Problem: High Level Language Dates: Start: 06/06/25 Disciplines: BLOCK HACKER Goal: LTG: Patient will demonstrate use of self-awareness, goal setting, planning, initiation, self-monitoring and problem solving during daily activities to improve safety and awareness in a functional living environment Dates: Start: 06/06/25 Expected End: 07/12/25 Disciplines: BLOCK HACKER Goal: STG: Patient will demonstrate functional problem solving and safety awareness with 90% accuracy in daily living tasks in order to increase safe interactions with environment and decrease assistance from caregivers Dates: Start: 06/06/25 Expected End: 07/12/25 Disciplines: BLOCK HACKER Goal: STG: Patient will complete simple to complex organization, scheduling, planning and reasoningtasks to improve problem solving and safety awareness with 90% accuracy with minimal cueing Dates: Start: 06/06/25 Expected End: 07/12/25 Disciplines: BLOCK HACKER Problem: Verbal Expression Dates: Start: 06/06/25 Disciplines: BLOCK HACKER Goal: LTG: Patient will utilize compensatory strategies to communicate wants and needs effectively to different conversational partners, maintain safety and participate socially in a functional living environment Dates: Start: 06/06/25 Expected End: 07/12/25 Disciplines: BLOCK HACKER Goal: STG: Patient will complete simple to complex divergent and convergent naming tasks with 90% accuracy with minimal cueing to improve thought organization Dates: Start: 06/06/25 Expected End: 07/12/25 Disciplines: BLOCK HACKER Goal: STG: Patient will complete abstract naming tasks with 90% accuracy with minimum cueing to improve narrative expansion and discourse during activities of daily living Dates: Start: 06/06/25 Expected End: 07/12/25 Disciplines: BLOCK HACKER Speech Therapy Care Plan (Resolved) There are no resolved problems. Principal Problem: ICH (intracerebral hemorrhage) ([facility]) * Plan of Care - Jenniffer Mix RN - 06/05/2025 7:12 PM EDT Problem: Pain Goal: Patient goal is pain score less than 4, able to rest, and participant in treatment plan as appropriate Description: INTERVENTIONS: 1. Encourage patient or legal junior sales representative to report early pain and ask for pain medicine when needed 2. Assess pain using appropriate pain scale and include the scale used when documenting 3. Administer analgesics based on type and severity of pain and evaluate response within appropriate time frame 4. Implement non-pharmacological measures as appropriate and evaluate response 5. Consider cultural and social influences on pain and pain management 6. Notify LIP if interventions ineffective or patient reports new pain 7. Monitor vital signs including pulse ox, end-tidal CO2 based on pain intervention 8. Reassess pain per policy 9. Teach patient or legal junior sales representative interventions for comforting Outcome: Progressing Note: Evaluation of progress towards goal: Patient has PRN pain medication. Checking with every assessment. Monitoring vitals. Problem: Safety Goal: Patient will be injury free during hospitalization Description: INTERVENTIONS: 1. Assess patient's risk for falls and implement fall prevention plan of care per policy 2. Provide and maintain a safe environment 3. Proper use of double Identifiers 4. Medication administration using the 5 rights 5. Hand hygiene 6. Specimens are labeled at the bedside 7. Instruct patient/ patient junior sales representative about use of safety devices 8. Include patient/ patient junior sales representative in decisions related to safety Outcome: Progressing Note: Evaluation of progress towards goal: Patient remains injury free through hospital stay at this time. Fall risk precautions in place as appropriate for patient. Will continue to monitor. Problem: Infection Goal: Absence of infection during hospitalization Description: INTERVENTIONS 1. Assess and monitor for signs and symptoms of infection. 2. Monitor lab/diagnostic results. 3. Monitor all insertion sites i.e., indwelling lines, tubes and drains. 4. Monitor endotracheal (as able) and nasal secretions for changes in amount and color. 5. Administer medications as ordered. 6. Instruct and encourage patient and family to use good hand hygiene technique. 7. Identify and instruct patient/patient junior sales representative in use of appropriate isolation precautionsfor identified infection/symptoms. 8. Provide and discuss with patient/patient junior sales representative on educational MDRO sheet. 9. Encourage and monitor nutritional status daily and consult cleaner window if indicated. 10. Implement neutropenic guidelines as needed. Outcome: Progressing Note: Evaluation of progress towards goal: Labs and vitals monitored as ordered. Medications administered as ordered. Patient remains free from infection at this time. Problem: Knowledge Deficit Goal: Patient/patient junior sales representative demonstrates understanding of disease process, treatment plan,medications, and discharge instructions Description: INTERVENTIONS 1. Complete learning assessment and assess knowledge base 2. Provide teaching at level of understanding 3. Provide teaching via preferred learning method(s) Outcome: Progressing Note: Evaluation of progress towards goal: Care plan discussed & goals for shift set with patient input appreciated. All questions answered. Problem: Discharge Planning Goal: Discharge to post-acute care, other facility, or home with appropriate resources Description: Patient's goal is: INTERVENTIONS 1. Conduct assessment to determine patient/family and health care team treatment goals, and need for post-acute services based on payer coverage, community resources, and patient preferences, and barriers to discharge 2. Coordinate with Social work, Care Navigation, and Utilization Review to arrange appropriate level of services according to patient's needs based on patient preference and payer coverage in collaboration with the physician and health care team 3. Address psychosocial, clinical, and financial barriers to discharge as identified in assessment in conjunction with the patient/family and health care team 4. Consult appropriate ancillary services (i.e.. PT/OT/ST, etc) as needed 5. Communicate with and update the patient/family, physician, and health care team regarding progress on the discharge plan 6. Identify discharge learning needs (meds, wound care, etc). 7. Arrange for needed discharge transportation as appropriate Outcome: Progressing Note: Evaluation of progress towards goal: Discharge orders not yet completed. Problem: Neurological Deficit Goal: Neurological status is stable or improving Description: Patient's goal is: INTERVENTIONS 1. Complete Neurological assessment as indicated/ordered 2. Initiate measures to prevent increased intracranial pressure 3. Monitor and assess patient's level of consciousness, motor function, sensory function, and levelof assistance needed for ADLs 4. Monitor and report changes from baseline 5. Maintain blood pressure and fluid volume within ordered parameters to optimize cerebral perfusion and minimize risk of hemorrhage 6. Monitor labs and diagnostic tests 7. Administer anti-seizure medications as ordered 8. Maintain airway, patient safety and administer oxygen as ordered 9. Monitor patient for seizure activity, document and report duration and description of seizure toLIP 10. If seizure occurs, turn patient to side and suction secretions as needed 11. Reorient patient post seizure 12. Seizure pads on all 4 side rails 13. Instruct patient/family to notify RN of any seizure activity 14. Instruct patient/family to call for assistance with activity based on assessment 15. Utilize bleeding precautions if thrombolytic given Outcome: Progressing Note: Evaluation of progress towards goal: Patient's level of consciousness, motor function, sensory function, and level of assistance needed for ADLs all monitored and assessed at this time. Changesfrom baseline reported to necessary personal when needed. Patients care is optimized for cerebral perfusion accordingly to patients orders. Problem: Activity Intolerance/Impaired Mobility Goal: Mobility/activity is maintained at optimum level for patient Description: Patient's goal is: INTERVENTIONS 1. Assess and monitor patient barriers to mobility and need for assistive/adaptive devices 2. Assess patient's emotional response to limitations 3. Collaborate with interdisciplinary teams and initiate plans and interventions as ordered 4. Encourage independent activity per tolerance 5. Maintain proper body alignment 6. Perform active/passive ROM as tolerated/ordered 7. Coordinate activities to conserve energy 8. Reposition patient 9. Ensure adequate rest/sleep time Outcome: Progressing Note: Evaluation of progress towards goal: Patient's ADL assessed each shift. PT/OT/SP ordered and evaluated as appropriate. Problem: Communication Impairment Goal: Ability to express needs and understand communication Description: INTERVENTIONS 1. Assess patient's communication skills and ability to understand information 2. Provide alternate method of communication if needed i.e. ipad, sign board, pen/paper 3. Collaborate with Speech Therapy to develop effective communication strategies 4. Include patient/patient junior sales representative in decisions related to communication Outcome: Progressing Note: Evaluation of progress towards goal: Patient/family able to express needs and understands communication at this time. Problem: Potential for Aspiration Goal: Patient's risk of aspiration is minimized Description: INTERVENTIONS 1. Assess and monitor vital signs, respiratory status, and labs (WBC) 2. Monitor for signs of aspiration (tachypnea, cough, rales, wheezing, cyanosis, fever) 3. Assess and monitor patient's ability to swallow 4. Place patient up in chair to eat if possible 5. Elevate head of bed 90 degrees to eat if unable to get patient up into chair 6. Supervise patient during oral intake 7. Instruct patient to take small bites 8. Instruct patient to take small single sips when taking liquids 9. Follow patient-specific strategies generated by speech pathologist 10. Complete bedside swallow screen if appropriate and take actions as indicated. 11. Administer prescribed medications and monitor effects Outcome: Progressing Note: Evaluation of progress towards goal: Risk for aspiration assessed continuously for patient. Problem: Anxiety Goal: Anxiety is at manageable level Description: Patient's goal is: INTERVENTIONS 1. Assess and monitor patient's anxiety level 2. Monitor for signs and symptoms of anxiety both physical and emotional (heart palpitations, chestpain, shortness of breath, headaches, nausea, feeling jumpy, restlessness, irritable, apprehensive) 3. Reorient/orient patient to unit/surroundings 4. Explain treatment plan 5. Explain tests/procedures prior to initiation 6. Encourage participation in care 7. Encourage verbalization of concerns/fears 8. Assess coping mechanisms 9. Assist in developing anxiety-reducing skills 10. Administer complimentary therapies 11. Manage patient's environment 12. Limit or eliminate stimulants such as caffeine and nicotine 13. Collaborate with ancillary departments 14. Include patient/patient junior sales representative in decisions related to anxiety Outcome: Progressing Note: Evaluation of progress towards goal: Questions/comments/concerned addressed from patient/family. Anxiety remains at a manageable level. Will continue to monitor. Problem: Inadequate Coping Goal: Demonstrates and verbalizes ability to cope effectively Description: Patient's goal is: INTERVENTIONS 1. Patient is able to verbalize feelings related to emotional state 2. Encourage verbalization of feelings, perceptions, fears, stressors, loss of loved ones 3. Encourage verbalization of problems out of their control 4. Encourage participation in care and self management 5. Inform patient of all treatment/care prior to providing care 6. Collaborate with pastoral/spiritual care, social media marketer, mental health counselor as needed. 7. Instruct patient on diversional activities such as physical activity, distraction, and deep breathing exercises to assist with coping 8. Involve patient's junior sales representative in care Outcome: Progressing Note: Evaluation of progress towards goal: Patient/family demonstrates/verbalizes ability to cope effectively. Will continue to monitor. Problem: Potential for Compromised Skin Integrity Goal: Skin integrity is maintained or improved Description: Patient's goal is: INTERVENTIONS 1. Perform initial skin assessment on admission and as needed 2. Turn patient every 2 hours and PRN 3. Relieve pressure to bony prominences 4. Avoid shearing 5. Keep skin clean and dry 6. Alternate a full bath with partial baths for elderly 7. Apply lotion/moisturizer on skin 8. Monitor patient's hygiene practices 9. Float heels 10. Collaborate with interdisciplinary team and initiate plans and interventions as needed Outcome: Progressing Note: Evaluation of progress towards goal: Patient repositioned Q2 hrs. Monitor for s/s of skin breakdown and treat/communicate with treatment team as needed. Goal: Patient's nutritional intake is adequate Description: Patient's goal is: INTERVENTIONS 1. Assess and monitor food intake and supplements, patient food preferences, nausea, vomiting, labs, oral cavity (gums, teeth, tongue, mucosa), proper denture fit, and cultural beliefs 2. Monitor for signs of hypoglycemia and hyperglycemia 3. Collaborate with interdisciplinary team and initiate plan and interventions as ordered 4. Monitor patient's weight 5. Assist patient with meals/food selection 6. Assist patient with eating 7. Allow adequate time for meals 8. Provide pleasant environment during mealtime 9. Increase social contact during mealtimes 10. Plan activities to conserve energy 11. Encourage/perform oral hygiene as appropriate 12. Encourage patient to take dietary supplement as ordered 13. Collaborate with clinical cleaner window 14. Include patient/ patient's junior sales representative in decisions related to nutrition Outcome: Progressing Note: Evaluation of progress towards goal: Intake documented, weight documented every day. Monitoring for any nausea, vomiting and diarrhea. Patients nutritional intake is adequate at this time. Willcontinue to monitor Problem: Potential for Inadequate Tissue Perfusion - Venous Goal: Tissue perfusion is adequate - venous Description: Patient's goal is: INTERVENTIONS 1. Assess and monitor skin color and temperature, skin integrity, pulses, capillary refill, edema, pain in extremities and Homans' sign 2. Monitor for signs and symptoms (dyspnea, tachypnea, and tachycardia) 3. Encourage ambulation/activity per patient's tolerance and physician order 4. Elevate feet when in chair 5. Encourage patient to do ankle pump exercises 6. Apply anti-embolism stockings/devices as ordered Outcome: Progressing Note: Evaluation of progress towards goal: Tissue perfusion remains adequate at this time. Problem: Self Care Deficit Goal: Return ADL status to a safe level of function Description: Patient's goal is: INTERVENTIONS 1. Administer medication as ordered 2. Assess ADL deficits and provide assistive devices as needed 3. Obtain PT/OT consults as needed 4. Assist and instruct patient to increase activity and self care as tolerated Outcome: Progressing Note: Evaluation of progress towards goal: Patients level of function will be assessed throughout shift. Problem: Moderate - High Risk Fall Score Description: Long Fall Score of =/> 25 or indicated by [facility] Assessment Goal: Patient should be free from fall Description: Interventions: 1. [place] to environment 2. Hourly rounds addressing the 4 P's (Pain, Positioning, Possessions, Potty) 3. Clear area of hazards (spills, clutter, electrical cords, unnecessary equipment) 4. Place equipment (bed & TV controls, call light, phone, urinal) within reach 5. Encourage patient to wear glasses and hearing aides as appropriate 6. Maintain bed in lowest position 7. Lock wheels on bed/wheelchair 8. Provide adequate lighting, including night light 9. Assess need for additional bedding, food/fluids, pain med's prior to sleep/routinely 10. Provide gripper slippers or personal non-skid footwear 11. Teach patient and patient junior sales representative to maintain environment for safety and engage in all aspects of fall prevention program 12. Remind patient to call for help before getting out of bed 13. Initiate bed/chair/exit alarms supportive devices as appropriate, (chair wedge, no-skid floor mat, raised edge mattress, hip protectors) 14. Locate patient bed assignment for optimal visualization 15. Evaluate and identify Safe Patient Handling Equipment needs 16. Provide supervision when out of bed or chair 17. Utilize gait belt as needed to assist with ambulation 18. Place adaptive equipment (cane, walker) within reach 19. Request patient junior sales representative bring adaptive equipment/mobility aids from home or obtain and provide as needed 20. Consult pharmacy regarding effects of med's affecting mobility, cognition, and alternatives 21. Obtain physician order for PT if risk factors associated with mobility are present 22. Obtain physician order for OT as appropriate 23. Utilize diversional activities 24. Educate patient and patient junior sales representative how to maintain a safe environment during visitationtimes (notify nurse prior to leaving bedside) 25. Consider appropriateness of medical or non-medical surgical tech 26. Set up voiding schedule as appropriate (every 2 hours) Outcome: Progressing Note: Evaluation of progress towards goal: Fall risk assessment preformed and safety measures in place. Education given to family/patient. Will continue to monitor. Problem: Safety - Medical Restraint Goal: Remains free of injury from restraints (Restraint for Interference with Radio Script Writer) Description: INTERVENTIONS: 1. Determine that other, less restrictive measures have been tried or would not be effective beforeapplying the restraint 2. Evaluate the patient's condition at the time of restraint application 3. Inform patient/family regarding the reason for restraint 4. Q2H: Monitor safety, Vital signs, psychosocial status, signs of injury, skin integrity, circulation, neurovascular status in affected extremities, respiratory status, comfort, nutrition and hydration, hygiene, ROM, elimination needs 5. Doctor will be notified of restraint 6. RN properly applies restraints per physician order Outcome: Progressing Note: Evaluation of progress towards goal: Patient remains free from injury from restraints at thistime. Goal: Free from restraint(s) (Restraint for Interference with Radio Script Writer) Description: INTERVENTIONS: 1. ONCE/SHIFT or MINIMUM Q12H: Assess and document the continuing need for restraints 2. Order is valid for the duration of the episode of care 3. Discontinue at the earliest possible time once the reason for restraints no longer exists 4. Identify and implement measures to help patient regain control 5. Food, fluids, and toilet offered at a minimum of every 2 hours 6. RN modifies the patient's plan of care by entering a problem statement related to safety; individualizes the safety outcome Outcome: Progressing Note: Evaluation of progress towards goal: Patient remains in need of restraints at this time due to the risk for pulling lines/tubes out. Education given. Family aware of need at this time. * PT/OT/BLOCK HACKER - XANDER Patel - 06/05/2025 9:49 AM EDT Speech Therapy BLOCK HACKER Type of Visit: Medical deferral Reasons for Medical Deferral: Other (see comments) Per RN, pt too tired/lethargic for ST eval at this time. * PT/OT/BLOCK HACKER - Juan Kim PT - 06/05/2025 8:18 AM EDT Physical Therapy PT Type of Visit: Medical deferral Reason For Medical Deferral: RN deems inappropriate (hold per morning rounds, will see pt as able) Activity Limitations: Strict bedrest * PT/OT/BLOCK HACKER - Dixon Murphy OTR/[place] - 06/05/2025 7:42 AM EDT Occupational Therapy OT Type of Visit: Medical deferral Reason For Medical Deferral: Activity limitations Activity Limitations: Strict bedrest * Plan of Care - Jenniffer Mix RN - 06/05/2025 12:17 AM EDT Problem: Pain Goal: Patient goal is pain score less than 4, able to rest, and participant in treatment plan as appropriate Description: INTERVENTIONS: 1. Encourage patient or legal junior sales representative to report early pain and ask for pain medicine when needed 2. Assess pain using appropriate pain scale and include the scale used when documenting 3. Administer analgesics based on type and severity of pain and evaluate response within appropriate time frame 4. Implement non-pharmacological measures as appropriate and evaluate response 5. Consider cultural and social influences on pain and pain management 6. Notify LIP if interventions ineffective or patient reports new pain 7. Monitor vital signs including pulse ox, end-tidal CO2 based on pain intervention 8. Reassess pain per policy 9. Teach patient or legal junior sales representative interventions for comforting Outcome: Progressing Note: Evaluation of progress towards goal: Patient has PRN pain medication. Checking with every assessment. Monitoring vitals. Problem: Safety Goal: Patient will be injury free during hospitalization Description: INTERVENTIONS: 1. Assess patient's risk for falls and implement fall prevention plan of care per policy 2. Provide and maintain a safe environment 3. Proper use of double Identifiers 4. Medication administration using the 5 rights 5. Hand hygiene 6. Specimens are labeled at the bedside 7. Instruct patient/ patient junior sales representative about use of safety devices 8. Include patient/ patient junior sales representative in decisions related to safety Outcome: Progressing Note: Evaluation of progress towards goal: Patient remains injury free through hospital stay at this time. Fall risk precautions in place as appropriate for patient. Will continue to monitor. Problem: Infection Goal: Absence of infection during hospitalization Description: INTERVENTIONS 1. Assess and monitor for signs and symptoms of infection. 2. Monitor lab/diagnostic results. 3. Monitor all insertion sites i.e., indwelling lines, tubes and drains. 4. Monitor endotracheal (as able) and nasal secretions for changes in amount and color. 5. Administer medications as ordered. 6. Instruct and encourage patient and family to use good hand hygiene technique. 7. Identify and instruct patient/patient junior sales representative in use of appropriate isolation precautionsfor identified infection/symptoms. 8. Provide and discuss with patient/patient junior sales representative on educational MDRO sheet. 9. Encourage and monitor nutritional status daily and consult cleaner window if indicated. 10. Implement neutropenic guidelines as needed. Outcome: Progressing Note: Evaluation of progress towards goal: Labs and vitals monitored as ordered. Medications administered as ordered. Patient remains free from infection at this time. Problem: Knowledge Deficit Goal: Patient/patient junior sales representative demonstrates understanding of disease process, treatment plan,medications, and discharge instructions Description: INTERVENTIONS 1. Complete learning assessment and assess knowledge base 2. Provide teaching at level of understanding 3. Provide teaching via preferred learning method(s) Outcome: Progressing Note: Evaluation of progress towards goal: Care plan discussed & goals for shift set with patient input appreciated. All questions answered. Problem: Discharge Planning Goal: Discharge to post-acute care, other facility, or home with appropriate resources Description: Patient's goal is: INTERVENTIONS 1. Conduct assessment to determine patient/family and health care team treatment goals, and need for post-acute services based on payer coverage, community resources, and patient preferences, and barriers to discharge 2. Coordinate with Social work, Care Navigation, and Utilization Review to arrange appropriate level of services according to patient's needs based on patient preference and payer coverage in collaboration with the physician and health care team 3. Address psychosocial, clinical, and financial barriers to discharge as identified in assessment in conjunction with the patient/family and health care team 4. Consult appropriate ancillary services (i.e.. PT/OT/ST, etc) as needed 5. Communicate with and update the patient/family, physician, and health care team regarding progress on the discharge plan 6. Identify discharge learning needs (meds, wound care, etc). 7. Arrange for needed discharge transportation as appropriate Outcome: Progressing Note: Evaluation of progress towards goal: Discharge orders not yet completed. Problem: Neurological Deficit Goal: Neurological status is stable or improving Description: Patient's goal is: INTERVENTIONS 1. Complete Neurological assessment as indicated/ordered 2. Initiate measures to prevent increased intracranial pressure 3. Monitor and assess patient's level of consciousness, motor function, sensory function, and levelof assistance needed for ADLs 4. Monitor and report changes from baseline 5. Maintain blood pressure and fluid volume within ordered parameters to optimize cerebral perfusion and minimize risk of hemorrhage 6. Monitor labs and diagnostic tests 7. Administer anti-seizure medications as ordered 8. Maintain airway, patient safety and administer oxygen as ordered 9. Monitor patient for seizure activity, document and report duration and description of seizure toLIP 10. If seizure occurs, turn patient to side and suction secretions as needed 11. Reorient patient post seizure 12. Seizure pads on all 4 side rails 13. Instruct patient/family to notify RN of any seizure activity 14. Instruct patient/family to call for assistance with activity based on assessment 15. Utilize bleeding precautions if thrombolytic given Outcome: Progressing Note: Evaluation of progress towards goal: Patient's level of consciousness, motor function, sensory function, and level of assistance needed for ADLs all monitored and assessed at this time. Changesfrom baseline reported to necessary personal when needed. Patients care is optimized for cerebral perfusion accordingly to patients orders. Problem: Activity Intolerance/Impaired Mobility Goal: Mobility/activity is maintained at optimum level for patient Description: Patient's goal is: INTERVENTIONS 1. Assess and monitor patient barriers to mobility and need for assistive/adaptive devices 2. Assess patient's emotional response to limitations 3. Collaborate with interdisciplinary teams and initiate plans and interventions as ordered 4. Encourage independent activity per tolerance 5. Maintain proper body alignment 6. Perform active/passive ROM as tolerated/ordered 7. Coordinate activities to conserve energy 8. Reposition patient 9. Ensure adequate rest/sleep time Outcome: Progressing Note: Evaluation of progress towards goal: Patient's ADL assessed each shift. PT/OT/SP ordered and evaluated as appropriate. Problem: Communication Impairment Goal: Ability to express needs and understand communication Description: INTERVENTIONS 1. Assess patient's communication skills and ability to understand information 2. Provide alternate method of communication if needed i.e. ipad, sign board, pen/paper 3. Collaborate with Speech Therapy to develop effective communication strategies 4. Include patient/patient junior sales representative in decisions related to communication Outcome: Progressing Note: Evaluation of progress towards goal: Patient/family able to express needs and understands communication at this time. Problem: Potential for Aspiration Goal: Patient's risk of aspiration is minimized Description: INTERVENTIONS 1. Assess and monitor vital signs, respiratory status, and labs (WBC) 2. Monitor for signs of aspiration (tachypnea, cough, rales, wheezing, cyanosis, fever) 3. Assess and monitor patient's ability to swallow 4. Place patient up in chair to eat if possible 5. Elevate head of bed 90 degrees to eat if unable to get patient up into chair 6. Supervise patient during oral intake 7. Instruct patient to take small bites 8. Instruct patient to take small single sips when taking liquids 9. Follow patient-specific strategies generated by speech pathologist 10. Complete bedside swallow screen if appropriate and take actions as indicated. 11. Administer prescribed medications and monitor effects Outcome: Progressing Note: Evaluation of progress towards goal: Risk for aspiration assessed continuously for patient. Problem: Anxiety Goal: Anxiety is at manageable level Description: Patient's goal is: INTERVENTIONS 1. Assess and monitor patient's anxiety level 2. Monitor for signs and symptoms of anxiety both physical and emotional (heart palpitations, chestpain, shortness of breath, headaches, nausea, feeling jumpy, restlessness, irritable, apprehensive) 3. Reorient/orient patient to unit/surroundings 4. Explain treatment plan 5. Explain tests/procedures prior to initiation 6. Encourage participation in care 7. Encourage verbalization of concerns/fears 8. Assess coping mechanisms 9. Assist in developing anxiety-reducing skills 10. Administer complimentary therapies 11. Manage patient's environment 12. Limit or eliminate stimulants such as caffeine and nicotine 13. Collaborate with ancillary departments 14. Include patient/patient junior sales representative in decisions related to anxiety Outcome: Progressing Note: Evaluation of progress towards goal: Questions/comments/concerned addressed from patient/family. Anxiety remains at a manageable level. Will continue to monitor. Problem: Inadequate Coping Goal: Demonstrates and verbalizes ability to cope effectively Description: Patient's goal is: INTERVENTIONS 1. Patient is able to verbalize feelings related to emotional state 2. Encourage verbalization of feelings, perceptions, fears, stressors, loss of loved ones 3. Encourage verbalization of problems out of their control 4. Encourage participation in care and self management 5. Inform patient of all treatment/care prior to providing care 6. Collaborate with pastoral/spiritual care, social media marketer, mental health counselor as needed. 7. Instruct patient on diversional activities such as physical activity, distraction, and deep breathing exercises to assist with coping 8. Involve patient's junior sales representative in care Outcome: Progressing Note: Evaluation of progress towards goal: Patient/family demonstrates/verbalizes ability to cope effectively. Will continue to monitor. Problem: Potential for Compromised Skin Integrity Goal: Skin integrity is maintained or improved Description: Patient's goal is: INTERVENTIONS 1. Perform initial skin assessment on admission and as needed 2. Turn patient every 2 hours and PRN 3. Relieve pressure to bony prominences 4. Avoid shearing 5. Keep skin clean and dry 6. Alternate a full bath with partial baths for elderly 7. Apply lotion/moisturizer on skin 8. Monitor patient's hygiene practices 9. Float heels 10. Collaborate with interdisciplinary team and initiate plans and interventions as needed Outcome: Progressing Note: Evaluation of progress towards goal: Patient repositioned Q2 hrs. Monitor for s/s of skin breakdown and treat/communicate with treatment team as needed. Goal: Patient's nutritional intake is adequate Description: Patient's goal is: INTERVENTIONS 1. Assess and monitor food intake and supplements, patient food preferences, nausea, vomiting, labs, oral cavity (gums, teeth, tongue, mucosa), proper denture fit, and cultural beliefs 2. Monitor for signs of hypoglycemia and hyperglycemia 3. Collaborate with interdisciplinary team and initiate plan and interventions as ordered 4. Monitor patient's weight 5. Assist patient with meals/food selection 6. Assist patient with eating 7. Allow adequate time for meals 8. Provide pleasant environment during mealtime 9. Increase social contact during mealtimes 10. Plan activities to conserve energy 11. Encourage/perform oral hygiene as appropriate 12. Encourage patient to take dietary supplement as ordered 13. Collaborate with clinical cleaner window 14. Include patient/ patient's junior sales representative in decisions related to nutrition Outcome: Progressing Note: Evaluation of progress towards goal: Intake documented, weight documented every day. Monitoring for any nausea, vomiting and diarrhea. Patients nutritional intake is adequate at this time. Willcontinue to monitor Problem: Potential for Inadequate Tissue Perfusion - Venous Goal: Tissue perfusion is adequate - venous Description: Patient's goal is: INTERVENTIONS 1. Assess and monitor skin color and temperature, skin integrity, pulses, capillary refill, edema, pain in extremities and Homans' sign 2. Monitor for signs and symptoms (dyspnea, tachypnea, and tachycardia) 3. Encourage ambulation/activity per patient's tolerance and physician order 4. Elevate feet when in chair 5. Encourage patient to do ankle pump exercises 6. Apply anti-embolism stockings/devices as ordered Outcome: Progressing Note: Evaluation of progress towards goal: Tissue perfusion remains adequate at this time. Problem: Self Care Deficit Goal: Return ADL status to a safe level of function Description: Patient's goal is: INTERVENTIONS 1. Administer medication as ordered 2. Assess ADL deficits and provide assistive devices as needed 3. Obtain PT/OT consults as needed 4. Assist and instruct patient to increase activity and self care as tolerated Outcome: Progressing Note: Evaluation of progress towards goal: Patients level of function will be assessed throughout shift. Problem: Moderate - High Risk Fall Score Description: Long Fall Score of =/> 25 or indicated by [facility] Assessment Goal: Patient should be free from fall Description: Interventions: 1. [place] to environment 2. Hourly rounds addressing the 4 P's (Pain, Positioning, Possessions, Potty) 3. Clear area of hazards (spills, clutter, electrical cords, unnecessary equipment) 4. Place equipment (bed & TV controls, call light, phone, urinal) within reach 5. Encourage patient to wear glasses and hearing aides as appropriate 6. Maintain bed in lowest position 7. Lock wheels on bed/wheelchair 8. Provide adequate lighting, including night light 9. Assess need for additional bedding, food/fluids, pain med's prior to sleep/routinely 10. Provide gripper slippers or personal non-skid footwear 11. Teach patient and patient junior sales representative to maintain environment for safety and engage in all aspects of fall prevention program 12. Remind patient to call for help before getting out of bed 13. Initiate bed/chair/exit alarms supportive devices as appropriate, (chair wedge, no-skid floor mat, raised edge mattress, hip protectors) 14. Locate patient bed assignment for optimal visualization 15. Evaluate and identify Safe Patient Handling Equipment needs 16. Provide supervision when out of bed or chair 17. Utilize gait belt as needed to assist with ambulation 18. Place adaptive equipment (cane, walker) within reach 19. Request patient junior sales representative bring adaptive equipment/mobility aids from home or obtain and provide as needed 20. Consult pharmacy regarding effects of med's affecting mobility, cognition, and alternatives 21. Obtain physician order for PT if risk factors associated with mobility are present 22. Obtain physician order for OT as appropriate 23. Utilize diversional activities 24. Educate patient and patient junior sales representative how to maintain a safe environment during visitationtimes (notify nurse prior to leaving bedside) 25. Consider appropriateness of medical or non-medical surgical tech 26. Set up voiding schedule as appropriate (every 2 hours) Outcome: Progressing Note: Evaluation of progress towards goal: Fall risk assessment preformed and safety measures in place. Education given to family/patient. Will continue to monitor. Problem: Safety - Medical Restraint Goal: Remains free of injury from restraints (Restraint for Interference with Radio Script Writer) Description: INTERVENTIONS: 1. Determine that other, less restrictive measures have been tried or would not be effective beforeapplying the restraint 2. Evaluate the patient's condition at the time of restraint application 3. Inform patient/family regarding the reason for restraint 4. Q2H: Monitor safety, Vital signs, psychosocial status, signs of injury, skin integrity, circulation, neurovascular status in affected extremities, respiratory status, comfort, nutrition and hydration, hygiene, ROM, elimination needs 5. Doctor will be notified of restraint 6. RN properly applies restraints per physician order Outcome: Progressing Note: Evaluation of progress towards goal: Patient remains free from injury from restraints at thistime. Goal: Free from restraint(s) (Restraint for Interference with Radio Script Writer) Description: INTERVENTIONS: 1. ONCE/SHIFT or MINIMUM Q12H: Assess and document the continuing need for restraints 2. Order is valid for the duration of the episode of care 3. Discontinue at the earliest possible time once the reason for restraints no longer exists 4. Identify and implement measures to help patient regain control 5. Food, fluids, and toilet offered at a minimum of every 2 hours 6. RN modifies the patient's plan of care by entering a problem statement related to safety; individualizes the safety outcome Outcome: Progressing Note: Evaluation of progress towards goal: Patient remains in need of restraints at this time due to the risk for pulling lines/tubes out. Education given. Family aware of need at this time. documented in this encounter Plan of Treatment DateTypeDepartmentCare Team (Latest Contact Info)Flznogkrifh71/06/2025 9:00 AM ESTOffice Visit [facility] [place] [place] [address] Marion Martines, [employer] [facility] [address] [address] 07/18/2025 3:30 PM ESTOffice Visit [facility], A Department of [address] [place] [address] Yani Moses MD [address] [place] [address] [address] [place], [place] [id number] NameTypePriorityAssociated DiagnosesDate/TimeDISCONTINUE IN PROCESS EEG TESTING UpptkmespLrqtzbd09/15/2025 10:38 AM EDTNameTypePriorityAssociated DiagnosesOrder ScheduleDISCONTINUE IN PROCESS EEG TESTINGNeurologyRoutineOnce for 1 Occurrences starting 06/06/2025 until 06/06/2025Vas venous duplex lwr bilateral Vascular UltrasoundRoutine Nontraumatic intracerebral hemorrhage, unspecified cerebral location, unspecified laterality (CMS-HCC) Expected: 06/29/2025 (Approximate), Expires: 06/22/2026T brain without contrast ImagingRoutine Nontraumatic intracerebral hemorrhage, unspecified cerebral location, unspecified laterality (CMS-HCC) Expected: 07/22/2025 (Approximate), Expires: 06/22/2026documented as of this encounter Goals GoalPatient Goal TypeAssociated ProblemsRecent ProgressPatient-Stated?Author <enter goal here> Jodi Rivera LSW Note: Evaluation of progress towards goal: SNF documented as of this encounter Procedures Procedure NamePriorityDate/TimeAssociated DiagnosisCommentsBEDSIDE GLUCOSE Molawkd0806/22/2025 4:05 PM EDT BEDSIDE LCHVCUUPtrtpdm34/31/2025 11:32 AM EDT BEDSIDE ZZQVFHJNrjxdvx83/31/2025 8:29 AM EDT CBC WITH AUTO HPMCGCJSPLRCZkfoonr67/31/2025 8:00 AM EDT ULZRQXYSFNCcsjdzp14/31/2025 8:00 AM EDT ITWXIQFGUHtbeivd64/31/2025 8:00 AM EDT IONIZED XUPUTOPAkobiri50/31/2025 8:00 AM EDT COMPREHENSIVE METABOLIC NYEDOCkjutfe45/31/2025 8:00 AM EDT BEDSIDE INURESUSwthttf25/30/2025 9:22 PM EDT BEDSIDE BULQIAFThvxxms35/30/2025 4:[address] BRAIN WO FILEGFNC23/30/2025 2:07 PM EDT VASC VENOUS DUPLEX LOWER DAGCBBQEQKcwvnog38/30/2025 1:26 PM EDT BEDSIDE OVSZOQATxmqzlv96/30/2025 11:54 AM EDT BEDSIDE VGGNAFLOrrtmqz92/30/2025 7:44 AM EDT CBC WITH AUTO SMRZPLZUWNCFWuylikw90/30/2025 6:10 AM EDT JJLTLVOAQJKsjqqmu02/30/2025 6:10 AM EDT WWGJJRZJTLvkeyiy12/30/2025 6:10 AM EDT IONIZED UZZOSBFWcfgwqg02/30/2025 6:10 AM EDT COMPREHENSIVE METABOLIC WTYROWwwjpub84/30/2025 6:10 AM EDT BEDSIDE QLLXXOOFvnyviy76/29/2025 9:24 PM EDT BEDSIDE IOJHGNSCeriavk97/29/2025 3:37 PM EDT BEDSIDE DFNLFCSJttxjrl88/29/2025 11:52 AM EDT BEDSIDE BLWCXCGDbuunwe77/29/2025 7:21 AM EDT CBC WITH AUTO PKOVCEYQNJABSdkbfjd70/29/2025 6:11 AM EDT ZSONOSOQJWQagegpu63/29/2025 6:11 AM EDT BGZSIDPCYKqdgkeh15/29/2025 6:11 AM EDT IONIZED IQMIITCBapycxz80/29/2025 6:11 AM EDT COMPREHENSIVE METABOLIC BYLIENeiwxmd29/29/2025 6:11 AM EDT BEDSIDE FKFOJIIXbeatbq70/28/2025 9:05 PM EDT BEDSIDE SGZLNIXMlltxrj62/28/2025 12:09 PM EDT BEDSIDE SRKAZPUOygeqym61/28/2025 7:19 AM EDT CBC WITH AUTO MGVLWQVHTXPDEkrhatt62/28/2025 6:01 AM EDT NYGZBLJTBPMsdxudr59/28/2025 6:01 AM EDT ZZEGKQIXEUbkzvcn62/28/2025 6:01 AM EDT IONIZED DMGYCOANpcelqx55/28/2025 6:01 AM EDT COMPREHENSIVE METABOLIC GSVYRRbhnwla06/28/2025 6:01 AM EDT BEDSIDE BKGEOGMDielzan18/27/2025 9:48 PM EDT BEDSIDE TBPLRZLQiguxaq58/27/2025 4:25 PM EDT BEDSIDE NTHBTWMVnmvhht68/27/2025 11:29 AM EDT BEDSIDE TJOMIGWJzhgrgu17/27/2025 7:50 AM EDT CBC WITH AUTO LVHQVAZYNJWVSnivvgo27/27/2025 5:55 AM EDT NTCMFMREKQKkyfpnj28/27/2025 5:55 AM EDT OXHYKMHPKCzwrsjm22/27/2025 5:55 AM EDT IONIZED BSDYXXABnfuzom74/27/2025 5:55 AM EDT COMPREHENSIVE METABOLIC LOGQXDrayswt14/27/2025 5:55 AM EDT BEDSIDE DDLMJLSAdhhhgd50/26/2025 9:11 PM EDT BEDSIDE CTVRMVZKcbvnvu61/26/2025 4:05 PM EDT XR CHEST 1 LKXrtumhm79/26/2025 2:34 PM EDT BPAPPTHYYBQeoiuqf18/26/2025 2:14 PM EDT URINE CSNRGZSEfwloki04/26/2025 1:48 PM EDT BLOOD TFAOJQVWVKE34/26/2025 1:20 PM EDT BLOOD BRTHSBDFQSL07/26/2025 1:20 PM EDT BEDSIDE BNRPCVGLjdbrii26/26/2025 11:24 AM EDT BEDSIDE IZUNCZVMlpwbgx46/26/2025 7:44 AM EDT CBC WITH AUTO ERAFBATUXWHKFqpbjsi96/26/2025 6:08 AM EDT RDHBMHQSBAOjrllsh89/26/2025 6:08 AM EDT YHMSVZKQLEnsdonk57/26/2025 6:08 AM EDT IONIZED CZYDFNYEhkpuut12/26/2025 6:08 AM EDT COMPREHENSIVE METABOLIC GHUJHSwjejez58/26/2025 6:08 AM EDT BEDSIDE GEDRGZNQpnnild79/25/2025 9:06 PM EDT BEDSIDE APYHKWAVruepmz77/25/2025 3:58 PM EDT BEDSIDE ISGTYNOCfyyynq76/25/2025 12:36 PM EDT BEDSIDE TVDSTZGPnkmbnb84/25/2025 7:55 AM EDT CBC WITH AUTO HNNIFUPDMMLEScqzmbm95/25/2025 5:48 AM EDT QULXNBMONHZtolika67/25/2025 5:48 AM EDT DAZENWXCAPdxszrz04/25/2025 5:48 AM EDT IONIZED TZUFABSLtjdums27/25/2025 5:48 AM EDT COMPREHENSIVE METABOLIC NNJMHLxnyapq81/25/2025 5:48 AM EDT BEDSIDE JTIVRWGXuxfurr56/24/2025 8:58 PM EDT RASGQNGryjrtx81/24/2025 5:52 PM EDT QGZTOMIIRECZG42/24/2025 5:52 PM EDT BEDSIDE MEKCRLAZropasi74/24/2025 4:04 PM EDT VASC VENOUS DUPLEX LOWER ZQUWMQTFEHulkubl73/24/2025 3:37 PM EDT BEDSIDE GVKRAYSUqapjbw74/24/2025 12:48 PM EDT NM RENOGRAM WITH NVQOVGfdcgip60/24/2025 12:38 PM EDT BEDSIDE ATKMPDVWomynhy77/24/2025 7:59 AM EDT CBC WITH AUTO ZZJWNREIXYEKQptejqv28/24/2025 6:59 AM EDT HHQHAKCFVSSkfgnme03/24/2025 6:59 AM EDT QGTEVXAMLZsxfjrz54/24/2025 6:59 AM EDT IONIZED KMVZMPCUvpxjee23/24/2025 6:59 AM EDT COMPREHENSIVE METABOLIC XCDHGAfigpkp57/24/2025 6:59 AM EDT BEDSIDE HPLAVLLSanxvub52/23/2025 9:02 PM EDT BEDSIDE HYMAFMMDtewrto92/23/2025 4:32 PM EDT FL SWALLOW MOTILITY AYGAFZOXRbokrda15/23/2025 2:24 PM EDT BEDSIDE PWURTFIUegkxce29/23/2025 11:45 AM EDT BEDSIDE VEHDETPTrnvxic58/23/2025 9:02 AM EDT CBC WITH AUTO GYIAQSYXFESYEcdvtox95/23/2025 6:25 AM EDT XMGERRLWISEcmocvo29/23/2025 6:25 AM EDT IOFHZRBHFYwzgsjy17/23/2025 6:25 AM EDT IONIZED HIOKRAMPdtnbgh22/23/2025 6:25 AM EDT COMPREHENSIVE METABOLIC VNSKSMoejshq83/23/2025 6:25 AM EDT BEDSIDE EKLOLGCRikerwx28/22/2025 8:57 PM EDT BEDSIDE LHRXGBAGuggkqy53/22/2025 5:17 PM EDT BEDSIDE ZDLPSRKOrketeo76/22/2025 12:51 PM EDT VASC RENAL ARTERY DUPLEX GNPMWXKVLijaxdf90/22/2025 12:20 PM EDT BEDSIDE XCQNBJKRbvznmq51/22/2025 8:14 AM EDT CBC WITH AUTO CTDOMXYRHNYMYcyaevt07/22/2025 5:58 AM EDT GZDBEAXBHQLrxivbp60/22/2025 5:58 AM EDT XQFDLXBCMHtuktkp31/22/2025 5:58 AM EDT IONIZED KZNSPUYQowscsh16/22/2025 5:58 AM EDT COMPREHENSIVE METABOLIC XATOHRmrvhsk41/22/2025 5:58 AM EDT BEDSIDE WCLZEECQzuhpqk60/21/2025 9:49 PM EDT BEDSIDE JLZWZROJyfhcqf89/21/2025 5:14 PM EDT BEDSIDE MHHYUVTMdeyqrb00/21/2025 10:57 AM EDT FL SWALLOW MOTILITY QMXVFNNOCjfvwzf05/21/2025 10:10 AM EDT BEDSIDE AOOESOMAeymqbx94/21/2025 9:09 AM EDT BEDSIDE UZIWPMPJbsrlgi79/21/2025 6:27 AM EDT XR ABD NG TUBE PLACEMENT 1 YABQFimdbtd10/21/2025 4:43 AM EDT CBC WITH AUTO PUGQUVIKOSCGKchhpgd56/21/2025 4:24 AM EDT IPZFNXLERLHzzuohh55/21/2025 4:24 AM EDT B-TYPE NATRIURETIC SCHLLVGPodtrii62/21/2025 4:24 AM EDT UWTKOVMLEVcaccui18/21/2025 4:24 AM EDT IONIZED JFEUCAAKcuelny26/21/2025 4:24 AM EDT COMPREHENSIVE METABOLIC GOUNOSpgqjoa28/21/2025 4:24 AM EDT BEDSIDE DEPAXONMzygkmu52/21/2025 4:18 AM EDT BEDSIDE NXYZBIBGdlikmq68/20/2025 11:29 PM EDT BEDSIDE ZLBLBYZMapblbt15/20/2025 7:38 PM EDT BEDSIDE IPZRJKWUjpguqa83/20/2025 3:14 PM EDT IONIZED MWIVDICPNUrsanug96/20/2025 1:10 PM EDT BEDSIDE OTPCNYPHnrumga76/20/2025 12:26 PM EDT CLINICAL PATHOLOGY ODBARXBswsosr80/20/2025 11:31 AM EDT BEDSIDE EPEHUAKCwiccvs32/20/2025 8:[address] BRAIN WO CGUBLrjvzza69/20/2025 6:40 AM EDT XR CHEST 1 QAJuctwrf52/20/2025 3:47 AM EDT CBC WITH AUTO LRRHCKWGKSOSEnqiqhd96/20/2025 3:05 AM EDT ZPEVSBUBGIJpkwelh41/20/2025 3:05 AM EDT B-TYPE NATRIURETIC XZUICZTAylibli42/20/2025 3:05 AM EDT MYAZTQLKIHiphhqh74/20/2025 3:05 AM EDT IONIZED KISTPMWKruvohn19/20/2025 3:05 AM EDT COMPREHENSIVE METABOLIC PFUBLDkeworw35/20/2025 3:05 AM EDT TROP I, HIGH SENSITIVITY 1 YZIHRPPF86/19/2025 3:33 AM EDT TROPONIN I, HIGH SENSITIVITY 0 ILLZKPQH23/19/2025 2:52 AM EDT TROPONIN I, HIGH SENSITIVITY 0 YJDZVLSJ53/19/2025 2:52 AM EDT CBC WITH AUTO FVLIKCLLCBBUVbzfhcu99/19/2025 2:52 AM EDT SBYJFVHRRIHrrhxzz71/19/2025 2:52 AM EDT B-TYPE NATRIURETIC UQUSDEIUeexzje89/19/2025 2:52 AM EDT XTHKLDCUCVuadpsf10/19/2025 2:52 AM EDT IONIZED TCOMQVODnqufuv58/19/2025 2:52 AM EDT COMPREHENSIVE METABOLIC SCHXYPbpilxc13/19/2025 2:52 AM EDT ECG 12-VEVYFywxeuf57/19/2025 1:28 AM EDT XR CHEST 1 YCHndtgou00/18/2025 11:46 AM EDT XR ABD NG TUBE PLACEMENT 1 KCKTWpxslzi45/18/2025 4:52 AM EDT CBC WITH AUTO NQHWPPRLJBDMVdsjvgc42/18/2025 3:16 AM EDT COMPREHENSIVE METABOLIC IEXCGFjoyxac53/18/2025 3:16 AM EDT VASC VENOUS DUPLEX LOWER ZNWTYBQRVHaqvbrp50/17/2025 5:51 PM EDT ECHO COMPLETE W LPHFDGBHAgilhon20/17/2025 2:02 PM EDT XR ABD NG TUBE PLACEMENT 1 QVHRPNRW30/17/2025 12:44 PM EDT CBC WITH AUTO SOOCMYPVEIPMEpxmklo88/17/2025 2:49 AM EDT CK KTLHSQlgalzi74/17/2025 2:49 AM EDT COMPREHENSIVE METABOLIC HIBBOPuullgg38/17/2025 2:49 AM EDT XR ABD NG TUBE PLACEMENT 1 ZWCZEJQD48/17/2025 2:38 AM EDT PIIFBIGGGTVqgyfow21/16/2025 10:47 PM EDT EXTRA TUBES PST XITPbxyyld65/16/2025 8:02 PM EDT EXTRA ZDOLMMtfpekw98/16/2025 8:02 PM EDT DILUTE SAMIA'S VIPER VENOM XNEXMORHREEMUlroiun30/16/2025 8:00 PM EDT CYTOPLASMIC NEUTROPHILIC AB (ANCA), CZxodije48/16/2025 8:00 PM EDT ANTI CARDIOLIPIN AB IGG IGA UAJDssbnjm06/16/2025 8:00 PM EDT GLOMERULAR BASEMENT MEMBRANE IGG CCOvpzhgn24/16/2025 8:00 PM EDT COMPLEMENT PROFILE (C3 AND C4)Cblvmxr7006/07/2025 8:00 PM EDT HEMOGLOBIN AND HEMATOCRIT, BLOODAdd-On06/07/2025 8:00 PM EDT HEPATITIS PANEL, BLKSMJyqnecd26/16/2025 8:00 PM EDT OUZBBUqcxvip46/16/2025 8:00 PM EDT IMMUNOELECTROPHORESIS FOR THERAPY TYKESLFGKNGqfdngl35/16/2025 8:00 PM EDT PROTEIN ELECTROPHORESIS, GKMHULimrffd60/16/2025 8:00 PM EDT HEMOGLOBIN L2DZyggqrr29/16/2025 8:00 PM EDT US RETROPERITONEAL COMPLETE WITH FFPYAEFyipywm32/16/2025 7:22 PM EDT PROTEIN CREAT PVTWILdftgsf45/16/2025 4:21 PM EDT URINE CREATININE,VMCIPJWvlovlt58/16/2025 4:21 PM EDT MICROALBUMIN / CREATININE URINE XMVIXRfqhqmi90/16/2025 4:21 PM EDT SODIUM, URINE, KSHENJDixqwnu52/16/2025 4:21 PM EDT FQLKLPTJHQPhjpavz24/16/2025 4:21 PM EDT XR ABD NG TUBE PLACEMENT 1 MFDARQWI22/16/2025 2:28 PM EDT LEVETIRACETAM, TVnxzumx45/16/2025 12:27 PM EDT HIV 1&2 AB/AG SCREEN (P24 AG)Add-On06/07/2025 12:27 PM EDT IRON AND TIBCAdd-On06/07/2025 12:27 PM EDT DOUBLE STRANDED DNA ABAdd-On06/07/2025 12:27 PM EDT BETA-2 GLYCOPROTEIN ANTIBODIESAdd-On06/07/2025 12:27 PM EDT RHEUMATOID FACTORAdd-On06/07/2025 12:27 PM EDT LUIZA SCREEN W/ REFLEXAdd-On06/07/2025 12:27 PM EDT MIYHXUYIEIvxgzrk40/16/2025 12:27 PM EDT FOLATEAdd-On06/07/2025 12:27 PM EDT FERRITINAdd-On06/07/2025 12:27 PM EDT VITAMIN U89Fev-Oe37/16/2025 12:27 PM EDT RESP PATHOGENS PANEL/APRG-MNE-8Itlwzqk73/16/2025 11:11 AM EDT XR CHEST 1 WSCpdtqhg02/16/2025 9:54 AM EDT CBC WITH AUTO RYRYBANNAVUPVoggwza99/16/2025 4:07 AM EDT B-TYPE NATRIURETIC PEPTIDEAdd-On06/07/2025 4:07 AM EDT COMPREHENSIVE METABOLIC MHKFMRsvweyr37/16/2025 4:07 AM EDT MR BRAIN W WO YJKDBZLE38/15/2025 11:53 PM EDT XR ABD NG TUBE PLACEMENT 1 HEIVCBJW89/15/2025 11:33 AM EDT EEG VIDEO WGPTBLHHWLFminsuv86/15/2025 10:38 AM EDT CBC WITH AUTO MTNOSFEVOPBJCdhlmea86/15/2025 6:52 AM EDT COMPREHENSIVE METABOLIC VSMUIVphjtwk84/15/2025 6:52 AM EDT EEG VIDEO VAVEUPEEIVFfolmbz82/15/2025 6:00 AM EDT BEDSIDE GJZDPDQKregwjv56/14/2025 3:52 PM EDT ATBHFJFVFDzdplrs95/14/2025 2:45 PM EDT BEDSIDE CXXMQYYGotrgbh61/14/2025 11:58 AM EDT BEDSIDE OBHLMDSOxliuuz66/14/2025 8:[address] BRAIN WO UFHBCFHD99/14/2025 7:42 AM EDT EEG VIDEO DAEKQJUTSPSkdzevb73/14/2025 6:00 AM EDT JAHLgkqzwp50/14/2025 4:24 AM EDT CBC WITH AUTO SVWDWSELLINHQljzlzr68/14/2025 3:10 AM EDT LIPID MRBCGJOAlsxmnm21/14/2025 3:10 AM EDT COMPREHENSIVE METABOLIC HSDFZDbniegk40/14/2025 3:[address] BRAIN WO VCXFSkgflsg23/14/2025 1:57 AM EDT BEDSIDE WIOKDPXJrfylfe48/13/2025 9:35 PM EDT CBC WITH AUTO USGFGUIGUAIUGUHV66/13/2025 7:58 PM EDT TYPE AND IUAWKMBZXS54/13/2025 7:58 PM EDT COMPREHENSIVE METABOLIC OYZUJWQVK26/13/2025 7:58 PM EDT BEDSIDE QTDERPISrrxxww49/13/2025 7:54 PM EDT REPEATED BQKWDJxxrvag60/13/2025 6:00 PM EDT CRUZ TOP ON TOFJJKZ9806/04/2025 6:00 PM EDT LAVENDER OMERPTW4106/04/2025 6:00 PM EDT PST HWZENIO3106/04/2025 6:00 PM EDT BLUE XIWHDBE2306/04/2025 6:00 PM EDT RAINBOW LMZNGILD27/13/2025 6:00 PM EDT HEMOGLOBIN L8WUux-Ct20/13/2025 6:00 PM EDT documented in this encounter Results * (ABNORMAL) Bedside Glucose *Place/Obtain serum glucose if >500 per glucometer. (06/22/2025 4:05 PM EDT)ComponentValueRef RangeTest MethodAnalysis Time Performed AtPathologist SignatureBedside Glucose (POC)143(H)65 - 99 mg/dL 06/22/2025 4:10 PM [facility]TT[facility] LABORATORYSpecimen (Source)Anatomical Location / LateralityCollection Method / VolumeCollection TimeReceived Time arterial/cvvwsiaze28/31/2025 4:05 PM EDT1 4:10 PM EDT Narrative Authorizing ProviderResult TypeResult StatusEhad Monika MDPOINT OF CARE TEST ORDERABLESFinal ResultPerforming OrganizationAddJefferson [facility]/ZIP CodePhone Number [facility] [address] [place] [address], [place] * (ABNORMAL) Bedside Glucose *Place/Obtain serum glucose if >500 per glucometer. (06/22/2025 11:32AM EDT)ComponentValueRef RangeTest MethodAnalysis Time Performed AtPathologist SignatureBedside Glucose (POC)215(H)65 - 99 mg/dL 06/22/2025 11:42 AM [facility] LABORATORYSpecimen (Source)Anatomical Location / LateralityCollection Method / VolumeCollection TimeReceived Time arterial/rirgdoxvm75/31/2025 11:32 AM EDT1 11:42 AM EDT Narrative Authorizing ProviderResult TypeResult StatusEhad Monika MDPOINT OF CARE TEST ORDERABLESFinal ResultPerforming OrganizationAddEagleville Hospitalty/State/[facility] CodePhone [facility] LABORATORY [address] [place] [address], [place] * (ABNORMAL) Bedside Glucose *Place/Obtain serum glucose if >500 per glucometer. (06/22/2025 8:29 AM EDT)ComponentValueRef RangeTest MethodAnalysis Time Performed AtPathologist SignatureBedside Glucose (POC)165(H)65 - 99 mg/dL 06/22/2025 11:32 AM [facility] LABORATORYSpecimen (Source)Anatomical Location / LateralityCollection Method / VolumeCollection TimeReceived Time arterial//31/2025 8:29 AM EDT1 11:32 AM EDT Narrative Authorizing ProviderResult TypeResult StatusEhad Monika MDPOINT OF CARE TEST ORDERABLESFinal ResultPerforming OrganizationAddJeff[facility] CodePhone Number [facility] [address] [place] [address], [place] * Ionized calcium (06/22/2025 8:00 AM EDT)ComponentValueRef RangeTest Method Analysis TimePerformed AtPathologist SignatureIONIZED CALCIUM - ICAN5.14.5 - 5.3 mg/dL06/22/2025 9:17 AM [facility] LABORATORYSpecimen (Source)Anatomical Location / LateralityCollection Method / VolumeCollection TimeReceived TimeBloodVenous blood / UnknownVenipuncture / Sexwcwz8506/22/2025 8:00 AM EDT1 9:09 AM EDT Narrative Authorizing ProviderResult TypeResult StatusRamy Luciana BARNES BLOOD ORDERABLES Final ResultPerforming OrganizationAddressCity/State/ZIP CodePhone Number [facility] [address] [place] [address] [address] [place] [address], * Phosphorus (06/22/2025 8:00 AM EDT)ComponentValueRef RangeTest MethodAnalysis TimePerformed AtPathologist SignaturePHOSPHORUS4.62.4 - 4.9 mg/dL06/22/2025 9:36 AM [facility] LABORATORYSpecimen (Source)Anatomical Location / LateralityCollection Method / VolumeCollection TimeReceived Time BloodVenous blood / UnknownVenipuncture / Svgfjkm9906/22/2025 8:00 AM EDT 06/22/2025 9:07 AM EDT Narrative Authorizing ProviderResult TypeResult StatusRamy Luciana BARNES BLOOD ORDERABLES Final ResultPerforming OrganizationAddressCity/State/ZIP CodePhone Number [facility] [place] [address], * Magnesium (06/22/2025 8:00 AM EDT)ComponentValueRef RangeTest MethodAnalysis TimePerformed AtPathologist SignatureMAGNESIUM2.31.8 - 2.6 mg/dL06/22/2025 9:36 AM [facility] LABORATORYSpecimen (Source)Anatomical Location / LateralityCollection Method / VolumeCollection TimeReceived Time BloodVenous blood / UnknownVenipuncture / Yskcxbj0106/22/2025 8:00 AM EDT 06/22/2025 9:07 AM EDT Narrative Authorizing ProviderResult TypeResult StatusRamy Luciana Plasencia MDLAB BLOOD ORDERABLES Final ResultPerforming OrganizationAddressCity/State/ZIP CodePhone Number [facility] [address] [place] [address], * CBC auto differential (06/22/2025 8:00 AM EDT)ComponentValueRef RangeTest MethodAnalysis TimePerformed AtPathologist SignatureWBC5.64 - 11 x10E9/L 06/22/2025 9:23 AM [facility] LABORATORYRBC Count4.324.1 - 5.7 X10E12/L1 9:23 AM [facility] Fqznnfucjf24.613 - 17 g/dL06/22/2025 9:23 AM [facility] ZBXKSSIWJTErudvdfcai82.139 - 50 %06/22/2025 9:23 AM [facility] VSIDMWMEZPYRZ0720 - 100 fL06/22/2025 9:23 AM [facility] ARTKCHLZGKLZJ14.527 - 34 pg06/22/2025 9:23 AM [facility] KGEXIFQXFDPLZJ21.032 - 36 g/dL06/22/2025 9:23 AM [facility] XXAPAMVBIAMLC12.211.5 - 15 %06/22/2025 9:23 AM [facility] LABORATORYPlatelet [id number] - 450 X10E9/L1 9:23 AM EDT [facility]ORYMPV8.77 - 12 fL06/22/2025 9:23 AM [facility] LABORATORYNeutrophils %58.9%06/22/2025 9:23 AM [facility] LABORATORYLymphocytes %24.8%06/22/2025 9:23 AM [facility] LABORATORYMonocytes %10.5%06/22/2025 9:23 AM [facility] LABORATORYEosinophils %4.8%06/22/2025 9:23 AM [facility] LABORATORYBasophils %1.0%06/22/2025 9:23 AM [facility] LABORATORYNeutrophils Absolute (A)3.31.5 - 6.6 10*3/uL 06/22/2025 9:23 AM [facility] LABORATORYLymphocytes Absolute 1.41.0 - 3.5 10*3/uL06/22/2025 9:23 AM [facility] Monocytes Absolute0.60.0 - 0.9 10*3/uL06/22/2025 9:23 AM [facility] LABORATORYEosinophils Absolute0.30.0 - 0.4 10*3/uL06/22/2025 9:23 AM [facility] LABORATORYBasophils Absolute0.10.0 - 0.2 10*3/uL 06/22/2025 9:23 AM [facility] LABORATORYDifferential Type AUTOMATED KHUELPAHTZGR52/31/2025 9:23 AM [facility] LABORATORYSpecimen (Source)Anatomical Location / LateralityCollection Method / VolumeCollection TimeReceived TimeBloodVenous blood / UnknownVenipuncture / Aodblrm3906/22/2025 8:00 AM EDT1 9:07 AM EDT Narrative Authorizing ProviderResult TypeResult StatusFahpipe BARNES BLOOD ORDERABLES Final ResultPerforming OrganizationAddressCity/State/ZIP CodePhone Number [facility] [address] [place] [address], * (ABNORMAL) Comprehensive metabolic panel (06/22/2025 8:00 AM EDT)Component ValueRef RangeTest MethodAnalysis TimePerformed AtPathologist SignatureSODIUM 150(H)134 - 146 mmol/L1 9:36 AM [facility] LABORATORYPOTASSIUM4.63.5 - 5.0 mmol/L1 9:36 AM [facility] YJROLCAXHPXLBAVVWW459(H)98 - 109 mmol/L1 9:36 AM [facility] LABORATORYCARBON ROOFBZH5687 - 32 mmol/L1 9:36 AM [facility] LABORATORYANION BLL579 - 15 mmol/L1 9:36 AM [facility] LABORATORYBLOOD UREA ZMHCPMOE55(H)5 - 27 mg/dL 06/22/2025 9:36 AM [facility] LABORATORYCREATININE1.75(H)0.60 - 1.30 mg/dL06/22/2025 9:36 AM [facility] LABORATORYComment: METHOD TRACEABLE TO IDKS IOCBYFMBRBQMLIB424(H)65 - 99 mg/dL06/22/2025 9:36 AM [facility] LABORATORYCALCIUM9.98.5 - 10.5 mg/dL06/22/2025 9:36 AM [facility] LABORATORYTOTAL PROTEIN7.26.0 - 8.0 g/dL 06/22/2025 9:36 AM [facility] LABORATORYALBUMIN3.73.2 - 5.3 g/dL06/22/2025 9:36 AM [facility] LABORATORYALKALINE XVEMFTWEZPS3937 - 130 U/L1 9:36 AM [facility] VBOCLGCSNDTFU94<=41 U/L1 9:36 AM [facility] BJMDFPUJKWEFU62<=40 U/L1 9:36 AM [facility] LABORATORYBILIRUBIN,TOTAL0.40.3 - 1.2 mg/dL06/22/2025 9:36 AM [facility] LABORATORYEGFR Non-Race Lbondsaks08(L)>=60 ml/min/1.73sq.m 06/22/2025 9:36 AM [facility] LABORATORYComment: Reported eGFR is based on the CKD-EPI 2020 equation that does not use a race coefficient. Specimen (Source)Anatomical Location / LateralityCollection Method / Volume Collection TimeReceived TimeBloodVenous blood / UnknownVenipuncture / Unknown 06/22/2025 8:00 AM EDT1 9:07 AM EDT Narrative Authorizing ProviderResult TypeResult StatusFahpipe BARNES BLOOD ORDERABLES Final ResultPerforming OrganizationAddressCity/State/ZIP CodePhone Number [facility] [address] [place] [address], [place] [phone] * (ABNORMAL) Bedside Glucose *Place/Obtain serum glucose if >500 per glucometer. (06/21/2025 9:22 PM EDT)ComponentValueRef RangeTest MethodAnalysis Time Performed AtPathologist SignatureBedside Glucose (POC)177(H)65 - 99 mg/dL 06/21/2025 9:35 PM [facility] LABORATORYSpecimen (Source)Anatomical Location / LateralityCollection Method / VolumeCollection TimeReceived Time arterial/djwdbyqcl05/30/2025 9:22 PM EDT1 9:35 PM EDT Narrative Authorizing ProviderResult TypeResult StatusEhad Monika MDPOINT OF CARE TEST ORDERABLESFinal ResultPerforming OrganizationAddressCity/State/ZIP CodePhone Number [facility] [address] [place] [address], [place] * (ABNORMAL) Bedside Glucose *Place/Obtain serum glucose if >500 per glucometer. (06/21/2025 4:56 PM EDT)ComponentValueRef RangeTest MethodAnalysis Time Performed AtPathologist SignatureBedside Glucose (POC)240(H)65 - 99 mg/dL 06/21/2025 5:02 PM [facility] LABORATORYSpecimen (Source)Anatomical Location / LateralityCollection Method / VolumeCollection TimeReceived Time arterial/yiacesjhm59/30/2025 4:56 PM EDT1 5:01 PM EDT Narrative Authorizing ProviderResult TypeResult StatusEhad Monika MDPOINT OF CARE TEST ORDERABLESFinal ResultPerforming OrganizationAddressCity/State/ZIP CodePhone Number [facility] [address] [place] [address], [place] * CT brain without contrast (06/21/2025 2:07 PM EDT)Anatomical RegionLaterality ModalityNeuro, Head, Head and Neck, Neuro CoveraN/AComputed TomographySpecimen (Source)Anatomical Location / LateralityCollection Method / VolumeCollection TimeReceived Time06/21/2025 2:20 PM EDT Narrative 06/21/2025 2:[address] BRAIN WO CONT HISTORY: Lethargy COMPARISON: CT head 06/11/2025, 06/05/2025, MR brain 06/06/2025 TECHNIQUE: CT brain obtained without intravenous contrast. ??Automated exposure control was utilized. ??All CT scans at this facility use dose modulation, iterative reconstruction, and/or weight based dosing when appropriate to reduce radiation dose to as low as reasonably achievable. FINDINGS: Expected evolution sizable right thalamic parenchymal hematoma, decreased in size and attenuation, now approximately 2.3 cm. Intraventricular blood products are conspicuous a hyperdense, overall volume is slightly reduced with respect to 06/11/2025. No new site of intracranial hemorrhage. No ventricular outflow obstruction. Sequelae multiple ischemic events within the basal ganglia, some of which are decidedly nonacute, others which are more recent [such as right lateral lenticulostriate supervision, 1.5 cm [series 3 3 image #34]. No territorial region of diminished velazquez-white differentiation. Moderate heterogeneity throughout the white matter. Fluid left greater than right mastoids. Unremarkable visualized suprahyoid neck. CSF engorged opticnerve sheaths. Unremarkable scalp soft tissues. No depressed or calvarial fracture. IMPRESSION: 1. ??Evolving hematoma of the right thalamus, volume of intraventricular blood proximal appears slightly reduced. However, there is persistent hyperdensity, which is somewhat unusual for overall timecourse, slow ongoing bleed is possible, however appearance may also relate to coalescence of prior blood products. No evidence of hydrocephalus or new or enlarging intraparenchymal hemorrhage. 2. 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 Sequelae other nonacute ischemic events. Approved by Med Vidal, DO ??on 06/21/2025 2:20 PM Stiven Wyman MD have personally reviewed the image(s) and agree with and/or edited the report Finalized by Stiven Vu MD on 06/21/2025 2:55 PM Procedure Note Stiven Vu MD - 06/21/2025 CT BRAIN WO CONT HISTORY: Lethargy COMPARISON: CT head 06/11/2025, 06/05/2025, MR brain 06/06/2025 TECHNIQUE: CT brain obtained without intravenous contrast. Automatedexposure control was utilized. All CT scans at this facility use dosemodulation, iterative reconstruction, and/or weight based dosing whenappropriate to reduce radiation dose to as low as reasonably achievable. FINDINGS: Expected evolution sizable right thalamic parenchymal hematoma, decreasedin size and attenuation, now approximately 2.3 cm. Intraventricular bloodproducts are conspicuous a hyperdense, overall volume is slightly reducedwith respect to 06/11/2025. No new site of intracranial hemorrhage. No ventricular outflowobstruction. Sequelae multiple ischemic events within the basal ganglia, some of whichare decidedly nonacute, others which are more recent [such as rightlateral lenticulostriate supervision, 1.5 cm [series 3 3 image #34]. Noterritorial region of diminished velazquez-white differentiation. Moderate heterogeneity throughout the white matter. Fluid left greater than right mastoids. Unremarkable visualized suprahyoidneck. CSF engorged optic nerve sheaths. Unremarkable scalp soft tissues.No depressed or calvarial fracture. IMPRESSION: 1. Evolving hematoma of the right thalamus, volume of intraventricularblood proximal appears slightly reduced. However, there is persistenthyperdensity, which is somewhat unusual for overall time course, slowongoing bleed is possible, however appearance may also relate tocoalescence of prior blood products. No evidence of hydrocephalus or new or enlargingintraparenchymal hemorrhage. 2. 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 Approved by Med Vidal DO on 06/21/2025 2:20 PM IStiven MD have personally reviewed the image(s) and agreewith and/or edited the report Finalized by Stiven Vu MD on 06/21/2025 2:55 PM Authorizing ProviderResult TypeResult StatusAhmed A Adolph Theportia MDIMG CT ORDERABLES Final Result * Vas venous duplex lwr bilateral (06/21/2025 1:26 PM EDT)Anatomical Region LateralityModalityVascularBilateralUltrasoundSpecimen (Source)Anatomical Location / LateralityCollection Method / VolumeCollection TimeReceived Time 06/21/2025 1:29 PM EDT Narrative 06/21/2025 2:00 PM EDT Right: Limited visualization of veins in the thigh and calf due to excessive patient movement. Lower extremity deep veins are compressible with spontaneous phasic spectral Doppler waveforms; superficial small saphenous vein is compressible without intraluminal content. Non-visualized, absent or surgically harvested Great saphenous superficial vein in the thigh and calf. Left: Limited visualization of veins in the thigh and calf due to excessive patient movement. Lowerextremity deep veins are compressible with spontaneous phasic spectral Doppler waveforms; superficial small saphenous vein is compressible without intraluminal content. Non-visualized, absent or surgically harvested Great saphenous superficial vein in the thigh and calf. Conclusions: BILATERAL: ??NO EVIDENCE of deep or superficial vein thrombosis of the lower extremities with limited visualization of lower extremity vein segments as described above. The great saphenous vein is not visualized or surgically absent. ? Recommendations: Any questions prior to finalization, please call the reading physician during normal business hours at the phone number beside their name. Procedure Note Ed Perez MD - 06/21/2025 Right: Limited visualization of veins in the thigh and calf due toexcessive patient movement. Lower extremity deep veins are compressiblewith spontaneous phasic spectral Doppler waveforms; superficial smallsaphenous vein is compressible without intraluminal content. Non-visualized, absent or surgically harvested Great saphenous superficial vein in the thigh and calf. Left: Limited visualization of veins in the thigh and calf due toexcessive patient movement. Lower extremity deep veins are compressiblewith spontaneous phasic spectral Doppler waveforms; superficial smallsaphenous vein is compressible without intraluminal content. Non-visualized, absent or surgically harvested Great saphenous superficial vein in the thigh and calf. Conclusions: BILATERAL: NO EVIDENCE of deep or superficial veinthrombosis of the lower extremities with limited visualization of lowerextremity vein segments as described above. The great saphenous vein isnot visualized or surgically absent. Recommendations: Any questions prior to finalization, please call thereading physician during normal business hours at the phone number besidetheir name. Authorizing ProviderResult TypeResult StatusFahham [facility] VASCULAR ORDERABLESFinal Result * (ABNORMAL) Bedside Glucose *Place/Obtain serum glucose if >500 per glucometer. (06/21/2025 11:54AM EDT)ComponentValueRef RangeTest MethodAnalysis Time Performed AtPathologist SignatureBedside Glucose (POC)148(H)65 - 99 mg/dL 06/21/2025 11:55 AM [facility] LABORATORYSpecimen (Source)Anatomical Location / LateralityCollection Method / VolumeCollection TimeReceived Time arterial/lavxbeudt80/30/2025 11:54 AM EDT1 11:55 AM EDT Narrative Authorizing ProviderResult TypeResult StatusEhad Monika MDPOINT OF CARE TEST ORDERABLESFinal ResultPerforming OrganizationAddressK[facility]/ZIP CodePhone Number [facility] [address] [place] [address], * (ABNORMAL) Bedside Glucose *Place/Obtain serum glucose if >500 per glucometer. (06/21/2025 7:44 AM EDT)ComponentValueRef RangeTest MethodAnalysis Time Performed AtPathologist SignatureBedside Glucose (POC)145(H)65 - 99 mg/dL 06/21/2025 7:45 AM [facility] LABORATORYSpecimen (Source)Anatomical Location / LateralityCollection Method / VolumeCollection TimeReceived Time arterial/sstlynfqq21/30/2025 7:44 AM EDT1 7:45 AM EDT Narrative Authorizing ProviderResult TypeResult StatusEhad Monika MDPOINT OF CARE TEST ORDERABLESFinal ResultPerforming OrganizationAddJefferson [facility] CodePhone [facility]AT[facility] [address] [place] [address], [place] * Ionized calcium (06/21/2025 6:10 AM EDT)ComponentValueRef RangeTest Method Analysis TimePerformed AtPathologist SignatureIONIZED CALCIUM - ICAN5.24.5 - 5.3 mg/dL06/21/2025 6:25 AM [facility] LABORATORYSpecimen (Source)Anatomical Location / LateralityCollection Method / VolumeCollection TimeReceived TimeBloodVenous blood / UnknownVenipuncture / Pyzqasz4006/21/2025 6:10 AM EDT1 6:19 AM EDT Narrative Authorizing ProviderResult TypeResult StatusAdan BARNES BLOOD ORDERABLES Final ResultPerforming OrganizationAddJefferson [facility]/State/ZIP CodePhone Number [facility] [address] [place] [address], * Phosphorus (06/21/2025 6:10 AM EDT)ComponentValueRef RangeTest MethodAnalysis TimePerformed AtPathologist SignaturePHOSPHORUS4.72.4 - 4.9 mg/dL06/21/2025 6:50 AM [facility] LABORATORYSpecimen (Source)Anatomical Location / LateralityCollection Method / VolumeCollection TimeReceived Time BloodVenous blood / UnknownVenipuncture / Bdcbnlx8006/21/2025 6:10 AM EDT 06/21/2025 6:20 AM EDT Narrative Authorizing ProviderResult TypeResult StatusRamy Luicana BARNES BLOOD ORDERABLES Final ResultPerforming OrganizationAddressCity/State/ZIP CodePhone Number [facility] [address] [place] [address], * Magnesium (06/21/2025 6:10 AM EDT)ComponentValueRef RangeTest MethodAnalysis TimePerformed AtPathologist SignatureMAGNESIUM2.31.8 - 2.6 mg/dL06/21/2025 6:50 AM [facility] LABORATORYSpecimen (Source)Anatomical Location / LateralityCollection Method / VolumeCollection TimeReceived Time BloodVenous blood / UnknownVenipuncture / Hcnuosj8206/21/2025 6:10 AM EDT 06/21/2025 6:20 AM EDT Narrative Authorizing ProviderResult TypeResult StatusRamy Luciana BARNES BLOOD ORDERABLES Final ResultPerforming OrganizationAddressCity/State/ZIP CodePhone Number [facility] [address] [place] [address], * (ABNORMAL) CBC auto differential (06/21/2025 6:10 AM EDT)ComponentValueRef RangeTest MethodAnalysis TimePerformed AtPathologist SignatureWBC5.04 - 11 x10E9/L1 6:32 AM [facility] LABORATORYRBC Count4.16 4.1 - 5.7 X10E12/L1 6:32 AM [facility] Iqagowclry21.213 - 17 g/dL06/21/2025 6:32 AM [facility] DEABNGQPXRSviggkehbi86.9(L)39 - 50 %06/21/2025 6:32 AM [facility] PDGKUDZDUKFSM4300 - 100 fL06/21/2025 6:32 AM [facility] KJERHNPPSMXNM63.727 - 34 pg06/21/2025 6:32 AM [facility] KIEBPRTPALRTEX56.932 - 36 g/dL06/21/2025 6:32 AM [facility] CXYZJWSBAUNWB20.211.5 - 15 %06/21/2025 6:32 AM [facility] LABORATORYPlatelet Wjnpd665342 - 450 X10E9/L1 6:32 AM [facility] LABORATORYMPV8.27 - 12 fL06/21/2025 6:32 AM [facility] LABORATORYNeutrophils %55.1%06/21/2025 6:32 AM [facility] LABORATORYLymphocytes %26.7%06/21/2025 6:32 AM [facility] LABORATORYMonocytes %11.8%06/21/2025 6:32 AM [facility] LABORATORYEosinophils %5.7%06/21/2025 6:32 AM [facility] LABORATORYBasophils %0.7%06/21/2025 6:32 AM [facility] LABORATORYNeutrophils Absolute (A)2.71.5 - 6.6 10*3/uL 06/21/2025 6:32 AM [facility] LABORATORYLymphocytes Absolute 1.31.0 - 3.5 10*3/uL06/21/2025 6:32 AM [facility] Monocytes Absolute0.60.0 - 0.9 10*3/uL06/21/2025 6:32 AM [facility] LABORATORYEosinophils Absolute0.30.0 - 0.4 10*3/uL06/21/2025 6:32 AM [facility] LABORATORYBasophils Absolute0.00.0 - 0.2 10*3/uL 06/21/2025 6:32 AM [facility] LABORATORYDifferential Type AUTOMATED GNRJHCJOGUVG66/30/2025 6:32 AM [facility] LABORATORYSpecimen (Source)Anatomical Location / LateralityCollection Method / VolumeCollection TimeReceived TimeBloodVenous blood / UnknownVenipuncture / Kkynrsd0206/21/2025 6:10 AM EDT1 6:20 AM EDT Narrative Authorizing ProviderResult TypeResult StatusFahpipe BARNES BLOOD ORDERABLES Final ResultPerforming OrganizationAddressCity/State/ZIP CodePhone Number [facility] [address] [place] [address], * (ABNORMAL) Comprehensive metabolic panel (06/21/2025 6:10 AM EDT)Component ValueRef RangeTest MethodAnalysis TimePerformed AtPathologist SignatureSODIUM 148(H)134 - 146 mmol/L1 6:50 AM [facility] LABORATORYPOTASSIUM4.83.5 - 5.0 mmol/L1 6:50 AM [facility] MBRRMTJCECGQVHVDXJ050(H)98 - 109 mmol/L1 6:50 AM [facility] LABORATORYCARBON UNKZDVB20(L)22 - 32 mmol/L1 6:50 AM [facility] LABORATORYANION VEJ248 - 15 mmol/L1 6:50 AM [facility] LABORATORYBLOOD UREA JBMQTKFM70(H)5 - 27 mg/dL06/21/2025 6:50 AM [facility] LABORATORYCREATININE1.68 (H)0.60 - 1.30 mg/dL06/21/2025 6:50 AM [facility] Comment:METHOD TRACEABLE TO IDMS SUHPHCDFTUFGLJY290(H)65 - 99 mg/dL06/21/2025 6:50 AM [facility] LABORATORYCALCIUM9.58.5 - 10.5 mg/dL 06/21/2025 6:50 AM [facility] LABORATORYTOTAL PROTEIN7.06.0 - 8.0 g/dL06/21/2025 6:50 AM [facility] LABORATORYALBUMIN3.93.2 - 5.3 g/dL06/21/2025 6:50 AM [facility] LABORATORYALKALINE JACNSEYDRUT6721 - 130 U/L1 6:50 AM [facility] NYLVNBUXFUMSB19<=41 U/L1 6:50 AM [facility] OXILYLGSDTRRB76<=40 U/L1 6:50 AM [facility] LABORATORYBILIRUBIN,TOTAL0.50.3 - 1.2 mg/dL06/21/2025 6:50 AM [facility] LABORATORYEGFR Non-Race Bkfizxqdz17(L)>=60 ml/min/1.73sq.m 06/21/2025 6:50 AM [facility] LABORATORYComment: Reported eGFR is based on the CKD-EPI 2020 equation that does not use a race coefficient. Specimen (Source)Anatomical Location / LateralityCollection Method / Volume Collection TimeReceived TimeBloodVenous blood / UnknownVenipuncture / Unknown 06/21/2025 6:10 AM EDT1 6:20 AM EDT Narrative Authorizing ProviderResult TypeResult StatusFamatthew BARNES BLOOD ORDERABLES Final ResultPerforming OrganizationAddressCity/State/ZIP CodePhone Number [facility] [address] [place] [address], * (ABNORMAL) Bedside Glucose *Place/Obtain serum glucose if >500 per glucometer. (06/20/2025 9:24 PM EDT)ComponentValueRef RangeTest MethodAnalysis Time Performed AtPathologist SignatureBedside Glucose (POC)164(H)65 - 99 mg/dL 06/20/2025 9:30 PM [facility] LABORATORYSpecimen (Source)Anatomical Location / LateralityCollection Method / VolumeCollection TimeReceived Time arterial/vjubuxhxr02/29/2025 9:24 PM EDT1 9:30 PM EDT Narrative Authorizing ProviderResult TypeResult StatusEhad Monika MDPOINT OF CARE TEST ORDERABLESFinal ResultPerforming OrganizationAddressty/State/ZIP CodePhone Number [facility] [address] [place] [address], [place] * Bedside Glucose *Place/Obtain serum glucose if >500 per glucometer. (06/20/2025 3:37 PM EDT)ComponentValueRef RangeTest MethodAnalysis Time Performed AtPathologist SignatureBedside Glucose (POC)9065 - 99 mg/dL 06/20/2025 3:39 PM [facility] LABORATORYSpecimen (Source)Anatomical Location / LateralityCollection Method / VolumeCollection TimeReceived Time arterial//29/2025 3:37 PM EDT1 3:39 PM EDT Narrative Authorizing ProviderResult TypeResult StatusCox South Monika MDPOINT OF CARE TEST ORDERABLESFinal ResultPerforming OrganizationAddressty/State/ZIP CodePhone Number [facility] [address] [place] [address], [place] * (ABNORMAL) Bedside Glucose *Place/Obtain serum glucose if >500 per glucometer. (06/20/2025 11:52AM EDT)ComponentValueRef RangeTest MethodAnalysis Time Performed AtPathologist SignatureBedside Glucose (POC)223(H)65 - 99 mg/dL 06/20/2025 11:53 AM [facility] LABORATORYSpecimen (Source)Anatomical Location / LateralityCollection Method / VolumeCollection TimeReceived Time arterial/upumukbrk44/29/2025 11:52 AM EDT1 11:53 AM EDT Narrative Authorizing ProviderResult TypeResult StatusEhad Monika MDPOINT OF CARE TEST ORDERABLESFinal ResultPerforming OrganizationAddressKettering [facility]/State/ZIP CodePhone Number [facility] [address] [place] [address], [place] * (ABNORMAL) Bedside Glucose *Place/Obtain serum glucose if >500 per glucometer. (06/20/2025 7:21 AM EDT)ComponentValueRef RangeTest MethodAnalysis Time Performed AtPathologist SignatureBedside Glucose (POC)153(H)65 - 99 mg/dL 06/20/2025 7:22 AM [facility] LABORATORYSpecimen (Source)Anatomical Location / LateralityCollection Method / VolumeCollection TimeReceived Time arterial/iatdhxafo55/29/2025 7:21 AM EDT1 7:22 AM EDT Narrative Authorizing ProviderResult TypeResult StatusEhad Monika MDPOINT OF CARE TEST ORDERABLESFinal ResultPerforming OrganizationAddressCity/State/ZIP CodePhone Number [facility] [address] [place] [address], [place] * Ionized calcium (06/20/2025 6:11 AM EDT)ComponentValueRef RangeTest Method Analysis TimePerformed AtPathologist SignatureIONIZED CALCIUM - ICAN5.04.5 - 5.3 mg/dL06/20/2025 7:31 AM [facility] LABORATORYSpecimen (Source)Anatomical Location / LateralityCollection Method / VolumeCollection TimeReceived TimeBloodVenous blood / UnknownVenipuncture / Luyzsyy1306/20/2025 6:11 AM EDT1 6:22 AM EDT Narrative Authorizing ProviderResult TypeResult StatusRamy Luciana BARNES BLOOD ORDERABLES Final ResultPerforming OrganizationAddressCity/State/ZIP CodePhone Number [facility] [address] [place] [address], [place] [phone] * Phosphorus (06/20/2025 6:11 AM EDT)ComponentValueRef RangeTest MethodAnalysis TimePerformed AtPathologist SignaturePHOSPHORUS4.82.4 - 4.9 mg/dL06/20/2025 6:53 AM [facility] LABORATORYSpecimen (Source)Anatomical Location / LateralityCollection Method / VolumeCollection TimeReceived Time BloodVenous blood / UnknownVenipuncture / Vfpngmj0106/20/2025 6:11 AM EDT 06/20/2025 6:21 AM EDT Narrative Authorizing ProviderResult TypeResult StatusRamy Luciana BARNES BLOOD ORDERABLES Final ResultPerforming OrganizationAddressCity/State/ZIP CodePhone Number [facility] [address] [place] [address], * Magnesium (06/20/2025 6:11 AM EDT)ComponentValueRef RangeTest MethodAnalysis TimePerformed AtPathologist SignatureMAGNESIUM2.51.8 - 2.6 mg/dL06/20/2025 6:53 AM [facility] LABORATORYSpecimen (Source)Anatomical Location / LateralityCollection Method / VolumeCollection TimeReceived Time BloodVenous blood / UnknownVenipuncture / Ukhtmco8206/20/2025 6:11 AM EDT 06/20/2025 6:21 AM EDT Narrative Authorizing ProviderResult TypeResult StatusRamy Luciana BARNES BLOOD ORDERABLES Final ResultPerforming OrganizationAddressCity/State/ZIP CodePhone Number [facility] [address] [place] [address], * CBC auto differential (06/20/2025 6:11 AM EDT)ComponentValueRef RangeTest MethodAnalysis TimePerformed AtPathologist SignatureWBC4.64 - 11 x10E9/L 06/20/2025 6:36 AM [facility] LABORATORYRBC Count4.254.1 - 5.7 X10E12/L1 6:36 AM [facility] Sxtfewtmis03.313 - 17 g/dL06/20/2025 6:36 AM [facility] BQOEGBREZUUybymkrasu21.339 - 50 %06/20/2025 6:36 AM [facility] NTBCWWWARCEZZ9466 - 100 fL06/20/2025 6:36 AM [facility] BQNNJDPYNMYHL31.327 - 34 pg06/20/2025 6:36 AM [facility] LRWJLOEYJOIODX77.732 - 36 g/dL06/20/2025 6:36 AM [facility] XQHGXGEOOEBDT55.311.5 - 15 %06/20/2025 6:36 AM [facility] LABORATORYPlatelet Alzkv797582 - 450 X10E9/L1 6:36 AM EDT [facility] LABORATORYMPV8.47 - 12 fL06/20/2025 6:36 AM [facility] LABORATORYNeutrophils %52.7%06/20/2025 6:36 AM [facility] LABORATORYLymphocytes %28.3%06/20/2025 6:36 AM [facility] LABORATORYMonocytes %11.9%06/20/2025 6:36 AM [facility] LABORATORYEosinophils %6.1%06/20/2025 6:36 AM [facility] LABORATORYBasophils %1.0%06/20/2025 6:36 AM [facility] LABORATORYNeutrophils Absolute (A)2.41.5 - 6.6 10*3/uL 06/20/2025 6:36 AM [facility] LABORATORYLymphocytes Absolute 1.31.0 - 3.5 10*3/uL06/20/2025 6:36 AM [facility] Monocytes Absolute0.50.0 - 0.9 10*3/uL06/20/2025 6:36 AM [facility] LABORATORYEosinophils Absolute0.30.0 - 0.4 10*3/uL06/20/2025 6:36 AM [facility] LABORATORYBasophils Absolute0.00.0 - 0.2 10*3/uL 06/20/2025 6:36 AM [facility] LABORATORYDifferential Type AUTOMATED VIFOWGCFIPWN91/29/2025 6:36 AM [facility] LABORATORYSpecimen (Source)Anatomical Location / LateralityCollection Method / VolumeCollection TimeReceived TimeBloodVenous blood / UnknownVenipuncture / Pjlzhsl1306/20/2025 6:11 AM EDT1 6:21 AM EDT Narrative Authorizing ProviderResult TypeResult StatusFahpipe BARNES BLOOD ORDERABLES Final ResultPerforming OrganizationAddressCity/State/ZIP CodePhone Number [facility] [address] [place] [address], * (ABNORMAL) Comprehensive metabolic panel (06/20/2025 6:11 AM EDT)Component ValueRef RangeTest MethodAnalysis TimePerformed AtPathologist SignatureSODIUM 301225 - 146 mmol/L1 6:53 AM [facility] POTASSIUM4.63.5 - 5.0 mmol/L1 6:53 AM [facility] XTZKKTBHQPEHKBNCDW565(H)98 - 109 mmol/L1 6:53 AM [facility] LABORATORYCARBON RMBLORN7419 - 32 mmol/L1 6:53 AM [facility] LABORATORYANION GAP95 - 15 mmol/L1 6:53 AM EDT [facility] LABORATORYBLOOD UREA UMGORSRF00(H)5 - 27 mg/dL 06/20/2025 6:53 AM [facility] LABORATORYCREATININE1.71(H)0.60 - 1.30 mg/dL06/20/2025 6:53 AM [facility] LABORATORYComment: METHOD TRACEABLE TO IDMS LLOQKYPWYXEGLUT948(H)65 - 99 mg/dL06/20/2025 6:53 AM [facility] LABORATORYCALCIUM9.68.5 - 10.5 mg/dL06/20/2025 6:53 AM [facility] LABORATORYTOTAL PROTEIN6.96.0 - 8.0 g/dL 06/20/2025 6:53 AM [facility] LABORATORYALBUMIN3.73.2 - 5.3 g/dL06/20/2025 6:53 AM [facility] LABORATORYALKALINE ZTARFKAWEMZ3412 - 130 U/L1 6:53 AM [facility] JBXJVKYZPJYEV42<=41 U/L1 6:53 AM [facility] CPSRBQGUPEBGR72<=40 U/L1 6:53 AM [facility] LABORATORYBILIRUBIN,TOTAL0.50.3 - 1.2 mg/dL06/20/2025 6:53 AM [facility] LABORATORYEGFR Non-Race Vroxxdryp23(L)>=60 ml/min/1.73sq.m 06/20/2025 6:53 AM [facility] LABORATORYComment: Reported eGFR is based on the CKD-EPI 2020 equation that does not use a race coefficient. Specimen (Source)Anatomical Location / LateralityCollection Method / Volume Collection TimeReceived TimeBloodVenous blood / UnknownVenipuncture / Unknown 06/20/2025 6:11 AM EDT1 6:21 AM EDT Narrative Authorizing ProviderResult TypeResult StatusFamatthew BARNES BLOOD ORDERABLES Final ResultPerforming OrganizationAddressCity/State/ZIP CodePhone Number [facility] [address] [place] [address], [place] [phone] * (ABNORMAL) Bedside Glucose *Place/Obtain serum glucose if >500 per glucometer. (06/19/2025 9:05 PM EDT)ComponentValueRef RangeTest MethodAnalysis Time Performed AtPathologist SignatureBedside Glucose (POC)169(H)65 - 99 mg/dL 06/19/2025 9:11 PM [facility] LABORATORYSpecimen (Source)Anatomical Location / LateralityCollection Method / VolumeCollection TimeReceived Time arterial/fzsuvkfrm40/28/2025 9:05 PM EDT1 9:11 PM EDT Narrative Authorizing ProviderResult TypeResult StatusEhad Monika MDPOINT OF CARE TEST ORDERABLESFinal ResultPerforming OrganizationAddressCity/State/ZIP CodePhone Number [facility] [address] [place] [address], [place] * (ABNORMAL) Bedside Glucose *Place/Obtain serum glucose if >500 per glucometer. (06/19/2025 12:09PM EDT)ComponentValueRef RangeTest MethodAnalysis Time Performed AtPathologist SignatureBedside Glucose (POC)157(H)65 - 99 mg/dL 06/19/2025 4:36 PM [facility] LABORATORYSpecimen (Source)Anatomical Location / LateralityCollection Method / VolumeCollection TimeReceived Time arterial/gybxqcblt55/28/2025 12:09 PM EDT1 4:36 PM EDT Narrative Authorizing ProviderResult TypeResult StatusEhad Monika MDPOINT OF CARE TEST ORDERABLESFinal ResultPerforming OrganizationAddressty/State/ZIP CodePhone Number [facility] [address] [place] [address], * (ABNORMAL) Bedside Glucose *Place/Obtain serum glucose if >500 per glucometer. (06/19/2025 7:19 AM EDT)ComponentValueRef RangeTest MethodAnalysis Time Performed AtPathologist SignatureBedside Glucose (POC)147(H)65 - 99 mg/dL 06/19/2025 7:22 AM [facility] LABORATORYSpecimen (Source)Anatomical Location / LateralityCollection Method / VolumeCollection TimeReceived Time arterial/qivjibcpq52/28/2025 7:19 AM EDT1 7:21 AM EDT Narrative Authorizing ProviderResult TypeResult StatusEhad Monika MDPOINT OF CARE TEST ORDERABLESFinal ResultPerforming OrganizationAddressCity/State/ZIP CodePhone Number [facility] [address] [place] [address], [place] * Ionized calcium (06/19/2025 6:01 AM EDT)ComponentValueRef RangeTest Method Analysis TimePerformed AtPathologist SignatureIONIZED CALCIUM - ICAN5.04.5 - 5.3 mg/dL06/19/2025 6:27 AM [facility] LABORATORYSpecimen (Source)Anatomical Location / LateralityCollection Method / VolumeCollection TimeReceived TimeBloodVenous blood / UnknownVenipuncture / Vgbvgin2006/19/2025 6:01 AM EDT1 6:13 AM EDT Narrative Authorizing ProviderResult TypeResult Cailin BARNES BLOOD ORDERABLES Final ResultPerforming OrganizationAddressCity/State/ZIP CodePhone Number [facility] [address] [place] [address], [place] [phone] * Phosphorus (06/19/2025 6:01 AM EDT)ComponentValueRef RangeTest MethodAnalysis TimePerformed AtPathologist SignaturePHOSPHORUS4.72.4 - 4.9 mg/dL06/19/2025 6:45 AM [facility] LABORATORYSpecimen (Source)Anatomical Location / LateralityCollection Method / VolumeCollection TimeReceived Time BloodVenous blood / UnknownVenipuncture / Udtvyub6606/19/2025 6:01 AM EDT 06/19/2025 6:14 AM EDT Narrative Authorizing ProviderResult TypeResult StatusRamy Luciana BARNES BLOOD ORDERABLES Final ResultPerforming OrganizationAddressCity/State/ZIP CodePhone Number [facility] [address] [place] [address], * (ABNORMAL) Magnesium (06/19/2025 6:01 AM EDT)ComponentValueRef RangeTest MethodAnalysis TimePerformed AtPathologist SignatureMAGNESIUM2.7(H)1.8 - 2.6 mg/dL06/19/2025 6:45 AM [facility] LABORATORYSpecimen (Source)Anatomical Location / LateralityCollection Method / VolumeCollection TimeReceived TimeBloodVenous blood / UnknownVenipuncture / Vzvlibv8406/19/2025 6:01 AM EDT1 6:14 AM EDT Narrative Authorizing ProviderResult TypeResult StatusRamy Luciana BARNES BLOOD ORDERABLES Final ResultPerforming OrganizationAddressCity/State/ZIP CodePhone Number [facility] [address] [place] [address], * CBC auto differential (06/19/2025 6:01 AM EDT)ComponentValueRef RangeTest MethodAnalysis TimePerformed AtPathologist SignatureWBC5.64 - 11 x10E9/L 06/19/2025 6:28 AM [facility] LABORATORYRBC Count4.234.1 - 5.7 X10E12/L1 6:28 AM [facility] Pjfzzufbgz61.413 - 17 g/dL06/19/2025 6:28 AM [facility] KZSPAICAMWHzqgbezlah55.339 - 50 %06/19/2025 6:28 AM [facility] EWFSWHMIRFIFC5706 - 100 fL06/19/2025 6:28 AM [facility] QMPRTFCRHCCVT37.627 - 34 pg06/19/2025 6:28 AM [facility] AHKPLKTQVXKMWZ66.032 - 36 g/dL06/19/2025 6:28 AM [facility] CZVQFPLORYKIF17.411.5 - 15 %06/19/2025 6:28 AM [facility] LABORATORYPlatelet Ktblk562784 - 450 X10E9/L1 6:28 AM [facility] LABORATORYMPV8.47 - 12 fL06/19/2025 6:28 AM [facility] LABORATORYNeutrophils %58.6%06/19/2025 6:28 AM [facility] LABORATORYLymphocytes %25.1%06/19/2025 6:28 AM [facility] LABORATORYMonocytes %10.4%06/19/2025 6:28 AM [facility] LABORATORYEosinophils %5.0%06/19/2025 6:28 AM [facility] LABORATORYBasophils %0.9%06/19/2025 6:28 AM [facility] LABORATORYNeutrophils Absolute (A)3.31.5 - 6.6 10*3/uL 06/19/2025 6:28 AM [facility] LABORATORYLymphocytes Absolute 1.41.0 - 3.5 10*3/uL06/19/2025 6:28 AM [facility] Monocytes Absolute0.60.0 - 0.9 10*3/uL06/19/2025 6:28 AM [facility] LABORATORYEosinophils Absolute0.30.0 - 0.4 10*3/uL06/19/2025 6:28 AM [facility] LABORATORYBasophils Absolute0.10.0 - 0.2 10*3/uL 06/19/2025 6:28 AM [facility] LABORATORYDifferential Type AUTOMATED HNQVRXNFRILG99/28/2025 6:28 AM [facility] LABORATORYSpecimen (Source)Anatomical Location / LateralityCollection Method / VolumeCollection TimeReceived TimeBloodVenous blood / UnknownVenipuncture / Vyivmzm9606/19/2025 6:01 AM EDT1 6:14 AM EDT Narrative Authorizing ProviderResult TypeResult StatusFamatthew BARNES BLOOD ORDERABLES Final ResultPerforming OrganizationAddressCity/State/ZIP CodePhone Number [facility] [address] [place] [address], * (ABNORMAL) Comprehensive metabolic panel (06/19/2025 6:01 AM EDT)Component ValueRef RangeTest MethodAnalysis TimePerformed AtPathologist SignatureSODIUM 955661 - 146 mmol/L1 6:45 AM [facility] POTASSIUM4.73.5 - 5.0 mmol/L1 6:45 AM [facility] OVSKKMGYUFZEAGRYMH212(H)98 - 109 mmol/L1 6:45 AM [facility] LABORATORYCARBON WKZAWFF2850 - 32 mmol/L1 6:45 AM [facility] LABORATORYANION GAP95 - 15 mmol/L1 6:45 AM EDT [facility] LABORATORYBLOOD UREA IQMITDRF85(H)5 - 27 mg/dL 06/19/2025 6:45 AM [facility] LABORATORYCREATININE1.90(H)0.60 - 1.30 mg/dL06/19/2025 6:45 AM [facility] LABORATORYComment: METHOD TRACEABLE TO IDMS CZHDQRUMGHTXZGI555(H)65 - 99 mg/dL06/19/2025 6:45 AM [facility] LABORATORYCALCIUM9.68.5 - 10.5 mg/dL06/19/2025 6:45 AM [facility] LABORATORYTOTAL PROTEIN7.06.0 - 8.0 g/dL 06/19/2025 6:45 AM [facility] LABORATORYALBUMIN3.73.2 - 5.3 g/dL06/19/2025 6:45 AM [facility] LABORATORYALKALINE CYDKLAIUSUF6466 - 130 U/L1 6:45 AM [facility] UJDEEOYPJLLUZ09<=41 U/L1 6:45 AM [facility] KPYYXHCUACRYU74<=40 U/L1 6:45 AM [facility] LABORATORYBILIRUBIN,TOTAL0.50.3 - 1.2 mg/dL06/19/2025 6:45 AM [facility] LABORATORYEGFR Non-Race Ehphbzsub97(L)>=60 ml/min/1.73sq.m 06/19/2025 6:45 AM [facility] LABORATORYComment: Reported eGFR is based on the CKD-EPI 2020 equation that does not use a race coefficient. Specimen (Source)Anatomical Location / LateralityCollection Method / Volume Collection TimeReceived TimeBloodVenous blood / UnknownVenipuncture / Unknown 06/19/2025 6:01 AM EDT1 6:14 AM EDT Narrative Authorizing ProviderResult TypeResult StatusAlphonse BARNES BLOOD ORDERABLES Final ResultPerforming OrganizationAddressCity/State/ZIP CodePhone Number [facility] [address] [place] [address], * (ABNORMAL) Bedside Glucose *Place/Obtain serum glucose if >500 per glucometer. (06/18/2025 9:48 PM EDT)ComponentValueRef RangeTest MethodAnalysis Time Performed AtPathologist SignatureBedside Glucose (POC)109(H)65 - 99 mg/dL 06/18/2025 9:53 PM [facility] LABORATORYSpecimen (Source)Anatomical Location / LateralityCollection Method / VolumeCollection TimeReceived Time arterial/ieolygcie16/27/2025 9:48 PM EDT1 9:53 PM EDT Narrative Authorizing ProviderResult TypeResult StatusEhad Monika MDPOINT OF CARE TEST ORDERABLESFinal ResultPerforming OrganizationAddressty/State/ZIP CodePhone Number [facility] [address] [place] [address], [place] * (ABNORMAL) Bedside Glucose *Place/Obtain serum glucose if >500 per glucometer. (06/18/2025 4:25 PM EDT)ComponentValueRef RangeTest MethodAnalysis Time Performed AtPathologist SignatureBedside Glucose (POC)173(H)65 - 99 mg/dL 06/18/2025 4:27 PM [facility] LABORATORYSpecimen (Source)Anatomical Location / LateralityCollection Method / VolumeCollection TimeReceived Time arterial//27/2025 4:25 PM EDT1 4:27 PM EDT Narrative Authorizing ProviderResult TypeResult StatusEhad Monika MDPOINT OF CARE TEST ORDERABLESFinal ResultPerforming OrganizationAddressty/State/ZIP CodePhone Number [facility] [address] [place] [address], [place] * (ABNORMAL) Bedside Glucose *Place/Obtain serum glucose if >500 per glucometer. (06/18/2025 11:29AM EDT)ComponentValueRef RangeTest MethodAnalysis Time Performed AtPathologist SignatureBedside Glucose (POC)242(H)65 - 99 mg/dL 06/18/2025 11:31 AM [facility] LABORATORYSpecimen (Source)Anatomical Location / LateralityCollection Method / VolumeCollection TimeReceived Time arterial/ghiygikxu51/27/2025 11:29 AM EDT1 11:31 AM EDT Narrative Authorizing ProviderResult TypeResult StatusEhad Monika MDPOINT OF CARE TEST ORDERABLESFinal ResultPerforming OrganizationAddEagle[facility] Hospitalty/State/ZIP CodePhone [facility]ATORY [address] [place] [address], [place] * (ABNORMAL) Bedside Glucose *Place/Obtain serum glucose if >500 per glucometer. (06/18/2025 7:50 AM EDT)ComponentValueRef RangeTest MethodAnalysis Time Performed AtPathologist SignatureBedside Glucose (POC)146(H)65 - 99 mg/dL 06/18/2025 7:52 AM [facility] LABORATORYSpecimen (Source)Anatomical Location / LateralityCollection Method / VolumeCollection TimeReceived Time arterial/xahpsirrb18/27/2025 7:50 AM EDT1 7:52 AM EDT Narrative Authorizing ProviderResult TypeResult StatusEhad Monika MDPOINT OF CARE TEST ORDERABLESFinal ResultPerforming OrganizationAddressCity/State/ZIP CodePhone Number [facility] [address] [place] [address], [place] * Ionized calcium (06/18/2025 5:55 AM EDT)ComponentValueRef RangeTest Method Analysis TimePerformed AtPathologist SignatureIONIZED CALCIUM - ICAN5.04.5 - 5.3 mg/dL06/18/2025 6:32 AM [facility] LABORATORYSpecimen (Source)Anatomical Location / LateralityCollection Method / VolumeCollection TimeReceived TimeBloodVenous blood / UnknownVenipuncture / Howdekz0206/18/2025 5:55 AM EDT1 6:05 AM EDT Narrative Authorizing ProviderResult TypeResult StatusRamy Luciana BARNES BLOOD ORDERABLES Final ResultPerforming OrganizationAddressCity/State/ZIP CodePhone Number [facility] [address] [place] [address], * Phosphorus (06/18/2025 5:55 AM EDT)ComponentValueRef RangeTest MethodAnalysis TimePerformed AtPathologist SignaturePHOSPHORUS4.72.4 - 4.9 mg/dL06/18/2025 6:44 AM [facility] LABORATORYSpecimen (Source)Anatomical Location / LateralityCollection Method / VolumeCollection TimeReceived Time BloodVenous blood / UnknownVenipuncture / Jiobjki5906/18/2025 5:55 AM EDT 06/18/2025 6:06 AM EDT Narrative Authorizing ProviderResult TypeResult StatusRamy Luciana BARNES BLOOD ORDERABLES Final ResultPerforming OrganizationAddressCity/State/ZIP CodePhone Number [facility] [address] [place] [address], * (ABNORMAL) Magnesium (06/18/2025 5:55 AM EDT)ComponentValueRef RangeTest MethodAnalysis TimePerformed AtPathologist SignatureMAGNESIUM2.7(H)1.8 - 2.6 mg/dL06/18/2025 6:44 AM [facility] LABORATORYSpecimen (Source)Anatomical Location / LateralityCollection Method / VolumeCollection TimeReceived TimeBloodVenous blood / UnknownVenipuncture / Cbgyspz0306/18/2025 5:55 AM EDT1 6:06 AM EDT Narrative Authorizing ProviderResult TypeResult StatusRamy Luciana BARNES BLOOD ORDERABLES Final ResultPerforming OrganizationAddressCity/State/ZIP CodePhone Number [facility] [address] [place] [address], * CBC auto differential (06/18/2025 5:55 AM EDT)ComponentValueRef RangeTest MethodAnalysis TimePerformed AtPathologist SignatureWBC5.54 - 11 x10E9/L 06/18/2025 6:18 AM [facility] LABORATORYRBC Count4.284.1 - 5.7 X10E12/L1 6:18 AM [facility] Cehwlaeeuz72.613 - 17 g/dL06/18/2025 6:18 AM [facility] SKWSUVVRZWQjgcouzqkp41.639 - 50 %06/18/2025 6:18 AM [facility] EVRCFVOYTZTDK5866 - 100 fL06/18/2025 6:18 AM [facility] IJHSRQBOWTGKN42.727 - 34 pg06/18/2025 6:18 AM [facility] NMTZTHLUQXDVWB66.332 - 36 g/dL06/18/2025 6:18 AM [facility] QKTJAPRYGRWZQ45.211.5 - 15 %06/18/2025 6:18 AM [facility] LABORATORYPlatelet Ayfln387318 - 450 X10E9/L1 6:18 AM EDT [facility] LABORATORYMPV8.37 - 12 fL06/18/2025 6:18 AM [facility] LABORATORYNeutrophils %55.5%06/18/2025 6:18 AM [facility] LABORATORYLymphocytes %26.2%06/18/2025 6:18 AM [facility] LABORATORYMonocytes %11.5%06/18/2025 6:18 AM [facility] LABORATORYEosinophils %5.6%06/18/2025 6:18 AM [facility] LABORATORYBasophils %1.2%06/18/2025 6:18 AM [facility] LABORATORYNeutrophils Absolute (A)3.11.5 - 6.6 10*3/uL 06/18/2025 6:18 AM [facility] LABORATORYLymphocytes Absolute 1.41.0 - 3.5 10*3/uL06/18/2025 6:18 AM [facility] Monocytes Absolute0.60.0 - 0.9 10*3/uL06/18/2025 6:18 AM [facility] LABORATORYEosinophils Absolute0.30.0 - 0.4 10*3/uL06/18/2025 6:18 AM [facility] LABORATORYBasophils Absolute0.10.0 - 0.2 10*3/uL 06/18/2025 6:18 AM [facility] LABORATORYDifferential Type AUTOMATED QLYTCXOWMZHF52/27/2025 6:18 AM [facility] LABORATORYSpecimen (Source)Anatomical Location / LateralityCollection Method / VolumeCollection TimeReceived TimeBloodVenous blood / UnknownVenipuncture / Rimwpay0406/18/2025 5:55 AM EDT1 6:06 AM EDT Narrative Authorizing ProviderResult TypeResult StatusFahpipe BARNES BLOOD ORDERABLES Final ResultPerforming OrganizationAddressCity/State/ZIP CodePhone Number [facility] [address] [place] [address], * (ABNORMAL) Comprehensive metabolic panel (06/18/2025 5:55 AM EDT)Component ValueRef RangeTest MethodAnalysis TimePerformed AtPathologist SignatureSODIUM 835295 - 146 mmol/L1 6:44 AM [facility] POTASSIUM4.43.5 - 5.0 mmol/L1 6:44 AM [facility] MOVIXNHSUJSNCKRXON772(H)98 - 109 mmol/L1 6:44 AM [facility] LABORATORYCARBON EHADHEF6001 - 32 mmol/L1 6:44 AM [facility] LABORATORYANION NKQ301 - 15 mmol/L1 6:44 AM EDT [facility] LABORATORYBLOOD UREA TRNDPTGO14(H)5 - 27 mg/dL 06/18/2025 6:44 AM [facility] LABORATORYCREATININE2.04(H)0.60 - 1.30 mg/dL06/18/2025 6:44 AM [facility] LABORATORYComment: METHOD TRACEABLE TO IDKS YCGLIKSGWMBTCTU342(H)65 - 99 mg/dL06/18/2025 6:44 AM [facility] LABORATORYCALCIUM9.58.5 - 10.5 mg/dL06/18/2025 6:44 AM [facility] LABORATORYTOTAL PROTEIN7.06.0 - 8.0 g/dL 06/18/2025 6:44 AM [facility] LABORATORYALBUMIN3.83.2 - 5.3 g/dL06/18/2025 6:44 AM [facility] LABORATORYALKALINE VIXTMGAHAUQ8791 - 130 U/L1 6:44 AM [facility] IIBLBIJFKULFQ12<=41 U/L1 6:44 AM [facility] PDCLVPWVGOJII38<=40 U/L1 6:44 AM [facility] LABORATORYBILIRUBIN,TOTAL0.60.3 - 1.2 mg/dL06/18/2025 6:44 AM [facility] LABORATORYEGFR Non-Race Peryvbyvg09(L)>=60 ml/min/1.73sq.m 06/18/2025 6:44 AM [facility] LABORATORYComment: Reported eGFR is based on the CKD-EPI 2020 equation that does not use a race coefficient. Specimen (Source)Anatomical Location / LateralityCollection Method / Volume Collection TimeReceived TimeBloodVenous blood / UnknownVenipuncture / Unknown 06/18/2025 5:55 AM EDT1 6:06 AM EDT Narrative Authorizing ProviderResult TypeResult Janet BARNES BLOOD ORDERABLES Final ResultPerforming OrganizationAddressCity/State/ZIP CodePhone Number [facility] [address] [place] [address], [place] [phone] * (ABNORMAL) Bedside Glucose *Place/Obtain serum glucose if >500 per glucometer. (06/17/2025 9:11 PM EDT)ComponentValueRef RangeTest MethodAnalysis Time Performed AtPathologist SignatureBedside Glucose (POC)166(H)65 - 99 mg/dL 06/17/2025 9:24 PM [facility] LABORATORYSpecimen (Source)Anatomical Location / LateralityCollection Method / VolumeCollection TimeReceived Time arterial/eytbbsbll45/26/2025 9:11 PM EDT1 9:24 PM EDT Narrative Authorizing ProviderResult TypeResult StatusEhad Monika MDPOINT OF CARE TEST ORDERABLESFinal ResultPerforming OrganizationAddressCity/State/ZIP CodePhone Number [facility] [address] [place] [address], [place] * Bedside Glucose *Place/Obtain serum glucose if >500 per glucometer. (06/17/2025 4:05 PM EDT)ComponentValueRef RangeTest MethodAnalysis Time Performed AtPathologist SignatureBedside Glucose (POC)9865 - 99 mg/dL 06/17/2025 4:10 PM [facility] LABORATORYSpecimen (Source)Anatomical Location / LateralityCollection Method / VolumeCollection TimeReceived Time arterial/fcnabdmou48/26/2025 4:05 PM EDT1 4:10 PM EDT Narrative Authorizing ProviderResult TypeResult StatusEhad Monika MDPOINT OF CARE TEST ORDERABLESFinal ResultPerforming OrganizationAddressCity/State/ZIP CodePhone Number [facility] [address] [place] [place] [address], * X-ray chest 1 view (06/17/2025 2:34 PM EDT)Anatomical RegionLateralityModality Body, ChestN/AComputed RadiographySpecimen (Source)Anatomical Location / LateralityCollection Method / VolumeCollection TimeReceived Time06/17/2025 3:12 PM EDT Narrative 06/17/2025 3:12 PM EDT Single view chest History:Sepsis ??Difficulty breathing, shortness of breath Comparison: 06/11/2025 Findings: Single portable view of the chest. Stable cardiac mediastinal silhouette. No new focal opacity, effusion or pneumothorax. Impression: No definitive acute process. Finalized by Peter Sarabia MD on 06/17/2025 3:12 PM Procedure Note Peter Sarabia MD - 06/17/2025 Single view chest History:Sepsis Difficulty breathing, shortness of breath Comparison: 06/11/2025 Findings: Single portable view of the chest. Stable cardiac mediastinal silhouette.No new focal opacity, effusion or pneumothorax. Impression: No definitive acute process. Finalized by Peter Sarabia MD on 06/17/2025 3:12 PM Authorizing ProviderResult TypeResult StatusFaFormerly Vid[facility] Duplin Hospitalqueta ZULUAGASAINT FRANC[facility] ORDERABLESFinal Result * (ABNORMAL) Urinalysis (06/17/2025 2:14 PM EDT)ComponentValueRef RangeTest MethodAnalysis TimePerformed AtPathologist SignatureCOLORYellowYellow 06/17/2025 2:55 PM [facility] LABORATORYTURBIDITYHazy(A)Clear 06/17/2025 2:55 PM [facility] LABORATORYSPECIFIC GRAVITY1.015 1.003 - 1.1091806/17/2025 2:55 PM [facility] LABORATORYNITRITE YypbphmqSihvtsru51/26/2025 2:55 PM [facility] PH,URINE6.05.0 - 8.510/ 2:55 PM [facility] LEUKOCYTE ESTERASESmall(A)Utydvrtz41/26/2025 2:55 PM [facility] DKQZZIZPDZVSDQSPJ349 mg/dL(A)Hxlrpfkj51/26/2025 2:55 PM [facility] LABORATORYKETONES (URINE)GwfbwnccLqytqfxy92/26/2025 2:55 PM [facility] LABORATORYUROBILINOGEN<1.1 eu/dL<1.1 eu/dL 06/17/2025 2:55 PM [facility] LABORATORYBILIRUBIN (URINE) BzaeumrqLdigzkyg34/26/2025 2:55 PM [facility] BLOOD/HGBLarge(A)Oqpbqdzz03/26/2025 2:55 PM [facility] LABORATORYHYALINE CASTS4(H)0 - 2:55 PM [facility] LABORATORYR.B.CELLS>720(H)0 - 2:55 PM [facility] LABORATORYW.B.CELLS11(H)0 - 2:55 PM [facility] LABORATORYGLUCOSE (URINE)ZzppvkyfEdbicxpi51/26/2025 2:55 PM [facility] LABORATORYSpecimen (Source)Anatomical Location / LateralityCollection Method / VolumeCollection TimeReceived TimeUrine (Urine, Indwelling Catheter) 06/17/2025 2:14 PM EDT1 2:18 PM EDT Narrative Authorizing ProviderResult TypeResult StatusFahpipe Cuenca MDURINE ORDERABLES Final ResultPerforming OrganizationAddressCity/State/ZIP CodePhone Number [facility] [address] [place] [address], * Urine Culture Urine, Indwelling Catheter (06/17/2025 1:48 PM EDT)Component ValueRef RangeTest MethodAnalysis TimePerformed AtPathologist SignatureCULTURE RESULTSNO GROWTH AT <1000 CFU/mL06/18/2025 12:46 PM [facility] LABORATORYSpecimen (Source)Anatomical Location / LateralityCollection Method / VolumeCollection TimeReceived TimeUrine (Urine, Indwelling Catheter) 06/17/2025 1:48 PM EDT1 2:18 PM EDT Narrative Authorizing ProviderResult TypeResult StatusC[facility] HospitalICROBIOLOGY - GENERAL ORDERABLESFinal ResultPerforming OrganizationAddressCity/State/ZIP Code Phone Number [facility] [address] [place] [address], * Blood culture #2 (06/17/2025 1:20 PM EDT)ComponentValueRef RangeTest Method Analysis TimePerformed AtPathologist SignatureCULTURE RESULTSNO GROWTH 5 DAYS 06/22/2025 2:02 PM [facility] LABORATORYSpecimen (Source) Anatomical Location / LateralityCollection Method / VolumeCollection Time Received TimeBloodVenous blood / UnknownVenipuncture / Rxnvddr7606/17/2025 1:20 PM EDT1 1:49 PM EDT Narrative [facility] - 06/22/2025 2:02 PM EDT Suboptimal volume of blood collected, Results may be affected. Authorizing ProviderResult TypeResult Status[facility] BudaIOLOGY - GENERAL ORDERABLESFinal ResultPerforming OrganizationAddressCity/State/ZIP Code Phone Number [facility] [address] [place] [address], * Blood culture #1 (06/17/2025 1:20 PM EDT)ComponentValueRef RangeTest Method Analysis TimePerformed AtPathologist SignatureCULTURE RESULTSNO GROWTH 5 DAYS 06/22/2025 2:02 PM [facility] LABORATORYSpecimen (Source) Anatomical Location / LateralityCollection Method / VolumeCollection Time Received TimeBloodVenous blood / UnknownVenipuncture / Vummjkm3406/17/2025 1:20 PM EDT1 1:49 PM EDT Narrative [facility] - 06/22/2025 2:02 PM EDT Suboptimal volume of blood collected, Results may be affected. Authorizing ProviderResult TypeResult StatusFahham Bang MDMICROBIOLOGY - GENERAL ORDERABLESFinal ResultPerforming OrganizationAddressCity/State/ZIP Code Phone Number [facility] [address] [place] [address], [place] [phone] * (ABNORMAL) Bedside Glucose *Place/Obtain serum glucose if >500 per glucometer. (06/17/2025 11:24AM EDT)ComponentValueRef RangeTest MethodAnalysis Time Performed AtPathologist SignatureBedside Glucose (POC)146(H)65 - 99 mg/dL 06/17/2025 11:31 AM [facility] LABORATORYSpecimen (Source)Anatomical Location / LateralityCollection Method / VolumeCollection TimeReceived Time arterial/xywpbqqqq71/26/2025 11:24 AM EDT1 11:31 AM EDT Narrative Authorizing ProviderResult TypeResult StatusEhad Monika MDPOINT OF CARE TEST ORDERABLESFinal ResultPerforming OrganizationAddressty/State/ZIP CodePhone Number [facility] [address] [place] [address], * (ABNORMAL) Bedside Glucose *Place/Obtain serum glucose if >500 per glucometer. (06/17/2025 7:44 AM EDT)ComponentValueRef RangeTest MethodAnalysis Time Performed AtPathologist SignatureBedside Glucose (POC)163(H)65 - 99 mg/dL 06/17/2025 7:49 AM [facility] LABORATORYSpecimen (Source)Anatomical Location / LateralityCollection Method / VolumeCollection TimeReceived Time arterial/doqvnuwwf32/26/2025 7:44 AM EDT1 7:49 AM EDT Narrative Authorizing ProviderResult TypeResult StatusEhad Monika MDPOINT OF CARE TEST ORDERABLESFinal ResultPerforming OrganizationAddJeff[facility]/State/ZIP CodePhone Number [facility] [address] [place] [address], * Ionized calcium (06/17/2025 6:08 AM EDT)ComponentValueRef RangeTest Method Analysis TimePerformed AtPathologist SignatureIONIZED CALCIUM - ICAN5.04.5 - 5.3 mg/dL06/17/2025 6:51 AM [facility] LABORATORYSpecimen (Source)Anatomical Location / LateralityCollection Method / VolumeCollection TimeReceived TimeBloodVenous blood / UnknownVenipuncture / Nvzaggs2306/17/2025 6:08 AM EDT1 6:43 AM EDT Narrative Authorizing ProviderResult TypeResult StatusRamy A Erinn MDLAB BLOOD ORDERABLES Final ResultPerforming OrganizationAddressCity/State/ZIP CodePhone Number [facility] [address] [place] [address] [address] [place] [address], * Phosphorus (06/17/2025 6:08 AM EDT)ComponentValueRef RangeTest MethodAnalysis TimePerformed AtPathologist SignaturePHOSPHORUS4.72.4 - 4.9 mg/dL06/17/2025 7:16 AM [facility] LABORATORYSpecimen (Source)Anatomical Location / LateralityCollection Method / VolumeCollection TimeReceived Time BloodVenous blood / UnknownVenipuncture / Wkgcfwh9606/17/2025 6:08 AM EDT 06/17/2025 6:42 AM EDT Narrative Authorizing ProviderResult TypeResult StatusRamy A Erinn ZULUAGALAB BLOOD ORDERABLES Final ResultPerforming OrganizationAddressCity/State/ZIP CodePhone Number [address] [place] [address], * Magnesium (06/17/2025 6:08 AM EDT)ComponentValueRef RangeTest MethodAnalysis TimePerformed AtPathologist SignatureMAGNESIUM2.61.8 - 2.6 mg/dL06/17/2025 7:16 AM [facility] LABORATORYSpecimen (Source)Anatomical Location / LateralityCollection Method / VolumeCollection TimeReceived Time BloodVenous blood / UnknownVenipuncture / Feszpzy2706/17/2025 6:08 AM EDT 06/17/2025 6:42 AM EDT Narrative Authorizing ProviderResult TypeResult StatusRamy A Erinn MDLAB BLOOD ORDERABLES Final ResultPerforming OrganizationAddressCity/State/ZIP CodePhone Number [facility] [address] [place] [address] [address] [place] [id number], * CBC auto differential (06/17/2025 6:08 AM EDT)ComponentValueRef RangeTest MethodAnalysis TimePerformed AtPathologist SignatureWBC5.54 - 11 x10E9/L 06/17/2025 6:58 AM [facility] LABORATORYRBC Count4.404.1 - 5.7 X10E12/L1 6:58 AM [facility] Ouiwqcxsar00.113 - 17 g/dL06/17/2025 6:58 AM [facility] QZYJFJIUZUScklvwjsce89.039 - 50 %06/17/2025 6:58 AM [facility] XHMUGXDAGVSUA3165 - 100 fL06/17/2025 6:58 AM [facility] JXFLBRBSNNBEV57.127 - 34 pg06/17/2025 6:58 AM [facility] ZQOFVQYISDQLRY24.432 - 36 g/dL06/17/2025 6:58 AM [facility] YQVOEGNFNVUYQ90.111.5 - 15 %06/17/2025 6:58 AM [facility] LABORATORYPlatelet Frxmr352702 - 450 X10E9/L1 6:58 AM EDT [facility]ORYMPV8.67 - 12 fL06/17/2025 6:58 AM [facility] LABORATORYNeutrophils %56.4%06/17/2025 6:58 AM [facility] LABORATORYLymphocytes %27.1%06/17/2025 6:58 AM [facility] LABORATORYMonocytes %10.8%06/17/2025 6:58 AM [facility] LABORATORYEosinophils %4.9%06/17/2025 6:58 AM [facility] LABORATORYBasophils %0.8%06/17/2025 6:58 AM [facility] LABORATORYNeutrophils Absolute (A)3.11.5 - 6.6 10*3/uL 06/17/2025 6:58 AM [facility] LABORATORYLymphocytes Absolute 1.51.0 - 3.5 10*3/uL06/17/2025 6:58 AM [facility] Monocytes Absolute0.60.0 - 0.9 10*3/uL06/17/2025 6:58 AM [facility] LABORATORYEosinophils Absolute0.30.0 - 0.4 10*3/uL06/17/2025 6:58 AM [facility] LABORATORYBasophils Absolute0.00.0 - 0.2 10*3/uL 06/17/2025 6:58 AM [facility] LABORATORYDifferential Type AUTOMATED PJJSFTJBILJY00/26/2025 6:58 AM [facility] LABORATORYSpecimen (Source)Anatomical Location / LateralityCollection Method / VolumeCollection TimeReceived TimeBloodVenous blood / UnknownVenipuncture / Avkycpt8206/17/2025 6:08 AM EDT1 6:42 AM EDT Narrative Authorizing ProviderResult TypeResult StatusFamatthew BARNES BLOOD ORDERABLES Final ResultPerforming OrganizationAddressCity/State/ZIP CodePhone Number [facility] [address] [place] [address], * (ABNORMAL) Comprehensive metabolic panel (06/17/2025 6:08 AM EDT)Component ValueRef RangeTest MethodAnalysis TimePerformed AtPathologist SignatureSODIUM 749616 - 146 mmol/L1 7:16 AM [facility] POTASSIUM4.33.5 - 5.0 mmol/L1 7:16 AM [facility] DKNBHFNWXJCWJKZLSC685(H)98 - 109 mmol/L1 7:16 AM [facility] LABORATORYCARBON HDTMXFZ4702 - 32 mmol/L1 7:16 AM [facility] LABORATORYANION GAP55 - 15 mmol/L1 7:16 AM EDT [facility]ORYBLOOD UREA KZSZWYRY36(H)5 - 27 mg/dL 06/17/2025 7:16 AM [facility] LABORATORYCREATININE1.99(H)0.60 - 1.30 mg/dL06/17/2025 7:16 AM [facility] LABORATORYComment: METHOD TRACEABLE TO IDKS FPVERIBCCYLEGQV336(H)65 - 99 mg/dL06/17/2025 7:16 AM [facility] LABORATORYCALCIUM9.48.5 - 10.5 mg/dL06/17/2025 7:16 AM [facility] LABORATORYTOTAL PROTEIN7.06.0 - 8.0 g/dL 06/17/2025 7:16 AM [facility] LABORATORYALBUMIN3.73.2 - 5.3 g/dL06/17/2025 7:16 AM [facility] LABORATORYALKALINE VXBJNXDTJWB8260 - 130 U/L1 7:16 AM [facility] TJSBBQIEXNTFG54<=41 U/L1 7:16 AM [facility] CUYWYCCBQXQXR09<=40 U/L1 7:16 AM [facility] LABORATORYBILIRUBIN,TOTAL0.60.3 - 1.2 mg/dL06/17/2025 7:16 AM [facility] LABORATORYEGFR Non-Race Blbfzumhf72(L)>=60 ml/min/1.73sq.m 06/17/2025 7:16 AM [facility] LABORATORYComment: Reported eGFR is based on the CKD-EPI 2020 equation that does not use a race coefficient. Specimen (Source)Anatomical Location / LateralityCollection Method / Volume Collection TimeReceived TimeBloodVenous blood / UnknownVenipuncture / Unknown 06/17/2025 6:08 AM EDT1 6:42 AM EDT Narrative Authorizing ProviderResult TypeResult StatusFamatthew BARNES BLOOD ORDERABLES Final ResultPerforming OrganizationAddressCity/State/ZIP CodePhone Number [facility] [address] [place] [address], * (ABNORMAL) Bedside Glucose *Place/Obtain serum glucose if >500 per glucometer. (06/16/2025 9:06 PM EDT)ComponentValueRef RangeTest MethodAnalysis Time Performed AtPathologist SignatureBedside Glucose (POC)230(H)65 - 99 mg/dL 06/16/2025 9:08 PM [facility] LABORATORYSpecimen (Source)Anatomical Location / LateralityCollection Method / VolumeCollection TimeReceived Time arterial/nwsdltamy88/25/2025 9:06 PM EDT1 9:08 PM EDT Narrative Authorizing ProviderResult TypeResult StatusEhad [facility] CenterOINT OF CARE TEST ORDERABLESFinal ResultPerforming OrganizationAddressty/State/ZIP CodePhone Number [facility] [address] [place] [address], * (ABNORMAL) Bedside Glucose *Place/Obtain serum glucose if >500 per glucometer. (06/16/2025 3:58 PM EDT)ComponentValueRef RangeTest MethodAnalysis Time Performed AtPathologist SignatureBedside Glucose (POC)145(H)65 - 99 mg/dL 06/16/2025 4:03 PM [facility] LABORATORYSpecimen (Source)Anatomical Location / LateralityCollection Method / VolumeCollection TimeReceived Time arterial/uvvcbljcr00/25/2025 3:58 PM EDT1 4:03 PM EDT Narrative Authorizing ProviderResult TypeResult StatusEhad [facility] MDPOINT OF CARE TEST ORDERABLESFinal ResultPerforming OrganizationAddressty/State/ZIP CodePhone Number [facility] [address] [place] [address], [place] * (ABNORMAL) Bedside Glucose *Place/Obtain serum glucose if >500 per glucometer. (06/16/2025 12:36PM EDT)ComponentValueRef RangeTest MethodAnalysis Time Performed AtPathologist SignatureBedside Glucose (POC)154(H)65 - 99 mg/dL 06/16/2025 12:41 PM [facility] LABORATORYSpecimen (Source)Anatomical Location / LateralityCollection Method / VolumeCollection TimeReceived Time arterial/aeshcfggi64/25/2025 12:36 PM EDT1 12:41 PM EDT Narrative Authorizing ProviderResult TypeResult StatusEhad Monika MDPOINT OF CARE TEST ORDERABLESFinal ResultPerforming OrganizationAddressCity/State/ZIP CodePhone Number [facility] [address] [place] [address], * (ABNORMAL) Bedside Glucose *Place/Obtain serum glucose if >500 per glucometer. (06/16/2025 7:55 AM EDT)ComponentValueRef RangeTest MethodAnalysis Time Performed AtPathologist SignatureBedside Glucose (POC)162(H)65 - 99 mg/dL 06/16/2025 8:01 AM [facility] LABORATORYSpecimen (Source)Anatomical Location / LateralityCollection Method / VolumeCollection TimeReceived Time arterial/mzridebmh50/25/2025 7:55 AM EDT1 8:01 AM EDT Narrative Authorizing ProviderResult TypeResult StatusEhad Monika MDPOINT OF CARE TEST ORDERABLESFinal ResultPerforming OrganizationAddressCity/State/ZIP CodePhone Number [facility] [address] [place] [address], [place] * Ionized calcium (06/16/2025 5:48 AM EDT)ComponentValueRef RangeTest Method Analysis TimePerformed AtPathologist SignatureIONIZED CALCIUM - ICAN4.64.5 - 5.3 mg/dL06/16/2025 10:18 AM [facility] LABSpecimen (Source) Anatomical Location / LateralityCollection Method / VolumeCollection Time Received TimeBloodVenous blood / UnknownVenipuncture / Hbkbewf9106/16/2025 5:48 AM EDT1 6:24 AM EDT Narrative Authorizing ProviderResult TypeResult StatusRampreston BARNES BLOOD ORDERABLES Final ResultPerforming OrganizationAddressCity/State/ZIP CodePhone Number [facility] [address] [place] [address], [place] * (ABNORMAL) Phosphorus (06/16/2025 5:48 AM EDT)ComponentValueRef RangeTest MethodAnalysis TimePerformed AtPathologist SignaturePHOSPHORUS5.1(H)2.4 - 4.9 mg/dL06/16/2025 7:00 AM [facility] LABORATORYComment:R- Specimen slightly hemolyzed, results increasedSpecimen (Source)Anatomical Location / LateralityCollection Method / VolumeCollection TimeReceived Time BloodVenous blood / UnknownVenipuncture / Qhxjrui3106/16/2025 5:48 AM EDT 06/16/2025 6:39 AM EDT Narrative Authorizing ProviderResult TypeResult StatusRamy Luciana BARNES BLOOD ORDERABLES Final ResultPerforming OrganizationAddressty/State/ZIP CodePhone Number [facility] [address] [place] [address] [address] [place] [address], * Magnesium (06/16/2025 5:48 AM EDT)ComponentValueRef RangeTest MethodAnalysis TimePerformed AtPathologist SignatureMAGNESIUM2.61.8 - 2.6 mg/dL06/16/2025 7:00 AM [facility] LABORATORYSpecimen (Source)Anatomical Location / LateralityCollection Method / VolumeCollection TimeReceived Time BloodVenous blood / UnknownVenipuncture / Janwkya3406/16/2025 5:48 AM EDT 06/16/2025 6:39 AM EDT Narrative Authorizing ProviderResult TypeResult StatusRamy Luciana BARNES BLOOD ORDERABLES Final ResultPerforming OrganizationAddressty/State/ZIP CodePhone Number [facility] [address] [place] [address] [address] [place] [address], * (ABNORMAL) CBC auto differential (06/16/2025 5:48 AM EDT)ComponentValueRef RangeTest MethodAnalysis TimePerformed AtPathologist SignatureWBC5.54 - 11 x10E9/L1 6:38 AM [facility] LABORATORYRBC Count4.17 4.1 - 5.7 X10E12/L1 6:38 AM [facility] Anjomcrnnw72.213 - 17 g/dL06/16/2025 6:38 AM [facility] MRXCHANGGVRyawqnohsy07.8(L)39 - 50 %06/16/2025 6:38 AM [facility] AFLCTQOLGLPAX7990 - 100 fL06/16/2025 6:38 AM [facility] JPNIOKRAXMGUR96.527 - 34 pg06/16/2025 6:38 AM [facility] TRYAEARSPRIAEO75.932 - 36 g/dL06/16/2025 6:38 AM [facility] HTMFIUDKRDJLH25.411.5 - 15 %06/16/2025 6:38 AM [facility] LABORATORYPlatelet Pdilb227667 - 450 X10E9/L1 6:38 AM [facility] LABORATORYMPV8.67 - 12 fL06/16/2025 6:38 AM [facility] LABORATORYNeutrophils %56.3%06/16/2025 6:38 AM [facility] LABORATORYLymphocytes %27.7%06/16/2025 6:38 AM [facility] LABORATORYMonocytes %10.8%06/16/2025 6:38 AM [facility] LABORATORYEosinophils %4.1%06/16/2025 6:38 AM [facility] LABORATORYBasophils %1.1%06/16/2025 6:38 AM [facility] LABORATORYNeutrophils Absolute (A)3.11.5 - 6.6 10*3/uL 06/16/2025 6:38 AM [facility] LABORATORYLymphocytes Absolute 1.51.0 - 3.5 10*3/uL06/16/2025 6:38 AM [facility] Monocytes Absolute0.60.0 - 0.9 10*3/uL06/16/2025 6:38 AM [facility] LABORATORYEosinophils Absolute0.20.0 - 0.4 10*3/uL06/16/2025 6:38 AM [facility] LABORATORYBasophils Absolute0.10.0 - 0.2 10*3/uL 06/16/2025 6:38 AM [facility] LABORATORYDifferential Type AUTOMATED FSRQMKNQOJHY72/25/2025 6:38 AM [facility] LABORATORYSpecimen (Source)Anatomical Location / LateralityCollection Method / VolumeCollection TimeReceived TimeBloodVenous blood / UnknownVenipuncture / Dliptil6206/16/2025 5:48 AM EDT1 6:22 AM EDT Narrative Authorizing ProviderResult TypeResult StatusFamatthew BARNES BLOOD ORDERABLES Final ResultPerforming OrganizationAddressCity/State/ZIP CodePhone Number [facility] [address] [place] [address], * (ABNORMAL) Comprehensive metabolic panel (06/16/2025 5:48 AM EDT)Component ValueRef RangeTest MethodAnalysis TimePerformed AtPathologist SignatureSODIUM 452063 - 146 mmol/L1 7:00 AM [facility] POTASSIUM4.83.5 - 5.0 mmol/L1 7:00 AM [facility] UUUVRXZJNZLSFWUMLQ150(H)98 - 109 mmol/L1 7:00 AM [facility] LABORATORYCARBON ZUVQWZR1009 - 32 mmol/L1 7:00 AM [facility] LABORATORYANION WGZ292 - 15 mmol/L1 7:00 AM EDT [facility]ORYBLOOD UREA QUYBTFTY24(H)5 - 27 mg/dL 06/16/2025 7:00 AM [facility] LABORATORYCREATININE1.93(H)0.60 - 1.30 mg/dL06/16/2025 7:00 AM [facility] LABORATORYComment: METHOD TRACEABLE TO IDMS SGKZEXRYONCMNXP632(H)65 - 99 mg/dL06/16/2025 7:00 AM [facility] LABORATORYCALCIUM9.38.5 - 10.5 mg/dL06/16/2025 7:00 AM [facility] LABORATORYTOTAL PROTEIN6.96.0 - 8.0 g/dL 06/16/2025 7:00 AM [facility] LABORATORYALBUMIN3.73.2 - 5.3 g/dL06/16/2025 7:00 AM [facility] LABORATORYALKALINE DDCYQQIGVJH5959 - 130 U/L1 7:00 AM [facility] QOKYXWIYOILOR48<=41 U/L1 7:00 AM [facility] HPCJGMIILEPVC40<=40 U/L1 7:00 AM [facility] LABORATORYBILIRUBIN,TOTAL0.50.3 - 1.2 mg/dL06/16/2025 7:00 AM [facility] LABORATORYEGFR Non-Race Vruhypfqg06(L)>=60 ml/min/1.73sq.m 06/16/2025 7:00 AM [facility] LABORATORYComment: Reported eGFR is based on the CKD-EPI 2020 equation that does not use a race coefficient. Specimen (Source)Anatomical Location / LateralityCollection Method / Volume Collection TimeReceived TimeBloodVenous blood / UnknownVenipuncture / Unknown 06/16/2025 5:48 AM EDT1 6:39 AM EDT Narrative Authorizing ProviderResult TypeResult StatusFamatthew BARNES BLOOD ORDERABLES Final ResultPerforming OrganizationAddressCity/State/ZIP CodePhone Number [facility] [address] [place] [address], * (ABNORMAL) Bedside Glucose *Place/Obtain serum glucose if >500 per glucometer. (06/15/2025 8:58 PM EDT)ComponentValueRef RangeTest MethodAnalysis Time Performed AtPathologist SignatureBedside Glucose (POC)193(H)65 - 99 mg/dL 06/15/2025 9:03 PM [facility] LABORATORYSpecimen (Source)Anatomical Location / LateralityCollection Method / VolumeCollection TimeReceived Time arterial/oosuyfhtw45/24/2025 8:58 PM EDT1 9:03 PM EDT Narrative Authorizing ProviderResult TypeResult StatusEhad Monika MDPOINT OF CARE TEST ORDERABLESFinal ResultPerforming OrganizationAddressCity/State/ZIP CodePhone Number [facility] [address] [place] [address], [place] * (ABNORMAL) Sodium (06/15/2025 5:52 PM EDT)ComponentValueRef RangeTest Method Analysis TimePerformed AtPathologist JclswniamAQALYF158(H)134 - 146 mmol/L 06/15/2025 7:11 PM [facility] LABORATORYSpecimen (Source) Anatomical Location / LateralityCollection Method / VolumeCollection Time Received TimeBloodVenous blood / UnknownVenipuncture / Sdcxsrp5106/15/2025 5:52 PM EDT1 6:31 PM EDT Narrative Authorizing ProviderResult TypeResult StatusVidhit Yuko DOLAB BLOOD ORDERABLES Final ResultPerforming OrganizationAddressCity/State/ZIP CodePhone Number [facility] [address] [place] [address], [place] [phone] * Potassium (06/15/2025 5:52 PM EDT)ComponentValueRef RangeTest MethodAnalysis TimePerformed AtPathologist SignaturePOTASSIUM4.53.5 - 5.0 mmol/L1 7:11 PM [facility] LABORATORYSpecimen (Source)Anatomical Location / LateralityCollection Method / VolumeCollection TimeReceived Time BloodVenous blood / UnknownVenipuncture / Jjeyacf8706/15/2025 5:52 PM EDT 06/15/2025 6:31 PM EDT Narrative Authorizing ProviderResult TypeResult StatusAlphonse BARNES BLOOD ORDERABLES Final ResultPerforming OrganizationAddressCity/State/ZIP CodePhone Number [facility] [address] [place] [address], [place] [phone] * (ABNORMAL) Bedside Glucose *Place/Obtain serum glucose if >500 per glucometer. (06/15/2025 4:04 PM EDT)ComponentValueRef RangeTest MethodAnalysis Time Performed AtPathologist SignatureBedside Glucose (POC)227(H)65 - 99 mg/dL 06/15/2025 4:10 PM [facility] LABORATORYSpecimen (Source)Anatomical Location / LateralityCollection Method / VolumeCollection TimeReceived Time arterial/rozfxddgz24/24/2025 4:04 PM EDT10/ 4:10 PM EDT Narrative Authorizing ProviderResult TypeResult StatusEhad Monika MDPOINT OF CARE TEST ORDERABLESFinal ResultPerforming OrganizationAddressCity/State/ZIP CodePhone Number [facility] [address] [place] [address], [place] * Vas venous duplex lwr bilateral (06/15/2025 3:37 PM EDT)Anatomical Region LateralityModalityVascularBilateralUltrasoundSpecimen (Source)Anatomical Location / LateralityCollection Method / VolumeCollection TimeReceived Time 06/15/2025 4:05 PM EDT Narrative 06/15/2025 7:43 PM EDT Right: Limited visualization of veins in the thigh and calf due to body habitus and patient positioning. Lower extremity deep veins are compressible with spontaneous phasic spectral Doppler waveforms; superficial veins are compressible without intraluminal content. Left: Limited visualization of veins in the thigh and calf due to body habitus and patient positioning. Lower extremity deep veins are compressible with spontaneous phasic spectral Doppler waveforms;superficial veins are compressible without intraluminal content. Conclusions: BILATERAL: ??NO EVIDENCE of deep or superficial vein thrombosis of the lower extremities with limited visualization of lower extremity vein segments as described above. ?? Recommendations: Any questions prior to finalization, please call the reading physician during normal business hours at the phone number beside their name. Procedure Note Sen Rice, DO - 06/15/2025 Right: Limited visualization of veins in the thigh and calf due to bodyhabitus and patient positioning. Lower extremity deep veins arecompressible with spontaneous phasic spectral Doppler waveforms;superficial veins are compressible without intraluminal content. Left: Limited visualization of veins in the thigh and calf due to bodyhabitus and patient positioning. Lower extremity deep veins arecompressible with spontaneous phasic spectral Doppler waveforms;superficial veins are compressible without intraluminal content. Conclusions: BILATERAL: NO EVIDENCE of deep or superficial veinthrombosis of the lower extremities with limited visualization of lowerextremity vein segments as described above. Recommendations: Any questions prior to finalization, please call thereading physician during normal business hours at the phone number besidetheir name. Authorizing ProviderResult TypeResult StatusFahham Bang [facility] VASCULAR ORDERABLESFinal Result * (ABNORMAL) Bedside Glucose *Place/Obtain serum glucose if >500 per glucometer. (06/15/2025 12:48PM EDT)ComponentValueRef RangeTest MethodAnalysis Time Performed AtPathologist SignatureBedside Glucose (POC)231(H)65 - 99 mg/dL 06/15/2025 12:53 PM [facility]YSpecimen (Source)Anatomical Location / LateralityCollection Method / VolumeCollection TimeReceived Time arterial/ublljwxqx50/24/2025 12:48 PM EDT1 12:53 PM EDT Narrative Authorizing ProviderResult TypeResult StatusEhad Monika MDPOINT OF CARE TEST ORDERABLESFinal ResultPerforming OrganizationAddressCity/State/ZIP CodePhone Number [facility] [address] [place] [address], [place] * NM renogram with lasix (06/15/2025 12:38 PM EDT)Anatomical RegionLaterality ModalityNuc MedN/ANuclear MedicineSpecimen (Source)Anatomical Location / LateralityCollection Method / VolumeCollection TimeReceived Time06/15/2025 12:47 PM EDT Narrative 06/15/2025 4:29 PM EDT NM RENOGRAM WITH LASIX CLINICAL INDICATION: evaluate for obstructive uropathy . PREPARATION: Oral hydration. TECHNIQUE: Following intravenous injection of 4.4 mCi of Tc-99m MAG-3, dynamic renal blood flow andexcretory phase imaging with quantitative analysis were performed. At 7 minutes post-tracer, intravenous furosemide, 40 mg, was administered and sequential imaging monitoring diuretic response and quantitative analysis were performed COMPARISON: Ultrasound dated 06/07/2025. Patient demonstrated mild right hydronephrosis and left hydronephrosis. There was prominence of both extrarenal pelvis. FINDINGS: Timing of renal blood flow, cortical uptake, and excretion are prompt and symmetric. ?? Parenchymal uptake is asymmetrical. Some delay and decrease in the right No gross cortical defect. The effective renal plasma flow in the right kidney 139.6mL/m and the left kidney is 65.1 mL/m. Time to maximum radiotracer uptake on the right is 12 minutes and the left is 8 minutes.(Normal <= 5min.) Relative uptake right kidney 68% and left kidney 32%. 20min after T peak/max:Mild bilateral delayed. (Normal<= 35%). After administration of intravenous furosemide, there was prompt clearance of radiotracer from the right and left renal pelves with T-1/2 on the right of 64.8 minutes and the left 85.1 minutes. ??(T1/2 Normal<= 10-15 min). IMPRESSION: 1. ??No scintigraphic evidence of high-grade obstruction. 2. ??Split renal function 32% on the left and 68% on the right. 3. ??There is persistent retention of activity in the dilated collecting systems no obstruction on the right and no high-grade obstruction but low-grade obstruction or stasis on the left may be present. Finalized by Bradford Marroquin MD on 06/15/2025 4:29 PM Procedure Note Bradford Marroquin MD - 06/15/2025 NM RENOGRAM WITH LASIX CLINICAL INDICATION: evaluate for obstructive uropathy . PREPARATION: Oral hydration. TECHNIQUE: Following intravenous injection of 4.4 mCi of Tc-99m MAG-3,dynamic renal blood flow and excretory phase imaging with quantitativeanalysis were performed. At 7 minutes post-tracer, intravenous furosemide,40 mg, was administered and sequential imaging monitoring diureticresponse and quantitative analysis were performed COMPARISON: Ultrasound dated 06/07/2025. Patient demonstrated mild right hydronephrosis and left hydronephrosis. There was prominence of bothextrarenal pelvis. FINDINGS: Timing of renal blood flow, cortical uptake, and excretion areprompt and symmetric. Parenchymal uptake is asymmetrical. Some delay and decrease in the rightNo gross cortical defect. The effective renal plasma flow in the right kidney 139.6mL/m and the leftkidney is 65.1 mL/m. Time to maximum radiotracer uptake on the right is 12minutes and the left is 8 minutes.(Normal <= 5 min.) Relative uptake rightkidney 68% and left kidney 32%. 20min after T peak/max:Mild bilateral delayed. (Normal<= 35%). After administration of intravenous furosemide, there was prompt clearanceof radiotracer from the right and left renal pelves with T-1/2 on theright of 64.8 minutes and the left 85.1 minutes. (T1/2 Normal<= 10-15min). IMPRESSION: 1. No scintigraphic evidence of high-grade obstruction. 2. Split renal function 32% on the left and 68% on the right. 3. There is persistent retention of activity in the dilated collectingsystems no obstruction on the right and no high-grade obstruction butlow-grade obstruction or stasis on the left may be present. Finalized by Bradford Marroquin MD on 06/15/2025 4:29 PM Authorizing ProviderResult TypeResult StatusRebeckesha Tim PAIMG NM ORDERABLESFinal Result * (ABNORMAL) Bedside Glucose *Place/Obtain serum glucose if >500 per glucometer. (06/15/2025 7:59 AM EDT)ComponentValueRef RangeTest MethodAnalysis Time Performed AtPathologist SignatureBedside Glucose (POC)146(H)65 - 99 mg/dL 06/15/2025 8:11 AM [facility]YSpecimen (Source)Anatomical Location / LateralityCollection Method / VolumeCollection TimeReceived Time arterial/iokrbtwbu58/24/2025 7:59 AM EDT1 8:11 AM EDT Narrative Authorizing ProviderResult TypeResult StatusEhad Monika MDPOINT OF CARE TEST ORDERABLESFinal ResultPerforming OrganizationAddressCity/State/ZIP CodePhone Number [facility] [address] [phone], * Ionized calcium (06/15/2025 6:59 AM EDT)ComponentValueRef RangeTest Method Analysis TimePerformed AtPathologist SignatureIONIZED CALCIUM - ICAN4.74.5 - 5.3 mg/dL06/15/2025 7:50 AM [facility] LABORATORYSpecimen (Source)Anatomical Location / LateralityCollection Method / VolumeCollection TimeReceived TimeBloodVenous blood / UnknownVenipuncture / Hupawsd5806/15/2025 6:59 AM EDT1 7:23 AM EDT Narrative Authorizing ProviderResult TypeResult StatusAdan BARNES BLOOD ORDERABLES Final ResultPerforming OrganizationAddressCity/State/ZIP CodePhone Number [facility] [address] [place] [address], * Phosphorus (06/15/2025 6:59 AM EDT)ComponentValueRef RangeTest MethodAnalysis TimePerformed AtPathologist SignaturePHOSPHORUS4.52.4 - 4.9 mg/dL06/15/2025 7:58 AM [facility] LABORATORYSpecimen (Source)Anatomical Location / LateralityCollection Method / VolumeCollection TimeReceived Time BloodVenous blood / UnknownVenipuncture / Gmdtols9406/15/2025 6:59 AM EDT 06/15/2025 7:23 AM EDT Narrative Authorizing ProviderResult TypeResult StatusRamy Luciana BARNES BLOOD ORDERABLES Final ResultPerforming OrganizationAddressCity/State/ZIP CodePhone Number [facility] [address] [place] [address], * (ABNORMAL) Magnesium (06/15/2025 6:59 AM EDT)ComponentValueRef RangeTest MethodAnalysis TimePerformed AtPathologist SignatureMAGNESIUM2.8(H)1.8 - 2.6 mg/dL06/15/2025 7:58 AM [facility] LABORATORYSpecimen (Source)Anatomical Location / LateralityCollection Method / VolumeCollection TimeReceived TimeBloodVenous blood / UnknownVenipuncture / Srhhxwj7406/15/2025 6:59 AM EDT1 7:23 AM EDT Narrative Authorizing ProviderResult TypeResult StatusRamy Luciana BARNES BLOOD ORDERABLES Final ResultPerforming OrganizationAddressty/State/ZIP CodePhone Number [facility] [address] [place] [address], * (ABNORMAL) CBC auto differential (06/15/2025 6:59 AM EDT)ComponentValueRef RangeTest MethodAnalysis TimePerformed AtPathologist SignatureWBC4.24 - 11 x10E9/L1 7:37 AM [facility] LABORATORYRBC Count4.13 4.1 - 5.7 X10E12/L10 7:37 AM [facility] Jjhmioofsb45.113 - 17 g/dL06/15/2025 7:37 AM [facility] YYKVEXSORBMzojrvkeqi68.5(L)39 - 50 %06/15/2025 7:37 AM [facility] CSPHKMXUCBCHZ0048 - 100 fL06/15/2025 7:37 AM [facility] HWACPFGYSOPYU48.627 - 34 pg06/15/2025 7:37 AM [facility] MDAHYVSEDVOMXF04.932 - 36 g/dL06/15/2025 7:37 AM [facility] JEZIWKPZWPOEY18.111.5 - 15 %06/15/2025 7:37 AM [facility] LABORATORYPlatelet Kxivl306051 - 450 X10E9/L1 7:37 AM [facility] LABORATORYMPV8.67 - 12 fL06/15/2025 7:37 AM [facility] LABORATORYNeutrophils %51.2%06/15/2025 7:37 AM [facility] LABORATORYLymphocytes %33.5%06/15/2025 7:37 AM [facility] LABORATORYMonocytes %9.5%06/15/2025 7:37 AM [facility] LABORATORYEosinophils %4.8%06/15/2025 7:37 AM [facility] LABORATORYBasophils %1.0%06/15/2025 7:37 AM [facility] LABORATORYNeutrophils Absolute (A)2.21.5 - 6.6 10*3/uL 06/15/2025 7:37 AM [facility] LABORATORYLymphocytes Absolute 1.41.0 - 3.5 10*3/uL06/15/2025 7:37 AM [facility] Monocytes Absolute0.40.0 - 0.9 10*3/uL06/15/2025 7:37 AM [facility] LABORATORYEosinophils Absolute0.20.0 - 0.4 10*3/uL06/15/2025 7:37 AM [facility] LABORATORYBasophils Absolute0.00.0 - 0.2 10*3/uL 06/15/2025 7:37 AM [facility] LABORATORYDifferential Type AUTOMATED MKFZTYOAQLIR87/24/2025 7:37 AM [facility] LABORATORYSpecimen (Source)Anatomical Location / LateralityCollection Method / VolumeCollection TimeReceived TimeBloodVenous blood / UnknownVenipuncture / Clkzfpp8206/15/2025 6:59 AM EDT1 7:24 AM EDT Narrative Authorizing ProviderResult TypeResult StatusFamatthew BARNES BLOOD ORDERABLES Final ResultPerforming OrganizationAddressCity/State/ZIP CodePhone Number [facility] [address] [place] [address], * (ABNORMAL) Comprehensive metabolic panel (06/15/2025 6:59 AM EDT)Component ValueRef RangeTest MethodAnalysis TimePerformed AtPathologist SignatureSODIUM 148(H)134 - 146 mmol/L1 7:58 AM [facility] LABORATORYPOTASSIUM4.43.5 - 5.0 mmol/L1 7:58 AM [facility] VWAZMCPIQGEQQBPRXY395(H)98 - 109 mmol/L1 7:58 AM [facility] LABORATORYCARBON IKRSQBZ0922 - 32 mmol/L1 7:58 AM [facility] LABORATORYANION GAP85 - 15 mmol/L1 7:58 AM [facility] LABORATORYBLOOD UREA RQAYRVGN06(H)5 - 27 mg/dL 06/15/2025 7:58 AM [facility] LABORATORYCREATININE1.81(H)0.60 - 1.30 mg/dL06/15/2025 7:58 AM [facility] LABORATORYComment: METHOD TRACEABLE TO IDMS TIPQGMVQQMINFXF730(H)65 - 99 mg/dL06/15/2025 7:58 AM [facility] LABORATORYCALCIUM9.18.5 - 10.5 mg/dL06/15/2025 7:58 AM [facility] LABORATORYTOTAL PROTEIN6.66.0 - 8.0 g/dL 06/15/2025 7:58 AM [facility] LABORATORYALBUMIN3.63.2 - 5.3 g/dL06/15/2025 7:58 AM [facility] LABORATORYALKALINE AUBSLBRMTUN4080 - 130 U/L1 7:58 AM [facility] ALSLWRIBJWHCU18<=41 U/L1 7:58 AM [facility] CMETHLTJCPCGN17<=40 U/L1 7:58 AM [facility] LABORATORYBILIRUBIN,TOTAL0.50.3 - 1.2 mg/dL06/15/2025 7:58 AM [facility] LABORATORYEGFR Non-Race Egngfctqh09(L)>=60 ml/min/1.73sq.m 06/15/2025 7:58 AM [facility] LABORATORYComment: Reported eGFR is based on the CKD-EPI 2020 equation that does not use a race coefficient. Specimen (Source)Anatomical Location / LateralityCollection Method / Volume Collection TimeReceived TimeBloodVenous blood / UnknownVenipuncture / Unknown 06/15/2025 6:59 AM EDT1 7:23 AM EDT Narrative Authorizing ProviderResult TypeResult StatusFamatthew BARNES BLOOD ORDERABLES Final ResultPerforming OrganizationAddressCity/State/ZIP CodePhone Number [facility] [address] [place] [address], [place] [phone] * (ABNORMAL) Bedside Glucose *Place/Obtain serum glucose if >500 per glucometer. (06/14/2025 9:02 PM EDT)ComponentValueRef RangeTest MethodAnalysis Time Performed AtPathologist SignatureBedside Glucose (POC)107(H)65 - 99 mg/dL 06/14/2025 9:10 PM [facility]ORATORYSpecimen (Source)Anatomical Location / LateralityCollection Method / VolumeCollection TimeReceived Time arterial/pthheuzff98/23/2025 9:02 PM EDT1 9:10 PM EDT Narrative Authorizing ProviderResult TypeResult StatusEhad Monika MDPOINT OF CARE TEST ORDERABLESFinal ResultPerforming OrganizationAddressCity/State/ZIP CodePhone Number [facility] [address] [place] [address], * (ABNORMAL) Bedside Glucose *Place/Obtain serum glucose if >500 per glucometer. (06/14/2025 4:32 PM EDT)ComponentValueRef RangeTest MethodAnalysis Time Performed AtPathologist SignatureBedside Glucose (POC)145(H)65 - 99 mg/dL 06/14/2025 4:33 PM [facility]YSpecimen (Source)Anatomical Location / LateralityCollection Method / VolumeCollection TimeReceived Time arterial//23/2025 4:32 PM EDT1 4:33 PM EDT Narrative Authorizing ProviderResult TypeResult StatusFormerly [facility] MDPOINT OF CARE TEST ORDERABLESFinal ResultPerforming OrganizationAddressty/State/ZIP CodePhone Number [facility] [address] [place] [address], [place] * Fluoroscopy swallow motility function (06/14/2025 2:24 PM EDT)Anatomical RegionLateralityModalityChest, Abdomen, BodyRadio FluoroscopySpecimen (Source) Anatomical Location / LateralityCollection Method / VolumeCollection Time Received Time06/14/2025 2:33 PM EDT Narrative 06/14/2025 2:38 PM EDT FL SWALLOW MOTILITY FUNCTION HISTORY: Oropharyngeal dysphagia COMPARISON: Swallow study 06/12/2025 TECHNIQUE: Video fluoroscopic swallow study was performed in conjunction with speech pathologist. Barium contrast materials of varying consistencies administered. FINDINGS: Fluoroscopy time: 2.4 minutes Reference air kerma: 6.3 mGy Runs: 11 Thin: Penetration. Mildly thick: Penetration. Moderately thick: No penetration or aspiration. Applesauce: No penetration or aspiration. IMPRESSION: 1. ??Abnormal swallow study as outlined above. 2. ??Please correlate with dedicated speech pathology report for additional details and recommendations. Approved by Med Figueroa MD ??on 06/14/2025 2:33 PM Stiven Wyman MD have personally reviewed the image(s) and agree with and/or edited the report Finalized by Stiven Vu MD on 06/14/2025 2:38 PM Procedure Note Stiven Vu MD - 06/14/2025 FL SWALLOW MOTILITY FUNCTION HISTORY: Oropharyngeal dysphagia COMPARISON: Swallow study 06/12/2025 TECHNIQUE: Video fluoroscopic swallow study was performed in conjunctionwith speech pathologist. Barium contrast materials of varyingconsistencies administered. FINDINGS: Fluoroscopy time: 2.4 minutes Reference air kerma: 6.3 mGy Runs: 11 Thin: Penetration. Mildly thick: Penetration. Moderately thick: No penetration or aspiration. Applesauce: No penetration or aspiration. IMPRESSION: 1. Abnormal swallow study as outlined above. 2. Please correlate with dedicated speech pathology report for additionaldetails and recommendations. Approved by Med Figueroa MD on 06/14/2025 2:33 PM Stiven Wyman MD have personally reviewed the image(s) and agreewith and/or edited the report Finalized by Stiven Vu MD on 06/14/2025 2:38 PM Authorizing ProviderResult TypeResult Cas WASSERMAN FLUOROSCOPY ORDERABLESFinal Result * (ABNORMAL) Bedside Glucose *Place/Obtain serum glucose if >500 per glucometer. (06/14/2025 11:45AM EDT)ComponentValueRef RangeTest MethodAnalysis Time Performed AtPathologist SignatureBedside Glucose (POC)210(H)65 - 99 mg/dL 06/14/2025 11:46 AM [facility]ORATORYSpecimen (Source)Anatomical Location / LateralityCollection Method / VolumeCollection TimeReceived Time arterial/teggpwhvx05/23/2025 11:45 AM EDT1 11:46 AM EDT Narrative Authorizing ProviderResult TypeResult StatusEhad Monika MDPOINT OF CARE TEST ORDERABLESFinal ResultPerforming OrganizationAddressty/State/[facility] CodePhone Number [facility] [address] [place] [address], * (ABNORMAL) Bedside Glucose *Place/Obtain serum glucose if >500 per glucometer. (06/14/2025 9:02 AM EDT)ComponentValueRef RangeTest MethodAnalysis Time Performed AtPathologist SignatureBedside Glucose (POC)156(H)65 - 99 mg/dL 06/14/2025 9:03 AM [facility]ATORYSpecimen (Source)Anatomical Location / LateralityCollection Method / VolumeCollection TimeReceived Time arterial/ftecvzqsz77/23/2025 9:02 AM EDT1 9:03 AM EDT Narrative Authorizing ProviderResult TypeResult StatusEhad Monika MDPOINT OF CARE TEST ORDERABLESFinal ResultPerforming OrganizationAddressCity/State/ZIP CodePhone Number [facility] [address] [place] [address], [place] * Ionized calcium (06/14/2025 6:25 AM EDT)ComponentValueRef RangeTest Method Analysis TimePerformed AtPathologist SignatureIONIZED CALCIUM - ICAN4.94.5 - 5.3 mg/dL06/14/2025 7:24 AM [facility] LABORATORYSpecimen (Source)Anatomical Location / LateralityCollection Method / VolumeCollection TimeReceived TimeBloodVenous blood / UnknownVenipuncture / Otflfxp1306/14/2025 6:25 AM EDT1 7:08 AM EDT Narrative Authorizing ProviderResult TypeResult StatusAdan BARNES BLOOD ORDERABLES Final ResultPerforming OrganizationAddressty/State/ZIP CodePhone Number [facility] [address] [place] [address], * Phosphorus (06/14/2025 6:25 AM EDT)ComponentValueRef RangeTest MethodAnalysis TimePerformed AtPathologist SignaturePHOSPHORUS4.12.4 - 4.9 mg/dL06/14/2025 7:41 AM [facility] LABORATORYComment:R-Specimen moderately hemolyzed, results increasedSpecimen (Source)Anatomical Location / Laterality Collection Method / VolumeCollection TimeReceived TimeBloodVenous blood / UnknownVenipuncture / Usqozdq5706/14/2025 6:25 AM EDT1 7:04 AM EDT Narrative Authorizing ProviderResult TypeResult StatusRamy Luciana BARNES BLOOD ORDERABLES Final ResultPerforming OrganizationAddressCity/State/ZIP CodePhone Number [facility] [address] [place] [address] [address] [place] [address], * Magnesium (06/14/2025 6:25 AM EDT)ComponentValueRef RangeTest MethodAnalysis TimePerformed AtPathologist SignatureMAGNESIUM2.51.8 - 2.6 mg/dL06/14/2025 7:41 AM [facility] LABORATORYSpecimen (Source)Anatomical Location / LateralityCollection Method / VolumeCollection TimeReceived Time BloodVenous blood / UnknownVenipuncture / Exwrapt6906/14/2025 6:25 AM EDT 06/14/2025 7:04 AM EDT Narrative Authorizing ProviderResult TypeResult StatusRamy Luciana BARNES BLOOD ORDERABLES Final ResultPerforming OrganizationAddressCity/State/ZIP CodePhone Number [facility] [address] [place] [address] [address] [place] [address], * CBC auto differential (06/14/2025 6:25 AM EDT)ComponentValueRef RangeTest MethodAnalysis TimePerformed AtPathologist SignatureWBC6.54 - 11 x10E9/L 06/14/2025 7:23 AM [facility] LABORATORYRBC Count4.384.1 - 5.7 X10E12/L1 7:23 AM [facility] Dnismvezae60.913 - 17 g/dL06/14/2025 7:23 AM [facility] UWIACRKXUPSwbljkcpgl49.939 - 50 %06/14/2025 7:23 AM [facility] RYKEAAUPBVNFS4806 - 100 fL06/14/2025 7:23 AM [facility] VDHEECRQBPOOG31.827 - 34 pg06/14/2025 7:23 AM [facility] PCSFPOLGKSUISJ04.132 - 36 g/dL06/14/2025 7:23 AM [facility] CVSQEWDJNSBHO79.311.5 - 15 %06/14/2025 7:23 AM [facility] LABORATORYPlatelet Jkhxd928558 - 450 X10E9/L1 7:23 AM [facility] LABORATORYMPV8.67 - 12 fL06/14/2025 7:23 AM [facility] LABORATORYNeutrophils %63.6%06/14/2025 7:23 AM [facility] LABORATORYLymphocytes %22.8%06/14/2025 7:23 AM [facility] LABORATORYMonocytes %9.3%06/14/2025 7:23 AM [facility] LABORATORYEosinophils %3.3%06/14/2025 7:23 AM [facility] LABORATORYBasophils %1.0%06/14/2025 7:23 AM [facility] LABORATORYNeutrophils Absolute (A)4.11.5 - 6.6 10*3/uL 06/14/2025 7:23 AM [facility] LABORATORYLymphocytes Absolute 1.51.0 - 3.5 10*3/uL06/14/2025 7:23 AM [facility] Monocytes Absolute0.60.0 - 0.9 10*3/uL06/14/2025 7:23 AM [facility] LABORATORYEosinophils Absolute0.20.0 - 0.4 10*3/uL06/14/2025 7:23 AM [facility] LABORATORYBasophils Absolute0.10.0 - 0.2 10*3/uL 06/14/2025 7:23 AM [facility] LABORATORYDifferential Type AUTOMATED CNAAXHIFAMZP28/23/2025 7:23 AM [facility] LABORATORYSpecimen (Source)Anatomical Location / LateralityCollection Method / VolumeCollection TimeReceived TimeBloodVenous blood / UnknownVenipuncture / Jgtdyfg8206/14/2025 6:25 AM EDT1 7:04 AM EDT Narrative Authorizing ProviderResult TypeResult StatusFamatthew BARNES BLOOD ORDERABLES Final ResultPerforming OrganizationAddressCity/State/ZIP CodePhone Number [facility] [address] [place] [address], * (ABNORMAL) Comprehensive metabolic panel (06/14/2025 6:25 AM EDT)Component ValueRef RangeTest MethodAnalysis TimePerformed AtPathologist SignatureSODIUM 294997 - 146 mmol/L1 7:41 AM [facility] POTASSIUM5.1(H)3.5 - 5.0 mmol/L1 7:41 AM [facility] LABORATORYComment:R-Specimen moderately hemolyzed, results increasedCHLORIDE 112(H)98 - 109 mmol/L1 7:41 AM [facility] [place] CAJXJEG0596 - 32 mmol/L1 7:41 AM [facility] LABORATORYANION GAP95 - 15 mmol/L1 7:41 AM [facility] LABORATORYBLOOD UREA QSLTWZFL99(H)5 - 27 mg/dL06/14/2025 7:41 AM EDT [facility]ORATORYCREATININE1.67(H)0.60 - 1.30 mg/dL 06/14/2025 7:41 AM [facility] LABORATORYComment:METHOD TRACEABLE TO IDMS WRDKIBDSLDSBLHX069(H)65 - 99 mg/dL06/14/2025 7:41 AM EDT [facility] LABORATORYCALCIUM9.48.5 - 10.5 mg/dL06/14/2025 7:41 AM [facility] LABORATORYTOTAL PROTEIN7.16.0 - 8.0 g/dL 06/14/2025 7:41 AM [facility] LABORATORYALBUMIN3.73.2 - 5.3 g/dL06/14/2025 7:41 AM [facility] LABORATORYALKALINE QJQJRRRSLJM4551 - 130 U/L1 7:41 AM [facility] IHVFQNWORVYCV77<=41 U/L1 7:41 AM [facility] YDTJIRBCUABXG79<=40 U/L1 7:41 AM [facility] LABORATORYBILIRUBIN,TOTAL0.60.3 - 1.2 mg/dL06/14/2025 7:41 AM [facility] LABORATORYEGFR Non-Race Yiojqikjf24(L)>=60 ml/min/1.73sq.m 06/14/2025 7:41 AM [facility] LABORATORYComment: Reported eGFR is based on the CKD-EPI 2020 equation that does not use a race coefficient. Specimen (Source)Anatomical Location / LateralityCollection Method / Volume Collection TimeReceived TimeBloodVenous blood / UnknownVenipuncture / Unknown 06/14/2025 6:25 AM EDT1 7:04 AM EDT Narrative Authorizing ProviderResult TypeResult StatusFamatthew BARNES BLOOD ORDERABLES Final ResultPerforming OrganizationAddressCity/State/ZIP CodePhone Number [facility] [address] [place] [address], [place] [phone] * (ABNORMAL) Bedside Glucose *Place/Obtain serum glucose if >500 per glucometer. (06/13/2025 8:57 PM EDT)ComponentValueRef RangeTest MethodAnalysis Time Performed AtPathologist SignatureBedside Glucose (POC)161(H)65 - 99 mg/dL 06/13/2025 8:58 PM [facility] LABORATORYSpecimen (Source)Anatomical Location / LateralityCollection Method / VolumeCollection TimeReceived Time arterial/urukwlbja56/22/2025 8:57 PM EDT1 8:58 PM EDT Narrative Authorizing ProviderResult TypeResult StatusEhad Monika MDPOINT OF CARE TEST ORDERABLESFinal ResultPerforming OrganizationAddressCity/State/ZIP CodePhone Number [facility] [address] [place] [address], [place] * (ABNORMAL) Bedside Glucose *Place/Obtain serum glucose if >500 per glucometer. (06/13/2025 5:17 PM EDT)ComponentValueRef RangeTest MethodAnalysis Time Performed AtPathologist SignatureBedside Glucose (POC)266(H)65 - 99 mg/dL 06/13/2025 5:18 PM [facility]ORATORYSpecimen (Source)Anatomical Location / LateralityCollection Method / VolumeCollection TimeReceived Time arterial/msielqoor29/22/2025 5:17 PM EDT1 5:18 PM EDT Narrative Authorizing ProviderResult TypeResult StatusEhad Monika MDPOINT OF CARE TEST ORDERABLESFinal ResultPerforming OrganizationAddressCity/State/ZIP CodePhone Number [facility] [place] [address], * (ABNORMAL) Bedside Glucose *Place/Obtain serum glucose if >500 per glucometer. (06/13/2025 12:51PM EDT)ComponentValueRef RangeTest MethodAnalysis Time Performed AtPathologist SignatureBedside Glucose (POC)211(H)65 - 99 mg/dL 06/13/2025 12:53 PM [facility] LABORATORYSpecimen (Source)Anatomical Location / LateralityCollection Method / VolumeCollection TimeReceived Time arterial//22/2025 12:51 PM EDT1 12:53 PM EDT Narrative Authorizing ProviderResult TypeResult StatusEhad Monika MDPOINT OF CARE TEST ORDERABLESFinal ResultPerforming OrganizationAddressK[facility]/State/ZIP CodePhone Number [facility] [address] [place] [address], [place] * Vas renal artery duplex complete (06/13/2025 12:20 PM EDT)Anatomical Region LateralityModalityVascularN/AUltrasoundSpecimen (Source)Anatomical Location / LateralityCollection Method / VolumeCollection TimeReceived Time06/13/2025 1:07 PM EDT Narrative 06/13/2025 4:36 PM EDT Right: Non-visualization of the renal artery, renal vein, and parenchymal arteries due to patient body habitus, positioning, and excessive patient breathing. Normal kidney size noted (9-12 cm) with color flow. Left: Non-visualization of the renal artery and renal vein due to patient body habitus, positioning, and excessive patient breathing. Normal kidney size noted (9-12 cm) with color flow. Normal parenchymal resistive index (RI), normal range is 0.53-0.70 noted. Conclusions: RIGHT:Non-visualization of the abdomen, as describe above Technically inadequate renalduplex evaluation as described above, suggest alternative imaging modality if clinically warranted.LEFT:Non-visualization of the ??renal artery and renal veins ??due to body habitus; alternative imaging is recommended. Normal kidney size Recommendations: Any questions prior to finalization, please call the reading physician during normal business hours at the phone number beside their name. Procedure Note Arnaldo Givens MD - 06/13/2025 Right: Non-visualization of the renal artery, renal vein, and parenchymal arteries due to patient body habitus, positioning, and excessive patient breathing. Normal kidney size noted (9-12 cm) with color flow. Left: Non-visualization of the renal artery and renal vein due to patientbody habitus, positioning, and excessive patient breathing. Normal kidneysize noted (9-12 cm) with color flow. Normal parenchymal resistive index(RI), normal range is 0.53-0.70 noted. Conclusions: RIGHT:Non-visualization of the abdomen, as describe above Technically inadequate renal duplex evaluation as described above, suggest alternative imaging modality if clinicallywarranted.LEFT:Non-visualization of the renal artery and renal veins due to body habitus; alternative imaging is recommended. Normalkidney size Recommendations: Any questions prior to finalization, please call thereading physician during normal business hours at the phone number besidetheir name. Authorizing ProviderResult TypeResult StatusMohamed A [facility] VASCULAR ORDERABLESFinal Result * (ABNORMAL) Bedside Glucose *Place/Obtain serum glucose if >500 per glucometer. (06/13/2025 8:14 AM EDT)ComponentValueRef RangeTest MethodAnalysis Time Performed AtPathologist SignatureBedside Glucose (POC)184(H)65 - 99 mg/dL 06/13/2025 8:16 AM [facility]ORATORYSpecimen (Source)Anatomical Location / LateralityCollection Method / VolumeCollection TimeReceived Time arterial/mzdlnupnh85/22/2025 8:14 AM EDT1 8:15 AM EDT Narrative Authorizing ProviderResult TypeResult StatusEhad Monika MDPOINT OF CARE TEST ORDERABLESFinal ResultPerforming OrganizationAddressCity/State/ZIP CodePhone Number [facility] [address] [place] [address], [place] * Ionized calcium (06/13/2025 5:58 AM EDT)ComponentValueRef RangeTest Method Analysis TimePerformed AtPathologist SignatureIONIZED CALCIUM - ICAN5.14.5 - 5.3 mg/dL06/13/2025 7:51 AM [facility] LABORATORYSpecimen (Source)Anatomical Location / LateralityCollection Method / VolumeCollection TimeReceived TimeBloodVenous blood / UnknownVenipuncture / Hvgjico5206/13/2025 5:58 AM EDT1 6:12 AM EDT Narrative Authorizing ProviderResult TypeResult StatusRamy Luciana BARNES BLOOD ORDERABLES Final ResultPerforming OrganizationAddressCity/State/ZIP CodePhone Number [facility] [address] [place] [address], * Phosphorus (06/13/2025 5:58 AM EDT)ComponentValueRef RangeTest MethodAnalysis TimePerformed AtPathologist SignaturePHOSPHORUS3.52.4 - 4.9 mg/dL06/13/2025 6:46 AM [facility] LABORATORYSpecimen (Source)Anatomical Location / LateralityCollection Method / VolumeCollection TimeReceived Time BloodVenous blood / UnknownVenipuncture / Fdqjmjl8306/13/2025 5:58 AM EDT 06/13/2025 6:17 AM EDT Narrative Authorizing ProviderResult TypeResult StatusRamy Luciana BARNES BLOOD ORDERABLES Final ResultPerforming OrganizationAddressCity/State/ZIP CodePhone Number [facility] [address] [place] [address], * Magnesium (06/13/2025 5:58 AM EDT)ComponentValueRef RangeTest MethodAnalysis TimePerformed AtPathologist SignatureMAGNESIUM2.41.8 - 2.6 mg/dL06/13/2025 6:46 AM [facility] LABORATORYSpecimen (Source)Anatomical Location / LateralityCollection Method / VolumeCollection TimeReceived Time BloodVenous blood / UnknownVenipuncture / Qgypcpb3306/13/2025 5:58 AM EDT 06/13/2025 6:17 AM EDT Narrative Authorizing ProviderResult TypeResult StatusRamy Luciana BARNES BLOOD ORDERABLES Final ResultPerforming OrganizationAddressCity/State/ZIP CodePhone Number [facility] [address] [place] [address], * CBC auto differential (06/13/2025 5:58 AM EDT)ComponentValueRef RangeTest MethodAnalysis TimePerformed AtPathologist SignatureWBC6.34 - 11 x10E9/L 06/13/2025 6:31 AM [facility] LABORATORYRBC Count4.514.1 - 5.7 X10E12/L1 6:31 AM [facility] Rbauxmhipw07.413 - 17 g/dL06/13/2025 6:31 AM [facility] VYZBYZAIJLYduwwevxrt99.939 - 50 %06/13/2025 6:31 AM [facility] NCXQGHENULNUL4228 - 100 fL06/13/2025 6:31 AM [facility] XEWNZSVCWYJPP60.027 - 34 pg06/13/2025 6:31 AM [facility] RBOSASASPZLYZH51.532 - 36 g/dL06/13/2025 6:31 AM [facility] WFQCZINBTIBBZ33.211.5 - 15 %06/13/2025 6:31 AM [facility] LABORATORYPlatelet Kycch766624 - 450 X10E9/L1 6:31 AM EDT [facility]ORATORYMPV8.47 - 12 fL06/13/2025 6:31 AM [facility] LABORATORYNeutrophils %63.1%06/13/2025 6:31 AM [facility] LABORATORYLymphocytes %22.0%06/13/2025 6:31 AM [facility] LABORATORYMonocytes %9.8%06/13/2025 6:31 AM [facility] LABORATORYEosinophils %3.7%06/13/2025 6:31 AM [facility] LABORATORYBasophils %1.4%06/13/2025 6:31 AM [facility] LABORATORYNeutrophils Absolute (A)4.01.5 - 6.6 10*3/uL 06/13/2025 6:31 AM [facility] LABORATORYLymphocytes Absolute 1.41.0 - 3.5 10*3/uL06/13/2025 6:31 AM [facility] Monocytes Absolute0.60.0 - 0.9 10*3/uL06/13/2025 6:31 AM [facility] LABORATORYEosinophils Absolute0.20.0 - 0.4 10*3/uL06/13/2025 6:31 AM [facility] LABORATORYBasophils Absolute0.10.0 - 0.2 10*3/uL 06/13/2025 6:31 AM [facility] LABORATORYDifferential Type AUTOMATED GUERBMRYJCMP78/22/2025 6:31 AM [facility] LABORATORYSpecimen (Source)Anatomical Location / LateralityCollection Method / VolumeCollection TimeReceived TimeBloodVenous blood / UnknownVenipuncture / Rjsdxqe2906/13/2025 5:58 AM EDT1 6:17 AM EDT Narrative Authorizing ProviderResult TypeResult StatusFamatthew BARNES BLOOD ORDERABLES Final ResultPerforming OrganizationAddressCity/State/ZIP CodePhone Number [facility] [address] [place] [address], * (ABNORMAL) Comprehensive metabolic panel (06/13/2025 5:58 AM EDT)Component ValueRef RangeTest MethodAnalysis TimePerformed AtPathologist SignatureSODIUM 320933 - 146 mmol/L1 6:46 AM [facility] POTASSIUM4.73.5 - 5.0 mmol/L1 6:46 AM [facility] GCTNBVCPIWKEBMYWPL81374 - 109 mmol/L1 6:46 AM [facility] LABORATORYCARBON ELQCHNB4541 - 32 mmol/L1 6:46 AM [facility] LABORATORYANION GAP95 - 15 mmol/L1 6:46 AM EDT [facility]ORATORYBLOOD UREA AHZDXHHF91(H)5 - 27 mg/dL 06/13/2025 6:46 AM [facility] LABORATORYCREATININE1.61(H)0.60 - 1.30 mg/dL06/13/2025 6:46 AM [facility] LABORATORYComment: METHOD TRACEABLE TO IDKS WJCJPWCBRVLDYTV496(H)65 - 99 mg/dL06/13/2025 6:46 AM [facility] LABORATORYCALCIUM9.58.5 - 10.5 mg/dL06/13/2025 6:46 AM [facility] LABORATORYTOTAL PROTEIN7.26.0 - 8.0 g/dL 06/13/2025 6:46 AM [facility] LABORATORYALBUMIN3.83.2 - 5.3 g/dL06/13/2025 6:46 AM [facility] LABORATORYALKALINE FFXKCHKHGJG0309 - 130 U/L1 6:46 AM [facility] JTFFLZXVNVGHS90<=41 U/L1 6:46 AM [facility] NTSZUYMCMGYGD02<=40 U/L1 6:46 AM [facility] LABORATORYBILIRUBIN,TOTAL0.60.3 - 1.2 mg/dL06/13/2025 6:46 AM [facility] LABORATORYEGFR Non-Race Ctsoexnjz14(L)>=60 ml/min/1.73sq.m 06/13/2025 6:46 AM [facility] LABORATORYComment: Reported eGFR is based on the CKD-EPI 2020 equation that does not use a race coefficient. Specimen (Source)Anatomical Location / LateralityCollection Method / Volume Collection TimeReceived TimeBloodVenous blood / UnknownVenipuncture / Unknown 06/13/2025 5:58 AM EDT1 6:17 AM EDT Narrative Authorizing ProviderResult TypeResult Janet BARNES BLOOD ORDERABLES Final ResultPerforming OrganizationAddressty/State/ZIP CodePhone Number [facility] [address] [place] [address], [place] [phone] * (ABNORMAL) Bedside Glucose *Place/Obtain serum glucose if >500 per glucometer. (06/12/2025 9:49 PM EDT)ComponentValueRef RangeTest MethodAnalysis Time Performed AtPathologist SignatureBedside Glucose (POC)187(H)65 - 99 mg/dL 06/12/2025 9:54 PM [facility] LABORATORYSpecimen (Source)Anatomical Location / LateralityCollection Method / VolumeCollection TimeReceived Time arterial/gfkyjquwk16/21/2025 9:49 PM EDT1 9:54 PM EDT Narrative Authorizing ProviderResult TypeResult StatusEhad Moniak MDPOINT OF CARE TEST ORDERABLESFinal ResultPerforming OrganizationAddressCity/State/ZIP CodePhone Number [facility] [address] [place] [address], [place] * (ABNORMAL) Bedside Glucose *Place/Obtain serum glucose if >500 per glucometer. (06/12/2025 5:14 PM EDT)ComponentValueRef RangeTest MethodAnalysis Time Performed AtPathologist SignatureBedside Glucose (POC)205(H)65 - 99 mg/dL 06/12/2025 5:19 PM [facility]ORATORYSpecimen (Source)Anatomical Location / LateralityCollection Method / VolumeCollection TimeReceived Time arterial/ntabfwbsm24/21/2025 5:14 PM EDT1 5:19 PM EDT Narrative Authorizing ProviderResult TypeResult StatusEhad Monika MDPOINT OF CARE TEST ORDERABLESFinal ResultPerforming OrganizationAddressCity/State/ZIP CodePhone Number [facility] [address] [place] [address], * (ABNORMAL) Bedside Glucose *Place/Obtain serum glucose if >500 per glucometer. (06/12/2025 10:57AM EDT)ComponentValueRef RangeTest MethodAnalysis Time Performed AtPathologist SignatureBedside Glucose (POC)115(H)65 - 99 mg/dL 06/12/2025 11:02 AM [facility] LAB[facility]YSpecimen (Source)Anatomical Location / LateralityCollection Method / VolumeCollection TimeReceived Time arterial/gkgauwxaj74/21/2025 10:57 AM EDT1 11:02 AM EDT Narrative Authorizing ProviderResult TypeResult StatusEhad Monika MDPOINT OF CARE TEST ORDERABLESFinal ResultPerforming OrganizationAddressCity/State/ZIP CodePhone Number [facility] [address] [place] [address], [place] * Fluoroscopy swallow motility function (06/12/2025 10:10 AM EDT)Anatomical RegionLateralityModalityChest, Abdomen, BodyRadio FluoroscopySpecimen (Source) Anatomical Location / LateralityCollection Method / VolumeCollection Time Received Time06/12/2025 10:32 AM EDT Narrative 06/12/2025 10:47 AM EDT FL SWALLOW MOTILITY FUNCTION HISTORY: Oropharyngeal dysphagia COMPARISON: None TECHNIQUE: Video fluoroscopic swallow study was performed in conjunction with speech pathologist. Barium contrast materials of varying consistencies administered. FINDINGS: Fluoroscopy time: 2.3 minutes Reference air kerma: 5.1 mGy Runs: 17 Thin: Aspiration. Mildly thick: Penetration. Moderately thick: Penetration. Applesauce: No penetration or aspiration. Fruit: No penetration or aspiration. Cracker: No penetration or aspiration. IMPRESSION: 1. ??Abnormal swallow study as outlined above. 2. ??Please correlate with dedicated speech pathology report for additional details and recommendations. Approved by Med Figueroa MD ??on 06/12/2025 10:32 AM Uli Wyman MD have personally reviewed the image(s) and agree with and/or edited the report Finalized by Uli Dinh MD on 06/12/2025 10:47 AM Procedure Note Uli Dinh MD - 06/12/2025 FL SWALLOW MOTILITY FUNCTION HISTORY: Oropharyngeal dysphagia COMPARISON: None TECHNIQUE: Video fluoroscopic swallow study was performed in conjunctionwith speech pathologist. Barium contrast materials of varyingconsistencies administered. FINDINGS: Fluoroscopy time: 2.3 minutes Reference air kerma: 5.1 mGy Runs: 17 Thin: Aspiration. Mildly thick: Penetration. Moderately thick: Penetration. Applesauce: No penetration or aspiration. Fruit: No penetration or aspiration. Cracker: No penetration or aspiration. IMPRESSION: 1. Abnormal swallow study as outlined above. 2. Please correlate with dedicated speech pathology report for additionaldetails and recommendations. Approved by Med Figueroa MD on 06/12/2025 10:32 AM Uli Wyman MD have personally reviewed the image(s) and agree withand/or edited the report Finalized by Uil Dinh MD on 06/12/2025 10:47 AM Authorizing ProviderResult TypeResult StatusFahham Bang ZULUAGAIMFreeman FLUOROSCOPY ORDERABLESFinal Result * (ABNORMAL) Bedside Glucose *Place/Obtain serum glucose if >500 per glucometer. (06/12/2025 9:09 AM EDT)ComponentValueRef RangeTest MethodAnalysis Time Performed AtPathologist SignatureBedside Glucose (POC)117(H)65 - 99 mg/dL 06/12/2025 9:14 AM [facility]ORATORYSpecimen (Source)Anatomical Location / LateralityCollection Method / VolumeCollection TimeReceived Time arterial/qzqvmoltu03/21/2025 9:09 AM EDT1 9:14 AM EDT Narrative Authorizing ProviderResult TypeResult StatusEhad Monika MDPOINT OF CARE TEST ORDERABLESFinal ResultPerforming OrganizationAddressCity/State/ZIP CodePhone Number [facility] [address] [place] [address], [place] * (ABNORMAL) Bedside Glucose *Place/Obtain serum glucose if >500 per glucometer. (06/12/2025 6:27 AM EDT)ComponentValueRef RangeTest MethodAnalysis Time Performed AtPathologist SignatureBedside Glucose (POC)145(H)65 - 99 mg/dL 06/12/2025 6:29 AM [facility]ORATORYSpecimen (Source)Anatomical Location / LateralityCollection Method / VolumeCollection TimeReceived Time arterial/iflwvnjds84/21/2025 6:27 AM EDT1 6:29 AM EDT Narrative Authorizing ProviderResult TypeResult StatusEhad Monika MDPOINT OF CARE TEST ORDERABLESFinal ResultPerforming OrganizationAddressCity/State/ZIP CodePhone Number [facility] [address] [place] [address], * X-ray abdomen NG Tube placement 1 view (06/12/2025 4:43 AM EDT)Anatomical RegionLateralityModalityBody, AbdomenN/AComputed RadiographySpecimen (Source) Anatomical Location / LateralityCollection Method / VolumeCollection Time Received Time06/12/2025 4:46 AM EDT Narrative 06/12/2025 4:47 AM EDT XR ABD NG TUBE PLACEMENT 1 VIEW Clinical history:NG placement ??enteric catheter placement and verification Comparison: 06/09/2025 Impression: Enteric catheter tip in the region of the distal stomach. Finalized by Peter Sraabia MD on 06/12/2025 4:47 AM Procedure Note Peter Sarabia MD - 06/12/2025 XR ABD NG TUBE PLACEMENT 1 VIEW Clinical history:NG placement enteric catheter placement andverification Comparison: 06/09/2025 Impression: Enteric catheter tip in the region of the distal stomach. Finalized by Peter Sarabia MD on 06/12/2025 4:47 AM Authorizing ProviderResult TypeResult Antonella WASSERMAN DIAGNOSTIC IMAGING ORDERABLESFinal Result * Ionized calcium (06/12/2025 4:24 AM EDT)ComponentValueRef RangeTest Method Analysis TimePerformed AtPathologist SignatureIONIZED CALCIUM - ICAN5.14.5 - 5.3 mg/dL06/12/2025 6:04 AM [facility] LABORATORYSpecimen (Source)Anatomical Location / LateralityCollection Method / VolumeCollection TimeReceived TimeBloodVenous blood / UnknownVenipuncture / Vcaswau3806/12/2025 4:24 AM EDT1 5:27 AM EDT Narrative Authorizing ProviderResult TypeResult StatusRamy A Erinn ZULUAGALAB BLOOD ORDERABLES Final ResultPerforming OrganizationAddressCity/State/ZIP CodePhone Number [address] [place] [address], * Phosphorus (06/12/2025 4:24 AM EDT)ComponentValueRef RangeTest MethodAnalysis TimePerformed AtPathologist SignaturePHOSPHORUS4.62.4 - 4.9 mg/dL06/12/2025 6:09 AM [facility] LABORATORYSpecimen (Source)Anatomical Location / LateralityCollection Method / VolumeCollection TimeReceived Time BloodVenous blood / UnknownVenipuncture / Qmqclyp7106/12/2025 4:24 AM EDT 06/12/2025 5:30 AM EDT Narrative Authorizing ProviderResult TypeResult StatusRamy A Erinn ZULUAGALAB BLOOD ORDERABLES Final ResultPerforming OrganizationAddressCity/State/ZIP CodePhone Number [address] [place] [address], * Magnesium (06/12/2025 4:24 AM EDT)ComponentValueRef RangeTest MethodAnalysis TimePerformed AtPathologist SignatureMAGNESIUM2.61.8 - 2.6 mg/dL06/12/2025 6:09 AM [facility] LABORATORYSpecimen (Source)Anatomical Location / LateralityCollection Method / VolumeCollection TimeReceived Time BloodVenous blood / UnknownVenipuncture / Dkqfkrx6406/12/2025 4:24 AM EDT 06/12/2025 5:30 AM EDT Narrative Authorizing ProviderResult TypeResult StatusRamy A Erinn MDLAB BLOOD ORDERABLES Final ResultPerforming OrganizationAddressCity/State/ZIP CodePhone Number [facility] [address] [place] [address] [address] [place] [address], * CBC auto differential (06/12/2025 4:24 AM EDT)ComponentValueRef RangeTest MethodAnalysis TimePerformed AtPathologist SignatureWBC5.04 - 11 x10E9/L 06/12/2025 5:49 AM [facility] LABORATORYRBC Count4.414.1 - 5.7 X10E12/L1 5:49 AM [facility] Plmcqjdqxl77.913 - 17 g/dL06/12/2025 5:49 AM [facility] ZXQWDUGYGNTlnuzseaup62.739 - 50 %06/12/2025 5:49 AM [facility] GQQMXTFKMTYHK8962 - 100 fL06/12/2025 5:49 AM [facility] JGAWHXGLIEYXK65.627 - 34 pg06/12/2025 5:49 AM [facility] EZGYRZFCDHDSBI10.232 - 36 g/dL06/12/2025 5:49 AM [facility] ZGXAOMLGZTXFJ51.111.5 - 15 %06/12/2025 5:49 AM [facility] LABORATORYPlatelet Wmeyk551521 - 450 X10E9/L1 5:49 AM EDT [facility]ORATORYMPV8.67 - 12 fL06/12/2025 5:49 AM [facility] LABORATORYNeutrophils %54.3%06/12/2025 5:49 AM [facility] LABORATORYLymphocytes %28.2%06/12/2025 5:49 AM [facility] LABORATORYMonocytes %10.3%06/12/2025 5:49 AM [facility] LABORATORYEosinophils %5.7%06/12/2025 5:49 AM [facility] LABORATORYBasophils %1.5%06/12/2025 5:49 AM [facility] LABORATORYNeutrophils Absolute (A)2.71.5 - 6.6 10*3/uL 06/12/2025 5:49 AM [facility] LABORATORYLymphocytes Absolute 1.41.0 - 3.5 10*3/uL06/12/2025 5:49 AM [facility] Monocytes Absolute0.50.0 - 0.9 10*3/uL06/12/2025 5:49 AM [facility] LABORATORYEosinophils Absolute0.30.0 - 0.4 10*3/uL06/12/2025 5:49 AM [facility] LABORATORYBasophils Absolute0.10.0 - 0.2 10*3/uL 06/12/2025 5:49 AM [facility] LABORATORYDifferential Type AUTOMATED AOUCXTINSTLT59/21/2025 5:49 AM [facility] LABORATORYSpecimen (Source)Anatomical Location / LateralityCollection Method / VolumeCollection TimeReceived TimeBloodVenous blood / UnknownVenipuncture / Ymlkbku9306/12/2025 4:24 AM EDT1 5:30 AM EDT Narrative Authorizing ProviderResult TypeResult StatusFahpipe BARNES BLOOD ORDERABLES Final ResultPerforming OrganizationAddressCity/State/ZIP CodePhone Number [facility] [address] [place] [address], * (ABNORMAL) Comprehensive metabolic panel (06/12/2025 4:24 AM EDT)Component ValueRef RangeTest MethodAnalysis TimePerformed AtPathologist SignatureSODIUM 894506 - 146 mmol/L1 6:09 AM [facility] POTASSIUM4.63.5 - 5.0 mmol/L1 6:09 AM [facility] IOLFTWSFBIKNQDXRWY11131 - 109 mmol/L1 6:09 AM [facility] LABORATORYCARBON GMWOAQB9102 - 32 mmol/L1 6:09 AM [facility] LABORATORYANION FLV390 - 15 mmol/L1 6:09 AM EDT [facility]ORATORYBLOOD UREA HOJWQBKD23(H)5 - 27 mg/dL 06/12/2025 6:09 AM [facility] LABORATORYCREATININE1.62(H)0.60 - 1.30 mg/dL06/12/2025 6:09 AM [facility] LABORATORYComment: METHOD TRACEABLE TO IDKS HGRGMDVNDHZFWJI174(H)65 - 99 mg/dL06/12/2025 6:09 AM [facility] LABORATORYCALCIUM9.98.5 - 10.5 mg/dL06/12/2025 6:09 AM [facility] LABORATORYTOTAL PROTEIN6.76.0 - 8.0 g/dL 06/12/2025 6:09 AM [facility] LABORATORYALBUMIN3.63.2 - 5.3 g/dL06/12/2025 6:09 AM [facility] LABORATORYALKALINE IYUJHLMRFXG8452 - 130 U/L1 6:09 AM [facility] ODAYCSWUVNLVD95<=41 U/L1 6:09 AM [facility] CFIHNGIKKRDIP88<=40 U/L1 6:09 AM [facility] LABORATORYBILIRUBIN,TOTAL0.50.3 - 1.2 mg/dL06/12/2025 6:09 AM [facility] LABORATORYEGFR Non-Race Nifhrwirq33(L)>=60 ml/min/1.73sq.m 06/12/2025 6:09 AM [facility] LABORATORYComment: Reported eGFR is based on the CKD-EPI 2020 equation that does not use a race coefficient. Specimen (Source)Anatomical Location / LateralityCollection Method / Volume Collection TimeReceived TimeBloodVenous blood / UnknownVenipuncture / Unknown 06/12/2025 4:24 AM EDT1 5:30 AM EDT Narrative Authorizing ProviderResult TypeResult StatusFamatthew BARNES BLOOD ORDERABLES Final ResultPerforming OrganizationAddressCity/State/ZIP CodePhone Number [facility] [address] [place] [address], * (ABNORMAL) B-type natriuretic peptide (06/12/2025 4:24 AM EDT)ComponentValue Ref RangeTest MethodAnalysis TimePerformed AtPathologist BaoklskpiCYF664(H) <=100 pg/mL06/12/2025 6:27 AM [facility] LABORATORYSpecimen (Source)Anatomical Location / LateralityCollection Method / VolumeCollection TimeReceived TimeBloodVenous blood / UnknownVenipuncture / Iacwtqu3806/12/2025 4:24 AM EDT1 5:30 AM EDT Narrative Authorizing ProviderResult TypeResult StatusAdan BARNES BLOOD ORDERABLES Final ResultPerforming OrganizationAddressCity/State/ZIP CodePhone Number [facility] [address] [place] [address], [place] [phone] * (ABNORMAL) Bedside Glucose *Place/Obtain serum glucose if >500 per glucometer. (06/12/2025 4:18 AM EDT)ComponentValueRef RangeTest MethodAnalysis Time Performed AtPathologist SignatureBedside Glucose (POC)204(H)65 - 99 mg/dL 06/12/2025 6:29 AM [facility] LABORATORYSpecimen (Source)Anatomical Location / LateralityCollection Method / VolumeCollection TimeReceived Time arterial/qccipiftt03/21/2025 4:18 AM EDT1 6:29 AM EDT Narrative Authorizing ProviderResult TypeResult StatusEhad Monika MDPOINT OF CARE TEST ORDERABLESFinal ResultPerforming OrganizationAddressCity/State/ZIP CodePhone Number [facility] [address] [place] [address], [place] * (ABNORMAL) Bedside Glucose *Place/Obtain serum glucose if >500 per glucometer. (06/11/2025 11:29PM EDT)ComponentValueRef RangeTest MethodAnalysis Time Performed AtPathologist SignatureBedside Glucose (POC)194(H)65 - 99 mg/dL 06/11/2025 11:34 PM [facility] LABORATORYSpecimen (Source)Anatomical Location / LateralityCollection Method / VolumeCollection TimeReceived Time arterial/czkducfcu46/20/2025 11:29 PM EDT1 11:34 PM EDT Narrative Authorizing ProviderResult TypeResult StatusEhad Monika MDPOINT OF CARE TEST ORDERABLESFinal ResultPerforming OrganizationAddJefferson [facility] Hospital/State/ZIP CodePhone Number [facility] [address] [place] [address], * (ABNORMAL) Bedside Glucose *Place/Obtain serum glucose if >500 per glucometer. (06/11/2025 7:38 PM EDT)ComponentValueRef RangeTest MethodAnalysis Time Performed AtPathologist SignatureBedside Glucose (POC)261(H)65 - 99 mg/dL 06/11/2025 11:34 PM [facility] LABORATORYSpecimen (Source)Anatomical Location / LateralityCollection Method / VolumeCollection TimeReceived Time arterial/izzzzsala23/20/2025 7:38 PM EDT1 11:34 PM EDT Narrative Authorizing ProviderResult TypeResult StatusEhad Monika MDPOINT OF CARE TEST ORDERABLESFinal ResultPerforming OrganizationAddJefferson [facility] Hospital/State/ZIP CodePhone Number [facility] [address] [place] [address], [place] * (ABNORMAL) Bedside Glucose *Place/Obtain serum glucose if >500 per glucometer. (06/11/2025 3:14 PM EDT)ComponentValueRef RangeTest MethodAnalysis Time Performed AtPathologist SignatureBedside Glucose (POC)330(H)65 - 99 mg/dL 06/11/2025 7:38 PM [facility] LABORATORYSpecimen (Source)Anatomical Location / LateralityCollection Method / VolumeCollection TimeReceived Time arterial/obvuxyvob03/20/2025 3:14 PM EDT1 7:38 PM EDT Narrative Authorizing ProviderResult TypeResult StatusEhad Monika MDPOINT OF CARE TEST ORDERABLESFinal ResultPerforming OrganizationAddJefferson Abington Hospital/State/[facility] CodePhone [facility] [address] [place] [address], [place] * Ionized magnesium (06/11/2025 1:10 PM EDT)ComponentValueRef RangeTest Method Analysis TimePerformed AtPathologist SignatureIONIZED MAGNESIUM0.700.45 - 0.74 mmol/L1 1:43 PM [facility] LABORATORYSpecimen (Source)Anatomical Location / LateralityCollection Method / VolumeCollection TimeReceived TimeBloodVenous blood / UnknownVenipuncture / Vfhmqle8406/11/2025 1:10 PM EDT1 1:23 PM EDT Narrative Authorizing ProviderResult TypeResult StatusEhad Monika MDLAB BLOOD ORDERABLES Final ResultPerforming OrganizationAddressCity/State/ZIP CodePhone Number [facility] [address] [place] [address], [place] [phone] * (ABNORMAL) Bedside Glucose *Place/Obtain serum glucose if >500 per glucometer. (06/11/2025 12:26PM EDT)ComponentValueRef RangeTest MethodAnalysis Time Performed AtPathologist SignatureBedside Glucose (POC)340(H)65 - 99 mg/dL 06/11/2025 12:32 PM [facility] LABORATORYSpecimen (Source)Anatomical Location / LateralityCollection Method / VolumeCollection TimeReceived Time arterial/cvqjswbwa25/20/2025 12:26 PM EDT1 12:32 PM EDT Narrative Authorizing ProviderResult TypeResult StatusEhad Monika MDPOINT OF CARE TEST ORDERABLESFinal ResultPerforming OrganizationAddressCity/State/ZIP CodePhone Number [facility] [address] [place] [address], * Clinical Pathology Review (06/11/2025 11:31 AM EDT)ComponentValueRef RangeTest MethodAnalysis TimePerformed AtPathologist SignatureCase ReportClinical Pathology Report ? Case: [id number] ? Authorizing Provider: ??Ed Ortiz MD ?Collected: ? 06/11/2025 1131 ? Ordering Location: ? [facility] ??Received: ?06/11/2025 1131 ? - GEN 8 ICU ? Pathologist: ? Basilio Garrido MD ? Specimen: ?Blood, Venous ? 06/13/2025 8:09 PM [facility] LABORATORYFinal DiagnosisNo monoclonal protein identified. 06/13/2025 8:09 PM [facility] at 2009 EDTSpecimen (Source)Anatomical Location / LateralityCollection Method / VolumeCollection TimeReceived Time Venous blood / Caphxrt7006/11/2025 11:31 AM EDT1 11:31 AM EDT Narrative Authorizing ProviderResult TypeResult StatusMohamed Luciana Ortiz MD PATHOLOGY/CYTOLOGY ORDERABLESFinal ResultPerforming OrganizationAddress City/State/ZIP CodePhone Number [facility] [address] [place] [address], * (ABNORMAL) Bedside Glucose *Place/Obtain serum glucose if >500 per glucometer. (06/11/2025 8:33 AM EDT)ComponentValueRef RangeTest MethodAnalysis Time Performed AtPathologist SignatureBedside Glucose (POC)328(H)65 - 99 mg/dL 06/11/2025 8:39 AM [facility] LABORATORYSpecimen (Source)Anatomical Location / LateralityCollection Method / VolumeCollection TimeReceived Time arterial/ggxnjouhf00/20/2025 8:33 AM EDT1 8:39 AM EDT Narrative Authorizing ProviderResult TypeResult StatusEhad Monika MDPOINT OF CARE TEST ORDERABLESFinal ResultPerforming OrganizationAddressCity/State/ZIP CodePhone Number [facility] [address] [place] [address], [place] * CT brain without contrast (06/11/2025 6:40 AM EDT)Anatomical RegionLaterality ModalityNeuro, Head, Head and Neck, Neuro CoveraN/AComputed TomographySpecimen (Source)Anatomical Location / LateralityCollection Method / VolumeCollection TimeReceived Time06/11/2025 7:11 AM EDT Narrative 06/11/2025 7:13 AM EDT STUDY: CT HEAD WITHOUT CONTRAST CLINICAL HISTORY: Intraparenchymal hematoma COMPARISON: 06/05/2025 TECHNIQUE: CT head was performed without contrast utilizing axial reconstruction with images reviewed in bone and brain windows. Automated exposure control was utilized. FINDINGS: Focal hemorrhage involving the right thalamus with intraventricular extension. On today's exam there is significantly less. Blood within the ventricles. Ventricular size stable. The hemorrhage is approximately 2.4 cm in similar to the previous exam. No new hemorrhages. Motion artifact present. No midline shift nor mass effect. Chronic microvascular ischemic changes present. Chronic inflammation involving the sphenoid sinus. IMPRESSION: * ?? Stable hemorrhage involving the right thalamus. There is persistent but reduced intraventricular blood as compared to previous exam. No new nor advancing abnormality All CT scans at this facility use dose modulation, iterative reconstruction, and/or weight based dosing when appropriate to reduce radiation dose to as low as reasonably achievable. Finalized by Lucas Salvador MD on 06/11/2025 7:13 AM Procedure Note Lucas Salvador MD - 06/11/2025 STUDY: CT HEAD WITHOUT CONTRAST CLINICAL HISTORY: Intraparenchymal hematoma COMPARISON: 06/05/2025 TECHNIQUE: CT head was performed without contrast utilizing axialreconstruction with images reviewed in bone and brain windows. Automatedexposure control was utilized. FINDINGS: Focal hemorrhage involving the right thalamus with intraventricularextension. On today's exam there is significantly less. Blood within theventricles. Ventricular size stable. The hemorrhage is approximately 2.4cm in similar to the previous exam. No new hemorrhages. Motion artifactpresent. No midline shift nor mass effect. Chronic microvascular ischemic changes present. Chronic inflammation involving the sphenoid sinus. IMPRESSION: * Stable hemorrhage involving the right thalamus. There is persistentbut reduced intraventricular blood as compared to previous exam. No newnor advancing abnormality All CT scans at this facility use dose modulation, iterativereconstruction, and/or weight based dosing when appropriate to reduceradiation dose to as low as reasonably achievable. Finalized by Lucas Salvador MD on 06/11/2025 7:13 AM Authorizing ProviderResult TypeResult StatusFaC[facility] Clinic [facility] ORDERABLES Final Result * X-ray chest 1 view (06/11/2025 3:47 AM EDT)Anatomical RegionLateralityModality Body, ChestN/AComputed RadiographySpecimen (Source)Anatomical Location / LateralityCollection Method / VolumeCollection TimeReceived Time06/11/2025 3:51 AM EDT Narrative 06/11/2025 3:53 AM EDT CHEST ONE VIEW COMPARISON: 06/09/2025 HISTORY: Pulmonary edema. Impression: 1. Enteric catheter extends at least to the diaphragm, with the discs catheter not well-visualized due to body habitus. 2. Stable cardiomediastinal silhouette. Pulmonary vasculature is now within normal limits. 2. No evidence for a pneumothorax, focal consolidation, or pleural effusion. Finalized by Mason Berry MD on 06/11/2025 3:53 AM Procedure Note Mason Berry MD - 06/11/2025 CHEST ONE VIEW COMPARISON: 06/09/2025 HISTORY: Pulmonary edema. Impression: 1. Enteric catheter extends at least to the diaphragm, with the discscatheter not well-visualized due to body habitus. 2. Stable cardiomediastinal silhouette. Pulmonary vasculature is nowwithin normal limits. 2. No evidence for a pneumothorax, focal consolidation, or pleuraleffusion. Finalized by Mason Berry MD on 06/11/2025 3:53 AM Authorizing ProviderResult TypeResult StatusRamy Luciana [facility] ORDERABLESFinal Result * Ionized calcium (06/11/2025 3:05 AM EDT)ComponentValueRef RangeTest Method Analysis TimePerformed AtPathologist SignatureIONIZED CALCIUM - ICAN4.54.5 - 5.3 mg/dL06/11/2025 4:25 AM [facility] LABORATORYSpecimen (Source)Anatomical Location / LateralityCollection Method / VolumeCollection TimeReceived TimeBloodVenous blood / UnknownVenipuncture / Ymebjqn6806/11/2025 3:05 AM EDT1 3:59 AM EDT Narrative Authorizing ProviderResult TypeResult StatusRamy A Erinn BARNES BLOOD ORDERABLES Final ResultPerforming OrganizationAddressCity/State/ZIP CodePhone Number [facility] [address] [place] [address], * Phosphorus (06/11/2025 3:05 AM EDT)ComponentValueRef RangeTest MethodAnalysis TimePerformed AtPathologist SignaturePHOSPHORUS4.82.4 - 4.9 mg/dL06/11/2025 4:27 AM [facility] LABORATORYSpecimen (Source)Anatomical Location / LateralityCollection Method / VolumeCollection TimeReceived Time BloodVenous blood / UnknownVenipuncture / Hfkjwyq9106/11/2025 3:05 AM EDT 06/11/2025 4:02 AM EDT Narrative Authorizing ProviderResult TypeResult StatusRamy A Erinn BARNES BLOOD ORDERABLES Final ResultPerforming OrganizationAddressCity/State/ZIP CodePhone Number [facility] [address] [place] [address], * Magnesium (06/11/2025 3:05 AM EDT)ComponentValueRef RangeTest MethodAnalysis TimePerformed AtPathologist SignatureMAGNESIUM1.91.8 - 2.6 mg/dL06/11/2025 4:27 AM [facility] LABORATORYSpecimen (Source)Anatomical Location / LateralityCollection Method / VolumeCollection TimeReceived Time BloodVenous blood / UnknownVenipuncture / Xfhubsc1606/11/2025 3:05 AM EDT 06/11/2025 4:02 AM EDT Narrative Authorizing ProviderResult TypeResult StatusRamy Luciana BARNES BLOOD ORDERABLES Final ResultPerforming OrganizationAddressCity/State/ZIP CodePhone Number [facility] [address] [place] [address], * CBC auto differential (06/11/2025 3:05 AM EDT)ComponentValueRef RangeTest MethodAnalysis TimePerformed AtPathologist SignatureWBC5.44 - 11 x10E9/L 06/11/2025 4:14 AM [facility] LABORATORYRBC Count4.224.1 - 5.7 X10E12/L1 4:14 AM [facility] Agzyorkyix03.313 - 17 g/dL06/11/2025 4:14 AM [facility] MCSZHASLKBOasrhcrzqz31.239 - 50 %06/11/2025 4:14 AM [facility] LTQZSTHCXFRXB8599 - 100 fL06/11/2025 4:14 AM [facility] WAVWFGYANMCLV24.627 - 34 pg06/11/2025 4:14 AM [facility] XSOMCVISTMTTKT55.032 - 36 g/dL06/11/2025 4:14 AM [facility] FMJZTJEPAZARS24.111.5 - 15 %06/11/2025 4:14 AM [facility] LABORATORYPlatelet Bslra558845 - 450 X10E9/L1 4:14 AM EDT [facility] LABORATORYMPV8.27 - 12 fL06/11/2025 4:14 AM [facility] LABORATORYNeutrophils %52.3%06/11/2025 4:14 AM [facility] LABORATORYLymphocytes %28.7%06/11/2025 4:14 AM [facility] LABORATORYMonocytes %11.0%06/11/2025 4:14 AM [facility] LABORATORYEosinophils %6.0%06/11/2025 4:14 AM [facility] LABORATORYBasophils %2.0%06/11/2025 4:14 AM [facility] LABORATORYNeutrophils Absolute (A)2.81.5 - 6.6 10*3/uL 06/11/2025 4:14 AM [facility] LABORATORYLymphocytes Absolute 1.51.0 - 3.5 10*3/uL06/11/2025 4:14 AM [facility] Monocytes Absolute0.60.0 - 0.9 10*3/uL06/11/2025 4:14 AM [facility] LABORATORYEosinophils Absolute0.30.0 - 0.4 10*3/uL06/11/2025 4:14 AM [facility] LABORATORYBasophils Absolute0.10.0 - 0.2 10*3/uL 06/11/2025 4:14 AM [facility] LABORATORYDifferential Type AUTOMATED SOERZZLMGCCD75/20/2025 4:14 AM [facility] LABORATORYSpecimen (Source)Anatomical Location / LateralityCollection Method / VolumeCollection TimeReceived TimeBloodVenous blood / UnknownVenipuncture / Dkohmxd1506/11/2025 3:05 AM EDT1 4:02 AM EDT Narrative Authorizing ProviderResult TypeResult StatusFahpipe BARNES BLOOD ORDERABLES Final ResultPerforming OrganizationAddressCity/State/ZIP CodePhone Number [facility] [address] [place] [address], [place] [phone] * (ABNORMAL) Comprehensive metabolic panel (06/11/2025 3:05 AM EDT)Component ValueRef RangeTest MethodAnalysis TimePerformed AtPathologist SignatureSODIUM 068080 - 146 mmol/L1 4:27 AM [facility] POTASSIUM4.33.5 - 5.0 mmol/L1 4:27 AM [facility] WWATTMSGXYNNJVXXNR80021 - 109 mmol/L1 4:27 AM [facility] LABORATORYCARBON AJBVZAX0132 - 32 mmol/L1 4:27 AM [facility] LABORATORYANION XWX044 - 15 mmol/L1 4:27 AM [facility] LABORATORYBLOOD UREA BVPSIYNZ911 - 27 mg/dL06/11/2025 4:27 AM [facility] LABORATORYCREATININE1.84(H)0.60 - 1.30 mg/dL06/11/2025 4:27 AM [facility] LABORATORYComment:METHOD TRACEABLE TO IDKS IFNPBBQRAXURAPD376(H)65 - 99 mg/dL06/11/2025 4:27 AM [facility] LABORATORYCALCIUM9.38.5 - 10.5 mg/dL06/11/2025 4:27 AM [facility] LABORATORYTOTAL PROTEIN6.76.0 - 8.0 g/dL 06/11/2025 4:27 AM [facility] LABORATORYALBUMIN3.63.2 - 5.3 g/dL06/11/2025 4:27 AM [facility] LABORATORYALKALINE JYWLPUCSJWD2991 - 130 U/L1 4:27 AM [facility] RJLPHIIAAEIKS01<=41 U/L1 4:27 AM [facility] LABORATORYALT7<=40 U/L1 4:27 AM [facility] LABORATORYBILIRUBIN,TOTAL0.40.3 - 1.2 mg/dL06/11/2025 4:27 AM [facility] LABORATORYEGFR Non-Race Wwwkgniow15(L)>=60 ml/min/1.73sq.m 06/11/2025 4:27 AM [facility] LABORATORYComment: Reported eGFR is based on the CKD-EPI 2020 equation that does not use a race coefficient. Specimen (Source)Anatomical Location / LateralityCollection Method / Volume Collection TimeReceived TimeBloodVenous blood / UnknownVenipuncture / Unknown 06/11/2025 3:05 AM EDT1 4:02 AM EDT Narrative Authorizing ProviderResult TypeResult StatusAlphonse Cuenca MDLAB BLOOD ORDERABLES Final ResultPerforming OrganizationAddressCity/State/ZIP CodePhone Number [facility] [address] [place] [address], * (ABNORMAL) B-type natriuretic peptide (06/11/2025 3:05 AM EDT)ComponentValue Ref RangeTest MethodAnalysis TimePerformed AtPathologist TcskjyihaYQW520(H) <=100 pg/mL06/11/2025 4:51 AM [facility] LABORATORYSpecimen (Source)Anatomical Location / LateralityCollection Method / VolumeCollection TimeReceived TimeBloodVenous blood / UnknownVenipuncture / Kgcqhtt0906/11/2025 3:05 AM EDT1 4:02 AM EDT Narrative Authorizing ProviderResult TypeResult StatusAdan Plasencia MDLAB BLOOD ORDERABLES Final ResultPerforming OrganizationAddressty/State/ZIP CodePhone Number [facility] [address] [place] [address], * Troponin I, High Sensitivity 1 Hour (06/10/2025 3:33 AM EDT)ComponentValueRef RangeTest MethodAnalysis TimePerformed AtPathologist SignatureTROPONIN I, HIGH JFYCMSPYNAG14<21 ng/L1 4:15 AM [facility] Specimen (Source)Anatomical Location / LateralityCollection Method / Volume Collection TimeReceived TimeBloodVenous blood / UnknownVenipuncture / Unknown 06/10/2025 3:33 AM EDT1 3:42 AM EDT Narrative Authorizing ProviderResult TypeResult StatusMargo Drake MDLAB BLOOD ORDERABLESFinal ResultPerforming OrganizationAddressty/State/ZIP CodePhone Number [facility] [address] [place] [address], * Troponin I, High Sensitivity 0 Hour (06/10/2025 2:52 AM EDT)ComponentValueRef RangeTest MethodAnalysis TimePerformed AtPathologist SignatureTROPONIN I, HIGH BAXGQNELDZD38<21 ng/L1 3:35 AM [facility] Specimen (Source)Anatomical Location / LateralityCollection Method / Volume Collection TimeReceived TimeBloodVenous blood / UnknownVenipuncture / Unknown 06/10/2025 2:52 AM EDT1 3:03 AM EDT Narrative Authorizing ProviderResult TypeResult StatusMargo Drake [facility] BLOOD ORDERABLESFinal ResultPerforming OrganizationAddressCity/State/ZIP CodePhone Number [facility] [address] [place] [address], * Ionized calcium (06/10/2025 2:52 AM EDT)ComponentValueRef RangeTest Method Analysis TimePerformed AtPathologist SignatureIONIZED CALCIUM - ICAN5.04.5 - 5.3 mg/dL06/10/2025 3:24 AM [facility] LABORATORYSpecimen (Source)Anatomical Location / LateralityCollection Method / VolumeCollection TimeReceived TimeBloodVenous blood / UnknownVenipuncture / Ppcxbsm4106/10/2025 2:52 AM EDT1 3:03 AM EDT Narrative Authorizing ProviderResult TypeResult StatusAdan Plasencia [facility] BLOOD ORDERABLES Final ResultPerforming OrganizationAddressCity/State/ZIP CodePhone Number [facility] [address] [place] [address], * Phosphorus (06/10/2025 2:52 AM EDT)ComponentValueRef RangeTest MethodAnalysis TimePerformed AtPathologist SignaturePHOSPHORUS4.72.4 - 4.9 mg/dL06/10/2025 3:31 AM [facility] LABORATORYSpecimen (Source)Anatomical Location / LateralityCollection Method / VolumeCollection TimeReceived Time BloodVenous blood / UnknownVenipuncture / Oreqhhd8006/10/2025 2:52 AM EDT 06/10/2025 3:03 AM EDT Narrative Authorizing ProviderResult TypeResult StatusRamy Luciana BARNES BLOOD ORDERABLES Final ResultPerforming OrganizationAddressCity/State/ZIP CodePhone Number [facility] [address] [place] [address], * Magnesium (06/10/2025 2:52 AM EDT)ComponentValueRef RangeTest MethodAnalysis TimePerformed AtPathologist SignatureMAGNESIUM2.01.8 - 2.6 mg/dL06/10/2025 3:31 AM [facility] LABORATORYSpecimen (Source)Anatomical Location / LateralityCollection Method / VolumeCollection TimeReceived Time BloodVenous blood / UnknownVenipuncture / Fszklra4006/10/2025 2:52 AM EDT 06/10/2025 3:03 AM EDT Narrative Authorizing ProviderResult TypeResult StatusRamy Luciana BARNES BLOOD ORDERABLES Final ResultPerforming OrganizationAddressCity/State/ZIP CodePhone Number [facility] [address] [place] [address], * (ABNORMAL) CBC auto differential (06/10/2025 2:52 AM EDT)ComponentValueRef RangeTest MethodAnalysis TimePerformed AtPathologist SignatureWBC4.94 - 11 x10E9/L1 3:06 AM [facility] LABORATORYRBC Count4.17 4.1 - 5.7 X10E12/L1 3:06 AM [facility] Jvvpyvzpqt25.113 - 17 g/dL06/10/2025 3:06 AM [facility] VTNXZVQLGVQmmxpzwafd12.5(L)39 - 50 %06/10/2025 3:06 AM [facility] REPJYKZHABIYO8277 - 100 fL06/10/2025 3:06 AM [facility] CSOLTBKTHWNUW91.627 - 34 pg06/10/2025 3:06 AM [facility] YKRZAOWPKDVWMR30.132 - 36 g/dL06/10/2025 3:06 AM [facility] CSKYTFZHWSDFX94.311.5 - 15 %06/10/2025 3:06 AM [facility] LABORATORYPlatelet Liwfp818496 - 450 X10E9/L1 3:06 AM [facility] LABORATORYMPV7.47 - 12 fL06/10/2025 3:06 AM [facility] LABORATORYNeutrophils %57.2%06/10/2025 3:06 AM [facility] LABORATORYLymphocytes %26.4%06/10/2025 3:06 AM [facility] LABORATORYMonocytes %11.0%06/10/2025 3:06 AM [facility] LABORATORYEosinophils %4.3%06/10/2025 3:06 AM [facility] LABORATORYBasophils %1.1%06/10/2025 3:06 AM [facility] LABORATORYNeutrophils Absolute (A)2.81.5 - 6.6 10*3/uL 06/10/2025 3:06 AM [facility] LABORATORYLymphocytes Absolute 1.31.0 - 3.5 10*3/uL06/10/2025 3:06 AM [facility] Monocytes Absolute0.50.0 - 0.9 10*3/uL06/10/2025 3:06 AM [facility] LABORATORYEosinophils Absolute0.20.0 - 0.4 10*3/uL06/10/2025 3:06 AM [facility] LABORATORYBasophils Absolute0.10.0 - 0.2 10*3/uL 06/10/2025 3:06 AM [facility] LABORATORYDifferential Type AUTOMATED HANNDGRTUYFY13/19/2025 3:06 AM [facility] LABORATORYSpecimen (Source)Anatomical Location / LateralityCollection Method / VolumeCollection TimeReceived TimeBloodVenous blood / UnknownVenipuncture / Kdgjfzy44/ 2:52 AM EDT1 3:03 AM EDT Narrative Authorizing ProviderResult TypeResult StatusFamatthew BARNES BLOOD ORDERABLES Final ResultPerforming OrganizationAddressCity/State/ZIP CodePhone Number [facility] [address] [place] [address], * (ABNORMAL) Comprehensive metabolic panel (06/10/2025 2:52 AM EDT)Component ValueRef RangeTest MethodAnalysis TimePerformed AtPathologist SignatureSODIUM 147(H)134 - 146 mmol/L1 3:31 AM [facility] LABORATORYPOTASSIUM3.93.5 - 5.0 mmol/L1 3:31 AM [facility] LPFQAVUWFMTHNAFGFA02500 - 109 mmol/L1 3:31 AM [facility] LABORATORYCARBON KMGRXED6759 - 32 mmol/L1 3:31 AM [facility] LABORATORYANION OQD855 - 15 mmol/L1 3:31 AM [facility] LABORATORYBLOOD UREA OQFVZXTU544 - 27 mg/dL 06/10/2025 3:31 AM [facility] LABORATORYCREATININE1.63(H)0.60 - 1.30 mg/dL06/10/2025 3:31 AM [facility] LABORATORYComment: METHOD TRACEABLE TO IDMS FLZOJKGEAKYAGCQ403(H)65 - 99 mg/dL06/10/2025 3:31 AM [facility] LABORATORYCALCIUM9.48.5 - 10.5 mg/dL06/10/2025 3:31 AM [facility] LABORATORYTOTAL PROTEIN6.46.0 - 8.0 g/dL 06/10/2025 3:31 AM [facility] LABORATORYALBUMIN3.43.2 - 5.3 g/dL06/10/2025 3:31 AM [facility] LABORATORYALKALINE BVCBRPTWTWA3908 - 130 U/L1 3:31 AM [facility] GRDDHWXZFRRBZ78<=41 U/L1 3:31 AM [facility] RYLYNKROQXCSZ29<=40 U/L1 3:31 AM [facility] LABORATORYBILIRUBIN,TOTAL0.50.3 - 1.2 mg/dL06/10/2025 3:31 AM [facility] LABORATORYEGFR Non-Race Dwdwxpyok44(L)>=60 ml/min/1.73sq.m 06/10/2025 3:31 AM [facility] LABORATORYComment: Reported eGFR is based on the CKD-EPI 2020 equation that does not use a race coefficient. Specimen (Source)Anatomical Location / LateralityCollection Method / Volume Collection TimeReceived TimeBloodVenous blood / UnknownVenipuncture / Unknown 06/10/2025 2:52 AM EDT1 3:03 AM EDT Narrative Authorizing ProviderResult TypeResult StatusAlphonse BARNES BLOOD ORDERABLES Final ResultPerforming OrganizationAddressCity/State/ZIP CodePhone Number [facility] [address] [place] [address], * (ABNORMAL) B-type natriuretic peptide (06/10/2025 2:52 AM EDT)ComponentValue Ref RangeTest MethodAnalysis TimePerformed AtPathologist UrrxayhqnEBC792(H) <=100 pg/mL06/10/2025 3:38 AM [facility] LABORATORYSpecimen (Source)Anatomical Location / LateralityCollection Method / VolumeCollection TimeReceived TimeBloodVenous blood / UnknownVenipuncture / Ncuarpc1106/10/2025 2:52 AM EDT1 3:03 AM EDT Narrative Authorizing ProviderResult TypeResult StatusAdan BARNES BLOOD ORDERABLES Final ResultPerforming OrganizationAddressCity/State/ZIP CodePhone Number [facility] [address] [place] [address], * ECG 12 lead (06/10/2025 1:28 AM EDT)Specimen (Source)Anatomical Location / LateralityCollection Method / VolumeCollection TimeReceived Time06/10/2025 1:28 AM EDT Narrative TRACEMASTERVUE - 06/10/2025 9:22 AM EDT Authorizing ProviderResult TypeResult StatusMargo Drake MDECG ORDERABLES Final ResultPerforming OrganizationAddressCity/State/ZIP CodePhone Number [place] * X-ray chest 1 view (06/09/2025 11:46 AM EDT)Anatomical RegionLaterality ModalityBody, ChestN/AComputed RadiographySpecimen (Source)Anatomical Location / LateralityCollection Method / VolumeCollection TimeReceived Time06/09/2025 12:37 PM EDT Narrative 06/09/2025 12:40 PM EDT Clinical History: Hypoxia. Portable Upright chest: 06/09/2025 Comparison: 06/07/2025 Findings: A single portable view of the chest was obtained. The enteric tube extends through the mediastinum to the upper abdomen, the tip beyond the field of visualization. There is no acute pulmonary infiltrate. The aorta is tortuous with mild passive prominent centrally. There is no pneumothorax. IMPRESSION: Aortic tortuosity with no definite change. Mild vascular prominence with no peripheral infiltrate. Finalized by Gianni Levy MD on 06/09/2025 12:40 PM Procedure Note Gianni Levy MD - 06/09/2025 Clinical History: Hypoxia. Portable Upright chest: 06/09/2025 Comparison: 06/07/2025 Findings: A single portable view of the chest was obtained. The enteric tube extends through the mediastinum to the upper abdomen, the tip beyond the field of visualization. There is no acute pulmonary infiltrate. The aorta istortuous with mild passive prominent centrally. There is nopneumothorax. IMPRESSION: Aortic tortuosity with no definite change. Mild vascular prominence with no peripheral infiltrate. Finalized by Gianni Levy MD on 06/09/2025 12:40 PM Authorizing ProviderResult TypeResult StatusRampreston WASSERMAN DIAGNOSTIC IMAGING ORDERABLESFinal Result * X-ray abdomen NG Tube placement 1 view (06/09/2025 4:52 AM EDT)Anatomical RegionLateralityModalityBody, AbdomenN/AComputed RadiographySpecimen (Source) Anatomical Location / LateralityCollection Method / VolumeCollection Time Received Time06/09/2025 4:53 AM EDT Narrative 06/09/2025 4:53 AM EDT EXAM: XR ABD NG TUBE PLACEMENT 1 VIEW CLINICAL INFORMATION: NG placement. COMPARISON: 06/08/2025 FINDINGS: There is a feeding tube with the tip extending into the stomach. The visualized lungs are well aerated. There are no focal consolidations. IMPRESSION: Feeding tube tip in stomach. Finalized by Alexis Sánchez MD on 06/09/2025 4:53 AM Procedure Note Alexis Sánchez MD - 06/09/2025 EXAM: XR ABD NG TUBE PLACEMENT 1 VIEW CLINICAL INFORMATION: NG placement. COMPARISON: 06/08/2025 FINDINGS: There is a feeding tube with the tip extending into the stomach. The visualized lungs are well aerated. There are no focalconsolidations. IMPRESSION: Feeding tube tip in stomach. Finalized by Alexis Sánchez MD on 06/09/2025 4:53 AM Authorizing ProviderResult TypeResult StatusEhad Monika MDIMG DIAGNOSTIC IMAGING ORDERABLESFinal Result * (ABNORMAL) CBC auto differential (06/09/2025 3:16 AM EDT)ComponentValueRef RangeTest MethodAnalysis TimePerformed AtPathologist SignatureWBC5.14 - 11 x10E9/L1 4:24 AM [facility] LABORATORYRBC Count4.02 (L)4.1 - 5.7 X10E12/L1 4:24 AM [facility] Xcftyaatyw26.8(L)13 - 17 g/dL06/09/2025 4:24 AM [facility] HCSFFWHPKSJstdqvtusa15.2(L)39 - 50 %06/09/2025 4:24 AM [facility] EBVYGIEBBRGAU8256 - 100 fL06/09/2025 4:24 AM [facility] USLOZHFDBQJJQ35.727 - 34 pg06/09/2025 4:24 AM [facility] RAOCRASMHWOSSZ21.332 - 36 g/dL06/09/2025 4:24 AM [facility] MWQLSSLSTRDXM81.711.5 - 15 %06/09/2025 4:24 AM [facility] LABORATORYPlatelet Nonnh501456 - 450 X10E9/L1 4:24 AM [facility] LABORATORYMPV7.77 - 12 fL06/09/2025 4:24 AM [facility] LABORATORYNeutrophils %63.1%06/09/2025 4:24 AM [facility] LABORATORYLymphocytes %21.3%06/09/2025 4:24 AM [facility] LABORATORYMonocytes %11.2%06/09/2025 4:24 AM [facility] LABORATORYEosinophils %3.4%06/09/2025 4:24 AM [facility] LABORATORYBasophils %1.0%06/09/2025 4:24 AM [facility] LABORATORYNeutrophils Absolute (A)3.21.5 - 6.6 10*3/uL 06/09/2025 4:24 AM [facility] LABORATORYLymphocytes Absolute 1.11.0 - 3.5 10*3/uL06/09/2025 4:24 AM [facility] Monocytes Absolute0.60.0 - 0.9 10*3/uL06/09/2025 4:24 AM [facility] LABORATORYEosinophils Absolute0.20.0 - 0.4 10*3/uL06/09/2025 4:24 AM [facility] LABORATORYBasophils Absolute0.00.0 - 0.2 10*3/uL 06/09/2025 4:24 AM [facility] LABORATORYDifferential Type AUTOMATED JKDAIBGYVEKM22/18/2025 4:24 AM [facility] LABORATORYSpecimen (Source)Anatomical Location / LateralityCollection Method / VolumeCollection TimeReceived TimeBloodVenous blood / UnknownVenipuncture / Hmuerlz0806/09/2025 3:16 AM EDT1 4:11 AM EDT Narrative Authorizing ProviderResult TypeResult StatusFamatthew BARNES BLOOD ORDERABLES Final ResultPerforming OrganizationAddressCity/State/ZIP CodePhone Number [facility] [address] [place] [address], * (ABNORMAL) Comprehensive metabolic panel (06/09/2025 3:16 AM EDT)Component ValueRef RangeTest MethodAnalysis TimePerformed AtPathologist SignatureSODIUM 823704 - 146 mmol/L1 4:43 AM [facility] POTASSIUM3.93.5 - 5.0 mmol/L1 4:43 AM [facility] PKLLDYEPMKEMRDZZHP964(H)98 - 109 mmol/L1 4:43 AM [facility] LABORATORYCARBON URSDVSA6438 - 32 mmol/L1 4:43 AM [facility] LABORATORYANION GAP85 - 15 mmol/L1 4:43 AM EDT [facility]ORYBLOOD UREA KBKCPFOJ176 - 27 mg/dL06/09/2025 4:43 AM [facility] LABORATORYCREATININE1.47(H)0.60 - 1.30 mg/dL06/09/2025 4:43 AM [facility] LABORATORYComment:METHOD TRACEABLE TO IDMS VZEKBFXBNBGGVVR637(H)65 - 99 mg/dL06/09/2025 4:43 AM EDT [facility]ORYCALCIUM9.08.5 - 10.5 mg/dL06/09/2025 4:43 AM [facility] LABORATORYTOTAL PROTEIN5.8(L)6.0 - 8.0 g/dL 06/09/2025 4:43 AM [facility] LABORATORYALBUMIN3.23.2 - 5.3 g/dL06/09/2025 4:43 AM [facility] LABORATORYALKALINE NNXQVWNBNRJ1859 - 130 U/L1 4:43 AM [facility] SUKJFHNUWMRAS31<=41 U/L1 4:43 AM [facility] LABORATORYALT6<=40 U/L1 4:43 AM [facility] LABORATORYBILIRUBIN,TOTAL0.50.3 - 1.2 mg/dL06/09/2025 4:43 AM [facility] LABORATORYEGFR Non-Race Zjgfkxzaj93(L)>=60 ml/min/1.73sq.m 06/09/2025 4:43 AM [facility] LABORATORYComment: Reported eGFR is based on the CKD-EPI 2020 equation that does not use a race coefficient. Specimen (Source)Anatomical Location / LateralityCollection Method / Volume Collection TimeReceived TimeBloodVenous blood / UnknownVenipuncture / Unknown 06/09/2025 3:16 AM EDT1 4:11 AM EDT Narrative Authorizing ProviderResult TypeResult StatusFamatthew BARNES BLOOD ORDERABLES Final ResultPerforming OrganizationAddressCity/State/ZIP CodePhone Number [facility] [address] [place] [address], * Vas venous duplex lwr bilateral (06/08/2025 5:51 PM EDT)Anatomical Region LateralityModalityVascularBilateralUltrasoundSpecimen (Source)Anatomical Location / LateralityCollection Method / VolumeCollection TimeReceived Time 06/08/2025 6:03 PM EDT Narrative 06/09/2025 1:04 PM EDT Right: Portable lower extremity deep vein thrombosis (DVT) exam performed. Common femoral, femoral, popliteal and deep calf muscle veins are compressible without intraluminal content. Spontaneous pulsatile common femoral, femoral and popliteal spectral Doppler signals. ??Evaluation of superficial veins was not performed. Left: Portable lower extremity deep vein thrombosis (DVT) exam performed. ?? Minimally dilated ?? partially compressible ??popliteal, ??posterior tibial ??and ??peroneal ??veins with ??isoechoic ??intraluminal content andspontaneous spectral Doppler signals. Common femoral, femoral ??and deep calf muscle veins are compressible without intraluminal content.??Spontaneous puldatile ??common femoral, and femoral ??spectral Doppler signals. ??Evaluation of superficial veins was not performed. General: In-patient, bedside examination. Conclusions: RIGHT:NO EVIDENCE of deep vein thrombosis (DVT) of the lower extremity. ??LEFT:CHRONICpost thrombotic popliteal venous disease. CHRONIC post thrombotic tibioperoneal venous disease. ? Recommendations: Any questions prior to finalization, please call the reading physician during normal business hours at the phone number beside their name. Procedure Note Alejandro Galarza MD - 06/09/2025 Right: Portable lower extremity deep vein thrombosis (DVT) exam performed.Common femoral, femoral, popliteal and deep calf muscle veins arecompressible without intraluminal content. Spontaneous pulsatile commonfemoral, femoral and popliteal spectral Doppler signals. Evaluation of superficial veins was not performed. Left: Portable lower extremity deep vein thrombosis (DVT) exam performed. Minimally dilated partially compressible popliteal, posterior tibialand peroneal veins with isoechoic intraluminal content andspontaneousspectral Doppler signals. Common femoral, femoral and deep calf muscle veins are compressiblewithout intraluminal content. Spontaneous puldatile common femoral, andfemoral spectral Doppler signals. Evaluation of superficial veins wasnot performed. General: In-patient, bedside examination. Conclusions: RIGHT:NO EVIDENCE of deep vein thrombosis (DVT) of the lower extremity. LEFT:CHRONIC post thrombotic popliteal venous disease. CHRONICpost thrombotic tibioperoneal venous disease. Recommendations: Any questions prior to finalization, please call thereading physician during normal business hours at the phone number besidetheir name. Authorizing ProviderResult TypeResult StatusOlubode Jonathan Leighlucianamaxime [facility] VASCULAR ORDERABLESEdited Result - Final * Echo complete W/ contrast (06/08/2025 2:02 PM EDT)ComponentValueRef RangeTest MethodAnalysis TimePerformed AtPathologist SignatureLVOT stroke .40ml EYBQPISIL4969 - 44 %XCELERALVIDd4.708.34 - 11.59 cmXCELERALVIDs3.204.80 - 7.27 cmXCELERAIVS1.300.6 - 1.1 cmXCELERAPW1.300.6 - 1.1 cmXCELERALVOT diameter2.00 cmXCELERATDI6.96cm/sXCELERAMV TDI E' (medial)6.42cm/sXCELERALA Volume Index 30.6mL/t8LFZNCOSR/A ratio0.87XCELERAE wave deceleration gkwv606.00msecXCELERA MV Peak E Usu600.00cm/sXCELERAMV Peak A Wss066.00cm/sXCELERALA size2.90cm XCELERAAortic root3.90cmXCELERALA tmifwv54.21hl5BBUTYABMQDOO9.08cmXCELERAAV peak wim817.00cm/sXCELERALVOT peak vel1.31m/sXCELERAAV VTI23.20cmXCELERALVOT peak VTI24.00cmXCELERAAV mean gradient5.00mmHgXCELERAAV peak gradient8.41mmHg XCELERAAV valve area3.25XCELERAValve area - Index1.3XCELERAMV pressure 1/2 time75.00msXCELERAMV valve area p 1/2 method2.48va5TJKGNJHFM peak gradient3.16 mmHgXCELERALV ESV A2C63.40mLXCELERALV ESV A4C75.80mLXCELERALV RWT 2D55.32 XCELERAAV Velocity Ratio1.03XCELERALeft Ventricle Evoo411.406479451473379x XCELERAInterventricular Septum Diastolic Thickness by 1F64liGOBTHSCLW area13.1 ma9HEMGSXPVvqbrzsdh aorta3.70cmXCELERAAo asc z-score3.46cmXCELERARV diastolic dimension (basal)34.5mmXCELERAEst. RA fsnivjfz2ndHwYDKVQMEGTVBSO-5.85XCELERA ZLVIDD-7.38XCELERAEnergy loss index28.06XCELERAAnatomical RegionLaterality ModalityChestN/AUltrasoundSpecimen (Source)Anatomical Location / Laterality Collection Method / VolumeCollection TimeReceived Time Narrative 06/08/2025 4:36 PM EDT Left Ventricle: Left ventricle appears normal in size. Systolic function is normal with an ejection fraction of 55-60%. Left Ventricle Left ventricle appears normal in size. There is mild increased wall thickness/hypertrophy. Systolicfunction is normal with an ejection fraction of 55-60%. No segmental wall motion abnormalities. Unable to assess diastolic function due to mitral annular calcification. Lateral E' is 6.96 cm/s. Medial E' is 6.42 cm/s. Right Ventricle Right ventricular size appears normal. The right ventricular basal diameter is 34.5 mm. Systolic function is normal. Normal tricuspid annular plane systolic excursion. Left Atrium Left atrium is normal in size. Left atrium volume index is normal. The left atrial volume index is 30.6 mL/m2. Right Atrium Right atrium is normal in size. The right atrial area is 13.1 cm2. IVC/SVC The right atrial pressure is estimated at 3 mmHg. Mitral Valve Mitral valve structure is normal. There is mild annular calcification. There is no regurgitation orstenosis. Tricuspid Valve Tricuspid valve appears to be normal. There is trace regurgitation. There is no evidence of tricuspid valve stenosis. Insufficient regurgitant jet to assess right ventricular systolic pressure. RVSP is based on RA pressure of 3 mmHg. Aortic Valve The aortic valve is trileaflet. The leaflets are mildly thickened and exhibit normal excursion. There is no regurgitation or stenosis. Pulmonic Valve Pulmonic valve structure is grossly normal. There is no regurgitation or stenosis. The peak gradient is 3.16 mmHg. Ascending Aorta The aortic root is mildly dilated. Pericardium There is no pericardial effusion. Study Details A complete echo was performed using complete 2D, color flow Doppler and spectral Doppler. During the study the apical, parasternal, subcostal and suprasternal views were captured. Definity study was performed. The study had technical difficulties. The study was difficult due to patient's unable to lay left lateral. Patient was restrained and unable to follow commands. Authorizing ProviderResult TypeResult StatusAhmed Luciana Butt [facility] ECHO ORDERABLESFinal Result * X-ray abdomen NG Tube placement 1 view (06/08/2025 12:44 PM EDT)Anatomical RegionLateralityModalityBody, AbdomenN/AComputed RadiographySpecimen (Source) Anatomical Location / LateralityCollection Method / VolumeCollection Time Received Time06/08/2025 12:46 PM EDT Narrative 06/08/2025 12:47 PM EDT XR ABD NG TUBE PLACEMENT 1 VIEW Clinical history:ng placement ??enteric catheter placement and verification Comparison: 06/08/2025 Impression: Enteric catheter tip in the expected location of the proximal stomach. Finalized by Peter Sarabia MD on 06/08/2025 12:47 PM Procedure Note Peter Sarabia MD - 06/08/2025 XR ABD NG TUBE PLACEMENT 1 VIEW Clinical history:ng placement enteric catheter placement andverification Comparison: 06/08/2025 Impression: Enteric catheter tip in the expected location of the proximal stomach. Finalized by Peter Sarabia MD on 06/08/2025 12:47 PM Authorizing ProviderResult TypeResult StatusSyed Angel Patel MDIMFreeman DIAGNOSTIC IMAGING ORDERABLESFinal Result * CBC auto differential (06/08/2025 2:49 AM EDT)ComponentValueRef RangeTest MethodAnalysis TimePerformed AtPathologist SignatureWBC5.84 - 11 x10E9/L 06/08/2025 4:10 AM [facility] LABORATORYRBC Count4.214.1 - 5.7 X10E12/L1 4:10 AM [facility] Sqhaquwfpd88.313 - 17 g/dL06/08/2025 4:10 AM [facility] CJPUZFWJMBLgicrbtgsn15.039 - 50 %06/08/2025 4:10 AM [facility] IDEKXLGXBQRYG2071 - 100 fL06/08/2025 4:10 AM [facility] TCZKSWBAXXFAS43.727 - 34 pg06/08/2025 4:10 AM [facility] YTFREJIAEACDYC64.232 - 36 g/dL06/08/2025 4:10 AM [facility] ZVRZCKCEDQPRN32.611.5 - 15 %06/08/2025 4:10 AM [facility] LABORATORYPlatelet Qwtos458386 - 450 X10E9/L1 4:10 AM EDT [facility]ORYMPV7.37 - 12 fL06/08/2025 4:10 AM [facility] LABORATORYNeutrophils %63.1%06/08/2025 4:10 AM [facility] LABORATORYLymphocytes %21.8%06/08/2025 4:10 AM [facility] LABORATORYMonocytes %11.6%06/08/2025 4:10 AM [facility] LABORATORYEosinophils %2.9%06/08/2025 4:10 AM [facility] LABORATORYBasophils %0.6%06/08/2025 4:10 AM [facility] LABORATORYNeutrophils Absolute (A)3.71.5 - 6.6 10*3/uL 06/08/2025 4:10 AM [facility] LABORATORYLymphocytes Absolute 1.31.0 - 3.5 10*3/uL06/08/2025 4:10 AM [facility] Monocytes Absolute0.70.0 - 0.9 10*3/uL06/08/2025 4:10 AM [facility] LABORATORYEosinophils Absolute0.20.0 - 0.4 10*3/uL06/08/2025 4:10 AM [facility] LABORATORYBasophils Absolute0.00.0 - 0.2 10*3/uL 06/08/2025 4:10 AM [facility] LABORATORYDifferential Type AUTOMATED MCAJNCAZUPXO94/17/2025 4:10 AM [facility] LABORATORYSpecimen (Source)Anatomical Location / LateralityCollection Method / VolumeCollection TimeReceived TimeBloodVenous blood / UnknownVenipuncture / Kicjjfs6306/08/2025 2:49 AM EDT1 3:53 AM EDT Narrative Authorizing ProviderResult TypeResult StatusFamatthew BARNES BLOOD ORDERABLES Final ResultPerforming OrganizationAddressCity/State/ZIP CodePhone Number [facility] [address] [place] [address], [place] [phone] * (ABNORMAL) Comprehensive metabolic panel (06/08/2025 2:49 AM EDT)Component ValueRef RangeTest MethodAnalysis TimePerformed AtPathologist SignatureSODIUM 649871 - 146 mmol/L1 4:36 AM [facility] POTASSIUM3.63.5 - 5.0 mmol/L1 4:36 AM [facility] LABORATORYComment:R-Specimen moderately hemolyzed, results increasedCHLORIDE 111(H)98 - 109 mmol/L1 4:36 AM [facility] CARBON GLUCNTD6146 - 32 mmol/L1 4:36 AM [facility] LABORATORYANION GAP75 - 15 mmol/L1 4:36 AM [facility] LABORATORYBLOOD UREA NNXACGZG611 - 27 mg/dL06/08/2025 4:36 AM [facility] LABORATORYCREATININE1.43(H)0.60 - 1.30 mg/dL06/08/2025 4:36 AM [facility] LABORATORYComment:METHOD TRACEABLE TO IDMS FOFKWVKQRICOYTY722(H)65 - 99 mg/dL06/08/2025 4:36 AM [facility] LABORATORYCALCIUM9.08.5 - 10.5 mg/dL06/08/2025 4:36 AM [facility] LABORATORYTOTAL PROTEIN6.16.0 - 8.0 g/dL06/08/2025 4:36 AM [facility] LABORATORYALBUMIN3.33.2 - 5.3 g/dL06/08/2025 4:36 AM [facility] LABORATORYALKALINE FTOZPVCNZYX0920 - 130 U/L 06/08/2025 4:36 AM [facility] BPFBXSENNFINJ90<=41 U/L 06/08/2025 4:36 AM [facility] LABORATORYALT8<=40 U/L 06/08/2025 4:36 AM [facility] LABORATORYBILIRUBIN,TOTAL0.60.3 - 1.2 mg/dL06/08/2025 4:36 AM [facility] LABORATORYEGFR Non- Race Aivymmjfu55(L)>=60 ml/min/1.73sq.m1 4:36 AM [facility] LABORATORYComment: Reported eGFR is based on the CKD-EPI 2020 equation that does not use a race coefficient. Specimen (Source)Anatomical Location / LateralityCollection Method / Volume Collection TimeReceived TimeBloodVenous blood / UnknownVenipuncture / Unknown 06/08/2025 2:49 AM EDT1 3:53 AM EDT Narrative Authorizing ProviderResult TypeResult StatusFamatthew BARNES BLOOD ORDERABLES Final ResultPerforming OrganizationAddressCity/State/ZIP CodePhone Number [facility] [address] [place] [address], [place] [phone] * CK Total (06/08/2025 2:49 AM EDT)ComponentValueRef RangeTest MethodAnalysis TimePerformed AtPathologist UstiqfnvcNLJ48273 - 195 U/L1 4:36 AM EDT [facility]ATORYSpecimen (Source)Anatomical Location / LateralityCollection Method / VolumeCollection TimeReceived TimeBloodVenous blood / UnknownVenipuncture / Dqqqyyc5506/08/2025 2:49 AM EDT1 3:53 AM EDT Narrative Authorizing ProviderResult TypeResult StatusMojose BARNES BLOOD ORDERABLESFinal ResultPerforming OrganizationAddressCity/State/ZIP CodePhone Number [facility] [address] [place] [address], [place] [phone] * X-ray abdomen NG Tube placement 1 view (06/08/2025 2:38 AM EDT)Anatomical RegionLateralityModalityBody, AbdomenN/AComputed RadiographySpecimen (Source) Anatomical Location / LateralityCollection Method / VolumeCollection Time Received Time06/08/2025 2:55 AM EDT Narrative 06/08/2025 2:56 AM EDT History: NG tube placement Exam/Technique: ??Supine views of the abdomen were obtained. Comparison: ??06/07/2025 Findings: ??A feeding tube is again seen with its tip just distal to the gastroesophageal junction.Advancement further the stomach is recommended. The visualized portions of the bowel gas pattern are nonspecific. IMPRESSION: ??Feeding tube has its tip just distal to the gastroesophageal junction and advancementfurther into the stomach is recommended. ?? Finalized by Raghu Villegas MD on 06/08/2025 2:56 AM Procedure Note Raghu Villegas MD - 06/08/2025 History: NG tube placement Exam/Technique: Supine views of the abdomen were obtained. Comparison: 06/07/2025 Findings: A feeding tube is again seen with its tip just distal to the gastroesophageal junction. Advancement further the stomach is recommended.The visualized portions of the bowel gas pattern are nonspecific. IMPRESSION: Feeding tube has its tip just distal to the gastroesophagealjunction and advancement further into the stomach is recommended. Finalized by Raghu Villegas MD on 06/08/2025 2:56 AM Authorizing ProviderResult TypeResult StatusEhad Monika MDIMG DIAGNOSTIC IMAGING ORDERABLESFinal Result * (ABNORMAL) Urinalysis (06/07/2025 10:47 PM EDT)ComponentValueRef RangeTest MethodAnalysis TimePerformed AtPathologist SignatureCOLORRed(A)Yellow 06/07/2025 11:23 PM [facility] LABORATORYTURBIDITYHazy(A) Clear06/07/2025 11:23 PM [facility] LABORATORYSPECIFIC GRAVITY1.0131.003 - 1.1013406/07/2025 11:23 PM [facility] GKATLOGHKMPUHDVZOJsdpigcoZphbboxh51/16/2025 11:23 PM [facility] LABORATORYPH,URINE7.05.0 - 8.510 11:23 PM [facility] LABORATORYLEUKOCYTE ESTERASETrace(A)Zrmduzch90/16/2025 11:23 PM EDT [facility] IINHEUXJSLIRDVIQM629 mg/dL(A)Rlnmyyns34/16/2025 11:23 PM [facility] LABORATORYKETONES (URINE)NegativeNegative 06/07/2025 11:23 PM [facility] LABORATORYUROBILINOGEN<1.1 eu/dL<1.1 eu/dL06/07/2025 11:23 PM [facility] BILIRUBIN (URINE)PkbvkvoxWzbaokth42/16/2025 11:23 PM [facility] LABORATORYBLOOD/HGBLarge(A)Qjzxdbhn25/16/2025 11:23 PM [facility] LABORATORYMUCOUSPresent(A)None06/07/2025 11:23 PM [facility] LABORATORYR.B.CELLS>720(H)0 - 11:23 PM [facility] LABORATORYW.B.CELLS00 - 510 11:23 PM [facility] LABORATORYGLUCOSE (URINE)500 mg/dL(A)Wgmofedd23/16/2025 11:23 PM [facility] LABORATORYSpecimen (Source)Anatomical Location / LateralityCollection Method / VolumeCollection TimeReceived Time Urine (Urine, Indwelling Catheter)06/07/2025 10:47 PM EDT1 11:03 PM EDT Narrative Authorizing ProviderResult TypeResult StatusMoeliecer Whaley MDURINE ORDERABLES Final ResultPerforming OrganizationAddressCity/State/ZIP CodePhone Number [facility] [address] [place] [address], * PST TOP (06/07/2025 8:02 PM EDT)ComponentValueRef RangeTest MethodAnalysis TimePerformed AtPathologist SignatureExtra TubeAuto Kfyvkyph96/16/2025 10:02 PM [facility] LABORATORYSpecimen (Source)Anatomical Location / LateralityCollection Method / VolumeCollection TimeReceived TimeBloodVenous blood / Nwamnvu5606/07/2025 8:02 PM EDT1 8:16 PM EDT Narrative Authorizing ProviderResult TypeResult StatusPatricia BARNES BLOOD ORDERABLES Final ResultPerforming OrganizationAddressCity/State/ZIP CodePhone Number [facility] [address] [place] [address], * Dilute Samia's Viper Venom Confirmation (06/07/2025 8:00 PM EDT)Specimen (Source)Anatomical Location / LateralityCollection Method / VolumeCollection TimeReceived TimeBloodVenous blood / UnknownVenipuncture / Dzczoer2806/07/2025 8:00 PM EDT1 8:15 PM EDT Narrative Authorizing ProviderResult TypeResult StatusOlubdarline Alex [facility] BLOOD ORDERABLESFinal ResultPerforming OrganizationAddressCity/State/ZIP CodePhone Number [facility] [address] [place] [address], * (ABNORMAL) Hemoglobin and hematocrit, blood (06/07/2025 8:00 PM EDT)Component ValueRef RangeTest MethodAnalysis TimePerformed AtPathologist Signature Vdhupanazx40.113 - 17 g/dL06/08/2025 3:47 AM [facility] YUHDAPYWQDEdwejqqzoq39.1(L)39 - 50 %06/08/2025 3:47 AM [facility] LABORATORYSpecimen (Source)Anatomical Location / LateralityCollection Method / VolumeCollection TimeReceived TimeBloodVenous blood / Unknown Venipuncture / Volordt9606/07/2025 8:00 PM EDT1 8:15 PM EDT Narrative Authorizing ProviderResult TypeResult StatusAmee Whaley [facility] BLOOD ORDERABLESFinal ResultPerforming OrganizationAddressCity/State/ZIP CodePhone Number [facility] [address] [place] [address], * (ABNORMAL) Immunoelectrophoresis for Therapy Monitoring (06/07/2025 8:00 PM EDT)ComponentValueRef RangeTest MethodAnalysis TimePerformed AtPathologist LdwwmnjldKZV22710 - 378 mg/dL06/13/2025 8:15 PM [facility] TAJQQRJGAZJVF964406 - 1,741 mg/dL06/13/2025 8:15 PM [facility] WUBDASRSDETIR28313 - 281 mg/dL06/13/2025 8:15 PM [facility] LABORATORYFREE KAPPA LT CHAINS3.96(H)0.33 - 1.94 mg/dL06/13/2025 8:15 PM [facility] LABORATORYImmune Profile InterpretationSee Pathology Ydjzly0606/13/2025 8:15 PM [facility] LABORATORYFREE LAMBDA LT CHAINS2.65(H)0.57 - 2.63 mg/dL06/13/2025 8:15 PM [facility] LABORATORYFREE JULIENNE/LAMBD RATIO1.490.26 - 1.6506/13/2025 8:15 PM EDT [facility] (Source)Anatomical Location / LateralityCollection Method / VolumeCollection TimeReceived TimeBloodVenous blood / UnknownVenipuncture / Oycdxrk3306/07/2025 8:00 PM EDT1 8:15 PM EDT Narrative Authorizing ProviderResult TypeResult StatusMohamed Luciana Ortiz [facility] BLOOD ORDERABLESFinal ResultPerforming OrganizationAddressCity/State/ZIP CodePhone Number [facility] [address] [place] [address], * Cytoplasmic Neutrophilic Ab (ANCA), S (06/07/2025 8:00 PM EDT)ComponentValue Ref RangeTest MethodAnalysis TimePerformed AtPathologist SignatureC-ANCA TidtgchaBtijibqv21/17/2025 2:44 PM [facility] LABORATORIESP-ANCANegative Slhzfnpd84/17/2025 2:44 PM [facility] LABORATORIESComment: Negative for cANCA and pANCA patterns by immunofluorescence. ADDITIONAL INFORMATION This test was developed and its performance characteristics determined by [facility] in a manner consistent with CLIA requirements. This test has not been cleared or approved by the U.S. Food and Drug Administration. Test Performed by: [facility] - [address] [address] Trout Farmer: Anastasiya Alegria Ph.D.; CLIA# [id number] Specimen (Source)Anatomical Location / LateralityCollection Method / Volume Collection TimeReceived TimeBloodVenous blood / UnknownVenipuncture / Unknown 06/07/2025 8:00 PM EDT1 8:15 PM EDT Narrative Authorizing ProviderResult TypeResult StatusMohamed Luciana Angel [employer] (SM[employer]) LimitedLAB BLOOD ORDERABLESFinal ResultPerforming OrganizationAddressCity/State/ZIP CodePhone Number [facility] [address] [place] [address], * Glomerular basement membrane IgG AB (06/07/2025 8:00 PM EDT)ComponentValueRef RangeTest MethodAnalysis TimePerformed AtPathologist SignatureGBM IGG AB<0.2 <1.0 AI06/07/2025 10:33 PM [facility] LABORATORYSpecimen (Source)Anatomical Location / LateralityCollection Method / VolumeCollection TimeReceived TimeBloodVenous blood / UnknownVenipuncture / Ijfhozs8006/07/2025 8:00 PM EDT1 8:15 PM EDT Narrative Authorizing ProviderResult TypeResult StatusMohamed A [employer] ([employer]B) LimitedLAB BLOOD ORDERABLESFinal ResultPerforming OrganizationAddressCity/State/ZIP CodePhone Number [facility] [address] [place] [address], * (ABNORMAL) Hemoglobin A1c (06/07/2025 8:00 PM EDT)ComponentValueRef RangeTest MethodAnalysis TimePerformed AtPathologist SignatureHEMOGLOBIN A1C8.3(H)4.4 - 5.6 %06/07/2025 8:43 PM [facility] LABORATORYComment: ?ADA Guidelines ?Result ?HgbA1c ? Normal : ? less than 5.7 % ? Prediabetes : ?5.7 % ??to 6.4 % Diabetes : > 6.4 % ?Use with caution in patients with abnormal hemoglobin variants as ??the half-life of red blood cells and in vivo glycation rates are ??affected. EST. AVERAGE PFCLALD378hd/dL06/07/2025 8:43 PM [facility] LABORATORYSpecimen (Source)Anatomical Location / LateralityCollection Method / VolumeCollection TimeReceived TimeBloodVenous blood / UnknownVenipuncture / Jzrvxxh3506/07/2025 8:00 PM EDT1 8:15 PM EDT Narrative Authorizing ProviderResult TypeResult StatusMohamed A Angel ZULUAGALAB BLOOD ORDERABLESFinal ResultPerforming OrganizationAddressCity/State/ZIP CodePhone Number [facility] [address] [place] [address], * (ABNORMAL) Protein electrophoresis, serum (06/07/2025 8:00 PM EDT)Component ValueRef RangeTest MethodAnalysis TimePerformed AtPathologist SignatureTOTAL PROTEIN5.9(L)6.0 - 8.0 g/dL06/11/2025 8:47 AM [facility] LABORATORYALPHA 1 GLOBULIN0.30.1 - 0.4 g/dL06/11/2025 8:47 AM [facility] LABORATORYALPHA 2 GLOBULIN0.60.4 - 1.1 g/dL06/11/2025 8:47 AM [facility] LABORATORYBETA GLOBULIN0.90.5 - 1.2 g/dL 06/11/2025 8:47 AM [facility] LABORATORYGAMMA GLOBULIN0.90.5 - 1.6 g/dL06/11/2025 8:47 AM [facility] LABORATORYProtein Electrophoresis InterpUnremarkable protein distribution, no monoclonal bands 06/11/2025 8:47 AM [facility] LABORATORYAlbumin3.3(L)3.4 - 5.3 g/dL06/11/2025 8:47 AM [facility] LABORATORYSpecimen (Source)Anatomical Location / LateralityCollection Method / VolumeCollection TimeReceived TimeBloodVenous blood / UnknownVenipuncture / Hoaabxm0006/07/2025 8:00 PM EDT1 8:15 PM EDT Narrative Authorizing ProviderResult TypeResult StatusMohamed A Angel Narvii BLOOD ORDERABLESFinal ResultPerforming OrganizationAddressCity/State/ZIP CodePhone Number [facility] [address] [place] [address], * Hepatitis panel, acute (06/07/2025 8:00 PM EDT)ComponentValueRef RangeTest MethodAnalysis TimePerformed AtPathologist SignatureHEPATITIS B SURF AG Umf-BanhkpikHob-Pxklygbv01/16/2025 10:26 PM [facility] LABORATORYHEPATITIS A COQQaw-ScqqkwumLbm-Lfhyqawi59/16/2025 10:26 PM [facility] LABORATORYHEPATITIS B CORE DLRZtp-WcxdlnlfOio-Srgpdjne 06/07/2025 10:26 PM [facility] LABORATORYANTI HCV W/PCR REFLX Mgj-EsfxrzfzYla-Kfbwnnze97/16/2025 10:26 PM [facility] LABORATORYComment: If recent infection suspected, recommend repeat testing (>2 months). Flgmnb-sl-stczqp ratio is <1.0. Specimen (Source)Anatomical Location / LateralityCollection Method / Volume Collection TimeReceived TimeBloodVenous blood / UnknownVenipuncture / Unknown 06/07/2025 8:00 PM EDT1 8:15 PM EDT Narrative Authorizing ProviderResult TypeResult StatusMohamed A Angel Narvii BLOOD ORDERABLESFinal ResultPerforming OrganizationAddressCity/State/ZIP CodePhone Number [facility] [address] [place] [address], [place] [phone] * (ABNORMAL) Complement profile (C3 AND C4) (06/07/2025 8:00 PM EDT)Component ValueRef RangeTest MethodAnalysis TimePerformed AtPathologist Signature COMPLEMENT [id number] - 184 mg/dL06/07/2025 8:50 PM [facility] LABORATORYCOMPLEMENT C453(H)16 - 47 mg/dL06/07/2025 8:50 PM [facility] LABORATORYSpecimen (Source)Anatomical Location / LateralityCollection Method / VolumeCollection TimeReceived TimeBloodVenous blood / Unknown Venipuncture / Pxcxipc8806/07/2025 8:00 PM EDT1 8:15 PM EDT Narrative Authorizing ProviderResult TypeResult StatusMohamed Luciana Ortiz OKLAB BLOOD ORDERABLESFinal ResultPerforming OrganizationAddressCity/State/ZIP CodePhone Number [facility] [address] [place] [address], * Anti cardiolipin AB IgG IgA IgM (06/07/2025 8:00 PM EDT)ComponentValueRef RangeTest MethodAnalysis TimePerformed AtPathologist SignatureACA IGA<2.00.0 - 19.9 APL06/07/2025 9:47 PM [facility] LABORATORYACA IGG<1.6 0.0 - 19.9 GPL1 9:47 PM [facility] LABORATORYACA IGM <1.50.0 - 19.9 MPL06/07/2025 9:47 PM [facility] Specimen (Source)Anatomical Location / LateralityCollection Method / Volume Collection TimeReceived TimeBloodVenous blood / UnknownVenipuncture / Unknown 06/07/2025 8:00 PM EDT1 8:15 PM EDT Narrative Authorizing ProviderResult TypeResult StatusOlubode Jonathan Alex [facility] BLOOD ORDERABLESFinal ResultPerforming OrganizationAddressCity/State/ZIP CodePhone Number [facility] [address] [place] [address], * DRVVT (06/07/2025 8:00 PM EDT)ComponentValueRef RangeTest MethodAnalysis Time Performed AtPathologist SignatureDILUTE SAMIA'S VIPER VENOMNEGATIVE FOR LUPUS ACEAZFBYSXJDL86/20/2025 9:36 AM [facility] Specimen (Source)Anatomical Location / LateralityCollection Method / Volume Collection TimeReceived TimeBloodVenous blood / UnknownVenipuncture / Unknown 06/07/2025 8:00 PM EDT1 8:15 PM EDT Narrative Authorizing ProviderResult TypeResult StatusOlubode Jonathan BARNES BLOOD ORDERABLESFinal ResultPerforming OrganizationAddressCity/State/ZIP CodePhone Number [facility] [address] [place] [address], [place] [phone] * Ultrasound retroperitoneal complete with duplex (06/07/2025 7:22 PM EDT) Anatomical RegionLateralityModalityBodyUltrasoundSpecimen (Source)Anatomical Location / LateralityCollection Method / VolumeCollection TimeReceived Time 06/07/2025 9:23 PM EDT Narrative 06/07/2025 9:30 PM EDT History: ??Acute renal failure Exam/Technique: ??Ultrasound of the kidneys with duplex Doppler. Comparison: ?? Contrast-enhanced CT from 06/04/2025 Findings: ??On the right there is prominent dilatation of the extrarenal pelvis redemonstrated withjust minimal calyceal dilatation. On the left there is very severe renal pelvis dilatation and milddilatation of calyces. No focal renal lesions are displayed on either side with patient body habitus and positioning significantly compromising depiction of the right kidney.. The right kidney measures ??11.2 centimeters in length , and the left kidney 12.7 centimeters. Resistive indices in the right kidney range from 0.57-0.62, and in the left kidney from 0.63-0.69 The urinary bladder is decompressed with a Mayo catheter in place. IMPRESSION: ??Mild right hydronephrosis and mild left hydronephrosis are decreased from the appearance on CT 3 days ago with significant dilatation of both extrarenal pelves remaining. Finalized by Mason Cruz MD on 06/07/2025 9:30 PM Procedure Note Mason Cruz MD - 06/07/2025 History: Acute renal failure Exam/Technique: Ultrasound of the kidneys with duplex Doppler. Comparison: Contrast-enhanced CT from 06/04/2025 Findings: On the right there is prominent dilatation of the extrarenalpelvis redemonstrated with just minimal calyceal dilatation. On the leftthere is very severe renal pelvis dilatation and mild dilatation ofcalyces. No focal renal lesions are displayed on either side with patientbody habitus and positioning significantly compromising depiction of the right kidney..The right kidney measures 11.2 centimeters in length , and the leftkidney 12.7 centimeters. Resistive indices in the right kidney range from 0.57-0.62, and in theleft kidney from 0.63-0.69 The urinary bladder is decompressed with a Mayo catheter in place. IMPRESSION: Mild right hydronephrosis and mild left hydronephrosis aredecreased from the appearance on CT 3 days ago with significant dilatationof both extrarenal pelves remaining. Finalized by Mason Cruz MD on 06/07/2025 9:30 PM Authorizing ProviderResult TypeResult StatusMohamed Luciana Ortiz MDIMFreeman ORDERABLESFinal Result * (ABNORMAL) Urinalysis (06/07/2025 4:21 PM EDT)ComponentValueRef RangeTest MethodAnalysis TimePerformed AtPathologist SignatureCOLORYellowYellow 06/07/2025 7:03 PM [facility] LABORATORYTURBIDITYClearClear 06/07/2025 7:03 PM [facility] LABORATORYSPECIFIC GRAVITY1.015 1.003 - 1.4235106/07/2025 7:03 PM [facility] LABORATORYNITRITE XlhepzrfLlddcstv66/16/2025 7:03 PM [facility] PH,URINE6.55.0 - 8.510 7:03 PM [facility] LEUKOCYTE FFGGNDLPTcjeraevQoqzwpup93/16/2025 7:03 PM [facility] WSOWBQXCTSIBDBXXQ54 mg/dL(A)Ybjqidpv52/16/2025 7:03 PM [facility] LABORATORYKETONES (URINE)VobrnwvlDpuhlgvo98/16/2025 7:03 PM [facility] LABORATORYUROBILINOGEN<1.1 eu/dL<1.1 eu/dL 06/07/2025 7:03 PM [facility] LABORATORYBILIRUBIN (URINE) MppljiwdTboctqef97/16/2025 7:03 PM [facility] BLOOD/HGBSmall(A)Mrnqsjue09/16/2025 7:03 PM [facility] LABORATORYMUCOUSPresent(A)None06/07/2025 7:03 PM [facility] LABORATORYR.B.CELLS20 - 510 7:03 PM [facility] LABORATORYW.B.CELLS20 - 510 7:03 PM [facility] LABORATORYGLUCOSE (URINE)150 mg/dL(A)Umxghbpr40/16/2025 7:03 PM [facility] LABORATORYSpecimen (Source)Anatomical Location / Laterality Collection Method / VolumeCollection TimeReceived TimeUrineUrine / Unknown 06/07/2025 4:21 PM EDT1 5:17 PM EDT Narrative Authorizing ProviderResult TypeResult StatusMohamed Luciana Ortiz MDURINE ORDERABLES Final ResultPerforming OrganizationAddressCity/State/ZIP CodePhone Number [facility] [address] [place] [address], * (ABNORMAL) Protein creat ratio (06/07/2025 4:21 PM EDT)ComponentValueRef Range Test MethodAnalysis TimePerformed AtPathologist SignatureURINE PROTEIN, RANDOM (MG/L)1,120(H)<120 mg/L1 6:31 PM [facility] LABORATORYURINE CREATININE,VOA948.24mg/dL06/07/2025 6:31 PM [facility] LABORATORYU/PRO/SHINGLE INSPECTOR RATIO CALC1.00(H)<=0. 6:31 PM EDT [facility] (Source)Anatomical Location / LateralityCollection Method / VolumeCollection TimeReceived TimeUrineUrine / Dmracwk9006/07/2025 4:21 PM EDT1 5:17 PM EDT Narrative [facility] - 06/07/2025 6:31 PM EDT Nephrotic Syndrome is associated with ratios >3.5 Authorizing ProviderResult TypeResult StatusMohamed Luciana LEWIS ORDERABLES Final ResultPerforming OrganizationAddressCity/State/ZIP CodePhone Number [facility] [address] [place] [address], * (ABNORMAL) Microalbumin - Albumin: Creatinine Urine Ratio (06/07/2025 4:21 PM EDT)ComponentValueRef RangeTest MethodAnalysis TimePerformed AtPathologist SignatureURINE CREATININE,TBH458.24mg/dL06/07/2025 6:31 PM [facility] LABORATORYMALB/CREAT TCNML406.9(H)0.0 - 30.0 mg/g1 6:31 PM [facility] LABORATORYMICROALBUMIN, URINE74.4(H)0.0 - 1.9 mg/dL06/07/2025 6:31 PM [facility] LABORATORYSpecimen (Source)Anatomical Location / LateralityCollection Method / VolumeCollection TimeReceived TimeUrineUrine / Liydxgj3906/07/2025 4:21 PM EDT1 5:17 PM EDT Narrative Authorizing ProviderResult TypeResult StatusMohamed Luciana LEWIS ORDERABLES Final ResultPerforming OrganizationAddressCity/State/ZIP CodePhone Number [facility] [address] [place] [address], [place] [phone] * Sodium, urine, random (06/07/2025 4:21 PM EDT)ComponentValueRef RangeTest MethodAnalysis TimePerformed AtPathologist SignatureURINE SODIUM,BEJYWI46 mmol/L1 6:31 PM [facility] LABORATORYSpecimen (Source)Anatomical Location / LateralityCollection Method / VolumeCollection TimeReceived TimeUrineUrine / Hmvquzn3906/07/2025 4:21 PM EDT1 5:17 PM EDT Narrative Authorizing ProviderResult TypeResult StatusMohamed Luciana LEWIS ORDERABLES Final ResultPerforming OrganizationAddressCity/State/ZIP CodePhone Number [facility] [address] [place] [address], * Urine Creatinine,random (06/07/2025 4:21 PM EDT)ComponentValueRef RangeTest MethodAnalysis TimePerformed AtPathologist SignatureURINE CREATININE,UWE748.24 mg/dL06/07/2025 6:31 PM [facility] LABORATORYSpecimen (Source)Anatomical Location / LateralityCollection Method / VolumeCollection TimeReceived TimeUrineUrine / Gjinazp0506/07/2025 4:21 PM EDT1 5:17 PM EDT Narrative Authorizing ProviderResult TypeResult StatusMohamed Luciana LEWIS ORDERABLES Final ResultPerforming OrganizationAddressCity/State/ZIP CodePhone Number [facility] [address] [place] [address], * X-ray abdomen NG Tube placement 1 view (06/07/2025 2:28 PM EDT)Anatomical RegionLateralityModalityBody, AbdomenN/AComputed RadiographySpecimen (Source) Anatomical Location / LateralityCollection Method / VolumeCollection Time Received Time06/07/2025 2:31 PM EDT Narrative 06/07/2025 2:32 PM EDT Portable upright single view abdomen dated 06/07/2025 at 2:28 PM INDICATION: NG tube placement. FINDINGS: Comparison is 06/06/2015. Feeding tube tip at the GE junction. IMPRESSION: 1. Feeding tube tip at the GE junction. Finalized by Mamie Nazario MD on 06/07/2025 2:32 PM Procedure Note Mamie Nazario MD - 06/07/2025 Portable upright single view abdomen dated 06/07/2025 at 2:28 PM INDICATION: NG tube placement. FINDINGS: Comparison is 06/06/2015. Feeding tube tip at the GE junction. IMPRESSION: 1. Feeding tube tip at the GE junction. Finalized by Mamie Nazario MD on 06/07/2025 2:32 PM Authorizing ProviderResult TypeResult StatusSyed Jagdeep [facility] ORDERABLESFinal Result * Rheumatoid factor (06/07/2025 12:27 PM EDT)ComponentValueRef RangeTest Method Analysis TimePerformed AtPathologist SignatureRHEUMATOID FACTOR<10<20 IU/mL 06/07/2025 3:08 PM [facility] LABORATORYSpecimen (Source) Anatomical Location / LateralityCollection Method / VolumeCollection Time Received TimeBloodVenous blood / UnknownVenipuncture / Dvaumlr8306/07/2025 12:27 PM EDT1 12:38 PM EDT Narrative Authorizing ProviderResult TypeResult StatusMohamed Luciana Ortiz MDLAB BLOOD ORDERABLESFinal ResultPerforming OrganizationAddressCity/State/ZIP CodePhone Number [facility] [address] [place] [address], * LUIZA Screen w/ Reflex (06/07/2025 12:27 PM EDT)ComponentValueRef RangeTest MethodAnalysis TimePerformed AtPathologist SignatureANA SCREEN W/REFLEX NlkfkcacOuafdvnu64/16/2025 6:34 PM [facility] Specimen (Source)Anatomical Location / LateralityCollection Method / Volume Collection TimeReceived TimeBloodVenous blood / UnknownVenipuncture / Unknown 06/07/2025 12:27 PM EDT1 12:38 PM EDT Narrative [facility] - 06/07/2025 6:34 PM EDT Testing performed using multiplex flow immunoassay. Eleven difference antigens associated with systemic autoimmunie diseases (dsDNA, Sm, Sm/MERCHANDISE FOR RESALE PURCHASING AGENT, MERCHANDISE FOR RESALE PURCHASING AGENT, Chromatin, SSA, SSB, Maxime-1, Sc170, Ribo P, Centromere B) are included in this sreening tests. Authorizing ProviderResult TypeResult StatusMohamed Luciana BARNES BLOOD ORDERABLESFinal ResultPerforming OrganizationAddressCity/State/ZIP CodePhone Number [facility] [address] [place] [address], * HIV 1&2 AB/AG Screen (P24 AG) (06/07/2025 12:27 PM EDT)ComponentValueRef Range Test MethodAnalysis TimePerformed AtPathologist SignatureHIV 1 AND 2 AB/AG KHALUPLdi-GsgafwtrSij-Nvxhtdke77/16/2025 5:19 PM [facility] LABORATORYSpecimen (Source)Anatomical Location / LateralityCollection Method / VolumeCollection TimeReceived TimeBloodVenous blood / UnknownVenipuncture / Akzjrrk0706/07/2025 12:27 PM EDT1 12:38 PM EDT Narrative [facility] - 06/07/2025 5:19 PM EDT This information has been disclosed to you from confidential records protected from disclosure by state law. You shall make no further disclosure of this information without the specific, written and informed release of the individual to whom it pertains, or as otherwise permitted by state law. A general authorization for the release of medical or other information is not sufficient for the purpose of the release of HIV test results or diagnoses. Authorizing ProviderResult TypeResult StatusMohamed A cocone BLOOD ORDERABLESFinal ResultPerforming OrganizationAddressCity/State/ZIP CodePhone Number [facility] [address] [place] [id number], * DNA double-stranded (dsDNA) Abs (06/07/2025 12:27 PM EDT)ComponentValueRef RangeTest MethodAnalysis TimePerformed AtPathologist SignatureDouble Stranded DNA Ab<1<5 IU/ML06/07/2025 6:34 PM [facility] Specimen (Source)Anatomical Location / LateralityCollection Method / Volume Collection TimeReceived TimeBloodVenous blood / UnknownVenipuncture / Unknown 06/07/2025 12:27 PM EDT1 12:38 PM EDT Narrative [facility] - 06/07/2025 6:34 PM EDT Interpretation < 5 Negative 5 - 9 Indeterminate > 9 Positive Authorizing ProviderResult TypeResult StatusMohamed A cocone BLOOD ORDERABLESFinal ResultPerforming OrganizationAddressCity/State/ZIP CodePhone Number [facility] [address] [place] [address], [place] [phone] * (ABNORMAL) Iron and TIBC (06/07/2025 12:27 PM EDT)ComponentValueRef RangeTest MethodAnalysis TimePerformed AtPathologist KnvdmazuaLMSA0009 - 212 ug/dL 06/07/2025 2:44 PM [facility] ZSRXPNNHSEHSZVKNIDZGI249803 - 336 mg/dL06/07/2025 2:44 PM [facility] LABORATORYIRON BINDING 819203 - 425 ug/dL06/07/2025 2:44 PM [facility] IRON DADTYAHYKB90(L)20 - 50 % CVYVWLCQUN69/16/2025 2:44 PM [facility] LABORATORYSpecimen (Source)Anatomical Location / LateralityCollection Method / VolumeCollection TimeReceived TimeBloodVenous blood / Unknown Venipuncture / Acnhyvv1506/07/2025 12:27 PM EDT1 12:38 PM EDT Narrative Authorizing ProviderResult TypeResult StatusMohamed Luciana Ortiz MDAppoet BLOOD ORDERABLESFinal ResultPerforming OrganizationAddressCity/State/ZIP CodePhone Number [facility] [address] [place] [address], [place] [phone] * Ferritin (06/07/2025 12:27 PM EDT)ComponentValueRef RangeTest MethodAnalysis TimePerformed AtPathologist LierlvvltGNHUZPAY69124 - 336 ng/mL06/07/2025 3:25 PM [facility] LABORATORYSpecimen (Source)Anatomical Location / LateralityCollection Method / VolumeCollection TimeReceived TimeBloodVenous blood / UnknownVenipuncture / Jolblou6906/07/2025 12:27 PM EDT1 12:38 PM EDT Narrative Authorizing ProviderResult TypeResult StatusMohamed Luciana Ortiz Narvii BLOOD ORDERABLESFinal ResultPerforming OrganizationAddressCity/State/ZIP CodePhone Number [facility] [address] [place] [address], [place] [phone] * Vitamin B12 (06/07/2025 12:27 PM EDT)ComponentValueRef RangeTest Method Analysis TimePerformed AtPathologist SignatureVITAMIN [id number] - 914 pg/mL 06/07/2025 3:29 PM [facility] LABORATORYSpecimen (Source) Anatomical Location / LateralityCollection Method / VolumeCollection Time Received TimeBloodVenous blood / UnknownVenipuncture / Arottyw6506/07/2025 12:27 PM EDT1 12:38 PM EDT Narrative Authorizing ProviderResult TypeResult StatusMohamed A JoseRadioFrame BLOOD ORDERABLESFinal ResultPerforming OrganizationAddressCity/State/ZIP CodePhone Number [facility] [address] [address] [place] [address], * Folate (06/07/2025 12:27 PM EDT)ComponentValueRef RangeTest MethodAnalysis TimePerformed AtPathologist SignatureFOLIC ACID11.1>5.8 ng/mL06/07/2025 3:28 PM [facility] LABORATORYSpecimen (Source)Anatomical Location / LateralityCollection Method / VolumeCollection TimeReceived TimeBloodVenous blood / UnknownVenipuncture / Kirolmq4806/07/2025 12:27 PM EDT1 12:38 PM EDT Narrative Authorizing ProviderResult TypeResult StatusMohamed A JoseRadioFrame BLOOD ORDERABLESFinal ResultPerforming OrganizationAddressCity/State/ZIP CodePhone Number [facility] [address] [place] [address], * Beta-2 glycoprotein antibodies (06/07/2025 12:27 PM EDT)ComponentValueRef RangeTest MethodAnalysis TimePerformed AtPathologist SignatureBeta-2 Glycoproteins GPI IgG<1.40.0 - 19.9 u/mL06/07/2025 6:36 PM [facility] LABORATORYBeta-2 Glycoproteins GPI IgM<1.50.0 - 19.9 u/mL06/07/2025 6:36 PM [facility] LABORATORYBeta-2 Glycoproteins GPI IgA<2.0 0.0 - 19.9 u/mL10/ 6:36 PM [facility] Specimen (Source)Anatomical Location / LateralityCollection Method / Volume Collection TimeReceived TimeBloodVenous blood / UnknownVenipuncture / Unknown 06/07/2025 12:27 PM EDT1 12:38 PM EDT Narrative Authorizing ProviderResult TypeResult StatusOlubdarline Alex [facility] BLOOD ORDERABLESFinal ResultPerforming OrganizationAddressCity/State/ZIP CodePhone Number [facility] [address] [place] [address], [place] [phone] * Levetiracetam, S (06/07/2025 12:27 PM EDT)ComponentValueRef RangeTest Method Analysis TimePerformed AtPathologist SignatureLEVETIRACETAM, S26.510.0 - 40.0 mcg/mL06/08/2025 11:54 AM [facility] LABORATORIESComment: ADDITIONAL INFORMATION This test was developed and its performance characteristics determined by [facility] in a manner consistent with CLIA requirements. This test has not been cleared or approved by the U.S. Food and Drug Administration. Test Performed by: [facility] [place] [address] Trout Farmer: Anastasiya Alegria Ph.D.; CLIA# [id number] Specimen (Source)Anatomical Location / LateralityCollection Method / Volume Collection TimeReceived TimeBloodVenous blood / UnknownVenipuncture / Unknown 06/07/2025 12:27 PM EDT1 12:38 PM EDT Narrative Authorizing ProviderResult TypeResult StatusMable Butt [facility] BLOOD ORDERABLESFinal ResultPerforming OrganizationAddressCity/State/ZIP CodePhone Number [facility] [address] [place] [address], [place] * Potassium (06/07/2025 12:27 PM EDT)ComponentValueRef RangeTest MethodAnalysis TimePerformed AtPathologist SignaturePOTASSIUM3.63.5 - 5.0 mmol/L1 1:06 PM [facility] LABORATORYSpecimen (Source)Anatomical Location / LateralityCollection Method / VolumeCollection TimeReceived Time BloodVenous blood / UnknownVenipuncture / Yubhbbs5706/07/2025 12:27 PM EDT 06/07/2025 12:38 PM EDT Narrative Authorizing ProviderResult TypeResult StatusEhad Monika MDLAB BLOOD ORDERABLES Final ResultPerforming OrganizationAddressCity/State/ZIP CodePhone Number [facility] [address] [place] [address], * Resp Pathogens Panel/SARS CoV-2 (06/07/2025 11:11 AM EDT)ComponentValueRef RangeTest MethodAnalysis TimePerformed AtPathologist SignatureSARS COV 2 BY PCRNot DetectedNot Gzlltuqq67/16/2025 12:25 PM [facility] LABORATORYADENOVIRUSNot DetectedNot Gkcemofg27/16/2025 12:25 PM [facility] LABORATORYCORONAVIRUS 229ENot DetectedNot Gjabnrgw22/16/2025 12:25 PM [facility] LABORATORYCORONAVIRUS KDZ9Tdn DetectedNot Iglufybn35/16/2025 12:25 PM [facility] LABORATORYCORONAVIRUS HQ85Aho DetectedNot Ssoxypsq25/16/2025 12:25 PM [facility] LABORATORYCORONAVIRUS SH72Siv DetectedNot Zhkomcfl69/16/2025 12:25 PM EDT [facility] LABORATORYHUMAN METAPNEUVIRUSNot DetectedNot Detected 06/07/2025 12:25 PM [facility] LABORATORYRHINO/ENTEROVIRUSNot DetectedNot Zskllnvo50/16/2025 12:25 PM [facility] INFLUENZA ANot DetectedNot Whhahrce34/16/2025 12:25 PM [facility] LABORATORYINFLUENZA BNot DetectedNot Ainjweik75/16/2025 12:25 PM EDT [facility] LABORATORYPARAINFLUENZA 1Not DetectedNot Detected 06/07/2025 12:25 PM [facility] LABORATORYPARAINFLUENZA 2Not DetectedNot Scklgmxh75/16/2025 12:25 PM [facility] PARAINFLUENZA 3Not DetectedNot Zdfaxcxu61/16/2025 12:25 PM [facility] LABORATORYPARAINFLUENZA 4Not DetectedNot Ielbasyj56/16/2025 12:25 PM [facility] LABORATORYRESP SYNCYTIAL VIRUSNot DetectedNot Oopzfeyh09/16/2025 12:25 PM [facility] LABORATORYBORD PARAPERTUSSISNot DetectedNot Wuatsobo10/16/2025 12:25 PM [facility] LABORATORYBORDETELLA PERTUSSISNot DetectedNot Cbrklsnm68/16/2025 12:25 PM [facility] LABORATORYCHLAM.PNEUMONIAENot DetectedNot Zjzwrshy89/16/2025 12:25 PM [facility] LABORATORYMYCOPLASMA PNEUMONIAENot DetectedNot Ixaqxoyv18/16/2025 12:25 PM [facility] LABORATORYSpecimen (Source)Anatomical Location / LateralityCollection Method / VolumeCollection TimeReceived TimeSwabNasopharyngeal structure / Jaaseff7606/07/2025 11:11 AM EDT1 11:24 AM EDT [facility] LABORATORY - 06/07/2025 12:25 PM EDT The BioFire Respiratory Panel 2.1 (RP2.1) is a multiplexed nucleic acid test intended for the simultaneous qualitative detection and differentiation of nucleic acid from multiple viral and bacterial respiratory organisms, including nucleic acid from Severe Acute Respiratory Syndrome Coronavirus 2 (SARS-CoV-2), in nasopharyngeal swabs obtained from individuals suspected of COVID-19 by their healthcare provider. Testing is limited to laboratories certified under the Clinical Laboratory Improvement Amendments of 1988 (CLIA), to perform high complexity or moderate complexity tests. SARS-CoV-2 RNA and nucleic acids from the other respiratory viral and bacterial organisms identified by this test are generally detectable in nasopharyngeal swabs during the acute phase of infection.The detection and identification of specific viral and bacterial nucleic acids from individuals exhibiting signs and/or symptoms of respiratory infection is indicative of the presence of the identified microorganism and aids in the diagnosis of respiratory infection if used in conjunction with other clinical and epidemiological information. Positive results are indicative of the presence of the identified organism, but do not rule out co-infection with other pathogens. The agent(s) detected by the BioFire RP2.1 may not be the definite cause of disease and clinical correlation with patient history and other diagnostic information is necessary to determine patient infection status. Negative results in the setting of a respiratory illness may be due to infection with pathogens notdetected by this test, or lower respiratory tract infection that may not be detected by a nasopharyngeal specimen. Negative results do not preclude SARS-CoV-2 infection and should not be used as the sole basis for patient management decisions. Negative HAYES-CoV-2 results must be combined with clinical observations, patient history and epidemiological information. Negative results for other organisms identified by the test may require additional laboratory testing when evaluating a patient with possible respiratory tract infection. Authorizing ProviderResult TypeResult StatusAhmed A [facility] Memorial HospitalICROBIOLOGY - GENERAL ORDERABLESFinal ResultPerforming OrganizationAddressCity/State/ZIP Code Phone Number [facility] [address] [place] [address], * X-ray chest 1 view (06/07/2025 9:54 AM EDT)Anatomical RegionLateralityModality Body, ChestN/AComputed RadiographySpecimen (Source)Anatomical Location / LateralityCollection Method / VolumeCollection TimeReceived Time06/07/2025 10:08 AM EDT Narrative 06/07/2025 10:09 AM EDT Single view chest History:Congestion ??Difficulty breathing, shortness of breath Comparison: None Findings: Single portable view of the chest. Enteric catheter extends below the inferior edge of the radiograph. There is hypoventilatory change with lower lung atelectasis. Mild vascular congestion. Impression: Mild vascular congestion with bilateral lower lung atelectasis. Finalized by Peter Sarabia MD on 06/07/2025 10:09 AM Procedure Note Peter Sarabia MD - 06/07/2025 Single view chest History:Congestion Difficulty breathing, shortness of breath Comparison: None Findings: Single portable view of the chest. Enteric catheter extends below theinferior edge of the radiograph. There is hypoventilatory change withlower lung atelectasis. Mild vascular congestion. Impression: Mild vascular congestion with bilateral lower lung atelectasis. Finalized by Peter Sarabia MD on 06/07/2025 10:09 AM Authorizing ProviderResult TypeResult StatusAhmed Luciana Butt MDIMG DIAGNOSTIC IMAGING ORDERABLESFinal Result * (ABNORMAL) B-type natriuretic peptide (06/07/2025 4:07 AM EDT)ComponentValue Ref RangeTest MethodAnalysis TimePerformed AtPathologist SkofbsaswULS918(H) <=100 pg/mL06/07/2025 10:25 AM [facility] LABORATORYSpecimen (Source)Anatomical Location / LateralityCollection Method / VolumeCollection TimeReceived TimeBloodVenous blood / UnknownVenipuncture / Chpjdeu1506/07/2025 4:07 AM EDT1 4:23 AM EDT Narrative Authorizing ProviderResult TypeResult StatusMable Butt MDLAB BLOOD ORDERABLESFinal ResultPerforming OrganizationAddressCity/State/ZIP CodePhone Number [facility] [address] [place] [address], * (ABNORMAL) CBC auto differential (06/07/2025 4:07 AM EDT)ComponentValueRef RangeTest MethodAnalysis TimePerformed AtPathologist SignatureWBC4.94 - 11 x10E9/L1 4:38 AM [facility] LABORATORYRBC Count4.22 4.1 - 5.7 X10E12/L1 4:38 AM [facility] Jwneerqbqb90.513 - 17 g/dL06/07/2025 4:38 AM [facility] IMIXHNXBBWQowzdvbylv19.9(L)39 - 50 %06/07/2025 4:38 AM [facility] EJQAAUFKHZGAK4690 - 100 fL06/07/2025 4:38 AM [facility] YHVDMIHGVJZPP67.027 - 34 pg06/07/2025 4:38 AM [facility] ZPPZHFUBFSAVZK76.832 - 36 g/dL06/07/2025 4:38 AM [facility] INFQIGWFKYNBP19.611.5 - 15 %06/07/2025 4:38 AM [facility] LABORATORYPlatelet Vaqax020105 - 450 X10E9/L1 4:38 AM [facility] LABORATORYMPV7.07 - 12 fL06/07/2025 4:38 AM [facility] LABORATORYNeutrophils %58.4%06/07/2025 4:38 AM [facility] LABORATORYLymphocytes %25.8%06/07/2025 4:38 AM [facility] LABORATORYMonocytes %10.9%06/07/2025 4:38 AM [facility] LABORATORYEosinophils %4.0%06/07/2025 4:38 AM [facility] LABORATORYBasophils %0.9%06/07/2025 4:38 AM [facility] LABORATORYNeutrophils Absolute (A)2.91.5 - 6.6 10*3/uL 06/07/2025 4:38 AM [facility] LABORATORYLymphocytes Absolute 1.31.0 - 3.5 10*3/uL06/07/2025 4:38 AM [facility] Monocytes Absolute0.50.0 - 0.9 10*3/uL06/07/2025 4:38 AM [facility] LABORATORYEosinophils Absolute0.20.0 - 0.4 10*3/uL06/07/2025 4:38 AM [facility] LABORATORYBasophils Absolute0.00.0 - 0.2 10*3/uL 06/07/2025 4:38 AM [facility] LABORATORYDifferential Type AUTOMATED LLIXENAPRJQB40/16/2025 4:38 AM [facility] LABORATORYSpecimen (Source)Anatomical Location / LateralityCollection Method / VolumeCollection TimeReceived TimeBloodVenous blood / UnknownVenipuncture / Jzysuvm2506/07/2025 4:07 AM EDT1 4:23 AM EDT Narrative Authorizing ProviderResult TypeResult StatusFamatthew BARNES BLOOD ORDERABLES Final ResultPerforming OrganizationAddressCity/State/ZIP CodePhone Number [facility] [address] [place] [address], * (ABNORMAL) Comprehensive metabolic panel (06/07/2025 4:07 AM EDT)Component ValueRef RangeTest MethodAnalysis TimePerformed AtPathologist SignatureSODIUM 075633 - 146 mmol/L1 4:54 AM [facility] POTASSIUM3.53.5 - 5.0 mmol/L1 4:54 AM [facility] KKOVEVDSDLWWCLHJQJ87013 - 109 mmol/L1 4:54 AM [facility] LABORATORYCARBON LVRNIXL1375 - 32 mmol/L1 4:54 AM [facility] LABORATORYANION GAP95 - 15 mmol/L1 4:54 AM EDT [facility] LABORATORYBLOOD UREA ESTOXVQV246 - 27 mg/dL06/07/2025 4:54 AM [facility] LABORATORYCREATININE1.49(H)0.60 - 1.30 mg/dL06/07/2025 4:54 AM [facility] LABORATORYComment:METHOD TRACEABLE TO IDMS GXVPPLKOOGQEXMP926(H)65 - 99 mg/dL06/07/2025 4:54 AM EDT [facility] LABORATORYCALCIUM9.18.5 - 10.5 mg/dL06/07/2025 4:54 AM [facility] LABORATORYTOTAL PROTEIN6.46.0 - 8.0 g/dL 06/07/2025 4:54 AM [facility] LABORATORYALBUMIN3.53.2 - 5.3 g/dL06/07/2025 4:54 AM [facility] LABORATORYALKALINE ZMKKYQKFCRB4462 - 130 U/L1 4:54 AM [facility] XELVOUHMKZEQD03<=41 U/L1 4:54 AM [facility] LABORATORYALT7<=40 U/L1 4:54 AM [facility] LABORATORYBILIRUBIN,TOTAL0.70.3 - 1.2 mg/dL06/07/2025 4:54 AM [facility] LABORATORYEGFR Non-Race Pkzjclpzz87(L)>=60 ml/min/1.73sq.m 06/07/2025 4:54 AM [facility] LABORATORYComment: Reported eGFR is based on the CKD-EPI 2020 equation that does not use a race coefficient. Specimen (Source)Anatomical Location / LateralityCollection Method / Volume Collection TimeReceived TimeBloodVenous blood / UnknownVenipuncture / Unknown 06/07/2025 4:07 AM EDT1 4:23 AM EDT Narrative Authorizing ProviderResult TypeResult StatusFamatthew BARNES BLOOD ORDERABLES Final ResultPerforming OrganizationAddressCity/State/ZIP CodePhone Number [facility] [address] [place] [address], * MR brain with and without contrast (06/06/2025 11:53 PM EDT)Anatomical Region LateralityModalityNeuro, Head, Head and Neck, Neuro CoveraN/AMagnetic ResonanceSpecimen (Source)Anatomical Location / LateralityCollection Method / VolumeCollection TimeReceived Time06/06/2025 11:57 PM EDT Narrative 06/07/2025 12:03 AM EDT EXAM:MR BRAIN W WO CONT INDICATION: IPH neuro deficit COMPARISON: CT of the head from 06/05/2025 TECHNIQUE: Multiplanar multisequence pre and post contrast MR sequences through the head/brain. CONTRAST: 20mL ProHance IV. BRAIN FINDINGS: The study is motion degraded Brain Parenchyma: Redemonstrated intraparenchymal hematoma centered along the anterior right thalamus. The overall size and configuration of the hematoma is not significantly changed given variation in imaging technique. Maximal dimension is approximately 2.4 cm. Intraventricular extension into the adjacent anterior body of the right lateral ventricle. There is layering blood within the bilateraloccipital horns, similar volume to prior from 06/05/2025. There are scattered bilateral acute to subacute infarcts within the right basal ganglia and bilateral centrum semiovale. No definite evidence of convexity subarachnoid hemorrhage however evaluation is limited due to motion. Intracranial Flow-Voids: Arterial and venous sinus flow voids appear normal. Orbits: Normal Paranasal Sinuses: Normal Mastoid Air Cells: Bilateral mastoid effusions Cranium: Normal Extracranial Soft Tissues: Normal IMPRESSION: Significantly limited study due to motion. Redemonstrated right thalamic hematoma with intraventricular extension. Overall size and morphologyis not significantly changed compared to prior CT. Similar volume of intraventricular layering blood products. Enhancement along the anterior basal ganglia likely involving the putamen and caudate head likely sequelae of subacute infarct. There is corresponding diffusion restriction. Characterization is limited by motion. Metastatic disease favored to be less likely in the absence of a known malignancy. Consider short interval follow-up to assess for expected evolution of the infarcted territories andhematoma. Finalized by Peter Ramon on 06/07/2025 12:03 AM Procedure Note Peter Ramon MD - 06/07/2025 EXAM:MR BRAIN W WO CONT INDICATION: IPH neuro deficit COMPARISON: CT of the head from 06/05/2025 TECHNIQUE: Multiplanar multisequence pre and post contrast MR sequencesthrough the head/brain. CONTRAST: 20mL ProHance IV. BRAIN FINDINGS: The study is motion degraded Brain Parenchyma: Redemonstrated intraparenchymal hematoma centered alongthe anterior right thalamus. The overall size and configuration of thehematoma is not significantly changed given variation in imagingtechnique. Maximal dimension is approximately 2.4 cm. Intraventricularextension into the adjacent anterior body of the right lateral ventricle. There is layeringblood within the bilateral occipital horns, similar volume to prior from06/05/2025. There are scattered bilateral acute to subacute infarctswithin the right basal ganglia and bilateral centrum semiovale. No definite evidence of convexity subarachnoid hemorrhage howeverevaluation is limited due to motion. Intracranial Flow-Voids: Arterial and venous sinus flow voids appearnormal. Orbits: Normal Paranasal Sinuses: Normal Mastoid Air Cells: Bilateral mastoid effusions Cranium: Normal Extracranial Soft Tissues: Normal IMPRESSION: Significantly limited study due to motion. Redemonstrated right thalamic hematoma with intraventricular extension.Overall size and morphology is not significantly changed compared to priorCT. Similar volume of intraventricular layering blood products. Enhancement along the anterior basal ganglia likely involving the putamenand caudate head likely sequelae of subacute infarct. There iscorresponding diffusion restriction. Characterization is limited bymotion. Metastatic disease favored to be less likely in the absence of aknown malignancy. Consider short interval follow-up to assess for expected evolution of the infarcted territories and hematoma. Finalized by Peter Ramon on 06/07/2025 12:03 AM Authorizing ProviderResult TypeResult StatusFaFormerly Vidant Duplin Hospitalqueta ZULUAGASAINT [facility] [place] Final Result * X-ray abdomen NG Tube placement 1 view (06/06/2025 11:33 AM EDT)Anatomical RegionLateralityModalityBody, AbdomenN/AComputed RadiographySpecimen (Source) Anatomical Location / LateralityCollection Method / VolumeCollection Time Received Time06/06/2025 11:37 AM EDT Narrative 06/06/2025 11:38 AM EDT ABDOMEN RADIOGRAPH DATE: 06/06/2025 11:32 AM CLINICAL INDICATION: Verify NG tube placement TECHNIQUE: Single radiograph of the lower chest/upper abdomen COMPARISON: None FINDINGS: Lung bases: Unremarkable Bowel: ??No free air under the diaphragm. Bowel gas pattern appears nonobstructive. Bones / soft tissue: ??No acute appearing bony abnormality is noted Other: Enteric tube projects below the diaphragm, with the tip in the location of the upper stomach. IMPRESSION: 1. Enteric tube tip location is in the upper stomach, approximately 10 cm beyond the GE junction Finalized by Talat Elkins MD on 06/06/2025 11:38 AM Procedure Note Talat Elkins MD - 06/06/2025 ABDOMEN RADIOGRAPH DATE: 06/06/2025 11:32 AM CLINICAL INDICATION: Verify NG tube placement TECHNIQUE: Single radiograph of the lower chest/upper abdomen COMPARISON: None FINDINGS: Lung bases: Unremarkable Bowel: No free air under the diaphragm. Bowel gas pattern appearsnonobstructive. Bones / soft tissue: No acute appearing bony abnormality is noted Other: Enteric tube projects below the diaphragm, with the tip in thelocation of the upper stomach. IMPRESSION: 1. Enteric tube tip location is in the upper stomach, approximately 10 cmbeyond the GE junction Finalized by Talat Elkins MD on 06/06/2025 11:38 AM Authorizing ProviderResult TypeResult KevinFapipe Cuenca MDIMFreeman DIAGNOSTIC IMAGING ORDERABLESFinal Result * EEG VIDEO MONITORING (06/06/2025 10:38 AM EDT)Specimen (Source)Anatomical Location / LateralityCollection Method / VolumeCollection TimeReceived Time Narrative MANUALLY TRANSCRIBED RESULTS - 06/06/2025 1:02 PM EDT Images from the original result were not included. ?? [facility] Video/EEG Monitoring REPORT EEG Service Date(s): 06/06/25 from 06:30 until 10:35 Date of Report: 06/06/25 History: Gianni Babin is 70 y.o. 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 Centrally active medications: ??Keppra Procedure: This video/EEG monitoring was acquired with electrodes placed according to the Fainlctetwdag51-96 electrode placement system,using collodion. The EEG was reviewed using multiple, reformattable montages. Closed captioned video monitoring of behavior, synchronous with EEG recording is included in the analysis, as is digital/spectral analysis of EEG waveforms. A single EKG channel was recorded for cardiac rhythm monitoring. Technical description: Background over the left hemisphere is composed of 5-10 ??V frontal and centrally predominant intermittent beta frequency intermixed with 20-25 ??V posterior slow alpha and theta frequencies. There is an 8 Hz posterior dominant rhyhtm seen over the left hemisphere, but not on the right side. ??Background over the right hemisphere is composed of 5 ??V frontal and centrally predominant intermittent beta frequency intermixed with 20-30 V posterior alpha>theta frequency and intermittent right temporal polymorphic delta frequencies. No epileptiform abnormalities are noted in the form of spikes or sharp waves. ??No electrographic seizure activity is recorded. ??Stage II sleep is noted, correlated with the presence of bilaterally symmetric spindle activity and generalized delta frequencies. ?? Events: ??None. EEG diagnosis: This video/EEG monitoring is abnormal due to: Focal intermittent right temporal slowing.. Mild generalized background slowing. ?? EEG interpretation: This video/EEG monitoring is abnormal due to the presence of ??intermittent right temporal slowing, consistent with structural lesion. ??Mild generalized background slowing is consistent with encephalopathy of nonspecific etiology. ??No epileptiform abnormalities or seizures were recorded. ??Video/EEG monitoring may be continued or discontinued at the discretion of the referring provider. Jennifer German M.D., Ph.D. [employer] [facility] Authorizing ProviderResult TypeResult StatusFaBon Secours St. [facility] MDNEUROLOGY ORDERABLES Final ResultPerforming OrganizationAddressCity/State/ZIP CodePhone Number MANUALLY TRANSCRIBED RESULTS * CBC auto differential (06/06/2025 6:52 AM EDT)ComponentValueRef RangeTest MethodAnalysis TimePerformed AtPathologist SignatureWBC4.34 - 11 x10E9/L 06/06/2025 7:18 AM [facility] LABORATORYRBC Count4.274.1 - 5.7 X10E12/L1 7:18 AM [facility] Ptrqrkvmrm44.713 - 17 g/dL06/06/2025 7:18 AM [facility] HCAXTEKYSAUcyqxacdvz49.239 - 50 %06/06/2025 7:18 AM [facility] AJNHXUNYFZACZ8316 - 100 fL06/06/2025 7:18 AM [facility] EAFAJAMBQSPWI05.127 - 34 pg06/06/2025 7:18 AM [facility] SBWXPKZSVMQPOV05.032 - 36 g/dL06/06/2025 7:18 AM [facility] DPVPEGFCFEHTN66.311.5 - 15 %06/06/2025 7:18 AM [facility] LABORATORYPlatelet Cetcq233543 - 450 X10E9/L1 7:18 AM [facility] LABORATORYMPV7.17 - 12 fL06/06/2025 7:18 AM [facility] LABORATORYNeutrophils %56.3%06/06/2025 7:18 AM [facility] LABORATORYLymphocytes %27.0%06/06/2025 7:18 AM [facility] LABORATORYMonocytes %11.5%06/06/2025 7:18 AM [facility] LABORATORYEosinophils %4.2%06/06/2025 7:18 AM [facility] LABORATORYBasophils %1.0%06/06/2025 7:18 AM [facility] LABORATORYNeutrophils Absolute (A)2.41.5 - 6.6 10*3/uL 06/06/2025 7:18 AM [facility] LABORATORYLymphocytes Absolute 1.21.0 - 3.5 10*3/uL06/06/2025 7:18 AM [facility] Monocytes Absolute0.50.0 - 0.9 10*3/uL06/06/2025 7:18 AM [facility] LABORATORYEosinophils Absolute0.20.0 - 0.4 10*3/uL06/06/2025 7:18 AM [facility] LABORATORYBasophils Absolute0.00.0 - 0.2 10*3/uL 06/06/2025 7:18 AM [facility] LABORATORYDifferential Type AUTOMATED PLEOMNBQKLDU08/15/2025 7:18 AM [facility] LABORATORYSpecimen (Source)Anatomical Location / LateralityCollection Method / VolumeCollection TimeReceived TimeBloodVenous blood / UnknownVenipuncture / Ajckhgi4206/06/2025 6:52 AM EDT1 7:02 AM EDT Narrative Authorizing ProviderResult TypeResult StatusFamatthew BARNES BLOOD ORDERABLES Final ResultPerforming OrganizationAddressCity/State/ZIP CodePhone Number [facility] [address] [place] [address], * (ABNORMAL) Comprehensive metabolic panel (06/06/2025 6:52 AM EDT)Component ValueRef RangeTest MethodAnalysis TimePerformed AtPathologist SignatureSODIUM 256989 - 146 mmol/L1 7:36 AM [facility]OR[facility]ORY POTASSIUM3.53.5 - 5.0 mmol/L1 7:36 AM [facility] VAQURESVINIKLSVFKO41053 - 109 mmol/L1 7:36 AM [facility] LABORATORYCARBON ZXKLNUH8834 - 32 mmol/L1 7:36 AM [facility] LABORATORYANION AKP537 - 15 mmol/L1 7:36 AM [facility] LABORATORYBLOOD UREA ANJDTRUZ071 - 27 mg/dL06/06/2025 7:36 AM [facility] LABORATORYCREATININE1.43(H)0.60 - 1.30 mg/dL06/06/2025 7:36 AM [facility] LABORATORYComment:METHOD TRACEABLE TO IDMS EHHMWIESGTLSHCB117(H)65 - 99 mg/dL06/06/2025 7:36 AM [facility] LABORATORYCALCIUM8.68.5 - 10.5 mg/dL06/06/2025 7:36 AM [facility] LABORATORYTOTAL PROTEIN6.26.0 - 8.0 g/dL 06/06/2025 7:36 AM [facility] LABORATORYALBUMIN3.43.2 - 5.3 g/dL06/06/2025 7:36 AM [facility] LABORATORYALKALINE PUKYQDVOPFU3311 - 130 U/L1 7:36 AM [facility] NJITKKCXMSNKG07<=41 U/L1 7:36 AM [facility] LABORATORYALT8<=40 U/L1 7:36 AM [facility] LABORATORYBILIRUBIN,TOTAL0.70.3 - 1.2 mg/dL06/06/2025 7:36 AM [facility] LABORATORYEGFR Non-Race Yzkxptomp68(L)>=60 ml/min/1.73sq.m 06/06/2025 7:36 AM [facility] LABORATORYComment: Reported eGFR is based on the CKD-EPI 2020 equation that does not use a race coefficient. Specimen (Source)Anatomical Location / LateralityCollection Method / Volume Collection TimeReceived TimeBloodVenous blood / UnknownVenipuncture / Unknown 06/06/2025 6:52 AM EDT1 7:02 AM EDT Narrative Authorizing ProviderResult TypeResult StatusFamatthew BARNES BLOOD ORDERABLES Final ResultPerforming OrganizationAddressCity/State/ZIP CodePhone Number [facility] [address] [place] [address], [place] [phone] * EEG VIDEO MONITORING IN PROGRESS (06/06/2025 6:00 AM EDT)Specimen (Source) Anatomical Location / LateralityCollection Method / VolumeCollection Time Received Time Narrative MANUALLY TRANSCRIBED RESULTS - 06/06/2025 9:20 AM EDT Images from the original result were not included. ?? [facility] Video/EEG Monitoring REPORT EEG Service Date(s): 06/05/25 @ 06:30 until @ 06:30 Date of Report: 06/06/25 History: Gianni Babin is 70 y.o. 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 Centrally active medications: ??Keppra Procedure: This video/EEG monitoring was acquired with electrodes placed according to the Bvijxzghzxpgd87-93 electrode placement system,using collodion. The EEG was reviewed using multiple, reformattable montages. Closed captioned video monitoring of behavior, synchronous with EEG recording is included in the analysis, as is digital/spectral analysis of EEG waveforms. A single EKG channel was recorded for cardiac rhythm monitoring. Technical description: Background over the left hemisphere is composed of 5-10 ??V frontal and centrally predominant intermittent beta frequency intermixed with 20-25 ??V posterior slow alpha and theta frequencies. There is an 8 Hz posterior dominant rhyhtm seen over the left hemisphere, but not on the right side. ??Background over the right hemisphere is composed of 5 ??V frontal and centrally predominant intermittent beta frequency intermixed with 20-40 ??V posterior theta and intermittent right temporal polymorphic delta frequencies. No epileptiform abnormalities are noted in the form of spikes or sharp waves. ??No electrographic seizure activity is recorded. ??Stage II sleep is noted, correlated with the presence of bilaterally symmetric spindle activity and generalized delta frequencies. ?? EEG diagnosis: This video/EEG monitoring is abnormal due to: Focal intermittent right temporal slowing.. Mild generalized background slowing. ?? EEG interpretation: This video/EEG monitoring is abnormal due to the presence of ??intermittent right temporal slowing, consistent with structural lesion. ??Mild generalized background slowing is consistent with encephalopathy of nonspecific etiology. ??No epileptiform abnormalities or seizures were recorded. ??Video/EEG monitoring may be continued or discontinued at the discretion of the referring provider. Jennifer German M.D., Ph.D. [facility] Background with right temporal slowing Authorizing ProviderResult TypeResult Janet Cuenca MDNEUROLOGY ORDERABLES Final ResultPerforming OrganizationAddressCity/State/ZIP CodePhone Number MANUALLY TRANSCRIBED RESULTS * (ABNORMAL) Bedside Glucose *Place/Obtain serum glucose if >500 per glucometer. (06/05/2025 3:52 PM EDT)ComponentValueRef RangeTest MethodAnalysis Time Performed AtPathologist SignatureBedside Glucose (POC)145(H)65 - 99 mg/dL 06/05/2025 3:58 PM [facility] LABORATORYSpecimen (Source)Anatomical Location / LateralityCollection Method / VolumeCollection TimeReceived Time arterial/ekklvybuj37/14/2025 3:52 PM EDT1 3:58 PM EDT Narrative Authorizing ProviderResult TypeResult StatusPatricia Mcclellan MDPOINT OF CARE TEST ORDERABLESFinal ResultPerforming OrganizationAddressCity/State/ZIP CodePhone Number [facility] [address] [place] [address], * (ABNORMAL) Potassium (06/05/2025 2:45 PM EDT)ComponentValueRef RangeTest MethodAnalysis TimePerformed AtPathologist SignaturePOTASSIUM3.3(L)3.5 - 5.0 mmol/L1 3:47 PM [facility] LABORATORYSpecimen (Source)Anatomical Location / LateralityCollection Method / VolumeCollection TimeReceived TimeBloodVenous blood / Myqgbrw3806/05/2025 2:45 PM EDT1 3:01 PM EDT Narrative Authorizing ProviderResult TypeResult StatusEhtaqueria Mcclellan MDLAB BLOOD ORDERABLES Final ResultPerforming OrganizationAddressCity/State/ZIP CodePhone Number [facility] [address] [place] [address], [place] [phone] * (ABNORMAL) Bedside Glucose *Place/Obtain serum glucose if >500 per glucometer. (06/05/2025 11:58AM EDT)ComponentValueRef RangeTest MethodAnalysis Time Performed AtPathologist SignatureBedside Glucose (POC)140(H)65 - 99 mg/dL 06/05/2025 12:06 PM [facility] LABORATORYSpecimen (Source)Anatomical Location / LateralityCollection Method / VolumeCollection TimeReceived Time arterial/ztdcivula69/14/2025 11:58 AM EDT1 12:06 PM EDT Narrative Authorizing ProviderResult TypeResult StatusEhad Monika MDPOINT OF CARE TEST ORDERABLESFinal ResultPerforming OrganizationAddressCity/State/ZIP CodePhone Number [facility] [address] [place] [address], * (ABNORMAL) Bedside Glucose *Place/Obtain serum glucose if >500 per glucometer. (06/05/2025 8:20 AM EDT)ComponentValueRef RangeTest MethodAnalysis Time Performed AtPathologist SignatureBedside Glucose (POC)147(H)65 - 99 mg/dL 06/05/2025 8:25 AM [facility] LABORATORYSpecimen (Source)Anatomical Location / LateralityCollection Method / VolumeCollection TimeReceived Time arterial/mtfndiaud73/14/2025 8:20 AM EDT1 8:25 AM EDT Narrative Authorizing ProviderResult TypeResult StatusEhad Monika MDPOINT OF CARE TEST ORDERABLESFinal ResultPerforming OrganizationAddressCity/State/ZIP CodePhone Number [facility] [address] [place] [address], [place] * CT brain without contrast (06/05/2025 7:42 AM EDT)Anatomical RegionLaterality ModalityNeuro, Head, Head and Neck, Neuro CoveraN/AComputed TomographySpecimen (Source)Anatomical Location / LateralityCollection Method / VolumeCollection TimeReceived Time06/05/2025 8:11 AM EDT Narrative 06/05/2025 8:[address] BRAIN WO CONT CLINICAL HISTORY: Follow-up for intracranial hemorrhage. COMPARISON: CT brain 06/05/2025 and 06/04/2025. TECHNIQUE: CT brain without intravenous contrast. ??Automated exposure control was utilized. All CT scans at this facility use dose modulation, iterative reconstruction, and/or weight based dosing when appropriate to reduce radiation dose to as low as reasonably achievable. FINDINGS: Redemonstrated acute parenchymal hemorrhage centered within the anterior right thalamus with adjacent edema. Intraventricular extension within the right lateral ventricle, third ventricle, and dependent portions of the lateral ventricles. Ventricular system size and morphology are unchanged, basal cisterns are patent. No new or enlarging intracranial hemorrhage. Patchy areas of hypoattenuation within the supratentorial white matter nonspecific but most commonly associated with chronic microvascular ischemic change. Orbits are symmetric. No depressed or displaced calvarial fracture. Partial opacification of the bilateral mastoid air cells. Partially visualized cystic lesion within the right maxillary alveolar recess is unchanged. IMPRESSION: * ??Similar intraparenchymal hemorrhage centered within the anterior right thalamus with intraventricular extension. No change in size or configuration of the ventricular system. All CT scans at this facility use dose modulation, iterative reconstruction, and/or weight based dosing when appropriate to reduce radiation dose to as low as reasonably achievable. Finalized by Eron Walton MD on 06/05/2025 8:18 AM Procedure Note Eron Walton MD - 06/05/2025 CT BRAIN WO CONT CLINICAL HISTORY: Follow-up for intracranial hemorrhage. COMPARISON: CT brain 06/05/2025 and 06/04/2025. TECHNIQUE: CT brain without intravenous contrast. Automated exposurecontrol was utilized. All CT scans at this facility use dose modulation, iterativereconstruction, and/or weight based dosing when appropriate to reduceradiation dose to as low as reasonably achievable. FINDINGS: Redemonstrated acute parenchymal hemorrhage centered within the anteriorright thalamus with adjacent edema. Intraventricular extension within theright lateral ventricle, third ventricle, and dependent portions of thelateral ventricles. Ventricular system size and morphology are unchanged,basal cisterns are patent. No new or enlarging intracranial hemorrhage. Patchy areas ofhypoattenuation within the supratentorial white matter nonspecific butmost commonly associated with chronic microvascular ischemic change. Orbits are symmetric. No depressed or displaced calvarial fracture.Partial opacification of the bilateral mastoid air cells. Partiallyvisualized cystic lesion within the right maxillary alveolar recess isunchanged. IMPRESSION: * Similar intraparenchymal hemorrhage centered within the anterior rightthalamus with intraventricular extension. No change in size orconfiguration of the ventricular system. All CT scans at this facility use dose modulation, iterativereconstruction, and/or weight based dosing when appropriate to reduceradiation dose to as low as reasonably achievable. Finalized by Eron Walton MD on 06/05/2025 8:18 AM Authorizing ProviderResult TypeResult Liliane WASSERMAN CT ORDERABLESFinal Result * EEG VIDEO MONITORING IN PROGRESS (06/05/2025 6:00 AM EDT)Specimen (Source) Anatomical Location / LateralityCollection Method / VolumeCollection Time Received Time Narrative MANUALLY TRANSCRIBED RESULTS - 06/05/2025 10:50 AM EDT Images from the original result were not included. ?? [facility] Video/EEG Monitoring REPORT EEG Service Date(s): 06/05/25 form 04:27 until 06:30 Date of Report: 06/05/25 History: Gianni Babin is 70 y.o. 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 Centrally active medications: ??Keppra Procedure: This video/EEG monitoring was acquired with electrodes placed according to the Sogmjcgaqelbp58-51 electrode placement system,using collodion. The EEG was reviewed using multiple, reformattable montages. Closed captioned video monitoring of behavior, synchronous with EEG recording is included in the analysis, as is digital/spectral analysis of EEG waveforms. A single EKG channel was recorded for cardiac rhythm monitoring. Technical description: Background over the left hemisphere is composed of 5-10 ??V frontal and centrally predominant intermittent beta frequency intermixed with 20-25 ??V posterior slow alpha and theta frequencies. There is an 8 Hz posterior dominant rhyhtm seen over the left hemisphere, but not on the right side. ??Background over the right hemisphere is composed of 5 ??V frontal and centrally predominant intermittent beta frequency intermixed with 20-40 ??V posterior theta and polymorphic delta frequencies. No epileptiform abnormalities are noted in the form of spikes or sharp waves. ??No electrographic seizure activity is recorded. ??Stage II sleep is noted, correlated with the presence of bilaterally symmetric spindle activity and generalized delta frequencies. ?? EEG diagnosis: This video/EEG monitoring is abnormal due to: Hemispheric asymmetry with lower amplitudes and frequencies on the right side. Mild generalized background slowing. ?? EEG interpretation: This video/EEG monitoring is abnormal due to the presence of ??right hemispheric slowing and lower amplitudes, consistent with structural lesion. ??Mild generalized background slowing is consistent with encephalopathy of nonspecific etiology. ??No epileptiform abnormalities or seizures were recorded. Jennifer German M.D., Ph.D. [facility] Authorizing ProviderResult TypeResult StatusFahpipe Cuenca MDNEUROLOGY ORDERABLES Final ResultPerforming OrganizationAddressCity/State/ZIP CodePhone Number MANUALLY TRANSCRIBED RESULTS * EEG (06/05/2025 4:24 AM EDT)Specimen (Source)Anatomical Location / Laterality Collection Method / VolumeCollection TimeReceived Time Narrative MANUALLY TRANSCRIBED RESULTS - 06/05/2025 10:46 AM EDT Images from the original result were not included. ?? [facility] EEG REPORT EEG Service Date: 06/05/25 Date of Report: 06/05/25 History: Gianni Babin is a 70 y.o. male with altered mental status and right intraparenchymal hemorrhage who is undergoing EEG to evaluate for seizures. Centrally active medications: ??Keppra. Procedure: This EEG was acquired with electrodes placed according to the Gjwsnfanqzsdx49-28 electrode placement system. The EEG was acquired and reviewed using multiple, reformattable montages. A single EKG channel was recorded for cardiac rhythm monitoring. Technical description: Background over the left hemisphere is composed of 5-10 ??V frontal and centrally predominant intermittent beta frequency intermixed with 20-25 ??V posterior slow alpha and theta frequencies. There is an 8 Hz posterior dominant rhyhtm seen over the left hemisphere, but not on the right side. ??Background over the right hemisphere is composed of 5 ??V frontal and centrally predominant intermittent beta frequency intermixed with 20-40 ??V posterior theta and polymorphic delta frequencies. No epileptiform abnormalities are noted in the form of spikes or sharp waves. ??No electrographic seizure activity is recorded. ??Stage II sleep is noted, correlated with the presence of bilaterally symmetric spindle activity and generalized delta frequencies. ??Hyperventilation was deferred. ?? Photic stimulation failed to elicit posterior driving responses. EEG diagnosis: This EEG is abnormal due to: Hemispheric asymmetry with lower amplitudes and frequencies on the right side. Mild generalized background slowing. ?? EEG interpretation: This EEG is abnormal due to the presence of right hemispheric slowing and lower amplitudes, consistent with structural lesion. ??Mild generalized background slowing is consistent with encephalopathy of nonspecific etiology. ??The absence of epileptiform abnormalities does not exclude the possibility of intermittent seizures. ?? Jennifer German M.D., Ph.D. [facility] Background Authorizing ProviderResult TypeResult StatusFahbarnes-[facility] Bang MDNEUROLOGY ORDERABLES Final ResultPerforming OrganizationAddressCity/State/ZIP CodePhone Number MANUALLY TRANSCRIBED RESULTS * (ABNORMAL) CBC auto differential (06/05/2025 3:10 AM EDT)ComponentValueRef RangeTest MethodAnalysis TimePerformed AtPathologist SignatureWBC4.44 - 11 x10E9/L1 4:24 AM [facility] LABORATORYRBC Count4.12 4.1 - 5.7 X10E12/L1 4:24 AM [facility] Ypofbzxxit79.313 - 17 g/dL06/05/2025 4:24 AM [facility] LZHVJNVMHDYkwshlxhob21.3(L)39 - 50 %06/05/2025 4:24 AM [facility] JFVZKHASRIAZD5103 - 100 fL06/05/2025 4:24 AM [facility] ETCDHKHMQHYVY47.427 - 34 pg06/05/2025 4:24 AM [facility] KTTCPHGHPMJWHV50.732 - 36 g/dL06/05/2025 4:24 AM [facility] QINZAHPBNNLIU10.511.5 - 15 %06/05/2025 4:24 AM [facility] LABORATORYPlatelet Isxzl379697 - 450 X10E9/L1 4:24 AM EDT [facility] LABORATORYMPV7.37 - 12 fL06/05/2025 4:24 AM [facility] LABORATORYNeutrophils %58.2%06/05/2025 4:24 AM [facility] LABORATORYLymphocytes %26.5%06/05/2025 4:24 AM [facility] LABORATORYMonocytes %10.5%06/05/2025 4:24 AM [facility] LABORATORYEosinophils %3.6%06/05/2025 4:24 AM [facility] LABORATORYBasophils %1.2%06/05/2025 4:24 AM [facility] LABORATORYNeutrophils Absolute (A)2.61.5 - 6.6 10*3/uL 06/05/2025 4:24 AM [facility] LABORATORYLymphocytes Absolute 1.21.0 - 3.5 10*3/uL06/05/2025 4:24 AM [facility] Monocytes Absolute0.50.0 - 0.9 10*3/uL06/05/2025 4:24 AM [facility] LABORATORYEosinophils Absolute0.20.0 - 0.4 10*3/uL06/05/2025 4:24 AM [facility] LABORATORYBasophils Absolute0.10.0 - 0.2 10*3/uL 06/05/2025 4:24 AM [facility] LABORATORYDifferential Type AUTOMATED VFHCCDEZSBOJ39/14/2025 4:24 AM [facility] LABORATORYSpecimen (Source)Anatomical Location / LateralityCollection Method / VolumeCollection TimeReceived TimeBloodVenous blood / UnknownVenipuncture / Vrrmdbq1106/05/2025 3:10 AM EDT1 4:10 AM EDT Narrative Authorizing ProviderResult TypeResult StatusFamatthew BARNES BLOOD ORDERABLES Final ResultPerforming OrganizationAddressCity/State/ZIP CodePhone Number [facility] [address] [place] [address], * (ABNORMAL) Comprehensive metabolic panel (06/05/2025 3:10 AM EDT)Component ValueRef RangeTest MethodAnalysis TimePerformed AtPathologist SignatureSODIUM 283557 - 146 mmol/L1 4:38 AM [facility] POTASSIUM3.3(L)3.5 - 5.0 mmol/L1 4:38 AM [facility] MWAUWANYUUBWEEBJHD78940 - 109 mmol/L1 4:38 AM [facility] LABORATORYCARBON RKLQJHM3319 - 32 mmol/L1 4:38 AM [facility] LABORATORYANION GAP85 - 15 mmol/L1 4:38 AM EDT [facility] LABORATORYBLOOD UREA LUNWRJRX785 - 27 mg/dL06/05/2025 4:38 AM [facility] LABORATORYCREATININE1.44(H)0.60 - 1.30 mg/dL06/05/2025 4:38 AM [facility] LABORATORYComment:METHOD TRACEABLE TO IDMS UNFITYXNXIYFMIJ639(H)65 - 99 mg/dL06/05/2025 4:38 AM EDT [facility] LABORATORYCALCIUM8.78.5 - 10.5 mg/dL06/05/2025 4:38 AM [facility] LABORATORYTOTAL PROTEIN6.16.0 - 8.0 g/dL 06/05/2025 4:38 AM [facility] LABORATORYALBUMIN3.33.2 - 5.3 g/dL06/05/2025 4:38 AM [facility] LABORATORYALKALINE WUAUXXTLYVR2759 - 130 U/L1 4:38 AM [facility] BCEVBTYUPAKFA03<=41 U/L1 4:38 AM [facility] LABORATORYALT7<=40 U/L1 4:38 AM [facility] LABORATORYBILIRUBIN,TOTAL0.60.3 - 1.2 mg/dL06/05/2025 4:38 AM [facility] LABORATORYEGFR Non-Race Btmhrjmnb01(L)>=60 ml/min/1.73sq.m 06/05/2025 4:38 AM [facility] LABORATORYComment: Reported eGFR is based on the CKD-EPI 2020 equation that does not use a race coefficient. Specimen (Source)Anatomical Location / LateralityCollection Method / Volume Collection TimeReceived TimeBloodVenous blood / UnknownVenipuncture / Unknown 06/05/2025 3:10 AM EDT1 4:10 AM EDT Narrative Authorizing ProviderResult TypeResult StatusFahpipe BARNES BLOOD ORDERABLES Final ResultPerforming OrganizationAddressCity/State/ZIP CodePhone Number [facility] [address] [place] [address], * (ABNORMAL) Lipid profile (06/05/2025 3:10 AM EDT)ComponentValueRef RangeTest MethodAnalysis TimePerformed AtPathologist LclkxmyxmXODDJFBYBKN207220 - 200 mg/dL06/05/2025 4:38 AM [facility] EMJVVPYPOZFOFSLBMOEXNW900 (H)27 - 150 mg/dL06/05/2025 4:38 AM [facility] LABORATORYHDL RXSJTURWIDT94(L)>39 mg/dL06/05/2025 4:38 AM [facility] LABORATORYComment: HDL <40 mg/dL - High Risk HDL > or = 40mg/dL- Desirable HDL >60 mg/dL - Negative Risk LDL (CALC)77<130 mg/dL06/05/2025 4:38 AM [facility] Comment: LDL <100 mg/dL - Desirable LDL >160 mg/dL - High Risk CHOLESTEROL:HDL5.01.0 - 5.010 4:38 AM [facility] LABORATORYVERY LOW JJKWZQUKYQA36(H)0 - 30 mg/dL06/05/2025 4:38 AM [facility] LABORATORYSpecimen (Source)Anatomical Location / Laterality Collection Method / VolumeCollection TimeReceived TimeBloodVenous blood / UnknownVenipuncture / Xnoibps6306/05/2025 3:10 AM EDT1 4:10 AM EDT Narrative Authorizing ProviderResult TypeResult StatusFamatthew BARNES BLOOD ORDERABLES Final ResultPerforming OrganizationAddressCity/State/ZIP CodePhone Number [facility] [address] [place] [address], [place] [phone] * CT brain without contrast (06/05/2025 1:57 AM EDT)Anatomical RegionLaterality ModalityNeuro, Head, Head and Neck, Neuro CoveraN/AComputed TomographySpecimen (Source)Anatomical Location / LateralityCollection Method / VolumeCollection TimeReceived Time06/05/2025 4:48 AM EDT Narrative 06/05/2025 4:50 AM EDT History: Stroke Technique: Contiguous axial images through the brain were obtained without the administration of intravenous contrast material. Automated exposure control was utilized. Comparison: 06/04/2025 Findings: The previous described acute intracranial hemorrhage involving the right thalamus and extending into the right lateral ventricle is again seen and has not changed significantly since the prior study. There is now increasing blood products in the dependent portion of the lateral ventricles bilaterally. No new areas of hemorrhage are identified. There is no evidence of major vessel infarct or mass lesion. Impression: Stable appearance of the acute hemorrhage in the right thalamus with intraventricular extension with more acute blood product now seen layering in the dependent portion of the lateral ventricles since the previous examination dated 06/04/2025. All CT scans at this facility use dose modulation, iterative reconstruction, and/or weight based dosing when appropriate to reduce radiation dose to as low as reasonably achievable. Finalized by Raghu Villegas MD on 06/05/2025 4:50 AM Procedure Note Raghu Villegas MD - 06/05/2025 History: Stroke Technique: Contiguous axial images through the brain were obtained withoutthe administration of intravenous contrast material. Automated exposurecontrol was utilized. Comparison: 06/04/2025 Findings: The previous described acute intracranial hemorrhage involvingthe right thalamus and extending into the right lateral ventricle is againseen and has not changed significantly since the prior study. There is nowincreasing blood products in the dependent portion of the lateralventricles bilaterally. No new areas of hemorrhage are identified. There is noevidence of major vessel infarct or mass lesion. Impression: Stable appearance of the acute hemorrhage in the rightthalamus with intraventricular extension with more acute blood product nowseen layering in the dependent portion of the lateral ventricles since theprevious examination dated 06/04/2025. All CT scans at this facility use dose modulation, iterativereconstruction, and/or weight based dosing when appropriate to reduceradiation dose to as low as reasonably achievable. Finalized by Raghu Villegas MD on 06/05/2025 4:50 AM Authorizing ProviderResult TypeResult StatusRadrai Delgado MDIMG CT ORDERABLESFinal Result * (ABNORMAL) Bedside Glucose *Place/Obtain serum glucose if >500 per glucometer. (06/04/2025 9:35 PM EDT)ComponentValueRef RangeTest MethodAnalysis Time Performed AtPathologist SignatureBedside Glucose (POC)180(H)65 - 99 mg/dL 06/04/2025 9:41 PM [facility] LABORATORYSpecimen (Source)Anatomical Location / LateralityCollection Method / VolumeCollection TimeReceived Time arterial/tarjgoogs92/13/2025 9:35 PM EDT1 9:41 PM EDT Narrative Authorizing ProviderResult TypeResult StatusEhad Monika MDPOINT OF CARE TEST ORDERABLESFinal ResultPerforming OrganizationAddressCity/State/ZIP CodePhone Number [facility] [address] [place] [address], * CBC auto differential (06/04/2025 7:58 PM EDT)ComponentValueRef RangeTest MethodAnalysis TimePerformed AtPathologist SignatureWBC5.94 - 11 x10E9/L 06/04/2025 8:29 PM [facility] LABORATORYRBC Count4.474.1 - 5.7 X10E12/L1 8:29 PM [facility] Xzjgsmfrdb83.713 - 17 g/dL06/04/2025 8:29 PM [facility] TLDQPSPGAXHexoxhiomk04.539 - 50 %06/04/2025 8:29 PM [facility] BYIVUQUZGJKCL9029 - 100 fL06/04/2025 8:29 PM [facility] JKEOCJHYZXZKX97.627 - 34 pg06/04/2025 8:29 PM [facility] MYCMUMKTHPQTAW61.732 - 36 g/dL06/04/2025 8:29 PM [facility] SGXDWNFOVRERP27.611.5 - 15 %06/04/2025 8:29 PM [facility] LABORATORYPlatelet Qrcad746427 - 450 X10E9/L1 8:29 PM [facility] LABORATORYMPV7.17 - 12 fL06/04/2025 8:29 PM [facility] LABORATORYNeutrophils %60.4%06/04/2025 8:29 PM [facility] LABORATORYLymphocytes %26.8%06/04/2025 8:29 PM [facility] LABORATORYMonocytes %9.2%06/04/2025 8:29 PM [facility] LABORATORYEosinophils %2.6%06/04/2025 8:29 PM [facility] LABORATORYBasophils %1.0%06/04/2025 8:29 PM [facility] LABORATORYNeutrophils Absolute (A)3.51.5 - 6.6 10*3/uL 06/04/2025 8:29 PM [facility] LABORATORYLymphocytes Absolute 1.61.0 - 3.5 10*3/uL06/04/2025 8:29 PM [facility] Monocytes Absolute0.50.0 - 0.9 10*3/uL06/04/2025 8:29 PM [facility] LABORATORYEosinophils Absolute0.20.0 - 0.4 10*3/uL06/04/2025 8:29 PM [facility] LABORATORYBasophils Absolute0.10.0 - 0.2 10*3/uL 06/04/2025 8:29 PM [facility] LABORATORYDifferential Type AUTOMATED QANZPIYYRNCM37/13/2025 8:29 PM [facility] LABORATORYSpecimen (Source)Anatomical Location / LateralityCollection Method / VolumeCollection TimeReceived TimeBloodVenous blood / Nvqdnhj7506/04/2025 7:58 PM EDT1 8:09 PM EDT Narrative Authorizing ProviderResult TypeResult StatusFamatthew BARNES BLOOD ORDERABLES Final ResultPerforming OrganizationAddressCity/State/ZIP CodePhone Number [facility] [address] [place] [address], * (ABNORMAL) Comprehensive metabolic panel (06/04/2025 7:58 PM EDT)Component ValueRef RangeTest MethodAnalysis TimePerformed AtPathologist SignatureSODIUM 930327 - 146 mmol/L1 8:37 PM [facility] POTASSIUM3.3(L)3.5 - 5.0 mmol/L1 8:37 PM [facility] ZDPTQCKWGKXNTCGNLI80418 - 109 mmol/L1 8:37 PM [facility] LABORATORYCARBON NPFDJFI0691 - 32 mmol/L1 8:37 PM [facility] LABORATORYANION GAP95 - 15 mmol/L1 8:37 PM EDT [facility] LABORATORYBLOOD UREA IKUJYXKB569 - 27 mg/dL06/04/2025 8:37 PM [facility] LABORATORYCREATININE1.42(H)0.60 - 1.30 mg/dL06/04/2025 8:37 PM [facility] LABORATORYComment:METHOD TRACEABLE TO IDMS ABQWRYIXKGBSZYJ198(H)65 - 99 mg/dL06/04/2025 8:37 PM EDT [facility] LABORATORYCALCIUM8.88.5 - 10.5 mg/dL06/04/2025 8:37 PM [facility] LABORATORYTOTAL PROTEIN6.36.0 - 8.0 g/dL 06/04/2025 8:37 PM [facility] LABORATORYALBUMIN3.43.2 - 5.3 g/dL06/04/2025 8:37 PM [facility] LABORATORYALKALINE PMPSZBFQWLU6486 - 130 U/L1 8:37 PM [facility] HFIFYSVKMXKRT59<=41 U/L1 8:37 PM [facility] LABORATORYALT9<=40 U/L1 8:37 PM [facility] LABORATORYBILIRUBIN,TOTAL0.60.3 - 1.2 mg/dL06/04/2025 8:37 PM [facility] LABORATORYEGFR Non-Race Wbuwvgegz23(L)>=60 ml/min/1.73sq.m 06/04/2025 8:37 PM [facility] LABORATORYComment: Reported eGFR is based on the CKD-EPI 2020 equation that does not use a race coefficient. Specimen (Source)Anatomical Location / LateralityCollection Method / Volume Collection TimeReceived TimeBloodVenous blood / Tnzwnbi8306/04/2025 7:58 PM EDT 06/04/2025 8:09 PM EDT Narrative Authorizing ProviderResult TypeResult StatusFamatthew BARNES BLOOD ORDERABLES Final ResultPerforming OrganizationAddressCity/State/ZIP CodePhone Number [facility] [address] [place] [address], * Type and screen(includes indirect rita) (06/04/2025 7:58 PM EDT)Component ValueRef RangeTest MethodAnalysis TimePerformed AtPathologist SignatureABOO 06/04/2025 9:01 PM [facility] VKQSZAPPTGNPCooecaue75/13/2025 9:01 PM [facility] LABORATORYAntibody IfodkfSjqjgtms46/13/2025 9:01 PM EDT [facility] LABORATORYSpecimen (Source)Anatomical Location / Laterality Collection Method / VolumeCollection TimeReceived TimeBloodVenous blood / Bialfvw0006/04/2025 7:58 PM EDT1 8:13 PM EDT Narrative Authorizing ProviderResult TypeResult StatusCarter Smith DOBLOOD BANK TEST ORDERABLESEdited Result - FinalPerforming OrganizationAddressCity/State/ZIP Code Phone Number [facility] [address] [place] [address], [facility] [address] [place] [address], * (ABNORMAL) Bedside Glucose *Place/Obtain serum glucose if >500 per glucometer. (06/04/2025 7:54 PM EDT)ComponentValueRef RangeTest MethodAnalysis Time Performed AtPathologist SignatureBedside Glucose (POC)161(H)65 - 99 mg/dL 06/04/2025 7:55 PM [facility] LABORATORYSpecimen (Source)Anatomical Location / LateralityCollection Method / VolumeCollection TimeReceived Time arterial/pswoeaqhh21/13/2025 7:54 PM EDT1 7:55 PM EDT Narrative Authorizing ProviderResult TypeResult StatusManal W Luis DOPOINT OF CARE TEST ORDERABLESFinal ResultPerforming OrganizationAddressCity/State/ZIP CodePhone Number [facility] [address] [place] [address], [place] * ABO Rh Repeat (06/04/2025 6:00 PM EDT)ComponentValueRef RangeTest Method Analysis TimePerformed AtPathologist JzrbauxqkQEFG98/13/2025 6:37 PM [facility] PDBJACKCXRLRVlouvyml40/13/2025 6:37 PM [facility] Specimen (Source)Anatomical Location / LateralityCollection Method / Volume Collection TimeReceived Time06/04/2025 6:00 PM EDT1 6:24 PM EDT Narrative Authorizing ProviderResult TypeResult StatusManal W Luis DOBLOOD BANK TEST ORDERABLESFinal ResultPerforming OrganizationAddEagleville Hospitalty/State/ZIP CodePhone Number [facility] [address] [place] [address], * (ABNORMAL) Hemoglobin A1c (06/04/2025 6:00 PM EDT)ComponentValueRef RangeTest MethodAnalysis TimePerformed AtPathologist SignatureHEMOGLOBIN A1C8.9(H)4.4 - 5.6 %06/04/2025 8:33 PM [facility] LABORATORYComment: ?ADA Guidelines ?Result ?HgbA1c ? Normal : ? less than 5.7 % ? Prediabetes : ?5.7 % ??to 6.4 % Diabetes : > 6.4 % ?Use with caution in patients with abnormal hemoglobin variants as ??the half-life of red blood cells and in vivo glycation rates are ??affected. EST. AVERAGE DRTWHVJ271bo/dL06/04/2025 8:33 PM [facility] LABORATORYSpecimen (Source)Anatomical Location / LateralityCollection Method / VolumeCollection TimeReceived TimeBloodVenous blood / Xtpjauc5206/04/2025 6:00 PM EDT1 6:14 PM EDT Narrative Authorizing ProviderResult TypeResult StatusAlphonse BARNES BLOOD ORDERABLES Final ResultPerforming OrganizationAddressCity/State/ZIP CodePhone Number [facility] [address] [place] [address], * Cruz Top On Ice (06/04/2025 6:00 PM EDT)ComponentValueRef RangeTest Method Analysis TimePerformed AtPathologist SignatureExtra TubeAuto Resulted 06/04/2025 7:01 PM [facility] LABORATORYSpecimen (Source) Anatomical Location / LateralityCollection Method / VolumeCollection Time Received TimeBloodVenous blood / Zdocecy3606/04/2025 6:00 PM EDT1 6:14 PM EDT Narrative Authorizing ProviderResult TypeResult StatusCarter ANDERSON BLOOD ORDERABLES Final ResultPerforming OrganizationAddressCity/State/ZIP CodePhone Number [facility] [address] [place] [address], * Lavender Top (06/04/2025 6:00 PM EDT)ComponentValueRef RangeTest Method Analysis TimePerformed AtPathologist SignatureExtra TubeAuto Resulted 06/04/2025 7:01 PM [facility] LABORATORYSpecimen (Source) Anatomical Location / LateralityCollection Method / VolumeCollection Time Received TimeBloodVenous blood / Lzssyse6106/04/2025 6:00 PM EDT1 6:14 PM EDT Narrative Authorizing ProviderResult TypeResult StatusManal W Luis DOLAB BLOOD ORDERABLES Final ResultPerforming OrganizationAddressCity/State/ZIP CodePhone Number [facility] [address] [place] [address], * PST TOP (06/04/2025 6:00 PM EDT)ComponentValueRef RangeTest MethodAnalysis TimePerformed AtPathologist SignatureExtra TubeAuto Zebvvwdc70/13/2025 7:01 PM [facility] LABORATORYSpecimen (Source)Anatomical Location / LateralityCollection Method / VolumeCollection TimeReceived TimeBloodVenous blood / Qevybnv2106/04/2025 6:00 PM EDT1 6:14 PM EDT Narrative Authorizing ProviderResult TypeResult StatusManal W Luis DOLAB BLOOD ORDERABLES Final ResultPerforming OrganizationAddressCity/State/ZIP CodePhone Number [facility] [address] [place] [address], * Light Blue Top (06/04/2025 6:00 PM EDT)ComponentValueRef RangeTest Method Analysis TimePerformed AtPathologist SignatureExtra TubeAuto Resulted 06/04/2025 7:01 PM [facility] LABORATORYSpecimen (Source) Anatomical Location / LateralityCollection Method / VolumeCollection Time Received TimeBloodVenous blood / Dbuhtjj2106/04/2025 6:00 PM EDT1 6:14 PM EDT Narrative Authorizing ProviderResult TypeResult StatusManal W Luis ANDERSON BLOOD ORDERABLES Final ResultPerforming OrganizationAddressCity/State/ZIP CodePhone Number [facility] [address] [place] [address], documented in this encounter Visit Diagnoses Diagnosis ICH (intracerebral hemorrhage) ([facility])- Primary Intracerebral hemorrhage Traumatic intracerebral hemorrhage with unknown loss of consciousness status, unspecified laterality, subsequent encounter Type 2 diabetes mellitus with other specified complication, unspecified whether terminal superintendent insulin use ([facility]) Nontraumatic intracerebral hemorrhage, unspecified cerebral location, unspecified laterality ([facility]-HCC) documented in this encounter Admitting Diagnoses Diagnosis ICH (intracerebral hemorrhage) ([facility]) Intracerebral hemorrhage documented in this encounter Administered Medications Medication OrderMAR ActionAction DateDoseRateSite acetaminophen (OFIRMEV) IVPB Premix 1,000 mg 1,000 mg, intravenous, at 400 mL/hr, Administer over 15 Minutes, Every 6 hours PRN, mild pain - pain scale 1-3, headaches, Starting on Wed06/04/25 at 2249, For 24 hours New 06/05/2025 7:47 PM EDT1,000 mg400 mL/hrNew 06/05/2025 4:33 AM EDT1,000 mg400 mL/hrNew 06/04/2025 11:00 PM EDT1,000 mg400 mL/hr acetaminophen (OFIRMEV) IVPB Premix 1,000 mg 1,000 mg, intravenous, at 400 mL/hr, Administer over 15 Minutes, Every 6 hours PRN, mild pain - pain scale 1-3, headaches, Starting on Wed06/06/25 at 0619, For 24 hours New 06/06/2025 6:22 AM EDT1,000 mg400 mL/hr acetaminophen (OFIRMEV) IVPB Premix 1,000 mg 1,000 mg, intravenous, at 400 mL/hr, Administer over 15 Minutes, Once, On Wed06/15/25 at 0400, For1 dose Esofkhlyx68/24/2025 4:34 AM MXH127 mL/hrNew 06/15/2025 4:22 AM EDT1,000 mg400 mL/hr acetaminophen (OFIRMEV) IVPB Premix 1,000 mg 1,000 mg, intravenous, at 400 mL/hr, Administer over 15 Minutes, Once, On 06/16/25 at 1215, For1 dose New Bag06/16/2025 1:54 PM EDT1,000 mg400 mL/hr amLODIPine (NORVASC) tablet 10 mg 10 mg, g-tube, Daily, First dose (after last modification) on 06/11/25 at 0900, Hold for systolic blood pressure less than 110 Look-alike/sound-alike medication - verify indication for use. Avoidgrapefruit juice. Given06/13/2025 8:26 AM EDT10 kzKynyb6306/12/2025 10:43 AM EDT10 zgMvbib3706/11/2025 8:37 AM EDT10 mg amLODIPine (NORVASC) tablet 10 mg 10 mg, oral, Daily, First dose (after last modification) on Joanie 06/14/25 at 0900, Hold for systolicblood pressure less than 110 Look-alike/sound-alike medication - verify indication for use. Avoid grapefruit juice. Given06/22/2025 8:32 AM EDT10 vqYekqx7106/21/2025 8:26 AM EDT10 ecQllvl1206/20/2025 10:19 AM EDT10 mg amLODIPine (NORVASC) tablet 5 mg 5 mg, g-tube, Daily, First dose on 06/09/25 at 1015, Hold for systolic blood pressure less [id number] Look-alike/sound-alike medication - verify indication for use. Avoid grapefruit juice. Given06/10/2025 8:16 AM EDT5 ouFzrmn2006/09/2025 11:21 AM EDT5 mg amLODIPine (NORVASC) tablet 5 mg 5 mg, g-tube, Once, On 06/10/25 at 1000, For 1 dose, Additional dose for total of 10 mg today Look-alike/sound-alike medication - verify indication for use. Avoid grapefruit juice. Given06/10/2025 10:55 AM EDT5 mg aspirin EC tablet 81 mg 81 mg, oral, Daily, First dose on 06/16/25 at 1215, Do not crush or chew. Given06/22/2025 8:32 AM EDT81 gvYhrrp7706/21/2025 8:26 AM EDT81 dqSouxx2306/20/2025 10:19 AM EDT81 mg atorvastatin (LIPITOR) tablet 20 mg 20 mg, oral, Nightly, First dose on Wed06/14/25 at 2200, Look-alike/sound-alike medication - verify indication for use. Given06/21/2025 9:33 PM EDT20 xxXtnkf6906/20/2025 9:26 PM EDT20 dsJwgji9606/19/2025 9:02 PM EDT20 mg barium sulfate (E-Z-HD) 98 % suspension 340 g 340 g, oral, Once in imaging, contrast, barium sulfate (E-Z-HD) 98 % suspension, Starting on Wed06/12/25 at 1002, For 1 dose barium sulfate (VARIBAR HONEY) 40 % (w/v) 29% (w/w) suspension 60 mL 60 mL, oral, Once in imaging, contrast, barium sulfate (VARIBAR HONEY) 40 % (w/v) 29% (w/w) suspension, Starting on Wed06/12/25 at 1002, For 1 dose barium sulfate (VARIBAR NECTAR) 40 % (w/v) suspension 10 mL 10 mL, oral, Once in imaging, contrast, barium sulfate (VARIBAR NECTAR) 40 % (w/v) suspension, Starting on Wed06/12/25 at 1002, For 1 dose Given06/12/2025 10:13 AM EDT30 mL barium sulfate (VARIBAR NECTAR) 40 % (w/v) suspension 10 mL 10 mL, oral, Once in imaging, contrast, barium sulfate (VARIBAR NECTAR) 40 % (w/v) suspension, Starting on Wed06/14/25 at 1424, For 1 dose Given06/14/2025 2:37 PM EDT30 mL barium sulfate (VARIBAR PUDDING) 40 % (w/v), 30% (w/w) oral paste 60 mL 60 mL, oral, Once in imaging, contrast, barium sulfate (VARIBAR PUDDING) 40 % (w/v), 30% (w/w) oralpaste, Starting on Wed06/12/25 at 1002, For 1 dose barium sulfate (VARIBAR PUDDING) 40 % (w/v), 30% (w/w) oral paste 60 mL 60 mL, oral, Once in imaging, contrast, barium sulfate (VARIBAR PUDDING) 40 % (w/v), 30% (w/w) oralpaste, Starting on Joanie 06/14/25 at 1424, For 1 dose Given06/14/2025 2:36 PM EDT30 mL barium sulfate (VARIBAR THIN HONEY) 40 %(w/v), 29% (w/w)(1500 CPS) suspension 20 mL 20 mL, oral, Once in imaging, contrast, Radiology, Starting on 06/12/25 at 1002, For 1 dose Given06/12/2025 10:13 AM EDT30 mL barium sulfate (VARIBAR THIN HONEY) 40 %(w/v), 29% (w/w)(1500 CPS) suspension 20 mL 20 mL, oral, Once in imaging, contrast, Radiology, Starting on Joanie 06/14/25 at 1431, For 1 dose Given06/14/2025 2:37 PM EDT30 mL barium sulfate (VARIBAR THIN) 81 % (w/w) powder 148 g 148 g, oral, Once in imaging, contrast, barium sulfate (VARIBAR THIN) 40 % (w/v) powder, Starting on e 06/12/25 at 1002, For 1 dose Given06/12/2025 10:13 AM EDT10 g barium sulfate (VARIBAR THIN) 81 % (w/w) powder 148 g 148 g, oral, Once in imaging, contrast, barium sulfate (VARIBAR THIN) 40 % (w/v) powder, Starting on Joanie 06/14/25 at 1424, For 1 dose Given06/14/2025 2:36 PM EDT10 g calcium gluconate 3,000 mg in sodium chloride 0.9 % 100 mL IVPB 3,000 mg, intravenous, at 43.3 mL/hr, Administer over 3 Hours, As needed, ionized calcium 3.5 to 3.9 mg/dL, Starting on 06/09/25 at 1000, IV Administration of calcium via a central or deep vein preferred. Avoid administration in small hand veins VESICANT (RED) calcium gluconate 4,000 mg in sodium chloride 0.9 % 250 mL IVPB 4,000 mg, intravenous, at 72.5 mL/hr, Administer over 4 Hours, As needed, ionized calcium 3.4 mg/dLor less, Starting on 06/09/25 at 1000, IV administration of calcium via a central or deep vein is preferred. Avoid administration in small hand veins. VESICANT (RED) calcium gluconate IVPB 2000 mg/100 mL (20 mg/mL premix) 2,000 mg, intravenous, at 50 mL/hr, Administer over 2 Hours, As needed, ionized calcium 4 to 4.3 mg/dL, Starting on Wed06/09/25 at 1000, IV Administration of calcium via a central or deep vein preferred. Avoid administration in small hand veins VESICANT (RED) carvediloL (COREG) tablet 12.5 mg 12.5 mg, oral, 2 times daily, First dose on Wed06/08/25 at 1315, Hold for systolic blood pressure less than 110 or heart rate less than 60 Give with meal or snack. Look-alike/sound-alike medication - verify indication for use. Given06/09/2025 8:20 AM EDT12.5 vaLmxly9206/08/2025 8:22 PM EDT12.5 mgGiven 06/08/2025 1:21 PM EDT12.5 mg carvediloL (COREG) tablet 12.5 mg 12.5 mg, oral, Once, On Wed06/09/25 at 1000, For 1 dose, Additional dose for total of 25 mg this morning Give with meal or snack. Look-alike/sound-alike medication - verify indication for use. Given06/09/2025 11:22 AM EDT12.5 mg carvediloL (COREG) tablet 12.5 mg 12.5 mg, oral, 2 times daily, First dose (after last modification) on Wed06/15/25 at 2100, Hold for systolic blood pressure less than 110 or heart rate less than 60 Give with meal or snack. Look-alike/sound-alike medication - verify indication for use. Given06/22/2025 8:32 AM EDT12.5 piLfupt5506/21/2025 9:33 PM EDT12.5 mgGiven 06/21/2025 8:26 AM EDT12.5 mg carvediloL (COREG) tablet 25 mg 25 mg, g-tube, 2 times daily, First dose (after last modification) on Wed06/09/25 at 2100, Hold for systolic blood pressure less than 110 or heart rate less than 60 Give with meal or snack. Look-alike/sound-alike medication - verify indication for use. Given06/13/2025 8:26 AM EDT25 flMruof9106/12/2025 9:08 PM EDT25 jgAbyen9406/12/2025 10:43 AM EDT25 mg carvediloL (COREG) tablet 25 mg 25 mg, oral, 2 times daily, First dose (after last modification) on Wed06/13/25 at 2100, Hold for systolic blood pressure less than 110 or heart rate less than 60 Give with meal or snack. Look-alike/sound-alike medication - verify indication for use. Given06/14/2025 10:46 PM EDT25 daOneuu6206/14/2025 10:30 AM EDT25 mgGiven 06/13/2025 9:55 PM EDT25 mg cefTRIAXone (ROCEPHIN) 1,000 mg in sodium chloride 0.9 % 50 mL IVPB W/ADAPTER 1,000 mg, intravenous, at 100 mL/hr, Administer over 30 Minutes, Every 24 hours, First dose on Wed06/08/25 at 1100, For 5 doses, For Vial-2-Bag: Attach bag and vial to adapter - Use immediately after activating; dissolve drug prior to administration., Indication: UTI New Bag06/12/2025 10:41 AM EDT1,000 mg100 mL/hrNew Bag06/11/2025 11:12 AM EDT 1,000 mg100 mL/hrNew Bag06/10/2025 10:54 AM EDT1,000 mg100 mL/hr cefTRIAXone (ROCEPHIN) 1,000 mg in sodium chloride 0.9 % 50 mL IVPB W/ADAPTER 1,000 mg, intravenous, at 100 mL/hr, Administer over 30 Minutes, Every 24 hours, First dose on Wed06/17/25 at 1600, For 7 doses, For Vial-2-Bag: Attach bag and vial to adapter - Use immediately after activating; dissolve drug prior to administration., Indication: UTI New Bag06/22/2025 4:47 PM EDT1,000 mg100 mL/hrNew Bag06/21/2025 3:28 PM EDT1,000 mg100 mL/hrNew Bag06/20/2025 5:50 PM EDT1,000 mg100 mL/hr dextrose (GLUTOSE) 40 % gel 15 g 15 g, oral, As needed, low blood sugar, blood glucose less than 70 mg/dL, Starting on Wed06/11/25 at 0713, If patient conscious and taking PO. If blood glucose is not greater than 70 mg/dL after initial treatment, repeat treatment. dextrose 2.5 % in water, 1,000 mL infusion 100 mL/hr, intravenous, Continuous, Starting on Wed06/10/25 at 1000, For 10 hours, solution= dextrose 2.5 % New Bag06/10/2025 1:54 PM XLH676 mL/hr100 mL/hr dextrose 2.5 % in water, 1,000 mL infusion 50 mL/hr, intravenous, Continuous, Starting on Wed06/13/25 at 1400, solution= dextrose 2.5 % New Bag06/13/2025 3:06 PM EDT50 mL/hr50 mL/hr dextrose 2.5 % in water, 1,000 mL infusion 50 mL/hr, intravenous, Continuous, Starting on Wed06/15/25 at 1030, solution= dextrose 2.5 % New Bag06/17/2025 2:00 PM EDT50 mL/hr50 mL/hrRate/Dose Efblpq9106/17/2025 12:28 PM EDT50 mL/hr50 mL/hrNew Bag06/17/2025 1:39 AM EDT75 mL/hr75 mL/hr dextrose 2.5 % in water, 1,000 mL infusion 100 mL/hr, intravenous, Continuous, Starting on Wed06/18/25 at 1115, For 6 hours, solution= dextrose 2.5 % New Bag06/18/2025 12:10 PM QFH252 mL/hr100 mL/hrRate/Dose Uriqub6106/18/2025 11:15 AM JUO880 mL/hr100 mL/hr dextrose 2.5 % in water, 1,000 mL infusion 75 mL/hr, intravenous, Continuous, Starting on Wed06/21/25 at 1400, Hold for sodium less than 140 solution= dextrose 2.5 % New Bag06/22/2025 2:51 AM EDT75 mL/hr75 mL/hrNew Bag06/21/2025 5:00 PM EDT75 mL/hr75 mL/hr dextrose 5 % (D5W) infusion 100 mL/hr, intravenous, Continuous PRN, blood glucose less than 70 mg/dL, Starting on Wed06/11/25 at 0713, For 365 days, Use immediately following dextrose 50% or glucagon treatment for patients whoare unconscious or NPO. Contact prescriber for additional orders. If blood glucose is not greater than 70 mg/dL after initial treatment, repeat treatment. dextrose 5 % bolus 1,000 mL, intravenous, at 500 mL/hr, Administer over 2 Hours, Once, On Wed06/22/25 at 1230, For 1 dose New Bag06/22/2025 1:10 PM EDT1,000 mL500 mL/hr dextrose 50 % in water (D50W) 50% solution 25 mL 25 mL, intravenous, As needed, low blood sugar, blood glucose less than 70 mg/dL and unconscious orNPO with IV access, Starting on Wed06/04/25 at 1915, Push over 1-3 minutes STAT. If conscious and not NPO, immediately follow with meal tray or high protein (7 grams) snack if tray not available. IfNPO, initiate 5% dextrose in water at 100 mL/hr and contact prescriber for additional orders. If blood glucose is not greater than 70 mg/dL after initial treatment, repeat treatment. VESICANT (RED) Warning: HYPERTONIC solution. diazePAM (VALIUM) injection 1 mg 1 mg, intravenous, Once as needed, anxiety, Starting on Wed06/13/25 at 0222, For 1 dose, Look-alike/sound-alike medication - verify indication for use. Given06/13/2025 3:25 AM EDT1 mg diazePAM (VALIUM) injection 2 mg 2 mg, intravenous, Once, On Wed06/13/25 at 2215, For 1 dose, Look-alike/sound-alike medication - verify indication for use. Given06/13/2025 10:31 PM EDT2 mg diazePAM (VALIUM) injection 2 mg 2 mg, intravenous, Once, On Wed06/15/25 at 0415, For 1 dose, Look-alike/sound-alike medication - verify indication for use. Given06/15/2025 4:28 AM EDT2 mg furosemide (LASIX) injection 40 mg 40 mg, intravenous, Every 12 hours, First dose on Wed06/09/25 at 1015, Look-alike/sound-alike medication - verify indication for use. IVP rate = 20 mg/min Given06/11/2025 10:01 AM EDT40 dmPxbij2706/10/2025 9:56 PM EDT40 nvUkjws5306/10/2025 10:58 AM EDT40 mg furosemide (LASIX) injection 40 mg 40 mg, intravenous, Once in imaging, Nuclear Medicine, Starting on Wed06/15/25 at 1000, For 1 dose, Look-alike/sound-alike medication - verify indication for use. IVP rate = 20 mg/min Given06/15/2025 11:28 AM EDT40 mg gadoteridoL (PROHANCE) injection 10 mmol 20 mL 10 mmol (rounded from 11.74 mmol = 0.1 mmol/kg ?? 117.4 kg), intravenous, Once in imaging, contrast, MRI, Starting on Wed06/06/25 at 2328, For 1 dose, VESICANT (RED), Indications: magnetic resonance imaging Indications:magnetic resonance wfufxcvCdfsf10/15/2025 11:40 PM EDT10 mmol glucagon HCL injection 1 mg 1 mg, intramuscular, As needed, low blood sugar, blood glucose less than 70 mg/dL and unconscious or NPO without IV access., Starting on Wed06/11/25 at 0713, If conscious and not NPO, immediately follow with meal tray or high protein (7Grams) snack if tray not available. If NPO, initiate IV 5% Dext lita/Water at 100 mL/hr and contact prescriber for additional orders. If blood glucose is not greater than 70 mg/dL after initial treatment, repeat treatment. heparin (porcine) injection 5,000 Units 5,000 Units, subcutaneous, Every 8 hours scheduled, First dose (after last modification) on Wed06/08/25 at 1600, Look-alike/sound-alike medication - verify indication for use. Observe for bleeding. Given06/22/2025 1:11 PM EDT5,000 UnitsLeft VxaNlxbb40/31/2025 6:36 AM EDT5,000 UnitsAbdominal WrffnfPpdgi47/30/2025 9:39 PM EDT5,000 UnitsAbdominal Tissue hydrALAZINE (APRESOLINE) injection 10 mg 10 mg, intravenous, Every 4 hours PRN, high blood pressure, blood pressure outside of parameters asdetailed in Admin Instructions, Starting on 06/04/25 at 1917, For systolic blood pressure greater than 150 mmHg. May repeat times 1 dose after 5 minutes for a total of 20 mg every 4 hours. Administer at a rate of 5 mg/minute. Use if heart rate less than 60 bpm. Notify prescriber if not at goal blood pressure after 2 consecutive doses.Notify provider if systolic blood pressure is less than 90 mm Hg or Diastolic blood pressure is less than 40 mm Hg Look-alike/sound-alike medication - verify indication for use. Administer IV doses as a slow IV push; maximum rate: 5 mg/minute. Given06/05/2025 2:30 PM EDT10 mnAdhtx4306/05/2025 2:20 PM EDT10 vhAwjlq4506/05/2025 10:45 AM EDT10 mg hydrALAZINE (APRESOLINE) tablet 100 mg 100 mg, oral, Every 8 hours scheduled, First dose (after last modification) on Joanie 06/14/25 at 2200, Hold for systolic blood pressure less than 110 Look-alike/sound-alike medication - verify indication for use. Given06/22/2025 1:11 PM JPY133 xoYhvop4106/21/2025 9:31 PM OMV461 mgGiven 06/21/2025 3:29 PM LWI777 mg hydrALAZINE (APRESOLINE) tablet 25 mg 25 mg, g-tube, Every 8 hours scheduled, First dose on 06/10/25 at 1000, Hold for systolic bloodpressure less than 110 Look-alike/sound-alike medication - verify indication for use. Given06/13/2025 5:34 AM EDT25 vpDhhlu7806/12/2025 9:55 PM EDT25 sfLufwf9606/12/2025 2:43 PM EDT25 mg hydrALAZINE (APRESOLINE) tablet 25 mg 25 mg, oral, Every 8 hours scheduled, First dose (after last modification) on Wed06/13/25 at 1400,Hold for systolic blood pressure less than 110 Look-alike/sound-alike medication - verify indication for use. Given06/14/2025 1:12 PM EDT25 lhPbeuo4406/14/2025 5:04 AM EDT25 uaEvrto2306/13/2025 9:56 PM EDT25 mg hydrOXYzine (ATARAX) tablet 25 mg 25 mg, oral, Once, On 06/16/25 at 2215, For 1 dose, Look-alike/sound-alike medication - verify indication for use. Given06/16/2025 10:17 PM EDT25 mg insulin glargine (LANTUS, SEMGLEE) injection pen 10 Units 10 Units, subcutaneous, Daily, First dose on 06/11/25 at 1715, Look-alike/sound-alike medication - verify indication for use. Prime with 2 units of insulin prior to administration. Basal (long acting) insulin for subcutaneous administration only. Do not mix with any other insulin. Pre-filled pens stable 28 days at room temperature. Given06/12/2025 9:14 AM EDT10 UnitsAbdominal LnaimmFvaap59/20/2025 5:48 PM EDT10 UnitsAbdominal Tissue insulin glargine (LANTUS, SEMGLEE) injection pen 10 Units 10 Units, subcutaneous, Daily, First dose on Wed06/13/25 at 1330, Look-alike/sound-alike medication - verify indication for use. Prime with 2 units of insulin prior to administration. Basal (long acting) insulin for subcutaneous administration only. Do not mix with any other insulin. Pre-filled pens stable 28 days at room temperature. Given06/15/2025 10:50 AM EDT10 UnitsAbdominal MtcxrqPkrde67/23/2025 10:16 AM EDT 10 UnitsAbdominal GkipzhRgccj26/22/2025 2:44 PM EDT10 UnitsAbdominal Tissue insulin glargine (LANTUS, SEMGLEE) injection pen 10 Units 10 Units, subcutaneous, Daily, First dose (after last modification) on 06/16/25 at 1315, Look-alike/sound-alike medication - verify indication for use. Prime with 2 units of insulin prior to administration. Basal (long acting) insulin for subcutaneous administration only. Do not mix with any other insulin. Pre-filled pens stable 28 days at room temperature. Indications:Type 2 diabetes mellitus with other specified complication, unspecified whether terminal superintendent insulin use ([facility])Given06/19/2025 8:47 AM EDT10 UnitsAbdominal NuxbczRrisb24/27/2025 9:02 AM EDT10 UnitsAbdominal TissueGiven 06/17/2025 8:46 AM EDT10 UnitsAbdominal Tissue insulin glargine (LANTUS, SEMGLEE) injection pen 12 Units 12 Units, subcutaneous, Daily, First dose (after last modification) on Wed06/20/25 at 0900, Look-alike/sound-alike medication - verify indication for use. Prime with 2 units of insulin prior to administration. Basal (long acting) insulin for subcutaneous administration only. Do not mix with any other insulin. Pre-filled pens stable 28 days at room temperature. Indications:Type 2 diabetes mellitus with other specified complication, unspecified whether residential insulin use ([facility])Given06/22/2025 9:00 AM EDT12 UnitsAbdominal NwguawKxhrl66/30/2025 8:28 AM EDT12 UnitsLeft QdhRhdcy43/29/2025 10:22 AM EDT12 UnitsAbdominal Tissue insulin glargine (LANTUS, SEMGLEE) injection pen 2 Units 2 Units, subcutaneous, Once, On Wed06/19/25 at 1415, For 1 dose, Look-alike/sound-alike medication- verify indication for use. Prime with 2 units of insulin prior to administration. Basal (long acting) insulin for subcutaneous administration only. Do not mix with any other insulin. Pre-filled pens stable 28 days at room temperature. Indications:Type 2 diabetes mellitus with other specified complication, unspecified whether terminal superintendent insulin use ([facility])Given06/19/2025 3:21 PM EDT2 UnitsAbdominal Tissue insulin lispro (HumaLOG) injection 1-10 Units 1-10 Units, subcutaneous, 4 times daily with meals and nightly, First dose (after last modification) on Wed06/15/25 at 1700, Please give 1 units per 10 grams of carbohydrates up to 10 units per 100 grams of carbohydrates within 15 minutes of finishing meals together with correction insulin when needed. Notify prescriber if blood glucose greater than 400 mg/dL. Look-alike/sound-alike medication -verify indication for use. Prime with 2 units of insulin prior to administration. Prandial/supplemental Insulin. Pre-filled pens stable 28 days at room temperature. Insulin lispro should be administered within 15 minutes before or immediately after a meal. Given06/22/2025 1:14 PM EDT7 UnitsAbdominal PtbgouLcpyd67/31/2025 9:25 AM EDT10 UnitsAbdominal HxwaelKpcqi82/30/2025 5:02 PM EDT6 UnitsLeft Arm insulin lispro (HumaLOG) injection 1-5 Units 1-5 Units, subcutaneous, 3 times daily with meals, First dose on Wed06/11/25 at 0800, Daytime hyperglycemia dosing. For blood glucose 151-200 mg/dL, give 1 unit. For blood glucose 201-250 mg/dL, give 2 units. For blood glucose 251-300 mg/dL, give 3 units. For blood glucose 301-350 mg/dL, give 4 units. For blood glucose 351-400 mg/dL, give 5 units. Give even if NPO or meals skipped. Do NOT give more often than every 4 hours when NPO. Notify prescriber if blood glucose greater than 400 mg/dL. Look-alike/sound-alike medication - verify indication for use. Prime with 2 units of insulin prior to administration. Prandial/supplemental Insulin. Pre-filled pens stable 28 days at room temperature. Insulin lispro should be administered within 15 minutes before or immediately after a meal. Given06/11/2025 12:27 PM EDT4 UnitsAbdominal EylgxdJsaga71/20/2025 8:53 AM EDT4 UnitsAbdominal Tissue insulin lispro (HumaLOG) injection 1-5 Units 1-5 Units, subcutaneous, 4 times daily with meals and nightly, First dose on Wed06/13/25 at 1330, Please give 1 units per 15 grams of carbohydrates up to 5 units per 75 grams of carbohydrates [id number] minutes of finishing meals together with correction insulin when needed. Notify prescriber if blood glucose greater than 400 mg/dL. Look-alike/sound-alike medication - verify indication for use. Prime with 2 units of insulin prior to administration. Prandial/supplemental Insulin. Pre-filled pensstable 28 days at room temperature. Insulin lispro should be administered within 15 minutes before or immediately after a meal. Given06/15/2025 2:47 PM EDT2 UnitsAbdominal OycdnmEhpwg80/24/2025 10:50 AM EDT2 UnitsAbdominal BhevmkWfcap16/23/2025 1:10 PM EDT5 UnitsAbdominal Tissue insulin lispro (HumaLOG) injection 1-5 Units 1-5 Units, subcutaneous, 4 times daily with meals and nightly, First dose on Wed06/13/25 at 1330, Daytime hyperglycemia dosing. For blood glucose 151-200 mg/dL, give 1 unit. For blood glucose 201-250 mg/dL, give 2 units. For blood glucose 251-300 mg/dL, give 3 units. For blood glucose 301-350 mg/dL, give 4 units. For blood glucose 351-400 mg/dL, give 5 units. Give even if NPO or meals skipped. Do NOT give more often than every 4 hours when NPO. Notify prescriber if blood glucose greater than 400 mg/dL. Look-alike/sound-alike medication - verify indication for use. Prime with 2 units of insulin prior to administration. Prandial/supplemental Insulin. Pre-filled pens stable 28 days at room tem perature. Insulin lispro should be administered within 15 minutes before or immediately after a meal. Given06/22/2025 1:14 PM EDT2 UnitsLeft PenYptfh58/31/2025 9:25 AM EDT1 UnitsLeft JwtVgeng28/30/2025 9:46 PM EDT1 UnitsAbdominal Tissue insulin lispro (HumaLOG) injection 2-10 Units 2-10 Units, subcutaneous, Every 4 hours, First dose on Wed06/11/25 at 1500, Hyperglycemia dosing. For blood glucose 181-220 mg/dL, give 2 units. For blood glucose 221-260 mg/dL, give 4 units. For blood glucose 261-300 mg/dL, give 6 units. For blood glucose 301-350 mg/dL, give 8 units. For blood glucose 351-400 mg/dL, give 10 units. Give even if NPO or meals skipped. Do NOT give more often then every 4 hours when NPO. Look-alike/sound-alike medication - verify indication for use. Prime with 2 units of insulin prior to administration. Prandial/supplemental Insulin. Pre-filled pens stable 28 days at room temperature. Insulin lispro should be administered within 15 minutes before or immediately after a meal. Given06/12/2025 4:18 AM EDT2 UnitsAbdominal EmkmrqMrmue50/20/2025 11:30 PM EDT2 UnitsAbdominal KeghiaKdpcq44/20/2025 7:40 PM EDT6 UnitsAbdominal Tissue insulin lispro (HumaLOG) injection 2-10 Units 2-10 Units, subcutaneous, 3 times daily with meals, First dose on Wed06/12/25 at 1700, Daytime hyperglycemia dosing. For blood glucose 151-200 mg/dL, give 2 units. For blood glucose 201-250 mg/dL, give 4 units. For blood glucose 251-300 mg/dL, give 6 units. For blood glucose 301-350 mg/dL, give 8 units. For blood glucose 351-400 mg/dL, give 10 units. Give even if NPO or meals skipped. Do NOT give more often then every 4 hours when NPO. Look-alike/sound-alike medication - verify indication for use. Prime with 2 units of insulin prior to administration. Prandial/supplemental Insulin. Pre-filled pens stable 28 days at room temperature. Insulin lispro should be administered within 15 minutes before or immediately after a meal. Given06/13/2025 1:04 PM EDT4 UnitsAbdominal UulvixIhjlg19/22/2025 8:25 AM EDT2 UnitsAbdominal UsfccpEagsj64/21/2025 5:14 PM EDT4 UnitsLeft Arm insulin lispro (HumaLOG) injection 4 Units 4 Units, subcutaneous, Every 4 hours, First dose on Wed06/11/25 at 1900, Hold if tube feeds held were discontinued Look-alike/sound-alike medication - verify indication for use. Prime with 2 units of insulin prior to administration. Prandial/supplemental Insulin. Pre-filled pens stable 28 days at room temperature. Insulin lispro should be administered within 15 minutes before or immediately after a meal. Given06/12/2025 6:28 AM EDT4 UnitsAbdominal PvbkvnGoltx10/21/2025 4:20 AM EDT4 UnitsAbdominal MfyqhgLhrqo27/20/2025 11:31 PM EDT4 UnitsAbdominal Tissue kit prep Tc 99m-pentetic acid 20 mg recon soln 5 millicurie 5 millicurie, intravenous, Once in imaging, contrast, Radiopharmaceutical, Starting on Wed06/15/25at 0959, For 1 dose, Indications: diagnostic imaging Indications:diagnostic imaging labetaloL (NORMODYNE,TRANDATE) injection 10 mg 10 mg, intravenous, Every 5 min PRN, high blood pressure, blood pressure outside of parameters as detailed in Admin Instructions, Starting on Wed06/04/25 at 1916, For systolic blood pressure greaterthan 150 mmHg. May repeat 3 times in one hour. Administer 10 mg IVP over 1 minute. Use if heart rate is 60 bpm or greater. Notify prescriber if not at goal blood pressure after 3 consecutive doses. Notify provider if systolic blood pressure is less than 90 mm Hg or Diastolic blood pressure is less than 40 mm Hg Look-alike/sound-alike medication - verify indication for use. Given06/10/2025 7:27 PM EDT10 wvDmwzo4706/10/2025 5:17 PM EDT10 kkBnptj9006/10/2025 4:33 AM EDT10 mg levETIRAcetam (KEPPRA) 750 mg in sodium chloride 0.9 % 107.5 mL IVPB 750 mg, intravenous, at 430 mL/hr, Administer over 15 Minutes, Every 12 hours, First dose on Wed06/04/25 at 2300, Look-alike/sound-alike medication. Verify indication for use. New 06/09/2025 3:32 AM JUP369 mg430 mL/hrNew 06/08/2025 2:00 PM EQD973 mg 430 mL/hrNew 06/08/2025 2:36 AM TRJ369 mg430 mL/hr levETIRAcetam (KEPPRA) 750 mg in sodium chloride 0.9 % 107.5 mL IVPB 750 mg, intravenous, at 430 mL/hr, Administer over 15 Minutes, Every 12 hours, First dose (after last modification) on Wed06/09/25 at 1400, For 7 doses, Look-alike/sound-alike medication. Verify indication for use. New 06/12/2025 2:29 PM RAR110 mg430 mL/hrNew Bag06/12/2025 4:15 AM KQK809 mg 430 mL/hrNew Bag06/11/2025 2:41 PM GBW195 mg430 mL/hr lidocaine (URO-JET) 2 % jelly 1 Application 1 Application, urethral, Once, On Wed06/22/25 at 1330, For 1 dose Given06/22/2025 1:30 PM EDT1 Application lisinopriL (PRINIVIL,ZESTRIL) tablet 40 mg 40 mg, nasogastric, Daily, First dose on Wed06/06/25 at 1030, Hold for systolic blood pressure less than 110 Look-alike/sound-alike medication - verify indication for use. Given06/13/2025 8:26 AM EDT40 thHcywd2806/12/2025 10:43 AM EDT40 lsVzfgq7906/11/2025 8:38 AM EDT40 mg lisinopriL (PRINIVIL,ZESTRIL) tablet 40 mg 40 mg, oral, Daily, First dose (after last modification) on Joanie 06/14/25 at 0900, Hold for systolicblood pressure less than 110 Look-alike/sound-alike medication - verify indication for use. Given06/14/2025 10:30 AM EDT40 mg magnesium oxide (MAGOX) tablet 400 mg 400 mg, g-tube, Daily, First dose on 06/09/25 at 1015 Given06/13/2025 8:26 AM TEZ329 hgLfyjq4306/12/2025 10:43 AM TJR492 mgGiven 06/11/2025 8:37 AM GWP045 mg magnesium oxide (MAGOX) tablet 400 mg 400 mg, oral, Daily, First dose (after last modification) on Joanie 06/14/25 at 0900 Given06/14/2025 10:30 AM DLQ958 mg magnesium sulfate IVPB 2000 mg/50 mL in iso-osmotic water (40 mg/mL premix) 2,000 mg, intravenous, at 25 mL/hr, Administer over 120 Minutes, As needed, for magnesium level 1.7to 1.9 mg/dL or ionized magnesium level 0.45 to 0.5 mmol/L, Starting on Wed06/04/25 at 1915, Use premix solution. Default to ionized magnesium level in cases where patient has both magnesium and ionized magnesium results. If administered, check ionized magnesium (or total magnesium if ionized magnesium unavailable) level 4 hours after infusion. New Bag06/11/2025 4:43 AM EDT2,000 mg25 mL/hr magnesium sulfate IVPB 4000 mg/100 mL in iso-osmotic water (40 mg/mL premix) 4,000 mg, intravenous, at 25 mL/hr, Administer over 240 Minutes, As needed, for magnesium level 1.6mg/mL or less, or ionized magnesium level 0.44 mmol/L or less, Starting on Wed06/04/25 at 1915, Use premix solution. Default to ionized magnesium level in cases where patient has both magnesium and ionized magnesium results. If administered, check ionized magnesium (or total magnesium if ionized magnesium unavailable) level 4 hours after infusion. melatonin (CIRCADIN) tablet 5 mg 5 mg, oral, Nightly, First dose on Joanie 06/14/25 at 2200 Given06/21/2025 9:32 PM EDT5 fdFewgt6906/20/2025 9:26 PM EDT5 hnTmzfb4306/19/2025 10:00 PM EDT5 mg niCARdipine (CARDENE-IV) infusion 40 mg/200 mL in iso-osmotic sodium chloride (0.2 mg/mL premix) 2.5-15 mg/hr (12.5-75 mL/hr), intravenous, Continuous, Starting on Wed06/04/25 at 1922, Notify prescriber if rate exceeds 15 mg/hour Administer through large peripheral vein or central line; Change the infusion site every 12 hours if administered via peripheral vein. Look-alike/sound-alike medication. Verify indication for use. Do not combine or run in the same line as other medications., Monitoring Goals: SBP, Monitoring Goal Direction: Less than or Equal to, Please specify: 150, Starting Dose: 5 mg/hour, Titration Dose Range (range 2.5 to 5 mg/hour): 2.5 to 5 mg/hour, Titration Frequency -As Frequent As: 3 minutes Rate/Dose Jrmkpw2506/09/2025 11:45 AM EDT5 mg/hr25 mL/hrRate/Dose Obqwbn1806/09/2025 11:32 AM EDT7.5 mg/hr37.5 mL/hrRate/Dose Upwarm0106/09/2025 11:22 AM EDT10 mg/hr50 mL/hr OLANZapine (ZyPREXA) injection 2.5 mg 2.5 mg, intramuscular, Once, On Wed06/05/25 at 2200, For 1 dose, Reconstitute vial with 2.1 mL of SWFI. Resulting solution is 5 mg/mL. Look-alike/sound-alike medication - verify indication for use. Given06/06/2025 1:51 AM EDT2.5 mgLeft Anterior Thigh OLANZapine (ZyPREXA) injection 5 mg 5 mg, intramuscular, Once as needed, agitation, prior to mri, Starting on Wed06/06/25 at 2110, For1 dose, Reconstitute vial with 2.1 mL of SWFI. Resulting solution is 5 mg/mL. Look-alike/sound-alike medication - verify indication for use. Given06/06/2025 10:40 PM EDT5 mgRight Anterior Thigh potassium chloride (K-TAB,KLOR-CON) CR tablet 20-60 mEq 20-60 mEq, oral, As needed, Potassium Supplementation, Starting on Wed06/09/25 at 0959, Progress to oral potassium replacement when patient tolerating oral intake. If dose administered, recheck potassium level 4 hours after last dose. For potassium level 3.4 to 3.7 mmol/L =20 mEq. For potassium level 3.1 to 3.3 mmol/L =40 mEq. For potassium level 3 mmol/L or less =60 mEq. Do not crush or chew. potassium chloride (KAYCIEL) 20 mEq/15 mL solution 20 mEq 20 mEq, g-tube, Daily, First dose on Wed06/09/25 at 1015, Hold for potassium more than 4.5 Must dilute before use - Mix in 3-8 ounces of water or juice before administration When administering in feeding tube, flush before and after per policy and monitor potassium levels Given06/11/2025 8:37 AM EDT20 lXuSajeg12/19/2025 8:16 AM EDT20 mEqGiven 06/09/2025 11:21 AM EDT20 mEq potassium chloride (KAYCIEL) 20 mEq/15 mL solution 20-50 mEq 20-50 mEq, oral, As needed, potassium replacement, Starting on Wed06/04/25 at 1915, Progress to oral potassium replacement when patient tolerating oral intake. If dose administered, recheck potassium level 4 hours after last dose. For potassium level 3.4 to 3.8 mmol/L and Serum Creatinine 1.2 or less=30 mEq (22.5mL). For potassium level 3.1 to 3.3 mmol/L and Serum Creatinine 1.2 or less=40 mEq (30mL). For potassium level 3 mmol/L or less and Serum Creatinine 1.2 or less=50 mEq (37.5mL). For potassium level 3.4 to 3.8 mmol/L and Serum Creatinine greater than 1.2=20 mEq (15mL). For potassium level 3.1 to 3.3 mmol/L and Serum Creatinine greater than 1.2=30 mEq (22.5mL). For potassium level 3 m mol/L or less and Serum Creatinine greater than 1.2=40 mEq (30mL). Must dilute before use - Mix in 3-8 ounces of water or juice before administration When administering in feeding tube, flush before and after per policy and monitor potassium levels Given06/08/2025 9:35 AM EDT30 mLxTbqwr45/16/2025 5:47 AM EDT20 mEq potassium chloride (KAYCIEL) 20 mEq/15 mL solution 20-60 mEq 20-60 mEq, oral, As needed, Potassium Supplementation, Starting on Wed06/09/25 at 0959, Progress to oral potassium replacement when patient tolerating oral intake. If dose administered, recheck potassium level 4 hours after last dose. For potassium level 3.4 to 3.7 mmol/L =20 mEq. For potassium level 3.1 to 3.3 mmol/L =40 mEq. For potassium level 3 mmol/L or less =60 mEq. Must dilute before use - Mix in 3-8 ounces of water or juice before administration When administering in feeding tube, flush before and after per policy and monitor potassium levels potassium chloride IVPB 10 mEq/100 mL in water (0.1 mEq/mL premix) 10 mEq, intravenous, at 100 mL/hr, Administer over 60 Minutes, As needed, for potassium replacement, Starting on Wed06/04/25 at 1915, Administer Potassium Chloride IVPB in 10 mEq increments. Maximuminfusion rates: Central Line = 20 mEq/hour; Peripheral Line = 10 mEq/hour (10 mEq/100 mL). If dose administered, recheck potassium level 1 hour after infusion complete. For potassium level 3.4 to 3.8mmol/L and Serum Creatinine 1.2 or less = 30 mEq For potassium level 3.1 to 3.3 mmol/L and Serum Creatinine 1.2 or less = 40 mEq For potassium level 3 mmol/L or less and Serum Creatinine 1.2 or less = 50 mEq For potassium level 3.4 to 3.8 mmol/L and Serum Creatinine greater than 1.2 = 20 mEq For potassium level 3.1 to 3.3 mmol/L and Serum Creatinine greater than 1.2 = 30 mEq For potassium level 3mmol/L or less and Serum Creatinine greater than 1.2 = 40 mEq VESICANT (YELLOW) Infuse each 10 mEq over a minimum of 1 hour. New Bag06/06/2025 12:15 AM EDT10 wOn365 mL/hrNew Bag06/05/2025 8:34 PM EDT10 mEq 100 mL/hrRate/Dose Bcakut3406/05/2025 10:49 AM ZTN475 mL/hr potassium chloride IVPB 10 mEq/100 mL in water (0.1 mEq/mL premix) 10 mEq, intravenous, at 100 mL/hr, Administer over 60 Minutes, As needed, POTASSIUM REPLACEMENT, Starting on 06/09/25 at 0959, IV if unable to use oral/enteral with the current dosing strategies For potassium level 3.4 to 3.7 mmol/L =20 mEq. For potassium level 3.1 to 3.3 mmol/L =40 mEq. For potassium level 3 mmol/L or less =60 mEq. Use central line when applicable. Recheck potassium level 1 hour after total IVPB infusion complete With each potassium result continue the replacement orders as needed VESICANT (YELLOW) Infuse each 10 mEq over a minimum of 1 hour. potassium chloride IVPB 10 mEq/50 mL in water (0.2 mEq/mL premix) 10 mEq, intravenous, at 50 mL/hr, Administer over 1 Hours, As needed, for potassium replacement, Starting on 06/04/25 at 1915, Administer Potassium Chloride IVPB in 10 mEq increments. Maximum infusion rates: Central Line = 20 mEq/hour. Administer via Central Line Only. If dose administered, recheck potassium level 1 hour after infusion complete. For potassium level 3.4 to 3.8 mmol/L and SerumCreatinine 1.2 or less = 30 mEq For potassium level 3.1 to 3.3 mmol/L and Serum Creatinine 1.2 or less = 40 mEq For potassium level 3 mmol/L or less and Serum Creatinine 1.2 or less = 50 mEq For potassium level 3.4 to 3.8 mmol/L and Serum Creatinine greater than 1.2 = 20 mEq For potassium level 3.1to 3.3 mmol/L and Serum Creatinine greater than 1.2 = 30 mEq For potassium level 3 mmol/L or less and Serum Creatinine greater than 1.2 = 40 mEq VESICANT (YELLOW) New 06/05/2025 5:29 PM EDT10 mEq50 mL/hr QUEtiapine (SEROquel) tablet 12.5 mg 12.5 mg, oral, Nightly, First dose on Wed06/15/25 at 2200, Look-alike/sound-alike medication - verify indication for use. Given06/15/2025 9:02 PM EDT12.5 mg QUEtiapine (SEROquel) tablet 25 mg 25 mg, oral, Nightly, First dose (after last modification) on 06/16/25 at 2200, Look-alike/sound-alike medication - verify indication for use. Given06/21/2025 9:31 PM EDT25 beLvqkv9606/20/2025 9:26 PM EDT25 kkYxuqm4006/19/2025 9:02 PM EDT25 mg sod phos di, mono-K phos mono (K-PHOS NEUTRAL) 250 mg tablet 2 tablet 2 tablet, oral, As needed, for phosphorous level 2.3 mg/dL or less. Do not administer if potassium is more than 4.5, Starting on Wed06/09/25 at 0959, If dose administered, recheck phosphorus level 4hours after last dose. Look-alike/sound-alike medication - verify indication for use. Give with a full glass of water. sodium chloride 0.45 % infusion 75 mL/hr, intravenous, Continuous, Starting on Wed06/12/25 at 1415, For 1 day New 06/13/2025 8:50 AM EDT75 mL/hr75 mL/hrRate/Dose Ffnxej3206/13/2025 3:53 AM EDT75 mL/juGysqboxzf67/22/2025 3:27 AM EDT75 mL/hr sodium chloride 0.45 % infusion 50 mL/hr, intravenous, Continuous, Starting on Wed06/14/25 at 1345, For 1 day Hmnainnfq43/23/2025 10:31 PM EDT50 mL/hrRate/Dose Xnainy2406/14/2025 3:15 PM EDT50 mL/hrNew Bag06/14/2025 3:14 PM EDT50 mL/hr50 mL/hr sodium chloride 0.45 % infusion 50 mL/hr, intravenous, Continuous, Starting on Wed06/18/25 at 1800 New Bag06/21/2025 5:10 AM EDT50 mL/hr50 mL/hrNew Bag06/20/2025 5:51 AM EDT50 mL/hr50 mL/hrNew Bag06/19/2025 12:20 PM EDT50 mL/hr50 mL/hr sodium chloride 0.9 % flush 10 mL 10 mL, intravenous, Once in imaging, line care, MRI, Starting on Wed06/06/25 at 2328, For 1 dose Given06/06/2025 11:40 PM EDT10 mL sodium chloride 0.9 % flush 10 mL 10 mL, intravenous, Once in imaging, line care, Nuclear Medicine, Starting on Wed06/15/25 at 0959,For 1 dose Given06/15/2025 11:23 AM EDT10 mL sodium chloride 0.9 % infusion 75 mL/hr, intravenous, Continuous, Starting on Wed06/12/25 at 1100 New 06/12/2025 11:01 AM EDT75 mL/hr75 mL/hr sodium chloride 0.9 % infusion 50 mL/hr, intravenous, Continuous, Starting on Wed06/13/25 at 1615, For 12 hours New 06/13/2025 5:21 PM EDT50 mL/hr50 mL/hr sodium chloride 0.9 % infusion 50 mL/hr, intravenous, Continuous, Starting on Wed06/14/25 at 1100, For 12 hours New 06/14/2025 11:05 AM EDT50 mL/hr50 mL/hr sodium phosphate 20 mmol in sodium chloride 0.9 % 100 mL IVPB 20 mmol, intravenous, at 26.7 mL/hr, Administer over 4 Hours, As needed, for phosphorous level 2.3 mg/dL or less, Starting on 06/09/25 at 0959, Administer over 4 hours via dedicated line(central line). If administered, recheck phosphorus level 4 hours after infusion complete. Infuse using central line access. sodium phosphate 20 mmol in sodium chloride 0.9 % 250 mL IVPB 20 mmol, intravenous, at 42.8 mL/hr, Administer over 6 Hours, As needed, for phosphorous level 2.3 mg/dL or less, Starting on 06/09/25 at 0959, Administer over 6 hours via dedicated line (peripheral line). If administered, recheck phosphorus level 4 hours after infusion complete. technetium mertiatide (MAG3) injection 5 millicurie 5 millicurie, intravenous, Once in imaging, contrast, Radiopharmaceutical, Starting on Wed06/15/25at 1133, For 1 dose, Indications: diagnostic imaging Indications:diagnostic kgkcghoDmewy83/24/2025 11:23 AM EDT4.4 millicuries thiamine (B-1) 500 mg in sodium chloride 0.9 % 50 mL IVPB 500 mg, intravenous, at 110 mL/hr, Administer over 30 Minutes, 3 times daily, First dose on Wed06/08/25 at 1400, For 5 days, Look-alike/sound-alike medication. Verify indication for use. New Bag06/13/2025 5:35 AM [id number] mg110 mL/hrNew Bag06/12/2025 10:00 PM [id number] mg 110 mL/hrNew Bag06/12/2025 2:50 PM [id number] mg110 mL/hrdocumented in this encounter Active and Recently Administered Medications Times are shown in EDT.Medication Order/ amLODIPine (NORVASC) tablet 10 mg 10 mg, oral, Daily, First dose (after last modification) on Joanie 06/14/25 at 0900, Hold for systolicblood pressure less than 110 Look-alike/sound-alike medication - verify indication for use. Avoid grapefruit juice. * 1019 (Given - Provider: Laura Jeff RN) * 0826 (Given - Provider: Peter Rubio, RN) * 0832 (Given - Provider: Peter Rubio, RN) aspirin EC tablet 81 mg 81 mg, oral, Daily, First dose on Wed06/16/25 at 1215, Do not crush or chew. * 1019 (Given - Provider: Laura Jeff RN) * 0826 (Given - Provider: Peter Rubio RN) * 0832 (Given - Provider: Peter Rubio, RN) atorvastatin (LIPITOR) tablet 20 mg 20 mg, oral, Nightly, First dose on Wed06/14/25 at 2200, Look-alike/sound-alike medication - verify indication for use. * 2125 (Given - Provider: Fátima Alvarez, GEOFF) * 2132 (Given - Provider: Cooper Zavala, RN) carvediloL (COREG) tablet 12.5 mg 12.5 mg, oral, 2 times daily, First dose (after last modification) on Wed06/15/25 at 2100, Hold for systolic blood pressure less than 110 or heart rate less than 60 Give with meal or snack. Look-alike/sound-alike medication - verify indication for use. * 1019 (Given - Provider: Laura Jeff RN) * 2125 (Given - Provider: Fátima Alvarez, RN) * 08 (Given - Provider: Peter Rubio, GEOFF) * 213 (Given - Provider: Cooper Zavala, RN) * 0832 (Given - Provider: Peter Rubio, RN) cefTRIAXone (ROCEPHIN) 1,000 mg in sodium chloride 0.9 % 50 mL IVPB W/ADAPTER 1,000 mg, intravenous, at 100 mL/hr, Administer over 30 Minutes, Every 24 hours, First dose on Wed06/17/25 at 1600, For 7 doses, For Vial-2-Bag: Attach bag and vial to adapter - Use immediately after activating; dissolve drug prior to administration., Indication: UTI * 1750 (New Bag - Provider: Laura Jeff RN) * 1820 (Stop Bag - Provider: Laura Jeff RN) * 1528 (New Bag - Provider: Peter Rubio RN) * 1558 (Stop Bag - Provider: Peter Rubio RN) * 1647 (New Bag - Provider: Peter Rubio, RN) * 1717 (Stop Bag - Provider: Peter Rubio, RN) dextrose 5 % bolus (COMPLETED) 1,000 mL, intravenous, at 500 mL/hr, Administer over 2 Hours, Once, On Wed06/22/25 at 1230, For 1 dose * 1310 (New Bag - Provider: Peter Rubio RN) * 1510 (Stop Bag - Provider: Peter Rubio RN) heparin (porcine) injection 5,000 Units 5,000 Units, subcutaneous, Every 8 hours scheduled, First dose (after last modification) on Wed06/08/25 at 1600, Look-alike/sound-alike medication - verify indication for use. Observe for bleeding. * 0531 (Given - Provider: Fátima Alvarez RN) * 1332 (Given - Provider: Laura Jeff, GEOFF) * 212 (Given - Provider: Fátima Alvarez RN) * 0511 (Given - Provider: Fátima Alvarez RN) * 1529 (Given - Provider: Peter Rubio RN) * 2139 (Given - Provider: Cooper Zavala, RN) * 0636 (Given - Provider: Cooper Zavala, RN) * 1311 (Given - Provider: Peter Rubio, GEOFF) hydrALAZINE (APRESOLINE) tablet 100 mg 100 mg, oral, Every 8 hours scheduled, First dose (after last modification) on Wed06/14/25 at 2200, Hold for systolic blood pressure less than 110 Look-alike/sound-alike medication - verify indication for use. * 0532 (Given - Provider: Fátima Alvarez RN) * 1332 (Given - Provider: Laura Jeff RN) * 212 (Given - Provider: Fátima Alvarez RN) * 0511 (Given - Provider: Fátima Alvarez RN) * 1529 (Given - Provider: Peter Rubio RN) * 213 (Given - Provider: Cooper Zavala, RN) * 0636 (Not Given - Provider: Cooper Zavala, RN - Reason: Order parameters not met) * 1311 (Given - Provider: Peter Rubio RN) insulin glargine (LANTUS, SEMGLEE) injection pen 12 Units 12 Units, subcutaneous, Daily, First dose (after last modification) on Wed06/20/25 at 0900, Look-alike/sound-alike medication - verify indication for use. Prime with 2 units of insulin prior to administration. Basal (long acting) insulin for subcutaneous administration only. Do not mix with any other insulin. Pre-filled pens stable 28 days at room temperature. * 1022 (Given - Provider: Laura Jeff RN) * 0828 (Given - Provider: Peter Rubio RN) * 0900 (Given - Provider: Peter Rubio RN) insulin lispro (HumaLOG) injection 1-10 Units 1-10 Units, subcutaneous, 4 times daily with meals and nightly, First dose (after last modification) on Wed06/15/25 at 1700, Please give 1 units per 10 grams of carbohydrates up to 10 units per 100 grams of carbohydrates within 15 minutes of finishing meals together with correction insulin when needed. Notify prescriber if blood glucose greater than 400 mg/dL. Look-alike/sound-alike medication -verify indication for use. Prime with 2 units of insulin prior to administration. Prandial/supplemental Insulin. Pre-filled pens stable 28 days at room temperature. Insulin lispro should be administered within 15 minutes before or immediately after a meal. * 1019 (Given - Provider: Laura Jeff RN) * 1329 (Given - Provider: Laura Jeff RN) * 1819 (Given - Provider: Laura Jeff RN) * 2200 (Not Given - Provider: Fátima Alvarez RN - Reason: Order parameters not met) * 0800 (Not Given - Provider: Peter Rubio RN - Reason: Contraindicated - Comment: patient refusedmeal) * 1200 (Not Given - Provider: Peter Rubio RN - Reason: Contraindicated - Comment: patient not eating lunch) * 1702 (Given - Provider: Peter Rubio RN - Comment: 62 grams) * 2200 (Not Given - Provider: Cooper Zavala RN - Reason: Order parameters not met - Comment: PT NOT EATING) * 0925 (Given - Provider: Peter Rubio RN - Comment: 175g) * 1314 (Given - Provider: Peter Rubio RN - Comment: 75g) * 1700 (Not Given - Provider: Peter Rubio RN - Reason: Contraindicated - Comment: meal skipped) insulin lispro (HumaLOG) injection 1-5 Units 1-5 Units, subcutaneous, 4 times daily with meals and nightly, First dose on Wed06/13/25 at 1330, Daytime hyperglycemia dosing. For blood glucose 151-200 mg/dL, give 1 unit. For blood glucose 201-250 mg/dL, give 2 units. For blood glucose 251-300 mg/dL, give 3 units. For blood glucose 301-350 mg/dL, give 4 units. For blood glucose 351-400 mg/dL, give 5 units. Give even if NPO or meals skipped. Do NOT give more often than every 4 hours when NPO. Notify prescriber if blood glucose greater than 400 mg/dL. Look-alike/sound-alike medication - verify indication for use. Prime with 2 units of insulin prior to administration. Prandial/supplemental Insulin. Pre-filled pens stable 28 days at room tem perature. Insulin lispro should be administered within 15 minutes before or immediately after a meal. * 1021 (Given - Provider: Laura Jeff RN) * 1329 (Given - Provider: Laura Jeff RN) * 1700 (Not Given - Provider: Laura Jeff RN - Reason: Order parameters not met) * 2200 (Not Given - Provider: Fátima Alvarez RN - Reason: Order parameters not met) * 0800 (Not Given - Provider: Peter Rubio RN - Reason: Contraindicated) * 1200 (Not Given - Provider: Peter Rubio RN - Reason: Contraindicated - Comment: 148) * 1703 (Given - Provider: Peter Rubio RN - Comment: 240) * 2146 (Given - Provider: Cooper Zavala RN) * 0925 (Given - Provider: Peter Rubio RN) * 1314 (Given - Provider: Peter Rubio RN) * 1700 (Not Given - Provider: Peter Rubio RN - Reason: Contraindicated - Comment: 143) lidocaine (URO-JET) 2 % jelly 1 Application (COMPLETED) 1 Application, urethral, Once, On Wed06/22/25 at 1330, For 1 dose * 1330 (Given - Provider: Peter Rubio RN) melatonin (CIRCADIN) tablet 5 mg 5 mg, oral, Nightly, First dose on Wed06/14/25 at 2200 * 2125 (Given - Provider: Fátima Alvarez RN) * 213 (Given - Provider: Cooper Zavala, RN) OLANZapine (ZyPREXA) injection 5 mg 5 mg, intramuscular, Once, On Wed06/20/25 at 2200, For 1 dose, Reconstitute vial with 2.1 mL of SWFI. Resulting solution is 5 mg/mL. Look-alike/sound-alike medication - verify indication for use. * 1200 (Not Given - Provider: Peter Rubio RN - Reason: Contraindicated) QUEtiapine (SEROquel) tablet 25 mg 25 mg, oral, Nightly, First dose (after last modification) on Wed06/16/25 at 2200, Look-alike/sound-alike medication - verify indication for use. * 2125 (Given - Provider: Fátima Alvarez RN) * 2130 (Given - Provider: Cooper Zavala, RN) Medication Order dextrose 2.5 % in water, 1,000 mL infusion (CANCELED) 75 mL/hr, intravenous, Continuous, Starting on Wed06/21/25 at 1400, Hold for sodium less than 140 solution= dextrose 2.5 % * 1700 (New Bag - Provider: Peter Rubio RN) * 0251 (New Bag - Provider: Cooper Zavala, RN) * 1225 (Stop Bag - Provider: Peter Rubio RN - Comment: [Order ends at this time. Document the following action when infusion is complete: Stop Bag]) sodium chloride 0.45 % infusion (CANCELED) 50 mL/hr, intravenous, Continuous, Starting on Wed06/18/25 at 1800 * 0551 (New Bag - Provider: Fátima Alvarez RN) * 0510 (New Bag - Provider: Fátima Alvarez, GEOFF) * 1348 (Stop Bag - Provider: Peter Rubio RN - Comment: [Order ends at this time. Document the following action when infusion is complete: Stop Bag]) Medication Order06/20/// barium sulfate (E-Z-HD) 98 % suspension 340 g 340 g, oral, Once in imaging, contrast, barium sulfate (E-Z-HD) 98 % suspension, Starting on Wed06/12/25 at 1002, For 1 dose barium sulfate (VARIBAR HONEY) 40 % (w/v) 29% (w/w) suspension 60 mL 60 mL, oral, Once in imaging, contrast, barium sulfate (VARIBAR HONEY) 40 % (w/v) 29% (w/w) suspension, Starting on Wed06/12/25 at 1002, For 1 dose barium sulfate (VARIBAR PUDDING) 40 % (w/v), 30% (w/w) oral paste 60 mL 60 mL, oral, Once in imaging, contrast, barium sulfate (VARIBAR PUDDING) 40 % (w/v), 30% (w/w) oralpaste, Starting on Wed06/12/25 at 1002, For 1 dose calcium gluconate 3,000 mg in sodium chloride 0.9 % 100 mL IVPB 3,000 mg, intravenous, at 43.3 mL/hr, Administer over 3 Hours, As needed, ionized calcium 3.5 to 3.9 mg/dL, Starting on 06/09/25 at 1000, IV Administration of calcium via a central or deep vein preferred. Avoid administration in small hand veins VESICANT (RED) calcium gluconate 4,000 mg in sodium chloride 0.9 % 250 mL IVPB 4,000 mg, intravenous, at 72.5 mL/hr, Administer over 4 Hours, As needed, ionized calcium 3.4 mg/dLor less, Starting on 06/09/25 at 1000, IV administration of calcium via a central or deep vein is preferred. Avoid administration in small hand veins. VESICANT (RED) calcium gluconate IVPB 2000 mg/100 mL (20 mg/mL premix) 2,000 mg, intravenous, at 50 mL/hr, Administer over 2 Hours, As needed, ionized calcium 4 to 4.3 mg/dL, Starting on 06/09/25 at 1000, IV Administration of calcium via a central or deep vein preferred. Avoid administration in small hand veins VESICANT (RED) dextrose (GLUTOSE) 40 % gel 15 g 15 g, oral, As needed, low blood sugar, blood glucose less than 70 mg/dL, Starting on Wed06/11/25 at 0713, If patient conscious and taking PO. If blood glucose is not greater than 70 mg/dL after initial treatment, repeat treatment. dextrose 5 % (D5W) infusion 100 mL/hr, intravenous, Continuous PRN, blood glucose less than 70 mg/dL, Starting on Wed06/11/25 at 0713, For 365 days, Use immediately following dextrose 50% or glucagon treatment for patients whoare unconscious or NPO. Contact prescriber for additional orders. If blood glucose is not greater than 70 mg/dL after initial treatment, repeat treatment. dextrose 50 % in water (D50W) 50% solution 25 mL 25 mL, intravenous, As needed, low blood sugar, blood glucose less than 70 mg/dL and unconscious orNPO with IV access, Starting on Wed06/04/25 at 1915, Push over 1-3 minutes STAT. If conscious and not NPO, immediately follow with meal tray or high protein (7 grams) snack if tray not available. IfNPO, initiate 5% dextrose in water at 100 mL/hr and contact prescriber for additional orders. If blood glucose is not greater than 70 mg/dL after initial treatment, repeat treatment. VESICANT (RED) Warning: HYPERTONIC solution. glucagon HCL injection 1 mg 1 mg, intramuscular, As needed, low blood sugar, blood glucose less than 70 mg/dL and unconscious or NPO without IV access., Starting on Wed06/11/25 at 0713, If conscious and not NPO, immediately follow with meal tray or high protein (7Grams) snack if tray not available. If NPO, initiate IV 5% Dext lita/Water at 100 mL/hr and contact prescriber for additional orders. If blood glucose is not greater than 70 mg/dL after initial treatment, repeat treatment. hydrALAZINE (APRESOLINE) injection 10 mg 10 mg, intravenous, Every 4 hours PRN, high blood pressure, blood pressure outside of parameters asdetailed in Admin Instructions, Starting on Wed06/04/25 at 1917, For systolic blood pressure greater than 150 mmHg. May repeat times 1 dose after 5 minutes for a total of 20 mg every 4 hours. Administer at a rate of 5 mg/minute. Use if heart rate less than 60 bpm. Notify prescriber if not at goal blood pressure after 2 consecutive doses.Notify provider if systolic blood pressure is less than 90 mm Hg or Diastolic blood pressure is less than 40 mm Hg Look-alike/sound-alike medication - verify indication for use. Administer IV doses as a slow IV push; maximum rate: 5 mg/minute. kit prep Tc 99m-pentetic acid 20 mg recon soln 5 millicurie 5 millicurie, intravenous, Once in imaging, contrast, Radiopharmaceutical, Starting on Wed06/15/25at 0959, For 1 dose, Indications: diagnostic imaging labetaloL (NORMODYNE,TRANDATE) injection 10 mg 10 mg, intravenous, Every 5 min PRN, high blood pressure, blood pressure outside of parameters as detailed in Admin Instructions, Starting on Wed06/04/25 at 1916, For systolic blood pressure greaterthan 150 mmHg. May repeat 3 times in one hour. Administer 10 mg IVP over 1 minute. Use if heart rate is 60 bpm or greater. Notify prescriber if not at goal blood pressure after 3 consecutive doses. Notify provider if systolic blood pressure is less than 90 mm Hg or Diastolic blood pressure is less than 40 mm Hg Look-alike/sound-alike medication - verify indication for use. magnesium sulfate IVPB 2000 mg/50 mL in iso-osmotic water (40 mg/mL premix) (Linked Group 1) 2,000 mg, intravenous, at 25 mL/hr, Administer over 120 Minutes, As needed, for magnesium level 1.7to 1.9 mg/dL or ionized magnesium level 0.45 to 0.5 mmol/L, Starting on Wed06/04/25 at 1915, Use premix solution. Default to ionized magnesium level in cases where patient has both magnesium and ionized magnesium results. If administered, check ionized magnesium (or total magnesium if ionized magnesium unavailable) level 4 hours after infusion. magnesium sulfate IVPB 4000 mg/100 mL in iso-osmotic water (40 mg/mL premix) (Linked Group 1) 4,000 mg, intravenous, at 25 mL/hr, Administer over 240 Minutes, As needed, for magnesium level 1.6mg/mL or less, or ionized magnesium level 0.44 mmol/L or less, Starting on Wed06/04/25 at 1915, Use premix solution. Default to ionized magnesium level in cases where patient has both magnesium and ionized magnesium results. If administered, check ionized magnesium (or total magnesium if ionized magnesium unavailable) level 4 hours after infusion. potassium chloride (K-TAB,KLOR-CON) CR tablet 20-60 mEq(Linked Group 2) 20-60 mEq, oral, As needed, Potassium Supplementation, Starting on 06/09/25 at 0959, Progress to oral potassium replacement when patient tolerating oral intake. If dose administered, recheck potassium level 4 hours after last dose. For potassium level 3.4 to 3.7 mmol/L =20 mEq. For potassium level 3.1 to 3.3 mmol/L =40 mEq. For potassium level 3 mmol/L or less =60 mEq. Do not crush or chew. potassium chloride (KAYCIEL) 20 mEq/15 mL solution 20-60 mEq(Linked Group 2) 20-60 mEq, oral, As needed, Potassium Supplementation, Starting on 06/09/25 at 0959, Progress to oral potassium replacement when patient tolerating oral intake. If dose administered, recheck potassium level 4 hours after last dose. For potassium level 3.4 to 3.7 mmol/L =20 mEq. For potassium level 3.1 to 3.3 mmol/L =40 mEq. For potassium level 3 mmol/L or less =60 mEq. Must dilute before use - Mix in 3-8 ounces of water or juice before administration When administering in feeding tube, flush before and after per policy and monitor potassium levels potassium chloride IVPB 10 mEq/100 mL in water (0.1 mEq/mL premix)(Linked Group 2) 10 mEq, intravenous, at 100 mL/hr, Administer over 60 Minutes, As needed, POTASSIUM REPLACEMENT, Starting on 06/09/25 at 0959, IV if unable to use oral/enteral with the current dosing strategies For potassium level 3.4 to 3.7 mmol/L =20 mEq. For potassium level 3.1 to 3.3 mmol/L =40 mEq. For potassium level 3 mmol/L or less =60 mEq. Use central line when applicable. Recheck potassium level 1 hour after total IVPB infusion complete With each potassium result continue the replacement orders as needed VESICANT (YELLOW) Infuse each 10 mEq over a minimum of 1 hour. sod phos di, mono-K phos mono (K-PHOS NEUTRAL) 250 mg tablet 2 tablet(Linked Group 3) 2 tablet, oral, As needed, for phosphorous level 2.3 mg/dL or less. Do not administer if potassium is more than 4.5, Starting on 06/09/25 at 0959, If dose administered, recheck phosphorus level 4hours after last dose. Look-alike/sound-alike medication - verify indication for use. Give with a full glass of water. sodium phosphate 20 mmol in sodium chloride 0.9 % 100 mL IVPB(Linked Group 3) 20 mmol, intravenous, at 26.7 mL/hr, Administer over 4 Hours, As needed, for phosphorous level 2.3 mg/dL or less, Starting on 06/09/25 at 0959, Administer over 4 hours via dedicated line(central line). If administered, recheck phosphorus level 4 hours after infusion complete. Infuse using central line access. sodium phosphate 20 mmol in sodium chloride 0.9 % 250 mL IVPB(Linked Group 3) 20 mmol, intravenous, at 42.8 mL/hr, Administer over 6 Hours, As needed, for phosphorous level 2.3 mg/dL or less, Starting on 06/09/25 at 0959, Administer over 6 hours via dedicated line (peripheral line). If administered, recheck phosphorus level 4 hours after infusion complete. Order Group 1: magnesium sulfate IVPB 2000 mg/50 mL in iso-osmotic water (40 mg/mL premix)Jump to med 2,000 mg, intravenous, at 25 mL/hr, Administer over 120 Minutes, As needed, for magnesium level 1.7to 1.9 mg/dL or ionized magnesium level 0.45 to 0.5 mmol/L, Starting on 06/04/25 at 1915, Use premix solution. Default to ionized magnesium level in cases where patient has both magnesium and ionized magnesium results. If administered, check ionized magnesium (or total magnesium if ionized magnesium unavailable) level 4 hours after infusion. Or magnesium sulfate IVPB 4000 mg/100 mL in iso-osmotic water (40 mg/mL premix)Jump to med 4,000 mg, intravenous, at 25 mL/hr, Administer over 240 Minutes, As needed, for magnesium level 1.6mg/mL or less, or ionized magnesium level 0.44 mmol/L or less, Starting on 06/04/25 at 1915, Use premix solution. Default to ionized magnesium level in cases where patient has both magnesium and ionized magnesium results. If administered, check ionized magnesium (or total magnesium if ionized magnesium unavailable) level 4 hours after infusion. Group 2: potassium chloride (K-TAB,KLOR-CON) CR tablet 20-60 mEqJump to med 20-60 mEq, oral, As needed, Potassium Supplementation, Starting on 06/09/25 at 0959, Progress to oral potassium replacement when patient tolerating oral intake. If dose administered, recheck potassium level 4 hours after last dose. For potassium level 3.4 to 3.7 mmol/L =20 mEq. For potassium level 3.1 to 3.3 mmol/L =40 mEq. For potassium level 3 mmol/L or less =60 mEq. Do not crush or chew. Or potassium chloride (KAYCIEL) 20 mEq/15 mL solution 20-60 mEqJump to med 20-60 mEq, oral, As needed, Potassium Supplementation, Starting on 06/09/25 at 0959, Progress to oral potassium replacement when patient tolerating oral intake. If dose administered, recheck potassium level 4 hours after last dose. For potassium level 3.4 to 3.7 mmol/L =20 mEq. For potassium level 3.1 to 3.3 mmol/L =40 mEq. For potassium level 3 mmol/L or less =60 mEq. Must dilute before use - Mix in 3-8 ounces of water or juice before administration When administering in feeding tube, flush before and after per policy and monitor potassium levels Or potassium chloride IVPB 10 mEq/100 mL in water (0.1 mEq/mL premix)Jump to med 10 mEq, intravenous, at 100 mL/hr, Administer over 60 Minutes, As needed, POTASSIUM REPLACEMENT, Starting on 06/09/25 at 0959, IV if unable to use oral/enteral with the current dosing strategies For potassium level 3.4 to 3.7 mmol/L =20 mEq. For potassium level 3.1 to 3.3 mmol/L =40 mEq. For potassium level 3 mmol/L or less =60 mEq. Use central line when applicable. Recheck potassium level 1 hour after total IVPB infusion complete With each potassium result continue the replacement orders as needed VESICANT (YELLOW) Infuse each 10 mEq over a minimum of 1 hour. Group 3: sodium phosphate 20 mmol in sodium chloride 0.9 % 250 mL IVPBJump to med 20 mmol, intravenous, at 42.8 mL/hr, Administer over 6 Hours, As needed, for phosphorous level 2.3 mg/dL or less, Starting on 06/09/25 at 0959, Administer over 6 hours via dedicated line (peripheral line). If administered, recheck phosphorus level 4 hours after infusion complete. Or sodium phosphate 20 mmol in sodium chloride 0.9 % 100 mL IVPBJump to med 20 mmol, intravenous, at 26.7 mL/hr, Administer over 4 Hours, As needed, for phosphorous level 2.3 mg/dL or less, Starting on 06/09/25 at 0959, Administer over 4 hours via dedicated line(central line). If administered, recheck phosphorus level 4 hours after infusion complete. Infuse using central line access. Or sod phos di, mono-K phos mono (K-PHOS NEUTRAL) 250 mg tablet 2 tabletJump to med 2 tablet, oral, As needed, for phosphorous level 2.3 mg/dL or less. Do not administer if potassium is more than 4.5, Starting on 06/09/25 at 0959, If dose administered, recheck phosphorus level 4hours after last dose. Look-alike/sound-alike medication - verify indication for use. Give with a full glass of water. documented in this encounter Additional Health Concerns InfectionOnset DateLast IndicatedResolved TimeRespiratory Rule-Out06/07/2025 12:25 PM EDTdocumented as of this encounter Care Teams Team MemberRelationshipSpecialtyStart DateEnd Date Clarisa Hansen APRN-OBSTETRICS GYN [id number] [place] [address] PCP - GeneralFamily Medicine05/15/25documented as of this encounter
[2025-06-25 23:55] VITALS: BP 111/72; PULSE 81; TEMP 37.1; O2SAT 97
--- NOTE | 2025-06-26 00:01 | PC.NURSE ---
PT has partial Mayo cath with balloon in bladder
--- NOTE | 2025-06-26 00:18 | ED.MALEGU1 ---
HPI - Male Genitourinary General Chief complaint: Urogenital-Male Time Seen by Provider: 06/26/25 00:11 Source: patient Mode of arrival: ambulance History of Present Illness HPI Narrative: longterm patient . Recent hemorrhagic CVA . Has expressive and receptive aphasia. Reportedly has removed his hopson 3 times. 3rd time tonight. Hopson catheter snapped and balloon and remainder of the catheter reportedly in is bladder. Patient is diabetic . Not able to provide any history due to his aphasia. He is not aware of where he is, what year it is or who the president is. He answers questions inappropriately, He reportedly requres total assist at the longterm. He will immediately respond to questions but the responses are inappropriate Related Data Home Medications ?Medication ?Instructions ?Recorded ?Confirmed amlodipine 10 mg tablet 10 mg PO DAILY 06/26/25 06/26/25 aspirin 81 mg tablet,delayed 81 mg PO DAILY 06/26/25 06/26/25 release (Adult Low Dose Aspirin) atorvastatin 20 mg tablet 20 mg PO QAM 06/26/25 06/26/25 carvedilol 12.5 mg tablet 12.5 mg PO BID 06/26/25 06/26/25 hydralazine 100 mg tablet 50 mg PO TID 06/26/25 06/26/25 insulin glargine 100 unit/mL (3 12 unit subcut DAILY 06/26/25 06/26/25 mL) subcutaneous pen (Lantus Solostar U-100 Insulin) insulin lispro 100 unit/mL 1 sliding scale dose subcut 06/26/25 06/26/25 subcutaneous pen USEASDIRECTD insulin lispro 100 unit/mL 6 unit subcut TIDWMEAL 06/26/25 06/26/25 subcutaneous pen magnesium oxide 400 mg PO DAILY 06/26/25 06/26/25 trazodone 50 mg tablet 12.5 mg PO DAILY 06/26/25 06/26/25 trazodone 50 mg tablet 50 mg PO QPM 06/26/25 06/26/25 Allergies Allergy/AdvReac Type Severity Reaction Status Date / Time No Known Drug Allergies Allergy Verified 06/23/25 23:16 Review of Systems ROS Status of ROS unobtainable due to mental status Exam Constitutional Vital Signs, click to edit/add: Last Vital Signs Temp 98.7 F 06/25/25 23:55 Pulse 82 06/26/25 04:38 Resp 20 06/26/25 04:38 BP 145/77 H 06/26/25 04:38 Pulse Ox 97 06/26/25 04:38 O2 Del Method Room Air 06/26/25 04:38 Common normals: no apparent distress, healthy appearing, alert and well nourished HENAR Common normals: normocephalic and head/scalp atraumatic Eye Common normals: EOMs intact bilaterally and conjunctivae normal Respiratory Common normals: normal respiratory effort, no retractions, no use of accessory muscles and clear to auscultation bilaterally Cardio Common normals: regular rate, regular rhythm, S1 normal heart sound and S2 normal heart sound GI Common normals: Normal to inspection, nondistended, normoactive bowel sounds present and soft to palpation Other: minor bruising decoloration of distal phallus. Not circumcised. Meatus appears normal . no bleeding. No visible catheter Extremity Common normals: normal to inspection and full ROM Neuro Other: dysarthric speech. Patient cooperative but disoriented Course Vital Signs Vital signs: Vital Signs Temperature 98.7 F 06/25/25 23:55 Pulse Rate 81 06/25/25 23:55 Respiratory Rate 16 06/25/25 23:55 Blood Pressure 111/72 06/25/25 23:55 Pulse Oximetry 97 06/25/25 23:55 Oxygen Delivery Method Room Air 06/25/25 23:55 Temperature 98.7 F 06/25/25 23:55 Pulse Rate 82 06/26/25 04:38 Respiratory Rate 20 06/26/25 04:38 Blood Pressure 145/77 H 06/26/25 04:38 Pulse Oximetry 97 06/26/25 04:38 Oxygen Delivery Method Room Air 06/26/25 04:38 MDM - Male Genitourinary MDM Narrative Medical decision making narrative: recent admission to [facility] for hemorrhagic stroke. Has expressive and receptive aphasia. Indwelling hopson that he has pulled out 3 times. Tonight was the 3rd time and the hopson snapped and there is still the balloon and remaining catheter in the urethra. Patient is not able to assist in the history due to the aphasia. CT demonstrates the Hopson catheter balloon in the bladder with a portion of the tubing in the bladder and proximal urethra.Patient is leaking urine around the catheter. Discussed with sales correspondence clerk Urologist Dr Moreau who states there is no anesthesiology available at this hospital and recommends transfer Discussed with Urology Dr Schreiber at [facility] who recommends ED-ED transfer. Labs withh evidence of acute on chronic renal failure. creat 06/17 1.75. Creat today 2.1. IV hydration ordered Lab Data Labs: Lab Results 06/26/25 Range/Units 00:37 WBC 8.2 (4.0-11.0) 10^3/uL RBC 3.81 L (4.70-6.10) 10^6/uL Hgb 12.0 L (14.0-18.0) g/dL Hct 35.9 L (42.0-54.0) % MCV 94.2 H (80.0-94.0) fL MCH 31.5 (25.9-34.0) pg MCHC 33.4 (29.9-35.2) g/dL RDW 12.0 (11.0-15.0) % Plt Count 265 (150-450) 10^3/uL MPV 9.8 (9.5-13.5) fL Neut % (Auto) 60.6 (43.0-75.0) % Lymph % (Auto) 21.7 (20.5-60.0) % Josephine % (Auto) 11.0 (1.7-12.0) % Eos % (Auto) 5.6 (0.9-7.0) % Baso % (Auto) 0.6 (0.2-2.0) % Neut # (Auto) 4.9 (1.4-6.5) 10^3/uL Lymph # (Auto) 1.8 (1.2-3.8) 10^3/uL Josephine # (Auto) 0.9 H (0.3-0.8) 10^3/uL Eos # (Auto) 0.5 (0.0-0.7) 10^3/uL Baso # (Auto) 0.1 (0.0-0.1) 10^3/uL Abs Immat Gran (auto) 0.04 H (0.00-0.03) 10^3/uL Imm/Tot Granulo (auto) 0.5 (0.0-0.5) % Sodium 145 (136-145) mmol/L Potassium 4.7 (3.5-5.1) mmol/L Chloride 115 H (98-107) mmol/L Carbon Dioxide 21.8 (21.0-32.0) mmol/L Anion Gap 12.9 BUN 52.0 H (7.0-18.0) mg/dL Creatinine 2.10 H (0.70-1.30) mg/dL Est GFR ( Amer) 38 L (>=60 mL/min/1.73m^2) Est GFR (Non-Af Amer) 32 L (>=60 mL/min/1.73m^2) BUN/Creatinine Ratio 24.8 Glucose 166 H (74-106) mg/dL Calcium 9.3 (8.5-10.1) mg/dL Total Bilirubin 0.4 (0.2-1.0) mg/dL AST 20 (15-37) U/L ALT 42 (16-63) U/L Alkaline Phosphatase 91 (46-116) U/L Total Protein 7.3 (6.4-8.2) g/dL Albumin 3.2 L (3.4-5.0) g/dL Globulin 4.1 g/dL Albumin/Globulin Ratio 0.8 Discharge Plan Discharge Chief Complaint: Urogenital-Male Clinical Impression: Foreign body in bladder and urethra, Constipation, Acute kidney injury Patient Disposition: Xfer Acute [facility] Discharge Location: [facility] Condition: Good Mode of Transportation: EMS
[2025-06-26 00:42] LABS: Hematocrit 35.9 % (42.0-54.0); Hemoglobin 12.0 g/dL (14.0-18.0); Immature Granulocytes Abs Auto 0.04 10^3/uL (0.00-0.03); Immature Granulocytes Pct Auto 0.5 % (0.0-0.5); Lymphocytes Absolute Auto 1.8 10^3/uL (1.2-3.8); Mean Corpuscular HGB Conc 33.4 g/dL (29.9-35.2); Mean Corpuscular Hemoglobin 31.5 pg (25.9-34.0); Mean Corpuscular Volume 94.2 fL (80.0-94.0); Platelet Count 265 10^3/uL (150-450); Red Blood Count 3.81 10^6/uL (4.70-6.10); White Blood Count 8.2 10^3/uL (4.0-11.0)
[2025-06-26 00:58] LABS: Alanine Aminotransferase 42 U/L (16-63); Albumin Globulin Ratio 0.8; Albumin Level 3.2 g/dL (3.4-5.0); Alkaline Phosphatase 91 U/L (46-116); Anion Gap 12.9; Aspartate Amino Transferase 20 U/L (15-37); Blood Urea Nitrogen 52.0 mg/dL (7.0-18.0); Calcium 9.3 mg/dL (8.5-10.1); Carbon Dioxide 21.8 mmol/L (21.0-32.0); Chloride 115 mmol/L (98-107); Estimated GFR (African America 38 (>=60 mL/min/1.73m^2); Estimated GFR (Non-African Ame 32 (>=60 mL/min/1.73m^2); Globulin 4.1 g/dL; Glucose 166 mg/dL (74-106); Potassium 4.7 mmol/L (3.5-5.1); Sodium 145 mmol/L (136-145); Total Protein 7.3 g/dL (6.4-8.2)
--- OUTSIDE RECORDS SUMMARY | 2025-06-26 01:08 | XMS_ITS | Encounter Summary ---
Author Organization [facility] tem Address [id number] [address] [place] [address] Care Team Providers Care Turbine Mechanic Name Role Phone Clarisa Nunez CORONER TECHNICIAN-REMOTE BROADCAST TECHNICIAN Primary Care Provider Encounter Details DateTypeDepartmentCare Team (Latest Contact Info)Yhghdiwpfqn56/03/2025Telephone [facility] Neurology, A Department of [facility] [address] [place] [phone] Janet Chou Social History Tobacco UseTypesPacks/DayYears UsedDateSmoking Tobacco: Every ZevAywavdjnvz307.8 Started: 1970Smokeless Tobacco: NeverAlcohol UseStandard Drinks/WeekCommentsYes0 (1 standard drink = 0.6 oz pure alcohol)[facility] UtilitiesAnswerDate RecordedIn the past 12 months has the [employer], gas, oil, or water [place] threatened to shut off services in your home?No06/05/2025UDIT-CAnswerDate RecordedQ1: How often do you have a drink containing alcohol?Patient unable to avqxip2806/05/2025Q2: How many drinks containing alcohol do you have on a typical day when you are drinking?Patient unable to kqvvdo1306/05/2025Q3: How often do you have six or more drinks on one occasion?Patient unable to vbdlbb0706/05/2025PRAPARE - TransportationAnswerDate RecordedIn the past 12 months, [...] a part of a household?No06/05/2025hildcareAnswerDate RecordedChildcareUnknown 02/01/2019EmploymentAnswerDate WjzspuqnRadamhkzlrDnjswiv75/12/2019Hunger ScreeningAnswerDate RecordedWithin the past 12 months we worried whether our food would run out before we got money to buy more.Never True06/11/2025Within the past 12 months the food we bought just didn't last and we didn't have money to get more.Never True06/11/2025Sex and Gender InformationValueDate RecordedSex Assigned at BirthNot on fileLegal JwnWnxp3503/28/2015 11:52 AM EDTGender Identity Not on fileSexual OrientationNot on filedocumented as of this encounter Miscellaneous Notes * Telephone Encounter - Janet Chou - 06/25/2025 8:02 AM EST ----- Message from Mable Butt MD sent at 06/22/2025 9:05 AM EDT ----- Hi, Could you please arrange a follow up appointment for this patient? He needs to be followed up within 4-[address] Siegel for follow up for possible SOFIA. Thanks, - Mable Butt MD 06/22/25 * Telephone Encounter - Carmen Amaya - 06/25/2025 8:02 AM EST 1st attempt: French Folder contacted patient and left a voicemail offering to schedule in with our clinic for a hospital follow up appointment as we have received a provider message requesting to see patient in office. French Folder provided callback number for scheduling or to address any questions or concerns they may have. documented in this encounter Plan of Treatment DateTypeDepartmentCare Team (Latest Contact Info)Uelgtocrdzg53/06/2025 9:00 AM ESTOffice Visit [facility] [place] [address] Marion Martines, CORONER TECHNICIAN-REMOTE BROADCAST TECHNICIAN [address] [address] 07/18/2025 3:30 PM ESTOffice Visit [facility], A Department of [address] [place] [address] Yani Moses MD [address] [place] [address] [address] [place], [place] [id number] documented as of this encounter Goals GoalPatient Goal TypeAssociated ProblemsRecent ProgressPatient-Stated?Author <enter goal here> Jodi Rivera, YUMIKO Note: Evaluation of progress towards goal: SNF documented as of this encounter Visit Diagnoses Not on filedocumented in this encounter Care Teams Team MemberRelationshipSpecialtyStart DateEnd Date Clarisa Nunez, CORONER TECHNICIAN-REMOTE BROADCAST TECHNICIAN [address] [place] [address] PCP - GeneralFamily Medicine05/15/25documented as of this encounter
--- OUTSIDE RECORDS SUMMARY | 2025-06-26 01:08 | XMS_ITS | Encounter Summary ---
Author Organization [facility] tem Address [id number] [address] [place] [address] Care Team Providers Care Computer Lab Aide Name Role Phone Clarisa Nunez NETWORK TECHNOLOGY INSTRUCTOR-LEATHER COLORER Primary Care Provider Encounter Details DateTypeDepartmentCare Team (Latest Contact Info)Enauhmnvcls12/29/2025Telephone [facility] [address] [place], [place] [phone] Liborio Mann Jr., MD [address] [place] [phone] Social History Tobacco UseTypesPacks/DayYears UsedDateSmoking Tobacco: Every BhjBkityljexo978.8 Started: 1970Smokeless Tobacco: NeverAlcohol UseStandard Drinks/WeekCommentsYes0 (1 standard drink = 0.6 oz pure alcohol)[facility] UtilitiesAnswerDate RecordedIn the past 12 months has the [employer], gas, oil, or water [place] threatened to shut off services in your home?No06/05/2025UDIT-CAnswerDate RecordedQ1: How often do you have a drink containing alcohol?Patient unable to ankqfr0306/05/2025Q2: How many drinks containing alcohol do you have on a typical day when you are drinking?Patient unable to rsljfc5006/05/2025Q3: How often do you have six or more drinks on one occasion?Patient unable to cfvhov2506/05/2025PRAPARE - TransportationAnswerDate RecordedIn the past 12 months, [...] a part of a household?No06/05/2025hildcareAnswerDate RecordedChildcareUnknown 02/01/2019EmploymentAnswerDate CyterpjzDfsytiealhKjveksl53/12/2019Hunger ScreeningAnswerDate RecordedWithin the past 12 months we worried whether our food would run out before we got money to buy more.Never True06/11/2025Within the past 12 months the food we bought just didn't last and we didn't have money to get more.Never True06/11/2025Sex and Gender InformationValueDate RecordedSex Assigned at BirthNot on fileLegal GmnYnon4103/28/2015 11:52 AM EDTGender Identity Not on fileSexual [...] Plan of Treatment DateTypeDepartmentCare Team (Latest Contact Info)Thunjvftqyl49/06/2025 9:00 AM ESTOffice Visit [facility] [address] [place] [address] Marion Martines, NETWORK TECHNOLOGY INSTRUCTOR-LEATHER COLORER [address] [place] [address] 07/18/2025 3:30 PM ESTOffice Visit [facility] [address] [place] [phone] Yani Moses MD [address] [place] [address] [address] [place] [address] documented as of this encounter Goals GoalPatient Goal TypeAssociated ProblemsRecent ProgressPatient-Stated?Author <enter goal here> Jodi Rivera, YUMIKO Note: Evaluation of progress towards goal: SNF documented as of this encounter Visit Diagnoses Not on filedocumented in this encounter Care Teams Team MemberRelationshipSpecialtyStart DateEnd Date Clarisa Nunez, MEGAN-LEATHER COLORER [address] [place] [address] PCP - GeneralFamily Medicine05/15/25documented as of this encounter
--- OUTSIDE RECORDS SUMMARY | 2025-06-26 01:08 | XMS_ITS | Clinical Summary ---
Author Organization Entrisphere tem Address [id number] [address] [place] [address] Care Team Providers Care Convex Grinder Operator Name Role Phone Clarisa Nunez MEGAN-SENIOR SPECIALIST Primary Care Provider Allergies No known active allergies Medications MedicationSigDispense QuantityRefillsLast FilledStart DateEnd DateStatus aspirin 81 mg Take 1 tablet (81 mg total) by mouth in the morning.Active atorvastatin (LIPITOR) 20 mg tablet Take 1 tablet (20 mg total) by mouth every morning. TAKE 1 TABLET (20 MG) BY MOUTH IN THE GTUGDUU08/23/2025Active ACCU-CHEK GUIDE TEST STRIPS strip USE DAILY5Active [...] mellitus with other specified complication, unspecified whether nursing home insulin use ([facility])Inject 12 Units under the skin in the [...] ProblemNoted DateDiagnosed DateICH (intracerebral hemorrhage)06/04/2025 Encounters DateTypeDepartmentCare HgjpLzwrpnajacp13/03/2025Telephone [facility], A Department of [facility] [address] [address] [place] [address] Janet Chou 06/20/2025Telephone [facility] [address] [place] [address] Liborio Mann Jr., MD 06/04/2025 5:25 PM EDT - 06/22/2025 5:58 PM EDTHospital Encounter [facility] - GEN [address] Acute [address] [place] [address] Carter Smith, Deon Day MD Traumatic intracerebral hemorrhage with unknown loss of consciousness status, unspecified laterality, subsequent encounter (Primary Dx); Type 2 diabetes mellitus with other specified complication, unspecified whether long term care pharmacist insulin use ([facility]); Nontraumatic intracerebral hemorrhage, unspecified cerebral location, unspecified laterality ([facility]) Discharge Disposition: Residential Facility-Medicare Cert06/04/2025 1:06 PM EDT - 06/04/2025 4:44 PM EDTEmergency [facility] [address] [place] [phone] James Vaughn MD Acute cerebral hemorrhage ([facility]) (Primary Dx) Discharge Disposition: Institution Not Defined Mlcwqncsy42/13/2025Travelfrom Last 3 Months Immunizations ImmunizationAdministration DatesNext QebXtvf25/28/2016 Family History Medical HistoryRelationNameCommentsHeart attackFatherPancreatic cancerFather LeukemiaMotherLymphomaMotherRelationNameStatusCommentsFatherMother Social History Tobacco UseTypesPacks/DayYears UsedDateSmoking Tobacco: Every ZqcWnnjaxpxns518.8 Started: 1972Smokeless Tobacco: Never Tobacco Cessation:Ready to Q uit: No; Counseling Given: Yes Alcohol UseStandard Drinks/WeekCommentsYes0 (1 standard drink = 0.6 oz pure alcohol)[facility] UtilitiesAnswerDate RecordedIn the past 12 months has the electric, gas, oil, or water company threatened to shut off services in your home?No 06/05/2025UDIT-CAnswerDate RecordedQ1: How often do you have a drink containing alcohol?Patient unable to esthbj3006/05/2025Q2: How many drinks containing alcohol do you have on a typical day when you are drinking?Patient unable to answer 06/05/2025Q3: How often do you have six or more drinks on one occasion?Patient unable to nqfccf3806/05/2025PRAPARE - TransportationAnswerDate RecordedIn the past 12 months, [...] as a part of a household?No06/05/2025hildcareAnswer Date HcjqvucvPdjlaffpbUmuhrey15/12/2019EmploymentAnswerDate RecordedEmployment Zzxyxue2102/01/2019Hunger ScreeningAnswerDate RecordedWithin the past 12 months we worried whether our food would run out before we got money to buy more.Never True06/11/2025Within the past 12 months the food we bought just didn't last and we didn't have money to get more.Never True06/11/2025Sex and Gender Information ValueDate RecordedSex Assigned at BirthNot on fileLegal UlzSunx8103/28/2015 11:52 AM EDTGender IdentityNot on fileSexual OrientationNot on file Last Filed Vital Signs Vital SignReadingTime TakenCommentsBlood Plvmwinj596/6506/22/2025 11:12 AM EDT Iczsk937206/22/2025 11:12 AM NILTdzonmlycrk49.8 ??C (98.3 ??F)06/22/2025 11:12 AM EDTRespiratory Qsvi796606/22/2025 11:12 AM EDTOxygen Hhdqclcdad79%06/22/2025 11:12 AM EDTInhaled Oxygen Concentration--Xkcthw27.6 kg (215 lb 2.7 oz)06/22/2025 5:00 AM IYVHjafss725.9 cm (6')06/12/2025 4:00 AM EDTBody Mass Index29.181 4:00 AM EDT Plan of Treatment DateTypeDepartmentCare Team (Latest Contact Info)Tmvulvlprip32/06/2025 9:00 AM ESTOffice Visit [facility] [place] [address] [place] [address] Marion Martines, MATCHER-SENIOR SPECIALIST [address] [place] [address] [address] 07/18/2025 3:30 PM ESTOffice Visit [facility], A Department of [address] [place] [phone] Yani Moses MD [address] [place] [address] [address] [place], [place] [id number] Health MaintenanceDue DateLast DoneCommentsDiabetic Ophthalmology Exam1957 Depression Xiwbccuzl56/16/1969Adult BMI Follow Up Plan1975Diabetic Foot Exam1975Zoster (Shingles) Vaccine (1 of 2)2007RSV ( or age 60+ yrs) (1 - Risk 60-74 years 1-dose series)2017Abdominal Aortic Aneurysm (AAA) Reaubp6704/07/2022Fall Risk Nsinjjhbn75/16/2022OVID-19 Vaccine ( season), 12/30/2020, 12/02/2020Influenza Wcxwvhj1004/23/2025 Statin Use: Kohbplgi17/Tobacco Pppbrovia20 Adult BMI Emkggnarf40DTaP,Tdap and Td Vaccines (2 - Td or Tdap)Tobacco Ozagnpubyb08 Goals GoalPatient Goal TypeAssociated ProblemsRecent ProgressPatient-Stated?Author <enter goal here> Jodi Rivera LSW Note: Evaluation of progress towards goal: SNF Medical Devices Not on file Procedures Procedure NamePriorityDate/TimeAssociated DiagnosisCommentsBEDSIDE GLUCOSE Ajdlkbg2006/22/2025 4:05 PM EDT BEDSIDE GIQJYTSSauavvu93/31/2025 11:32 AM EDT BEDSIDE BOLDZUTVjzbajl40/31/2025 8:29 AM EDT IONIZED JUNZPDXSbaegfc75/31/2025 8:00 AM EDT SSDPXHGQLIJxrnnzb89/31/2025 8:00 AM EDT SMLGINKNMFglelbz59/31/2025 8:00 AM EDT CBC WITH AUTO IDOADRGXIDYPBxqxwkt42/31/2025 8:00 AM EDT COMPREHENSIVE METABOLIC JCCVORgsqtde88/31/2025 8:00 AM EDT BEDSIDE URZNNTMTlydqhl16/30/2025 9:22 PM EDT BEDSIDE ECQXFNVIelpgke36/30/2025 4:[address] BRAIN WO FHSVXTWY29/30/2025 2:07 PM EDT VASC VENOUS DUPLEX LOWER GUUTOODQYTyruusv52/30/2025 1:26 PM EDT BEDSIDE INHCVINAjlbicc20/30/2025 11:54 AM EDT BEDSIDE DDKFQMLPiukagt67/30/2025 7:44 AM EDT IONIZED LRXOLWJLqnijvv04/30/2025 6:10 AM EDT XCZPFUHGDDLmisdtl46/30/2025 6:10 AM EDT KLPKOZAYGMzwtyah88/30/2025 6:10 AM EDT CBC WITH AUTO PJXPECPNHYAJWfgkysf85/30/2025 6:10 AM EDT COMPREHENSIVE METABOLIC VPMLRZrxyotk40/30/2025 6:10 AM EDT BEDSIDE EVQQAQORgrwbox24/29/2025 9:24 PM EDT BEDSIDE SRRMJZQSeqtaue24/29/2025 3:37 PM EDT BEDSIDE FMNDCWBCwcyjmw41/29/2025 11:52 AM EDT BEDSIDE BVQSSAPPojarrx19/29/2025 7:21 AM EDT IONIZED BAXOQGAAyfuxsz31/29/2025 6:11 AM EDT FPVCMOONHTCphrxbz95/29/2025 6:11 AM EDT PAWCNWWSARfvywwq40/29/2025 6:11 AM EDT CBC WITH AUTO XPBMTTEBGSYZEezxlto06/29/2025 6:11 AM EDT COMPREHENSIVE METABOLIC QUOKRFbhczkn53/29/2025 6:11 AM EDT BEDSIDE BHKOKWDZxeyqag04/28/2025 9:05 PM EDT BEDSIDE LZVEXZAAaqwcnu79/28/2025 12:09 PM EDT BEDSIDE YFKGHDQTiiuxxu74/28/2025 7:19 AM EDT IONIZED GEDWVQNKyechjr92/28/2025 6:01 AM EDT ZEKCVREERWDmzzbgf86/28/2025 6:01 AM EDT ZDEAFKUIZTkbpkfm83/28/2025 6:01 AM EDT CBC WITH AUTO QVJBVUMLDQZBXuanbxm35/28/2025 6:01 AM EDT COMPREHENSIVE METABOLIC XXLIDCzhjyeq57/28/2025 6:01 AM EDT BEDSIDE ERGNIAXNhptckm20/27/2025 9:48 PM EDT BEDSIDE ZGIDRMUUqtytyi95/27/2025 4:25 PM EDT BEDSIDE DIUCQDNTcxmwam37/27/2025 11:29 AM EDT BEDSIDE TRCLEWUHjgmymj07/27/2025 7:50 AM EDT IONIZED ZXHBTZHVimtpji35/27/2025 5:55 AM EDT JWWFUHIQDNNdpznsb13/27/2025 5:55 AM EDT UDXNRFUEJZwgazmk23/27/2025 5:55 AM EDT CBC WITH AUTO ZQOCAIIZRXBHMgulpdj54/27/2025 5:55 AM EDT COMPREHENSIVE METABOLIC VYMNFVrvhpjc58/27/2025 5:55 AM EDT BEDSIDE RZOFWMBHsrywum86/26/2025 9:11 PM EDT BEDSIDE SCNIQULHvtycdo82/26/2025 4:05 PM EDT XR CHEST 1 XZGebzemc43/26/2025 2:34 PM EDT AUNZUMUJDDYlqioft09/26/2025 2:14 PM EDT URINE ZJIUGXXQrkicws54/26/2025 1:48 PM EDT BLOOD DFAYIGZNKEE98/26/2025 1:20 PM EDT BLOOD DBDQRWIYKUM48/26/2025 1:20 PM EDT BEDSIDE DIHKIOTRatnetl87/26/2025 11:24 AM EDT BEDSIDE VSDFFFGRwtworr53/26/2025 7:44 AM EDT IONIZED NNIFLINUbvigbm66/26/2025 6:08 AM EDT JFXIPBUAZDEgixlni88/26/2025 6:08 AM EDT UMTYXASKNUyrriwi37/26/2025 6:08 AM EDT CBC WITH AUTO IRTTXMSRMCJUQdioavs80/26/2025 6:08 AM EDT COMPREHENSIVE METABOLIC HUHFKAcnwyej25/26/2025 6:08 AM EDT BEDSIDE UIAENQLDjykhia54/25/2025 9:06 PM EDT BEDSIDE FBHGHSFBprutvl92/25/2025 3:58 PM EDT BEDSIDE WAONSIOVumxhmg03/25/2025 12:36 PM EDT BEDSIDE AVQOXRVCetmnut98/25/2025 7:55 AM EDT IONIZED UMZXWEPEylleqo75/25/2025 5:48 AM EDT NTXAPQXTJSSrwcutd07/25/2025 5:48 AM EDT SZURIRBWFKjbbeot17/25/2025 5:48 AM EDT CBC WITH AUTO HDSSPXQJGPASPadfdbc43/25/2025 5:48 AM EDT COMPREHENSIVE METABOLIC VCQIQLsicpzk27/25/2025 5:48 AM EDT BEDSIDE LWDAIVINiimbdz78/24/2025 8:58 PM EDT PAHJMCCljgiuw16/24/2025 5:52 PM EDT FIYOCJDBXQPMT60/24/2025 5:52 PM EDT BEDSIDE FKVGCWWZxxemcg32/24/2025 4:04 PM EDT VASC VENOUS DUPLEX LOWER WSMXATRAPGrfeavt57/24/2025 3:37 PM EDT BEDSIDE WUXORHSSjxcqvn70/24/2025 12:48 PM EDT NM RENOGRAM WITH HQYHYVpsmxha93/24/2025 12:38 PM EDT BEDSIDE MQQJDZVCrtwngh49/24/2025 7:59 AM EDT IONIZED IFTYHSFHpbeemm23/24/2025 6:59 AM EDT RRUZACZKKNXldwnqv98/24/2025 6:59 AM EDT CKBZMXXEZFxipqfq88/24/2025 6:59 AM EDT CBC WITH AUTO ZSYHMIDSUWNHUyixrxb62/24/2025 6:59 AM EDT COMPREHENSIVE METABOLIC HZGQQRpkwmhi13/24/2025 6:59 AM EDT BEDSIDE NYYDTPWGvdbkqs03/23/2025 9:02 PM EDT BEDSIDE LQQJJNOIvohhvz71/23/2025 4:32 PM EDT FL SWALLOW MOTILITY NPZOLESHExwvccz65/23/2025 2:24 PM EDT BEDSIDE PDZOUPKFnlrwbb02/23/2025 11:45 AM EDT BEDSIDE TCEXDKWZxcuznm61/23/2025 9:02 AM EDT IONIZED XOMYVZCUqosjid61/23/2025 6:25 AM EDT ULITPIBYDVKyzvfbm08/23/2025 6:25 AM EDT GQOKWALSOIxbleaj35/23/2025 6:25 AM EDT CBC WITH AUTO CQAWYLIPJDGTRqrtnwe11/23/2025 6:25 AM EDT COMPREHENSIVE METABOLIC VTKWGZcgmqlm32/23/2025 6:25 AM EDT BEDSIDE MMFTHQDHvmcmgz49/22/2025 8:57 PM EDT BEDSIDE RBBHFZYUbwexnx19/22/2025 5:17 PM EDT BEDSIDE VISNRJRDvjcunx98/22/2025 12:51 PM EDT VASC RENAL ARTERY DUPLEX WLLAUPNENzgolix80/22/2025 12:20 PM EDT BEDSIDE GEEYVVFVxcigdu80/22/2025 8:14 AM EDT IONIZED NECZAPOSdhxkys01/22/2025 5:58 AM EDT EUWXLFTNUIFpxszvu68/22/2025 5:58 AM EDT QMWSTVWRGRqiyukq92/22/2025 5:58 AM EDT CBC WITH AUTO LALCCIUHFATENuyyrcj42/22/2025 5:58 AM EDT COMPREHENSIVE METABOLIC CQWVLAdcicxl36/22/2025 5:58 AM EDT BEDSIDE VXAVOLGWarrvuw68/21/2025 9:49 PM EDT BEDSIDE SANSUECBaysdhi02/21/2025 5:14 PM EDT BEDSIDE ZYETFOCDrydstx70/21/2025 10:57 AM EDT FL SWALLOW MOTILITY DKCZRWFNNpbsogh00/21/2025 10:10 AM EDT BEDSIDE KWNLVAHMolkvko10/21/2025 9:09 AM EDT BEDSIDE KGLMBPXKkqeloe53/21/2025 6:27 AM EDT XR ABD NG TUBE PLACEMENT 1 NMFEWpqktdd87/21/2025 4:43 AM EDT B-TYPE NATRIURETIC DETPLJNOwmydio91/21/2025 4:24 AM EDT IONIZED NTKVAULFfuyrpr94/21/2025 4:24 AM EDT UUCVOHGMVLEnesgav49/21/2025 4:24 AM EDT EWBBPWQQOAyuimsi98/21/2025 4:24 AM EDT CBC WITH AUTO HSYWSFZZZBWPMcwqwjp19/21/2025 4:24 AM EDT COMPREHENSIVE METABOLIC GVOIHGpmujjx12/21/2025 4:24 AM EDT BEDSIDE VORRMMLBbfjozz99/21/2025 4:18 AM EDT BEDSIDE IOHFUNMSrzwtjp67/20/2025 11:29 PM EDT BEDSIDE NGMRKFXTxkvfjl30/20/2025 7:38 PM EDT BEDSIDE RMZDRFLXklxocp46/20/2025 3:14 PM EDT IONIZED TIELDXTTADdziogl65/20/2025 1:10 PM EDT BEDSIDE IFENGMRWygsens40/20/2025 12:26 PM EDT CLINICAL PATHOLOGY AKRGUOIquyonk81/20/2025 11:31 AM EDT BEDSIDE HHTEGITHmmlhxl26/20/2025 8:[address] BRAIN WO TYAYOxzezed36/20/2025 6:40 AM EDT XR CHEST 1 ECLzelovx51/20/2025 3:47 AM EDT B-TYPE NATRIURETIC QOTIWRUOeobync53/20/2025 3:05 AM EDT IONIZED OIHWZUTJbrhrdt21/20/2025 3:05 AM EDT QTIYRYIGNTMokoxvd47/20/2025 3:05 AM EDT BTILQJMOYUenlfoh22/20/2025 3:05 AM EDT CBC WITH AUTO ZCSYJTMCQAXMTdplqsh83/20/2025 3:05 AM EDT COMPREHENSIVE METABOLIC DBFFIXibhiib44/20/2025 3:05 AM EDT TROP I, HIGH SENSITIVITY 1 UJXRDQHO76/19/2025 3:33 AM EDT TROPONIN I, HIGH SENSITIVITY 0 STYVAUSU77/19/2025 2:52 AM EDT TROPONIN I, HIGH SENSITIVITY 0 SVHHWWSE98/19/2025 2:52 AM EDT B-TYPE NATRIURETIC UOVXJLVPoieofw32/19/2025 2:52 AM EDT IONIZED JJPATNFYwpqqgm26/19/2025 2:52 AM EDT FEDMLJBQLAVmflckg41/19/2025 2:52 AM EDT YPJJUDZSASxfnehw29/19/2025 2:52 AM EDT CBC WITH AUTO QKKEXAPNUBAEIjyfwcq65/19/2025 2:52 AM EDT COMPREHENSIVE METABOLIC VCLTJFdkcgly83/19/2025 2:52 AM EDT ECG 12-OMBEJonelho33/19/2025 1:28 AM EDT XR CHEST 1 QOYohdomm17/18/2025 11:46 AM EDT XR ABD NG TUBE PLACEMENT 1 FDWJRbfsgbl68/18/2025 4:52 AM EDT CBC WITH AUTO CAWHDOQZKKXFTvjaxoi07/18/2025 3:16 AM EDT COMPREHENSIVE METABOLIC BVMPFYogqzlz08/18/2025 3:16 AM EDT VASC VENOUS DUPLEX LOWER IWZEUTLUJIhwzgqj64/17/2025 5:51 PM EDT ECHO COMPLETE W CJSRJVFJYycxoqx48/17/2025 2:02 PM EDT XR ABD NG TUBE PLACEMENT 1 XNMINTOD10/17/2025 12:44 PM EDT CK VWXNLUpjfgvs48/17/2025 2:49 AM EDT CBC WITH AUTO LEYEJFFYUPMHFhygxjp94/17/2025 2:49 AM EDT COMPREHENSIVE METABOLIC XIZUWIxmfhaq68/17/2025 2:49 AM EDT XR ABD NG TUBE PLACEMENT 1 JXNWTZDI15/17/2025 2:38 AM EDT LBUJHTCKNFAjnprwo36/16/2025 10:47 PM EDT EXTRA TUBES PST CPULmhzosk97/16/2025 8:02 PM EDT EXTRA SBURWYbtwquf05/16/2025 8:02 PM EDT DILUTE SAMIA'S VIPER VENOM KSINWPPSLQBTYrgztyd42/16/2025 8:00 PM EDTHEMOGLOBIN AND HEMATOCRIT, BLOODAdd-On06/07/2025 8:00 PM EDT IMMUNOELECTROPHORESIS FOR THERAPY OTWHJGSAASLnomuob38/16/2025 8:00 PM EDT CYTOPLASMIC NEUTROPHILIC AB (ANCA), SDhcudop79/16/2025 8:00 PM EDT GLOMERULAR BASEMENT MEMBRANE IGG VDKrsfpet79/16/2025 8:00 PM EDT HEMOGLOBIN G3EPbopwdg00/16/2025 8:00 PM EDT PROTEIN ELECTROPHORESIS, QPVGYLqvdret98/16/2025 8:00 PM EDT HEPATITIS PANEL, ORZGBUwqehvm00/16/2025 8:00 PM EDT COMPLEMENT PROFILE (C3 AND C4)Fbobfzt6006/07/2025 8:00 PM EDT ANTI CARDIOLIPIN AB IGG IGA NHKNpzbzip74/16/2025 8:00 PM EDT MIARPOiabssw18/16/2025 8:00 PM EDT US RETROPERITONEAL COMPLETE WITH MMBEWDYcrgkhr98/16/2025 7:22 PM EDT GRJAPUYSCXFhpddng52/16/2025 4:21 PM EDT PROTEIN CREAT YTEVPYepgvce42/16/2025 4:21 PM EDT MICROALBUMIN / CREATININE URINE NXSFKHemripg74/16/2025 4:21 PM EDT SODIUM, URINE, CORLZTTeteiab46/16/2025 4:21 PM EDT URINE CREATININE,NIBLHLExwnfqx33/16/2025 4:21 PM EDT XR ABD NG TUBE PLACEMENT 1 LBLCGQIP75/16/2025 2:28 PM EDT RHEUMATOID FACTORAdd-On06/07/2025 12:27 PM EDT LUIZA SCREEN W/ REFLEXAdd-On06/07/2025 12:27 PM EDT HIV 1&2 AB/AG SCREEN (P24 AG)Add-On06/07/2025 12:27 PM EDT DOUBLE STRANDED DNA ABAdd-On06/07/2025 12:27 PM EDT IRON AND TIBCAdd-On06/07/2025 12:27 PM EDT FERRITINAdd-On06/07/2025 12:27 PM EDT VITAMIN B76Hsy-Il58/16/2025 12:27 PM EDT FOLATEAdd-On06/07/2025 12:27 PM EDT BETA-2 GLYCOPROTEIN ANTIBODIESAdd-On06/07/2025 12:27 PM EDT LEVETIRACETAM, LIrjrudi58/16/2025 12:27 PM EDT SCMHZXOIEDquslnb50/16/2025 12:27 PM EDT RESP PATHOGENS PANEL/LQCE-CSO-7Zqrjkzx62/16/2025 11:11 AM EDT XR CHEST 1 WGFtejhsf94/16/2025 9:54 AM EDT B-TYPE NATRIURETIC PEPTIDEAdd-On06/07/2025 4:07 AM EDT CBC WITH AUTO PRORNJUYSFLSIanazpp18/16/2025 4:07 AM EDT COMPREHENSIVE METABOLIC ACTIHYcwgjfs62/16/2025 4:07 AM EDT MR BRAIN W WO PMYELRXM56/15/2025 11:53 PM EDT XR ABD NG TUBE PLACEMENT 1 AYGNWOHY81/15/2025 11:33 AM EDT EEG VIDEO XZNJYLBRVMFcakztq04/15/2025 10:38 AM EDT CBC WITH AUTO HTQMRMFGADJKEcbfqtj29/15/2025 6:52 AM EDT COMPREHENSIVE METABOLIC RVGJZGoicyqi21/15/2025 6:52 AM EDT EEG VIDEO LADKFEENMMKqxmqfz78/15/2025 6:00 AM EDT BEDSIDE QOXFWWNOjqnjlg99/14/2025 3:52 PM EDT BMCJOPROEQwlnfxu54/14/2025 2:45 PM EDT BEDSIDE POTHLRQVowgjeb53/14/2025 11:58 AM EDT BEDSIDE BLWAALSDurpeiq11/14/2025 8:[address] BRAIN WO JLJRINOK60/14/2025 7:42 AM EDT EEG VIDEO PDECERGOLLSnriwyx46/14/2025 6:00 AM EDT CXSFysdunx15/14/2025 4:24 AM EDT LIPID PXNWDKRJfsjljv00/14/2025 3:10 AM EDT CBC WITH AUTO QXXFATPFBCBAVbsdvdi10/14/2025 3:10 AM EDT COMPREHENSIVE METABOLIC VWAWYAtjhopu44/14/2025 3:[address] BRAIN WO SCZHPggobuq67/14/2025 1:57 AM EDT BEDSIDE WSVMAWPMuwdjvd44/13/2025 9:35 PM EDT TYPE AND FNRYNHMWQH23/13/2025 7:58 PM EDT CBC WITH AUTO TRAZXOPXPPDTWSNE02/13/2025 7:58 PM EDT COMPREHENSIVE METABOLIC EHRDBGZQC62/13/2025 7:58 PM EDT BEDSIDE FQWERJMOxcchtr17/13/2025 7:54 PM EDT REPEATED FVSTCMatnklv98/13/2025 6:00 PM EDT BETHEA TOP ON XYBLMAJ1106/04/2025 6:00 PM EDT LAVENDER YAANUPN2706/04/2025 6:00 PM EDT PST JYZRVVR5806/04/2025 6:00 PM EDT BLUE EEQRPTN7906/04/2025 6:00 PM EDT HEMOGLOBIN V0YHan-Os57/13/2025 6:00 PM EDT RAINBOW JNUPFGTR56/13/2025 6:[address] ABDOMEN AND PELVIS W FCJSAMHW92/13/2025 3:[address] CHEST W BFAEPCYI66/13/2025 3:[address] CERVICAL OSIZHXWIUSVWUCWMEB03/13/2025 2:59 PM EDT REPEATED ASICEXlonjgx57/13/2025 2:31 PM EDT FIBRINOGENAdd-On06/04/2025 2:[address] CTA UIJJPSWXTKP27/13/2025 2:[address] CTA MEEDUYCL26/13/2025 2:19 PM EDT BLOOD GAS, ALIFABHPUL47/13/2025 2:[address] BRAIN WO RCRIBHLQ86/13/2025 2:08 PM EDT BB ARC LGALMGlepjti76/13/2025 1:45 PM EDT TYPE AND FSSSDMOUQG51/13/2025 1:45 PM EDT SALICYLATE VHMGMMITJ19/13/2025 1:45 PM EDT ACETAMINOPHEN USIHWMUKP42/13/2025 1:45 PM EDT COMPREHENSIVE METABOLIC YOADSYCTX39/13/2025 1:45 PM EDT YKUBETFFRLC33/13/2025 1:45 PM EDT ZTMGLLSOBKFGA26/13/2025 1:45 PM EDT LACTATE W/ GWRTPCKJYR52/13/2025 1:45 PM EDT NBURZHBSWDI64/13/2025 1:45 PM EDT CBC WITH AUTO QXVEUYOOOTEAZZHK16/13/2025 1:45 PM EDT EXTRA TUBES BLUE VPHKxgugmw64/13/2025 1:43 PM EDT PROTIME & INRAdd-On06/04/2025 1:43 PM EDT APTTAdd-On06/04/2025 1:43 PM EDT EXTRA VKQIFAkiytno75/13/2025 1:43 PM EDT ECG 12-FKXYWMZQ72/13/2025 1:32 PM EDT PM ED CRITICAL VLGUFxbvvoz97/13/2025 1:20 PM EDT from Last 3 Months Results * (ABNORMAL) Bedside Glucose *Place/Obtain serum glucose if >500 per glucometer. (06/22/2025 4:05 PM EDT) Only the most recent of54 resultswithin the time period is included. ComponentValueRef RangeTest MethodAnalysis TimePerformed AtPathologist Signature Bedside Glucose (POC)143(H)65 - 99 mg/dL06/22/2025 4:10 PM [facility] LAB[facility]ATORYSpecimen (Source)Anatomical Location / LateralityCollection Method / VolumeCollection TimeReceived Timearterial/erxujmjim64/31/2025 4:05 PM EDT 06/22/2025 4:10 PM EDT Narrative Authorizing ProviderResult TypeResult StatusEhad Monika MDPOINT OF CARE TEST ORDERABLESFinal ResultPerforming OrganizationAddressCity/State/ZIP CodePhone Number [facility] [address] [place] [address], * CBC auto differential (06/22/2025 8:00 AM EDT) Only the most recent of20 resultswithin the time period is included. ComponentValueRef RangeTest MethodAnalysis TimePerformed AtPathologist Signature WBC5.64 - 11 x10E9/L1 9:23 AM [facility] LABORATORYRBC Count4.324.1 - 5.7 X10E12/L1 9:23 AM [facility] SJBUUNSKIUXgecmpruvz87.613 - 17 g/dL06/22/2025 9:23 AM [facility] BMRKRDSQQMRohvrrenlc37.139 - 50 %06/22/2025 9:23 AM [facility] XQEUVFGMUVFVD3829 - 100 fL06/22/2025 9:23 AM [facility] QQRGYXBLLLYLK11.527 - 34 pg06/22/2025 9:23 AM [facility] IKZWFJEGBSAWJA77.032 - 36 g/dL06/22/2025 9:23 AM [facility] ORUSIJYWSUQRX58.211.5 - 15 %06/22/2025 9:23 AM [facility] LABORATORYPlatelet Neyek368554 - 450 X10E9/L1 9:23 AM [facility] LABORATORYMPV8.77 - 12 fL06/22/2025 9:23 AM [facility] LABORATORYNeutrophils %58.9%06/22/2025 9:23 AM [facility] LABORATORYLymphocytes %24.8%06/22/2025 9:23 AM [facility] LABORATORYMonocytes %10.5%06/22/2025 9:23 AM [facility] LABORATORYEosinophils %4.8%06/22/2025 9:23 AM [facility] LABORATORYBasophils %1.0%06/22/2025 9:23 AM [facility] LABORATORYNeutrophils Absolute (A)3.31.5 - 6.6 10*3/uL06/22/2025 9:23 AM [facility]ORYLymphocytes Absolute1.41.0 - 3.5 10*3/uL 06/22/2025 9:23 AM [facility] LABORATORYMonocytes Absolute0.6 0.0 - 0.9 10*3/uL06/22/2025 9:23 AM [facility] Eosinophils Absolute0.30.0 - 0.4 10*3/uL06/22/2025 9:23 AM [facility] LABORATORYBasophils Absolute0.10.0 - 0.2 10*3/uL06/22/2025 9:23 AM [facility]ATORYDifferential TypeAUTOMATED DIFFERENTIAL 06/22/2025 9:23 AM [facility] LABORATORYSpecimen (Source) Anatomical Location / LateralityCollection Method / VolumeCollection Time Received TimeBloodVenous blood / UnknownVenipuncture / Knyjgwr9606/22/2025 8:00 AM EDT1 9:07 AM EDT Narrative Authorizing ProviderResult TypeResult StatusFamatthew BARNES BLOOD ORDERABLES Final ResultPerforming OrganizationAddressCity/State/ZIP CodePhone Number [facility] [address] [place] [address], * Phosphorus (06/22/2025 8:00 AM EDT) Only the most recent of13 resultswithin the time period is included. ComponentValueRef RangeTest MethodAnalysis TimePerformed AtPathologist Signature PHOSPHORUS4.62.4 - 4.9 mg/dL06/22/2025 9:36 AM [facility] LABORATORYSpecimen (Source)Anatomical Location / LateralityCollection Method / VolumeCollection TimeReceived TimeBloodVenous blood / UnknownVenipuncture / Egpzghe8506/22/2025 8:00 AM EDT1 9:07 AM EDT Narrative Authorizing ProviderResult TypeResult StatusRamy A Erinn MDLAB BLOOD ORDERABLES Final ResultPerforming OrganizationAddressCity/State/ZIP CodePhone Number [facility] [address] [place] [address], * Magnesium (06/22/2025 8:00 AM EDT) Only the most recent of14 resultswithin the time period is included. ComponentValueRef RangeTest MethodAnalysis TimePerformed AtPathologist Signature MAGNESIUM2.31.8 - 2.6 mg/dL06/22/2025 9:36 AM [facility] LABORATORYSpecimen (Source)Anatomical Location / LateralityCollection Method / VolumeCollection TimeReceived TimeBloodVenous blood / UnknownVenipuncture / Rhwgpnc4506/22/2025 8:00 AM EDT1 9:07 AM EDT Narrative Authorizing ProviderResult TypeResult StatusRamy A Erinn MDLAB BLOOD ORDERABLES Final ResultPerforming OrganizationAddressCity/State/ZIP CodePhone Number [facility] [address] [place] [address], * Ionized calcium (06/22/2025 8:00 AM EDT) Only the most recent of13 resultswithin the time period is included. ComponentValueRef RangeTest MethodAnalysis TimePerformed AtPathologist Signature IONIZED CALCIUM - ICAN5.14.5 - 5.3 mg/dL06/22/2025 9:17 AM [facility] LABORATORYSpecimen (Source)Anatomical Location / LateralityCollection Method / VolumeCollection TimeReceived TimeBloodVenous blood / Unknown Venipuncture / Jkikcmw4606/22/2025 8:00 AM EDT1 9:09 AM EDT Narrative Authorizing ProviderResult TypeResult StatusRamy Luciana BARNES BLOOD ORDERABLES Final ResultPerforming OrganizationAddressCity/State/ZIP CodePhone Number [facility] [address] [place] [address], * (ABNORMAL) Comprehensive metabolic panel (06/22/2025 8:00 AM EDT) Only the most recent of20 resultswithin the time period is included. ComponentValueRef RangeTest MethodAnalysis TimePerformed AtPathologist Signature YRCUGZ571(H)134 - 146 mmol/L1 9:36 AM [facility] LABORATORYPOTASSIUM4.63.5 - 5.0 mmol/L1 9:36 AM [facility] DFCBMIKJDNHLUWMBVR107(H)98 - 109 mmol/L1 9:36 AM [facility] LABORATORYCARBON ZTZEFZT0514 - 32 mmol/L1 9:36 AM EDT [facility] LABORATORYANION JQM100 - 15 mmol/L1 9:36 AM [facility] LABORATORYBLOOD UREA JJNFJXRS78(H)5 - 27 mg/dL 06/22/2025 9:36 AM [facility] LABORATORYCREATININE1.75(H)0.60 - 1.30 mg/dL06/22/2025 9:36 AM [facility] LABORATORYComment: METHOD TRACEABLE TO IDMS YYFISEAOBGDRXJT816(H)65 - 99 mg/dL06/22/2025 9:36 AM [facility] LABORATORYCALCIUM9.98.5 - 10.5 mg/dL06/22/2025 9:36 AM [facility] LABORATORYTOTAL PROTEIN7.26.0 - 8.0 g/dL 06/22/2025 9:36 AM [facility] LABORATORYALBUMIN3.73.2 - 5.3 g/dL06/22/2025 9:36 AM [facility] LABORATORYALKALINE DTDVFJRITMN3121 - 130 U/L1 9:36 AM [facility] HVDYDNGMDXRFT95<=41 U/L1 9:36 AM [facility] ALT29<=40 U/L1 9:36 AM [facility] BILIRUBIN,TOTAL0.40.3 - 1.2 mg/dL06/22/2025 9:36 AM [facility]ORATORYEGFR Non-Race Wtlnbmeaw18(L)>=60 ml/min/1.73sq.m1 9:36 AM EDT [facility]ORATORYComment: Reported eGFR is based on the CKD-EPI 2020 equation that does not use a race coefficient. Specimen (Source)Anatomical Location / LateralityCollection Method / Volume Collection TimeReceived TimeBloodVenous blood / UnknownVenipuncture / Unknown 06/22/2025 8:00 AM EDT1 9:07 AM EDT Narrative Authorizing ProviderResult TypeResult StatusFahpipe BARNES BLOOD ORDERABLES Final ResultPerforming OrganizationAddressCity/State/ZIP CodePhone Number [facility] [address] [place] [address], * CT brain without contrast (06/21/2025 2:07 [...] Ishan Vidal, DO ??on 06/21/2025 2:20 PM Stiven [...] besidetheir name. Authorizing ProviderResult TypeResult StatusFahham Bang [facility] VASCULAR ORDERABLESFinal Result [...] on 06/17/2025 3:12 PM Authorizing ProviderResult TypeResult StatusFaUNC Health Nashqueta [facility] DIAGNOST[facility] IMAGING ORDERABLESFinal Result * (ABNORMAL) Urinalysis (06/17/2025 2:14 PM EDT) Only the most recent of3 resultswithin the time period is included. ComponentValueRef RangeTest MethodAnalysis TimePerformed AtPathologist Signature FNGZOWacllgLrxwfc19/26/2025 2:55 PM [facility] TURBIDITYHazy(A)Clear06/17/2025 2:55 PM [facility] SPECIFIC GRAVITY1.0151.003 - 1.6829206/17/2025 2:55 PM [facility] SOEMRJCZEJLNYUIYVTqlzlipwVdjdvyhd82/26/2025 2:55 PM [facility] LABORATORYPH,URINE6.05.0 - 8.510 2:55 PM [facility] LABORATORYLEUKOCYTE ESTERASESmall(A)Kgjayslx72/26/2025 2:55 PM [facility] VBYDHQDLNAPETAXLE442 mg/dL(A)Otzxjjde80/ 2:55 PM EDT [facility] LABORATORYKETONES (URINE)AlskardeTdwtpfzo17/26/2025 2:55 PM [facility] LABORATORYUROBILINOGEN<1.1 eu/dL<1.1 eu/dL 06/17/2025 2:55 PM [facility] LABORATORYBILIRUBIN (URINE) WhxjagjySrflyrsw17/26/2025 2:55 PM [facility] BLOOD/HGBLarge(A)Qfbsjctp31/26/2025 2:55 PM [facility] LABORATORYHYALINE CASTS4(H)0 - 2:55 PM [facility] LABORATORYR.B.CELLS>720(H)0 - 2:55 PM [facility] LABORATORYW.B.CELLS11(H)0 - 2:55 PM [facility] LABORATORYGLUCOSE (URINE)JfyfejngYmuvsvvv54/26/2025 2:55 PM [facility] LABORATORYSpecimen (Source)Anatomical Location / LateralityCollection Method / VolumeCollection TimeReceived TimeUrine (Urine, Indwelling Catheter) 06/17/2025 2:14 PM EDT1 2:18 PM EDT Narrative Authorizing ProviderResult TypeResult Janet Cuenca MDURINE ORDERABLES Final ResultPerforming OrganizationAddressCity/State/ZIP CodePhone Number [facility] [address] [place] [address], * Urine Culture Urine, Indwelling Catheter (06/17/2025 1:48 PM EDT)Component ValueRef RangeTest MethodAnalysis TimePerformed AtPathologist SignatureCULTURE RESULTSNO GROWTH AT <1000 CFU/mL06/18/2025 12:46 PM [facility] LABORATORYSpecimen (Source)Anatomical Location / LateralityCollection Method / VolumeCollection TimeReceived TimeUrine (Urine, Indwelling Catheter) 06/17/2025 1:48 PM EDT1 2:18 PM EDT Narrative Authorizing ProviderResult TypeResult Janet Cuenca MDMICROBIOLOGY - GENERAL ORDERABLESFinal ResultPerforming OrganizationAddressCity/State/ZIP Code Phone Number [facility] [address] [place] [address], * Blood culture #2 (06/17/2025 1:20 PM EDT) Only the most recent of2 resultswithin the time period is included. ComponentValueRef RangeTest MethodAnalysis TimePerformed AtPathologist Signature CULTURE RESULTSNO GROWTH 5 DAYS06/22/2025 2:02 PM [facility] LABORATORYSpecimen (Source)Anatomical Location / LateralityCollection Method / VolumeCollection TimeReceived TimeBloodVenous blood / UnknownVenipuncture / Frugfdl2906/17/2025 1:20 PM EDT1 1:49 PM EDT Narrative [facility] - 06/22/2025 2:02 PM EDT Suboptimal volume of blood collected, Results may be affected. Authorizing ProviderResult TypeResult StatusFaDesert Valley HospitalROBIOLOGY GENERAL ORDERABLESFinal ResultPerforming OrganizationAddressCity/State/ZIP Code Phone Number [facility] [address] [place] [address], * (ABNORMAL) Sodium (06/15/2025 5:52 PM EDT)ComponentValueRef RangeTest Method Analysis TimePerformed AtPathologist ZqrduhsjpYVSWUK583(H)134 - 146 mmol/L 06/15/2025 7:11 PM [facility] LABORATORYSpecimen (Source) Anatomical Location / LateralityCollection Method / VolumeCollection Time Received TimeBloodVenous blood / UnknownVenipuncture / Abrqnrt8106/15/2025 5:52 PM EDT1 6:31 PM EDT Narrative Authorizing ProviderResult TypeResult StatusVidhit Yuko DOLAB BLOOD ORDERABLES Final ResultPerforming OrganizationAddressCity/State/ZIP CodePhone Number [facility] [address] [place] [address], * Potassium (06/15/2025 5:52 PM EDT) Only the most recent of3 resultswithin the time period is included. ComponentValueRef RangeTest MethodAnalysis TimePerformed AtPathologist Signature POTASSIUM4.53.5 - 5.0 mmol/L1 7:11 PM EDTTCOMM[facility] LABORATORYSpecimen (Source)Anatomical Location / LateralityCollection Method / VolumeCollection TimeReceived TimeBloodVenous blood / UnknownVenipuncture / Feubwaq4406/15/2025 5:52 PM EDT1 6:31 PM EDT Narrative Authorizing ProviderResult TypeResult StatusFapipe BARNES BLOOD ORDERABLES Final ResultPerforming OrganizationAddressCity/State/ZIP CodePhone Number [facility] [address] [place] [address], * NM renogram with lasix (06/15/2025 12:38 [...] 06/15/2025 4:29 PM Authorizing ProviderResult TypeResult StatusRebecca [facility] [place] ORDERABLESFinal Result * Fluoroscopy swallow motility [...] report for additionaldetails and recommendations. Approved by Res Amee Figueroa MD on 06/14/2025 2:33 PM IStiven [...] number besidetheir name. Authorizing ProviderResult TypeResult StatusMohamed Luciana Ortiz [facility] VASCULAR ORDERABLESFinal Result [...] on 06/12/2025 4:47 AM Authorizing ProviderResult TypeResult StatusMoeliecer [facility] ORDERABLESFinal Result * (ABNORMAL) B-type natriuretic peptide (06/12/2025 4:24 AM EDT) Only the most recent of4 resultswithin the time period is included. ComponentValueRef RangeTest MethodAnalysis TimePerformed AtPathologist Signature XDE513(H)<=100 pg/mL06/12/2025 6:27 AM [facility] Specimen (Source)Anatomical Location / LateralityCollection Method / Volume Collection TimeReceived TimeBloodVenous blood / UnknownVenipuncture / Unknown 06/12/2025 4:24 AM EDT1 5:30 AM EDT Narrative Authorizing ProviderResult TypeResult StatusAdan BARNES BLOOD ORDERABLES Final ResultPerforming OrganizationAddressCity/State/ZIP CodePhone Number [facility] [address] [place] [address], * Ionized magnesium (06/11/2025 1:10 PM EDT)ComponentValueRef RangeTest Method Analysis TimePerformed AtPathologist SignatureIONIZED MAGNESIUM0.700.45 - 0.74 mmol/L1 1:43 PM [facility] LABORATORYSpecimen (Source)Anatomical Location / LateralityCollection Method / VolumeCollection TimeReceived TimeBloodVenous blood / UnknownVenipuncture / Ckcwqaf4106/11/2025 1:10 PM EDT1 1:23 PM EDT Narrative Authorizing ProviderResult TypeResult StatusDeon Frank MDLAB BLOOD ORDERABLES Final ResultPerforming OrganizationAddressCity/State/ZIP CodePhone Number [facility] [address] [place] [id number], * Clinical Pathology Review (06/11/2025 11:31 AM EDT)ComponentValueRef RangeTest MethodAnalysis TimePerformed AtPathologist SignatureCase ReportClinical Pathology Report ? Case: [id number] ? Authorizing Provider: ??Mohamed Luciana Ortiz MD ?Collected: ? 06/11/2025 1131 ? Ordering Location: ? [facility] ??Received: ?06/11/2025 1131 ? - GEN 8 ICU ? Pathologist: ? Basilio Garrido MD ? Specimen: ?Blood, Venous ? 06/13/2025 8:09 PM [facility] LABORATORYFinal DiagnosisNo monoclonal protein identified. 06/13/2025 8:09 PM [facility] at 2008 EDTSpecimen (Source)Anatomical Location / LateralityCollection Method / VolumeCollection TimeReceived Time Venous blood / Pcqukfw7806/11/2025 11:31 AM EDT1 11:31 AM EDT Narrative Authorizing ProviderResult TypeResult StatusMohamed Luciana Ortiz MD PATHOLOGY/CYTOLOGY ORDERABLESFinal ResultPerforming OrganizationAddress City/State/ZIP CodePhone Number [facility] [address] [place] [address], * Troponin I, High Sensitivity 1 Hour (06/10/2025 3:33 AM EDT)ComponentValueRef RangeTest MethodAnalysis TimePerformed AtPathologist SignatureTROPONIN I, HIGH LPTBNQWNCQT90<21 ng/L1 4:15 AM [facility] Specimen (Source)Anatomical Location / LateralityCollection Method / Volume Collection TimeReceived TimeBloodVenous blood / UnknownVenipuncture / Unknown 06/10/2025 3:33 AM EDT1 3:42 AM EDT Narrative Authorizing ProviderResult TypeResult StatusMargo BARNES BLOOD ORDERABLESFinal ResultPerforming OrganizationAddressCommunity [facility]/State/ZIP CodePhone Number [facility] [address] [place] [address], * Troponin I, High Sensitivity 0 Hour (06/10/2025 2:52 AM EDT)ComponentValueRef RangeTest MethodAnalysis TimePerformed AtPathologist SignatureTROPONIN I, HIGH VETTSEMRZLU08<21 ng/L1 3:35 AM [facility] Specimen (Source)Anatomical Location / LateralityCollection Method / Volume Collection TimeReceived TimeBloodVenous blood / UnknownVenipuncture / Unknown 06/10/2025 2:52 AM EDT1 3:03 AM EDT Narrative Authorizing ProviderResult TypeResult StatusMargo BARNES BLOOD ORDERABLESFinal ResultPerforming OrganizationAddIndiana Regional [facility]/State/ZIP CodePhone Number [facility] [address] [place] [address] [address] [place] [address], * ECG 12 lead (06/10/2025 1:28 AM EDT) Only the most recent of2 resultswithin the time period is included. Specimen (Source)Anatomical Location / LateralityCollection Method / Volume Collection TimeReceived Time10/ 1:28 AM EDT Narrative [facility] - 06/10/2025 9:22 AM EDT Authorizing ProviderResult TypeResult StatusMargo Drake FLECG ORDERABLES Final ResultPerforming OrganizationAddressCity/State/ZIP CodePhone Number [facility] * Echo complete W/ contrast (06/08/2025 2:02 PM EDT)ComponentValueRef RangeTest MethodAnalysis TimePerformed AtPathologist SignatureLVOT stroke idcefo01.40ml BKCAQEBGK5009 - 44 %XCELERALVIDd4.708.34 - 11.59 cmXCELERALVIDs3.204.80 - 7.27 cmXCELERAIVS1.300.6 - 1.1 cmXCELERAPW1.300.6 - 1.1 cmXCELERALVOT diameter2.00 cmXCELERATDI6.96cm/sXCELERAMV TDI E' (medial)6.42cm/sXCELERALA Volume Index 30.6mL/t4LDJRVJVW/A ratio0.87XCELERAE wave deceleration emcd772.00msecXCELERA MV Peak E Jcn235.00cm/sXCELERAMV Peak A Yzs405.00cm/sXCELERALA size2.90cm XCELERAAortic root3.90cmXCELERALA jepzlx93.69om4ONXLLHCCACXP2.08cmXCELERAAV peak qth747.00cm/sXCELERALVOT peak vel1.31m/sXCELERAAV VTI23.20cmXCELERALVOT peak VTI24.00cmXCELERAAV mean gradient5.00mmHgXCELERAAV peak gradient8.41mmHg XCELERAAV valve area3.25XCELERAValve area - Index1.3XCELERAMV pressure 1/2 time75.00msXCELERAMV valve area p 1/2 method2.59eh6NODMHMQSC peak gradient3.16 mmHgXCELERALV ESV A2C63.40mLXCELERALV ESV A4C75.80mLXCELERALV RWT 2D55.32 XCELERAAV Velocity Ratio1.03XCELERALeft Ventricle Yviq956.849448193038383v XCELERAInterventricular Septum Diastolic Thickness by 4Y22fgGBNWYPQCK area13.1 dj7IPOIFAECgphecyae aorta3.70cmXCELERAAo asc z-score3.46cmXCELERARV diastolic dimension (basal)34.5mmXCELERAEst. RA sayvrsah2vvJuWKOHNEZQAVKPC-8.85XCELERA ZLVIDD-7.38XCELERAEnergy loss index28.06XCELERAAnatomical RegionLaterality ModalityChestN/AUltrasoundSpecimen (Source)Anatomical Location [...] commands. Authorizing ProviderResult TypeResult StatusAhmed Luciana Farfan Theeb MDCV ECHO ORDERABLESFinal Result * CK Total (06/08/2025 2:49 AM EDT)ComponentValueRef RangeTest MethodAnalysis TimePerformed AtPathologist XcmthujioMZX56917 - 195 U/L1 4:36 AM EDT [facility]ORATORYSpecimen (Source)Anatomical Location / LateralityCollection Method / VolumeCollection TimeReceived TimeBloodVenous blood / UnknownVenipuncture / Sgehdwr3206/08/2025 2:49 AM EDT1 3:53 AM EDT Narrative Authorizing ProviderResult TypeResult StatusMohamjoyce Ortiz MDLAB BLOOD ORDERABLESFinal ResultPerforming OrganizationAddressCity/State/ZIP CodePhone Number [facility] [address] [place] [address], * PST TOP (06/07/2025 8:02 PM EDT)ComponentValueRef RangeTest MethodAnalysis TimePerformed AtPathologist SignatureExtra TubeAuto Hpjrhlaa29/16/2025 10:02 PM EDTTCOMMUNITY [facility]IAL [facility] LABORATORYSpecimen (Source)Anatomical Location / LateralityCollection Method / VolumeCollection TimeReceived TimeBloodVenous blood / Qkrmker4306/07/2025 8:02 PM EDT1 8:16 PM EDT Narrative Authorizing ProviderResult TypeResult StatusEhtaqueria Frank MDLAB BLOOD ORDERABLES Final ResultPerforming OrganizationAddressCity/State/ZIP CodePhone Number [facility] [address] [place] [address], [place] [phone] * Dilute Samia's Viper Venom Confirmation (06/07/2025 8:00 PM EDT)Specimen (Source)Anatomical Location / LateralityCollection Method / VolumeCollection TimeReceived TimeBloodVenous blood / UnknownVenipuncture / Hokcpiy2706/07/2025 8:00 PM EDT1 8:15 PM EDT Narrative Authorizing ProviderResult TypeResult StatusOlkaushal Jonathan Isai FLLAB BLOOD ORDERABLESFinal ResultPerforming OrganizationAddressCity/State/ZIP CodePhone Number [facility] [address] [place] [address], [place] [phone] * Cytoplasmic Neutrophilic Ab (ANCA), S (06/07/2025 8:00 PM EDT)ComponentValue Ref RangeTest MethodAnalysis TimePerformed AtPathologist SignatureC-ANCA TfutywtlDgpaffin62/17/2025 2:44 PM EDUF [facility] LABORATORIESP-ANCANegative Nlkhfdev48/17/2025 2:44 PM [facility] LABORATORIESComment: Negative for cANCA and pANCA patterns by immunofluorescence. ADDITIONAL INFORMATION This test was developed and its performance characteristics determined by [facility] in a manner consistent with CLIA requirements. This test has not been cleared or approved by the U.S. Food and Drug Administration. Test Performed by: [facility] [place] [address] Pulling Unit Floorhand: Anastasiya Alegria Ph.D.; CLIA# [id number] Specimen (Source)Anatomical Location / LateralityCollection Method / Volume Collection TimeReceived TimeBloodVenous blood / UnknownVenipuncture / Unknown 06/07/2025 8:00 PM EDT1 8:15 PM EDT Narrative Authorizing ProviderResult TypeResult StatusMojose Ortiz MDHANOVER H[facility] BLOOD ORDERABLESFinal ResultPerforming OrganizationAddressCity/State/ZIP CodePhone Number [facility] [address] [place] [address], * Anti cardiolipin AB IgG IgA IgM (06/07/2025 8:00 PM EDT)ComponentValueRef RangeTest MethodAnalysis TimePerformed AtPathologist SignatureACA IGA<2.00.0 - 19.9 APL06/07/2025 9:47 PM [facility]ORATORYACA IGG<1.6 0.0 - 19.9 GPL1 9:47 PM [facility] LABORATORYACA IGM <1.50.0 - 19.9 MPL06/07/2025 9:47 PM [facility] Specimen (Source)Anatomical Location / LateralityCollection Method / Volume Collection TimeReceived TimeBloodVenous blood / UnknownVenipuncture / Unknown 06/07/2025 8:00 PM EDT1 8:15 PM EDT Narrative Authorizing ProviderResult TypeResult StatusOlubdarline Alex MDLAB BLOOD ORDERABLESFinal ResultPerforming OrganizationAddressCity/State/ZIP CodePhone Number [facility] [address] [place] [address], [place] [phone] * Glomerular basement membrane IgG AB (06/07/2025 8:00 PM EDT)ComponentValueRef RangeTest MethodAnalysis TimePerformed AtPathologist SignatureGBM IGG AB<0.2 <1.0 AI06/07/2025 10:33 PM [facility] LABORATORYSpecimen (Source)Anatomical Location / LateralityCollection Method / VolumeCollection TimeReceived TimeBloodVenous blood / UnknownVenipuncture / Ecrhetp5506/07/2025 8:00 PM EDT1 8:15 PM EDT Narrative Authorizing ProviderResult TypeResult StatusMojose Ortiz FLLAB BLOOD ORDERABLESFinal ResultPerforming OrganizationAddressCity/State/ZIP CodePhone Number [facility] [address] [place] [address], [place] [phone] * (ABNORMAL) Complement profile (C3 AND C4) (06/07/2025 8:00 PM EDT)Component ValueRef RangeTest MethodAnalysis TimePerformed AtPathologist Signature COMPLEMENT C381938 - 184 mg/dL06/07/2025 8:50 PM [facility] LABORATORYCOMPLEMENT C453(H)16 - 47 mg/dL06/07/2025 8:50 PM [facility] LABORATORYSpecimen (Source)Anatomical Location / LateralityCollection Method / VolumeCollection TimeReceived TimeBloodVenous blood / Unknown Venipuncture / Ilpdrwa8006/07/2025 8:00 PM EDT1 8:15 PM EDT Narrative Authorizing ProviderResult TypeResult StatusMojose Ortiz FLLAB BLOOD ORDERABLESFinal ResultPerforming OrganizationAddressCity/State/ZIP CodePhone Number [facility] [address] [place] [address], * (ABNORMAL) Hemoglobin and hematocrit, blood (06/07/2025 8:00 PM EDT)Component ValueRef RangeTest MethodAnalysis TimePerformed AtPathologist Signature Qrlmrocqtm05.113 - 17 g/dL06/08/2025 3:47 AM [facility] KQXVOPVSWILrudhkkfdd78.1(L)39 - 50 %06/08/2025 3:47 AM [facility] LABORATORYSpecimen (Source)Anatomical Location / LateralityCollection Method / VolumeCollection TimeReceived TimeBloodVenous blood / Unknown Venipuncture / Xzibyjg6406/07/2025 8:00 PM EDT1 8:15 PM EDT Narrative Authorizing ProviderResult TypeResult StatusMohamtaqueria Whaley FLLAB BLOOD ORDERABLESFinal ResultPerforming OrganizationAddressCity/State/ZIP CodePhone Number [facility] [address] [place] [address], * Hepatitis panel, acute (06/07/2025 8:00 PM EDT)ComponentValueRef RangeTest MethodAnalysis TimePerformed AtPathologist SignatureHEPATITIS B SURF AG Upd-RoyharrqOdo-Bamfrzdy24/16/2025 10:26 PM [facility] LABORATORYHEPATITIS A YMBAqh-HrdqrmtvTex-Dxxpdlga54/16/2025 10:26 PM [facility] LABORATORYHEPATITIS B CORE YESVqo-CsgdeuufLii-Uszcxjxe 06/07/2025 10:26 PM [facility] LABORATORYANTI HCV W/PCR REFLX Gvj-MjvkjvuzXxo-Hocixnrg76/16/2025 10:26 PM [facility] LABORATORYComment: If recent infection suspected, recommend repeat testing (>2 months). Bzjeig-vh-dauvvt ratio is <1.0. Specimen (Source)Anatomical Location / LateralityCollection Method / Volume Collection TimeReceived TimeBloodVenous blood / UnknownVenipuncture / Unknown 06/07/2025 8:00 PM EDT1 8:15 PM EDT Narrative Authorizing ProviderResult TypeResult StatusMohamjoyce Ortiz FLLAB BLOOD ORDERABLESFinal ResultPerforming OrganizationAddressCity/State/ZIP CodePhone Number [facility] [address] [place] [address], * DRVVT (06/07/2025 8:00 PM EDT)ComponentValueRef RangeTest MethodAnalysis Time Performed AtPathologist SignatureDILUTE SAMIA'S VIPER VENOMNEGATIVE FOR LUPUS CQYCMESSBMGXD19/20/2025 9:36 AM [facility] Specimen (Source)Anatomical Location / LateralityCollection Method / Volume Collection TimeReceived TimeBloodVenous blood / UnknownVenipuncture / Unknown 06/07/2025 8:00 PM EDT1 8:15 PM EDT Narrative Authorizing ProviderResult TypeResult StatusOlubdarline Alex FLLAB BLOOD ORDERABLESFinal ResultPerforming OrganizationAddressCity/State/ZIP CodePhone Number [facility] [address] [place] [address], * (ABNORMAL) Immunoelectrophoresis for Therapy Monitoring (06/07/2025 8:00 PM EDT)ComponentValueRef RangeTest MethodAnalysis TimePerformed AtPathologist TjjfhxehiXGA11941 - 378 mg/dL06/13/2025 8:15 PM [facility] URESBAFUONWKB060338 - 1,741 mg/dL06/13/2025 8:15 PM [facility] PELHFPWIBKGCJ88749 - 281 mg/dL06/13/2025 8:15 PM [facility] LABORATORYFREE KAPPA LT CHAINS3.96(H)0.33 - 1.94 mg/dL06/13/2025 8:15 PM [facility] LABORATORYImmune Profile InterpretationSee Pathology Oeubeh6906/13/2025 8:15 PM [facility] LABORATORYFREE LAMBDA LT CHAINS2.65(H)0.57 - 2.63 mg/dL06/13/2025 8:15 PM [facility] LABORATORYFREE JULIENNE/LAMBD RATIO1.490.26 - 1.6506/13/2025 8:15 PM EDT [facility] LABORATORYSpecimen (Source)Anatomical Location / LateralityCollection Method / VolumeCollection TimeReceived TimeBloodVenous blood / UnknownVenipuncture / Vstlwit3606/07/2025 8:00 PM EDT1 8:15 PM EDT Narrative Authorizing ProviderResult TypeResult StatusMohamed Luciana BARNES BLOOD ORDERABLESFinal ResultPerforming OrganizationAddressCity/State/ZIP CodePhone Number [facility] [address] [place] [address], * (ABNORMAL) Protein electrophoresis, serum (06/07/2025 8:00 PM EDT)Component ValueRef RangeTest MethodAnalysis TimePerformed AtPathologist SignatureTOTAL PROTEIN5.9(L)6.0 - 8.0 g/dL06/11/2025 8:47 AM [facility] LABORATORYALPHA 1 GLOBULIN0.30.1 - 0.4 g/dL06/11/2025 8:47 AM [facility] LABORATORYALPHA 2 GLOBULIN0.60.4 - 1.1 g/dL06/11/2025 8:47 AM [facility] LABORATORYBETA GLOBULIN0.90.5 - 1.2 g/dL 06/11/2025 8:47 AM [facility] LABORATORYGAMMA GLOBULIN0.90.5 - 1.6 g/dL06/11/2025 8:47 AM [facility] LABORATORYProtein Electrophoresis InterpUnremarkable protein distribution, no monoclonal bands 06/11/2025 8:47 AM [facility] LABORATORYAlbumin3.3(L)3.4 - 5.3 g/dL06/11/2025 8:47 AM [facility] LABORATORYSpecimen (Source)Anatomical Location / LateralityCollection Method / VolumeCollection TimeReceived TimeBloodVenous blood / UnknownVenipuncture / Yqphczw8706/07/2025 8:00 PM EDT1 8:15 PM EDT Narrative Authorizing ProviderResult TypeResult StatusMohamed A Angel BARNES BLOOD ORDERABLESFinal ResultPerforming OrganizationAddressCity/State/ZIP CodePhone Number [facility] [address] [place] [address], * (ABNORMAL) Hemoglobin A1c (06/07/2025 8:00 PM EDT) Only the most recent of2 resultswithin the time period is included. ComponentValueRef RangeTest MethodAnalysis TimePerformed AtPathologist Signature HEMOGLOBIN A1C8.3(H)4.4 - 5.6 %06/07/2025 8:43 PM [facility] LABORATORYComment: ?ADA Guidelines ?Result ?HgbA1c ? Normal : ? less than 5.7 % ? Prediabetes : ?5.7 % ??to 6.4 % Diabetes : > 6.4 % ?Use with caution in patients with abnormal hemoglobin variants as ??the half-life of red blood cells and in vivo glycation rates are ??affected. EST. AVERAGE QIVTCDY789aj/dL06/07/2025 8:43 PM [facility] LABORATORYSpecimen (Source)Anatomical Location / LateralityCollection Method / VolumeCollection TimeReceived TimeBloodVenous blood / UnknownVenipuncture / Pbhscap6506/07/2025 8:00 PM EDT1 8:15 PM EDT Narrative Authorizing ProviderResult TypeResult StatusMohamed Luciana BARNES BLOOD ORDERABLESFinal ResultPerforming OrganizationAddressCity/State/ZIP CodePhone Number [facility] [address] [place] [address], [place] [phone] * Ultrasound retroperitoneal complete with duplex (06/07/2025 [...] StatusMohamed Luciana [facility] ORDERABLESFinal Result * (ABNORMAL) Protein creat ratio (06/07/2025 4:21 PM EDT)ComponentValueRef Range Test MethodAnalysis TimePerformed AtPathologist SignatureURINE PROTEIN, RANDOM (MG/L)1,120(H)<120 mg/L1 6:31 PM [facility] LABORATORYURINE CREATININE,QPO936.24mg/dL06/07/2025 6:31 PM [facility] LABORATORYU/PRO/DEBONER RATIO CALC1.00(H)<=0. 6:31 PM EDT [facility] LABORATORYSpecimen (Source)Anatomical Location / LateralityCollection Method / VolumeCollection TimeReceived TimeUrineUrine / Majjzqs8306/07/2025 4:21 PM EDT1 5:17 PM EDT Narrative [facility] - 06/07/2025 6:31 PM EDT Nephrotic Syndrome is associated with ratios >3.5 Authorizing ProviderResult TypeResult StatusMojose LEWIS ORDERABLES Final ResultPerforming OrganizationAddressCity/State/ZIP CodePhone Number [facility] [address] [place] [address], [place] [phone] * Urine Creatinine,random (06/07/2025 4:21 PM EDT)ComponentValueRef RangeTest MethodAnalysis TimePerformed AtPathologist SignatureURINE CREATININE,MMX771.24 mg/dL06/07/2025 6:31 PM [facility] LABORATORYSpecimen (Source)Anatomical Location / LateralityCollection Method / VolumeCollection TimeReceived TimeUrineUrine / Zomaaiu7806/07/2025 4:21 PM EDT1 5:17 PM EDT Narrative Authorizing ProviderResult TypeResult StatusMohamed Luciana Ortiz MDURINE ORDERABLES Final ResultPerforming OrganizationAddressCity/State/ZIP CodePhone Number [facility] [address] [place] [address], * (ABNORMAL) Microalbumin - Albumin: Creatinine Urine Ratio (06/07/2025 4:21 PM EDT)ComponentValueRef RangeTest MethodAnalysis TimePerformed AtPathologist SignatureURINE CREATININE,JDB160.24mg/dL06/07/2025 6:31 PM [facility] LABORATORYMALB/CREAT UIZZK625.9(H)0.0 - 30.0 mg/g1 6:31 PM [facility] LABORATORYMICROALBUMIN, URINE74.4(H)0.0 - 1.9 mg/dL06/07/2025 6:31 PM [facility] LABORATORYSpecimen (Source)Anatomical Location / LateralityCollection Method / VolumeCollection TimeReceived TimeUrineUrine / Omuyzvc0606/07/2025 4:21 PM EDT1 5:17 PM EDT Narrative Authorizing ProviderResult TypeResult StatusMohamed Luciana LEWIS ORDERABLES Final ResultPerforming OrganizationAddressty/State/ZIP CodePhone Number [facility] [address] [place] [address], * Sodium, urine, random (06/07/2025 4:21 PM EDT)ComponentValueRef RangeTest MethodAnalysis TimePerformed AtPathologist SignatureURINE SODIUM,RAAPAO60 mmol/L1 6:31 PM [facility] LABORATORYSpecimen (Source)Anatomical Location / LateralityCollection Method / VolumeCollection TimeReceived TimeUrineUrine / Ntfctfm5506/07/2025 4:21 PM EDT1 5:17 PM EDT Narrative Authorizing ProviderResult TypeResult StatusMojose LEWIS ORDERABLES Final ResultPerforming OrganizationAddressCity/State/ZIP CodePhone Number [facility] [address] [place] [address], * Levetiracetam, S (06/07/2025 12:27 PM EDT)ComponentValueRef RangeTest Method Analysis TimePerformed AtPathologist SignatureLEVETIRACETAM, S26.510.0 - 40.0 mcg/mL06/08/2025 11:54 AM [facility] LABORATORIESComment: ADDITIONAL INFORMATION This test was developed and its performance characteristics determined by [facility] in a manner consistent with CLIA requirements. This test has not been cleared or approved by the U.S. Food and Drug Administration. Test Performed by: [facility] [place] [address] Pulling Unit Floorhand: Anastasiya Alegria Ph.D.; CLIA# [id number] Specimen (Source)Anatomical Location / LateralityCollection Method / Volume Collection TimeReceived TimeBloodVenous blood / UnknownVenipuncture / Unknown 06/07/2025 12:27 PM EDT1 12:38 PM EDT Narrative Authorizing ProviderResult TypeResult StatusAhmed Luciana BARNES BLOOD ORDERABLESFinal ResultPerforming OrganizationAddressCity/State/ZIP CodePhone Number [facility] [address] [place] [address], * HIV 1&2 AB/AG Screen (P24 AG) (06/07/2025 12:27 PM EDT)ComponentValueRef Range Test MethodAnalysis TimePerformed AtPathologist SignatureHIV 1 AND 2 AB/AG REBIEVLcx-AiippculCbr-Xoraycio21/16/2025 5:19 PM [facility] LABORATORYSpecimen (Source)Anatomical Location / LateralityCollection Method / VolumeCollection TimeReceived TimeBloodVenous blood / UnknownVenipuncture / Vyjrnfc4606/07/2025 12:27 PM EDT1 12:38 PM EDT Narrative [facility] - 06/07/2025 5:19 PM EDT This [...] or diagnoses. Authorizing ProviderResult TypeResult StatusMohamed Luciana Dextrys BLOOD ORDERABLESFinal ResultPerforming OrganizationAddressCity/State/ZIP CodePhone Number [facility] [address] [place] [id number], * (ABNORMAL) Iron and TIBC (06/07/2025 12:27 PM EDT)ComponentValueRef RangeTest MethodAnalysis TimePerformed AtPathologist JszknxdmkLUHK8594 - 212 ug/dL 06/07/2025 2:44 PM [facility] PUYTGZQEWJTDWAXWIRMZE755539 - 336 mg/dL06/07/2025 2:44 PM [facility] LABORATORYIRON BINDING 481547 - 425 ug/dL06/07/2025 2:44 PM [facility] IRON IPKXAUZTCJ18(L)20 - 50 % DFGANKUXYT56/16/2025 2:44 PM [facility] LABORATORYSpecimen (Source)Anatomical Location / LateralityCollection Method / VolumeCollection TimeReceived TimeBloodVenous blood / Unknown Venipuncture / Wfnkjyz5206/07/2025 12:27 PM EDT1 12:38 PM EDT Narrative Authorizing ProviderResult TypeResult StatusMohamed Luciana Dextrys BLOOD ORDERABLESFinal ResultPerforming OrganizationAddressCity/State/ZIP CodePhone Number [facility] [address] [place] [address], * DNA double-stranded (dsDNA) Abs (06/07/2025 12:27 PM EDT)ComponentValueRef RangeTest MethodAnalysis TimePerformed AtPathologist SignatureDouble Stranded DNA Ab<1<5 IU/ML06/07/2025 6:34 PM [facility] Specimen (Source)Anatomical Location / LateralityCollection Method / Volume Collection TimeReceived TimeBloodVenous blood / UnknownVenipuncture / Unknown 06/07/2025 12:27 PM EDT1 12:38 PM EDT Narrative [facility] - 06/07/2025 6:34 PM EDT Interpretation < 5 Negative 5 - 9 Indeterminate > 9 Positive Authorizing ProviderResult TypeResult StatusMohamjoyce Ortiz MDLAB BLOOD ORDERABLESFinal ResultPerforming OrganizationAddressCity/State/ZIP CodePhone Number [facility] [address] [place] [address], * Beta-2 glycoprotein antibodies (06/07/2025 12:27 PM EDT)ComponentValueRef RangeTest MethodAnalysis TimePerformed AtPathologist SignatureBeta-2 Glycoproteins GPI IgG<1.40.0 - 19.9 u/mL06/07/2025 6:36 PM [facility] LABORATORYBeta-2 Glycoproteins GPI IgM<1.50.0 - 19.9 u/mL06/07/2025 6:36 PM [facility] LABORATORYBeta-2 Glycoproteins GPI IgA<2.0 0.0 - 19.9 u/mL06/07/2025 6:36 PM [facility] Specimen (Source)Anatomical Location / LateralityCollection Method / Volume Collection TimeReceived TimeBloodVenous blood / UnknownVenipuncture / Unknown 06/07/2025 12:27 PM EDT1 12:38 PM EDT Narrative Authorizing ProviderResult TypeResult StatusOlubdarline Alex MDLAB BLOOD ORDERABLESFinal ResultPerforming OrganizationAddressCity/State/ZIP CodePhone Number [facility] [address] [place] [address], * Rheumatoid factor (06/07/2025 12:27 PM EDT)ComponentValueRef RangeTest Method Analysis TimePerformed AtPathologist SignatureRHEUMATOID FACTOR<10<20 IU/mL 06/07/2025 3:08 PM [facility] LABORATORYSpecimen (Source) Anatomical Location / LateralityCollection Method / VolumeCollection Time Received TimeBloodVenous blood / UnknownVenipuncture / Rajdthj3906/07/2025 12:27 PM EDT1 12:38 PM EDT Narrative Authorizing ProviderResult TypeResult StatusMohamed Luciana Ortiz [employer]-Now BLOOD ORDERABLESFinal ResultPerforming OrganizationAddressCity/State/ZIP CodePhone Number [facility] [address] [place] [address], * LUIZA Screen w/ Reflex (06/07/2025 12:27 PM EDT)ComponentValueRef RangeTest MethodAnalysis TimePerformed AtPathologist SignatureANA SCREEN W/REFLEX FmwagpuoFpeqpmlf18/16/2025 6:34 PM [facility] Specimen (Source)Anatomical Location / LateralityCollection Method / Volume Collection TimeReceived TimeBloodVenous blood / UnknownVenipuncture / Unknown 06/07/2025 12:27 PM EDT1 12:38 PM EDT Narrative [facility] - 06/07/2025 6:34 PM EDT Testing performed using multiplex flow immunoassay. Eleven difference antigens associated with systemic autoimmunie diseases (dsDNA, Sm, Sm/FACS TEACHER, FACS TEACHER, Chromatin, SSA, SSB, Katarina-1, Sc170, Ribo P, Centromere B) are included in this sreening tests. Authorizing ProviderResult TypeResult StatusMohamed Luciana SiteheartAccelalox BLOOD ORDERABLESFinal ResultPerforming OrganizationAddressCity/State/ZIP CodePhone Number [facility] [address] [place] [address], * Folate (06/07/2025 12:27 PM EDT)ComponentValueRef RangeTest MethodAnalysis TimePerformed AtPathologist SignatureFOLIC ACID11.1>5.8 ng/mL06/07/2025 3:28 PM [facility] LABORATORYSpecimen (Source)Anatomical Location / LateralityCollection Method / VolumeCollection TimeReceived TimeBloodVenous blood / UnknownVenipuncture / Jbgwtkv1206/07/2025 12:27 PM EDT1 12:38 PM EDT Narrative Authorizing ProviderResult TypeResult StatusMohamed Luciana Ortiz [employer] BLOOD ORDERABLESFinal ResultPerforming OrganizationAddressCity/State/ZIP CodePhone Number [facility] [address] [place] [address], * Ferritin (06/07/2025 12:27 PM EDT)ComponentValueRef RangeTest MethodAnalysis TimePerformed AtPathologist XbpywgtteXKTBITSR19392 - 336 ng/mL06/07/2025 3:25 PM [facility] LABORATORYSpecimen (Source)Anatomical Location / LateralityCollection Method / VolumeCollection TimeReceived TimeBloodVenous blood / UnknownVenipuncture / Eqbdsdl0006/07/2025 12:27 PM EDT1 12:38 PM EDT Narrative Authorizing ProviderResult TypeResult StatusMohamed Luciana RashidAccelalox BLOOD ORDERABLESFinal ResultPerforming OrganizationAddressCity/State/ZIP CodePhone Number [facility] [address] [place] [address], * Vitamin B12 (06/07/2025 12:27 PM EDT)ComponentValueRef RangeTest Method Analysis TimePerformed AtPathologist SignatureVITAMIN [id number] - 914 pg/mL 06/07/2025 3:29 PM [facility] LABORATORYSpecimen (Source) Anatomical Location / LateralityCollection Method / VolumeCollection Time Received TimeBloodVenous blood / UnknownVenipuncture / Cpovdyl3606/07/2025 12:27 PM EDT1 12:38 PM EDT Narrative Authorizing ProviderResult TypeResult StatusMohamed Luciana RashidAccelalox BLOOD ORDERABLESFinal ResultPerforming OrganizationAddressCity/State/ZIP CodePhone Number [facility] [address] [place] [address], * Resp Pathogens Panel/SARS CoV-2 (06/07/2025 11:11 AM EDT)ComponentValueRef RangeTest MethodAnalysis TimePerformed AtPathologist SignatureSARS COV 2 BY PCRNot DetectedNot Kneohmbz82/16/2025 12:25 PM [facility] LABORATORYADENOVIRUSNot DetectedNot Qcucpmse24/16/2025 12:25 PM [facility] LABORATORYCORONAVIRUS 229ENot DetectedNot Uppxnhmt52/16/2025 12:25 PM [facility] LABORATORYCORONAVIRUS ZWV4Ajy DetectedNot Kpxvessb16/16/2025 12:25 PM [facility] LABORATORYCORONAVIRUS BF81Beq DetectedNot Pntmmgmb23/16/2025 12:25 PM [facility] LABORATORYCORONAVIRUS HG29Xwn DetectedNot Huhxiknp94/16/2025 12:25 PM EDT [facility] LABORATORYHUMAN METAPNEUVIRUSNot DetectedNot Detected 06/07/2025 12:25 PM [facility] LABORATORYRHINO/ENTEROVIRUSNot DetectedNot Hppbujxb32/16/2025 12:25 PM [facility] INFLUENZA ANot DetectedNot Cpjrixyh98/16/2025 12:25 PM [facility] LABORATORYINFLUENZA BNot DetectedNot Totfbbgw61/16/2025 12:25 PM EDT [facility] LABORATORYPARAINFLUENZA 1Not DetectedNot Detected 06/07/2025 12:25 PM [facility] LABORATORYPARAINFLUENZA 2Not DetectedNot Ezpdeend58/16/2025 12:25 PM [facility] PARAINFLUENZA 3Not DetectedNot Ljiendiv03/16/2025 12:25 PM [facility] LABORATORYPARAINFLUENZA 4Not DetectedNot Lcuwohxp76/16/2025 12:25 PM [facility] LABORATORYRESP SYNCYTIAL VIRUSNot DetectedNot Drxybqvl28/16/2025 12:25 PM [facility] LABORATORYBORD PARAPERTUSSISNot DetectedNot Xmswsmzc57/16/2025 12:25 PM [facility] LABORATORYBORDETELLA PERTUSSISNot DetectedNot Ikukaymu50/16/2025 12:25 PM [facility] LABORATORYCHLAM.PNEUMONIAENot DetectedNot Ctgxmiip44/16/2025 12:25 PM [facility] LABORATORYMYCOPLASMA PNEUMONIAENot DetectedNot Zsrnkwmz50/16/2025 12:25 PM [facility] LABORATORYSpecimen (Source)Anatomical Location / LateralityCollection Method / VolumeCollection TimeReceived TimeSwabNasopharyngeal structure / Hljarqd3406/07/2025 11:11 AM EDT1 11:24 AM EDT [facility] LABORATORY - 06/07/2025 12:25 PM EDT The [...] respiratory tract infection. Authorizing ProviderResult TypeResult StatusAhmed Luciana Butt MDMICROBIOLOGY - GENERAL ORDERABLESFinal ResultPerforming OrganizationAddressCity/State/ZIP Code Phone Number [facility] [address] [place] [address], * MR brain with and without contrast [...] on 06/07/2025 12:03 AM Authorizing ProviderResult TypeResult StatusFaConway Medical Center [facility] MRI ORDERABLES Final Result * EEG VIDEO MONITORING (06/06/2025 10:38 AM EDT)Specimen (Source)Anatomical Location / LateralityCollection Method / VolumeCollection TimeReceived Time Narrative MANUALLY TRANSCRIBED RESULTS - 06/06/2025 1:02 PM EDT Images from the original result were not included. ?? [facility] Video/EEG Monitoring REPORT EEG Service Date(s): 06/06/25 from 06:30 until 10:35 Date of Report: 06/06/25 History: Gianni Babin is 70 y.o. 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 Centrally active medications: ??Keppra Procedure: This video/EEG monitoring was acquired with electrodes placed according to the Gsrvjqimxwohy29-85 electrode placement system,using collodion. The EEG was [...] the referring provider. Jennifer German M.D., Ph.D. 8Th Grade Mathematics Teacher [facility] Authorizing ProviderResult TypeResult Janet Cuenca MDNEUROLOGY ORDERABLES Final ResultPerforming OrganizationAddressCity/State/ZIP CodePhone Number MANUALLY TRANSCRIBED RESULTS * EEG VIDEO MONITORING IN PROGRESS (06/06/2025 6:00 AM EDT)Specimen (Source) Anatomical Location / LateralityCollection Method / VolumeCollection Time Received Time Narrative MANUALLY TRANSCRIBED RESULTS - 06/06/2025 9:20 AM EDT Images from the original result were not included. ?? [facility] Video/EEG Monitoring REPORT EEG Service Date(s): 06/05/25 @ 06:30 until @ 06:30 Date of Report: 06/06/25 History: Gianni Babin is 70 y.o. 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 Centrally active medications: ??Keppra Procedure: This video/EEG monitoring was acquired with electrodes placed according to the Lxbkqlmlseyki55-01 electrode placement system,using collodion. The EEG was [...] the referring provider. Jennifer German M.D., Ph.D. 8Th Grade Mathematics Teacher [facility] Background with right temporal slowing Authorizing ProviderResult TypeResult StatusFapottstown hospital Bang MDNEUROLOGY ORDERABLES Final ResultPerforming OrganizationAddressCity/State/ZIP CodePhone Number MANUALLY TRANSCRIBED RESULTS * EEG VIDEO MONITORING IN PROGRESS (06/05/2025 6:00 AM EDT)Specimen (Source) Anatomical Location / LateralityCollection Method / VolumeCollection Time Received Time Narrative MANUALLY TRANSCRIBED RESULTS - 06/05/2025 10:50 AM EDT Images from the original result were not included. ?? [facility] Video/EEG Monitoring REPORT EEG Service Date(s): 06/05/25 form 04:27 until 06:30 Date of Report: 06/05/25 History: Gianni Babin is 70 y.o. 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 Centrally active medications: ??Keppra Procedure: This video/EEG monitoring was acquired with electrodes placed according to the Yhpcohtrpugqe26-68 electrode placement system,using collodion. The EEG was [...] seizures were recorded. Jennifer German M.D., Ph.D. 8Th Grade Mathematics Teacher [facility] Authorizing ProviderResult TypeResult StatusFapipe Cuenca MDNEUROLOGY ORDERABLES Final ResultPerforming OrganizationAddressCity/State/ZIP CodePhone Number MANUALLY TRANSCRIBED RESULTS * EEG (06/05/2025 4:24 AM EDT)Specimen (Source)Anatomical Location / Laterality Collection Method / VolumeCollection TimeReceived Time Narrative MANUALLY TRANSCRIBED RESULTS - 06/05/2025 10:46 AM EDT Images from the original result were not included. ?? [facility] EEG REPORT EEG Service Date: 06/05/25 Date of Report: 06/05/25 History: Gianni Babin is a 70 y.o. male with altered mental status and right intraparenchymal hemorrhage who is undergoing EEG to evaluate for seizures. Centrally active medications: ??Keppra. Procedure: This EEG was acquired with electrodes placed according to the Dvnzjyuwtegrw54-40 electrode placement system. The EEG was acquired [...] intermittent seizures. ?? Jennifer German M.D., Ph.D. 8Th Grade Mathematics Teacher [facility] Background Authorizing ProviderResult TypeResult StatusSaint [facility] Bang MDNEUROLOGY ORDERABLES Final ResultPerforming OrganizationAddressCity/State/ZIP CodePhone Number MANUALLY TRANSCRIBED RESULTS * (ABNORMAL) Lipid profile (06/05/2025 3:10 AM EDT)ComponentValueRef RangeTest MethodAnalysis TimePerformed AtPathologist ModfiyewiDODIXQBMKLA229409 - 200 mg/dL06/05/2025 4:38 AM [facility] CNEJSNNEIJMPEHYOYVMUFF017 (H)27 - 150 mg/dL06/05/2025 4:38 AM [facility] LABORATORYHDL MTCEVVOFTKF21(L)>39 mg/dL06/05/2025 4:38 AM [facility] LABORATORYComment: HDL <40 mg/dL - High Risk HDL > or = 40mg/dL- Desirable HDL >60 mg/dL - Negative Risk LDL (CALC)77<130 mg/dL06/05/2025 4:38 AM [facility] Comment: LDL <100 mg/dL - Desirable LDL >160 mg/dL - High Risk CHOLESTEROL:HDL5.01.0 - 5.010 4:38 AM [facility] LABORATORYVERY LOW CTNQXPYTSGX20(H)0 - 30 mg/dL06/05/2025 4:38 AM [facility] LABORATORYSpecimen (Source)Anatomical Location / Laterality Collection Method / VolumeCollection TimeReceived TimeBloodVenous blood / UnknownVenipuncture / Tqehxzm6506/05/2025 3:10 AM EDT1 4:10 AM EDT Narrative Authorizing ProviderResult TypeResult StatusFamatthew BARNES BLOOD ORDERABLES Final ResultPerforming OrganizationAddressCity/State/ZIP CodePhone Number [facility] [address] [place] [address], * Type and screen(includes indirect rita) (06/04/2025 7:58 PM EDT) Only the most recent of2 resultswithin the time period is included. ComponentValueRef RangeTest MethodAnalysis TimePerformed AtPathologist Signature ABOO1 9:01 PM [facility] VRONXFUFUCPKYjzdtmcy22/13/2025 9:01 PM [facility] LABORATORYAntibody XrtfntHidzjhov03/13/2025 9:01 PM [facility] LABORATORYSpecimen (Source)Anatomical Location / LateralityCollection Method / VolumeCollection TimeReceived TimeBloodVenous blood / Nkxreck5606/04/2025 7:58 PM EDT1 8:13 PM EDT Narrative Authorizing ProviderResult TypeResult StatusManal [facility] TEST ORDERABLESEdited Result - FinalPerforming OrganizationAddressCity/State/ZIP Code Phone Number [facility] [address] [place] [address], [facility] [address] [place] [address], * ABO Rh Repeat (06/04/2025 6:00 PM EDT) Only the most recent of2 resultswithin the time period is included. ComponentValueRef RangeTest MethodAnalysis TimePerformed AtPathologist Signature ABOO1 6:37 PM [facility] OGFSMPPJGSYNAhouckvj55/13/2025 6:37 PM [facility] LABORATORYSpecimen (Source)Anatomical Location / Laterality Collection Method / VolumeCollection TimeReceived Time06/04/2025 6:00 PM EDT 06/04/2025 6:24 PM EDT Narrative Authorizing ProviderResult TypeResult StatusManal [facility] TEST ORDERABLESFinal ResultPerforming OrganizationAddressCity/State/ZIP CodePhone Number [facility] [address] [place] [address], [place] * Bethea Top On Ice (06/04/2025 6:00 PM EDT)ComponentValueRef RangeTest Method Analysis TimePerformed AtPathologist SignatureExtra TubeAuto Resulted 06/04/2025 7:01 PM [facility] LABORATORYSpecimen (Source) Anatomical Location / LateralityCollection Method / VolumeCollection Time Received TimeBloodVenous blood / Rrsmtyd4806/04/2025 6:00 PM EDT1 6:14 PM EDT Narrative Authorizing ProviderResult TypeResult StatusManal W Luis DOLAB BLOOD ORDERABLES Final ResultPerforming OrganizationAddressCity/State/ZIP CodePhone Number [facility] [address] [place] [address], * Lavender Top (06/04/2025 6:00 PM EDT)ComponentValueRef RangeTest Method Analysis TimePerformed AtPathologist SignatureExtra TubeAuto Resulted 06/04/2025 7:01 PM [facility] LABORATORYSpecimen (Source) Anatomical Location / LateralityCollection Method / VolumeCollection Time Received TimeBloodVenous blood / Wfshnww9106/04/2025 6:00 PM EDT1 6:14 PM EDT Narrative Authorizing ProviderResult TypeResult StatusManal W Luis DOLAB BLOOD ORDERABLES Final ResultPerforming OrganizationAddressCity/State/ZIP CodePhone Number [facility] [address] [place] [address], * PST TOP (06/04/2025 6:00 PM EDT)ComponentValueRef RangeTest MethodAnalysis TimePerformed AtPathologist SignatureExtra TubeAuto Ldsqgtey51/13/2025 7:01 PM [facility] LABORATORYSpecimen (Source)Anatomical Location / LateralityCollection Method / VolumeCollection TimeReceived TimeBloodVenous blood / Szjkfkk8206/04/2025 6:00 PM EDT1 6:14 PM EDT Narrative Authorizing ProviderResult TypeResult StatusManal W Luis DOLAB BLOOD ORDERABLES Final ResultPerforming OrganizationAddressCity/State/ZIP CodePhone Number [facility] [address] [place] [address], * Light Blue Top (06/04/2025 6:00 PM EDT)ComponentValueRef RangeTest Method Analysis TimePerformed AtPathologist SignatureExtra TubeAuto Resulted 06/04/2025 7:01 PM [facility] LABORATORYSpecimen (Source) Anatomical Location / LateralityCollection Method / VolumeCollection Time Received TimeBloodVenous blood / Esytvep5806/04/2025 6:00 PM EDT1 6:14 PM EDT Narrative Authorizing ProviderResult TypeResult StatusManal W Luis DOLAB BLOOD ORDERABLES Final ResultPerforming OrganizationAddressCity/State/ZIP CodePhone Number [facility] [address] [place] [address], * CT abdomen and pelvis with contrast [...] 3:42 PM Authorizing ProviderResult TypeResult StatusJames Vaughn MDFreeman CT ORDERABLES Final Result * CT cervical [...] 2:31 PM EDT)ComponentValueRef RangeTest MethodAnalysis TimePerformed AtPathologist ClmafcnuaRZFVTGBSQI682805 - 480 mg/dL06/04/2025 10:00 PM [facility]TT[facility] LABORATORYSpecimen (Source)Anatomical Location / LateralityCollection Method / VolumeCollection TimeReceived Time BloodVenous blood / UnknownVenipuncture / Htvwmqw2006/04/2025 2:31 PM EDT 06/04/2025 2:44 PM EDT Narrative Authorizing ProviderResult TypeResult Roland BARNES BLOOD ORDERABLES Final ResultPerforming OrganizationAddressCity/State/ZIP CodePhone Number [facility] [address] [place] [address], * CT angiogram carotid (06/04/2025 2:20 PM [...] ??Automated exposure control was utilized. ??The [place] Symptomatic carotid Endarterectomy Trial (NASCET) methodfor calculating [...] projectionreconstructions constructed under concurrent physician supervision on [facility] workstation for evaluation of carotid and vertebral arteries.Automated exposure control was utilized. The [place] Symptomatic carotidEndarterectomy Trial (NASCET) method for calculating [...] MDFreeman CT ORDERABLES Final Result * CT angiogram [...] 2:26 PM Authorizing ProviderResult TypeResult StatusJames Vaughn MDIMFreeman CT ORDERABLES Final Result * (ABNORMAL) Blood gas, venous (06/04/2025 2:19 PM EDT)ComponentValueRef Range Test MethodAnalysis TimePerformed AtPathologist SignatureSample typeVENOUS 06/04/2025 2:21 PM EDSELECT [facility] COLUMBUSpH, Venous7.4187.320 - 7.5958506/04/2025 2:21 PM EDSELECT [facility] COLUMBUSpCO2, Venous 39.235.0 - 50.0 mmHg06/04/2025 2:21 PM [facility] pO2, Bnwcxs8605 - 50 mmHg06/04/2025 2:21 PM EDSELECT [facility] COLUMBUSBase, Excess1.00.0 - 2.0 mmol/L1 2:21 PM EDTPFAIRFIELD MEDICAL CENTERHCO3, Vkjbdw75.3(H)20.0 - 24.0 mmol/L1 2:21 PM EDT [facility]%O2 Saturation, Ieovnc49.0%06/04/2025 2:21 PM EDTPFAIRFIELD MEDICAL CENTERAllen's testN/A1 2:21 PM EDT [facility]PITALample siteN/A1 2:21 PM EDT [facility]Insp. O2 conc.21%06/04/2025 2:21 PM EDT [facility]PITALource Of OxygenRoom Air06/04/2025 2:21 PM EDPROTESTANT HOSPITALpecimen (Source)Anatomical Location / LateralityCollection Method / VolumeCollection TimeReceived TimevenousVenous blood / Sucdcxc3706/04/2025 2:19 PM EDT1 2:21 PM EDT Narrative Authorizing ProviderResult TypeResult StatusJames Vaughn MDLAB BLOOD ORDERABLES Final ResultPerforming OrganizationAddressCity/State/ZIP CodePhone Number [facility] [address] [place] [address], [place] * BB ARC TUBES (06/04/2025 1:45 PM EDT)ComponentValueRef RangeTest Method Analysis TimePerformed AtPathologist SignatureExtra TubeAuto Resulted 06/04/2025 3:01 PM EDTFRE MAE Arguello (Source)Anatomical Location / LateralityCollection Method / VolumeCollection TimeReceived TimeBloodVenous blood / UnknownVenipuncture / Pcrvkhd9406/04/2025 1:45 PM EDT1 1:47 PM EDT Narrative Authorizing ProviderResult TypeResult StatusJames YORKOOD BANK TEST ORDERABLESFinal ResultPerforming OrganizationAddressCity/State/ZIP CodePhone Number [facility] [address] [place] [address], [place] * Lactate w/ Reflex (06/04/2025 1:45 PM EDT)ComponentValueRef RangeTest Method Analysis TimePerformed AtPathologist SignatureLACTATE W/REFLEX1.30.4 - 2.0 mmol/L1 2:09 PM [facility]Prov[facility] (Source)Anatomical Location / LateralityCollection Method / VolumeCollection TimeReceived TimeBloodVenous blood / UnknownVenipuncture / Wxfqjex6906/04/2025 1:45 PM EDT1 1:47 PM EDT Narrative [facility] - 06/04/2025 2:09 PM EDT Result did not trigger repeat Lactate, re-order if needed. Authorizing ProviderResult TypeResult StatusJames BARNES BLOOD ORDERABLES Final ResultPerforming OrganizationAddressCity/State/ZIP CodePhone Number [address] [place] [address], [place] * Ammonia (06/04/2025 1:45 PM EDT)ComponentValueRef RangeTest MethodAnalysis TimePerformed AtPathologist BtqxnzwkhZQAPVIG2862 - 35 umol/L1 2:10 PM EDPROTESTANT HOSPITALpecnortheast [facility] (Source)Anatomical Location / LateralityCollection Method / VolumeCollection TimeReceived TimeBloodVenous blood / UnknownVenipuncture / Jbnbaen2406/04/2025 1:45 PM EDT1 1:47 PM EDT Narrative Authorizing ProviderResult TypeResult StatusJames BARNES BLOOD ORDERABLES Final ResultPerforming OrganizationAddressCity/State/ZIP CodePhone Number [address] [place] [address], [place] * Ethanol (06/04/2025 1:45 PM EDT)ComponentValueRef RangeTest MethodAnalysis TimePerformed AtPathologist SignatureETHANOL<0.010<=0.080 g/dL06/04/2025 2:11 PM [facility] CAMPUSComment: This report is intended for use in clinical monitoring or management of patients. Specimen (Source)Anatomical Location / LateralityCollection Method / Volume Collection TimeReceived TimeBloodVenous blood / UnknownVenipuncture / Unknown 06/04/2025 1:45 PM EDT1 1:47 PM EDT Narrative Authorizing ProviderResult TypeResult StatusJames BARNES BLOOD ORDERABLES Final ResultPerforming OrganizationAddressty/State/ZIP CodePhone Number [address] [place] [address], [place] * (ABNORMAL) Acetaminophen level (06/04/2025 1:45 PM EDT)ComponentValueRef Range Test MethodAnalysis TimePerformed AtPathologist SignatureACETAMINOPHEN6.5(L) 10.0 - 30.0 ug/mL06/04/2025 2:11 PM [facility] Specimen (Source)Anatomical Location / LateralityCollection Method / Volume Collection TimeReceived TimeBloodVenous blood / UnknownVenipuncture / Unknown 06/04/2025 1:45 PM EDT1 1:47 PM EDT Narrative [facility] - 06/04/2025 2:11 PM EDT Reference ranges are for therapeutic limits. Authorizing ProviderResult TypeResult StatusJames Vaughn MDLAB BLOOD ORDERABLES Final ResultPerforming OrganizationAddressty/State/ZIP CodePhone Number [address] [place] [address], [place] * Salicylate level (06/04/2025 1:45 PM EDT)ComponentValueRef RangeTest Method Analysis TimePerformed AtPathologist SignatureSALICYLATE<4.02.0 - 25.0 mg/dL 06/04/2025 2:11 PM [facility]ENTERpecimen (Source) Anatomical Location / LateralityCollection Method / VolumeCollection Time Received TimeBloodVenous blood / UnknownVenipuncture / Blqwcok1706/04/2025 1:45 PM EDT1 1:47 PM EDT Narrative [facility] - 06/04/2025 2:11 PM EDT Reference ranges are for therapeutic limits. Authorizing ProviderResult TypeResult StatusJames Vaughn MDLAB BLOOD ORDERABLES Final ResultPerforming OrganizationAddressCity/State/ZIP CodePhone Number [address] [place] [address], [place] * Light Blue Top (06/04/2025 1:43 PM EDT)ComponentValueRef RangeTest Method Analysis TimePerformed AtPathologist SignatureExtra TubeAuto Resulted 06/04/2025 3:01 PM EDTPMercy Health [facility] Hospital (Source) Anatomical Location / LateralityCollection Method / VolumeCollection Time Received TimeBloodVenous blood / Ojlscvs6506/04/2025 1:43 PM EDT1 1:49 PM EDT Narrative Authorizing ProviderResult TypeResult StatusJames BARNES BLOOD ORDERABLES Final ResultPerforming OrganizationAddressCity/State/ZIP CodePhone Number [address] [place] [address], [place] * APTT (06/04/2025 1:43 PM EDT)ComponentValueRef RangeTest MethodAnalysis Time Performed AtPathologist OgelbepshCMFM5615 - 37 sec06/04/2025 2:54 PM EDT [facility] (Source)Anatomical Location / LateralityCollection Method / VolumeCollection TimeReceived TimeBloodVenous blood / Eloqnqf0106/04/2025 1:43 PM EDT1 1:49 PM EDT Narrative Authorizing ProviderResult TypeResult StatusJames BARNES BLOOD ORDERABLES Final ResultPerforming OrganizationAddressty/State/ZIP CodePhone Number [address] [place] [address], [place] * (ABNORMAL) Protime & INR (06/04/2025 1:43 PM EDT)ComponentValueRef RangeTest MethodAnalysis TimePerformed AtPathologist XtchkxdycGOAUNQV21.7(H)9.8 - 13.2 sec06/04/2025 2:54 PM EDTPFAIRFIELD MEDICAL CENTERINR1.5(H)0.9 - 1.2 06/04/2025 2:54 PM EDTPMercy Health [facility] Hospital (Source) Anatomical Location / LateralityCollection Method / VolumeCollection Time Received TimeBloodVenous blood / Kbfgkmd5206/04/2025 1:43 PM EDT1 1:49 PM EDT Narrative Authorizing ProviderResult TypeResult Roland Vaughn MDLAB BLOOD ORDERABLES Final ResultPerforming OrganizationAddressCity/State/ZIP CodePhone Number [facility] [address] [place] [address], * Critical Care (06/04/2025 1:20 PM EDT) Narrative James Vaughn MD - 06/04/2025 1:20 PM EDT James [...] at another facility ?? Authorizing ProviderResult TypeResult Roland Vaughn MDPROCEDURE/MINOR SURGICAL ORDERABLESFinal Result from Last 3 Months Insurance MemberSubscriberPlan / Payer (Effective 2024-Present)Name:Gianni Babin Relation to Subscriber:SelfName:Gianni Babin Payer ID:[id number] (NAIC) Group ID:[id number] Type:Not on file Address: [id number] * Guarantor: Gianni BabinAccount TypeRelation to PatientDate of PhoneBilling AddressPersonal/TbipogPevt1955 [facility] [place] [address] Advance Directives * Full Code (Latest Code Status on File) Date ActivatedDate RmrpwnkkttkKoufrpoj60/13/2025 7:19 06/22/2025 8:03 PM Care Teams Team MemberRelationshipSpecialtyStart DateEnd Date Clarisa Nunez APRN-ANDREA [address] [place] [address] PCP - GeneralFamily Medicine05/15/25
[2025-06-26 04:13] VITALS: BP 96/58; PULSE 82; O2SAT 94
[2025-06-26 04:38] VITALS: BP 145/77; PULSE 82; O2SAT 97
[2025-06-26] MEDS: 0.9 % SODIUM CHLORIDE 1,000 ML 999 ML IV (05:10)
== END 2025-06-26 06:31 | disposition short-term general hospital (02) ==
PROVIDERS: Emergency Provider Internal Medicine; PCP Family Medicine
DX: T19.1XXA Foreign body in bladder, initial encounter (principal); T83.098A Other mechanical complication of other urinary catheter, initial encounter; I69.320 Aphasia following cerebral infarction; N17.9 Acute kidney failure, unspecified; E11.9 Type 2 diabetes mellitus without complications; Z79.4 Long term (current) use of insulin; K59.00 Constipation, unspecified; W44.8XXA Other foreign body entering into or through a natural orifice, initial encounter
CPT/HCPCS: 36415; 74177; 80053; 85025; 99285; Q9967

== ENCOUNTER 2025-08-02 13:24 | Outpatient (OUT) | payer MEDICARE, SELFPAY ==
--- NOTE | 2025-08-02 13:28 | CT_ITS ---
The [address] [address] Patient Name: DAVID GREEN MRN: [id number] date: 1955 Sex: M Assigned Patient Location: CT Current Patient Location: CT Accession/Order Number: [id number] Exam Date: 08/02/2025 13:35 Report Date: 08/02/2025 19:22 At the request of: NON-STAFF PHYSICIAN MD Procedure: CT head/brain wo con CT BRAIN WITHOUT CONTRAST: CLINICAL HISTORY: Nontraumatic Intracerebral Hemorrhage Cerebral Location COMPARISON: None TECHNIQUE: Contiguous axial unenhanced images were obtained through the brain. This CT exam was performed using one or more following dose reduction techniques: Automated exposure control, adjustment of the mA and/or kV according to patient size, or use of iterative reconstruction technique. FINDINGS: Generalized involutional changes of the brain parenchyma identified. Ikbx-uw-vnfqcvgd periventricular subcortical hypoattenuation suggestive of chronic small vessel ischemic disease. Scattered foci of lacunar type stroke involving both basal ganglia. There are bilateral thalamic areas of chronic lacunar stroke. Within the right anterior lentiform nucleus, there is focal hypoattenuation identified possibly sequelae of prior hemorrhagic versus ischemic insult. No evidence acute bleed, midline shift or mass effect. Intracranial vascular calcifications.. Visualized intraorbital contents appear unremarkable. Mastoid effusions. Frothy secretions within the right sphenoid sinus. Mild ethmoid sinus mucosal thickening. The surrounding soft tissues are normal. CT/CT head/brain wo con IMPRESSION: NO ACUTE INTRACRANIAL ABNORMALITY. CHRONIC MICROVASCULAR CHANGES WITH SCATTERED FOCI OF CHRONIC INFARCT ABOVE. Impression dictated by: Ty Odom M.D. 08/02/2025 7:22 PM Dictation Location: [place] [address] Electronically authenticated by: [id number] Y Date: 08/02/2025 19:22
== END 2025-08-02 13:25 | disposition home or self-care (01) ==
LOC: CT 13:24
PROVIDERS: PCP Family Medicine
DX: I61.9 Nontraumatic intracerebral hemorrhage, unspecified (principal)
CPT/HCPCS: 70450